=== PATIENT | female | born 1965 | race Caucasian/White ===

== ENCOUNTER 2017-10-01 15:43 | Inpatient (IN) | payer OTHER ==
--- NOTE | 2017-10-01 15:56 | PDOC ---
History of Present Illness - General Stated Complaint: DIFFICULTY BREATHING Time Seen by Provider: 10/01/17 15:54 - History of Present Illness Initial Comments: 10/01/17 15:54 52 yo F with h/o DM, Morbid Obesity, schitzophrenia, CHF, hypothyroidism, COPD , chronic resp dz. unspecified hypoxic or hypercapnic, s/p trachesotomy x 2 years BIBA from [facility] with SOB. Pt. alert and non verbal, but communicative at baseline. Is able to endorse yes/no responses. Endorses SOB and [place] beginning this morning. Non mobile, wheelchair bound. Normally 3 liter 02 baseline, with increase to 4 liters within past 12 hours. Normal home duoneb use daily and Lasix 40 mg BID. Denies N/V, F/C, CP, pleuritic chest pain , cough, palpitations, ext. swelling, lightheadedness,weakness, sensory disturbances. Recently d/c'd at [facility] following 4 day admission 2 days ago. Denies h/o IN, stents, or CABG.Denies h/o tobacco use. Past History - Past Medical History Allergies/Adverse Reactions: Allergies Allergy/AdvReac Type Severity Reaction Status Date / Time No Known Allergies Allergy Unverified 10/01/17 21:23 Home Medications: Ambulatory Orders Albuterol 0.083% Nebulizer Teresa [Ventolin 0.083% Nebulizer Soln -] 1 amp NEB Q4H PRN #0 amp 05/22/16 Acetaminophen [Tylenol .Regular Strength -] 650 mg GT Q6H PRN 10/01/17 Albuterol Sulfate Inhaler - [Ventolin Hfa Inhaler -] 2 inh PO Q6H PRN 10/01/17 Aripiprazole 5 mg GT HS 10/01/17 Aspirin 81 mg GT DAILY 10/01/17 Budesonide/Formeterol Fumarate [SYMBICORT 160/4.5mcg -] 1 puff IH BID 10/01/17 Chlorhexidine Gluconate 15 ml MM BID 10/01/17 Escitalopram Oxalate [Lexapro -] 20 mg PO DAILY 10/01/17 Furosemide 20 mg GT DAILY 10/01/17 Gabapentin Liquid [Neurontin Oral Liquid -] 600 mg PO BID 10/01/17 Hydrocortisone 2.5% Topical Cr [Anusol-Hc -] 1 applic CA BID 10/01/17 Insulin Lispro [Humalog] unit SQ TID 10/01/17 Lactobacillus Acidophilus [Bacid -] 1 each GT BID 10/01/17 Levothyroxine [Synthroid -] 25 mcg GT DAILY 10/01/17 Mirtazapine 15 mg GT HS 10/01/17 Montelukast Sodium [Singulair] 10 mg GT DAILY 10/01/17 Omeprazole 40 mg GT DAILY 10/01/17 Paroxetine HCl 10 mg GT HS 10/01/17 Trazodone HCl 50 mg GT HS 10/01/17 Cardiac Disorders: (heart failure- 2014) COPD: Yes CHF: Yes Psychiatric Problems: Yes (bipolar) Seizures: Yes Thyroid Disease: Yes - Suicide/Smoking/Psychosocial Hx Smoking Status: No Smoking History: Current every day smoker Have you smoked in the past 12 months: Yes Number of Cigarettes Smoked Daily: 5 If you are a former smoker, when did you quit?: 2013 'Breaking Loose' booklet given: 05/11/16 Hx Alcohol Use: No Drug/Substance Use Hx: Yes (MARIJUANA) Substance Use Type: Marijuana Hx Substance Use Treatment: No Review of Systems - Review of Systems Comments:: 10/01/17 15:54 GENERAL/CONSTITUTIONAL: No fever or chills. No weakness. HEAD, EYES, EARS, NOSE AND THROAT: No change in vision. No ear pain or discharge. No sore throat. CARDIOVASCULAR: + SOB. No chest pain. RESPIRATORY: No cough, wheezing, or hemoptysis. GASTROINTESTINAL: No nausea, vomiting, diarrhea or constipation. GENITOURINARY: No dysuria, frequency, or change in urination. MUSCULOSKELETAL: No joint or muscle swelling or pain. No neck or back pain. SKIN: No rash NEUROLOGIC: No headache, vertigo, loss of consciousness, or change in strength/ sensation. ENDOCRINE: No increased thirst. No abnormal weight change HEMATOLOGIC/LYMPHATIC: No anemia, easy bleeding, or history of blood clots. ALLERGIC/IMMUNOLOGIC: No hives or skin allergy. *Physical Exam - Physical Exam Comments: 10/01/17 15:55 GENERAL: Awake, alert, and fully oriented, in no acute distress HEAD: No signs of trauma, normocephalic, atraumatic EYES: PERRLA, EOMI, sclera anicteric, conjunctiva clear ENT: Auricles normal inspection, hearing grossly normal, nares patent, oropharynx clear without exudates. Moist mucosa NECK: Trach in place. Normal ROM, supple, no lymphadenopathy, JVD, or masses LUNGS: Coarse diffuse lung sounds with BL exp/insp wheezing and RLL decreased breath sounds. LLL rales. HEART: Regular rate and rhythm, normal S1 and S2, no murmurs, rubs or gallops, peripheral pulses normal and equal bilaterally. ABDOMEN: Soft, distended, nontender, normoactive bowel sounds. No guarding, no rebound. No masses EXTREMITIES : Normal inspection, Normal range of motion, no edema. No clubbing or cyanosis. NEUROLOGICAL: Cranial nerves II through XII grossly intact. Normal speech, no focal sensorimotor deficits SKIN: Warm, Dry, normal turgor, no rashes or lesions noted ED Treatment Course - LABORATORY CBC & Chemistry Diagram: 10/02/17 06:20 10/02/17 06:20 Medical Decision Making - Medical Decision Making 10/01/17 16:41 52 yo F with h/o Schizophrenia, DM, Peg Tube hypothyroidism,Morbid Obesity, Obesity Hypoventilation Syndromes CHF, COPD, chronic resp dz.unspecified hypoxic or hypercapnic, s/p trachesotomy x 1-2 years BIBA from [facility] with SOB, hypoxia RA~80 %, actively being bagged by trach, alert and non verbal, but communicative at baseline. Duonebs x 1. Now stable on BIPAP with vent settings PEEP~5, TV 450, % O2 50, R 10 and endorses yes/no responses. Endorses SOB and [place] beginning this morning. Non mobile, wheelchair bound. Normally 3 liter 02 baseline, with increase to 4 liters within past 12 hours. Normal home duoneb use daily and Lasix 40 mg BID. Denies N/V, F/C, CP, pleuritic chest pain, cough, palpitations, ext. swelling, lightheadedness, weakness, sensory disturbances. Recently d/c'd at [facility] following 4 day admission 2 days ago. Denies cardiac hx IN/CAD, h/o tobacco use. Physical exam with trach tube in place and physical exam with diminished breath sounds at RLL and diffuse coarse BS, with BL insp/exp rhonci. Differential for pt. includes COPD exaccerbation, PNA, Acute on Chronic CHF exaccerbation. Per Medicine physician at [facility]. was d/c'd on 09/26 following 4 day admission for PNA, an acute resp failure. Was given levauqin, vanc. and later switched to unasyn following sputum culture pos for Proteus Mirabilis. D/cd on Augmentin. Physician states that she typically has resp.difficulty following vent weaning/ discharge with improvement in the following days after symptom onset. Patient now stable on BiPap ED Course: CBC, CMP, Cardiac Pr, BNP, aPTT, PT/INR, Lactic Acid Blood Cx, Urine Cx, EKG, CXR 10/01/17 17:35 CBC: Unremarkable. 10/01/17 18:15 Methylpred 125 mg 10/01/17 18:21 VB.29/ 96.2/ 27.7/ 44.7 10/01/17 18:24 Trop: Neg CXR: Decreased pulm and pleural changes. Patient admitted Dr. Kendra garcia/surg inpt. for acute on chronic resp failure/ COPD exacerbation. *DC/Admit/Observation/Transfer Diagnosis at time of Disposition: COPD exacerbation - Discharge Dispostion Admit: Yes - Referrals - Patient Instructions - Post Discharge Activity
[2017-10-01 16:12] VITALS: BMI 46.8
--- NOTE | 2017-10-01 16:18 | PDOC ---
Attending Attestation - Resident Resident Name: Junior Torres - ED Attending Attestation I have performed the following: I have examined & evaluated the patient, The case was reviewed & discussed with the resident, I agree w/resident's findings & plan, Exceptions are as noted - HPI HPI: 10/01/17 16:19 52y F history of hypertension, thyroid disease, COPD status post tracheostomy secondary to respiratory failure, on chronic O2, not then dependent presents for evaluation of shortness of breath. The patient notes she was recently admitted for evaluation of a similar complaint at [facility] and was discharged 4 days ago. The patient states that she was feeling well the last several days beside mild nausea she notes that immediate prior to presentation she started feeling shortness of breath she denies any associated chest pain, abdominal pain, fevers, diaphoresis, leg swelling, hemoptysis. On arrival the patient was being bagged on the trach by EMS she was in no acute distress the patient per EMS O2 sat was ranging in the 80s to 90s. Vitals were otherwise normal per EMS The patient's exam on arrival reveal diminished breath sounds in the right lung , scattered wheezing diffusely with rhonchi. Abdomen is obese no focal tenderness No edema in the lower extremities The patient was placed on BiPAP upon arrival with good management of her symptoms Differential for the patient's symptoms includes COPD exacerbation, possible pleural effusion/infection Will obtain further information from [facility] regarding recent hospitalization Dispo pending 10/01/17 17:43 The patient is currently on the vent she is in no acute distress she is nontachypneic, appears comfortable. Her chest x-ray reveals a small effusion plus minus pneumonia versus atelectasis. No leukocytosis no clinical signs of pneumonia Dr. Torres had discussed with [facility] apparently the patient was admitted and treated for pneumonia was on Levaquin and vancomycin and then changed over to augmentin. awaiting rest of his labs but will consier obs vs admit depending on how th ept appears with pulm consult - Physicial Exam PE: 10/07/17 15:34 see above - Medical Decision Making 10/07/17 15:35 magaly santos
[2017-10-01 17:21] LABS: BASO % 0.2 % (0-2.0); EOS % 0.4 % (0-4.5); HEMATOCRIT 33.8 % (32.4-45.2); HEMOGLOBIN 11.2 GM/dL (10.7-15.3); LYMPH % 11.1 % (8-40); MCH 29.7 pg (25.7-33.7); MCHC 33.1 g/dl (32.0-36.0); MEAN CELL VOLUME 89.8 fl (80-96); MEAN PLT VOLUME 7.5 fl (7.5-11.1); MONO % 4.9 % (3.8-10.2); NEUT % 83.4 % (42.8-82.8); PLATELET COUNT 222 K/MM3 (134-434); RBC 3.76 M/mm3 (3.60-5.2); RDW 16.7 % (11.6-15.6)
[2017-10-01 17:35] LABS: INR 1.1 (0.82-1.09); PROTHROMBIN TIME (PATIENT) 12.4 SEC (9.98-11.88)
[2017-10-01 17:37] LABS: ACTIVATED PTT 28.8 SECONDS (26.9-34.4)
[2017-10-01 17:43] LABS: MAGNESIUM 1.7 mg/dL (1.8-2.4)
[2017-10-01 17:45] LABS: ALK PHOS 93 U/L (45-117)
[2017-10-01 17:46] LABS: VENOUS PH 7.29 (7.32-7.42)
[2017-10-01 17:47] LABS: VENOUS PO2 27.7 mmHg (28-48)
[2017-10-01 17:50] LABS: VENOUS PC02 96.2 mmHg (38-52)
[2017-10-01 17:52] LABS: ALBUMIN 2.8 g/dl (3.4-5.0); BILIRUBIN,TOTAL 0.3 mg/dL (0.2-1.0); BLOOD UREA NITROGEN 10 mg/dL (7-18); CALCIUM 8.5 mg/dL (8.5-10.1); CHLORIDE 94 mmol/L (98-107); CREATININE 0.3 mg/dL (0.55-1.02); GLUCOSE,RANDOM 64 mg/dL (74-106); POTASSIUM 4.8 mmol/L (3.5-5.1); SGOT/AST 14 U/L (15-37); SGPT/ALT 28 U/L (12-78); SODIUM 142 mmol/L (136-145); TOT PROT 6.5 g/dl (6.4-8.2)
[2017-10-01] MEDS ORDERED: methylPREDNISolone NA SUCC 125 MG/2 ML VIAL IVPUSH ONE (18:02)
[2017-10-01 18:20] LABS: ANION GAP 0 (8-16); CO2 48 mmol/L (21-32)
[2017-10-01] MEDS ORDERED: SODIUM CHLORIDE 500 ML IV STA (18:21)
[2017-10-01] MEDS ORDERED: methylPREDNISolone NA SUCC 125 MG/2 ML VIAL ONE (18:24)
[2017-10-01 18:50] LABS: URINE APPEARANCE CLEAR; URINE BILIRUBIN NEGATIVE (NEGATIVE); URINE BLOOD NEGATIVE (NEGATIVE); URINE COLOR YELLOW; URINE GLUCOSE (UA) NEGATIVE (NEGATIVE); URINE KETONE NEGATIVE (NEGATIVE); URINE LEUK ESTERASE TRACE (NEGATIVE); URINE NITRITE NEGATIVE (NEGATIVE); URINE PROTEIN NEGATIVE (NEGATIVE); URINE UROBILINOGEN NEGATIVE mg/dL (0.2-1.0)
[2017-10-01 19:02] LABS: EPI CELLS RARE /HPF (FEW); URINE BACTERIA RARE /hpf (NONE SEEN); URINE MUCUS MANY
--- NOTE | 2017-10-01 21:24 | HP ---
CHIEF COMPLAINT: SOB, hypoxia PCP: [facility] HISTORY OF PRESENT ILLNESS: This is a 52 year old female with a significant past medical history of chronic hypercapneic, hypoxic respiratory failure, trach dependent but not vent depentdent who presented to the ED from [facility] with SOB and ox sat of 80%. Pt reports feeling much better now on vent. Of note, pt was recently hospitalized 09/22-09/26 at [facility] for pna, sputum grew P. Mirabilis and she was on unasyn, dc home on augmentin. [facility] med list does not include augmentin although pt may have completed recommended course. Pt reports that she was dc to [facility] on trach collar only, not vent. [facility] paperwork has vent settings on it, unclear if pt was on vent at [facility]. Pt reports feeling much better on vent here. ER course was notable for: (1) pH 7.29, pCO2 96.2 on vbg (2) WBC 8.0 (3) XCR with blunting of costophrenic angles Recent Travel: pt denies PAST MEDICAL HISTORY: chronic respiratory failure, COPD, CHF, morbid obesity, DM, hypothyoid, bipolar disorder PAST SURGICAL HISTORY: PEG, trach Social History: Smoking: unk Alcohol: unk Drugs: unk Family History: unk Allergies No Known Allergies Allergy (Unverified 10/01/17 21:23) HOME MEDICATIONS: 3 Medication Instructions Recorded Albuterol 0.083% Nebulizer Teresa 1 amp NEB Q4H PRN #0 amp 05/22/16 [Ventolin 0.083% Nebulizer Soln -] Acetaminophen [Tylenol .Regular 650 mg GT Q6H PRN 10/01/17 Strength -] Albuterol Sulfate Inhaler - 2 inh PO Q6H PRN 10/01/17 [Ventolin Hfa Inhaler -] Aripiprazole 5 mg GT HS 10/01/17 Aspirin 81 mg GT DAILY 10/01/17 Budesonide/Formeterol Fumarate 1 puff IH BID 10/01/17 [SYMBICORT 160/4.5mcg -] Chlorhexidine Gluconate 15 ml MM BID 10/01/17 Escitalopram Oxalate [Lexapro -] 20 mg PO DAILY 10/01/17 Furosemide 20 mg GT DAILY 10/01/17 Gabapentin Liquid [Neurontin Oral 600 mg PO BID 10/01/17 Liquid -] Hydrocortisone 2.5% Topical Cr 1 applic OR BID 10/01/17 [Anusol-Hc -] Insulin Lispro [Humalog] unit SQ TID 10/01/17 Lactobacillus Acidophilus [Bacid -] 1 each GT BID 10/01/17 Levothyroxine [Synthroid -] 25 mcg GT DAILY 10/01/17 Mirtazapine 15 mg GT HS 10/01/17 Montelukast Sodium [Singulair] 10 mg GT DAILY 10/01/17 Omeprazole 40 mg GT DAILY 10/01/17 Paroxetine HCl 10 mg GT HS 10/01/17 Trazodone HCl 50 mg GT HS 10/01/17 REVIEW OF SYSTEMS CONSTITUTIONAL: Absent: fever, chills, diaphoresis, generalized weakness, malaise, loss of appetite, weight change HEENT: Absent: rhinorrhea, nasal congestion, throat pain, throat swelling, difficulty swallowing, mouth swelling, ear pain, eye pain, visual changes CARDIOVASCULAR: Absent: chest pain, syncope, palpitations, irregular heart rate, lightheadedness , peripheral edema RESPIRATORY: Present: shortness of breath Absent: cough, orthopnea, wheezing, stridor, hemoptysis GASTROINTESTINAL: Absent: abdominal pain, abdominal distension, nausea, vomiting, diarrhea, constipation, melena, hematochezia GENITOURINARY: Absent: dysuria, frequency, urgency, hesitancy, hematuria, flank pain, genital pain MUSCULOSKELETAL: Absent: myalgia, arthralgia, joint swelling, back pain, neck pain SKIN: Absent: rash, itching, pallor HEMATOLOGIC/IMMUNOLOGIC: Absent: easy bleeding, easy bruising, lymphadenopathy, frequent infections ENDOCRINE: Absent: unexplained weight gain, unexplained weight loss, heat intolerance, cold intolerance NEUROLOGIC: Absent: headache, focal weakness or paresthesias, dizziness, unsteady gait, seizure, mental status changes, bladder or bowel incontinence PSYCHIATRIC: Absent: anxiety, depression, suicidal or homicidal ideation, hallucinations. PHYSICAL EXAMINATION Vital Signs - 24 hr 3 10/01/17 10/01/17 16:00 16:06 Temperature 98.5 F Pulse Rate 85 Respiratory 13 20 Rate Blood Pressure 96/48 O2 Sat by Pulse 92 L Oximetry (%) GENERAL: Awake, alert, and fully oriented, in no acute distress. HEAD: Normal with no signs of trauma. EYES: Pupils equal, round and reactive to light, extraocular movements intact, sclera anicteric, conjunctiva clear. No lid lag. EARS, NOSE, THROAT: Ears normal, nares patent, oropharynx clear without exudates. Moist mucous membranes. NECK: Normal range of motion, supple without lymphadenopathy, JVD, or masses. LUNGS: Breath sounds equal, diminished bilat bases + scattered rhonchi. No wheezes, and no crackles. No accessory muscle use. HEART: Regular rate and rhythm, normal S1 and S2 without murmur, rub or gallop. ABDOMEN: Soft, nontender, not distended, normoactive bowel sounds, no guarding, no rebound, no masses. No hepatomegaly or splenomegaly. MUSCULOSKELETAL: Normal range of motion at all joints. No bony deformities or tenderness. No CVA tenderness. UPPER EXTREMITIES: 2+ pulses, warm, well-perfused. No cyanosis. No clubbing. No peripheral edema. LOWER EXTREMITIES: 2+ pulses, warm, well-perfused. No calf tenderness. No peripheral edema. NEUROLOGICAL: Cranial nerves II-XII intact. Normal speech. Normal gait. PSYCHIATRIC: Cooperative. Good eye contact. Appropriate mood and affect. SKIN: Warm, dry, normal turgor, no rashes or lesions noted, normal capillary refill. Laboratory Results - last 24 hr 3 10/01/17 10/01/17 10/01/17 16:30 16:30 16:30 WBC 8.0 D RBC 3.76 D Hgb 11.2 D Hct 33.8 D MCV 89.8 MCH 29.7 MCHC 33.1 RDW 16.7 H Plt Count 222 MPV 7.5 Neutrophils % 83.4 H D Lymphocytes % 11.1 D Monocytes % 4.9 Eosinophils % 0.4 Basophils % 0.2 PT with INR 12.40 H INR 1.10 PTT (Actin FS) 28.8 VBG pH 7.29 L POC VBG pCO2 96.2 H* POC VBG pO2 27.7 L D Mixed VBG HCO3 44.7 H* Sodium Potassium Chloride Carbon Dioxide Anion Gap BUN Creatinine Creat Clearance w eGFR Random Glucose Lactic Acid Calcium Magnesium Total Bilirubin AST ALT Alkaline Phosphatase Troponin I Total Protein Albumin Urine Color Urine Appearance Urine pH Ur Specific [place] Urine Protein Urine Glucose (UA) Urine Ketones Urine Blood Urine Nitrite Urine Bilirubin Urine Urobilinogen Ur Leukocyte Esterase Urine WBC (Auto) Urine RBC (Auto) Ur Epithelial Cells Urine Bacteria Urine Mucus 3 10/01/17 10/01/17 10/01/17 16:30 17:10 17:10 WBC RBC Hgb Hct MCV MCH MCHC RDW Plt Count MPV Neutrophils % Lymphocytes % Monocytes % Eosinophils % Basophils % PT with INR INR PTT (Actin FS) VBG pH POC VBG pCO2 POC VBG pO2 Mixed VBG HCO3 Sodium 142 Potassium 4.8 Chloride 94 L Carbon Dioxide 48 H Anion Gap 0 L BUN 10 Creatinine 0.3 L Creat Clearance w eGFR > 60 Random Glucose 64 L Lactic Acid 1.2 Calcium 8.5 Magnesium 1.7 L Total Bilirubin 0.3 D AST 14 L ALT 28 Alkaline Phosphatase 93 Troponin I < 0.02 Total Protein 6.5 Albumin 2.8 L Urine Color Urine Appearance Urine pH Ur Specific [place] Urine Protein Urine Glucose (UA) Urine Ketones Urine Blood Urine Nitrite Urine Bilirubin Urine Urobilinogen Ur Leukocyte Esterase Urine WBC (Auto) Urine RBC (Auto) Ur Epithelial Cells Urine Bacteria Urine Mucus 3 Urine Color Yellow 10/01/17 18:40 Urine Appearance Clear 10/01/17 18:40 Urine pH 5.0 (5.0-8.0) 10/01/17 18:40 Ur Specific [place] 1.019 (1.001-1.035) 10/01/17 18:40 Urine Protein Negative (NEGATIVE) 10/01/17 18:40 Urine Glucose (UA) Negative (NEGATIVE) 10/01/17 18:40 Urine Ketones Negative (NEGATIVE) 10/01/17 18:40 Urine Blood Negative (NEGATIVE) 10/01/17 18:40 Urine Nitrite Negative (NEGATIVE) 10/01/17 18:40 Urine Bilirubin Negative (NEGATIVE) 10/01/17 18:40 Ur Leukocyte Esterase Trace (NEGATIVE) 10/01/17 18:40 Urine WBC (Auto) 5 Urine RBC (Auto) 2 Ur Epithelial Cells Rare /HPF (FEW) 10/01/17 18:40 Urine Bacteria Rare /hpf (NONE SEEN) 10/01/17 18:40 Urine Mucus Many 10/01/17 18:40 Radiology REports CXR-official read pending- blunting of costophrenic angles noted by me. ASSESSMENT/PLAN: 52yF with PMH chronic respiratory failure, COPD, CHF, morbid obesity, DM, hypothyoid, bipolar disorder presented to the ED with SOB, hypoxia. Hypercapneic, hypoxic respiratory failure, recent PNA - cont vent, current settings, 450, rate 10, Peep 5 - ABG in am - will start unasyn, unclear if pt finished complete course of treatment. CHF - lasix 40mg IVP x 1 - reassess need for continued IV vs po lasix in am DM - BGM AC/HS with novolog sliding scale - pt does not appear to be on any hypoglycemics at [facility] other than humalog sliding scale - check A1C in am DVT PPX - heparin tid FEN - hold IVF for now - bmp in am - npo for now, pt reports that she takes food by mouth, in addition to GT feed, will stick with GT only for now. Dispo: pt currently requires inpatient management of her emergent condition. Visit type - Emergency Visit Emergency Visit: Yes ED Registration Date: 10/01/17 Care time: The patient presented to the Emergency Department on the above date and was hospitalized for further evaluation of their emergent condition. - New Patient This patient is new to me today: Yes Date on this admission: 10/01/17 - Critical Care Critical Care patient: No Hospitalist Screening - Colonoscopy Questionnaire Colonoscopy Questionnaire: Colonoscopy Questionnaire - Patient: 50 - 75 years old and never had a screening colonoscopy: Unknown History of colon or rectal polyps, or CA: No History of IBD, Crohn's disease or UC: No History of abdominal radiation therapy as a child: No - Relative: 1 with colon or rectal CA, or polyps at age 60 or younger: Unknown Colon or rectal CA diagnosed at age 45 or younger: Unknown Multiple relatives with colon or rectal CA: Unknown - Outcome: Screening Result: Negative Screen
[2017-10-01] MEDS: ARIPiprazole 5 MG TABLET (FP) NR SCH (23:10)
[2017-10-01] MEDS: traZODone HCL 50 MG TABLET (FP) NR SCH (23:30)
[2017-10-01] MEDS: CHLORHEXIDINE GLUCONATE 0.12% 15ML CUP MM SCH (23:30)
[2017-10-01] MEDS ORDERED: FUROSEMIDE 40 MG/4 ML INJECTABLE VIAL IVPUSH ONE (23:30)
[2017-10-01] MEDS: PARoxetine HCL 10 MG TABLET (FP) NR SCH (23:30)
[2017-10-01] MEDS: MIRTAZAPINE 15 MG TABLET (FP) GT SCH (23:30)
[2017-10-01] MEDS: GABAPENTIN 250 MG/5 ML ORAL SOLUTION, 470 ML BOTTLE GT SCH (23:30)
[2017-10-01] MEDS: LACTOBACILLUS ACIDOPHILUS 1 EACH TAB (FP) GT SCH (23:30)
[2017-10-01] MEDS: BUDESONIDE/FORMETEROL FUMARATE 160/4.5 mcg INHALER IH SCH (23:30)
[2017-10-02] MEDS: HYDROCORTISONE 2.5% TOPICAL CREAM 30 GM TUBE RC SCH ×2 (01:40→09:30)
[2017-10-02] MEDS: AMPICILLIN NA/SULBACTAM NA 3 GM in SODIUM CHLORIDE 100 ML IVPB SCH ×2 (02:18→23:39)
[2017-10-02] MEDS: INSULIN SLIDING SCALE (NOVOLOG) 1 VIAL SQ SCH ×5 (05:28→22:17)
[2017-10-02] MEDS ORDERED: HEPARIN NA (PORCINE) 5,000 UNITS/ML 1ML VIAL ONE (06:43)
[2017-10-02] MEDS: LEVOTHYROXINE NA 25 MCG TABLET (FP) GT SCH (06:59)
[2017-10-02] MEDS: HEPARIN NA (PORCINE) 5,000 UNITS/ML 1ML VIAL SQ SCH ×3 (06:59→22:06)
[2017-10-02 07:00] LABS: BASO % 0.1 % (0-2.0); HEMATOCRIT 31.2 % (32.4-45.2); HEMOGLOBIN 10.3 GM/dL (10.7-15.3); LYMPH % 11.3 % (8-40); MCH 29.5 pg (25.7-33.7); MCHC 32.9 g/dl (32.0-36.0); MEAN CELL VOLUME 89.5 fl (80-96); MEAN PLT VOLUME 7.6 fl (7.5-11.1); MONO % 1.9 % (3.8-10.2); NEUT % 86.7 % (42.8-82.8); PLATELET COUNT 213 K/MM3 (134-434); RBC 3.48 M/mm3 (3.60-5.2); RDW 16.8 % (11.6-15.6); WHITE BLOOD COUNT 9.5 K/mm3 (4.0-10.0)
[2017-10-02 07:01] LABS: ANION GAP 10 (8-16); BLOOD UREA NITROGEN 13 mg/dL (7-18); CHLORIDE 95 mmol/L (98-107); CO2 38 mmol/L (21-32); CREATININE 0.3 mg/dL (0.55-1.02); GLUCOSE,RANDOM 87 mg/dL (74-106); MAGNESIUM 1.8 mg/dL (1.8-2.4); PHOSPHOROUS 3.2 mg/dL (2.5-4.9); POTASSIUM 4.6 mmol/L (3.5-5.1); SODIUM 143 mmol/L (136-145)
[2017-10-02] MEDS ORDERED: AMPICILLIN NA/SULBACTAM NA 3 GM in SODIUM CHLORIDE 100 ML IVPB SCH (09:00)
[2017-10-02] MEDS ORDERED: MONTELUKAST NA 10 MG TABLET ONE (09:20)
[2017-10-02] MEDS: BUDESONIDE/FORMETEROL FUMARATE 160/4.5 mcg INHALER IH SCH ×2 (09:30→22:06)
[2017-10-02] MEDS: PANTOPRAZOLE SOD 40 MG SUSPENSION PACKET GT SCH (09:30)
[2017-10-02] MEDS: MONTELUKAST NA 10 MG TABLET GT SCH (09:30)
[2017-10-02] MEDS: FUROSEMIDE 20 MG TABLET (FP) GT SCH (09:30)
[2017-10-02] MEDS: ESCITALOPRAM OXALATE 20 MG TABLET (FP) GT SCH (09:30)
[2017-10-02] MEDS: LACTOBACILLUS ACIDOPHILUS 1 EACH TAB (FP) GT SCH ×2 (09:30→22:05)
[2017-10-02] MEDS: CHLORHEXIDINE GLUCONATE 0.12% 15ML CUP MM SCH ×2 (09:30→22:55)
[2017-10-02] MEDS: GABAPENTIN 250 MG/5 ML ORAL SOLUTION, 470 ML BOTTLE GT SCH ×2 (09:30→22:05)
[2017-10-02] MEDS: ASPIRIN 81 MG CHEWABLE TABLETS GT SCH (09:30)
[2017-10-02] MEDS: ALBUTEROL SO4 0.083% IH SOL 2.5 MG/3 ML VIAL.NEB. NEB PRN (10:05)
--- NOTE | 2017-10-02 10:37 | EKG ---
Test Reason : Blood Pressure : / mmHG Vent. Rate : 072 BPM Atrial Rate : 072 BPM P-R Int : 162 ms QRS Dur : 092 ms QT Int : 394 ms P-R-T Axes : 046 000 033 degrees QTc Int : 431 ms NORMAL SINUS RHYTHM INCOMPLETE RIGHT BUNDLE BRANCH BLOCK POOR R WAVE PROGRESSION Confirmed by HUONG ALEGRE MD ([id number]) on 10/02/2017 10:36:45 AM Referred By: Confirmed By:HUONG ALEGRE MD
--- NOTE | 2017-10-02 12:59 | CON.ID ---
Consult Consult Specialty:: infectious diseases Reason for Consultation:: pneumonia - History of Present Illness Chief Complaint: sob History of Present Illness: 52 year old female with a significant past medical history of chronic hypercapneic, hypoxic respiratory failure, trach dependent but not vent depentdent who presented to the ED from [facility] with SOB and ox sat of 80%. Pt reports feeling much better now on vent. Of note, pt was recently hospitalized 09/22-09/26 at [facility] for pna, sputum grew P. Mirabilis Patient was started on unasyn which was subsequently switched to augmentin on discharge patient states that she started feeling shortness of breath and now on vent she feels much better she denies any other symptoms of chest pain, abdominal pain, fevers, diaphoresis, leg swelling, hemoptysis. Patient is at [facility] and is on a trach collar. - History Source History Provided By: Patient - Past Medical History Pulmonary: Yes: COPD Gastrointestinal: Yes: Other (colon polyps) Psych: Yes: Bipolar - Alcohol/Substance Use Hx Alcohol Use: No History of Substance Use: reports: Marijuana - Smoking History Smoking history: Current every day smoker Have you smoked in the past 12 months: Yes Aproximately how many cigarettes per day: 5 If you are a former smoker, when did you quit?: 2013 Home Medications - Allergies Allergies/Adverse Reactions: Allergies Allergy/AdvReac Type Severity Reaction Status Date / Time No Known Allergies Allergy Unverified 10/01/17 21:23 - Home Medications Home Medications: Ambulatory Orders Albuterol 0.083% Nebulizer Teresa [Ventolin 0.083% Nebulizer Soln -] 1 amp NEB Q4H PRN #0 amp 05/22/16 Acetaminophen [Tylenol .Regular Strength -] 650 mg GT Q6H PRN 10/01/17 Albuterol Sulfate Inhaler - [Ventolin Hfa Inhaler -] 2 inh PO Q6H PRN 10/01/17 Aripiprazole 5 mg GT HS 10/01/17 Aspirin 81 mg GT DAILY 10/01/17 Budesonide/Formeterol Fumarate [SYMBICORT 160/4.5mcg -] 1 puff IH BID 10/01/17 Chlorhexidine Gluconate 15 ml MM BID 10/01/17 Escitalopram Oxalate [Lexapro -] 20 mg PO DAILY 10/01/17 Furosemide 20 mg GT DAILY 10/01/17 Gabapentin Liquid [Neurontin Oral Liquid -] 600 mg PO BID 10/01/17 Hydrocortisone 2.5% Topical Cr [Anusol-Hc -] 1 applic ND BID 10/01/17 Insulin Lispro [Humalog] unit SQ TID 10/01/17 Lactobacillus Acidophilus [Bacid -] 1 each GT BID 10/01/17 Levothyroxine [Synthroid -] 25 mcg GT DAILY 10/01/17 Mirtazapine 15 mg GT HS 10/01/17 Montelukast Sodium [Singulair] 10 mg GT DAILY 10/01/17 Omeprazole 40 mg GT DAILY 10/01/17 Paroxetine HCl 10 mg GT HS 10/01/17 Trazodone HCl 50 mg GT HS 10/01/17 Review of Systems - Review of Systems Constitutional: reports: No Symptoms Eyes: reports: No Symptoms HENT: reports: No Symptoms Neck: reports: No Symptoms Cardiovascular: reports: No Symptoms Respiratory: reports: SOB Gastrointestinal: reports: No Symptoms Genitourinary: reports: No Symptoms Musculoskeletal: reports: No Symptoms Integumentary: reports: No Symptoms Neurological: reports: No Symptoms Endocrine: reports: No Symptoms Hematology/Lymphatic: reports: No Symptoms Psychiatric: reports: No Symptoms Physical Exam Vital Signs: Vital Signs Temperature 99.1 F 10/02/17 09:30 Pulse Rate 56 L 10/02/17 09:35 Respiratory Rate 11 L 10/02/17 09:33 Blood Pressure 125/65 10/02/17 09:30 O2 Sat by Pulse Oximetry (%) 98 10/02/17 09:35 Constitutional: Yes: Well Nourished, No Distress, Calm, Obese Eyes: Yes: Conjunctiva Clear HENT: Yes: Atraumatic, Other (trach in place) Neck: Yes: Supple, Other (tracheostomy) Cardiovascular: Yes: Regular Rate and Rhythm Respiratory: Yes: Mechanically Ventilated, Poor Air Entry Gastrointestinal: Yes: Normal Bowel Sounds, Soft Musculoskeletal: Yes: WNL Edema: LLE: Trace, RLE: Trace Neurological: Yes: Alert, Oriented Psychiatric: Yes: Alert, Oriented Labs: CBC, BMP 10/02/17 06:20 10/02/17 06:20 Imaging - Results Chest X-ray: Report Reviewed, Image Reviewed Assessment/Plan Problem List - Problems (1) Acute respiratory failure Code(s): J96.00 - ACUTE RESPIRATORY FAILURE, UNSP W HYPOXIA OR HYPERCAPNIA (2) COPD exacerbation Code(s): J44.1 - CHRONIC OBSTRUCTIVE PULMONARY DISEASE W (ACUTE) EXACERBATION (3) DVT prophylaxis Code(s): MNA7225 - (4) Morbid obesity Code(s): E66.01 - MORBID (SEVERE) OBESITY DUE TO EXCESS CALORIES (5) Polysubstance (excluding opioids) dependence Code(s): F19.20 - OTHER PSYCHOACTIVE SUBSTANCE DEPENDENCE, UNCOMPLICATED 6) R/O pneumonia looking at the patient symptoms and imaging studies i do not see gross evidence of infection but she was very recently treated for pneumonia it is possible that the patient might not have finished the course and her recent symptoms might be due to untreated pneumonia she is on vent now requiring increased oxygen support could be very well due to infectious process plan will start her on zosyn close monitoring if lot of secretions please send sputum cx resp support await for all cx reports
[2017-10-02] MEDS ORDERED: PIPERACILLIN/TAZOB 3.375 GM 3.375 GM in DEXTROSE 5%-WATER - 50 ML IVPB SCH (14:15)
--- NOTE | 2017-10-02 15:04 | PN ---
Progress Note (short form) - Note Progress Note: Medical coverage for Dr. Josie Rojo Assessment: The patient was seen and examined at the bedside, she states she does not want to be on the vent. She also reports that she is hungry Current Medications Generic Name Dose Route Start Last Admin Trade Name Freq PRN Reason Stop Dose Admin Albuterol Sulfate 1 amp 10/01/17 21:52 10/02/17 10:05 Ventolin 0.083% Nebulizer Soln - NEB 1 amp Q4H PRN Administration SHORT OF BREATH/WHEEZING Aripiprazole 5 mg 10/01/17 22:00 10/01/17 23:10 Abilify NR 5 mg HS NOELLE Administration Aspirin 81 mg 10/02/17 10:00 10/02/17 09:30 Asa - GT 81 mg DAILY NOELLE Administration Budesonide/Formoterol Fumarate 1 puff 10/01/17 22:00 10/02/17 09:30 Symbicort 160/4.5mcg - IH 1 mcg BID NOELLE Administration Chlorhexidine Gluconate 15 ml 10/01/17 22:00 10/02/17 09:30 Peridex - MM 15 ml BID NOELLE Administration Escitalopram Oxalate 20 mg 10/02/17 10:00 10/02/17 09:30 Lexapro - GT 20 mg DAILY NOELLE Administration Furosemide 20 mg 10/02/17 10:00 10/02/17 09:30 Lasix - GT 20 mg DAILY NOELLE Administration Gabapentin 600 mg 10/01/17 22:00 10/02/17 09:30 Neurontin Oral Liquid - GT 600 mg BID NOELLE Administration Heparin Sodium (Porcine) 5,000 unit 10/02/17 06:00 10/02/17 13:53 Heparin - SQ 5,000 unit TID NOELLE Administration Hydrocortisone 1 applic 10/01/17 22:00 10/02/17 09:30 Anusol 2.5% Hc Cream - RC 1 appful BID NOELLE Administration Piperacillin Sod/Tazobactam 50 mls @ 100 mls/hr 10/02/17 18:00 Sod 3.375 gm/ Dextrose IVPB Q8H-IV NOELLE Insulin Aspart 1 vial 10/01/17 22:00 10/02/17 05:28 Novolog Vial Sliding Scale - SQ Not Given HS NOELLE Protocol Insulin Aspart 1 vial 10/02/17 07:00 10/02/17 13:52 Novolog Vial Sliding Scale - SQ Not Given TIDAC NOELLE Protocol Lactobacillus Acidophilus 1 tab 10/01/17 22:00 10/02/17 09:30 Bacid - GT 1 tab BID NOELLE Administration Levothyroxine Sodium 25 mcg 10/02/17 07:00 10/02/17 06:59 Synthroid - GT 25 mcg DAILY@0700 NOELLE Administration Mirtazapine 15 mg 10/01/17 22:00 10/01/17 23:30 Remeron - GT 15 mg HS NOELLE Administration Montelukast Sodium 10 mg 10/02/17 10:00 10/02/17 09:30 Singulair - GT 10 mg DAILY NOELLE Administration Pantoprazole Sodium 40 mg 10/02/17 10:00 10/02/17 09:30 Protonix Packets For Oral Suspension - GT 40 mg DAILY NOELLE Administration Paroxetine HCl 10 mg 10/01/17 22:00 10/01/17 23:30 Paxil - NR 10 mg HS NOELLE Administration Trazodone HCl 50 mg 10/01/17 22:00 10/01/17 23:30 Desyrel - NR 50 mg HS NOELLE Administration Objective: Vital Signs Period Temp Pulse Resp BP Sys/Petersen Pulse Ox Last 24 Hr 98.2 F-99.1 F 56-85 10-20 96-125/48-78 92-99 Physical Exam: General: NAD, mild respiratory distress Lungs: + trach, on vent. B/l rhonchi Heart: RRR, S1S2 Abd: Soft, non-tender, non-distended. Ext: B/l lower extremity edema CBCD WBC 9.5 K/mm3 (4.0-10.0) 10/02/17 06:20 RBC 3.48 M/mm3 (3.60-5.2) L 10/02/17 06:20 Hgb 10.3 GM/dL (10.7-15.3) L 10/02/17 06:20 Hct 31.2 % (32.4-45.2) L 10/02/17 06:20 MCV 89.5 fl (80-96) 10/02/17 06:20 MCHC 32.9 g/dl (32.0-36.0) 10/02/17 06:20 RDW 16.8 % (11.6-15.6) H 10/02/17 06:20 Plt Count 213 K/MM3 (134-434) 10/02/17 06:20 MPV 7.6 fl (7.5-11.1) 10/02/17 06:20 CMP Sodium 143 mmol/L (136-145) 10/02/17 06:20 Potassium 4.6 mmol/L (3.5-5.1) 10/02/17 06:20 Chloride 95 mmol/L (98-107) L 10/02/17 06:20 Carbon Dioxide 38 mmol/L (21-32) H 10/02/17 06:20 Anion Gap 10 (8-16) 10/02/17 06:20 BUN 13 mg/dL (7-18) 10/02/17 06:20 Creatinine 0.3 mg/dL (0.55-1.02) L 10/02/17 06:20 Creat Clearance w eGFR > 60 (>60) 10/01/17 16:30 Random Glucose 87 mg/dL (74-106) 10/02/17 06:20 Calcium 9.0 mg/dL (8.5-10.1) 10/02/17 06:20 Total Bilirubin 0.3 mg/dL (0.2-1.0) D 10/01/17 16:30 AST 14 U/L (15-37) L 10/01/17 16:30 ALT 28 U/L (12-78) 10/01/17 16:30 Alkaline Phosphatase 93 U/L (45-117) 10/01/17 16:30 Total Protein 6.5 g/dl (6.4-8.2) 10/01/17 16:30 Albumin 2.8 g/dl (3.4-5.0) L 10/01/17 16:30 CARDIAC ENZYMES Troponin I < 0.02 ng/ml (0.00-0.05) 10/01/17 17:10 Assessment: This is a 52 year old female with PMHx of chronic hypercapneic hypoxic respiratory failure on trach collar, CHF, morbid obesity, hypothyroidism , bipolar disorder, peg, who presented to the ED with shortness of breath and low oxygen saturation Plan 1) Acute on chronic hypercapneic hypoxic respiratory failure - Etiology workup in progress - Requiring vent assistance here, patient states she does not want vent anymore - Vent settings changed to IMV/PSV [id number] with FiO2 40%, recheck VBG in 20 min - Albuterol nebs - Continue empiric abx at this time, however chest x-ray on admission with decreased pulmonary and pleural changes - Appreciate pulmonary consult - Appreciate ID consult 2) CHF - No evidence of failure - Continue Lasix 3) DM - BGM ACHS - ISS ACHS 4) F/E/N: - Diabetic/sodium controlled diet - Monitor electrolytes 5) Prophylaxis: - Heparin 5,000u sq tid 6) Dispo: - Requires continued inpatient care CODE STATUS: FULL CODE Visit type - Emergency Visit Emergency Visit: Yes ED Registration Date: 10/01/17 Care time: The patient presented to the Emergency Department on the above date and was hospitalized for further evaluation of their emergent condition. - New Patient This patient is new to me today: Yes Date on this admission: 10/02/17 - Critical Care Critical Care patient: No
--- NOTE | 2017-10-02 15:28 | CON.PULM ---
Consult Consult Specialty:: PULMONARY Referred by:: KAR Reason for Consultation:: VENT MANAGEMENT/HYPERCAPNEIC RESP FAILURE - History of Present Illness Chief Complaint: SOB History of Present Illness: 52y F history of hypertension, thyroid disease, COPD status post tracheostomy secondary to respiratory failure. The patient notes she was recently admitted for evaluation of a similar complaint at [facility] and was discharged 4 days ago. The patient states that she was feeling well the last several days beside mild nausea she notes that immediate prior to presentation she started feeling shortness of breath she denies any associated chest pain, abdominal pain, fevers, diaphoresis, leg swelling, hemoptysis. Patient is at [facility] and is on a trach collar. On arrival to the ED the patient was being bagged via trach by EMS. 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 Cardio/Vascular: No: AFIB Pulmonary: Yes: COPD, O2 Dependent, Pneumonia, Previously Intubated, Other ( tracheostomy uses pmv) Gastrointestinal: Yes: Other (colon polyps) Hepatobiliary: No: Cirrhosis Renal/: No: Renal Failure Reproductive: Yes: Postmenopausal Heme/Onc: Yes: Anemia Infectious Disease: No: AIDS Psych: Yes: Bipolar - Alcohol/Substance Use Hx Alcohol Use: No History of Substance Use: reports: Marijuana - Smoking History Smoking history: Former smoker Have you smoked in the past 12 months: Yes Aproximately how many cigarettes per day: 5 If you are a former smoker, when did you quit?: 2013 - Social History Usual Living Arrangement: [facility] of : [facility] History of Recent Travel: No Home Medications - Allergies Allergies/Adverse Reactions: Allergies Allergy/AdvReac Type Severity Reaction Status Date / Time No Known Allergies Allergy Unverified 10/01/17 21:23 - Home Medications Home Medications: Ambulatory Orders Albuterol 0.083% Nebulizer Teresa [Ventolin 0.083% Nebulizer Soln -] 1 amp NEB Q4H PRN #0 amp 05/22/16 Acetaminophen [Tylenol .Regular Strength -] 650 mg GT Q6H PRN 10/01/17 Albuterol Sulfate Inhaler - [Ventolin Hfa Inhaler -] 2 inh PO Q6H PRN 10/01/17 Aripiprazole 5 mg GT HS 10/01/17 Aspirin 81 mg GT DAILY 10/01/17 Budesonide/Formeterol Fumarate [SYMBICORT 160/4.5mcg -] 1 puff IH BID 10/01/17 Chlorhexidine Gluconate 15 ml MM BID 10/01/17 Escitalopram Oxalate [Lexapro -] 20 mg PO DAILY 10/01/17 Furosemide 20 mg GT DAILY 10/01/17 Gabapentin Liquid [Neurontin Oral Liquid -] 600 mg PO BID 10/01/17 Hydrocortisone 2.5% Topical Cr [Anusol-Hc -] 1 applic [place] BID 10/01/17 Insulin Lispro [Humalog] unit SQ TID 10/01/17 Lactobacillus Acidophilus [Bacid -] 1 each GT BID 10/01/17 Levothyroxine [Synthroid -] 25 mcg GT DAILY 10/01/17 Mirtazapine 15 mg GT HS 10/01/17 Montelukast Sodium [Singulair] 10 mg GT DAILY 10/01/17 Omeprazole 40 mg GT DAILY 10/01/17 Paroxetine HCl 10 mg GT HS 10/01/17 Trazodone HCl 50 mg GT HS 10/01/17 Review of Systems - Review of Systems Constitutional: denies: Fever Eyes: denies: Blurred Vision HENT: denies: Difficult Swallowing Neck: denies: Decreased ROM Cardiovascular: denies: Chest Pain Respiratory: reports: SOB Gastrointestinal: denies: Abdominal Pain Genitourinary: denies: Burning Physical Exam Vital Sings: Vital Signs Temperature 98.2 F 10/02/17 13:55 Pulse Rate 58 L 10/02/17 13:55 Respiratory Rate 20 10/02/17 13:55 Blood Pressure 122/67 10/02/17 13:55 O2 Sat by Pulse Oximetry (%) 99 10/02/17 13:55 Constitutional: Yes: Anxious Eyes: Yes: EOM Intact HENT: Yes: Normocephalic Neck: Yes: Trachea Midline Cardiovascular: Yes: Regular Rate and Rhythm, S1, S2 Respiratory: Yes: Diminished (right base) Gastrointestinal: Yes: Soft, Abdomen, Obese Edema: LLE: 1+, RLE: 1+ Labs: CBC, BMP 10/02/17 06:20 10/02/17 06:20 REST REVIEWED Imaging - Results Chest X-ray: Report Reviewed, Image Reviewed Problem List - Problems (1) Acute respiratory failure Code(s): J96.00 - ACUTE RESPIRATORY FAILURE, UNSP W HYPOXIA OR HYPERCAPNIA (2) COPD exacerbation Code(s): J44.1 - CHRONIC OBSTRUCTIVE PULMONARY DISEASE W (ACUTE) EXACERBATION (3) DVT prophylaxis Code(s): EYX9455 - (4) Morbid obesity Code(s): E66.01 - MORBID (SEVERE) OBESITY DUE TO EXCESS CALORIES (5) Polysubstance (excluding opioids) dependence Code(s): F19.20 - OTHER PSYCHOACTIVE SUBSTANCE DEPENDENCE, UNCOMPLICATED Assessment/Plan SNF RESIDENT WITH TRACH DUE TO RESP FAILURE HAS BEEN ON TRACH COLLAR AT [facility]/ ALSO HAS PEG BUT TAKES FULL REGULAR DIET BY MOUTH USES PMV SPEAKING VALVE/TRANSFERRED TO ER DUE TO SOB FOUND TO HAVE HYPERCAPNEIC RESP FAILURE REQUIRING VENT ASSISTANCE ETIOLOGY OF HYPERCAPNEIC RESP FAILURE TO BE DETERMINED/DOES NOT APPEAR SEPTIC AND RADIOGRAGH DOES NOT SUPPORT VAP. VENT SETTINGS CHANGED TO IMV/PSV [id number] WITH FIO2 40% WILL CHECK VBG IN ONE HOUR/FOLLOW UP CXR/BRONCHODILATORS CHECK CULTURES PENDING/NO OBJECTION TO EMPIRIC ABS UNTIL CULTURES ARE BACK F/U CXR/DVT PROHYLAXSIS/ORDER DIET/ PMV WHEN ABLE WILL FOLLOW Marcus ALVA MD
[2017-10-02] MEDS ORDERED: PIPERACILLIN/TAZOB 3.375 GM 50 ML IVPB SCH (18:00)
[2017-10-02] MEDS ORDERED: FLU VACCINE QUAD 60 MCG/0.5 ML (MDV 17-18) IM ONE (18:30)
[2017-10-02] MEDS ORDERED: PNEUMOC 13-VAL CONJ-DIP CRM/PF 0.5 ML DISP.SYRIN IM ONE (18:30)
[2017-10-02] MEDS ORDERED: PT OWN MED DRAWER 7, Y5N ONE (18:31)
[2017-10-02] MEDS: PIPERACILLIN/TAZOB 3.375 GM 3.375 GM in DEXTROSE 5%-WATER - 50 ML IVPB SCH (20:39)
[2017-10-02] MEDS: PARoxetine HCL 10 MG TABLET (FP) NR SCH (22:05)
[2017-10-02] MEDS: ARIPiprazole 5 MG TABLET (FP) NR SCH (22:05)
[2017-10-02] MEDS: MIRTAZAPINE 15 MG TABLET (FP) GT SCH (22:05)
[2017-10-02] MEDS: traZODone HCL 50 MG TABLET (FP) NR SCH (22:05)
[2017-10-03] MEDS: HYDROCORTISONE 2.5% TOPICAL CREAM 30 GM TUBE RC SCH ×3 (01:07→21:28)
[2017-10-03] MEDS: PIPERACILLIN/TAZOB 3.375 GM 3.375 GM in DEXTROSE 5%-WATER - 50 ML IVPB SCH ×3 (03:13→17:21)
[2017-10-03] MEDS: HEPARIN NA (PORCINE) 5,000 UNITS/ML 1ML VIAL SQ SCH ×4 (06:06→21:41)
[2017-10-03] MEDS: INSULIN SLIDING SCALE (NOVOLOG) 1 VIAL SQ SCH ×4 (06:07→21:38)
[2017-10-03] MEDS: LEVOTHYROXINE NA 25 MCG TABLET (FP) GT SCH (06:22)
[2017-10-03 07:53] LABS: ALBUMIN 2.7 g/dl (3.4-5.0); ANION GAP 6 (8-16); BILIRUBIN,TOTAL 0.6 mg/dL (0.2-1.0); BLOOD UREA NITROGEN 20 mg/dL (7-18); CALCIUM 8.4 mg/dL (8.5-10.1); CHLORIDE 97 mmol/L (98-107); CO2 38 mmol/L (21-32); CREATININE 0.6 mg/dL (0.55-1.02); GLUCOSE,RANDOM 68 mg/dL (74-106); POTASSIUM 3.5 mmol/L (3.5-5.1); SGOT/AST 14 U/L (15-37); SGPT/ALT 22 U/L (12-78); SODIUM 141 mmol/L (136-145); TOT PROT 5.7 g/dl (6.4-8.2)
[2017-10-03 07:54] LABS: ALK PHOS 77 U/L (45-117)
[2017-10-03 08:10] LABS: HEMATOCRIT 31.4 % (32.4-45.2); HEMOGLOBIN 10.3 GM/dL (10.7-15.3); MCH 29.2 pg (25.7-33.7); MCHC 32.6 g/dl (32.0-36.0); MEAN CELL VOLUME 89.3 fl (80-96); MEAN PLT VOLUME 7.9 fl (7.5-11.1); PLATELET COUNT 186 K/MM3 (134-434); RBC 3.52 M/mm3 (3.60-5.2); WHITE BLOOD COUNT 6.2 K/mm3 (4.0-10.0)
[2017-10-03] MEDS: PANTOPRAZOLE SOD 40 MG SUSPENSION PACKET GT SCH (11:02)
[2017-10-03] MEDS: ASPIRIN 81 MG CHEWABLE TABLETS GT SCH (11:03)
[2017-10-03] MEDS: FUROSEMIDE 20 MG TABLET (FP) GT SCH ×2 (11:03→11:29)
[2017-10-03] MEDS: ESCITALOPRAM OXALATE 20 MG TABLET (FP) GT SCH (11:03)
[2017-10-03] MEDS: MONTELUKAST NA 10 MG TABLET GT SCH (11:03)
[2017-10-03] MEDS: LACTOBACILLUS ACIDOPHILUS 1 EACH TAB (FP) GT SCH ×2 (11:03→21:27)
[2017-10-03] MEDS: GABAPENTIN 250 MG/5 ML ORAL SOLUTION, 470 ML BOTTLE GT SCH ×2 (11:04→22:03)
[2017-10-03] MEDS: CHLORHEXIDINE GLUCONATE 0.12% 15ML CUP MM SCH ×2 (11:05→22:03)
[2017-10-03] MEDS: BUDESONIDE/FORMETEROL FUMARATE 160/4.5 mcg INHALER IH SCH ×2 (11:05→21:38)
--- NOTE | 2017-10-03 11:07 | PN ---
Progress Note (short form) - Note Progress Note: Awake and alert. Feels better./ Was vented overnight. Asking to be placed back on PMV. Intake & Output 09/30/17 10/01/17 10/02/17 10/03/17 23:59 23:59 23:59 23:59 Intake Total 150 100 Output Total 1600 1200 Balance -1450 -1100 Weight 240 lb 240 lb Last Vital Signs Temp Pulse Resp BP Pulse Ox 98.7 F 63 13 101/53 99 10/03/17 06:00 10/03/17 06:00 10/03/17 10:07 10/03/17 06:00 10/02/17 13:55 Active Medications Albuterol Sulfate (Ventolin 0.083% Nebulizer Soln -) 1 amp NEB Q4H PRN PRN Reason: SHORT OF BREATH/WHEEZING Last Admin: 10/02/17 10:05 Dose: 1 amp Aripiprazole (Abilify) 5 mg NR HS [facility] Last Admin: 10/02/17 22:05 Dose: 5 mg Aspirin (Asa -) 81 mg GT DAILY NOELLE Last Admin: 10/02/17 09:30 Dose: 81 mg Budesonide/Formoterol Fumarate (Symbicort 160/4.5mcg -) 1 puff IH BID NOELLE Last Admin: 10/02/17 22:06 Dose: 1 mcg Chlorhexidine Gluconate (Peridex -) 15 ml MM BID NOELLE Last Admin: 10/02/17 22:55 Dose: 15 ml Escitalopram Oxalate (Lexapro -) 20 mg GT DAILY NOELLE Last Admin: 10/02/17 09:30 Dose: 20 mg Furosemide (Lasix -) 20 mg GT DAILY NOELLE Last Admin: 10/02/17 09:30 Dose: 20 mg Gabapentin (Neurontin Oral Liquid -) 600 mg GT BID NOELLE Last Admin: 10/02/17 22:05 Dose: 600 mg Heparin Sodium (Porcine) (Heparin -) 5,000 unit SQ TID NOELLE Last Admin: 10/03/17 06:06 Dose: Not Given Hydrocortisone (Anusol 2.5% Hc Cream -) 1 applic RC BID NOELLE Last Admin: 10/03/17 01:07 Dose: 1 appful Piperacillin Sod/Tazobactam (Sod 3.375 gm/ Dextrose) 50 mls @ 100 mls/hr IVPB Q8H-IV NOELLE Last Admin: 10/03/17 03:13 Dose: 100 mls/hr Insulin Aspart (Novolog Vial Sliding Scale -) 1 vial SQ HS [facility] PRN Reason: Protocol Last Admin: 10/02/17 22:17 Dose: Not Given Insulin Aspart (Novolog Vial Sliding Scale -) 1 vial SQ TIDAC NOELLE PRN Reason: Protocol Last Admin: 10/03/17 06:07 Dose: Not Given Lactobacillus Acidophilus (Bacid -) 1 tab GT BID [facility] Last Admin: 10/02/17 22:05 Dose: 1 tab Levothyroxine Sodium (Synthroid -) 25 mcg GT DAILY@0700 [facility] Last Admin: 10/03/17 06:22 Dose: 25 mcg Mirtazapine (Remeron -) 15 mg GT [facility] Last Admin: 10/02/17 22:05 Dose: 15 mg Montelukast Sodium (Singulair -) 10 mg GT DAILY [facility] Last Admin: 10/02/17 09:30 Dose: 10 mg Pantoprazole Sodium (Protonix Packets For Oral Suspension -) 40 mg GT DAILY [facility] Last Admin: 10/02/17 09:30 Dose: 40 mg Paroxetine HCl (Paxil -) 10 mg NR [facility] Last Admin: 10/02/17 22:05 Dose: 10 mg Trazodone HCl (Desyrel -) 50 mg NR [facility] Last Admin: 10/02/17 22:05 Dose: 50 mg Constitutional: Yes: Awake and alert, NAD Eyes: Yes: EOM Intact HENT: Yes: Normocephalic Neck: Yes: Trachea Midline Cardiovascular: Yes: Regular Rate and Rhythm, S1, S2 Respiratory: Yes: Diminished at the bases Gastrointestinal: Yes: Soft, Abdomen, Obese Edema: LLE: 1+, RLE: 1+ Labs: Laboratory Results - last 24 hr 10/02/17 10/02/17 10/02/17 13:50 17:44 22:12 WBC RBC Hgb Hct MCV MCH MCHC RDW Plt Count MPV Sodium Potassium Chloride Carbon Dioxide Anion Gap BUN Creatinine Creat Clearance w eGFR POC Glucometer 112.12793 92 157 Random Glucose Calcium Total Bilirubin AST ALT Alkaline Phosphatase Total Protein Albumin 10/03/17 10/03/17 10/03/17 05:44 06:00 06:00 WBC 6.2 D RBC 3.52 L Hgb 10.3 L Hct 31.4 L MCV 89.3 MCH 29.2 MCHC 32.6 RDW 18.0 H Plt Count 186 MPV 7.9 Sodium 141 Potassium 3.5 Chloride 97 L Carbon Dioxide 38 H Anion Gap 6 L BUN 20 H Creatinine 0.6 Creat Clearance w eGFR > 60 POC Glucometer 94 Random Glucose 68 L Calcium 8.4 L Total Bilirubin 0.6 D AST 14 L ALT 22 Alkaline Phosphatase 77 Total Protein 5.7 L Albumin 2.7 L Problem List - Problems (1) Acute respiratory failure Code(s): J96.00 - ACUTE RESPIRATORY FAILURE, UNSP W HYPOXIA OR HYPERCAPNIA (2) COPD exacerbation Code(s): J44.1 - CHRONIC OBSTRUCTIVE PULMONARY DISEASE W (ACUTE) EXACERBATION (3) DVT prophylaxis Code(s): QAC3961 - (4) Morbid obesity Code(s): E66.01 - MORBID (SEVERE) OBESITY DUE TO EXCESS CALORIES (5) Polysubstance (excluding opioids) dependence Code(s): F19.20 - OTHER PSYCHOACTIVE SUBSTANCE DEPENDENCE, UNCOMPLICATED Assessment/Plan Trial of Trach collar VTE prophylaxis PMV as tolerated Would D/C ABX Dr Lagos
[2017-10-03] MEDS: PANTOPRAZOLE 40 MG TABLET (FP) PO SCH (11:35)
--- NOTE | 2017-10-03 12:36 | PN ---
Progress Note, Physician History of Present Illness: patient seen and examined. Chart reviewed. Comfortable. Eating lunch. Feels better - Current Medication List Current Medications: Active Medications Albuterol Sulfate (Ventolin 0.083% Nebulizer Soln -) 1 amp NEB Q4H PRN PRN Reason: SHORT OF BREATH/WHEEZING Last Admin: 10/02/17 10:05 Dose: 1 amp Aripiprazole (Abilify) 5 mg NR HS [facility] Last Admin: 10/02/17 22:05 Dose: 5 mg Aspirin (Asa -) 81 mg GT DAILY [facility] Last Admin: 10/03/17 11:03 Dose: 81 mg Budesonide/Formoterol Fumarate (Symbicort 160/4.5mcg -) 1 puff IH BID NOELLE Last Admin: 10/03/17 11:05 Dose: 1 puff Chlorhexidine Gluconate (Peridex -) 15 ml MM BID [facility] Last Admin: 10/03/17 11:05 Dose: 15 ml Escitalopram Oxalate (Lexapro -) 20 mg GT DAILY [facility] Last Admin: 10/03/17 11:03 Dose: 20 mg Furosemide (Lasix -) 20 mg GT DAILY [facility] Last Admin: 10/03/17 11:29 Dose: Not Given Gabapentin (Neurontin Oral Liquid -) 600 mg GT BID [facility] Last Admin: 10/03/17 11:04 Dose: 600 mg Heparin Sodium (Porcine) (Heparin -) 5,000 unit SQ TID [facility] Last Admin: 10/03/17 06:06 Dose: Not Given Hydrocortisone (Anusol 2.5% Hc Cream -) 1 applic RC BID [facility] Last Admin: 10/03/17 11:15 Dose: 1 appful Piperacillin Sod/Tazobactam (Sod 3.375 gm/ Dextrose) 50 mls @ 100 mls/hr IVPB Q8H-IV NOELLE Last Admin: 10/03/17 11:14 Dose: 100 mls/hr Insulin Aspart (Novolog Vial Sliding Scale -) 1 vial SQ HS NOELLE PRN Reason: Protocol Last Admin: 10/02/17 22:17 Dose: Not Given Insulin Aspart (Novolog Vial Sliding Scale -) 1 vial SQ TIDAC NOELLE PRN Reason: Protocol Last Admin: 10/03/17 11:40 Dose: Not Given Lactobacillus Acidophilus (Bacid -) 1 tab GT BID NOELLE Last Admin: 10/03/17 11:03 Dose: 1 tab Levothyroxine Sodium (Synthroid -) 25 mcg GT DAILY@0700 [facility] Last Admin: 10/03/17 06:22 Dose: 25 mcg Mirtazapine (Remeron -) 15 mg GT HS [facility] Last Admin: 10/02/17 22:05 Dose: 15 mg Montelukast Sodium (Singulair -) 10 mg GT DAILY [facility] Last Admin: 10/03/17 11:03 Dose: 10 mg Pantoprazole Sodium (Protonix -) 40 mg PO DAILY [facility] Last Admin: 10/03/17 11:35 Dose: 40 mg Paroxetine HCl (Paxil -) 10 mg NR [facility] Last Admin: 10/02/17 22:05 Dose: 10 mg Trazodone HCl (Desyrel -) 50 mg NR [facility] Last Admin: 10/02/17 22:05 Dose: 50 mg - Objective Vital Signs: Vital Signs Temperature 98.7 F 10/03/17 06:00 Pulse Rate 63 10/03/17 06:00 Respiratory Rate 13 10/03/17 10:07 Blood Pressure 101/53 10/03/17 06:00 O2 Sat by Pulse Oximetry (%) 99 10/02/17 13:55 Constitutional: Yes: No Distress, Calm Eyes: Yes: Conjunctiva Clear Neck: Yes: Supple, Other (Status post trach--- went) Respiratory: Yes: Diminished Gastrointestinal: Yes: Soft Edema: LLE: 1+, RLE: 1+ Neurological: Yes: Alert Psychiatric: Yes: Alert Labs: CBC, BMP 10/03/17 06:00 10/03/17 06:00 INR, PTT INR 1.10 (0.82-1.09) 10/01/17 16:30 Problem List - Problems (1) Acute respiratory failure Code(s): J96.00 - ACUTE RESPIRATORY FAILURE, UNSP W HYPOXIA OR HYPERCAPNIA (2) Morbid obesity Code(s): E66.01 - MORBID (SEVERE) OBESITY DUE TO EXCESS CALORIES Assessment/Plan clinically better. Meds reviewed. All consults noted and appreciated. I agree that antibody should be discontinued. Await ID input. We will follow. Discussed with nursing staff also.
--- NOTE | 2017-10-03 13:31 | PN ---
Progress Note, Physician History of Present Illness: Infectious Disease f/u: Pt seen and examined. Events noted, lab/imaging results reviewed. Temp 99.6F currently. She has been on vent support. Denies any new complaints. - Current Medication List Current Medications: Active Medications Albuterol Sulfate (Ventolin 0.083% Nebulizer Soln -) 1 amp NEB Q4H PRN PRN Reason: SHORT OF BREATH/WHEEZING Last Admin: 10/02/17 10:05 Dose: 1 amp Aripiprazole (Abilify) 5 mg NR HS [facility] Last Admin: 10/02/17 22:05 Dose: 5 mg Aspirin (Asa -) 81 mg GT DAILY [facility] Last Admin: 10/03/17 11:03 Dose: 81 mg Budesonide/Formoterol Fumarate (Symbicort 160/4.5mcg -) 1 puff IH BID [facility]EL[facility] Last Admin: 10/03/17 11:05 Dose: 1 puff Chlorhexidine Gluconate (Peridex -) 15 ml MM BID [facility] Last Admin: 10/03/17 11:05 Dose: 15 ml Escitalopram Oxalate (Lexapro -) 20 mg GT DAILY [facility] Last Admin: 10/03/17 11:03 Dose: 20 mg Furosemide (Lasix -) 20 mg GT DAILY [facility] Last Admin: 10/03/17 11:29 Dose: Not Given Gabapentin (Neurontin Oral Liquid -) 600 mg GT BID [facility] Last Admin: 10/03/17 11:04 Dose: 600 mg Heparin Sodium (Porcine) (Heparin -) 5,000 unit SQ TID [facility] Last Admin: 10/03/17 06:06 Dose: Not Given Hydrocortisone (Anusol 2.5% Hc Cream -) 1 applic RC BID [facility] Last Admin: 10/03/17 11:15 Dose: 1 appful Piperacillin Sod/Tazobactam (Sod 3.375 gm/ Dextrose) 50 mls @ 100 mls/hr IVPB Q8H-IV [facility] Last Admin: 10/03/17 11:14 Dose: 100 mls/hr Insulin Aspart (Novolog Vial Sliding Scale -) 1 vial SQ HS [facility] PRN Reason: Protocol Last Admin: 10/02/17 22:17 Dose: Not Given Insulin Aspart (Novolog Vial Sliding Scale -) 1 vial SQ TIDAC NOELLE PRN Reason: Protocol Last Admin: 03/17/18 11:40 Dose: Not Given Lactobacillus Acidophilus (Bacid -) 1 tab GT BID [facility] Last Admin: 10/03/17 11:03 Dose: 1 tab Levothyroxine Sodium (Synthroid -) 25 mcg GT DAILY@0700 [facility] Last Admin: 10/03/17 06:22 Dose: 25 mcg Mirtazapine (Remeron -) 15 mg GT [facility] Last Admin: 10/02/17 22:05 Dose: 15 mg Montelukast Sodium (Singulair -) 10 mg GT DAILY [facility] Last Admin: 10/03/17 11:03 Dose: 10 mg Pantoprazole Sodium (Protonix -) 40 mg PO DAILY [facility] Last Admin: 10/03/17 11:35 Dose: 40 mg Paroxetine HCl (Paxil -) 10 mg NR [facility] Last Admin: 10/02/17 22:05 Dose: 10 mg Trazodone HCl (Desyrel -) 50 mg NR [facility] Last Admin: 10/02/17 22:05 Dose: 50 mg - Objective Vital Signs: Vital Signs Temperature 98.2 F 10/03/17 10:00 Pulse Rate 71 10/03/17 10:00 Respiratory Rate 13 10/03/17 10:07 Blood Pressure 99/51 10/03/17 10:00 O2 Sat by Pulse Oximetry (%) 99 10/02/17 13:55 Constitutional: Yes: No Distress Cardiovascular: Yes: Regular Rate and Rhythm Respiratory: Yes: Diminished (at bases) Gastrointestinal: Yes: Normal Bowel Sounds, Soft, Abdomen, Obese Genitourinary: Yes: WNL Extremities: Yes: WNL Integumentary: Yes: WNL Neurological: Yes: Alert, Oriented Labs: CBC, BMP 10/03/17 06:00 10/03/17 06:00 INR, PTT INR 1.10 (0.82-1.09) 10/01/17 16:30 Microbiology 10/01/17 18:40 Urine - Urine - Catheterized Urine Culture - Final NO GROWTH OBTAINED 10/02/17 02:22 Blood - Peripheral Venous Blood Culture - Preliminary NO GROWTH OBTAINED AFTER 24 HOURS, INCUBATION TO CONTINUE FOR 4 DAYS. 10/02/17 02:22 Blood - Peripheral Venous Blood Culture - Preliminary NO GROWTH OBTAINED AFTER 24 HOURS, INCUBATION TO CONTINUE FOR 4 DAYS. - ....Imaging Chest X-ray: Report Reviewed, Image Reviewed Problem List - Problems (1) Acute respiratory failure Code(s): J96.00 - ACUTE RESPIRATORY FAILURE, UNSP W HYPOXIA OR HYPERCAPNIA (2) COPD exacerbation Code(s): J44.1 - CHRONIC OBSTRUCTIVE PULMONARY DISEASE W (ACUTE) EXACERBATION (3) CHF (congestive heart failure) Code(s): I50.9 - HEART FAILURE, UNSPECIFIED (4) Morbid obesity Code(s): E66.01 - MORBID (SEVERE) OBESITY DUE TO EXCESS CALORIES (5) Polysubstance (excluding opioids) dependence Code(s): F19.20 - OTHER PSYCHOACTIVE SUBSTANCE DEPENDENCE, UNCOMPLICATED Assessment/Plan 52 y.o. female with COPD, obesity, respiratory failure s/p tracheostomy recently hospitalized and diagnosed with PNA and was on antibiotics now admitted for hypoxemia and placed on vent support COPD Exacerbation Questionable PNA -- on Zosyn empirically, send sputum for culture if secretions noted -- will consider d/c antibiotics if becomes more stable -- continue monitor respiratory status -- pulmonary following
[2017-10-03] MEDS ORDERED: PT OWN MED DRAWER 7, Y5N ONE ×3 (17:12→21:31)
[2017-10-03] MEDS: traZODone HCL 50 MG TABLET (FP) NR SCH (21:27)
[2017-10-03] MEDS: MIRTAZAPINE 15 MG TABLET (FP) GT SCH (21:27)
[2017-10-03] MEDS: PARoxetine HCL 10 MG TABLET (FP) NR SCH (21:27)
[2017-10-03] MEDS: ARIPiprazole 5 MG TABLET (FP) NR SCH (22:03)
[2017-10-04] MEDS: PIPERACILLIN/TAZOB 3.375 GM 3.375 GM in DEXTROSE 5%-WATER - 50 ML IVPB SCH ×3 (01:03→17:47)
[2017-10-04] MEDS: ACETAMINOPHEN 325 MG TABLET (FP) PO PRN (01:32)
[2017-10-04] MEDS: HEPARIN NA (PORCINE) 5,000 UNITS/ML 1ML VIAL SQ SCH ×3 (05:54→21:44)
[2017-10-04] MEDS: LEVOTHYROXINE NA 25 MCG TABLET (FP) GT SCH (06:00)
[2017-10-04] MEDS: INSULIN SLIDING SCALE (NOVOLOG) 1 VIAL SQ SCH ×4 (06:01→21:44)
[2017-10-04] MEDS: ALBUTEROL SO4 0.083% IH SOL 2.5 MG/3 ML VIAL.NEB. NEB PRN (07:25)
--- NOTE | 2017-10-04 10:05 | PN ---
Progress Note, Physician History of Present Illness: patient seen and examined. Chart reviewed. Comfortable. remains vent dependent. Alert and awake. Afebrile. - Current Medication List Current Medications: Active Medications Acetaminophen (Tylenol -) 650 mg PO Q6H PRN PRN Reason: PAIN OR FEVER Last Admin: 10/04/17 01:32 Dose: 650 mg Albuterol Sulfate (Ventolin 0.083% Nebulizer Soln -) 1 amp NEB Q4H PRN PRN Reason: SHORT OF BREATH/WHEEZING Last Admin: 10/04/17 07:25 Dose: 1 amp Aripiprazole (Abilify) 5 mg NR HS [facility] [place] Last Admin: 10/03/17 22:03 Dose: 5 mg Aspirin (Asa -) 81 mg GT DAILY [facility] [place] Last Admin: 10/03/17 11:03 Dose: 81 mg Budesonide/Formoterol Fumarate (Symbicort 160/4.5mcg -) 1 puff IH BID [facility] [place] Last Admin: 10/03/17 21:38 Dose: 1 puff Chlorhexidine Gluconate (Peridex -) 15 ml MM BID [facility] Last Admin: 10/03/17 22:03 Dose: 15 ml Escitalopram Oxalate (Lexapro -) 20 mg GT DAILY [facility] Last Admin: 10/03/17 11:03 Dose: 20 mg Furosemide (Lasix -) 20 mg GT DAILY [facility] [place] Last Admin: 10/03/17 11:29 Dose: Not Given Gabapentin (Neurontin Oral Liquid -) 600 mg GT BID [facility] Last Admin: 10/03/17 22:03 Dose: 600 mg Heparin Sodium (Porcine) (Heparin -) 5,000 unit SQ TID [facility] [place] Last Admin: 10/04/17 05:54 Dose: Not Given Hydrocortisone (Anusol 2.5% Hc Cream -) 1 applic RC BID [facility] [place] Last Admin: 10/03/17 21:28 Dose: 1 appful Piperacillin Sod/Tazobactam (Sod 3.375 gm/ Dextrose) 50 mls @ 100 mls/hr IVPB Q8H-IV [facility] Last Admin: 10/04/17 01:03 Dose: 100 mls/hr Insulin Aspart (Novolog Vial Sliding Scale -) 1 vial SQ HS [facility] PRN Reason: Protocol Last Admin: 10/03/17 21:38 Dose: Not Given Insulin Aspart (Novolog Vial Sliding Scale -) 1 vial SQ TIDAC [facility] PRN Reason: Protocol Last Admin: 10/04/17 06:01 Dose: Not Given Lactobacillus Acidophilus (Bacid -) 1 tab GT BID [facility] [place] Last Admin: 10/03/17 21:27 Dose: 1 tab Levothyroxine Sodium (Synthroid -) 25 mcg GT DAILY@0700 [facility] Last Admin: 10/04/17 06:00 Dose: 25 mcg Mirtazapine (Remeron -) 15 mg GT HS [facility] Last Admin: 10/03/17 21:27 Dose: 15 mg Montelukast Sodium (Singulair -) 10 mg GT DAILY [facility] [place] Last Admin: 10/03/17 11:03 Dose: 10 mg Pantoprazole Sodium (Protonix -) 40 mg PO DAILY [facility] [place] Last Admin: 10/03/17 11:35 Dose: 40 mg Paroxetine HCl (Paxil -) 10 mg NR [facility] Last Admin: 10/03/17 21:27 Dose: 10 mg Trazodone HCl (Desyrel -) 50 mg NR [facility] Last Admin: 10/03/17 21:27 Dose: 50 mg - Objective Vital Signs: Vital Signs Temperature 98.4 F 10/04/17 06:00 Pulse Rate 56 L 10/04/17 06:00 Respiratory Rate 14 10/04/17 06:32 Blood Pressure 107/68 10/04/17 06:00 O2 Sat by Pulse Oximetry (%) 99 10/02/17 13:55 Constitutional: Yes: No Distress, Calm Eyes: Yes: Conjunctiva Clear Neck: Yes: Other (Status post trach--vent) Cardiovascular: Yes: Regular Rate and Rhythm Respiratory: Yes: Diminished Gastrointestinal: Yes: Soft Edema: No Neurological: Yes: Alert Psychiatric: Yes: Alert Labs: CBC, BMP 10/03/17 06:00 10/03/17 06:00 INR, PTT INR 1.10 (0.82-1.09) 10/01/17 16:30 Problem List - Problems (1) Acute respiratory failure Code(s): J96.00 - ACUTE RESPIRATORY FAILURE, UNSP W HYPOXIA OR HYPERCAPNIA (2) Morbid obesity Code(s): E66.01 - MORBID (SEVERE) OBESITY DUE TO EXCESS CALORIES Assessment/Plan clinically stable Meds reviewed. All consults noted and appreciated. antibiotics per ID Weaning trial Taper steroids slowly. Will follow.
[2017-10-04] MEDS ORDERED: PT OWN MED DRAWER 7, Y5N ONE ×4 (10:06→23:36)
[2017-10-04] MEDS: ASPIRIN 81 MG CHEWABLE TABLETS GT SCH (11:00)
[2017-10-04] MEDS: ESCITALOPRAM OXALATE 20 MG TABLET (FP) GT SCH (11:01)
[2017-10-04] MEDS: LACTOBACILLUS ACIDOPHILUS 1 EACH TAB (FP) GT SCH ×2 (11:01→21:43)
[2017-10-04] MEDS: MONTELUKAST NA 10 MG TABLET GT SCH (11:01)
[2017-10-04] MEDS: PANTOPRAZOLE 40 MG TABLET (FP) PO SCH (11:01)
[2017-10-04] MEDS: CHLORHEXIDINE GLUCONATE 0.12% 15ML CUP MM SCH ×2 (11:06→21:45)
[2017-10-04] MEDS: BUDESONIDE/FORMETEROL FUMARATE 160/4.5 mcg INHALER IH SCH ×2 (11:08→21:45)
[2017-10-04] MEDS: HYDROCORTISONE 2.5% TOPICAL CREAM 30 GM TUBE RC SCH ×2 (11:14→21:43)
[2017-10-04] MEDS: ALBUTEROL SO4 2.5/IPRATROPIUM 0.5 INH SOL 3 ML VIAL.NEB. NEB SCH ×3 (11:40→20:52)
--- NOTE | 2017-10-04 11:42 | PN ---
Progress Note (short form) - Note Progress Note: Awake and alert. Now on CPAP trial with PS 15 cm H2O. Low minute ventilation and feeling SOB. Reports that she heard herself wheezing overnight. Intake & Output 10/01/17 10/02/17 10/03/17 10/04/17 23:59 23:59 23:59 23:59 Intake Total 150 1600 250 Output Total 1600 1200 1300 Balance -1450 400 -1050 Weight 240 lb 240 lb 291 lb 0.8 oz Last Vital Signs Temp Pulse Resp BP Pulse Ox 98.4 F 56 L 14 107/68 99 10/04/17 06:00 10/04/17 06:00 10/04/17 06:32 10/04/17 06:00 10/02/17 13:55 Active Medications Acetaminophen (Tylenol -) 650 mg PO Q6H PRN PRN Reason: PAIN OR FEVER Last Admin: 10/04/17 01:32 Dose: 650 mg Albuterol Sulfate (Ventolin 0.083% Nebulizer Soln -) 1 amp NEB Q4H PRN PRN Reason: SHORT OF BREATH/WHEEZING Last Admin: 10/04/17 07:25 Dose: 1 amp Aripiprazole (Abilify) 5 mg NR HS [facility] Last Admin: 10/03/17 22:03 Dose: 5 mg Aspirin (Asa -) 81 mg GT DAILY [facility] Last Admin: 10/04/17 11:00 Dose: 81 mg Budesonide/Formoterol Fumarate (Symbicort 160/4.5mcg -) 1 puff IH BID [facility] Last Admin: 10/04/17 11:08 Dose: 1 puff Chlorhexidine Gluconate (Peridex -) 15 ml MM BID [facility] Last Admin: 10/04/17 11:06 Dose: 15 ml Escitalopram Oxalate (Lexapro -) 20 mg GT DAILY [facility] Last Admin: 10/04/17 11:01 Dose: 20 mg Furosemide (Lasix -) 20 mg GT DAILY [facility] Last Admin: 10/03/17 11:29 Dose: Not Given Gabapentin (Neurontin Oral Liquid -) 600 mg GT BID [facility] Last Admin: 10/03/17 22:03 Dose: 600 mg Heparin Sodium (Porcine) (Heparin -) 5,000 unit SQ TID [facility] Last Admin: 10/04/17 05:54 Dose: Not Given Hydrocortisone (Anusol 2.5% Hc Cream -) 1 applic RC BID [facility] Last Admin: 10/04/17 11:14 Dose: 1 appful Piperacillin Sod/Tazobactam (Sod 3.375 gm/ Dextrose) 50 mls @ 100 mls/hr IVPB Q8H-IV [facility] Last Admin: 10/04/17 11:00 Dose: 100 mls/hr Insulin Aspart (Novolog Vial Sliding Scale -) 1 vial SQ HS [facility] PRN Reason: Protocol Last Admin: 10/03/17 21:38 Dose: Not Given Insulin Aspart (Novolog Vial Sliding Scale -) 1 vial SQ TIDAC [facility] PRN Reason: Protocol Last Admin: 10/04/17 06:01 Dose: Not Given Lactobacillus Acidophilus (Bacid -) 1 tab GT BID [facility] Last Admin: 10/04/17 11:01 Dose: 1 tab Levothyroxine Sodium (Synthroid -) 25 mcg GT DAILY@0700 [facility] Last Admin: 10/04/17 06:00 Dose: 25 mcg Mirtazapine (Remeron -) 15 mg GT [facility] Last Admin: 10/03/17 21:27 Dose: 15 mg Montelukast Sodium (Singulair -) 10 mg GT DAILY [facility] Last Admin: 10/04/17 11:01 Dose: 10 mg Pantoprazole Sodium (Protonix -) 40 mg PO DAILY [facility] Last Admin: 10/04/17 11:01 Dose: 40 mg Paroxetine HCl (Paxil -) 10 mg NR [facility] Last Admin: 10/03/17 21:27 Dose: 10 mg Trazodone HCl (Desyrel -) 50 mg NR [facility] Last Admin: 10/03/17 21:27 Dose: 50 mg Constitutional: Yes: Awake and alert, NAD Eyes: Yes: EOM Intact HENT: Yes: Normocephalic Neck: Yes: Trachea Midline Cardiovascular: Yes: Regular Rate and Rhythm, S1, S2 Respiratory: Yes: Bilateral scattered expiratory wheezing, Diminished at the bases Gastrointestinal: Yes: Soft, Abdomen, Obese Edema: LLE: 1+, RLE: 1+ Labs: Laboratory Results - last 24 hr 10/03/17 10/03/17 10/03/17 11:39 16:32 21:37 POC Glucometer 96 111 116 10/04/17 05:49 POC Glucometer 95 Problem List - Problems (1) Acute respiratory failure Code(s): J96.00 - ACUTE RESPIRATORY FAILURE, UNSP W HYPOXIA OR HYPERCAPNIA (2) COPD exacerbation Code(s): J44.1 - CHRONIC OBSTRUCTIVE PULMONARY DISEASE W (ACUTE) EXACERBATION (3) DVT prophylaxis Code(s): NRS5781 - (4) Morbid obesity Code(s): E66.01 - MORBID (SEVERE) OBESITY DUE TO EXCESS CALORIES (5) Polysubstance (excluding opioids) dependence Code(s): F19.20 - OTHER PSYCHOACTIVE SUBSTANCE DEPENDENCE, UNCOMPLICATED Assessment/Plan Trial of Medrol VTE prophylaxis SIMV / CPAP trials as tolerated Not ready for T collar / PMV Singulair BD TX Dr [place]
[2017-10-04] MEDS: methylPREDNISolone NA SUCC 40 MG/1 ML VIAL IVPUSH SCH ×2 (13:00→17:47)
[2017-10-04] MEDS: GABAPENTIN 250 MG/5 ML ORAL SOLUTION, 470 ML BOTTLE GT SCH ×2 (13:00→21:44)
--- NOTE | 2017-10-04 14:30 | PN ---
Progress Note, Physician History of Present Illness: Pt is alert, noted to have excessive respiratory secretions via trach. On CPAP. Remains afebrile. - Current Medication List Current Medications: Active Medications Acetaminophen (Tylenol -) 650 mg PO Q6H PRN PRN Reason: PAIN OR FEVER Last Admin: 10/04/17 01:32 Dose: 650 mg Albuterol Sulfate (Ventolin 0.083% Nebulizer Soln -) 1 amp NEB Q4H PRN PRN Reason: SHORT OF BREATH/WHEEZING Last Admin: 10/04/17 07:25 Dose: 1 amp Albuterol/Ipratropium (Duoneb -) 1 amp NEB RQID [facility] Last Admin: 10/04/17 11:40 Dose: 1 amp Aripiprazole (Abilify) 5 mg NR HS [facility] Last Admin: 10/03/17 22:03 Dose: 5 mg Aspirin (Asa -) 81 mg GT DAILY [facility] Last Admin: 10/04/17 11:00 Dose: 81 mg Budesonide/Formoterol Fumarate (Symbicort 160/4.5mcg -) 1 puff IH BID [facility] Last Admin: 10/04/17 11:08 Dose: 1 puff Chlorhexidine Gluconate (Peridex -) 15 ml MM BID [facility] Last Admin: 10/04/17 11:06 Dose: 15 ml Escitalopram Oxalate (Lexapro -) 20 mg GT DAILY [facility] Last Admin: 10/04/17 11:01 Dose: 20 mg Furosemide (Lasix -) 20 mg GT DAILY [facility] Last Admin: 10/03/17 11:29 Dose: Not Given Gabapentin (Neurontin Oral Liquid -) 600 mg GT BID [facility] Last Admin: 10/03/17 22:03 Dose: 600 mg Heparin Sodium (Porcine) (Heparin -) 5,000 unit SQ TID [facility] Last Admin: 10/04/17 13:02 Dose: 5,000 unit Hydrocortisone (Anusol 2.5% Hc Cream -) 1 applic RC BID [facility] Last Admin: 10/04/17 11:14 Dose: 1 appful Piperacillin Sod/Tazobactam (Sod 3.375 gm/ Dextrose) 50 mls @ 100 mls/hr IVPB Q8H-IV [facility] Last Admin: 10/04/17 11:00 Dose: 100 mls/hr Insulin Aspart (Novolog Vial Sliding Scale -) 1 vial SQ [facility] PRN Reason: Protocol Last Admin: 10/03/17 21:38 Dose: Not Given Insulin Aspart (Novolog Vial Sliding Scale -) 1 vial SQ TIDAC [facility] PRN Reason: Protocol Last Admin: 10/04/17 11:02 Dose: Not Given Lactobacillus Acidophilus (Bacid -) 1 tab GT BID [facility] Last Admin: 10/04/17 11:01 Dose: 1 tab Levothyroxine Sodium (Synthroid -) 25 mcg GT DAILY@0700 [facility] Last Admin: 10/04/17 06:00 Dose: 25 mcg Methylprednisolone Sodium Succinate (Solu-Medrol -) 60 mg IVPUSH Q8H-IV [facility] Last Admin: 10/04/17 13:00 Dose: 60 mg Mirtazapine (Remeron -) 15 mg GT [facility] Last Admin: 10/03/17 21:27 Dose: 15 mg Montelukast Sodium (Singulair -) 10 mg GT DAILY [facility] Last Admin: 10/04/17 11:01 Dose: 10 mg Pantoprazole Sodium (Protonix -) 40 mg PO DAILY [facility] Last Admin: 10/04/17 11:01 Dose: 40 mg Paroxetine HCl (Paxil -) 10 mg NR [facility] Last Admin: 10/03/17 21:27 Dose: 10 mg Trazodone HCl (Desyrel -) 50 mg NR [facility] Last Admin: 10/03/17 21:27 Dose: 50 mg - Objective Vital Signs: Vital Signs Temperature 98.3 F 10/04/17 10:00 Pulse Rate 62 10/04/17 10:00 Respiratory Rate 22 10/04/17 11:40 Blood Pressure 99/58 10/04/17 10:00 O2 Sat by Pulse Oximetry (%) 99 10/02/17 13:55 Constitutional: Yes: No Distress Cardiovascular: Yes: Regular Rate and Rhythm Respiratory: Yes: Diminished (bases), Wheezes Gastrointestinal: Yes: Normal Bowel Sounds, Soft, Abdomen, Obese Edema: LLE: 1+, RLE: 1+ Neurological: Yes: Alert Labs: CBC, BMP 10/03/17 06:00 10/03/17 06:00 INR, PTT INR 1.10 (0.82-1.09) 10/01/17 16:30 Microbiology 10/02/17 02:22 Blood - Peripheral Venous Blood Culture - Preliminary NO GROWTH OBTAINED AFTER 48 HOURS, INCUBATION TO CONTINUE FOR 3 DAYS. 10/02/17 02:22 Blood - Peripheral Venous Blood Culture - Preliminary NO GROWTH OBTAINED AFTER 48 HOURS, INCUBATION TO CONTINUE FOR 3 DAYS. 10/01/17 18:40 Urine - Urine - Catheterized Urine Culture - Final NO GROWTH OBTAINED Problem List - Problems (1) Acute respiratory failure Code(s): J96.00 - ACUTE RESPIRATORY FAILURE, UNSP W HYPOXIA OR HYPERCAPNIA (2) COPD exacerbation Code(s): J44.1 - CHRONIC OBSTRUCTIVE PULMONARY DISEASE W (ACUTE) EXACERBATION (3) CHF (congestive heart failure) Code(s): I50.9 - HEART FAILURE, UNSPECIFIED (4) Morbid obesity Code(s): E66.01 - MORBID (SEVERE) OBESITY DUE TO EXCESS CALORIES (5) Polysubstance (excluding opioids) dependence Code(s): F19.20 - OTHER PSYCHOACTIVE SUBSTANCE DEPENDENCE, UNCOMPLICATED Assessment/Plan 52 y.o. female with COPD, obesity, respiratory failure s/p tracheostomy recently hospitalized and diagnosed with PNA and was on antibiotics now admitted for hypoxemia and placed on vent support Respiratory Failure/on CPAP COPD Exacerbation Possible PNA -- sputum being sent for culture, continue suction -- continue Zosyn for now, on solumedrol -- continue monitor respiratory status
[2017-10-04] MEDS: FUROSEMIDE 20 MG TABLET (FP) GT SCH (17:48)
[2017-10-04] MEDS: traZODone HCL 50 MG TABLET (FP) NR SCH (21:43)
[2017-10-04] MEDS: ARIPiprazole 5 MG TABLET (FP) NR SCH (21:43)
[2017-10-04] MEDS: PARoxetine HCL 10 MG TABLET (FP) NR SCH (21:45)
[2017-10-04] MEDS: MIRTAZAPINE 15 MG TABLET (FP) GT SCH (21:45)
[2017-10-05] MEDS: methylPREDNISolone NA SUCC 40 MG/1 ML VIAL IVPUSH SCH ×3 (01:47→21:44)
[2017-10-05] MEDS: PIPERACILLIN/TAZOB 3.375 GM 3.375 GM in DEXTROSE 5%-WATER - 50 ML IVPB SCH ×3 (01:48→18:09)
[2017-10-05] MEDS: INSULIN SLIDING SCALE (NOVOLOG) 1 VIAL SQ SCH ×4 (06:53→21:50)
[2017-10-05] MEDS: HEPARIN NA (PORCINE) 5,000 UNITS/ML 1ML VIAL SQ SCH ×4 (06:53→21:57)
[2017-10-05] MEDS: LEVOTHYROXINE NA 25 MCG TABLET (FP) GT SCH (06:53)
[2017-10-05] MEDS ORDERED: INSULIN (NOVOLOG) ASPART 100 UNITS/ML 10ML VIAL ONE ×2 (07:01→20:38)
[2017-10-05] MEDS: ALBUTEROL SO4 2.5/IPRATROPIUM 0.5 INH SOL 3 ML VIAL.NEB. NEB SCH ×4 (07:23→22:24)
[2017-10-05] MEDS ORDERED: PT OWN MED DRAWER 7, Y5N ONE ×7 (10:46→20:40)
[2017-10-05] MEDS: GABAPENTIN 250 MG/5 ML ORAL SOLUTION, 470 ML BOTTLE GT SCH ×2 (10:56→21:41)
[2017-10-05] MEDS: HYDROCORTISONE 2.5% TOPICAL CREAM 30 GM TUBE RC SCH ×2 (10:57→21:44)
[2017-10-05] MEDS: CHLORHEXIDINE GLUCONATE 0.12% 15ML CUP MM SCH ×2 (10:57→21:45)
[2017-10-05] MEDS: LACTOBACILLUS ACIDOPHILUS 1 EACH TAB (FP) GT SCH ×2 (10:57→21:43)
[2017-10-05] MEDS: PANTOPRAZOLE 40 MG TABLET (FP) PO SCH (10:58)
[2017-10-05] MEDS: ESCITALOPRAM OXALATE 20 MG TABLET (FP) GT SCH (10:58)
[2017-10-05] MEDS: MONTELUKAST NA 10 MG TABLET GT SCH (10:58)
[2017-10-05] MEDS: FUROSEMIDE 20 MG TABLET (FP) GT SCH (10:58)
[2017-10-05] MEDS: ASPIRIN 81 MG CHEWABLE TABLETS GT SCH (10:58)
[2017-10-05] MEDS: BUDESONIDE/FORMETEROL FUMARATE 160/4.5 mcg INHALER IH SCH ×3 (11:01→21:57)
--- NOTE | 2017-10-05 11:36 | PN ---
Progress Note (short form) - Note Progress Note: PULMONARY Vented, awake. Gets tachypneic on CPAP/PS but pt denies dyspnea. No fevers recorded. Last Vital Signs Temp Pulse Resp BP Pulse Ox 97.9 F 60 48 H 129/71 98 10/05/17 09:02 10/05/17 09:50 10/05/17 10:17 10/05/17 09:02 10/05/17 09:50 Gen: vented, awake Heart: RRR Lung: distant breath sounds Abd: soft, nontender Ext: no edema CBC, BMP 10/03/17 06:00 10/03/17 06:00 Active Medications Acetaminophen (Tylenol -) 650 mg PO Q6H PRN PRN Reason: PAIN OR FEVER Last Admin: 10/04/17 01:32 Dose: 650 mg Albuterol Sulfate (Ventolin 0.083% Nebulizer Soln -) 1 amp NEB Q4H PRN PRN Reason: SHORT OF BREATH/WHEEZING Last Admin: 10/04/17 07:25 Dose: 1 amp Albuterol/Ipratropium (Duoneb -) 1 amp NEB RQID [facility] Last Admin: 10/05/17 11:06 Dose: 1 amp Aripiprazole (Abilify) 5 mg NR HS [facility] Last Admin: 10/04/17 21:43 Dose: 5 mg Aspirin (Asa -) 81 mg GT DAILY [facility] Last Admin: 10/05/17 10:58 Dose: 81 mg Budesonide/Formoterol Fumarate (Symbicort 160/4.5mcg -) 1 puff IH BID [facility] Last Admin: 10/05/17 11:01 Dose: Not Given Chlorhexidine Gluconate (Peridex -) 15 ml MM BID [facility] Last Admin: 10/05/17 10:57 Dose: 15 ml Escitalopram Oxalate (Lexapro -) 20 mg GT DAILY [facility] Last Admin: 10/05/17 10:58 Dose: 20 mg Furosemide (Lasix -) 20 mg GT DAILY [facility] Last Admin: 10/05/17 10:58 Dose: 20 mg Gabapentin (Neurontin Oral Liquid -) 600 mg GT BID [facility] Last Admin: 10/05/17 10:56 Dose: 600 mg Heparin Sodium (Porcine) (Heparin -) 5,000 unit SQ TID [facility] Last Admin: 10/05/17 06:53 Dose: Not Given Hydrocortisone (Anusol 2.5% Hc Cream -) 1 applic RC BID [facility] Last Admin: 10/05/17 10:57 Dose: 1 applic Piperacillin Sod/Tazobactam (Sod 3.375 gm/ Dextrose) 50 mls @ 100 mls/hr IVPB Q8H-IV [facility] Last Admin: 10/05/17 10:56 Dose: 100 mls/hr Insulin Aspart (Novolog Vial Sliding Scale -) 1 vial SQ HS [facility] PRN Reason: Protocol Last Admin: 10/04/17 21:44 Dose: Not Given Insulin Aspart (Novolog Vial Sliding Scale -) 1 vial SQ TIDAC [facility] PRN Reason: Protocol Last Admin: 10/05/17 06:53 Dose: Not Given Lactobacillus Acidophilus (Bacid -) 1 tab GT BID [facility] Last Admin: 10/05/17 10:57 Dose: 1 tab Levothyroxine Sodium (Synthroid -) 25 mcg GT DAILY@0700 [facility] Last Admin: 10/05/17 06:53 Dose: 25 mcg Methylprednisolone Sodium Succinate (Solu-Medrol -) 60 mg IVPUSH Q8H-IV [facility] Last Admin: 10/05/17 10:57 Dose: 60 mg Mirtazapine (Remeron -) 15 mg GT HS [facility] Last Admin: 10/04/17 21:45 Dose: 15 mg Montelukast Sodium (Singulair -) 10 mg GT DAILY [facility] Last Admin: 10/05/17 10:58 Dose: 10 mg Pantoprazole Sodium (Protonix -) 40 mg PO DAILY [facility] Last Admin: 10/05/17 10:58 Dose: 40 mg Paroxetine HCl (Paxil -) 10 mg NR HS [facility] Last Admin: 10/04/17 21:45 Dose: 10 mg Trazodone HCl (Desyrel -) 50 mg NR HS [facility] Last Admin: 10/04/17 21:43 Dose: 50 mg A/P Acute on Chronic Hypoxic and Hypercapneic Respiratory Failure r/o Pneumonia LV Diastolic Dysfunction Morbid Obesity DM Bipolar Disorder - continue empiric antibiotics - f/u cultures - will decrease medrol to 40mg q12h - inhaled bronchodilators - PO as tolerated - spontaneous breathing trials as tolerated - DVT prophylaxis
--- NOTE | 2017-10-05 13:52 | PN ---
Progress Note, Physician History of Present Illness: patient seen and examined. Chart reviewed. Comfortable. remains vent dependent. Unable to wean off Alert and awake. Afebrile. - Current Medication List Current Medications: Active Medications Acetaminophen (Tylenol -) 650 mg PO Q6H PRN PRN Reason: PAIN OR FEVER Last Admin: 10/04/17 01:32 Dose: 650 mg Albuterol Sulfate (Ventolin 0.083% Nebulizer Soln -) 1 amp NEB Q4H PRN PRN Reason: SHORT OF BREATH/WHEEZING Last Admin: 10/04/17 07:25 Dose: 1 amp Albuterol/Ipratropium (Duoneb -) 1 amp NEB RQID [facility] Last Admin: 10/05/17 11:06 Dose: 1 amp Aripiprazole (Abilify) 5 mg NR HS [facility] Last Admin: 10/04/17 21:43 Dose: 5 mg Aspirin (Asa -) 81 mg GT DAILY [facility] Last Admin: 10/05/17 10:58 Dose: 81 mg Budesonide/Formoterol Fumarate (Symbicort 160/4.5mcg -) 1 puff IH BID [facility] Last Admin: 10/05/17 11:01 Dose: Not Given Chlorhexidine Gluconate (Peridex -) 15 ml MM BID [facility] Last Admin: 10/05/17 10:57 Dose: 15 ml Escitalopram Oxalate (Lexapro -) 20 mg GT DAILY [facility] Last Admin: 10/05/17 10:58 Dose: 20 mg Furosemide (Lasix -) 20 mg GT DAILY [facility] Last Admin: 10/05/17 10:58 Dose: 20 mg Gabapentin (Neurontin Oral Liquid -) 600 mg GT BID [facility] Last Admin: 10/05/17 10:56 Dose: 600 mg Heparin Sodium (Porcine) (Heparin -) 5,000 unit SQ TID [facility] Last Admin: 10/05/17 06:53 Dose: Not Given Hydrocortisone (Anusol 2.5% Hc Cream -) 1 applic RC BID [facility] Last Admin: 10/05/17 10:57 Dose: 1 applic Piperacillin Sod/Tazobactam (Sod 3.375 gm/ Dextrose) 50 mls @ 100 mls/hr IVPB Q8H-IV [facility] Last Admin: 10/05/17 10:56 Dose: 100 mls/hr Insulin Aspart (Novolog Vial Sliding Scale -) 1 vial SQ [facility] PRN Reason: Protocol Last Admin: 10/04/17 21:44 Dose: Not Given Insulin Aspart (Novolog Vial Sliding Scale -) 1 vial SQ TIDAC [facility] PRN Reason: Protocol Last Admin: 10/05/17 12:16 Dose: 2 unit Lactobacillus Acidophilus (Bacid -) 1 tab GT BID [facility] Last Admin: 10/05/17 10:57 Dose: 1 tab Levothyroxine Sodium (Synthroid -) 25 mcg GT DAILY@0700 [facility] Last Admin: 10/05/17 06:53 Dose: 25 mcg Methylprednisolone Sodium Succinate (Solu-Medrol -) 40 mg IVPUSH BID [facility] Mirtazapine (Remeron -) 15 mg GT HS [facility] Last Admin: 10/04/17 21:45 Dose: 15 mg Montelukast Sodium (Singulair -) 10 mg GT DAILY [facility] Last Admin: 10/05/17 10:58 Dose: 10 mg Pantoprazole Sodium (Protonix -) 40 mg PO DAILY [facility] Last Admin: 10/05/17 10:58 Dose: 40 mg Paroxetine HCl (Paxil -) 10 mg NR [facility] Last Admin: 10/04/17 21:45 Dose: 10 mg Trazodone HCl (Desyrel -) 50 mg NR [facility] Last Admin: 10/04/17 21:43 Dose: 50 mg - Objective Vital Signs: Vital Signs Temperature 97.9 F 10/05/17 09:02 Pulse Rate 60 10/05/17 09:50 Respiratory Rate 48 H 10/05/17 10:17 Blood Pressure 129/71 10/05/17 09:02 O2 Sat by Pulse Oximetry (%) 98 10/05/17 09:50 Constitutional: Yes: No Distress, Calm Eyes: Yes: Conjunctiva Clear Neck: Yes: Supple, Other (status post tracheostomy--- on vent) Respiratory: Yes: Diminished Gastrointestinal: Yes: Soft Edema: No Neurological: Yes: Alert Psychiatric: Yes: Alert Labs: CBC, BMP 10/03/17 06:00 10/03/17 06:00 INR, PTT INR 1.10 (0.82-1.09) 10/01/17 16:30 Problem List - Problems (1) Acute respiratory failure Code(s): J96.00 - ACUTE RESPIRATORY FAILURE, UNSP W HYPOXIA OR HYPERCAPNIA (2) Morbid obesity Code(s): E66.01 - MORBID (SEVERE) OBESITY DUE TO EXCESS CALORIES Assessment/Plan clinically stable Meds reviewed. All consults noted and appreciated. antibiotics per ID Weaning trial Taper steroids slowly. patient wants to eat solid food--Reports she eats solid food all the [place] in the [place] [facility]. We will change. Discussed with nursing staff Will follow.
--- NOTE | 2017-10-05 14:25 | PN ---
Progress Note, Physician History of Present Illness: patient doing much better no complaints still feels sob still on ventilator - Current Medication List Current Medications: Active Medications Acetaminophen (Tylenol -) 650 mg PO Q6H PRN PRN Reason: PAIN OR FEVER Last Admin: 10/04/17 01:32 Dose: 650 mg Albuterol Sulfate (Ventolin 0.083% Nebulizer Soln -) 1 amp NEB Q4H PRN PRN Reason: SHORT OF BREATH/WHEEZING Last Admin: 10/04/17 07:25 Dose: 1 amp Albuterol/Ipratropium (Duoneb -) 1 amp NEB RQID [facility] Last Admin: 10/05/17 11:06 Dose: 1 amp Aripiprazole (Abilify) 5 mg NR HS [facility] Last Admin: 10/04/17 21:43 Dose: 5 mg Aspirin (Asa -) 81 mg GT DAILY [facility] Last Admin: 10/05/17 10:58 Dose: 81 mg Budesonide/Formoterol Fumarate (Symbicort 160/4.5mcg -) 1 puff IH BID [facility] Last Admin: 10/05/17 11:01 Dose: Not Given Chlorhexidine Gluconate (Peridex -) 15 ml MM BID [facility] Last Admin: 10/05/17 10:57 Dose: 15 ml Escitalopram Oxalate (Lexapro -) 20 mg GT DAILY [facility] Last Admin: 10/05/17 10:58 Dose: 20 mg Furosemide (Lasix -) 20 mg GT DAILY [facility] Last Admin: 10/05/17 10:58 Dose: 20 mg Gabapentin (Neurontin Oral Liquid -) 600 mg GT BID [facility] Last Admin: 10/05/17 10:56 Dose: 600 mg Heparin Sodium (Porcine) (Heparin -) 5,000 unit SQ TID [facility] Last Admin: 10/05/17 06:53 Dose: Not Given Hydrocortisone (Anusol 2.5% Hc Cream -) 1 applic RC BID [facility] Last Admin: 10/05/17 10:57 Dose: 1 applic Piperacillin Sod/Tazobactam (Sod 3.375 gm/ Dextrose) 50 mls @ 100 mls/hr IVPB Q8H-IV [facility] Last Admin: 10/05/17 10:56 Dose: 100 mls/hr Insulin Aspart (Novolog Vial Sliding Scale -) 1 vial SQ [facility] PRN Reason: Protocol Last Admin: 10/04/17 21:44 Dose: Not Given Insulin Aspart (Novolog Vial Sliding Scale -) 1 vial SQ TIDAC [facility] PRN Reason: Protocol Last Admin: 10/05/17 12:16 Dose: 2 unit Lactobacillus Acidophilus (Bacid -) 1 tab GT BID [facility] Last Admin: 10/05/17 10:57 Dose: 1 tab Levothyroxine Sodium (Synthroid -) 25 mcg GT DAILY@0700 [facility] Last Admin: 10/05/17 06:53 Dose: 25 mcg Methylprednisolone Sodium Succinate (Solu-Medrol -) 40 mg IVPUSH BID [facility] Mirtazapine (Remeron -) 15 mg GT HS [facility] Last Admin: 10/04/17 21:45 Dose: 15 mg Montelukast Sodium (Singulair -) 10 mg GT DAILY [facility] Last Admin: 10/05/17 10:58 Dose: 10 mg Pantoprazole Sodium (Protonix -) 40 mg PO DAILY [facility] Last Admin: 10/05/17 10:58 Dose: 40 mg Paroxetine HCl (Paxil -) 10 mg NR [facility] Last Admin: 10/04/17 21:45 Dose: 10 mg Trazodone HCl (Desyrel -) 50 mg NR [facility] Last Admin: 10/04/17 21:43 Dose: 50 mg - Objective Vital Signs: Vital Signs Temperature 97.9 F 10/05/17 09:02 Pulse Rate 60 10/05/17 09:50 Respiratory Rate 30 H 10/05/17 14:00 Blood Pressure 129/71 10/05/17 09:02 O2 Sat by Pulse Oximetry (%) 98 10/05/17 09:50 Constitutional: Yes: No Distress, Calm, Obese Cardiovascular: Yes: Regular Rate and Rhythm Respiratory: Yes: Mechanically Ventilated, Other Gastrointestinal: Yes: Normal Bowel Sounds, Soft Musculoskeletal: Yes: WNL Extremities: Yes: WNL Neurological: Yes: Alert, Oriented Psychiatric: Yes: Alert, Oriented Labs: CBC, BMP 10/03/17 06:00 10/03/17 06:00 INR, PTT INR 1.10 (0.82-1.09) 10/01/17 16:30 Assessment/Plan Problem List - Problems (1) Acute respiratory failure Code(s): J96.00 - ACUTE RESPIRATORY FAILURE, UNSP W HYPOXIA OR HYPERCAPNIA (2) COPD exacerbation Code(s): J44.1 - CHRONIC OBSTRUCTIVE PULMONARY DISEASE W (ACUTE) EXACERBATION (3) DVT prophylaxis Code(s): WVB7996 - (4) Morbid obesity Code(s): E66.01 - MORBID (SEVERE) OBESITY DUE TO EXCESS CALORIES (5) Polysubstance (excluding opioids) dependence Code(s): F19.20 - OTHER PSYCHOACTIVE SUBSTANCE DEPENDENCE, UNCOMPLICATED 6) R/O pneumonia plan will stop abx resp support rest as per primary team ct current mgmt
[2017-10-05] MEDS: PARoxetine HCL 10 MG TABLET (FP) NR SCH (21:43)
[2017-10-05] MEDS: traZODone HCL 50 MG TABLET (FP) NR SCH (21:43)
[2017-10-05] MEDS: MIRTAZAPINE 15 MG TABLET (FP) GT SCH (21:43)
[2017-10-05] MEDS: ARIPiprazole 5 MG TABLET (FP) NR SCH (21:44)
[2017-10-06] MEDS: PIPERACILLIN/TAZOB 3.375 GM 3.375 GM in DEXTROSE 5%-WATER - 50 ML IVPB SCH ×2 (01:49→10:48)
[2017-10-06] MEDS: HEPARIN NA (PORCINE) 5,000 UNITS/ML 1ML VIAL SQ SCH ×4 (05:30→21:31)
[2017-10-06] MEDS: INSULIN SLIDING SCALE (NOVOLOG) 1 VIAL SQ SCH ×4 (06:07→21:44)
[2017-10-06] MEDS: LEVOTHYROXINE NA 25 MCG TABLET (FP) GT SCH (06:20)
[2017-10-06] MEDS: ALBUTEROL SO4 2.5/IPRATROPIUM 0.5 INH SOL 3 ML VIAL.NEB. NEB SCH ×4 (07:55→21:00)
[2017-10-06] MEDS ORDERED: PT OWN MED DRAWER 7, Y5N ONE ×4 (10:43→21:14)
[2017-10-06] MEDS: ASPIRIN 81 MG CHEWABLE TABLETS GT SCH (10:47)
[2017-10-06] MEDS: FUROSEMIDE 20 MG TABLET (FP) GT SCH (10:47)
[2017-10-06] MEDS: PANTOPRAZOLE 40 MG TABLET (FP) PO SCH (10:47)
[2017-10-06] MEDS: ESCITALOPRAM OXALATE 20 MG TABLET (FP) GT SCH (10:47)
[2017-10-06] MEDS: MONTELUKAST NA 10 MG TABLET GT SCH (10:47)
[2017-10-06] MEDS: methylPREDNISolone NA SUCC 40 MG/1 ML VIAL IVPUSH SCH ×2 (10:47→21:24)
[2017-10-06] MEDS: LACTOBACILLUS ACIDOPHILUS 1 EACH TAB (FP) GT SCH ×2 (10:47→21:25)
[2017-10-06] MEDS: BUDESONIDE/FORMETEROL FUMARATE 160/4.5 mcg INHALER IH SCH ×2 (10:48→21:25)
[2017-10-06] MEDS: GABAPENTIN 250 MG/5 ML ORAL SOLUTION, 470 ML BOTTLE GT SCH ×2 (10:49→21:25)
[2017-10-06] MEDS: CHLORHEXIDINE GLUCONATE 0.12% 15ML CUP MM SCH ×2 (11:02→21:23)
[2017-10-06] MEDS: HYDROCORTISONE 2.5% TOPICAL CREAM 30 GM TUBE RC SCH ×2 (11:03→21:24)
--- NOTE | 2017-10-06 12:08 | PN ---
Progress Note (short form) - Note Progress Note: PULMONARY Vented, awake. States breathing is improved. Tolerating SIMV. No fevers recorded. Last Vital Signs Temp Pulse Resp BP Pulse Ox 98.4 F 53 L 23 105/55 99 10/06/17 10:37 10/06/17 10:37 10/06/17 10:37 10/06/17 10:37 10/05/17 21:00 Gen: vented, awake Heart: RRR Lung: distant breath sounds Abd: soft, nontender Ext: no edema CBC, BMP 10/03/17 06:00 10/03/17 06:00 Active Medications Acetaminophen (Tylenol -) 650 mg PO Q6H PRN PRN Reason: PAIN OR FEVER Last Admin: 10/04/17 01:32 Dose: 650 mg Albuterol Sulfate (Ventolin 0.083% Nebulizer Soln -) 1 amp NEB Q4H PRN PRN Reason: SHORT OF BREATH/WHEEZING Last Admin: 10/04/17 07:25 Dose: 1 amp Albuterol/Ipratropium (Duoneb -) 1 amp NEB RQID [facility] Last Admin: 10/06/17 07:55 Dose: 1 amp Aripiprazole (Abilify) 5 mg NR HS [facility] Last Admin: 10/05/17 21:44 Dose: 5 mg Aspirin (Asa -) 81 mg GT DAILY [facility] Last Admin: 10/06/17 10:47 Dose: 81 mg Budesonide/Formoterol Fumarate (Symbicort 160/4.5mcg -) 1 puff IH BID [facility] Last Admin: 10/06/17 10:48 Dose: 1 puff Chlorhexidine Gluconate (Peridex -) 15 ml MM BID [facility] Last Admin: 10/06/17 11:02 Dose: 15 ml Escitalopram Oxalate (Lexapro -) 20 mg GT DAILY [facility] Last Admin: 10/06/17 10:47 Dose: 20 mg Furosemide (Lasix -) 20 mg GT DAILY [facility] Last Admin: 10/06/17 10:47 Dose: 20 mg Gabapentin (Neurontin Oral Liquid -) 600 mg GT BID [facility] Last Admin: 10/06/17 10:49 Dose: 600 mg Heparin Sodium (Porcine) (Heparin -) 5,000 unit SQ TID [facility] Last Admin: 10/06/17 05:30 Dose: Not Given Hydrocortisone (Anusol 2.5% Hc Cream -) 1 applic RC BID [facility] Last Admin: 10/06/17 11:03 Dose: 1 applic Piperacillin Sod/Tazobactam (Sod 3.375 gm/ Dextrose) 50 mls @ 100 mls/hr IVPB Q8H-IV [facility] Last Admin: 10/06/17 10:48 Dose: 100 mls/hr Insulin Aspart (Novolog Vial Sliding Scale -) 1 vial SQ [facility] PRN Reason: Protocol Last Admin: 10/05/17 21:50 Dose: Not Given Insulin Aspart (Novolog Vial Sliding Scale -) 1 vial SQ [facility]IDAC [facility] PRN Reason: Protocol Last Admin: 10/06/17 11:22 Dose: Not Given Lactobacillus Acidophilus (Bacid -) 1 tab GT BID [facility] Last Admin: 10/06/17 10:47 Dose: 1 tab Levothyroxine Sodium (Synthroid -) 25 mcg GT DAILY@0700 [facility] Last Admin: 10/06/17 06:20 Dose: 25 mcg Methylprednisolone Sodium Succinate (Solu-Medrol -) 40 mg IVPUSH BID [facility] Last Admin: 10/06/17 10:47 Dose: 40 mg Mirtazapine (Remeron -) 15 mg GT HS [facility] Last Admin: 10/05/17 21:43 Dose: 15 mg Montelukast Sodium (Singulair -) 10 mg GT DAILY [facility] Last Admin: 10/06/17 10:47 Dose: 10 mg Pantoprazole Sodium (Protonix -) 40 mg PO DAILY [facility] Last Admin: 10/06/17 10:47 Dose: 40 mg Paroxetine HCl (Paxil -) 10 mg NR HS [facility] Last Admin: 10/05/17 21:43 Dose: 10 mg Trazodone HCl (Desyrel -) 50 mg NR HS [facility] Last Admin: 10/05/17 21:43 Dose: 50 mg A/P Acute on Chronic Hypoxic and Hypercapneic Respiratory Failure r/o Pneumonia LV Diastolic Dysfunction Morbid Obesity DM Bipolar Disorder - can place pt on trach collar - continue empiric antibiotics - continue medrol 40mg q12h - inhaled bronchodilators - PO as tolerated - DVT prophylaxis
--- NOTE | 2017-10-06 13:53 | PN ---
Progress Note, Physician History of Present Illness: stable no issues says she is breathing better no complaints - Current Medication List Current Medications: Active Medications Acetaminophen (Tylenol -) 650 mg PO Q6H PRN PRN Reason: PAIN OR FEVER Last Admin: 10/04/17 01:32 Dose: 650 mg Albuterol Sulfate (Ventolin 0.083% Nebulizer Soln -) 1 amp NEB Q4H PRN PRN Reason: SHORT OF BREATH/WHEEZING Last Admin: 10/04/17 07:25 Dose: 1 amp Albuterol/Ipratropium (Duoneb -) 1 amp NEB RQID [facility] Last Admin: 10/06/17 11:45 Dose: 1 amp Aripiprazole (Abilify) 5 mg NR HS [facility] Last Admin: 10/05/17 21:44 Dose: 5 mg Aspirin (Asa -) 81 mg GT DAILY [facility] Last Admin: 10/06/17 10:47 Dose: 81 mg Budesonide/Formoterol Fumarate (Symbicort 160/4.5mcg -) 1 puff IH BID [facility] Last Admin: 10/06/17 10:48 Dose: 1 puff Chlorhexidine Gluconate (Peridex -) 15 ml MM BID [facility] Last Admin: 10/06/17 11:02 Dose: 15 ml Escitalopram Oxalate (Lexapro -) 20 mg GT DAILY [facility] Last Admin: 10/06/17 10:47 Dose: 20 mg Furosemide (Lasix -) 20 mg GT DAILY [facility] Last Admin: 10/06/17 10:47 Dose: 20 mg Gabapentin (Neurontin Oral Liquid -) 600 mg GT BID [facility] Last Admin: 10/06/17 10:49 Dose: 600 mg Heparin Sodium (Porcine) (Heparin -) 5,000 unit SQ TID [facility] Last Admin: 10/06/17 05:30 Dose: Not Given Hydrocortisone (Anusol 2.5% Hc Cream -) 1 applic RC BID [facility] Last Admin: 10/06/17 11:03 Dose: 1 applic Piperacillin Sod/Tazobactam (Sod 3.375 gm/ Dextrose) 50 mls @ 100 mls/hr IVPB Q8H-IV [facility] Last Admin: 10/06/17 10:48 Dose: 100 mls/hr Insulin Aspart (Novolog Vial Sliding Scale -) 1 vial SQ [facility] PRN Reason: Protocol Last Admin: 10/05/17 21:50 Dose: Not Given Insulin Aspart (Novolog Vial Sliding Scale -) 1 vial SQ TIDAC [facility] PRN Reason: Protocol Last Admin: 10/06/17 11:22 Dose: Not Given Lactobacillus Acidophilus (Bacid -) 1 tab GT BID [facility] Last Admin: 10/06/17 10:47 Dose: 1 tab Levothyroxine Sodium (Synthroid -) 25 mcg GT DAILY@0700 [facility] Last Admin: 10/06/17 06:20 Dose: 25 mcg Methylprednisolone Sodium Succinate (Solu-Medrol -) 40 mg IVPUSH BID [facility] Last Admin: 10/06/17 10:47 Dose: 40 mg Mirtazapine (Remeron -) 15 mg GT [facility] Last Admin: 10/05/17 21:43 Dose: 15 mg Montelukast Sodium (Singulair -) 10 mg GT DAILY [facility] Last Admin: 10/06/17 10:47 Dose: 10 mg Pantoprazole Sodium (Protonix -) 40 mg PO DAILY [facility] Last Admin: 10/06/17 10:47 Dose: 40 mg Paroxetine HCl (Paxil -) 10 mg NR [facility] Last Admin: 10/05/17 21:43 Dose: 10 mg Trazodone HCl (Desyrel -) 50 mg NR [facility] Last Admin: 10/05/17 21:43 Dose: 50 mg - Objective Vital Signs: Vital Signs Temperature 98.4 F 10/06/17 10:37 Pulse Rate 53 L 10/06/17 10:37 Respiratory Rate 20 10/06/17 12:59 Blood Pressure 105/55 10/06/17 10:37 O2 Sat by Pulse Oximetry (%) 99 10/05/17 21:00 Constitutional: Yes: No Distress, Calm, Obese Neck: Yes: Supple Cardiovascular: Yes: Regular Rate and Rhythm Respiratory: Yes: Mechanically Ventilated, Other Gastrointestinal: Yes: Normal Bowel Sounds, Soft Musculoskeletal: Yes: WNL Extremities: Yes: WNL Neurological: Yes: Alert, Oriented Psychiatric: Yes: Alert, Oriented Labs: CBC, BMP 10/03/17 06:00 10/03/17 06:00 INR, PTT INR 1.10 (0.82-1.09) 10/01/17 16:30 Assessment/Plan Problem List - Problems (1) Acute respiratory failure Code(s): J96.00 - ACUTE RESPIRATORY FAILURE, UNSP W HYPOXIA OR HYPERCAPNIA (2) COPD exacerbation Code(s): J44.1 - CHRONIC OBSTRUCTIVE PULMONARY DISEASE W (ACUTE) EXACERBATION (3) DVT prophylaxis Code(s): [id number] - (4) Morbid obesity Code(s): E66.01 - MORBID (SEVERE) OBESITY DUE TO EXCESS CALORIES (5) Polysubstance (excluding opioids) dependence Code(s): F19.20 - OTHER PSYCHOACTIVE SUBSTANCE DEPENDENCE, UNCOMPLICATED 6) R/O pneumonia plan off of abx resp support rest as per primary team ct current mgmt weaning of the vent
--- NOTE | 2017-10-06 13:56 | PN ---
Progress Note, Physician Chief Complaint: Events noted Pt wants to be off the vent she is able to tolerate PO no distress unable to wean - Current Medication List Current Medications: Active Medications Acetaminophen (Tylenol -) 650 mg PO Q6H PRN PRN Reason: PAIN OR FEVER Last Admin: 10/04/17 01:32 Dose: 650 mg Albuterol Sulfate (Ventolin 0.083% Nebulizer Soln -) 1 amp NEB Q4H PRN PRN Reason: SHORT OF BREATH/WHEEZING Last Admin: 10/04/17 07:25 Dose: 1 amp Albuterol/Ipratropium (Duoneb -) 1 amp NEB RQID [facility] Last Admin: 10/06/17 11:45 Dose: 1 amp Aripiprazole (Abilify) 5 mg NR HS [facility] Last Admin: 10/05/17 21:44 Dose: 5 mg Aspirin (Asa -) 81 mg GT DAILY [facility] Last Admin: 10/06/17 10:47 Dose: 81 mg Budesonide/Formoterol Fumarate (Symbicort 160/4.5mcg -) 1 puff IH BID [facility] Last Admin: 10/06/17 10:48 Dose: 1 puff Chlorhexidine Gluconate (Peridex -) 15 ml MM BID [facility] Last Admin: 10/06/17 11:02 Dose: 15 ml Escitalopram Oxalate (Lexapro -) 20 mg GT DAILY [facility] Last Admin: 10/06/17 10:47 Dose: 20 mg Furosemide (Lasix -) 20 mg GT DAILY [facility] Last Admin: 10/06/17 10:47 Dose: 20 mg Gabapentin (Neurontin Oral Liquid -) 600 mg GT BID [facility] Last Admin: 10/06/17 10:49 Dose: 600 mg Heparin Sodium (Porcine) (Heparin -) 5,000 unit SQ TID [facility] Last Admin: 10/06/17 05:30 Dose: Not Given Hydrocortisone (Anusol 2.5% Hc Cream -) 1 applic RC BID [facility] Last Admin: 10/06/17 11:03 Dose: 1 applic Insulin Aspart (Novolog Vial Sliding Scale -) 1 vial SQ [facility] PRN Reason: Protocol Last Admin: 10/05/17 21:50 Dose: Not Given Insulin Aspart (Novolog Vial Sliding Scale -) 1 vial SQ [facility] PRN Reason: Protocol Last Admin: 10/06/17 11:22 Dose: Not Given Lactobacillus Acidophilus (Bacid -) 1 tab GT BID [facility] Last Admin: 10/06/17 10:47 Dose: 1 tab Levothyroxine Sodium (Synthroid -) 25 mcg GT DAILY@0700 [facility] Last Admin: 10/06/17 06:20 Dose: 25 mcg Methylprednisolone Sodium Succinate (Solu-Medrol -) 40 mg IVPUSH BID [facility] Last Admin: 10/06/17 10:47 Dose: 40 mg Mirtazapine (Remeron -) 15 mg GT HS [facility] Last Admin: 10/05/17 21:43 Dose: 15 mg Montelukast Sodium (Singulair -) 10 mg GT DAILY [facility] Last Admin: 10/06/17 10:47 Dose: 10 mg Pantoprazole Sodium (Protonix -) 40 mg PO DAILY [facility] Last Admin: 10/06/17 10:47 Dose: 40 mg Paroxetine HCl (Paxil -) 10 mg NR [facility] Last Admin: 10/05/17 21:43 Dose: 10 mg Trazodone HCl (Desyrel -) 50 mg NR [facility] Last Admin: 10/05/17 21:43 Dose: 50 mg - Objective Vital Signs: Vital Signs Temperature 98.4 F 10/06/17 10:37 Pulse Rate 53 L 10/06/17 10:37 Respiratory Rate 20 10/06/17 12:59 Blood Pressure 105/55 10/06/17 10:37 O2 Sat by Pulse Oximetry (%) 99 10/05/17 21:00 Constitutional: Yes: No Distress Cardiovascular: Yes: Regular Rate and Rhythm Respiratory: Yes: Diminished, Mechanically Ventilated Gastrointestinal: Yes: Normal Bowel Sounds, Soft, Other (GT+). No: Tenderness Edema: No Labs: CBC, BMP 10/03/17 06:00 10/03/17 06:00 INR, PTT INR 1.10 (0.82-1.09) 10/01/17 16:30 Problem List - Problems (1) Acute respiratory failure Code(s): J96.00 - ACUTE RESPIRATORY FAILURE, UNSP W HYPOXIA OR HYPERCAPNIA (2) COPD exacerbation Code(s): J44.1 - CHRONIC OBSTRUCTIVE PULMONARY DISEASE W (ACUTE) EXACERBATION (3) Diabetes Code(s): E11.9 - TYPE 2 DIABETES MELLITUS WITHOUT COMPLICATIONS (4) Neuropathy Code(s): G62.9 - POLYNEUROPATHY, UNSPECIFIED (5) Depression Code(s): F32.9 - MAJOR DEPRESSIVE DISORDER, SINGLE EPISODE, UNSPECIFIED Assessment/Plan PLAN Weaning as tolerated Swallow eval Medrol dc antibiotics per ID continue with meds
--- NOTE | 2017-10-06 14:19 | CONSULT ---
Admitting History and Physical - Primary Care Physician PCP: Candice Rockwell - Admission History of Present Illness: per emr HISTORY OF PRESENT ILLNESS: This is a 52 year old female with a significant past medical history of chronic hypercapneic, hypoxic respiratory failure, trach dependent but not vent depentdent who presented to the ED from [facility] with SOB and ox sat of 80%. Pt reports feeling much better now on vent. Of note, pt was recently hospitalized 09/22-09/26 at [facility] for pna,diet, Diet: diabetc/sodium controlled - dysphagia Chopped - nectar thick liquids SNF diet: Mechanical soft, heart healthy, nectar thick liquids; pt confirmed foods was soft and thickened Today on regular diet today. She had a turkey sandwich. Pt known to me from out pt mbs 09/01/17. She was on a trach collar, without previous use of PMV. Pt had a brisk swallow, without aspiration/stasis, but with deep penetration on thick and thin liquids, likely sec to open tracheostomy. PMV was recommended as well as soft diet/single sips of thin liquid. Pt did well until hospitalization at [facility]. 09/22. MBS was repeated. Awaiting report/ results. However, pt reports liquids were downgraded to nectar thick. History Source: Patient, Medical Record Limitations to Obtaining History: No Limitations - Past Medical History RN ACLS: No: Alzheimer's Cardiovascular: No: AFIB Pulmonary: Yes: COPD Gastrointestinal: Yes: Other (colon polyps) Hepatobiliary: No: Cirrhosis Renal/: No: Renal Failure Heme/Onc: Yes: Anemia Infectious Disease: No: AIDS Psych: Yes: Bipolar - Smoking History Smoking history: Current every day smoker Have you smoked in the past 12 months: Yes Aproximately how many cigarettes per day: 5 If you are a former smoker, when did you quit?: 2013 - Alcohol/Substance Use Hx Alcohol Use: No History of Substance Use: reports: Marijuana - Social History History of Recent Travel: No History - Admission Reason For Visit: COPD/ACUTE RESP FAIL WITH HYPOXIA AND HYPERCAPNIA - Diagnostics X-ray: Report Reviewed - General Mental Status: Alert and Oriented, Awake and Alert, Able to Follow Commands Attention: Intact Ability to Follow Directions: Excellent Head/Neck Control: WFL - Hearing Hearing: Normal Hearing Aide: No Speech Evaluation - Communication Primary Language: SYRIAC Communication: Yes: Simple Responses (mouthing words/on ventilator. Audible with cuff dflated initially, while still connected to vent but aphonic off vent/ cuff deflated. Call placed to Dr. Rockwell. PMV to be deferred at this time, per Dr. Barber.) - Speech Characteristics Articulation: Yes: Precise - Swallow Evaluation/Bedside Assessment Current Nutritional Intake: Regular, Thin Liquids (?), [place] Textured Liquids ( ?) Tracheostomy Present: Yes Dentition: Yes: Missing Teeth Facial Symmetry at Rest: Symmetrical Facial Symmetry on Retraction: Symmetrical Facial Movement: Controlled Against Resistance Opening: Normal Against Resistance Closing: Normal Pucker Lips: Normal Smile: Normal Lingual Movement: Normal, Symmetric Lingual Speed of Movement: Normal Lingual Movement Strgth Against Opposition: Normal Lingual Movement Characteristics: Normal Velopharyngeal Movement: Normal Laryngeal Elevation: WFL Laryngeal Movement: Able to Palpate Labial Seal: WFL Chewing: WFL Oral Prep Time: WFL A-P Transit: WFL Pocketing: None Timing of Swallow: WFL Recommendations - Speech Evaluation, Impression/Plan Impression: r/o aspiration - Dysphagia Impressions/Plan Dysphagia Impressions: Ongoing Evaluation *Silent aspiration: cannot be R/O at bedside Recommendations: MBS w Esophagus, [place] Valve - Recommendations Diet Consistency: Regular (soft) Liquids: [place] Thick (no straws. single sips. no continuous drinking)
[2017-10-06] MEDS: ARIPiprazole 5 MG TABLET (FP) NR SCH (21:22)
[2017-10-06] MEDS: MIRTAZAPINE 15 MG TABLET (FP) GT SCH (21:22)
[2017-10-06] MEDS: PARoxetine HCL 10 MG TABLET (FP) NR SCH (21:23)
[2017-10-06] MEDS: traZODone HCL 50 MG TABLET (FP) NR SCH (21:24)
[2017-10-07] MEDS: HEPARIN NA (PORCINE) 5,000 UNITS/ML 1ML VIAL SQ SCH ×3 (05:46→22:01)
[2017-10-07] MEDS: INSULIN SLIDING SCALE (NOVOLOG) 1 VIAL SQ SCH ×4 (06:00→22:03)
[2017-10-07] MEDS: LEVOTHYROXINE NA 25 MCG TABLET (FP) GT SCH (06:40)
[2017-10-07] MEDS ORDERED: PT OWN MED DRAWER 7, Y5N ONE ×4 (07:44→17:58)
[2017-10-07] MEDS: ALBUTEROL SO4 2.5/IPRATROPIUM 0.5 INH SOL 3 ML VIAL.NEB. NEB SCH ×4 (08:24→20:22)
[2017-10-07] MEDS: PANTOPRAZOLE 40 MG TABLET (FP) PO SCH (09:55)
[2017-10-07] MEDS: FUROSEMIDE 20 MG TABLET (FP) GT SCH (09:55)
[2017-10-07] MEDS: LACTOBACILLUS ACIDOPHILUS 1 EACH TAB (FP) GT SCH ×2 (09:55→22:01)
[2017-10-07] MEDS: MONTELUKAST NA 10 MG TABLET GT SCH (09:55)
[2017-10-07] MEDS: HYDROCORTISONE 2.5% TOPICAL CREAM 30 GM TUBE RC SCH ×2 (09:55→22:00)
[2017-10-07] MEDS: methylPREDNISolone NA SUCC 40 MG/1 ML VIAL IVPUSH SCH ×2 (09:55→22:01)
[2017-10-07] MEDS: ASPIRIN 81 MG CHEWABLE TABLETS GT SCH (09:55)
[2017-10-07] MEDS: ESCITALOPRAM OXALATE 20 MG TABLET (FP) GT SCH (09:55)
[2017-10-07] MEDS: CHLORHEXIDINE GLUCONATE 0.12% 15ML CUP MM SCH ×2 (09:56→22:04)
[2017-10-07] MEDS: GABAPENTIN 250 MG/5 ML ORAL SOLUTION, 470 ML BOTTLE GT SCH ×2 (09:56→21:59)
[2017-10-07] MEDS: BUDESONIDE/FORMETEROL FUMARATE 160/4.5 mcg INHALER IH SCH ×2 (09:57→22:40)
--- NOTE | 2017-10-07 12:16 | PN ---
Progress Note (short form) - Note Progress Note: PULMONARY Tolerating trach collar but vented overnight. c/o secretions. No fevers or chills. Last Vital Signs Temp Pulse Resp BP Pulse Ox 97.5 F L 64 19 121/59 100 10/07/17 10:00 10/07/17 10:00 10/07/17 11:26 10/07/17 10:00 10/06/17 11:00 Gen: mildly tachypneic on trach collar Heart: RRR Lung: scattered rhonchi Abd: soft, nontender Ext: no edema CBC, BMP 10/03/17 06:00 10/03/17 06:00 Active Medications Acetaminophen (Tylenol -) 650 mg PO Q6H PRN PRN Reason: PAIN OR FEVER Last Admin: 10/04/17 01:32 Dose: 650 mg Albuterol Sulfate (Ventolin 0.083% Nebulizer Soln -) 1 amp NEB Q4H PRN PRN Reason: SHORT OF BREATH/WHEEZING Last Admin: 10/04/17 07:25 Dose: 1 amp Albuterol/Ipratropium (Duoneb -) 1 amp NEB RQID [facility] Last Admin: 10/07/17 11:29 Dose: 1 amp Aripiprazole (Abilify) 5 mg NR HS [facility] Last Admin: 10/06/17 21:22 Dose: 5 mg Aspirin (Asa -) 81 mg GT DAILY [facility] Last Admin: 10/07/17 09:55 Dose: 81 mg Budesonide/Formoterol Fumarate (Symbicort 160/4.5mcg -) 1 puff IH BID [facility] Last Admin: 10/07/17 09:57 Dose: Not Given Chlorhexidine Gluconate (Peridex -) 15 ml MM BID [facility] Last Admin: 10/07/17 09:56 Dose: 15 ml Escitalopram Oxalate (Lexapro -) 20 mg GT DAILY [facility] Last Admin: 10/07/17 09:55 Dose: 20 mg Furosemide (Lasix -) 20 mg GT DAILY [facility] Last Admin: 10/07/17 09:55 Dose: 20 mg Gabapentin (Neurontin Oral Liquid -) 600 mg GT BID [facility] Last Admin: 10/07/17 09:56 Dose: 600 mg Heparin Sodium (Porcine) (Heparin -) 5,000 unit SQ TID [facility] Last Admin: 03/21/18 05:46 Dose: Not Given Hydrocortisone (Anusol 2.5% Hc Cream -) 1 applic RC BID [facility] Last Admin: 10/07/17 09:55 Dose: 1 applic Insulin Aspart (Novolog Vial Sliding Scale -) 1 vial SQ HS [facility] PRN Reason: Protocol Last Admin: 10/06/17 21:44 Dose: Not Given Insulin Aspart (Novolog Vial Sliding Scale -) 1 vial SQ TIDAC [facility] PRN Reason: Protocol Last Admin: 10/07/17 11:02 Dose: Not Given Lactobacillus Acidophilus (Bacid -) 1 tab GT BID [facility] Last Admin: 10/07/17 09:55 Dose: 1 tab Levothyroxine Sodium (Synthroid -) 25 mcg GT DAILY@0700 [facility] Last Admin: 10/07/17 06:40 Dose: 25 mcg Methylprednisolone Sodium Succinate (Solu-Medrol -) 40 mg IVPUSH BID [facility] Last Admin: 10/07/17 09:55 Dose: 40 mg Mirtazapine (Remeron -) 15 mg GT [facility] Last Admin: 10/06/17 21:22 Dose: 15 mg Montelukast Sodium (Singulair -) 10 mg GT DAILY [facility] Last Admin: 10/07/17 09:55 Dose: 10 mg Pantoprazole Sodium (Protonix -) 40 mg PO DAILY [facility] Last Admin: 10/07/17 09:55 Dose: 40 mg Paroxetine HCl (Paxil -) 10 mg NR [facility] Last Admin: 10/06/17 21:23 Dose: 10 mg Trazodone HCl (Desyrel -) 50 mg NR [facility] Last Admin: 10/06/17 21:24 Dose: 50 mg A/P Acute on Chronic Hypoxic and Hypercapneic Respiratory Failure r/o Pneumonia LV Diastolic Dysfunction Morbid Obesity DM Bipolar Disorder - trach collar as tolerated - agree with monitoring off antibiotics - continue medrol 40mg q12h - inhaled bronchodilators - will add scopolamine patch - PO as tolerated - DVT prophylaxis
--- NOTE | 2017-10-07 12:24 | PN ---
Progress Note, Physician Chief Complaint: Pt wants to be off the vent she is able to tolerate PO no distress on trach collar now-- was on the vent last night - Current Medication List Current Medications: Active Medications Acetaminophen (Tylenol -) 650 mg PO Q6H PRN PRN Reason: PAIN OR FEVER Last Admin: 10/04/17 01:32 Dose: 650 mg Albuterol Sulfate (Ventolin 0.083% Nebulizer Soln -) 1 amp NEB Q4H PRN PRN Reason: SHORT OF BREATH/WHEEZING Last Admin: 10/04/17 07:25 Dose: 1 amp Albuterol/Ipratropium (Duoneb -) 1 amp NEB RQID [facility] Last Admin: 10/07/17 11:29 Dose: 1 amp Aripiprazole (Abilify) 5 mg NR HS [facility] Last Admin: 10/06/17 21:22 Dose: 5 mg Aspirin (Asa -) 81 mg GT DAILY [facility] Last Admin: 10/07/17 09:55 Dose: 81 mg Budesonide/Formoterol Fumarate (Symbicort 160/4.5mcg -) 1 puff IH BID [facility] Last Admin: 10/07/17 09:57 Dose: Not Given Chlorhexidine Gluconate (Peridex -) 15 ml MM BID [facility] Last Admin: 10/07/17 09:56 Dose: 15 ml Escitalopram Oxalate (Lexapro -) 20 mg GT DAILY [facility] Last Admin: 10/07/17 09:55 Dose: 20 mg Furosemide (Lasix -) 20 mg GT DAILY [facility] Last Admin: 10/07/17 09:55 Dose: 20 mg Gabapentin (Neurontin Oral Liquid -) 600 mg GT BID [facility] Last Admin: 10/07/17 09:56 Dose: 600 mg Heparin Sodium (Porcine) (Heparin -) 5,000 unit SQ TID [facility] Last Admin: 10/07/17 05:46 Dose: Not Given Hydrocortisone (Anusol 2.5% Hc Cream -) 1 applic RC BID [facility] Last Admin: 10/07/17 09:55 Dose: 1 applic Insulin Aspart (Novolog Vial Sliding Scale -) 1 vial SQ HS [facility] PRN Reason: Protocol Last Admin: 10/06/17 21:44 Dose: Not Given Insulin Aspart (Novolog Vial Sliding Scale -) 1 vial SQ TIDAC [facility] PRN Reason: Protocol Last Admin: 10/07/17 11:02 Dose: Not Given Lactobacillus Acidophilus (Bacid -) 1 tab GT BID [facility] Last Admin: 10/07/17 09:55 Dose: 1 tab Levothyroxine Sodium (Synthroid -) 25 mcg GT DAILY@0700 [facility] Last Admin: 10/07/17 06:40 Dose: 25 mcg Methylprednisolone Sodium Succinate (Solu-Medrol -) 40 mg IVPUSH BID [facility] Last Admin: 10/07/17 09:55 Dose: 40 mg Mirtazapine (Remeron -) 15 mg GT HS [facility] Last Admin: 10/06/17 21:22 Dose: 15 mg Montelukast Sodium (Singulair -) 10 mg GT DAILY [facility] Last Admin: 10/07/17 09:55 Dose: 10 mg Pantoprazole Sodium (Protonix -) 40 mg PO DAILY [facility] Last Admin: 10/07/17 09:55 Dose: 40 mg Paroxetine HCl (Paxil -) 10 mg NR HS [facility] Last Admin: 10/06/17 21:23 Dose: 10 mg Scopolamine HBr (Transderm-Scop -) 1 patch TD Q72H [facility] Trazodone HCl (Desyrel -) 50 mg NR [facility] Last Admin: 10/06/17 21:24 Dose: 50 mg - Objective Vital Signs: Vital Signs Temperature 97.5 F L 10/07/17 10:00 Pulse Rate 64 10/07/17 10:00 Respiratory Rate 19 10/07/17 11:26 Blood Pressure 121/59 10/07/17 10:00 O2 Sat by Pulse Oximetry (%) 100 10/06/17 11:00 Constitutional: Yes: No Distress Cardiovascular: Yes: Regular Rate and Rhythm Respiratory: Yes: Diminished, Other (secretions+) Gastrointestinal: Yes: Normal Bowel Sounds, Soft. No: Tenderness Edema: No Labs: CBC, BMP 10/03/17 06:00 10/03/17 06:00 INR, PTT INR 1.10 (0.82-1.09) 10/01/17 16:30 Problem List - Problems (1) Acute respiratory failure Code(s): J96.00 - ACUTE RESPIRATORY FAILURE, UNSP W HYPOXIA OR HYPERCAPNIA (2) COPD exacerbation Code(s): J44.1 - CHRONIC OBSTRUCTIVE PULMONARY DISEASE W (ACUTE) EXACERBATION (3) Diabetes Code(s): E11.9 - TYPE 2 DIABETES MELLITUS WITHOUT COMPLICATIONS (4) Neuropathy Code(s): G62.9 - POLYNEUROPATHY, UNSPECIFIED (5) Depression Code(s): F32.9 - MAJOR DEPRESSIVE DISORDER, SINGLE EPISODE, UNSPECIFIED Assessment/Plan PLAN Weaning as tolerated Swallow eval noted-- may use passy rolando valve today Medrol BID off antibiotics per ID continue with meds scopolamine patch for excessive secretions
--- NOTE | 2017-10-07 12:57 | PN ---
Progress Note, Physician History of Present Illness: patient stable off of ventilator patient sputum is growing bacteria - Current Medication List Current Medications: Active Medications Acetaminophen (Tylenol -) 650 mg PO Q6H PRN PRN Reason: PAIN OR FEVER Last Admin: 10/04/17 01:32 Dose: 650 mg Albuterol Sulfate (Ventolin 0.083% Nebulizer Soln -) 1 amp NEB Q4H PRN PRN Reason: SHORT OF BREATH/WHEEZING Last Admin: 10/04/17 07:25 Dose: 1 amp Albuterol/Ipratropium (Duoneb -) 1 amp NEB RQID [facility] Last Admin: 10/07/17 11:29 Dose: 1 amp Aripiprazole (Abilify) 5 mg NR HS [facility] Last Admin: 10/06/17 21:22 Dose: 5 mg Aspirin (Asa -) 81 mg GT DAILY [facility] Last Admin: 10/07/17 09:55 Dose: 81 mg Budesonide/Formoterol Fumarate (Symbicort 160/4.5mcg -) 1 puff IH BID [facility] Last Admin: 10/07/17 09:57 Dose: Not Given Chlorhexidine Gluconate (Peridex -) 15 ml MM BID [facility] Last Admin: 10/07/17 09:56 Dose: 15 ml Escitalopram Oxalate (Lexapro -) 20 mg GT DAILY [facility] Last Admin: 10/07/17 09:55 Dose: 20 mg Furosemide (Lasix -) 20 mg GT DAILY [facility] Last Admin: 10/07/17 09:55 Dose: 20 mg Gabapentin (Neurontin Oral Liquid -) 600 mg GT BID [facility] Last Admin: 10/07/17 09:56 Dose: 600 mg Heparin Sodium (Porcine) (Heparin -) 5,000 unit SQ TID [facility] Last Admin: 10/07/17 05:46 Dose: Not Given Hydrocortisone (Anusol 2.5% Hc Cream -) 1 applic RC BID [facility] Last Admin: 10/07/17 09:55 Dose: 1 applic Piperacillin/Tazobactam/Dextrose (Zosyn 3.375gm Ivpb (Premix)) 50 mls @ 100 mls /hr IVPB Q8H-IV [facility] PRN Reason: Protocol Insulin Aspart (Novolog Vial Sliding Scale -) 1 vial SQ HS [facility] PRN Reason: Protocol Last Admin: 10/06/17 21:44 Dose: Not Given Insulin Aspart (Novolog Vial Sliding Scale -) 1 vial SQ TIDAC [facility] PRN Reason: Protocol Last Admin: 10/07/17 11:02 Dose: Not Given Lactobacillus Acidophilus (Bacid -) 1 tab GT BID [facility] Last Admin: 10/07/17 09:55 Dose: 1 tab Levothyroxine Sodium (Synthroid -) 25 mcg GT DAILY@0700 [facility] Last Admin: 10/07/17 06:40 Dose: 25 mcg Methylprednisolone Sodium Succinate (Solu-Medrol -) 40 mg IVPUSH BID [facility] Last Admin: 10/07/17 09:55 Dose: 40 mg Mirtazapine (Remeron -) 15 mg GT HS [facility] Last Admin: 10/06/17 21:22 Dose: 15 mg Montelukast Sodium (Singulair -) 10 mg GT DAILY [facility] Last Admin: 10/07/17 09:55 Dose: 10 mg Pantoprazole Sodium (Protonix -) 40 mg PO DAILY [facility] Last Admin: 10/07/17 09:55 Dose: 40 mg Paroxetine HCl (Paxil -) 10 mg NR [facility] Last Admin: 10/06/17 21:23 Dose: 10 mg Scopolamine HBr (Transderm-Scop -) 1 patch TD Q72H [facility] Trazodone HCl (Desyrel -) 50 mg NR [facility] Last Admin: 10/06/17 21:24 Dose: 50 mg - Objective Vital Signs: Vital Signs Temperature 97.5 F L 10/07/17 10:00 Pulse Rate 64 10/07/17 10:00 Respiratory Rate 19 10/07/17 11:26 Blood Pressure 121/59 10/07/17 10:00 O2 Sat by Pulse Oximetry (%) 100 10/06/17 11:00 Constitutional: Yes: No Distress, Calm, Obese Neck: Yes: Other Cardiovascular: Yes: Regular Rate and Rhythm Respiratory: Yes: Regular, Poor Air Entry Gastrointestinal: Yes: Normal Bowel Sounds, Soft Musculoskeletal: Yes: WNL Extremities: Yes: WNL Neurological: Yes: Alert, Oriented Psychiatric: Yes: Alert, Oriented Labs: CBC, BMP 10/03/17 06:00 10/03/17 06:00 INR, PTT INR 1.10 (0.82-1.09) 10/01/17 16:30 Assessment/Plan Problem List - Problems (1) Acute respiratory failure Code(s): J96.00 - ACUTE RESPIRATORY FAILURE, UNSP W HYPOXIA OR HYPERCAPNIA (2) COPD exacerbation Code(s): J44.1 - CHRONIC OBSTRUCTIVE PULMONARY DISEASE W (ACUTE) EXACERBATION (3) DVT prophylaxis Code(s): [id number] - (4) Morbid obesity Code(s): E66.01 - MORBID (SEVERE) OBESITY DUE TO EXCESS CALORIES (5) Polysubstance (excluding opioids) dependence Code(s): F19.20 - OTHER PSYCHOACTIVE SUBSTANCE DEPENDENCE, UNCOMPLICATED 6) pneumonia patients sputum is positive i suspect patient probably has VAP plan will restart patient on zosyn await for identification of the bacteria; rest continue current mgmt
[2017-10-07] MEDS: PIPERACILLIN/TAZOB 3.375 GM 3.375 GM in DEXTROSE 5%-WATER - 50 ML IVPB SCH ×2 (15:15→20:00)
[2017-10-07] MEDS: SCOPOLAMINE HYDROBROMIDE 1 PATCH PATCH.TD72 TD SCH (15:15)
[2017-10-07] MEDS: PARoxetine HCL 10 MG TABLET (FP) NR SCH (22:00)
[2017-10-07] MEDS: traZODone HCL 50 MG TABLET (FP) NR SCH (22:01)
[2017-10-07] MEDS: MIRTAZAPINE 15 MG TABLET (FP) GT SCH (22:01)
[2017-10-07] MEDS: ARIPiprazole 5 MG TABLET (FP) NR SCH (22:02)
[2017-10-08] MEDS: PIPERACILLIN/TAZOB 3.375 GM 3.375 GM in DEXTROSE 5%-WATER - 50 ML IVPB SCH ×3 (02:38→18:47)
[2017-10-08] MEDS: ACETAMINOPHEN 325 MG TABLET (FP) PO PRN (03:37)
[2017-10-08] MEDS: INSULIN SLIDING SCALE (NOVOLOG) 1 VIAL SQ SCH ×4 (06:35→21:28)
[2017-10-08] MEDS: HEPARIN NA (PORCINE) 5,000 UNITS/ML 1ML VIAL SQ SCH ×3 (06:35→21:27)
[2017-10-08] MEDS: LEVOTHYROXINE NA 25 MCG TABLET (FP) GT SCH (06:35)
[2017-10-08] MEDS: ALBUTEROL SO4 2.5/IPRATROPIUM 0.5 INH SOL 3 ML VIAL.NEB. NEB SCH ×4 (08:47→20:56)
[2017-10-08] MEDS ORDERED: PT OWN MED DRAWER 7, Y5N ONE ×3 (09:33→18:31)
[2017-10-08] MEDS: ASPIRIN 81 MG CHEWABLE TABLETS GT SCH (09:44)
[2017-10-08] MEDS: LACTOBACILLUS ACIDOPHILUS 1 EACH TAB (FP) GT SCH ×2 (09:44→21:26)
[2017-10-08] MEDS: HYDROCORTISONE 2.5% TOPICAL CREAM 30 GM TUBE RC SCH ×2 (09:44→21:26)
[2017-10-08] MEDS: FUROSEMIDE 20 MG TABLET (FP) GT SCH (09:46)
[2017-10-08] MEDS: ESCITALOPRAM OXALATE 20 MG TABLET (FP) GT SCH (09:46)
[2017-10-08] MEDS: PANTOPRAZOLE 40 MG TABLET (FP) PO SCH (09:47)
[2017-10-08] MEDS: CHLORHEXIDINE GLUCONATE 0.12% 15ML CUP MM SCH ×2 (09:47→21:29)
[2017-10-08] MEDS: methylPREDNISolone NA SUCC 40 MG/1 ML VIAL IVPUSH SCH ×2 (09:48→21:29)
[2017-10-08] MEDS: MONTELUKAST NA 10 MG TABLET GT SCH (09:48)
[2017-10-08] MEDS: BUDESONIDE/FORMETEROL FUMARATE 160/4.5 mcg INHALER IH SCH ×2 (09:52→21:30)
[2017-10-08] MEDS: GABAPENTIN 250 MG/5 ML ORAL SOLUTION, 470 ML BOTTLE GT SCH ×2 (09:53→21:27)
--- NOTE | 2017-10-08 11:08 | PN ---
Progress Note (short form) - Note Progress Note: PULMONARY Tolerating trach collar all day and night. Still with increased secretions. No fevers or chills. Last Vital Signs Temp Pulse Resp BP Pulse Ox 98 F 70 20 124/81 96 10/08/17 09:27 10/08/17 09:27 10/08/17 09:27 10/08/17 09:27 10/08/17 03:05 Gen: mildly tachypneic on trach collar Heart: RRR Lung: less scattered rhonchi Abd: soft, nontender Ext: no edema CBC, BMP 10/03/17 06:00 10/03/17 06:00 Active Medications Acetaminophen (Tylenol -) 650 mg PO Q6H PRN PRN Reason: PAIN OR FEVER Last Admin: 10/08/17 03:37 Dose: 650 mg Albuterol Sulfate (Ventolin 0.083% Nebulizer Soln -) 1 amp NEB Q4H PRN PRN Reason: SHORT OF BREATH/WHEEZING Last Admin: 10/04/17 07:25 Dose: 1 amp Albuterol/Ipratropium (Duoneb -) 1 amp NEB RQID [facility] Last Admin: 10/08/17 11:06 Dose: 1 amp Aripiprazole (Abilify) 5 mg NR HS [facility] Last Admin: 10/07/17 22:02 Dose: 5 mg Aspirin (Asa -) 81 mg GT DAILY [facility] Last Admin: 10/08/17 09:44 Dose: 81 mg Budesonide/Formoterol Fumarate (Symbicort 160/4.5mcg -) 1 puff IH BID [facility] Last Admin: 10/08/17 09:52 Dose: Not Given Chlorhexidine Gluconate (Peridex -) 15 ml MM BID [facility] Last Admin: 10/08/17 09:47 Dose: 15 ml Escitalopram Oxalate (Lexapro -) 20 mg GT DAILY [facility] Last Admin: 10/08/17 09:46 Dose: 20 mg Furosemide (Lasix -) 20 mg GT DAILY [facility] Last Admin: 10/08/17 09:46 Dose: 20 mg Gabapentin (Neurontin Oral Liquid -) 600 mg GT BID [facility] Last Admin: 10/08/17 09:53 Dose: 600 mg Heparin Sodium (Porcine) (Heparin -) 5,000 unit SQ TID [facility] Last Admin: 10/08/17 06:35 Dose: 5,000 unit Hydrocortisone (Anusol 2.5% Hc Cream -) 1 applic RC BID [facility] Last Admin: 10/08/17 09:44 Dose: 1 applic Piperacillin Sod/Tazobactam (Sod 3.375 gm/ Dextrose) 50 mls @ 100 mls/hr IVPB Q8H-IV [facility] PRN Reason: Protocol Last Admin: 10/08/17 09:48 Dose: 100 mls/hr Insulin Aspart (Novolog Vial Sliding Scale -) 1 vial SQ HS [facility] PRN Reason: Protocol Last Admin: 10/07/17 22:03 Dose: Not Given Insulin Aspart (Novolog Vial Sliding Scale -) 1 vial SQ TIDAC [facility] PRN Reason: Protocol Last Admin: 10/08/17 06:35 Dose: Not Given Lactobacillus Acidophilus (Bacid -) 1 tab GT BID [facility] Last Admin: 10/08/17 09:44 Dose: 1 tab Levothyroxine Sodium (Synthroid -) 25 mcg GT DAILY@0700 [facility] Last Admin: 10/08/17 06:35 Dose: 25 mcg Methylprednisolone Sodium Succinate (Solu-Medrol -) 40 mg IVPUSH BID [facility] Last Admin: 10/08/17 09:48 Dose: 40 mg Mirtazapine (Remeron -) 15 mg GT [facility] Last Admin: 10/07/17 22:01 Dose: 15 mg Montelukast Sodium (Singulair -) 10 mg GT DAILY [facility] Last Admin: 10/08/17 09:48 Dose: 10 mg Pantoprazole Sodium (Protonix -) 40 mg PO DAILY [facility] Last Admin: 10/08/17 09:47 Dose: 40 mg Paroxetine HCl (Paxil -) 10 mg NR [facility] Last Admin: 10/07/17 22:00 Dose: 10 mg Scopolamine HBr (Transderm-Scop -) 1 patch TD Q72H [facility] Last Admin: 10/07/17 15:15 Dose: 1 patch Trazodone HCl (Desyrel -) 50 mg NR [facility] Last Admin: 10/07/17 22:01 Dose: 50 mg A/P Acute on Chronic Hypoxic and Hypercapneic Respiratory Failure r/o Pneumonia LV Diastolic Dysfunction Morbid Obesity DM Bipolar Disorder - trach collar as tolerated, vent on standby - agree with monitoring off antibiotics - continue medrol 40mg q12h, can likely change steroids to PO prednisone 40mg daily in AM if continues to improve - inhaled bronchodilators - continue scopolamine patch - PO as tolerated - DVT prophylaxis
--- NOTE | 2017-10-08 12:49 | PN ---
Progress Note, Physician Chief Complaint: pt tolerating trach collar all day yesterday spoke with Swallow therapist-- will have pt undergo MBS pt feels well she does have secretions - Current Medication List Current Medications: Active Medications Acetaminophen (Tylenol -) 650 mg PO Q6H PRN PRN Reason: PAIN OR FEVER Last Admin: 10/08/17 03:37 Dose: 650 mg Albuterol Sulfate (Ventolin 0.083% Nebulizer Soln -) 1 amp NEB Q4H PRN PRN Reason: SHORT OF BREATH/WHEEZING Last Admin: 10/04/17 07:25 Dose: 1 amp Albuterol/Ipratropium (Duoneb -) 1 amp NEB RQID [facility] Last Admin: 10/08/17 11:06 Dose: 1 amp Aripiprazole (Abilify) 5 mg NR HS [facility] Last Admin: 10/07/17 22:02 Dose: 5 mg Aspirin (Asa -) 81 mg GT DAILY [facility] Last Admin: 10/08/17 09:44 Dose: 81 mg Budesonide/Formoterol Fumarate (Symbicort 160/4.5mcg -) 1 puff IH BID [facility] Last Admin: 10/08/17 09:52 Dose: Not Given Chlorhexidine Gluconate (Peridex -) 15 ml MM BID [facility] Last Admin: 10/08/17 09:47 Dose: 15 ml Escitalopram Oxalate (Lexapro -) 20 mg GT DAILY [facility] Last Admin: 10/08/17 09:46 Dose: 20 mg Furosemide (Lasix -) 20 mg GT DAILY [facility] Last Admin: 10/08/17 09:46 Dose: 20 mg Gabapentin (Neurontin Oral Liquid -) 600 mg GT BID [facility] Last Admin: 10/08/17 09:53 Dose: 600 mg Heparin Sodium (Porcine) (Heparin -) 5,000 unit SQ TID [facility] Last Admin: 10/08/17 06:35 Dose: 5,000 unit Hydrocortisone (Anusol 2.5% Hc Cream -) 1 applic RC BID [facility] Last Admin: 10/08/17 09:44 Dose: 1 applic Piperacillin Sod/Tazobactam (Sod 3.375 gm/ Dextrose) 50 mls @ 100 mls/hr IVPB Q8H-IV [facility] PRN Reason: Protocol Last Admin: 10/08/17 09:48 Dose: 100 mls/hr Insulin Aspart (Novolog Vial Sliding Scale -) 1 vial SQ [facility] PRN Reason: Protocol Last Admin: 10/07/17 22:03 Dose: Not Given Insulin Aspart (Novolog Vial Sliding Scale -) 1 vial SQ TIDAC [facility] PRN Reason: Protocol Last Admin: 10/08/17 11:51 Dose: Not Given Lactobacillus Acidophilus (Bacid -) 1 tab GT BID [facility] Last Admin: 10/08/17 09:44 Dose: 1 tab Levothyroxine Sodium (Synthroid -) 25 mcg GT DAILY@0700 [facility] Last Admin: 10/08/17 06:35 Dose: 25 mcg Methylprednisolone Sodium Succinate (Solu-Medrol -) 40 mg IVPUSH BID [facility] Last Admin: 10/08/17 09:48 Dose: 40 mg Mirtazapine (Remeron -) 15 mg GT [facility] Last Admin: 10/07/17 22:01 Dose: 15 mg Montelukast Sodium (Singulair -) 10 mg GT DAILY [facility] Last Admin: 10/08/17 09:48 Dose: 10 mg Pantoprazole Sodium (Protonix -) 40 mg PO DAILY [facility] Last Admin: 10/08/17 09:47 Dose: 40 mg Paroxetine HCl (Paxil -) 10 mg NR [facility] Last Admin: 10/07/17 22:00 Dose: 10 mg Scopolamine HBr (Transderm-Scop -) 1 patch TD Q72H [facility] Last Admin: 10/07/17 15:15 Dose: 1 patch Trazodone HCl (Desyrel -) 50 mg NR [facility] Last Admin: 10/07/17 22:01 Dose: 50 mg - Objective Vital Signs: Vital Signs Temperature 98 F 10/08/17 09:27 Pulse Rate 70 10/08/17 09:27 Respiratory Rate 20 10/08/17 09:27 Blood Pressure 124/81 10/08/17 09:27 O2 Sat by Pulse Oximetry (%) 96 10/08/17 03:05 Constitutional: Yes: No Distress, Calm Neck: Yes: Other (trach collar) Respiratory: Yes: Diminished Gastrointestinal: Yes: Normal Bowel Sounds, Soft. No: Tenderness Edema: No Labs: CBC, BMP 10/03/17 06:00 10/03/17 06:00 INR, PTT INR 1.10 (0.82-1.09) 10/01/17 16:30 Problem List - Problems (1) Acute respiratory failure Code(s): J96.00 - ACUTE RESPIRATORY FAILURE, UNSP W HYPOXIA OR HYPERCAPNIA (2) COPD exacerbation Code(s): J44.1 - CHRONIC OBSTRUCTIVE PULMONARY DISEASE W (ACUTE) EXACERBATION (3) Diabetes Code(s): E11.9 - TYPE 2 DIABETES MELLITUS WITHOUT COMPLICATIONS (4) Neuropathy Code(s): G62.9 - POLYNEUROPATHY, UNSPECIFIED (5) Depression Code(s): F32.9 - MAJOR DEPRESSIVE DISORDER, SINGLE EPISODE, UNSPECIFIED Assessment/Plan PLAN on trach collar sputum cultures noted-- spoke with ID restarted iv antibiotics modified barium swallow-- may use passy rolando valve today Medrol BID off antibiotics per ID continue with meds scopolamine patch for excessive secretions
--- NOTE | 2017-10-08 13:55 | PN ---
Progress Note, Physician History of Present Illness: patient tolerated trach collar says though her secretion are more - Current Medication List Current Medications: Active Medications Acetaminophen (Tylenol -) 650 mg PO Q6H PRN PRN Reason: PAIN OR FEVER Last Admin: 10/08/17 03:37 Dose: 650 mg Albuterol Sulfate (Ventolin 0.083% Nebulizer Soln -) 1 amp NEB Q4H PRN PRN Reason: SHORT OF BREATH/WHEEZING Last Admin: 10/04/17 07:25 Dose: 1 amp Albuterol/Ipratropium (Duoneb -) 1 amp NEB RQID [facility] Last Admin: 10/08/17 11:06 Dose: 1 amp Aripiprazole (Abilify) 5 mg NR HS [facility] Last Admin: 10/07/17 22:02 Dose: 5 mg Aspirin (Asa -) 81 mg GT DAILY [facility] Last Admin: 10/08/17 09:44 Dose: 81 mg Budesonide/Formoterol Fumarate (Symbicort 160/4.5mcg -) 1 puff IH BID [facility] Last Admin: 10/08/17 09:52 Dose: Not Given Chlorhexidine Gluconate (Peridex -) 15 ml MM BID [facility] Last Admin: 10/08/17 09:47 Dose: 15 ml Escitalopram Oxalate (Lexapro -) 20 mg GT DAILY [facility] Last Admin: 10/08/17 09:46 Dose: 20 mg Furosemide (Lasix -) 20 mg GT DAILY [facility] Last Admin: 10/08/17 09:46 Dose: 20 mg Gabapentin (Neurontin Oral Liquid -) 600 mg GT BID [facility] Last Admin: 10/08/17 09:53 Dose: 600 mg Heparin Sodium (Porcine) (Heparin -) 5,000 unit SQ TID [facility] Last Admin: 10/08/17 06:35 Dose: 5,000 unit Hydrocortisone (Anusol 2.5% Hc Cream -) 1 applic RC BID [facility] Last Admin: 10/08/17 09:44 Dose: 1 applic Piperacillin Sod/Tazobactam (Sod 3.375 gm/ Dextrose) 50 mls @ 100 mls/hr IVPB Q8H-IV [facility] PRN Reason: Protocol Last Admin: 10/08/17 09:48 Dose: 100 mls/hr Insulin Aspart (Novolog Vial Sliding Scale -) 1 vial SQ HS [facility] PRN Reason: Protocol Last Admin: 10/07/17 22:03 Dose: Not Given Insulin Aspart (Novolog Vial Sliding Scale -) 1 vial SQ TIDAC [facility] PRN Reason: Protocol Last Admin: 10/08/17 11:51 Dose: Not Given Lactobacillus Acidophilus (Bacid -) 1 tab GT BID [facility] Last Admin: 10/08/17 09:44 Dose: 1 tab Levothyroxine Sodium (Synthroid -) 25 mcg GT DAILY@0700 [facility] Last Admin: 10/08/17 06:35 Dose: 25 mcg Methylprednisolone Sodium Succinate (Solu-Medrol -) 40 mg IVPUSH BID [facility] Last Admin: 10/08/17 09:48 Dose: 40 mg Mirtazapine (Remeron -) 15 mg GT [facility] Last Admin: 10/07/17 22:01 Dose: 15 mg Montelukast Sodium (Singulair -) 10 mg GT DAILY [facility] Last Admin: 10/08/17 09:48 Dose: 10 mg Pantoprazole Sodium (Protonix -) 40 mg PO DAILY [facility] Last Admin: 10/08/17 09:47 Dose: 40 mg Paroxetine HCl (Paxil -) 10 mg NR [facility] Last Admin: 10/07/17 22:00 Dose: 10 mg Scopolamine HBr (Transderm-Scop -) 1 patch TD Q72H [facility] Last Admin: 10/07/17 15:15 Dose: 1 patch Trazodone HCl (Desyrel -) 50 mg NR [facility] Last Admin: 10/07/17 22:01 Dose: 50 mg - Objective Vital Signs: Vital Signs Temperature 98 F 10/08/17 09:27 Pulse Rate 70 10/08/17 09:27 Respiratory Rate 20 10/08/17 09:27 Blood Pressure 124/81 10/08/17 09:27 O2 Sat by Pulse Oximetry (%) 96 10/08/17 03:05 Constitutional: Yes: No Distress, Calm, Obese Cardiovascular: Yes: S1, S2 Respiratory: Yes: Poor Air Entry, Other Gastrointestinal: Yes: Normal Bowel Sounds, Soft Musculoskeletal: Yes: WNL Extremities: Yes: WNL Neurological: Yes: Alert, Oriented Psychiatric: Yes: Alert, Oriented Labs: CBC, BMP 10/03/17 06:00 10/03/17 06:00 INR, PTT INR 1.10 (0.82-1.09) 10/01/17 16:30 Assessment/Plan Problem List - Problems (1) Acute respiratory failure Code(s): J96.00 - ACUTE RESPIRATORY FAILURE, UNSP W HYPOXIA OR HYPERCAPNIA (2) COPD exacerbation Code(s): J44.1 - CHRONIC OBSTRUCTIVE PULMONARY DISEASE W (ACUTE) EXACERBATION (3) DVT prophylaxis Code(s): [id number] - (4) Morbid obesity Code(s): E66.01 - MORBID (SEVERE) OBESITY DUE TO EXCESS CALORIES (5) Polysubstance (excluding opioids) dependence Code(s): F19.20 - OTHER PSYCHOACTIVE SUBSTANCE DEPENDENCE, UNCOMPLICATED 6) pneumonia plan continue current mgmt await for the cx once we have the organism we will decide how to proceed monitor secretions
[2017-10-08] MEDS: ARIPiprazole 5 MG TABLET (FP) NR SCH (21:26)
[2017-10-08] MEDS: traZODone HCL 50 MG TABLET (FP) NR SCH (21:27)
[2017-10-08] MEDS: PARoxetine HCL 10 MG TABLET (FP) NR SCH (21:28)
[2017-10-08] MEDS: MIRTAZAPINE 15 MG TABLET (FP) GT SCH (21:29)
[2017-10-09] MEDS: PIPERACILLIN/TAZOB 3.375 GM 3.375 GM in DEXTROSE 5%-WATER - 50 ML IVPB SCH ×2 (01:53→11:40)
[2017-10-09] MEDS: LEVOTHYROXINE NA 25 MCG TABLET (FP) GT SCH (06:33)
[2017-10-09] MEDS: INSULIN SLIDING SCALE (NOVOLOG) 1 VIAL SQ SCH ×4 (06:33→21:41)
[2017-10-09 07:39] LABS: HEMATOCRIT 35.8 % (32.4-45.2); HEMOGLOBIN 11.8 GM/dL (10.7-15.3); MCH 29.7 pg (25.7-33.7); MCHC 32.9 g/dl (32.0-36.0); MEAN CELL VOLUME 90.3 fl (80-96); MEAN PLT VOLUME 7.8 fl (7.5-11.1); PLATELET COUNT 271 K/MM3 (134-434); RBC 3.96 M/mm3 (3.60-5.2); RDW 16.6 % (11.6-15.6); WHITE BLOOD COUNT 8.3 K/mm3 (4.0-10.0)
[2017-10-09] MEDS: ALBUTEROL SO4 2.5/IPRATROPIUM 0.5 INH SOL 3 ML VIAL.NEB. NEB SCH (07:41)
[2017-10-09 08:55] LABS: CHLORIDE 98 mmol/L (98-107); POTASSIUM 5.1 mmol/L (3.5-5.1); SODIUM 142 mmol/L (136-145)
[2017-10-09 09:07] LABS: ANION GAP 11 (8-16); BLOOD UREA NITROGEN 15 mg/dL (7-18); CALCIUM 8.6 mg/dL (8.5-10.1); CO2 33 mmol/L (21-32); CREATININE 0.5 mg/dL (0.55-1.02); GLUCOSE,RANDOM 113 mg/dL (74-106)
[2017-10-09] MEDS ORDERED: PT OWN MED DRAWER 7, Y5N ONE ×2 (11:33→20:11)
[2017-10-09] MEDS: PANTOPRAZOLE 40 MG TABLET (FP) PO SCH (11:37)
[2017-10-09] MEDS: ASPIRIN 81 MG CHEWABLE TABLETS GT SCH (11:37)
[2017-10-09] MEDS: FUROSEMIDE 20 MG TABLET (FP) GT SCH (11:37)
[2017-10-09] MEDS: ESCITALOPRAM OXALATE 20 MG TABLET (FP) GT SCH (11:37)
[2017-10-09] MEDS: MONTELUKAST NA 10 MG TABLET GT SCH (11:37)
[2017-10-09] MEDS: HEPARIN NA (PORCINE) 5,000 UNITS/ML 1ML VIAL SQ SCH ×2 (11:37→21:40)
[2017-10-09] MEDS: LACTOBACILLUS ACIDOPHILUS 1 EACH TAB (FP) GT SCH ×2 (11:38→21:40)
[2017-10-09] MEDS: CHLORHEXIDINE GLUCONATE 0.12% 15ML CUP MM SCH ×2 (11:39→21:41)
[2017-10-09] MEDS: GABAPENTIN 250 MG/5 ML ORAL SOLUTION, 470 ML BOTTLE GT SCH ×2 (11:39→21:40)
[2017-10-09] MEDS: BUDESONIDE/FORMETEROL FUMARATE 160/4.5 mcg INHALER IH SCH (11:40)
[2017-10-09] MEDS: HYDROCORTISONE 2.5% TOPICAL CREAM 30 GM TUBE RC SCH ×2 (11:57→21:39)
[2017-10-09] MEDS: methylPREDNISolone NA SUCC 40 MG/1 ML VIAL IVPUSH SCH ×2 (11:58→13:38)
--- NOTE | 2017-10-09 14:20 | PN ---
Progress Note, Physician History of Present Illness: patient stable doing well still with very thick secretions - Current Medication List Current Medications: Active Medications Acetaminophen (Tylenol -) 650 mg PO Q6H PRN PRN Reason: PAIN OR FEVER Last Admin: 10/08/17 03:37 Dose: 650 mg Albuterol Sulfate (Ventolin 0.083% Nebulizer Soln -) 1 amp NEB Q4H PRN PRN Reason: SHORT OF BREATH/WHEEZING Last Admin: 10/04/17 07:25 Dose: 1 amp Aripiprazole (Abilify) 5 mg NR HS [facility] Last Admin: 10/08/17 21:26 Dose: 5 mg Aspirin (Asa -) 81 mg GT DAILY [facility] Last Admin: 10/09/17 11:37 Dose: 81 mg Budesonide/Formoterol Fumarate (Symbicort 160/4.5mcg -) 1 puff IH BID [facility] Last Admin: 10/09/17 11:40 Dose: Not Given Cephalexin HCl (Keflex -) 500 mg PO Q6HPO [facility] Chlorhexidine Gluconate (Peridex -) 15 ml MM BID [facility] Last Admin: 10/09/17 11:39 Dose: 15 ml Escitalopram Oxalate (Lexapro -) 20 mg GT DAILY [facility] Last Admin: 10/09/17 11:37 Dose: 20 mg Furosemide (Lasix -) 20 mg GT DAILY [facility] Last Admin: 10/09/17 11:37 Dose: 20 mg Gabapentin (Neurontin Oral Liquid -) 600 mg GT BID [facility] Last Admin: 10/09/17 11:39 Dose: 600 mg Heparin Sodium (Porcine) (Heparin -) 5,000 unit SQ BID [facility] Last Admin: 10/09/17 11:37 Dose: 5,000 unit Hydrocortisone (Anusol 2.5% Hc Cream -) 1 applic RC BID [facility] Last Admin: 10/09/17 11:57 Dose: 1 applic Insulin Aspart (Novolog Vial Sliding Scale -) 1 vial SQ HS [facility] PRN Reason: Protocol Last Admin: 10/08/17 21:28 Dose: Not Given Insulin Aspart (Novolog Vial Sliding Scale -) 1 vial SQ TIDAC [facility] PRN Reason: Protocol Last Admin: 10/09/17 11:57 Dose: Not Given Lactobacillus Acidophilus (Bacid -) 1 tab GT BID [facility] Last Admin: 10/09/17 11:38 Dose: 1 tab Levothyroxine Sodium (Synthroid -) 25 mcg GT DAILY@0700 [facility] Last Admin: 10/09/17 06:33 Dose: 25 mcg Methylprednisolone Sodium Succinate (Solu-Medrol -) 40 mg IVPUSH BID [facility] Last Admin: 10/09/17 13:38 Dose: 40 mg Mirtazapine (Remeron -) 15 mg GT [facility] Last Admin: 10/08/17 21:29 Dose: 15 mg Montelukast Sodium (Singulair -) 10 mg GT DAILY [facility] Last Admin: 10/09/17 11:37 Dose: 10 mg Pantoprazole Sodium (Protonix -) 40 mg PO DAILY [facility] Last Admin: 10/09/17 11:37 Dose: 40 mg Paroxetine HCl (Paxil -) 10 mg NR [facility] Last Admin: 10/08/17 21:28 Dose: 10 mg Scopolamine HBr (Transderm-Scop -) 1 patch TD Q72H [facility] Last Admin: 10/07/17 15:15 Dose: 1 patch Trazodone HCl (Desyrel -) 50 mg NR [facility] Last Admin: 10/08/17 21:27 Dose: 50 mg - Objective Vital Signs: Vital Signs Temperature 98.2 F 10/09/17 09:40 Pulse Rate 62 10/09/17 09:40 Respiratory Rate 24 10/09/17 10:30 Blood Pressure 123/67 10/09/17 09:40 O2 Sat by Pulse Oximetry (%) 95 10/09/17 07:41 Constitutional: Yes: No Distress, Calm, Obese Cardiovascular: Yes: Regular Rate and Rhythm Respiratory: Yes: Regular, Poor Air Entry, Other (thich secretions) Gastrointestinal: Yes: Normal Bowel Sounds, Soft Musculoskeletal: Yes: WNL Extremities: Yes: WNL Neurological: Yes: Alert, Oriented Psychiatric: Yes: Alert, Oriented Labs: CBC, BMP 10/09/17 07:15 10/09/17 07:15 INR, PTT INR 1.10 (0.82-1.09) 10/01/17 16:30 Assessment/Plan Problem List - Problems (1) Acute respiratory failure Code(s): J96.00 - ACUTE RESPIRATORY FAILURE, UNSP W HYPOXIA OR HYPERCAPNIA (2) COPD exacerbation Code(s): J44.1 - CHRONIC OBSTRUCTIVE PULMONARY DISEASE W (ACUTE) EXACERBATION (3) DVT prophylaxis Code(s): [id number] - (4) Morbid obesity Code(s): E66.01 - MORBID (SEVERE) OBESITY DUE TO EXCESS CALORIES (5) Polysubstance (excluding opioids) dependence Code(s): F19.20 - OTHER PSYCHOACTIVE SUBSTANCE DEPENDENCE, UNCOMPLICATED 6) pneumonia all cx report noted plan will change abx to ceftriaxone continue suctioning
[2017-10-09] MEDS: CEFTRIAXONE IN IS-OSM DEXTROSE 2 GM/50 ML BAG IVPB SCH (15:27)
--- NOTE | 2017-10-09 15:45 | PN ---
Progress Note, Physician History of Present Illness: patient seen and examined. Chart reviewed. Comfortable. on trach collar now. +ve secretions. afebrile Alert and awake. - Current Medication List Current Medications: Active Medications Acetaminophen (Tylenol -) 650 mg PO Q6H PRN PRN Reason: PAIN OR FEVER Last Admin: 10/08/17 03:37 Dose: 650 mg Albuterol Sulfate (Ventolin 0.083% Nebulizer Soln -) 1 amp NEB Q4H PRN PRN Reason: SHORT OF BREATH/WHEEZING Last Admin: 10/04/17 07:25 Dose: 1 amp Aripiprazole (Abilify) 5 mg NR HS [facility] Last Admin: 10/08/17 21:26 Dose: 5 mg Aspirin (Asa -) 81 mg GT DAILY [facility] Last Admin: 10/09/17 11:37 Dose: 81 mg Budesonide/Formoterol Fumarate (Symbicort 160/4.5mcg -) 1 puff IH BID [facility] Last Admin: 10/09/17 11:40 Dose: Not Given Chlorhexidine Gluconate (Peridex -) 15 ml MM BID [facility] Last Admin: 10/09/17 11:39 Dose: 15 ml Escitalopram Oxalate (Lexapro -) 20 mg GT DAILY [facility] Last Admin: 10/09/17 11:37 Dose: 20 mg Furosemide (Lasix -) 20 mg GT DAILY [facility] Last Admin: 10/09/17 11:37 Dose: 20 mg Gabapentin (Neurontin Oral Liquid -) 600 mg GT BID [facility] Last Admin: 10/09/17 11:39 Dose: 600 mg Heparin Sodium (Porcine) (Heparin -) 5,000 unit SQ BID [facility] Last Admin: 10/09/17 11:37 Dose: 5,000 unit Hydrocortisone (Anusol 2.5% Hc Cream -) 1 applic RC BID [facility] Last Admin: 10/09/17 11:57 Dose: 1 applic CEFTRIAXONE IN IS-OSM DEXTROSE (Ceftriaxone 2 Gm-D5w Bag) 2 gm in 50 mls @ 100 mls/hr IVPB DAILY [facility] Last Admin: 10/09/17 15:27 Dose: 100 mls/hr Insulin Aspart (Novolog Vial Sliding Scale -) 1 vial SQ HS [facility] PRN Reason: Protocol Last Admin: 10/08/17 21:28 Dose: Not Given Insulin Aspart (Novolog Vial Sliding Scale -) 1 vial SQ TIDAC [facility] PRN Reason: Protocol Last Admin: 10/09/17 11:57 Dose: Not Given Lactobacillus Acidophilus (Bacid -) 1 tab GT BID [facility] Last Admin: 10/09/17 11:38 Dose: 1 tab Levothyroxine Sodium (Synthroid -) 25 mcg GT DAILY@0700 [facility] Last Admin: 10/09/17 06:33 Dose: 25 mcg Mirtazapine (Remeron -) 15 mg GT HS [facility] Last Admin: 10/08/17 21:29 Dose: 15 mg Montelukast Sodium (Singulair -) 10 mg GT DAILY [facility] Last Admin: 10/09/17 11:37 Dose: 10 mg Pantoprazole Sodium (Protonix -) 40 mg PO DAILY [facility] Last Admin: 10/09/17 11:37 Dose: 40 mg Paroxetine HCl (Paxil -) 10 mg NR [facility] Last Admin: 10/08/17 21:28 Dose: 10 mg Prednisone (Deltasone -) 40 mg PO DAILY [facility] Scopolamine HBr (Transderm-Scop -) 1 patch TD Q72H [facility] Last Admin: 10/07/17 15:15 Dose: 1 patch Trazodone HCl (Desyrel -) 50 mg NR [facility] Last Admin: 10/08/17 21:27 Dose: 50 mg - Objective Vital Signs: Vital Signs Temperature 98.5 F 10/09/17 14:09 Pulse Rate 88 10/09/17 14:09 Respiratory Rate 22 10/09/17 14:09 Blood Pressure 119/68 10/09/17 14:09 O2 Sat by Pulse Oximetry (%) 95 10/09/17 10:35 Constitutional: Yes: No Distress, Calm Neck: Yes: Supple, Other (s/p trach) Cardiovascular: Yes: Regular Rate and Rhythm Gastrointestinal: Yes: Soft Edema: No Neurological: Yes: Alert Labs: CBC, BMP 10/09/17 07:15 10/09/17 07:15 INR, PTT INR 1.10 (0.82-1.09) 10/01/17 16:30 Problem List - Problems (1) Acute respiratory failure Code(s): J96.00 - ACUTE RESPIRATORY FAILURE, UNSP W HYPOXIA OR HYPERCAPNIA (2) Morbid obesity Code(s): E66.01 - MORBID (SEVERE) OBESITY DUE TO EXCESS CALORIES Assessment/Plan clinically stable Meds reviewed. All consults noted and appreciated. antibiotics Frequent suctioning. Taper steroids slowly. Discussed with nursing staff Will follow.
--- NOTE | 2017-10-09 15:46 | PN ---
Progress Note (short form) - Note Progress Note: PULMONARY MUCH IMPROVED VSS/USING PMV WITHOUT DIFFICULTY ORAL DIET MBS NOTED NO ASPIRATION SECRETIONS ARE THICK ANICTERIC/TRACH CLEAR ANTERIOR B/L BREATH SOUNDS S1S2 BS+ LESS EDEMA LABS/MEDS/NOTES REVIEWED Acute on Chronic Hypoxic and Hypercapneic Respiratory Failure resolved LV Diastolic Dysfunction Morbid Obesity DM Bipolar Disorder - trach collar as tolerated, pmv prn - antibiotics as per ID - medrol changed to prednisone - inhaled bronchodilators - continue scopolamine patch - PO as tolerated - DVT proph R ARTIE BARKLEY Problem List - Problems (1) Acute respiratory failure Code(s): J96.00 - ACUTE RESPIRATORY FAILURE, UNSP W HYPOXIA OR HYPERCAPNIA (2) COPD exacerbation Code(s): J44.1 - CHRONIC OBSTRUCTIVE PULMONARY DISEASE W (ACUTE) EXACERBATION (3) DVT prophylaxis Code(s): [id number] - (4) Morbid obesity Code(s): E66.01 - MORBID (SEVERE) OBESITY DUE TO EXCESS CALORIES (5) Polysubstance (excluding opioids) dependence Code(s): F19.20 - OTHER PSYCHOACTIVE SUBSTANCE DEPENDENCE, UNCOMPLICATED
[2017-10-09] MEDS: ALBUTEROL SO4 0.083% IH SOL 2.5 MG/3 ML VIAL.NEB. NEB PRN (16:49)
[2017-10-09] MEDS ORDERED: CEPHALEXIN MONOHYDRATE 500 MG CAPSULE (UD) PO SCH (18:00)
[2017-10-09] MEDS: ARIPiprazole 5 MG TABLET (FP) NR SCH (21:39)
[2017-10-09] MEDS: traZODone HCL 50 MG TABLET (FP) NR SCH (21:40)
[2017-10-09] MEDS: MIRTAZAPINE 15 MG TABLET (FP) GT SCH (21:41)
[2017-10-09] MEDS: PARoxetine HCL 10 MG TABLET (FP) NR SCH (21:41)
[2017-10-10] MEDS: BUDESONIDE/FORMETEROL FUMARATE 160/4.5 mcg INHALER IH SCH ×3 (02:43→22:01)
[2017-10-10] MEDS: INSULIN SLIDING SCALE (NOVOLOG) 1 VIAL SQ SCH ×4 (06:36→21:58)
[2017-10-10] MEDS: LEVOTHYROXINE NA 25 MCG TABLET (FP) GT SCH (06:37)
[2017-10-10] MEDS: ALBUTEROL SO4 0.083% IH SOL 2.5 MG/3 ML VIAL.NEB. NEB PRN (08:44)
[2017-10-10] MEDS ORDERED: PT OWN MED DRAWER 7, Y5N ONE (09:50)
[2017-10-10] MEDS: ASPIRIN 81 MG CHEWABLE TABLETS GT SCH (10:26)
[2017-10-10] MEDS: ESCITALOPRAM OXALATE 20 MG TABLET (FP) GT SCH (10:26)
[2017-10-10] MEDS: FUROSEMIDE 20 MG TABLET (FP) GT SCH (10:26)
[2017-10-10] MEDS: predniSONE 20 MG TABLET (UD) PO SCH (10:26)
[2017-10-10] MEDS: PANTOPRAZOLE 40 MG TABLET (FP) PO SCH (10:26)
[2017-10-10] MEDS: HEPARIN NA (PORCINE) 5,000 UNITS/ML 1ML VIAL SQ SCH (10:27)
[2017-10-10] MEDS: CEFTRIAXONE IN IS-OSM DEXTROSE 2 GM/50 ML BAG IVPB SCH (10:27)
[2017-10-10] MEDS: LACTOBACILLUS ACIDOPHILUS 1 EACH TAB (FP) GT SCH ×2 (10:27→22:00)
[2017-10-10] MEDS ORDERED: ALBUTEROL SO4 0.083% IH SOL 2.5 MG/3 ML VIAL.NEB. NEB PRN (12:25)
--- NOTE | 2017-10-10 12:26 | PN ---
Progress Note, Physician Chief Complaint: has secretions no sob tolerating trach collar - Current Medication List Current Medications: Active Medications Acetaminophen (Tylenol -) 650 mg PO Q6H PRN PRN Reason: PAIN OR FEVER Last Admin: 10/08/17 03:37 Dose: 650 mg Aripiprazole (Abilify) 5 mg NR HS [facility] Last Admin: 10/09/17 21:39 Dose: 5 mg Aspirin (Asa -) 81 mg GT DAILY [facility] Last Admin: 10/10/17 10:26 Dose: 81 mg Budesonide/Formoterol Fumarate (Symbicort 160/4.5mcg -) 1 puff IH BID [facility] Last Admin: 10/10/17 02:43 Dose: Not Given Chlorhexidine Gluconate (Peridex -) 15 ml MM BID [facility] Last Admin: 10/09/17 21:41 Dose: 15 ml Escitalopram Oxalate (Lexapro -) 20 mg GT DAILY [facility] Last Admin: 10/10/17 10:26 Dose: 20 mg Furosemide (Lasix -) 20 mg GT DAILY [facility] Last Admin: 10/10/17 10:26 Dose: 20 mg Gabapentin (Neurontin Oral Liquid -) 600 mg GT BID [facility] Last Admin: 10/09/17 21:40 Dose: 600 mg Hydrocortisone (Anusol 2.5% Hc Cream -) 1 applic RC BID [facility] Last Admin: 10/09/17 21:39 Dose: 1 applic CEFTRIAXONE IN IS-OSM DEXTROSE (Ceftriaxone 2 Gm-D5w Bag) 2 gm in 50 mls @ 100 mls/hr IVPB DAILY [facility] Last Admin: 10/10/17 10:27 Dose: 100 mls/hr Insulin Aspart (Novolog Vial Sliding Scale -) 1 vial SQ HS [facility] PRN Reason: Protocol Last Admin: 10/09/17 21:41 Dose: Not Given Insulin Aspart (Novolog Vial Sliding Scale -) 1 vial SQ TIDAC [facility] PRN Reason: Protocol Last Admin: 10/10/17 06:36 Dose: Not Given Lactobacillus Acidophilus (Bacid -) 1 tab GT BID [facility] Last Admin: 10/10/17 10:27 Dose: 1 tab Levothyroxine Sodium (Synthroid -) 25 mcg GT DAILY@0700 [facility] Last Admin: 10/10/17 06:37 Dose: 25 mcg Mirtazapine (Remeron -) 15 mg GT HS [facility] Last Admin: 10/09/17 21:41 Dose: 15 mg Montelukast Sodium (Singulair -) 10 mg GT DAILY [facility] Last Admin: 10/09/17 11:37 Dose: 10 mg Pantoprazole Sodium (Protonix -) 40 mg PO DAILY [facility] Last Admin: 10/10/17 10:26 Dose: 40 mg Paroxetine HCl (Paxil -) 10 mg NR HS [facility] Last Admin: 10/09/17 21:41 Dose: 10 mg Prednisone (Deltasone -) 40 mg PO DAILY [facility] Last Admin: 10/10/17 10:26 Dose: 40 mg Scopolamine HBr (Transderm-Scop -) 1 patch TD Q72H [facility] Last Admin: 10/07/17 15:15 Dose: 1 patch Trazodone HCl (Desyrel -) 50 mg NR [facility] Last Admin: 10/09/17 21:40 Dose: 50 mg - Objective Vital Signs: Vital Signs Temperature 98.9 F 10/10/17 07:09 Pulse Rate 62 10/10/17 07:09 Respiratory Rate 20 10/10/17 07:09 Blood Pressure 108/73 10/10/17 07:09 O2 Sat by Pulse Oximetry (%) 98 10/10/17 05:25 Constitutional: Yes: No Distress Cardiovascular: Yes: Regular Rate and Rhythm Respiratory: Yes: Diminished Gastrointestinal: Yes: Normal Bowel Sounds, Soft. No: Tenderness Edema: No Labs: CBC, BMP 10/09/17 07:15 10/09/17 07:15 INR, PTT INR 1.10 (0.82-1.09) 10/01/17 16:30 Problem List - Problems (1) Acute respiratory failure Code(s): J96.00 - ACUTE RESPIRATORY FAILURE, UNSP W HYPOXIA OR HYPERCAPNIA (2) COPD exacerbation Code(s): J44.1 - CHRONIC OBSTRUCTIVE PULMONARY DISEASE W (ACUTE) EXACERBATION (3) Diabetes Code(s): E11.9 - TYPE 2 DIABETES MELLITUS WITHOUT COMPLICATIONS (4) Neuropathy Code(s): G62.9 - POLYNEUROPATHY, UNSPECIFIED (5) Depression Code(s): F32.9 - MAJOR DEPRESSIVE DISORDER, SINGLE EPISODE, UNSPECIFIED Assessment/Plan PLAN on trach collar iv antibiotics modified barium swallow noted Medrol BID continue with meds scopolamine patch for excessive secretions
[2017-10-10] MEDS: GABAPENTIN 250 MG/5 ML ORAL SOLUTION, 470 ML BOTTLE GT SCH ×2 (12:47→22:02)
[2017-10-10] MEDS: HYDROCORTISONE 2.5% TOPICAL CREAM 30 GM TUBE RC SCH ×2 (12:48→21:59)
[2017-10-10] MEDS: CHLORHEXIDINE GLUCONATE 0.12% 15ML CUP MM SCH ×2 (12:49→22:07)
[2017-10-10] MEDS: MONTELUKAST NA 10 MG TABLET GT SCH ×2 (12:54→22:01)
[2017-10-10] MEDS: ALBUTEROL SO4 0.083% IH SOL 2.5 MG/3 ML VIAL.NEB. NEB SCH ×3 (13:04→20:58)
--- NOTE | 2017-10-10 13:31 | PN ---
Progress Note, Physician History of Present Illness: patient anxious says he is feeling well - Current Medication List Current Medications: Active Medications Acetaminophen (Tylenol -) 650 mg PO Q6H PRN PRN Reason: PAIN OR FEVER Last Admin: 10/08/17 03:37 Dose: 650 mg Albuterol Sulfate (Ventolin 0.083% Nebulizer Soln -) 1 amp NEB Q6H PRN PRN Reason: SHORT OF BREATH/WHEEZING Albuterol Sulfate (Ventolin 0.083% Nebulizer Soln -) 1 amp NEB Q4H [facility] Last Admin: 10/10/17 13:04 Dose: 1 amp Aripiprazole (Abilify) 5 mg NR HS [facility] Last Admin: 10/09/17 21:39 Dose: 5 mg Aspirin (Asa -) 81 mg GT DAILY [facility] Last Admin: 10/10/17 10:26 Dose: 81 mg Budesonide/Formoterol Fumarate (Symbicort 160/4.5mcg -) 1 puff IH BID [facility] Last Admin: 10/10/17 02:43 Dose: Not Given Chlorhexidine Gluconate (Peridex -) 15 ml MM BID [facility] Last Admin: 10/10/17 12:49 Dose: 15 ml Enoxaparin Sodium (Lovenox -) 40 mg SQ DAILY [facility] Escitalopram Oxalate (Lexapro -) 20 mg GT DAILY [facility] Last Admin: 10/10/17 10:26 Dose: 20 mg Furosemide (Lasix -) 20 mg GT DAILY [facility] Last Admin: 10/10/17 10:26 Dose: 20 mg Gabapentin (Neurontin Oral Liquid -) 600 mg GT BID [facility] Last Admin: 10/10/17 12:47 Dose: 600 mg Hydrocortisone (Anusol 2.5% Hc Cream -) 1 applic RC BID [facility] Last Admin: 10/10/17 12:48 Dose: Not Given CEFTRIAXONE IN IS-OSM DEXTROSE (Ceftriaxone 2 Gm-D5w Bag) 2 gm in 50 mls @ 100 mls/hr IVPB DAILY [facility] Last Admin: 10/10/17 10:27 Dose: 100 mls/hr Insulin Aspart (Novolog Vial Sliding Scale -) 1 vial SQ HS [facility] PRN Reason: Protocol Last Admin: 10/09/17 21:41 Dose: Not Given Insulin Aspart (Novolog Vial Sliding Scale -) 1 vial SQ TIDAC [facility] PRN Reason: Protocol Last Admin: 10/10/17 12:50 Dose: Not Given Lactobacillus Acidophilus (Bacid -) 1 tab GT BID [facility] Last Admin: 10/10/17 10:27 Dose: 1 tab Levothyroxine Sodium (Synthroid -) 25 mcg GT DAILY@0700 [facility] Last Admin: 10/10/17 06:37 Dose: 25 mcg Mirtazapine (Remeron -) 15 mg GT HS [facility] Last Admin: 10/09/17 21:41 Dose: 15 mg Montelukast Sodium (Singulair -) 10 mg GT HS [facility] Pantoprazole Sodium (Protonix -) 40 mg PO DAILY [facility] Last Admin: 10/10/17 10:26 Dose: 40 mg Paroxetine HCl (Paxil -) 10 mg NR [facility] Last Admin: 10/09/17 21:41 Dose: 10 mg Prednisone (Deltasone -) 40 mg PO DAILY [facility] Last Admin: 10/10/17 10:26 Dose: 40 mg Scopolamine HBr (Transderm-Scop -) 1 patch TD Q72H [facility] Last Admin: 10/07/17 15:15 Dose: 1 patch Trazodone HCl (Desyrel -) 50 mg NR [facility] Last Admin: 10/09/17 21:40 Dose: 50 mg - Objective Vital Signs: Vital Signs Temperature 98.9 F 10/10/17 07:09 Pulse Rate 62 10/10/17 07:09 Respiratory Rate 20 10/10/17 07:09 Blood Pressure 108/73 10/10/17 07:09 O2 Sat by Pulse Oximetry (%) 95 10/10/17 13:03 Constitutional: Yes: No Distress, Calm, Obese Cardiovascular: Yes: Regular Rate and Rhythm Respiratory: Yes: Regular, CTA Bilaterally Gastrointestinal: Yes: Normal Bowel Sounds, Soft Musculoskeletal: Yes: WNL Extremities: Yes: WNL Neurological: Yes: Alert, Oriented Psychiatric: Yes: Alert, Oriented Labs: CBC, BMP 10/09/17 07:15 10/09/17 07:15 INR, PTT INR 1.10 (0.82-1.09) 10/01/17 16:30 Assessment/Plan Problem List - Problems (1) Acute respiratory failure Code(s): J96.00 - ACUTE RESPIRATORY FAILURE, UNSP W HYPOXIA OR HYPERCAPNIA (2) COPD exacerbation Code(s): J44.1 - CHRONIC OBSTRUCTIVE PULMONARY DISEASE W (ACUTE) EXACERBATION (3) DVT prophylaxis Code(s): [id number] - (4) Morbid obesity Code(s): E66.01 - MORBID (SEVERE) OBESITY DUE TO EXCESS CALORIES (5) Polysubstance (excluding opioids) dependence Code(s): F19.20 - OTHER PSYCHOACTIVE SUBSTANCE DEPENDENCE, UNCOMPLICATED 6) pneumonia all cx report noted plan continue current abx rest as per primary
--- NOTE | 2017-10-10 13:34 | PN ---
Progress Note (short form) - Note Progress Note: PULMONARY MUCH IMPROVED VSS/USING PMV WITHOUT DIFFICULTY ORAL DIET MBS NOTED NO ASPIRATION SECRETIONS ARE THICK ANICTERIC/TRACH CLEAR ANTERIOR B/L BREATH SOUNDS S1S2 BS+ LESS EDEMA LABS/MEDS/NOTES REVIEWED Acute on Chronic Hypoxic and Hypercapneic Respiratory Failure resolved LV Diastolic Dysfunction Morbid Obesity DM Bipolar Disorder - trach collar as tolerated, pmv prn - antibiotics as per ID - medrol changed to prednisone - inhaled bronchodilators - continue scopolamine patch - PO as tolerated - DVT proph R ARTIE BARKLEY Problem List - Problems (1) Acute respiratory failure Code(s): J96.00 - ACUTE RESPIRATORY FAILURE, UNSP W HYPOXIA OR HYPERCAPNIA (2) COPD exacerbation Code(s): J44.1 - CHRONIC OBSTRUCTIVE PULMONARY DISEASE W (ACUTE) EXACERBATION (3) DVT prophylaxis Code(s): [id number] - (4) Morbid obesity Code(s): E66.01 - MORBID (SEVERE) OBESITY DUE TO EXCESS CALORIES (5) Polysubstance (excluding opioids) dependence Code(s): F19.20 - OTHER PSYCHOACTIVE SUBSTANCE DEPENDENCE, UNCOMPLICATED
[2017-10-10] MEDS: SCOPOLAMINE HYDROBROMIDE 1 PATCH PATCH.TD72 TD SCH (13:41)
[2017-10-10] MEDS: ARIPiprazole 5 MG TABLET (FP) NR SCH (21:59)
[2017-10-10] MEDS: PARoxetine HCL 10 MG TABLET (FP) NR SCH (22:00)
[2017-10-10] MEDS: MIRTAZAPINE 15 MG TABLET (FP) GT SCH (22:00)
[2017-10-10] MEDS: traZODone HCL 50 MG TABLET (FP) NR SCH (22:00)
[2017-10-11] MEDS: ALBUTEROL SO4 0.083% IH SOL 2.5 MG/3 ML VIAL.NEB. NEB SCH ×6 (01:08→20:15)
[2017-10-11] MEDS: INSULIN SLIDING SCALE (NOVOLOG) 1 VIAL SQ SCH ×4 (06:10→22:11)
[2017-10-11] MEDS: LEVOTHYROXINE NA 25 MCG TABLET (FP) GT SCH (06:11)
[2017-10-11] MEDS ORDERED: INSULIN (NOVOLOG) ASPART 100 UNITS/ML 10ML VIAL ONE ×2 (06:40→18:05)
[2017-10-11 07:28] LABS: BASO % 0.2 % (0-2.0); EOS % 0.6 % (0-4.5); HEMOGLOBIN 12.3 GM/dL (10.7-15.3); LYMPH % 24.2 % (8-40); MCH 29.6 pg (25.7-33.7); MCHC 32.3 g/dl (32.0-36.0); MEAN CELL VOLUME 91.7 fl (80-96); MEAN PLT VOLUME 7.3 fl (7.5-11.1); MONO % 5.3 % (3.8-10.2); NEUT % 69.7 % (42.8-82.8); PLATELET COUNT 302 K/MM3 (134-434); RBC 4.15 M/mm3 (3.60-5.2); RDW 17.2 % (11.6-15.6); WHITE BLOOD COUNT 9.1 K/mm3 (4.0-10.0)
[2017-10-11] MEDS ORDERED: PT OWN MED DRAWER 7, Y5N ONE ×2 (09:12→18:05)
[2017-10-11] MEDS: CEFTRIAXONE IN IS-OSM DEXTROSE 2 GM/50 ML BAG IVPB SCH (09:14)
[2017-10-11] MEDS: ENOXAPARIN NA (PORCINE) 40 MG/0.4 ML DISP.SYRIN SQ SCH (09:16)
[2017-10-11] MEDS: PANTOPRAZOLE 40 MG TABLET (FP) PO SCH (09:21)
[2017-10-11] MEDS: FUROSEMIDE 20 MG TABLET (FP) GT SCH (09:21)
[2017-10-11] MEDS: BUDESONIDE/FORMETEROL FUMARATE 160/4.5 mcg INHALER IH SCH ×2 (09:21→21:40)
[2017-10-11] MEDS: predniSONE 20 MG TABLET (UD) PO SCH (09:21)
[2017-10-11] MEDS: ESCITALOPRAM OXALATE 20 MG TABLET (FP) GT SCH (09:22)
[2017-10-11] MEDS: ASPIRIN 81 MG CHEWABLE TABLETS GT SCH (09:22)
[2017-10-11] MEDS: LACTOBACILLUS ACIDOPHILUS 1 EACH TAB (FP) GT SCH ×3 (09:24→22:15)
[2017-10-11] MEDS: CHLORHEXIDINE GLUCONATE 0.12% 15ML CUP MM SCH ×2 (09:25→21:44)
[2017-10-11] MEDS: GABAPENTIN 250 MG/5 ML ORAL SOLUTION, 470 ML BOTTLE GT SCH ×2 (09:36→22:01)
--- NOTE | 2017-10-11 10:02 | PN ---
Progress Note, Physician Chief Complaint: has increased secretions no SOB used to take Hydroxyzine for anxiety in NH - Current Medication List Current Medications: Active Medications Acetaminophen (Tylenol -) 650 mg PO Q6H PRN PRN Reason: PAIN OR FEVER Last Admin: 10/08/17 03:37 Dose: 650 mg Albuterol Sulfate (Ventolin 0.083% Nebulizer Soln -) 1 amp NEB Q6H PRN PRN Reason: SHORT OF BREATH/WHEEZING Albuterol Sulfate (Ventolin 0.083% Nebulizer Soln -) 1 amp NEB Q4H [facility] Last Admin: 10/11/17 07:25 Dose: 1 amp Aripiprazole (Abilify) 5 mg NR HS [facility] Last Admin: 10/10/17 21:59 Dose: 5 mg Aspirin (Asa -) 81 mg GT DAILY [facility] Last Admin: 10/11/17 09:22 Dose: 81 mg Budesonide/Formoterol Fumarate (Symbicort 160/4.5mcg -) 1 puff IH BID [facility] Last Admin: 10/11/17 09:21 Dose: 1 puff Chlorhexidine Gluconate (Peridex -) 15 ml MM BID [facility] Last Admin: 10/11/17 09:25 Dose: 15 ml Enoxaparin Sodium (Lovenox -) 40 mg SQ DAILY [facility] Last Admin: 10/11/17 09:16 Dose: 40 mg Escitalopram Oxalate (Lexapro -) 20 mg GT DAILY [facility] Last Admin: 10/11/17 09:22 Dose: 20 mg Furosemide (Lasix -) 20 mg GT DAILY [facility] Last Admin: 10/11/17 09:21 Dose: 20 mg Gabapentin (Neurontin Oral Liquid -) 600 mg GT BID [facility] Last Admin: 10/11/17 09:36 Dose: 600 mg Hydrocortisone (Anusol 2.5% Hc Cream -) 1 applic RC BID [facility] Last Admin: 10/10/17 21:59 Dose: 1 applic CEFTRIAXONE IN IS-OSM DEXTROSE (Ceftriaxone 2 Gm-D5w Bag) 2 gm in 50 mls @ 100 mls/hr IVPB DAILY [facility] Last Admin: 10/11/17 09:14 Dose: 100 mls/hr Insulin Aspart (Novolog Vial Sliding Scale -) 1 vial SQ HS [facility] PRN Reason: Protocol Last Admin: 10/10/17 21:58 Dose: Not Given Insulin Aspart (Novolog Vial Sliding Scale -) 1 vial SQ TIDAC [facility] PRN Reason: Protocol Last Admin: 10/11/17 06:10 Dose: Not Given Lactobacillus Acidophilus (Bacid -) 1 tab GT BID [facility] Last Admin: 10/11/17 09:24 Dose: 1 tab Levothyroxine Sodium (Synthroid -) 25 mcg GT DAILY@0700 [facility] Last Admin: 10/11/17 06:11 Dose: 25 mcg Mirtazapine (Remeron -) 15 mg GT [facility] Last Admin: 10/10/17 22:00 Dose: 15 mg Montelukast Sodium (Singulair -) 10 mg GT [facility] Last Admin: 10/10/17 22:01 Dose: 10 mg Pantoprazole Sodium (Protonix -) 40 mg PO DAILY [facility] Last Admin: 10/11/17 09:21 Dose: 40 mg Paroxetine HCl (Paxil -) 10 mg NR [facility] Last Admin: 10/10/17 22:00 Dose: 10 mg Prednisone (Deltasone -) 40 mg PO DAILY [facility] Last Admin: 10/11/17 09:21 Dose: 40 mg Scopolamine HBr (Transderm-Scop -) 1 patch TD Q72H [facility] Last Admin: 10/10/17 13:41 Dose: 1 patch Trazodone HCl (Desyrel -) 50 mg NR [facility] Last Admin: 10/10/17 22:00 Dose: 50 mg - Objective Vital Signs: Vital Signs Temperature 98.1 F 10/11/17 06:32 Pulse Rate 63 10/11/17 06:32 Respiratory Rate 19 10/11/17 06:32 Blood Pressure 117/71 10/11/17 06:32 O2 Sat by Pulse Oximetry (%) 98 10/11/17 06:10 Constitutional: Yes: No Distress Cardiovascular: Yes: Regular Rate and Rhythm Respiratory: Yes: Diminished Gastrointestinal: Yes: Normal Bowel Sounds, Soft. No: Tenderness Edema: No Labs: CBC, BMP 10/11/17 06:00 INR, PTT INR 1.10 (0.82-1.09) 10/01/17 16:30 Problem List - Problems (1) Acute respiratory failure Code(s): J96.00 - ACUTE RESPIRATORY FAILURE, UNSP W HYPOXIA OR HYPERCAPNIA (2) COPD exacerbation Code(s): J44.1 - CHRONIC OBSTRUCTIVE PULMONARY DISEASE W (ACUTE) EXACERBATION (3) Diabetes Code(s): E11.9 - TYPE 2 DIABETES MELLITUS WITHOUT COMPLICATIONS (4) Neuropathy Code(s): G62.9 - POLYNEUROPATHY, UNSPECIFIED (5) Depression Code(s): F32.9 - MAJOR DEPRESSIVE DISORDER, SINGLE EPISODE, UNSPECIFIED Assessment/Plan PLAN on trach collar iv antibiotics po prednisone continue with meds scopolamine patch for excessive secretions add Hydrozyxyzine-- may help with secretions as well
[2017-10-11 11:03] LABS: CHLORIDE 97 mmol/L (98-107); POTASSIUM 4.6 mmol/L (3.5-5.1); SODIUM 139 mmol/L (136-145)
[2017-10-11 11:17] LABS: ANION GAP 4 (8-16); BLOOD UREA NITROGEN 17 mg/dL (7-18); CO2 38 mmol/L (21-32); CREATININE 0.4 mg/dL (0.55-1.02); GLUCOSE,RANDOM 69 mg/dL (74-106)
[2017-10-11] MEDS: HYDROCORTISONE 2.5% TOPICAL CREAM 30 GM TUBE RC SCH ×2 (11:28→21:43)
[2017-10-11] MEDS ORDERED: predniSONE 20 MG TABLET (UD) PO SCH (11:35)
--- NOTE | 2017-10-11 11:36 | PN ---
Progress Note (short form) - Note Progress Note: PULMONARY MUCH IMPROVED VSS/USING PMV WITHOUT DIFFICULTY ORAL DIET MBS NOTED NO ASPIRATION SECRETIONS ARE THICK ANICTERIC/TRACH CLEAR ANTERIOR B/L BREATH SOUNDS S1S2 BS+ LESS EDEMA LABS/MEDS/NOTES REVIEWED Acute on Chronic Hypoxic and Hypercapneic Respiratory Failure resolved LV Diastolic Dysfunction Morbid Obesity DM Bipolar Disorder - trach collar as tolerated, pmv prn - antibiotics as per ID - prednisone reduced to 20 mg daily - inhaled bronchodilators - continue scopolamine patch - PO as tolerated - DVT proph - Need accurate weight recordings Marcus ALVA MD Problem List - Problems (1) Acute respiratory failure Code(s): J96.00 - ACUTE RESPIRATORY FAILURE, UNSP W HYPOXIA OR HYPERCAPNIA (2) COPD exacerbation Code(s): J44.1 - CHRONIC OBSTRUCTIVE PULMONARY DISEASE W (ACUTE) EXACERBATION (3) DVT prophylaxis Code(s): TEX9417 - (4) Morbid obesity Code(s): E66.01 - MORBID (SEVERE) OBESITY DUE TO EXCESS CALORIES (5) Polysubstance (excluding opioids) dependence Code(s): F19.20 - OTHER PSYCHOACTIVE SUBSTANCE DEPENDENCE, UNCOMPLICATED
--- NOTE | 2017-10-11 12:49 | PN ---
Progress Note, Physician History of Present Illness: stable doing well - Current Medication List Current Medications: Active Medications Acetaminophen (Tylenol -) 650 mg PO Q6H PRN PRN Reason: PAIN OR FEVER Last Admin: 10/08/17 03:37 Dose: 650 mg Albuterol Sulfate (Ventolin 0.083% Nebulizer Soln -) 1 amp NEB Q6H PRN PRN Reason: SHORT OF BREATH/WHEEZING Albuterol Sulfate (Ventolin 0.083% Nebulizer Soln -) 1 amp NEB Q4H [facility] Last Admin: 10/11/17 12:39 Dose: 1 amp Aripiprazole (Abilify) 5 mg NR HS [facility] Last Admin: 10/10/17 21:59 Dose: 5 mg Aspirin (Asa -) 81 mg GT DAILY [facility] Last Admin: 10/11/17 09:22 Dose: 81 mg Budesonide/Formoterol Fumarate (Symbicort 160/4.5mcg -) 1 puff IH BID [facility] Last Admin: 10/11/17 09:21 Dose: 1 puff Chlorhexidine Gluconate (Peridex -) 15 ml MM BID [facility] Last Admin: 10/11/17 09:25 Dose: 15 ml Enoxaparin Sodium (Lovenox -) 40 mg SQ DAILY [facility] Last Admin: 10/11/17 09:16 Dose: 40 mg Escitalopram Oxalate (Lexapro -) 20 mg GT DAILY [facility] Last Admin: 10/11/17 09:22 Dose: 20 mg Furosemide (Lasix -) 20 mg GT DAILY [facility] Last Admin: 10/11/17 09:21 Dose: 20 mg Gabapentin (Neurontin Oral Liquid -) 600 mg GT BID [facility] Last Admin: 10/11/17 09:36 Dose: 600 mg Hydrocortisone (Anusol 2.5% Hc Cream -) 1 applic RC BID [facility] Last Admin: 10/11/17 11:28 Dose: 1 applic Hydroxyzine HCl (Atarax -) 10 mg PO TID [facility] CEFTRIAXONE IN IS-OSM DEXTROSE (Ceftriaxone 2 Gm-D5w Bag) 2 gm in 50 mls @ 100 mls/hr IVPB DAILY [facility] Last Admin: 10/11/17 09:14 Dose: 100 mls/hr Insulin Aspart (Novolog Vial Sliding Scale -) 1 vial SQ HS [facility] PRN Reason: Protocol Last Admin: 10/10/17 21:58 Dose: Not Given Insulin Aspart (Novolog Vial Sliding Scale -) 1 vial SQ TIDAC [facility] PRN Reason: Protocol Last Admin: 10/11/17 11:28 Dose: Not Given Lactobacillus Acidophilus (Bacid -) 1 tab GT BID [facility] Last Admin: 10/11/17 09:24 Dose: 1 tab Levothyroxine Sodium (Synthroid -) 25 mcg GT DAILY@0700 [facility] Last Admin: 10/11/17 06:11 Dose: 25 mcg Mirtazapine (Remeron -) 15 mg GT [facility] Last Admin: 10/10/17 22:00 Dose: 15 mg Montelukast Sodium (Singulair -) 10 mg GT [facility] Last Admin: 10/10/17 22:01 Dose: 10 mg Pantoprazole Sodium (Protonix -) 40 mg PO DAILY [facility] Last Admin: 10/11/17 09:21 Dose: 40 mg Paroxetine HCl (Paxil -) 10 mg NR [facility] Last Admin: 10/10/17 22:00 Dose: 10 mg Prednisone (Deltasone -) 20 mg PO DAILY [facility] Scopolamine HBr (Transderm-Scop -) 1 patch TD Q72H [facility] Last Admin: 10/10/17 13:41 Dose: 1 patch Trazodone HCl (Desyrel -) 50 mg NR [facility] Last Admin: 10/10/17 22:00 Dose: 50 mg - Objective Vital Signs: Vital Signs Temperature 98.1 F 10/11/17 06:32 Pulse Rate 63 10/11/17 06:32 Respiratory Rate 19 10/11/17 06:32 Blood Pressure 117/71 10/11/17 06:32 O2 Sat by Pulse Oximetry (%) 98 10/11/17 06:10 Constitutional: Yes: No Distress, Calm, Obese Cardiovascular: Yes: Regular Rate and Rhythm Respiratory: Yes: Regular, CTA Bilaterally Gastrointestinal: Yes: Normal Bowel Sounds, Soft Musculoskeletal: Yes: WNL Extremities: Yes: WNL Neurological: Yes: Alert, Oriented Psychiatric: Yes: Alert, Oriented Labs: CBC, BMP 10/11/17 06:00 10/11/17 06:00 INR, PTT INR 1.10 (0.82-1.09) 10/01/17 16:30 Assessment/Plan Problem List - Problems (1) Acute respiratory failure Code(s): J96.00 - ACUTE RESPIRATORY FAILURE, UNSP W HYPOXIA OR HYPERCAPNIA (2) COPD exacerbation Code(s): J44.1 - CHRONIC OBSTRUCTIVE PULMONARY DISEASE W (ACUTE) EXACERBATION (3) DVT prophylaxis Code(s): BIG7822 - (4) Morbid obesity Code(s): E66.01 - MORBID (SEVERE) OBESITY DUE TO EXCESS CALORIES (5) Polysubstance (excluding opioids) dependence Code(s): F19.20 - OTHER PSYCHOACTIVE SUBSTANCE DEPENDENCE, UNCOMPLICATED 6) pneumonia all cx report noted plan secretions improving continue to monitor if improving might change to oral rest continue current mgmt
[2017-10-11] MEDS: hydrOXYzine HCL 10 MG TABLET PO SCH ×2 (14:46→21:42)
[2017-10-11] MEDS: MIRTAZAPINE 15 MG TABLET (FP) GT SCH (21:41)
[2017-10-11] MEDS: traZODone HCL 50 MG TABLET (FP) NR SCH (21:41)
[2017-10-11] MEDS: PARoxetine HCL 10 MG TABLET (FP) NR SCH (21:42)
[2017-10-11] MEDS: MONTELUKAST NA 10 MG TABLET GT SCH (21:42)
[2017-10-11] MEDS: ARIPiprazole 5 MG TABLET (FP) NR SCH (21:43)
[2017-10-12] MEDS: ALBUTEROL SO4 0.083% IH SOL 2.5 MG/3 ML VIAL.NEB. NEB SCH ×5 (00:32→16:31)
[2017-10-12] MEDS: INSULIN SLIDING SCALE (NOVOLOG) 1 VIAL SQ SCH ×2 (06:02→12:05)
[2017-10-12] MEDS: hydrOXYzine HCL 10 MG TABLET PO SCH ×2 (06:04→15:49)
[2017-10-12] MEDS: LEVOTHYROXINE NA 25 MCG TABLET (FP) GT SCH (06:04)
--- NOTE | 2017-10-12 09:20 | PN ---
Progress Note, Physician History of Present Illness: patient seen and examined. Chart reviewed. Comfortable. on trach collar +ve secretions.-- much better afebrile Alert and awake. - Current Medication List Current Medications: Active Medications Acetaminophen (Tylenol -) 650 mg PO Q6H PRN PRN Reason: PAIN OR FEVER Last Admin: 10/08/17 03:37 Dose: 650 mg Albuterol Sulfate (Ventolin 0.083% Nebulizer Soln -) 1 amp NEB Q6H PRN PRN Reason: SHORT OF BREATH/WHEEZING Albuterol Sulfate (Ventolin 0.083% Nebulizer Soln -) 1 amp NEB Q4H [facility] Last Admin: 10/12/17 08:19 Dose: 1 amp Aripiprazole (Abilify) 5 mg NR HS [facility] Last Admin: 10/11/17 21:43 Dose: 5 mg Aspirin (Asa -) 81 mg GT DAILY [facility] Last Admin: 10/11/17 09:22 Dose: 81 mg Budesonide/Formoterol Fumarate (Symbicort 160/4.5mcg -) 1 puff IH BID [facility] Last Admin: 10/11/17 21:40 Dose: 1 puff Chlorhexidine Gluconate (Peridex -) 15 ml MM BID [facility] Last Admin: 10/11/17 21:44 Dose: 15 ml Enoxaparin Sodium (Lovenox -) 40 mg SQ DAILY [facility] Last Admin: 10/11/17 09:16 Dose: 40 mg Escitalopram Oxalate (Lexapro -) 20 mg GT DAILY [facility] Last Admin: 10/11/17 09:22 Dose: 20 mg Furosemide (Lasix -) 20 mg GT DAILY [facility] Last Admin: 10/11/17 09:21 Dose: 20 mg Gabapentin (Neurontin Oral Liquid -) 600 mg GT BID [facility] Last Admin: 10/11/17 22:01 Dose: 600 mg Hydrocortisone (Anusol 2.5% Hc Cream -) 1 applic RC BID [facility] Last Admin: 10/11/17 21:43 Dose: 1 applic Hydroxyzine HCl (Atarax -) 10 mg PO TID [facility] Last Admin: 10/12/17 06:04 Dose: 10 mg CEFTRIAXONE IN IS-OSM DEXTROSE (Ceftriaxone 2 Gm-D5w Bag) 2 gm in 50 mls @ 100 mls/hr IVPB DAILY [facility] Last Admin: 10/11/17 09:14 Dose: 100 mls/hr Insulin Aspart (Novolog Vial Sliding Scale -) 1 vial SQ HS [facility] PRN Reason: Protocol Last Admin: 10/11/17 22:11 Dose: Not Given Insulin Aspart (Novolog Vial Sliding Scale -) 1 vial SQ TIDAC [facility] PRN Reason: Protocol Last Admin: 10/12/17 06:02 Dose: Not Given Lactobacillus Acidophilus (Bacid -) 1 tab GT BID [facility] Last Admin: 10/11/17 22:15 Dose: Not Given Levothyroxine Sodium (Synthroid -) 25 mcg GT DAILY@0700 [facility] Last Admin: 10/12/17 06:04 Dose: 25 mcg Mirtazapine (Remeron -) 15 mg GT [facility] Last Admin: 10/11/17 21:41 Dose: 15 mg Montelukast Sodium (Singulair -) 10 mg GT [facility] Last Admin: 10/11/17 21:42 Dose: 10 mg Pantoprazole Sodium (Protonix -) 40 mg PO DAILY [facility] Last Admin: 10/11/17 09:21 Dose: 40 mg Paroxetine HCl (Paxil -) 10 mg NR [facility] Last Admin: 10/11/17 21:42 Dose: 10 mg Prednisone (Deltasone -) 20 mg PO DAILY [facility] Scopolamine HBr (Transderm-Scop -) 1 patch TD Q72H [facility] Last Admin: 10/10/17 13:41 Dose: 1 patch Trazodone HCl (Desyrel -) 50 mg NR [facility] Last Admin: 10/11/17 21:41 Dose: 50 mg - Objective Vital Signs: Vital Signs Temperature 98.8 F 10/12/17 05:55 Pulse Rate 63 10/12/17 08:26 Respiratory Rate 18 10/12/17 05:55 Blood Pressure 122/60 10/12/17 05:55 O2 Sat by Pulse Oximetry (%) 98 10/12/17 08:26 Constitutional: Yes: No Distress, Calm Eyes: Yes: Conjunctiva Clear Neck: Yes: Supple, Other (s/p trach) Cardiovascular: Yes: Regular Rate and Rhythm Respiratory: Yes: Diminished Gastrointestinal: Yes: Soft Edema: No Neurological: Yes: Alert Labs: CBC, BMP 10/11/17 06:00 10/11/17 06:00 INR, PTT INR 1.10 (0.82-1.09) 10/01/17 16:30 Problem List - Problems (1) Acute respiratory failure Code(s): J96.00 - ACUTE RESPIRATORY FAILURE, UNSP W HYPOXIA OR HYPERCAPNIA (2) Morbid obesity Code(s): E66.01 - MORBID (SEVERE) OBESITY DUE TO EXCESS CALORIES Assessment/Plan clinically stable Meds reviewed. All consults noted and appreciated. Frequent suctioning. Taper steroids slowly. doing well with pmv Discussed with nursing staff change to po abx and discharge today ? will discuss with i/d Anticipate d/c later today.
[2017-10-12] MEDS ORDERED: PT OWN MED DRAWER 7, Y5N ONE (10:13)
[2017-10-12] MEDS: ASPIRIN 81 MG CHEWABLE TABLETS GT SCH (10:57)
[2017-10-12] MEDS: PANTOPRAZOLE 40 MG TABLET (FP) PO SCH (10:57)
[2017-10-12] MEDS: LACTOBACILLUS ACIDOPHILUS 1 EACH TAB (FP) GT SCH (10:57)
[2017-10-12] MEDS: FUROSEMIDE 20 MG TABLET (FP) GT SCH (10:57)
[2017-10-12] MEDS: BUDESONIDE/FORMETEROL FUMARATE 160/4.5 mcg INHALER IH SCH (10:58)
[2017-10-12] MEDS: ENOXAPARIN NA (PORCINE) 40 MG/0.4 ML DISP.SYRIN SQ SCH (10:58)
[2017-10-12] MEDS: ESCITALOPRAM OXALATE 20 MG TABLET (FP) GT SCH (10:58)
[2017-10-12] MEDS: HYDROCORTISONE 2.5% TOPICAL CREAM 30 GM TUBE RC SCH (10:58)
[2017-10-12] MEDS: CEFTRIAXONE IN IS-OSM DEXTROSE 2 GM/50 ML BAG IVPB SCH (10:58)
--- NOTE | 2017-10-12 11:18 | PN ---
Progress Note, DATA MANAGEMENT SPECIALIST - Note Progress Note: Selected Entries 10/11/17 10/11/17 10/11/17 06:32 12:28 15:07 Breakfast 100% Lunch 100% Supper Temperature 98.1 F 99.5 F 10/11/17 10/11/17 10/12/17 19:00 20:10 02:09 Breakfast Lunch Supper 100% Temperature 98.9 F 97.8 F 10/12/17 05:55 Breakfast Lunch Supper Temperature 98.8 F Laboratory Tests 10/11/17 06:00 WBC 9.1 Pt doing quite well with pmv and po diet. Pt wearing pmv for all meals, eating more slowly and carefully. Pt denies difficulty with diet. Pt does report significant secretions.Secretions are thick and she is unable to expectorate them out of her mouth. Continue diet/PMV, as tolerated.
--- NOTE | 2017-10-12 13:10 | PN ---
Progress Note, Physician History of Present Illness: doing well breathing better secretions much better today patient feels better - Current Medication List Current Medications: Active Medications Acetaminophen (Tylenol -) 650 mg PO Q6H PRN PRN Reason: PAIN OR FEVER Last Admin: 10/08/17 03:37 Dose: 650 mg Albuterol Sulfate (Ventolin 0.083% Nebulizer Soln -) 1 amp NEB Q6H PRN PRN Reason: SHORT OF BREATH/WHEEZING Albuterol Sulfate (Ventolin 0.083% Nebulizer Soln -) 1 amp NEB Q4H [facility] Last Admin: 10/12/17 11:37 Dose: 1 amp Aripiprazole (Abilify) 5 mg NR HS [facility] Last Admin: 10/11/17 21:43 Dose: 5 mg Aspirin (Asa -) 81 mg GT DAILY [facility] Last Admin: 10/12/17 10:57 Dose: 81 mg Budesonide/Formoterol Fumarate (Symbicort 160/4.5mcg -) 1 puff IH BID [facility] Last Admin: 10/12/17 10:58 Dose: 1 puff Chlorhexidine Gluconate (Peridex -) 15 ml MM BID [facility] Last Admin: 10/11/17 21:44 Dose: 15 ml Enoxaparin Sodium (Lovenox -) 40 mg SQ DAILY [facility] Last Admin: 10/12/17 10:58 Dose: 40 mg Escitalopram Oxalate (Lexapro -) 20 mg GT DAILY [facility] Last Admin: 10/12/17 10:58 Dose: 20 mg Furosemide (Lasix -) 20 mg GT DAILY [facility] Last Admin: 10/12/17 10:57 Dose: 20 mg Gabapentin (Neurontin Oral Liquid -) 600 mg GT BID [facility] Last Admin: 10/11/17 22:01 Dose: 600 mg Hydrocortisone (Anusol 2.5% Hc Cream -) 1 applic RC BID [facility] Last Admin: 10/12/17 10:58 Dose: 1 applic Hydroxyzine HCl (Atarax -) 10 mg PO TID [facility] Last Admin: 10/12/17 06:04 Dose: 10 mg CEFTRIAXONE IN IS-OSM DEXTROSE (Ceftriaxone 2 Gm-D5w Bag) 2 gm in 50 mls @ 100 mls/hr IVPB DAILY [facility] Last Admin: 10/12/17 10:58 Dose: 100 mls/hr Insulin Aspart (Novolog Vial Sliding Scale -) 1 vial SQ HS [facility] PRN Reason: Protocol Last Admin: 10/11/17 22:11 Dose: Not Given Insulin Aspart (Novolog Vial Sliding Scale -) 1 vial SQ TIDAC [facility] PRN Reason: Protocol Last Admin: 10/12/17 06:02 Dose: Not Given Lactobacillus Acidophilus (Bacid -) 1 tab GT BID [facility] Last Admin: 10/12/17 10:57 Dose: 1 tab Levothyroxine Sodium (Synthroid -) 25 mcg GT DAILY@0700 [facility] Last Admin: 10/12/17 06:04 Dose: 25 mcg Mirtazapine (Remeron -) 15 mg GT HS [facility] Last Admin: 10/11/17 21:41 Dose: 15 mg Montelukast Sodium (Singulair -) 10 mg GT [facility] Last Admin: 10/11/17 21:42 Dose: 10 mg Pantoprazole Sodium (Protonix -) 40 mg PO DAILY [facility] Last Admin: 10/12/17 10:57 Dose: 40 mg Paroxetine HCl (Paxil -) 10 mg NR [facility] Last Admin: 10/11/17 21:42 Dose: 10 mg Prednisone (Deltasone -) 20 mg PO DAILY [facility] Last Admin: 10/12/17 10:57 Dose: 20 mg Scopolamine HBr (Transderm-Scop -) 1 patch TD Q72H [facility] Last Admin: 10/10/17 13:41 Dose: 1 patch Trazodone HCl (Desyrel -) 50 mg NR [facility] Last Admin: 10/11/17 21:41 Dose: 50 mg - Objective Vital Signs: Vital Signs Temperature 98.8 F 10/12/17 05:55 Pulse Rate 63 10/12/17 08:26 Respiratory Rate 18 10/12/17 05:55 Blood Pressure 122/60 10/12/17 05:55 O2 Sat by Pulse Oximetry (%) 98 10/12/17 08:26 Constitutional: Yes: No Distress, Calm, Obese Cardiovascular: Yes: Regular Rate and Rhythm Respiratory: Yes: Regular, CTA Bilaterally Gastrointestinal: Yes: Normal Bowel Sounds, Soft Musculoskeletal: Yes: WNL Extremities: Yes: WNL Neurological: Yes: Alert, Oriented Labs: CBC, BMP 10/11/17 06:00 10/11/17 06:00 INR, PTT INR 1.10 (0.82-1.09) 10/01/17 16:30 Assessment/Plan Problem List - Problems (1) Acute respiratory failure Code(s): J96.00 - ACUTE RESPIRATORY FAILURE, UNSP W HYPOXIA OR HYPERCAPNIA (2) COPD exacerbation Code(s): J44.1 - CHRONIC OBSTRUCTIVE PULMONARY DISEASE W (ACUTE) EXACERBATION (3) DVT prophylaxis Code(s): [id number] - (4) Morbid obesity Code(s): E66.01 - MORBID (SEVERE) OBESITY DUE TO EXCESS CALORIES (5) Polysubstance (excluding opioids) dependence Code(s): F19.20 - OTHER PSYCHOACTIVE SUBSTANCE DEPENDENCE, UNCOMPLICATED 6) pneumonia all cx report noted plan will change abx to po rest continue current mgmt oral abx for another 10 days keflex
--- NOTE | 2017-10-12 13:39 | PN ---
Progress Note, Physician History of Present Illness: pulmonary alert,nad,on trach collar,speaking well with pmv - Current Medication List Current Medications: Active Medications Acetaminophen (Tylenol -) 650 mg PO Q6H PRN PRN Reason: PAIN OR FEVER Last Admin: 10/08/17 03:37 Dose: 650 mg Albuterol Sulfate (Ventolin 0.083% Nebulizer Soln -) 1 amp NEB Q6H PRN PRN Reason: SHORT OF BREATH/WHEEZING Albuterol Sulfate (Ventolin 0.083% Nebulizer Soln -) 1 amp NEB Q4H [facility] Last Admin: 10/12/17 11:37 Dose: 1 amp Aripiprazole (Abilify) 5 mg NR HS [facility] Last Admin: 10/11/17 21:43 Dose: 5 mg Aspirin (Asa -) 81 mg GT DAILY [facility] Last Admin: 10/12/17 10:57 Dose: 81 mg Budesonide/Formoterol Fumarate (Symbicort 160/4.5mcg -) 1 puff IH BID [facility] Last Admin: 10/12/17 10:58 Dose: 1 puff Cephalexin HCl (Keflex -) 500 mg PO Q6HPO [facility] Chlorhexidine Gluconate (Peridex -) 15 ml MM BID [facility] Last Admin: 10/11/17 21:44 Dose: 15 ml Enoxaparin Sodium (Lovenox -) 40 mg SQ DAILY [facility] Last Admin: 10/12/17 10:58 Dose: 40 mg Escitalopram Oxalate (Lexapro -) 20 mg GT DAILY [facility] Last Admin: 10/12/17 10:58 Dose: 20 mg Furosemide (Lasix -) 20 mg GT DAILY [facility] Last Admin: 10/12/17 10:57 Dose: 20 mg Gabapentin (Neurontin Oral Liquid -) 600 mg GT BID [facility] Last Admin: 10/11/17 22:01 Dose: 600 mg Hydrocortisone (Anusol 2.5% Hc Cream -) 1 applic RC BID [facility] Last Admin: 10/12/17 10:58 Dose: 1 applic Hydroxyzine HCl (Atarax -) 10 mg PO TID [facility] Last Admin: 10/12/17 06:04 Dose: 10 mg Insulin Aspart (Novolog Vial Sliding Scale -) 1 vial SQ HS [facility] PRN Reason: Protocol Last Admin: 10/11/17 22:11 Dose: Not Given Insulin Aspart (Novolog Vial Sliding Scale -) 1 vial SQ TIDAC [facility] PRN Reason: Protocol Last Admin: 10/12/17 06:02 Dose: Not Given Lactobacillus Acidophilus (Bacid -) 1 tab GT BID [facility] Last Admin: 10/12/17 10:57 Dose: 1 tab Levothyroxine Sodium (Synthroid -) 25 mcg GT DAILY@0700 [facility] Last Admin: 10/12/17 06:04 Dose: 25 mcg Mirtazapine (Remeron -) 15 mg GT HS [facility] Last Admin: 10/11/17 21:41 Dose: 15 mg Montelukast Sodium (Singulair -) 10 mg GT HS [facility] Last Admin: 10/11/17 21:42 Dose: 10 mg Pantoprazole Sodium (Protonix -) 40 mg PO DAILY [facility] Last Admin: 10/12/17 10:57 Dose: 40 mg Paroxetine HCl (Paxil -) 10 mg NR [facility] Last Admin: 10/11/17 21:42 Dose: 10 mg Prednisone (Deltasone -) 20 mg PO DAILY [facility] Last Admin: 10/12/17 10:57 Dose: 20 mg Scopolamine HBr (Transderm-Scop -) 1 patch TD Q72H [facility] Last Admin: 10/10/17 13:41 Dose: 1 patch Trazodone HCl (Desyrel -) 50 mg NR [facility] Last Admin: 10/11/17 21:41 Dose: 50 mg - Objective Vital Signs: Vital Signs Temperature 98.8 F 10/12/17 05:55 Pulse Rate 63 10/12/17 08:26 Respiratory Rate 18 10/12/17 05:55 Blood Pressure 122/60 10/12/17 05:55 O2 Sat by Pulse Oximetry (%) 98 10/12/17 08:26 Constitutional: Yes: Well Nourished, Calm Eyes: Yes: WNL HENT: Yes: WNL Cardiovascular: Yes: Regular Rate and Rhythm, S1, S2 Respiratory: Yes: Diminished Gastrointestinal: Yes: Normal Bowel Sounds, Soft Extremities: Yes: WNL Edema: No Labs: CBC, BMP Assessment/Plan Acute on Chronic Hypoxic and Hypercapneic Respiratory Failure resolved LV Diastolic Dysfunction Morbid Obesity DM Bipolar Disorder - trach collar as tolerated, pmv prn - antibiotics as per ID - prednisoNE 20 mg daily - inhaled bronchodilators - continue scopolamine patch - PO as tolerated - DVT proph DR STEELE Problem List - Problems (1) Acute respiratory failure Code(s): J96.00 - ACUTE RESPIRATORY FAILURE, UNSP W HYPOXIA OR HYPERCAPNIA (2) COPD exacerbation Code(s): J44.1 - CHRONIC OBSTRUCTIVE PULMONARY DISEASE W (ACUTE) EXACERBATION (3) DVT prophylaxis Code(s): [id number] - (4) Morbid obesity Code(s): E66.01 - MORBID (SEVERE) OBESITY DUE TO EXCESS CALORIES (5) Polysubstance (excluding opioids) dependence Code(s): F19.20 - OTHER PSYCHOACTIVE SUBSTANCE DEPENDENCE, UNCOMPLICATED
--- NOTE | 2017-10-12 13:39 | DS ---
Physical Examination Vital Signs: Vital Signs Temperature 98.8 F 10/12/17 05:55 Pulse Rate 63 10/12/17 08:26 Respiratory Rate 18 10/12/17 05:55 Blood Pressure 122/60 10/12/17 05:55 O2 Sat by Pulse Oximetry (%) 98 10/12/17 08:26 Findings/Remarks: see today progress note Labs: CBC, BMP 10/11/17 06:00 10/11/17 06:00 Discharge Summary Reason For Visit: COPD/ACUTE RESP FAIL WITH HYPOXIA AND HYPERCAPNIA Current Active Problems Acute respiratory failure (Acute) COPD exacerbation (Acute) Depression (Acute) Diabetes (Acute) Neuropathy (Acute) Hospital Course: This is a 52 year old female with a significant past medical history of chronic hypercapneic, hypoxic respiratory failure, trach dependent but not vent depentdent who presented to the ED from [facility] with SOB and ox sat of 80%. Pt reports feeling much better now on vent. Of note, pt was recently hospitalized 09/22-09/26 at [facility] for pna, sputum grew P. Mirabilis and she was on unasyn, dc home on augmentin pt treated with abx/ steroids Initially was vent dependent-- now on trach collar sputum grew - E. Coli treated with Abx- Rocpehin. Pulmonary/ i/d followed also did well with pmv valve tolerating diet Now stable for d/c on po abx taper steroids slowly. Meds reconcilled Discussed with Nursing staff also. Pt also in agreement. D/c time 35 min in examining/ documenting and coordating care. Condition: Improved - Instructions Referrals: ON STAFF,NOT [Primary Care Provider] - Disposition: NURSING HOME FACILITY - Home Medications Comprehensive Discharge Medication List: Ambulatory Orders Albuterol 0.083% Nebulizer Teresa [Ventolin 0.083% Nebulizer Soln -] 1 amp NEB Q4H PRN #0 amp 05/22/16 Acetaminophen [Tylenol .Regular Strength -] 650 mg GT Q6H PRN 10/01/17 Albuterol Sulfate Inhaler - [Ventolin HFA Inhaler -] 2 inh PO Q6H PRN 10/01/17 Aripiprazole 5 mg GT HS 10/01/17 Aspirin 81 mg GT DAILY 10/01/17 Budesonide/Formeterol Fumarate [SYMBICORT 160/4.5mcg -] 1 puff IH BID 10/01/17 Chlorhexidine Gluconate 15 ml MM BID 10/01/17 Escitalopram Oxalate [Lexapro -] 20 mg PO DAILY 10/01/17 Furosemide 20 mg GT DAILY 10/01/17 Gabapentin Liquid [Neurontin Oral Liquid -] 600 mg PO BID 10/01/17 Hydrocortisone 2.5% Topical Cr [Anusol-Hc -] 1 applic [place] BID 10/01/17 Insulin Lispro [Humalog] unit SQ TID 10/01/17 Lactobacillus Acidophilus [Bacid -] 1 each GT BID 10/01/17 Levothyroxine [Synthroid -] 25 mcg GT DAILY 10/01/17 Mirtazapine 15 mg GT HS 10/01/17 Montelukast Sodium [Singulair] 10 mg GT DAILY 10/01/17 Omeprazole 40 mg GT DAILY 10/01/17 Paroxetine HCl 10 mg GT HS 10/01/17 Trazodone HCl 50 mg GT HS 10/01/17 Cephalexin Monohydrate [Keflex -] 500 mg PO Q6HPO 10 Days #40 capsule 10/12/17 Enoxaparin [Lovenox -] 40 mg SQ DAILY disp.syrin 10/12/17 Pantoprazole Sodium [Protonix -] 40 mg PO DAILY tablet.ec 10/12/17 Scopolamine Hydrobromide [Transderm-Scop -] 1 patch TD Q72H patch.td72 hydrOXYzine HCL [Atarax -] 10 mg PO TID tablet 10/12/17 predniSONE [Deltasone -] 20 mg PO DAILY #30 tablet 10/12/17
[2017-10-12 15:49] VITALS: BP 100/51; PULSE 76; TEMP 98.9
[2017-10-12] MEDS: GABAPENTIN 250 MG/5 ML ORAL SOLUTION, 470 ML BOTTLE GT SCH (15:49)
[2017-10-12] MEDS: CHLORHEXIDINE GLUCONATE 0.12% 15ML CUP MM SCH (15:50)
[2017-10-12] MEDS ORDERED: CEPHALEXIN MONOHYDRATE 500 MG CAPSULE (UD) PO SCH (18:00)
== END 2017-10-12 17:10 | DRG 207 ==
LOC: JER 15:43 → JERBED 18:42 → J5S 10-02 14:26
PROVIDERS: ADMIT Internal Medicine; ATTEND Internal Medicine
PROC: 5A1955Z Respiratory Ventilation, Greater than 96 Consecutive Hours (ICD-10-PCS; principal; 2017-10-01)
PROC: 3E0G76Z Introduction of Nutritional Substance into Upper GI, Via Natural or Artificial Opening (ICD-10-PCS; 2017-10-01)
DX: J96.22 Acute and chronic respiratory failure with hypercapnia (principal); J18.9 Pneumonia, unspecified organism; E66.2 Morbid (severe) obesity with alveolar hypoventilation; J44.1 Chronic obstructive pulmonary disease with (acute) exacerbation; Z68.43 Body mass index [BMI] 50.0-59.9, adult; F19.20 Other psychoactive substance dependence, uncomplicated; J96.21 Acute and chronic respiratory failure with hypoxia; F20.9 Schizophrenia, unspecified; E03.9 Hypothyroidism, unspecified; Z93.0 Tracheostomy status; Z99.3 Dependence on wheelchair; F17.210 Nicotine dependence, cigarettes, uncomplicated; Z79.4 Long term (current) use of insulin; Z93.1 Gastrostomy status; Z99.81 Dependence on supplemental oxygen; F31.9 Bipolar disorder, unspecified; I11.0 Hypertensive heart disease with heart failure; I50.9 Heart failure, unspecified; E11.40 Type 2 diabetes mellitus with diabetic neuropathy, unspecified
CPT/HCPCS: 36415; 71045-TC-FY; 74230-TC-FY; 80048; 80053; 81003; 81015; 82803; 82962; 83605; 83735; 84100; 84484; 85025; 85027; 85610; 85730; 87040; 87070; 87086; 87186; 87205; 92611-GN; 93005; 93010; 94002; 94640; 99285-25; J1644

== ENCOUNTER 2017-10-18 07:14 | Emergency (ER) | payer OTHER ==
[2017-10-18 07:52] VITALS: TEMP 98.2; BMI 56.8
[2017-10-18] MEDS ORDERED: methylPREDNISolone NA SUCC 125 MG/2 ML VIAL IVPUSH ONE (08:01)
--- NOTE | 2017-10-18 08:06 | PDOC ---
History of Present Illness - General Chief Complaint: Asthma Stated Complaint: DIFFICULTY BREATHING Time Seen by Provider: 10/18/17 07:31 History Source: Patient, [facility] - History of Present Illness Timing/Duration: reports: this morning Past History - Past Medical History Allergies/Adverse Reactions: Allergies Allergy/AdvReac Type Severity Reaction Status Date / Time No Known Allergies Allergy Unverified 10/18/17 07:52 Home Medications: Ambulatory Orders Acetaminophen 650 mg PO DAILY 10/18/17 Albuterol 2.5/Ipratropium 0.5 [Duoneb -] 1 neb NEB Q4H 10/18/17 Albuterol Sulfate [Proair Respiclick] 90 mcg IH TID 10/18/17 Aripiprazole 5 mg PO DAILY 10/18/17 Aspirin 81 mg PO DAILY 10/18/17 Budesonide/Formeterol Fumarate [SYMBICORT 160/4.5mcg -] 1 inh PO BID 10/18/17 Cephalexin [Keflex] 500 mg PO DAILY 10/18/17 Chlorhexidine Gluconate 480 ml MM BID 10/18/17 Clotrimazole/Betamet Diprop [Lotrisone Cream (Small Tube)] 1 applic TP BID 10/18 Ergocalciferol (Vitamin D2) [Vitamin D2] 50,000 unit PO WEEKLY 10/18/17 Escitalopram Oxalate [Lexapro -] 20 mg PO DAILY 10/18/17 Escitalopram Oxalate [Lexapro -] 20 mg PO DAILY 10/18/17 Fluconazole 100 mg PO DAILY 10/18/17 Furosemide [Lasix -] 20 mg PO DAILY 10/18/17 Gabapentin 250 mg PO BID 10/18/17 Heparin Sod,Porcine/0.9 % NaCl [Heparin 5,000 Unit/1,000 ml-Ns] 5,000 unit SCJ BID 10/18/17 Hydrocortisone/Pramoxine [Hydrocort-Pramoxine 2.5%-1% cm] 4 gm TP DAILY Insulin Lispro [Humalog] 100 unit SQ ASDIR 10/18/17 Ipratropium 0.02% Nebulizer [Atrovent] 1 neb NEB QID 10/18/17 Lactobacillus Acidophilus [Acidophilus] 1 each PO BID 10/18/17 Levothyroxine [Synthroid -] 25 mcg PO DAILY 10/18/17 Loratadine 10 mg PO DAILY 10/18/17 Mirtazapine 15 mg PO DAILY 10/18/17 Montelukast Na [Singulair -] 10 mg PO HS 10/18/17 Prednisone 5 mg PO DAILY 10/18/17 Prednisone 10 mg PO DAILY 10/18/17 Ranitidine [Zantac -] 300 mg PO ONCE 10/18/17 Trazodone HCl 50 mg PO DAILY 10/18/17 hydrOXYzine HCL [Atarax -] 10 mg PO TID 10/18/17 Cardiac Disorders: (heart failure- 2013) COPD: Yes CHF: Yes Psychiatric Problems: Yes (bipolar) Seizures: Yes Thyroid Disease: Yes - Suicide/Smoking/Psychosocial Hx Smoking Status: No Smoking History: Unknown if ever smoked Have you smoked in the past 12 months: Yes Number of Cigarettes Smoked Daily: 5 If you are a former smoker, when did you quit?: 2013 Information on smoking cessation initiated: No 'Breaking Loose' booklet given: 05/11/16 Hx Alcohol Use: No Drug/Substance Use Hx: No Substance Use Type: None Hx Substance Use Treatment: No Review of Systems - Review of Systems Constitutional: No: Chills, Fever Respiratory: Yes: Shortness of Breath. No: Cough, Wheezing Cardiac (ROS): No: Chest Pain ABD/GI: No: Nausea, Vomiting *Physical Exam - Vital Signs Last Vital Signs Temp Pulse Resp BP Pulse Ox 98.2 F 80 16 103/64 100 10/18/17 07:15 10/18/17 07:15 10/18/17 07:15 10/18/17 07:15 10/18/17 07:15 - Physical Exam General Appearance: Yes: Appropriately Dressed. No: Apparent Distress Neck: positive: Supple Respiratory/Chest: positive: Wheezing (mild). negative: Respiratory Distress, Accessory Muscle Use Cardiovascular: positive: Regular Rate, S1, S2 Extremity: negative: Pedal Edema Integumentary: positive: Dry, Warm Neurologic: positive: Fully Oriented, Alert, Normal Mood/Affect ED Treatment Course - LABORATORY CBC & Chemistry Diagram: 10/18/17 08:30 10/18/17 08:30 - RADIOLOGY Radiology Studies Ordered: Category Date Time Status CHEST X-RAY PORTABLE* [RAD] Stat Radiology 10/18/17 07:54 Ordered Medical Decision Making - Medical Decision Making 10/18/17 08:02 52 yo F, morbidly obese with COPD, chronic hypercapnia, hypoxic respiratory failure, trach dependent, on lasix, sent from [facility] for hypoxia. Patient states trach was suctioned, but sats remained low, so was sent to ED. States she is feeling better since we suctioned her in ED. No chest pain, cough or fever. See exam Hypoxia Improved w/ suction in ED Trace wheeze resolved w/ duoneb on re-eval CXR read as new congestive changes, labs unremarkable including BNP in the 200s -IV Lasix given in ED as discussed w/ ED attending. -Anticipate discharge back to [place] 10/18/17 16:07 EMS at bedside to transport pt back to [place]. Pt remains stable for transport at this time *DC/Admit/Observation/Transfer Diagnosis at time of Disposition: Hypoxia - Discharge Dispostion Disposition: HOME Condition at time of disposition: Improved - Referrals - Patient Instructions Additional Instructions: Patient's hypoxia improved with suction in the ED. Had trace wheezing that resolved with duoneb. Was also given dose of solumedrol. O2 sat have remained 100% here. Chest x-ray showed possible new congestive changes and patient was given a dose of 40 mg IV Lasix in ED. No evidence of pneumonia. Labs were unremarkable including a BNP in the 200s. EKG did not show any acute changes. Have patient return for worsening of symptoms, otherwise follow-up with PMD and continue home meds - Post Discharge Activity
[2017-10-18] MEDS: ALBUTEROL SO4 2.5/IPRATROPIUM 0.5 INH SOL 3 ML VIAL.NEB. NEB SCH ×3 (08:20→09:35)
[2017-10-18] MEDS ORDERED: methylPREDNISolone NA SUCC 125 MG/2 ML VIAL ONE (08:21)
[2017-10-18] MEDS ORDERED: ALBUTEROL SO4 2.5/IPRATROPIUM 0.5 INH SOL 3 ML VIAL.NEB. NEB ONE ×2 (08:22→08:49)
[2017-10-18 08:48] LABS: BASO % 0.7 % (0-2.0); EOS % 0.6 % (0-4.5); HEMATOCRIT 37.9 % (32.4-45.2); HEMOGLOBIN 12.3 GM/dL (10.7-15.3); LYMPH % 14.9 % (8-40); MCH 30.4 pg (25.7-33.7); MCHC 32.5 g/dl (32.0-36.0); MEAN CELL VOLUME 93.6 fl (80-96); MEAN PLT VOLUME 6.9 fl (7.5-11.1); MONO % 4.7 % (3.8-10.2); NEUT % 79.1 % (42.8-82.8); PLATELET COUNT 217 K/MM3 (134-434); RBC 4.04 M/mm3 (3.60-5.2); RDW 16.1 % (11.6-15.6); WHITE BLOOD COUNT 9.9 K/mm3 (4.0-10.0)
[2017-10-18 09:10] LABS: ANION GAP 3 (8-16); BLOOD UREA NITROGEN 18 mg/dL (7-18); CALCIUM 8.8 mg/dL (8.5-10.1); CHLORIDE 98 mmol/L (98-107); CO2 40 mmol/L (21-32); CREATININE 0.4 mg/dL (0.55-1.02); GLUCOSE,RANDOM 84 mg/dL (74-106); SGPT/ALT 44 U/L (12-78); SODIUM 141 mmol/L (136-145)
[2017-10-18 09:14] LABS: ALK PHOS 71 U/L (45-117); BILIRUBIN,TOTAL 0.4 mg/dL (0.2-1.0); TOT PROT 6.4 g/dl (6.4-8.2)
[2017-10-18 09:15] LABS: POTASSIUM 5.1 mmol/L (3.5-5.1); SGOT/AST 21 U/L (15-37)
[2017-10-18] MEDS ORDERED: FUROSEMIDE 40 MG/4 ML INJECTABLE VIAL IVPUSH ONE (11:45)
[2017-10-18] MEDS ORDERED: FUROSEMIDE 40 MG/4 ML INJECTABLE VIAL ONE (13:26)
[2017-10-18 18:04] VITALS: BP 110/72; PULSE 79
--- NOTE | 2017-10-19 11:37 | EKG ---
Test Reason : Blood Pressure : / mmHG Vent. Rate : 072 BPM Atrial Rate : 072 BPM P-R Int : 152 ms QRS Dur : 110 ms QT Int : 374 ms P-R-T Axes : 047 007 040 degrees QTc Int : 409 ms NORMAL SINUS RHYTHM NORMAL ECG WHEN COMPARED WITH ECG OF 01-OCT-2017 22:58, ST ELEVATION NOW PRESENT IN ANTERIOR LEADS T WAVE AMPLITUDE HAS INCREASED IN ANTERIOR LEADS Confirmed by ELICIA BARKLEY, STEVIE ([id number]) on 10/19/2017 11:36:39 AM Referred By: Confirmed By:STEVIE RUBI MD
== END 2017-10-18 16:22 ==
LOC: JER 07:14
PROC: 3E0F7GC Introduction of Other Therapeutic Substance into Respiratory Tract, Via Natural or Artificial Opening (ICD-10-PCS; principal; 2017-10-18)
PROC: 3E0333Z Introduction of Anti-inflammatory into Peripheral Vein, Percutaneous Approach (ICD-10-PCS; 2017-10-18)
PROC: 3E033GC Introduction of Other Therapeutic Substance into Peripheral Vein, Percutaneous Approach (ICD-10-PCS; 2017-10-18)
DX: R09.02 Hypoxemia (principal); R06.89 Other abnormalities of breathing; I50.9 Heart failure, unspecified; F31.9 Bipolar disorder, unspecified; E07.9 Disorder of thyroid, unspecified; E66.09 Other obesity due to excess calories; Z68.43 Body mass index [BMI] 50.0-59.9, adult; Z93.0 Tracheostomy status; Z87.891 Personal history of nicotine dependence
CPT/HCPCS: 36415; 71045-TC-FY; 80053; 82550; 83880; 84484; 85025; 93005; 93010; 94640; 96374; 96375; 99283-25

== ENCOUNTER 2018-01-07 12:56 | Inpatient (IN) | payer OTHER ==
[2018-01-07] MEDS ORDERED: ACETYLCYSTEINE 20% 200MG/ML 30 ML VIAL *FOR ORAL / INH USE ONLY NEB ONE ×2 (13:10→14:12)
[2018-01-07] MEDS ORDERED: ALBUTEROL SO4 2.5/IPRATROPIUM 0.5 INH SOL 3 ML VIAL.NEB. NEB ONE ×2 (13:10→13:23)
--- NOTE | 2018-01-07 13:10 | PDOC ---
Attending Attestation - ED Attending Attestation I have performed the following: I have examined & evaluated the patient, The case was reviewed & discussed with the resident, I agree w/resident's findings & plan, Exceptions are as noted - HPI HPI: The patient is a 52 year old female brought in by EMS from [facility], with a significant past medical history of pneumonia, CHF, chronic hypercapnia, hypoxic respiratory failure, trach dependent, COPD, seizures, and bipolarism, who presents the emergency department for evaluation of shortness of breath. The patient reports moderate shortness of breath and production of blood tinged sputum from tracheal tube. The patient was recently diagnosed with pneumonia. Patient is hypoxic upon arrival. The patient denies chest pain, fever, chills, nausea, vomiting, and urinary/ bowel movements. Allergies: NKDA Social History: Former smoker. No reported alcohol or drug use. Surgical History: Trach PCP: Not on staff. - Physicial Exam PE: Vitals: Triage Vital signs reviewed General Appearance: no acute distress, well nourished well developed, Head: Atraumatic, normocephalic Eyes: Pupils equal reactive round, extraocular movement intact Throat: (+) Bloody sputum in trachea. Neck: Supple Chest Wall: Nontender Cardiac: Regular rate and rhythm, no murmurs, no rubs, no gallops, Lungs: (+)coarse sounds bilaterally. Abdomen: Soft, nondistended, nontender to palpation Extremities: Full range of motion to all extremities, no cyanosis, clubbing, or edema Skin: Warm and dry, no rashes or lesions, no petechiae Psych: normal mood, normal affect. <Arturo Best - Last Filed: 01/07/18 15:13> - Resident Resident Name: Ligia Garcia - ED Attending Attestation I have performed the following: I have examined & evaluated the patient, The case was reviewed & discussed with the resident, I agree w/resident's findings & plan, Exceptions are as noted - Medical Decision Making 01/07/18 17:02 The patient is a 52 year old female brought in by EMS from [facility], with a significant past medical history of pneumonia, CHF, chronic hypercapnia, hypoxic respiratory failure, trach dependent, COPD, seizures, and bipolarism, who presents the emergency department for evaluation of shortness of breath. The patient reports moderate shortness of breath and production of blood tinged sputum from tracheal tube. The patient was recently diagnosed with pneumonia. Patient is hypoxic upon arrival. That the patient suctioned upon arrival respiratory contacted placed on vent. Patient placed on SIMV. DuoNeb was ordered, NAC ordered Sepsis workup initiated Chest x-ray demonstrates congestive changes and a patchy right infiltrate with some atelectasis at the right base. We'll treat for event/hospital-acquired pneumonia with thank and Zosyn. Patient to be admitted to medicine for further management. <Miguel Patterson - Last Filed: 01/07/18 17:04> Heart Score/ECG Review - ECG Impressions Comment:: 01/07/18 17:04 EKG performed at 1323. Demonstrates sinus rhythm 95 bpm. PA interval 138, QRS 98 , QTC 427. No ST elevations or T-wave inversions. Normal axis. Interpreted by me. <Miguel Patterson - Last Filed: 01/07/18 17:04> Attestations - Attestations Documentation prepared by Arturo Best, acting as medical or surgical instrument maker for Miguel Patterson MD. <Arturo Best - Last Filed: 01/07/18 15:13>
[2018-01-07 13:16] VITALS: BMI 62.4
--- NOTE | 2018-01-07 13:57 | EKG ---
Test Reason : Blood Pressure : / mmHG Vent. Rate : 095 BPM Atrial Rate : 095 BPM P-R Int : 138 ms QRS Dur : 098 ms QT Int : 340 ms P-R-T Axes : 039 001 050 degrees QTc Int : 427 ms NORMAL SINUS RHYTHM INCOMPLETE RIGHT BUNDLE BRANCH BLOCK MINIMAL VOLTAGE CRITERIA FOR LVH, MAY BE NORMAL VARIANT BORDERLINE ECG WHEN COMPARED WITH ECG OF 18-OCT-2017 08:47, INCOMPLETE RIGHT BUNDLE BRANCH BLOCK IS NOW PRESENT Confirmed by BOBBY BARKLEY, MOE ([id number]) on 01/07/2018 1:57:23 PM Referred By: Confirmed By:MOE ROSALES MD
--- NOTE | 2018-01-07 14:01 | PDOC ---
History of Present Illness - General Chief Complaint: Shortness of Breath Stated Complaint: DIFFICULTY BREATHING Time Seen by Provider: 01/07/18 13:09 - History of Present Illness Initial Comments: 52 year old female with PMH of morbid obesity, with COPD, chronic hypercapnia , hypoxic respiratory failure, trach dependent (on vent at night and blow by during the day), and CHF presenting from [facility] for hypoxia with blood tinged sputum. [facility] but her sats remained in the low 80s. EMS was reluctant to increase her FiO2 because of the patient's wishes. On arrival we increased her FiO2 to 100% and her SATs improved dramactically. She states she has had chills, cough, and nausea lately. 01/07/18 14:03 Past History - Past Medical History Allergies/Adverse Reactions: Allergies Allergy/AdvReac Type Severity Reaction Status Date / Time No Known Allergies Allergy Unverified 01/07/18 13:16 Home Medications: Ambulatory Orders Acetaminophen 650 mg PO DAILY 10/18/17 Albuterol 2.5/Ipratropium 0.5 [Duoneb -] 1 neb NEB Q4H 10/18/17 Albuterol Sulfate [Proair Respiclick] 90 mcg IH TID 10/18/17 Aripiprazole 5 mg PO DAILY 10/18/17 Aspirin 81 mg PO DAILY 10/18/17 Budesonide/Formeterol Fumarate [SYMBICORT 160/4.5mcg -] 1 inh PO BID 10/18/17 Cephalexin [Keflex] 500 mg PO DAILY 10/18/17 Chlorhexidine Gluconate 480 ml MM BID 10/18/17 Clotrimazole/Betamet Diprop [Lotrisone Cream (Small Tube)] 1 applic TP BID 10/18 Ergocalciferol (Vitamin D2) [Vitamin D2] 50,000 unit PO WEEKLY 10/18/17 Escitalopram Oxalate [Lexapro -] 20 mg PO DAILY 10/18/17 Escitalopram Oxalate [Lexapro -] 20 mg PO DAILY 10/18/17 Fluconazole 100 mg PO DAILY 10/18/17 Furosemide [Lasix -] 20 mg PO DAILY 10/18/17 Gabapentin 250 mg PO BID 10/18/17 Heparin Sod,Porcine/0.9 % NaCl [Heparin 5,000 Unit/1,000 ml-Ns] 5,000 unit SCJ BID 10/18/17 Hydrocortisone/Pramoxine [Hydrocort-Pramoxine 2.5%-1% cm] 4 gm TP DAILY Insulin Lispro [Humalog] 100 unit SQ ASDIR 10/18/17 Ipratropium 0.02% Nebulizer [Atrovent] 1 neb NEB QID 10/18/17 Lactobacillus Acidophilus [Acidophilus] 1 each PO BID 10/18/17 Levothyroxine [Synthroid -] 25 mcg PO DAILY 10/18/17 Loratadine 10 mg PO DAILY 10/18/17 Mirtazapine 15 mg PO DAILY 10/18/17 Montelukast Na [Singulair -] 10 mg PO HS 10/18/17 Prednisone 5 mg PO DAILY 10/18/17 Prednisone 10 mg PO DAILY 10/18/17 Ranitidine [Zantac -] 300 mg PO ONCE 10/18/17 Trazodone HCl 50 mg PO DAILY 10/18/17 hydrOXYzine HCL [Atarax -] 10 mg PO TID 10/18/17 Cardiac Disorders: (heart failure- 2014) COPD: Yes CHF: Yes Psychiatric Problems: Yes (bipolar) Seizures: Yes Thyroid Disease: Yes - Suicide/Smoking/Psychosocial Hx Smoking Status: No Smoking History: Former smoker Have you smoked in the past 12 months: No Number of Cigarettes Smoked Daily: 5 If you are a former smoker, when did you quit?: 2013 Information on smoking cessation initiated: No 'Breaking Loose' booklet given: 05/11/16 Hx Alcohol Use: No Drug/Substance Use Hx: No Substance Use Type: None Hx Substance Use Treatment: No Review of Systems - Review of Systems Constitutional: Yes: Chills, Weakness. No: Diaphoresis, Fever HEENTM: No: Blurred Vision Respiratory: Yes: Cough, Shortness of Breath, SOB with Exertion, SOB at Rest, Productive cough. No: Wheezing Cardiac (ROS): No: Chest Pain, Irregular Heart Rate ABD/GI: Yes: Nausea. No: Diarrhea, Vomiting : No: Dysuria, Discharge Musculoskeletal: Yes: Muscle Weakness, Joint Stiffness Integumentary: No: Bruising, Erythema, Lesions Neurological: No: Headache, Numbness, Paresthesia *Physical Exam - Vital Signs Last Vital Signs Temp Pulse Resp BP Pulse Ox 99.6 F 91 H 22 122/99 88 L 01/07/18 13:13 01/07/18 13:13 01/07/18 13:13 01/07/18 13:13 01/07/18 13:13 - Physical Exam General Appearance: Yes: Appropriately Dressed, Apparent Distress, Moderate Distress, Obese HEENT: positive: EOMI, MANNY. negative: Normal ENT Inspection (Trached with trach in appropriate place and trach site C/D/I without sign of infection), Normal Voice (able to speak when cough deflated) Neck: positive: Trachea midline (trach site exam per above). negative: Tender Respiratory/Chest: positive: Respiratory Distress. negative: Chest Tender, Lungs Clear, Normal Breath Sounds (course breath soudns bialterally but mroeso on the right side.), Accessory Muscle Use Cardiovascular: positive: Regular Rhythm, Regular Rate Gastrointestinal/Abdominal: positive: Normal Bowel Sounds, Flat, Soft. negative : Tender Musculoskeletal: negative: Normal Inspection (generally weakened), Muscle Spasm Extremity: positive: Normal Capillary Refill, Normal Inspection, Normal Range of Motion. negative: Tender Integumentary: positive: Normal Color, Dry, Warm Neurologic: positive: Fully Oriented, Alert, Normal Mood/Affect ED Treatment Course - LABORATORY CBC & Chemistry Diagram: 01/15/18 06:30 01/15/18 06:30 - Medications Given in the ED: ED Medications Discontinued Medications Generic Name Dose Route Start Last Admin Trade Name Freq PRN Reason Stop Dose Admin Albuterol/Ipratropium 3 amp 01/07/18 13:10 01/07/18 13:26 Duoneb - NEB 01/07/18 13:11 3 amp ONCE ONE Administration Medical Decision Making - Medical Decision Making 52 year old female presenting to the ED with transient hypoxia at her [facility] facility. Vital signs have remained stable here on minimal vent settings. She was eventually observed to be stable for hours on minimal vent settings/ her NH vent settings and requested to be placed on trach collar which she tolerated well prior to being admitted to the floor. Unclear etiology for her reported desaturation at her facility but it may have been due to a mucous plug vs. developing pna. *DC/Admit/Observation/Transfer Diagnosis at time of Disposition: Acute respiratory failure Qualifiers: Respiratory failure complication: hypoxia Qualified Code(s): J96.01 - Acute respiratory failure with hypoxia - Discharge Dispostion Condition at time of disposition: Stable Decision to Admit order: Yes - Referrals - Patient Instructions - Post Discharge Activity
[2018-01-07 14:09] LABS: BASO % 0.4 % (0-2.0); EOS % 0.2 % (0-4.5); HEMATOCRIT 37.6 % (32.4-45.2); HEMOGLOBIN 11.7 GM/dL (10.7-15.3); LYMPH % 7.6 % (8-40); MCH 28.3 pg (25.7-33.7); MCHC 31.1 g/dl (32.0-36.0); MEAN PLT VOLUME 7.3 fl (7.5-11.1); MONO % 2.4 % (3.8-10.2); NEUT % 89.4 % (42.8-82.8); PLATELET COUNT 234 K/MM3 (134-434); RBC 4.13 M/mm3 (3.60-5.2); RDW 13.2 % (11.6-15.6); WHITE BLOOD COUNT 12.4 K/mm3 (4.0-10.0)
[2018-01-07] MEDS ORDERED: ONDANSETRON 4 MG/2 ML VIAL IVPUSH ONE (14:11)
[2018-01-07 14:14] LABS: VENOUS PC02 90.1 mmHg (38-52); VENOUS PH 7.32 (7.32-7.42); VENOUS PO2 37.9 mmHg (28-48)
[2018-01-07] MEDS ORDERED: ONDANSETRON 4 MG/2 ML VIAL ONE (14:14)
[2018-01-07 14:23] LABS: INR 1.1 (0.82-1.09); PROTHROMBIN TIME (PATIENT) 12.4 SEC (9.7-13.0)
[2018-01-07 14:32] LABS: ALBUMIN 3.2 g/dl (3.4-5.0); ALK PHOS 68 U/L (45-117); ANION GAP 3 (8-16); BILIRUBIN,TOTAL 0.5 mg/dL (0.2-1.0); BLOOD UREA NITROGEN 19 mg/dL (7-18); CALCIUM 8.6 mg/dL (8.5-10.1); CHLORIDE 93 mmol/L (98-107); CO2 44 mmol/L (21-32); CREATININE 0.4 mg/dL (0.55-1.02); GLUCOSE,RANDOM 76 mg/dL (74-106); POTASSIUM 4.1 mmol/L (3.5-5.1); SGOT/AST 6 U/L (15-37); SGPT/ALT 26 U/L (12-78); SODIUM 140 mmol/L (136-145); TOT PROT 6.5 g/dl (6.4-8.2)
[2018-01-07] MEDS ORDERED: VANCOMYCIN 1,500 MG in DEXTROSE 5%-WATER - 250 ML IVPB ONE (15:37)
[2018-01-07] MEDS ORDERED: PIPERACILLIN/TAZOB 4.5 GM 4.5 GM in DEXTROSE 5%-WATER 100 ML IVPB ONE (15:38)
[2018-01-07] MEDS ORDERED: methylPREDNISolone NA SUCC 125 MG/2 ML VIAL IVPB ONE (15:40)
[2018-01-07] MEDS ORDERED: VANCOMYCIN 1,500 MG in DEXTROSE 5%-WATER - 500 ML IVPB ONE (15:52)
[2018-01-07] MEDS ORDERED: PIPERACILLIN/TAZOB 4.5 GM 4.5 GM/100 ML BAG IVPB ONE (15:56)
[2018-01-07] MEDS ORDERED: methylPREDNISolone NA SUCC 125 MG/2 ML VIAL ONE (15:56)
[2018-01-07] MEDS: ALBUTEROL SO4 2.5/IPRATROPIUM 0.5 INH SOL 3 ML VIAL.NEB. NEB SCH ×3 (16:58→23:07)
[2018-01-07] MEDS: BUDESONIDE/FORMETEROL FUMARATE 160/4.5 mcg INHALER IH SCH (22:40)
[2018-01-07] MEDS: LACTOBACILLUS ACIDOPHILUS 1 TABLET PO SCH (22:41)
[2018-01-07] MEDS: hydrOXYzine HCL 10 MG TABLET PO SCH (22:41)
[2018-01-07] MEDS: MONTELUKAST NA 10 MG TABLET PO SCH (22:41)
[2018-01-07] MEDS: GABAPENTIN 250 MG/5 ML ORAL SOLUTION, 470 ML BOTTLE PO SCH (22:41)
[2018-01-07] MEDS: HEPARIN NA (PORCINE) 5,000 UNITS/ML 1ML VIAL SQ SCH (22:42)
[2018-01-07] MEDS ORDERED: traZODone HCL 50 MG TABLET (FP) PO SCH (22:53)
[2018-01-07] MEDS: traZODone HCL 50 MG TABLET (FP) PO SCH (23:00)
[2018-01-08] MEDS: hydrOXYzine HCL 10 MG TABLET PO SCH ×3 (06:06→22:22)
[2018-01-08] MEDS: LEVOTHYROXINE NA 25 MCG TABLET (FP) PO SCH (06:06)
[2018-01-08] MEDS: ALBUTEROL SO4 2.5/IPRATROPIUM 0.5 INH SOL 3 ML VIAL.NEB. NEB SCH ×5 (06:30→22:00)
--- NOTE | 2018-01-08 08:43 | PN ---
Progress Note (short form) - Note Progress Note: ID Patient describes intermittent bleeding from the trach for some time Sesophie has recently een in [facility] for 12 days released and readmitted for 4 days and got discharged 2 days ago. Now bleeding from trach secretions again Low grade temp Chest xray witah right infiltrated ? old vs new Microbiology 10/04/17 14:34 Sputum - Endotrachea Suction/Ventilator Gram Stain - Final 10/04/17 14:34 Sputum - Endotrachea Suction/Ventilator Sputum Culture - Final Escherichia Coli 10/02/17 02:22 Blood - Peripheral Venous Blood Culture - Final NO GROWTH AFTER 5 DAYS INCUBATION 10/02/17 02:22 Blood - Peripheral Venous Blood Culture - Final NO GROWTH AFTER 5 DAYS INCUBATION Plan [facility] Pulmonary consult Consider bronchosccopy Chest CT CRP ESR Vanco and Cefepime Bryan BARKLEY Problem List - Problems (1) Hemoptysis Code(s): R04.2 - HEMOPTYSIS (2) Acute respiratory failure Code(s): J96.00 - ACUTE RESPIRATORY FAILURE, UNSP W HYPOXIA OR HYPERCAPNIA (3) COPD exacerbation Code(s): J44.1 - CHRONIC OBSTRUCTIVE PULMONARY DISEASE W (ACUTE) EXACERBATION (4) Morbid obesity Code(s): E66.01 - MORBID (SEVERE) OBESITY DUE TO EXCESS CALORIES (5) Tracheostomy dependence Code(s): Z93.0 - TRACHEOSTOMY STATUS
--- NOTE | 2018-01-08 09:17 | CONS ---
DATE OF CONSULTATION: DATE OF DICTATION: 01/08/2018 This is a 52-year-old female sent from the [facility] for evaluation of severe shortness of breath and hypoxemia. Blood-tinged sputum from a tracheostomy tube was also noted. The patient is a pen[facility]iary resident, and according to her history, she has had 2 recent admissions to [facility] for treatment of respiratory failure and pneumonia. She spent 12 days in Health system, was discharged, and then spent another 4 days in the hospital, noting that she was only discharging from her second admission 2 days prior to her current admission. In the penitentiary she became short of breath and was noted to be hypoxic when she was evaluated here. She had low-grade fever but denied any chills. She notes blood-tinged sputum from her tracheostomy, noting that this has been intermittent and she does not know why this is occurring. It has been occurring on and off over several weeks. PAST MEDICAL HISTORY: Includes CHF, chronic hypercapnia, chronic ventilatory dependency with tracheostomy, severe COPD, bipolar and seizure disorder. CURRENT MEDICATIONS: Include Symbicort, gabapentin, Lexapro, Remeron, Desyrel, Bacid, Abilify, Singulair, Lasix, aspirin, Synthroid. ALLERGIES: None known. SOCIAL HISTORY: detention resident. No history of substance abuse. Former smoker. HIV status unknown. FAMILY HISTORY: Reviewed and noncontributory. REVIEW OF SYSTEMS: Respiratory: Chronic respiratory failure, vent dependent with tracheostomy. Hemoptysis as noted. Cardiac: No chest pain, palpitations, syncope, murmur. Gastrointestinal: No abdominal pain, nausea, vomiting, diarrhea. Genitourinary: No dysuria, hematuria, urinary frequency. PHYSICAL EXAMINATION: General: Physical exam revealed a pleasant but morbidly obese woman, 320 pounds. Alert and in no acute distress. Vital Signs: Temperature 98.1, pulse 88, blood pressure 133/73, respirations 20. T-max 99.8. Neck: Tracheostomy in situ. Lungs: With diminished breath sounds bilaterally, scattered rhonchi. Heart: S1, S2, distant heart sounds, no audible murmur. Abdomen: Obese, soft, nontender. Normoactive bowel sounds. No localized tenderness, guarding, rebound. Extremities: No clubbing, cyanosis, or edema. LABORATORY: The white count was 12.4, hemoglobin 11.7, platelets of 234, 90% polys, 7.6 lymphs, 2 monos. INR 1.1. BUN 19, creatinine 0.4. Liver enzymes within normal limit. Chest x-ray was reviewed and shows a cardiomegaly, unfolded aorta, tracheostomy with congestion and patchy right-sided infiltrate. ASSESSMENT: A 52-year-old female with recent history of 2 admissions to [facility] for treatment of pneumonia and ventilatory failure. Notes intermittent blood-tinged sputum from her tracheostomy which has been going on for several weeks, etiology unclear. Chest x-ray shows a persistent right-sided infiltrate, and this is unclear as to whether or not this is new or old. Would empirically treat her at this point for hospital-associated pneumonia with a combination of vancomycin and cefepime based on body weight. Obtain a CRP, ESR, pulmonary consultation, and consideration of need for bronchoscopy. SHANITA NEW M.D. [id number]
[2018-01-08] MEDS ORDERED: VANCOMYCIN 2,000 MG in DEXTROSE 5%-WATER - 500 ML IVPB SCH (09:45)
[2018-01-08] MEDS: ASPIRIN 81 MG CHEWABLE TABLETS PO SCH (10:01)
[2018-01-08] MEDS: ESCITALOPRAM OXALATE 20 MG TABLET (FP) PO SCH (10:02)
[2018-01-08] MEDS: FUROSEMIDE 20 MG TABLET (FP) PO SCH (10:02)
[2018-01-08] MEDS: ARIPiprazole 5 MG TABLET (FP) PO SCH (10:02)
[2018-01-08] MEDS: HEPARIN NA (PORCINE) 5,000 UNITS/ML 1ML VIAL SQ SCH (10:02)
[2018-01-08] MEDS: LACTOBACILLUS ACIDOPHILUS 1 TABLET PO SCH ×2 (10:02→22:22)
[2018-01-08] MEDS: BUDESONIDE/FORMETEROL FUMARATE 160/4.5 mcg INHALER IH SCH ×2 (10:03→22:22)
[2018-01-08] MEDS: GABAPENTIN 250 MG/5 ML ORAL SOLUTION, 470 ML BOTTLE PO SCH ×2 (10:04→22:22)
[2018-01-08] MEDS: ACETAMINOPHEN 325 MG TABLET (FP) PO SCH (10:06)
[2018-01-08 10:59] LABS: BASO % 0.1 % (0-2.0); EOS % 0.2 % (0-4.5); HEMATOCRIT 36.6 % (32.4-45.2); HEMOGLOBIN 11.8 GM/dL (10.7-15.3); LYMPH % 9.8 % (8-40); MCH 29.5 pg (25.7-33.7); MCHC 32.3 g/dl (32.0-36.0); MEAN CELL VOLUME 91.4 fl (80-96); MEAN PLT VOLUME 7.3 fl (7.5-11.1); MONO % 3.7 % (3.8-10.2); NEUT % 86.2 % (42.8-82.8); PLATELET COUNT 204 K/MM3 (134-434); RDW 12.8 % (11.6-15.6)
[2018-01-08] MEDS: CEFEPIME 2 GM in DEXTROSE 5%-WATER 100 ML IVPB SCH ×2 (11:18→17:27)
--- NOTE | 2018-01-08 11:42 | HP ---
Admitting History and Physical - Primary Care Physician PCP: Josie Rojo - Admission History of Present Illness: patient seen and examined on the floor emergency room records reviewed Per ER records-- 52 year old female with PMH of morbid obesity, with COPD, chronic hypercapnia, hypoxic respiratory failure, trach dependent (on vent at night and blow by during the day), and CHF presenting from [facility] for hypoxia with blood tinged sputum. Patient was suctioned at half-way but her sats remained in the low 80s. EMS was reluctant to increase her FiO2 because of the patient's wishes. On arrival we increased her FiO2 to 100% and her SATs improved dramactically patient given broad-spectrum IV antibiotics for possible pneumonia Patient seen and examined Comfortable Feels better Chart reviewed History Source: Patient, Medical Record - Past Medical History Pulmonary: Yes: COPD Gastrointestinal: Yes: Other (colon polyps) Heme/Onc: Yes: Anemia Psych: Yes: Bipolar - Smoking History Smoking history: Former smoker Have you smoked in the past 12 months: No Aproximately how many cigarettes per day: 5 If you are a former smoker, when did you quit?: 2014 - Alcohol/Substance Use Hx Alcohol Use: No History of Substance Use: reports: Marijuana - Social History History of Recent Travel: No Home Medications - Allergies Allergies/Adverse Reactions: Allergies Allergy/AdvReac Type Severity Reaction Status Date / Time No Known Allergies Allergy Unverified 01/07/18 13:16 - Home Medications Home Medications: Ambulatory Orders Acetaminophen 650 mg PO DAILY 10/18/17 Albuterol 2.5/Ipratropium 0.5 [Duoneb -] 1 neb NEB Q4H 10/18/17 Albuterol Sulfate [Proair Respiclick] 90 mcg IH TID 10/18/17 Aripiprazole 5 mg PO DAILY 10/18/17 Aspirin 81 mg PO DAILY 10/18/17 Budesonide/Formeterol Fumarate [SYMBICORT 160/4.5mcg -] 1 inh PO BID 10/18/17 Cephalexin [Keflex] 500 mg PO DAILY 10/18/17 Chlorhexidine Gluconate 480 ml MM BID 10/18/17 Clotrimazole/Betamet Diprop [Lotrisone Cream (Small Tube)] 1 applic TP BID 10/18 Ergocalciferol (Vitamin D2) [Vitamin D2] 50,000 unit PO WEEKLY 10/18/17 Escitalopram Oxalate [Lexapro -] 20 mg PO DAILY 10/18/17 Escitalopram Oxalate [Lexapro -] 20 mg PO DAILY 10/18/17 Fluconazole 100 mg PO DAILY 10/18/17 Furosemide [Lasix -] 20 mg PO DAILY 10/18/17 Gabapentin 250 mg PO BID 10/18/17 Heparin Sod,Porcine/0.9 % NaCl [Heparin 5,000 Unit/1,000 ml-Ns] 5,000 unit SCJ BID 10/18/17 Hydrocortisone/Pramoxine [Hydrocort-Pramoxine 2.5%-1% cm] 4 gm TP DAILY Insulin Lispro [Humalog] 100 unit SQ ASDIR 10/18/17 Ipratropium 0.02% Nebulizer [Atrovent] 1 neb NEB QID 10/18/17 Lactobacillus Acidophilus [Acidophilus] 1 each PO BID 10/18/17 Levothyroxine [Synthroid -] 25 mcg PO DAILY 10/18/17 Loratadine 10 mg PO DAILY 10/18/17 Mirtazapine 15 mg PO DAILY 10/18/17 Montelukast Na [Singulair -] 10 mg PO HS 10/18/17 Prednisone 5 mg PO DAILY 10/18/17 Prednisone 10 mg PO DAILY 10/18/17 Ranitidine [Zantac -] 300 mg PO ONCE 10/18/17 Trazodone HCl 50 mg PO DAILY 10/18/17 hydrOXYzine HCL [Atarax -] 10 mg PO TID 10/18/17 Review of Systems Findings/Remarks: see [facility] Physical Examination Vital Signs: Vital Signs Temperature 97.6 F 01/08/18 06:00 Pulse Rate 72 01/08/18 06:00 Respiratory Rate 20 01/08/18 06:00 Blood Pressure 138/65 01/08/18 06:00 O2 Sat by Pulse Oximetry (%) 98 01/08/18 00:26 Constitutional: Yes: No Distress, Calm Eyes: Yes: Conjunctiva Clear Neck: Yes: Supple, Other (status post tracheostomy) Cardiovascular: Yes: Regular Rate and Rhythm Respiratory: Yes: Diminished Gastrointestinal: Yes: Soft Edema: Yes Edema: LLE: 1+, RLE: 1+ Neurological: Yes: Alert Labs: CBC, BMP 01/08/18 10:25 Imaging - Results Chest X-ray: Report Reviewed EKG: Report Reviewed Problem List - Problems (1) Acute on chronic respiratory failure with hypoxia and hypercapnia Code(s): J96.21 - ACUTE AND CHRONIC RESPIRATORY FAILURE WITH HYPOXIA; J96.22 - ACUTE AND CHRONIC RESPIRATORY FAILURE WITH HYPERCAPNIA (2) Hemoptysis Code(s): R04.2 - HEMOPTYSIS (3) Pneumonia Code(s): J18.9 - PNEUMONIA, UNSPECIFIED ORGANISM (4) Tracheostomy dependence Code(s): Z93.0 - TRACHEOSTOMY STATUS (5) Morbid obesity Code(s): E66.01 - MORBID (SEVERE) OBESITY DUE TO EXCESS CALORIES Assessment/Plan continue antibiotics and continue other medications Medications reviewed Pulmonary to evaluate Discussed with Dr. Antunez Will consult ENT also Will discontinue heparin--- due to bleeding from the tracheostomy site SCD stockings for the DVT prophylaxis Discussed with nursing staff also Will follow
--- NOTE | 2018-01-08 12:04 | PN ---
Progress Note (short form) - Note Progress Note: PULMONARY CONSULTATION DICTATED 01/08/18 IMP ACUTE ON CHRONIC HYPOXEMIC/HYPERCAPNEIC RESPIRATORY FAILURE TRACH/VENT DEPENDENT ADVANCED COPD PNEUMONIA HEMOPTYSIS CHF SEIZURES BIPOLAR PLAN IV ABX PER ID INHALED BRONCHODILATORS CHEST CT ENT EVALUATION QUANTIFY HEMOPTYSIS ABG VENT SUPPORT AT NIGHT AND PRN FOR INCREASED RESPIRATORY DISTRESS CULTURES F/U CHEST X-RAYS DR STEELE Problem List - Problems (1) Acute on chronic respiratory failure with hypoxia and hypercapnia Code(s): J96.21 - ACUTE AND CHRONIC RESPIRATORY FAILURE WITH HYPOXIA; J96.22 - ACUTE AND CHRONIC RESPIRATORY FAILURE WITH HYPERCAPNIA (2) Hemoptysis Code(s): R04.2 - HEMOPTYSIS (3) Tracheostomy dependence Code(s): Z93.0 - TRACHEOSTOMY STATUS (4) CHF (congestive heart failure) Code(s): I50.9 - HEART FAILURE, UNSPECIFIED (5) Depression Code(s): F32.9 - MAJOR DEPRESSIVE DISORDER, SINGLE EPISODE, UNSPECIFIED (6) Respiratory failure Code(s): J96.90 - RESPIRATORY FAILURE, UNSP, UNSP W HYPOXIA OR HYPERCAPNIA Qualifiers: Chronicity: acute on chronic (7) Pneumonia Code(s): J18.9 - PNEUMONIA, UNSPECIFIED ORGANISM
[2018-01-08] MEDS: VANCOMYCIN 2,000 MG in DEXTROSE 5%-WATER - 500 ML IVPB SCH (12:14)
[2018-01-08 12:24] LABS: CHLORIDE 97 mmol/L (98-107); SODIUM 142 mmol/L (136-145)
[2018-01-08 12:52] LABS: ALK PHOS 66 U/L (45-117); ANION GAP 5 (8-16); BILIRUBIN,TOTAL 0.6 mg/dL (0.2-1.0); BLOOD UREA NITROGEN 16 mg/dL (7-18); CALCIUM 8.5 mg/dL (8.5-10.1); CO2 40 mmol/L (21-32); CREATININE 0.3 mg/dL (0.55-1.02); GLUCOSE,RANDOM 57 mg/dL (74-106); SGOT/AST 8 U/L (15-37); SGPT/ALT 25 U/L (12-78); TOT PROT 6.4 g/dl (6.4-8.2)
--- NOTE | 2018-01-08 13:27 | CONS ---
DATE OF CONSULTATION: 01/08/2018 REFERRING PHYSICIAN: Josie Rojo MD HISTORY OF PRESENT ILLNESS: The patient is a 52-year-old white female known to me from previous hospitalization with past medical history of chronic respiratory failure on nocturnal vent support as well as status post tracheostomy, trach collar during the day, advanced COPD, history of hypoxic respiratory failure, bipolar, seizures, pneumonia, recently hospitalized at [facility] secondary to pneumonia, who was admitted to [facility] on January 07, 2018, from [facility] secondary to increasing respiratory distress. Patient apparently at the long term was having moderate respiratory distress associated with production of blood-tinged sputum. EMS was called. The patient was brought to the emergency room. In the ER, she was noted to have quite a mid-lung field consolidation. She was admitted to the floor. She was started on broad spectrum antibiotics per Infectious Disease. The patient has history of tobacco use, quit a few years ago. There is no apparent history of occupational exposure to chemical fumes. As stated before, she is currently on nocturnal vent support as well as trach collar during the day with intermittent vent support if she develops increasing respiratory distress. Patient denied any fevers or chills. She denies any nausea, vomiting, or diaphoresis. PAST MEDICAL HISTORY: Again includes CHF, chronic hypercapnic hypoxemic respiratory failure, status post tracheostomy, COPD, seizures, bipolar disorder, and pneumonia. REVIEW OF SYSTEMS: No chest pain. No palpitations. Positive tracheal secretions. No shortness of breath. No fever. No chills. Positive for hemoptysis. No abdominal pain. CURRENT MEDICATIONS: Include Symbicort, Tylenol, cefepime, vancomycin, Neurontin, Lexapro, Remeron, Desyrel, Bacid, Abilify, Atarax, Duo-Neb, Singulair, Lasix, aspirin, Synthroid. PHYSICAL EXAMINATION: General: The patient is a well-developed, well-nourished female, awake, alert, currently in no acute distress. Vital signs: She is currently afebrile, blood pressure 138/65, respiratory rate 20, O2 saturation is 98% on trach collar, 60% FiO2. HEENT: Head is normocephalic atraumatic. Neck: Supple. Heart: Regular, S1, S2. Chest: Scattered bilateral rhonchi. Abdomen: Soft. Bowel sounds positive. Extremities: Trace bilateral lower extremity edema. LABORATORIES: WBC is 10.0, hemoglobin 11.8, hematocrit 36.6, platelet count of 204,000. INR is 1.10. Venous blood gas pH 7.32, pCO2 of 90, pO2 of 37, bicarbonate of 44. BUN 19, creatinine 0.8. BNP 161. Chest x-ray reveals might be lung field consolidation. IMPRESSION: Acute on chronic hypoxemic hypercapnic respiratory failure secondary to 1. Likely right mid-lung pneumonia 2. Advanced chronic obstructive pulmonary disease on nocturnal vent support as well as trach-dependent. 3. Bipolar. 4. Congestive heart failure. 5. Tracheal bleeding, possible secondary to pneumonia. Rule out possible local irritation secondary to suctioning. 6. Respiratory distress, 7. Seizure disorder. PLAN: Broad spectrum antibiotics per Infectious Disease, inhaled bronchodilators, O2 via trach collar as well as vent support at night as well as p.r.n., obtain cultures, ENT evaluation, CT scan of the chest, DVT prophylaxis. LORA STEELE M.D. [id number] MTDD
[2018-01-08 14:46] LABS: ARTERIAL BLD GAS O2 SATURATION 94.8 % (90-98.9); ARTERIAL BLOOD GAS PO2 79.7 mmHg (80-100)
[2018-01-08 14:52] LABS: ARTERIAL BLOOD GAS pH 7.22 (7.35-7.45)
[2018-01-08 14:53] LABS: ALLENS TEST POSITIVE
[2018-01-08] MEDS ORDERED: PT OWN MED DRAWER 7, Y5N ONE (16:22)
--- NOTE | 2018-01-08 16:40 | CON.ENT ---
Consult Consult Specialty:: ENT Referred by:: Dr Rojo Reason for Consultation:: Hemoptysis - History of Present Illness Chief Complaint: Respiratory difficulty with bloody mucus History of Present Illness: 52 yo female with Chronic lung disease, s/p tracheostomy at [facility] 5 months ago, who was admitted with increasing respiratory difficulty and blood-tinged mucus from [place]. Upon evaluation in the ER, lung infiltrates were noted and she was placed on antibiotics. Nurse notes blood tinged sputum, more so on deeper suctioning. Pt also scheduled for CT of Chest. - History Source History Provided By: Patient, Medical Record Limitations to Obtaining History: Clinical Condition - Past Medical History Pulmonary: Yes: COPD Gastrointestinal: Yes: Other (colon polyps) Psych: Yes: Bipolar - Past Surgical History Additional Surgical History: Tracheostomy - Alcohol/Substance Use Hx Alcohol Use: No History of Substance Use: reports: Marijuana - Smoking History Smoking history: Former smoker Have you smoked in the past 12 months: No Aproximately how many cigarettes per day: 5 If you are a former smoker, when did you quit?: 2013 - Social History Usual Living Arrangement: Residential History of Recent Travel: No Home Medications - Allergies Allergies/Adverse Reactions: Allergies Allergy/AdvReac Type Severity Reaction Status Date / Time No Known Allergies Allergy Unverified 01/07/18 13:16 - Home Medications Home Medications: Ambulatory Orders Acetaminophen 650 mg PO DAILY 10/18/17 Albuterol 2.5/Ipratropium 0.5 [Duoneb -] 1 neb NEB Q4H 10/18/17 Albuterol Sulfate [Proair Respiclick] 90 mcg IH TID 10/18/17 Aripiprazole 5 mg PO DAILY 10/18/17 Aspirin 81 mg PO DAILY 10/18/17 Budesonide/Formeterol Fumarate [SYMBICORT 160/4.5mcg -] 1 inh PO BID 10/18/17 Cephalexin [Keflex] 500 mg PO DAILY 10/18/17 Chlorhexidine Gluconate 480 ml MM BID 10/18/17 Clotrimazole/Betamet Diprop [Lotrisone Cream (Small Tube)] 1 applic TP BID 10/18 Ergocalciferol (Vitamin D2) [Vitamin D2] 50,000 unit PO WEEKLY 10/18/17 Escitalopram Oxalate [Lexapro -] 20 mg PO DAILY 10/18/17 Escitalopram Oxalate [Lexapro -] 20 mg PO DAILY 10/18/17 Fluconazole 100 mg PO DAILY 10/18/17 Furosemide [Lasix -] 20 mg PO DAILY 10/18/17 Gabapentin 250 mg PO BID 10/18/17 Heparin Sod,Porcine/0.9 % NaCl [Heparin 5,000 Unit/1,000 ml-Ns] 5,000 unit SCJ BID 10/18/17 Hydrocortisone/Pramoxine [Hydrocort-Pramoxine 2.5%-1% cm] 4 gm TP DAILY Insulin Lispro [Humalog] 100 unit SQ ASDIR 10/18/17 Ipratropium 0.02% Nebulizer [Atrovent] 1 neb NEB QID 10/18/17 Lactobacillus Acidophilus [Acidophilus] 1 each PO BID 10/18/17 Levothyroxine [Synthroid -] 25 mcg PO DAILY 10/18/17 Loratadine 10 mg PO DAILY 10/18/17 Mirtazapine 15 mg PO DAILY 10/18/17 Montelukast Na [Singulair -] 10 mg PO HS 10/18/17 Prednisone 5 mg PO DAILY 10/18/17 Prednisone 10 mg PO DAILY 10/18/17 Ranitidine [Zantac -] 300 mg PO ONCE 10/18/17 Trazodone HCl 50 mg PO DAILY 10/18/17 hydrOXYzine HCL [Atarax -] 10 mg PO TID 10/18/17 Review of Systems - Review of Systems HENT: reports: No Symptoms Cardiovascular: reports: No Symptoms, Shortness of Breath Respiratory: reports: Cough, Hemoptysis, SOB Physical Exam-ENT Vital Signs: Vital Signs Temperature 98.9 F 01/08/18 14:43 Pulse Rate 80 01/08/18 16:16 Respiratory Rate 15 01/08/18 16:18 Blood Pressure 107/57 01/08/18 14:43 O2 Sat by Pulse Oximetry (%) 95 01/08/18 16:16 Constitutional: Yes: Obese Face: Yes: Symmetrical Eyes: Yes: WNL Problem List - Problems (1) Acute on chronic respiratory failure with hypoxia and hypercapnia Assessment/Plan: Respiratory failure/pneumonia- tracheostomy tube patent. Continue treatment as per ID and Pulmonary Code(s): J96.21 - ACUTE AND CHRONIC RESPIRATORY FAILURE WITH HYPOXIA; J96.22 - ACUTE AND CHRONIC RESPIRATORY FAILURE WITH HYPERCAPNIA (2) Hemoptysis Assessment/Plan: Bloody sputum- no tacheal or upper mainstem bronchi pathology noted. No granulation or active bleeding identified. Awaiting CT scan of chest, consider lower bronchoscopy. Code(s): R04.2 - HEMOPTYSIS Procedure Note Procedure: TRACHEOBRONCHOSCOPY- After obtaining verbal consent from the patient, ventilator attachment removed from trach tube and flexible laryngoscope was passed via the trach tube. No granulation tissue was noted at end of tube, no active bleeding or discolored mucus seen. Trachea up to sheeba appeared normal, upper left and right main stem bronchi patent and clear. Pt tolerated procedure well. Results discussed with RN.
[2018-01-08] MEDS ORDERED: traZODone HCL 50 MG TABLET (FP) PO SCH (22:00)
[2018-01-08] MEDS: traZODone HCL 50 MG TABLET (FP) PO SCH (22:22)
[2018-01-08] MEDS: MONTELUKAST NA 10 MG TABLET PO SCH (22:22)
[2018-01-08] MEDS: MIRTAZAPINE 15 MG TABLET (FP) PO SCH (22:22)
[2018-01-09] MEDS: VANCOMYCIN 2,000 MG in DEXTROSE 5%-WATER - 500 ML IVPB SCH ×3 (00:09→23:40)
[2018-01-09] MEDS: CEFEPIME 2 GM in DEXTROSE 5%-WATER 100 ML IVPB SCH ×3 (02:29→17:09)
--- NOTE | 2018-01-09 03:57 | HOSP ---
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 Who presented to the ED from [facility] for hypoxia with blood tinged sputum. Admitted for Acute on Chronic Hypoxia with Hypercapnia, Hemoptysis. Pneumonia. P: Stat EKG Stat Troponin I Morphine Sulfate 2mg IV x1 now Addendum- attempted venipuncture x1 for Trop I, unsuccessful, after RNs tried. Will have lab draw in am Cardiovascular: Yes: Chest Pain (B/L under breast pain) Physical Examination Vital Signs: Vital Signs Temperature 99.2 F 01/08/18 22:20 Pulse Rate 70 01/09/18 03:42 Respiratory Rate 20 01/09/18 03:42 Blood Pressure 122/68 01/09/18 03:42 O2 Sat by Pulse Oximetry (%) 95 01/08/18 21:00 Constitutional: Yes: Well Nourished, No Distress, Calm, Obese Eyes: Yes: WNL, Conjunctiva Clear, EOM Intact, PERRL HENT: Yes: WNL, Atraumatic, Normocephalic Neck: Yes: Supple, Other (trach- vent) Cardiovascular: Yes: Regular Rate and Rhythm, S1, S2 Respiratory: Yes: Diminished, Other (vent with trach collar) Gastrointestinal: Yes: Normal Bowel Sounds, Soft, Abdomen, Obese Musculoskeletal: Yes: WNL Extremities: Yes: WNL, Internal Rotation Edema: LUE: 1+, RUE: 1+, LLE: 1+, RLE: 1+ Peripheral Pulses WNL: Yes Neurological: Yes: WNL, Alert, Oriented ...Motor Strength: WNL Psychiatric: Yes: WNL, Alert, Oriented Labs: CBC, BMP 01/08/18 10:25 01/08/18 10:25 Laboratory Results - last 24 hr 01/08/18 01/08/18 01/08/18 10:25 10:25 10:25 WBC 10.0 RBC 4.00 Hgb 11.8 Hct 36.6 MCV 91.4 MCH 29.5 MCHC 32.3 RDW 12.8 Plt Count 204 MPV 7.3 L Absolute Neuts (auto) 8.6 Neutrophils % 86.2 H Lymphocytes % 9.8 D Monocytes % 3.7 L Eosinophils % 0.2 Basophils % 0.1 Nucleated RBC % 0 Puncture Site ABG pH ABG pCO2 at Pt Temp ABG pO2 at Pt Temp ABG HCO3 ABG O2 Sat (Measured) ABG O2 Content ABG Base Excess Harris Test O2 Delivery Device Oxygen Flow Rate PEEP Sodium 142 Potassium 4.0 Chloride 97 L Carbon Dioxide 40 H Anion Gap 5 L BUN 16 Creatinine 0.3 L Creat Clearance w eGFR > 60 Random Glucose 57 L Calcium 8.5 Total Bilirubin 0.6 AST 8 L ALT 25 Alkaline Phosphatase 66 C-Reactive Protein 14.6 H Cancelled Total Protein 6.4 Albumin 3.0 L 01/08/18 14:40 WBC RBC Hgb Hct MCV MCH MCHC RDW Plt Count MPV Absolute Neuts (auto) Neutrophils % Lymphocytes % Monocytes % Eosinophils % Basophils % Nucleated RBC % Puncture Site Left radial ABG pH 7.22 L* D ABG pCO2 at Pt Temp 110.0 H* D ABG pO2 at Pt Temp 79.7 L ABG HCO3 43.0 H* ABG O2 Sat (Measured) 94.8 ABG O2 Content 14.1 L ABG Base Excess 12.0 H Harris Test Positive O2 Delivery Device Trach collar Oxygen Flow Rate 60% PEEP 0.0 Sodium Potassium Chloride Carbon Dioxide Anion Gap BUN Creatinine Creat Clearance w eGFR Random Glucose Calcium Total Bilirubin AST ALT Alkaline Phosphatase C-Reactive Protein Total Protein Albumin Microbiology 01/07/18 13:51 Blood Culture - Preliminary Blood - Peripheral Venous NO GROWTH OBTAINED AFTER 24 HOURS, INCUBATION TO CONTINUE FOR 4 DAYS. 01/07/18 13:51 Blood Culture - Preliminary Blood - Peripheral Venous NO GROWTH OBTAINED AFTER 24 HOURS, INCUBATION TO CONTINUE FOR 4 DAYS. Intake & Output 01/06/18 01/07/18 01/08/18 01/09/18 23:59 23:59 23:59 23:59 Intake Total 200 2170 Balance 200 2170 Weight 145.15 kg Current Medications Generic Name Dose Route Start Last Admin Trade Name Freq PRN Reason Stop Dose Admin Acetaminophen 650 mg 01/08/18 10:00 01/08/18 10:06 Tylenol - PO Not Given DAILY NOELLE Albuterol/Ipratropium 1 amp 01/07/18 16:15 01/08/18 22:00 Duoneb - NEB 1 amp Q4HWA NOELLE Administration Aripiprazole 5 mg 01/08/18 10:00 01/08/18 10:02 Abilify PO 5 mg DAILY NOELLE Administration Aspirin 81 mg 01/08/18 10:00 01/08/18 10:01 Asa - PO 81 mg DAILY NOELLE Administration Budesonide/Formoterol Fumarate 1 puff 01/07/18 22:00 01/08/18 22:22 Symbicort 160/4.5mcg - IH 1 puff BID NOELLE Administration Escitalopram Oxalate 20 mg 01/08/18 10:00 01/08/18 10:02 Lexapro - PO 20 mg DAILY NOELLE Administration Furosemide 20 mg 01/08/18 10:00 01/08/18 10:02 Lasix - PO 20 mg DAILY NOELLE Administration Gabapentin 250 mg 01/07/18 22:00 01/08/18 22:22 Neurontin Oral Liquid - PO 250 mg BID NOELLE Administration Hydroxyzine HCl 10 mg 01/07/18 22:00 01/08/18 22:22 Atarax - PO 10 mg TID NOELLE Administration Cefepime HCl 2 gm/ Dextrose 100 mls @ 200 mls/hr 01/08/18 10:00 01/09/18 02: 29 IVPB 200 mls/hr Q8H-IV NOELLE Administration Protocol Vancomycin HCl 2,000 mg/ 500 mls @ 250 mls/hr 01/08/18 12:00 01/09/18 00:09 Dextrose IVPB 250 mls/hr Q12H NOELLE Administration Protocol Lactobacillus Acidophilus 1 tab 01/07/18 22:00 01/08/18 22:22 Bacid - PO 1 tab BID NOELLE Administration Levothyroxine Sodium 25 mcg 01/08/18 07:00 01/08/18 06:06 Synthroid - PO 25 mcg DAILY@0700 NOELLE Administration Mirtazapine 15 mg 01/08/18 22:00 01/08/18 22:22 Remeron - PO 15 mg HS NOELLE Administration Montelukast Sodium 10 mg 01/07/18 22:00 01/08/18 22:22 Singulair - PO 10 mg HS NOELLE Administration Trazodone HCl 50 mg 01/07/18 23:00 01/08/18 22:22 Desyrel - PO 50 mg HS NOELLE Administration
[2018-01-09] MEDS ORDERED: MORPHINE SULFATE 2 MG/ML VIAL IVPUSH ONE (04:23)
[2018-01-09] MEDS: hydrOXYzine HCL 10 MG TABLET PO SCH ×3 (06:23→22:07)
[2018-01-09] MEDS: LEVOTHYROXINE NA 25 MCG TABLET (FP) PO SCH (06:23)
[2018-01-09] MEDS: ALBUTEROL SO4 2.5/IPRATROPIUM 0.5 INH SOL 3 ML VIAL.NEB. NEB SCH ×5 (06:40→23:50)
[2018-01-09] MEDS: BUDESONIDE/FORMETEROL FUMARATE 160/4.5 mcg INHALER IH SCH ×2 (09:22→23:39)
[2018-01-09] MEDS: ACETAMINOPHEN 325 MG TABLET (FP) PO SCH (09:23)
[2018-01-09] MEDS: ESCITALOPRAM OXALATE 20 MG TABLET (FP) PO SCH (09:25)
[2018-01-09] MEDS: ARIPiprazole 5 MG TABLET (FP) PO SCH (09:25)
[2018-01-09] MEDS: LACTOBACILLUS ACIDOPHILUS 1 TABLET PO SCH ×2 (09:25→22:08)
[2018-01-09] MEDS: FUROSEMIDE 20 MG TABLET (FP) PO SCH (09:25)
--- NOTE | 2018-01-09 09:25 | PN ---
Progress Note, Physician Chief Complaint: ID Vancomycin and Cefepime day 1 Rx Comfortable Afebrile - Current Medication List Current Medications: Active Medications Acetaminophen (Tylenol -) 650 mg PO DAILY [facility] Last Admin: 01/08/18 10:06 Dose: Not Given Albuterol/Ipratropium (Duoneb -) 1 amp NEB Q4HWA [facility] Last Admin: 01/09/18 06:40 Dose: 1 amp Aripiprazole (Abilify) 5 mg PO DAILY [facility] Last Admin: 01/08/18 10:02 Dose: 5 mg Aspirin (Asa -) 81 mg PO DAILY [facility] Last Admin: 01/08/18 10:01 Dose: 81 mg Budesonide/Formoterol Fumarate (Symbicort 160/4.5mcg -) 1 puff IH BID [facility] Last Admin: 01/08/18 22:22 Dose: 1 puff Escitalopram Oxalate (Lexapro -) 20 mg PO DAILY [facility] Last Admin: 01/08/18 10:02 Dose: 20 mg Furosemide (Lasix -) 20 mg PO DAILY [facility] Last Admin: 01/08/18 10:02 Dose: 20 mg Gabapentin (Neurontin Oral Liquid -) 250 mg PO BID [facility] Last Admin: 01/08/18 22:22 Dose: 250 mg Hydroxyzine HCl (Atarax -) 10 mg PO TID [facility] Last Admin: 01/09/18 06:23 Dose: 10 mg Cefepime HCl 2 gm/ Dextrose 100 mls @ 200 mls/hr IVPB Q8H-IV [facility]; Protocol Last Admin: 01/09/18 02:29 Dose: 200 mls/hr Vancomycin HCl 2,000 mg/ (Dextrose) 500 mls @ 250 mls/hr IVPB Q12H [facility]; Protocol Last Admin: 01/09/18 00:09 Dose: 250 mls/hr Lactobacillus Acidophilus (Bacid -) 1 tab PO BID [facility] Last Admin: 01/08/18 22:22 Dose: 1 tab Levothyroxine Sodium (Synthroid -) 25 mcg PO DAILY@0700 [facility] Last Admin: 01/09/18 06:23 Dose: 25 mcg Mirtazapine (Remeron -) 15 mg PO [facility] Last Admin: 01/08/18 22:22 Dose: 15 mg Montelukast Sodium (Singulair -) 10 mg PO [facility] Last Admin: 01/08/18 22:22 Dose: 10 mg Trazodone HCl (Desyrel -) 50 mg PO HS [facility] Last Admin: 01/08/18 22:22 Dose: 50 mg - Objective Vital Signs: Vital Signs Temperature 99.2 F 01/08/18 22:20 Pulse Rate 71 01/09/18 06:59 Respiratory Rate 20 01/09/18 03:42 Blood Pressure 122/68 01/09/18 03:42 O2 Sat by Pulse Oximetry (%) 92 L 01/09/18 06:59 Constitutional: Yes: No Distress Neck: Yes: Other (Trach) Cardiovascular: Yes: S1, S2. No: Murmur Respiratory: Yes: WNL, Regular, CTA Bilaterally Gastrointestinal: Yes: WNL, Normal Bowel Sounds, Soft. No: Tenderness, Tenderness, Epigastrium Labs: CBC, BMP 01/08/18 10:25 01/08/18 10:25 INR, PTT INR 1.10 (0.82-1.09) 01/07/18 13:49 Problem List - Problems (1) Hemoptysis Code(s): R04.2 - HEMOPTYSIS (2) Acute respiratory failure Code(s): J96.00 - ACUTE RESPIRATORY FAILURE, UNSP W HYPOXIA OR HYPERCAPNIA (3) COPD exacerbation Code(s): J44.1 - CHRONIC OBSTRUCTIVE PULMONARY DISEASE W (ACUTE) EXACERBATION (4) Morbid obesity Code(s): E66.01 - MORBID (SEVERE) OBESITY DUE TO EXCESS CALORIES (5) Tracheostomy dependence Code(s): Z93.0 - TRACHEOSTOMY STATUS Assessment/Plan Microbiology 01/07/18 13:51 Blood - Peripheral Venous Blood Culture - Preliminary NO GROWTH OBTAINED AFTER 24 HOURS, INCUBATION TO CONTINUE FOR 4 DAYS. 01/07/18 13:51 Blood - Peripheral Venous Blood Culture - Preliminary NO GROWTH OBTAINED AFTER 24 HOURS, INCUBATION TO CONTINUE FOR 4 DAYS. Laboratory Tests 01/08/18 10:25 WBC 10.0 RBC 4.00 Hct 36.6 Plt Count 204 Assessment Respiratory failure chronic Pneumonia Hemoptysis Plan Seen by ENT no pathology Await CT of the chest Evaluate need for bronch as hemoptysis has been present for some time Check Vanco troug level 3 rd dose Continue antibiotics Sputum c/s Bryan BARKLEY
[2018-01-09] MEDS: GABAPENTIN 250 MG/5 ML ORAL SOLUTION, 470 ML BOTTLE PO SCH ×2 (09:27→22:07)
--- NOTE | 2018-01-09 11:09 | PN ---
Progress Note, Physician Chief Complaint: increased secretion, obie colored sputum no SOB has pain in B/L chest underneath breasts- EKG- NSR , cardiac enzyme not elevated - Current Medication List Current Medications: Active Medications Acetaminophen (Tylenol -) 650 mg PO DAILY [facility] Last Admin: 01/09/18 09:23 Dose: 650 mg Albuterol/Ipratropium (Duoneb -) 1 amp NEB Q4HWA [facility] Last Admin: 01/09/18 06:40 Dose: 1 amp Aripiprazole (Abilify) 5 mg PO DAILY [facility] Last Admin: 01/09/18 09:25 Dose: 5 mg Aspirin (Asa -) 81 mg PO DAILY [facility] Last Admin: 01/08/18 10:01 Dose: 81 mg Budesonide/Formoterol Fumarate (Symbicort 160/4.5mcg -) 1 puff IH BID [facility] Last Admin: 01/09/18 09:22 Dose: 1 puff Escitalopram Oxalate (Lexapro -) 20 mg PO DAILY [facility] Last Admin: 01/09/18 09:25 Dose: 20 mg Furosemide (Lasix -) 20 mg PO DAILY [facility] Last Admin: 01/09/18 09:25 Dose: 20 mg Gabapentin (Neurontin Oral Liquid -) 250 mg PO BID [facility] Last Admin: 01/09/18 09:27 Dose: 250 mg Hydroxyzine HCl (Atarax -) 10 mg PO TID [facility] Last Admin: 01/09/18 06:23 Dose: 10 mg Cefepime HCl 2 gm/ Dextrose 100 mls @ 200 mls/hr IVPB Q8H-IV [facility]; Protocol Last Admin: 01/09/18 09:45 Dose: 200 mls/hr Vancomycin HCl 2,000 mg/ (Dextrose) 500 mls @ 250 mls/hr IVPB Q12H [facility]; Protocol Last Admin: 01/09/18 00:09 Dose: 250 mls/hr Lactobacillus Acidophilus (Bacid -) 1 tab PO BID [facility] Last Admin: 01/09/18 09:25 Dose: 1 tab Levothyroxine Sodium (Synthroid -) 25 mcg PO DAILY@0700 [facility] Last Admin: 01/09/18 06:23 Dose: 25 mcg Mirtazapine (Remeron -) 15 mg PO HS [facility] Last Admin: 01/08/18 22:22 Dose: 15 mg Montelukast Sodium (Singulair -) 10 mg PO [facility] Last Admin: 01/08/18 22:22 Dose: 10 mg Trazodone HCl (Desyrel -) 50 mg PO [facility] Last Admin: 01/08/18 22:22 Dose: 50 mg - Objective Vital Signs: Vital Signs Temperature 98.6 F 01/09/18 09:30 Pulse Rate 86 01/09/18 09:30 Respiratory Rate 24 01/09/18 09:30 Blood Pressure 127/60 01/09/18 09:30 O2 Sat by Pulse Oximetry (%) 92 L 01/09/18 06:59 Constitutional: Yes: No Distress, Calm Neck: Yes: Other (tracheostomy+) Cardiovascular: Yes: Regular Rate and Rhythm Respiratory: Yes: Diminished Gastrointestinal: Yes: Normal Bowel Sounds, Soft. No: Tenderness Edema: No Labs: CBC, BMP 01/08/18 10:25 01/08/18 10:25 INR, PTT INR 1.10 (0.82-1.09) 01/07/18 13:49 Problem List - Problems (1) Acute on chronic respiratory failure with hypoxia and hypercapnia Code(s): J96.21 - ACUTE AND CHRONIC RESPIRATORY FAILURE WITH HYPOXIA; J96.22 - ACUTE AND CHRONIC RESPIRATORY FAILURE WITH HYPERCAPNIA (2) Hemoptysis Code(s): R04.2 - HEMOPTYSIS (3) Pneumonia Code(s): J18.9 - PNEUMONIA, UNSPECIFIED ORGANISM (4) Tracheostomy dependence Code(s): Z93.0 - TRACHEOSTOMY STATUS (5) Atypical chest pain Code(s): R07.89 - OTHER CHEST PAIN (6) Diabetes Code(s): E11.9 - TYPE 2 DIABETES MELLITUS WITHOUT COMPLICATIONS Assessment/Plan PLAN CT chest to be done iv antibiotics chest pain can be pleuritic nebs standing and PRN spoke with Pulmonary continue with meds
[2018-01-09] MEDS: ASPIRIN 81 MG CHEWABLE TABLETS PO SCH (11:26)
[2018-01-09] MEDS ORDERED: ALBUTEROL SO4 2.5/IPRATROPIUM 0.5 INH SOL 3 ML VIAL.NEB. NEB PRN (11:27)
[2018-01-09] MEDS: ACETAMINOPHEN WITH CODEINE 300MG/30MG TABLET PO PRN ×2 (13:03→17:09)
--- NOTE | 2018-01-09 13:24 | PN ---
Progress Note (short form) - Note Progress Note: PULMONARY Breathing better. Still with significant cough with blood tinged sputum. No fevers or chills. Vented overnight. Vital Signs Period Temp Pulse Resp BP Sys/Petersen Pulse Ox Last 24 Hr 98.6 F-99.2 F 63-86 12-24 107-127/57-68 92-95 Intake & Output 01/06/18 01/07/18 01/08/18 01/09/18 23:59 23:59 23:59 23:59 Intake Total 200 2170 600 Balance 200 2170 600 Weight 145.15 kg Gen: mildly tachypneic at rest Heart: RRR Lung: decreased breath sounds at the bases Abd: soft, nontender Ext: no edema CBC, BMP 01/08/18 10:25 01/08/18 10:25 Active Medications Acetaminophen (Tylenol -) 650 mg PO DAILY [facility] Last Admin: 01/09/18 09:23 Dose: 650 mg Acetaminophen/Codeine Phosphate (Tylenol # 3 -) 1 tab PO Q4H PRN PRN Reason: PAIN LEVEL 6-10 Last Admin: 01/09/18 13:03 Dose: 1 tab Albuterol/Ipratropium (Duoneb -) 1 amp NEB Q6H PRN PRN Reason: SHORTNESS OF BREATH Albuterol/Ipratropium (Duoneb -) 1 amp NEB Q4H [facility] Aripiprazole (Abilify) 5 mg PO DAILY [facility] Last Admin: 01/09/18 09:25 Dose: 5 mg Budesonide/Formoterol Fumarate (Symbicort 160/4.5mcg -) 1 puff IH BID [facility] Last Admin: 01/09/18 09:22 Dose: 1 puff Escitalopram Oxalate (Lexapro -) 20 mg PO DAILY [facility] Last Admin: 01/09/18 09:25 Dose: 20 mg Furosemide (Lasix -) 40 mg PO DAILY [facility] Gabapentin (Neurontin Oral Liquid -) 250 mg PO BID [facility] Last Admin: 01/09/18 09:27 Dose: 250 mg Hydroxyzine HCl (Atarax -) 10 mg PO TID [facility] Last Admin: 01/09/18 13:04 Dose: 10 mg Cefepime HCl 2 gm/ Dextrose 100 mls @ 200 mls/hr IVPB Q8H-IV [facility]; Protocol Last Admin: 01/09/18 09:45 Dose: 200 mls/hr Vancomycin HCl 2,000 mg/ (Dextrose) 500 mls @ 250 mls/hr IVPB Q12H [facility]; Protocol Last Admin: 01/09/18 11:28 Dose: 250 mls/hr Lactobacillus Acidophilus (Bacid -) 1 tab PO BID [facility] Last Admin: 01/09/18 09:25 Dose: 1 tab Levothyroxine Sodium (Synthroid -) 25 mcg PO DAILY@0700 [facility] Last Admin: 01/09/18 06:23 Dose: 25 mcg Mirtazapine (Remeron -) [address] [facility] Last Admin: 01/08/18 22:22 Dose: 15 mg Montelukast Sodium (Singulair -) [address] [facility] Last Admin: 01/08/18 22:22 Dose: 10 mg Trazodone HCl (Desyrel -) [address] [facility] Last Admin: 01/08/18 22:22 Dose: 50 mg A/P Acute on Chronic Hypoxic and Hypercapneic Respiratory Failure Pneumonia Hemoptysis COPD LV Diastolic Dysfunction Seizure Disorder Bipolar Disorder - continue antibiotics - inhaled bronchodilators - O2 to keep Spo2 >90% - PMV as tolerated - mechanical ventilation overnight - DVT prophylaxis
[2018-01-09] MEDS ORDERED: PT OWN MED DRAWER 7, Y5N ONE ×4 (16:45→23:40)
[2018-01-09] MEDS: traZODone HCL 50 MG TABLET (FP) PO SCH (22:07)
[2018-01-09] MEDS: MONTELUKAST NA 10 MG TABLET PO SCH (22:08)
[2018-01-09] MEDS: MIRTAZAPINE 15 MG TABLET (FP) PO SCH (22:08)
[2018-01-10] MEDS: ACETAMINOPHEN WITH CODEINE 300MG/30MG TABLET PO PRN ×4 (01:31→22:22)
[2018-01-10] MEDS: CEFEPIME 2 GM in DEXTROSE 5%-WATER 100 ML IVPB SCH ×3 (01:32→19:01)
[2018-01-10] MEDS: ALBUTEROL SO4 2.5/IPRATROPIUM 0.5 INH SOL 3 ML VIAL.NEB. NEB SCH ×6 (05:40→23:10)
[2018-01-10] MEDS: LEVOTHYROXINE NA 25 MCG TABLET (FP) PO SCH (06:22)
[2018-01-10] MEDS: hydrOXYzine HCL 10 MG TABLET PO SCH ×3 (06:22→21:21)
[2018-01-10] MEDS: BUDESONIDE/FORMETEROL FUMARATE 160/4.5 mcg INHALER IH SCH ×2 (09:02→21:21)
[2018-01-10] MEDS: ESCITALOPRAM OXALATE 20 MG TABLET (FP) PO SCH (09:02)
[2018-01-10] MEDS: LACTOBACILLUS ACIDOPHILUS 1 TABLET PO SCH ×2 (09:02→21:21)
[2018-01-10] MEDS: FUROSEMIDE 20 MG TABLET (FP) PO SCH (09:02)
[2018-01-10] MEDS: ARIPiprazole 5 MG TABLET (FP) PO SCH (09:03)
[2018-01-10] MEDS: GABAPENTIN 250 MG/5 ML ORAL SOLUTION, 470 ML BOTTLE PO SCH ×2 (09:04→21:21)
--- NOTE | 2018-01-10 09:58 | PN ---
Progress Note, Physician Chief Complaint: decreased secretion, obie colored sputum no SOB has pain in neck - feels air is leaking in her neck from the trach - Current Medication List Current Medications: Active Medications Acetaminophen (Tylenol -) 650 mg PO DAILY [facility]EDS [facility] Last Admin: 01/09/18 09:23 Dose: 650 mg Acetaminophen/Codeine Phosphate (Tylenol # 3 -) 1 tab PO Q4H PRN PRN Reason: PAIN LEVEL 6-10 Last Admin: 01/10/18 07:04 Dose: 1 tab Albuterol/Ipratropium (Duoneb -) 1 amp NEB Q6H PRN PRN Reason: SHORTNESS OF BREATH Albuterol/Ipratropium (Duoneb -) 1 amp NEB Q4H [facility] 234 BEDS AT [facility] Last Admin: 01/10/18 05:40 Dose: 1 amp Aripiprazole (Abilify) 5 mg PO DAILY [facility] 234 [facility]S AT [facility] Last Admin: 01/10/18 09:03 Dose: 5 mg Budesonide/Formoterol Fumarate (Symbicort 160/4.5mcg -) 1 puff IH BID [facility] 234 [facility]S AT [facility] Last Admin: 01/10/18 09:02 Dose: 1 puff Escitalopram Oxalate (Lexapro -) 20 mg PO DAILY [facility] 234 [facility]S [facility] Last Admin: 01/10/18 09:02 Dose: 20 mg Furosemide (Lasix -) 40 mg PO DAILY [facility] 234 B[facility]S AT [facility] Last Admin: 01/10/18 09:02 Dose: 40 mg Gabapentin (Neurontin Oral Liquid -) 250 mg PO BID [facility] 234 [facility]S [facility] Last Admin: 01/10/18 09:04 Dose: 250 mg Hydroxyzine HCl (Atarax -) 10 mg PO TID [facility] 234 [facility]S [facility] Last Admin: 01/10/18 06:22 Dose: 10 mg Cefepime HCl 2 gm/ Dextrose 100 mls @ 200 mls/hr IVPB Q8H-IV [facility]; Protocol Last Admin: 01/10/18 09:03 Dose: 200 mls/hr Vancomycin HCl 2,000 mg/ (Dextrose) 500 mls @ 250 mls/hr IVPB Q12H [facility]; Protocol Last Admin: 01/09/18 23:40 Dose: 250 mls/hr Lactobacillus Acidophilus (Bacid -) 1 tab PO BID [facility]S [facility] Last Admin: 01/10/18 09:02 Dose: 1 tab Levothyroxine Sodium (Synthroid -) 25 mcg PO DAILY@0700 [facility] Last Admin: 01/10/18 06:22 Dose: 25 mcg Mirtazapine (Remeron -) 15 mg PO [facility] Last Admin: 01/09/18 22:08 Dose: 15 mg Montelukast Sodium (Singulair -) 10 mg PO [facility] Last Admin: 01/09/18 22:08 Dose: 10 mg Trazodone HCl (Desyrel -) 50 mg PO [facility] Last Admin: 01/09/18 22:07 Dose: 50 mg - Objective Vital Signs: Vital Signs Temperature 98.1 F 01/10/18 05:34 Pulse Rate 67 01/10/18 05:34 Respiratory Rate 20 01/10/18 05:34 Blood Pressure 133/68 01/10/18 05:34 O2 Sat by Pulse Oximetry (%) 93 L 01/09/18 19:55 Constitutional: Yes: No Distress HENT: Yes: Other (no subcutaneous emphysema) Cardiovascular: Yes: Regular Rate and Rhythm Respiratory: Yes: Diminished Gastrointestinal: Yes: Normal Bowel Sounds, Soft. No: Tenderness Edema: No Labs: CBC, BMP 01/08/18 10:25 01/08/18 10:25 INR, PTT INR 1.10 (0.82-1.09) 01/07/18 13:49 Problem List - Problems (1) Acute on chronic respiratory failure with hypoxia and hypercapnia Code(s): J96.21 - ACUTE AND CHRONIC RESPIRATORY FAILURE WITH HYPOXIA; J96.22 - ACUTE AND CHRONIC RESPIRATORY FAILURE WITH HYPERCAPNIA (2) Hemoptysis Code(s): R04.2 - HEMOPTYSIS (3) Pneumonia Code(s): J18.9 - PNEUMONIA, UNSPECIFIED ORGANISM (4) Tracheostomy dependence Code(s): Z93.0 - TRACHEOSTOMY STATUS (5) Atypical chest pain Code(s): R07.89 - OTHER CHEST PAIN (6) Diabetes Code(s): E11.9 - TYPE 2 DIABETES MELLITUS WITHOUT COMPLICATIONS Assessment/Plan PLAN CT chest noted iv antibiotics spoke with Pulmonary nebs standing and PRN continue with meds pt uses the ventilator every night
[2018-01-10] MEDS: ACETAMINOPHEN 325 MG TABLET (FP) PO SCH (11:04)
[2018-01-10] MEDS: POLYETHYLENE GLYCOL 3350 119 GM BTL PO SCH (11:37)
--- NOTE | 2018-01-10 11:58 | PN ---
Progress Note (short form) - Note Progress Note: PULMONARY c/o neck pain. Still with significant cough with blood tinged sputum. No fevers or chills. CT chest showing significant consolidations. Vital Signs Period Temp Pulse Resp BP Sys/Petersen Pulse Ox Last 24 Hr 97.9 F-98.7 F 65-88 15-22 116-133/60-77 93-95 Gen: mildly tachypneic at rest Heart: RRR Lung: decreased breath sounds at the bases Abd: soft, nontender Ext: no edema CBC, BMP 01/08/18 10:25 01/08/18 10:25 Active Medications Acetaminophen (Tylenol -) 650 mg PO DAILY [facility] Last Admin: 01/10/18 11:04 Dose: Not Given Acetaminophen/Codeine Phosphate (Tylenol # 3 -) 1 tab PO Q4H PRN PRN Reason: PAIN LEVEL 6-10 Last Admin: 01/10/18 10:59 Dose: 1 tab Albuterol/Ipratropium (Duoneb -) 1 amp NEB Q6H PRN PRN Reason: SHORTNESS OF BREATH Albuterol/Ipratropium (Duoneb -) 1 amp NEB Q4H [facility] Last Admin: 01/10/18 07:50 Dose: 1 amp Aripiprazole (Abilify) 5 mg PO DAILY [facility] Last Admin: 01/10/18 09:03 Dose: 5 mg Budesonide/Formoterol Fumarate (Symbicort 160/4.5mcg -) 1 puff IH BID [facility] Last Admin: 01/10/18 09:02 Dose: 1 puff Escitalopram Oxalate (Lexapro -) 20 mg PO DAILY [facility] Last Admin: 01/10/18 09:02 Dose: 20 mg Furosemide (Lasix -) 40 mg PO DAILY [facility] Last Admin: 01/10/18 09:02 Dose: 40 mg Gabapentin (Neurontin Oral Liquid -) 250 mg PO BID [facility] Last Admin: 01/10/18 09:04 Dose: 250 mg Hydroxyzine HCl (Atarax -) 10 mg PO TID [facility] Last Admin: 01/10/18 06:22 Dose: 10 mg Cefepime HCl 2 gm/ Dextrose 100 mls @ 200 mls/hr IVPB Q8H-IV [facility]; Protocol Last Admin: 01/10/18 09:03 Dose: 200 mls/hr Vancomycin HCl 2,000 mg/ (Dextrose) 500 mls @ 250 mls/hr IVPB Q12H [facility]; Protocol Last Admin: 01/09/18 23:40 Dose: 250 mls/hr Lactobacillus Acidophilus (Bacid -) 1 tab PO BID [facility] Last Admin: 01/10/18 09:02 Dose: 1 tab Levothyroxine Sodium (Synthroid -) 25 mcg PO DAILY@0700 [facility] Last Admin: 01/10/18 06:22 Dose: 25 mcg Mirtazapine (Remeron -) 15 mg PO [facility] Last Admin: 01/09/18 22:08 Dose: 15 mg Montelukast Sodium (Singulair -) 10 mg PO [facility] Last Admin: 01/09/18 22:08 Dose: 10 mg Polyethylene Glycol (Miralax (For Daily Use) -) 17 gm PO DAILY [facility] Last Admin: 01/10/18 11:37 Dose: 17 gm Trazodone HCl (Desyrel -) 50 mg PO [facility] Last Admin: 01/09/18 22:07 Dose: 50 mg A/P Acute on Chronic Hypoxic and Hypercapneic Respiratory Failure Pneumonia Hemoptysis COPD LV Diastolic Dysfunction Seizure Disorder Bipolar Disorder - continue antibiotics - inhaled bronchodilators - O2 to keep Spo2 >90% - PMV as tolerated - mechanical ventilation overnight - DVT prophylaxis
[2018-01-10] MEDS: VANCOMYCIN 2,000 MG in DEXTROSE 5%-WATER - 500 ML IVPB SCH (12:40)
[2018-01-10] MEDS ORDERED: PT OWN MED DRAWER 7, Y5N ONE ×2 (16:37→21:10)
[2018-01-10] MEDS: MONTELUKAST NA 10 MG TABLET PO SCH (21:21)
[2018-01-10] MEDS: MIRTAZAPINE 15 MG TABLET (FP) PO SCH (21:21)
[2018-01-10] MEDS: traZODone HCL 50 MG TABLET (FP) PO SCH (21:21)
[2018-01-11] MEDS: VANCOMYCIN 2,000 MG in DEXTROSE 5%-WATER - 500 ML IVPB SCH (00:56)
[2018-01-11] MEDS: CEFEPIME 2 GM in DEXTROSE 5%-WATER 100 ML IVPB SCH ×4 (02:54→20:00)
[2018-01-11] MEDS: ACETAMINOPHEN WITH CODEINE 300MG/30MG TABLET PO PRN ×3 (03:15→19:19)
[2018-01-11] MEDS: ALBUTEROL SO4 2.5/IPRATROPIUM 0.5 INH SOL 3 ML VIAL.NEB. NEB SCH ×5 (06:14→21:51)
[2018-01-11] MEDS: hydrOXYzine HCL 10 MG TABLET PO SCH ×3 (06:55→21:12)
[2018-01-11] MEDS: LEVOTHYROXINE NA 25 MCG TABLET (FP) PO SCH (06:55)
[2018-01-11 07:41] LABS: BASO % 0.3 % (0-2.0); EOS % 1.4 % (0-4.5); HEMATOCRIT 34.3 % (32.4-45.2); HEMOGLOBIN 11.1 GM/dL (10.7-15.3); MCH 29.6 pg (25.7-33.7); MCHC 32.3 g/dl (32.0-36.0); MEAN CELL VOLUME 91.7 fl (80-96); MEAN PLT VOLUME 7.3 fl (7.5-11.1); MONO % 5.6 % (3.8-10.2); NEUT % 71.7 % (42.8-82.8); PLATELET COUNT 243 K/MM3 (134-434); RBC 3.74 M/mm3 (3.60-5.2); RDW 12.9 % (11.6-15.6); WHITE BLOOD COUNT 6.6 K/mm3 (4.0-10.0)
[2018-01-11 08:00] LABS: BLOOD UREA NITROGEN 11 mg/dL (7-18); CALCIUM 8.9 mg/dL (8.5-10.1); CHLORIDE 96 mmol/L (98-107); CREATININE 0.3 mg/dL (0.55-1.02); GLUCOSE,RANDOM 80 mg/dL (74-106); POTASSIUM 4.5 mmol/L (3.5-5.1); SODIUM 144 mmol/L (136-145)
[2018-01-11] MEDS: LACTOBACILLUS ACIDOPHILUS 1 TABLET PO SCH ×2 (10:52→21:12)
[2018-01-11] MEDS: FUROSEMIDE 20 MG TABLET (FP) PO SCH (10:53)
[2018-01-11] MEDS: ESCITALOPRAM OXALATE 20 MG TABLET (FP) PO SCH (10:53)
[2018-01-11] MEDS: ARIPiprazole 5 MG TABLET (FP) PO SCH (10:56)
[2018-01-11] MEDS: BUDESONIDE/FORMETEROL FUMARATE 160/4.5 mcg INHALER IH SCH ×2 (10:59→21:13)
[2018-01-11] MEDS: ACETAMINOPHEN 325 MG TABLET (FP) PO SCH ×2 (11:00→11:10)
[2018-01-11] MEDS: GABAPENTIN 250 MG/5 ML ORAL SOLUTION, 470 ML BOTTLE PO SCH ×2 (11:10→21:13)
[2018-01-11] MEDS: POLYETHYLENE GLYCOL 3350 119 GM BTL PO SCH (11:10)
--- NOTE | 2018-01-11 11:49 | PN ---
Progress Note (short form) - Note Progress Note: Awake and alert on 60% Trach collar. Reports feeling better. Intake & Output 01/08/18 01/09/18 01/10/18 01/11/18 23:59 23:59 23:59 23:59 Intake Total 2170 2200 1550 1310 Balance 2170 2200 1550 1310 Weight 320 lb Last Vital Signs Temp Pulse Resp BP Pulse Ox 98 F 71 18 132/62 96 01/11/18 11:29 01/11/18 11:29 01/11/18 11:29 01/11/18 11:29 01/11/18 10:22 Active Medications Acetaminophen (Tylenol -) 650 mg PO DAILY [facility] Last Admin: 01/11/18 11:10 Dose: 650 mg Acetaminophen/Codeine Phosphate (Tylenol # 3 -) 1 tab PO Q4H PRN PRN Reason: PAIN LEVEL 6-10 Last Admin: 01/11/18 07:24 Dose: 1 tab Albuterol/Ipratropium (Duoneb -) 1 amp NEB Q6H PRN PRN Reason: SHORTNESS OF BREATH Albuterol/Ipratropium (Duoneb -) 1 amp NEB Q4HWA [facility] Last Admin: 01/11/18 10:18 Dose: 1 amp Aripiprazole (Abilify) 5 mg PO DAILY [facility] Last Admin: 01/11/18 10:56 Dose: 5 mg Budesonide/Formoterol Fumarate (Symbicort 160/4.5mcg -) 1 puff IH BID [facility] Last Admin: 01/11/18 10:59 Dose: 1 puff Escitalopram Oxalate (Lexapro -) 20 mg PO DAILY [facility] Last Admin: 01/11/18 10:53 Dose: 20 mg Furosemide (Lasix -) 40 mg PO DAILY [facility] Last Admin: 01/11/18 10:53 Dose: 40 mg Gabapentin (Neurontin Oral Liquid -) 250 mg PO BID [facility] Last Admin: 01/11/18 11:10 Dose: 250 mg Hydroxyzine HCl (Atarax -) 10 mg PO TID [facility] Last Admin: 01/11/18 06:55 Dose: 10 mg Cefepime HCl 2 gm/ Dextrose 100 mls @ 200 mls/hr IVPB Q8H-IV [facility]; Protocol Last Admin: 01/11/18 10:56 Dose: 200 mls/hr Vancomycin HCl 2,000 mg/ (Dextrose) 500 mls @ 250 mls/hr IVPB Q12H [facility]; Protocol Last Admin: 01/11/18 00:56 Dose: 250 mls/hr Lactobacillus Acidophilus (Bacid -) 1 tab PO BID [facility] Last Admin: 01/11/18 10:52 Dose: 1 tab Levothyroxine Sodium (Synthroid -) 25 mcg PO DAILY@0700 [facility] Last Admin: 01/11/18 06:55 Dose: 25 mcg Mirtazapine (Remeron -) 15 mg PO [facility] Last Admin: 01/10/18 21:21 Dose: 15 mg Montelukast Sodium (Singulair -) 10 mg PO [facility] Last Admin: 01/10/18 21:21 Dose: 10 mg Polyethylene Glycol (Miralax (For Daily Use) -) 17 gm PO DAILY [facility] Last Admin: 01/11/18 11:10 Dose: 17 gm Trazodone HCl (Desyrel -) 50 mg PO [facility] Last Admin: 01/10/18 21:21 Dose: 50 mg Gen: Awake and alert, NAD Heart: RRR Lung: decreased breath sounds at the bases Abd: soft, nontender Ext: no edema Laboratory Results - last 24 hr 01/11/18 01/11/18 06:30 06:30 WBC 6.6 RBC 3.74 Hgb 11.1 Hct 34.3 MCV 91.7 MCH 29.6 MCHC 32.3 RDW 12.9 Plt Count 243 MPV 7.3 L Absolute Neuts (auto) 4.7 Neutrophils % 71.7 Lymphocytes % 21.0 D Monocytes % 5.6 Eosinophils % 1.4 D Basophils % 0.3 Nucleated RBC % 0 Sodium 144 Potassium 4.5 Chloride 96 L BUN 11 Creatinine 0.3 L Creat Clearance w eGFR > 60 Random Glucose 80 Calcium 8.9 A/P Acute on Chronic Hypoxic and Hypercapneic Respiratory Failure Pneumonia Hemoptysis COPD LV Diastolic Dysfunction Seizure Disorder Bipolar Disorder - continue antibiotics - inhaled bronchodilators - O2 to keep Spo2 >90% - PMV as tolerated - mechanical ventilation overnight and PRN daytime - DVT prophylaxis Dr [place]os
--- NOTE | 2018-01-11 13:25 | PN ---
Progress Note (short form) - Note Progress Note: ID Vancomycin and Zosyn Selected Entries 01/11/18 01/11/18 10:22 11:29 Temperature 98 F Pulse Rate 71 O2 Sat by Pulse 96 Oximetry (%) Oxygen Flow 60 Rate Lung Rhonchi BIlateral with diminished BS Microbiology 01/09/18 09:30 Sputum - Endotrachea Suction/Ventilator Gram Stain - Final 01/09/18 09:30 Sputum - Endotrachea Suction/Ventilator Sputum Culture - Preliminary Non Lactose Fermenting Gnb 01/07/18 13:51 Blood - Peripheral Venous Blood Culture - Preliminary NO GROWTH OBTAINED AFTER 72 HOURS, INCUBATION TO CONTINUE FOR 2 DAYS. 01/07/18 13:51 Blood - Peripheral Venous Blood Culture - Preliminary NO GROWTH OBTAINED AFTER 72 HOURS, INCUBATION TO CONTINUE FOR 2 DAYS. Laboratory Tests 01/11/18 01/11/18 06:30 06:30 WBC 6.6 Plt Count 243 BUN 11 Creatinine 0.3 L Assessment Severe PNA with extensive infiltrate ? Pseudomonas Plan Stop vanco and continue Cefepime pending final cornelio Adams MD Problem List - Problems (1) Hemoptysis Code(s): R04.2 - HEMOPTYSIS (2) Acute respiratory failure Code(s): J96.00 - ACUTE RESPIRATORY FAILURE, UNSP W HYPOXIA OR HYPERCAPNIA (3) COPD exacerbation Code(s): J44.1 - CHRONIC OBSTRUCTIVE PULMONARY DISEASE W (ACUTE) EXACERBATION (4) Morbid obesity Code(s): E66.01 - MORBID (SEVERE) OBESITY DUE TO EXCESS CALORIES (5) Tracheostomy dependence Code(s): Z93.0 - TRACHEOSTOMY STATUS
[2018-01-11] MEDS ORDERED: PT OWN MED DRAWER 7, Y5N ONE (13:27)
--- NOTE | 2018-01-11 13:56 | PN ---
Progress Note, Physician Chief Complaint: decreased secretion, obie colored sputum no SOB has pain in neck - Current Medication List Current Medications: Active Medications Acetaminophen (Tylenol -) 650 mg PO DAILY [facility] Last Admin: 01/11/18 11:10 Dose: 650 mg Acetaminophen/Codeine Phosphate (Tylenol # 3 -) 1 tab PO Q4H PRN PRN Reason: PAIN LEVEL 6-10 Last Admin: 01/11/18 07:24 Dose: 1 tab Albuterol/Ipratropium (Duoneb -) 1 amp NEB Q6H PRN PRN Reason: SHORTNESS OF BREATH Albuterol/Ipratropium (Duoneb -) 1 amp NEB Q4HWA [facility] Last Admin: 01/11/18 10:18 Dose: 1 amp Aripiprazole (Abilify) 5 mg PO DAILY [facility] Last Admin: 01/11/18 10:56 Dose: 5 mg Budesonide/Formoterol Fumarate (Symbicort 160/4.5mcg -) 1 puff IH BID [facility] Last Admin: 01/11/18 10:59 Dose: 1 puff Escitalopram Oxalate (Lexapro -) 20 mg PO DAILY [facility] Last Admin: 01/11/18 10:53 Dose: 20 mg Furosemide (Lasix -) 40 mg PO DAILY [facility] Last Admin: 01/11/18 10:53 Dose: 40 mg Gabapentin (Neurontin Oral Liquid -) 250 mg PO BID [facility] Last Admin: 01/11/18 11:10 Dose: 250 mg Hydroxyzine HCl (Atarax -) 10 mg PO TID [facility] Last Admin: 01/11/18 06:55 Dose: 10 mg Cefepime HCl 2 gm/ Dextrose 100 mls @ 200 mls/hr IVPB Q8H-IV [facility]; Protocol Last Admin: 01/11/18 10:56 Dose: 200 mls/hr Lactobacillus Acidophilus (Bacid -) 1 tab PO BID [facility] Last Admin: 01/11/18 10:52 Dose: 1 tab Levothyroxine Sodium (Synthroid -) 25 mcg PO DAILY@0700 [facility] Last Admin: 01/11/18 06:55 Dose: 25 mcg Mirtazapine (Remeron -) 15 mg PO [facility] Last Admin: 01/10/18 21:21 Dose: 15 mg Montelukast Sodium (Singulair -) 10 mg PO HS [facility] Last Admin: 01/10/18 21:21 Dose: 10 mg Polyethylene Glycol (Miralax (For Daily Use) -) 17 gm PO DAILY [facility] Last Admin: 01/11/18 11:10 Dose: 17 gm Trazodone HCl (Desyrel -) 50 mg PO HS [facility] Last Admin: 01/10/18 21:21 Dose: 50 mg - Objective Vital Signs: Vital Signs Temperature 98 F 01/11/18 11:29 Pulse Rate 71 01/11/18 11:29 Respiratory Rate 18 01/11/18 11:29 Blood Pressure 132/62 01/11/18 11:29 O2 Sat by Pulse Oximetry (%) 96 01/11/18 10:22 Constitutional: Yes: No Distress Cardiovascular: Yes: Regular Rate and Rhythm Respiratory: Yes: Diminished Gastrointestinal: Yes: Normal Bowel Sounds, Soft, Abdomen, Obese. No: Tenderness Edema: No Labs: CBC, BMP 01/11/18 06:30 01/11/18 06:30 INR, PTT INR 1.10 (0.82-1.09) 01/07/18 13:49 Problem List - Problems (1) Acute on chronic respiratory failure with hypoxia and hypercapnia Code(s): J96.21 - ACUTE AND CHRONIC RESPIRATORY FAILURE WITH HYPOXIA; J96.22 - ACUTE AND CHRONIC RESPIRATORY FAILURE WITH HYPERCAPNIA (2) Hemoptysis Code(s): R04.2 - HEMOPTYSIS (3) Pneumonia Code(s): J18.9 - PNEUMONIA, UNSPECIFIED ORGANISM (4) Tracheostomy dependence Code(s): Z93.0 - TRACHEOSTOMY STATUS (5) Atypical chest pain Code(s): R07.89 - OTHER CHEST PAIN (6) Diabetes Code(s): E11.9 - TYPE 2 DIABETES MELLITUS WITHOUT COMPLICATIONS Assessment/Plan PLAN CT chest noted iv antibiotics spoke with Pulmonary ENT follow up to change trach nebs standing and PRN continue with meds pt uses the ventilator every night
[2018-01-11 13:59] LABS: ANION GAP -2 (8-16); CO2 50 mmol/L (21-32)
--- NOTE | 2018-01-11 17:47 | PN ---
Progress Note (short form) - Note Progress Note: Pt noted to have airleak when on ventilator at night. She has been stable on trach collar during the day. Called to change trach. [place] [facility] was at bedside. Accompanied by her RM and respiratory, old trach was removed without difficulty. New trach placed easily and secured, minimal peristomal bleeding was noted. Patient was placed on vent afterwards with good ventilation and O2 sat at 94%. Pt tolerated procedure well. Continue routine trach care and respiratory care as per medical team. Problem List - Problems (1) Acute on chronic respiratory failure with hypoxia and hypercapnia Assessment/Plan: New trach placed, continue routine care. Code(s): J96.21 - ACUTE AND CHRONIC RESPIRATORY FAILURE WITH HYPOXIA; J96.22 - ACUTE AND CHRONIC RESPIRATORY FAILURE WITH HYPERCAPNIA (2) Hemoptysis Code(s): R04.2 - HEMOPTYSIS
[2018-01-11] MEDS ORDERED: LORazepam 0.5 MG TABLET PO ONE (19:19)
[2018-01-11] MEDS: MONTELUKAST NA 10 MG TABLET PO SCH (21:12)
[2018-01-11] MEDS: traZODone HCL 50 MG TABLET (FP) PO SCH (21:13)
[2018-01-11] MEDS: MIRTAZAPINE 15 MG TABLET (FP) PO SCH (21:13)
[2018-01-11 21:25] LABS: ARTERIAL BLD GAS O2 SATURATION 91.9 % (90-98.9); ARTERIAL BLOOD GAS BASE EXCESS 16.7 meq/l (-2-2); ARTERIAL BLOOD GAS PO2 67.5 mmHg (80-100)
[2018-01-11 21:26] LABS: ALLENS TEST POSITIVE; ARTERIAL BLOOD GAS pH 7.33 (7.35-7.45)
[2018-01-11 21:27] LABS: ARTERIAL BLOOD GAS PCO2 90.5 mmHg (35-45)
--- NOTE | 2018-01-11 21:55 | EKG ---
Test Reason : Blood Pressure : / mmHG Vent. Rate : 066 BPM Atrial Rate : 066 BPM P-R Int : 146 ms QRS Dur : 112 ms QT Int : 380 ms P-R-T Axes : 032 -01 024 degrees QTc Int : 398 ms NORMAL SINUS RHYTHM INCOMPLETE RIGHT BUNDLE BRANCH BLOCK MINIMAL VOLTAGE CRITERIA FOR LVH, MAY BE NORMAL VARIANT BORDERLINE ECG WHEN COMPARED WITH ECG OF 07-JAN-2018 13:23, NO SIGNIFICANT CHANGE WAS FOUND Confirmed by JUSTIN BARKLEY, BUTCH ([id number]) on 01/11/2018 9:55:34 PM Referred By: Confirmed By:BUTCH ANDERSON MD
[2018-01-11] MEDS ORDERED: CEFUROXIME AXETIL 500 MG TABLET PO ONE (22:01)
--- NOTE | 2018-01-11 22:10 | HOSP ---
Physical Examination Vital Signs: Vital Signs Temperature 99.1 F 01/11/18 21:08 Pulse Rate 75 01/11/18 21:08 Respiratory Rate 22 01/11/18 19:41 Blood Pressure 133/72 01/11/18 21:08 O2 Sat by Pulse Oximetry (%) 96 01/11/18 10:22 Labs: CBC, BMP 01/11/18 06:30 01/11/18 06:30 Hospitalist Encounter Assessment: Informed by RN that patient did not receive her 6pm dose of cefepime / to unable to place peripheral line after various attempts. Micro labs noted and reviewed, ID notes reviewed Will give Ceftin 500mg PO x 1 now RN to Re-attempt at IV placement, if no successful, patient may need central line placement To be evaluated per primary team in the a.m.
[2018-01-11 23:43] LABS: ALLENS TEST POSITIVE; ARTERIAL BLD GAS O2 SATURATION 93.1 % (90-98.9); ARTERIAL BLOOD GAS BASE EXCESS 16.6 meq/l (-2-2); ARTERIAL BLOOD GAS PCO2 69.3 mmHg (35-45); ARTERIAL BLOOD GAS PO2 69.4 mmHg (80-100); ARTERIAL BLOOD GAS pH 7.42 (7.35-7.45)
[2018-01-12] MEDS: CEFEPIME 2 GM in DEXTROSE 5%-WATER 100 ML IVPB SCH ×3 (02:21→19:06)
[2018-01-12] MEDS: ACETAMINOPHEN WITH CODEINE 300MG/30MG TABLET PO PRN ×2 (02:34→07:28)
[2018-01-12] MEDS: hydrOXYzine HCL 10 MG TABLET PO SCH ×3 (06:26→21:54)
[2018-01-12] MEDS: LEVOTHYROXINE NA 25 MCG TABLET (FP) PO SCH (06:26)
[2018-01-12] MEDS: ALBUTEROL SO4 2.5/IPRATROPIUM 0.5 INH SOL 3 ML VIAL.NEB. NEB SCH ×5 (06:35→22:15)
[2018-01-12] MEDS: ACETAMINOPHEN 325 MG TABLET (FP) PO SCH (10:55)
[2018-01-12] MEDS: LACTOBACILLUS ACIDOPHILUS 1 TABLET PO SCH ×2 (10:55→21:54)
[2018-01-12] MEDS: ESCITALOPRAM OXALATE 20 MG TABLET (FP) PO SCH (10:55)
[2018-01-12] MEDS: BUDESONIDE/FORMETEROL FUMARATE 160/4.5 mcg INHALER IH SCH ×2 (10:55→21:54)
[2018-01-12] MEDS: FUROSEMIDE 20 MG TABLET (FP) PO SCH (10:55)
[2018-01-12] MEDS: ARIPiprazole 5 MG TABLET (FP) PO SCH (10:59)
[2018-01-12] MEDS ORDERED: PT OWN MED DRAWER 7, Y5N ONE (10:59)
[2018-01-12] MEDS: GABAPENTIN 250 MG/5 ML ORAL SOLUTION, 470 ML BOTTLE PO SCH ×2 (11:00→21:54)
--- NOTE | 2018-01-12 11:28 | PN ---
Progress Note (short form) - Note Progress Note: Awake and alert on 50% Trach collar. Trach changed by ENT at the bedside yesterday. Reports pain due to Trach change Intake & Output 01/09/18 01/10/18 01/11/18 01/12/18 23:59 23:59 23:59 23:59 Intake Total 2200 1550 2050 Balance 2200 1550 0 Weight 320 lb Last Vital Signs Temp Pulse Resp BP Pulse Ox 981 F H 68 16 126/68 96 01/12/18 05:30 01/12/18 05:30 01/12/18 06:10 01/12/18 05:30 01/11/18 21:00 Active Medications Acetaminophen (Tylenol -) 650 mg PO DAILY [facility] Last Admin: 01/12/18 10:55 Dose: 650 mg Acetaminophen/Codeine Phosphate (Tylenol # 3 -) 1 tab PO Q4H PRN PRN Reason: PAIN LEVEL 6-10 Last Admin: 01/12/18 07:28 Dose: 1 tab Albuterol/Ipratropium (Duoneb -) 1 amp NEB Q6H PRN PRN Reason: SHORTNESS OF BREATH Albuterol/Ipratropium (Duoneb -) 1 amp NEB Q4HWA [facility] Last Admin: 01/12/18 06:35 Dose: 1 amp Aripiprazole (Abilify) 5 mg PO DAILY [facility] Last Admin: 01/12/18 10:59 Dose: 5 mg Budesonide/Formoterol Fumarate (Symbicort 160/4.5mcg -) 1 puff IH BID [facility] Last Admin: 01/12/18 10:55 Dose: 1 puff Escitalopram Oxalate (Lexapro -) 20 mg PO DAILY [facility] Last Admin: 01/12/18 10:55 Dose: 20 mg Furosemide (Lasix -) 40 mg PO DAILY [facility] Last Admin: 01/12/18 10:55 Dose: 40 mg Gabapentin (Neurontin Oral Liquid -) 250 mg PO BID [facility] Last Admin: 01/12/18 11:00 Dose: 250 mg Hydroxyzine HCl (Atarax -) 10 mg PO TID [facility] Last Admin: 01/12/18 06:26 Dose: 10 mg Cefepime HCl 2 gm/ Dextrose 100 mls @ 200 mls/hr IVPB Q8H-IV [facility]; Protocol Last Admin: 01/12/18 02:21 Dose: Not Given Lactobacillus Acidophilus (Bacid -) 1 tab PO BID [facility] Last Admin: 01/12/18 10:55 Dose: 1 tab Levothyroxine Sodium (Synthroid -) 25 mcg PO DAILY@0700 [facility] Last Admin: 01/12/18 06:26 Dose: 25 mcg Mirtazapine (Remeron -) 15 mg PO [facility] Last Admin: 01/11/18 21:13 Dose: 15 mg Montelukast Sodium (Singulair -) 10 mg PO [facility] Last Admin: 01/11/18 21:12 Dose: 10 mg Polyethylene Glycol (Miralax (For Daily Use) -) 17 gm PO DAILY [facility] Last Admin: 01/11/18 11:10 Dose: 17 gm Trazodone HCl (Desyrel -) 50 mg PO [facility] Last Admin: 01/11/18 21:13 Dose: 50 mg Gen: Awake and alert, NAD Heart: RRR Lung: decreased breath sounds at the bases Abd: soft, nontender Ext: no edema Laboratory Results - last 24 hr 01/11/18 01/11/18 01/11/18 06:30 21:05 23:40 Puncture Site Left radial Left radial ABG pH 7.33 L 7.42 ABG pCO2 at Pt Temp 90.5 H* 69.3 H* D ABG pO2 at Pt Temp 67.5 L 69.4 L ABG HCO3 46.0 H* 43.6 H* ABG O2 Sat (Measured) 91.9 93.1 ABG O2 Content 13.7 L 12.8 L ABG Base Excess 16.7 H* 16.6 H* Harris Test Positive Positive O2 Delivery Device Mech vent Mech vent Oxygen Flow Rate 40% 50% Vent Mode A/c A/c Vent Rate 12 16 Mechanical Rate Yes Yes PEEP 5.0 5.0 Pressure Support Vent 450 450 Carbon Dioxide 50 H Anion Gap -2 L A/P Acute on Chronic Hypoxic and Hypercapneic Respiratory Failure Pneumonia Hemoptysis COPD LV Diastolic Dysfunction Seizure Disorder Bipolar Disorder - continue antibiotics per ID - inhaled bronchodilators - O2 to keep Spo2 >90% - PMV as tolerated - mechanical ventilation overnight and PRN daytime - DVT prophylaxis Dr Lagos
[2018-01-12] MEDS ORDERED: morphine CARPU-JECT 2 MG/1 ML DISP.SYRIN IVPUSH PRN ×2 (11:55→11:56)
--- NOTE | 2018-01-12 12:03 | PN ---
Progress Note (short form) - Note Progress Note: awake and alert trach changed yesterday no fevers WBC now normal Vital Signs Period Temp Pulse Resp BP Sys/Petersen Pulse Ox Last 24 Hr 98.3 F-981 F 67-91 16-22 105-150/58-88 96 cor-rrr lungs bilateral rhonchi abd soft,nt ext no edema CBC, BMP 01/11/18 06:30 01/11/18 06:30 Microbiology 01/09/18 09:30 Sputum - Endotrachea Suction/Ventilator Gram Stain - Final 01/09/18 09:30 Sputum - Endotrachea Suction/Ventilator Sputum Culture - Final Acinetobacter Baumannii/Haemol 01/07/18 13:51 Blood - Peripheral Venous Blood Culture - Preliminary NO GROWTH OBTAINED AFTER 96 HOURS, INCUBATION TO CONTINUE FOR 1 DAYS. 01/07/18 13:51 Blood - Peripheral Venous Blood Culture - Preliminary NO GROWTH OBTAINED AFTER 96 HOURS, INCUBATION TO CONTINUE FOR 1 DAYS. a/p d/w Dr Lagos clinically improving no fevers leukocytosis resolved decreased oxygen demand suspect acinetobacter represents tracheal colonization CONTACT ISOLATION continue cefepime
[2018-01-12] MEDS: POLYETHYLENE GLYCOL 3350 119 GM BTL PO SCH (12:20)
[2018-01-12] MEDS: ALPRAZolam 0.25 MG TABLET PO PRN (14:18)
--- NOTE | 2018-01-12 14:27 | PN ---
Progress Note, Physician Chief Complaint: has pain in neck- trach changed secretions less, not bloody - Current Medication List Current Medications: Active Medications Acetaminophen (Tylenol -) 650 mg PO DAILY [facility] Last Admin: 01/12/18 10:55 Dose: 650 mg Albuterol/Ipratropium (Duoneb -) 1 amp NEB Q6H PRN PRN Reason: SHORTNESS OF BREATH Albuterol/Ipratropium (Duoneb -) 1 amp NEB Q4HWA [facility] Last Admin: 01/12/18 11:00 Dose: 1 amp Alprazolam (Xanax -) 0.25 mg PO Q8H PRN PRN Reason: ANXIETY Last Admin: 01/12/18 14:18 Dose: 0.25 mg Aripiprazole (Abilify) 5 mg PO DAILY [facility] Last Admin: 01/12/18 10:59 Dose: 5 mg Budesonide/Formoterol Fumarate (Symbicort 160/4.5mcg -) 1 puff IH BID [facility] Last Admin: 01/12/18 10:55 Dose: 1 puff Escitalopram Oxalate (Lexapro -) 20 mg PO DAILY [facility] Last Admin: 01/12/18 10:55 Dose: 20 mg Furosemide (Lasix -) 40 mg PO DAILY [facility] Last Admin: 01/12/18 10:55 Dose: 40 mg Gabapentin (Neurontin Oral Liquid -) 250 mg PO BID [facility] Last Admin: 01/12/18 11:00 Dose: 250 mg Hydroxyzine HCl (Atarax -) 10 mg PO TID [facility] Last Admin: 01/12/18 14:18 Dose: 10 mg Cefepime HCl 2 gm/ Dextrose 100 mls @ 200 mls/hr IVPB Q8H-IV [facility]; Protocol Last Admin: 01/12/18 12:18 Dose: Not Given Lactobacillus Acidophilus (Bacid -) 1 tab PO BID [facility] Last Admin: 01/12/18 10:55 Dose: 1 tab Levothyroxine Sodium (Synthroid -) 25 mcg PO DAILY@0700 [facility] Last Admin: 01/12/18 06:26 Dose: 25 mcg Mirtazapine (Remeron -) 15 mg PO [facility] Last Admin: 01/11/18 21:13 Dose: 15 mg Montelukast Sodium (Singulair -) 10 mg PO [facility] Last Admin: 01/11/18 21:12 Dose: 10 mg Morphine Sulfate (Morphine Injection -) 1 mg IVPUSH Q4H PRN PRN Reason: PAIN LEVEL 1-5 Morphine Sulfate (Morphine Injection -) 2 mg IVPUSH Q4H PRN PRN Reason: PAIN LEVEL 6-10 Polyethylene Glycol (Miralax (For Daily Use) -) 17 gm PO DAILY [facility] Last Admin: 01/12/18 12:20 Dose: 17 gm Trazodone HCl (Desyrel -) 50 mg PO HS [facility] Last Admin: 01/11/18 21:13 Dose: 50 mg - Objective Vital Signs: Vital Signs Temperature 981 F H 01/12/18 05:30 Pulse Rate 80 01/12/18 12:01 Respiratory Rate 16 01/12/18 06:10 Blood Pressure 126/68 01/12/18 05:30 O2 Sat by Pulse Oximetry (%) 92 L 01/12/18 12:01 Constitutional: Yes: No Distress, Calm HENT: Yes: Other (trach+) Cardiovascular: Yes: Regular Rate and Rhythm Respiratory: Yes: Diminished Gastrointestinal: Yes: Normal Bowel Sounds, Soft, Abdomen, Obese. No: Tenderness Edema: No Labs: CBC, BMP 01/11/18 06:30 01/11/18 06:30 INR, PTT INR 1.10 (0.82-1.09) 01/07/18 13:49 Problem List - Problems (1) Acute on chronic respiratory failure with hypoxia and hypercapnia Code(s): J96.21 - ACUTE AND CHRONIC RESPIRATORY FAILURE WITH HYPOXIA; J96.22 - ACUTE AND CHRONIC RESPIRATORY FAILURE WITH HYPERCAPNIA (2) Hemoptysis Code(s): R04.2 - HEMOPTYSIS (3) Pneumonia Code(s): J18.9 - PNEUMONIA, UNSPECIFIED ORGANISM (4) Tracheostomy dependence Code(s): Z93.0 - TRACHEOSTOMY STATUS (5) Atypical chest pain Code(s): R07.89 - OTHER CHEST PAIN (6) Diabetes Code(s): E11.9 - TYPE 2 DIABETES MELLITUS WITHOUT COMPLICATIONS Assessment/Plan PLAN CT chest noted iv antibiotics nebs standing and PRN continue with meds needs line for iv antibiotics-- no iv access pt uses the ventilator every night
[2018-01-12] MEDS: oxyCODONE HCL 5 MG TABLET PO PRN (17:28)
[2018-01-12] MEDS: traZODone HCL 50 MG TABLET (FP) PO SCH (21:54)
[2018-01-12] MEDS: MONTELUKAST NA 10 MG TABLET PO SCH (21:54)
[2018-01-12] MEDS: MIRTAZAPINE 15 MG TABLET (FP) PO SCH (21:54)
[2018-01-13] MEDS: CEFEPIME 2 GM in DEXTROSE 5%-WATER 100 ML IVPB SCH ×3 (02:23→18:25)
[2018-01-13] MEDS: oxyCODONE HCL 5 MG TABLET PO PRN ×3 (02:48→21:52)
[2018-01-13] MEDS: ALBUTEROL SO4 2.5/IPRATROPIUM 0.5 INH SOL 3 ML VIAL.NEB. NEB SCH ×5 (06:32→22:00)
[2018-01-13] MEDS: hydrOXYzine HCL 10 MG TABLET PO SCH ×3 (06:54→21:54)
[2018-01-13] MEDS: LEVOTHYROXINE NA 25 MCG TABLET (FP) PO SCH (06:54)
[2018-01-13] MEDS: ALPRAZolam 0.25 MG TABLET PO PRN (06:59)
[2018-01-13] MEDS ORDERED: PT OWN MED DRAWER 7, Y5N ONE ×5 (07:10→22:42)
--- NOTE | 2018-01-13 07:52 | PROC ---
Procedure Note Procedure: Called by Dr. Jones because staff counselor unable to obtain peripheral IV access after multiple attempts. Using veinfinder, placed 22ga in lateral aspect of her left upper extremity ( bicep). Aspirates and flushes easily. Occlusive dressing applied. Ok to use. Tolerated procedure well.
[2018-01-13] MEDS: ARIPiprazole 5 MG TABLET (FP) PO SCH (11:02)
[2018-01-13] MEDS: LACTOBACILLUS ACIDOPHILUS 1 TABLET PO SCH ×2 (11:02→21:54)
[2018-01-13] MEDS: ESCITALOPRAM OXALATE 20 MG TABLET (FP) PO SCH (11:03)
[2018-01-13] MEDS: ACETAMINOPHEN 325 MG TABLET (FP) PO SCH (11:03)
[2018-01-13] MEDS: BUDESONIDE/FORMETEROL FUMARATE 160/4.5 mcg INHALER IH SCH ×2 (11:03→21:54)
[2018-01-13] MEDS: FUROSEMIDE 20 MG TABLET (FP) PO SCH (11:03)
[2018-01-13] MEDS: POLYETHYLENE GLYCOL 3350 119 GM BTL PO SCH (11:04)
[2018-01-13] MEDS: GABAPENTIN 250 MG/5 ML ORAL SOLUTION, 470 ML BOTTLE PO SCH ×2 (11:04→21:54)
[2018-01-13] MEDS ORDERED: MORPHINE SULFATE 2 MG/ML VIAL IVPUSH PRN (14:01)
--- NOTE | 2018-01-13 14:02 | PN ---
Progress Note, Physician History of Present Illness: PULMONARY ALERT,NAD ON TRACH COLLAR - Current Medication List Current Medications: Active Medications Acetaminophen (Tylenol -) 650 mg PO DAILY [facility] Last Admin: 01/13/18 11:03 Dose: 650 mg Albuterol/Ipratropium (Duoneb -) 1 amp NEB Q6H PRN PRN Reason: SHORTNESS OF BREATH Albuterol/Ipratropium (Duoneb -) 1 amp NEB Q4HWA [facility] Last Admin: 01/13/18 10:23 Dose: 1 amp Alprazolam (Xanax -) 0.25 mg PO Q8H PRN PRN Reason: ANXIETY Last Admin: 01/13/18 06:59 Dose: 0.25 mg Aripiprazole (Abilify) 5 mg PO DAILY [facility] Last Admin: 01/13/18 11:02 Dose: 5 mg Budesonide/Formoterol Fumarate (Symbicort 160/4.5mcg -) 1 puff IH BID [facility] Last Admin: 01/13/18 11:03 Dose: 1 puff Escitalopram Oxalate (Lexapro -) 20 mg PO DAILY [facility] Last Admin: 01/13/18 11:03 Dose: 20 mg Furosemide (Lasix -) 40 mg PO DAILY [facility] Last Admin: 01/13/18 11:03 Dose: 40 mg Gabapentin (Neurontin Oral Liquid -) 250 mg PO BID [facility] Last Admin: 01/13/18 11:04 Dose: 250 mg Hydroxyzine HCl (Atarax -) 10 mg PO TID [facility] Last Admin: 01/13/18 06:54 Dose: 10 mg Cefepime HCl 2 gm/ Dextrose 100 mls @ 200 mls/hr IVPB Q8H-IV [facility]; Protocol Last Admin: 01/13/18 11:04 Dose: 200 mls/hr Lactobacillus Acidophilus (Bacid -) 1 tab PO BID [facility] Last Admin: 01/13/18 11:02 Dose: 1 tab Levothyroxine Sodium (Synthroid -) 25 mcg PO DAILY@0700 [facility] Last Admin: 01/13/18 06:54 Dose: 25 mcg Mirtazapine (Remeron -) 15 mg PO [facility] Last Admin: 01/12/18 21:54 Dose: 15 mg Montelukast Sodium (Singulair -) 10 mg PO [facility] Last Admin: 01/12/18 21:54 Dose: 10 mg Morphine Sulfate (Morphine Injection -) 1 mg IVPUSH Q4H PRN PRN Reason: PAIN LEVEL 1-5 Morphine Sulfate (Morphine Injection -) 2 mg IVPUSH Q4H PRN PRN Reason: PAIN LEVEL 6-10 Oxycodone HCl (Roxicodone -) 5 mg PO Q6H PRN PRN Reason: PAIN LEVEL 6-10 Last Admin: 01/13/18 08:42 Dose: 5 mg Polyethylene Glycol (Miralax (For Daily Use) -) 17 gm PO DAILY [facility] Last Admin: 01/13/18 11:04 Dose: 17 gm Trazodone HCl (Desyrel -) 50 mg PO HS [facility] Last Admin: 01/12/18 21:54 Dose: 50 mg - Objective Vital Signs: Vital Signs Temperature 98 F 01/13/18 06:00 Pulse Rate 87 01/13/18 08:28 Respiratory Rate 18 01/13/18 06:20 Blood Pressure 115/62 01/13/18 06:00 O2 Sat by Pulse Oximetry (%) 91 L 01/13/18 08:28 Constitutional: Yes: Well Nourished, Calm Eyes: Yes: WNL HENT: Yes: WNL Neck: Yes: Supple (TRACH) Cardiovascular: Yes: Regular Rate and Rhythm, S1, S2 Respiratory: Yes: Rhonchi (FEW SCATTERED RHONCHI) Gastrointestinal: Yes: Normal Bowel Sounds, Soft Extremities: Yes: WNL Edema: No Labs: CBC, BMP Problem List - Problems (1) Acute on chronic respiratory failure with hypoxia and hypercapnia Code(s): J96.21 - ACUTE AND CHRONIC RESPIRATORY FAILURE WITH HYPOXIA; J96.22 - ACUTE AND CHRONIC RESPIRATORY FAILURE WITH HYPERCAPNIA (2) Hemoptysis Code(s): R04.2 - HEMOPTYSIS (3) Tracheostomy dependence Code(s): Z93.0 - TRACHEOSTOMY STATUS (4) CHF (congestive heart failure) Code(s): I50.9 - HEART FAILURE, UNSPECIFIED (5) Depression Code(s): F32.9 - MAJOR DEPRESSIVE DISORDER, SINGLE EPISODE, UNSPECIFIED (6) Respiratory failure Code(s): J96.90 - RESPIRATORY FAILURE, UNSP, UNSP W HYPOXIA OR HYPERCAPNIA Qualifiers: Chronicity: acute on chronic (7) Pneumonia Code(s): J18.9 - PNEUMONIA, UNSPECIFIED ORGANISM Assessment/Plan IMP ACUTE ON CHRONIC HYPOXEMIC/HYPERCAPNEIC RESPIRATORY FAILURE TRACH/VENT DEPENDENT ADVANCED COPD PNEUMONIA HEMOPTYSIS CHF SEIZURES BIPOLAR PLAN IV ABX PER ID INHALED BRONCHODILATORS VENT SUPPORT AT NIGHT AND PRN FOR INCREASED RESPIRATORY DISTRESS F/U CHEST X-RAYS DR STEELE
[2018-01-13] MEDS: MORPHINE SULFATE 2 MG/ML VIAL IVPUSH PRN (14:08)
--- NOTE | 2018-01-13 14:16 | PN ---
Progress Note, Physician Chief Complaint: has pain in neck- trach changed secretions less, not bloody - Current Medication List Current Medications: Active Medications Acetaminophen (Tylenol -) 650 mg PO DAILY [facility] Last Admin: 01/13/18 11:03 Dose: 650 mg Albuterol/Ipratropium (Duoneb -) 1 amp NEB Q6H PRN PRN Reason: SHORTNESS OF BREATH Albuterol/Ipratropium (Duoneb -) 1 amp NEB Q4HWA [facility] Last Admin: 01/13/18 10:23 Dose: 1 amp Alprazolam (Xanax -) 0.25 mg PO Q8H PRN PRN Reason: ANXIETY Last Admin: 01/13/18 06:59 Dose: 0.25 mg Aripiprazole (Abilify) 5 mg PO DAILY [facility] Last Admin: 01/13/18 11:02 Dose: 5 mg Budesonide/Formoterol Fumarate (Symbicort 160/4.5mcg -) 1 puff IH BID [facility] Last Admin: 01/13/18 11:03 Dose: 1 puff Escitalopram Oxalate (Lexapro -) 20 mg PO DAILY [facility] Last Admin: 01/13/18 11:03 Dose: 20 mg Furosemide (Lasix -) 40 mg PO DAILY [facility] Last Admin: 01/13/18 11:03 Dose: 40 mg Gabapentin (Neurontin Oral Liquid -) 250 mg PO BID [facility] Last Admin: 01/13/18 11:04 Dose: 250 mg Hydroxyzine HCl (Atarax -) 10 mg PO TID [facility] Last Admin: 01/13/18 14:08 Dose: 10 mg Cefepime HCl 2 gm/ Dextrose 100 mls @ 200 mls/hr IVPB Q8H-IV [facility]; Protocol Last Admin: 01/13/18 11:04 Dose: 200 mls/hr Lactobacillus Acidophilus (Bacid -) 1 tab PO BID [facility] Last Admin: 01/13/18 11:02 Dose: 1 tab Levothyroxine Sodium (Synthroid -) 25 mcg PO DAILY@0700 [facility] Last Admin: 01/13/18 06:54 Dose: 25 mcg Mirtazapine (Remeron -) 15 mg PO [facility] Last Admin: 01/12/18 21:54 Dose: 15 mg Montelukast Sodium (Singulair -) 10 mg PO HS [facility] Last Admin: 01/12/18 21:54 Dose: 10 mg Morphine Sulfate (Morphine Sulfate) 2 mg IVPUSH Q4H PRN PRN Reason: PAIN LEVEL 6-10 Last Admin: 01/13/18 14:08 Dose: 2 mg Morphine Sulfate (Morphine Sulfate) 1 mg IVPUSH Q4H PRN PRN Reason: PAIN LEVEL 1-5 Oxycodone HCl (Roxicodone -) 5 mg PO Q6H PRN PRN Reason: PAIN LEVEL 6-10 Last Admin: 01/13/18 08:42 Dose: 5 mg Polyethylene Glycol (Miralax (For Daily Use) -) 17 gm PO DAILY [facility] Last Admin: 01/13/18 11:04 Dose: 17 gm Trazodone HCl (Desyrel -) 50 mg PO [facility] Last Admin: 01/12/18 21:54 Dose: 50 mg - Objective Vital Signs: Vital Signs Temperature 98.1 F 01/13/18 14:08 Pulse Rate 80 01/13/18 14:08 Respiratory Rate 20 01/13/18 14:08 Blood Pressure 123/77 01/13/18 14:08 O2 Sat by Pulse Oximetry (%) 91 L 01/13/18 08:28 Constitutional: Yes: No Distress, Calm Cardiovascular: Yes: Regular Rate and Rhythm Respiratory: Yes: Diminished. No: Rales Gastrointestinal: Yes: Normal Bowel Sounds, Soft, Abdomen, Obese. No: Tenderness Edema: No Labs: CBC, BMP 01/11/18 06:30 01/11/18 06:30 INR, PTT INR 1.10 (0.82-1.09) 01/07/18 13:49 Problem List - Problems (1) Acute on chronic respiratory failure with hypoxia and hypercapnia Code(s): J96.21 - ACUTE AND CHRONIC RESPIRATORY FAILURE WITH HYPOXIA; J96.22 - ACUTE AND CHRONIC RESPIRATORY FAILURE WITH HYPERCAPNIA (2) Hemoptysis Code(s): R04.2 - HEMOPTYSIS (3) Pneumonia Code(s): J18.9 - PNEUMONIA, UNSPECIFIED ORGANISM (4) Tracheostomy dependence Code(s): Z93.0 - TRACHEOSTOMY STATUS (5) Atypical chest pain Code(s): R07.89 - OTHER CHEST PAIN (6) Diabetes Code(s): E11.9 - TYPE 2 DIABETES MELLITUS WITHOUT COMPLICATIONS Assessment/Plan PLAN CT chest noted iv antibiotics nebs standing and PRN continue with meds pain control podiatry eval for onychomycosis pt uses the ventilator every night
--- NOTE | 2018-01-13 16:05 | PN ---
Progress Note (short form) - Note Progress Note: awake and alert trach changed complaining of pain at trach site- reports breathing improved Vital Signs Period Temp Pulse Resp BP Sys/Petersen Pulse Ox Last 24 Hr 98 F-98.6 F 61-87 16-22 115-135/62-77 91-92 cor-rrr lungs decreased bs at bases abd soft,nt ext trace edema CBC, BMP 01/11/18 06:30 01/11/18 06:30 Microbiology 01/09/18 09:30 Sputum - Endotrachea Suction/Ventilator Gram Stain - Final 01/09/18 09:30 Sputum - Endotrachea Suction/Ventilator Sputum Culture - Final Acinetobacter Baumannii/Haemol 01/07/18 13:51 Blood - Peripheral Venous Blood Culture - Final NO GROWTH AFTER 5 DAYS INCUBATION 01/07/18 13:51 Blood - Peripheral Venous Blood Culture - Final NO GROWTH AFTER 5 DAYS INCUBATION a/p chronic resp failure pneumonia clinically improving continue cefepime for pneumonia 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
[2018-01-13] MEDS: MIRTAZAPINE 15 MG TABLET (FP) PO SCH (21:53)
[2018-01-13] MEDS: MONTELUKAST NA 10 MG TABLET PO SCH (21:54)
[2018-01-13] MEDS: traZODone HCL 50 MG TABLET (FP) PO SCH (21:54)
[2018-01-13] MEDS: NYSTATIN 100,000 UNIT/GM TOPICAL CREAM 15 GM TUBE TP SCH (22:39)
[2018-01-14] MEDS: CEFEPIME 2 GM in DEXTROSE 5%-WATER 100 ML IVPB SCH ×3 (02:17→17:28)
[2018-01-14] MEDS: hydrOXYzine HCL 10 MG TABLET PO SCH ×3 (05:49→21:45)
[2018-01-14] MEDS: ALPRAZolam 0.25 MG TABLET PO PRN ×2 (05:49→21:45)
[2018-01-14] MEDS: oxyCODONE HCL 5 MG TABLET PO PRN ×2 (05:50→21:00)
[2018-01-14] MEDS: LEVOTHYROXINE NA 25 MCG TABLET (FP) PO SCH (06:32)
[2018-01-14] MEDS: ALBUTEROL SO4 2.5/IPRATROPIUM 0.5 INH SOL 3 ML VIAL.NEB. NEB SCH ×5 (06:40→21:30)
[2018-01-14] MEDS ORDERED: PT OWN MED DRAWER 7, Y5N ONE ×2 (10:13→17:20)
[2018-01-14] MEDS: ESCITALOPRAM OXALATE 20 MG TABLET (FP) PO SCH (10:31)
[2018-01-14] MEDS: FUROSEMIDE 20 MG TABLET (FP) PO SCH (10:31)
[2018-01-14] MEDS: LACTOBACILLUS ACIDOPHILUS 1 TABLET PO SCH ×2 (10:31→21:45)
[2018-01-14] MEDS: ARIPiprazole 5 MG TABLET (FP) PO SCH (10:31)
[2018-01-14] MEDS: POLYETHYLENE GLYCOL 3350 119 GM BTL PO SCH (10:34)
[2018-01-14] MEDS: NYSTATIN 100,000 UNIT/GM TOPICAL CREAM 15 GM TUBE TP SCH ×2 (10:35→22:45)
[2018-01-14] MEDS: BUDESONIDE/FORMETEROL FUMARATE 160/4.5 mcg INHALER IH SCH ×2 (10:35→22:40)
[2018-01-14] MEDS: GABAPENTIN 250 MG/5 ML ORAL SOLUTION, 470 ML BOTTLE PO SCH ×2 (10:45→21:45)
[2018-01-14] MEDS: MORPHINE SULFATE 2 MG/ML VIAL IVPUSH PRN (11:51)
[2018-01-14] MEDS: ACETAMINOPHEN 325 MG TABLET (FP) PO SCH (12:47)
[2018-01-14] MEDS ORDERED: DOCUSATE SODIUM 100 MG CAPSULE (FP) PO PRN (12:52)
--- NOTE | 2018-01-14 12:52 | PN ---
Progress Note, Physician Chief Complaint: has pain in neck- trach changed secretions +, not bloody had difficulty breathing today Mucus plug+ secretions thick constipated - Current Medication List Current Medications: Active Medications Acetaminophen (Tylenol -) 650 mg PO DAILY [facility] Last Admin: 01/14/18 12:47 Dose: Not Given Albuterol/Ipratropium (Duoneb -) 1 amp NEB Q4HWA [facility] Last Admin: 01/14/18 10:40 Dose: 1 amp Alprazolam (Xanax -) 0.25 mg PO Q8H PRN PRN Reason: ANXIETY Last Admin: 01/14/18 05:49 Dose: 0.25 mg Aripiprazole (Abilify) 5 mg PO DAILY [facility] Last Admin: 01/14/18 10:31 Dose: 5 mg Budesonide/Formoterol Fumarate (Symbicort 160/4.5mcg -) 1 puff IH BID [facility] Last Admin: 01/14/18 10:35 Dose: 1 puff Escitalopram Oxalate (Lexapro -) 20 mg PO DAILY [facility] Last Admin: 01/14/18 10:31 Dose: 20 mg Furosemide (Lasix -) 40 mg PO DAILY [facility] Last Admin: 01/14/18 10:31 Dose: 40 mg Gabapentin (Neurontin Oral Liquid -) 250 mg PO BID [facility] Last Admin: 01/14/18 10:45 Dose: 250 mg Hydroxyzine HCl (Atarax -) 10 mg PO TID [facility] Last Admin: 01/14/18 05:49 Dose: 10 mg Cefepime HCl 2 gm/ Dextrose 100 mls @ 200 mls/hr IVPB Q8H-IV [facility]; Protocol Last Admin: 01/14/18 10:34 Dose: 200 mls/hr Lactobacillus Acidophilus (Bacid -) 1 tab PO BID [facility] Last Admin: 01/14/18 10:31 Dose: 1 tab Levothyroxine Sodium (Synthroid -) 25 mcg PO DAILY@0700 [facility] Last Admin: 01/14/18 06:32 Dose: 25 mcg Mirtazapine (Remeron -) 15 mg PO HS [facility] Last Admin: 01/13/18 21:53 Dose: 15 mg Montelukast Sodium (Singulair -) 10 mg PO HS [facility] Last Admin: 01/13/18 21:54 Dose: 10 mg Morphine Sulfate (Morphine Sulfate) 2 mg IVPUSH Q4H PRN PRN Reason: PAIN LEVEL 6-10 Last Admin: 01/14/18 11:51 Dose: 2 mg Morphine Sulfate (Morphine Sulfate) 1 mg IVPUSH Q4H PRN PRN Reason: PAIN LEVEL 1-5 Nystatin (Mycostatin Cream -) 1 applic TP BID [facility] Last Admin: 01/14/18 10:35 Dose: 1 applic Oxycodone HCl (Roxicodone -) 5 mg PO Q6H PRN PRN Reason: PAIN LEVEL 6-10 Last Admin: 01/14/18 05:50 Dose: 5 mg Polyethylene Glycol (Miralax (For Daily Use) -) 17 gm PO DAILY [facility] Last Admin: 01/14/18 10:34 Dose: 17 gm Trazodone HCl (Desyrel -) 50 mg PO HS [facility] Last Admin: 01/13/18 21:54 Dose: 50 mg - Objective Vital Signs: Vital Signs Temperature 98.1 F 01/14/18 10:27 Pulse Rate 77 01/14/18 10:27 Respiratory Rate 20 01/14/18 10:27 Blood Pressure 131/72 01/14/18 10:27 O2 Sat by Pulse Oximetry (%) 93 L 01/14/18 09:14 Constitutional: Yes: No Distress Cardiovascular: Yes: Regular Rate and Rhythm Respiratory: Yes: Diminished. No: Mechanically Ventilated Gastrointestinal: Yes: Normal Bowel Sounds, Soft, Abdomen, Obese. No: Tenderness Edema: No Labs: CBC, BMP 01/11/18 06:30 01/11/18 06:30 INR, PTT INR 1.10 (0.82-1.09) 01/07/18 13:49 Problem List - Problems (1) Acute on chronic respiratory failure with hypoxia and hypercapnia Code(s): J96.21 - ACUTE AND CHRONIC RESPIRATORY FAILURE WITH HYPOXIA; J96.22 - ACUTE AND CHRONIC RESPIRATORY FAILURE WITH HYPERCAPNIA (2) Hemoptysis Code(s): R04.2 - HEMOPTYSIS (3) Pneumonia Code(s): J18.9 - PNEUMONIA, UNSPECIFIED ORGANISM (4) Tracheostomy dependence Code(s): Z93.0 - TRACHEOSTOMY STATUS (5) Atypical chest pain Code(s): R07.89 - OTHER CHEST PAIN (6) Diabetes Code(s): E11.9 - TYPE 2 DIABETES MELLITUS WITHOUT COMPLICATIONS Assessment/Plan PLAN CT chest noted iv antibiotics nebs standing and PRN continue with meds may need mucomyst pain control add colace pt uses the ventilator every night
[2018-01-14 13:24] LABS: BASO % 0.3 % (0-2.0); EOS % 1.1 % (0-4.5); HEMATOCRIT 33.7 % (32.4-45.2); HEMOGLOBIN 10.5 GM/dL (10.7-15.3); MCH 28.4 pg (25.7-33.7); MCHC 31.3 g/dl (32.0-36.0); MEAN CELL VOLUME 90.8 fl (80-96); MEAN PLT VOLUME 6.8 fl (7.5-11.1); MONO % 4.5 % (3.8-10.2); NEUT % 76.1 % (42.8-82.8); PLATELET COUNT 293 K/MM3 (134-434); RBC 3.71 M/mm3 (3.60-5.2); RDW 13.3 % (11.6-15.6); WHITE BLOOD COUNT 7.1 K/mm3 (4.0-10.0)
[2018-01-14 13:29] LABS: ALBUMIN 2.7 g/dl (3.4-5.0); ANION GAP 3 (8-16); BILIRUBIN,TOTAL 0.5 mg/dL (0.2-1.0); BLOOD UREA NITROGEN 13 mg/dL (7-18); CALCIUM 8.8 mg/dL (8.5-10.1); CHLORIDE 100 mmol/L (98-107); CO2 40 mmol/L (21-32); CREATININE 0.4 mg/dL (0.55-1.02); GLUCOSE,RANDOM 127 mg/dL (74-106); POTASSIUM 4.5 mmol/L (3.5-5.1); SGOT/AST 40 U/L (15-37); SGPT/ALT 62 U/L (12-78); SODIUM 143 mmol/L (136-145); TOT PROT 6.4 g/dl (6.4-8.2)
[2018-01-14 13:30] LABS: ALK PHOS 128 U/L (45-117)
--- NOTE | 2018-01-14 14:29 | PN ---
Progress Note, Physician History of Present Illness: pulmonary awake no distress on tach collar,-resp distress - Current Medication List Current Medications: Active Medications Acetaminophen (Tylenol -) 650 mg PO DAILY [facility] Last Admin: 01/14/18 12:47 Dose: Not Given Albuterol/Ipratropium (Duoneb -) 1 amp NEB Q4HWA [facility] Last Admin: 01/14/18 10:40 Dose: 1 amp Alprazolam (Xanax -) 0.25 mg PO Q8H PRN PRN Reason: ANXIETY Last Admin: 01/14/18 05:49 Dose: 0.25 mg Aripiprazole (Abilify) 5 mg PO DAILY [facility] Last Admin: 01/14/18 10:31 Dose: 5 mg Budesonide/Formoterol Fumarate (Symbicort 160/4.5mcg -) 1 puff IH BID [facility] Last Admin: 01/14/18 10:35 Dose: 1 puff Docusate Sodium (Colace -) 100 mg PO Q8H PRN PRN Reason: CONSTIPATION Escitalopram Oxalate (Lexapro -) 20 mg PO DAILY [facility] Last Admin: 01/14/18 10:31 Dose: 20 mg Furosemide (Lasix -) 40 mg PO DAILY [facility] Last Admin: 01/14/18 10:31 Dose: 40 mg Gabapentin (Neurontin Oral Liquid -) 250 mg PO BID [facility] Last Admin: 01/14/18 10:45 Dose: 250 mg Hydroxyzine HCl (Atarax -) 10 mg PO TID [facility] Last Admin: 01/14/18 05:49 Dose: 10 mg Cefepime HCl 2 gm/ Dextrose 100 mls @ 200 mls/hr IVPB Q8H-IV [facility]; Protocol Last Admin: 01/14/18 10:34 Dose: 200 mls/hr Lactobacillus Acidophilus (Bacid -) 1 tab PO BID [facility] Last Admin: 01/14/18 10:31 Dose: 1 tab Levothyroxine Sodium (Synthroid -) 25 mcg PO DAILY@0700 [facility] Last Admin: 01/14/18 06:32 Dose: 25 mcg Mirtazapine (Remeron -) 15 mg PO [facility] Last Admin: 01/13/18 21:53 Dose: 15 mg Montelukast Sodium (Singulair -) 10 mg PO [facility] Last Admin: 01/13/18 21:54 Dose: 10 mg Morphine Sulfate (Morphine Sulfate) 2 mg IVPUSH Q4H PRN PRN Reason: PAIN LEVEL 6-10 Last Admin: 01/14/18 11:51 Dose: 2 mg Morphine Sulfate (Morphine Sulfate) 1 mg IVPUSH Q4H PRN PRN Reason: PAIN LEVEL 1-5 Nystatin (Mycostatin Cream -) 1 applic TP BID [facility] Last Admin: 01/14/18 10:35 Dose: 1 applic Oxycodone HCl (Roxicodone -) 5 mg PO Q6H PRN PRN Reason: PAIN LEVEL 6-10 Last Admin: 01/14/18 05:50 Dose: 5 mg Polyethylene Glycol (Miralax (For Daily Use) -) 17 gm PO DAILY [facility] Last Admin: 01/14/18 10:34 Dose: 17 gm Senna (Senna -) 2 tab PO HS [facility] Trazodone HCl (Desyrel -) 50 mg PO HS [facility] Last Admin: 01/13/18 21:54 Dose: 50 mg - Objective Vital Signs: Vital Signs Temperature 98.1 F 01/14/18 13:38 Pulse Rate 97 H 01/14/18 13:38 Respiratory Rate 20 01/14/18 13:38 Blood Pressure 160/76 01/14/18 13:38 O2 Sat by Pulse Oximetry (%) 93 L 01/14/18 09:14 Constitutional: Yes: Well Nourished, Calm Eyes: Yes: WNL HENT: Yes: WNL Neck: Yes: Supple (trach) Cardiovascular: Yes: Regular Rate and Rhythm, S1, S2 Respiratory: Yes: Rhonchi (few scattered rhonchi) Gastrointestinal: Yes: Normal Bowel Sounds, Soft Extremities: Yes: WNL Edema: No Labs: CBC, BMP 01/14/18 12:45 01/14/18 12:45 INR, PTT INR 1.10 (0.82-1.09) 01/07/18 13:49 Problem List - Problems (1) Acute on chronic respiratory failure with hypoxia and hypercapnia Code(s): J96.21 - ACUTE AND CHRONIC RESPIRATORY FAILURE WITH HYPOXIA; J96.22 - ACUTE AND CHRONIC RESPIRATORY FAILURE WITH HYPERCAPNIA (2) Hemoptysis Code(s): R04.2 - HEMOPTYSIS (3) Tracheostomy dependence Code(s): Z93.0 - TRACHEOSTOMY STATUS (4) CHF (congestive heart failure) Code(s): I50.9 - HEART FAILURE, UNSPECIFIED (5) Depression Code(s): F32.9 - MAJOR DEPRESSIVE DISORDER, SINGLE EPISODE, UNSPECIFIED (6) Respiratory failure Code(s): J96.90 - RESPIRATORY FAILURE, UNSP, UNSP W HYPOXIA OR HYPERCAPNIA Qualifiers: Chronicity: acute on chronic (7) Pneumonia Code(s): J18.9 - PNEUMONIA, UNSPECIFIED ORGANISM Assessment/Plan IMP ACUTE ON CHRONIC HYPOXEMIC/HYPERCAPNEIC RESPIRATORY FAILURE TRACH/VENT DEPENDENT ADVANCED COPD PNEUMONIA HEMOPTYSIS RESOLVED CHF SEIZURES BIPOLAR PLAN IV ABX PER ID INHALED BRONCHODILATORS VENT SUPPORT AT NIGHT AND PRN FOR INCREASED RESPIRATORY DISTRESS F/U CHEST X-RAYS DR STEELE
--- NOTE | 2018-01-14 21:13 | CONSULT ---
Consult - text type - Consultation Consultation Note: Patient seen in bed this afternoon. Alert and oriented. Complains of painful fungus toe nails. vss, Tmax 98.7 dp&pt 2/4 b/l, -ulceration, -drainage, -mal odor, +inflammed nail beds, +distal seperation of nail from beds, +onychomycosis x 10, -cellulitis, +hypertrophic nails, +tender, -heel wounds onychomycosis pain Nails debrided. Needs foot Care [id number]. Needs fungus toe nail tx. Patient is candidate for antifungal medication.
[2018-01-14] MEDS: MIRTAZAPINE 15 MG TABLET (FP) PO SCH (21:45)
[2018-01-14] MEDS: SENNOSIDES 8.6MG TABLET (FP) PO SCH (21:45)
[2018-01-14] MEDS: MONTELUKAST NA 10 MG TABLET PO SCH (21:45)
[2018-01-14] MEDS: traZODone HCL 50 MG TABLET (FP) PO SCH (21:45)
[2018-01-15] MEDS: CEFEPIME 2 GM in DEXTROSE 5%-WATER 100 ML IVPB SCH ×2 (01:58→17:17)
[2018-01-15] MEDS: MORPHINE SULFATE 2 MG/ML VIAL IVPUSH PRN ×2 (02:16→10:50)
[2018-01-15] MEDS: oxyCODONE HCL 5 MG TABLET PO PRN ×2 (04:01→12:20)
[2018-01-15] MEDS: hydrOXYzine HCL 10 MG TABLET PO SCH ×3 (06:15→22:40)
[2018-01-15] MEDS: LEVOTHYROXINE NA 25 MCG TABLET (FP) PO SCH (06:15)
[2018-01-15] MEDS: ALBUTEROL SO4 2.5/IPRATROPIUM 0.5 INH SOL 3 ML VIAL.NEB. NEB SCH ×6 (06:15→23:05)
[2018-01-15 07:52] LABS: BASO % 0.7 % (0-2.0); EOS % 1.1 % (0-4.5); HEMATOCRIT 31.8 % (32.4-45.2); HEMOGLOBIN 10.1 GM/dL (10.7-15.3); LYMPH % 22.9 % (8-40); MCH 28.7 pg (25.7-33.7); MCHC 31.7 g/dl (32.0-36.0); MEAN CELL VOLUME 90.6 fl (80-96); MEAN PLT VOLUME 7.3 fl (7.5-11.1); MONO % 5.2 % (3.8-10.2); NEUT % 70.1 % (42.8-82.8); PLATELET COUNT 287 K/MM3 (134-434); RBC 3.51 M/mm3 (3.60-5.2); RDW 13.3 % (11.6-15.6); WHITE BLOOD COUNT 7.1 K/mm3 (4.0-10.0)
[2018-01-15 08:18] LABS: CHLORIDE 96 mmol/L (98-107); POTASSIUM 4.6 mmol/L (3.5-5.1); SODIUM 141 mmol/L (136-145)
[2018-01-15 08:26] LABS: ALBUMIN 2.6 g/dl (3.4-5.0); ANION GAP 5 (8-16); BILIRUBIN,TOTAL 0.3 mg/dL (0.2-1.0); BLOOD UREA NITROGEN 16 mg/dL (7-18); CALCIUM 8.9 mg/dL (8.5-10.1); CO2 36 mmol/L (21-32); CREATININE 0.4 mg/dL (0.55-1.02); GLUCOSE,RANDOM 77 mg/dL (74-106); SGOT/AST 33 U/L (15-37); SGPT/ALT 59 U/L (12-78); TOT PROT 6.1 g/dl (6.4-8.2)
[2018-01-15 08:27] LABS: ALK PHOS 120 U/L (45-117)
[2018-01-15] MEDS ORDERED: PT OWN MED DRAWER 7, Y5N ONE (09:50)
[2018-01-15] MEDS: ESCITALOPRAM OXALATE 20 MG TABLET (FP) PO SCH (10:34)
[2018-01-15] MEDS: ARIPiprazole 5 MG TABLET (FP) PO SCH (10:34)
[2018-01-15] MEDS: ACETAMINOPHEN 325 MG TABLET (FP) PO SCH (10:34)
[2018-01-15] MEDS: LACTOBACILLUS ACIDOPHILUS 1 TABLET PO SCH ×2 (10:35→22:40)
[2018-01-15] MEDS: FUROSEMIDE 20 MG TABLET (FP) PO SCH (10:35)
[2018-01-15] MEDS: BUDESONIDE/FORMETEROL FUMARATE 160/4.5 mcg INHALER IH SCH ×2 (10:35→22:41)
[2018-01-15] MEDS: NYSTATIN 100,000 UNIT/GM TOPICAL CREAM 15 GM TUBE TP SCH ×2 (10:38→22:40)
[2018-01-15] MEDS: POLYETHYLENE GLYCOL 3350 119 GM BTL PO SCH (10:41)
[2018-01-15] MEDS: GABAPENTIN 250 MG/5 ML ORAL SOLUTION, 470 ML BOTTLE PO SCH ×2 (11:30→22:40)
--- NOTE | 2018-01-15 13:07 | PN ---
Progress Note (short form) - Note Progress Note: Pt seen/ examined. chart reviewed feels better today febrile Vital Signs Temp 98.3 F 01/15/18 05:30 Pulse 69 01/15/18 10:04 Resp 18 01/15/18 06:05 BP 100/66 01/15/18 05:30 Pulse Ox 94 L 01/15/18 10:04 Intake & Output 01/14/18 01/15/18 01/15/18 23:59 11:59 23:59 Intake Total 950 600 Balance 950 600 Intake: Oral 950 600 Other: Voiding Method Incontinent Incontinent # Unmeasured Voids Void 1 3 Bowel Movement No Yes: Large # Bowel Movements 1 1 Active Medications Acetaminophen (Tylenol -) 650 mg PO DAILY [facility] Last Admin: 01/15/18 10:34 Dose: 650 mg Albuterol/Ipratropium (Duoneb -) 1 amp NEB Q4HWA [facility] Last Admin: 01/15/18 10:03 Dose: 1 amp Aripiprazole (Abilify) 5 mg PO DAILY [facility] Last Admin: 01/15/18 10:34 Dose: 5 mg Budesonide/Formoterol Fumarate (Symbicort 160/4.5mcg -) 1 puff IH BID [facility] Last Admin: 01/15/18 10:35 Dose: 1 puff Docusate Sodium (Colace -) 100 mg PO Q8H PRN PRN Reason: CONSTIPATION Last Admin: 01/15/18 12:20 Dose: 100 mg Escitalopram Oxalate (Lexapro -) 20 mg PO DAILY [facility] Last Admin: 01/15/18 10:34 Dose: 20 mg Furosemide (Lasix -) 40 mg PO DAILY [facility] Last Admin: 01/15/18 10:35 Dose: 40 mg Gabapentin (Neurontin Oral Liquid -) 250 mg PO BID [facility] Last Admin: 01/15/18 11:30 Dose: 250 mg Hydroxyzine HCl (Atarax -) 10 mg PO TID [facility] Last Admin: 01/15/18 06:15 Dose: 10 mg Lactobacillus Acidophilus (Bacid -) 1 tab PO BID [facility] Last Admin: 01/15/18 10:35 Dose: 1 tab Levothyroxine Sodium (Synthroid -) 25 mcg PO DAILY@0700 [facility] Last Admin: 01/15/18 06:15 Dose: 25 mcg Mirtazapine (Remeron -) 15 mg PO [facility] Last Admin: 01/14/18 21:45 Dose: 15 mg Montelukast Sodium (Singulair -) 10 mg PO [facility] Last Admin: 01/14/18 21:45 Dose: 10 mg Morphine Sulfate (Morphine Sulfate) 2 mg IVPUSH Q4H PRN PRN Reason: PAIN LEVEL 6-10 Last Admin: 01/15/18 10:50 Dose: 2 mg Morphine Sulfate (Morphine Sulfate) 1 mg IVPUSH Q4H PRN PRN Reason: PAIN LEVEL 1-5 Nystatin (Mycostatin Cream -) 1 applic TP BID [facility] Last Admin: 01/15/18 10:38 Dose: 1 applic Oxycodone HCl (Roxicodone -) 5 mg PO Q6H PRN PRN Reason: PAIN LEVEL 6-10 Last Admin: 01/15/18 12:20 Dose: 5 mg Polyethylene Glycol (Miralax (For Daily Use) -) 17 gm PO DAILY [facility] Last Admin: 01/15/18 10:41 Dose: 17 gm Senna (Senna -) 2 tab PO [facility] Last Admin: 01/14/18 21:45 Dose: 2 tab Trazodone HCl (Desyrel -) 50 mg PO [facility] Last Admin: 01/14/18 21:45 Dose: 50 mg [facility] 01/15/18 06:30 01/15/18 06:30 Physical Exam Constitutional: Yes: No Distress. comfortable s/p trach Cardiovascular: Yes: Regular Rate and Rhythm Respiratory: Yes: Diminished. few scattered rhonchi. Gastrointestinal: Yes: Normal Bowel Sounds, Soft, Abdomen, Obese. No: Tenderness Edema: No Neuro- Alert/ awake CBC, [facility] 01/15/18 06:30 01/15/18 06:30 Problem List - Problems (1) Acute on chronic respiratory failure with hypoxia and hypercapnia Code(s): J96.21 - ACUTE AND CHRONIC RESPIRATORY FAILURE WITH HYPOXIA; J96.22 - ACUTE AND CHRONIC RESPIRATORY FAILURE WITH HYPERCAPNIA (2) Hemoptysis Code(s): R04.2 - HEMOPTYSIS (3) Pneumonia Code(s): J18.9 - PNEUMONIA, UNSPECIFIED ORGANISM (4) Tracheostomy dependence Code(s): Z93.0 - TRACHEOSTOMY STATUS (5) Atypical chest pain Code(s): R07.89 - OTHER CHEST PAIN (6) Diabetes Code(s): E11.9 - TYPE 2 DIABETES MELLITUS WITHOUT COMPLICATIONS Assessment/Plan Better iv antibiotics nebs standing and PRN continue with meds will follow Discussed with Dr. Antunez also Problem List - Problems (1) Acute on chronic respiratory failure with hypoxia and hypercapnia Code(s): J96.21 - ACUTE AND CHRONIC RESPIRATORY FAILURE WITH HYPOXIA; J96.22 - ACUTE AND CHRONIC RESPIRATORY FAILURE WITH HYPERCAPNIA (2) Hemoptysis Code(s): R04.2 - HEMOPTYSIS (3) Pneumonia Code(s): J18.9 - PNEUMONIA, UNSPECIFIED ORGANISM (4) Tracheostomy dependence Code(s): Z93.0 - TRACHEOSTOMY STATUS (5) Morbid obesity Code(s): E66.01 - MORBID (SEVERE) OBESITY DUE TO EXCESS CALORIES
--- NOTE | 2018-01-15 14:03 | PN ---
Progress Note, Physician History of Present Illness: PULMONARY ALERT,ON TRACH COLLAR,-RESP DISTRESS - Current Medication List Current Medications: Active Medications Acetaminophen (Tylenol -) 650 mg PO DAILY [facility] Last Admin: 01/15/18 10:34 Dose: 650 mg Albuterol/Ipratropium (Duoneb -) 1 amp NEB Q4HWA [facility] Last Admin: 01/15/18 10:03 Dose: 1 amp Aripiprazole (Abilify) 5 mg PO DAILY [facility] Last Admin: 01/15/18 10:34 Dose: 5 mg Budesonide/Formoterol Fumarate (Symbicort 160/4.5mcg -) 1 puff IH BID [facility] Last Admin: 01/15/18 10:35 Dose: 1 puff Docusate Sodium (Colace -) 100 mg PO Q8H PRN PRN Reason: CONSTIPATION Last Admin: 01/15/18 12:20 Dose: 100 mg Escitalopram Oxalate (Lexapro -) 20 mg PO DAILY [facility] Last Admin: 01/15/18 10:34 Dose: 20 mg Furosemide (Lasix -) 40 mg PO DAILY [facility] Last Admin: 01/15/18 10:35 Dose: 40 mg Gabapentin (Neurontin Oral Liquid -) 250 mg PO BID [facility] Last Admin: 01/15/18 11:30 Dose: 250 mg Hydroxyzine HCl (Atarax -) 10 mg PO TID [facility] Last Admin: 01/15/18 13:49 Dose: 10 mg Lactobacillus Acidophilus (Bacid -) 1 tab PO BID [facility] Last Admin: 01/15/18 10:35 Dose: 1 tab Levothyroxine Sodium (Synthroid -) 25 mcg PO DAILY@0700 [facility] Last Admin: 01/15/18 06:15 Dose: 25 mcg Mirtazapine (Remeron -) 15 mg PO [facility] Last Admin: 01/14/18 21:45 Dose: 15 mg Montelukast Sodium (Singulair -) 10 mg PO [facility] Last Admin: 01/14/18 21:45 Dose: 10 mg Morphine Sulfate (Morphine Sulfate) 2 mg IVPUSH Q4H PRN PRN Reason: PAIN LEVEL 6-10 Last Admin: 01/15/18 10:50 Dose: 2 mg Morphine Sulfate (Morphine Sulfate) 1 mg IVPUSH Q4H PRN PRN Reason: PAIN LEVEL 1-5 Nystatin (Mycostatin Cream -) 1 applic TP BID [facility] Last Admin: 01/15/18 10:38 Dose: 1 applic Oxycodone HCl (Roxicodone -) 5 mg PO Q6H PRN PRN Reason: PAIN LEVEL 6-10 Last Admin: 01/15/18 12:20 Dose: 5 mg Polyethylene Glycol (Miralax (For Daily Use) -) 17 gm PO DAILY [facility] Last Admin: 01/15/18 10:41 Dose: 17 gm Senna (Senna -) 2 tab PO HS [facility] Last Admin: 01/14/18 21:45 Dose: 2 tab Trazodone HCl (Desyrel -) 50 mg PO HS [facility] Last Admin: 01/14/18 21:45 Dose: 50 mg - Objective Vital Signs: Vital Signs Temperature 98.3 F 01/15/18 05:30 Pulse Rate 69 01/15/18 10:04 Respiratory Rate 20 01/15/18 09:00 Blood Pressure 100/66 01/15/18 05:30 O2 Sat by Pulse Oximetry (%) 94 L 01/15/18 10:04 Constitutional: Yes: Calm, Obese Eyes: Yes: WNL HENT: Yes: WNL Neck: Yes: Supple (TRACH) Cardiovascular: Yes: Regular Rate and Rhythm, S1, S2 Respiratory: Yes: Rhonchi (FEW SCATTERED ALISSA RHONCHI) Gastrointestinal: Yes: Normal Bowel Sounds, Soft Extremities: Yes: WNL Edema: No Labs: CBC, BMP 01/15/18 06:30 01/15/18 06:30 INR, PTT INR 1.10 (0.82-1.09) 01/07/18 13:49 Problem List - Problems (1) Acute on chronic respiratory failure with hypoxia and hypercapnia Code(s): J96.21 - ACUTE AND CHRONIC RESPIRATORY FAILURE WITH HYPOXIA; J96.22 - ACUTE AND CHRONIC RESPIRATORY FAILURE WITH HYPERCAPNIA (2) Hemoptysis Code(s): R04.2 - HEMOPTYSIS (3) Tracheostomy dependence Code(s): Z93.0 - TRACHEOSTOMY STATUS (4) CHF (congestive heart failure) Code(s): I50.9 - HEART FAILURE, UNSPECIFIED (5) Depression Code(s): F32.9 - MAJOR DEPRESSIVE DISORDER, SINGLE EPISODE, UNSPECIFIED (6) Respiratory failure Code(s): J96.90 - RESPIRATORY FAILURE, UNSP, UNSP W HYPOXIA OR HYPERCAPNIA Qualifiers: Chronicity: acute on chronic (7) Pneumonia Code(s): J18.9 - PNEUMONIA, UNSPECIFIED ORGANISM Assessment/Plan IMP ACUTE ON CHRONIC HYPOXEMIC/HYPERCAPNEIC RESPIRATORY FAILURE TRACH/VENT DEPENDENT ADVANCED COPD PNEUMONIA HEMOPTYSIS RESOLVED CHF SEIZURES BIPOLAR PLAN INHALED BRONCHODILATORS TRACH COLLAR,VENT SUPPORT AT NIGHT AND PRN FOR INCREASED RESPIRATORY DISTRESS F/U CHEST X-RAYS DR STEELE
--- NOTE | 2018-01-15 14:56 | PN ---
Progress Note (short form) - Note Progress Note: awake and alert trach changed complaining of pain at trach site- Vital Signs Period Temp Pulse Resp BP Sys/Petersen Pulse Ox Last 24 Hr 98.3 F-98.7 F 69-89 16-21 100-151/60-92 93-94 cor-rrr lungs decreeased bs at bases abd soft,nt ext no edema CBC, BMP 01/15/18 06:30 01/15/18 06:30 Microbiology 01/09/18 09:30 Sputum - Endotrachea Suction/Ventilator Gram Stain - Final 01/09/18 09:30 Sputum - Endotrachea Suction/Ventilator Sputum Culture - Final Acinetobacter Baumannii/Haemol 01/07/18 13:51 Blood - Peripheral Venous Blood Culture - Final NO GROWTH AFTER 5 DAYS INCUBATION 01/07/18 13:51 Blood - Peripheral Venous Blood Culture - Final NO GROWTH AFTER 5 DAYS INCUBATION cxray improved a/p chronic resp failure pneumonia clinically improving continue cefepime for pneumonia through the weekend - 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
[2018-01-15] MEDS ORDERED: CEFEPIME 2 GM in DEXTROSE 5%-WATER 100 ML IVPB SCH (15:00)
[2018-01-15] MEDS: ALPRAZolam 0.25 MG TABLET PO PRN (16:27)
[2018-01-15] MEDS: MIRTAZAPINE 15 MG TABLET (FP) PO SCH (22:40)
[2018-01-15] MEDS: traZODone HCL 50 MG TABLET (FP) PO SCH (22:40)
[2018-01-15] MEDS: MONTELUKAST NA 10 MG TABLET PO SCH (22:40)
[2018-01-15] MEDS: SENNOSIDES 8.6MG TABLET (FP) PO SCH (22:41)
[2018-01-16] MEDS: ALPRAZolam 0.25 MG TABLET PO PRN ×2 (01:13→14:52)
[2018-01-16] MEDS ORDERED: PT OWN MED DRAWER 7, Y5N ONE ×5 (01:45→21:14)
[2018-01-16] MEDS: CEFEPIME 2 GM in DEXTROSE 5%-WATER 100 ML IVPB SCH ×3 (01:59→18:33)
[2018-01-16] MEDS: LEVOTHYROXINE NA 25 MCG TABLET (FP) PO SCH (06:26)
[2018-01-16] MEDS: hydrOXYzine HCL 10 MG TABLET PO SCH ×3 (06:26→21:29)
[2018-01-16] MEDS: ALBUTEROL SO4 2.5/IPRATROPIUM 0.5 INH SOL 3 ML VIAL.NEB. NEB SCH ×5 (06:35→22:46)
[2018-01-16] MEDS ORDERED: oxyCODONE HCL 5 MG TABLET PO ONE (06:47)
--- NOTE | 2018-01-16 10:05 | PN ---
Progress Note, Physician History of Present Illness: pulmonary alert,nad,on trach collar. - Current Medication List Current Medications: Active Medications Acetaminophen (Tylenol -) 650 mg PO DAILY [facility] Last Admin: 01/15/18 10:34 Dose: 650 mg Albuterol/Ipratropium (Duoneb -) 1 amp NEB Q4HWA [facility] Last Admin: 01/16/18 06:35 Dose: 1 amp Alprazolam (Xanax -) 0.25 mg PO Q8H PRN PRN Reason: ANXIETY Last Admin: 01/16/18 01:13 Dose: 0.25 mg Aripiprazole (Abilify) 5 mg PO DAILY [facility] Last Admin: 01/15/18 10:34 Dose: 5 mg Budesonide/Formoterol Fumarate (Symbicort 160/4.5mcg -) 1 puff IH BID [facility] Last Admin: 01/15/18 22:41 Dose: Not Given Docusate Sodium (Colace -) 100 mg PO Q8H PRN PRN Reason: CONSTIPATION Last Admin: 01/15/18 12:20 Dose: 100 mg Escitalopram Oxalate (Lexapro -) 20 mg PO DAILY [facility] Last Admin: 01/15/18 10:34 Dose: 20 mg Furosemide (Lasix -) 40 mg PO DAILY [facility] Last Admin: 01/15/18 10:35 Dose: 40 mg Gabapentin (Neurontin Oral Liquid -) 250 mg PO BID [facility] Last Admin: 01/15/18 22:40 Dose: 250 mg Hydroxyzine HCl (Atarax -) 10 mg PO TID [facility] Last Admin: 01/16/18 06:26 Dose: 10 mg Cefepime HCl 2 gm/ Dextrose 100 mls @ 200 mls/hr IVPB Q8H-IV [facility]; Protocol Last Admin: 01/16/18 01:59 Dose: 200 mls/hr Lactobacillus Acidophilus (Bacid -) 1 tab PO BID [facility] Last Admin: 01/15/18 22:40 Dose: 1 tab Levothyroxine Sodium (Synthroid -) 25 mcg PO DAILY@0700 [facility] Last Admin: 01/16/18 06:26 Dose: 25 mcg Mirtazapine (Remeron -) 15 mg PO [facility] Last Admin: 01/15/18 22:40 Dose: 15 mg Montelukast Sodium (Singulair -) 10 mg PO HS [facility] Last Admin: 01/15/18 22:40 Dose: 10 mg Morphine Sulfate (Morphine Sulfate) 2 mg IVPUSH Q4H PRN PRN Reason: PAIN LEVEL 6-10 Last Admin: 01/15/18 10:50 Dose: 2 mg Morphine Sulfate (Morphine Sulfate) 1 mg IVPUSH Q4H PRN PRN Reason: PAIN LEVEL 1-5 Nystatin (Mycostatin Cream -) 1 applic TP BID [facility] Last Admin: 01/15/18 22:40 Dose: 1 applic Polyethylene Glycol (Miralax (For Daily Use) -) 17 gm PO DAILY [facility] Last Admin: 01/15/18 10:41 Dose: 17 gm Senna (Senna -) 2 tab PO [facility] Last Admin: 01/15/18 22:41 Dose: Not Given Trazodone HCl (Desyrel -) 50 mg PO [facility] Last Admin: 01/15/18 22:40 Dose: 50 mg - Objective Vital Signs: Vital Signs Temperature 98.2 F 01/16/18 06:00 Pulse Rate 74 01/16/18 06:00 Respiratory Rate 18 01/16/18 06:00 Blood Pressure 118/65 01/16/18 06:00 O2 Sat by Pulse Oximetry (%) 94 L 01/16/18 01:36 Constitutional: Yes: Well Nourished, Calm Eyes: Yes: WNL HENT: Yes: WNL Neck: Yes: Supple (trach) Cardiovascular: Yes: Regular Rate and Rhythm, S1, S2 Respiratory: Yes: Diminished Gastrointestinal: Yes: Normal Bowel Sounds, Soft Extremities: Yes: WNL Edema: No Labs: Problem List - Problems (1) Acute on chronic respiratory failure with hypoxia and hypercapnia Code(s): J96.21 - ACUTE AND CHRONIC RESPIRATORY FAILURE WITH HYPOXIA; J96.22 - ACUTE AND CHRONIC RESPIRATORY FAILURE WITH HYPERCAPNIA (2) Hemoptysis Code(s): R04.2 - HEMOPTYSIS (3) Tracheostomy dependence Code(s): Z93.0 - TRACHEOSTOMY STATUS (4) CHF (congestive heart failure) Code(s): I50.9 - HEART FAILURE, UNSPECIFIED (5) Depression Code(s): F32.9 - MAJOR DEPRESSIVE DISORDER, SINGLE EPISODE, UNSPECIFIED (6) Respiratory failure Code(s): J96.90 - RESPIRATORY FAILURE, UNSP, UNSP W HYPOXIA OR HYPERCAPNIA Qualifiers: Chronicity: acute on chronic (7) Pneumonia Code(s): J18.9 - PNEUMONIA, UNSPECIFIED ORGANISM Assessment/Plan IMP ACUTE ON CHRONIC HYPOXEMIC/HYPERCAPNEIC RESPIRATORY FAILURE TRACH/VENT DEPENDENT ADVANCED COPD PNEUMONIA HEMOPTYSIS RESOLVED CHF SEIZURES BIPOLAR PLAN INHALED BRONCHODILATORS TRACH COLLAR,VENT SUPPORT AT NIGHT AND PRN FOR INCREASED RESPIRATORY DISTRESS F/U CHEST X-RAYS DR STEELE
[2018-01-16] MEDS: ACETAMINOPHEN 325 MG TABLET (FP) PO SCH (10:16)
[2018-01-16] MEDS: ESCITALOPRAM OXALATE 20 MG TABLET (FP) PO SCH (10:17)
[2018-01-16] MEDS: FUROSEMIDE 20 MG TABLET (FP) PO SCH (10:17)
[2018-01-16] MEDS: LACTOBACILLUS ACIDOPHILUS 1 TABLET PO SCH ×2 (10:17→21:29)
[2018-01-16] MEDS: NYSTATIN 100,000 UNIT/GM TOPICAL CREAM 15 GM TUBE TP SCH ×2 (10:17→21:30)
[2018-01-16] MEDS: POLYETHYLENE GLYCOL 3350 119 GM BTL PO SCH (10:18)
[2018-01-16] MEDS: GABAPENTIN 250 MG/5 ML ORAL SOLUTION, 470 ML BOTTLE PO SCH ×2 (10:18→21:30)
[2018-01-16] MEDS: BUDESONIDE/FORMETEROL FUMARATE 160/4.5 mcg INHALER IH SCH ×2 (10:18→21:29)
[2018-01-16] MEDS: ARIPiprazole 5 MG TABLET (FP) PO SCH (10:18)
--- NOTE | 2018-01-16 12:59 | PN ---
Progress Note (short form) - Note Progress Note: Pt seen/ examined. comfortable no distress all f/u noted Vital Signs Temp 98.2 F 01/16/18 06:00 Pulse 86 01/16/18 12:17 Resp 23 01/16/18 12:15 BP 118/65 01/16/18 06:00 Pulse Ox 99 01/16/18 12:17 Intake & Output 01/15/18 01/16/18 01/16/18 23:59 11:59 23:59 Intake Total 700 440 Balance 700 440 Intake: IVPB 100 200 Oral 600 240 Other: Voiding Method Incontinent Incontinent # Unmeasured Voids Void 2 1 Bowel Movement Yes Yes: Large # Bowel Movements 1 1 Active Medications Acetaminophen (Tylenol -) 650 mg PO DAILY [facility] Last Admin: 01/15/18 10:34 Dose: 650 mg Albuterol/Ipratropium (Duoneb -) 1 amp NEB Q4HWA [facility] Last Admin: 01/15/18 10:03 Dose: 1 amp Aripiprazole (Abilify) 5 mg PO DAILY [facility] Last Admin: 01/15/18 10:34 Dose: 5 mg Budesonide/Formoterol Fumarate (Symbicort 160/4.5mcg -) 1 puff IH BID [facility] Last Admin: 01/15/18 10:35 Dose: 1 puff Docusate Sodium (Colace -) 100 mg PO Q8H PRN PRN Reason: CONSTIPATION Last Admin: 01/15/18 12:20 Dose: 100 mg Escitalopram Oxalate (Lexapro -) 20 mg PO DAILY [facility] Last Admin: 01/15/18 10:34 Dose: 20 mg Furosemide (Lasix -) 40 mg PO DAILY [facility] Last Admin: 01/15/18 10:35 Dose: 40 mg Gabapentin (Neurontin Oral Liquid -) 250 mg PO BID [facility] Last Admin: 01/15/18 11:30 Dose: 250 mg Hydroxyzine HCl (Atarax -) 10 mg PO TID [facility] Last Admin: 01/15/18 06:15 Dose: 10 mg Lactobacillus Acidophilus (Bacid -) 1 tab PO BID [facility] Last Admin: 01/15/18 10:35 Dose: 1 tab Levothyroxine Sodium (Synthroid -) 25 mcg PO DAILY@0700 [facility] Last Admin: 01/15/18 06:15 Dose: 25 mcg Mirtazapine (Remeron -) 15 mg PO [facility] Last Admin: 01/14/18 21:45 Dose: 15 mg Montelukast Sodium (Singulair -) 10 mg PO [facility] Last Admin: 01/14/18 21:45 Dose: 10 mg Morphine Sulfate (Morphine Sulfate) 2 mg IVPUSH Q4H PRN PRN Reason: PAIN LEVEL 6-10 Last Admin: 01/15/18 10:50 Dose: 2 mg Morphine Sulfate (Morphine Sulfate) 1 mg IVPUSH Q4H PRN PRN Reason: PAIN LEVEL 1-5 Nystatin (Mycostatin Cream -) 1 applic TP BID [facility] Last Admin: 01/15/18 10:38 Dose: 1 applic Oxycodone HCl (Roxicodone -) 5 mg PO Q6H PRN PRN Reason: PAIN LEVEL 6-10 Last Admin: 01/15/18 12:20 Dose: 5 mg Polyethylene Glycol (Miralax (For Daily Use) -) 17 gm PO DAILY [facility] Last Admin: 01/15/18 10:41 Dose: 17 gm Senna (Senna -) 2 tab PO [facility] Last Admin: 01/14/18 21:45 Dose: 2 tab Trazodone HCl (Desyrel -) 50 mg PO [facility] Last Admin: 01/14/18 21:45 Dose: 50 mg [facility] 01/15/18 06:30 01/15/18 06:30 Physical Exam Constitutional: Yes: No Distress. comfortable s/p trach Cardiovascular: Yes: Regular Rate and Rhythm Respiratory: Yes: Diminished. few scattered rhonchi. Gastrointestinal: Yes: Normal Bowel Sounds, Soft, Abdomen, Obese. No: Tenderness Edema: No Neuro- Alert/ awake [facility] 01/15/18 06:30 01/15/18 06:30 Problem List - Problems (1) Acute on chronic respiratory failure with hypoxia and hypercapnia Code(s): J96.21 - ACUTE AND CHRONIC RESPIRATORY FAILURE WITH HYPOXIA; J96.22 - ACUTE AND CHRONIC RESPIRATORY FAILURE WITH HYPERCAPNIA (2) Hemoptysis Code(s): R04.2 - HEMOPTYSIS (3) Pneumonia Code(s): J18.9 - PNEUMONIA, UNSPECIFIED ORGANISM (4) Tracheostomy dependence Code(s): Z93.0 - TRACHEOSTOMY STATUS (5) Atypical chest pain Code(s): R07.89 - OTHER CHEST PAIN (6) Diabetes Code(s): E11.9 - TYPE 2 DIABETES MELLITUS WITHOUT COMPLICATIONS Assessment/Plan Better/ Stable iv antibiotics -- per i/d contact isolation nebs standing and PRN continue with meds will follow Problem List - Problems (1) Acute on chronic respiratory failure with hypoxia and hypercapnia Code(s): J96.21 - ACUTE AND CHRONIC RESPIRATORY FAILURE WITH HYPOXIA; J96.22 - ACUTE AND CHRONIC RESPIRATORY FAILURE WITH HYPERCAPNIA (2) Hemoptysis Code(s): R04.2 - HEMOPTYSIS (3) Pneumonia Code(s): J18.9 - PNEUMONIA, UNSPECIFIED ORGANISM (4) Tracheostomy dependence Code(s): Z93.0 - TRACHEOSTOMY STATUS (5) Morbid obesity Code(s): E66.01 - MORBID (SEVERE) OBESITY DUE TO EXCESS CALORIES
--- NOTE | 2018-01-16 16:07 | PN ---
Progress Note, Physician History of Present Illness: Pt seen by roxanne Altamirano changed earlier this week. No resp problems. Asked to see trach. Pt c/o discomfort at trach site on faceplate. - Current Medication List Current Medications: Active Medications Acetaminophen (Tylenol -) 650 mg PO DAILY [facility] Last Admin: 01/16/18 10:16 Dose: 650 mg Albuterol/Ipratropium (Duoneb -) 1 amp NEB Q4HWA [facility] Last Admin: 01/16/18 10:55 Dose: 1 amp Alprazolam (Xanax -) 0.25 mg PO Q8H PRN PRN Reason: ANXIETY Last Admin: 01/16/18 14:52 Dose: 0.25 mg Aripiprazole (Abilify) 5 mg PO DAILY [facility] Last Admin: 01/16/18 10:18 Dose: 5 mg Budesonide/Formoterol Fumarate (Symbicort 160/4.5mcg -) 1 puff IH BID [facility] Last Admin: 01/16/18 10:18 Dose: 1 puff Docusate Sodium (Colace -) 100 mg PO Q8H PRN PRN Reason: CONSTIPATION Last Admin: 01/15/18 12:20 Dose: 100 mg Escitalopram Oxalate (Lexapro -) 20 mg PO DAILY [facility] Last Admin: 01/16/18 10:17 Dose: 20 mg Furosemide (Lasix -) 40 mg PO DAILY [facility] Last Admin: 01/16/18 10:17 Dose: 40 mg Gabapentin (Neurontin Oral Liquid -) 250 mg PO BID [facility] Last Admin: 01/16/18 10:18 Dose: 250 mg Hydroxyzine HCl (Atarax -) 10 mg PO TID [facility] Last Admin: 01/16/18 14:53 Dose: 10 mg Cefepime HCl 2 gm/ Dextrose 100 mls @ 200 mls/hr IVPB Q8H-IV NOELLE; Protocol Last Admin: 01/16/18 10:16 Dose: 200 mls/hr Lactobacillus Acidophilus (Bacid -) 1 tab PO BID [facility] Last Admin: 01/16/18 10:17 Dose: 1 tab Levothyroxine Sodium (Synthroid -) 25 mcg PO DAILY@0700 [facility] Last Admin: 01/16/18 06:26 Dose: 25 mcg Mirtazapine (Remeron -) 15 mg PO HS [facility] Last Admin: 01/15/18 22:40 Dose: 15 mg Montelukast Sodium (Singulair -) 10 mg PO HS [facility] Last Admin: 01/15/18 22:40 Dose: 10 mg Nystatin (Mycostatin Cream -) 1 applic TP BID [facility] Last Admin: 01/16/18 10:17 Dose: 1 applic Polyethylene Glycol (Miralax (For Daily Use) -) 17 gm PO DAILY [facility] Last Admin: 01/16/18 10:18 Dose: 17 gm Senna (Senna -) 2 tab PO HS [facility] Last Admin: 01/15/18 22:41 Dose: Not Given Trazodone HCl (Desyrel -) 50 mg PO HS [facility] Last Admin: 01/15/18 22:40 Dose: 50 mg - Objective Vital Signs: Vital Signs Temperature 98.2 F 01/16/18 14:42 Pulse Rate 79 01/16/18 14:42 Respiratory Rate 20 01/16/18 14:42 Blood Pressure 116/72 01/16/18 14:42 O2 Sat by Pulse Oximetry (%) 99 01/16/18 12:17 Constitutional: Yes: Well Nourished, No Distress, Other (on ventilator. conversive with weak voice.) Neck: Yes: Other (Portex in place with ties, secure. stoma & skin healthy. ID [id number]. Attached to vent.) Labs: CBC, BMP 01/15/18 06:30 01/15/18 06:30 INR, PTT INR 1.10 (0.82-1.09) 01/07/18 13:49 Problem List - Problems (1) Tracheostomy dependence Assessment/Plan: Trach site healthy Advise RN/RT to pad faceplate with different, softer dressings or gauze to minimize discomfort against skin. Continue routine trach care, care per primary team. Code(s): Z93.0 - TRACHEOSTOMY STATUS
[2018-01-16] MEDS: ACETAMINOPHEN 325 MG TABLET (FP) PO PRN (16:46)
[2018-01-16] MEDS: SENNOSIDES 8.6MG TABLET (FP) PO SCH ×2 (21:29→21:37)
[2018-01-16] MEDS: MIRTAZAPINE 15 MG TABLET (FP) PO SCH (21:29)
[2018-01-16] MEDS: MONTELUKAST NA 10 MG TABLET PO SCH (21:29)
[2018-01-16] MEDS: traZODone HCL 50 MG TABLET (FP) PO SCH (21:30)
[2018-01-17] MEDS ORDERED: PT OWN MED DRAWER 7, Y5N ONE ×3 (01:59→16:51)
[2018-01-17] MEDS: CEFEPIME 2 GM in DEXTROSE 5%-WATER 100 ML IVPB SCH ×3 (02:02→18:23)
[2018-01-17] MEDS: LEVOTHYROXINE NA 25 MCG TABLET (FP) PO SCH (06:32)
[2018-01-17] MEDS: hydrOXYzine HCL 10 MG TABLET PO SCH ×3 (06:32→21:03)
[2018-01-17] MEDS: ALBUTEROL SO4 2.5/IPRATROPIUM 0.5 INH SOL 3 ML VIAL.NEB. NEB SCH ×5 (06:50→21:13)
--- NOTE | 2018-01-17 09:32 | PN ---
Progress Note, Physician History of Present Illness: pulmonary alert,on trach collar,-resp distress - Current Medication List Current Medications: Active Medications Acetaminophen (Tylenol -) 650 mg PO Q6H PRN PRN Reason: PAIN 1-3 Last Admin: 01/16/18 16:46 Dose: 650 mg Albuterol/Ipratropium (Duoneb -) 1 amp NEB Q4HWA [facility] Last Admin: 01/17/18 06:50 Dose: 1 amp Alprazolam (Xanax -) 0.25 mg PO Q8H PRN PRN Reason: ANXIETY Last Admin: 01/16/18 14:52 Dose: 0.25 mg Aripiprazole (Abilify) 5 mg PO DAILY [facility] Last Admin: 01/16/18 10:18 Dose: 5 mg Budesonide/Formoterol Fumarate (Symbicort 160/4.5mcg -) 1 puff IH BID [facility] Last Admin: 01/16/18 21:29 Dose: 1 puff Docusate Sodium (Colace -) 100 mg PO Q8H PRN PRN Reason: CONSTIPATION Last Admin: 01/15/18 12:20 Dose: 100 mg Escitalopram Oxalate (Lexapro -) 20 mg PO DAILY [facility] Last Admin: 01/16/18 10:17 Dose: 20 mg Furosemide (Lasix -) 40 mg PO DAILY [facility] Last Admin: 01/16/18 10:17 Dose: 40 mg Gabapentin (Neurontin Oral Liquid -) 250 mg PO BID [facility] Last Admin: 01/16/18 21:30 Dose: 250 mg Hydroxyzine HCl (Atarax -) 10 mg PO TID [facility] Last Admin: 01/17/18 06:32 Dose: 10 mg Cefepime HCl 2 gm/ Dextrose 100 mls @ 200 mls/hr IVPB Q8H-IV NOELLE; Protocol Last Admin: 01/17/18 02:02 Dose: 200 mls/hr Lactobacillus Acidophilus (Bacid -) 1 tab PO BID [facility] Last Admin: 01/16/18 21:29 Dose: 1 tab Levothyroxine Sodium (Synthroid -) 25 mcg PO DAILY@0700 [facility] Last Admin: 01/17/18 06:32 Dose: 25 mcg Mirtazapine (Remeron -) 15 mg PO HS [facility] Last Admin: 01/16/18 21:29 Dose: 15 mg Montelukast Sodium (Singulair -) 10 mg PO [facility] Last Admin: 01/16/18 21:29 Dose: 10 mg Nystatin (Mycostatin Cream -) 1 applic TP BID [facility] Last Admin: 01/16/18 21:30 Dose: 1 applic Polyethylene Glycol (Miralax (For Daily Use) -) 17 gm PO DAILY [facility] Last Admin: 01/16/18 10:18 Dose: 17 gm Senna (Senna -) 2 tab PO [facility] Last Admin: 01/16/18 21:37 Dose: Not Given Trazodone HCl (Desyrel -) 50 mg PO [facility] Last Admin: 01/16/18 21:30 Dose: 50 mg - Objective Vital Signs: Vital Signs Temperature 98 F 01/17/18 09:22 Pulse Rate 65 01/17/18 09:22 Respiratory Rate 18 01/17/18 09:22 Blood Pressure 120/68 01/17/18 09:22 O2 Sat by Pulse Oximetry (%) 93 L 01/17/18 08:24 Constitutional: Yes: Well Nourished, Calm Eyes: Yes: WNL HENT: Yes: WNL Neck: Yes: Supple (trach) Cardiovascular: Yes: Regular Rate and Rhythm, S1, S2 Respiratory: Yes: Rhonchi (scattered butch rhonchi) Gastrointestinal: Yes: Normal Bowel Sounds, Soft Extremities: Yes: WNL Edema: No Labs: CBC, BMP Problem List - Problems (1) Acute on chronic respiratory failure with hypoxia and hypercapnia Code(s): J96.21 - ACUTE AND CHRONIC RESPIRATORY FAILURE WITH HYPOXIA; J96.22 - ACUTE AND CHRONIC RESPIRATORY FAILURE WITH HYPERCAPNIA (2) Hemoptysis Code(s): R04.2 - HEMOPTYSIS (3) Tracheostomy dependence Code(s): Z93.0 - TRACHEOSTOMY STATUS (4) CHF (congestive heart failure) Code(s): I50.9 - HEART FAILURE, UNSPECIFIED (5) Depression Code(s): F32.9 - MAJOR DEPRESSIVE DISORDER, SINGLE EPISODE, UNSPECIFIED (6) Respiratory failure Code(s): J96.90 - RESPIRATORY FAILURE, UNSP, UNSP W HYPOXIA OR HYPERCAPNIA Qualifiers: Chronicity: acute on chronic (7) Pneumonia Code(s): J18.9 - PNEUMONIA, UNSPECIFIED ORGANISM Assessment/Plan IMP ACUTE ON CHRONIC HYPOXEMIC/HYPERCAPNEIC RESPIRATORY FAILURE TRACH/VENT DEPENDENT ADVANCED COPD PNEUMONIA HEMOPTYSIS RESOLVED CHF SEIZURES BIPOLAR PLAN ABX as per ID INHALED BRONCHODILATORS TRACH COLLAR,VENT SUPPORT AT NIGHT AND PRN FOR INCREASED RESPIRATORY DISTRESS F/U CHEST X-RAYS DR STEELE
[2018-01-17] MEDS: ESCITALOPRAM OXALATE 20 MG TABLET (FP) PO SCH (10:07)
[2018-01-17] MEDS: FUROSEMIDE 20 MG TABLET (FP) PO SCH (10:07)
[2018-01-17] MEDS: LACTOBACILLUS ACIDOPHILUS 1 TABLET PO SCH ×2 (10:08→21:03)
[2018-01-17] MEDS: NYSTATIN 100,000 UNIT/GM TOPICAL CREAM 15 GM TUBE TP SCH ×2 (10:08→21:04)
[2018-01-17] MEDS: POLYETHYLENE GLYCOL 3350 119 GM BTL PO SCH (10:09)
[2018-01-17] MEDS: ARIPiprazole 5 MG TABLET (FP) PO SCH (10:09)
[2018-01-17] MEDS: GABAPENTIN 250 MG/5 ML ORAL SOLUTION, 470 ML BOTTLE PO SCH ×2 (10:10→21:03)
[2018-01-17] MEDS: BUDESONIDE/FORMETEROL FUMARATE 160/4.5 mcg INHALER IH SCH ×2 (10:10→21:05)
[2018-01-17] MEDS: ACETAMINOPHEN 325 MG TABLET (FP) PO PRN (11:33)
--- NOTE | 2018-01-17 14:07 | PN ---
Progress Note (short form) - Note Progress Note: Pt seen/ examined. comfortable no distress all f/u noted. afebrile ent f/u noted Vital Signs Temp 98 F 01/17/18 09:22 Pulse 65 01/17/18 09:22 Resp 18 01/17/18 09:22 BP 120/68 01/17/18 09:22 Pulse Ox 93 L 01/17/18 08:24 Intake & Output 01/16/18 01/17/18 01/17/18 23:59 11:59 23:59 Intake Total 1650 100 Balance 1650 100 Intake: IVPB 100 Oral 1650 Other: Voiding Method Incontinent Incontinent # Unmeasured Voids Void 2 1 Bowel Movement Yes Yes # Bowel Movements 1 1 Active Medications Acetaminophen (Tylenol -) 650 mg PO DAILY [facility] Last Admin: 01/15/18 10:34 Dose: 650 mg Albuterol/Ipratropium (Duoneb -) 1 amp NEB Q4HWA [facility] Last Admin: 01/15/18 10:03 Dose: 1 amp Aripiprazole (Abilify) 5 mg PO DAILY [facility] Last Admin: 01/15/18 10:34 Dose: 5 mg Budesonide/Formoterol Fumarate (Symbicort 160/4.5mcg -) 1 puff IH BID [facility] Last Admin: 01/15/18 10:35 Dose: 1 puff Docusate Sodium (Colace -) 100 mg PO Q8H PRN PRN Reason: CONSTIPATION Last Admin: 01/15/18 12:20 Dose: 100 mg Escitalopram Oxalate (Lexapro -) 20 mg PO DAILY [facility] Last Admin: 01/15/18 10:34 Dose: 20 mg Furosemide (Lasix -) 40 mg PO DAILY [facility] Last Admin: 01/15/18 10:35 Dose: 40 mg Gabapentin (Neurontin Oral Liquid -) 250 mg PO BID [facility] Last Admin: 01/15/18 11:30 Dose: 250 mg Hydroxyzine HCl (Atarax -) 10 mg PO TID [facility] Last Admin: 01/15/18 06:15 Dose: 10 mg Lactobacillus Acidophilus (Bacid -) 1 tab PO BID [facility] Last Admin: 01/15/18 10:35 Dose: 1 tab Levothyroxine Sodium (Synthroid -) 25 mcg PO DAILY@0700 [facility] Last Admin: 01/15/18 06:15 Dose: 25 mcg Mirtazapine (Remeron -) 15 mg PO [facility] Last Admin: 01/14/18 21:45 Dose: 15 mg Montelukast Sodium (Singulair -) 10 mg PO [facility] Last Admin: 01/14/18 21:45 Dose: 10 mg Morphine Sulfate (Morphine Sulfate) 2 mg IVPUSH Q4H PRN PRN Reason: PAIN LEVEL 6-10 Last Admin: 01/15/18 10:50 Dose: 2 mg Morphine Sulfate (Morphine Sulfate) 1 mg IVPUSH Q4H PRN PRN Reason: PAIN LEVEL 1-5 Nystatin (Mycostatin Cream -) 1 applic TP BID [facility] Last Admin: 01/15/18 10:38 Dose: 1 applic Oxycodone HCl (Roxicodone -) 5 mg PO Q6H PRN PRN Reason: PAIN LEVEL 6-10 Last Admin: 01/15/18 12:20 Dose: 5 mg Polyethylene Glycol (Miralax (For Daily Use) -) 17 gm PO DAILY [facility] Last Admin: 01/15/18 10:41 Dose: 17 gm Senna (Senna -) 2 tab PO [facility] Last Admin: 01/14/18 21:45 Dose: 2 tab Trazodone HCl (Desyrel -) 50 mg PO [facility] Last Admin: 01/14/18 21:45 Dose: 50 mg Physical Exam Constitutional: Yes: No Distress. comfortable s/p trach Cardiovascular: Yes: Regular Rate and Rhythm Respiratory: Yes: Diminished. few scattered rhonchi. Gastrointestinal: Yes: Normal Bowel Sounds, Soft, Abdomen, Obese. No: Tenderness Edema: No Neuro- Alert/ awake CBC, BMP 01/15/18 06:30 01/15/18 06:30 Problem List - Problems (1) Acute on chronic respiratory failure with hypoxia and hypercapnia Code(s): J96.21 - ACUTE AND CHRONIC RESPIRATORY FAILURE WITH HYPOXIA; J96.22 - ACUTE AND CHRONIC RESPIRATORY FAILURE WITH HYPERCAPNIA (2) Hemoptysis Code(s): R04.2 - HEMOPTYSIS (3) Pneumonia Code(s): J18.9 - PNEUMONIA, UNSPECIFIED ORGANISM (4) Tracheostomy dependence Code(s): Z93.0 - TRACHEOSTOMY STATUS (5) Atypical chest pain Code(s): R07.89 - OTHER CHEST PAIN (6) Diabetes Code(s): E11.9 - TYPE 2 DIABETES MELLITUS WITHOUT COMPLICATIONS Assessment/Plan Better/ Stable iv antibiotics -- per i/d contact isolation nebs standing and PRN continue with meds d/c planning Anticipate d/c tomorrow. Problem List - Problems (1) Acute on chronic respiratory failure with hypoxia and hypercapnia Code(s): J96.21 - ACUTE AND CHRONIC RESPIRATORY FAILURE WITH HYPOXIA; J96.22 - ACUTE AND CHRONIC RESPIRATORY FAILURE WITH HYPERCAPNIA (2) Hemoptysis Code(s): R04.2 - HEMOPTYSIS (3) Pneumonia Code(s): J18.9 - PNEUMONIA, UNSPECIFIED ORGANISM (4) Tracheostomy dependence Code(s): Z93.0 - TRACHEOSTOMY STATUS (5) Morbid obesity Code(s): E66.01 - MORBID (SEVERE) OBESITY DUE TO EXCESS CALORIES
[2018-01-17] MEDS: traZODone HCL 50 MG TABLET (FP) PO SCH (21:03)
[2018-01-17] MEDS: MIRTAZAPINE 15 MG TABLET (FP) PO SCH (21:03)
[2018-01-17] MEDS: MONTELUKAST NA 10 MG TABLET PO SCH (21:03)
[2018-01-17] MEDS: SENNOSIDES 8.6MG TABLET (FP) PO SCH (21:30)
[2018-01-18] MEDS ORDERED: PT OWN MED DRAWER 7, Y5N ONE ×2 (01:29→10:29)
[2018-01-18] MEDS: CEFEPIME 2 GM in DEXTROSE 5%-WATER 100 ML IVPB SCH ×2 (01:43→10:50)
[2018-01-18] MEDS: ACETAMINOPHEN 325 MG TABLET (FP) PO PRN (05:05)
[2018-01-18] MEDS: hydrOXYzine HCL 10 MG TABLET PO SCH (05:44)
[2018-01-18] MEDS: ALBUTEROL SO4 2.5/IPRATROPIUM 0.5 INH SOL 3 ML VIAL.NEB. NEB SCH ×3 (06:02→14:06)
[2018-01-18] MEDS: LEVOTHYROXINE NA 25 MCG TABLET (FP) PO SCH (06:29)
[2018-01-18] MEDS: POLYETHYLENE GLYCOL 3350 119 GM BTL PO SCH (10:50)
[2018-01-18] MEDS: NYSTATIN 100,000 UNIT/GM TOPICAL CREAM 15 GM TUBE TP SCH (10:50)
[2018-01-18] MEDS: FUROSEMIDE 20 MG TABLET (FP) PO SCH (10:50)
[2018-01-18] MEDS: ESCITALOPRAM OXALATE 20 MG TABLET (FP) PO SCH (10:50)
[2018-01-18] MEDS: LACTOBACILLUS ACIDOPHILUS 1 TABLET PO SCH (10:50)
[2018-01-18] MEDS: GABAPENTIN 250 MG/5 ML ORAL SOLUTION, 470 ML BOTTLE PO SCH (10:51)
[2018-01-18] MEDS: ARIPiprazole 5 MG TABLET (FP) PO SCH (10:51)
[2018-01-18] MEDS: BUDESONIDE/FORMETEROL FUMARATE 160/4.5 mcg INHALER IH SCH (10:52)
--- NOTE | 2018-01-18 11:28 | PN ---
Progress Note (short form) - Note Progress Note: PULMONARY States breathing better. +nonproductive cough. Vital Signs Period Temp Pulse Resp BP Sys/Petersen Pulse Ox Last 24 Hr 98.1 F-98.6 F 63-80 16-21 116-124/55-76 95 Gen: mildly tachypneic on trach collar Heart: RRR Lung: decreased breath sounds at the bases, scattered rhonchi Abd: soft, nontender Ext: no edema CBC, BMP 01/15/18 06:30 01/15/18 06:30 Active Medications Acetaminophen (Tylenol -) 650 mg PO Q6H PRN PRN Reason: PAIN 1-3 Last Admin: 01/18/18 05:05 Dose: 650 mg Albuterol/Ipratropium (Duoneb -) 1 amp NEB Q4HWA [facility] Last Admin: 01/18/18 10:10 Dose: 1 amp Alprazolam (Xanax -) 0.25 mg PO Q8H PRN PRN Reason: ANXIETY Last Admin: 01/16/18 14:52 Dose: 0.25 mg Aripiprazole (Abilify) 5 mg PO DAILY [facility] Last Admin: 01/18/18 10:51 Dose: 5 mg Budesonide/Formoterol Fumarate (Symbicort 160/4.5mcg -) 1 puff IH BID [facility] Last Admin: 01/18/18 10:52 Dose: 1 puff Docusate Sodium (Colace -) 100 mg PO Q8H PRN PRN Reason: CONSTIPATION Last Admin: 01/15/18 12:20 Dose: 100 mg Escitalopram Oxalate (Lexapro -) 20 mg PO DAILY [facility] Last Admin: 01/18/18 10:50 Dose: 20 mg Furosemide (Lasix -) 40 mg PO DAILY [facility] Last Admin: 01/18/18 10:50 Dose: 40 mg Gabapentin (Neurontin Oral Liquid -) 250 mg PO BID [facility] Last Admin: 01/18/18 10:51 Dose: 250 mg Hydroxyzine HCl (Atarax -) 10 mg PO TID [facility] Last Admin: 01/18/18 05:44 Dose: 10 mg Cefepime HCl 2 gm/ Dextrose 100 mls @ 200 mls/hr IVPB Q8H-IV [facility]EL[facility]; Protocol Last Admin: 01/18/18 10:50 Dose: 200 mls/hr Lactobacillus Acidophilus (Bacid -) 1 tab PO BID [facility] Last Admin: 01/18/18 10:50 Dose: 1 tab Levothyroxine Sodium (Synthroid -) 25 mcg PO DAILY@0700 [facility] Last Admin: 01/18/18 06:29 Dose: 25 mcg Mirtazapine (Remeron -) 15 mg PO [facility] Last Admin: 01/17/18 21:03 Dose: 15 mg Montelukast Sodium (Singulair -) 10 mg PO [facility] Last Admin: 01/17/18 21:03 Dose: 10 mg Nystatin (Mycostatin Cream -) 1 applic TP BID [facility] Last Admin: 01/18/18 10:50 Dose: 1 applic Polyethylene Glycol (Miralax (For Daily Use) -) 17 gm PO DAILY [facility] Last Admin: 01/18/18 10:50 Dose: Not Given Senna (Senna -) 2 tab PO [facility] Last Admin: 01/17/18 21:30 Dose: Not Given Trazodone HCl (Desyrel -) 50 mg PO [facility] Last Admin: 01/17/18 21:03 Dose: 50 mg A/P Acute on Chronic Hypoxic and Hypercapneic Respiratory Failure Pneumonia Hemoptysis COPD LV Diastolic Dysfunction Seizure Disorder Bipolar Disorder - continue antibiotics - inhaled bronchodilators - O2 to keep Spo2 >90% - PMV as tolerated - mechanical ventilation at night and PRN during day - DVT prophylaxis
--- NOTE | 2018-01-18 12:13 | DS ---
Physical Examination Vital Signs: Vital Signs Temperature 98.1 F 01/18/18 06:00 Pulse Rate 65 01/18/18 08:21 Respiratory Rate 16 01/18/18 06:00 Blood Pressure 124/76 01/18/18 06:00 O2 Sat by Pulse Oximetry (%) 95 01/18/18 08:21 Findings/Remarks: feels well comfortable Constitutional: Yes: No Distress, Calm Eyes: Yes: Conjunctiva Clear Neck: Yes: Other (s/p trach) Respiratory: Yes: Diminished Gastrointestinal: Yes: Soft Edema: No Neurological: Yes: Alert Psychiatric: Yes: Alert Labs: CBC, BMP 01/15/18 06:30 01/15/18 06:30 Discharge Summary Reason For Visit: RESPIRATORY FAILURE,PNEUMONIA Current Active Problems Acute on chronic respiratory failure with hypoxia and hypercapnia (Acute) Acute respiratory failure (Acute) Hemoptysis (Acute) Pneumonia (Acute) Tracheostomy dependence (Acute) Hospital Course: 52 year old female with PMH of morbid obesity, with COPD, chronic hypercapnia, hypoxic respiratory failure, trach dependent (on vent at night and blow by during the day), and CHF presenting from [facility] for hypoxia with blood tinged sputum. Patient was suctioned at assisted but her sats remained in the low 80s. Pt found to have pneumonia/ thickened secretions treated with borad spectrum abx. trach adjusted now much better sputum - grew resistant Acinobactor Now stable for discharge to assisted- off abx Need strict isolation. Discussed with Dr. Castro also today meds reconcilled Discussed with nursing staff also Discharge time 35 min in examining/ documenting and coordating care. Condition: Stable - Instructions Referrals: ON STAFF,NOT [Primary Care Provider] - Disposition: [facility] - Home Medications Comprehensive Discharge Medication List: Ambulatory Orders Acetaminophen 650 mg PO DAILY 10/18/17 Albuterol 2.5/Ipratropium 0.5 [Duoneb -] 1 neb NEB Q4H 10/18/17 Albuterol Sulfate [Proair Respiclick] 90 mcg IH TID 10/18/17 Aripiprazole 5 mg PO DAILY 10/18/17 Aspirin 81 mg PO DAILY 10/18/17 Budesonide/Formeterol Fumarate [SYMBICORT 160/4.5mcg -] 1 inh PO BID 10/18/17 Clotrimazole/Betamet Diprop [Lotrisone -] 1 applic TP BID 10/18/17 Ergocalciferol (Vitamin D2) [Vitamin D2] 50,000 unit PO WEEKLY 10/18/17 Escitalopram Oxalate [Lexapro -] 20 mg PO DAILY 10/18/17 Escitalopram Oxalate [Lexapro -] 20 mg PO DAILY 10/18/17 Furosemide [Lasix -] 20 mg PO DAILY 10/18/17 Gabapentin 250 mg PO BID 10/18/17 Heparin Sod,Porcine/0.9 % NaCl [Heparin 5,000 Unit/1,000 ml-Ns] 5,000 unit SCJ BID 10/18/17 Hydrocortisone/Pramoxine [Hydrocort-Pramoxine 2.5%-1% cm] 4 gm TP DAILY Insulin Lispro [Humalog] 100 unit SQ ASDIR 10/18/17 Ipratropium 0.02% Nebulizer [Atrovent 0.02% Nebulizer -] 1 neb NEB QID 10/18/17 Lactobacillus Acidophilus [Acidophilus] 1 each PO BID 10/18/17 Levothyroxine [Synthroid -] 25 mcg PO DAILY 10/18/17 Mirtazapine 15 mg PO DAILY 10/18/17 Montelukast Na [Singulair -] 10 mg PO HS 10/18/17 Trazodone HCl 50 mg PO DAILY 10/18/17 hydrOXYzine HCL [Atarax -] 10 mg PO TID 10/18/17 Alprazolam [Xanax] 0.25 mg PO Q8H PRN #30 tablet MDD 3 01/18/18 Loratadine 10 mg PO DAILY PRN #30 amp 01/18/18 Nystatin Cream [Mycostatin Cream -] 1 applic TP BID applic 01/18/18 Polyethylene Glycol 3350 [Miralax 119 gm Btl -] 17 gm PO DAILY bottle 01/18/18 Sennosides [Senna -] 2 tab PO HS tablet 01/18/18
[2018-01-18 15:34] VITALS: BP 121/63; PULSE 78; TEMP 98.9
== END 2018-01-18 16:56 | DRG 208 ==
LOC: JER 12:56 → JERBED 15:38 → J5S 22:03
PROVIDERS: ADMIT Internal Medicine; ATTEND Internal Medicine
PROC: 5A1945Z Respiratory Ventilation, 24-96 Consecutive Hours (ICD-10-PCS; principal; 2018-01-07)
PROC: 0BJ08ZZ Inspection of Tracheobronchial Tree, Via Natural or Artificial Opening Endoscopic (ICD-10-PCS; 2018-01-08)
PROC: 0B21XFZ Change Tracheostomy Device in Trachea, External Approach (ICD-10-PCS; 2018-01-11)
DX: J18.9 Pneumonia, unspecified organism (principal); J96.21 Acute and chronic respiratory failure with hypoxia; J96.22 Acute and chronic respiratory failure with hypercapnia; Z68.44 Body mass index [BMI] 60.0-69.9, adult; J98.11 Atelectasis; R04.2 Hemoptysis; G40.89 Other seizures; J44.1 Chronic obstructive pulmonary disease with (acute) exacerbation; T17.890A Other foreign object in other parts of respiratory tract causing asphyxiation, initial encounter; E66.01 Morbid (severe) obesity due to excess calories; Z93.0 Tracheostomy status; Z99.81 Dependence on supplemental oxygen; I50.9 Heart failure, unspecified; I45.10 Unspecified right bundle-branch block; B96.29 Other Escherichia coli [E. coli] as the cause of diseases classified elsewhere; F31.9 Bipolar disorder, unspecified; Z87.891 Personal history of nicotine dependence; B35.1 Tinea unguium
CPT/HCPCS: 36415; 36600; 71045-TC-FY; 71250-TC; 80048; 80053; 82803; 83605; 83880; 84484; 85025; 85610; 85651; 85730; 86140; 86480; 87040; 87070; 87186; 87205; 87389; 93005; 93010; 94002; 94640; 97116-GP; 97161-GP; 99283-25; J1644; J7620

== ENCOUNTER 2018-01-24 18:05 | Inpatient (IN) | payer OTHER ==
[2018-01-24] MEDS ORDERED: ALBUTEROL SO4 2.5/IPRATROPIUM 0.5 INH SOL 3 ML VIAL.NEB. NEB ONE ×4 (18:09→19:48)
--- NOTE | 2018-01-24 18:34 | PDOC ---
History of Present Illness - General Chief Complaint: Shortness of Breath Stated Complaint: BREATHING DIFFICULTY Time Seen by Provider: 01/24/18 18:09 - History of Present Illness Initial Comments: 01/24/18 18:34 Ms. Osei is a well known 52 yo female w/ pmh of CHF, chronic hypercapnia, hypoxic respiratory failure, COPD, seizure disorder, bipolar disorder, and trach dependency recently admitted 01/07-01/18 for pneumonia who presents from [facility] for evaluation of hypoxia noted at home. Upon arrival to ED tach color noted to be underinflated. Collar reinflated and patient suctioned - saturation increased to low 90's. The patient denies chest pain, shortness of breath, headache and dizziness. Denies fever, chills, nausea, vomit, diarrhea and constipation. Denies dysuria, frequency, urgency and hematuria. Allergies: NKDA Social History: Former smoker. No reported alcohol or drug use. Surgical History: Trach PCP: Not on staff. Past History - Past Medical History Allergies/Adverse Reactions: Allergies Allergy/AdvReac Type Severity Reaction Status Date / Time No Known Allergies Allergy Unverified 01/07/18 13:16 Home Medications: Ambulatory Orders Acetaminophen 650 mg PO DAILY 10/18/17 Albuterol 2.5/Ipratropium 0.5 [Duoneb -] 1 neb NEB Q4H 10/18/17 Albuterol Sulfate [Proair Respiclick] 90 mcg IH TID 10/18/17 Aripiprazole 5 mg PO DAILY 10/18/17 Aspirin 81 mg PO DAILY 10/18/17 Ergocalciferol (Vitamin D2) [Vitamin D2] 50,000 unit PO WEEKLY 10/18/17 Furosemide [Lasix -] 20 mg PO DAILY 10/18/17 Gabapentin 250 mg PO BID 10/18/17 Heparin Sod,Porcine/0.9 % NaCl [Heparin 5,000 Unit/1,000 ml-Ns] 5,000 unit SCJ BID 10/18/17 Insulin Lispro [Humalog] 0 unit SQ ASDIR 10/18/17 Lactobacillus Acidophilus [Acidophilus] 1 each PO BID 10/18/17 Levothyroxine [Synthroid -] 25 mcg PO DAILY 10/18/17 Mirtazapine 15 mg PO DAILY 10/18/17 Trazodone HCl 50 mg PO DAILY 10/18/17 Alprazolam [Xanax] 0.25 mg PO Q8H PRN #30 tablet MDD 3 01/18/18 Sennosides [Senna -] 2 tab PO HS tablet 01/18/18 Atorvastatin Ca [Lipitor] 20 mg PO HS 01/24/18 Budesonide/Formeterol Fumarate [SYMBICORT 160/4.5mcg -] 1 inh PO BID 01/24/18 Clotrimazole/Betamet Diprop [Lotrisone Cream (Small Tube)] 1 applic TP BID 01/24 Docusate Sodium [Colace] 100 mg PO DAILY 01/24/18 Escitalopram Oxalate [Lexapro -] 20 mg PO DAILY 01/24/18 Magnesium Hydroxide [Milk of Magnesia] 400 mg PO ASDIR PRN 01/24/18 Polyethylene Glycol 3350 [Gavilax] 17 gm PO DAILY 01/24/18 Vit A/Vitamin D3/E/Aloe V/Zinc [Periguard Ointment] 100 gm TP BID 01/24/18 hydrOXYzine HCL [Atarax -] 10 mg PO TID 01/24/18 Cardiac Disorders: (heart failure- 2013) COPD: Yes CHF: Yes Psychiatric Problems: Yes (bipolar) Seizures: Yes Thyroid Disease: Yes - Suicide/Smoking/Psychosocial Hx Smoking Status: No Smoking History: Former smoker Have you smoked in the past 12 months: No Number of Cigarettes Smoked Daily: 5 If you are a former smoker, when did you quit?: 2013 Information on smoking cessation initiated: No 'Breaking Loose' booklet given: 05/11/16 Hx Alcohol Use: No Drug/Substance Use Hx: No Substance Use Type: None Hx Substance Use Treatment: No Review of Systems - Review of Systems Comments:: 01/24/18 18:42 GENERAL/CONSTITUTIONAL: No fever or chills. No weakness. HEAD, EYES, EARS, NOSE AND THROAT: No change in vision. No ear pain or discharge. No sore throat. CARDIOVASCULAR: +Shortness of breath today as described RESPIRATORY: No cough, wheezing, or hemoptysis. GASTROINTESTINAL: No nausea, vomiting, diarrhea or constipation. GENITOURINARY: No dysuria, frequency, or change in urination. MUSCULOSKELETAL: No joint or muscle swelling or pain. No neck or back pain. SKIN: No rash NEUROLOGIC: No headache, vertigo, loss of consciousness, or change in strength/ sensation. ENDOCRINE: No increased thirst. No abnormal weight change HEMATOLOGIC/LYMPHATIC: No anemia, easy bleeding, or history of blood clots. ALLERGIC/IMMUNOLOGIC: No hives or skin allergy. 01/24/18 18:42 *Physical Exam - Vital Signs Last Vital Signs Temp Pulse Resp BP Pulse Ox 97.7 F 71 16 104/55 94 L 01/24/18 18:19 01/24/18 18:19 01/24/18 18:30 01/24/18 18:19 01/24/18 18:19 - Physical Exam Comments: 01/24/18 18:42 GENERAL: +Patient morbidly obese with trach collar. In distress upon arrival improved after collar inflated. Otherwise awake, alert, and fully oriented. HEAD: No signs of trauma, normocephalic, atraumatic EYES: PERRLA, EOMI, sclera anicteric, conjunctiva clear ENT: Auricles normal inspection, hearing grossly normal, nares patent, oropharynx clear without exudates. Moist mucosa NECK: Normal ROM, supple, no lymphadenopathy, JVD, or masses LUNGS: No distress, speaks full sentences, clear to auscultation bilaterally HEART: Regular rate and rhythm, normal S1 and S2, no murmurs, rubs or gallops, peripheral pulses normal and equal bilaterally. ABDOMEN: Soft, nontender, normoactive bowel sounds. No guarding, no rebound. No masses EXTREMITIES: Normal inspection, Normal range of motion, no edema. No clubbing or cyanosis. NEUROLOGICAL: Cranial nerves II through XII grossly intact. Normal speech, normal gait, no focal sensorimotor deficits SKIN: Warm, Dry, normal turgor, no rashes or lesions noted. ED Treatment Course - LABORATORY CBC & Chemistry Diagram: 01/24/18 20:20 01/24/18 20:20 - RADIOLOGY Radiology Studies Ordered: Category Date Time Status CHEST X-RAY PORTABLE* [RAD] Stat Radiology 01/24/18 18:09 Taken - Medications Given in the ED: ED Medications Discontinued Medications Generic Name Dose Route Start Last Admin Trade Name Freq PRN Reason Stop Dose Admin Albuterol/Ipratropium 1 amp 01/24/18 18:09 01/24/18 18:21 Duoneb - NEB 01/24/18 18:10 1 amp ONCE ONE Administration Medical Decision Making - Medical Decision Making 01/24/18 21:27 Ms. Osei is a 52 yo female w/ pmh as described who presents for evaluation of SOB / O2 desaturation improved with inflation of trach cuff. Patient labs grossly wnl as below. No concern for acute process at this time. Will ED obs and send home in morning as no night respiratory staff at care facility to accept patient. Laboratory Results - last 24 hr 01/24/18 01/24/18 01/24/18 19:20 20:20 20:20 WBC 6.7 RBC 3.69 Hgb 10.6 L Hct 33.3 MCV 90.2 MCH 28.6 MCHC 31.7 L RDW 13.2 Plt Count 198 D MPV 7.8 Absolute Neuts (auto) 5.4 Neutrophils % 80.3 Lymphocytes % 14.6 D Monocytes % 4.1 Eosinophils % 0.4 Basophils % 0.6 Nucleated RBC % 0 Sodium Cancelled 144 Potassium Cancelled 4.6 Chloride Cancelled 96 L Carbon Dioxide Cancelled 49 H Anion Gap Cancelled -1 L BUN Cancelled 13 Creatinine Cancelled 0.4 L Creat Clearance w eGFR Cancelled > 60 Random Glucose Cancelled 83 Calcium Cancelled 9.0 Total Bilirubin Cancelled 0.9 AST Cancelled 20 ALT Cancelled 25 Alkaline Phosphatase Cancelled 115 Total Protein Cancelled 6.7 Albumin Cancelled 3.0 L *DC/Admit/Observation/Transfer Diagnosis at time of Disposition: Respiratory disease - Discharge Dispostion Decision to Admit order: Yes - Referrals - Patient Instructions - Post Discharge Activity
[2018-01-24] MEDS ORDERED: hydrOXYzine HCL 10 MG TABLET PO ONE (19:41)
[2018-01-24] MEDS ORDERED: ALPRAZolam 0.25 MG TABLET PO ONE (19:41)
[2018-01-24] MEDS ORDERED: ALPRAZolam 0.25 MG TABLET ONE (19:47)
[2018-01-24 20:36] LABS: BASO % 0.6 % (0-2.0); EOS % 0.4 % (0-4.5); HEMATOCRIT 33.3 % (32.4-45.2); HEMOGLOBIN 10.6 GM/dL (10.7-15.3); LYMPH % 14.6 % (8-40); MCH 28.6 pg (25.7-33.7); MCHC 31.7 g/dl (32.0-36.0); MEAN CELL VOLUME 90.2 fl (80-96); MEAN PLT VOLUME 7.8 fl (7.5-11.1); MONO % 4.1 % (3.8-10.2); NEUT % 80.3 % (42.8-82.8); PLATELET COUNT 198 K/MM3 (134-434); RBC 3.69 M/mm3 (3.60-5.2); RDW 13.2 % (11.6-15.6); WHITE BLOOD COUNT 6.7 K/mm3 (4.0-10.0)
[2018-01-24 20:55] LABS: ALK PHOS 115 U/L (45-117); BILIRUBIN,TOTAL 0.9 mg/dL (0.2-1.0); BLOOD UREA NITROGEN 13 mg/dL (7-18); CHLORIDE 96 mmol/L (98-107); CREATININE 0.4 mg/dL (0.55-1.02); GLUCOSE,RANDOM 83 mg/dL (74-106); SGPT/ALT 25 U/L (12-78); SODIUM 144 mmol/L (136-145); TOT PROT 6.7 g/dl (6.4-8.2)
[2018-01-24 21:01] LABS: POTASSIUM 4.6 mmol/L (3.5-5.1)
[2018-01-24 21:02] LABS: SGOT/AST 20 U/L (15-37)
--- NOTE | 2018-01-24 21:23 | PDOC ---
Attending Attestation - HPI HPI: 01/24/18 21:42 The patient is a 52 year old female, from [facility], with a significant past medical history of morbid obesity, COPD, chronic hypercapnia, hypoxic respiratory failure, trach dependent (on vent at night and trach collar during the day), and CHF who presents to the ED with shortness of breath since earlier today. Patient comes into the ED with a low pulse ox, shortness of breath and the balloon on her vent deflated. Patient was seen in the ED and admitted to the hospital on 01/07/18. Denies any other symptoms. Documentation prepared by Lisa Lara, acting as medical education coordinator for Mary Hallman MD <Lisa Lara - Last Filed: 01/24/18 21:42> - Resident Resident Name: Leonardo Griffith - ED Attending Attestation I have performed the following: I have examined & evaluated the patient, The case was reviewed & discussed with the resident, I agree w/resident's findings & plan, Exceptions are as noted - HPI HPI: 01/24/18 21:21 52 yo female BIBA from the intermediate for low pulse ox, it was 72% with a good waveform -it was noted that the balloon on her trach collar was deflated -once the ballooon was inflated her pulse ox came up to mid 90's - Physicial Exam PE: 01/24/18 21:23 Morbidly obese 52 yo female w trach collar who is very anxious,she became anxious when the balloon on her trach collar was inflated 01/24/18 21:47 head ncat neck trach collar intact, balloon inflated now lungs no wheezing,no crackles,some scattered rhonchi cvs [id number] abd protuberant,nontender ext no erythema,no pitting edema neuro alert ,was speaking before trach balloon inflated psych anxious - Medical Decision Making 01/24/18 21:51 ekg inc RBBB ,NSR @ 69 bpm -no significant changes when compared to ekg from 01/09/18 01/24/18 23:50 labs reviewed ,cbc wnl chemistries reviewed 01/24/18 23:51 -there are no resp tech at the intermediate tonight and so pt will be monitored in ER and discharged in am <Mary Hallman - Last Filed: 01/24/18 23:51>
[2018-01-24 21:29] LABS: ANION GAP -1 (8-16); CO2 49 mmol/L (21-32)
[2018-01-24 22:52] LABS: ARTERIAL BLOOD GAS pH 7.46 (7.35-7.45)
[2018-01-24 22:54] LABS: ARTERIAL BLD GAS O2 SATURATION 92.7 % (90-98.9); ARTERIAL BLOOD GAS PO2 65.5 mmHg (80-100)
[2018-01-24 22:55] LABS: ALLENS TEST POSITIVE
[2018-01-24 22:57] LABS: ARTERIAL BLOOD GAS BASE EXCESS 20.2 meq/l (-2-2); ARTERIAL BLOOD GAS PCO2 66.5 mmHg (35-45)
--- NOTE | 2018-01-25 04:40 | PN ---
Teaching Attending Note Name of Resident: Сергей Del Angel ATTENDING PHYSICIAN STATEMENT I saw and evaluated the patient. I reviewed the resident's note and discussed the case with the resident. I agree with the resident's findings and plan as documented. 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 Patient comes into the ED with a low pulse oximetry, shortness of breath and the balloon on her tracheostomy was noted to be deflated. The baloon was reinflated and patient suctioned and her O2 saturation improved to 92%. OBJECTIVE: Obese, in no acute distress Vital Signs Period Temp Pulse Resp BP Sys/Petersen Pulse Ox Last 24 Hr 97.7 F 64-73 13-20 104/55 94-100 HEENT: Tracheostomy in place. Alopecia. Non verbal. No Jaundice, eye redness or discharge, PERRLA. Normocephalic, atraumatic. External ears are normal. No nasal discharge. Neck: Supple, nontender. No palpable adenopathy or thyromegaly. No JVD Chest: Good effort. Clear to auscultation and percussion. Heart: Regular. No S3, rub or murmur Abdomen: Not distended, soft, nontender and no HSM. No rebound or guarding. Normoactive bowel sounds. Ext: Peripheral pulses intact. No leg edema. Skin: Warm and dry. No petechiae, rash or ecchymosis. Neuro: Alert. Nonverbal. Moves all limbs. Home Medications Medication Instructions Recorded Acetaminophen 650 mg PO DAILY 10/18/17 Albuterol 2.5/Ipratropium 0.5 1 neb NEB Q4H 10/18/17 [Duoneb -] Albuterol Sulfate [Proair 90 mcg IH TID 10/18/17 Respiclick] Aripiprazole 5 mg PO DAILY 10/18/17 Aspirin 81 mg PO DAILY 10/18/17 Ergocalciferol (Vitamin D2) 50,000 unit PO WEEKLY 10/18/17 [Vitamin D2] Furosemide [Lasix -] 20 mg PO DAILY 10/18/17 Gabapentin 250 mg PO BID 10/18/17 Heparin Sod,Porcine/0.9 % NaCl 5,000 unit SCJ BID 10/18/17 [Heparin 5,000 Unit/1,000 ml-Ns] Insulin Lispro [Humalog] 0 unit SQ ASDIR 10/18/17 Lactobacillus Acidophilus 1 each PO BID 10/18/17 [Acidophilus] Levothyroxine [Synthroid -] 25 mcg PO DAILY 10/18/17 Mirtazapine 15 mg PO DAILY 10/18/17 Trazodone HCl 50 mg PO DAILY 10/18/17 Alprazolam [Xanax] 0.25 mg PO Q8H PRN #30 tablet MDD 3 01/18/18 Sennosides [Senna -] 2 tab PO HS tablet 01/18/18 Atorvastatin Ca [Lipitor] 20 mg PO HS 01/24/18 Budesonide/Formeterol Fumarate 1 inh PO BID 01/24/18 [SYMBICORT 160/4.5mcg -] Clotrimazole/Betamet Diprop 1 applic TP BID 01/24/18 [Lotrisone Cream (Small Tube)] Docusate Sodium [Colace] 100 mg PO DAILY 01/24/18 Escitalopram Oxalate [Lexapro -] 20 mg PO DAILY 01/24/18 Magnesium Hydroxide [Milk of 400 mg PO ASDIR PRN 01/24/18 Magnesia] Polyethylene Glycol 3350 [Gavilax] 17 gm PO DAILY 01/24/18 Vit A/Vitamin D3/E/Aloe V/Zinc 100 gm TP BID 01/24/18 [Periguard Ointment] hydrOXYzine HCL [Atarax -] 10 mg PO TID 01/24/18 Abnormal Lab Results 01/24/18 01/24/18 01/24/18 20:20 20:20 22:40 Hgb 10.6 L MCHC 31.7 L ABG pH 7.46 H ABG pCO2 at Pt Temp 66.5 H* ABG pO2 at Pt Temp 65.5 L ABG HCO3 47.2 H* ABG Base Excess 20.2 H* Chloride 96 L Carbon Dioxide 49 H Anion Gap -1 L Creatinine 0.4 L Albumin 3.0 L ASSESSMENT AND PLAN: 1. Acute hypoxia - CXR dose not show any significant new abnormality. Patient clearly ad acute hypoxia due to deflation (accidental) of the balloon of the tracheostomy. Now comfortable and not distressed and oxygenating well. Continue adequate tracheostomy care. Being discharged to the NH. 2. Polypharmacy - Will discuss with the NH and her PCP about reviewing her drug list to limit her to what is absolutely essential. 3. Hypoalbuminemia - Possibly due to combined effects of malnutrition and inflammation associated with comorbid chronic conditions. Will ensure adequate dietary protein intake and also consult edge worker. 4. Anemia - Do basic anemia work up including serial stool guaiacs, reticulocyte count and iron studies. Would benefit from Procrit therapy once iron replete. 5. Obesity - Will provide him all the necessary assistance, counseling and positive reinforcement to facilitate weight loss. Consult edge worker. 6. DVT prophylaxis - Heparin 5000u sq tid. 7. Advance directives - Full code
--- NOTE | 2018-01-25 04:59 | HP ---
CHIEF COMPLAINT: hypoxia PCP: HISTORY OF PRESENT ILLNESS: unable to obtain hx from patient, pt is trached. hx obtained from EMR chart review Per Dr. Griffith 01/24/18 18:34 Ms. Osei is a well known 52 yo female w/ pmh of CHF, chronic hypercapnia, hypoxic respiratory failure, COPD, seizure disorder, bipolar disorder, and trach dependency recently admitted 01/07-01/18 for pneumonia who presents from [facility] for evaluation of hypoxia noted at home. Upon arrival to ED tach color noted to be underinflated. Collar reinflated and patient suctioned - saturation increased to low 90's. The patient denies chest pain, headache and dizziness. Denies fever, chills, nausea, vomit, diarrhea and constipation. Denies dysuria, frequency, urgency and hematuria. Allergies: NKDA Social History: Former smoker. No reported alcohol or drug use. Surgical History: Trach PCP: Not on staff. Suicide/Smoking/Psychosocial Hx Smoking Status: No Smoking History: Former smoker Have you smoked in the past 12 months: No Number of Cigarettes Smoked Daily: 5 If you are a former smoker, when did you quit?: 2013 Information on smoking cessation initiated: No 'Breaking Loose' booklet given: 05/11/16 Hx Alcohol Use: No Drug/Substance Use Hx: No Substance Use Type: None Hx Substance Use Treatment: No ER course was notable for: (1) (2) (3) Recent Travel: PAST MEDICAL HISTORY: PAST SURGICAL HISTORY: Social History: Smoking: Alcohol: Drugs: Family History: Allergies No Known Allergies Allergy (Unverified 01/07/18 13:16) HOME MEDICATIONS: Home Medications Medication Instructions Recorded Acetaminophen 650 mg PO DAILY 10/18/17 Albuterol 2.5/Ipratropium 0.5 1 neb NEB Q4H 10/18/17 [Duoneb -] Albuterol Sulfate [Proair 90 mcg IH TID 10/18/17 Respiclick] Aripiprazole 5 mg PO DAILY 10/18/17 Aspirin 81 mg PO DAILY 10/18/17 Ergocalciferol (Vitamin D2) 50,000 unit PO WEEKLY 10/18/17 [Vitamin D2] Furosemide [Lasix -] 20 mg PO DAILY 10/18/17 Gabapentin 250 mg PO BID 10/18/17 Heparin Sod,Porcine/0.9 % NaCl 5,000 unit SCJ BID 10/18/17 [Heparin 5,000 Unit/1,000 ml-Ns] Insulin Lispro [Humalog] 0 unit SQ ASDIR 10/18/17 Lactobacillus Acidophilus 1 each PO BID 10/18/17 [Acidophilus] Levothyroxine [Synthroid -] 25 mcg PO DAILY 10/18/17 Mirtazapine 15 mg PO DAILY 10/18/17 Trazodone HCl 50 mg PO DAILY 10/18/17 Alprazolam [Xanax] 0.25 mg PO Q8H PRN #30 tablet MDD 3 01/18/18 Sennosides [Senna -] 2 tab PO HS tablet 01/18/18 Atorvastatin Ca [Lipitor] 20 mg PO HS 01/24/18 Budesonide/Formeterol Fumarate 1 inh PO BID 01/24/18 [SYMBICORT 160/4.5mcg -] Clotrimazole/Betamet Diprop 1 applic TP BID 01/24/18 [Lotrisone Cream (Small Tube)] Docusate Sodium [Colace] 100 mg PO DAILY 01/24/18 Escitalopram Oxalate [Lexapro -] 20 mg PO DAILY 01/24/18 Magnesium Hydroxide [Milk of 400 mg PO ASDIR PRN 01/24/18 Magnesia] Polyethylene Glycol 3350 [Gavilax] 17 gm PO DAILY 01/24/18 Vit A/Vitamin D3/E/Aloe V/Zinc 100 gm TP BID 01/24/18 [Periguard Ointment] hydrOXYzine HCL [Atarax -] 10 mg PO TID 01/24/18 REVIEW OF SYSTEMS unable to obtain PHYSICAL EXAMINATION Vital Signs - 24 hr 01/24/18 01/24/18 01/24/18 18:19 18:30 20:39 Temperature 97.7 F Pulse Rate 71 Pulse Rate [ 73 Apical] Respiratory 20 16 20 Rate Blood Pressure 104/55 O2 Sat by Pulse 94 L 100 Oximetry (%) 01/24/18 01/25/18 01/25/18 22:47 01:47 01:48 Temperature Pulse Rate 64 Pulse Rate [ 64 Apical] Respiratory 20 13 Rate Blood Pressure O2 Sat by Pulse 100 100 Oximetry (%) GENERAL: +Patient morbidly obese with trach collar. In distress upon arrival improved after collar inflated. Otherwise awake, alert, and fully oriented. HEAD: No signs of trauma, NCAT EYES: PERRLA, EOMI, sclera anicteric, conjunctiva clear ENT: hearing grossly normal, nares patent, oropharynx clear without exudates. MMM NECK: Normal ROM, supple, no lymphadenopathy, JVD, or masses LUNGS: CTAB HEART: RRR, normal S1 and S2, no murmurs, rubs or gallops, peripheral pulses normal and equal bilaterally. ABDOMEN: Soft, NTND, normoactive bowel sounds. No guarding, no rebound. No masses EXTREMITIES: Normal inspection, Normal range of motion, no edema. No clubbing or cyanosis. NEUROLOGICAL: Cranial nerves II through XII grossly intact. no focal sensorimotor deficits SKIN: Warm, Dry, normal turgor, no rashes or lesions noted. Laboratory Results - last 24 hr 01/24/18 01/24/18 01/24/18 19:20 20:20 20:20 WBC 6.7 RBC 3.69 Hgb 10.6 L Hct 33.3 MCV 90.2 MCH 28.6 MCHC 31.7 L RDW 13.2 Plt Count 198 D MPV 7.8 Absolute Neuts (auto) 5.4 Neutrophils % 80.3 Lymphocytes % 14.6 D Monocytes % 4.1 Eosinophils % 0.4 Basophils % 0.6 Nucleated RBC % 0 Anticoagulation Therapy Puncture Site ABG pH ABG pCO2 at Pt Temp ABG pO2 at Pt Temp ABG HCO3 ABG O2 Sat (Measured) ABG O2 Content ABG Base Excess Harris Test Methemoglobin O2 Delivery Device Oxygen Flow Rate Vent Mode Vent Rate Mechanical Rate Pressure Support Vent Sodium Cancelled 144 Potassium Cancelled 4.6 Chloride Cancelled 96 L Carbon Dioxide Cancelled 49 H Anion Gap Cancelled -1 L BUN Cancelled 13 Creatinine Cancelled 0.4 L Creat Clearance w eGFR Cancelled > 60 Random Glucose Cancelled 83 Calcium Cancelled 9.0 Total Bilirubin Cancelled 0.9 AST Cancelled 20 ALT Cancelled 25 Alkaline Phosphatase Cancelled 115 Total Protein Cancelled 6.7 Albumin Cancelled 3.0 L 01/24/18 22:40 WBC RBC Hgb Hct MCV MCH MCHC RDW Plt Count MPV Absolute Neuts (auto) Neutrophils % Lymphocytes % Monocytes % Eosinophils % Basophils % Nucleated RBC % Anticoagulation Therapy No Result Required. Puncture Site Left radial ABG pH 7.46 H ABG pCO2 at Pt Temp 66.5 H* ABG pO2 at Pt Temp 65.5 L ABG HCO3 47.2 H* ABG O2 Sat (Measured) 92.7 ABG O2 Content No Result Required. ABG Base Excess 20.2 H* Harris Test Positive Methemoglobin No Result Required. O2 Delivery Device No Result Required. Oxygen Flow Rate Vent Vent Mode No Result Required. Vent Rate No Result Required. Mechanical Rate No Result Required. Pressure Support Vent No Result Required. Sodium Potassium Chloride Carbon Dioxide Anion Gap BUN Creatinine Creat Clearance w eGFR Random Glucose Calcium Total Bilirubin AST ALT Alkaline Phosphatase Total Protein Albumin ASSESSMENT/PLAN: 52 yo female w/ pmh of CHF, chronic hypercapnia, hypoxic respiratory failure, COPD, seizure disorder, bipolar disorder, and trach dependency recently admitted 01/07-01/18 for pneumonia who presents from [facility] for evaluation of hypoxia SOB / O2 desaturation 2/2 deinflated trache cuff with subsequent improvement following reinflation of trach cuff. Patient labs grossly wnl as below. No concern for acute process at this time. #Acute hypoxia - CXR dose not show any significant new abnormality. Patient labs grossly wnl. Patient clearly had acute hypoxia due to deflation (accidental ) of the balloon of the tracheostomy. Now comfortable and not distressed and oxygenating well. Continue adequate tracheostomy care. Being discharged to the [facility]. #Polypharmacy -discuss with the [facility] and her PCP about reviewing her drug list to limit her to what is absolutely essential. -for now c/w home meds #Anemia - anemia work up including serial stool guaiacs, reticulocyte count and iron studies. #Obesity - Will provide him all the necessary assistance, counseling and positive reinforcement to facilitate weight loss. -Consult representative government relations. #DVT prophylaxis - SQH 5000u sq tid. #Will admit for obs and send home in morning as no night respiratory staff at care facility to accept patient. #Advance directives - Full code Visit type - Emergency Visit Emergency Visit: Yes ED Registration Date: 01/24/18 Care time: The patient presented to the Emergency Department on the above date and was hospitalized for further evaluation of their emergent condition. - New Patient This patient is new to me today: Yes Date on this admission: 01/25/18 - Critical Care Critical Care patient: No Hospitalist Screening - Colonoscopy Questionnaire Colonoscopy Questionnaire: Colonoscopy Questionnaire - Patient: 50 - 75 years old and never had a screening colonoscopy: Unknown History of colon or rectal polyps, or CA: Unknown History of IBD, Crohn's disease or UC: Unknown History of abdominal radiation therapy as a child: Unknown - Relative: 1 with colon or rectal CA, or polyps at age 60 or younger: Unknown Colon or rectal CA diagnosed at age 45 or younger: Unknown Multiple relatives with colon or rectal CA: Unknown - Outcome: Screening Result: Negative Screen
[2018-01-25] MEDS ORDERED: ACETAMINOPHEN 325 MG TABLET (FP) PO PRN (05:15)
[2018-01-25] MEDS: ALBUTEROL SO4 2.5/IPRATROPIUM 0.5 INH SOL 3 ML VIAL.NEB. NEB SCH ×5 (06:01→22:25)
[2018-01-25] MEDS ORDERED: ALBUTEROL SO4 2.5/IPRATROPIUM 0.5 INH SOL 3 ML VIAL.NEB. NEB ONE ×4 (06:02→18:02)
[2018-01-25] MEDS: hydrOXYzine HCL 10 MG TABLET PO SCH ×3 (06:28→22:26)
[2018-01-25] MEDS: HEPARIN NA (PORCINE) 5,000 UNITS/ML 1ML VIAL SQ SCH ×3 (06:56→22:24)
[2018-01-25] MEDS: ALBUTEROL SO4 8 GM HFA INHALER IH SCH ×3 (07:17→22:50)
[2018-01-25] MEDS ORDERED: LEVOTHYROXINE NA 25 MCG TABLET (FP) ONE (07:33)
[2018-01-25] MEDS: LEVOTHYROXINE NA 25 MCG TABLET (FP) PO SCH (07:37)
--- NOTE | 2018-01-25 08:59 | EKG ---
Test Reason : Blood Pressure : / mmHG Vent. Rate : 069 BPM Atrial Rate : 069 BPM P-R Int : 168 ms QRS Dur : 098 ms QT Int : 376 ms P-R-T Axes : 045 -11 036 degrees QTc Int : 402 ms POSSIBLE ATRIAL FLUTTER RHYTHM, THOUGH CANNOT EXCLUDE SINUS RHYTHM WITH TREMOR ARTIFACT. RECOMMEND REPEAT ECG WITH RHYTHM STRIP INCOMPLETE RIGHT BUNDLE BRANCH BLOCK BORDERLINE ECG Confirmed by ARYA DOMINGUEZ MD ([id number]) on 01/25/2018 8:58:55 AM Referred By: Confirmed By:ARYA DOMINGUEZ MD
[2018-01-25] MEDS ORDERED: ALPRAZolam 0.25 MG TABLET ONE (09:53)
[2018-01-25] MEDS: ALPRAZolam 0.25 MG TABLET PO PRN (09:56)
[2018-01-25] MEDS ORDERED: FUROSEMIDE 20 MG TABLET (FP) PO SCH (10:00)
[2018-01-25] MEDS: ARIPiprazole 5 MG TABLET (FP) PO SCH (10:02)
[2018-01-25] MEDS: ASPIRIN 81 MG CHEWABLE TABLETS PO SCH (10:02)
[2018-01-25] MEDS: DOCUSATE SODIUM 100 MG CAPSULE (FP) PO SCH ×2 (10:02→10:10)
[2018-01-25] MEDS: GABAPENTIN 250 MG/5 ML ORAL SOLUTION, 470 ML BOTTLE PO SCH ×2 (10:03→22:23)
[2018-01-25] MEDS: ESCITALOPRAM OXALATE 20 MG TABLET (FP) PO SCH (10:03)
[2018-01-25] MEDS: POLYETHYLENE GLYCOL 3350 119 GM BTL PO SCH (10:10)
[2018-01-25] MEDS: CLOTRIMAZOLE/BETAMET DIPROP 15 GM TUBE TP SCH ×2 (11:02→22:24)
[2018-01-25] MEDS: BUDESONIDE/FORMETEROL FUMARATE 160/4.5 mcg INHALER IH SCH ×2 (11:02→22:23)
--- NOTE | 2018-01-25 13:44 | PN ---
Progress Note (short form) - Note Progress Note: Vital Signs Temp 97.7 F 01/24/18 18:19 Pulse 64 01/25/18 11:40 Resp 20 01/25/18 11:40 BP 146/86 01/25/18 11:40 Pulse Ox 96 01/25/18 11:40 Intake & Output 01/24/18 01/25/18 01/25/18 23:59 11:59 23:59 Weight 300 lb Other: Height 5 ft Body Mass Index (BMI) 58.6 Weight Measurement Method Est/Stated by Patient Active Medications Acetaminophen (Tylenol -) 650 mg PO Q6H PRN PRN Reason: PAIN LEVEL 1-5 Albuterol Sulfate (Ventolin Hfa Inhaler -) 2 puff IH TID [facility] Last Admin: 01/25/18 07:17 Dose: Not Given Albuterol/Ipratropium (Duoneb -) 1 amp NEB Q4HPO [facility] Last Admin: 01/25/18 09:50 Dose: 1 amp Alprazolam (Xanax -) 0.25 mg PO Q8H PRN PRN Reason: ANXIETY Last Admin: 01/25/18 09:56 Dose: 0.25 mg Aripiprazole (Abilify) 5 mg PO DAILY [facility] Last Admin: 01/25/18 10:02 Dose: 5 mg Aspirin (Asa -) 81 mg PO DAILY [facility] Last Admin: 01/25/18 10:02 Dose: 81 mg Atorvastatin Calcium (Lipitor -) 20 mg PO HS [facility] Budesonide/Formoterol Fumarate (Symbicort 160/4.5mcg -) 1 puff IH BID [facility] Last Admin: 01/25/18 11:02 Dose: 1 puff Clotrimazole (Lotrisone Cream (Small Tube)) 1 applic TP BID [facility] Last Admin: 01/25/18 11:02 Dose: 1 applic Docusate Sodium (Colace -) 100 mg PO DAILY [facility] Last Admin: 01/25/18 10:10 Dose: Not Given Escitalopram Oxalate (Lexapro -) 20 mg PO DAILY [facility] Last Admin: 01/25/18 10:03 Dose: 20 mg Furosemide (Lasix Injection -) 40 mg IVPUSH DAILY [facility] Gabapentin (Neurontin Oral Liquid -) 250 mg PO BID [facility] Last Admin: 01/25/18 10:03 Dose: 250 mg Heparin Sodium (Porcine) (Heparin -) 5,000 unit SQ TID [facility] Last Admin: 01/25/18 06:56 Dose: 5,000 unit Hydroxyzine HCl (Atarax -) 10 mg PO TID [facility] Last Admin: 01/25/18 06:28 Dose: 10 mg Levothyroxine Sodium (Synthroid -) 25 mcg PO DAILY@0700 [facility] Last Admin: 01/25/18 07:37 Dose: 25 mcg Mirtazapine (Remeron -) 15 mg PO [facility] Polyethylene Glycol (Miralax (For Daily Use) -) 17 gm PO DAILY [facility] Last Admin: 01/25/18 10:10 Dose: Not Given Senna (Senna -) 2 tab PO [facility] Trazodone HCl (Desyrel -) 50 mg PO [facility] CBC, BMP 01/24/18 20:20 01/24/18 20:20 cxr-- worse-- congestive/infiltrative changes
--- NOTE | 2018-01-25 13:46 | PN ---
Progress Note (short form) - Note Progress Note: Pt well known to me from recent admissions brought again for sob. events noted now on 70 % oxygen-- trach collar no distress sat aroubnd 90 percent cxr- worsening congestive changes afebrile Vital Signs Temp 97.7 F 01/24/18 18:19 Pulse 64 01/25/18 11:40 Resp 20 01/25/18 11:40 BP 146/86 01/25/18 11:40 Pulse Ox 96 01/25/18 11:40 Intake & Output 01/24/18 01/25/18 01/25/18 23:59 11:59 23:59 Weight 300 lb Other: Height 5 ft Body Mass Index (BMI) 58.6 Weight Measurement Method Est/Stated by Patient Active Medications Acetaminophen (Tylenol -) 650 mg PO Q6H PRN PRN Reason: PAIN LEVEL 1-5 Albuterol Sulfate (Ventolin Hfa Inhaler -) 2 puff IH TID [facility] Last Admin: 01/25/18 07:17 Dose: Not Given Albuterol/Ipratropium (Duoneb -) 1 amp NEB Q4HPO [facility] Last Admin: 01/25/18 09:50 Dose: 1 amp Alprazolam (Xanax -) 0.25 mg PO Q8H PRN PRN Reason: ANXIETY Last Admin: 01/25/18 09:56 Dose: 0.25 mg Aripiprazole (Abilify) 5 mg PO DAILY [facility] Last Admin: 01/25/18 10:02 Dose: 5 mg Aspirin (Asa -) 81 mg PO DAILY [facility] Last Admin: 01/25/18 10:02 Dose: 81 mg Atorvastatin Calcium (Lipitor -) 20 mg PO [facility] Budesonide/Formoterol Fumarate (Symbicort 160/4.5mcg -) 1 puff IH BID [facility] Last Admin: 01/25/18 11:02 Dose: 1 puff Clotrimazole (Lotrisone Cream (Small Tube)) 1 applic TP BID [facility] Last Admin: 01/25/18 11:02 Dose: 1 applic Docusate Sodium (Colace -) 100 mg PO DAILY [facility] Last Admin: 01/25/18 10:10 Dose: Not Given Escitalopram Oxalate (Lexapro -) 20 mg PO DAILY [facility] Last Admin: 01/25/18 10:03 Dose: 20 mg Furosemide (Lasix Injection -) 40 mg IVPUSH DAILY [facility] Gabapentin (Neurontin Oral Liquid -) 250 mg PO BID [facility] Last Admin: 01/25/18 10:03 Dose: 250 mg Heparin Sodium (Porcine) (Heparin -) 5,000 unit SQ TID [facility] Last Admin: 01/25/18 06:56 Dose: 5,000 unit Hydroxyzine HCl (Atarax -) 10 mg PO TID [facility] Last Admin: 01/25/18 06:28 Dose: 10 mg Levothyroxine Sodium (Synthroid -) 25 mcg PO DAILY@0700 [facility] Last Admin: 01/25/18 07:37 Dose: 25 mcg Mirtazapine (Remeron -) 15 mg PO HS [facility] Polyethylene Glycol (Miralax (For Daily Use) -) 17 gm PO DAILY [facility] Last Admin: 01/25/18 10:10 Dose: Not Given Senna (Senna -) 2 tab PO HS [facility] Trazodone HCl (Desyrel -) 50 mg PO HS [facility] CBC, BMP 01/24/18 20:20 01/24/18 20:20 cxr -- worse Physical Awake. no distress neck- trach collar cvs- s1, s2 rrr abd =-soft ext - no edema lungs-crackles at bases a/p sob recent treatment with abx pulmonary / i/d consults discussed with Dr. Antunez Will give i/v lasix nebulizer vent at night time meds reviewed will follow Problem List - Problems (1) Respiratory disease Code(s): J98.9 - RESPIRATORY DISORDER, UNSPECIFIED (2) Acute on chronic respiratory failure with hypoxia and hypercapnia Code(s): J96.21 - ACUTE AND CHRONIC RESPIRATORY FAILURE WITH HYPOXIA; J96.22 - ACUTE AND CHRONIC RESPIRATORY FAILURE WITH HYPERCAPNIA (3) Morbid obesity Code(s): E66.01 - MORBID (SEVERE) OBESITY DUE TO EXCESS CALORIES (4) Tracheostomy dependence Code(s): Z93.0 - TRACHEOSTOMY STATUS
[2018-01-25] MEDS ORDERED: FUROSEMIDE 40 MG/4 ML INJECTABLE VIAL ONE (14:01)
--- NOTE | 2018-01-25 14:25 | PN ---
Progress Note (short form) - Note Progress Note: PULMONARY CONSULTATION DICTATED 01/25/18 IMP ACUTE ON CHRONIC HYPERCAPNEIC/HYPOXEMIC RESPIRATORY FAILURE CHF RECENT PNEUMONIA BILATERAL PLEURAL EFFUSIONS END STAGE COPD SEIZURES DEPRESSION MORBID OBESITY PLAN VENT SUPPORT AT NIGHT AND PRN,TRACH COLLAR DURING THE DAY TOLERATED LASIX ABX CULTURES TRACHEAL SUCTIONING DVT PROPHYLAXIS F/U CHEST X-RAYS DR STEELE Problem List - Problems (1) Acute on chronic respiratory failure with hypoxia and hypercapnia Code(s): J96.21 - ACUTE AND CHRONIC RESPIRATORY FAILURE WITH HYPOXIA; J96.22 - ACUTE AND CHRONIC RESPIRATORY FAILURE WITH HYPERCAPNIA (2) CHF (congestive heart failure) Code(s): I50.9 - HEART FAILURE, UNSPECIFIED (3) COPD exacerbation Code(s): J44.1 - CHRONIC OBSTRUCTIVE PULMONARY DISEASE W (ACUTE) EXACERBATION (4) Depression Code(s): F32.9 - MAJOR DEPRESSIVE DISORDER, SINGLE EPISODE, UNSPECIFIED (5) Diabetes Code(s): E11.9 - TYPE 2 DIABETES MELLITUS WITHOUT COMPLICATIONS (6) Pneumonia Code(s): J18.9 - PNEUMONIA, UNSPECIFIED ORGANISM (7) Tracheostomy dependence Code(s): Z93.0 - TRACHEOSTOMY STATUS (8) Morbid (severe) obesity due to excess calories Code(s): E66.01 - MORBID (SEVERE) OBESITY DUE TO EXCESS CALORIES
[2018-01-25] MEDS: FUROSEMIDE 40 MG/4 ML INJECTABLE VIAL IVPUSH SCH (14:45)
--- NOTE | 2018-01-25 16:37 | CONS ---
DATE OF CONSULTATION: 01/25/2018 PULMONARY CONSULTATION REFERRING PHYSICIAN: Josie Rojo MD HISTORY OF PRESENT ILLNESS: Patient is a 52-year-old white female known to me from previous hospitalization and past medical history of chronic hypercapnic hypoxemic respiratory failure currently maintained on tracheostomy collar during the day and vent support at night, seizure disorder, bipolar disorder, congestive heart failure, recently hospitalized at [facility] secondary to bilateral pneumonia, who was transferred back to [facility] who was doing well until earlier yesterday when she noticed increasing shortness of breath and hypoxemia. Patient apparently at the [facility] felt the above symptoms, and she was transferred to [facility] ER. In the emergency room, the patient was noted that the tracheostomy collar was underinflated. It was reinflated, and patient's was suctioned with improvement of O2 saturations in the low 90s. She underwent a chest x-ray which revealed increasing pulmonary vascular congestion. At the current time, she denies any chest pain. She does have increasing cough and chest congestion. She has a history of smoking, quit a few years ago. There is no history of occupational exposure to chemical fumes. PAST MEDICAL HISTORY: Again includes chronic hypercapnic hypoxemic respiratory failure on vent support at night and tracheostomy collar during the day, seizure disorder, congestive heart failure, bipolar, as well as recent bilateral pneumonia. SOCIAL HISTORY: Smoking, quit a few years ago. No occupational exposures. CURRENT MEDICATIONS: Include Symbicort 160/4.5, Tylenol, heparin, Neurontin, Lexapro, Remeron, Desyrel, Lotrisone, Abilify, Atarax, Xanax, albuterol HFA, DuoNeb, Colace, MiraLAX, Senna, Lipitor, Lasix, aspirin, and Synthroid. REVIEW OF SYSTEMS: Positive for shortness of breath. Positive for chest congestion. No chest pain. No palpitation. No fever. No chills. No hemoptysis. No abdominal pain. Has lower extremity edema. PHYSICAL EXAMINATION: General: Patient is an obese female, wide awake, alert, on tracheostomy collar, mildly dyspneic, but no acute distress. Vital Signs: She is currently afebrile, blood pressure is 146/86, respiratory rate is 20, and O2 saturation is 96% on 70% tracheostomy collar. HEENT: Exam is normocephalic, atraumatic. Neck: Supple. Heart: Regular, S1, S2. Chest: Bilateral rhonchi throughout. Abdomen: Soft. Bowel sounds positive. Extremities: No cyanosis. Edema. LABORATORIES: WBC is 6.7, hemoglobin 10.6, hematocrit 33.3, platelet count 198,000. Blood gas with pH 7.46, PCO2 is 66, PO2 of 65, bicarbonate is 47, saturation of 92.7. Chest x-ray reveals increasing pulmonary vascular congestion bilaterally. IMPRESSION: Acute on chronic hypoxemic hypercapnic respiratory failure secondary to: 1. Mild congestive heart failure. 2. Recent pneumonia. 3. Obesity. 4. Advanced chronic obstructive pulmonary disease. 5. Bipolar. 6. Sleep disorder. PLAN: Continue tracheostomy collar as well as vent support at night. Lasix. Supplemental O2. Monitor blood gas. Followup chest x-ray. Antibiotics as per Infectious Disease. Sputum for C and S. Pulmonary toilet. Frequent tracheal suctioning. Inhaled bronchodilators. LORA STEELE M.D. PRABHA/[id number]
[2018-01-25] MEDS: SENNOSIDES 8.6MG TABLET (FP) PO SCH (22:24)
[2018-01-25] MEDS: MIRTAZAPINE 15 MG TABLET (FP) PO SCH (22:25)
[2018-01-25] MEDS: traZODone HCL 50 MG TABLET (FP) PO SCH (22:25)
[2018-01-25] MEDS: ATORVASTATIN CA 20 MG TABLET (FP) PO SCH (22:25)
[2018-01-26] MEDS: ALBUTEROL SO4 2.5/IPRATROPIUM 0.5 INH SOL 3 ML VIAL.NEB. NEB SCH ×6 (02:01→22:03)
[2018-01-26] MEDS: ALPRAZolam 0.25 MG TABLET PO PRN ×2 (05:45→21:07)
[2018-01-26] MEDS: hydrOXYzine HCL 10 MG TABLET PO SCH ×3 (05:45→21:07)
[2018-01-26] MEDS: HEPARIN NA (PORCINE) 5,000 UNITS/ML 1ML VIAL SQ SCH ×4 (05:46→22:53)
[2018-01-26] MEDS: LEVOTHYROXINE NA 25 MCG TABLET (FP) PO SCH (06:09)
[2018-01-26] MEDS: ALBUTEROL SO4 8 GM HFA INHALER IH SCH ×4 (06:38→15:18)
[2018-01-26] MEDS ORDERED: PT OWN MED DRAWER 7, Y5N ONE (09:45)
[2018-01-26] MEDS: ESCITALOPRAM OXALATE 20 MG TABLET (FP) PO SCH (09:50)
[2018-01-26] MEDS: FUROSEMIDE 40 MG/4 ML INJECTABLE VIAL IVPUSH SCH (09:50)
[2018-01-26] MEDS: ARIPiprazole 5 MG TABLET (FP) PO SCH (09:51)
[2018-01-26] MEDS: BUDESONIDE/FORMETEROL FUMARATE 160/4.5 mcg INHALER IH SCH ×2 (09:51→21:09)
[2018-01-26] MEDS: ASPIRIN 81 MG CHEWABLE TABLETS PO SCH (09:53)
[2018-01-26] MEDS: GABAPENTIN 250 MG/5 ML ORAL SOLUTION, 470 ML BOTTLE PO SCH ×2 (09:53→22:54)
[2018-01-26] MEDS: DOCUSATE SODIUM 100 MG CAPSULE (FP) PO SCH (10:14)
[2018-01-26] MEDS: POLYETHYLENE GLYCOL 3350 119 GM BTL PO SCH (10:14)
[2018-01-26] MEDS ORDERED: ACETAMINOPHEN 325 MG TABLET (FP) PO ONE (10:45)
[2018-01-26] MEDS: CLOTRIMAZOLE/BETAMET DIPROP 15 GM TUBE TP SCH ×2 (10:45→23:50)
--- NOTE | 2018-01-26 12:27 | PN ---
Progress Note, Physician Chief Complaint: SOB secretions+ - Current Medication List Current Medications: Active Medications Acetaminophen (Tylenol -) 650 mg PO Q4H PRN PRN Reason: PAIN LEVEL 1-5 Albuterol Sulfate (Ventolin Hfa Inhaler -) 2 puff IH TID [facility] Last Admin: 01/26/18 06:46 Dose: 2 puff Albuterol/Ipratropium (Duoneb -) 1 amp NEB Q4HPO [facility] Last Admin: 01/26/18 10:00 Dose: 1 amp Alprazolam (Xanax -) 0.25 mg PO Q8H PRN PRN Reason: ANXIETY Last Admin: 01/26/18 05:45 Dose: 0.25 mg Aripiprazole (Abilify) 5 mg PO DAILY [facility] Last Admin: 01/26/18 09:51 Dose: 5 mg Aspirin (Asa -) 81 mg PO DAILY [facility] Last Admin: 01/26/18 09:53 Dose: 81 mg Atorvastatin Calcium (Lipitor -) 20 mg PO HS [facility] Last Admin: 01/25/18 22:25 Dose: 20 mg Budesonide/Formoterol Fumarate (Symbicort 160/4.5mcg -) 1 puff IH BID [facility] Last Admin: 01/26/18 09:51 Dose: 1 puff Clotrimazole (Lotrisone Cream (Small Tube)) 1 applic TP BID [facility] Last Admin: 01/26/18 10:45 Dose: 1 applic Docusate Sodium (Colace -) 100 mg PO DAILY [facility] Last Admin: 01/26/18 10:14 Dose: Not Given Escitalopram Oxalate (Lexapro -) 20 mg PO DAILY [facility] Last Admin: 01/26/18 09:50 Dose: 20 mg Furosemide (Lasix Injection -) 40 mg IVPUSH DAILY [facility] Last Admin: 01/26/18 09:50 Dose: 40 mg Gabapentin (Neurontin Oral Liquid -) 250 mg PO BID [facility] Last Admin: 01/26/18 09:53 Dose: 250 mg Heparin Sodium (Porcine) (Heparin -) 5,000 unit SQ TID [facility] Last Admin: 01/26/18 05:46 Dose: 5,000 unit Hydroxyzine HCl (Atarax -) 10 mg PO TID [facility] Last Admin: 01/26/18 05:45 Dose: 10 mg Levothyroxine Sodium (Synthroid -) 25 mcg PO DAILY@0700 [facility] Last Admin: 01/26/18 06:09 Dose: 25 mcg Mirtazapine (Remeron -) 15 mg PO [facility] Last Admin: 01/25/18 22:25 Dose: 15 mg Polyethylene Glycol (Miralax (For Daily Use) -) 17 gm PO DAILY [facility] Last Admin: 01/26/18 10:14 Dose: Not Given Senna (Senna -) 2 tab PO [facility] Last Admin: 01/25/18 22:24 Dose: 2 tab Trazodone HCl (Desyrel -) 50 mg PO [facility] Last Admin: 01/25/18 22:25 Dose: 50 mg - Objective Vital Signs: Vital Signs Temperature 98.4 F 01/26/18 05:00 Pulse Rate 78 01/26/18 05:00 Respiratory Rate 21 01/26/18 05:25 Blood Pressure 104/49 01/26/18 05:00 O2 Sat by Pulse Oximetry (%) 97 01/25/18 22:00 Constitutional: Yes: No Distress Cardiovascular: Yes: Regular Rate and Rhythm Respiratory: Yes: Diminished, Mechanically Ventilated Gastrointestinal: Yes: Normal Bowel Sounds, Soft, Abdomen, Obese. No: Tenderness Edema: No Labs: CBC, BMP 01/24/18 20:20 01/24/18 20:20 Problem List - Problems (1) Morbid (severe) obesity due to excess calories Code(s): E66.01 - MORBID (SEVERE) OBESITY DUE TO EXCESS CALORIES (2) Respiratory disease Code(s): J98.9 - RESPIRATORY DISORDER, UNSPECIFIED (3) Acute on chronic respiratory failure with hypoxia and hypercapnia Code(s): J96.21 - ACUTE AND CHRONIC RESPIRATORY FAILURE WITH HYPOXIA; J96.22 - ACUTE AND CHRONIC RESPIRATORY FAILURE WITH HYPERCAPNIA (4) Acute respiratory failure Code(s): J96.00 - ACUTE RESPIRATORY FAILURE, UNSP W HYPOXIA OR HYPERCAPNIA Qualifiers: Respiratory failure complication: hypoxia Qualified Code(s): J96.01 - Acute respiratory failure with hypoxia (5) CHF (congestive heart failure) Code(s): I50.9 - HEART FAILURE, UNSPECIFIED Assessment/Plan PLAN ID eval for antibiotics if needed frequent suctioning iv Lasix Vent management Pulmonary follow u Heparin sc for DVT prophylaxis
--- NOTE | 2018-01-26 12:52 | PN ---
Progress Note (short form) - Note Progress Note: Awake and alert on AC Mode of vent. Noted periods of desaturation requiring increased FiO2. Currently vented on 60% FiO2. Intake & Output 01/23/18 01/24/18 01/25/18 01/26/18 23:59 23:59 23:59 23:59 Intake Total 315 Balance 315 Weight 300 lb 300 lb Last Vital Signs Temp Pulse Resp BP Pulse Ox 98.4 F 78 16 104/49 97 01/26/18 05:00 01/26/18 05:00 01/26/18 12:38 01/26/18 05:00 01/25/18 22:00 Active Medications Acetaminophen (Tylenol -) 650 mg PO Q4H PRN PRN Reason: PAIN LEVEL 1-5 Albuterol Sulfate (Ventolin Hfa Inhaler -) 2 puff IH TID [facility] Last Admin: 01/26/18 06:46 Dose: 2 puff Albuterol/Ipratropium (Duoneb -) 1 amp NEB Q4HPO [facility] Last Admin: 01/26/18 10:00 Dose: 1 amp Alprazolam (Xanax -) 0.25 mg PO Q8H PRN PRN Reason: ANXIETY Last Admin: 01/26/18 05:45 Dose: 0.25 mg Aripiprazole (Abilify) 5 mg PO DAILY [facility] Last Admin: 01/26/18 09:51 Dose: 5 mg Aspirin (Asa -) 81 mg PO DAILY [facility] Last Admin: 01/26/18 09:53 Dose: 81 mg Atorvastatin Calcium (Lipitor -) 20 mg PO HS [facility] Last Admin: 01/25/18 22:25 Dose: 20 mg Budesonide/Formoterol Fumarate (Symbicort 160/4.5mcg -) 1 puff IH BID [facility] Last Admin: 01/26/18 09:51 Dose: 1 puff Clotrimazole (Lotrisone Cream (Small Tube)) 1 applic TP BID [facility] Last Admin: 01/26/18 10:45 Dose: 1 applic Docusate Sodium (Colace -) 100 mg PO DAILY [facility] Last Admin: 01/26/18 10:14 Dose: Not Given Escitalopram Oxalate (Lexapro -) 20 mg PO DAILY [facility] Last Admin: 01/26/18 09:50 Dose: 20 mg Furosemide (Lasix Injection -) 40 mg IVPUSH DAILY [facility] Last Admin: 01/26/18 09:50 Dose: 40 mg Gabapentin (Neurontin Oral Liquid -) 250 mg PO BID [facility] Last Admin: 01/26/18 09:53 Dose: 250 mg Heparin Sodium (Porcine) (Heparin -) 5,000 unit SQ TID [facility] Last Admin: 01/26/18 05:46 Dose: 5,000 unit Hydroxyzine HCl (Atarax -) 10 mg PO TID [facility] Last Admin: 01/26/18 05:45 Dose: 10 mg Piperacillin Sod/Tazobactam (Sod 4.5 gm/ Dextrose) 100 mls @ 200 mls/hr IVPB ONCE ONE; Protocol Stop: 01/26/18 12:57 Levothyroxine Sodium (Synthroid -) 25 mcg PO DAILY@0700 [facility] Last Admin: 01/26/18 06:09 Dose: 25 mcg Mirtazapine (Remeron -) 15 mg PO HS [facility] Last Admin: 01/25/18 22:25 Dose: 15 mg Polyethylene Glycol (Miralax (For Daily Use) -) 17 gm PO DAILY [facility] Last Admin: 01/26/18 10:14 Dose: Not Given Senna (Senna -) 2 tab PO HS [facility] Last Admin: 01/25/18 22:24 Dose: 2 tab Trazodone HCl (Desyrel -) 50 mg PO HS [facility] Last Admin: 01/25/18 22:25 Dose: 50 mg HEENT: Tracheostomy in place. Alopecia. No Jaundice. Neck: Trach intact. No JVD Chest: Vented. Diminished at the bases. Scattered rhonchi. Heart: Regular. No S3, rub or murmur Abdomen: Not distended, soft, nontender and no HSM. No rebound or guarding. Normoactive bowel sounds. Ext: Peripheral pulses intact. No leg edema. Skin: Warm and dry. No petechiae, rash or ecchymosis. Neuro: Non-focal Laboratory Results - last 24 hr 01/25/18 01/26/18 20:30 06:15 Ferritin 106.2 B-Natriuretic Peptide 79.12 Problem List - Problems (1) Acute on chronic respiratory failure with hypoxia and hypercapnia Code(s): J96.21 - ACUTE AND CHRONIC RESPIRATORY FAILURE WITH HYPOXIA; J96.22 - ACUTE AND CHRONIC RESPIRATORY FAILURE WITH HYPERCAPNIA (2) CHF (congestive heart failure) Code(s): I50.9 - HEART FAILURE, UNSPECIFIED (3) COPD exacerbation Code(s): J44.1 - CHRONIC OBSTRUCTIVE PULMONARY DISEASE W (ACUTE) EXACERBATION (4) Depression Code(s): F32.9 - MAJOR DEPRESSIVE DISORDER, SINGLE EPISODE, UNSPECIFIED (5) Diabetes Code(s): E11.9 - TYPE 2 DIABETES MELLITUS WITHOUT COMPLICATIONS (6) Pneumonia Code(s): J18.9 - PNEUMONIA, UNSPECIFIED ORGANISM (7) Tracheostomy dependence Code(s): Z93.0 - TRACHEOSTOMY STATUS (8) Morbid (severe) obesity due to excess calories Code(s): E66.01 - MORBID (SEVERE) OBESITY DUE TO EXCESS CALORIES IMP ACUTE ON CHRONIC HYPERCAPNEIC/HYPOXEMIC RESPIRATORY FAILURE CHF RECENT PNEUMONIA BILATERAL PLEURAL EFFUSIONS END STAGE COPD SEIZURES DEPRESSION MORBID OBESITY PLAN VENT SUPPORT: TRACH COLLAR ONLY WHEN FIOS2 REQUIREMENTS ARE 60% AND BELOW LASIX ABX FOLLOW CULTURES TRACHEAL SUCTIONING DVT PROPHYLAXIS DR GERMAIN
--- NOTE | 2018-01-26 13:44 | PN ---
Progress Note (short form) - Note Progress Note: ID Full note dictated Known from recent admission for PNA Rx with Cefepime Arboleda resistant Acintobacter cultured from trach We did not treat this and assume its colonization. Selected Entries 01/26/18 05:00 Temperature 98.4 F Pulse Rate 78 Respiratory 22 Rate Blood Pressure 104/49 Laboratory Tests 01/24/18 01/24/18 01/24/18 20:20 20:20 22:40 WBC 6.7 RBC 3.69 Plt Count 198 D ABG pCO2 at Pt Temp 66.5 H* ABG HCO3 47.2 H* Total Bilirubin 0.9 Alkaline Phosphatase 115 Assessment Acute and chronic respiratory failure with trach Doubt pneumonia clinically MDRO Acintobacter colonization very resistant Plan Maintain contact isolation and reculture trach Bryan BARKLEY Problem List - Problems (1) Morbid (severe) obesity due to excess calories Code(s): E66.01 - MORBID (SEVERE) OBESITY DUE TO EXCESS CALORIES (2) Acute on chronic respiratory failure with hypoxia and hypercapnia Code(s): J96.21 - ACUTE AND CHRONIC RESPIRATORY FAILURE WITH HYPOXIA; J96.22 - ACUTE AND CHRONIC RESPIRATORY FAILURE WITH HYPERCAPNIA (3) Pneumonia Code(s): J18.9 - PNEUMONIA, UNSPECIFIED ORGANISM
[2018-01-26] MEDS: ACETAMINOPHEN 325 MG TABLET (FP) PO PRN ×2 (14:43→21:07)
--- NOTE | 2018-01-26 14:54 | CONS ---
INFECTIOUS DISEASE CONSULTATION DATE OF CONSULTATION: DATE OF DICTATION: 01/26/2018 HISTORY OF PRESENT ILLNESS: This is a 52-year-old female with many admissions for chronic hypercapnic, hypoxemic respiratory failure. She has a tracheostomy in place for some time and had been recently discharged from the hospital; at which time, I had seen for her treatment of pneumonia. She was empirically treated with cefepime at that time for approximately 1 week and subsequently grew a multidrug-resistant acinetobacter from a respiratory culture. Because of her marked clinical improvement, we assumed this may have represented colonization of the tracheostomy and did not attempt to provide antibiotic treatment. She went home, doing well, and returns now from [facility] where she was noted once again to be short of breath and hypoxemic. She had no fever here, and a normal white count, and I am asked to see her regarding the need for antibiotic management. She does not have any cough, congestion, fever, chills or other systemic complaints. PAST MEDICAL HISTORY: As noted above. MEDICATIONS: Symbicort, Neurontin, Lexapro, Remeron, Desyrel, Abilify, Atarax, albuterol, DuoNeb, Lipitor, aspirin, Synthroid, Lasix. ALLERGIES: None known. SOCIAL HISTORY: A former smoker. No history of substance abuse. FAMILY HISTORY: Reviewed and noncontributory. REVIEW OF SYSTEMS: Respiratory: Chronic respiratory failure with a tracheostomy. Cardiac: No history of chest pain, palpitations. Gastrointestinal: No abdominal pain, nausea, vomiting, diarrhea. Genitourinary: No dysuria or hematuria. PHYSICAL EXAMINATION: General: On physical exam, she was a heavy-set woman, weighing 300 pounds. She appeared in no acute distress. Vital signs: Temperature 98.4, pulse 78, blood pressure 104/49, respirations 22. Neck: Supple with a tracheostomy. Lungs: Bilateral rhonchi. Heart: S1, S2. Regular rhythm without murmur. Abdomen: Not distended. Soft. Nontender. No hepatosplenomegaly, guarding, rebound. Extremities: No clubbing, cyanosis or edema. LABORATORY DATA: The BUN was 13, creatinine 0.4. Liver enzymes within normal limits. White count 6.7, hemoglobin 10.6, platelets are 198. AB.46/66/65. IMAGING: Chest x-ray was reviewed, shows some pulmonary vascular congestion with a large heart and a tracheostomy tube. ASSESSMENT: 1. Acute on chronic respiratory failure with exacerbation. 2. Recent pneumonia treated with a week of cefepime. 3. Tracheal colonization of acinetobacter, panresistant. PLAN: At this time, I would not give any antibiotics. I would obtain a sputum culture for interest to see if her tracheostomy might still be colonized with acinetobacter; probably it is. Lastly, would discontinue current Zosyn order and maintain strict isolation for a multidrug-resistant organism. SHANITA NEW M.D. ANJALI/[id number]
[2018-01-26] MEDS ORDERED: PIPERACILLIN/TAZOB 4.5 GM 4.5 GM in DEXTROSE 5%-WATER 100 ML IVPB ONE (15:30)
[2018-01-26] MEDS: SENNOSIDES 8.6MG TABLET (FP) PO SCH (21:07)
[2018-01-26] MEDS: MIRTAZAPINE 15 MG TABLET (FP) PO SCH (21:07)
[2018-01-26] MEDS: traZODone HCL 50 MG TABLET (FP) PO SCH (21:07)
[2018-01-26] MEDS: ATORVASTATIN CA 20 MG TABLET (FP) PO SCH (21:07)
[2018-01-27] MEDS: ALBUTEROL SO4 2.5/IPRATROPIUM 0.5 INH SOL 3 ML VIAL.NEB. NEB SCH ×6 (01:37→21:04)
[2018-01-27] MEDS: HEPARIN NA (PORCINE) 5,000 UNITS/ML 1ML VIAL SQ SCH ×3 (05:18→22:19)
[2018-01-27] MEDS: ALBUTEROL SO4 8 GM HFA INHALER IH SCH ×2 (05:54→17:19)
[2018-01-27] MEDS: hydrOXYzine HCL 10 MG TABLET PO SCH ×3 (05:55→22:20)
[2018-01-27] MEDS: LEVOTHYROXINE NA 25 MCG TABLET (FP) PO SCH (06:20)
[2018-01-27 08:26] LABS: SERUM IRON SATURATION 16 % (15-55); TOTAL IRON BINDING CAPACITY 312 ug/dL (250-450); UIBC 262 ug/dL (131-425)
[2018-01-27] MEDS: ARIPiprazole 5 MG TABLET (FP) PO SCH (11:00)
[2018-01-27] MEDS ORDERED: PT OWN MED DRAWER 7, Y5N ONE ×2 (11:21→22:17)
[2018-01-27] MEDS: BUDESONIDE/FORMETEROL FUMARATE 160/4.5 mcg INHALER IH SCH ×2 (11:34→22:21)
[2018-01-27] MEDS: ACETAMINOPHEN 325 MG TABLET (FP) PO PRN ×2 (11:34→22:19)
[2018-01-27] MEDS: FUROSEMIDE 40 MG/4 ML INJECTABLE VIAL IVPUSH SCH (11:39)
[2018-01-27] MEDS: ASPIRIN 81 MG CHEWABLE TABLETS PO SCH (11:40)
[2018-01-27] MEDS: ESCITALOPRAM OXALATE 20 MG TABLET (FP) PO SCH (11:40)
[2018-01-27] MEDS: DOCUSATE SODIUM 100 MG CAPSULE (FP) PO SCH (11:40)
[2018-01-27] MEDS: GABAPENTIN 250 MG/5 ML ORAL SOLUTION, 470 ML BOTTLE PO SCH ×2 (11:43→22:20)
[2018-01-27] MEDS: CLOTRIMAZOLE/BETAMET DIPROP 15 GM TUBE TP SCH ×2 (11:43→22:00)
[2018-01-27] MEDS: POLYETHYLENE GLYCOL 3350 119 GM BTL PO SCH (11:43)
--- NOTE | 2018-01-27 12:11 | PN ---
Progress Note, Physician Chief Complaint: SOB secretions+ has to be placed on vent for longer periods of time Can not tolerate trach collar - Current Medication List Current Medications: Active Medications Acetaminophen (Tylenol -) 650 mg PO Q4H PRN PRN Reason: PAIN LEVEL 1-5 Last Admin: 01/27/18 11:34 Dose: 650 mg Albuterol Sulfate (Ventolin Hfa Inhaler -) 2 puff IH TID [facility] Last Admin: 01/27/18 05:54 Dose: Not Given Albuterol/Ipratropium (Duoneb -) 1 amp NEB Q4HPO [facility] Last Admin: 01/27/18 09:30 Dose: 1 amp Alprazolam (Xanax -) 0.25 mg PO Q8H PRN PRN Reason: ANXIETY Last Admin: 01/26/18 21:07 Dose: 0.25 mg Aripiprazole (Abilify) 5 mg PO DAILY [facility] Last Admin: 01/27/18 11:00 Dose: 5 mg Aspirin (Asa -) 81 mg PO DAILY [facility] Last Admin: 01/27/18 11:40 Dose: 81 mg Atorvastatin Calcium (Lipitor -) 20 mg PO HS [facility] Last Admin: 01/26/18 21:07 Dose: 20 mg Budesonide/Formoterol Fumarate (Symbicort 160/4.5mcg -) 1 puff IH BID [facility] Last Admin: 01/27/18 11:34 Dose: 1 puff Clotrimazole (Lotrisone Cream (Small Tube)) 1 applic TP BID [facility] Last Admin: 01/27/18 11:43 Dose: 1 applic Docusate Sodium (Colace -) 100 mg PO DAILY [facility] Last Admin: 01/27/18 11:40 Dose: 100 mg Escitalopram Oxalate (Lexapro -) 20 mg PO DAILY [facility] Last Admin: 01/27/18 11:40 Dose: 20 mg Furosemide (Lasix Injection -) 40 mg IVPUSH DAILY [facility] Last Admin: 01/27/18 11:39 Dose: 40 mg Gabapentin (Neurontin Oral Liquid -) 250 mg PO BID [facility] Last Admin: 01/27/18 11:43 Dose: 250 mg Heparin Sodium (Porcine) (Heparin -) 5,000 unit SQ TID [facility] Last Admin: 01/27/18 05:18 Dose: Not Given Hydroxyzine HCl (Atarax -) 10 mg PO TID [facility] Last Admin: 01/27/18 05:55 Dose: 10 mg Levothyroxine Sodium (Synthroid -) 25 mcg PO DAILY@0700 [facility] Last Admin: 01/27/18 06:20 Dose: 25 mcg Mirtazapine (Remeron -) 15 mg PO [facility] Last Admin: 01/26/18 21:07 Dose: 15 mg Polyethylene Glycol (Miralax (For Daily Use) -) 17 gm PO DAILY [facility] Last Admin: 01/27/18 11:43 Dose: Not Given Senna (Senna -) 2 tab PO [facility] Last Admin: 01/26/18 21:07 Dose: 2 tab Trazodone HCl (Desyrel -) 50 mg PO [facility] Last Admin: 01/26/18 21:07 Dose: 50 mg - Objective Vital Signs: Vital Signs Temperature 98.6 F 01/27/18 06:00 Pulse Rate 65 01/27/18 09:03 Respiratory Rate 23 01/27/18 12:08 Blood Pressure 117/72 01/27/18 06:00 O2 Sat by Pulse Oximetry (%) 93 L 01/27/18 09:03 Constitutional: Yes: No Distress Cardiovascular: Yes: Regular Rate and Rhythm Respiratory: Yes: Diminished, Mechanically Ventilated Gastrointestinal: Yes: Normal Bowel Sounds, Soft, Abdomen, Obese. No: Tenderness Edema: No Labs: CBC, BMP 01/24/18 20:20 01/24/18 20:20 Problem List - Problems (1) Morbid (severe) obesity due to excess calories Code(s): E66.01 - MORBID (SEVERE) OBESITY DUE TO EXCESS CALORIES (2) Respiratory disease Code(s): J98.9 - RESPIRATORY DISORDER, UNSPECIFIED (3) Acute on chronic respiratory failure with hypoxia and hypercapnia Code(s): J96.21 - ACUTE AND CHRONIC RESPIRATORY FAILURE WITH HYPOXIA; J96.22 - ACUTE AND CHRONIC RESPIRATORY FAILURE WITH HYPERCAPNIA (4) Acute respiratory failure Code(s): J96.00 - ACUTE RESPIRATORY FAILURE, UNSP W HYPOXIA OR HYPERCAPNIA Qualifiers: Respiratory failure complication: hypoxia Qualified Code(s): J96.01 - Acute respiratory failure with hypoxia (5) CHF (congestive heart failure) Code(s): I50.9 - HEART FAILURE, UNSPECIFIED (6) Diabetes Code(s): E11.9 - TYPE 2 DIABETES MELLITUS WITHOUT COMPLICATIONS Assessment/Plan PLAN ID jeanette noted-- no antibiotics for now frequent suctioning iv Lasix Vent management She will need more hours of vent support Heparin sc for DVT prophylaxis
--- NOTE | 2018-01-27 13:30 | PN ---
Progress Note, Physician History of Present Illness: pulmonary alert,on vent support,ac mode ,-resp distress,+ c/o chest tightness - Current Medication List Current Medications: Active Medications Acetaminophen (Tylenol -) 650 mg PO Q4H PRN PRN Reason: PAIN LEVEL 1-5 Last Admin: 01/27/18 11:34 Dose: 650 mg Albuterol Sulfate (Ventolin Hfa Inhaler -) 2 puff IH TID [facility] Last Admin: 01/27/18 05:54 Dose: Not Given Albuterol/Ipratropium (Duoneb -) 1 amp NEB Q4HPO [facility] Last Admin: 01/27/18 09:30 Dose: 1 amp Alprazolam (Xanax -) 0.25 mg PO Q8H PRN PRN Reason: ANXIETY Last Admin: 01/26/18 21:07 Dose: 0.25 mg Aripiprazole (Abilify) 5 mg PO DAILY [facility] Last Admin: 01/27/18 11:00 Dose: 5 mg Aspirin (Asa -) 81 mg PO DAILY [facility] Last Admin: 01/27/18 11:40 Dose: 81 mg Atorvastatin Calcium (Lipitor -) 20 mg PO HS [facility] Last Admin: 01/26/18 21:07 Dose: 20 mg Budesonide/Formoterol Fumarate (Symbicort 160/4.5mcg -) 1 puff IH BID [facility] Last Admin: 01/27/18 11:34 Dose: 1 puff Clotrimazole (Lotrisone Cream (Small Tube)) 1 applic TP BID [facility] Last Admin: 01/27/18 11:43 Dose: 1 applic Docusate Sodium (Colace -) 100 mg PO DAILY [facility] Last Admin: 01/27/18 11:40 Dose: 100 mg Escitalopram Oxalate (Lexapro -) 20 mg PO DAILY [facility] Last Admin: 01/27/18 11:40 Dose: 20 mg Furosemide (Lasix Injection -) 40 mg IVPUSH DAILY [facility] Last Admin: 01/27/18 11:39 Dose: 40 mg Gabapentin (Neurontin Oral Liquid -) 250 mg PO BID [facility] Last Admin: 01/27/18 11:43 Dose: 250 mg Heparin Sodium (Porcine) (Heparin -) 5,000 unit SQ TID [facility] Last Admin: 01/27/18 05:18 Dose: Not Given Hydroxyzine HCl (Atarax -) 10 mg PO TID [facility] Last Admin: 01/27/18 05:55 Dose: 10 mg Levothyroxine Sodium (Synthroid -) 25 mcg PO DAILY@0700 [facility] Last Admin: 01/27/18 06:20 Dose: 25 mcg Mirtazapine (Remeron -) 15 mg PO [facility] Last Admin: 01/26/18 21:07 Dose: 15 mg Polyethylene Glycol (Miralax (For Daily Use) -) 17 gm PO DAILY [facility] Last Admin: 01/27/18 11:43 Dose: Not Given Senna (Senna -) 2 tab PO [facility] Last Admin: 01/26/18 21:07 Dose: 2 tab Trazodone HCl (Desyrel -) 50 mg PO [facility] Last Admin: 01/26/18 21:07 Dose: 50 mg - Objective Vital Signs: Vital Signs Temperature 98.6 F 01/27/18 06:00 Pulse Rate 65 01/27/18 09:03 Respiratory Rate 23 01/27/18 12:08 Blood Pressure 117/72 01/27/18 06:00 O2 Sat by Pulse Oximetry (%) 93 L 01/27/18 09:03 Constitutional: Yes: Calm, Obese Eyes: Yes: WNL HENT: Yes: WNL Neck: Yes: Supple (trach) Cardiovascular: Yes: Regular Rate and Rhythm, S1, S2 Respiratory: Yes: Rhonchi (scattered butch rhonchi) Gastrointestinal: Yes: Normal Bowel Sounds, Soft Extremities: Yes: WNL Edema: No Labs: CBC, BMP Problem List - Problems (1) Acute on chronic respiratory failure with hypoxia and hypercapnia Code(s): J96.21 - ACUTE AND CHRONIC RESPIRATORY FAILURE WITH HYPOXIA; J96.22 - ACUTE AND CHRONIC RESPIRATORY FAILURE WITH HYPERCAPNIA (2) CHF (congestive heart failure) Code(s): I50.9 - HEART FAILURE, UNSPECIFIED (3) COPD exacerbation Code(s): J44.1 - CHRONIC OBSTRUCTIVE PULMONARY DISEASE W (ACUTE) EXACERBATION (4) Depression Code(s): F32.9 - MAJOR DEPRESSIVE DISORDER, SINGLE EPISODE, UNSPECIFIED (5) Diabetes Code(s): E11.9 - TYPE 2 DIABETES MELLITUS WITHOUT COMPLICATIONS (6) Pneumonia Code(s): J18.9 - PNEUMONIA, UNSPECIFIED ORGANISM (7) Tracheostomy dependence Code(s): Z93.0 - TRACHEOSTOMY STATUS (8) Morbid (severe) obesity due to excess calories Code(s): E66.01 - MORBID (SEVERE) OBESITY DUE TO EXCESS CALORIES Assessment/Plan IMP ACUTE ON CHRONIC HYPERCAPNEIC/HYPOXEMIC RESPIRATORY FAILURE CHF RECENT PNEUMONIA BILATERAL PLEURAL EFFUSIONS END STAGE COPD SEIZURES DEPRESSION MORBID OBESITY PLAN VENT SUPPORT LASIX TRACHEAL SUCTIONING DVT PROPHYLAXIS F/U CHEST X-RAYS DR STEELE Problem List - Problems (1) Acute on chronic respiratory failure with hypoxia and hypercapnia Code(s): J96.21 - ACUTE AND CHRONIC RESPIRATORY FAILURE WITH HYPOXIA; J96.22 - ACUTE AND CHRONIC RESPIRATORY FAILURE WITH HYPERCAPNIA (2) CHF (congestive heart failure) Code(s): I50.9 - HEART FAILURE, UNSPECIFIED (3) COPD exacerbation Code(s): J44.1 - CHRONIC OBSTRUCTIVE PULMONARY DISEASE W (ACUTE) EXACERBATION (4) Depression Code(s): F32.9 - MAJOR DEPRESSIVE DISORDER, SINGLE EPISODE, UNSPECIFIED (5) Diabetes Code(s): E11.9 - TYPE 2 DIABETES MELLITUS WITHOUT COMPLICATIONS (6) Pneumonia Code(s): J18.9 - PNEUMONIA, UNSPECIFIED ORGANISM (7) Tracheostomy dependence Code(s): Z93.0 - TRACHEOSTOMY STATUS (8) Morbid (severe) obesity due to excess calories Code(s): E66.01 - MORBID (SEVERE) OBESITY DUE TO EXCESS CALORIES
--- NOTE | 2018-01-27 14:19 | EKG ---
Test Reason : Blood Pressure : / mmHG Vent. Rate : 066 BPM Atrial Rate : 066 BPM P-R Int : 164 ms QRS Dur : 116 ms QT Int : 418 ms P-R-T Axes : 046 -07 018 degrees QTc Int : 438 ms NORMAL SINUS RHYTHM LEFT VENTRICULAR HYPERTROPHY WITH QRS WIDENING ABNORMAL ECG WHEN COMPARED WITH ECG OF 24-JAN-2018 21:35, NO SIGNIFICANT CHANGE WAS FOUND Confirmed by ABHISHEK SINGH MD ([id number]) on 01/27/2018 2:19:16 PM Referred By: LESLEY FIELDS DR Confirmed By:ABHISHEK SINGH MD
[2018-01-27] MEDS ORDERED: ALBUTEROL SO4 8 GM HFA INHALER IH PRN (22:00)
[2018-01-27] MEDS: ATORVASTATIN CA 20 MG TABLET (FP) PO SCH (22:20)
[2018-01-27] MEDS: SENNOSIDES 8.6MG TABLET (FP) PO SCH (22:20)
[2018-01-27] MEDS: MIRTAZAPINE 15 MG TABLET (FP) PO SCH (22:20)
[2018-01-27] MEDS: traZODone HCL 50 MG TABLET (FP) PO SCH (22:21)
[2018-01-28] MEDS: ALBUTEROL SO4 2.5/IPRATROPIUM 0.5 INH SOL 3 ML VIAL.NEB. NEB SCH ×6 (02:12→21:07)
[2018-01-28] MEDS: ALPRAZolam 0.25 MG TABLET PO PRN ×2 (03:55→14:47)
[2018-01-28] MEDS: LEVOTHYROXINE NA 25 MCG TABLET (FP) PO SCH (06:14)
[2018-01-28] MEDS: hydrOXYzine HCL 10 MG TABLET PO SCH ×3 (06:14→22:35)
[2018-01-28] MEDS: HEPARIN NA (PORCINE) 5,000 UNITS/ML 1ML VIAL SQ SCH ×3 (06:14→22:35)
[2018-01-28 07:56] LABS: BASO % 0.6 % (0-2.0); EOS % 1.3 % (0-4.5); HEMATOCRIT 32.8 % (32.4-45.2); HEMOGLOBIN 10.5 GM/dL (10.7-15.3); LYMPH % 32.8 % (8-40); MCH 28.2 pg (25.7-33.7); MCHC 31.9 g/dl (32.0-36.0); MEAN CELL VOLUME 88.4 fl (80-96); MEAN PLT VOLUME 7.9 fl (7.5-11.1); MONO % 5.7 % (3.8-10.2); NEUT % 59.6 % (42.8-82.8); PLATELET COUNT 239 K/MM3 (134-434); RBC 3.71 M/mm3 (3.60-5.2); RDW 13.7 % (11.6-15.6); WHITE BLOOD COUNT 5.1 K/mm3 (4.0-10.0)
[2018-01-28 08:34] LABS: INR 1.07 (0.82-1.09); PROTHROMBIN TIME (PATIENT) 12.1 SEC (9.7-13.0)
[2018-01-28 08:37] LABS: ACTIVATED PTT 32.3 SECONDS (25.2-36.5)
[2018-01-28] MEDS ORDERED: PT OWN MED DRAWER 7, Y5N ONE (09:50)
[2018-01-28] MEDS: BUDESONIDE/FORMETEROL FUMARATE 160/4.5 mcg INHALER IH SCH ×2 (09:55→22:34)
[2018-01-28] MEDS: GABAPENTIN 250 MG/5 ML ORAL SOLUTION, 470 ML BOTTLE PO SCH ×2 (09:55→22:35)
[2018-01-28] MEDS: FUROSEMIDE 40 MG/4 ML INJECTABLE VIAL IVPUSH SCH (09:55)
[2018-01-28 09:56] LABS: ALBUMIN 3.2 g/dl (3.4-5.0); ANION GAP 6 (8-16); BLOOD UREA NITROGEN 15 mg/dL (7-18); CALCIUM 9.1 mg/dL (8.5-10.1); CHLORIDE 99 mmol/L (98-107); CO2 37 mmol/L (21-32); GLUCOSE,RANDOM 111 mg/dL (74-106); SODIUM 142 mmol/L (136-145)
[2018-01-28] MEDS: ARIPiprazole 5 MG TABLET (FP) PO SCH (09:56)
[2018-01-28] MEDS: ASPIRIN 81 MG CHEWABLE TABLETS PO SCH (09:56)
[2018-01-28] MEDS: ESCITALOPRAM OXALATE 20 MG TABLET (FP) PO SCH (09:56)
[2018-01-28] MEDS: DOCUSATE SODIUM 100 MG CAPSULE (FP) PO SCH (09:56)
[2018-01-28] MEDS: CLOTRIMAZOLE/BETAMET DIPROP 15 GM TUBE TP SCH ×2 (09:57→22:36)
[2018-01-28] MEDS: POLYETHYLENE GLYCOL 3350 119 GM BTL PO SCH (09:57)
[2018-01-28 09:59] LABS: ALK PHOS 89 U/L (45-117); BILIRUBIN,TOTAL 0.7 mg/dL (0.2-1.0); CREATININE 0.5 mg/dL (0.55-1.02); SGOT/AST 11 U/L (15-37); SGPT/ALT 23 U/L (12-78); TOT PROT 6.8 g/dl (6.4-8.2)
[2018-01-28] MEDS: ACETAMINOPHEN 325 MG TABLET (FP) PO PRN ×2 (10:02→22:40)
--- NOTE | 2018-01-28 11:50 | PN ---
Progress Note, Physician Chief Complaint: SOB secretions+ has to be placed on vent for longer periods of time Can not tolerate trach collar c/o pain in neck - Current Medication List Current Medications: Active Medications Acetaminophen (Tylenol -) 650 mg PO Q4H PRN PRN Reason: PAIN LEVEL 1-5 Last Admin: 01/28/18 10:02 Dose: 650 mg Albuterol Sulfate (Ventolin Hfa Inhaler -) 2 puff IH Q6H PRN PRN Reason: SHORTNESS OF BREATH Albuterol/Ipratropium (Duoneb -) 1 amp NEB Q4HPO [facility] Last Admin: 01/28/18 10:00 Dose: 1 amp Alprazolam (Xanax -) 0.25 mg PO Q8H PRN PRN Reason: ANXIETY Last Admin: 01/28/18 03:55 Dose: 0.25 mg Aripiprazole (Abilify) 5 mg PO DAILY [facility] Last Admin: 01/28/18 09:56 Dose: 5 mg Aspirin (Asa -) 81 mg PO DAILY [facility] Last Admin: 01/28/18 09:56 Dose: 81 mg Atorvastatin Calcium (Lipitor -) 20 mg PO HS [facility] Last Admin: 01/27/18 22:20 Dose: 20 mg Budesonide/Formoterol Fumarate (Symbicort 160/4.5mcg -) 1 puff IH BID [facility] Last Admin: 01/28/18 09:55 Dose: 1 puff Clotrimazole (Lotrisone Cream (Small Tube)) 1 applic TP BID [facility] Last Admin: 01/28/18 09:57 Dose: 1 applic Docusate Sodium (Colace -) 100 mg PO DAILY [facility] Last Admin: 01/28/18 09:56 Dose: 100 mg Escitalopram Oxalate (Lexapro -) 20 mg PO DAILY [facility] Last Admin: 01/28/18 09:56 Dose: 20 mg Furosemide (Lasix Injection -) 40 mg IVPUSH DAILY [facility] Last Admin: 01/28/18 09:55 Dose: 40 mg Gabapentin (Neurontin Oral Liquid -) 250 mg PO BID [facility] Last Admin: 01/28/18 09:55 Dose: 250 mg Heparin Sodium (Porcine) (Heparin -) 5,000 unit SQ TID [facility] Last Admin: 01/28/18 06:14 Dose: 5,000 unit Hydroxyzine HCl (Atarax -) 10 mg PO TID [facility] Last Admin: 01/28/18 06:14 Dose: 10 mg Levothyroxine Sodium (Synthroid -) 25 mcg PO DAILY@0700 [facility] Last Admin: 01/28/18 06:14 Dose: 25 mcg Mirtazapine (Remeron -) 15 mg PO [facility] Last Admin: 01/27/18 22:20 Dose: 15 mg Polyethylene Glycol (Miralax (For Daily Use) -) 17 gm PO DAILY [facility] Last Admin: 01/28/18 09:57 Dose: 17 grams Senna (Senna -) 2 tab PO [facility] Last Admin: 01/27/18 22:20 Dose: 2 tab Trazodone HCl (Desyrel -) 50 mg PO [facility] Last Admin: 01/27/18 22:21 Dose: 50 mg - Objective Vital Signs: Vital Signs Temperature 98.1 F 01/28/18 06:00 Pulse Rate 48 L 01/28/18 06:00 Respiratory Rate 21 01/28/18 08:33 Blood Pressure 112/67 01/28/18 06:00 O2 Sat by Pulse Oximetry (%) 96 01/28/18 02:00 Constitutional: Yes: Anxious Cardiovascular: Yes: Regular Rate and Rhythm Respiratory: Yes: Diminished, Mechanically Ventilated Gastrointestinal: Yes: Normal Bowel Sounds, Soft, Abdomen, Obese. No: Tenderness Edema: No Labs: CBC, BMP 01/28/18 06:40 01/28/18 09:00 INR, PTT INR 1.07 (0.82-1.09) 01/28/18 06:40 Problem List - Problems (1) Morbid (severe) obesity due to excess calories Code(s): E66.01 - MORBID (SEVERE) OBESITY DUE TO EXCESS CALORIES (2) Respiratory disease Code(s): J98.9 - RESPIRATORY DISORDER, UNSPECIFIED (3) Acute on chronic respiratory failure with hypoxia and hypercapnia Code(s): J96.21 - ACUTE AND CHRONIC RESPIRATORY FAILURE WITH HYPOXIA; J96.22 - ACUTE AND CHRONIC RESPIRATORY FAILURE WITH HYPERCAPNIA (4) Acute respiratory failure Code(s): J96.00 - ACUTE RESPIRATORY FAILURE, UNSP W HYPOXIA OR HYPERCAPNIA Qualifiers: Respiratory failure complication: hypoxia Qualified Code(s): J96.01 - Acute respiratory failure with hypoxia (5) CHF (congestive heart failure) Code(s): I50.9 - HEART FAILURE, UNSPECIFIED (6) Diabetes Code(s): E11.9 - TYPE 2 DIABETES MELLITUS WITHOUT COMPLICATIONS Assessment/Plan PLAN spoke with Pulmonary-- pt will need to be on the vent for longer periods now- she is deconditioned frequent suctioning Possible tracheitis as a cause for pain - ? start steroids- she was on it last admission iv Lasix Vent management She will need more hours of vent support Heparin sc for DVT prophylaxis
--- NOTE | 2018-01-28 11:57 | PN ---
Progress Note (short form) - Note Progress Note: Awake and alert on AC Mode of vent. Currently vented on 60% FiO2. Still complains of thracheal pain and secretions. Intake & Output 01/25/18 01/26/18 01/27/18 01/28/18 23:59 23:59 23:59 23:59 Intake Total 865 790 185 Balance 865 790 185 Weight 300 lb Last Vital Signs Temp Pulse Resp BP Pulse Ox 98.1 F 48 L 21 112/67 96 01/28/18 06:00 01/28/18 06:00 01/28/18 08:33 01/28/18 06:00 01/28/18 02:00 Active Medications Acetaminophen (Tylenol -) 650 mg PO Q4H PRN PRN Reason: PAIN LEVEL 1-5 Last Admin: 01/28/18 10:02 Dose: 650 mg Albuterol Sulfate (Ventolin Hfa Inhaler -) 2 puff IH Q6H PRN PRN Reason: SHORTNESS OF BREATH Albuterol/Ipratropium (Duoneb -) 1 amp NEB Q4HPO [facility] Last Admin: 01/28/18 10:00 Dose: 1 amp Alprazolam (Xanax -) 0.25 mg PO Q8H PRN PRN Reason: ANXIETY Last Admin: 01/28/18 03:55 Dose: 0.25 mg Aripiprazole (Abilify) 5 mg PO DAILY [facility] Last Admin: 01/28/18 09:56 Dose: 5 mg Aspirin (Asa -) 81 mg PO DAILY [facility] Last Admin: 01/28/18 09:56 Dose: 81 mg Atorvastatin Calcium (Lipitor -) 20 mg PO HS [facility] Last Admin: 01/27/18 22:20 Dose: 20 mg Budesonide/Formoterol Fumarate (Symbicort 160/4.5mcg -) 1 puff IH BID [facility] Last Admin: 01/28/18 09:55 Dose: 1 puff Clotrimazole (Lotrisone Cream (Small Tube)) 1 applic TP BID [facility] Last Admin: 01/28/18 09:57 Dose: 1 applic Docusate Sodium (Colace -) 100 mg PO DAILY [facility] Last Admin: 01/28/18 09:56 Dose: 100 mg Escitalopram Oxalate (Lexapro -) 20 mg PO DAILY [facility] Last Admin: 01/28/18 09:56 Dose: 20 mg Furosemide (Lasix Injection -) 40 mg IVPUSH DAILY [facility] Last Admin: 01/28/18 09:55 Dose: 40 mg Gabapentin (Neurontin Oral Liquid -) 250 mg PO BID [facility] Last Admin: 01/28/18 09:55 Dose: 250 mg Heparin Sodium (Porcine) (Heparin -) 5,000 unit SQ TID [facility] Last Admin: 01/28/18 06:14 Dose: 5,000 unit Hydroxyzine HCl (Atarax -) 10 mg PO TID [facility] Last Admin: 01/28/18 06:14 Dose: 10 mg Levothyroxine Sodium (Synthroid -) 25 mcg PO DAILY@0700 [facility] Last Admin: 01/28/18 06:14 Dose: 25 mcg Mirtazapine (Remeron -) 15 mg PO HS [facility] Last Admin: 01/27/18 22:20 Dose: 15 mg Polyethylene Glycol (Miralax (For Daily Use) -) 17 gm PO DAILY [facility] Last Admin: 01/28/18 09:57 Dose: 17 grams Senna (Senna -) 2 tab PO HS [facility] Last Admin: 01/27/18 22:20 Dose: 2 tab Trazodone HCl (Desyrel -) 50 mg PO HS [facility] Last Admin: 01/27/18 22:21 Dose: 50 mg HEENT: Tracheostomy in place. Alopecia. No Jaundice. Neck: Trach intact. No JVD Chest: Vented. Diminished at the bases. Scattered rhonchi. Heart: Regular. No S3, rub or murmur Abdomen: Not distended, soft, nontender and no HSM. No rebound or guarding. Normoactive bowel sounds. Ext: Peripheral pulses intact. No leg edema. Skin: Warm and dry. No petechiae, rash or ecchymosis. Neuro: Non-focal Laboratory Results - last 24 hr 01/28/18 01/28/18 01/28/18 06:40 06:40 09:00 WBC 5.1 RBC 3.71 Hgb 10.5 L Hct 32.8 MCV 88.4 MCH 28.2 MCHC 31.9 L RDW 13.7 Plt Count 239 D MPV 7.9 Absolute Neuts (auto) 3.1 Neutrophils % 59.6 D Lymphocytes % 32.8 D Monocytes % 5.7 Eosinophils % 1.3 D Basophils % 0.6 Nucleated RBC % 0 PT with INR 12.10 INR 1.07 PTT (Actin FS) 32.3 D Sodium 142 Potassium 4.0 Chloride 99 Carbon Dioxide 37 H Anion Gap 6 L BUN 15 Creatinine 0.5 L Creat Clearance w eGFR > 60 Random Glucose 111 H Calcium 9.1 Total Bilirubin 0.7 AST 11 L ALT 23 Alkaline Phosphatase 89 D Total Protein 6.8 Albumin 3.2 L Problem List - Problems (1) Acute on chronic respiratory failure with hypoxia and hypercapnia Code(s): J96.21 - ACUTE AND CHRONIC RESPIRATORY FAILURE WITH HYPOXIA; J96.22 - ACUTE AND CHRONIC RESPIRATORY FAILURE WITH HYPERCAPNIA (2) CHF (congestive heart failure) Code(s): I50.9 - HEART FAILURE, UNSPECIFIED (3) COPD exacerbation Code(s): J44.1 - CHRONIC OBSTRUCTIVE PULMONARY DISEASE W (ACUTE) EXACERBATION (4) Depression Code(s): F32.9 - MAJOR DEPRESSIVE DISORDER, SINGLE EPISODE, UNSPECIFIED (5) Diabetes Code(s): E11.9 - TYPE 2 DIABETES MELLITUS WITHOUT COMPLICATIONS (6) Pneumonia Code(s): J18.9 - PNEUMONIA, UNSPECIFIED ORGANISM (7) Tracheostomy dependence Code(s): Z93.0 - TRACHEOSTOMY STATUS (8) Morbid (severe) obesity due to excess calories Code(s): E66.01 - MORBID (SEVERE) OBESITY DUE TO EXCESS CALORIES IMP ACUTE ON CHRONIC HYPERCAPNEIC/HYPOXEMIC RESPIRATORY FAILURE CHF RECENT PNEUMONIA BILATERAL PLEURAL EFFUSIONS END STAGE COPD SEIZURES DEPRESSION MORBID OBESITY (?) TRACHEITIS PLAN VENT SUPPORT: TRACH COLLAR ONLY WHEN FIOS2 REQUIREMENTS ARE 60% AND BELOW LASIX ABX FOLLOW CULTURES TRACHEAL SUCTIONING DVT PROPHYLAXIS TRIAL OF DECADRON FOR ANTI-INFLAMMATORY EFFECT DR GERMAIN
[2018-01-28] MEDS: DEXAMETHASONE SOD PHOSPHATE 4 MG/1 ML VIAL IVPUSH SCH ×2 (14:42→17:52)
[2018-01-28] MEDS: traZODone HCL 50 MG TABLET (FP) PO SCH (22:34)
[2018-01-28] MEDS: MIRTAZAPINE 15 MG TABLET (FP) PO SCH (22:34)
[2018-01-28] MEDS: SENNOSIDES 8.6MG TABLET (FP) PO SCH ×2 (22:34→22:46)
[2018-01-28] MEDS: ATORVASTATIN CA 20 MG TABLET (FP) PO SCH (22:34)
[2018-01-29] MEDS: DEXAMETHASONE SOD PHOSPHATE 4 MG/1 ML VIAL IVPUSH SCH ×3 (01:19→18:44)
[2018-01-29] MEDS: ALPRAZolam 0.25 MG TABLET PO PRN ×3 (01:28→22:42)
[2018-01-29] MEDS: ALBUTEROL SO4 2.5/IPRATROPIUM 0.5 INH SOL 3 ML VIAL.NEB. NEB SCH ×6 (02:16→21:40)
[2018-01-29] MEDS: HEPARIN NA (PORCINE) 5,000 UNITS/ML 1ML VIAL SQ SCH ×3 (05:18→22:42)
[2018-01-29] MEDS: hydrOXYzine HCL 10 MG TABLET PO SCH ×3 (05:18→22:42)
[2018-01-29] MEDS: LEVOTHYROXINE NA 25 MCG TABLET (FP) PO SCH (06:42)
[2018-01-29] MEDS: FUROSEMIDE 40 MG/4 ML INJECTABLE VIAL IVPUSH SCH (10:47)
[2018-01-29] MEDS: ACETAMINOPHEN 325 MG TABLET (FP) PO PRN (10:48)
[2018-01-29] MEDS: ASPIRIN 81 MG CHEWABLE TABLETS PO SCH (10:48)
[2018-01-29] MEDS: DOCUSATE SODIUM 100 MG CAPSULE (FP) PO SCH (10:49)
[2018-01-29] MEDS: GABAPENTIN 250 MG/5 ML ORAL SOLUTION, 470 ML BOTTLE PO SCH ×2 (10:49→22:41)
[2018-01-29] MEDS: ESCITALOPRAM OXALATE 20 MG TABLET (FP) PO SCH (10:49)
[2018-01-29] MEDS: POLYETHYLENE GLYCOL 3350 119 GM BTL PO SCH (10:50)
[2018-01-29] MEDS: ARIPiprazole 5 MG TABLET (FP) PO SCH (10:50)
[2018-01-29] MEDS: CLOTRIMAZOLE/BETAMET DIPROP 15 GM TUBE TP SCH ×2 (10:50→22:34)
[2018-01-29] MEDS: BUDESONIDE/FORMETEROL FUMARATE 160/4.5 mcg INHALER IH SCH ×2 (10:50→22:40)
--- NOTE | 2018-01-29 11:25 | PN ---
Progress Note (short form) - Note Progress Note: patient seen and examined. Chart reviewed. Awake and comfortable. Anxiety present. Still complains of discomfort in throat--started on steroids yesterday Vital Signs Temp 97.5 F L 01/29/18 06:00 Pulse 69 01/29/18 08:06 Resp 20 01/29/18 06:00 BP 115/68 01/29/18 06:00 Pulse Ox 96 01/29/18 08:06 Intake & Output 01/28/18 01/28/18 01/29/18 11:59 23:59 11:59 Intake Total 185 540 360 Balance 185 540 360 Weight 315 lb 0.2 oz Intake: Oral 185 540 360 Other: Voiding Method Diaper Incontinent Incontinent # Unmeasured Voids Void 1 2 2 Bowel Movement No Yes No # Bowel Movements 1 Weight Measurement Method Patient Lift Scale Active Medications Acetaminophen (Tylenol -) 650 mg PO Q4H PRN PRN Reason: PAIN LEVEL 1-5 Last Admin: 01/29/18 10:48 Dose: 650 mg Albuterol Sulfate (Ventolin Hfa Inhaler -) 2 puff IH Q6H PRN PRN Reason: SHORTNESS OF BREATH Albuterol/Ipratropium (Duoneb -) 1 amp NEB Q4HPO [facility] Last Admin: 01/29/18 09:45 Dose: 1 amp Alprazolam (Xanax -) 0.25 mg PO Q8H PRN PRN Reason: ANXIETY Last Admin: 01/29/18 10:49 Dose: 0.25 mg Aripiprazole (Abilify) 5 mg PO DAILY [facility] Last Admin: 01/29/18 10:50 Dose: 5 mg Aspirin (Asa -) 81 mg PO DAILY [facility] Last Admin: 01/29/18 10:48 Dose: 81 mg Atorvastatin Calcium (Lipitor -) 20 mg PO HS [facility] Last Admin: 01/28/18 22:34 Dose: 20 mg Budesonide/Formoterol Fumarate (Symbicort 160/4.5mcg -) 1 puff IH BID [facility] Last Admin: 01/29/18 10:50 Dose: 1 puff Clotrimazole (Lotrisone Cream (Small Tube)) 1 applic TP BID [facility] Last Admin: 01/29/18 10:50 Dose: 1 applic Dexamethasone Sodium Phosphate (Decadron Injection -) 8 mg IVPUSH Q8H-IV [facility] Stop: 01/30/18 02:01 Last Admin: 01/29/18 10:47 Dose: 8 mg Docusate Sodium (Colace -) 100 mg PO DAILY [facility] Last Admin: 01/29/18 10:49 Dose: 100 mg Escitalopram Oxalate (Lexapro -) 20 mg PO DAILY [facility] Last Admin: 01/29/18 10:49 Dose: 20 mg Furosemide (Lasix Injection -) 40 mg IVPUSH DAILY [facility] Last Admin: 01/29/18 10:47 Dose: 40 mg Gabapentin (Neurontin Oral Liquid -) 250 mg PO BID [facility] Last Admin: 01/29/18 10:49 Dose: 250 mg Heparin Sodium (Porcine) (Heparin -) 5,000 unit SQ TID [facility] Last Admin: 01/29/18 05:18 Dose: 5,000 unit Hydroxyzine HCl (Atarax -) 10 mg PO TID [facility] Last Admin: 01/29/18 05:18 Dose: 10 mg Levothyroxine Sodium (Synthroid -) 25 mcg PO DAILY@0700 [facility] Last Admin: 01/29/18 06:42 Dose: 25 mcg Mirtazapine (Remeron -) 15 mg PO [facility] Last Admin: 01/28/18 22:34 Dose: 15 mg Polyethylene Glycol (Miralax (For Daily Use) -) 17 gm PO DAILY [facility] Last Admin: 01/29/18 10:50 Dose: Not Given Senna (Senna -) 2 tab PO [facility] Last Admin: 01/28/18 22:46 Dose: Not Given Trazodone HCl (Desyrel -) 50 mg PO [facility] Last Admin: 01/28/18 22:34 Dose: 50 mg CBC, BMP 01/28/18 06:40 01/28/18 09:00 Microbiology 01/26/18 08:30 Gram Stain - Final Sputum - Endotrachea Suction/Ventilator Sputum Culture - Preliminary Non Lactose Fermenting Gnb Physical Constitutional: Yes: Anxious/ awake Cardiovascular: Yes: Regular Rate and Rhythm Respiratory: Yes: Diminished, Mechanically Ventilated Gastrointestinal: Yes: Normal Bowel Sounds, Soft, Abdomen, Obese. No: Tenderness Edema: No Problem List - Problems (1) Morbid (severe) obesity due to excess calories Code(s): E66.01 - MORBID (SEVERE) OBESITY DUE TO EXCESS CALORIES (2) Respiratory disease Code(s): J98.9 - RESPIRATORY DISORDER, UNSPECIFIED (3) Acute on chronic respiratory failure with hypoxia and hypercapnia Code(s): J96.21 - ACUTE AND CHRONIC RESPIRATORY FAILURE WITH HYPOXIA; J96.22 - ACUTE AND CHRONIC RESPIRATORY FAILURE WITH HYPERCAPNIA (4) Acute respiratory failure Code(s): J96.00 - ACUTE RESPIRATORY FAILURE, UNSP W HYPOXIA OR HYPERCAPNIA Qualifiers: Respiratory failure complication: hypoxia Qualified Code(s): J96.01 - Acute respiratory failure with hypoxia (5) CHF (congestive heart failure) Code(s): I50.9 - HEART FAILURE, UNSPECIFIED (6) Diabetes Code(s): E11.9 - TYPE 2 DIABETES MELLITUS WITHOUT COMPLICATIONS Assessment/Plan clinically stable Continue present care Vent support steroids Pulmonary on case Will follow Problem List - Problems (1) Respiratory disease Code(s): J98.9 - RESPIRATORY DISORDER, UNSPECIFIED (2) Acute on chronic respiratory failure with hypoxia and hypercapnia Code(s): J96.21 - ACUTE AND CHRONIC RESPIRATORY FAILURE WITH HYPOXIA; J96.22 - ACUTE AND CHRONIC RESPIRATORY FAILURE WITH HYPERCAPNIA (3) Morbid obesity Code(s): E66.01 - MORBID (SEVERE) OBESITY DUE TO EXCESS CALORIES (4) Tracheostomy dependence Code(s): Z93.0 - TRACHEOSTOMY STATUS
--- NOTE | 2018-01-29 14:29 | PN ---
Progress Note (short form) - Note Progress Note: PULMONARY Requesting to be placed back on vent sounds congested VSS HEENT: Tracheostomy in place. Alopecia. No Jaundice. Neck: Trach intact. No JVD Chest: Vented. Diminished at the bases. Scattered rhonchi. Heart: Regular. No S3, rub or murmur Abdomen: Not distended, soft, nontender and no HSM. No rebound or guarding. Normoactive bowel sounds. Ext: Peripheral pulses intact. No leg edema. Skin: Warm and dry. No petechiae, rash or ecchymosis. Neuro: Non-focal labs/meds/images noted (1) Acute on chronic respiratory failure with hypoxia and hypercapnia Code(s): J96.21 - ACUTE AND CHRONIC RESPIRATORY FAILURE WITH HYPOXIA; J96.22 - ACUTE AND CHRONIC RESPIRATORY FAILURE WITH HYPERCAPNIA (2) CHF (congestive heart failure) Code(s): I50.9 - HEART FAILURE, UNSPECIFIED (3) COPD exacerbation Code(s): J44.1 - CHRONIC OBSTRUCTIVE PULMONARY DISEASE W (ACUTE) EXACERBATION (4) Depression Code(s): F32.9 - MAJOR DEPRESSIVE DISORDER, SINGLE EPISODE, UNSPECIFIED (5) Diabetes Code(s): E11.9 - TYPE 2 DIABETES MELLITUS WITHOUT COMPLICATIONS (6) Pneumonia Code(s): J18.9 - PNEUMONIA, UNSPECIFIED ORGANISM (7) Tracheostomy dependence Code(s): Z93.0 - TRACHEOSTOMY STATUS (8) Morbid (severe) obesity due to excess calories Code(s): E66.01 - MORBID (SEVERE) OBESITY DUE TO EXCESS CALORIES IMP ACUTE ON CHRONIC HYPERCAPNEIC/HYPOXEMIC RESPIRATORY FAILURE CHF RECENT PNEUMONIA BILATERAL PLEURAL EFFUSIONS END STAGE COPD SEIZURES DEPRESSION MORBID OBESITY (?) TRACHEITIS PLAN VENT SUPPORT HS/PRN LASIX ABX FOLLOW CULTURES TRACHEAL SUCTIONING DVT PROPHYLAXIS TRIAL OF DECADRON FOR ANTI-INFLAMMATORY EFFECT Marcus ALVA MD
[2018-01-29] MEDS: SENNOSIDES 8.6MG TABLET (FP) PO SCH (22:41)
[2018-01-29] MEDS: ATORVASTATIN CA 20 MG TABLET (FP) PO SCH (22:42)
[2018-01-29] MEDS: MIRTAZAPINE 15 MG TABLET (FP) PO SCH (22:42)
[2018-01-29] MEDS: traZODone HCL 50 MG TABLET (FP) PO SCH (22:42)
[2018-01-30] MEDS: DEXAMETHASONE SOD PHOSPHATE 4 MG/1 ML VIAL IVPUSH SCH (02:04)
[2018-01-30] MEDS: ALBUTEROL SO4 2.5/IPRATROPIUM 0.5 INH SOL 3 ML VIAL.NEB. NEB SCH ×4 (02:15→21:00)
[2018-01-30] MEDS: hydrOXYzine HCL 10 MG TABLET PO SCH ×3 (06:22→21:49)
[2018-01-30] MEDS: LEVOTHYROXINE NA 25 MCG TABLET (FP) PO SCH (06:22)
[2018-01-30] MEDS: HEPARIN NA (PORCINE) 5,000 UNITS/ML 1ML VIAL SQ SCH ×3 (06:22→21:50)
[2018-01-30] MEDS: ACETAMINOPHEN 325 MG TABLET (FP) PO PRN ×2 (06:28→12:08)
[2018-01-30] MEDS ORDERED: PT OWN MED DRAWER 7, Y5N ONE (11:16)
[2018-01-30] MEDS: BUDESONIDE/FORMETEROL FUMARATE 160/4.5 mcg INHALER IH SCH ×2 (11:44→21:49)
[2018-01-30] MEDS: DOCUSATE SODIUM 100 MG CAPSULE (FP) PO SCH (11:45)
[2018-01-30] MEDS: ESCITALOPRAM OXALATE 20 MG TABLET (FP) PO SCH (11:46)
[2018-01-30] MEDS: ASPIRIN 81 MG CHEWABLE TABLETS PO SCH (11:50)
[2018-01-30] MEDS: CLOTRIMAZOLE/BETAMET DIPROP 15 GM TUBE TP SCH ×2 (11:50→21:50)
[2018-01-30] MEDS: ARIPiprazole 5 MG TABLET (FP) PO SCH (11:50)
[2018-01-30] MEDS: FUROSEMIDE 40 MG/4 ML INJECTABLE VIAL IVPUSH SCH (11:50)
[2018-01-30] MEDS: POLYETHYLENE GLYCOL 3350 119 GM BTL PO SCH (11:52)
--- NOTE | 2018-01-30 11:56 | PN ---
Progress Note (short form) - Note Progress Note: PULMONARY Sounds less congested Comfortable on vent VSS HEENT: Tracheostomy in place. Alopecia. No Jaundice. Neck: Trach intact. No JVD Chest: Vented. Diminished at the bases. Scattered rhonchi. Heart: Regular. No S3, rub or murmur Abdomen: Not distended, soft, nontender and no HSM. No rebound or guarding. Normoactive bowel sounds. Ext: Peripheral pulses intact. No leg edema. Skin: Warm and dry. No petechiae, rash or ecchymosis. Neuro: Non-focal labs/meds/images noted (1) Acute on chronic respiratory failure with hypoxia and hypercapnia Code(s): J96.21 - ACUTE AND CHRONIC RESPIRATORY FAILURE WITH HYPOXIA; J96.22 - ACUTE AND CHRONIC RESPIRATORY FAILURE WITH HYPERCAPNIA (2) CHF (congestive heart failure) Code(s): I50.9 - HEART FAILURE, UNSPECIFIED (3) COPD exacerbation Code(s): J44.1 - CHRONIC OBSTRUCTIVE PULMONARY DISEASE W (ACUTE) EXACERBATION (4) Depression Code(s): F32.9 - MAJOR DEPRESSIVE DISORDER, SINGLE EPISODE, UNSPECIFIED (5) Diabetes Code(s): E11.9 - TYPE 2 DIABETES MELLITUS WITHOUT COMPLICATIONS (6) Pneumonia Code(s): J18.9 - PNEUMONIA, UNSPECIFIED ORGANISM (7) Tracheostomy dependence Code(s): Z93.0 - TRACHEOSTOMY STATUS (8) Morbid (severe) obesity due to excess calories Code(s): E66.01 - MORBID (SEVERE) OBESITY DUE TO EXCESS CALORIES IMP ACUTE ON CHRONIC HYPERCAPNEIC/HYPOXEMIC RESPIRATORY FAILURE CHF RECENT PNEUMONIA BILATERAL PLEURAL EFFUSIONS END STAGE COPD SEIZURES DEPRESSION MORBID OBESITY (?) TRACHEITIS PLAN VENT SUPPORT HS/PRN LASIX ABX FOLLOW CULTURES TRACHEAL SUCTIONING DVT PROPHYLAXIS TRIAL OF DECADRON FOR ANTI-INFLAMMATORY EFFECT COMPLETED Marcus ALVA MD
[2018-01-30] MEDS ORDERED: DEXAMETHASONE SOD PHOSPHATE 4 MG/1 ML VIAL IVPUSH SCH (12:00)
[2018-01-30] MEDS: ALPRAZolam 0.25 MG TABLET PO PRN ×2 (12:07→21:49)
--- NOTE | 2018-01-30 12:10 | PN ---
Progress Note (short form) - Note Progress Note: patient seen and examined. Chart reviewed. Awake and comfortable. feels better than yesterday afebrile Vital Signs Temp 98 F 01/30/18 06:00 Pulse 52 L 01/30/18 07:58 Resp 30 H 01/30/18 11:16 BP 115/53 01/30/18 06:00 Pulse Ox 97 01/30/18 07:58 Intake & Output 01/29/18 01/30/18 01/30/18 23:59 11:59 23:59 Intake Total 1155 300 Balance 1155 300 Intake: Oral 1155 300 Other: Voiding Method Incontinent Incontinent # Unmeasured Voids Void 1 1 Bowel Movement No No Active Medications Acetaminophen (Tylenol -) 650 mg PO Q4H PRN PRN Reason: PAIN LEVEL 1-5 Last Admin: 01/30/18 06:28 Dose: 650 mg Albuterol Sulfate (Ventolin Hfa Inhaler -) 2 puff IH Q6H PRN PRN Reason: SHORTNESS OF BREATH Albuterol/Ipratropium (Duoneb -) 1 amp NEB RQID [facility] Alprazolam (Xanax -) 0.25 mg PO Q8H PRN PRN Reason: ANXIETY Last Admin: 01/29/18 22:42 Dose: 0.25 mg Aripiprazole (Abilify) 5 mg PO DAILY [facility] Last Admin: 01/30/18 11:50 Dose: 5 mg Aspirin (Asa -) 81 mg PO DAILY [facility] Last Admin: 01/30/18 11:50 Dose: 81 mg Atorvastatin Calcium (Lipitor -) 20 mg PO HS [facility] Last Admin: 01/29/18 22:42 Dose: 20 mg Budesonide/Formoterol Fumarate (Symbicort 160/4.5mcg -) 1 puff IH BID [facility] Last Admin: 01/30/18 11:44 Dose: 1 puff Clotrimazole (Lotrisone Cream (Small Tube)) 1 applic TP BID [facility] Last Admin: 01/30/18 11:50 Dose: 1 applic Docusate Sodium (Colace -) 100 mg PO DAILY [facility] Last Admin: 01/30/18 11:45 Dose: Not Given Escitalopram Oxalate (Lexapro -) 20 mg PO DAILY [facility] Last Admin: 01/30/18 11:46 Dose: 20 mg Furosemide (Lasix Injection -) 40 mg IVPUSH DAILY [facility] Last Admin: 01/30/18 11:50 Dose: 40 mg Gabapentin (Neurontin Oral Liquid -) 250 mg PO BID [facility] Last Admin: 01/29/18 22:41 Dose: 250 mg Heparin Sodium (Porcine) (Heparin -) 5,000 unit SQ TID [facility] Last Admin: 01/30/18 06:22 Dose: Not Given Hydroxyzine HCl (Atarax -) 10 mg PO TID [facility] Last Admin: 01/30/18 06:22 Dose: 10 mg Levothyroxine Sodium (Synthroid -) 25 mcg PO DAILY@0700 [facility] Last Admin: 01/30/18 06:22 Dose: 25 mcg Mirtazapine (Remeron -) 15 mg PO [facility] Last Admin: 01/29/18 22:42 Dose: 15 mg Polyethylene Glycol (Miralax (For Daily Use) -) 17 gm PO DAILY [facility] Last Admin: 01/30/18 11:52 Dose: Not Given Senna (Senna -) 2 tab PO [facility] Last Admin: 01/29/18 22:41 Dose: 2 tab Trazodone HCl (Desyrel -) 50 mg PO [facility] Last Admin: 01/29/18 22:42 Dose: 50 mg CBC, BMP 01/28/18 06:40 01/28/18 09:00 Microbiology 01/26/18 08:30 Gram Stain - Final Sputum - Endotrachea Suction/Ventilator Sputum Culture - Preliminary Acinetobacter Baumannii/Haemol Physical Constitutional: Yes: awake--- comfortable Cardiovascular: Yes: Regular Rate and Rhythm Respiratory: Yes: Diminished, Mechanically Ventilated Gastrointestinal: Yes: Normal Bowel Sounds, Soft, Abdomen, Obese. No: Tenderness Edema: No Problem List - Problems (1) Morbid (severe) obesity due to excess calories Code(s): E66.01 - MORBID (SEVERE) OBESITY DUE TO EXCESS CALORIES (2) Respiratory disease Code(s): J98.9 - RESPIRATORY DISORDER, UNSPECIFIED (3) Acute on chronic respiratory failure with hypoxia and hypercapnia Code(s): J96.21 - ACUTE AND CHRONIC RESPIRATORY FAILURE WITH HYPOXIA; J96.22 - ACUTE AND CHRONIC RESPIRATORY FAILURE WITH HYPERCAPNIA (4) Acute respiratory failure Code(s): J96.00 - ACUTE RESPIRATORY FAILURE, UNSP W HYPOXIA OR HYPERCAPNIA Qualifiers: Respiratory failure complication: hypoxia Qualified Code(s): J96.01 - Acute respiratory failure with hypoxia (5) CHF (congestive heart failure) Code(s): I50.9 - HEART FAILURE, UNSPECIFIED (6) Diabetes Code(s): E11.9 - TYPE 2 DIABETES MELLITUS WITHOUT COMPLICATIONS Assessment/Plan clinically stable Continue present care Vent support steroids Pulmonary on case follow-up chest x-ray Contact precautions Chronic Acinetobacter--- likely colonization Will follow Problem List - Problems (1) Respiratory disease Code(s): J98.9 - RESPIRATORY DISORDER, UNSPECIFIED (2) Acute on chronic respiratory failure with hypoxia and hypercapnia Code(s): J96.21 - ACUTE AND CHRONIC RESPIRATORY FAILURE WITH HYPOXIA; J96.22 - ACUTE AND CHRONIC RESPIRATORY FAILURE WITH HYPERCAPNIA (3) Morbid obesity Code(s): E66.01 - MORBID (SEVERE) OBESITY DUE TO EXCESS CALORIES (4) Tracheostomy dependence Code(s): Z93.0 - TRACHEOSTOMY STATUS
[2018-01-30] MEDS: GABAPENTIN 250 MG/5 ML ORAL SOLUTION, 470 ML BOTTLE PO SCH ×2 (12:24→21:49)
[2018-01-30] MEDS: traZODone HCL 50 MG TABLET (FP) PO SCH (21:49)
[2018-01-30] MEDS: ATORVASTATIN CA 20 MG TABLET (FP) PO SCH (21:49)
[2018-01-30] MEDS: SENNOSIDES 8.6MG TABLET (FP) PO SCH (21:49)
[2018-01-30] MEDS: MIRTAZAPINE 15 MG TABLET (FP) PO SCH (21:49)
[2018-01-31] MEDS: LEVOTHYROXINE NA 25 MCG TABLET (FP) PO SCH (06:10)
[2018-01-31] MEDS: HEPARIN NA (PORCINE) 5,000 UNITS/ML 1ML VIAL SQ SCH ×3 (06:10→21:32)
[2018-01-31] MEDS: hydrOXYzine HCL 10 MG TABLET PO SCH ×3 (06:10→21:32)
[2018-01-31] MEDS: ALBUTEROL SO4 2.5/IPRATROPIUM 0.5 INH SOL 3 ML VIAL.NEB. NEB SCH ×4 (07:30→20:50)
--- NOTE | 2018-01-31 10:36 | PN ---
Progress Note (short form) - Note Progress Note: Pt seen/ examined today all f/u noted feels better vent dependent - on 50 percent Vital Signs Temp 97.6 F 01/31/18 05:31 Pulse 60 01/31/18 08:05 Resp 18 01/31/18 08:05 BP 111/57 01/31/18 05:31 Pulse Ox 100 01/31/18 08:05 Intake & Output 01/30/18 01/30/18 01/31/18 11:59 23:59 11:59 Intake Total 300 800 150 Balance 300 800 150 Intake: Oral 300 800 150 Other: Voiding Method Incontinent Incontinent Incontinent # Unmeasured Voids Void 1 2 1 Bowel Movement No No No Active Medications Acetaminophen (Tylenol -) 650 mg PO Q4H PRN PRN Reason: PAIN LEVEL 1-5 Last Admin: 01/30/18 12:08 Dose: 650 mg Albuterol Sulfate (Ventolin Hfa Inhaler -) 2 puff IH Q6H PRN PRN Reason: SHORTNESS OF BREATH Albuterol/Ipratropium (Duoneb -) 1 amp NEB RQID [facility] Last Admin: 01/31/18 07:30 Dose: 1 amp Aripiprazole (Abilify) 5 mg PO DAILY [facility] Last Admin: 01/30/18 11:50 Dose: 5 mg Aspirin (Asa -) 81 mg PO DAILY [facility] Last Admin: 01/30/18 11:50 Dose: 81 mg Atorvastatin Calcium (Lipitor -) 20 mg PO HS [facility] Last Admin: 01/30/18 21:49 Dose: 20 mg Budesonide/Formoterol Fumarate (Symbicort 160/4.5mcg -) 1 puff IH BID [facility] Last Admin: 01/30/18 21:49 Dose: 1 puff Clotrimazole (Lotrisone Cream (Small Tube)) 1 applic TP BID [facility] Last Admin: 01/30/18 21:50 Dose: 1 applic Docusate Sodium (Colace -) 100 mg PO DAILY [facility] Last Admin: 01/30/18 11:45 Dose: Not Given Escitalopram Oxalate (Lexapro -) 20 mg PO DAILY [facility] Last Admin: 01/30/18 11:46 Dose: 20 mg Furosemide (Lasix Injection -) 40 mg IVPUSH DAILY [facility] Last Admin: 01/30/18 11:50 Dose: 40 mg Gabapentin (Neurontin Oral Liquid -) 250 mg PO BID [facility] Last Admin: 01/30/18 21:49 Dose: 250 5ml Heparin Sodium (Porcine) (Heparin -) 5,000 unit SQ TID [facility] Last Admin: 01/31/18 06:10 Dose: 5,000 unit Hydroxyzine HCl (Atarax -) 10 mg PO TID [facility] Last Admin: 01/31/18 06:10 Dose: 10 mg Levothyroxine Sodium (Synthroid -) 25 mcg PO DAILY@0700 [facility] Last Admin: 01/31/18 06:10 Dose: 25 mcg Mirtazapine (Remeron -) 15 mg PO [facility] Last Admin: 01/30/18 21:49 Dose: 15 mg Polyethylene Glycol (Miralax (For Daily Use) -) 17 gm PO DAILY [facility] Last Admin: 01/30/18 11:52 Dose: Not Given Senna (Senna -) 2 tab PO [facility] Last Admin: 01/30/18 21:49 Dose: 2 tab Trazodone HCl (Desyrel -) 50 mg PO [facility] Last Admin: 01/30/18 21:49 Dose: 50 mg CBC, BMP 01/28/18 06:40 01/28/18 09:00 Microbiology 01/26/18 08:30 Gram Stain - Final Sputum - Endotrachea Suction/Ventilator Sputum Culture - Final Acinetobacter Baumannii/Haemol Physical Constitutional: Yes: awake--- comfortable Cardiovascular: Yes: Regular Rate and Rhythm Respiratory: Yes: Diminished, Mechanically Ventilated Gastrointestinal: Yes: Normal Bowel Sounds, Soft, Abdomen, Obese. No: Tenderness Edema: No Problem List - Problems (1) Morbid (severe) obesity due to excess calories Code(s): E66.01 - MORBID (SEVERE) OBESITY DUE TO EXCESS CALORIES (2) Respiratory disease Code(s): J98.9 - RESPIRATORY DISORDER, UNSPECIFIED (3) Acute on chronic respiratory failure with hypoxia and hypercapnia Code(s): J96.21 - ACUTE AND CHRONIC RESPIRATORY FAILURE WITH HYPOXIA; J96.22 - ACUTE AND CHRONIC RESPIRATORY FAILURE WITH HYPERCAPNIA (4) Acute respiratory failure Code(s): J96.00 - ACUTE RESPIRATORY FAILURE, UNSP W HYPOXIA OR HYPERCAPNIA Qualifiers: Respiratory failure complication: hypoxia Qualified Code(s): J96.01 - Acute respiratory failure with hypoxia (5) CHF (congestive heart failure) Code(s): I50.9 - HEART FAILURE, UNSPECIFIED (6) Diabetes Code(s): E11.9 - TYPE 2 DIABETES MELLITUS WITHOUT COMPLICATIONS Assessment/Plan clinically stable Continue present care Vent support Pulmonary on case Contact precautions Chronic Acinetobacter--- likely colonization-- afebrile Will follow Problem List - Problems (1) Respiratory disease Code(s): J98.9 - RESPIRATORY DISORDER, UNSPECIFIED (2) Acute on chronic respiratory failure with hypoxia and hypercapnia Code(s): J96.21 - ACUTE AND CHRONIC RESPIRATORY FAILURE WITH HYPOXIA; J96.22 - ACUTE AND CHRONIC RESPIRATORY FAILURE WITH HYPERCAPNIA (3) Morbid obesity Code(s): E66.01 - MORBID (SEVERE) OBESITY DUE TO EXCESS CALORIES (4) Tracheostomy dependence Code(s): Z93.0 - TRACHEOSTOMY STATUS
[2018-01-31] MEDS ORDERED: ALPRAZolam 0.25 MG TABLET PO PRN (10:43)
[2018-01-31] MEDS ORDERED: PT OWN MED DRAWER 7, Y5N ONE (12:03)
[2018-01-31] MEDS: DOCUSATE SODIUM 100 MG CAPSULE (FP) PO SCH (12:04)
[2018-01-31] MEDS: ESCITALOPRAM OXALATE 20 MG TABLET (FP) PO SCH (12:04)
[2018-01-31] MEDS: ASPIRIN 81 MG CHEWABLE TABLETS PO SCH (12:04)
[2018-01-31] MEDS: ALPRAZolam 0.25 MG TABLET PO PRN ×2 (12:05→21:31)
[2018-01-31] MEDS: ARIPiprazole 5 MG TABLET (FP) PO SCH (12:06)
[2018-01-31] MEDS: FUROSEMIDE 40 MG/4 ML INJECTABLE VIAL IVPUSH SCH (12:07)
[2018-01-31] MEDS: POLYETHYLENE GLYCOL 3350 119 GM BTL PO SCH (12:07)
[2018-01-31] MEDS: BUDESONIDE/FORMETEROL FUMARATE 160/4.5 mcg INHALER IH SCH ×2 (12:08→21:31)
[2018-01-31] MEDS: GABAPENTIN 250 MG/5 ML ORAL SOLUTION, 470 ML BOTTLE PO SCH ×2 (12:14→21:32)
[2018-01-31] MEDS: CLOTRIMAZOLE/BETAMET DIPROP 15 GM TUBE TP SCH ×2 (15:34→21:31)
[2018-01-31] MEDS: SENNOSIDES 8.6MG TABLET (FP) PO SCH (21:31)
[2018-01-31] MEDS: ATORVASTATIN CA 20 MG TABLET (FP) PO SCH (21:32)
[2018-01-31] MEDS: ACETAMINOPHEN 325 MG TABLET (FP) PO PRN (21:32)
[2018-01-31] MEDS: traZODone HCL 50 MG TABLET (FP) PO SCH (21:32)
[2018-01-31] MEDS: MIRTAZAPINE 15 MG TABLET (FP) PO SCH (21:35)
[2018-02-01] MEDS: HEPARIN NA (PORCINE) 5,000 UNITS/ML 1ML VIAL SQ SCH ×3 (06:26→22:08)
[2018-02-01] MEDS: hydrOXYzine HCL 10 MG TABLET PO SCH ×3 (06:26→22:08)
[2018-02-01] MEDS: LEVOTHYROXINE NA 25 MCG TABLET (FP) PO SCH (06:26)
[2018-02-01 07:19] LABS: BASO % 0.2 % (0-2.0); EOS % 0.6 % (0-4.5); HEMATOCRIT 34.8 % (32.4-45.2); HEMOGLOBIN 10.9 GM/dL (10.7-15.3); LYMPH % 31.9 % (8-40); MCH 28.2 pg (25.7-33.7); MCHC 31.3 g/dl (32.0-36.0); MEAN CELL VOLUME 90.2 fl (80-96); MEAN PLT VOLUME 8.2 fl (7.5-11.1); MONO % 7.4 % (3.8-10.2); NEUT % 59.9 % (42.8-82.8); PLATELET COUNT 242 K/MM3 (134-434); RBC 3.86 M/mm3 (3.60-5.2); RDW 13.6 % (11.6-15.6); WHITE BLOOD COUNT 6.3 K/mm3 (4.0-10.0)
[2018-02-01] MEDS: ALBUTEROL SO4 2.5/IPRATROPIUM 0.5 INH SOL 3 ML VIAL.NEB. NEB SCH ×4 (07:30→21:10)
[2018-02-01 07:37] LABS: ALBUMIN 3.3 g/dl (3.4-5.0); ALK PHOS 72 U/L (45-117); ANION GAP 6 (8-16); BILIRUBIN,TOTAL 0.3 mg/dL (0.2-1.0); BLOOD UREA NITROGEN 24 mg/dL (7-18); CALCIUM 8.8 mg/dL (8.5-10.1); CHLORIDE 98 mmol/L (98-107); CO2 37 mmol/L (21-32); CREATININE 0.5 mg/dL (0.55-1.02); GLUCOSE,RANDOM 66 mg/dL (74-106); POTASSIUM 4.4 mmol/L (3.5-5.1); SGOT/AST 15 U/L (15-37); SGPT/ALT 36 U/L (12-78); SODIUM 141 mmol/L (136-145); TOT PROT 6.7 g/dl (6.4-8.2)
[2018-02-01] MEDS ORDERED: PT OWN MED DRAWER 7, Y5N ONE (09:49)
[2018-02-01] MEDS: ALPRAZolam 0.25 MG TABLET PO PRN (09:58)
[2018-02-01] MEDS: FUROSEMIDE 40 MG/4 ML INJECTABLE VIAL IVPUSH SCH (09:58)
[2018-02-01] MEDS: ASPIRIN 81 MG CHEWABLE TABLETS PO SCH (09:58)
[2018-02-01] MEDS: BUDESONIDE/FORMETEROL FUMARATE 160/4.5 mcg INHALER IH SCH ×2 (09:58→22:09)
[2018-02-01] MEDS: ESCITALOPRAM OXALATE 20 MG TABLET (FP) PO SCH (09:58)
[2018-02-01] MEDS: DOCUSATE SODIUM 100 MG CAPSULE (FP) PO SCH (09:58)
[2018-02-01] MEDS: CLOTRIMAZOLE/BETAMET DIPROP 15 GM TUBE TP SCH ×2 (09:59→22:07)
[2018-02-01] MEDS: POLYETHYLENE GLYCOL 3350 119 GM BTL PO SCH (09:59)
[2018-02-01] MEDS: ARIPiprazole 5 MG TABLET (FP) PO SCH (09:59)
[2018-02-01] MEDS: GABAPENTIN 250 MG/5 ML ORAL SOLUTION, 470 ML BOTTLE PO SCH ×2 (12:00→22:31)
--- NOTE | 2018-02-01 12:17 | PN ---
Progress Note (short form) - Note Progress Note: PULMONARY Vented on volume assist control with 50% FiO2. No fevers recorded. Vital Signs Period Temp Pulse Resp BP Sys/Petersen Pulse Ox Last 24 Hr 97.6 F-98.4 F 50-62 17-26 107-116/54-66 97-99 Gen: vented, mildly tachypneic Heart: RRR Lung: distant breath sounds Abd: soft, nontender Ext: no edema CBC, BMP 02/01/18 05:55 02/01/18 05:55 Active Medications Acetaminophen (Tylenol -) 650 mg PO Q4H PRN PRN Reason: PAIN LEVEL 1-5 Last Admin: 01/31/18 21:32 Dose: 650 mg Albuterol Sulfate (Ventolin Hfa Inhaler -) 2 puff IH Q6H PRN PRN Reason: SHORTNESS OF BREATH Albuterol/Ipratropium (Duoneb -) 1 amp NEB RQID [facility] Last Admin: 02/01/18 11:12 Dose: 1 amp Alprazolam (Xanax -) 0.25 mg PO Q8H PRN PRN Reason: ANXIETY Last Admin: 02/01/18 09:58 Dose: 0.25 mg Aripiprazole (Abilify) 5 mg PO DAILY [facility] Last Admin: 02/01/18 09:59 Dose: 5 mg Aspirin (Asa -) 81 mg PO DAILY [facility] Last Admin: 02/01/18 09:58 Dose: 81 mg Atorvastatin Calcium (Lipitor -) 20 mg PO HS [facility] Last Admin: 01/31/18 21:32 Dose: 20 mg Budesonide/Formoterol Fumarate (Symbicort 160/4.5mcg -) 1 puff IH BID [facility] Last Admin: 02/01/18 09:58 Dose: 1 puff Clotrimazole (Lotrisone Cream (Small Tube)) 1 applic TP BID [facility] Last Admin: 02/01/18 09:59 Dose: 1 applic Docusate Sodium (Colace -) 100 mg PO DAILY [facility] Last Admin: 02/01/18 09:58 Dose: 100 mg Escitalopram Oxalate (Lexapro -) 20 mg PO DAILY [facility] Last Admin: 02/01/18 09:58 Dose: 20 mg Furosemide (Lasix Injection -) 40 mg IVPUSH DAILY [facility] Last Admin: 02/01/18 09:58 Dose: 40 mg Gabapentin (Neurontin Oral Liquid -) 250 mg PO BID [facility] Last Admin: 01/31/18 21:32 Dose: 250 mg Heparin Sodium (Porcine) (Heparin -) 5,000 unit SQ TID [facility] Last Admin: 02/01/18 06:26 Dose: 5,000 unit Hydroxyzine HCl (Atarax -) 10 mg PO TID [facility] Last Admin: 02/01/18 06:26 Dose: 10 mg Levothyroxine Sodium (Synthroid -) 25 mcg PO DAILY@0700 [facility] Last Admin: 02/01/18 06:26 Dose: 25 mcg Mirtazapine (Remeron -) 15 mg PO [facility] Last Admin: 01/31/18 21:35 Dose: 15 mg Polyethylene Glycol (Miralax (For Daily Use) -) 17 gm PO DAILY [facility] Last Admin: 02/01/18 09:59 Dose: Not Given Senna (Senna -) 2 tab PO [facility] Last Admin: 01/31/18 21:31 Dose: 2 tab Trazodone HCl (Desyrel -) 50 mg PO [facility] Last Admin: 01/31/18 21:32 Dose: 50 mg A/P Acute on Chronic Hypoxic and Hypercapneic Respiratory Failure LV Diastolic Dysfunction Pleural Effusions Recent Pneumonia Morbid Obesity NOY/OHS COPD Seizure Disorder - continue lasix - monitor urine output, creatinine - placed on CPAP/PS - if can tolerate, can attempt trach collar 50% FiO2 - PO as tolerated - DVT prophylaxis
--- NOTE | 2018-02-01 13:33 | PN ---
Progress Note (short form) - Note Progress Note: patient seen/and examined Comfortable On CPAP--50%--tolerating Vital Signs Temp 98 F 02/01/18 06:00 Pulse 51 L 02/01/18 08:01 Resp 26 H 02/01/18 11:10 BP 107/59 02/01/18 06:00 Pulse Ox 99 02/01/18 11:11 Intake & Output 01/31/18 02/01/18 02/01/18 23:59 11:59 23:59 Intake Total 1000 400 Balance 1000 400 Weight 319 lb 12.8 oz Intake: Oral 1000 400 Other: Voiding Method Incontinent Incontinent # Unmeasured Voids Void 2 3 Bowel Movement Yes: big No # Bowel Movements 1 Weight Measurement Method Patient Lift Scale Active Medications Acetaminophen (Tylenol -) 650 mg PO Q4H PRN PRN Reason: PAIN LEVEL 1-5 Last Admin: 01/31/18 21:32 Dose: 650 mg Albuterol Sulfate (Ventolin Hfa Inhaler -) 2 puff IH Q6H PRN PRN Reason: SHORTNESS OF BREATH Albuterol/Ipratropium (Duoneb -) 1 amp NEB RQID [facility] Last Admin: 02/01/18 11:12 Dose: 1 amp Alprazolam (Xanax -) 0.25 mg PO Q8H PRN PRN Reason: ANXIETY Last Admin: 02/01/18 09:58 Dose: 0.25 mg Aripiprazole (Abilify) 5 mg PO DAILY [facility] Last Admin: 02/01/18 09:59 Dose: 5 mg Aspirin (Asa -) 81 mg PO DAILY [facility] Last Admin: 02/01/18 09:58 Dose: 81 mg Atorvastatin Calcium (Lipitor -) 20 mg PO HS [facility] Last Admin: 01/31/18 21:32 Dose: 20 mg Budesonide/Formoterol Fumarate (Symbicort 160/4.5mcg -) 1 puff IH BID [facility] Last Admin: 02/01/18 09:58 Dose: 1 puff Clotrimazole (Lotrisone Cream (Small Tube)) 1 applic TP BID [facility] Last Admin: 02/01/18 09:59 Dose: 1 applic Docusate Sodium (Colace -) 100 mg PO DAILY [facility] Last Admin: 02/01/18 09:58 Dose: 100 mg Escitalopram Oxalate (Lexapro -) 20 mg PO DAILY [facility] Last Admin: 02/01/18 09:58 Dose: 20 mg Furosemide (Lasix Injection -) 40 mg IVPUSH DAILY [facility] Last Admin: 02/01/18 09:58 Dose: 40 mg Gabapentin (Neurontin Oral Liquid -) 250 mg PO BID [facility] Last Admin: 01/31/18 21:32 Dose: 250 mg Heparin Sodium (Porcine) (Heparin -) 5,000 unit SQ TID [facility] Last Admin: 02/01/18 06:26 Dose: 5,000 unit Hydroxyzine HCl (Atarax -) 10 mg PO TID [facility] Last Admin: 02/01/18 06:26 Dose: 10 mg Levothyroxine Sodium (Synthroid -) 25 mcg PO DAILY@0700 [facility] Last Admin: 02/01/18 06:26 Dose: 25 mcg Mirtazapine (Remeron -) 15 mg PO [facility] Last Admin: 01/31/18 21:35 Dose: 15 mg Polyethylene Glycol (Miralax (For Daily Use) -) 17 gm PO DAILY [facility] Last Admin: 02/01/18 09:59 Dose: Not Given Senna (Senna -) 2 tab PO [facility] Last Admin: 01/31/18 21:31 Dose: 2 tab Trazodone HCl (Desyrel -) 50 mg PO [facility] Last Admin: 01/31/18 21:32 Dose: 50 mg CBC, BMP 02/01/18 05:55 02/01/18 05:55 Physical Exam Constitutional: Yes: awake--- comfortable Cardiovascular: Yes: Regular Rate and Rhythm Respiratory: Yes: Diminished, Mechanically Ventilated Gastrointestinal: Yes: Normal Bowel Sounds, Soft, Abdomen, Obese. No: Tenderness Edema: No Assessment/Plan clinically stable--better Continue present care Vent support---trach collar if continued to have decreased need of oxygen Pulmonary on case Contact precautions Chronic Acinetobacter--- likely colonization-- afebrile Will follow. Problem List - Problems (1) Respiratory disease Code(s): J98.9 - RESPIRATORY DISORDER, UNSPECIFIED (2) Acute on chronic respiratory failure with hypoxia and hypercapnia Code(s): J96.21 - ACUTE AND CHRONIC RESPIRATORY FAILURE WITH HYPOXIA; J96.22 - ACUTE AND CHRONIC RESPIRATORY FAILURE WITH HYPERCAPNIA (3) Morbid obesity Code(s): E66.01 - MORBID (SEVERE) OBESITY DUE TO EXCESS CALORIES (4) Tracheostomy dependence Code(s): Z93.0 - TRACHEOSTOMY STATUS
[2018-02-01] MEDS: ATORVASTATIN CA 20 MG TABLET (FP) PO SCH (22:08)
[2018-02-01] MEDS: traZODone HCL 50 MG TABLET (FP) PO SCH (22:08)
[2018-02-01] MEDS: MIRTAZAPINE 15 MG TABLET (FP) PO SCH (22:08)
[2018-02-01] MEDS: SENNOSIDES 8.6MG TABLET (FP) PO SCH (22:09)
[2018-02-02] MEDS ORDERED: PT OWN MED DRAWER 7, Y5N ONE ×3 (01:43→21:45)
[2018-02-02] MEDS: LEVOTHYROXINE NA 25 MCG TABLET (FP) PO SCH (06:28)
[2018-02-02] MEDS: hydrOXYzine HCL 10 MG TABLET PO SCH ×3 (06:28→22:16)
[2018-02-02] MEDS: HEPARIN NA (PORCINE) 5,000 UNITS/ML 1ML VIAL SQ SCH ×4 (06:28→22:16)
[2018-02-02] MEDS: ALBUTEROL SO4 2.5/IPRATROPIUM 0.5 INH SOL 3 ML VIAL.NEB. NEB SCH ×4 (08:36→21:15)
[2018-02-02] MEDS: FUROSEMIDE 40 MG/4 ML INJECTABLE VIAL IVPUSH SCH (10:04)
[2018-02-02] MEDS: ESCITALOPRAM OXALATE 20 MG TABLET (FP) PO SCH (10:04)
[2018-02-02] MEDS: DOCUSATE SODIUM 100 MG CAPSULE (FP) PO SCH (10:04)
[2018-02-02] MEDS: ASPIRIN 81 MG CHEWABLE TABLETS PO SCH (10:04)
[2018-02-02] MEDS: BUDESONIDE/FORMETEROL FUMARATE 160/4.5 mcg INHALER IH SCH ×2 (10:04→22:18)
[2018-02-02] MEDS: ARIPiprazole 5 MG TABLET (FP) PO SCH (10:05)
[2018-02-02] MEDS: CLOTRIMAZOLE/BETAMET DIPROP 15 GM TUBE TP SCH (10:05)
[2018-02-02] MEDS: GABAPENTIN 250 MG/5 ML ORAL SOLUTION, 470 ML BOTTLE PO SCH ×2 (10:06→22:17)
[2018-02-02] MEDS: POLYETHYLENE GLYCOL 3350 119 GM BTL PO SCH (10:06)
[2018-02-02] MEDS: ALPRAZolam 0.25 MG TABLET PO PRN (10:50)
[2018-02-02 11:13] VITALS: BMI 62.3
--- NOTE | 2018-02-02 11:53 | PN ---
Progress Note (short form) - Note Progress Note: PULMONARY Tolerating CPAP/PS with good tidal volumes. No fevers recorded. Vital Signs Period Temp Pulse Resp BP Sys/Petersen Pulse Ox Last 24 Hr 97.9 F-98.4 F 55-71 16-32 108-134/56-68 98 Gen: vented, mildly tachypneic Heart: RRR Lung: distant breath sounds Abd: soft, nontender Ext: no edema CBC, BMP 02/01/18 05:55 02/01/18 05:55 Active Medications Acetaminophen (Tylenol -) 650 mg PO Q4H PRN PRN Reason: PAIN LEVEL 1-5 Last Admin: 01/31/18 21:32 Dose: 650 mg Albuterol Sulfate (Ventolin Hfa Inhaler -) 2 puff IH Q6H PRN PRN Reason: SHORTNESS OF BREATH Albuterol/Ipratropium (Duoneb -) 1 amp NEB RQID [facility] Last Admin: 02/02/18 08:36 Dose: 1 amp Alprazolam (Xanax -) 0.25 mg PO Q8H PRN PRN Reason: ANXIETY Last Admin: 02/02/18 10:50 Dose: 0.25 mg Aripiprazole (Abilify) 5 mg PO DAILY [facility] Last Admin: 02/02/18 10:05 Dose: 5 mg Aspirin (Asa -) 81 mg PO DAILY [facility] Last Admin: 02/02/18 10:04 Dose: 81 mg Atorvastatin Calcium (Lipitor -) 20 mg PO HS [facility] Last Admin: 02/01/18 22:08 Dose: 20 mg Budesonide/Formoterol Fumarate (Symbicort 160/4.5mcg -) 1 puff IH BID [facility] Last Admin: 02/02/18 10:04 Dose: 1 puff Docusate Sodium (Colace -) 100 mg PO DAILY [facility] Last Admin: 02/02/18 10:04 Dose: 100 mg Escitalopram Oxalate (Lexapro -) 20 mg PO DAILY [facility] Last Admin: 02/02/18 10:04 Dose: 20 mg Furosemide (Lasix Injection -) 40 mg IVPUSH DAILY [facility] Last Admin: 02/02/18 10:04 Dose: 40 mg Gabapentin (Neurontin Oral Liquid -) 250 mg PO BID [facility] Last Admin: 02/02/18 10:06 Dose: 250 mg Heparin Sodium (Porcine) (Heparin -) 5,000 unit SQ TID [facility] Last Admin: 02/02/18 06:28 Dose: 5,000 unit Hydroxyzine HCl (Atarax -) 10 mg PO TID [facility] Last Admin: 02/02/18 06:28 Dose: 10 mg Levothyroxine Sodium (Synthroid -) 25 mcg PO DAILY@0700 [facility] Last Admin: 02/02/18 06:28 Dose: 25 mcg Mirtazapine (Remeron -) 15 mg PO [facility] Last Admin: 02/01/18 22:08 Dose: 15 mg Nystatin/Triamcinolone Acetonide (Mycolog Ii Ointment -) 1 applic TP BID [facility] Polyethylene Glycol (Miralax (For Daily Use) -) 17 gm PO DAILY [facility] Last Admin: 02/02/18 10:06 Dose: Not Given Senna (Senna -) 2 tab PO [facility] Last Admin: 02/01/18 22:09 Dose: 2 tab Trazodone HCl (Desyrel -) 50 mg PO [facility] Last Admin: 02/01/18 22:08 Dose: 50 mg A/P Acute on Chronic Hypoxic and Hypercapneic Respiratory Failure LV Diastolic Dysfunction Pleural Effusions Recent Pneumonia Morbid Obesity NOY/OHS COPD Seizure Disorder - continue lasix - monitor urine output, creatinine - can attempt trach collar 50% FiO2 - PO as tolerated - DVT prophylaxis
--- NOTE | 2018-02-02 12:45 | PN ---
Progress Note, Physician Chief Complaint: SOB decreased secretions+ less tolerating CPAP - Current Medication List Current Medications: Active Medications Acetaminophen (Tylenol -) 650 mg PO Q4H PRN PRN Reason: PAIN LEVEL 1-5 Last Admin: 01/31/18 21:32 Dose: 650 mg Albuterol Sulfate (Ventolin Hfa Inhaler -) 2 puff IH Q6H PRN PRN Reason: SHORTNESS OF BREATH Albuterol/Ipratropium (Duoneb -) 1 amp NEB RQID [facility] Last Admin: 02/02/18 12:25 Dose: 1 amp Alprazolam (Xanax -) 0.25 mg PO Q8H PRN PRN Reason: ANXIETY Last Admin: 02/02/18 10:50 Dose: 0.25 mg Aripiprazole (Abilify) 5 mg PO DAILY [facility] Last Admin: 02/02/18 10:05 Dose: 5 mg Aspirin (Asa -) 81 mg PO DAILY [facility] Last Admin: 02/02/18 10:04 Dose: 81 mg Atorvastatin Calcium (Lipitor -) 20 mg PO HS [facility] Last Admin: 02/01/18 22:08 Dose: 20 mg Budesonide/Formoterol Fumarate (Symbicort 160/4.5mcg -) 1 puff IH BID [facility] Last Admin: 02/02/18 10:04 Dose: 1 puff Docusate Sodium (Colace -) 100 mg PO DAILY [facility] Last Admin: 02/02/18 10:04 Dose: 100 mg Escitalopram Oxalate (Lexapro -) 20 mg PO DAILY [facility] Last Admin: 02/02/18 10:04 Dose: 20 mg Furosemide (Lasix Injection -) 40 mg IVPUSH DAILY [facility] Last Admin: 02/02/18 10:04 Dose: 40 mg Gabapentin (Neurontin Oral Liquid -) 250 mg PO BID [facility] Last Admin: 02/02/18 10:06 Dose: 250 mg Heparin Sodium (Porcine) (Heparin -) 5,000 unit SQ TID [facility] Last Admin: 02/02/18 06:28 Dose: 5,000 unit Hydroxyzine HCl (Atarax -) 10 mg PO TID [facility] Last Admin: 02/02/18 06:28 Dose: 10 mg Levothyroxine Sodium (Synthroid -) 25 mcg PO DAILY@0700 [facility] Last Admin: 02/02/18 06:28 Dose: 25 mcg Mirtazapine (Remeron -) 15 mg PO [facility] Last Admin: 02/01/18 22:08 Dose: 15 mg Nystatin/Triamcinolone Acetonide (Mycolog Ii Ointment -) 1 applic TP BID [facility] Polyethylene Glycol (Miralax (For Daily Use) -) 17 gm PO DAILY [facility] Last Admin: 02/02/18 10:06 Dose: Not Given Senna (Senna -) 2 tab PO [facility] Last Admin: 02/01/18 22:09 Dose: 2 tab Trazodone HCl (Desyrel -) 50 mg PO [facility] Last Admin: 02/01/18 22:08 Dose: 50 mg - Objective Vital Signs: Vital Signs Temperature 97.9 F 02/02/18 06:00 Pulse Rate 55 L 02/02/18 06:00 Respiratory Rate 26 H 02/02/18 12:26 Blood Pressure 134/68 02/02/18 06:00 O2 Sat by Pulse Oximetry (%) 98 02/02/18 09:00 Constitutional: Yes: No Distress, Calm Cardiovascular: Yes: Regular Rate and Rhythm Respiratory: Yes: Diminished Gastrointestinal: Yes: Normal Bowel Sounds, Soft, Abdomen, Obese. No: Tenderness Edema: No Labs: CBC, BMP 02/01/18 05:55 02/01/18 05:55 INR, PTT INR 1.07 (0.82-1.09) 01/28/18 06:40 Problem List - Problems (1) Morbid (severe) obesity due to excess calories Code(s): E66.01 - MORBID (SEVERE) OBESITY DUE TO EXCESS CALORIES (2) Respiratory disease Code(s): J98.9 - RESPIRATORY DISORDER, UNSPECIFIED (3) Acute on chronic respiratory failure with hypoxia and hypercapnia Code(s): J96.21 - ACUTE AND CHRONIC RESPIRATORY FAILURE WITH HYPOXIA; J96.22 - ACUTE AND CHRONIC RESPIRATORY FAILURE WITH HYPERCAPNIA (4) Acute respiratory failure Code(s): J96.00 - ACUTE RESPIRATORY FAILURE, UNSP W HYPOXIA OR HYPERCAPNIA Qualifiers: Respiratory failure complication: hypoxia Qualified Code(s): J96.01 - Acute respiratory failure with hypoxia (5) CHF (congestive heart failure) Code(s): I50.9 - HEART FAILURE, UNSPECIFIED (6) Diabetes Code(s): E11.9 - TYPE 2 DIABETES MELLITUS WITHOUT COMPLICATIONS Assessment/Plan PLAN spoke with Pulmonary-- pt will need to be on the vent for longer periods now- she is deconditioned frequent suctioning iv Lasix- change to PO Vent management Heparin sc for DVT prophylaxis
[2018-02-02] MEDS: NYSTATIN/TRIAMCINOLONE TOPICAL OINTMENT 15 GM TUBE TP SCH ×2 (13:55→22:17)
[2018-02-02] MEDS: ATORVASTATIN CA 20 MG TABLET (FP) PO SCH (22:16)
[2018-02-02] MEDS: traZODone HCL 50 MG TABLET (FP) PO SCH (22:16)
[2018-02-02] MEDS: MIRTAZAPINE 15 MG TABLET (FP) PO SCH (22:18)
[2018-02-02] MEDS: SENNOSIDES 8.6MG TABLET (FP) PO SCH (22:19)
[2018-02-03] MEDS: LEVOTHYROXINE NA 25 MCG TABLET (FP) PO SCH (06:51)
[2018-02-03] MEDS: hydrOXYzine HCL 10 MG TABLET PO SCH ×2 (06:51→14:06)
[2018-02-03] MEDS: HEPARIN NA (PORCINE) 5,000 UNITS/ML 1ML VIAL SQ SCH ×2 (06:52→14:07)
[2018-02-03] MEDS: ALBUTEROL SO4 2.5/IPRATROPIUM 0.5 INH SOL 3 ML VIAL.NEB. NEB SCH ×3 (08:30→16:50)
[2018-02-03] MEDS: DOCUSATE SODIUM 100 MG CAPSULE (FP) PO SCH (09:24)
[2018-02-03] MEDS: ASPIRIN 81 MG CHEWABLE TABLETS PO SCH (09:25)
[2018-02-03] MEDS: ESCITALOPRAM OXALATE 20 MG TABLET (FP) PO SCH (09:25)
[2018-02-03] MEDS: FUROSEMIDE 40 MG/4 ML INJECTABLE VIAL IVPUSH SCH (09:26)
[2018-02-03] MEDS: ARIPiprazole 5 MG TABLET (FP) PO SCH (09:26)
[2018-02-03] MEDS: GABAPENTIN 250 MG/5 ML ORAL SOLUTION, 470 ML BOTTLE PO SCH (09:28)
[2018-02-03] MEDS: BUDESONIDE/FORMETEROL FUMARATE 160/4.5 mcg INHALER IH SCH (09:32)
[2018-02-03] MEDS: POLYETHYLENE GLYCOL 3350 119 GM BTL PO SCH (09:33)
--- NOTE | 2018-02-03 12:12 | PN ---
Progress Note, Physician History of Present Illness: pulmonary alert,on trach collar comfortable,-resp distress - Current Medication List Current Medications: Active Medications Acetaminophen (Tylenol -) 650 mg PO Q4H PRN PRN Reason: PAIN LEVEL 1-5 Last Admin: 01/31/18 21:32 Dose: 650 mg Albuterol Sulfate (Ventolin Hfa Inhaler -) 2 puff IH Q6H PRN PRN Reason: SHORTNESS OF BREATH Albuterol/Ipratropium (Duoneb -) 1 amp NEB RQID [facility] Last Admin: 02/03/18 08:30 Dose: 1 amp Alprazolam (Xanax -) 0.25 mg PO Q8H PRN PRN Reason: ANXIETY Last Admin: 02/02/18 10:50 Dose: 0.25 mg Aripiprazole (Abilify) 5 mg PO DAILY [facility] Last Admin: 02/03/18 09:26 Dose: 5 mg Aspirin (Asa -) 81 mg PO DAILY [facility] Last Admin: 02/03/18 09:25 Dose: 81 mg Atorvastatin Calcium (Lipitor -) 20 mg PO HS [facility] Last Admin: 02/02/18 22:16 Dose: 20 mg Budesonide/Formoterol Fumarate (Symbicort 160/4.5mcg -) 1 puff IH BID [facility] Last Admin: 02/03/18 09:32 Dose: 1 puff Docusate Sodium (Colace -) 100 mg PO DAILY [facility] Last Admin: 02/03/18 09:24 Dose: 100 mg Escitalopram Oxalate (Lexapro -) 20 mg PO DAILY [facility] Last Admin: 02/03/18 09:25 Dose: 20 mg Furosemide (Lasix Injection -) 40 mg IVPUSH DAILY [facility] Last Admin: 02/03/18 09:26 Dose: 40 mg Gabapentin (Neurontin Oral Liquid -) 250 mg PO BID [facility] Last Admin: 02/03/18 09:28 Dose: 250 mg Heparin Sodium (Porcine) (Heparin -) 5,000 unit SQ TID [facility] Last Admin: 02/03/18 06:52 Dose: Not Given Hydroxyzine HCl (Atarax -) 10 mg PO TID [facility] Last Admin: 02/03/18 06:51 Dose: 10 mg Levothyroxine Sodium (Synthroid -) 25 mcg PO DAILY@0700 [facility] Last Admin: 02/03/18 06:51 Dose: 25 mcg Mirtazapine (Remeron -) 15 mg PO [facility] Last Admin: 02/02/18 22:18 Dose: 15 mg Nystatin/Triamcinolone Acetonide (Mycolog Ii Ointment -) 1 applic TP BID [facility] Last Admin: 02/02/18 22:17 Dose: 1 applic Polyethylene Glycol (Miralax (For Daily Use) -) 17 gm PO DAILY [facility] Last Admin: 02/03/18 09:33 Dose: Not Given Senna (Senna -) 2 tab PO [facility] Last Admin: 02/02/18 22:19 Dose: Not Given Trazodone HCl (Desyrel -) 50 mg PO [facility] Last Admin: 02/02/18 22:16 Dose: 50 mg - Objective Vital Signs: Vital Signs Temperature 98 F 02/03/18 09:00 Pulse Rate 68 02/03/18 09:00 Respiratory Rate 22 02/03/18 09:00 Blood Pressure 117/65 02/03/18 09:00 O2 Sat by Pulse Oximetry (%) 97 02/03/18 09:00 Constitutional: Yes: Calm, Obese Eyes: Yes: WNL HENT: Yes: WNL Neck: Yes: Supple (trach) Cardiovascular: Yes: Regular Rate and Rhythm, S1, S2 Respiratory: Yes: Rhonchi (few rhonchi) Gastrointestinal: Yes: Normal Bowel Sounds, Soft Extremities: Yes: WNL Edema: No Labs: Problem List - Problems (1) Acute on chronic respiratory failure with hypoxia and hypercapnia Code(s): J96.21 - ACUTE AND CHRONIC RESPIRATORY FAILURE WITH HYPOXIA; J96.22 - ACUTE AND CHRONIC RESPIRATORY FAILURE WITH HYPERCAPNIA (2) CHF (congestive heart failure) Code(s): I50.9 - HEART FAILURE, UNSPECIFIED (3) COPD exacerbation Code(s): J44.1 - CHRONIC OBSTRUCTIVE PULMONARY DISEASE W (ACUTE) EXACERBATION (4) Depression Code(s): F32.9 - MAJOR DEPRESSIVE DISORDER, SINGLE EPISODE, UNSPECIFIED (5) Diabetes Code(s): E11.9 - TYPE 2 DIABETES MELLITUS WITHOUT COMPLICATIONS (6) Pneumonia Code(s): J18.9 - PNEUMONIA, UNSPECIFIED ORGANISM (7) Tracheostomy dependence Code(s): Z93.0 - TRACHEOSTOMY STATUS (8) Morbid (severe) obesity due to excess calories Code(s): E66.01 - MORBID (SEVERE) OBESITY DUE TO EXCESS CALORIES Assessment/Plan IMP ACUTE ON CHRONIC HYPERCAPNEIC/HYPOXEMIC RESPIRATORY FAILURE IMPROVED CHF RECENT PNEUMONIA BILATERAL PLEURAL EFFUSIONS END STAGE COPD SEIZURES DEPRESSION MORBID OBESITY PLAN VENT SUPPORT AT NIGHT ,TRACH COLLAR DURING DAYTIME TOLERATED LASIX PO TRACHEAL SUCTIONING DVT PROPHYLAXIS DR STEELE Problem List - Problems (1) Acute on chronic respiratory failure with hypoxia and hypercapnia Code(s): J96.21 - ACUTE AND CHRONIC RESPIRATORY FAILURE WITH HYPOXIA; J96.22 - ACUTE AND CHRONIC RESPIRATORY FAILURE WITH HYPERCAPNIA (2) CHF (congestive heart failure) Code(s): I50.9 - HEART FAILURE, UNSPECIFIED (3) COPD exacerbation Code(s): J44.1 - CHRONIC OBSTRUCTIVE PULMONARY DISEASE W (ACUTE) EXACERBATION (4) Depression Code(s): F32.9 - MAJOR DEPRESSIVE DISORDER, SINGLE EPISODE, UNSPECIFIED (5) Diabetes Code(s): E11.9 - TYPE 2 DIABETES MELLITUS WITHOUT COMPLICATIONS (6) Pneumonia Code(s): J18.9 - PNEUMONIA, UNSPECIFIED ORGANISM (7) Tracheostomy dependence Code(s): Z93.0 - TRACHEOSTOMY STATUS (8) Morbid (severe) obesity due to excess calories Code(s): E66.01 - MORBID (SEVERE) OBESITY DUE TO EXCESS CALORIES
[2018-02-03] MEDS: ACETAMINOPHEN 325 MG TABLET (FP) PO PRN (12:16)
[2018-02-03] MEDS: NYSTATIN/TRIAMCINOLONE TOPICAL OINTMENT 15 GM TUBE TP SCH (12:18)
--- NOTE | 2018-02-03 12:28 | DS ---
Physical Examination Vital Signs: Vital Signs Temperature 98 F 02/03/18 09:00 Pulse Rate 68 02/03/18 09:00 Respiratory Rate 22 02/03/18 09:00 Blood Pressure 117/65 02/03/18 09:00 O2 Sat by Pulse Oximetry (%) 97 02/03/18 09:00 Constitutional: Yes: No Distress, Calm Cardiovascular: Yes: Regular Rate and Rhythm Respiratory: Yes: Diminished Gastrointestinal: Yes: Normal Bowel Sounds, Soft, Abdomen, Obese. No: Tenderness Edema: No Labs: CBC, BMP 02/01/18 05:55 02/01/18 05:55 Discharge Summary Reason For Visit: RESPIRATORY DISTRESS Current Active Problems Morbid (severe) obesity due to excess calories (Acute) Respiratory disease (Acute) Hospital Course: Pt admitted for respiratory distress No need for antibiotics Seen by ID and Pulmonary She was placed on ventilator here for longer periods of time initially and was on iv Lasix She diuresed well Started CPAP trials Tolerating now 50% trach collar spoke with sister Pt will need vent for the night and as needed for the daytime - she can be on the trach collar in the day Condition: Improved - Instructions Diet, Activity, Other Instructions: Pt will need mechanical ventilator for the night and as needed for the daytime - she can be on the trach collar in the day Disposition: CUSTODIAL FACILITY - Home Medications Comprehensive Discharge Medication List: Ambulatory Orders Acetaminophen 650 mg PO DAILY 10/18/17 Albuterol 2.5/Ipratropium 0.5 [Duoneb -] 1 neb NEB Q4H 10/18/17 Albuterol Sulfate [Proair Respiclick] 90 mcg IH TID 10/18/17 Aripiprazole 5 mg PO DAILY 10/18/17 Aspirin 81 mg PO DAILY 10/18/17 Ergocalciferol (Vitamin D2) [Vitamin D2] 50,000 unit PO WEEKLY 10/18/17 Furosemide [Lasix -] 20 mg PO DAILY 10/18/17 Gabapentin 250 mg PO BID 10/18/17 Heparin Sod,Porcine/0.9 % NaCl [Heparin 5,000 Unit/1,000 ml-Ns] 5,000 unit SCJ BID 10/18/17 Insulin Lispro [Humalog] 0 unit SQ ASDIR 10/18/17 Lactobacillus Acidophilus [Acidophilus] 1 each PO BID 10/18/17 Levothyroxine [Synthroid -] 25 mcg PO DAILY 10/18/17 Mirtazapine 15 mg PO DAILY 10/18/17 Trazodone HCl 50 mg PO DAILY 10/18/17 Alprazolam [Xanax] 0.25 mg PO Q8H PRN #30 tablet MDD 3 01/18/18 Sennosides [Senna -] 2 tab PO HS tablet 01/18/18 Atorvastatin Ca [Lipitor] 20 mg PO HS 01/24/18 Budesonide/Formeterol Fumarate [SYMBICORT 160/4.5mcg -] 1 inh PO BID 01/24/18 Clotrimazole/Betamet Diprop [Lotrisone Cream (Small Tube)] 1 applic TP BID 01/24 Docusate Sodium [Colace] 100 mg PO DAILY 01/24/18 Escitalopram Oxalate [Lexapro -] 20 mg PO DAILY 01/24/18 Magnesium Hydroxide [Milk of Magnesia] 400 mg PO ASDIR PRN 01/24/18 Polyethylene Glycol 3350 [Gavilax] 17 gm PO DAILY 01/24/18 Vit A/Vitamin D3/E/Aloe V/Zinc [Periguard Ointment] 100 gm TP BID 01/24/18 hydrOXYzine HCL [Atarax -] 10 mg PO TID 01/24/18
[2018-02-03 14:01] VITALS: BP 119/64; PULSE 73; TEMP 98.8
== END 2018-02-03 17:25 | DRG 207 ==
LOC: JER 18:05 → JERBED 21:30 → J5S 01-25 21:36 → OBSVTOIN 01-31 11:30
PROVIDERS: ADMIT Internal Medicine; ATTEND Internal Medicine
PROC: 5A1955Z Respiratory Ventilation, Greater than 96 Consecutive Hours (ICD-10-PCS; principal; 2018-01-26)
DX: J96.21 Acute and chronic respiratory failure with hypoxia (principal); Z68.44 Body mass index [BMI] 60.0-69.9, adult; J90 Pleural effusion, not elsewhere classified; J44.1 Chronic obstructive pulmonary disease with (acute) exacerbation; J44.9 Chronic obstructive pulmonary disease, unspecified; J96.22 Acute and chronic respiratory failure with hypercapnia; G40.909 Epilepsy, unspecified, not intractable, without status epilepticus; F31.9 Bipolar disorder, unspecified; D64.9 Anemia, unspecified; E66.01 Morbid (severe) obesity due to excess calories; F32.9 Major depressive disorder, single episode, unspecified; E11.9 Type 2 diabetes mellitus without complications; G47.33 Obstructive sleep apnea (adult) (pediatric); J04.10 Acute tracheitis without obstruction; I50.9 Heart failure, unspecified; Z87.891 Personal history of nicotine dependence; Z93.0 Tracheostomy status
CPT/HCPCS: 36415; 36600; 71045-TC-FY; 80053; 82375; 82728; 82803; 83050; 83540; 83550; 83880; 85025; 85610; 85730; 87070; 87186; 87205; 93005; 93010; 94002; 94640; 99285-25; G0378; J1644; J7620

== ENCOUNTER 2018-03-02 10:29 | Inpatient (IN) | payer OTHER ==
--- NOTE | 2018-03-02 12:12 | PDOC ---
History of Present Illness - General Chief Complaint: Trach Tube Replacement Stated Complaint: CHANGE TRACH Time Seen by Provider: 03/02/18 10:46 History Source: Patient Exam Limitations: No Limitations - History of Present Illness Initial Comments: 52 y/o female presenting to [facility] ER from [facility] complaining of shortness of breath with normal oxygen saturations. Pt has been trached since Jun 2017 for hypoxic respiratory failure and chronic hypercarbia. Patient presents complaining of two days of shortness of breath with new onset red/brown tinged secretions from deep tracheal suctioning. Also endorsing rhinorrhea, chills, diaphoresis sore throat, headache, decrease appetite, and increased urinary frequency without dysuria or fever. Patient was admitted to the hospital in December 2017 for pneumonia; sputum cultures grew Acinetobacter Bamannii/ Haemol; earlier cultures grew e.Coli and Diphtheroid/Corynebacterium. Trach: 7.0 Cuffed. Placed Jun 2017 at [facility]. Last changed 3 months ago. Past History - Past Medical History Allergies/Adverse Reactions: Allergies Allergy/AdvReac Type Severity Reaction Status Date / Time No Known Allergies Allergy Unverified 01/07/18 13:16 Home Medications: Ambulatory Orders Acetaminophen 650 mg PO DAILY 10/18/17 Albuterol 2.5/Ipratropium 0.5 [Duoneb -] 1 neb NEB Q4H 10/18/17 Albuterol Sulfate [Proair Respiclick] 90 mcg IH TID 10/18/17 Aripiprazole 5 mg PO DAILY 10/18/17 Aspirin 81 mg PO DAILY 10/18/17 Ergocalciferol (Vitamin D2) [Vitamin D2] 50,000 unit PO WEEKLY 10/18/17 Furosemide [Lasix -] 20 mg PO DAILY 10/18/17 Heparin Sod,Porcine/0.9 % NaCl [Heparin 5,000 Unit/1,000 ml-Ns] 5,000 unit SCJ BID 10/18/17 Insulin Lispro [Humalog] 0 unit SQ ASDIR 10/18/17 Lactobacillus Acidophilus [Acidophilus] 1 each PO BID 10/18/17 Levothyroxine [Synthroid -] 25 mcg PO DAILY 10/18/17 Mirtazapine 15 mg PO DAILY 10/18/17 traZODone HCL [Trazodone HCl] 50 mg PO DAILY 10/18/17 Alprazolam [Xanax] 0.25 mg PO Q8H PRN #30 tablet MDD 3 01/18/18 Sennosides [Senna -] 2 tab PO HS tablet 01/18/18 Atorvastatin Ca [Lipitor] 20 mg PO HS 01/24/18 Budesonide/Formeterol Fumarate [SYMBICORT 160/4.5mcg -] 1 inh PO BID 01/24/18 Clotrimazole/Betamet Diprop [Lotrisone -] 1 applic TP BID 01/24/18 Docusate Sodium [Colace] 100 mg PO DAILY 01/24/18 Escitalopram Oxalate [Lexapro -] 20 mg PO DAILY 01/24/18 Magnesium Hydroxide [Milk of Magnesia] 400 mg PO ASDIR PRN 01/24/18 Polyethylene Glycol 3350 [Gavilax] 17 gm PO DAILY 01/24/18 Vit A/Vitamin D3/E/Aloe V/Zinc [Periguard Ointment] 100 gm TP BID 01/24/18 hydrOXYzine HCL [Atarax -] 10 mg PO TID 01/24/18 Alprazolam [Xanax] 0.25 mg PO Q8H PRN #30 tablet MDD 3 02/03/18 Furosemide [Lasix] 40 mg PO DAILY #20 tablet 02/03/18 Cardiac Disorders: (heart failure- 2013) COPD: Yes CHF: Yes Psychiatric Problems: Yes (bipolar) Seizures: Yes Thyroid Disease: Yes - Immunization History Immunization Up to Date: Yes - Suicide/Smoking/Psychosocial Hx Smoking Status: No Smoking History: Never smoked Have you smoked in the past 12 months: No Number of Cigarettes Smoked Daily: 5 If you are a former smoker, when did you quit?: 2013 Information on smoking cessation initiated: No 'Breaking Loose' booklet given: 05/11/16 Hx Alcohol Use: No Drug/Substance Use Hx: No Substance Use Type: None Hx Substance Use Treatment: No Review of Systems - Review of Systems Able to Perform ROS?: Yes Is the patient limited Vincentian proficient: No Constitutional: Yes: Chills, Diaphoresis, Loss of Appetite, Malaise. No: Fever , Night Sweats, Unintentional Wgt. Loss HEENTM: Yes: Throat Pain. No: Recent change in vision, Difficulty Swallowing Respiratory: Yes: Cough, Shortness of Breath, Wheezing, Productive cough. No: Hemoptysis Cardiac (ROS): No: Chest Pain, Palpitations, Syncope ABD/GI: Yes: Poor Appetite. No: Constipated, Diarrhea, Nausea, Vomiting, Abdominal cramping : Yes: Frequency. No: Burning, Dysuria, Hematuria Musculoskeletal: No: Muscle Pain Integumentary: No: Rash Neurological: Yes: Headache Endocrine: Yes: Increased Urine. No: Increased Thirst Hematologic/Lymphatic: No: Easy Bleeding, Easy Bruising *Physical Exam - Vital Signs Last Vital Signs Temp Pulse Resp BP Pulse Ox 98.7 F 85 20 119/62 96 03/02/18 10:39 03/02/18 10:39 03/02/18 10:39 03/02/18 10:39 03/02/18 10:54 - Physical Exam Comments: Constitutional: Well-developed, obese female in no acute distress. Found trached and connected to ventilator, sitting semi-fowlers in hospital bed. Alert and oriented x4. Answered all questions appropriately and completely. Spoke in short phrases. HEENT: Normocephalic. No obvious external signs of trauma. Hearing grossly normal. No nasal discharge. Neck is supple, trachea is midline. No JVD. Trach and collar in place; site well appearing with clean dressings. Cardiovascular: Regular rate and regular rhythm. No murmur, rubs, clicks, or gallops. Respiratory: On ventilator attached to trach. Shallow respirations with equal chest rise and fall. Mild expiratory wheeze diffuse. Lung sounds decreased in right lower posterior but exam technically difficult secondary to obese body habitus. No stridor and rhonchi. Gastrointestinal: abdomen is soft, non-tender, non-distended. No overlying skin lesions or obvious signs of trauma. Neuro: Alert and oriented. Moving all four extremities spontaneously. ED Treatment Course - LABORATORY CBC & Chemistry Diagram: 03/02/18 11:30 03/02/18 11:30 - RADIOLOGY Radiology Studies Ordered: Category Date Time Status CHEST X-RAY PORTABLE* [RAD] Stat Radiology 03/02/18 11:28 Ordered Medical Decision Making - Medical Decision Making *Reviewed nursing notes and prior visit documentation. 52 y/o trached female presenting for shortness of breath without hypoxia for the past two days. Dark sputum color change, sore throat, and chills. Afebrile. Vitals unremarkable for tachycardia or hypotension. Physical exam revealed decreased breath sounds in decreased in right lower posterior field; mild expiratory wheezing throughout. Concern for bacterial pneumonia in setting of nightly ventilator use and recent hospitalization for similar. Concern for UTI with reported urinary frequency. Low suspicion for sepsis and/or bacteremia as pt is afebrile with unremarkable vitals. Will obtain CBC, CMP, CXR, UA, urine culture, sputum culture, and blood culture. CXR technically poor secondary to obese body habitus. Will treat for healthcare acquired pneumonia given HPI and left-shift noted on CBC. 13:03 Pt coughing over ventilator. Deep suction x2 did not provide relief. Will trial albuterol given cough and slight wheeze. Awaiting CMP to dose antibiotics. Ordered broad spectrum abx Vanc (2g given GFR >50 and obese body habitus) and Zosyn. Paged attending director of laboratory operations for Dr. Josie Rojo for admission for clinical pneumonia. Dr. Rockwell, oncall attending for Dr. Rojo, agrees to admit pt for pneumonia. Requested inpatient med/surg with telemetry bed. Verbally discussed imaging and laboratory results with pt. She expressed verbal understanding and agreement with plan to admit. *DC/Admit/Observation/Transfer Diagnosis at time of Disposition: Pneumonia Qualifiers: Pneumonia type: due to unspecified organism Laterality: unspecified laterality Lung location: unspecified part of lung Qualified Code(s): J18.9 - Pneumonia, unspecified organism - Discharge Dispostion Condition at time of disposition: Stable Decision to Admit order: Yes - Referrals - Patient Instructions - Post Discharge Activity
[2018-03-02 12:14] LABS: BASO % 0.1 % (0-2.0); HEMATOCRIT 34.5 % (32.4-45.2); HEMOGLOBIN 10.8 GM/dL (10.7-15.3); LYMPH % 6.7 % (8-40); MCH 27.7 pg (25.7-33.7); MCHC 31.2 g/dl (32.0-36.0); MEAN CELL VOLUME 88.8 fl (80-96); MEAN PLT VOLUME 7.8 fl (7.5-11.1); MONO % 1.3 % (3.8-10.2); NEUT % 91.9 % (42.8-82.8); PLATELET COUNT 228 K/MM3 (134-434); RBC 3.89 M/mm3 (3.60-5.2); RDW 13.4 % (11.6-15.6); WHITE BLOOD COUNT 8.9 K/mm3 (4.0-10.0)
[2018-03-02 12:19] LABS: URINE APPEARANCE CLEAR; URINE BILIRUBIN NEGATIVE (<2.0 mg/dL); URINE COLOR LTYELLOW; URINE GLUCOSE (UA) NEGATIVE (NEGATIVE); URINE KETONE NEGATIVE (NEGATIVE); URINE LEUK ESTERASE NEGATIVE (NEGATIVE); URINE NITRITE NEGATIVE (NEGATIVE); URINE PROTEIN NEGATIVE (NEGATIVE); URINE UROBILINOGEN NEGATIVE mg/dL (0.2-1.0)
[2018-03-02] MEDS ORDERED: ALBUTEROL SO4 2.5/IPRATROPIUM 0.5 INH SOL 3 ML VIAL.NEB. NEB ONE ×3 (12:40→21:00)
[2018-03-02 12:47] LABS: ALBUMIN 3.3 g/dl (3.4-5.0); ALK PHOS 110 U/L (45-117); ANION GAP 0 (8-16); BILIRUBIN,TOTAL 0.3 mg/dL (0.2-1.0); BLOOD UREA NITROGEN 15 mg/dL (7-18); CALCIUM 9.2 mg/dL (8.5-10.1); CHLORIDE 102 mmol/L (98-107); CO2 41 mmol/L (21-32); CREATININE 0.4 mg/dL (0.55-1.02); GLUCOSE,RANDOM 107 mg/dL (74-106); POTASSIUM 5.3 mmol/L (3.5-5.1); SGOT/AST 22 U/L (15-37); SGPT/ALT 38 U/L (12-78); SODIUM 143 mmol/L (136-145); TOT PROT 6.9 g/dl (6.4-8.2)
[2018-03-02] MEDS ORDERED: VANCOMYCIN 2,000 MG in DEXTROSE 5%-WATER - 250 ML IVPB ONE (13:43)
[2018-03-02] MEDS ORDERED: PIPERACILLIN/TAZOB 4.5 GM 4.5 GM in DEXTROSE 5%-WATER 100 ML IVPB ONE (13:44)
[2018-03-02] MEDS ORDERED: PIPERACILLIN/TAZOB 4.5 GM 4.5 GM/100 ML BAG IVPB ONE (14:01)
[2018-03-02] MEDS ORDERED: VANCOMYCIN 2,000 MG in DEXTROSE 5%-WATER - 500 ML IVPB ONE (14:02)
[2018-03-02 14:28] LABS: ACANTHOCYTES 0; ANISOCYTOSIS 0; HELMET CELLS 0; HOWELL-JOLLY BODIES 0; MACROCYTOSIS 0; OVALOCYTE 0; PLATELET ESTIMATE NORMAL; ROULEAU 0; SICKELED CELLS 0; TARGET CELLS 0; TEAR DROP CELLS 0; TOXIC GRANULATION 0
--- NOTE | 2018-03-02 15:55 | PDOC ---
Attending Attestation - Resident Resident Name: Ashok Cason - ED Attending Attestation I have performed the following: I have examined & evaluated the patient, The case was reviewed & discussed with the resident, I agree w/resident's findings & plan, Exceptions are as noted - HPI HPI: 03/02/18 16:32 agree with residents HPI - Physicial Exam PE: 03/02/18 16:32 Agree with residents PE - Medical Decision Making 03/02/18 16:41 yo female w/ pmh of CHF, chronic hypercapnia, hypoxic respiratory failure, COPD , seizure disorder, bipolar disorder, and trach dependency recently admitted -01/18 for pneumonia who presents from [facility] for evaluation of subjective fever chills difficulty breathing shortness of breath and increased colored secretions. Chest x-ray demonstrates findings at the right base, laboratory analysis demonstrates neutrophilic predominance on differential History examination consistent with clinical pneumonia Given the patient is vented we'll cover with Zosyn and vancomycin and admitted to medicine for further management.
[2018-03-02] MEDS: INSULIN SLIDING SCALE (NOVOLOG) 1 VIAL SQ SCH (16:39)
[2018-03-02] MEDS: ALBUTEROL SO4 2.5/IPRATROPIUM 0.5 INH SOL 3 ML VIAL.NEB. NEB SCH (20:30)
[2018-03-02] MEDS ORDERED: ATORVASTATIN CA 10 MG TABLET (FP) ONE (21:54)
[2018-03-02] MEDS ORDERED: MIRTAZAPINE 15 MG TABLET (FP) ONE (21:54)
[2018-03-02] MEDS ORDERED: [UNRECOGNIZED DRUG - OTHER] SCJ SCH (22:00)
[2018-03-02] MEDS ORDERED: NACL SCJ SCH (22:00)
[2018-03-02] MEDS ORDERED: HEPARIN SOD PORCINE SCJ SCH (22:00)
[2018-03-02] MEDS: hydrOXYzine HCL 10 MG TABLET PO SCH (22:05)
[2018-03-02] MEDS: SENNOSIDES 8.6MG TABLET (FP) PO SCH (22:05)
[2018-03-02] MEDS: ATORVASTATIN CA 20 MG TABLET (FP) PO SCH (22:05)
[2018-03-02] MEDS: MIRTAZAPINE 15 MG TABLET (FP) PO SCH (22:05)
[2018-03-02] MEDS: BUDESONIDE/FORMETEROL FUMARATE 160/4.5 mcg INHALER IH SCH (22:15)
[2018-03-03] MEDS: ALBUTEROL SO4 2.5/IPRATROPIUM 0.5 INH SOL 3 ML VIAL.NEB. NEB SCH ×6 (00:05→20:35)
[2018-03-03 01:36] VITALS: BMI 72.1
[2018-03-03] MEDS: LEVOTHYROXINE NA 25 MCG TABLET (FP) PO SCH (06:42)
[2018-03-03] MEDS: hydrOXYzine HCL 10 MG TABLET PO SCH ×3 (06:42→21:07)
[2018-03-03] MEDS: INSULIN SLIDING SCALE (NOVOLOG) 1 VIAL SQ SCH ×3 (06:42→17:31)
[2018-03-03] MEDS ORDERED: INSULIN (NOVOLOG) ASPART 100 UNITS/ML 10ML VIAL ONE (07:52)
[2018-03-03] MEDS ORDERED: INSULIN (LEVEMIR) 100 UNITS/ML UNITS SQ ONE (07:52)
[2018-03-03 08:47] LABS: BASO % 0.4 % (0-2.0); EOS % 0.7 % (0-4.5); HEMATOCRIT 31.1 % (32.4-45.2); MCH 28.2 pg (25.7-33.7); MCHC 32.2 g/dl (32.0-36.0); MEAN CELL VOLUME 87.5 fl (80-96); MEAN PLT VOLUME 7.7 fl (7.5-11.1); MONO % 4.2 % (3.8-10.2); NEUT % 69.7 % (42.8-82.8); PLATELET COUNT 231 K/MM3 (134-434); RBC 3.55 M/mm3 (3.60-5.2); RDW 13.6 % (11.6-15.6); WHITE BLOOD COUNT 6.1 K/mm3 (4.0-10.0)
[2018-03-03 09:00] LABS: ALBUMIN 3.2 g/dl (3.4-5.0); ANION GAP 5 (8-16); BLOOD UREA NITROGEN 21 mg/dL (7-18); CALCIUM 9.1 mg/dL (8.5-10.1); CHLORIDE 100 mmol/L (98-107); CO2 39 mmol/L (21-32); GLUCOSE,RANDOM 137 mg/dL (74-106); POTASSIUM 3.7 mmol/L (3.5-5.1); SODIUM 144 mmol/L (136-145)
[2018-03-03 09:03] LABS: ALK PHOS 102 U/L (45-117); BILIRUBIN,TOTAL 0.5 mg/dL (0.2-1.0); CREATININE 0.5 mg/dL (0.55-1.02); SGOT/AST 19 U/L (15-37); SGPT/ALT 40 U/L (12-78); TOT PROT 6.5 g/dl (6.4-8.2)
[2018-03-03] MEDS ORDERED: PT OWN MED DRAWER 7, Y5N ONE ×4 (10:20→21:14)
[2018-03-03] MEDS ORDERED: ESCITALOPRAM OXALATE 10 MG TABLET (FP) ONE (10:20)
--- NOTE | 2018-03-03 10:22 | HP ---
Admitting History and Physical - Primary Care Physician PCP: Josie Rojo - Admission Chief Complaint: sob History of Present Illness: pt seen/ examined chart reviewed. well known to me In Summary-- Er notes Reviewed 52 y/o female presenting to [facility] ER from [facility] complaining of shortness of breath with normal oxygen saturations. Pt has been trached since Jun 2017 for hypoxic respiratory failure and chronic hypercarbia. Patient presents complaining of two days of shortness of breath with new onset red/brown tinged secretions from deep tracheal suctioning. Also endorsing rhinorrhea, chills, diaphoresis sore throat, headache, decrease appetite, and increased urinary frequency without dysuria or fever. Patient was admitted to the hospital in December 2017 for pneumonia; sputum cultures grew Acinetobacter Bamannii/ Haemol; earlier cultures grew e.Coli and Diphtheroid/Corynebacterium. Trach: 7.0 Cuffed. Placed Jun 2017 at [facility]. Last changed 3 months ago. Pt started on broad spectrum abx for Pneumonia - New right lower lobe Infiltrate Pt seen/ examined on floor Awake/ comfortable cough + History Source: Medical Record - Past Medical History Pulmonary: Yes: COPD Gastrointestinal: Yes: Other (colon polyps) Heme/Onc: Yes: Anemia Psych: Yes: Bipolar - Smoking History Smoking history: Former smoker Have you smoked in the past 12 months: No Aproximately how many cigarettes per day: 5 If you are a former smoker, when did you quit?: 2013 - Alcohol/Substance Use Hx Alcohol Use: No History of Substance Use: reports: Marijuana - Social History History of Recent Travel: No Home Medications - Allergies Allergies/Adverse Reactions: Allergies Allergy/AdvReac Type Severity Reaction Status Date / Time No Known Allergies Allergy Unverified 01/07/18 13:16 - Home Medications Home Medications: Ambulatory Orders Acetaminophen 650 mg PO DAILY 10/18/17 Albuterol 2.5/Ipratropium 0.5 [Duoneb -] 1 neb NEB Q4H 10/18/17 Albuterol Sulfate [Proair Respiclick] 90 mcg IH TID 10/18/17 Aripiprazole 5 mg PO DAILY 10/18/17 Aspirin 81 mg PO DAILY 10/18/17 Ergocalciferol (Vitamin D2) [Vitamin D2] 50,000 unit PO WEEKLY 10/18/17 Furosemide [Lasix -] 20 mg PO DAILY 10/18/17 Heparin Sod,Porcine/0.9 % NaCl [Heparin 5,000 Unit/1,000 ml-Ns] 5,000 unit SCJ BID 10/18/17 Insulin Lispro [Humalog] 0 unit SQ ASDIR 10/18/17 Lactobacillus Acidophilus [Acidophilus] 1 each PO BID 10/18/17 Levothyroxine [Synthroid -] 25 mcg PO DAILY 10/18/17 Mirtazapine 15 mg PO DAILY 10/18/17 traZODone HCL [Trazodone HCl] 50 mg PO DAILY 10/18/17 Alprazolam [Xanax] 0.25 mg PO Q8H PRN #30 tablet MDD 3 01/18/18 Sennosides [Senna -] 2 tab PO HS tablet 01/18/18 Atorvastatin Ca [Lipitor] 20 mg PO HS 01/24/18 Budesonide/Formeterol Fumarate [SYMBICORT 160/4.5mcg -] 1 inh PO BID 01/24/18 Clotrimazole/Betamet Diprop [Lotrisone -] 1 applic TP BID 01/24/18 Docusate Sodium [Colace] 100 mg PO DAILY 01/24/18 Escitalopram Oxalate [Lexapro -] 20 mg PO DAILY 01/24/18 Magnesium Hydroxide [Milk of Magnesia] 400 mg PO ASDIR PRN 01/24/18 Polyethylene Glycol 3350 [Gavilax] 17 gm PO DAILY 01/24/18 Vit A/Vitamin D3/E/Aloe V/Zinc [Periguard Ointment] 100 gm TP BID 01/24/18 hydrOXYzine HCL [Atarax -] 10 mg PO TID 01/24/18 Alprazolam [Xanax] 0.25 mg PO Q8H PRN #30 tablet MDD 3 02/03/18 Furosemide [Lasix] 40 mg PO DAILY #20 tablet 02/03/18 Review of Systems Findings/Remarks: see [facility] Physical Examination Vital Signs: Vital Signs Temperature 98.4 F 03/03/18 06:00 Pulse Rate 63 03/03/18 06:00 Respiratory Rate 15 03/03/18 06:30 Blood Pressure 131/63 03/03/18 06:00 O2 Sat by Pulse Oximetry (%) 98 03/03/18 04:55 Constitutional: Yes: No Distress, Anxious, Obese Eyes: Yes: Conjunctiva Clear Neck: Yes: Supple, Other (s/p trach) Respiratory: Yes: Diminished Gastrointestinal: Yes: Soft, Abdomen, Obese Edema: No Neurological: Yes: Alert Psychiatric: Yes: Alert Labs: CBC, BMP 03/03/18 08:20 03/03/18 08:20 Imaging - Results Chest X-ray: Report Reviewed Problem List - Problems (1) Bipolar 1 disorder Code(s): F31.9 - BIPOLAR DISORDER, UNSPECIFIED (2) Pneumonia Code(s): J18.9 - PNEUMONIA, UNSPECIFIED ORGANISM Qualifiers: Pneumonia type: due to unspecified organism Laterality: unspecified laterality Lung location: unspecified part of lung Qualified Code(s): J18.9 - Pneumonia, unspecified organism (3) Acute on chronic respiratory failure with hypoxia and hypercapnia Code(s): J96.21 - ACUTE AND CHRONIC RESPIRATORY FAILURE WITH HYPOXIA; J96.22 - ACUTE AND CHRONIC RESPIRATORY FAILURE WITH HYPERCAPNIA (4) DVT prophylaxis Code(s): [id number] - (5) Diabetes Code(s): E11.9 - TYPE 2 DIABETES MELLITUS WITHOUT COMPLICATIONS (6) Morbid (severe) obesity due to excess calories Code(s): E66.01 - MORBID (SEVERE) OBESITY DUE TO EXCESS CALORIES (7) Tracheostomy dependence Code(s): Z93.0 - TRACHEOSTOMY STATUS Assessment/Plan Vent support. abx nebulizer treatment dvt prophylaxis pulmonary/ i/d consults to follow discussed with nursing staff will follow
[2018-03-03] MEDS: FUROSEMIDE 40 MG TABLET (FP) PO SCH (10:28)
[2018-03-03] MEDS: traZODone HCL 50 MG TABLET (FP) PO SCH (10:28)
[2018-03-03] MEDS: ASPIRIN 81 MG CHEWABLE TABLETS PO SCH (10:28)
[2018-03-03] MEDS: DOCUSATE SODIUM 100 MG CAPSULE (FP) PO SCH (10:28)
[2018-03-03] MEDS: ESCITALOPRAM OXALATE 20 MG TABLET (FP) PO SCH (10:29)
[2018-03-03] MEDS: BUDESONIDE/FORMETEROL FUMARATE 160/4.5 mcg INHALER IH SCH ×2 (11:57→21:09)
[2018-03-03] MEDS: ARIPiprazole 5 MG TABLET (FP) PO SCH (11:57)
[2018-03-03] MEDS: ENOXAPARIN NA (PORCINE) 40 MG/0.4 ML DISP.SYRIN SQ SCH (12:01)
--- NOTE | 2018-03-03 12:56 | PN ---
Progress Note (short form) - Note Progress Note: PULMONARY CONSULTATION DICTATED 03/03/18 IMP ACUTE ON CHRONIC HYPOXEMIC/HYPERCAPNEIC RESPIRATORY FAILURE PNEUMONIA END STAGE COPD CHF BIPOLAR MORBID OBESITY SEIZURES DM PLAN IV ABX INHALED BRONCHODILATORS VENT SUPPORT AC MODE,WEAN TOLERATED CULTURES F/U CHEST X-RAYS DVT PROPHYLAXIS DR STEELE Problem List - Problems (1) Bipolar 1 disorder Code(s): F31.9 - BIPOLAR DISORDER, UNSPECIFIED (2) Pneumonia Code(s): J18.9 - PNEUMONIA, UNSPECIFIED ORGANISM Qualifiers: Pneumonia type: due to unspecified organism Laterality: unspecified laterality Lung location: unspecified part of lung Qualified Code(s): J18.9 - Pneumonia, unspecified organism (3) Acute on chronic respiratory failure with hypoxia and hypercapnia Code(s): J96.21 - ACUTE AND CHRONIC RESPIRATORY FAILURE WITH HYPOXIA; J96.22 - ACUTE AND CHRONIC RESPIRATORY FAILURE WITH HYPERCAPNIA (4) COPD exacerbation Code(s): J44.1 - CHRONIC OBSTRUCTIVE PULMONARY DISEASE W (ACUTE) EXACERBATION (5) DVT prophylaxis Code(s): [id number] - (6) Diabetes Code(s): E11.9 - TYPE 2 DIABETES MELLITUS WITHOUT COMPLICATIONS (7) Morbid (severe) obesity due to excess calories Code(s): E66.01 - MORBID (SEVERE) OBESITY DUE TO EXCESS CALORIES (8) Tracheostomy dependence Code(s): Z93.0 - TRACHEOSTOMY STATUS
--- NOTE | 2018-03-03 14:08 | CONS ---
DATE OF CONSULTATION: 03/03/2018 PULMONARY CONSULTATION REFERRING PHYSICIAN: Josie Rojo M.D. HISTORY OF PRESENT ILLNESS: The patient is a 52-year-old white female known to me from previous hospitalization, with past medical history of chronic hypoxemic hypercapnic respiratory failure, maintained on ventilatory support at night, as well as trach collar during the day; seizure disorder; bipolar disorder; congestive heart failure; recently hospitalized at [facility] secondary to pneumonia; a resident of [facility]. She was transferred to [facility] on March 02 with complaint of a 3 to 4 day history of increasing shortness of breath and chest congestion. The patient states that on the Thursday prior to this admission, she started developing increasing chest congestion and shortness of breath. At the time she was placed back on ventilatory support. She was also noted at that time to have a fever of 101, according to the patient. Over the next couple of days, the patient had persistent shortness of breath, congestion and cough productive of [id number]-[id number] tinged secretions. She was continued on ventilatory support and not placed on a trach collar during the days. Her symptoms worsened, at which time she presented to the emergency room yesterday. She also complained of chills and sore throat. The patient was admitted. She was felt to have possible pneumonia. She was placed on broad-spectrum antibiotics. PAST MEDICAL HISTORY: Includes chronic hypoxemic hypercapnic respiratory failure, congestive heart failure, history of pneumonia, bipolar disorder, diabetes, morbid obesity. CURRENT MEDICATIONS: Include Tylenol, Symbicort, Lovenox, Lexapro, Remeron, Desyrel, Abilify, Atarax, Xanax, DuoNeb, Colace, Senna, Lipitor, NovoLog, Lasix, aspirin and Synthroid. SOCIAL HISTORY: History of tobacco use, quit a few years. No occupational exposures. She currently resides at [facility]. REVIEW OF SYSTEMS: Positive shortness of breath, positive chest congestion, positive fever, positive chills, positive sore throat. No abdominal, no chest pain, no palpitations. PHYSICAL EXAMINATION: General: The patient is an obese female, well-developed, awake, alert, in no acute distress, on ventilatory support, AC mode Vital Signs: She is afebrile. Heart rate is 66, blood pressure 126/60, respiratory rate 20. HEENT: Normocephalic, atraumatic. Neck: Supple. Heart: Regular S1, S2. Chest: Bilateral rhonchi. Abdomen: Soft. Bowel sounds are positive. Extremities: No cyanosis or edema. LABORATORY DATA: WBC 6.1, hemoglobin 10.0, hematocrit 31.1; platelet count 231,000. INR 1.01. Blood gas not performed. BUN 21, creatinine 0.5. RADIOLOGY: Chest x-ray revealed a possible infiltrate at the right side. IMPRESSION: 1. Iqnzm-eb-waxxgoa hypoxemic hypercapnic respiratory failure secondary to chronic obstructive pulmonary disease. 2. Possible right lower lobe pneumonia. 3. Bipolar. 4. Seizures. 5. Depression. 6. Morbid obesity. PLAN: Continue ventilatory support; we will start weaning as tolerated. Antibiotic therapy. Continue Lasix. Obtain cultures. Tracheal suctioning. DVT prophylaxis. Obtain followup chest x-rays. Inhaled bronchodilators. Cinthia [id number]
--- NOTE | 2018-03-03 18:26 | PN ---
Progress Note (short form) - Note Progress Note: ID consult dictated sent from [place] with 2 days of cough no fevers normal WBC she is alert note that trach site is painful cxray?atelectasis RLL received vanco/zosyn in ed doubt clinical pneumonia-?viral syndrome chronic resp failure colonization with MDRO-contact isolation morbid obesity d/w Dr Antunez would observe off antiibotics please call back if needed Problem List - Problems (1) Pneumonia Code(s): J18.9 - PNEUMONIA, UNSPECIFIED ORGANISM Qualifiers: Pneumonia type: due to unspecified organism Laterality: unspecified laterality Lung location: unspecified part of lung Qualified Code(s): J18.9 - Pneumonia, unspecified organism (2) Respiratory failure Code(s): J96.90 - RESPIRATORY FAILURE, UNSP, UNSP W HYPOXIA OR HYPERCAPNIA Qualifiers: Chronicity: acute on chronic (3) Morbid obesity Code(s): E66.01 - MORBID (SEVERE) OBESITY DUE TO EXCESS CALORIES (4) MDRO (multiple drug resistant organisms) resistance Code(s): Z16.35 - RESISTANCE TO MULTIPLE ANTIMICROBIAL DRUGS
--- NOTE | 2018-03-03 19:44 | CONS ---
DATE OF CONSULTATION: DATE OF DICTATION: 03/03/2018 INFECTIOUS DISEASE CONSULTATION REQUESTING PHYSICIAN: Dr. Rojo HISTORY OF PRESENT ILLNESS: This is a 52-year-old female with a past medical history of chronic respiratory failure secondary to chronic hypercapnia and morbid obesity. She has a history of COPD, anemia, bipolar disorder. She was sent to the emergency room with the 2-day history of cough. She has no fevers or chills. No nausea or vomiting. She otherwise feels well. She was seen in the ER. She had a chest x-ray done. She is again quite a large person, and there is a question of whether she had a right lower lobe infiltrate versus atelectasis, so she was given vancomycin and Zosyn and admitted for further evaluation. She denies increase in her sputum production. She denies hemoptysis. She notes her trach site, which is chronically uncomfortable. PAST MEDICAL HISTORY: Notable for chronic hypercapnic, hypoxemic respiratory failure with vent support at night, tracheostomy, seizure disorder, congestive heart failure, bipolar disorder, history of pneumonia in the past. She has as well a history of morbid obesity. SOCIAL HISTORY: She stopped smoking a few years ago, no occupational exposures. MEDICATION: [facility] include trazodone, Atarax, senna, polyethylene glycol, mirtazapine, levothyroxine, insulin, furosemide, Symbicort, aspirin, , alprazolam, albuterol, nebulizers DuoNeb, and Symbicort. SOCIAL HISTORY: [facility] resides at the [facility]. REVIEW OF SYSTEMS: She denies chest pain or abdominal pain. She notes chronic trach discomfort. PHYSICAL EXAMINATION: VITAL SIGNS: Temperature 98.1. She has had no fever. Pulse is 63. Blood pressure 116/70, respiratory rate 20. She weighs also 156 kg. HEENT: Normocephalic. Eyes are anicteric. NECK: She has a trach in place. LUNGS: Diminished breath sounds at the bases. HEART: Regular rate and rhythm. ABDOMEN: Soft, nontender. EXTREMITIES: Without edema. LABORATORY: White count is 6.1, on admission it was 8.9, hemoglobin is 10, platelets are 231. BUN and creatinine are 21 and 0.5. Urinalysis is negative. Blood cultures are pending. Sputum culture is growing multiple organisms. Chest x-ray reveals a weak inspiration with congestive changes, cannot rule out a rare case of infiltrate versus atelectasis. IMPRESSION: In summary, this is a morbidly obese 52-year-old woman with chronic hypercapnic, hypoxemic respiratory failure, tracheostomy, [facility] with 2 days of cough, no fevers, normal white count. She is alert. She denies any excess sputum production. Chest x-ray without a clear pneumonia. She has cardiomegaly and it is a very difficult film given her size. I do not clinically suspect she has pneumonia . Her cough is more consistent with a viral syndrome. She received vancomycin and Zosyn in the ER which I would not continue at this time. She has a history of chronic respiratory failure as well as colonization of multidrug resistant organisms. Would maintain contact isolation at this time . Case is discussed with the rotating equipment engineer. Would observe off antibiotics . Please call back if needed. CRISTOPHER GIMENEZ M.D. [id number]
[2018-03-03] MEDS: ATORVASTATIN CA 20 MG TABLET (FP) PO SCH (21:07)
[2018-03-03] MEDS: SENNOSIDES 8.6MG TABLET (FP) PO SCH (21:07)
[2018-03-03] MEDS: ACETAMINOPHEN 325 MG TABLET (FP) PO PRN (21:07)
[2018-03-03] MEDS: ALPRAZolam 0.25 MG TABLET PO PRN (21:08)
[2018-03-03] MEDS: guaiFENesin/D-M SUGAR-FREE/ACLHOL-FREE 118 ML BOTTLE PO PRN (21:15)
[2018-03-03] MEDS: MIRTAZAPINE 15 MG TABLET (FP) PO SCH (21:51)
[2018-03-04] MEDS: ALBUTEROL SO4 2.5/IPRATROPIUM 0.5 INH SOL 3 ML VIAL.NEB. NEB SCH ×6 (00:45→20:25)
[2018-03-04] MEDS: hydrOXYzine HCL 10 MG TABLET PO SCH ×3 (06:09→21:10)
[2018-03-04] MEDS: LEVOTHYROXINE NA 25 MCG TABLET (FP) PO SCH (06:09)
[2018-03-04] MEDS: ALPRAZolam 0.25 MG TABLET PO PRN ×2 (06:09→21:10)
[2018-03-04] MEDS: ACETAMINOPHEN 325 MG TABLET (FP) PO PRN ×2 (06:09→21:10)
[2018-03-04] MEDS: guaiFENesin/D-M SUGAR-FREE/ACLHOL-FREE 118 ML BOTTLE PO PRN ×3 (06:10→21:09)
[2018-03-04] MEDS: INSULIN SLIDING SCALE (NOVOLOG) 1 VIAL SQ SCH ×3 (06:26→16:44)
[2018-03-04] MEDS ORDERED: PT OWN MED DRAWER 7, Y5N ONE ×2 (09:36→20:56)
[2018-03-04] MEDS: ASPIRIN 81 MG CHEWABLE TABLETS PO SCH (09:37)
[2018-03-04] MEDS: FUROSEMIDE 40 MG TABLET (FP) PO SCH (09:37)
[2018-03-04] MEDS: ENOXAPARIN NA (PORCINE) 40 MG/0.4 ML DISP.SYRIN SQ SCH (09:38)
[2018-03-04] MEDS: ESCITALOPRAM OXALATE 20 MG TABLET (FP) PO SCH (09:38)
[2018-03-04] MEDS: traZODone HCL 50 MG TABLET (FP) PO SCH (09:38)
[2018-03-04] MEDS: DOCUSATE SODIUM 100 MG CAPSULE (FP) PO SCH (09:38)
[2018-03-04] MEDS: BUDESONIDE/FORMETEROL FUMARATE 160/4.5 mcg INHALER IH SCH ×2 (09:39→21:11)
[2018-03-04] MEDS: ARIPiprazole 5 MG TABLET (FP) PO SCH (09:39)
--- NOTE | 2018-03-04 10:53 | PN ---
Progress Note (short form) - Note Progress Note: Pt seen/ examined. Awake. On vent all f/u noted/ appreciated off abx afebrile c/c-- trach site hurts a lot Vital Signs Temp 97.5 F L 03/04/18 06:00 Pulse 55 L 03/04/18 08:27 Resp 22 03/04/18 08:27 BP 125/73 03/04/18 06:00 Pulse Ox 96 03/04/18 08:27 Intake & Output 03/03/18 03/03/18 03/04/18 11:59 23:59 11:59 Intake Total 315 730 500 Balance 315 730 500 Weight 345 lb Intake: Oral 315 730 500 Other: Voiding Method Diaper Incontinent # Unmeasured Voids Void 3 2 Bowel Movement Yes # Bowel Movements 2 Height 4 ft 10 in Body Mass Index (BMI) 72.1 Weight Measurement Method Patient Lift Scale Active Medications Acetaminophen (Tylenol -) 650 mg PO Q8H PRN PRN Reason: FEVER Last Admin: 03/04/18 06:09 Dose: 650 mg Albuterol/Ipratropium (Duoneb -) 1 amp NEB Q4H [facility] Last Admin: 03/04/18 07:30 Dose: 1 amp Alprazolam (Xanax -) 0.25 mg PO Q8H PRN PRN Reason: ANXIETY Last Admin: 03/04/18 06:09 Dose: 0.25 mg Aripiprazole (Abilify) 5 mg PO DAILY [facility] Last Admin: 03/04/18 09:39 Dose: 5 mg Aspirin (Asa -) 81 mg PO DAILY [facility] Last Admin: 03/04/18 09:37 Dose: 81 mg Atorvastatin Calcium (Lipitor -) 20 mg PO HS [facility] Last Admin: 03/03/18 21:07 Dose: 20 mg Budesonide/Formoterol Fumarate (Symbicort 160/4.5mcg -) 1 puff IH BID [facility] Last Admin: 03/04/18 09:39 Dose: 1 puff Docusate Sodium (Colace -) 100 mg PO DAILY [facility] Last Admin: 03/04/18 09:38 Dose: 100 mg Enoxaparin Sodium (Lovenox -) 40 mg SQ DAILY [facility] Last Admin: 03/04/18 09:38 Dose: 40 mg Escitalopram Oxalate (Lexapro -) 20 mg PO DAILY [facility] Last Admin: 03/04/18 09:38 Dose: 20 mg Furosemide (Lasix -) 40 mg PO DAILY [facility] Last Admin: 03/04/18 09:37 Dose: 40 mg Guaifenesin (Diabetic Tussin Dm -) 10 ml PO Q4H PRN PRN Reason: COUGH Last Admin: 03/04/18 06:10 Dose: 10 ml Hydroxyzine HCl (Atarax -) 10 mg PO TID [facility] Last Admin: 03/04/18 06:09 Dose: 10 mg Insulin Aspart (Novolog Vial Sliding Scale -) 1 vial SQ TIDAC [facility]; Protocol Last Admin: 03/04/18 06:26 Dose: Not Given Levothyroxine Sodium (Synthroid -) 25 mcg PO 0700 [facility] Last Admin: 03/04/18 06:09 Dose: 25 mcg Mirtazapine (Remeron -) 15 mg PO HS [facility] Last Admin: 03/03/18 21:51 Dose: 15 mg Senna (Senna -) 2 tab PO [facility] Last Admin: 03/03/18 21:07 Dose: Not Given Trazodone HCl (Desyrel -) 50 mg PO DAILY [facility] Last Admin: 03/04/18 09:38 Dose: 50 mg CBC, BMP 03/03/18 08:20 03/03/18 08:20 Microbiology 03/02/18 12:34 Gram Stain - Final Sputum - Endotrachea Suction/Ventilator Sputum Culture - Preliminary Non Lactose Fermenting Gnb Non Lactose Fermenting Gnb#2 Staphylococcus Species 03/02/18 11:30 Blood Culture - Preliminary Blood - Peripheral Venous NO GROWTH OBTAINED AFTER 24 HOURS, INCUBATION TO CONTINUE FOR 4 DAYS. 03/02/18 11:30 Blood Culture - Preliminary Blood - Peripheral Venous NO GROWTH OBTAINED AFTER 24 HOURS, INCUBATION TO CONTINUE FOR 4 DAYS. 03/02/18 11:21 Urine Culture - Final Urine - Urine - Catheterized Physical Examination Constitutional: Yes: No Distress, Awake Eyes: Yes: Conjunctiva Clear Neck: Yes: Supple, Other (s/p trach) Respiratory: Yes: Diminished Gastrointestinal: Yes: Soft, Abdomen, Obese Edema: No Neurological: Yes: Alert Psychiatric: Yes: Alert Imaging - Results Chest X-ray: Report Reviewed Assessment/Plan Vent support. Weaning as tolerated off abx nebulizer treatment dvt prophylaxis continue other meds will consult ent to check on trach will follow Problem List - Problems (1) Bipolar 1 disorder Code(s): F31.9 - BIPOLAR DISORDER, UNSPECIFIED (2) Pneumonia Code(s): J18.9 - PNEUMONIA, UNSPECIFIED ORGANISM Qualifiers: Pneumonia type: due to unspecified organism Laterality: unspecified laterality Lung location: unspecified part of lung Qualified Code(s): J18.9 - Pneumonia, unspecified organism (3) Acute on chronic respiratory failure with hypoxia and hypercapnia Code(s): J96.21 - ACUTE AND CHRONIC RESPIRATORY FAILURE WITH HYPOXIA; J96.22 - ACUTE AND CHRONIC RESPIRATORY FAILURE WITH HYPERCAPNIA (4) DVT prophylaxis Code(s): [id number] - (5) Diabetes Code(s): E11.9 - TYPE 2 DIABETES MELLITUS WITHOUT COMPLICATIONS (6) Morbid (severe) obesity due to excess calories Code(s): E66.01 - MORBID (SEVERE) OBESITY DUE TO EXCESS CALORIES (7) Tracheostomy dependence Code(s): Z93.0 - TRACHEOSTOMY STATUS
--- NOTE | 2018-03-04 12:12 | PN ---
Progress Note (short form) - Note Progress Note: PULMONARY Vented, awake. Wants to try trach collar. c/o pain at trach site. Vital Signs Period Temp Pulse Resp BP Sys/Petersen Pulse Ox Last 24 Hr 97.5 F-99.3 F 55-72 20-27 110-125/47-73 96 Gen: vented, awake Heart: RRR Lung: scattered rhonchi Abd: soft, nontender Ext: no edema CBC, BMP 03/03/18 08:20 03/03/18 08:20 Active Medications Acetaminophen (Tylenol -) 650 mg PO Q8H PRN PRN Reason: FEVER Last Admin: 03/04/18 06:09 Dose: 650 mg Albuterol/Ipratropium (Duoneb -) 1 amp NEB Q4H [facility] Last Admin: 03/04/18 11:42 Dose: 1 amp Alprazolam (Xanax -) 0.25 mg PO Q8H PRN PRN Reason: ANXIETY Last Admin: 03/04/18 06:09 Dose: 0.25 mg Aripiprazole (Abilify) 5 mg PO DAILY [facility] Last Admin: 03/04/18 09:39 Dose: 5 mg Aspirin (Asa -) 81 mg PO DAILY [facility] Last Admin: 03/04/18 09:37 Dose: 81 mg Atorvastatin Calcium (Lipitor -) 20 mg PO HS [facility] Last Admin: 03/03/18 21:07 Dose: 20 mg Budesonide/Formoterol Fumarate (Symbicort 160/4.5mcg -) 1 puff IH BID [facility] Last Admin: 03/04/18 09:39 Dose: 1 puff Docusate Sodium (Colace -) 100 mg PO DAILY [facility] Last Admin: 03/04/18 09:38 Dose: 100 mg Enoxaparin Sodium (Lovenox -) 40 mg SQ DAILY [facility] Last Admin: 03/04/18 09:38 Dose: 40 mg Escitalopram Oxalate (Lexapro -) 20 mg PO DAILY [facility] Last Admin: 03/04/18 09:38 Dose: 20 mg Furosemide (Lasix -) 40 mg PO DAILY [facility] Last Admin: 03/04/18 09:37 Dose: 40 mg Guaifenesin (Diabetic Tussin Dm -) 10 ml PO Q4H PRN PRN Reason: COUGH Last Admin: 03/04/18 11:09 Dose: 10 ml Hydroxyzine HCl (Atarax -) 10 mg PO TID [facility] Last Admin: 03/04/18 06:09 Dose: 10 mg Insulin Aspart (Novolog Vial Sliding Scale -) 1 vial SQ TIDAC [facility]; Protocol Last Admin: 03/04/18 11:14 Dose: Not Given Levothyroxine Sodium (Synthroid -) 25 mcg PO 0700 [facility] Last Admin: 03/04/18 06:09 Dose: 25 mcg Mirtazapine (Remeron -) 15 mg PO HS [facility] Last Admin: 03/03/18 21:51 Dose: 15 mg Senna (Senna -) 2 tab PO [facility] Last Admin: 03/03/18 21:07 Dose: Not Given Trazodone HCl (Desyrel -) 50 mg PO DAILY [facility] Last Admin: 03/04/18 09:38 Dose: 50 mg A/P Acute on Chronic Hypoxic and Hypercapneic Respiratory Failure COPD LV Diastolic Dysfunction Morbid Obesity DM - monitoring off antibiotics per ID - placed on CPAP/PS 02/21, if can tolerate then can attempt trach collar - ENT eval - PO as tolerated - DVT prophylaxis
[2018-03-04] MEDS: MIRTAZAPINE 15 MG TABLET (FP) PO SCH (21:10)
[2018-03-04] MEDS: ATORVASTATIN CA 20 MG TABLET (FP) PO SCH (21:10)
[2018-03-04] MEDS: SENNOSIDES 8.6MG TABLET (FP) PO SCH (21:11)
[2018-03-05] MEDS: ALBUTEROL SO4 2.5/IPRATROPIUM 0.5 INH SOL 3 ML VIAL.NEB. NEB SCH ×5 (00:13→16:20)
[2018-03-05] MEDS: guaiFENesin/D-M SUGAR-FREE/ACLHOL-FREE 118 ML BOTTLE PO PRN (06:34)
[2018-03-05] MEDS: hydrOXYzine HCL 10 MG TABLET PO SCH ×2 (06:34→14:53)
[2018-03-05] MEDS: ALPRAZolam 0.25 MG TABLET PO PRN ×2 (06:34→14:53)
[2018-03-05] MEDS: ACETAMINOPHEN 325 MG TABLET (FP) PO PRN (06:35)
[2018-03-05] MEDS: INSULIN SLIDING SCALE (NOVOLOG) 1 VIAL SQ SCH ×3 (07:20→17:38)
[2018-03-05] MEDS: LEVOTHYROXINE NA 25 MCG TABLET (FP) PO SCH (07:20)
--- NOTE | 2018-03-05 08:08 | CON.ENT ---
Consult Consult Specialty:: ENT Referred by:: Dr. Rojo Reason for Consultation:: trach pain - History of Present Illness Chief Complaint: trach pain History of Present Illness: 52 uyo F s/p tracheotomy at [facility]?June 2017, multiple admissions on ventilator, sometimes trach collar complains of pain of tracheotomy site for approximately 2 weeks, usually with neck flexion or extension does have a neutral neck position where there is no trach pain uses [employer] Speaking valve successfully also complains of recent cold and note left ear blockage, no pain, but stuffy and harder to hear. able to pop her ear if supine, but then clogs up again. denies prior ear problems discharge from [facility] and transfer back to [facility] expected today chart review indicates similar complaint December 2017, evaluated by DR. Prabhakar. CT scan of chest at that time indicated trach tube in satisfactory position - History Source History Provided By: Patient, Medical Record Limitations to Obtaining History: No Limitations - Past Medical History Pulmonary: Yes: COPD Gastrointestinal: Yes: Other (colon polyps) Psych: Yes: Bipolar - Alcohol/Substance Use Hx Alcohol Use: No History of Substance Use: reports: Marijuana - Smoking History Smoking history: Former smoker Have you smoked in the past 12 months: No Aproximately how many cigarettes per day: 5 If you are a former smoker, when did you quit?: 2013 - Social History Usual Living Arrangement: [facility] History of Recent Travel: No Home Medications - Allergies Allergies/Adverse Reactions: Allergies Allergy/AdvReac Type Severity Reaction Status Date / Time No Known Allergies Allergy Unverified 01/07/18 13:16 - Home Medications Home Medications: Ambulatory Orders Acetaminophen 650 mg PO DAILY 10/18/17 Albuterol 2.5/Ipratropium 0.5 [Duoneb -] 1 neb NEB Q4H 10/18/17 Albuterol Sulfate [Proair Respiclick] 90 mcg IH TID 10/18/17 Aripiprazole 5 mg PO DAILY 10/18/17 Aspirin 81 mg PO DAILY 10/18/17 Ergocalciferol (Vitamin D2) [Vitamin D2] 50,000 unit PO WEEKLY 10/18/17 Furosemide [Lasix -] 20 mg PO DAILY 10/18/17 Heparin Sod,Porcine/0.9 % NaCl [Heparin 5,000 Unit/1,000 ml-Ns] 5,000 unit SCJ BID 10/18/17 Insulin Lispro [Humalog] 0 unit SQ ASDIR 10/18/17 Lactobacillus Acidophilus [Acidophilus] 1 each PO BID 10/18/17 Levothyroxine [Synthroid -] 25 mcg PO DAILY 10/18/17 Mirtazapine 15 mg PO DAILY 10/18/17 traZODone HCL [Trazodone HCl] 50 mg PO DAILY 10/18/17 Alprazolam [Xanax] 0.25 mg PO Q8H PRN #30 tablet MDD 3 01/18/18 Sennosides [Senna -] 2 tab PO HS tablet 01/18/18 Atorvastatin Ca [Lipitor] 20 mg PO HS 01/24/18 Budesonide/Formeterol Fumarate [SYMBICORT 160/4.5mcg -] 1 inh PO BID 01/24/18 Clotrimazole/Betamet Diprop [Lotrisone -] 1 applic TP BID 01/24/18 Docusate Sodium [Colace] 100 mg PO DAILY 01/24/18 Escitalopram Oxalate [Lexapro -] 20 mg PO DAILY 01/24/18 Magnesium Hydroxide [Milk of Magnesia] 400 mg PO ASDIR PRN 01/24/18 Polyethylene Glycol 3350 [Gavilax] 17 gm PO DAILY 01/24/18 Vit A/Vitamin D3/E/Aloe V/Zinc [Periguard Ointment] 100 gm TP BID 01/24/18 hydrOXYzine HCL [Atarax -] 10 mg PO TID 01/24/18 Alprazolam [Xanax] 0.25 mg PO Q8H PRN #30 tablet MDD 3 02/03/18 Furosemide [Lasix] 40 mg PO DAILY #20 tablet 02/03/18 Physical Exam-ENT Vital Signs: Vital Signs Temperature 98.0 F 03/05/18 06:00 Pulse Rate 67 03/05/18 07:38 Respiratory Rate 24 03/05/18 07:00 Blood Pressure 111/71 03/05/18 06:00 O2 Sat by Pulse Oximetry (%) 97 03/05/18 07:38 Constitutional: Yes: No Distress, Calm Head: Yes: WNL Face: Yes: WNL Eyes: Yes: WNL Nose: Yes: WNL Nasal Passage: Yes: WNL Oral/Pharynx: Yes: WNL, Other (missing teeth, no lesions, oropharyngeal airway WNL) Outer Ear: Yes: WNL Ear Canal: Yes: WNL Tympanic Membrane: Yes: WNL, Other (no erythema or visible fluid) Neck: Yes: Other (#7 Portex tracheotomy tube in place, secure, functioning well , peristomal skin intact, no erosions or breakdown. Tracheobronchoscopy performed via tracheotomy tube: tube patent, no obstruction, trachea with mild mucosal erythema, no exudate, blood or lesion. sheeba sharp, proximal right and left mainstem bronchi WNL. no obstructions) Imaging - Results Chest X-ray: Report Reviewed Cat Scan: Report Reviewed Problem List - Problems (1) Hearing difficulty of left ear Assessment/Plan: left ear congestion and hearing loss reported today no prior problems has a URI exam shows no wax or TM abnormality suspect Eustachian tube dysfunction related to her current URI Recommend: obtain audiogram upon return to patient's [facility] facility Code(s): H91.92 - UNSPECIFIED HEARING LOSS, LEFT EAR (2) Tracheostomy dependence Assessment/Plan: pt has tracheotomy by report placed ~June 2017 at [facility] in place and functioning well recent report of pain with neck flexion or extension pt does have a comfortable neutral neck position no skin problems identified around stoma tracheobronchoscopy performed and is WNL for trachea distal to tube, sheeba, and proximal mainstem bronchi Recommend: continue tracheotomy care advised pt to not extend or flex neck to uncomfortable position Thank you for consultation, Azam Noe MD FACS Code(s): Z93.0 - TRACHEOSTOMY STATUS
--- NOTE | 2018-03-05 10:40 | PN ---
Progress Note (short form) - Note Progress Note: PULMONARY WELL KNOWN BY OUR SERVICE VSS/AFEBRILE COUGH WITH CLEAR SPUTUM TRACH WITH O2 COLLAR/HUMIDIFIED WANTS TO GO HOME ANICTERIC SCATTERED MINIMAL B/L RONCHI S1S2 BS+ OBESE MINIMAL EDEMA LABS/MEDS/IMAGES/NOTES REVIEWED IMP ACUTE ON CHRONIC HYPOXEMIC/HYPERCAPNEIC RESPIRATORY FAILURE PNEUMONIA END STAGE COPD CHF BIPOLAR MORBID OBESITY SEIZURES DM PLAN INHALED BRONCHODILATORS VENT SUPPORT AC MODE,WEAN TOLERATED CULTURES F/U CHEST X-RAYS DVT PROPHYLAXIS ?DISCHARGE PLANNING Marcus ALVA MD
[2018-03-05] MEDS ORDERED: PT OWN MED DRAWER 7, Y5N ONE ×3 (11:16→13:46)
[2018-03-05] MEDS: ASPIRIN 81 MG CHEWABLE TABLETS PO SCH (11:50)
[2018-03-05] MEDS: FUROSEMIDE 40 MG TABLET (FP) PO SCH (11:50)
[2018-03-05] MEDS: ENOXAPARIN NA (PORCINE) 40 MG/0.4 ML DISP.SYRIN SQ SCH (11:50)
[2018-03-05] MEDS: DOCUSATE SODIUM 100 MG CAPSULE (FP) PO SCH (11:50)
[2018-03-05] MEDS: traZODone HCL 50 MG TABLET (FP) PO SCH (11:50)
[2018-03-05] MEDS: ESCITALOPRAM OXALATE 20 MG TABLET (FP) PO SCH (11:52)
[2018-03-05] MEDS: BUDESONIDE/FORMETEROL FUMARATE 160/4.5 mcg INHALER IH SCH (11:52)
--- NOTE | 2018-03-05 11:52 | DS ---
Physical Examination Vital Signs: Vital Signs Temperature 98.0 F 03/05/18 06:00 Pulse Rate 68 03/05/18 08:11 Respiratory Rate 24 03/05/18 07:00 Blood Pressure 111/71 03/05/18 06:00 O2 Sat by Pulse Oximetry (%) 96 03/05/18 08:11 Findings/Remarks: feels well afebrile ent consult - noted / appreciated on trach collar afebrile off abx cxr- reviewed- Atelactasis Constitutional: Yes: No Distress, Calm Eyes: Yes: Conjunctiva Clear Neck: Yes: Supple, Other (s/p trach) Respiratory: Yes: CTA Bilaterally Gastrointestinal: Yes: Soft Edema: No Neurological: Yes: Alert Labs: CBC, BMP 03/03/18 08:20 03/03/18 08:20 Discharge Summary Reason For Visit: PNEUMONIA Current Active Problems Bipolar 1 disorder (Acute) Hearing difficulty of left ear (Acute) MDRO (multiple drug resistant organisms) resistance (Acute) Pneumonia (Acute) Hospital Course: stable d/c back to detention Pt in agreement meds reconcilled discussed with nursing staff pt trach collar at day time and vent at night pulmonary to follow at detention Condition: Stable - Instructions Disposition: INTERMEDIATE FACILITY - Home Medications Comprehensive Discharge Medication List: Ambulatory Orders Acetaminophen 650 mg PO DAILY 10/18/17 Albuterol Sulfate [Proair Respiclick] 90 mcg IH TID 10/18/17 Aripiprazole 5 mg PO DAILY 10/18/17 Aspirin 81 mg PO DAILY 10/18/17 Ergocalciferol (Vitamin D2) [Vitamin D2] 50,000 unit PO WEEKLY 10/18/17 Furosemide [Lasix -] 20 mg PO DAILY 10/18/17 Heparin Sod,Porcine/0.9 % NaCl [Heparin 5,000 Unit/1,000 ml-Ns] 5,000 unit SCJ BID 10/18/17 Insulin Lispro [Humalog] 0 unit SQ ASDIR 10/18/17 Lactobacillus Acidophilus [Acidophilus] 1 each PO BID 10/18/17 Levothyroxine [Synthroid -] 25 mcg PO DAILY 10/18/17 Mirtazapine 15 mg PO DAILY 10/18/17 traZODone HCL [Trazodone HCl] 50 mg PO DAILY 10/18/17 Sennosides [Senna -] 2 tab PO HS tablet 01/18/18 Atorvastatin Ca [Lipitor] 20 mg PO HS 01/24/18 Budesonide/Formeterol Fumarate [SYMBICORT 160/4.5mcg -] 1 inh PO BID 01/24/18 Clotrimazole/Betamet Diprop [Lotrisone -] 1 applic TP BID 01/24/18 Docusate Sodium [Colace] 100 mg PO DAILY 01/24/18 Escitalopram Oxalate [Lexapro -] 20 mg PO DAILY 01/24/18 Magnesium Hydroxide [Milk of Magnesia] 400 mg PO ASDIR PRN 01/24/18 Polyethylene Glycol 3350 [Gavilax] 17 gm PO DAILY 01/24/18 Vit A/Vitamin D3/E/Aloe V/Zinc [Periguard Ointment] 100 gm TP BID 01/24/18 hydrOXYzine HCL [Atarax -] 10 mg PO TID 01/24/18 Alprazolam [Xanax] 0.25 mg PO Q8H PRN #30 tablet MDD 3 02/03/18 Guaifenesin/D-Methorphan Hb [Diabetic Tussin Dm -] 10 ml PO Q4H PRN ml
[2018-03-05] MEDS: ARIPiprazole 5 MG TABLET (FP) PO SCH (11:53)
[2018-03-05 14:45] VITALS: BP 126/67; TEMP 98.1
[2018-03-05 18:33] VITALS: PULSE 71
== END 2018-03-05 19:16 | DRG 208 ==
LOC: JER 10:29 → JERBED 15:24 → J5S 03-03 00:41
PROVIDERS: ADMIT Internal Medicine; ATTEND Internal Medicine
PROC: 5A1945Z Respiratory Ventilation, 24-96 Consecutive Hours (ICD-10-PCS; principal; 2018-03-02)
DX: J96.21 Acute and chronic respiratory failure with hypoxia (principal); J18.9 Pneumonia, unspecified organism; J44.1 Chronic obstructive pulmonary disease with (acute) exacerbation; Z99.11 Dependence on respirator [ventilator] status; Z68.45 Body mass index [BMI] 70 or greater, adult; G40.89 Other seizures; J98.11 Atelectasis; J96.22 Acute and chronic respiratory failure with hypercapnia; E66.01 Morbid (severe) obesity due to excess calories; E11.9 Type 2 diabetes mellitus without complications; Z79.4 Long term (current) use of insulin; I50.9 Heart failure, unspecified; F31.9 Bipolar disorder, unspecified; Z87.891 Personal history of nicotine dependence; Z93.0 Tracheostomy status; D64.9 Anemia, unspecified; Z16.35 Resistance to multiple antimicrobial drugs; H91.8X2 Other specified hearing loss, left ear; F12.10 Cannabis abuse, uncomplicated
CPT/HCPCS: 36415; 71045-TC-FY; 80053; 81003; 82962; 85025; 87040; 87070; 87077; 87086; 87186; 87205; 94002; 94640; 99284-25; J7620

== ENCOUNTER 2018-03-11 05:59 | Inpatient (IN) | payer OTHER ==
[2018-03-11] MEDS ORDERED: EPINEPHrine/PF 1 MG/1 ML (1:1,000) AMPULE ONE (06:11)
[2018-03-11] MEDS ORDERED: DEXAMETHASONE SOD PHOSPHATE 10 MG/1 ML VIAL ONE (06:11)
[2018-03-11 06:24] LABS: BASO % 0.6 % (0-2.0); EOS % 0.5 % (0-4.5); HEMATOCRIT 36.2 % (32.4-45.2); HEMOGLOBIN 10.9 GM/dL (10.7-15.3); LYMPH % 22.2 % (8-40); MCH 27.5 pg (25.7-33.7); MCHC 30.1 g/dl (32.0-36.0); MEAN CELL VOLUME 91.4 fl (80-96); MEAN PLT VOLUME 8.5 fl (7.5-11.1); MONO % 3.9 % (3.8-10.2); NEUT % 72.8 % (42.8-82.8); RBC 3.95 M/mm3 (3.60-5.2); RDW 13.9 % (11.6-15.6)
--- NOTE | 2018-03-11 06:27 | PDOC ---
History of Present Illness - General Stated Complaint: RESPITORY PROBLEM Time Seen by Provider: 03/11/18 06:16 History Source: EMS, [facility] Records Exam Limitations: Clinical Condition - History of Present Illness Initial Comments: 03/11/18 06:30 Patient is a 53F from [facility] with history of CHF, chronic hypercapnia, hypoxic respiratory failure, COPD, seizure disorder, bipolar disorder, and trach dependency here today in respiratory failure. EMS reports that she was having difficulty breathing at [facility] and was suctioned there. She was breathing through her trach during transport, but became non-responsive and apneic at end of ride. Patient was started on CPAP, trach was inflated upon arrival. Past History - Past Medical History Allergies/Adverse Reactions: Allergies Allergy/AdvReac Type Severity Reaction Status Date / Time No Known Allergies Allergy Unverified 03/11/18 06:28 Home Medications: Ambulatory Orders Acetaminophen 650 mg PO DAILY 10/18/17 Albuterol Sulfate [Proair Respiclick] 90 mcg IH TID 10/18/17 Aripiprazole 5 mg PO DAILY 10/18/17 Aspirin 81 mg PO DAILY 10/18/17 Ergocalciferol (Vitamin D2) [Vitamin D2] 50,000 unit PO WEEKLY 10/18/17 Furosemide [Lasix -] 20 mg PO DAILY 10/18/17 Heparin Sod,Porcine/0.9 % NaCl [Heparin 5,000 Unit/1,000 ml-Ns] 5,000 unit SCJ BID 10/18/17 Insulin Lispro [Humalog] 0 unit SQ ASDIR 10/18/17 Lactobacillus Acidophilus [Acidophilus] 1 each PO BID 10/18/17 Levothyroxine [Synthroid -] 25 mcg PO DAILY 10/18/17 Mirtazapine 15 mg PO DAILY 10/18/17 traZODone HCL [Trazodone HCl] 50 mg PO DAILY 10/18/17 Sennosides [Senna -] 2 tab PO HS tablet 01/18/18 Atorvastatin Ca [Lipitor] 20 mg PO HS 01/24/18 Budesonide/Formeterol Fumarate [SYMBICORT 160/4.5mcg -] 1 inh PO BID 01/24/18 Clotrimazole/Betamet Diprop [Lotrisone -] 1 applic TP BID 01/24/18 Docusate Sodium [Colace] 100 mg PO DAILY 01/24/18 Escitalopram Oxalate [Lexapro -] 20 mg PO DAILY 01/24/18 Magnesium Hydroxide [Milk of Magnesia] 400 mg PO ASDIR PRN 01/24/18 Polyethylene Glycol 3350 [Gavilax] 17 gm PO DAILY 01/24/18 Vit A/Vitamin D3/E/Aloe V/Zinc [Periguard Ointment] 100 gm TP BID 01/24/18 hydrOXYzine HCL [Atarax -] 10 mg PO TID 01/24/18 Alprazolam [Xanax] 0.25 mg PO Q8H PRN #30 tablet MDD 3 02/03/18 Guaifenesin/D-Methorphan Hb [Diabetic Tussin Dm -] 10 ml PO Q4H PRN ml Cardiac Disorders: (heart failure- 2013) COPD: Yes CHF: Yes Psychiatric Problems: Yes (bipolar) Seizures: Yes Thyroid Disease: Yes - Immunization History Immunization Up to Date: Yes - Suicide/Smoking/Psychosocial Hx Smoking Status: No Smoking History: Former smoker Have you smoked in the past 12 months: No Number of Cigarettes Smoked Daily: 5 If you are a former smoker, when did you quit?: 2013 'Breaking Loose' booklet given: 05/11/16 Hx Alcohol Use: No Drug/Substance Use Hx: No Substance Use Type: None Hx Substance Use Treatment: No Review of Systems - Review of Systems Able to Perform ROS?: No (2/2 clinical condition) *Physical Exam - Physical Exam Comments: 03/11/18 06:33 GENERAL: Obtunded, cyanotic, obese HEAD: No signs of trauma, normocephalic, atraumatic EYES: PERRLA, EOMI, sclera anicteric, conjunctiva clear NECK: Normal ROM, supple, no lymphadenopathy, JVD, or masses LUNGS: Apneic, no spontaneous respirations HEART: Regular rate and rhythm, normal S1 and S2, no murmurs, rubs or gallops, peripheral pulses normal and equal bilaterally. ABDOMEN: Soft, nontender, normoactive bowel sounds. No guarding, no rebound. No masses EXTREMITIES: Normal inspection, Normal range of motion, no edema. No clubbing or cyanosis. NEUROLOGICAL: Cranial nerves II through XII grossly intact. No focal sensorimotor deficits SKIN: Warm, Dry, normal turgor, no rashes or lesions noted. Procedures - Intubation Time of Intubation: 06:10 Blade used: Placed blindly through trach stoma Tube Size (Fr): 6.0 Tube position confirmed by: CO2 detector, Chest x-ray, Breath sounds Breath Sounds after Intubation: equal Intubation Complications: oral-unsuccessful attempt, O2 saturation decreased Post Intubation Xray: Yes (pending) ED Treatment Course - LABORATORY CBC & Chemistry Diagram: 03/11/18 06:19 03/11/18 06:19 Medical Decision Making - Medical Decision Making 03/11/18 06:34 Patient is a 53F from [facility] with history of CHF, chronic hypercapnia, hypoxic respiratory failure, COPD, seizure disorder, bipolar disorder, and trach dependency here today in respiratory failure. A: Trach not functioning, removed. ET attempted, unable to pass tube from oropharynx. 6.0 tube placed through stoma. Equal breath sounds. ETCO2 initially 100, dropped. SPO2 steadily santos until 90s B: Equal breath sounds bilaterally C: Pulse felt, BPs stable after airway managed. 3 IVs placed. Difficult stick. D: Sedated, moving all extremities E: No wounds noted Patient status greatly improved with intubation. Believe patient most likely had mucous plug. Stabilized, pending workup for respiratory failure. 03/11/18 06:49 Patient now alert and communicating. Nelson, appears well. Complains of pain to her throat. *DC/Admit/Observation/Transfer Diagnosis at time of Disposition: Respiratory failure - Discharge Dispostion Condition at time of disposition: Stable - Referrals - Patient Instructions - Post Discharge Activity
[2018-03-11 06:35] LABS: ARTERIAL BLD GAS O2 SATURATION 98.3 % (90-98.9); CARBOXYHEMOGLOBIN 1.6 gm% (0.5-2.0)
--- NOTE | 2018-03-11 06:36 | PDOC ---
Attending Attestation - HPI HPI: 03/11/18 06:52 The patient is a 53 year old female, with a significant PMH of COPD, asthma, CHF, obesity, seizure disorder, bipolar disorder and hypercapnia who presents to the emergency department via EMS with respiratory distress from [facility]. The patient appear to be tachypnea and suddenly developed agonal breathing. The patient became cyanotic and required intubation through the stoma. Allergies: NKDA Past surgical history: None reported Social history: None reported PCP: None reported Documentation prepared by Arcelia Zamora, acting as medical researcher for Osmel Velasquez MD. - Physicial Exam PE: 03/11/18 06:52 GENERAL: +Morbid obesity, cyanotic HEENT: Normocephalic, atraumatic. Pupil pinpoint bilaterally. No conjunctival pallor. Sclera are non-icteric. Moist mucous membranes. Oropharynx is clear. NECK: Supple. Full ROM. No JVD. Carotid pulses 2+ and symmetric, without bruits. No thyromegaly. No lymphadenopathy. CARDIOVASCULAR: Regular rate and rhythm. No murmurs, rubs, or gallops. Distal pulses are 2+ and symmetric. PULMONARY: +Respiratory distress, trach in place require suctioning copious amount of mucus. ABDOMINAL: +Morbid obesity. Soft. Non-tender. Non-distended. No rebound or guarding. No organomegaly. Normoactive bowel sounds. MUSCULOSKELETAL No bony deformities or tenderness. No CVA tenderness. EXTREMITIES: No cyanosis. No clubbing. No edema. No calf tenderness. SKIN: Warm and dry. Normal capillary refill. No rashes. No jaundice. NEUROLOGICAL: No neuro focal deficit <Arcelia Zamora - Last Filed: 03/11/18 06:55> - Resident Resident Name: Lexx Baires - ED Attending Attestation I have performed the following: I have examined & evaluated the patient, The case was reviewed & discussed with the resident, I agree w/resident's findings & plan, Exceptions are as noted - Medical Decision Making 03/15/18 19:22 Pt was treated and released <Osmel Velasquez - Last Filed: 03/15/18 19:23>
[2018-03-11 06:38] LABS: ALLENS TEST POSITIVE
[2018-03-11] MEDS ORDERED: VANCOMYCIN 1,000 MG in DEXTROSE 5%-WATER - 250 ML IVPB ONE (06:42)
[2018-03-11] MEDS ORDERED: PIPERACILLIN/TAZOB 3.375 GM 3.375 GM in DEXTROSE 5%-WATER - 50 ML IVPB ONE (06:42)
[2018-03-11 06:43] LABS: ALBUMIN 3.2 g/dl (3.4-5.0); ANION GAP 7 MMOL/L (8-16); BILIRUBIN,TOTAL 0.3 mg/dL (0.2-1.0); BLOOD UREA NITROGEN 14 mg/dL (7-18); CALCIUM 8.1 mg/dL (8.5-10.1); CHLORIDE 98 mmol/L (98-107); CO2 36 mmol/L (21-32); CREATININE 0.7 mg/dL (0.55-1.02); GLUCOSE,RANDOM 257 mg/dL (74-106); SGPT/ALT 86 U/L (12-78); SODIUM 141 mmol/L (136-145); TOT PROT 6.9 g/dl (6.4-8.2)
[2018-03-11 06:44] LABS: ALK PHOS 106 U/L (45-117)
[2018-03-11 06:45] LABS: ARTERIAL BLOOD GAS pH 7.19 (7.35-7.45)
[2018-03-11 06:46] LABS: ARTERIAL BLOOD GAS PCO2 93.5 mmHg (35-45)
[2018-03-11 06:47] LABS: POTASSIUM 5.4 mmol/L (3.5-5.1); SGOT/AST 74 U/L (15-37)
[2018-03-11 06:48] LABS: INR 1.04 (0.83-1.09); PROTHROMBIN TIME (PATIENT) 11.8 SEC (9.7-13.0)
[2018-03-11] MEDS: PROPOFOL 1,000,000 MCG/100 ML VIAL IVPB SCH ×3 (07:00→14:37)
[2018-03-11] MEDS ORDERED: PIPERACILLIN/TAZOB 3.375 GM 3.375 GM/50 ML BAG IVPB ONE (07:02)
[2018-03-11 07:07] LABS: WHITE BLOOD COUNT 19.1 K/mm3 (4.0-10.0)
--- NOTE | 2018-03-11 07:24 | PDOC ---
*Physical Exam - Vital Signs Last Vital Signs Temp Pulse Resp BP Pulse Ox 98.6 F 116 H 20 125/58 100 03/11/18 06:00 03/11/18 06:21 03/11/18 06:21 03/11/18 06:00 03/11/18 06:21 ED Treatment Course - LABORATORY CBC & Chemistry Diagram: 03/11/18 06:19 03/11/18 06:19 - ADDITIONAL ORDERS Additional order review: Laboratory Results 03/11/18 03/11/18 03/11/18 06:23 06:20 06:19 PT with INR 11.80 INR 1.04 Anticoagulation Therapy No Result Required. Puncture Site Right radial ABG pH 7.19 L* D ABG pCO2 at Pt Temp 93.5 H* D ABG pO2 at Pt Temp 122.0 H D ABG HCO3 34.4 H ABG O2 Sat (Measured) 98.3 ABG O2 Content 15.1 ABG Base Excess 4.0 H Harris Test Positive Carboxyhemoglobin 1.6 Methemoglobin 2.0 H O2 Delivery Device Ventilator setting Oxygen Flow Rate 100% Vent Mode A/c Vent Rate No Result Required. Mechanical Rate No Result Required. PEEP 5.0 Pressure Support Vent No Result Required. Sodium 141 Potassium 5.4 H Chloride 98 Carbon Dioxide 36 H Anion Gap 7 L BUN 14 Creatinine 0.7 Creat Clearance w eGFR > 60 Random Glucose 257 H Calcium 8.1 L Total Bilirubin 0.3 AST 74 H ALT 86 H Alkaline Phosphatase 106 Total Protein 6.9 Albumin 3.2 L 03/11/18 06:19 RBC 3.95 MCV 91.4 MCHC 30.1 L RDW 13.9 MPV 8.5 D Neutrophils % 72.8 Lymphocytes % 22.2 Monocytes % 3.9 Eosinophils % 0.5 Basophils % 0.6 - Medications Given in the ED: ED Medications Discontinued Medications Generic Name Dose Route Start Last Admin Trade Name Freq PRN Reason Stop Dose Admin Piperacillin Sod/Tazobactam 50 mls @ 100 mls/hr 03/11/18 06:42 03/11/18 07:14 Sod 3.375 gm/ Dextrose IVPB 03/11/18 07:11 100 mls/hr ONCE ONE Administration Protocol Medical Decision Making - Medical Decision Making 53 year old female well known to the hospital, presenting with respiratory failure and trach malfunction. Per sign out from Dr. Baires and Dr. Velasquez, they believed the trach was not functioning appropriately so they placed a 6.0 ETT through the trach and the patient improved. Blood gasses on sign out and repeat blood were concerning for hypercarbic acidosis. ETT was withdrawn 2 cm ( 11 cm at the neck), patient was suctioned, and vent settings were optimized. Tidal volumes remained consistent and appropriate without alarming after these changes. I suspect her respiratory status is improving and should be corroborated by a third blood gas. Signed out to Medicine team and ICU team. 03/11/18 09:11 *DC/Admit/Observation/Transfer Diagnosis at time of Disposition: Respiratory failure - Discharge Dispostion Condition at time of disposition: Stable - Referrals - Patient Instructions - Post Discharge Activity
[2018-03-11 07:39] LABS: URINE APPEARANCE CLOUDY; URINE BILIRUBIN NEGATIVE (<2.0 mg/dL); URINE COLOR DKYELLOW; URINE GLUCOSE (UA) 1+ (NEGATIVE); URINE KETONE NEGATIVE (NEGATIVE); URINE LEUK ESTERASE NEGATIVE (NEGATIVE); URINE NITRITE NEGATIVE (NEGATIVE); URINE UROBILINOGEN NEGATIVE mg/dL (0.2-1.0)
[2018-03-11 07:44] LABS: URINE PROTEIN 3+ (NEGATIVE)
[2018-03-11 07:48] LABS: GRANULAR CASTS 16 /lpf; URINE BACTERIA MODERATE /hpf (NONE SEEN); URINE HYALINE CAST 8 /lpf; URINE MUCUS FEW
[2018-03-11] MEDS ORDERED: VANCOMYCIN 1 GRAM (PRE-DOCKED) 1,000 MG/250 ML BAG IVPB ONE (08:30)
[2018-03-11] MEDS ORDERED: LORazepam 2 MG/ML SDV VIAL ONE (08:36)
[2018-03-11 08:44] LABS: ARTERIAL BLD GAS O2 SATURATION 97.7 % (90-98.9); ARTERIAL BLOOD GAS BASE EXCESS 6.6 meq/l (-2-2)
[2018-03-11 08:52] LABS: ALLENS TEST POSITIVE
[2018-03-11 08:54] LABS: CARBOXYHEMOGLOBIN 0.7 gm% (0.5-2.0)
[2018-03-11 09:23] LABS: ANISOCYTOSIS 3+; MACROCYTOSIS 0; PLATELET ESTIMATE NORMAL; TEAR DROP CELLS 0
[2018-03-11 10:58] LABS: PLATELET COUNT 153 K/MM3 (134-434)
[2018-03-11] MEDS ORDERED: SODIUM POLYSTYRENE SULFONATE 15 GM/60 ML BOTTLE PO ONE (11:15)
--- NOTE | 2018-03-11 11:33 | PN ---
Teaching Attending Note Name of Resident: Jennifer Pack ATTENDING PHYSICIAN STATEMENT I saw and evaluated the patient. I reviewed the resident's note and discussed the case with the resident. I agree with the resident's findings and plan as documented. SUBJECTIVE: Pt seen and examined in the ICU. Briefly, 53yo female with h/o chronic hypoxic and hypercapneic respiratory failure s/p tracheostomy, COPD, LV diastolic dysfunction, seizure disorder, bipolar disorder who was admitted with respiratory distress. Trach not functioning in the ER, removed and 6.0 ETT placed into stoma after failed orotracheal intubation due to possible obstruction. Currently awake, alert on volume assist control. Reports a cough and chest congestion. No fevers or chills. OBJECTIVE: Vital Signs Period Temp Pulse Resp BP Sys/Petersen Pulse Ox Last 24 Hr 98.6 F-100.3 F 62-116 8-25 125-162/58-80 78-100 Intake & Output 03/08/18 03/09/18 03/10/18 03/11/18 23:59 23:59 23:59 23:59 Weight 131.287 kg Gen: vented, awake Heart: RRR Lung: bilateral rhonchi, wheezes Abd: soft, nontender Ext: trace distal edema CBC, BMP 03/11/18 06:19 03/11/18 06:19 Active Medications Albuterol/Ipratropium (Duoneb -) 1 amp NEB RQID NOELLE Propofol (Diprivan -) 1,000,000 mcg in 100 mls @ 9.525 mls/hr IVPB TITR NOELLE; Protocol Last Admin: 03/11/18 07:00 Dose: Not Given Methylprednisolone Sodium Succinate (Solu-Medrol -) 60 mg IVPUSH Q4H-IV NOELLE ASSESSMENT AND PLAN: Acute on Chronic Hypoxic and Hypercapneic Respiratory Failure Acute COPD Exacerbation r/o Pneumonia LV Diastolic Dysfunction Seizure Disorder Bipolar Disorder - ENT eval for trach replacement - start IV medrol - inhaled bronchodilators standing and PRN - adjusted vent settings as peak pressures in 50s - empiric antibiotics - send cultures including sputum - continue on volume assist control until stable airway established - PO as tolerated - DVT prophylaxis - continue ICU monitoring critical care time spent in reviewing chart, evaluating patient and formulating plan 35 min
--- NOTE | 2018-03-11 11:42 | CONSULT ---
Consultation: REQUESTING PROVIDER: CONSULT REQUEST: We have been asked to medically evaluate this patient for ICU monitoring. HISTORY OF PRESENT ILLNESS: 53 y/o female with PMH of CHF, chronic hypercapnic, hypoxic respiratory failure s/p trach, COPD, bipolar disorder, presented to the ED from [facility] with respiratory distress. Patient had been having trouble breathing at home, was en route to [facility] and had questionable apneic episode? Patient found to have trach malfunction and ET tube was placed through the stoma in the ER. Notable labs in the ED: WBC 19.1 K 5.4 and notable vital signs patient was tachycardic to 116. Patient started on vanc and zosyn. ABG showed PH 7.19 PCO2 93.5 PO2 122. Chest Xray shows congestive and infiltrative changes. Blood, urine and sputum cultures sent. REVIEW OF SYSTEMS: patient complains of chest pain,. congestion and difficulty breathing. PHYSICAL EXAMINATION Vital Signs - 24 hr 03/11/18 03/11/18 03/11/18 06:00 06:10 06:21 Temperature 98.6 F Pulse Rate 116 H 116 H Pulse Rate [ Apical] Respiratory 8 L 20 20 Rate Blood Pressure 125/58 Blood Pressure [Right Thigh] O2 Sat by Pulse 78 L 100 Oximetry (%) 03/11/18 03/11/18 03/11/18 08:00 08:36 08:53 Temperature 98.7 F Pulse Rate Pulse Rate [ 92 H 97 H Apical] Respiratory 21 25 H 22 Rate Blood Pressure Blood Pressure 162/80 155/76 [Right Thigh] O2 Sat by Pulse 100 100 Oximetry (%) 03/11/18 03/11/18 03/11/18 10:00 10:25 10:39 Temperature 100.3 F H Pulse Rate 62 74 Pulse Rate [ Apical] Respiratory 16 16 16 Rate Blood Pressure 137/66 Blood Pressure [Right Thigh] O2 Sat by Pulse 97 Oximetry (%) 03/11/18 03/11/18 11:02 11:30 Temperature 99.4 F Pulse Rate 80 Pulse Rate [ Apical] Respiratory 16 16 Rate Blood Pressure 135/67 Blood Pressure [Right Thigh] O2 Sat by Pulse 97 Oximetry (%) GENERAL: Awake, alert, in slight acute distress, trach . LUNGS:B/L wheezes and rhonchi auscultated . HEART: tachycardic, normal S1 and S2 without murmur, rub or gallop. ABDOMEN: Soft,obese, nontender, not distended, normoactive bowel sounds, no guarding, no rebound, no masses. No hepatomegaly or splenomegaly. MUSCULOSKELETAL: Normal range of motion at all joints. No bony deformities or tenderness. No CVA tenderness. EXTREMITIES: warm, well-perfused, no clubbing/cyanosis; trace LE edema NEUROLOGICAL: awake,alert,oriented. SKIN: Warm, dry, normal turgor, no rashes or lesions noted. Laboratory Results - last 24 hr 03/11/18 03/11/18 03/11/18 06:05 06:19 06:19 WBC 19.1 H RBC 3.95 Hgb 10.9 Hct 36.2 D MCV 91.4 MCH 27.5 MCHC 30.1 L RDW 13.9 Plt Count 153 D MPV 8.5 D Absolute Neuts (auto) 12.8 H Neutrophils % 72.8 Neutrophils % (Manual) 62.3 D Band Neutrophils % 2.0 Lymphocytes % 22.2 Lymphocytes % (Manual) 27.6 D Monocytes % 3.9 Monocytes % (Manual) 4 D Eosinophils % 0.5 Eosinophils % (Manual) 1.0 D Basophils % 0.6 Basophils % (Manual) 0.0 Myelocytes % (Man) 0 Promyelocytes % (Man) 0 Blast Cells % (Manual) 0 Nucleated RBC % 0 Metamyelocytes 1 D Hypochromia 0 Platelet Estimate Normal Polychromasia 0 Poikilocytosis 0 Basophilic Stippling 0 Anisocytosis 3+ Microcytosis 2+ Macrocytosis 0 Tear Drop Cells 0 Stomatocytes 0 PT with INR INR Anticoagulation Therapy Puncture Site ABG pH ABG pCO2 at Pt Temp ABG pO2 at Pt Temp ABG HCO3 ABG O2 Sat (Measured) ABG O2 Content ABG Base Excess Harris Test Carboxyhemoglobin Methemoglobin O2 Delivery Device Oxygen Flow Rate Vent Mode Vent Rate Mechanical Rate PEEP Pressure Support Vent Sodium 141 Potassium 5.4 H Chloride 98 Carbon Dioxide 36 H Anion Gap 7 L BUN 14 Creatinine 0.7 Creat Clearance w eGFR > 60 POC Glucometer 271.02710 Random Glucose 257 H Calcium 8.1 L Total Bilirubin 0.3 AST 74 H ALT 86 H Alkaline Phosphatase 106 Total Protein 6.9 Albumin 3.2 L Urine Color Urine Appearance Urine pH Ur Specific Hammond Urine Protein Urine Glucose (UA) Urine Ketones Urine Blood Urine Nitrite Urine Bilirubin Urine Urobilinogen Ur Leukocyte Esterase Urine WBC (Auto) Urine RBC (Auto) Urine Bacteria Hyaline Casts Granular Casts Urine Mucus 03/11/18 03/11/18 03/11/18 06:20 06:23 07:20 WBC RBC Hgb Hct MCV MCH MCHC RDW Plt Count MPV Absolute Neuts (auto) Neutrophils % Neutrophils % (Manual) Band Neutrophils % Lymphocytes % Lymphocytes % (Manual) Monocytes % Monocytes % (Manual) Eosinophils % Eosinophils % (Manual) Basophils % Basophils % (Manual) Myelocytes % (Man) Promyelocytes % (Man) Blast Cells % (Manual) Nucleated RBC % Metamyelocytes Hypochromia Platelet Estimate Polychromasia Poikilocytosis Basophilic Stippling Anisocytosis Microcytosis Macrocytosis Tear Drop Cells Stomatocytes PT with INR 11.80 INR 1.04 Anticoagulation Therapy No Result Required. Puncture Site Right radial ABG pH 7.19 L* D ABG pCO2 at Pt Temp 93.5 H* D ABG pO2 at Pt Temp 122.0 H D ABG HCO3 34.4 H ABG O2 Sat (Measured) 98.3 ABG O2 Content 15.1 ABG Base Excess 4.0 H Hraris Test Positive Carboxyhemoglobin 1.6 Methemoglobin 2.0 H O2 Delivery Device Ventilator setting Oxygen Flow Rate 100% Vent Mode A/c Vent Rate No Result Required. Mechanical Rate No Result Required. PEEP 5.0 Pressure Support Vent No Result Required. Sodium Potassium Chloride Carbon Dioxide Anion Gap BUN Creatinine Creat Clearance w eGFR POC Glucometer Random Glucose Calcium Total Bilirubin AST ALT Alkaline Phosphatase Total Protein Albumin Urine Color Dkyellow Urine Appearance Cloudy Urine pH 5.0 Ur Specific Hammond 1.018 Urine Protein 3+ H Urine Glucose (UA) 1+ H Urine Ketones Negative Urine Blood Negative Urine Nitrite Negative Urine Bilirubin Negative Urine Urobilinogen Negative Ur Leukocyte Esterase Negative Urine WBC (Auto) 108 Urine RBC (Auto) 5 Urine Bacteria Moderate Hyaline Casts 8 Granular Casts 16 Urine Mucus Few 03/11/18 03/11/18 08:31 08:31 WBC RBC Hgb Hct MCV MCH MCHC RDW Plt Count MPV Absolute Neuts (auto) Neutrophils % Neutrophils % (Manual) Band Neutrophils % Lymphocytes % Lymphocytes % (Manual) Monocytes % Monocytes % (Manual) Eosinophils % Eosinophils % (Manual) Basophils % Basophils % (Manual) Myelocytes % (Man) Promyelocytes % (Man) Blast Cells % (Manual) Nucleated RBC % Metamyelocytes Hypochromia Platelet Estimate Polychromasia Poikilocytosis Basophilic Stippling Anisocytosis Microcytosis Macrocytosis Tear Drop Cells Stomatocytes PT with INR INR Anticoagulation Therapy Puncture Site Left radial ABG pH 7.20 L* ABG pCO2 at Pt Temp 108.0 H* ABG pO2 at Pt Temp 230.0 H* ABG HCO3 38.5 H ABG O2 Sat (Measured) 97.7 ABG O2 Content 16.6 ABG Base Excess 6.6 H Harris Test Positive Carboxyhemoglobin 0.7 Methemoglobin 1.5 O2 Delivery Device 100 Oxygen Flow Rate Yes Vent Mode A/c Vent Rate Mechanical Rate PEEP 5.0 Pressure Support Vent 450 Sodium Potassium Chloride Carbon Dioxide Anion Gap BUN Creatinine Creat Clearance w eGFR POC Glucometer Random Glucose Calcium Total Bilirubin AST ALT Alkaline Phosphatase Total Protein Albumin Urine Color Urine Appearance Urine pH Ur Specific Hammond Urine Protein Urine Glucose (UA) Urine Ketones Urine Blood Urine Nitrite Urine Bilirubin Urine Urobilinogen Ur Leukocyte Esterase Urine WBC (Auto) Urine RBC (Auto) Urine Bacteria Hyaline Casts Granular Casts Urine Mucus Active Medications Generic Name Dose Route Start Last Admin Trade Name Freq PRN Reason Stop Dose Admin Albuterol/Ipratropium 1 amp 03/11/18 12:00 Duoneb - NEB RQID [facility] Propofol 1,000,000 mcg in 100 mls @ 9.525 mls/hr 03/11/18 06:30 03/11/18 07: 00 Diprivan - IVPB Not Given TITR [facility] Protocol 10 MCG/KG/MIN Methylprednisolone Sodium Succinate 60 mg 03/11/18 11:45 Solu-Medrol - IVPUSH Q6H-IV [facility] ASSESSMENT/PLAN: 53 y/o female with PMH of CHF, chronic hypercapnia/hypoxic respiratory failure trach dependent, COPD, bipolar disorder, presented from [facility] with respiratory distress, found to have trach malfunction which required et tube placement through stoma. Patient also found to have congestive and infiltrative changes on CXR. Acute Hypoxic-Hypercapnic Respiratory Failure vent settings: TV 350 Rate 16 FIO2 50% PEEP 5 -ENT consutled for trach change -f/u repeat ABG this afternoon -IV medrol 60 q6 -duonebs standing -repeat CXR in am -monitor o2 saturations -c/w abx ID: -ID consulted -empiric abx -f/u blood,urine,sputum cx -monitor hemodynamics/vital signs DVT prophylaxis: heparin sq F/E/N: not on standing fluids replete electrolytes as needed PO as tolerated dispo: continue ICU monitoring Dispo: We will continue to follow the patient. Thank you for this consultative opportunity. Problem List - Problems (1) Acute on chronic respiratory failure with hypoxia and hypercapnia Code(s): J96.21 - ACUTE AND CHRONIC RESPIRATORY FAILURE WITH HYPOXIA; J96.22 - ACUTE AND CHRONIC RESPIRATORY FAILURE WITH HYPERCAPNIA (2) Atypical chest pain Code(s): R07.89 - OTHER CHEST PAIN (3) Bipolar 1 disorder Code(s): F31.9 - BIPOLAR DISORDER, UNSPECIFIED (4) CHF (congestive heart failure) Code(s): I50.9 - HEART FAILURE, UNSPECIFIED (5) COPD exacerbation Code(s): J44.1 - CHRONIC OBSTRUCTIVE PULMONARY DISEASE W (ACUTE) EXACERBATION Visit type - Emergency Visit Emergency Visit: Yes ED Registration Date: 03/11/18 Care time: The patient presented to the Emergency Department on the above date and was hospitalized for further evaluation of their emergent condition. - New Patient This patient is new to me today: Yes Date on this admission: 03/11/18 - Critical Care Critical Care patient: Yes Total Critical Care Time (in minutes): 35 Critical Care Statement: The care of this patient involved high complexity decision making to prevent further life threatening deterioration of the patient 's condition and/or to evaluate & treat vital organ system(s) failure or risk of failure.
[2018-03-11] MEDS ORDERED: SODIUM POLYSTYRENE SULFONATE 15 GM/60 ML BOTTLE ONE (12:10)
[2018-03-11] MEDS: methylPREDNISolone NA SUCC 40 MG/1 ML VIAL IVPUSH SCH ×3 (12:11→20:39)
[2018-03-11] MEDS: ALBUTEROL SO4 2.5/IPRATROPIUM 0.5 INH SOL 3 ML VIAL.NEB. NEB SCH ×3 (12:30→20:23)
[2018-03-11] MEDS ORDERED: PROPOFOL 200 MG/20 ML VIAL IVPUSH ONE (12:50)
[2018-03-11 12:51] LABS: ARTERIAL BLD GAS O2 SATURATION 93.9 % (90-98.9); ARTERIAL BLOOD GAS BASE EXCESS 10.6 meq/l (-2-2); ARTERIAL BLOOD GAS PO2 79.5 mmHg (80-100); ARTERIAL BLOOD GAS pH 7.26 (7.35-7.45)
[2018-03-11 12:55] LABS: ALLENS TEST POSITIVE
[2018-03-11 13:08] LABS: ARTERIAL BLOOD GAS PCO2 91.9 mmHg (35-45)
--- NOTE | 2018-03-11 13:10 | PN ---
Progress Note (short form) - Note Progress Note: ID consult dictated imp/reccd 53 year old morbidly obese female admitted from the [facility] with respilratory distress due to nonfunction trach trach replaced with et tube for now to be seen by ENT noted to have elevated wbc and increased right lung changes on CXRAY history of resistant acinetobacter colonization in the past recent sputum culture with zosyn sensitive GNR no fevers r/o Right lung Pneumonia morbid obesity chronic respiratory failure sensitivities of cultures from 03/02 reviewed- will treat with rocephin 2 g daily ent to see d/w ICU MD Problem List - Problems (1) Pneumonia Code(s): J18.9 - PNEUMONIA, UNSPECIFIED ORGANISM Qualifiers: Pneumonia type: due to unspecified organism Laterality: unspecified laterality Lung location: unspecified part of lung Qualified Code(s): J18.9 - Pneumonia, unspecified organism (2) Respiratory failure Code(s): J96.90 - RESPIRATORY FAILURE, UNSP, UNSP W HYPOXIA OR HYPERCAPNIA (3) Tracheostomy dependence Code(s): Z93.0 - TRACHEOSTOMY STATUS (4) Morbid obesity Code(s): E66.01 - MORBID (SEVERE) OBESITY DUE TO EXCESS CALORIES
[2018-03-11] MEDS ORDERED: CEFTRIAXONE 2 GM-D5W BAG 2 GM/50 ML BAG IVPB SCH (13:30)
[2018-03-11] MEDS: HEPARIN NA (PORCINE) 5,000 UNITS/ML 1ML VIAL SQ SCH ×2 (13:46→21:30)
[2018-03-11] MEDS ORDERED: methylPREDNISolone NA SUCC 40 MG/1 ML VIAL IVPUSH SCH (14:00)
[2018-03-11] MEDS ORDERED: ACETAMINOPHEN 1000 MG/100 ML VIAL (NON FORMULARY) IVPB ONE (14:35)
--- NOTE | 2018-03-11 15:25 | EKG ---
Test Reason : Blood Pressure : / mmHG Vent. Rate : 108 BPM Atrial Rate : 108 BPM P-R Int : 154 ms QRS Dur : 112 ms QT Int : 334 ms P-R-T Axes : 051 028 058 degrees QTc Int : 447 ms POOR DATA QUALITY, INTERPRETATION MAY BE ADVERSELY AFFECTED SINUS TACHYCARDIA INCOMPLETE RIGHT BUNDLE BRANCH BLOCK BORDERLINE ECG WHEN COMPARED WITH ECG OF 27-JAN-2018 13:48, VENT. RATE HAS INCREASED BY 42 BPM NONSPECIFIC T WAVE ABNORMALITY NO LONGER EVIDENT IN INFERIOR LEADS Confirmed by Faye Warren ([id number]) on 03/11/2018 3:24:43 PM Referred By: Confirmed By:Faye Warren
[2018-03-11] MEDS: CEFTRIAXONE 2 GM in DEXTROSE 5%-WATER 100 ML IVPB SCH (16:57)
--- NOTE | 2018-03-11 18:05 | CONS ---
DATE OF CONSULTATION: DATE OF DICTATION: 03/11/2018 INFECTIOUS DISEASE CONSULTATION REQUESTING PHYSICIAN: Hospitalist Service CONSULTING PHYSICIAN: Cristopher Gimenez M.D. HISTORY OF PRESENT ILLNESS: This is a 53-year-old woman with a past medical history of hypercapnic, hypoxemic respiratory failure. She is morbidly obese. She has a trach and is maintained on a trach collar during the day and ventilator at night at the intermediate, who comes to the emergency room from the intermediate with respiratory distress. She was noted to have a trach malfunction. They were unable to replace the trach and stoma and an ET tube was placed in that place. She was noted to have a white count of 19,000 although she had no fever. She was also not on steroids. She was started on vancomycin and Zosyn for a questionable right sided infiltrate. I am asked to see her for further recommendations. PAST MEDICAL HISTORY: Notable for a history of morbid obesity. She has a history of CHF, hypercapnic, hypoxemic respiratory failure, tracheostomy, COPD, seizure disorder, bipolar disorder, as well as she has a history of pneumonia in the past. SURGICAL HISTORY: Notable for tracheostomy. SOCIAL HISTORY: She stopped smoking a few years ago. There is no occupational exposure. MEDICATION: Her medications at the intermediate were reviewed. She was not on any steroids at the time of transfer. She resides at the intermediate. REVIEW OF SYSTEMS: She is awake and alert. She denies chest pain or abdominal pain. She appears comfortable. PHYSICAL EXAMINATION: GENERAL: She is on FiO2 of 50%, she is on the vent via the ET tube. VITAL SIGNS: She is afebrile. Temperature of 99.4, T-max was 100.3, blood pressure is 150/66, pulse is 64, respiratory rate 16. She is morbidly obese, she weighs over 131 kg. HEENT: Normocephalic. Eyes are anicteric. LUNGS: Diminished breath sounds at the bases. HEART: Distant heart sounds. ABDOMEN: Soft, not able to appreciate any organomegaly. EXTREMITIES: Trace edema. LABORATORY: Notable for white count of 19,000, hemoglobin of 10.9, platelets of 153. Her BUN and creatinine are normal. AST is 74, ALT is 86. Urinalysis is notable for 108 white cells. Chest x-ray reveals increasing infiltrate on the right lung, and she has cardiomegaly, it is a poorly penetrated film. She received vancomycin and Zosyn in the emergency room. Of note, she has had in the past a history of highly resistant Acinetobacter in her sputum, most recently on March 02 when she was hospitalized less than 10 days ago. Sputum cultures were notable for proteus and serratia. They are both sensitive to ceftriaxone, so would suggest at this time that we treat her with ceftriaxone, would repeat blood cultures and sputum cultures, continue ventilatory support. She is to be seen by ENT for placement of new trach as well. Lastly, morbid obesity, hypercapnic, hypoxemic respiratory failure chronic. CRISTOPHER GIMENEZ M.D. [id number]
[2018-03-12] MEDS: methylPREDNISolone NA SUCC 40 MG/1 ML VIAL IVPUSH SCH ×4 (02:09→21:15)
[2018-03-12 06:08] LABS: HEMOGLOBIN 9.7 GM/dL (10.7-15.3); MCH 27.4 pg (25.7-33.7); MCHC 31.4 g/dl (32.0-36.0); MEAN CELL VOLUME 87.4 fl (80-96); PLATELET COUNT 184 K/MM3 (134-434); RBC 3.54 M/mm3 (3.60-5.2); RDW 13.7 % (11.6-15.6); WHITE BLOOD COUNT 5.9 K/mm3 (4.0-10.0)
[2018-03-12 06:41] LABS: CHLORIDE 99 mmol/L (98-107); POTASSIUM 3.9 mmol/L (3.5-5.1); SODIUM 143 mmol/L (136-145)
[2018-03-12] MEDS: HEPARIN NA (PORCINE) 5,000 UNITS/ML 1ML VIAL SQ SCH ×3 (06:54→21:15)
[2018-03-12 06:55] LABS: ALBUMIN 3.1 g/dl (3.4-5.0); ALK PHOS 97 U/L (45-117); ANION GAP 7 MMOL/L (8-16); BILIRUBIN,TOTAL 0.5 mg/dL (0.2-1.0); BLOOD UREA NITROGEN 17 mg/dL (7-18); CALCIUM 8.8 mg/dL (8.5-10.1); CO2 37 mmol/L (21-32); CREATININE 0.4 mg/dL (0.55-1.02); GLUCOSE,RANDOM 122 mg/dL (74-106); MAGNESIUM 1.7 mg/dL (1.8-2.4); PHOSPHOROUS 3.5 mg/dL (2.5-4.9); SGOT/AST 30 U/L (15-37); SGPT/ALT 67 U/L (12-78); TOT PROT 6.5 g/dl (6.4-8.2)
[2018-03-12] MEDS: ALBUTEROL SO4 2.5/IPRATROPIUM 0.5 INH SOL 3 ML VIAL.NEB. NEB SCH ×4 (07:40→21:50)
[2018-03-12] MEDS ORDERED: DEXTROSE 5%-WATER 100 ML IVPB ONE (08:00)
[2018-03-12] MEDS ORDERED: MAGNESIUM SULF 50% (8.12 MEQ/2 ML-1 GM VIAL) IVPB ONE (08:57)
--- NOTE | 2018-03-12 09:23 | HP ---
Admitting History and Physical - Primary Care Physician PCP: Josie Rojo - Admission History of Present Illness: Pt seen/ examined chart reviewed Pt well known to me In summary-- 53yo female with h/o chronic hypoxic and hypercapneic respiratory failure s/p tracheostomy, COPD,Morbid obesity, , seizure disorder, bipolar disorder who was admitted with respiratory distress. Trach not functioning in the ER, removed and 6.0 ETT placed into stoma after failed orotracheal intubation due to possible obstruction. Pt currently awake comfortable History Source: Patient, Medical Record Limitations to Obtaining History: Clinical Condition - Past Medical History Pulmonary: Yes: COPD Gastrointestinal: Yes: Other (colon polyps) Heme/Onc: Yes: Anemia Psych: Yes: Bipolar - Smoking History Smoking history: Former smoker Have you smoked in the past 12 months: No Aproximately how many cigarettes per day: 5 If you are a former smoker, when did you quit?: 2013 - Alcohol/Substance Use Hx Alcohol Use: No History of Substance Use: reports: Marijuana - Social History History of Recent Travel: No Home Medications - Allergies Allergies/Adverse Reactions: Allergies Allergy/AdvReac Type Severity Reaction Status Date / Time No Known Allergies Allergy Unverified 03/11/18 06:28 - Home Medications Home Medications: Ambulatory Orders Acetaminophen 650 mg PO DAILY 10/18/17 Albuterol Sulfate [Proair Respiclick] 90 mcg IH TID 10/18/17 Aripiprazole 5 mg PO DAILY 10/18/17 Aspirin 81 mg PO DAILY 10/18/17 Ergocalciferol (Vitamin D2) [Vitamin D2] 50,000 unit PO WEEKLY 10/18/17 Furosemide [Lasix -] 20 mg PO DAILY 10/18/17 Heparin Sod,Porcine/0.9 % NaCl [Heparin 5,000 Unit/1,000 ml-Ns] 5,000 unit SCJ BID 10/18/17 Insulin Lispro [Humalog] 0 unit SQ ASDIR 10/18/17 Lactobacillus Acidophilus [Acidophilus] 1 each PO BID 10/18/17 Levothyroxine [Synthroid -] 25 mcg PO DAILY 10/18/17 Mirtazapine 15 mg PO DAILY 10/18/17 traZODone HCL [Trazodone HCl] 50 mg PO DAILY 10/18/17 Sennosides [Senna -] 2 tab PO HS tablet 01/18/18 Atorvastatin Ca [Lipitor] 20 mg PO HS 01/24/18 Budesonide/Formeterol Fumarate [SYMBICORT 160/4.5mcg -] 1 inh PO BID 01/24/18 Clotrimazole/Betamet Diprop [Lotrisone -] 1 applic TP BID 01/24/18 Docusate Sodium [Colace] 100 mg PO DAILY 01/24/18 Escitalopram Oxalate [Lexapro -] 20 mg PO DAILY 01/24/18 Magnesium Hydroxide [Milk of Magnesia] 400 mg PO ASDIR PRN 01/24/18 Polyethylene Glycol 3350 [Gavilax] 17 gm PO DAILY 01/24/18 Vit A/Vitamin D3/E/Aloe V/Zinc [Periguard Ointment] 100 gm TP BID 01/24/18 hydrOXYzine HCL [Atarax -] 10 mg PO TID 01/24/18 Alprazolam [Xanax] 0.25 mg PO Q8H PRN #30 tablet MDD 3 02/03/18 Guaifenesin/D-Methorphan Hb [Diabetic Tussin Dm -] 10 ml PO Q4H PRN ml Review of Systems Unable to obtain ROS, reason: see [place] Physical Examination Vital Signs: Vital Signs Temperature 99.0 F 03/12/18 06:00 Pulse Rate 56 L 03/12/18 08:00 Respiratory Rate 16 03/12/18 08:00 Blood Pressure 120/73 03/12/18 08:00 O2 Sat by Pulse Oximetry (%) 95 03/11/18 21:00 Constitutional: Yes: No Distress, Obese Eyes: Yes: Conjunctiva Clear Neck: Yes: Supple (s/p trach-- vent), Other Cardiovascular: Yes: Regular Rate and Rhythm Respiratory: Yes: Diminished Gastrointestinal: Yes: Soft, Abdomen, Obese Edema: No Neurological: Yes: Alert Psychiatric: Yes: Alert Labs: CBC, BMP 03/12/18 05:30 03/12/18 05:30 Imaging - Results Chest X-ray: Report Reviewed Problem List - Problems (1) Respiratory failure Code(s): J96.90 - RESPIRATORY FAILURE, UNSP, UNSP W HYPOXIA OR HYPERCAPNIA (2) Acute on chronic respiratory failure with hypoxia and hypercapnia Code(s): J96.21 - ACUTE AND CHRONIC RESPIRATORY FAILURE WITH HYPOXIA; J96.22 - ACUTE AND CHRONIC RESPIRATORY FAILURE WITH HYPERCAPNIA (3) Bipolar 1 disorder Code(s): F31.9 - BIPOLAR DISORDER, UNSPECIFIED (4) Hypoxia Code(s): R09.02 - HYPOXEMIA Assessment/Plan Abx Vent management Monitor in icu discussed with icu team meds reviewed continue other meds will follow cc time 30 min
--- NOTE | 2018-03-12 09:29 | PN ---
Progress Note (short form) - Note Progress Note: alert c/o RUQ pain Vital Signs Period Temp Pulse Resp BP Sys/Petersen Pulse Ox Last 24 Hr 98.1 F-99.4 F 47-68 16-23 113-159/61-81 95-98 cor-rrr lungs decreased bs at bases abd soft,nt ext +edema CBC, BMP 03/12/18 05:30 03/12/18 05:30 Microbiology 03/11/18 15:00 Sputum - Endotrachea Suction/Ventilator Gram Stain - Final 03/11/18 07:20 Urine - Urine - Catheterized Urine Culture - Final NO GROWTH OBTAINED 03/11/18 06:45 Blood - Peripheral Venous Blood Culture - Preliminary NO GROWTH OBTAINED AFTER 24 HOURS, INCUBATION TO CONTINUE FOR 4 DAYS. 03/11/18 06:24 Blood - Peripheral Venous Blood Culture - Preliminary NO GROWTH OBTAINED AFTER 24 HOURS, INCUBATION TO CONTINUE FOR 4 DAYS. cxray some improvement a/p r/o Right lung Pneumonia morbid obesity chronic respiratory failure ent to see ?RUQ versus rib pain- for sonogram continue ceftriaxone, wbc normal today, no fevers Problem List - Problems (1) Pneumonia Code(s): J18.9 - PNEUMONIA, UNSPECIFIED ORGANISM Qualifiers: Pneumonia type: due to unspecified organism Laterality: unspecified laterality Lung location: unspecified part of lung Qualified Code(s): J18.9 - Pneumonia, unspecified organism (2) Respiratory failure Code(s): J96.90 - RESPIRATORY FAILURE, UNSP, UNSP W HYPOXIA OR HYPERCAPNIA (3) Tracheostomy dependence Code(s): Z93.0 - TRACHEOSTOMY STATUS (4) Morbid obesity Code(s): E66.01 - MORBID (SEVERE) OBESITY DUE TO EXCESS CALORIES
--- NOTE | 2018-03-12 09:41 | CON.ENT ---
Consult Consult Specialty:: ENT Reason for Consultation:: Trach tube was removed - History of Present Illness Chief Complaint: Respiratory difficulty History of Present Illness: Pt brought in with respiratory blockage, trach tube removed, possibly a mucus plug, had 7 portex changed to 6 ET tube - History Source History Provided By: Medical Record Limitations to Obtaining History: No Limitations - Past Medical History Pulmonary: Yes: COPD Gastrointestinal: Yes: Other (colon polyps) Psych: Yes: Bipolar - Alcohol/Substance Use Hx Alcohol Use: No History of Substance Use: reports: Marijuana - Smoking History Smoking history: Former smoker Have you smoked in the past 12 months: No Aproximately how many cigarettes per day: 5 If you are a former smoker, when did you quit?: 2013 - Social History Usual Living Arrangement: Intermediate History of Recent Travel: No Home Medications - Allergies Allergies/Adverse Reactions: Allergies Allergy/AdvReac Type Severity Reaction Status Date / Time No Known Allergies Allergy Unverified 03/11/18 06:28 - Home Medications Home Medications: Ambulatory Orders Acetaminophen 650 mg PO DAILY 10/18/17 Albuterol Sulfate [Proair Respiclick] 90 mcg IH TID 10/18/17 Aripiprazole 5 mg PO DAILY 10/18/17 Aspirin 81 mg PO DAILY 10/18/17 Ergocalciferol (Vitamin D2) [Vitamin D2] 50,000 unit PO WEEKLY 10/18/17 Furosemide [Lasix -] 20 mg PO DAILY 10/18/17 Heparin Sod,Porcine/0.9 % NaCl [Heparin 5,000 Unit/1,000 ml-Ns] 5,000 unit SCJ BID 10/18/17 Insulin Lispro [Humalog] 0 unit SQ ASDIR 10/18/17 Lactobacillus Acidophilus [Acidophilus] 1 each PO BID 10/18/17 Levothyroxine [Synthroid -] 25 mcg PO DAILY 10/18/17 Mirtazapine 15 mg PO DAILY 10/18/17 traZODone HCL [Trazodone HCl] 50 mg PO DAILY 10/18/17 Sennosides [Senna -] 2 tab PO HS tablet 01/18/18 Atorvastatin Ca [Lipitor] 20 mg PO HS 01/24/18 Budesonide/Formeterol Fumarate [SYMBICORT 160/4.5mcg -] 1 inh PO BID 01/24/18 Clotrimazole/Betamet Diprop [Lotrisone -] 1 applic TP BID 01/24/18 Docusate Sodium [Colace] 100 mg PO DAILY 01/24/18 Escitalopram Oxalate [Lexapro -] 20 mg PO DAILY 01/24/18 Magnesium Hydroxide [Milk of Magnesia] 400 mg PO ASDIR PRN 01/24/18 Polyethylene Glycol 3350 [Gavilax] 17 gm PO DAILY 01/24/18 Vit A/Vitamin D3/E/Aloe V/Zinc [Periguard Ointment] 100 gm TP BID 01/24/18 hydrOXYzine HCL [Atarax -] 10 mg PO TID 01/24/18 Alprazolam [Xanax] 0.25 mg PO Q8H PRN #30 tablet MDD 3 02/03/18 Guaifenesin/D-Methorphan Hb [Diabetic Tussin Dm -] 10 ml PO Q4H PRN ml Physical Exam-ENT Vital Signs: Vital Signs Temperature 99.0 F 03/12/18 06:00 Pulse Rate 56 L 03/12/18 08:00 Respiratory Rate 16 03/12/18 08:00 Blood Pressure 120/73 03/12/18 08:00 O2 Sat by Pulse Oximetry (%) 95 03/11/18 21:00 Constitutional: Yes: Other (Obese) Head: Yes: WNL Face: Yes: Symmetrical Nose: Yes: WNL Outer Ear: Yes: WNL Neck: Yes: Other (obese, ET tube in stoma, no stomal infection) Problem List - Problems (1) Respiratory failure Assessment/Plan: Tube changed and trachea examined. Stoma clear Code(s): J96.90 - RESPIRATORY FAILURE, UNSP, UNSP W HYPOXIA OR HYPERCAPNIA Procedure - Procedure and Findings -: Trach tube #& cuffed portex placed and ET tube removed. Tracheobronchoscopy performed after tube change reveals normal trachea, clear to mainstem, no plugs , infection or bleeding of trachea and bilateral mainstem. Tube tip in trachea
[2018-03-12] MEDS: MUPIROCIN 2% TOPICAL OINTMENT FOR DECOLONIZATION NS SCH ×2 (10:00→21:16)
[2018-03-12] MEDS: CEFTRIAXONE 2 GM in DEXTROSE 5%-WATER 100 ML IVPB SCH (10:13)
--- NOTE | 2018-03-12 12:53 | PN ---
Teaching Attending Note Name of Resident: Jennifer Pack ATTENDING PHYSICIAN STATEMENT I saw and evaluated the patient. I reviewed the resident's note and discussed the case with the resident. I agree with the resident's findings and plan as documented. SUBJECTIVE: Patient seen and examined in the ICU. Awake and alert on AC Mode of vent. Reports RUQ pain that started this AM. Breathing feels a little better. ENT changed ETT to Trach this AM. CXR: some mild improvement in right infiltrate/congestion OBJECTIVE: Intake & Output 03/09/18 03/10/18 03/11/18 03/12/18 23:59 23:59 23:59 23:59 Intake Total 364 44.1 Output Total 1150 350 Balance -786 -305.9 Weight 289 lb 7 oz Last Vital Signs Temp Pulse Resp BP Pulse Ox 98.1 F 56 L 16 135/77 98 03/12/18 10:00 03/12/18 12:00 03/12/18 12:00 03/12/18 12:00 03/12/18 10:00 Active Medications Albuterol/Ipratropium (Duoneb -) 1 amp NEB RQID NOELLE Last Admin: 03/12/18 11:48 Dose: 1 amp Chlorhexidine Gluconate (Hibiclens For Decolonization -) 1 applic TP HS NOELLE Heparin Sodium (Porcine) (Heparin -) 5,000 unit SQ TID NOELLE Last Admin: 03/12/18 06:54 Dose: 5,000 unit Ceftriaxone Sodium 2 gm/ (Dextrose) 100 mls @ 200 mls/hr IVPB DAILY NOELLE; Protocol Last Admin: 03/12/18 10:13 Dose: 200 mls/hr Propofol (Diprivan -) 1,000,000 mcg in 100 mls @ 4.763 mls/hr IVPB TITR NOELLE; Protocol Last Admin: 03/11/18 14:37 Dose: 5 mcg/kg/min, 4.763 mls/hr Methylprednisolone Sodium Succinate (Solu-Medrol -) 60 mg IVPUSH Q6H-IV NOELLE Last Admin: 03/12/18 08:57 Dose: 60 mg Mupirocin (Bactroban Ointment (For Decolonization) -) 1 applic NS BID NOELLE Stop: 03/17/18 09:59 Last Admin: 03/12/18 10:00 Dose: 1 applic Gen: vented, awake Heart: RRR Lung: bilateral rhonchi, wheezes Abd: soft, obese, RUQ pain to palpation Ext: trace distal edema Laboratory Results - last 24 hr 03/11/18 03/12/18 03/12/18 12:42 05:30 05:30 WBC 5.9 RBC 3.54 L Hgb 9.7 L Hct 31.0 L MCV 87.4 MCH 27.4 MCHC 31.4 L RDW 13.7 Plt Count 184 D MPV 8.0 Anticoagulation Therapy No Result Required. Puncture Site Right radial ABG pH 7.26 L ABG pCO2 at Pt Temp 91.9 H* ABG pO2 at Pt Temp 79.5 L D ABG HCO3 40.2 H* ABG O2 Sat (Measured) 93.9 ABG O2 Content 14.0 L ABG Base Excess 10.6 H Harris Test Positive O2 Delivery Device No Result Required. Oxygen Flow Rate Yes Vent Mode 350 Vent Rate No Result Required. Mechanical Rate No Result Required. PEEP Pressure Support Vent No Result Required. Sodium 143 Potassium 3.9 Chloride 99 Carbon Dioxide 37 H Anion Gap 7 L BUN 17 Creatinine 0.4 L Creat Clearance w eGFR > 60 Random Glucose 122 H Calcium 8.8 Phosphorus 3.5 Magnesium 1.7 L Total Bilirubin 0.5 AST 30 ALT 67 Alkaline Phosphatase 97 Total Protein 6.5 Albumin 3.1 L ASSESSMENT AND PLAN: Acute on Chronic Hypoxic and Hypercapneic Respiratory Failure Acute COPD Exacerbation r/o Pneumonia LV Diastolic Dysfunction Seizure Disorder Bipolar Disorder - IV medrol - Inhaled bronchodilators standing and PRN - Need to increase minute ventilation due to hypercapnia - Empiric antibiotics: low threshold to D/C if cultures are negative - PO as tolerated - DVT prophylaxis - US of RUQ - Continue ICU monitoring Dr Lagos Critical care time spent in reviewing chart, evaluating patient and formulating plan 35 min
--- NOTE | 2018-03-12 14:10 | PN ---
Physical Exam: SUBJECTIVE: Patient seen and examined at bedside. no acute events overnight. patients HR went a little bradycardic in the low 50's and patient is complaining of RUQ pain since yesterday. OBJECTIVE: Vital Signs Period Temp Pulse Resp BP Sys/Petersen Pulse Ox Last 24 Hr 98.1 F-100.5 F 47-68 16-22 112-159/62-81 95-98 GENERAL: The patient is awake, not fully alert on propofol . LUNGS: B/L wheezing and rhonchi auscultated HEART: Regular rate and rhythm, S1, S2 without murmur, rub or gallop. ABDOMEN: Soft,RUQ tenderness to palpation +monreal's sign . EXTREMITIES: 2+ pulses, warm, well-perfused, trace edema. NEUROLOGICAL: Cranial nerves II through XII grossly intact. Normal speech, gait not observed. PSYCH: Normal mood, normal affect. SKIN: Warm, dry, normal turgor, no rashes or lesions noted Laboratory Results - last 24 hr 03/12/18 03/12/18 05:30 05:30 WBC 5.9 RBC 3.54 L Hgb 9.7 L Hct 31.0 L MCV 87.4 MCH 27.4 MCHC 31.4 L RDW 13.7 Plt Count 184 D MPV 8.0 Sodium 143 Potassium 3.9 Chloride 99 Carbon Dioxide 37 H Anion Gap 7 L BUN 17 Creatinine 0.4 L Creat Clearance w eGFR > 60 Random Glucose 122 H Calcium 8.8 Phosphorus 3.5 Magnesium 1.7 L Total Bilirubin 0.5 AST 30 ALT 67 Alkaline Phosphatase 97 Total Protein 6.5 Albumin 3.1 L Active Medications Generic Name Dose Route Start Last Admin Trade Name Malia PRN Reason Stop Dose Admin Albuterol/Ipratropium 1 amp 03/11/18 12:00 03/12/18 11:48 Duoneb - NEB 1 amp RQID NOELLE Administration Chlorhexidine Gluconate 1 applic 03/12/18 22:00 Hibiclens For Decolonization - TP HS NOELLE Fentanyl 100 mcg 03/12/18 13:49 Sublimaze Injection - IVPUSH 03/12/18 13:50 ONCE ONE Heparin Sodium (Porcine) 5,000 unit 03/11/18 14:00 03/12/18 06:54 Heparin - SQ 5,000 unit TID NOELLE Administration Ceftriaxone Sodium 2 gm/ 100 mls @ 200 mls/hr 03/11/18 13:45 03/12/18 10:13 Dextrose IVPB 200 mls/hr DAILY NOELLE Administration Protocol Propofol 1,000,000 mcg in 100 mls @ 4.763 mls/hr 03/11/18 14:10 03/11/18 14: 37 Diprivan - IVPB 5 mcg/kg/min TITR NOELLE 4.763 mls/hr Administration Protocol 5 MCG/KG/MIN Methylprednisolone Sodium Succinate 60 mg 03/11/18 11:45 03/12/18 08:57 Solu-Medrol - IVPUSH 60 mg Q6H-IV NOELLE Administration Mupirocin 1 applic 03/12/18 10:00 03/12/18 10:00 Bactroban Ointment (For Decolonization) - NS 03/17/18 09:59 1 applic BID NOELLE Administration ASSESSMENT/PLAN: 53 y/o female with PMH of CHF, chronic hypercapnia/hypoxic respiratory failure trach dependent, COPD, bipolar disorder, presented from retirement with respiratory distress, found to have trach malfunction which required et tube placement through stoma. Patient also found to have congestive and infiltrative changes on CXR. Patients trach was changed this morning. Acute hypoxic hypercapnic respiratory failure: -patients trach was changed this morning by ENT -patient states her breathing is better -repeat CXR shows improved RLL infiltrate -duonebs -IV solumedrol 60 q6H GI: patient having increased RUQ pain and +murphys sign -gallbladder U/S pending -fentanyl PRN for pain ID: -c/w ceftriaxone 2g daily -f/u cultures F/E/N: not on standing fluids replete electrolytes when necessary PO as tolerated dispo: continue ICU monitoring Problem List - Problems (1) Acute on chronic respiratory failure with hypoxia and hypercapnia Code(s): J96.21 - ACUTE AND CHRONIC RESPIRATORY FAILURE WITH HYPOXIA; J96.22 - ACUTE AND CHRONIC RESPIRATORY FAILURE WITH HYPERCAPNIA (2) Atypical chest pain Code(s): R07.89 - OTHER CHEST PAIN (3) Bipolar 1 disorder Code(s): F31.9 - BIPOLAR DISORDER, UNSPECIFIED (4) CHF (congestive heart failure) Code(s): I50.9 - HEART FAILURE, UNSPECIFIED (5) COPD exacerbation Code(s): J44.1 - CHRONIC OBSTRUCTIVE PULMONARY DISEASE W (ACUTE) EXACERBATION Visit type - Emergency Visit Emergency Visit: Yes ED Registration Date: 03/11/18 Care time: The patient presented to the Emergency Department on the above date and was hospitalized for further evaluation of their emergent condition. - New Patient This patient is new to me today: No - Critical Care Critical Care patient: Yes Total Critical Care Time (in minutes): 35 Critical Care Statement: The care of this patient involved high complexity decision making to prevent further life threatening deterioration of the patient 's condition and/or to evaluate & treat vital organ system(s) failure or risk of failure.
[2018-03-12] MEDS: PROPOFOL 1,000,000 MCG/100 ML VIAL IVPB SCH (14:13)
[2018-03-12] MEDS: ALPRAZolam 0.25 MG TABLET PO PRN ×2 (16:34→21:15)
--- NOTE | 2018-03-12 18:24 | CON.GI ---
Consult Consult Specialty:: GI: Dr. Interiano covering for Dr. Royal who resumes coverage 03/15 Referred by:: Hospitalist Service Reason for Consultation:: RUQ pain - History of Present Illness Chief Complaint: RUQ pain History of Present Illness: 53F admitted from [place] for evaluation of respiratory distress. Found to have plugged trach and it was replaced. Asked to evaluate RUQ pain. Patient states that the pain started today. She denies similar episodes in the past. She denies change in bowel habits and no diarrhea was reported. On admission she was noted to have a leukocytosis with WBC of 19k. She was started on ceftriaxone yesterday and flagyl was added today. Previous CT scan of the chest 01/04 revealed significant RLL consolidation, elevated right hemidiaphraghm , partially distended GB with suggestion of tiny stones at the neck. - Past Medical History Pulmonary: Yes: COPD Gastrointestinal: Yes: Other (colon polyps) Psych: Yes: Bipolar Endocrine: Yes: Diabetes Mellitus - Past Surgical History Additional Surgical History: Trach - Alcohol/Substance Use Hx Alcohol Use: No History of Substance Use: reports: Cocaine (former crack cocaine abise), Marijuana - Smoking History Smoking history: Former smoker Have you smoked in the past 12 months: No Aproximately how many cigarettes per day: 5 If you are a former smoker, when did you quit?: 2013 - Social History Usual Living Arrangement: Halfway ADL: Support Services Occupation: disabled Place of : [facility] History of Recent Travel: No Home Medications - Allergies Allergies/Adverse Reactions: Allergies Allergy/AdvReac Type Severity Reaction Status Date / Time No Known Allergies Allergy Unverified 03/11/18 06:28 - Home Medications Home Medications: Ambulatory Orders Acetaminophen 650 mg PO DAILY 10/18/17 Albuterol Sulfate [Proair Respiclick] 90 mcg IH TID 10/18/17 Aripiprazole 5 mg PO DAILY 10/18/17 Aspirin 81 mg PO DAILY 10/18/17 Ergocalciferol (Vitamin D2) [Vitamin D2] 50,000 unit PO WEEKLY 10/18/17 Furosemide [Lasix -] 20 mg PO DAILY 10/18/17 Heparin Sod,Porcine/0.9 % NaCl [Heparin 5,000 Unit/1,000 ml-Ns] 5,000 unit SCJ BID 10/18/17 Insulin Lispro [Humalog] 0 unit SQ ASDIR 10/18/17 Lactobacillus Acidophilus [Acidophilus] 1 each PO BID 10/18/17 Levothyroxine [Synthroid -] 25 mcg PO DAILY 10/18/17 Mirtazapine 15 mg PO DAILY 10/18/17 traZODone HCL [Trazodone HCl] 50 mg PO DAILY 10/18/17 Sennosides [Senna -] 2 tab PO HS tablet 01/18/18 Atorvastatin Ca [Lipitor] 20 mg PO HS 01/24/18 Budesonide/Formeterol Fumarate [SYMBICORT 160/4.5mcg -] 1 inh PO BID 01/24/18 Clotrimazole/Betamet Diprop [Lotrisone -] 1 applic TP BID 01/24/18 Docusate Sodium [Colace] 100 mg PO DAILY 01/24/18 Escitalopram Oxalate [Lexapro -] 20 mg PO DAILY 01/24/18 Magnesium Hydroxide [Milk of Magnesia] 400 mg PO ASDIR PRN 01/24/18 Polyethylene Glycol 3350 [Gavilax] 17 gm PO DAILY 01/24/18 Vit A/Vitamin D3/E/Aloe V/Zinc [Periguard Ointment] 100 gm TP BID 01/24/18 hydrOXYzine HCL [Atarax -] 10 mg PO TID 01/24/18 Alprazolam [Xanax] 0.25 mg PO Q8H PRN #30 tablet MDD 3 02/03/18 Guaifenesin/D-Methorphan Hb [Diabetic Tussin Dm -] 10 ml PO Q4H PRN ml Family Disease History - Family Disease History Family Disease History: Other: Father (: PNA), Mother (: COPD ) Other Family History: No family history of colorectal cancer or other GI malignancy Review of Systems - Review of Systems Constitutional: denies: Chills Cardiovascular: denies: Chest Pain Respiratory: reports: SOB (improved after trach replaced) Gastrointestinal: reports: Abdominal Pain. denies: Diarrhea, Melena, Nausea, Rectal Bleeding, Vomiting Physical Exam-GI Vital Signs: Vital Signs Temperature 99.1 F 03/12/18 14:00 Pulse Rate 51 L 03/12/18 16:00 Respiratory Rate 21 03/12/18 16:19 Blood Pressure 133/61 03/12/18 16:00 O2 Sat by Pulse Oximetry (%) 98 03/12/18 10:00 Constitutional: Yes: Calm Eyes: No: Sclera Icterus Cardiovascular: Yes: Bradycardia (Bradycardic rate, reg rhythm) Respiratory: Yes: Diminished (diminished at bases bilaterally), Other (large pannus) Gastrointestinal Inspection: Yes: Ascites. No: Distention, Scars ...Auscultate: Yes: Normoactive Bowel Sounds ...Palpate: Yes: Soft, Tenderness (Marked TTP in the RUQ with guarding, + monreal 's sign) ...Percussion: No: Tympanitic Edema: Yes Edema: LLE: 2+, RLE: 2+ Neurological: Yes: Alert Labs: CBC, BMP 03/12/18 05:30 03/12/18 05:30 INR, PTT INR 1.04 (0.83-1.09) 03/11/18 06:23 Imaging - Results Ultrasound: Report Reviewed (Fatty liver, thickened GB wall, trace pericholecystic fluid, CBD 8mm) Problem List - Problems (1) Right upper quadrant pain Assessment/Plan: Given US findings, marked leukocytosis on admission and RUQ TTP, biliary pathology such as acalculous cholecystitis (however small stones seen on prior CT scan) would need to be considered. Persistent RLL lung pathology could be contributing as well. The CBD is dilated however LFT's are not suggestive of CBD obstruction. Advise: NPO IV Abx (ID following) Surgical consult CT scan of the chest to reevaluate the prior RLL consolidation as well as Abd/ Pelvis to further assess gallbladder. If RUQ persists and CT scan findings support possible acute cholecystitis, may need cholecystostomy if patient deemed a non-surgical candidate, through which cholangiogram could be performed to further assess CBD. Code(s): R10.11 - RIGHT UPPER QUADRANT PAIN
[2018-03-12] MEDS: CHLORHEXIDINE GLUCONATE 4% CLEANSER FOR DECOLONIZATION TP SCH (23:30)
[2018-03-13] MEDS: traZODone HCL 50 MG TABLET (FP) PO SCH ×2 (01:19→21:22)
[2018-03-13] MEDS: BACITRACIN 15 GM TUBE TOPICAL OINTMENT TP SCH ×2 (01:22→09:29)
[2018-03-13] MEDS: methylPREDNISolone NA SUCC 40 MG/1 ML VIAL IVPUSH SCH ×4 (02:05→21:15)
[2018-03-13] MEDS: HEPARIN NA (PORCINE) 5,000 UNITS/ML 1ML VIAL SQ SCH ×3 (06:25→21:15)
[2018-03-13 06:41] LABS: BASO % 0.1 % (0-2.0); HEMATOCRIT 31.4 % (32.4-45.2); LYMPH % 14.9 % (8-40); MCH 27.2 pg (25.7-33.7); MCHC 31.8 g/dl (32.0-36.0); MEAN CELL VOLUME 85.7 fl (80-96); MEAN PLT VOLUME 8.3 fl (7.5-11.1); MONO % 2.3 % (3.8-10.2); NEUT % 82.7 % (42.8-82.8); PLATELET COUNT 187 K/MM3 (134-434); RBC 3.67 M/mm3 (3.60-5.2); RDW 13.8 % (11.6-15.6); WHITE BLOOD COUNT 4.1 K/mm3 (4.0-10.0)
[2018-03-13 06:54] LABS: ALBUMIN 3.2 g/dl (3.4-5.0); ANION GAP 8 MMOL/L (8-16); BLOOD UREA NITROGEN 21 mg/dL (7-18); CHLORIDE 99 mmol/L (98-107); CO2 36 mmol/L (21-32); GLUCOSE,RANDOM 122 mg/dL (74-106); MAGNESIUM 2.2 mg/dL (1.8-2.4); POTASSIUM 3.8 mmol/L (3.5-5.1); SODIUM 143 mmol/L (136-145)
[2018-03-13 06:58] LABS: ALK PHOS 88 U/L (45-117); BILIRUBIN,TOTAL 0.5 mg/dL (0.2-1.0); CREATININE 0.5 mg/dL (0.55-1.02); PHOSPHOROUS 4.6 mg/dL (2.5-4.9); SGOT/AST 13 U/L (15-37); SGPT/ALT 49 U/L (12-78); TOT PROT 6.5 g/dl (6.4-8.2)
--- NOTE | 2018-03-13 08:15 | PN ---
Progress Note (short form) - Note Progress Note: PULM/CCM Patient seen and examined in the ICU. Doing well w/ new trach. Awake and alert on AC Mode of vent. Requesting Breakfast. Active Medications Albuterol/Ipratropium (Duoneb -) 1 amp NEB RQID NOELLE Last Admin: 03/13/18 08:30 Dose: 1 amp Alprazolam (Xanax -) 0.25 mg PO Q6H PRN PRN Reason: ANXIETY Last Admin: 03/13/18 09:29 Dose: 0.25 mg Bacitracin (Bacitracin -) 1 applic TP DAILY NOELLE Last Admin: 03/13/18 09:29 Dose: 1 applic Chlorhexidine Gluconate (Hibiclens For Decolonization -) 1 applic TP HS NOELLE Last Admin: 03/12/18 23:30 Dose: 1 applic Heparin Sodium (Porcine) (Heparin -) 5,000 unit SQ TID NOELLE Last Admin: 03/13/18 06:25 Dose: 5,000 unit Ceftriaxone Sodium 2 gm/ (Dextrose) 100 mls @ 200 mls/hr IVPB DAILY NOELLE; Protocol Last Admin: 03/13/18 09:25 Dose: 200 mls/hr Metronidazole (Flagyl 500mg Premixed Ivpb -) 500 mg in 100 mls @ 100 mls/hr IVPB Q8H-IV NOELLE Last Admin: 03/13/18 09:25 Dose: 100 mls/hr Methylprednisolone Sodium Succinate (Solu-Medrol -) 60 mg IVPUSH Q6H-IV NOELLE Last Admin: 03/13/18 09:22 Dose: 60 mg Mupirocin (Bactroban Ointment (For Decolonization) -) 1 applic NS BID NOELLE Stop: 03/17/18 09:59 Last Admin: 03/13/18 09:28 Dose: 1 applic Trazodone HCl (Desyrel -) 50 mg PO HS NOELLE Last Admin: 03/13/18 01:19 Dose: 50 mg Vital Signs Period Temp Pulse Resp BP Sys/Petersen Pulse Ox Last 24 Hr 98.4 F-99.1 F 42-58 16-23 97-160/55-90 98-100 Intake & Output 03/10/18 03/11/18 03/12/18 03/13/18 23:59 23:59 23:59 23:59 Intake Total 364 64.1 120 Output Total 1150 1100 550 Balance -786 -1035.9 -430 Weight 131.287 kg GEN: MO middle aged woman in bed, trached, on the vent, CA+OX3 PULM: Diminished @ the bases CV: cor-rr ABD: Obese, +BS, S/S N/T X4Q, no c/o RU Q discomfort EXT: + Pulses, WWPX4, trace edema CBC, BMP 03/13/18 05:30 03/13/18 05:30 Microbiology 03/11/18 06:45 Blood - Peripheral Venous Blood Culture - Preliminary Staphylococcus Species 03/11/18 06:24 Blood - Peripheral Venous Blood Culture - Preliminary NO GROWTH OBTAINED AFTER 48 HOURS, INCUBATION TO CONTINUE FOR 3 DAYS. 03/11/18 15:00 Sputum - Endotrachea Suction/Ventilator Gram Stain - Final 03/11/18 07:20 Urine - Urine - Catheterized Urine Culture - Final NO GROWTH OBTAINED RECENT STUDIES TO NOTE: CHEST CT 03/12: Soft tissue detail is somewhat limited due to artifact associated with body habitus. No evidence of pneumoperitoneum, or bowel obstruction. There is no definite gallbladder overdistention. Mild diffuse wall thickening identified on sonography is difficult to appreciate on this CT study. On CT there is equivocal visualization of a punctate gallbladder calculus. Mild dilatation of common bile duct described on sonography is also difficult to appreciate on this CT exam possibly due to previously described diminished soft tissue detail. There is no definite intrahepatic biliary tract dilatation. Mild hepatomegaly is noted. No obvious mass lesion is identified. The spleen is mildly enlarged measuring 15 cm in length. The spleen previously measured 13 cm in length on a CT study of 11/24/2012. No gross lymphadenopathy is identified. The pancreas, adrenal glands and left kidney demonstrate no obvious noncontrast pathology. A 1.1 cm exophytic focus is seen along the medial cortex of the right kidney possibly representing a cyst allowing for diminished soft tissue detail. Interval enlargement of a large uterine leiomyoma is seen currently measuring 14.4 cm in maximum diameter, previously 10.7 cm. There is resultant partial effacement of the urinary bladder. A Carroll catheter is noted in place. Interval development of a small amount of nonspecific free fluid is seen within the ventrolateral aspect of the right pelvis. Interval development of an umbilical hernia is seen with the subcutaneous hernia sac demonstrating an 8 cm maximum diameter. A very small amount of free fluid is noted within the hernia sac. No obvious CT evidence of acute appendicitis, diverticulitis or colitis. There is no gross small bowel pathology. No aortic aneurysm is seen CTAP 03/12: Evaluation is somewhat limited due to artifact associated with body habitus. Mild diffuse gallbladder wall thickening identified on sonography performed earlier the same date is difficult to appreciate on this CT exam. There is no definite gallbladder overdistention. A possible punctate gallbladder calculus is noted. If there is clinical concern for possible acute cholecystitis additional evaluation utilizing a radionuclide HIDA scan may be considered. Mild common bile duct dilatation described on sonography is also difficult to appreciate on the current exam. Mild splenomegaly is noted which appears mildly increased in comparison to a CT study of 12/04/2012. Mild hepatomegaly is seen without interval change. Interval development of an umbilical hernia is seen containing fat and a small amount of free fluid. No associated bowel herniation is visualized. Interval enlargement of a large uterine leiomyoma is noted currently measuring 14.4 cm, previously 10.7 cm. ABD US 03/12: Limited examination due to the patient's body habitus. Fatty liver versus hepatocellular disease. Please correlate with liver enzymes. Thickened gallbladder wall with a trace of pericholecystic free fluid and without gross evidence of gallstones. Rule out acalculous cholecystitis. Dilated common bile duct measuring 8 mm for which further evaluation is needed. ASSESSMENT AND PLAN: Acute on Chronic Hypoxic and Hypercapneic Respiratory Failure Acute COPD Exacerbation r/o Pneumonia LV Diastolic Dysfunction Seizure Disorder Bipolar Disorder - Inhaled bronchodilators standing and PRN - IV medrol - TC by day Vent by night - D/c Abx - PO as tolerated - DVT prophylaxis - UTO ERCP/MRCP 2/ Vent - D/c --> Floor for continued management DGL, ACNP-BC [facility] ICU PULM/CCM 0207 Critical Care Total Critical Care Time (in minutes): 38 Critical Care Statement: The care of this patient involved high complexity decision making to prevent further life threatening deterioration of the patient 's condition and/or to evaluate & treat vital organ system(s) failure or risk of failure.
[2018-03-13] MEDS: ALBUTEROL SO4 2.5/IPRATROPIUM 0.5 INH SOL 3 ML VIAL.NEB. NEB SCH ×4 (08:30→20:30)
--- NOTE | 2018-03-13 09:05 | PN ---
Progress Note (short form) - Note Progress Note: alert c/o RUQ pain somewhat improved no nausea, eating Vital Signs Period Temp Pulse Resp BP Sys/Petersen Pulse Ox Last 24 Hr 98.1 F-99.1 F 42-68 16-23 97-160/55-90 97-100 cor-rrr lungs decreased bs at bases abd soft,less ruq discomfort ext trace edema CBC, BMP 03/13/18 05:30 03/13/18 05:30 Microbiology 03/11/18 06:24 Blood - Peripheral Venous Blood Culture - Preliminary NO GROWTH OBTAINED AFTER 48 HOURS, INCUBATION TO CONTINUE FOR 3 DAYS. 03/11/18 06:45 Blood - Peripheral Venous Blood Culture - Preliminary Pending Organism 03/11/18 15:00 Sputum - Endotrachea Suction/Ventilator Gram Stain - Final 03/11/18 07:20 Urine - Urine - Catheterized Urine Culture - Final NO GROWTH OBTAINED ct scans noted- lung finding improved, especially right lung compared to prior scan a/p ruq pain ?biliary now on rocephin/flagyl to continue chronic resp failure- ct scan not convincing for acute pneumonia +blood culture- 07/23 bottles- she is afebrile, will f/u ?contaminant afeb with normal wbc, late positive 48 hours out morbid obesity Problem List - Problems (1) Pneumonia Code(s): J18.9 - PNEUMONIA, UNSPECIFIED ORGANISM Qualifiers: Pneumonia type: due to unspecified organism Laterality: unspecified laterality Lung location: unspecified part of lung Qualified Code(s): J18.9 - Pneumonia, unspecified organism (2) Respiratory failure Code(s): J96.90 - RESPIRATORY FAILURE, UNSP, UNSP W HYPOXIA OR HYPERCAPNIA (3) Tracheostomy dependence Code(s): Z93.0 - TRACHEOSTOMY STATUS (4) Morbid obesity Code(s): E66.01 - MORBID (SEVERE) OBESITY DUE TO EXCESS CALORIES
[2018-03-13] MEDS ORDERED: DEXTROSE 5%-WATER 100 ML IVPB ONE (09:15)
[2018-03-13] MEDS: CEFTRIAXONE 2 GM in DEXTROSE 5%-WATER 100 ML IVPB SCH (09:25)
[2018-03-13] MEDS: MUPIROCIN 2% TOPICAL OINTMENT FOR DECOLONIZATION NS SCH ×2 (09:28→21:15)
[2018-03-13] MEDS: ALPRAZolam 0.25 MG TABLET PO PRN ×2 (09:29→18:53)
[2018-03-13] MEDS ORDERED: LORazepam 2 MG/ML SDV VIAL ONE (11:38)
[2018-03-13 11:39] VITALS: BMI 52.8
--- NOTE | 2018-03-13 12:39 | PN ---
Progress Note (short form) - Note Progress Note: Pt seen/ examined in icu all f/u noted/ appreciated on abx eating ok afebrile c/c- mild abdominal pain- no n/v afebrile Vital Signs Temp 98.4 F 03/13/18 06:00 Pulse 64 03/13/18 11:40 Resp 16 03/13/18 10:00 BP 140/62 03/13/18 10:00 Pulse Ox 96 03/13/18 11:40 Intake & Output 03/12/18 03/13/18 03/13/18 23:59 11:59 23:59 Intake Total 20 120 Output Total 750 550 Balance -730 -430 Weight 289 lb Intake: IVPB 20 120 Output: Urine 750 550 Carroll 750 550 Other: Voiding Method Indwelling Catheter Bowel Movement No Yes: exlarge Height 5 ft 2 in Body Mass Index (BMI) 52.8 Active Medications Albuterol/Ipratropium (Duoneb -) 1 amp NEB RQID NOELLE Last Admin: 03/13/18 11:41 Dose: 1 amp Alprazolam (Xanax -) 0.25 mg PO Q6H PRN PRN Reason: ANXIETY Last Admin: 03/13/18 09:29 Dose: 0.25 mg Bacitracin (Bacitracin -) 1 applic TP DAILY NOELLE Last Admin: 03/13/18 09:29 Dose: 1 applic Chlorhexidine Gluconate (Hibiclens For Decolonization -) 1 applic TP HS NOELEL Last Admin: 03/12/18 23:30 Dose: 1 applic Heparin Sodium (Porcine) (Heparin -) 5,000 unit SQ TID NOELLE Last Admin: 03/13/18 06:25 Dose: 5,000 unit Ceftriaxone Sodium 2 gm/ (Dextrose) 100 mls @ 200 mls/hr IVPB DAILY NOELLE; Protocol Last Admin: 03/13/18 09:25 Dose: 200 mls/hr Metronidazole (Flagyl 500mg Premixed Ivpb -) 500 mg in 100 mls @ 100 mls/hr IVPB Q8H-IV NOELLE Last Admin: 03/13/18 09:25 Dose: 100 mls/hr Methylprednisolone Sodium Succinate (Solu-Medrol -) 60 mg IVPUSH Q6H-IV NOELLE Last Admin: 03/13/18 09:22 Dose: 60 mg Mupirocin (Bactroban Ointment (For Decolonization) -) 1 applic NS BID NOELLE Stop: 03/17/18 09:59 Last Admin: 03/13/18 09:28 Dose: 1 applic Trazodone HCl (Desyrel -) 50 mg PO HS NOELLE Last Admin: 03/13/18 01:19 Dose: 50 mg CBC,CMP WBC 4.1 K/mm3 (4.0-10.0) 03/13/18 05:30 RBC 3.67 M/mm3 (3.60-5.2) 03/13/18 05:30 Hgb 10.0 GM/dL (10.7-15.3) L 03/13/18 05:30 Hct 31.4 % (32.4-45.2) L 03/13/18 05:30 MCV 85.7 fl (80-96) 03/13/18 05:30 MCH 27.2 pg (25.7-33.7) 03/13/18 05:30 MCHC 31.8 g/dl (32.0-36.0) L 03/13/18 05:30 RDW 13.8 % (11.6-15.6) 03/13/18 05:30 Plt Count 187 K/MM3 (134-434) 03/13/18 05:30 MPV 8.3 fl (7.5-11.1) 03/13/18 05:30 Absolute Neuts (auto) 3.4 K/mm3 (1.5-8.0) 03/13/18 05:30 Neutrophils % 82.7 % (42.8-82.8) 03/13/18 05:30 Neutrophils % (Manual) 62.3 % (42.8-82.8) D 03/11/18 06:19 Band Neutrophils % 2.0 % 03/11/18 06:19 Lymphocytes % 14.9 % (8-40) D 03/13/18 05:30 Lymphocytes % (Manual) 27.6 % (8-40) D 03/11/18 06:19 Monocytes % 2.3 % (3.8-10.2) L 03/13/18 05:30 Monocytes % (Manual) 4 % (3.8-10.2) D 03/11/18 06:19 Eosinophils % 0.0 % (0-4.5) D 03/13/18 05:30 Eosinophils % (Manual) 1.0 % (0-4.5) D 03/11/18 06:19 Basophils % 0.1 % (0-2.0) 03/13/18 05:30 Basophils % (Manual) 0.0 % (0-2.0) 03/11/18 06:19 Myelocytes % (Man) 0 % (0-2) 03/11/18 06:19 Promyelocytes % (Man) 0 % (0-2) 03/11/18 06:19 Blast Cells % (Manual) 0 % (0-0) 03/11/18 06:19 Nucleated RBC % 0 % (0-0) 03/13/18 05:30 Metamyelocytes 1 % (0-2) D 03/11/18 06:19 Hypochromia 0 03/11/18 06:19 Platelet Estimate Normal 03/11/18 06:19 Polychromasia 0 03/11/18 06:19 Poikilocytosis 0 03/11/18 06:19 Basophilic Stippling 0 03/11/18 06:19 Anisocytosis 3+ 03/11/18 06:19 Microcytosis 2+ 03/11/18 06:19 Macrocytosis 0 03/11/18 06:19 Tear Drop Cells 0 03/11/18 06:19 Stomatocytes 0 03/11/18 06:19 Sodium 143 mmol/L (136-145) 03/13/18 05:30 Potassium 3.8 mmol/L (3.5-5.1) 03/13/18 05:30 Chloride 99 mmol/L (98-107) 03/13/18 05:30 Carbon Dioxide 36 mmol/L (21-32) H 03/13/18 05:30 Anion Gap 8 MMOL/L (8-16) 03/13/18 05:30 BUN 21 mg/dL (7-18) H 03/13/18 05:30 Creatinine 0.5 mg/dL (0.55-1.02) L 03/13/18 05:30 Creat Clearance w eGFR > 60 (>60) 03/13/18 05:30 POC Glucometer [phone] UNITS (80-120) 03/11/18 06:05 Random Glucose 122 mg/dL (74-106) H 03/13/18 05:30 Calcium 9.0 mg/dL (8.5-10.1) 03/13/18 05:30 Phosphorus 4.6 mg/dL (2.5-4.9) 03/13/18 05:30 Magnesium 2.2 mg/dL (1.8-2.4) 03/13/18 05:30 Total Bilirubin 0.5 mg/dL (0.2-1.0) 03/13/18 05:30 AST 13 U/L (15-37) L 03/13/18 05:30 ALT 49 U/L (12-78) 03/13/18 05:30 Alkaline Phosphatase 88 U/L (45-117) 03/13/18 05:30 Total Protein 6.5 g/dl (6.4-8.2) 03/13/18 05:30 Albumin 3.2 g/dl (3.4-5.0) L 03/13/18 05:30 Microbiology 03/11/18 06:45 Blood Culture - Preliminary Blood - Peripheral Venous Staphylococcus Species 03/11/18 06:24 Blood Culture - Preliminary Blood - Peripheral Venous NO GROWTH OBTAINED AFTER 48 HOURS, INCUBATION TO CONTINUE FOR 3 DAYS. 03/11/18 15:00 Gram Stain - Final Sputum - Endotrachea Suction/Ventilator 03/11/18 07:20 Urine Culture - Final Urine - Urine - Catheterized NO GROWTH OBTAINED ct chest/ abd - noted Physical Examination Constitutional: Yes: No Distress, Obese. on trach collar Eyes: Yes: Conjunctiva Clear Neck: Yes: Supple (s/p trach-- vent), Other Cardiovascular: Yes: Regular Rate and Rhythm Respiratory: Yes: Diminished Gastrointestinal: Yes: Soft, Abdomen, Obese-- mild ruq tenderness . bs + Edema: No Neurological: Yes: Alert Psychiatric: Yes: Alert Assessment/Plan Abx MRCP ordered meds reviewed continue other meds discussed with icu team/ nursing staff will follow cc time 20 min Problem List - Problems (1) Respiratory failure Code(s): J96.90 - RESPIRATORY FAILURE, UNSP, UNSP W HYPOXIA OR HYPERCAPNIA (2) Acute on chronic respiratory failure with hypoxia and hypercapnia Code(s): J96.21 - ACUTE AND CHRONIC RESPIRATORY FAILURE WITH HYPOXIA; J96.22 - ACUTE AND CHRONIC RESPIRATORY FAILURE WITH HYPERCAPNIA (3) Bipolar 1 disorder Code(s): F31.9 - BIPOLAR DISORDER, UNSPECIFIED (4) Hypoxia Code(s): R09.02 - HYPOXEMIA
--- NOTE | 2018-03-13 17:34 | PN ---
GI Progress Note Subjective: Covering for Dr. Royal who resumes care 03/15 No acute events Given diet this monring TTP RUQ, worse with coughing - Objective Vital Signs: Vital Signs Temperature 98.4 F 03/13/18 06:00 Pulse Rate 70 03/13/18 12:00 Respiratory Rate 30 H 03/13/18 12:00 Blood Pressure 151/64 03/13/18 12:00 O2 Sat by Pulse Oximetry (%) 96 03/13/18 11:40 Constitutional: Calm Eyes: No: Sclera Icterus Cardiovascular: Yes: Regular Rate and Rhythm Respiratory: Yes: Diminished (at bases b/l) Gastrointestinal Inspection: No: Distention ...Auscultate: Yes: Normoactive Bowel Sounds ...Palpate: Yes: Tenderness (TTP RUQ. I palpated the lateral right lower ribs as well...did not elicit tenderness, mild tenderness along the anterior aspect of the lower right ribs. majority of pain in the RUQ itself.). No: Hepatomegaly ...Percussion: No: Tympanitic Edema: Yes (B/L LE edema) Labs: CBC, BMP 03/13/18 05:30 03/13/18 05:30 INR, PTT INR 1.04 (0.83-1.09) 03/11/18 06:23 Hepatic Panel Total Bilirubin 0.5 mg/dL (0.2-1.0) 03/13/18 05:30 AST 13 U/L (15-37) L 03/13/18 05:30 ALT 49 U/L (12-78) 03/13/18 05:30 Alkaline Phosphatase 88 U/L (45-117) 03/13/18 05:30 Albumin 3.2 g/dl (3.4-5.0) L 03/13/18 05:30 - ....Imaging Cat Scan: Report Reviewed (Equivocal punctatae gallstone, mild dilatation of CBD not appreciated on CT, Mild hepatomegaly, Mild diffuse GB wall thickening on previous RUQ US not appreciated and no definite overdistention of the gallbladder noted, + Umbilical hernia, enlargement of fibroid uterus, splenomegaly), Image Reviewed Problem List - Problems (1) Right upper quadrant pain Assessment/Plan: Persistent RUQ pain: Per nurse surgery wanted MRCP performed: doubt patient will be able to 1. Lay flat in the machine 2. Fit in the machine 3. Tolerate laying flat without being on vent for that period of time Agree with HIDA Clear liquids until further evaluation Code(s): R10.11 - RIGHT UPPER QUADRANT PAIN
[2018-03-13] MEDS ORDERED: PT OWN MED DRAWER 7, Y5N ONE (20:56)
[2018-03-13] MEDS: CHLORHEXIDINE GLUCONATE 4% CLEANSER FOR DECOLONIZATION TP SCH (21:16)
[2018-03-14] MEDS: methylPREDNISolone NA SUCC 40 MG/1 ML VIAL IVPUSH SCH ×2 (02:27→08:11)
[2018-03-14] MEDS: HEPARIN NA (PORCINE) 5,000 UNITS/ML 1ML VIAL SQ SCH ×4 (05:24→21:02)
--- NOTE | 2018-03-14 07:31 | PN ---
Progress Note (short form) - Note Progress Note: alert c/o RUQ pain hungry Vital Signs Period Temp Pulse Resp BP Sys/Petersen Pulse Ox Last 24 Hr 98 F-98.2 F 43-84 16-33 123-155/61-89 93-100 cor-rrr lungs decreased bs at bases abd soft, ruq pain to palpation ext no edema CBC, BMP 03/13/18 05:30 03/13/18 05:30 Microbiology 03/11/18 06:24 Blood - Peripheral Venous Blood Culture - Preliminary NO GROWTH OBTAINED AFTER 72 HOURS, INCUBATION TO CONTINUE FOR 2 DAYS. 03/11/18 15:00 Sputum - Endotrachea Suction/Ventilator Gram Stain - Final 03/11/18 15:00 Sputum - Endotrachea Suction/Ventilator Sputum Culture - Preliminary NORMAL RESPIRATORY MICHAEL 03/11/18 06:45 Blood - Peripheral Venous Blood Culture - Preliminary Staphylococcus Species 03/11/18 07:20 Urine - Urine - Catheterized Urine Culture - Final NO GROWTH OBTAINED ct scans noted- lung finding improved, especially right lung compared to prior scan, enlarged leiomyoma a/p ruq pain ?biliary now on rocephin/flagyl to continue chronic resp failure- ct scan not convincing for acute pneumonia +blood culture- 07/23 bottles- staph spp- suspect contaminant enlarged leiomyoma- consider gyne evaluation morbid obesity Problem List - Problems (1) Pneumonia Code(s): J18.9 - PNEUMONIA, UNSPECIFIED ORGANISM Qualifiers: Pneumonia type: due to unspecified organism Laterality: unspecified laterality Lung location: unspecified part of lung Qualified Code(s): J18.9 - Pneumonia, unspecified organism (2) Respiratory failure Code(s): J96.90 - RESPIRATORY FAILURE, UNSP, UNSP W HYPOXIA OR HYPERCAPNIA (3) Tracheostomy dependence Code(s): Z93.0 - TRACHEOSTOMY STATUS (4) Morbid obesity Code(s): E66.01 - MORBID (SEVERE) OBESITY DUE TO EXCESS CALORIES
--- NOTE | 2018-03-14 07:40 | PN ---
Progress Note (short form) - Note Progress Note: PULM/CCM Patient seen and examined in the ICU. Doing well w/ new trach. Awake and alert , TC all the day long, Vnet by night. Active Medications Albuterol/Ipratropium (Duoneb -) 1 amp NEB RQID NOELLE Last Admin: 03/14/18 11:45 Dose: 1 amp Alprazolam (Xanax -) 0.25 mg PO Q6H PRN PRN Reason: ANXIETY Last Admin: 03/14/18 11:06 Dose: 0.25 mg Bacitracin (Bacitracin -) 1 applic TP DAILY NOELLE Last Admin: 03/14/18 09:27 Dose: 1 applic Chlorhexidine Gluconate (Hibiclens For Decolonization -) 1 applic TP HS NOELLE Last Admin: 03/13/18 21:16 Dose: 1 applic Heparin Sodium (Porcine) (Heparin -) 5,000 unit SQ TID NOELLE Last Admin: 03/14/18 07:10 Dose: Not Given Ceftriaxone Sodium 2 gm/ (Dextrose) 100 mls @ 200 mls/hr IVPB DAILY NOELLE; Protocol Last Admin: 03/14/18 09:26 Dose: 200 mls/hr Metronidazole (Flagyl 500mg Premixed Ivpb -) 500 mg in 100 mls @ 100 mls/hr IVPB Q8H-IV NOELLE Last Admin: 03/14/18 09:26 Dose: 100 mls/hr Methylprednisolone Sodium Succinate (Solu-Medrol -) 60 mg IVPUSH Q6H-IV NOELLE Last Admin: 03/14/18 08:11 Dose: 60 mg Mupirocin (Bactroban Ointment (For Decolonization) -) 1 applic NS BID NOELLE Stop: 03/17/18 09:59 Last Admin: 03/14/18 09:27 Dose: 1 applic Trazodone HCl (Desyrel -) 50 mg PO HS NOELLE Last Admin: 03/13/18 21:22 Dose: 50 mg CBC, BMP 03/13/18 05:30 03/13/18 05:30 Intake & Output 03/11/18 03/12/18 03/13/18 03/14/18 23:59 23:59 23:59 23:59 Intake Total 364 64.1 1150 300 Output Total 1150 1100 2250 300 Balance -786 -1035.9 -1100 0 Weight 131.287 kg 131.088 kg GEN: MO middle aged woman in bed, trached, on the vent, CA+OX3 PULM: Diminished @ the bases CV: cor-rr ABD: Obese, +BS, S/S N/T X4Q, no c/o RU Q discomfort EXT: + Pulses, WWPX4, trace edema CBC, BMP 03/13/18 05:30 03/13/18 05:30 Microbiology 03/11/18 06:24 Blood - Peripheral Venous Blood Culture - Preliminary NO GROWTH OBTAINED AFTER 72 HOURS, INCUBATION TO CONTINUE FOR 2 DAYS. 03/11/18 15:00 Sputum - Endotrachea Suction/Ventilator Gram Stain - Final 03/11/18 15:00 Sputum - Endotrachea Suction/Ventilator Sputum Culture - Preliminary NORMAL RESPIRATORY MICHAEL 03/11/18 06:45 Blood - Peripheral Venous Blood Culture - Preliminary Staphylococcus Species 03/11/18 07:20 Urine - Urine - Catheterized Urine Culture - Final NO GROWTH OBTAINED RECENT STUDIES TO NOTE: CHEST CT 03/12: Soft tissue detail is somewhat limited due to artifact associated with body habitus. No evidence of pneumoperitoneum, or bowel obstruction. There is no definite gallbladder overdistention. Mild diffuse wall thickening identified on sonography is difficult to appreciate on this CT study. On CT there is equivocal visualization of a punctate gallbladder calculus. Mild dilatation of common bile duct described on sonography is also difficult to appreciate on this CT exam possibly due to previously described diminished soft tissue detail. There is no definite intrahepatic biliary tract dilatation. Mild hepatomegaly is noted. No obvious mass lesion is identified. The spleen is mildly enlarged measuring 15 cm in length. The spleen previously measured 13 cm in length on a CT study of 11/24/2012. No gross lymphadenopathy is identified. The pancreas, adrenal glands and left kidney demonstrate no obvious noncontrast pathology. A 1.1 cm exophytic focus is seen along the medial cortex of the right kidney possibly representing a cyst allowing for diminished soft tissue detail. Interval enlargement of a large uterine leiomyoma is seen currently measuring 14.4 cm in maximum diameter, previously 10.7 cm. There is resultant partial effacement of the urinary bladder. A Carroll catheter is noted in place. Interval development of a small amount of nonspecific free fluid is seen within the ventrolateral aspect of the right pelvis. Interval development of an umbilical hernia is seen with the subcutaneous hernia sac demonstrating an 8 cm maximum diameter. A very small amount of free fluid is noted within the hernia sac. No obvious CT evidence of acute appendicitis, diverticulitis or colitis. There is no gross small bowel pathology. No aortic aneurysm is seen CTAP 03/12: Evaluation is somewhat limited due to artifact associated with body habitus. Mild diffuse gallbladder wall thickening identified on sonography performed earlier the same date is difficult to appreciate on this CT exam. There is no definite gallbladder overdistention. A possible punctate gallbladder calculus is noted. If there is clinical concern for possible acute cholecystitis additional evaluation utilizing a radionuclide HIDA scan may be considered. Mild common bile duct dilatation described on sonography is also difficult to appreciate on the current exam. Mild splenomegaly is noted which appears mildly increased in comparison to a CT study of 12/04/2012. Mild hepatomegaly is seen without interval change. Interval development of an umbilical hernia is seen containing fat and a small amount of free fluid. No associated bowel herniation is visualized. Interval enlargement of a large uterine leiomyoma is noted currently measuring 14.4 cm, previously 10.7 cm. ABD US 03/12: Limited examination due to the patient's body habitus. Fatty liver versus hepatocellular disease. Please correlate with liver enzymes. Thickened gallbladder wall with a trace of pericholecystic free fluid and without gross evidence of gallstones. Rule out acalculous cholecystitis. Dilated common bile duct measuring 8 mm for which further evaluation is needed. ASSESSMENT AND PLAN: Acute on Chronic Hypoxic and Hypercapneic Respiratory Failure Acute COPD Exacerbation r/o Pneumonia LV Diastolic Dysfunction Seizure Disorder Bipolar Disorder - Inhaled bronchodilators standing and PRN - IV medrol - TC by day - Vent by night - D/c Abx - PO as tolerated - DVT prophylaxis - UTO ERCP/MRCP 2/ Vent - D/c --> Floor for continued management DGL, ACNP-BC [facility] ICU PULM/CCM 4447 Critical Care Total Critical Care Time (in minutes): 38 Critical Care Statement: The care of this patient involved high complexity decision making to prevent further life threatening deterioration of the patient 's condition and/or to evaluate & treat vital organ system(s) failure or risk of failure.
[2018-03-14] MEDS ORDERED: DEXTROSE 5%-WATER 100 ML IVPB ONE (08:05)
[2018-03-14] MEDS: ALBUTEROL SO4 2.5/IPRATROPIUM 0.5 INH SOL 3 ML VIAL.NEB. NEB SCH ×4 (08:24→20:34)
--- NOTE | 2018-03-14 09:15 | PN ---
GI Progress Note Subjective: For Dr. Royal, who resumes care 03/15 No acute events RUQ pain waxes and wanes - Objective Vital Signs: Vital Signs Temperature 98.1 F 03/14/18 06:00 Pulse Rate 40 L 03/14/18 08:22 Respiratory Rate 23 03/14/18 08:22 Blood Pressure 154/89 03/14/18 06:00 O2 Sat by Pulse Oximetry (%) 100 03/14/18 08:22 Constitutional: Calm Eyes: No: Sclera Icterus Cardiovascular: Yes: Regular Rate and Rhythm Respiratory: Yes: Diminished (at bases b/l) Gastrointestinal Inspection: No: Distention ...Auscultate: Yes: Normoactive Bowel Sounds ...Palpate: Yes: Tenderness (TTP RUQ). No: Guarding, Tenderness, Rebound ...Percussion: No: Tympanitic Edema: No Edema: LLE: 2+, RLE: 2+ Neurological: Yes: Alert Labs: CBC, BMP 03/13/18 05:30 03/13/18 05:30 INR, PTT INR 1.04 (0.83-1.09) 03/11/18 06:23 Hepatic Panel Total Bilirubin 0.5 mg/dL (0.2-1.0) 03/13/18 05:30 AST 13 U/L (15-37) L 03/13/18 05:30 ALT 49 U/L (12-78) 03/13/18 05:30 Alkaline Phosphatase 88 U/L (45-117) 03/13/18 05:30 Albumin 3.2 g/dl (3.4-5.0) L 03/13/18 05:30 Problem List - Problems (1) Right upper quadrant pain Assessment/Plan: ? rib pain ? GB pathology On clears For HIDA tomorrow IV Abx Code(s): R10.11 - RIGHT UPPER QUADRANT PAIN
[2018-03-14] MEDS: CEFTRIAXONE 2 GM in DEXTROSE 5%-WATER 100 ML IVPB SCH (09:26)
[2018-03-14] MEDS: BACITRACIN 15 GM TUBE TOPICAL OINTMENT TP SCH (09:27)
[2018-03-14] MEDS: MUPIROCIN 2% TOPICAL OINTMENT FOR DECOLONIZATION NS SCH ×2 (09:27→21:02)
[2018-03-14] MEDS ORDERED: ACETAMINOPHEN 500 MG TABLET (FP) PO ONE (09:45)
[2018-03-14] MEDS: ALPRAZolam 0.25 MG TABLET PO PRN (11:06)
--- NOTE | 2018-03-14 13:04 | PN ---
Progress Note (short form) - Note Progress Note: pt seen/ examined all f/u noted Comfortable tolerating liquid diet says sometimes ruq pain comes back denies n/v looks comfortable afebrile Vital Signs Temp 98.2 F 03/14/18 10:00 Pulse 45 L 03/14/18 12:00 Resp 22 03/14/18 12:00 BP 147/81 03/14/18 12:00 Pulse Ox 100 03/14/18 09:00 Intake & Output 03/13/18 03/14/18 03/14/18 23:59 11:59 23:59 Intake Total 540 300 Output Total 1700 300 Balance -1160 0 Intake: IVPB 100 100 Oral 440 200 Output: Urine 1700 300 Carroll 1700 300 Other: Voiding Method Indwelling Catheter Indwelling Catheter Bowel Movement Yes: large No # Bowel Movements 1 Active Medications Albuterol/Ipratropium (Duoneb -) 1 amp NEB RQID [facility] Last Admin: 03/14/18 11:45 Dose: 1 amp Alprazolam (Xanax -) 0.25 mg PO Q6H PRN PRN Reason: ANXIETY Last Admin: 03/14/18 11:06 Dose: 0.25 mg Bacitracin (Bacitracin -) 1 applic TP DAILY NOELLE Last Admin: 03/14/18 09:27 Dose: 1 applic Chlorhexidine Gluconate (Hibiclens For Decolonization -) 1 applic TP HS NOELLE Last Admin: 03/13/18 21:16 Dose: 1 applic Heparin Sodium (Porcine) (Heparin -) 5,000 unit SQ TID [facility] Last Admin: 03/14/18 07:10 Dose: Not Given Ceftriaxone Sodium 2 gm/ (Dextrose) 100 mls @ 200 mls/hr IVPB DAILY [facility]; Protocol Last Admin: 03/14/18 09:26 Dose: 200 mls/hr Metronidazole (Flagyl 500mg Premixed Ivpb -) 500 mg in 100 mls @ 100 mls/hr IVPB Q8H-IV NOELLE Last Admin: 03/14/18 09:26 Dose: 100 mls/hr Methylprednisolone Sodium Succinate (Solu-Medrol -) 60 mg IVPUSH BID NOELLE Mupirocin (Bactroban Ointment (For Decolonization) -) 1 applic NS BID [facility] Stop: 03/17/18 09:59 Last Admin: 03/14/18 09:27 Dose: 1 applic Trazodone HCl (Desyrel -) 50 mg PO HS NOELLE Last Admin: 03/13/18 21:22 Dose: 50 mg CBC, BMP 03/13/18 05:30 03/13/18 05:30 Hepatic Panel Total Bilirubin 0.5 mg/dL (0.2-1.0) 03/13/18 05:30 AST 13 U/L (15-37) L 03/13/18 05:30 ALT 49 U/L (12-78) 03/13/18 05:30 Alkaline Phosphatase 88 U/L (45-117) 03/13/18 05:30 Albumin 3.2 g/dl (3.4-5.0) L 03/13/18 05:30 Microbiology 03/11/18 06:24 Blood Culture - Preliminary Blood - Peripheral Venous NO GROWTH OBTAINED AFTER 72 HOURS, INCUBATION TO CONTINUE FOR 2 DAYS. 03/11/18 15:00 Gram Stain - Final Sputum - Endotrachea Suction/Ventilator Sputum Culture - Preliminary NORMAL RESPIRATORY MICHAEL 03/11/18 06:45 Blood Culture - Preliminary Blood - Peripheral Venous Staphylococcus Species Physical Examination Constitutional: Yes: No Distress, Obese. on trach collar . awake Eyes: Yes: Conjunctiva Clear Neck: Yes: Supple (s/p trach-- vent), Other Cardiovascular: Yes: Regular Rate and Rhythm Respiratory: Yes: Diminished Gastrointestinal: Yes: Soft, Abdomen, Obese-- non tender. . bs + Edema: No Neurological: Yes: Alert Psychiatric: Yes: Alert Assessment/Plan Abx clinically stable HIDA scan meds reviewed continue meds discussed with icu team/ nursing staff will follow cc time 20 min. Problem List - Problems (1) Respiratory failure Code(s): J96.90 - RESPIRATORY FAILURE, UNSP, UNSP W HYPOXIA OR HYPERCAPNIA (2) Acute on chronic respiratory failure with hypoxia and hypercapnia Code(s): J96.21 - ACUTE AND CHRONIC RESPIRATORY FAILURE WITH HYPOXIA; J96.22 - ACUTE AND CHRONIC RESPIRATORY FAILURE WITH HYPERCAPNIA (3) Bipolar 1 disorder Code(s): F31.9 - BIPOLAR DISORDER, UNSPECIFIED (4) Hypoxia Code(s): R09.02 - HYPOXEMIA (5) Right upper quadrant pain Code(s): R10.11 - RIGHT UPPER QUADRANT PAIN
--- NOTE | 2018-03-14 14:24 | CONSULT ---
Consult Consult Specialty:: General Surgery Reason for Consultation:: RUQ pain - History of Present Illness Chief Complaint: RUQ pain History of Present Illness: 53 yo female PMH COPD, asthma, CHF, obesity, seizure disorder, bipolar disorder and hypercapnia who presents to the emergency department via EMS with respiratory distress from [facility]. The patient appear to be tachypnea and suddenly developed agonal breathing. The patient became cyanotic and required intubation through the stoma. She also was noted to have RUQ discomfort and tenderness on exam. RUQ ultrasound showed changes consistent with acute cholecystitis. - History Source History Provided By: Patient, Medical Record Limitations to Obtaining History: No Limitations - Past Medical History Pulmonary: Yes: COPD Gastrointestinal: Yes: Other (colon polyps) Psych: Yes: Bipolar Endocrine: Yes: Diabetes Mellitus - Past Surgical History Additional Surgical History: Trach - Alcohol/Substance Use Hx Alcohol Use: No History of Substance Use: reports: Marijuana - Smoking History Smoking history: Former smoker Have you smoked in the past 12 months: No Aproximately how many cigarettes per day: 5 If you are a former smoker, when did you quit?: 2013 - Social History Usual Living Arrangement: Snf ADL: Support Services Occupation: disabled Place of : [facility] History of Recent Travel: No Home Medications - Allergies Allergies/Adverse Reactions: Allergies Allergy/AdvReac Type Severity Reaction Status Date / Time No Known Allergies Allergy Unverified 03/11/18 06:28 - Home Medications Home Medications: Ambulatory Orders Acetaminophen 650 mg PO DAILY 10/18/17 Albuterol Sulfate [Proair Respiclick] 90 mcg IH TID 10/18/17 Aripiprazole 5 mg PO DAILY 10/18/17 Aspirin 81 mg PO DAILY 10/18/17 Ergocalciferol (Vitamin D2) [Vitamin D2] 50,000 unit PO WEEKLY 10/18/17 Furosemide [Lasix -] 20 mg PO DAILY 10/18/17 Heparin Sod,Porcine/0.9 % NaCl [Heparin 5,000 Unit/1,000 ml-Ns] 5,000 unit SCJ BID 10/18/17 Insulin Lispro [Humalog] 0 unit SQ ASDIR 10/18/17 Lactobacillus Acidophilus [Acidophilus] 1 each PO BID 10/18/17 Levothyroxine [Synthroid -] 25 mcg PO DAILY 10/18/17 Mirtazapine 15 mg PO DAILY 10/18/17 traZODone HCL [Trazodone HCl] 50 mg PO DAILY 10/18/17 Sennosides [Senna -] 2 tab PO HS tablet 01/18/18 Atorvastatin Ca [Lipitor] 20 mg PO HS 01/24/18 Budesonide/Formeterol Fumarate [SYMBICORT 160/4.5mcg -] 1 inh PO BID 01/24/18 Clotrimazole/Betamet Diprop [Lotrisone -] 1 applic TP BID 01/24/18 Docusate Sodium [Colace] 100 mg PO DAILY 01/24/18 Escitalopram Oxalate [Lexapro -] 20 mg PO DAILY 01/24/18 Magnesium Hydroxide [Milk of Magnesia] 400 mg PO ASDIR PRN 01/24/18 Polyethylene Glycol 3350 [Gavilax] 17 gm PO DAILY 01/24/18 Vit A/Vitamin D3/E/Aloe V/Zinc [Periguard Ointment] 100 gm TP BID 01/24/18 hydrOXYzine HCL [Atarax -] 10 mg PO TID 01/24/18 Alprazolam [Xanax] 0.25 mg PO Q8H PRN #30 tablet MDD 3 02/03/18 Guaifenesin/D-Methorphan Hb [Diabetic Tussin Dm -] 10 ml PO Q4H PRN ml Family Disease History - Family Disease History Family Disease History: Other: Father (: PNA), Mother (: COPD ) Other Family History: No family history of colorectal cancer or other GI malignancy Review of Systems - Review of Systems Constitutional: denies: Chills, Fever Eyes: denies: Blurred Vision, Recent Change in Vision HENT: denies: Difficult Swallowing, Throat Pain Neck: reports: Other (tracheostomy). denies: Lumps, Tenderness Cardiovascular: denies: Chest Pain, Palpitations Respiratory: reports: SOB. denies: Cough Gastrointestinal: denies: Abdominal Pain, Dysphagia, Nausea Genitourinary: denies: Burning, Discharge Breasts: reports: No Symptoms Reported. denies: Pain Musculoskeletal: denies: Back Pain, Muscle Pain Integumentary: denies: Incision, Lesions Neurological: denies: Seizure, Syncope Endocrine: denies: Unexplained Weight Gain, Unexplained Weight Loss Hematology/Lymphatic: denies: Easily Bruised, Excessive Bleeding Psychiatric: denies: Anxiety, Depression Physical Exam Vital Signs: Vital Signs Temperature 98.2 F 03/14/18 14:00 Pulse Rate 46 L 03/14/18 14:00 Respiratory Rate 26 H 03/14/18 14:00 Blood Pressure 136/74 03/14/18 14:00 O2 Sat by Pulse Oximetry (%) 100 03/14/18 09:00 Vital Signs Period Temp Pulse Resp BP Sys/Petersen Pulse Ox Last 24 Hr 98.2 F-98.6 F 40-59 18-28 128-158/74-94 97-100 Constitutional: Yes: Well Nourished, No Distress, Obese. No: Calm Eyes: Yes: Conjunctiva Clear, EOM Intact HENT: Yes: Atraumatic, Other (alopecia). No: Normocephalic Neck: Yes: Supple, Trachea Midline, Other (tracheostomy) Cardiovascular: Yes: Regular Rate and Rhythm, S1, S2 Respiratory: Yes: Regular, CTA Bilaterally Gastrointestinal: Yes: Normal Bowel Sounds, Soft, Abdomen, Obese, Tenderness, Tenderness, Epigastrium (RUQ, - monreal's). No: Tenderness, Rebound ...Rectal Exam: Yes: Deferred Renal/: No: Anuria, CVA Tenderness - Left Extremities: No: Cool, Cyanosis Edema: Yes Edema: LLE: 1+, RLE: 1+ Peripheral Pulses WNL: Yes Integumentary: No: Incision, Jaundice, Rash Neurological: Yes: Alert, Oriented Psychiatric: Yes: Alert, Oriented Labs: CBC, BMP 03/13/18 05:30 03/13/18 05:30 Imaging - Results Cat Scan: Report Reviewed, Image Reviewed (inflamsed GB) Ultrasound: Report Reviewed, Image Reviewed Problem List - Problems (1) Acalculous cholecystitis Assessment/Plan: 53yo female MMP incluiding obesity and polycythemia vera present with complaints of RUQ pain and conistent changes on ultrasound. CBD 0.7 enlarged. Not and ideal operative candidate given comorbities NPO and IVF hydration IV antibiotics HIDA versus MRCP thursday 03/15 trend labs will follow This patient is critically ill. Time spent reviewing chart, examining patient, talking with providers and/or family and documentation is 35 minutes. Thank you for the opportunity to participate in the care of this patient. Code(s): K81.9 - CHOLECYSTITIS, UNSPECIFIED (2) Right upper quadrant pain Code(s): R10.11 - RIGHT UPPER QUADRANT PAIN (3) Acute on chronic respiratory failure with hypoxia and hypercapnia Code(s): J96.21 - ACUTE AND CHRONIC RESPIRATORY FAILURE WITH HYPOXIA; J96.22 - ACUTE AND CHRONIC RESPIRATORY FAILURE WITH HYPERCAPNIA (4) CHF (congestive heart failure) Code(s): I50.9 - HEART FAILURE, UNSPECIFIED (5) COPD exacerbation Code(s): J44.1 - CHRONIC OBSTRUCTIVE PULMONARY DISEASE W (ACUTE) EXACERBATION (6) Morbid obesity Code(s): E66.01 - MORBID (SEVERE) OBESITY DUE TO EXCESS CALORIES (7) Polycythemia Code(s): D75.1 - SECONDARY POLYCYTHEMIA (8) Tracheostomy dependence Code(s): Z93.0 - TRACHEOSTOMY STATUS
[2018-03-14] MEDS ORDERED: PT OWN MED DRAWER 7, Y5N ONE (20:55)
[2018-03-14] MEDS: ACETAMINOPHEN 1000 MG/100 ML VIAL (NON FORMULARY) IVPB PRN (21:01)
[2018-03-14] MEDS: methylPREDNISolone NA SUCC 125 MG/2 ML VIAL IVPUSH SCH (21:03)
[2018-03-14] MEDS: CHLORHEXIDINE GLUCONATE 4% CLEANSER FOR DECOLONIZATION TP SCH (22:00)
[2018-03-14] MEDS: traZODone HCL 50 MG TABLET (FP) PO SCH (22:10)
[2018-03-15 06:06] LABS: HEMATOCRIT 31.7 % (32.4-45.2); HEMOGLOBIN 10.2 GM/dL (10.7-15.3); MCH 27.9 pg (25.7-33.7); MCHC 32.1 g/dl (32.0-36.0); MEAN CELL VOLUME 86.9 fl (80-96); MEAN PLT VOLUME 8.6 fl (7.5-11.1); PLATELET COUNT 204 K/MM3 (134-434); RBC 3.64 M/mm3 (3.60-5.2); WHITE BLOOD COUNT 4.8 K/mm3 (4.0-10.0)
[2018-03-15] MEDS: HEPARIN NA (PORCINE) 5,000 UNITS/ML 1ML VIAL SQ SCH ×3 (06:22→22:28)
[2018-03-15 06:30] LABS: ALBUMIN 3.2 g/dl (3.4-5.0); ANION GAP 7 MMOL/L (8-16); BLOOD UREA NITROGEN 16 mg/dL (7-18); CALCIUM 8.5 mg/dL (8.5-10.1); CHLORIDE 100 mmol/L (98-107); CO2 35 mmol/L (21-32); CREATININE 0.4 mg/dL (0.55-1.02); GLUCOSE,RANDOM 93 mg/dL (74-106); MAGNESIUM 2.2 mg/dL (1.8-2.4); POTASSIUM 4.4 mmol/L (3.5-5.1); SGOT/AST 9 U/L (15-37); SGPT/ALT 39 U/L (12-78); SODIUM 142 mmol/L (136-145)
[2018-03-15 06:32] LABS: ALK PHOS 73 U/L (45-117); BILIRUBIN,TOTAL 0.4 mg/dL (0.2-1.0); TOT PROT 6.5 g/dl (6.4-8.2)
[2018-03-15] MEDS ORDERED: DEXTROSE 5%-WATER 100 ML IVPB ONE (07:27)
[2018-03-15] MEDS: ACETAMINOPHEN 1000 MG/100 ML VIAL (NON FORMULARY) IVPB PRN ×2 (07:29→22:28)
[2018-03-15] MEDS: ALBUTEROL SO4 2.5/IPRATROPIUM 0.5 INH SOL 3 ML VIAL.NEB. NEB SCH ×4 (07:30→20:39)
[2018-03-15] MEDS: ALPRAZolam 0.25 MG TABLET PO PRN ×2 (07:30→13:54)
[2018-03-15] MEDS: CEFTRIAXONE 2 GM in DEXTROSE 5%-WATER 100 ML IVPB SCH (09:11)
[2018-03-15] MEDS: methylPREDNISolone NA SUCC 125 MG/2 ML VIAL IVPUSH SCH (09:59)
--- NOTE | 2018-03-15 10:17 | PN ---
Progress Note (short form) - Note Progress Note: alert c/o RUQ pain hungry on trach collar Vital Signs Period Temp Pulse Resp BP Sys/Petersen Pulse Ox Last 24 Hr 98.2 F-98.6 F 40-59 18-28 128-158/74-94 97-100 cor-rrr lungs clear abd soft,RUQ discomfort to palpation ext no edema CBC, BMP 03/15/18 05:30 03/15/18 05:30 Microbiology 03/11/18 06:24 Blood - Peripheral Venous Blood Culture - Preliminary NO GROWTH OBTAINED AFTER 96 HOURS, INCUBATION TO CONTINUE FOR 1 DAYS. 03/11/18 15:00 Sputum - Endotrachea Suction/Ventilator Gram Stain - Final 03/11/18 15:00 Sputum - Endotrachea Suction/Ventilator Sputum Culture - Preliminary NORMAL RESPIRATORY MICHAEL 03/11/18 06:45 Blood - Peripheral Venous Blood Culture - Preliminary Staphylococcus Species 03/11/18 07:20 Urine - Urine - Catheterized Urine Culture - Final NO GROWTH OBTAINED ct scans noted- lung finding improved, especially right lung compared to prior scan, enlarged leiomyoma a/p ruq pain ?biliary continue rocephin/flagyl for imaging today chronic resp failure- ct scan not convincing for acute pneumonia +blood culture- 07/23 bottles- staph spp- suspect contaminant enlarged leiomyoma- consider gyne evaluation morbid obesity Problem List - Problems (1) Pneumonia Code(s): J18.9 - PNEUMONIA, UNSPECIFIED ORGANISM Qualifiers: Pneumonia type: due to unspecified organism Laterality: unspecified laterality Lung location: unspecified part of lung Qualified Code(s): J18.9 - Pneumonia, unspecified organism (2) Respiratory failure Code(s): J96.90 - RESPIRATORY FAILURE, UNSP, UNSP W HYPOXIA OR HYPERCAPNIA (3) Tracheostomy dependence Code(s): Z93.0 - TRACHEOSTOMY STATUS (4) Morbid obesity Code(s): E66.01 - MORBID (SEVERE) OBESITY DUE TO EXCESS CALORIES
--- NOTE | 2018-03-15 10:19 | PN ---
Progress Note, Physician Chief Complaint: RUQ abdominal pain History of Present Illness: 53 yo female PMH COPD, asthma, CHF, obesity, seizure disorder, bipolar disorder and hypercapnia who presents to the emergency department via EMS with respiratory distress from [facility]. stable overnight, reports persistent RUQ abdominal pain - Current Medication List Current Medications: Active Medications Acetaminophen (Ofirmev Injection -) 1,000 mg IVPB Q6H PRN PRN Reason: PAIN Last Admin: 03/15/18 07:29 Dose: 1,000 mg Albuterol/Ipratropium (Duoneb -) 1 amp NEB RQID NOELLE Last Admin: 03/15/18 07:30 Dose: 1 amp Alprazolam (Xanax -) 0.25 mg PO Q6H PRN PRN Reason: ANXIETY Last Admin: 03/15/18 07:30 Dose: 0.25 mg Bacitracin (Bacitracin -) 1 applic TP DAILY NOELLE Last Admin: 03/14/18 09:27 Dose: 1 applic Chlorhexidine Gluconate (Hibiclens For Decolonization -) 1 applic TP HS NOELLE Last Admin: 03/14/18 22:00 Dose: 1 applic Heparin Sodium (Porcine) (Heparin -) 5,000 unit SQ TID NOELLE Last Admin: 03/15/18 06:22 Dose: 5,000 unit Ceftriaxone Sodium 2 gm/ (Dextrose) 100 mls @ 200 mls/hr IVPB DAILY [facility]; Protocol Last Admin: 03/15/18 09:11 Dose: 200 mls/hr Metronidazole (Flagyl 500mg Premixed Ivpb -) 500 mg in 100 mls @ 100 mls/hr IVPB Q8H-IV NOELLE Last Admin: 03/15/18 09:59 Dose: 100 mls/hr Methylprednisolone Sodium Succinate (Solu-Medrol -) 60 mg IVPUSH BID NOELLE Last Admin: 03/15/18 09:59 Dose: 60 mg Mupirocin (Bactroban Ointment (For Decolonization) -) 1 applic NS BID NOELLE Stop: 03/17/18 09:59 Last Admin: 03/14/18 21:02 Dose: 1 applic Trazodone HCl (Desyrel -) 50 mg PO HS NOELLE Last Admin: 03/14/18 22:10 Dose: Not Given - Objective Vital Signs: Vital Signs Temperature 98.6 F 03/15/18 06:00 Pulse Rate 59 L 03/15/18 08:46 Respiratory Rate 19 03/15/18 08:38 Blood Pressure 158/94 03/15/18 08:00 O2 Sat by Pulse Oximetry (%) 97 03/15/18 08:46 Vital Signs Period Temp Pulse Resp BP Sys/Petersen Pulse Ox Last 24 Hr 98.2 F-98.6 F 40-59 18-28 128-158/74-94 97-100 Intake & Output 03/14/18 03/15/18 03/15/18 23:59 07:59 15:59 Intake Total 420 Output Total 1600 400 Balance -1180 -400 Intake: IVPB 100 Oral 320 Output: Urine 1600 400 Carroll 1600 400 Other: Voiding Method Indwelling Catheter Indwelling Catheter Bowel Movement No Labs: CBC, BMP 03/15/18 05:30 03/15/18 05:30 INR, PTT INR 1.04 (0.83-1.09) 03/11/18 06:23 Problem List - Problems (1) Acalculous cholecystitis Assessment/Plan: 53yo female MMP incluiding obesity and polycythemia vera present with complaints of RUQ pain and conistent changes on ultrasound. CBD 0.7 enlarged. Not and ideal operative candidate given comorbities. HIDA could not be done because the patient was not able to lay flat for an enxtended period. This was discussed with Dr. Field. Will continue to monitor clinically for worsening. If worsening consider cholecystostyomy placement. NPO and IVF hydration IV antibiotics trend labs will follow This patient is critically ill. Time spent reviewing chart, examining patient, talking with providers and/or family and documentation is 35 minutes. Thank you for the opportunity to participate in the care of this patient. Code(s): K81.9 - CHOLECYSTITIS, UNSPECIFIED (2) Right upper quadrant pain Code(s): R10.11 - RIGHT UPPER QUADRANT PAIN (3) Acute on chronic respiratory failure with hypoxia and hypercapnia Code(s): J96.21 - ACUTE AND CHRONIC RESPIRATORY FAILURE WITH HYPOXIA; J96.22 - ACUTE AND CHRONIC RESPIRATORY FAILURE WITH HYPERCAPNIA (4) CHF (congestive heart failure) Code(s): I50.9 - HEART FAILURE, UNSPECIFIED (5) COPD exacerbation Code(s): J44.1 - CHRONIC OBSTRUCTIVE PULMONARY DISEASE W (ACUTE) EXACERBATION (6) Morbid obesity Code(s): E66.01 - MORBID (SEVERE) OBESITY DUE TO EXCESS CALORIES (7) Polycythemia Code(s): D75.1 - SECONDARY POLYCYTHEMIA (8) Tracheostomy dependence Code(s): Z93.0 - TRACHEOSTOMY STATUS
--- NOTE | 2018-03-15 11:25 | PN ---
Progress Note (short form) - Note Progress Note: Pt seen/ examined in icu pt comfortable alert/ awake all f/u noted for hida today complains of pain today-- ruq afebrile Vital Signs Temp 98.6 F 03/15/18 06:00 Pulse 50 L 03/15/18 10:00 Resp 28 H 03/15/18 11:17 BP 136/74 03/15/18 10:00 Pulse Ox 95 03/15/18 11:16 Intake & Output 03/14/18 03/14/18 03/15/18 11:59 23:59 11:59 Intake Total 300 620 Output Total 300 3400 400 Balance 0 -2780 -400 Intake: IVPB 100 300 Oral 200 320 Output: Urine 300 3400 400 Carroll 300 3400 400 Other: Voiding Method Indwelling Catheter Indwelling Catheter Indwelling Catheter Bowel Movement No No Active Medications Acetaminophen (Ofirmev Injection -) 1,000 mg IVPB Q6H PRN PRN Reason: PAIN Last Admin: 03/15/18 07:29 Dose: 1,000 mg Albuterol/Ipratropium (Duoneb -) 1 amp NEB RQID NOELLE Last Admin: 03/15/18 11:19 Dose: 1 amp Alprazolam (Xanax -) 0.25 mg PO Q6H PRN PRN Reason: ANXIETY Last Admin: 03/15/18 07:30 Dose: 0.25 mg Bacitracin (Bacitracin -) 1 applic TP DAILY NOELLE Last Admin: 03/14/18 09:27 Dose: 1 applic Chlorhexidine Gluconate (Hibiclens For Decolonization -) 1 applic TP HS NOELLE Last Admin: 03/14/18 22:00 Dose: 1 applic Heparin Sodium (Porcine) (Heparin -) 5,000 unit SQ TID NOELLE Last Admin: 03/15/18 06:22 Dose: 5,000 unit Ceftriaxone Sodium 2 gm/ (Dextrose) 100 mls @ 200 mls/hr IVPB DAILY NOELLE; Protocol Last Admin: 03/15/18 09:11 Dose: 200 mls/hr Metronidazole (Flagyl 500mg Premixed Ivpb -) 500 mg in 100 mls @ 100 mls/hr IVPB Q8H-IV NOELLE Last Admin: 03/15/18 09:59 Dose: 100 mls/hr Methylprednisolone Sodium Succinate (Solu-Medrol -) 60 mg IVPUSH BID NOELLE Last Admin: 03/15/18 09:59 Dose: 60 mg Mupirocin (Bactroban Ointment (For Decolonization) -) 1 applic NS BID NOELLE Stop: 03/17/18 09:59 Last Admin: 03/14/18 21:02 Dose: 1 applic Trazodone HCl (Desyrel -) 50 mg PO HS NOELLE Last Admin: 03/14/18 22:10 Dose: Not Given CBC,CMP WBC 4.8 K/mm3 (4.0-10.0) 03/15/18 05:30 RBC 3.64 M/mm3 (3.60-5.2) 03/15/18 05:30 Hgb 10.2 GM/dL (10.7-15.3) L 03/15/18 05:30 Hct 31.7 % (32.4-45.2) L 03/15/18 05:30 MCV 86.9 fl (80-96) 03/15/18 05:30 MCH 27.9 pg (25.7-33.7) 03/15/18 05:30 MCHC 32.1 g/dl (32.0-36.0) 03/15/18 05:30 RDW 14.0 % (11.6-15.6) 03/15/18 05:30 Plt Count 204 K/MM3 (134-434) 03/15/18 05:30 MPV 8.6 fl (7.5-11.1) 03/15/18 05:30 Absolute Neuts (auto) 3.4 K/mm3 (1.5-8.0) 03/13/18 05:30 Neutrophils % 82.7 % (42.8-82.8) 03/13/18 05:30 Neutrophils % (Manual) 62.3 % (42.8-82.8) D 03/11/18 06:19 Band Neutrophils % 2.0 % 03/11/18 06:19 Lymphocytes % 14.9 % (8-40) D 03/13/18 05:30 Lymphocytes % (Manual) 27.6 % (8-40) D 03/11/18 06:19 Monocytes % 2.3 % (3.8-10.2) L 03/13/18 05:30 Monocytes % (Manual) 4 % (3.8-10.2) D 03/11/18 06:19 Eosinophils % 0.0 % (0-4.5) D 03/13/18 05:30 Eosinophils % (Manual) 1.0 % (0-4.5) D 03/11/18 06:19 Basophils % 0.1 % (0-2.0) 03/13/18 05:30 Basophils % (Manual) 0.0 % (0-2.0) 03/11/18 06:19 Myelocytes % (Man) 0 % (0-2) 03/11/18 06:19 Promyelocytes % (Man) 0 % (0-2) 03/11/18 06:19 Blast Cells % (Manual) 0 % (0-0) 03/11/18 06:19 Nucleated RBC % 0 % (0-0) 03/13/18 05:30 Metamyelocytes 1 % (0-2) D 03/11/18 06:19 Hypochromia 0 03/11/18 06:19 Platelet Estimate Normal 03/11/18 06:19 Polychromasia 0 03/11/18 06:19 Poikilocytosis 0 03/11/18 06:19 Basophilic Stippling 0 03/11/18 06:19 Anisocytosis 3+ 03/11/18 06:19 Microcytosis 2+ 03/11/18 06:19 Macrocytosis 0 03/11/18 06:19 Tear Drop Cells 0 03/11/18 06:19 Stomatocytes 0 03/11/18 06:19 Sodium 142 mmol/L (136-145) 03/15/18 05:30 Potassium 4.4 mmol/L (3.5-5.1) 03/15/18 05:30 Chloride 100 mmol/L (98-107) 03/15/18 05:30 Carbon Dioxide 35 mmol/L (21-32) H 03/15/18 05:30 Anion Gap 7 MMOL/L (8-16) L 03/15/18 05:30 BUN 16 mg/dL (7-18) 03/15/18 05:30 Creatinine 0.4 mg/dL (0.55-1.02) L 03/15/18 05:30 Creat Clearance w eGFR > 60 (>60) 03/15/18 05:30 POC Glucometer 271.29163 UNITS (80-120) 03/11/18 06:05 Random Glucose 93 mg/dL (74-106) 03/15/18 05:30 Calcium 8.5 mg/dL (8.5-10.1) 03/15/18 05:30 Phosphorus 4.0 mg/dL (2.5-4.9) 03/15/18 05:30 Magnesium 2.2 mg/dL (1.8-2.4) 03/15/18 05:30 Total Bilirubin 0.4 mg/dL (0.2-1.0) 03/15/18 05:30 AST 9 U/L (15-37) L 03/15/18 05:30 ALT 39 U/L (12-78) 03/15/18 05:30 Alkaline Phosphatase 73 U/L (45-117) D 03/15/18 05:30 Total Protein 6.5 g/dl (6.4-8.2) 03/15/18 05:30 Albumin 3.2 g/dl (3.4-5.0) L 03/15/18 05:30 Microbiology 03/11/18 06:45 Blood Culture - Preliminary Blood - Peripheral Venous Staphylococcus Species 03/11/18 06:24 Blood Culture - Preliminary Blood - Peripheral Venous NO GROWTH OBTAINED AFTER 96 HOURS, INCUBATION TO CONTINUE FOR 1 DAYS. Physical Examination Constitutional: Yes: No Distress, Obese. on trach collar . awake. Comfortable. Eyes: Yes: Conjunctiva Clear Neck: Yes: Supple (s/p trach-- vent), Other Cardiovascular: Yes: Regular Rate and Rhythm Respiratory: Yes: Diminished at bases Gastrointestinal: Yes: Soft, Abdomen, Obese--tenderness + ruq. Edema: No Neurological: Yes: Alert Psychiatric: Yes: Alert Assessment/Plan Abx HIDA scan meds reviewed continue meds continue present care discussed with nursing staff will follow Problem List - Problems (1) Respiratory failure Code(s): J96.90 - RESPIRATORY FAILURE, UNSP, UNSP W HYPOXIA OR HYPERCAPNIA (2) Acute on chronic respiratory failure with hypoxia and hypercapnia Code(s): J96.21 - ACUTE AND CHRONIC RESPIRATORY FAILURE WITH HYPOXIA; J96.22 - ACUTE AND CHRONIC RESPIRATORY FAILURE WITH HYPERCAPNIA (3) Bipolar 1 disorder Code(s): F31.9 - BIPOLAR DISORDER, UNSPECIFIED (4) Hypoxia Code(s): R09.02 - HYPOXEMIA (5) Right upper quadrant pain Code(s): R10.11 - RIGHT UPPER QUADRANT PAIN
[2018-03-15] MEDS: BACITRACIN 15 GM TUBE TOPICAL OINTMENT TP SCH (11:56)
[2018-03-15] MEDS: MUPIROCIN 2% TOPICAL OINTMENT FOR DECOLONIZATION NS SCH ×2 (11:56→22:33)
[2018-03-15] MEDS ORDERED: methylPREDNISolone NA SUCC 40 MG/1 ML VIAL IVPUSH SCH (12:00)
--- NOTE | 2018-03-15 13:14 | PN ---
Teaching Attending Note Name of Resident: Vani Freed ATTENDING PHYSICIAN STATEMENT I saw and evaluated the patient. I reviewed the resident's note and discussed the case with the resident. I agree with the resident's findings and plan as documented. SUBJECTIVE: Pt seen and examined in the ICU. Still with RUQ pain. No fevers or chills. Reports more short of breath today, requesting to be placed back on vent. OBJECTIVE: Vital Signs Period Temp Pulse Resp BP Sys/Petersen Pulse Ox Last 24 Hr 98.2 F-98.6 F 40-59 18-28 128-158/74-94 95-100 Intake & Output 03/12/18 03/13/18 03/14/18 03/15/18 23:59 23:59 23:59 23:59 Intake Total 64.1 1150 920 Output Total 1100 2250 3700 400 Balance -1035.9 -1100 -2780 -400 Weight 131.088 kg Gen: tachypneic with speaking Heart: RRR Lung: bilateral rhonchi Abd: soft, nontender Ext: no edema CBC, BMP 03/15/18 05:30 03/15/18 05:30 Active Medications Acetaminophen (Ofirmev Injection -) 1,000 mg IVPB Q6H PRN PRN Reason: PAIN Last Admin: 03/15/18 07:29 Dose: 1,000 mg Albuterol/Ipratropium (Duoneb -) 1 amp NEB RQID NOELLE Last Admin: 03/15/18 11:19 Dose: 1 amp Alprazolam (Xanax -) 0.25 mg PO Q6H PRN PRN Reason: ANXIETY Last Admin: 03/15/18 07:30 Dose: 0.25 mg Bacitracin (Bacitracin -) 1 applic TP DAILY NOELLE Last Admin: 03/15/18 11:56 Dose: 1 applic Chlorhexidine Gluconate (Hibiclens For Decolonization -) 1 applic TP HS NOELLE Last Admin: 03/14/18 22:00 Dose: 1 applic Heparin Sodium (Porcine) (Heparin -) 5,000 unit SQ TID NOELLE Last Admin: 03/15/18 06:22 Dose: 5,000 unit Ceftriaxone Sodium 2 gm/ (Dextrose) 100 mls @ 200 mls/hr IVPB DAILY NOELLE; Protocol Last Admin: 08/27/18 09:11 Dose: 200 mls/hr Metronidazole (Flagyl 500mg Premixed Ivpb -) 500 mg in 100 mls @ 100 mls/hr IVPB Q8H-IV NOELLE Last Admin: 03/15/18 09:59 Dose: 100 mls/hr Methylprednisolone Sodium Succinate (Solu-Medrol -) 40 mg IVPUSH DAILY NOELLE Mupirocin (Bactroban Ointment (For Decolonization) -) 1 applic NS BID NOELLE Stop: 03/17/18 09:59 Last Admin: 03/15/18 11:56 Dose: 1 applic Trazodone HCl (Desyrel -) 50 mg PO HS NOELLE Last Admin: 03/14/18 22:10 Dose: Not Given ASSESSMENT AND PLAN: Acute on Chronic Hypoxic and Hypercapneic Respiratory Failure Acute COPD Exacerbation r/o Pneumonia r/o Cholecystitis LV Diastolic Dysfunction Seizure Disorder Bipolar Disorder - continue empiric antibiotics - for HIDA scan - taper medrol - inhaled bronchodilators standing and PRN - place back on mechanical ventilation - DVT prophylaxis - can monitor on vent floor
--- NOTE | 2018-03-15 14:25 | PN ---
Physical Exam: SUBJECTIVE: Patient seen and examined this AM. Pt has "on and off" fevers and chills, continued SOB, and cough with productive clear sputum, although her SOB and cough have improved since arrival. Pt has been afebrile, with no acute events and vitals have been stable. Pt has been stable on ventilator overnight, using the tracheal cuff during the day. She is draining yellow urine via Pete catheter, and had a normal BM yesterday. Pt denies nausea/vomiting, chest pain, abdominal pain, burning near pete site, joint pain, or leg swelling. OBJECTIVE: Vital Signs Period Temp Pulse Resp BP Sys/Petersen Pulse Ox Last 24 Hr 98.4 F-98.6 F 40-59 18-28 128-158/74-94 95-100 GENERAL: The patient is awake, alert, and fully oriented, in no acute distress. Saturation 96% during exam, vitals stable. HEAD: Normal with no signs of trauma. EYES: PERRL, extraocular movements intact, sclera anicteric, conjunctiva clear. No ptosis. ENT: Nares patent, oropharynx clear without exudates, moist mucous membranes. Trach tube in place, with clear sputum production after coughing. Pt has been suctioned appropriately. NECK: Trachea midline, full range of motion, supple. LUNGS: Breath sounds equal, diminished to auscultation bilaterally (difficult to appreciate given pt body habitus), no wheezes, no crackles. Can take full breaths without accessory muscle use. HEART: Regular rate (HR 60 on exam) and rhythm, S1, S2 without murmur, rub or gallop. ABDOMEN: Tender to palpation over RUQ. Soft, protuberant abdomen, with normoactive bowel sounds, no guarding, no rebound, no hepatosplenomegaly, no masses. EXTREMITIES: 2+ pulses, warm, well-perfused, no edema. NEUROLOGICAL: Cranial nerves II through XII grossly intact. Normal speech, gait not observed. PSYCH: Normal mood, normal affect. SKIN: Warm, dry, normal turgor/no skin tenting, no rashes or lesions noted. I/O: 920/400 via pete cath -- yellow urine, no hematuria appreciated. Vent settings: AC, TV 350, RR 16, FiO2 50%, PEEP 5 Laboratory Results - last 24 hr 03/15/18 03/15/18 05:30 05:30 WBC 4.8 RBC 3.64 Hgb 10.2 L Hct 31.7 L MCV 86.9 MCH 27.9 MCHC 32.1 RDW 14.0 Plt Count 204 MPV 8.6 Sodium 142 Potassium 4.4 Chloride 100 Carbon Dioxide 35 H Anion Gap 7 L BUN 16 Creatinine 0.4 L Creat Clearance w eGFR > 60 Random Glucose 93 Calcium 8.5 Phosphorus 4.0 Magnesium 2.2 Total Bilirubin 0.4 AST 9 L ALT 39 Alkaline Phosphatase 73 D Total Protein 6.5 Albumin 3.2 L Active Medications Generic Name Dose Route Start Last Admin Trade Name Freq PRN Reason Stop Dose Admin Acetaminophen 1,000 mg 03/14/18 20:39 03/15/18 07:29 Ofirmev Injection - IVPB 1,000 mg Q6H PRN Administration PAIN Albuterol/Ipratropium 1 amp 03/11/18 12:00 03/15/18 11:19 Duoneb - NEB 1 amp RQID NOELLE Administration Alprazolam 0.25 mg 03/12/18 15:47 03/15/18 13:54 Xanax - PO 0.25 mg Q6H PRN Administration ANXIETY Bacitracin 1 applic 03/12/18 23:30 03/15/18 11:56 Bacitracin - TP 1 applic DAILY NOELLE Administration Chlorhexidine Gluconate 1 applic 03/12/18 22:00 03/14/18 22:00 Hibiclens For Decolonization - TP 1 applic HS NOELLE Administration Heparin Sodium (Porcine) 5,000 unit 03/11/18 14:00 03/15/18 13:53 Heparin - SQ 5,000 unit TID NOELLE Administration Ceftriaxone Sodium 2 gm/ 100 mls @ 200 mls/hr 03/11/18 13:45 03/15/18 09:11 Dextrose IVPB 200 mls/hr DAILY NOELLE Administration Protocol Metronidazole 500 mg in 100 mls @ 100 mls/hr 03/12/18 18:00 03/15/18 09:59 Flagyl 500mg Premixed Ivpb - IVPB 100 mls/hr Q8H-IV [facility] Administration Methylprednisolone Sodium Succinate 40 mg 03/15/18 12:00 03/15/18 13:40 Solu-Medrol - IVPUSH Not Given DAILY [facility] Mupirocin 1 applic 03/12/18 10:00 03/15/18 11:56 Bactroban Ointment (For Decolonization) - NS 03/17/18 09:59 1 applic BID NOELLE Administration Trazodone HCl 50 mg 03/12/18 23:30 03/14/18 22:10 Desyrel - PO Not Given HS [facility] ASSESSMENT/PLAN: 53 yo F, with PMH of diastolic CHF, chronic hypercapnia, hypoxic resp failure, COPD, sz, bipolar disorder, and trach tube, presents with acute on chronic hypoxic and hypercapnic RF 2/2 to pneumonia. She also has RUQ abdominal pain possibly 2/2 to acute acalculous cholecystitis. 1. Neuro Bipolar and sz disorders - pt continuing home meds of xanax and trazodone. 2. Cardio LV diastolic dysfunction - no acute issues or pitting edema 3. Respiratory COPD and acute on chronic resp failure - continue Duonebs, pt has improved since ENT replaced trach tube Reduce Solumedrol from 60 mg BID to 40 mg QDay Sputum cultures grew Strep Group G - being treated with 2 g Rocephin Qday (Day 5 ) and 500 mg Flagyl (Day 4) 4. GI RUQ pain - CT showed no cholelithiasis, possibly acalculous. Attempted HIDA scan today, but pt cannot lie flat for exam. MRCP another option as suggested by Dr. Schwab (pt not ideal candidate for surgery comorbidities) 5. PUBLIC HEALTH ADVISOR/ Leiomyoma - f/u outpatient with PUBLIC HEALTH ADVISOR 6. Prophylaxis Heparin 5000 u SQ TID. DISPO: Pt transferred to med/surg unit today. Problem List - Problems (1) Acalculous cholecystitis Code(s): K81.9 - CHOLECYSTITIS, UNSPECIFIED (2) Respiratory failure Code(s): J96.90 - RESPIRATORY FAILURE, UNSP, UNSP W HYPOXIA OR HYPERCAPNIA (3) Right upper quadrant pain Code(s): R10.11 - RIGHT UPPER QUADRANT PAIN (4) Acute on chronic respiratory failure with hypoxia and hypercapnia Code(s): J96.21 - ACUTE AND CHRONIC RESPIRATORY FAILURE WITH HYPOXIA; J96.22 - ACUTE AND CHRONIC RESPIRATORY FAILURE WITH HYPERCAPNIA (5) Acute respiratory failure Code(s): J96.00 - ACUTE RESPIRATORY FAILURE, UNSP W HYPOXIA OR HYPERCAPNIA Qualifiers: Respiratory failure complication: hypoxia Qualified Code(s): J96.01 - Acute respiratory failure with hypoxia (6) Bipolar 1 disorder Code(s): F31.9 - BIPOLAR DISORDER, UNSPECIFIED (7) CHF (congestive heart failure) Code(s): I50.9 - HEART FAILURE, UNSPECIFIED Visit type - Emergency Visit Emergency Visit: Yes ED Registration Date: 03/11/18 Care time: The patient presented to the Emergency Department on the above date and was hospitalized for further evaluation of their emergent condition. - New Patient This patient is new to me today: Yes Date on this admission: 03/15/18 - Critical Care Critical Care patient: Yes Total Critical Care Time (in minutes): 30 Critical Care Statement: The care of this patient involved high complexity decision making to prevent further life threatening deterioration of the patient 's condition and/or to evaluate & treat vital organ system(s) failure or risk of failure. - Discharge Referral Referred to [facility] Yes
[2018-03-15] MEDS: ESCITALOPRAM OXALATE 20 MG TABLET (FP) PO SCH (22:17)
[2018-03-15] MEDS: ATORVASTATIN CA 20 MG TABLET (FP) PO SCH (22:18)
[2018-03-15] MEDS: hydrOXYzine HCL 10 MG TABLET PO SCH (22:24)
[2018-03-15] MEDS: ARIPiprazole 5 MG TABLET (FP) PO SCH (22:24)
[2018-03-15] MEDS: CHLORHEXIDINE GLUCONATE 4% CLEANSER FOR DECOLONIZATION TP SCH (22:33)
[2018-03-15] MEDS: traZODone HCL 50 MG TABLET (FP) PO SCH (22:48)
[2018-03-15] MEDS ORDERED: ACETAMINOPHEN 1000 MG/100 ML VIAL (NON FORMULARY) IVPB PRN (23:35)
--- NOTE | 2018-03-16 00:48 | PN ---
Progress Note, Physician Chief Complaint: RUQ abdominal pain History of Present Illness: 53 yo female PMH COPD, asthma, CHF, obesity, seizure disorder, bipolar disorder and hypercapnia who presents to the emergency department via EMS with respiratory distress from [facility]. stable overnight, reports some improvement of pain. - Current Medication List Current Medications: Active Medications Acetaminophen (Ofirmev Injection -) 1,000 mg IVPB Q6H PRN PRN Reason: PAIN Albuterol/Ipratropium (Duoneb -) 1 amp NEB RQID [facility] Aripiprazole (Abilify) 5 mg PO DAILY [facility] Last Admin: 03/15/18 22:24 Dose: 5 mg Atorvastatin Calcium (Lipitor -) 20 mg PO HS [facility] Last Admin: 03/15/18 22:18 Dose: 20 mg Bacitracin (Bacitracin -) 1 applic TP DAILY [facility] Escitalopram Oxalate (Lexapro -) 20 mg PO DAILY [facility] Last Admin: 03/15/18 22:17 Dose: 20 mg Furosemide (Lasix -) 20 mg PO DAILY [facility] Heparin Sodium (Porcine) (Heparin -) 5,000 unit SQ TID [facility] Hydroxyzine HCl (Atarax -) 10 mg PO TID [facility] Last Admin: 03/15/18 22:24 Dose: 10 mg Ceftriaxone Sodium 2 gm/ (Dextrose) 100 mls @ 200 mls/hr IVPB DAILY [facility]; Protocol Metronidazole (Flagyl 500mg Premixed Ivpb -) 500 mg in 100 mls @ 100 mls/hr IVPB Q8H-IV [facility] Methylprednisolone Sodium Succinate (Solu-Medrol -) 40 mg IVPUSH DAILY [facility] Trazodone HCl (Desyrel -) 50 mg PO HS [facility] - Objective Vital Signs: Vital Signs Temperature 98.1 F 03/15/18 23:49 Pulse Rate 51 L 03/15/18 23:49 Respiratory Rate 23 03/15/18 23:49 Blood Pressure 148/85 03/15/18 23:49 O2 Sat by Pulse Oximetry (%) 100 03/15/18 21:00 Vital Signs Period Temp Pulse Resp BP Sys/Petersen Pulse Ox Last 24 Hr 98.0 F-98.6 F 40-59 16-29 130-158/74-94 95-100 Constitutional: Yes: Well Nourished, No Distress, Calm, Obese Eyes: Yes: Conjunctiva Clear, EOM Intact HENT: Yes: Atraumatic, Normocephalic, Other (alopecia) Neck: Yes: Supple, Trachea Midline Cardiovascular: Yes: Regular Rate and Rhythm, S1, S2 Respiratory: Yes: Regular, CTA Bilaterally Gastrointestinal: Yes: Normal Bowel Sounds, Soft, Abdomen, Obese. No: Tenderness, Tenderness, Epigastrium, Tenderness, Rebound ...Rectal Exam: No: Deferred Genitourinary: No: CVA Tenderness - Left, CVA Tenderness - Right Musculoskeletal: No: Muscle Pain, Muscle Weakness Extremities: Yes: Cool, Cyanosis Edema: No Peripheral Pulses WNL: Yes Peripheral Pulses: Left Radial: 2+, Right Radial: 2+, Left Doralis Pedis: 2+, Right Dorsalis Pedis: 2+ Neurological: Yes: Alert, Oriented Psychiatric: Yes: Alert, Oriented Labs: CBC, BMP 03/15/18 05:30 03/15/18 05:30 INR, PTT INR 1.04 (0.83-1.09) 03/11/18 06:23 Problem List - Problems (1) Acalculous cholecystitis Assessment/Plan: 53yo female MMP incluiding obesity and polycythemia vera present with complaints of RUQ pain and conistent changes on ultrasound. CBD 0.7 enlarged. Not and ideal operative candidate given comorbities. HIDA could not be done because the patient was not able to lay flat for an enxtended period. This was discussed with Dr. Field. Will continue to monitor clinically for worsening. If worsening consider cholecystostyomy placement. Resume and advance diet as tolerated IVF hydration IV antibiotics trend labs Recall surgery as needed Code(s): K81.9 - CHOLECYSTITIS, UNSPECIFIED (2) Right upper quadrant pain Code(s): R10.11 - RIGHT UPPER QUADRANT PAIN (3) Acute on chronic respiratory failure with hypoxia and hypercapnia Code(s): J96.21 - ACUTE AND CHRONIC RESPIRATORY FAILURE WITH HYPOXIA; J96.22 - ACUTE AND CHRONIC RESPIRATORY FAILURE WITH HYPERCAPNIA (4) CHF (congestive heart failure) Code(s): I50.9 - HEART FAILURE, UNSPECIFIED (5) COPD exacerbation Code(s): J44.1 - CHRONIC OBSTRUCTIVE PULMONARY DISEASE W (ACUTE) EXACERBATION (6) Morbid obesity Code(s): E66.01 - MORBID (SEVERE) OBESITY DUE TO EXCESS CALORIES (7) Polycythemia Code(s): D75.1 - SECONDARY POLYCYTHEMIA (8) Tracheostomy dependence Code(s): Z93.0 - TRACHEOSTOMY STATUS
[2018-03-16] MEDS: hydrOXYzine HCL 10 MG TABLET PO SCH ×3 (06:08→21:30)
[2018-03-16] MEDS: HEPARIN NA (PORCINE) 5,000 UNITS/ML 1ML VIAL SQ SCH ×3 (06:08→21:29)
[2018-03-16] MEDS ORDERED: PT OWN MED DRAWER 7, Y5N ONE ×4 (06:32→20:45)
[2018-03-16] MEDS: ALBUTEROL SO4 2.5/IPRATROPIUM 0.5 INH SOL 3 ML VIAL.NEB. NEB SCH ×4 (07:35→20:50)
[2018-03-16 08:28] LABS: BASO % 0.1 % (0-2.0); EOS % 0.2 % (0-4.5); HEMATOCRIT 32.2 % (32.4-45.2); HEMOGLOBIN 10.3 GM/dL (10.7-15.3); LYMPH % 27.5 % (8-40); MCH 27.6 pg (25.7-33.7); MEAN CELL VOLUME 86.2 fl (80-96); MEAN PLT VOLUME 8.1 fl (7.5-11.1); MONO % 5.6 % (3.8-10.2); NEUT % 66.6 % (42.8-82.8); PLATELET COUNT 189 K/MM3 (134-434); RBC 3.74 M/mm3 (3.60-5.2); RDW 13.7 % (11.6-15.6); WHITE BLOOD COUNT 5.6 K/mm3 (4.0-10.0)
[2018-03-16 09:27] LABS: CHLORIDE 102 mmol/L (98-107); POTASSIUM 3.8 mmol/L (3.5-5.1); SODIUM 144 mmol/L (136-145)
[2018-03-16 09:36] LABS: ALBUMIN 3.1 g/dl (3.4-5.0); ALK PHOS 66 U/L (45-117); ANION GAP 9 MMOL/L (8-16); BILIRUBIN,TOTAL 0.5 mg/dL (0.2-1.0); BLOOD UREA NITROGEN 14 mg/dL (7-18); CALCIUM 8.5 mg/dL (8.5-10.1); CO2 33 mmol/L (21-32); CREATININE 0.4 mg/dL (0.55-1.02); GLUCOSE,RANDOM 70 mg/dL (74-106); SGOT/AST 8 U/L (15-37); SGPT/ALT 34 U/L (12-78); TOT PROT 5.9 g/dl (6.4-8.2)
[2018-03-16] MEDS ORDERED: MUPIROCIN 2% TOPICAL OINTMENT FOR DECOLONIZATION NS SCH (10:00)
[2018-03-16] MEDS ORDERED: DEXTROSE 5%-WATER 100 ML IVPB ONE (10:28)
[2018-03-16] MEDS: ESCITALOPRAM OXALATE 20 MG TABLET (FP) PO SCH (10:37)
[2018-03-16] MEDS: FUROSEMIDE 20 MG TABLET (FP) PO SCH (10:37)
[2018-03-16] MEDS: ARIPiprazole 5 MG TABLET (FP) PO SCH (10:37)
[2018-03-16] MEDS: methylPREDNISolone NA SUCC 40 MG/1 ML VIAL IVPUSH SCH (10:38)
[2018-03-16] MEDS: BACITRACIN 15 GM TUBE TOPICAL OINTMENT TP SCH (10:38)
[2018-03-16] MEDS: CEFTRIAXONE 2 GM in DEXTROSE 5%-WATER 100 ML IVPB SCH (10:38)
--- NOTE | 2018-03-16 11:02 | PN ---
Progress Note (short form) - Note Progress Note: pt seen/ examined comfortable could not do HIDA scan Says pain better wants to eat surgical f/u noted afebrile wants ear drops for wax Vital Signs Temp 97.7 F 03/16/18 10:00 Pulse 58 L 03/16/18 10:00 Resp 22 03/16/18 10:00 BP 150/74 03/16/18 10:00 Pulse Ox 96 03/16/18 09:30 Intake & Output 03/15/18 03/15/18 03/16/18 11:59 23:59 11:59 Intake Total 350 0 Output Total 400 2400 350 Balance -400 -2050 -350 Intake: IVPB 350 0 Output: Urine 400 2400 350 Carroll 400 2400 350 Other: Voiding Method Indwelling Catheter Indwelling Catheter Diaper Bowel Movement No Yes Active Medications Acetaminophen (Ofirmev Injection -) 1,000 mg IVPB Q6H PRN PRN Reason: PAIN Albuterol/Ipratropium (Duoneb -) 1 amp NEB RQID [facility] Last Admin: 03/16/18 07:35 Dose: 1 amp Aripiprazole (Abilify) 5 mg PO DAILY [facility] Last Admin: 03/16/18 10:37 Dose: 5 mg Atorvastatin Calcium (Lipitor -) 20 mg PO HS [facility] Last Admin: 03/15/18 22:18 Dose: 20 mg Bacitracin (Bacitracin -) 1 applic TP DAILY [facility] Last Admin: 03/16/18 10:38 Dose: 1 applic Carbamide Perox/Anhydrous Glycerin (Debrox -) 5 drop AD BID [facility] Escitalopram Oxalate (Lexapro -) 20 mg PO DAILY [facility] Last Admin: 03/16/18 10:37 Dose: 20 mg Furosemide (Lasix -) 20 mg PO DAILY [facility] Last Admin: 03/16/18 10:37 Dose: 20 mg Heparin Sodium (Porcine) (Heparin -) 5,000 unit SQ TID [facility] Last Admin: 03/16/18 06:08 Dose: 5,000 unit Hydroxyzine HCl (Atarax -) 10 mg PO TID [facility] Last Admin: 03/16/18 06:08 Dose: 10 mg Ceftriaxone Sodium 2 gm/ (Dextrose) 100 mls @ 200 mls/hr IVPB DAILY [facility]; Protocol Last Admin: 03/16/18 10:38 Dose: 200 mls/hr Metronidazole (Flagyl 500mg Premixed Ivpb -) 500 mg in 100 mls @ 100 mls/hr IVPB Q8H-IV [facility] Last Admin: 03/16/18 01:57 Dose: 100 mls/hr Methylprednisolone Sodium Succinate (Solu-Medrol -) 40 mg IVPUSH DAILY [facility] Last Admin: 03/16/18 10:38 Dose: 40 mg Trazodone HCl (Desyrel -) 50 mg PO HS [facility] CBC, BMP 03/16/18 06:20 03/16/18 06:20 Microbiology 03/11/18 06:24 Blood Culture - Final Blood - Peripheral Venous NO GROWTH AFTER 5 DAYS INCUBATION 03/11/18 15:00 Gram Stain - Final Sputum - Endotrachea Suction/Ventilator Sputum Culture - Final Beta Hem Streptococcus Group G 03/11/18 06:45 Blood Culture - Preliminary Blood - Peripheral Venous Staphylococcus Species Hepatic Panel Total Bilirubin 0.5 mg/dL (0.2-1.0) 03/16/18 06:20 AST 8 U/L (15-37) L 03/16/18 06:20 ALT 34 U/L (12-78) 03/16/18 06:20 Alkaline Phosphatase 66 U/L (45-117) 03/16/18 06:20 Albumin 3.1 g/dl (3.4-5.0) L 03/16/18 06:20 Physical Examination Constitutional: Yes: No Distress, Obese. on trach collar . awake. Comfortable. Eyes: Yes: Conjunctiva Clear Neck: Yes: Supple (s/p trach-- vent), Other Cardiovascular: Yes: Regular Rate and Rhythm Respiratory: Yes: Diminished at bases Gastrointestinal: Yes: Soft, Abdomen, Obese--non tender Edema: No Neurological: Yes: Alert Psychiatric: Yes: Alert Assessment/Plan Abx advance diet to full liquid meds reviewed continue meds continue present care discussed with nursing staff will follow Problem List - Problems (1) Respiratory failure Code(s): J96.90 - RESPIRATORY FAILURE, UNSP, UNSP W HYPOXIA OR HYPERCAPNIA (2) Acute on chronic respiratory failure with hypoxia and hypercapnia Code(s): J96.21 - ACUTE AND CHRONIC RESPIRATORY FAILURE WITH HYPOXIA; J96.22 - ACUTE AND CHRONIC RESPIRATORY FAILURE WITH HYPERCAPNIA (3) Bipolar 1 disorder Code(s): F31.9 - BIPOLAR DISORDER, UNSPECIFIED (4) Hypoxia Code(s): R09.02 - HYPOXEMIA (5) Right upper quadrant pain Code(s): R10.11 - RIGHT UPPER QUADRANT PAIN
--- NOTE | 2018-03-16 12:55 | PN ---
Progress Note, Physician History of Present Illness: pulmonary alert,on vent support nad,eating. - Current Medication List Current Medications: Active Medications Acetaminophen (Ofirmev Injection -) 1,000 mg IVPB Q6H PRN PRN Reason: PAIN Albuterol/Ipratropium (Duoneb -) 1 amp NEB RQID [facility] Last Admin: 03/16/18 07:35 Dose: 1 amp Aripiprazole (Abilify) 5 mg PO DAILY [facility] Last Admin: 03/16/18 10:37 Dose: 5 mg Atorvastatin Calcium (Lipitor -) 20 mg PO HS [facility] Last Admin: 03/15/18 22:18 Dose: 20 mg Bacitracin (Bacitracin -) 1 applic TP DAILY [facility] Last Admin: 03/16/18 10:38 Dose: 1 applic Carbamide Perox/Anhydrous Glycerin (Debrox -) 5 drop AD BID [facility] Escitalopram Oxalate (Lexapro -) 20 mg PO DAILY [facility] Last Admin: 03/16/18 10:37 Dose: 20 mg Furosemide (Lasix -) 20 mg PO DAILY [facility] Last Admin: 03/16/18 10:37 Dose: 20 mg Heparin Sodium (Porcine) (Heparin -) 5,000 unit SQ TID [facility] Last Admin: 03/16/18 06:08 Dose: 5,000 unit Hydroxyzine HCl (Atarax -) 10 mg PO TID [facility] Last Admin: 03/16/18 06:08 Dose: 10 mg Ceftriaxone Sodium 2 gm/ (Dextrose) 100 mls @ 200 mls/hr IVPB DAILY [facility]; Protocol Last Admin: 03/16/18 10:38 Dose: 200 mls/hr Metronidazole (Flagyl 500mg Premixed Ivpb -) 500 mg in 100 mls @ 100 mls/hr IVPB Q8H-IV [facility] Last Admin: 03/16/18 11:09 Dose: 100 mls/hr Methylprednisolone Sodium Succinate (Solu-Medrol -) 40 mg IVPUSH DAILY [facility] Last Admin: 03/16/18 10:38 Dose: 40 mg Trazodone HCl (Desyrel -) 50 mg PO HS [facility] - Objective Vital Signs: Vital Signs Temperature 97.7 F 03/16/18 10:00 Pulse Rate 58 L 03/16/18 10:00 Respiratory Rate 22 03/16/18 10:00 Blood Pressure 150/74 03/16/18 10:00 O2 Sat by Pulse Oximetry (%) 96 03/16/18 09:30 Constitutional: Yes: Well Nourished, Calm, Obese Eyes: Yes: WNL HENT: Yes: WNL Neck: Yes: Supple (trach) Cardiovascular: Yes: Regular Rate and Rhythm, S1, S2 Respiratory: Yes: Rhonchi (few rhonchi) Gastrointestinal: Yes: Normal Bowel Sounds, Soft Extremities: Yes: WNL Edema: No Labs: CBC, BMP 03/16/18 06:20 03/16/18 06:20 INR, PTT INR 1.04 (0.83-1.09) 03/11/18 06:23 Problem List - Problems (1) Respiratory failure Code(s): J96.90 - RESPIRATORY FAILURE, UNSP, UNSP W HYPOXIA OR HYPERCAPNIA (2) Acute on chronic respiratory failure with hypoxia and hypercapnia Code(s): J96.21 - ACUTE AND CHRONIC RESPIRATORY FAILURE WITH HYPOXIA; J96.22 - ACUTE AND CHRONIC RESPIRATORY FAILURE WITH HYPERCAPNIA (3) Bipolar 1 disorder Code(s): F31.9 - BIPOLAR DISORDER, UNSPECIFIED (4) COPD exacerbation Code(s): J44.1 - CHRONIC OBSTRUCTIVE PULMONARY DISEASE W (ACUTE) EXACERBATION (5) Diabetes Code(s): E11.9 - TYPE 2 DIABETES MELLITUS WITHOUT COMPLICATIONS (6) Morbid (severe) obesity due to excess calories Code(s): E66.01 - MORBID (SEVERE) OBESITY DUE TO EXCESS CALORIES (7) Right upper quadrant pain Code(s): R10.11 - RIGHT UPPER QUADRANT PAIN Assessment/Plan ASSESSMENT AND PLAN: Acute on Chronic Hypoxic and Hypercapneic Respiratory Failure Acute COPD Exacerbation r/o Pneumonia r/o Cholecystitis LV Diastolic Dysfunction Seizure Disorder Bipolar Disorder - continue empiric antibiotics - for HIDA scan - taper medrol - inhaled bronchodilators standing and PRN - place back on mechanical ventilation - DVT prophylaxis DR STEELE
[2018-03-16] MEDS: ALPRAZolam 0.25 MG TABLET PO PRN (13:16)
[2018-03-16] MEDS: CARBAMIDE PEROXIDE 6.5% OTIC 15 ML BOTTLE AD SCH ×2 (14:37→21:31)
--- NOTE | 2018-03-16 15:52 | CON.OBG ---
Consult Consult Specialty:: VACUUM CLOSING MACHINE OPERATOR Reason for Consultation:: Leiomyoma of the uterus - History of Present Illness History of Present Illness: 53yo female with h/o chronic hypoxic and hypercapneic respiratory failure s/p tracheostomy, COPD,Morbid obesity, , seizure disorder, bipolar disorder who was admitted with respiratory distress. Trach not functioning in the ER, removed and 6.0 ETT placed into stoma after failed orotracheal intubation due to possible obstruction. VACUUM CLOSING MACHINE OPERATOR consulted due to evidence of an enlarged myomatous uterus consistent with 14cm. Patient denies any vaginal bleeding nor pelvic pain. Her last menstrual period was at 40 years old. - History Source History Provided By: Patient Limitations to Obtaining History: Other (Morbid obesity) - Past Medical History Pulmonary: Yes: COPD Gastrointestinal: Yes: Other (colon polyps) ...: 0 ...Para: 0 Psych: Yes: Bipolar Endocrine: Yes: Diabetes Mellitus - Past Surgical History Additional Surgical History: Trach - Alcohol/Substance Use Hx Alcohol Use: No History of Substance Use: reports: Marijuana - Smoking History Smoking history: Former smoker Have you smoked in the past 12 months: No Aproximately how many cigarettes per day: 5 If you are a former smoker, when did you quit?: 2013 - Social History Usual Living Arrangement: Halfway ADL: Support Services Occupation: disabled History of Recent Travel: No Home Medications - Allergies Allergies/Adverse Reactions: Allergies Allergy/AdvReac Type Severity Reaction Status Date / Time No Known Allergies Allergy Unverified 03/11/18 06:28 - Home Medications Home Medications: Ambulatory Orders Acetaminophen 650 mg PO DAILY 10/18/17 Albuterol Sulfate [Proair Respiclick] 90 mcg IH TID 10/18/17 Aripiprazole 5 mg PO DAILY 10/18/17 Aspirin 81 mg PO DAILY 10/18/17 Ergocalciferol (Vitamin D2) [Vitamin D2] 50,000 unit PO WEEKLY 10/18/17 Furosemide [Lasix -] 20 mg PO DAILY 10/18/17 Heparin Sod,Porcine/0.9 % NaCl [Heparin 5,000 Unit/1,000 ml-Ns] 5,000 unit SCJ BID 10/18/17 Insulin Lispro [Humalog] 0 unit SQ ASDIR 10/18/17 Lactobacillus Acidophilus [Acidophilus] 1 each PO BID 10/18/17 Levothyroxine [Synthroid -] 25 mcg PO DAILY 10/18/17 Mirtazapine 15 mg PO DAILY 10/18/17 traZODone HCL [Trazodone HCl] 50 mg PO DAILY 10/18/17 Sennosides [Senna -] 2 tab PO HS tablet 01/18/18 Atorvastatin Ca [Lipitor] 20 mg PO HS 01/24/18 Budesonide/Formeterol Fumarate [SYMBICORT 160/4.5mcg -] 1 inh PO BID 01/24/18 Clotrimazole/Betamet Diprop [Lotrisone -] 1 applic TP BID 01/24/18 Docusate Sodium [Colace] 100 mg PO DAILY 01/24/18 Escitalopram Oxalate [Lexapro -] 20 mg PO DAILY 01/24/18 Magnesium Hydroxide [Milk of Magnesia] 400 mg PO ASDIR PRN 01/24/18 Polyethylene Glycol 3350 [Gavilax] 17 gm PO DAILY 01/24/18 Vit A/Vitamin D3/E/Aloe V/Zinc [Periguard Ointment] 100 gm TP BID 01/24/18 hydrOXYzine HCL [Atarax -] 10 mg PO TID 01/24/18 Alprazolam [Xanax] 0.25 mg PO Q8H PRN #30 tablet MDD 3 02/03/18 Guaifenesin/D-Methorphan Hb [Diabetic Tussin Dm -] 10 ml PO Q4H PRN ml Family Disease History - Family Disease History Family History: Unremarkable Family Disease History: Other: Father (: PNA), Mother (: COPD ) Other Family History: No family history of colorectal cancer or other GI malignancy Review of Systems - Review of Systems Constitutional: reports: Other (Obesity) Eyes: reports: No Symptoms HENT: reports: No Symptoms Neck: reports: No Symptoms Cardiovascular: reports: No Symptoms Respiratory: reports: SOB on Exertion Gastrointestinal: reports: Other (Right upper quadrant pain) Genitourinary: reports: No Symptoms Breasts: reports: No Symptoms Reported Musculoskeletal: reports: No Symptoms Neurological: reports: No Symptoms Psychiatric: reports: No Symptoms Pain Intensity: 5 Physical Exam-VACUUM CLOSING MACHINE OPERATOR Vital Signs: Vital Signs Temperature 98.3 F 03/16/18 14:38 Pulse Rate 48 L 03/16/18 14:38 Respiratory Rate 24 08/28/18 14:38 Blood Pressure 135/75 08/28/18 14:38 O2 Sat by Pulse Oximetry (%) 96 03/16/18 09:30 Constitutional: Yes: Poor Hygeine Eyes: Yes: WNL HENT: Yes: Atraumatic Neck: Yes: Other (Tracheotomy tube in place) Cardiovascular: Yes: Regular Rate and Rhythm Gastrointestinal: Yes: Normal Bowel Sounds Pelvis: Yes: Other (Patient refuses examination) Breast(s): Yes: WNL Neurological: Yes: Alert, Oriented ...Motor Strength: WNL Psychiatric: Yes: Alert, Oriented Labs: CBC, BMP 03/16/18 06:20 03/16/18 06:20 Problem List - Problems (1) Leiomyoma of body of uterus Code(s): D25.9 - LEIOMYOMA OF UTERUS, UNSPECIFIED (2) Obesity (BMI 30-39.9) Code(s): E66.9 - OBESITY, UNSPECIFIED Assessment/Plan Morbid obesity Respiratory symptoms Leiomyoma of the uterus Consider transvaginal sonogram Patient is asymptomatic, no intervention is required at this time. Patient advised to see VACUUM CLOSING MACHINE OPERATOR as outpatient.
[2018-03-16] MEDS: ATORVASTATIN CA 20 MG TABLET (FP) PO SCH (21:30)
[2018-03-16] MEDS: traZODone HCL 50 MG TABLET (FP) PO SCH (21:30)
[2018-03-16] MEDS ORDERED: CHLORHEXIDINE GLUCONATE 4% CLEANSER FOR DECOLONIZATION TP SCH (22:00)
[2018-03-17] MEDS ORDERED: ACETAMINOPHEN 325 MG TABLET (FP) PO ONE (03:05)
[2018-03-17] MEDS: hydrOXYzine HCL 10 MG TABLET PO SCH ×3 (05:50→22:11)
[2018-03-17] MEDS: HEPARIN NA (PORCINE) 5,000 UNITS/ML 1ML VIAL SQ SCH ×3 (05:50→22:11)
[2018-03-17] MEDS: ALBUTEROL SO4 2.5/IPRATROPIUM 0.5 INH SOL 3 ML VIAL.NEB. NEB SCH ×4 (08:00→20:39)
--- NOTE | 2018-03-17 10:14 | PN ---
Progress Note (short form) - Note Progress Note: alert c/o RUQ pain-persistent Vital Signs Period Temp Pulse Resp BP Sys/Petersen Pulse Ox Last 24 Hr 98.2 F-99.8 F 45-55 18-24 117-140/63-89 100-100 cor-rrr lungs clear abd soft, still reports ruq to palpation ext no edema trach to vent CBC, BMP 03/16/18 06:20 03/16/18 06:20 ct scans noted- lung finding improved, especially right lung compared to prior scan, enlarged leiomyoma a/p ruq pain ?biliary continue rocephin/flagyl day #7 GI and surgery f/u chronic resp failure- ct scan not convincing for acute pneumonia +blood culture- 07/23 bottles- staph spp- suspect contaminant enlarged leiomyoma- consider gyne evaluation morbid obesity Problem List - Problems (1) Pneumonia Code(s): J18.9 - PNEUMONIA, UNSPECIFIED ORGANISM Qualifiers: Pneumonia type: due to unspecified organism Laterality: unspecified laterality Lung location: unspecified part of lung Qualified Code(s): J18.9 - Pneumonia, unspecified organism (2) Respiratory failure Code(s): J96.90 - RESPIRATORY FAILURE, UNSP, UNSP W HYPOXIA OR HYPERCAPNIA (3) Tracheostomy dependence Code(s): Z93.0 - TRACHEOSTOMY STATUS (4) Morbid obesity Code(s): E66.01 - MORBID (SEVERE) OBESITY DUE TO EXCESS CALORIES
--- NOTE | 2018-03-17 10:44 | PN ---
Progress Note (short form) - Note Progress Note: Alert and awake. complains of right upper quadrant pain--- worse with movement and no fever or chills Tolerating a liquid diet LFTs normal. nontoxic appearance Vital Signs Temp 98.2 F 03/17/18 05:50 Pulse 47 L 03/17/18 05:50 Resp 19 03/17/18 05:50 BP 133/72 03/17/18 05:50 Pulse Ox 100 03/16/18 21:25 Intake & Output 03/16/18 03/16/18 03/17/18 11:59 23:59 11:59 Intake Total 450 785 100 Output Total 350 Balance 100 785 100 Intake: IVPB 150 100 100 Oral 300 685 Output: Urine 350 Carroll 350 Other: Voiding Method Diaper Incontinent Incontinent # Unmeasured Voids Void 4 2 Bowel Movement Yes Yes # Bowel Movements 1 Active Medications Albuterol/Ipratropium (Duoneb -) 1 amp NEB RQID [facility] Last Admin: 03/17/18 08:00 Dose: 1 amp Alprazolam (Xanax -) 0.25 mg PO Q6H PRN PRN Reason: ANXIETY Last Admin: 03/16/18 13:16 Dose: 0.25 mg Aripiprazole (Abilify) 5 mg PO DAILY [facility] Last Admin: 03/16/18 10:37 Dose: 5 mg Atorvastatin Calcium (Lipitor -) 20 mg PO HS [facility] Last Admin: 03/16/18 21:30 Dose: 20 mg Bacitracin (Bacitracin -) 1 applic TP DAILY [facility] Last Admin: 03/16/18 10:38 Dose: 1 applic Carbamide Perox/Anhydrous Glycerin (Debrox -) 5 drop AD BID [facility] Last Admin: 03/16/18 21:31 Dose: 5 drop Escitalopram Oxalate (Lexapro -) 20 mg PO DAILY [facility] Last Admin: 03/16/18 10:37 Dose: 20 mg Furosemide (Lasix -) 20 mg PO DAILY [facility] Last Admin: 03/16/18 10:37 Dose: 20 mg Heparin Sodium (Porcine) (Heparin -) 5,000 unit SQ TID [facility] Last Admin: 03/17/18 05:50 Dose: 5,000 unit Hydroxyzine HCl (Atarax -) 10 mg PO TID [facility] Last Admin: 03/17/18 05:50 Dose: 10 mg Ceftriaxone Sodium 2 gm/ (Dextrose) 100 mls @ 200 mls/hr IVPB DAILY [facility]; Protocol Last Admin: 03/16/18 10:38 Dose: 200 mls/hr Metronidazole (Flagyl 500mg Premixed Ivpb -) 500 mg in 100 mls @ 100 mls/hr IVPB Q8H-IV [facility] Last Admin: 03/17/18 02:53 Dose: 100 mls/hr Methylprednisolone Sodium Succinate (Solu-Medrol -) 40 mg IVPUSH DAILY [facility] Last Admin: 03/16/18 10:38 Dose: 40 mg Trazodone HCl (Desyrel -) 50 mg PO HS [facility] Last Admin: 03/16/18 21:30 Dose: 50 mg CBC, BMP 03/16/18 06:20 03/16/18 06:20 Hepatic Panel Total Bilirubin 0.5 mg/dL (0.2-1.0) 03/16/18 06:20 AST 8 U/L (15-37) L 03/16/18 06:20 ALT 34 U/L (12-78) 03/16/18 06:20 Alkaline Phosphatase 66 U/L (45-117) 03/16/18 06:20 Albumin 3.1 g/dl (3.4-5.0) L 03/16/18 06:20 Physical Examination Constitutional: Yes: No Distress, Obese. on trach collar . awake. Comfortable. Eyes: Yes: Conjunctiva Clear Neck: Yes: Supple (s/p trach-- vent), Other Cardiovascular: Yes: Regular Rate and Rhythm Respiratory: Yes: Diminished at bases Gastrointestinal: Yes: Soft, Abdomen, Obese--tender to palpation--- especially in the right lower rib cage Edema: No Neurological: Yes: Alert Psychiatric: Yes: Alert Assessment/Plan Abx right upper quadrant pain GI source? Patient tolerating diet also abnormal liver function tests Maybe muscular--will order x-ray of the rib series I also discussed with surgeon as well as ID today Will follow continue meds continue present care discussed with nursing staff will follow Problem List - Problems (1) Respiratory failure Code(s): J96.90 - RESPIRATORY FAILURE, UNSP, UNSP W HYPOXIA OR HYPERCAPNIA (2) Acute on chronic respiratory failure with hypoxia and hypercapnia Code(s): J96.21 - ACUTE AND CHRONIC RESPIRATORY FAILURE WITH HYPOXIA; J96.22 - ACUTE AND CHRONIC RESPIRATORY FAILURE WITH HYPERCAPNIA (3) Bipolar 1 disorder Code(s): F31.9 - BIPOLAR DISORDER, UNSPECIFIED (4) Hypoxia Code(s): R09.02 - HYPOXEMIA (5) Right upper quadrant pain Code(s): R10.11 - RIGHT UPPER QUADRANT PAIN
[2018-03-17] MEDS ORDERED: DEXTROSE 5%-WATER 100 ML IVPB ONE (11:21)
[2018-03-17] MEDS ORDERED: PT OWN MED DRAWER 7, Y5N ONE ×2 (11:21→22:36)
[2018-03-17] MEDS: CEFTRIAXONE 2 GM in DEXTROSE 5%-WATER 100 ML IVPB SCH (11:30)
[2018-03-17] MEDS: ALPRAZolam 0.25 MG TABLET PO PRN (11:31)
[2018-03-17] MEDS: methylPREDNISolone NA SUCC 40 MG/1 ML VIAL IVPUSH SCH (11:31)
[2018-03-17] MEDS: FUROSEMIDE 20 MG TABLET (FP) PO SCH (11:31)
[2018-03-17] MEDS: ESCITALOPRAM OXALATE 20 MG TABLET (FP) PO SCH (11:31)
[2018-03-17] MEDS: ARIPiprazole 5 MG TABLET (FP) PO SCH (11:32)
[2018-03-17] MEDS: CARBAMIDE PEROXIDE 6.5% OTIC 15 ML BOTTLE AD SCH ×2 (11:33→22:14)
[2018-03-17] MEDS: BACITRACIN 15 GM TUBE TOPICAL OINTMENT TP SCH (11:33)
--- NOTE | 2018-03-17 14:22 | PN ---
Progress Note, Physician History of Present Illness: pulmonary alert,on trach collar,tolerating well. pt c/o ruq discomfort - Current Medication List Current Medications: Active Medications Albuterol/Ipratropium (Duoneb -) 1 amp NEB RQID [facility] Last Admin: 03/17/18 08:00 Dose: 1 amp Alprazolam (Xanax -) 0.25 mg PO Q6H PRN PRN Reason: ANXIETY Last Admin: 03/17/18 11:31 Dose: 0.25 mg Aripiprazole (Abilify) 5 mg PO DAILY [facility] Last Admin: 03/17/18 11:32 Dose: 5 mg Atorvastatin Calcium (Lipitor -) 20 mg PO HS [facility] Last Admin: 03/16/18 21:30 Dose: 20 mg Bacitracin (Bacitracin -) 1 applic TP DAILY [facility] Last Admin: 03/17/18 11:33 Dose: 1 applic Carbamide Perox/Anhydrous Glycerin (Debrox -) 5 drop AD BID [facility] Last Admin: 03/17/18 11:33 Dose: 5 drop Escitalopram Oxalate (Lexapro -) 20 mg PO DAILY [facility] Last Admin: 03/17/18 11:31 Dose: 20 mg Furosemide (Lasix -) 20 mg PO DAILY [facility] Last Admin: 03/17/18 11:31 Dose: 20 mg Heparin Sodium (Porcine) (Heparin -) 5,000 unit SQ TID [facility] Last Admin: 03/17/18 05:50 Dose: 5,000 unit Hydroxyzine HCl (Atarax -) 10 mg PO TID [facility] Last Admin: 03/17/18 05:50 Dose: 10 mg Ceftriaxone Sodium 2 gm/ (Dextrose) 100 mls @ 200 mls/hr IVPB DAILY [facility]; Protocol Last Admin: 03/17/18 11:30 Dose: 200 mls/hr Metronidazole (Flagyl 500mg Premixed Ivpb -) 500 mg in 100 mls @ 100 mls/hr IVPB Q8H-IV [facility] Last Admin: 03/17/18 11:30 Dose: 100 mls/hr Methylprednisolone Sodium Succinate (Solu-Medrol -) 40 mg IVPUSH DAILY [facility] Last Admin: 03/17/18 11:31 Dose: 40 mg Trazodone HCl (Desyrel -) 50 mg PO HS [facility] Last Admin: 03/16/18 21:30 Dose: 50 mg - Objective Vital Signs: Vital Signs Temperature 98.6 F 03/17/18 11:50 Pulse Rate 54 L 03/17/18 11:50 Respiratory Rate 22 03/17/18 11:50 Blood Pressure 118/66 03/17/18 11:50 O2 Sat by Pulse Oximetry (%) 100 03/17/18 09:00 Constitutional: Yes: Well Nourished, Calm Eyes: Yes: WNL HENT: Yes: WNL Neck: Yes: WNL Cardiovascular: Yes: Regular Rate and Rhythm, S1, S2 Respiratory: Yes: Diminished Gastrointestinal: Yes: Soft, Abdomen, Obese, Tenderness (min tender ruq) Extremities: Yes: WNL Edema: No Labs: CBC, BMP Problem List - Problems (1) Respiratory failure Code(s): J96.90 - RESPIRATORY FAILURE, UNSP, UNSP W HYPOXIA OR HYPERCAPNIA (2) Acute on chronic respiratory failure with hypoxia and hypercapnia Code(s): J96.21 - ACUTE AND CHRONIC RESPIRATORY FAILURE WITH HYPOXIA; J96.22 - ACUTE AND CHRONIC RESPIRATORY FAILURE WITH HYPERCAPNIA (3) Bipolar 1 disorder Code(s): F31.9 - BIPOLAR DISORDER, UNSPECIFIED (4) COPD exacerbation Code(s): J44.1 - CHRONIC OBSTRUCTIVE PULMONARY DISEASE W (ACUTE) EXACERBATION (5) Diabetes Code(s): E11.9 - TYPE 2 DIABETES MELLITUS WITHOUT COMPLICATIONS (6) Morbid (severe) obesity due to excess calories Code(s): E66.01 - MORBID (SEVERE) OBESITY DUE TO EXCESS CALORIES (7) Right upper quadrant pain Code(s): R10.11 - RIGHT UPPER QUADRANT PAIN Assessment/Plan ASSESSMENT AND PLAN: Acute on Chronic Hypoxic and Hypercapneic Respiratory Failure Acute COPD Exacerbation improving r/o Pneumonia r/o Cholecystitis LV Diastolic Dysfunction Seizure Disorder Bipolar Disorder - continue empiric antibiotics - ? HIDA scan - taper medrol - inhaled bronchodilators standing and PRN - trach collar as tolerated - DVT prophylaxis DR STEELE
[2018-03-17] MEDS: NYSTATIN POWDER 100,000 UNITS/GM - 15 GM TOPICAL POWDER TP SCH (22:11)
[2018-03-17] MEDS: ATORVASTATIN CA 20 MG TABLET (FP) PO SCH (22:12)
[2018-03-17] MEDS: traZODone HCL 50 MG TABLET (FP) PO SCH (22:12)
[2018-03-18] MEDS: HEPARIN NA (PORCINE) 5,000 UNITS/ML 1ML VIAL SQ SCH ×3 (06:40→22:19)
[2018-03-18] MEDS: hydrOXYzine HCL 10 MG TABLET PO SCH ×3 (06:40→22:18)
[2018-03-18] MEDS: ALBUTEROL SO4 2.5/IPRATROPIUM 0.5 INH SOL 3 ML VIAL.NEB. NEB SCH ×4 (08:00→20:30)
[2018-03-18] MEDS ORDERED: PT OWN MED DRAWER 7, Y5N ONE ×2 (10:11→22:23)
[2018-03-18] MEDS ORDERED: DEXTROSE 5%-WATER 100 ML IVPB ONE (10:11)
[2018-03-18] MEDS: BACITRACIN 15 GM TUBE TOPICAL OINTMENT TP SCH (10:17)
[2018-03-18] MEDS: ARIPiprazole 5 MG TABLET (FP) PO SCH (10:17)
[2018-03-18] MEDS: CARBAMIDE PEROXIDE 6.5% OTIC 15 ML BOTTLE AD SCH ×2 (10:18→22:33)
[2018-03-18] MEDS: FUROSEMIDE 20 MG TABLET (FP) PO SCH (10:22)
[2018-03-18] MEDS: CEFTRIAXONE 2 GM in DEXTROSE 5%-WATER 100 ML IVPB SCH (10:23)
[2018-03-18] MEDS: NYSTATIN POWDER 100,000 UNITS/GM - 15 GM TOPICAL POWDER TP SCH ×2 (10:23→22:19)
[2018-03-18] MEDS: ESCITALOPRAM OXALATE 20 MG TABLET (FP) PO SCH (10:23)
[2018-03-18] MEDS: methylPREDNISolone NA SUCC 40 MG/1 ML VIAL IVPUSH SCH (10:24)
--- NOTE | 2018-03-18 12:05 | PN ---
Progress Note (short form) - Note Progress Note: awake and comfortable patient reports Pain in right upper quadrant better--had pain last night Denies now tolerating diet Remains afebrile Nontoxic appearance alert and awake Vital Signs Temp 98.6 F 03/18/18 10:13 Pulse 59 L 03/18/18 10:13 Resp 18 03/18/18 10:13 BP 129/80 03/18/18 10:13 Pulse Ox 100 03/17/18 21:00 Intake & Output 03/17/18 03/18/18 03/18/18 23:59 11:59 23:59 Intake Total 1700 100 Balance 1700 100 Intake: IVPB 300 100 Oral 1400 Other: Voiding Method Incontinent # Unmeasured Voids Void 1 3 Bowel Movement Yes: large one No # Bowel Movements 1 Body Mass Index (BMI) 52.8 Active Medications Albuterol/Ipratropium (Duoneb -) 1 amp NEB RQID [facility] Last Admin: 03/17/18 20:39 Dose: 1 amp Alprazolam (Xanax -) 0.25 mg PO Q6H PRN PRN Reason: ANXIETY Last Admin: 03/17/18 11:31 Dose: 0.25 mg Aripiprazole (Abilify) 5 mg PO DAILY [facility] Last Admin: 03/18/18 10:17 Dose: 5 mg Atorvastatin Calcium (Lipitor -) 20 mg PO HS [facility] Last Admin: 03/17/18 22:12 Dose: 20 mg Bacitracin (Bacitracin -) 1 applic TP DAILY [facility] Last Admin: 03/18/18 10:17 Dose: 1 applic Carbamide Perox/Anhydrous Glycerin (Debrox -) 5 drop AD BID [facility] Last Admin: 03/18/18 10:18 Dose: 5 drop Escitalopram Oxalate (Lexapro -) 20 mg PO DAILY [facility] Last Admin: 03/18/18 10:23 Dose: 20 mg Furosemide (Lasix -) 20 mg PO DAILY [facility] Last Admin: 03/18/18 10:22 Dose: 20 mg Heparin Sodium (Porcine) (Heparin -) 5,000 unit SQ TID [facility] Last Admin: 03/18/18 06:40 Dose: 5,000 unit Hydroxyzine HCl (Atarax -) 10 mg PO TID [facility] Last Admin: 03/18/18 06:40 Dose: 10 mg Ceftriaxone Sodium 2 gm/ (Dextrose) 100 mls @ 200 mls/hr IVPB DAILY [facility]; Protocol Last Admin: 03/18/18 10:23 Dose: 200 mls/hr Metronidazole (Flagyl 500mg Premixed Ivpb -) 500 mg in 100 mls @ 100 mls/hr IVPB Q8H-IV [facility] Last Admin: 03/18/18 10:22 Dose: 100 mls/hr Methylprednisolone Sodium Succinate (Solu-Medrol -) 40 mg IVPUSH DAILY [facility] Last Admin: 03/18/18 10:24 Dose: 40 mg Nystatin (Nystop Powder -) 1 applic TP BID [facility] Last Admin: 03/18/18 10:23 Dose: 1 applic Trazodone HCl (Desyrel -) 50 mg PO HS [facility] Last Admin: 03/17/18 22:12 Dose: 50 mg CBC,CMP WBC 5.6 K/mm3 (4.0-10.0) 03/16/18 06:20 RBC 3.74 M/mm3 (3.60-5.2) 03/16/18 06:20 Hgb 10.3 GM/dL (10.7-15.3) L 03/16/18 06:20 Hct 32.2 % (32.4-45.2) L 03/16/18 06:20 MCV 86.2 fl (80-96) 03/16/18 06:20 MCH 27.6 pg (25.7-33.7) 03/16/18 06:20 MCHC 32.0 g/dl (32.0-36.0) 03/16/18 06:20 RDW 13.7 % (11.6-15.6) 03/16/18 06:20 Plt Count 189 K/MM3 (134-434) 03/16/18 06:20 MPV 8.1 fl (7.5-11.1) 03/16/18 06:20 Absolute Neuts (auto) 3.7 K/mm3 (1.5-8.0) 03/16/18 06:20 Neutrophils % 66.6 % (42.8-82.8) 03/16/18 06:20 Neutrophils % (Manual) 62.3 % (42.8-82.8) D 03/11/18 06:19 Band Neutrophils % 2.0 % 03/11/18 06:19 Lymphocytes % 27.5 % (8-40) D 03/16/18 06:20 Lymphocytes % (Manual) 27.6 % (8-40) D 03/11/18 06:19 Monocytes % 5.6 % (3.8-10.2) D 03/16/18 06:20 Monocytes % (Manual) 4 % (3.8-10.2) D 03/11/18 06:19 Eosinophils % 0.2 % (0-4.5) D 03/16/18 06:20 Eosinophils % (Manual) 1.0 % (0-4.5) D 03/11/18 06:19 Basophils % 0.1 % (0-2.0) 03/16/18 06:20 Basophils % (Manual) 0.0 % (0-2.0) 03/11/18 06:19 Myelocytes % (Man) 0 % (0-2) 03/11/18 06:19 Promyelocytes % (Man) 0 % (0-2) 03/11/18 06:19 Blast Cells % (Manual) 0 % (0-0) 03/11/18 06:19 Nucleated RBC % 0 % (0-0) 03/16/18 06:20 Metamyelocytes 1 % (0-2) D 03/11/18 06:19 Hypochromia 0 03/11/18 06:19 Platelet Estimate Normal 03/11/18 06:19 Polychromasia 0 03/11/18 06:19 Poikilocytosis 0 03/11/18 06:19 Basophilic Stippling 0 03/11/18 06:19 Anisocytosis 3+ 03/11/18 06:19 Microcytosis 2+ 03/11/18 06:19 Macrocytosis 0 03/11/18 06:19 Tear Drop Cells 0 03/11/18 06:19 Stomatocytes 0 03/11/18 06:19 Sodium 144 mmol/L (136-145) 03/16/18 06:20 Potassium 3.8 mmol/L (3.5-5.1) 03/16/18 06:20 Chloride 102 mmol/L (98-107) 03/16/18 06:20 Carbon Dioxide 33 mmol/L (21-32) H 03/16/18 06:20 Anion Gap 9 MMOL/L (8-16) 03/16/18 06:20 BUN 14 mg/dL (7-18) 03/16/18 06:20 Creatinine 0.4 mg/dL (0.55-1.02) L 03/16/18 06:20 Creat Clearance w eGFR > 60 (>60) 03/16/18 06:20 POC Glucometer 107 UNITS (80-120) 03/15/18 23:28 Random Glucose 70 mg/dL (74-106) L 03/16/18 06:20 Calcium 8.5 mg/dL (8.5-10.1) 03/16/18 06:20 Phosphorus 4.0 mg/dL (2.5-4.9) 03/15/18 05:30 Magnesium 2.2 mg/dL (1.8-2.4) 03/15/18 05:30 Total Bilirubin 0.5 mg/dL (0.2-1.0) 03/16/18 06:20 AST 8 U/L (15-37) L 03/16/18 06:20 ALT 34 U/L (12-78) 03/16/18 06:20 Alkaline Phosphatase 66 U/L (45-117) 03/16/18 06:20 Total Protein 5.9 g/dl (6.4-8.2) L 03/16/18 06:20 Albumin 3.1 g/dl (3.4-5.0) L 03/16/18 06:20 Physical Examination Constitutional: Yes: No Distress, Obese. on trach collar . awake. Comfortable. Eyes: Yes: Conjunctiva Clear Neck: Yes: Supple (s/p trach-- vent), Other Cardiovascular: Yes: Regular Rate and Rhythm Respiratory: Yes: Diminished at bases Gastrointestinal: Yes: Soft, Abdomen, Obese--Non tender. Bowel sounds present Edema: No Neurological: Yes: Alert Psychiatric: Yes: Alert Assessment/Plan Abx right upper quadrant pain overall better continue present care Ribs--negative for fracture Transvaginal ultrasound--- noted Follow-up with [employer] [employer] outpatient Tylenol when necessary continue empiric antibiotics for now Follow-up labs Will follow Problem List - Problems (1) Respiratory failure Code(s): J96.90 - RESPIRATORY FAILURE, UNSP, UNSP W HYPOXIA OR HYPERCAPNIA (2) Acute on chronic respiratory failure with hypoxia and hypercapnia Code(s): J96.21 - ACUTE AND CHRONIC RESPIRATORY FAILURE WITH HYPOXIA; J96.22 - ACUTE AND CHRONIC RESPIRATORY FAILURE WITH HYPERCAPNIA (3) Bipolar 1 disorder Code(s): F31.9 - BIPOLAR DISORDER, UNSPECIFIED (4) Hypoxia Code(s): R09.02 - HYPOXEMIA (5) Right upper quadrant pain Code(s): R10.11 - RIGHT UPPER QUADRANT PAIN
--- NOTE | 2018-03-18 14:00 | PN ---
Progress Note (short form) - Note Progress Note: PULMONARY Still with RUQ pain. No nausea or vomiting. Tolerating PO. Vital Signs Period Temp Pulse Resp BP Sys/Petersen Pulse Ox Last 24 Hr 98.2 F-99.2 F 48-76 18-30 127-142/68-80 100 Gen: vented, awake Heart: RRR Lung: scattered rhonchi, wheezes Abd: soft, nontender Ext: no edema CBC, BMP 03/16/18 06:20 03/16/18 06:20 Active Medications Acetaminophen (Tylenol -) 500 mg PO Q6H PRN PRN Reason: PAIN LEVEL 4 - 6 Albuterol/Ipratropium (Duoneb -) 1 amp NEB RQID [facility] Last Admin: 03/18/18 11:30 Dose: 1 amp Alprazolam (Xanax -) 0.25 mg PO Q6H PRN PRN Reason: ANXIETY Last Admin: 03/17/18 11:31 Dose: 0.25 mg Aripiprazole (Abilify) 5 mg PO DAILY [facility] Last Admin: 03/18/18 10:17 Dose: 5 mg Atorvastatin Calcium (Lipitor -) 20 mg PO HS [facility] Last Admin: 03/17/18 22:12 Dose: 20 mg Bacitracin (Bacitracin -) 1 applic TP DAILY [facility] Last Admin: 03/18/18 10:17 Dose: 1 applic Carbamide Perox/Anhydrous Glycerin (Debrox -) 5 drop AD BID [facility] Last Admin: 03/18/18 10:18 Dose: 5 drop Escitalopram Oxalate (Lexapro -) 20 mg PO DAILY [facility] Last Admin: 03/18/18 10:23 Dose: 20 mg Furosemide (Lasix -) 20 mg PO DAILY [facility] Last Admin: 03/18/18 10:22 Dose: 20 mg Heparin Sodium (Porcine) (Heparin -) 5,000 unit SQ TID [facility] Last Admin: 03/18/18 06:40 Dose: 5,000 unit Hydroxyzine HCl (Atarax -) 10 mg PO TID [facility] Last Admin: 03/18/18 06:40 Dose: 10 mg Ceftriaxone Sodium 2 gm/ (Dextrose) 100 mls @ 200 mls/hr IVPB DAILY [facility]; Protocol Last Admin: 03/18/18 10:23 Dose: 200 mls/hr Metronidazole (Flagyl 500mg Premixed Ivpb -) 500 mg in 100 mls @ 100 mls/hr IVPB Q8H-IV [facility] Last Admin: 03/18/18 10:22 Dose: 100 mls/hr Methylprednisolone Sodium Succinate (Solu-Medrol -) 40 mg IVPUSH DAILY [facility] Last Admin: 03/18/18 10:24 Dose: 40 mg Nystatin (Nystop Powder -) 1 applic TP BID [facility] Last Admin: 03/18/18 10:23 Dose: 1 applic Trazodone HCl (Desyrel -) 50 mg PO HS [facility] Last Admin: 03/17/18 22:12 Dose: 50 mg A/P Acute on Chronic Hypoxic and Hypercapneic Respiratory Failure Acute COPD Exacerbation improving r/o Pneumonia r/o Cholecystitis LV Diastolic Dysfunction Seizure Disorder Bipolar Disorder - continue empiric antibiotics - GI work up in progress - taper medrol - inhaled bronchodilators standing and PRN - trach collar as tolerated - DVT prophylaxis
--- NOTE | 2018-03-18 14:16 | EKG ---
Test Reason : Blood Pressure : / mmHG Vent. Rate : 049 BPM Atrial Rate : 049 BPM P-R Int : 182 ms QRS Dur : 114 ms QT Int : 434 ms P-R-T Axes : 048 -05 006 degrees QTc Int : 392 ms SINUS BRADYCARDIA INCOMPLETE RIGHT BUNDLE BRANCH BLOCK MINIMAL VOLTAGE CRITERIA FOR LVH, MAY BE NORMAL VARIANT BORDERLINE ECG WHEN COMPARED WITH ECG OF 11-MAR-2018 07:19, VENT. RATE HAS DECREASED BY 59 BPM T WAVE INVERSION NOW EVIDENT IN INFERIOR LEADS QT HAS SHORTENED Confirmed by MOE ROSALES MD ([id number]) on 03/18/2018 2:16:30 PM Referred By: ZO Ga DR Confirmed By:MOE ROSALES MD
[2018-03-18] MEDS: ACETAMINOPHEN 500 MG TABLET (FP) PO PRN ×2 (14:56→22:33)
[2018-03-18] MEDS: ALPRAZolam 0.25 MG TABLET PO PRN (18:24)
[2018-03-18] MEDS: traZODone HCL 50 MG TABLET (FP) PO SCH (22:18)
[2018-03-18] MEDS: ATORVASTATIN CA 20 MG TABLET (FP) PO SCH (22:18)
[2018-03-19] MEDS: ALPRAZolam 0.25 MG TABLET PO PRN (02:11)
[2018-03-19] MEDS: HEPARIN NA (PORCINE) 5,000 UNITS/ML 1ML VIAL SQ SCH ×3 (05:19→22:55)
[2018-03-19] MEDS: ACETAMINOPHEN 500 MG TABLET (FP) PO PRN ×3 (05:19→22:54)
[2018-03-19] MEDS: hydrOXYzine HCL 10 MG TABLET PO SCH ×3 (05:20→22:54)
[2018-03-19 07:10] LABS: BASO % 0.2 % (0-2.0); EOS % 1.2 % (0-4.5); HEMATOCRIT 33.9 % (32.4-45.2); HEMOGLOBIN 10.7 GM/dL (10.7-15.3); LYMPH % 27.3 % (8-40); MCH 27.5 pg (25.7-33.7); MCHC 31.4 g/dl (32.0-36.0); MEAN CELL VOLUME 87.5 fl (80-96); MEAN PLT VOLUME 7.9 fl (7.5-11.1); MONO % 4.9 % (3.8-10.2); NEUT % 66.4 % (42.8-82.8); PLATELET COUNT 209 K/MM3 (134-434); RBC 3.88 M/mm3 (3.60-5.2); RDW 14.1 % (11.6-15.6); WHITE BLOOD COUNT 7.6 K/mm3 (4.0-10.0)
[2018-03-19] MEDS: ALBUTEROL SO4 2.5/IPRATROPIUM 0.5 INH SOL 3 ML VIAL.NEB. NEB SCH ×4 (07:35→20:50)
[2018-03-19 07:41] LABS: CHLORIDE 103 mmol/L (98-107); POTASSIUM 4.9 mmol/L (3.5-5.1); SODIUM 141 mmol/L (136-145)
[2018-03-19 07:51] LABS: ALK PHOS 62 U/L (45-117); ANION GAP 6 MMOL/L (8-16); BILIRUBIN,TOTAL 0.3 mg/dL (0.2-1.0); BLOOD UREA NITROGEN 14 mg/dL (7-18); CALCIUM 8.4 mg/dL (8.5-10.1); CO2 32 mmol/L (21-32); CREATININE 0.4 mg/dL (0.55-1.02); GLUCOSE,RANDOM 76 mg/dL (74-106); SGOT/AST 9 U/L (15-37); SGPT/ALT 26 U/L (12-78)
[2018-03-19] MEDS ORDERED: DEXTROSE 5%-WATER 100 ML IVPB ONE (09:09)
[2018-03-19] MEDS ORDERED: PT OWN MED DRAWER 7, Y5N ONE ×2 (09:09→22:52)
[2018-03-19] MEDS: methylPREDNISolone NA SUCC 40 MG/1 ML VIAL IVPUSH SCH (09:13)
[2018-03-19] MEDS: FUROSEMIDE 20 MG TABLET (FP) PO SCH (09:14)
[2018-03-19] MEDS: ESCITALOPRAM OXALATE 20 MG TABLET (FP) PO SCH (09:14)
[2018-03-19] MEDS: ARIPiprazole 5 MG TABLET (FP) PO SCH (09:19)
[2018-03-19] MEDS: CARBAMIDE PEROXIDE 6.5% OTIC 15 ML BOTTLE AD SCH ×2 (09:20→22:55)
[2018-03-19] MEDS: CEFTRIAXONE 2 GM in DEXTROSE 5%-WATER 100 ML IVPB SCH (11:00)
--- NOTE | 2018-03-19 12:43 | PN ---
Progress Note (short form) - Note Progress Note: PULMONARY AWAKE/ALERT NOT USING PMV FOR TECHNICAL REASONS EXPECTORATING SPUTUM/NO BLOOD ANICTERIC/TRACH WITH O2 COLLAR SCATTERED MINIMAL RHONCHI S1S2 BS+ OBESE NO EDEMA LABS/MEDS/NOTES/IMAGING REVIEWED Acute on Chronic Hypoxic and Hypercapneic Respiratory Failure Pneumonia Acute COPD Exacerbation improving LV Diastolic Dysfunction Seizure Disorder Bipolar Disorder - continue empiric antibiotics - taper medrol - inhaled bronchodilators standing and PRN - trach collar as tolerated - DVT prophylaxis Marcus ALVA MD
[2018-03-19] MEDS: NYSTATIN POWDER 100,000 UNITS/GM - 15 GM TOPICAL POWDER TP SCH ×2 (14:23→22:58)
--- NOTE | 2018-03-19 14:43 | PN ---
Progress Note (short form) - Note Progress Note: patient seen and examined Comfortable Remains afebrile Still stays--has discomfort/pain in right upper quadrant No distress overall better Normal white count Normal LFTs Tolerating diet Vital Signs Temp 98.6 F 03/19/18 09:05 Pulse 55 L 03/19/18 11:46 Resp 19 03/19/18 09:05 BP 112/56 03/19/18 09:05 Pulse Ox 95 03/19/18 11:46 Intake & Output 03/18/18 03/19/18 03/19/18 23:59 11:59 23:59 Intake Total 700 730 Balance 700 730 Intake: IVPB 100 300 Oral 600 430 Other: Voiding Method Incontinent Incontinent # Unmeasured Voids Void 2 2 Bowel Movement No Active Medications Acetaminophen (Tylenol -) 500 mg PO Q6H PRN PRN Reason: PAIN LEVEL 4 - 6 Last Admin: 03/19/18 14:20 Dose: 500 mg Albuterol/Ipratropium (Duoneb -) 1 amp NEB RQID [facility] Last Admin: 03/19/18 11:28 Dose: 1 amp Aripiprazole (Abilify) 5 mg PO DAILY [facility] Last Admin: 03/19/18 09:19 Dose: 5 mg Atorvastatin Calcium (Lipitor -) 20 mg PO HS [facility] Last Admin: 03/18/18 22:18 Dose: 20 mg Bacitracin (Bacitracin -) 1 applic TP DAILY [facility] Last Admin: 03/18/18 10:17 Dose: 1 applic Carbamide Perox/Anhydrous Glycerin (Debrox -) 5 drop AD BID [facility] Last Admin: 03/19/18 09:20 Dose: 5 drop Escitalopram Oxalate (Lexapro -) 20 mg PO DAILY [facility] Last Admin: 03/19/18 09:14 Dose: 20 mg Furosemide (Lasix -) 20 mg PO DAILY [facility] Last Admin: 03/19/18 09:14 Dose: 20 mg Heparin Sodium (Porcine) (Heparin -) 5,000 unit SQ TID [facility] Last Admin: 03/19/18 14:19 Dose: 5,000 unit Hydroxyzine HCl (Atarax -) 10 mg PO TID [facility] Last Admin: 03/19/18 14:19 Dose: 10 mg Ceftriaxone Sodium 2 gm/ (Dextrose) 100 mls @ 200 mls/hr IVPB DAILY [facility]; Protocol Last Admin: 03/19/18 11:00 Dose: 200 mls/hr Metronidazole (Flagyl 500mg Premixed Ivpb -) 500 mg in 100 mls @ 100 mls/hr IVPB Q8H-IV [facility] Last Admin: 03/19/18 09:14 Dose: 100 mls/hr Methylprednisolone Sodium Succinate (Solu-Medrol -) 40 mg IVPUSH DAILY [facility] Last Admin: 03/19/18 09:13 Dose: 40 mg Nystatin (Nystop Powder -) 1 applic TP BID [facility] Last Admin: 03/19/18 14:23 Dose: 1 applic Trazodone HCl (Desyrel -) 50 mg PO HS [facility] Last Admin: 03/18/18 22:18 Dose: 50 mg CBC,CMP WBC 7.6 K/mm3 (4.0-10.0) 03/19/18 06:00 RBC 3.88 M/mm3 (3.60-5.2) 03/19/18 06:00 Hgb 10.7 GM/dL (10.7-15.3) 03/19/18 06:00 Hct 33.9 % (32.4-45.2) 03/19/18 06:00 MCV 87.5 fl (80-96) 03/19/18 06:00 MCH 27.5 pg (25.7-33.7) 03/19/18 06:00 MCHC 31.4 g/dl (32.0-36.0) L 03/19/18 06:00 RDW 14.1 % (11.6-15.6) 03/19/18 06:00 Plt Count 209 K/MM3 (134-434) 03/19/18 06:00 MPV 7.9 fl (7.5-11.1) 03/19/18 06:00 Absolute Neuts (auto) 5.1 K/mm3 (1.5-8.0) 03/19/18 06:00 Neutrophils % 66.4 % (42.8-82.8) 03/19/18 06:00 Neutrophils % (Manual) 62.3 % (42.8-82.8) D 03/11/18 06:19 Band Neutrophils % 2.0 % 03/11/18 06:19 Lymphocytes % 27.3 % (8-40) 03/19/18 06:00 Lymphocytes % (Manual) 27.6 % (8-40) D 03/11/18 06:19 Monocytes % 4.9 % (3.8-10.2) 03/19/18 06:00 Monocytes % (Manual) 4 % (3.8-10.2) D 03/11/18 06:19 Eosinophils % 1.2 % (0-4.5) D 03/19/18 06:00 Eosinophils % (Manual) 1.0 % (0-4.5) D 03/11/18 06:19 Basophils % 0.2 % (0-2.0) 03/19/18 06:00 Basophils % (Manual) 0.0 % (0-2.0) 03/11/18 06:19 Myelocytes % (Man) 0 % (0-2) 03/11/18 06:19 Promyelocytes % (Man) 0 % (0-2) 03/11/18 06:19 Blast Cells % (Manual) 0 % (0-0) 03/11/18 06:19 Nucleated RBC % 0 % (0-0) 03/19/18 06:00 Metamyelocytes 1 % (0-2) D 03/11/18 06:19 Hypochromia 0 03/11/18 06:19 Platelet Estimate Normal 03/11/18 06:19 Polychromasia 0 03/11/18 06:19 Poikilocytosis 0 03/11/18 06:19 Basophilic Stippling 0 03/11/18 06:19 Anisocytosis 3+ 03/11/18 06:19 Microcytosis 2+ 03/11/18 06:19 Macrocytosis 0 03/11/18 06:19 Tear Drop Cells 0 03/11/18 06:19 Stomatocytes 0 03/11/18 06:19 Sodium 141 mmol/L (136-145) 03/19/18 06:00 Potassium 4.9 mmol/L (3.5-5.1) 03/19/18 06:00 Chloride 103 mmol/L (98-107) 03/19/18 06:00 Carbon Dioxide 32 mmol/L (21-32) 03/19/18 06:00 Anion Gap 6 MMOL/L (8-16) L 03/19/18 06:00 BUN 14 mg/dL (7-18) 03/19/18 06:00 Creatinine 0.4 mg/dL (0.55-1.02) L 03/19/18 06:00 Creat Clearance w eGFR > 60 (>60) 03/19/18 06:00 POC Glucometer 107 UNITS (80-120) 03/15/18 23:28 Random Glucose 76 mg/dL (74-106) 03/19/18 06:00 Calcium 8.4 mg/dL (8.5-10.1) L 03/19/18 06:00 Phosphorus 4.0 mg/dL (2.5-4.9) 03/15/18 05:30 Magnesium 2.2 mg/dL (1.8-2.4) 03/15/18 05:30 Total Bilirubin 0.3 mg/dL (0.2-1.0) 03/19/18 06:00 AST 9 U/L (15-37) L 03/19/18 06:00 ALT 26 U/L (12-78) 03/19/18 06:00 Alkaline Phosphatase 62 U/L (45-117) 03/19/18 06:00 Total Protein 6.0 g/dl (6.4-8.2) L 03/19/18 06:00 Albumin 3.0 g/dl (3.4-5.0) L 03/19/18 06:00 Microbiology 03/11/18 06:45 Blood Culture - Final Blood - Peripheral Venous Staph Hominis Sub Sp Hominis Physical Examination Constitutional: Yes: No Distress, Obese. on trach collar . awake. Comfortable. Eyes: Yes: Conjunctiva Clear Neck: Yes: Supple (s/p trach-- vent), Other Cardiovascular: Yes: Regular Rate and Rhythm Respiratory: Yes: Diminished at bases Gastrointestinal: Yes: Soft, Abdomen, Obese--Non tender. Bowel sounds present Edema: No Neurological: Yes: Alert Psychiatric: Yes: Alert Assessment/Plan Abx right upper quadrant pain overall better continue present care continue antibiotics--- consider discontinuing a.m. Will discuss with ID and surgery Doubt anything with gallbladder If cleared by ID and surgery--- consider discharge tomorrow Will monitor blood tests in longterm Discussed with patient patient also in agreement with the plan Will follow Problem List - Problems (1) Respiratory failure Code(s): J96.90 - RESPIRATORY FAILURE, UNSP, UNSP W HYPOXIA OR HYPERCAPNIA (2) Acute on chronic respiratory failure with hypoxia and hypercapnia Code(s): J96.21 - ACUTE AND CHRONIC RESPIRATORY FAILURE WITH HYPOXIA; J96.22 - ACUTE AND CHRONIC RESPIRATORY FAILURE WITH HYPERCAPNIA (3) Bipolar 1 disorder Code(s): F31.9 - BIPOLAR DISORDER, UNSPECIFIED (4) Hypoxia Code(s): R09.02 - HYPOXEMIA (5) Right upper quadrant pain Code(s): R10.11 - RIGHT UPPER QUADRANT PAIN
[2018-03-19] MEDS ORDERED: ALPRAZolam 0.25 MG TABLET PO ONE ×2 (22:03→23:00)
[2018-03-19] MEDS: traZODone HCL 50 MG TABLET (FP) PO SCH (22:54)
[2018-03-19] MEDS: ATORVASTATIN CA 20 MG TABLET (FP) PO SCH (22:54)
[2018-03-20] MEDS: HEPARIN NA (PORCINE) 5,000 UNITS/ML 1ML VIAL SQ SCH ×2 (05:36→13:58)
[2018-03-20] MEDS: hydrOXYzine HCL 10 MG TABLET PO SCH ×2 (05:37→13:58)
[2018-03-20] MEDS: BACITRACIN 15 GM TUBE TOPICAL OINTMENT TP SCH ×2 (07:08→11:07)
[2018-03-20] MEDS: ACETAMINOPHEN 500 MG TABLET (FP) PO PRN (07:19)
[2018-03-20] MEDS: ALBUTEROL SO4 2.5/IPRATROPIUM 0.5 INH SOL 3 ML VIAL.NEB. NEB SCH ×4 (08:40→20:31)
[2018-03-20] MEDS: methylPREDNISolone NA SUCC 40 MG/1 ML VIAL IVPUSH SCH (10:37)
[2018-03-20] MEDS ORDERED: PT OWN MED DRAWER 7, Y5N ONE (10:57)
[2018-03-20] MEDS ORDERED: DEXTROSE 5%-WATER 100 ML IVPB ONE (10:58)
[2018-03-20] MEDS: ESCITALOPRAM OXALATE 20 MG TABLET (FP) PO SCH (11:00)
[2018-03-20] MEDS: ARIPiprazole 5 MG TABLET (FP) PO SCH (11:01)
[2018-03-20] MEDS: FUROSEMIDE 20 MG TABLET (FP) PO SCH (11:01)
[2018-03-20] MEDS: NYSTATIN POWDER 100,000 UNITS/GM - 15 GM TOPICAL POWDER TP SCH (11:02)
[2018-03-20] MEDS: CARBAMIDE PEROXIDE 6.5% OTIC 15 ML BOTTLE AD SCH (11:03)
[2018-03-20] MEDS: CEFTRIAXONE 2 GM in DEXTROSE 5%-WATER 100 ML IVPB SCH (11:22)
--- NOTE | 2018-03-20 12:35 | PN ---
Progress Note (short form) - Note Progress Note: PULMONARY Vented on volume assist control. Still with RUQ pain. No nausea or vomiting. Tolerating PO. Vital Signs Period Temp Pulse Resp BP Sys/Petersen Pulse Ox Last 24 Hr 98.0 F-99.2 F 48-69 18-28 102-131/52-68 99 Intake & Output 03/17/18 03/18/18 03/19/18 03/20/18 23:59 23:59 23:59 23:59 Intake Total 1572 158 6686 530 Balance 8344 242 4593 530 Gen: vented, awake Heart: RRR Lung: scattered rhonchi, wheezes Abd: soft, nontender Ext: no edema CBC, BMP 03/19/18 06:00 03/19/18 06:00 Active Medications Acetaminophen (Tylenol -) 500 mg PO Q6H PRN PRN Reason: PAIN LEVEL 4 - 6 Last Admin: 03/20/18 07:19 Dose: 500 mg Albuterol/Ipratropium (Duoneb -) 1 amp NEB RQID [facility] Last Admin: 03/20/18 11:35 Dose: 1 amp Aripiprazole (Abilify) 5 mg PO DAILY [facility] Last Admin: 03/20/18 11:01 Dose: 5 mg Atorvastatin Calcium (Lipitor -) 20 mg PO HS [facility] Last Admin: 03/19/18 22:54 Dose: 20 mg Bacitracin (Bacitracin -) 1 applic TP DAILY [facility] Last Admin: 03/20/18 11:07 Dose: 1 applic Carbamide Perox/Anhydrous Glycerin (Debrox -) 5 drop AD BID [facility] Last Admin: 03/20/18 11:03 Dose: 5 drop Escitalopram Oxalate (Lexapro -) 20 mg PO DAILY [facility] Last Admin: 03/20/18 11:00 Dose: 20 mg Furosemide (Lasix -) 20 mg PO DAILY [facility] Last Admin: 03/20/18 11:01 Dose: 20 mg Heparin Sodium (Porcine) (Heparin -) 5,000 unit SQ TID [facility] Last Admin: 03/20/18 05:36 Dose: 5,000 unit Hydroxyzine HCl (Atarax -) 10 mg PO TID [facility] Last Admin: 03/20/18 05:37 Dose: 10 mg Ceftriaxone Sodium 2 gm/ (Dextrose) 100 mls @ 200 mls/hr IVPB DAILY [facility]; Protocol Last Admin: 03/20/18 11:22 Dose: 200 mls/hr Metronidazole (Flagyl 500mg Premixed Ivpb -) 500 mg in 100 mls @ 100 mls/hr IVPB Q8H-IV [facility] Last Admin: 03/20/18 10:36 Dose: 100 mls/hr Methylprednisolone Sodium Succinate (Solu-Medrol -) 40 mg IVPUSH DAILY [facility] Last Admin: 03/20/18 10:37 Dose: 40 mg Nystatin (Nystop Powder -) 1 applic TP BID [facility] Last Admin: 03/20/18 11:02 Dose: 1 applic Trazodone HCl (Desyrel -) 50 mg PO HS [facility] Last Admin: 03/19/18 22:54 Dose: 50 mg A/P Acute on Chronic Hypoxic and Hypercapneic Respiratory Failure Acute COPD Exacerbation improving r/o Pneumonia r/o Cholecystitis LV Diastolic Dysfunction Seizure Disorder Bipolar Disorder - complete empiric antibiotics - can change medrol to prednisone - inhaled bronchodilators standing and PRN - trach collar as tolerated - DVT prophylaxis
--- NOTE | 2018-03-20 14:35 | DS ---
Physical Examination Vital Signs: Vital Signs Temperature 98.1 F 03/20/18 09:00 Pulse Rate 57 L 03/20/18 09:00 Respiratory Rate 24 03/20/18 11:43 Blood Pressure 102/52 03/20/18 09:00 O2 Sat by Pulse Oximetry (%) 99 03/19/18 21:30 Findings/Remarks: comfortable says left ruq pain much better no distress afebrile eating ok Constitutional: Yes: No Distress, Calm Eyes: Yes: Conjunctiva Clear Neck: Yes: Supple, Other (s/p trach- collar -- vent at night) Gastrointestinal: Yes: Soft Edema: No Neurological: Yes: Alert Labs: CBC, BMP 03/19/18 06:00 03/19/18 06:00 Discharge Summary Reason For Visit: RESPIRATORY FAILURE Current Active Problems Acalculous cholecystitis (Acute) Leiomyoma of body of uterus (Acute) Obesity (BMI 30-39.9) (Acute) Respiratory failure (Acute) Right upper quadrant pain (Acute) Hospital Course: Admitted due respiratory distress suspected pneumonia treated with abx Stay complicated with ruq pain -- concern for cholecystitis-- but i doubted unable to do hida scan pts lfts ok tolerating diet- no issues stable for d/c off abx meds reconcilled Discussed with nursing staff also pt also in agreement . Condition: Stable - Instructions Disposition: SNF FACILITY - Home Medications Comprehensive Discharge Medication List: Ambulatory Orders Acetaminophen 650 mg PO DAILY 10/18/17 Albuterol Sulfate [Proair Respiclick] 90 mcg IH TID 10/18/17 Aripiprazole 5 mg PO DAILY 10/18/17 Aspirin 81 mg PO DAILY 10/18/17 Ergocalciferol (Vitamin D2) [Vitamin D2] 50,000 unit PO WEEKLY 10/18/17 Furosemide [Lasix -] 20 mg PO DAILY 10/18/17 Heparin Sod,Porcine/0.9 % NaCl [Heparin 5,000 Unit/1,000 ml-Ns] 5,000 unit SCJ BID 10/18/17 Insulin Lispro [Humalog] 0 unit SQ ASDIR 10/18/17 Lactobacillus Acidophilus [Acidophilus] 1 each PO BID 10/18/17 Levothyroxine [Synthroid -] 25 mcg PO DAILY 10/18/17 Mirtazapine 15 mg PO DAILY 10/18/17 traZODone HCL [Trazodone HCl] 50 mg PO DAILY 10/18/17 Sennosides [Senna -] 2 tab PO HS tablet 01/18/18 Atorvastatin Ca [Lipitor] 20 mg PO HS 01/24/18 Budesonide/Formeterol Fumarate [SYMBICORT 160/4.5mcg -] 1 inh PO BID 01/24/18 Clotrimazole/Betamet Diprop [Lotrisone -] 1 applic TP BID 01/24/18 Docusate Sodium [Colace] 100 mg PO DAILY 01/24/18 Escitalopram Oxalate [Lexapro -] 20 mg PO DAILY 01/24/18 Magnesium Hydroxide [Milk of Magnesia] 400 mg PO ASDIR PRN 01/24/18 Polyethylene Glycol 3350 [Gavilax] 17 gm PO DAILY 01/24/18 Vit A/Vitamin D3/E/Aloe V/Zinc [Periguard Ointment] 100 gm TP BID 01/24/18 Alprazolam [Xanax] 0.25 mg PO Q8H PRN #30 tablet MDD 3 02/03/18 Guaifenesin/D-Methorphan Hb [Diabetic Tussin Dm -] 10 ml PO Q4H PRN ml Albuterol 2.5/Ipratropium 0.5 [Duoneb -] 1 amp NEB RQID amp 03/20/18 Bacitracin - [Bacitracin Topical Ointment -] 1 applic TP DAILY tube 03/20/18 Nystatin Powder [Nystop Powder -] 1 applic TP BID applic 03/20/18 Prednisone 40 mg PO DAILY #30 tablet 03/20/18 traZODone HCL [Desyrel -] 50 mg PO HS tablet 03/20/18
[2018-03-21] MEDS ORDERED: PT OWN MED DRAWER 7, Y5N ONE ×2 (00:28→09:24)
[2018-03-21] MEDS: hydrOXYzine HCL 10 MG TABLET PO SCH ×4 (00:32→23:16)
[2018-03-21] MEDS: HEPARIN NA (PORCINE) 5,000 UNITS/ML 1ML VIAL SQ SCH ×4 (00:32→21:17)
[2018-03-21] MEDS: ACETAMINOPHEN 500 MG TABLET (FP) PO PRN ×4 (00:32→21:17)
[2018-03-21] MEDS: ATORVASTATIN CA 20 MG TABLET (FP) PO SCH ×2 (00:32→21:17)
[2018-03-21] MEDS: traZODone HCL 50 MG TABLET (FP) PO SCH ×2 (00:33→21:17)
[2018-03-21] MEDS: CARBAMIDE PEROXIDE 6.5% OTIC 15 ML BOTTLE AD SCH ×3 (00:33→23:16)
[2018-03-21] MEDS: NYSTATIN POWDER 100,000 UNITS/GM - 15 GM TOPICAL POWDER TP SCH ×3 (00:33→23:16)
[2018-03-21] MEDS: FUROSEMIDE 20 MG TABLET (FP) PO SCH (09:40)
[2018-03-21] MEDS: ESCITALOPRAM OXALATE 20 MG TABLET (FP) PO SCH (09:40)
[2018-03-21] MEDS: ARIPiprazole 5 MG TABLET (FP) PO SCH (09:42)
[2018-03-21] MEDS: BACITRACIN 15 GM TUBE TOPICAL OINTMENT TP SCH (09:42)
[2018-03-21] MEDS: CEFTRIAXONE 2 GM in DEXTROSE 5%-WATER 100 ML IVPB SCH (10:21)
[2018-03-21] MEDS: methylPREDNISolone NA SUCC 40 MG/1 ML VIAL IVPUSH SCH (10:22)
--- NOTE | 2018-03-21 14:27 | PN ---
Progress Note (short form) - Note Progress Note: PULMONARY Breathing about the same. Vented on volume assist control. Still with RUQ pain. No nausea or vomiting. Tolerating PO. Vital Signs Period Temp Pulse Resp BP Sys/Petersen Pulse Ox Last 24 Hr 97.7 F-98.8 F 55-75 18-37 117-136/54-83 99 Gen: vented, awake Heart: RRR Lung: scattered rhonchi, wheezes Abd: soft, nontender Ext: no edema CBC, BMP 03/19/18 06:00 03/19/18 06:00 Active Medications Acetaminophen (Tylenol -) 500 mg PO Q6H PRN PRN Reason: PAIN LEVEL 4 - 6 Last Admin: 03/21/18 14:26 Dose: 500 mg Aripiprazole (Abilify) 5 mg PO DAILY [facility] Last Admin: 03/21/18 09:42 Dose: 5 mg Atorvastatin Calcium (Lipitor -) 20 mg PO HS [facility] Last Admin: 03/21/18 00:32 Dose: 20 mg Bacitracin (Bacitracin -) 1 applic TP DAILY [facility] Last Admin: 03/21/18 09:42 Dose: 1 applic Carbamide Perox/Anhydrous Glycerin (Debrox -) 5 drop AD BID [facility] Last Admin: 03/21/18 09:43 Dose: 5 drop Escitalopram Oxalate (Lexapro -) 20 mg PO DAILY [facility] Last Admin: 03/21/18 09:40 Dose: 20 mg Furosemide (Lasix -) 20 mg PO DAILY [facility] Last Admin: 03/21/18 09:40 Dose: 20 mg Heparin Sodium (Porcine) (Heparin -) 5,000 unit SQ TID [facility] Last Admin: 03/21/18 14:27 Dose: 5,000 unit Hydroxyzine HCl (Atarax -) 10 mg PO TID [facility] Last Admin: 03/21/18 14:27 Dose: 10 mg Ceftriaxone Sodium 2 gm/ (Dextrose) 100 mls @ 200 mls/hr IVPB DAILY [facility]; Protocol Last Admin: 03/21/18 10:21 Dose: Not Given Metronidazole (Flagyl 500mg Premixed Ivpb -) 500 mg in 100 mls @ 100 mls/hr IVPB Q8H-IV [facility] Last Admin: 03/21/18 11:43 Dose: Not Given Methylprednisolone Sodium Succinate (Solu-Medrol -) 40 mg IVPUSH DAILY [facility] Last Admin: 03/21/18 10:22 Dose: Not Given Nystatin (Nystop Powder -) 1 applic TP BID [facility] Last Admin: 03/21/18 12:14 Dose: 1 applic Trazodone HCl (Desyrel -) 50 mg PO HS [facility] Last Admin: 03/21/18 00:33 Dose: 50 mg A/P Acute on Chronic Hypoxic and Hypercapneic Respiratory Failure Acute COPD Exacerbation improving r/o Pneumonia r/o Cholecystitis LV Diastolic Dysfunction Seizure Disorder Bipolar Disorder - complete empiric antibiotics - can change medrol to prednisone - inhaled bronchodilators standing and PRN - trach collar as tolerated - DVT prophylaxis
--- NOTE | 2018-03-21 14:32 | PN ---
Progress Note (short form) - Note Progress Note: Comfortable no new issues denies pain Afebrile Unable to go to retirement yesterday--- due to some social/retirement issues Vital Signs Temp 98.1 F 03/21/18 09:00 Pulse 61 03/21/18 09:00 Resp 26 H 03/21/18 11:06 BP 117/54 03/21/18 09:00 Pulse Ox 99 03/20/18 21:00 Intake & Output 03/20/18 03/21/18 03/21/18 23:59 11:59 23:59 Intake Total 1280 200 Balance 1280 200 Intake: IVPB 300 Oral 980 200 Other: Voiding Method Incontinent Incontinent # Unmeasured Voids Void 4 1 Bowel Movement No Yes Active Medications Acetaminophen (Tylenol -) 500 mg PO Q6H PRN PRN Reason: PAIN LEVEL 4 - 6 Last Admin: 03/21/18 14:26 Dose: 500 mg Aripiprazole (Abilify) 5 mg PO DAILY [facility] Last Admin: 03/21/18 09:42 Dose: 5 mg Atorvastatin Calcium (Lipitor -) 20 mg PO HS [facility] Last Admin: 03/21/18 00:32 Dose: 20 mg Bacitracin (Bacitracin -) 1 applic TP DAILY [facility] Last Admin: 03/21/18 09:42 Dose: 1 applic Carbamide Perox/Anhydrous Glycerin (Debrox -) 5 drop AD BID [facility] Last Admin: 03/21/18 09:43 Dose: 5 drop Escitalopram Oxalate (Lexapro -) 20 mg PO DAILY [facility] Last Admin: 03/21/18 09:40 Dose: 20 mg Furosemide (Lasix -) 20 mg PO DAILY [facility] Last Admin: 03/21/18 09:40 Dose: 20 mg Heparin Sodium (Porcine) (Heparin -) 5,000 unit SQ TID [facility] Last Admin: 03/21/18 14:27 Dose: 5,000 unit Hydroxyzine HCl (Atarax -) 10 mg PO TID [facility] Last Admin: 03/21/18 14:27 Dose: 10 mg Methylprednisolone Sodium Succinate (Solu-Medrol -) 40 mg IVPUSH DAILY [facility] Last Admin: 03/21/18 10:22 Dose: Not Given Nystatin (Nystop Powder -) 1 applic TP BID [facility] Last Admin: 03/21/18 12:14 Dose: 1 applic Prednisone (Deltasone -) 40 mg PO DAILY [facility] Trazodone HCl (Desyrel -) 50 mg PO HS [facility] Last Admin: 03/21/18 00:33 Dose: 50 mg CBC, BMP 03/19/18 06:00 03/19/18 06:00 Physical Examination Constitutional: Yes: No Distress, Obese. on trach collar . awake. Comfortable. Eyes: Yes: Conjunctiva Clear Neck: Yes: Supple (s/p trach-- vent), Other Cardiovascular: Yes: Regular Rate and Rhythm Respiratory: Yes: Diminished at bases Gastrointestinal: Yes: Soft, Abdomen, Obese--Non tender. Bowel sounds present Edema: No Neurological: Yes: Alert Psychiatric: Yes: Alert Assessment/Plan stable Off antibiotics Anticipate transfer to retirement tomorrow Not today--as per window caser--social/retirement issues Problem List - Problems (1) Respiratory failure Code(s): J96.90 - RESPIRATORY FAILURE, UNSP, UNSP W HYPOXIA OR HYPERCAPNIA (2) Acute on chronic respiratory failure with hypoxia and hypercapnia Code(s): J96.21 - ACUTE AND CHRONIC RESPIRATORY FAILURE WITH HYPOXIA; J96.22 - ACUTE AND CHRONIC RESPIRATORY FAILURE WITH HYPERCAPNIA (3) Bipolar 1 disorder Code(s): F31.9 - BIPOLAR DISORDER, UNSPECIFIED (4) Hypoxia Code(s): R09.02 - HYPOXEMIA (5) Right upper quadrant pain Code(s): R10.11 - RIGHT UPPER QUADRANT PAIN
[2018-03-21] MEDS: ALBUTEROL SO4 2.5/IPRATROPIUM 0.5 INH SOL 3 ML VIAL.NEB. NEB SCH ×2 (15:28→20:21)
[2018-03-21] MEDS: predniSONE 20 MG TABLET (UD) PO SCH (15:59)
[2018-03-22] MEDS: hydrOXYzine HCL 10 MG TABLET PO SCH (05:35)
[2018-03-22] MEDS: ACETAMINOPHEN 500 MG TABLET (FP) PO PRN (05:35)
[2018-03-22] MEDS: HEPARIN NA (PORCINE) 5,000 UNITS/ML 1ML VIAL SQ SCH (05:35)
[2018-03-22 07:26] LABS: BASO % 0.2 % (0-2.0); EOS % 0.2 % (0-4.5); HEMATOCRIT 35.1 % (32.4-45.2); LYMPH % 21.8 % (8-40); MCH 27.4 pg (25.7-33.7); MCHC 31.4 g/dl (32.0-36.0); MEAN CELL VOLUME 87.2 fl (80-96); MEAN PLT VOLUME 7.6 fl (7.5-11.1); MONO % 4.4 % (3.8-10.2); NEUT % 73.4 % (42.8-82.8); PLATELET COUNT 246 K/MM3 (134-434); RBC 4.02 M/mm3 (3.60-5.2); RDW 14.5 % (11.6-15.6); WHITE BLOOD COUNT 7.4 K/mm3 (4.0-10.0)
[2018-03-22] MEDS: ALBUTEROL SO4 2.5/IPRATROPIUM 0.5 INH SOL 3 ML VIAL.NEB. NEB SCH ×2 (07:35→11:10)
[2018-03-22 07:58] LABS: CALCIUM 8.9 mg/dL (8.5-10.1); CHLORIDE 102 mmol/L (98-107); POTASSIUM 4.6 mmol/L (3.5-5.1); SODIUM 142 mmol/L (136-145)
[2018-03-22 08:04] LABS: ALBUMIN 3.2 g/dl (3.4-5.0); ALK PHOS 65 U/L (45-117); ANION GAP 8 MMOL/L (8-16); BILIRUBIN,TOTAL 0.5 mg/dL (0.2-1.0); BLOOD UREA NITROGEN 17 mg/dL (7-18); CO2 32 mmol/L (21-32); CREATININE 0.4 mg/dL (0.55-1.02); GLUCOSE,RANDOM 83 mg/dL (74-106); SGOT/AST 6 U/L (15-37); SGPT/ALT 25 U/L (12-78); TOT PROT 6.2 g/dl (6.4-8.2)
[2018-03-22] MEDS ORDERED: PT OWN MED DRAWER 7, Y5N ONE (08:50)
[2018-03-22] MEDS: ESCITALOPRAM OXALATE 20 MG TABLET (FP) PO SCH (08:59)
[2018-03-22] MEDS: FUROSEMIDE 20 MG TABLET (FP) PO SCH (08:59)
[2018-03-22] MEDS: ARIPiprazole 5 MG TABLET (FP) PO SCH (08:59)
[2018-03-22] MEDS: predniSONE 20 MG TABLET (UD) PO SCH (08:59)
[2018-03-22] MEDS: NYSTATIN POWDER 100,000 UNITS/GM - 15 GM TOPICAL POWDER TP SCH (09:00)
[2018-03-22] MEDS: CARBAMIDE PEROXIDE 6.5% OTIC 15 ML BOTTLE AD SCH (09:00)
[2018-03-22] MEDS: BACITRACIN 15 GM TUBE TOPICAL OINTMENT TP SCH (09:00)
[2018-03-22] MEDS: methylPREDNISolone NA SUCC 40 MG/1 ML VIAL IVPUSH SCH (09:01)
[2018-03-22 09:04] VITALS: BP 140/70; TEMP 97.8
[2018-03-22 10:07] VITALS: PULSE 52
--- NOTE | 2018-03-22 10:13 | PN ---
Progress Note (short form) - Note Progress Note: PULMONARY RESTING COMFORTABLY EXPECTORATING SPUTUM/NO BLOOD ANICTERIC/TRACH WITH O2 COLLAR SCATTERED MINIMAL RHONCHI S1S2 BS+ OBESE NO EDEMA LABS/MEDS/NOTES/IMAGING REVIEWED Acute on Chronic Hypoxic and Hypercapneic Respiratory Failure Pneumonia Acute COPD Exacerbation improving LV Diastolic Dysfunction Seizure Disorder Bipolar Disorder - continue empiric antibiotics - discontinue medrol - inhaled bronchodilators standing and PRN - trach collar as tolerated - DVT prophylaxis - Taper prednisone as outpatient Marcus ALVA MD
--- NOTE | 2018-03-22 11:47 | PN ---
Progress Note (short form) - Note Progress Note: Comfortable no new issues Afebrile Blood work--- normalize LFTs Vital Signs Temp 97.8 F 03/22/18 09:03 Pulse 52 L 03/22/18 10:06 Resp 26 H 03/22/18 10:06 BP 140/70 03/22/18 09:03 Pulse Ox 97 03/22/18 10:08 Intake & Output 03/21/18 03/21/18 03/22/18 11:59 23:59 11:59 Intake Total 200 400 400 Balance 200 400 400 Intake: IVPB 0 Oral 200 400 400 Other: Voiding Method Incontinent Incontinent Incontinent # Unmeasured Voids Void 1 4 4 Bowel Movement Yes Yes Yes Active Medications Acetaminophen (Tylenol -) 500 mg PO Q6H PRN PRN Reason: PAIN LEVEL 4 - 6 Last Admin: 03/22/18 05:35 Dose: 500 mg Albuterol/Ipratropium (Duoneb -) 1 amp NEB RQID [facility] Last Admin: 03/22/18 11:10 Dose: 1 amp Aripiprazole (Abilify) 5 mg PO DAILY [facility] Last Admin: 03/22/18 08:59 Dose: 5 mg Atorvastatin Calcium (Lipitor -) 20 mg PO HS [facility] Last Admin: 03/21/18 21:17 Dose: 20 mg Bacitracin (Bacitracin -) 1 applic TP DAILY [facility] Last Admin: 03/22/18 09:00 Dose: 1 applic Carbamide Perox/Anhydrous Glycerin (Debrox -) 5 drop AD BID [facility] Last Admin: 03/22/18 09:00 Dose: 5 drop Escitalopram Oxalate (Lexapro -) 20 mg PO DAILY [facility] Last Admin: 03/22/18 08:59 Dose: 20 mg Furosemide (Lasix -) 20 mg PO DAILY [facility] Last Admin: 03/22/18 08:59 Dose: 20 mg Heparin Sodium (Porcine) (Heparin -) 5,000 unit SQ TID [facility] Last Admin: 03/22/18 05:35 Dose: 5,000 unit Hydroxyzine HCl (Atarax -) 10 mg PO TID [facility] Last Admin: 03/22/18 05:35 Dose: 10 mg Nystatin (Nystop Powder -) 1 applic TP BID [facility] Last Admin: 03/22/18 09:00 Dose: 1 applic Prednisone (Deltasone -) 40 mg PO DAILY [facility] Last Admin: 03/22/18 08:59 Dose: 40 mg Trazodone HCl (Desyrel -) 50 mg PO HS [facility] Last Admin: 03/21/18 21:17 Dose: 50 mg CBC, BMP 03/22/18 06:30 03/22/18 06:30 Physical Examination Constitutional: Yes: No Distress, Obese. on trach collar . awake. Comfortable. Eyes: Yes: Conjunctiva Clear Neck: Yes: Supple (s/p trach-- vent), Other Cardiovascular: Yes: Regular Rate and Rhythm Respiratory: Yes: Diminished at bases Gastrointestinal: Yes: Soft, Abdomen, Obese--Non tender. Bowel sounds present Edema: No Neurological: Yes: Alert Psychiatric: Yes: Alert Assessment/Plan stable anticipate discharge to [facility] today Discussed with nursing staff Problem List - Problems (1) Respiratory failure Code(s): J96.90 - RESPIRATORY FAILURE, UNSP, UNSP W HYPOXIA OR HYPERCAPNIA (2) Acute on chronic respiratory failure with hypoxia and hypercapnia Code(s): J96.21 - ACUTE AND CHRONIC RESPIRATORY FAILURE WITH HYPOXIA; J96.22 - ACUTE AND CHRONIC RESPIRATORY FAILURE WITH HYPERCAPNIA (3) Bipolar 1 disorder Code(s): F31.9 - BIPOLAR DISORDER, UNSPECIFIED (4) Hypoxia Code(s): R09.02 - HYPOXEMIA (5) Right upper quadrant pain Code(s): R10.11 - RIGHT UPPER QUADRANT PAIN
== END 2018-03-22 12:33 | DRG 207 ==
LOC: JER 05:59 → JERBED 07:44 → JICU 09:38 → J5S 03-15 23:20
PROVIDERS: ADMIT Internal Medicine; ATTEND Internal Medicine
PROC: 5A1955Z Respiratory Ventilation, Greater than 96 Consecutive Hours (ICD-10-PCS; principal; 2018-03-11)
PROC: 0BH17YZ Insertion of Other Device into Trachea, Via Natural or Artificial Opening (ICD-10-PCS; 2018-03-12)
PROC: 0BJ08ZZ Inspection of Tracheobronchial Tree, Via Natural or Artificial Opening Endoscopic (ICD-10-PCS; 2018-03-12)
DX: J95.03 Malfunction of tracheostomy stoma (principal); J96.21 Acute and chronic respiratory failure with hypoxia; J18.9 Pneumonia, unspecified organism; J96.22 Acute and chronic respiratory failure with hypercapnia; Z68.43 Body mass index [BMI] 50.0-59.9, adult; J44.1 Chronic obstructive pulmonary disease with (acute) exacerbation; I50.30 Unspecified diastolic (congestive) heart failure; F31.9 Bipolar disorder, unspecified; E66.01 Morbid (severe) obesity due to excess calories; Z93.0 Tracheostomy status; G40.909 Epilepsy, unspecified, not intractable, without status epilepticus; R10.11 Right upper quadrant pain; D25.9 Leiomyoma of uterus, unspecified; K81.9 Cholecystitis, unspecified
CPT/HCPCS: 36415; 36600; 71045-TC-FY; 71101-TC-RT-FY; 71250-TC; 74176-TC; 76705-TC; 76830-TC; 80053; 81003; 81015; 82375; 82803; 82962; 83050; 83735; 84100; 85025; 85027; 85610; 87040; 87070; 87077; 87086; 87186; 87205; 93005; 93010; 94002; 94640; 99285-25; J0131; J1644; J7620

== ENCOUNTER 2018-05-10 07:25 | Inpatient (IN) | payer OTHER ==
--- NOTE | 2018-05-10 07:29 | PDOC ---
History of Present Illness - General Stated Complaint: DIFFICULTY BREATHING Time Seen by Provider: 05/10/18 07:28 - History of Present Illness Initial Comments: 05/10/18 07:28 Ms. Osei is a 53 yo female w/ pmh of CHF, chronic hypercapnia, COPD, seizure disorder, bipolar disorder, hypoxic respiratory failure and trach dependency who presents for evaluation of worsening respiratory status. Patient reports she is typically ventilated while she sleeps however has needed increasing ventilatory support during the day over the past 72 hours and has had associated cough productive of greenish-yellow material. The patient denies chest pain, headache and dizziness. Denies fever, chills, nausea, vomit, diarrhea and constipation. Denies dysuria, frequency, urgency and hematuria. Past History - Past Medical History Allergies/Adverse Reactions: Allergies Allergy/AdvReac Type Severity Reaction Status Date / Time No Known Allergies Allergy Unverified 03/11/18 06:28 Home Medications: Ambulatory Orders Acetaminophen 650 mg PO DAILY 10/18/17 Aripiprazole 5 mg PO DAILY 10/18/17 Aspirin 81 mg PO DAILY 10/18/17 Ergocalciferol (Vitamin D2) [Vitamin D2] 50,000 unit PO WEEKLY 10/18/17 Furosemide [Lasix -] 20 mg PO DAILY 10/18/17 Heparin Sod,Porcine/0.9 % NaCl [Heparin 5,000 Unit/1,000 ml-Ns] 5,000 unit SCJ BID 10/18/17 Insulin Lispro [Humalog] 0 unit SQ ASDIR 10/18/17 Lactobacillus Acidophilus [Acidophilus] 1 each PO BID 10/18/17 Levothyroxine [Synthroid -] 25 mcg PO DAILY 10/18/17 Mirtazapine 15 mg PO HS 10/18/17 Sennosides [Senna -] 2 tab PO HS tablet 01/18/18 Atorvastatin Ca [Lipitor] 20 mg PO HS 01/24/18 Budesonide/Formeterol Fumarate [SYMBICORT 160/4.5mcg -] 2 inh PO BID 01/24/18 Docusate Sodium [Colace] 100 mg PO HS 01/24/18 Escitalopram Oxalate [Lexapro -] 20 mg PO DAILY 01/24/18 Magnesium Hydroxide [Milk of Magnesia] 30 mg PO ASDIR PRN 01/24/18 Polyethylene Glycol 3350 [Gavilax] 17 gm PO DAILY 01/24/18 Vit A/Vitamin D3/E/Aloe V/Zinc [Periguard Ointment] 1 applic TP BID 01/24/18 Guaifenesin/D-Methorphan Hb [Diabetic Tussin Dm -] 10 ml PO Q4H PRN ml Albuterol 2.5/Ipratropium 0.5 [Duoneb -] 1 amp NEB RQID amp 03/20/18 Nystatin Powder [Nystop Powder -] 1 applic TP BID applic 03/20/18 traZODone HCL [Desyrel -] 50 mg PO HS tablet 03/20/18 hydrOXYzine HCL [Atarax -] 25 mg PO TID 05/10/18 Cardiac Disorders: (heart failure- 2013) COPD: Yes CHF: Yes Psychiatric Problems: Yes (bipolar) Seizures: Yes Thyroid Disease: Yes - Immunization History Immunization Up to Date: Yes - Suicide/Smoking/Psychosocial Hx Smoking Status: No Smoking History: Former smoker Have you smoked in the past 12 months: No Number of Cigarettes Smoked Daily: 5 If you are a former smoker, when did you quit?: 2013 'Breaking Loose' booklet given: 05/11/16 Hx Alcohol Use: No Drug/Substance Use Hx: No Substance Use Type: None Hx Substance Use Treatment: No Review of Systems - Review of Systems Comments:: 05/10/18 07:56 GENERAL/CONSTITUTIONAL: No fever or chills. No weakness. HEAD, EYES, EARS, NOSE AND THROAT: No change in vision. No ear pain or discharge. No sore throat. CARDIOVASCULAR: No chest pain or shortness of breath RESPIRATORY: +Cough w/ SOB as described. GASTROINTESTINAL: No nausea, vomiting, diarrhea or constipation. GENITOURINARY: No dysuria, frequency, or change in urination. MUSCULOSKELETAL: No joint or muscle swelling or pain. No neck or back pain. SKIN: No rash NEUROLOGIC: No headache, vertigo, loss of consciousness, or change in strength/ sensation. ENDOCRINE: No increased thirst. No abnormal weight change HEMATOLOGIC/LYMPHATIC: No anemia, easy bleeding, or history of blood clots. ALLERGIC/IMMUNOLOGIC: No hives or skin allergy. *Physical Exam - Physical Exam Comments: 05/10/18 07:56 GENERAL: +Patient morbidly obese, Awake, alert, and fully oriented, in no acute distress HEAD: No signs of trauma, normocephalic, atraumatic EYES: PERRLA, EOMI, sclera anicteric, conjunctiva clear ENT: Auricles normal inspection, hearing grossly normal, nares patent, oropharynx clear without exudates. Moist mucosa NECK: Normal ROM, supple, no lymphadenopathy, JVD, or masses LUNGS: +Exam limited by body habitus however course lung sounds appreciated throughout lung morris. Speaks short full sentence HEART: Regular rate and rhythm, normal S1 and S2, no murmurs, rubs or gallops, peripheral pulses normal and equal bilaterally. ABDOMEN: Soft, nontender, normoactive bowel sounds. No guarding, no rebound. No masses EXTREMITIES: Normal inspection, Normal range of motion, no edema. No clubbing or cyanosis. NEUROLOGICAL: Cranial nerves II through XII grossly intact. Normal speech, normal gait, no focal sensorimotor deficits SKIN: Warm, Dry, normal turgor, no rashes or lesions noted. ED Treatment Course - LABORATORY CBC & Chemistry Diagram: 05/10/18 08:35 05/10/18 11:14 Medical Decision Making - Medical Decision Making 05/10/18 07:58 Ms. Osei is a 53 yo female w/ pmh as described who presents for evaluation of worsening SOB w/ coinciding appreciable lung congestion symptoms. Infection workup started w/ EKG / CXR / labs. Will give symptomatic relief with duonebs and re-evaluate for further care needs. 05/10/18 12:20 Patient noted to be severely hypercapnic on initial labs. Repeat following duonebs improved as below. Patient given solumedrol and azithromycin prophylactiaclly as well. CXR limited by body habitus however no acute findings noted. EKG negative for acute findings. Discussed patient with Dr. Galindo who will admit for further evaluation. *DC/Admit/Observation/Transfer Diagnosis at time of Disposition: Respiratory distress, COPD exacerbation - Discharge Dispostion Decision to Admit order: Yes - Referrals - Patient Instructions - Post Discharge Activity
[2018-05-10] MEDS ORDERED: SODIUM CHLORIDE 500 ML IV STA (07:48)
[2018-05-10] MEDS ORDERED: methylPREDNISolone NA SUCC 125 MG/2 ML VIAL IVPB ONE (08:00)
[2018-05-10] MEDS: ALBUTEROL SO4 2.5/IPRATROPIUM 0.5 INH SOL 3 ML VIAL.NEB. NEB SCH ×6 (08:00→21:10)
[2018-05-10] MEDS ORDERED: ALBUTEROL SO4 2.5/IPRATROPIUM 0.5 INH SOL 3 ML VIAL.NEB. NEB ONE ×2 (08:00→21:14)
--- NOTE | 2018-05-10 08:00 | PDOC ---
Attending Attestation - Resident Resident Name: Leonardo Griffith - ED Attending Attestation I have performed the following: I have examined & evaluated the patient, The case was reviewed & discussed with the resident, I agree w/resident's findings & plan, Exceptions are as noted - HPI HPI: 05/10/18 07:57 53 F with h/o CHF, chronic hypercapnia, COPD, seizure disorder, bipolar disorder , hypoxic respiratory failure and trach dependency, presenting to ED with SOB and cough. Pt reports that for the past 3 days her symptoms have been worsening. She notes that she typically uses vent only at night but has been having increasing usage during the daytime. Denies F/C. Denies CP. Denies any significant increase in leg swelling. - Physicial Exam PE: 05/10/18 07:58 GENERAL: Awake, alert, and fully oriented, in no acute distress. HEAD: No signs of trauma EYES: PERRLA, EOMI, sclera anicteric, conjunctiva clear ENT: Auricles normal inspection, hearing grossly normal, nares patent, oropharynx clear without exudates. Moist mucosa NECK: Nontender, no stepoffs, Normal ROM, supple, no lymphadenopathy, JVD, or masses LUNGS: Diffuse coarse breath sounds, + rhonchi, + wheezing HEART: Regular rate and rhythm, normal S1 and S2, no murmurs, rubs or gallops ABDOMEN: Soft, nontender, normoactive bowel sounds. No guarding, no rebound. No masses EXTREMITIES: Normal range of motion, no edema. No clubbing or cyanosis. No cords, erythema, or tenderness NEUROLOGICAL: Cranial nerves II through XII intact. 5/5 strength and sensation in all extremities, Normal speech, normal gait, normal cerebellar function SKIN: Warm, Dry, normal turgor, no rashes or lesions noted. - Critical Care Time Total Critical Care Time: 45 Critical Care Statement: The care of this patient involved high complexity decision making to prevent further life threatening deterioration of the patient 's condition and/or to evaluate & treat vital organ system(s) failure or risk of failure. - Medical Decision Making 05/10/18 07:59 53 F with SOB, hypoxic in ED. Wheezing and rhonchi on lung exam. Likely COPD vs CHF exacerbation. Also consider infectious process as pt hypotensive upon arrival. - Labs, cultures - BNP - VBG - CXR - Nebs, steroids
[2018-05-10 08:22] LABS: ARTERIAL BLOOD GAS BASE EXCESS 16.8 meq/l (-2-2); ARTERIAL BLOOD GAS PO2 71.8 mmHg (80-100); ARTERIAL BLOOD GAS pH 7.27 (7.35-7.45); CARBOXYHEMOGLOBIN 1.3 gm% (0.5-2.0)
[2018-05-10 08:31] LABS: ALLENS TEST POSITIVE
[2018-05-10 08:43] LABS: BASO % 0.7 % (0-2.0); EOS % 0.7 % (0-4.5); HEMATOCRIT 33.2 % (32.4-45.2); HEMOGLOBIN 10.5 GM/dL (10.7-15.3); LYMPH % 11.5 % (8-40); MCH 28.1 pg (25.7-33.7); MCHC 31.7 g/dl (32.0-36.0); MEAN CELL VOLUME 88.6 fl (80-96); MEAN PLT VOLUME 7.9 fl (7.5-11.1); MONO % 4.4 % (3.8-10.2); NEUT % 82.7 % (42.8-82.8); PLATELET COUNT 206 K/MM3 (134-434); RBC 3.75 M/mm3 (3.60-5.2); RDW 14.2 % (11.6-15.6); WHITE BLOOD COUNT 5.8 K/mm3 (4.0-10.0)
[2018-05-10] MEDS ORDERED: AZITHROMYCIN IVPB 500 MG in DEXTROSE 5%-WATER - 250 ML IVPB ONE (09:19)
[2018-05-10] MEDS ORDERED: methylPREDNISolone NA SUCC 125 MG/2 ML VIAL ONE (09:48)
[2018-05-10] MEDS ORDERED: AZITHROMYCIN IVPB 500 MG/250 ML BAG IVPB ONE (09:48)
[2018-05-10 11:30] LABS: ARTERIAL BLOOD GAS BASE EXCESS 15.5 meq/l (-2-2); ARTERIAL BLOOD GAS PO2 71.4 mmHg (80-100); ARTERIAL BLOOD GAS pH 7.42 (7.35-7.45)
[2018-05-10 11:33] LABS: ALLENS TEST POSITIVE
[2018-05-10 11:35] LABS: ARTERIAL BLOOD GAS PCO2 67.3 mmHg (35-45); INR 1.05 (0.83-1.09); PROTHROMBIN TIME (PATIENT) 12.4 SEC (9.7-13.0)
[2018-05-10 12:15] LABS: ALK PHOS 88 U/L (45-117); ANION GAP 5 MMOL/L (8-16); BILIRUBIN,TOTAL 0.6 mg/dL (0.2-1); BLOOD UREA NITROGEN 11 mg/dL (7-18); CALCIUM 8.4 mg/dL (8.5-10.1); CHLORIDE 95 mmol/L (98-107); CO2 41 mmol/L (21-32); CREATININE 0.3 mg/dL (0.55-1.3); GLUCOSE,RANDOM 99 mg/dL (74-106); N-TERMINAL BNP 104.8 pg/ml (5-125); POTASSIUM 4.3 mmol/L (3.5-5.1); SGOT/AST 9 U/L (15-37); SGPT/ALT 26 U/L (13-61); SODIUM 140 mmol/L (136-145)
[2018-05-10] MEDS ORDERED: MAGNESIUM HYDROX 2400MG/30ML ORAL SUSPENSION 30 ML CUP PO PRN (13:07)
--- NOTE | 2018-05-10 13:16 | HP ---
Admitting History and Physical - Primary Care Physician PCP: Josie Rojo - Admission History of Present Illness: 53 F with h/o CHF, chronic hypercapnia, COPD, seizure disorder, bipolar disorder , hypoxic respiratory failure and trach dependency, presenting to ED with SOB and cough. Pt reports that for the past 3 days her symptoms have been worsening. She notes that she typically uses vent only at night but has been having increasing usage during the daytime pt given steroids in er. pt seen / examined in er Discussed with er resident On vent awake feels better denies cp/abd pain/headache/ dizziness pt known to me from previous admissions History Source: Patient, Medical Record Limitations to Obtaining History: Clinical Condition - Past Medical History Pulmonary: Yes: COPD Gastrointestinal: Yes: Other (colon polyps) Heme/Onc: Yes: Anemia Psych: Yes: Bipolar Endocrine: Yes: Diabetes Mellitus - Smoking History Smoking history: Former smoker Have you smoked in the past 12 months: No Aproximately how many cigarettes per day: 5 If you are a former smoker, when did you quit?: 2013 - Alcohol/Substance Use Hx Alcohol Use: No History of Substance Use: reports: Marijuana - Social History ADL: Support Services Occupation: disabled History of Recent Travel: No Home Medications - Allergies Allergies/Adverse Reactions: Allergies Allergy/AdvReac Type Severity Reaction Status Date / Time No Known Allergies Allergy Unverified 03/11/18 06:28 - Home Medications Home Medications: Ambulatory Orders Acetaminophen 650 mg PO DAILY 10/18/17 Aripiprazole 5 mg PO DAILY 10/18/17 Aspirin 81 mg PO DAILY 10/18/17 Ergocalciferol (Vitamin D2) [Vitamin D2] 50,000 unit PO SA 10/18/17 Furosemide [Lasix -] 20 mg PO DAILY 10/18/17 Heparin Sod,Porcine/0.9 % NaCl [Heparin 5,000 Unit/1,000 ml-Ns] 5,000 unit SCJ BID 10/18/17 Insulin Lispro [Humalog] 0 unit SQ ASDIR 10/18/17 Lactobacillus Acidophilus [Acidophilus] 1 each PO BID 10/18/17 Levothyroxine [Synthroid -] 25 mcg PO DAILY 10/18/17 Mirtazapine 15 mg PO HS 10/18/17 Sennosides [Senna -] 2 tab PO HS tablet 01/18/18 Atorvastatin Ca [Lipitor] 20 mg PO HS 01/24/18 Budesonide/Formeterol Fumarate [SYMBICORT 160/4.5mcg -] 2 inh PO BID 01/24/18 Docusate Sodium [Colace] 100 mg PO HS 01/24/18 Escitalopram Oxalate [Lexapro -] 20 mg PO DAILY 01/24/18 Magnesium Hydroxide [Milk of Magnesia] 30 mg PO ASDIR PRN 01/24/18 Polyethylene Glycol 3350 [Gavilax] 17 gm PO DAILY 01/24/18 Vit A/Vitamin D3/E/Aloe V/Zinc [Periguard Ointment] 1 applic TP BID 01/24/18 Guaifenesin/D-Methorphan Hb [Diabetic Tussin Dm -] 10 ml PO Q4H PRN ml Albuterol 2.5/Ipratropium 0.5 [Duoneb -] 1 amp NEB RQID amp 03/20/18 Nystatin Powder [Nystop Powder -] 1 applic TP BID applic 03/20/18 traZODone HCL [Desyrel -] 50 mg PO HS tablet 03/20/18 hydrOXYzine HCL [Atarax -] 25 mg PO TID 05/10/18 Family Disease History - Family Disease History Family Disease History: Other: Father (: PNA), Mother (: COPD ) Review of Systems Findings/Remarks: see [place] Physical Examination Vital Signs: Vital Signs Temperature 98.0 F 05/10/18 07:30 Pulse Rate 74 05/10/18 11:39 Respiratory Rate 20 05/10/18 11:39 Blood Pressure 115/66 05/10/18 11:39 O2 Sat by Pulse Oximetry (%) 99 05/10/18 11:39 Constitutional: Yes: No Distress, Anxious Eyes: Yes: Conjunctiva Clear Neck: Yes: Other (s/p trach- vent) Cardiovascular: Yes: Regular Rate and Rhythm Respiratory: Yes: Diminished, Rhonchi Gastrointestinal: Yes: Soft Edema: No Neurological: Yes: Alert Psychiatric: Yes: Alert Labs: CBC, BMP 05/10/18 08:35 05/10/18 11:14 Imaging - Results Chest X-ray: Report Reviewed Problem List - Problems (1) COPD exacerbation Code(s): J44.1 - CHRONIC OBSTRUCTIVE PULMONARY DISEASE W (ACUTE) EXACERBATION (2) Respiratory distress Code(s): R06.03 - ACUTE RESPIRATORY DISTRESS (3) Acute on chronic respiratory failure with hypoxia and hypercapnia Code(s): J96.21 - ACUTE AND CHRONIC RESPIRATORY FAILURE WITH HYPOXIA; J96.22 - ACUTE AND CHRONIC RESPIRATORY FAILURE WITH HYPERCAPNIA (4) Bipolar 1 disorder Code(s): F31.9 - BIPOLAR DISORDER, UNSPECIFIED (5) Diabetes Code(s): E11.9 - TYPE 2 DIABETES MELLITUS WITHOUT COMPLICATIONS (6) Morbid obesity Code(s): E66.01 - MORBID (SEVERE) OBESITY DUE TO EXCESS CALORIES (7) Tracheostomy dependence Code(s): Z93.0 - TRACHEOSTOMY STATUS Assessment/Plan Vent support Steroids Meds reviewed orders written gi and dvt prophylaxis will follow
[2018-05-10] MEDS ORDERED: ENOXAPARIN NA (PORCINE) 40 MG/0.4 ML DISP.SYRIN SQ ONE (13:24)
[2018-05-10] MEDS: ENOXAPARIN NA (PORCINE) 40 MG/0.4 ML DISP.SYRIN SQ SCH (13:29)
[2018-05-10] MEDS: ERGOCALCIFEROL (VITAMIN D2) 50,000 UNIT CAPSULE (FP) PO SCH (13:59)
[2018-05-10] MEDS ORDERED: PANTOPRAZOLE 40 MG TABLET (FP) ONE (14:03)
[2018-05-10] MEDS: PANTOPRAZOLE 40 MG TABLET (FP) PO SCH (14:06)
[2018-05-10] MEDS ORDERED: HEMOQUE TEST 1 EACH EACH ONE (16:09)
[2018-05-10] MEDS: INSULIN SLIDING SCALE (NOVOLOG) 1 VIAL SQ SCH (16:46)
[2018-05-10] MEDS ORDERED: ERGOCALCIFEROL (VITAMIN D2) 50,000 UNIT CAPSULE (FP) PO ONE (18:13)
[2018-05-10] MEDS ORDERED: methylPREDNISolone NA SUCC 40 MG/1 ML VIAL ONE (18:18)
[2018-05-10] MEDS: methylPREDNISolone NA SUCC 40 MG/1 ML VIAL IVPUSH SCH (18:29)
--- NOTE | 2018-05-10 21:25 | EKG ---
Test Reason : Blood Pressure : / mmHG Vent. Rate : 066 BPM Atrial Rate : 066 BPM P-R Int : 150 ms QRS Dur : 114 ms QT Int : 386 ms P-R-T Axes : 036 008 036 degrees QTc Int : 404 ms NORMAL SINUS RHYTHM INCOMPLETE RIGHT BUNDLE BRANCH BLOCK BORDERLINE ECG WHEN COMPARED WITH ECG OF 18-MAR-2018 12:01, T WAVE VARIATION Confirmed by BUTCH ANDERSON MD ([id number]) on 05/10/2018 9:25:03 PM Referred By: Confirmed By:BUTCH ANDERSON MD
[2018-05-10] MEDS ORDERED: [UNRECOGNIZED DRUG - OTHER] SCJ SCH (22:00)
[2018-05-10] MEDS ORDERED: HEPARIN SOD PORCINE SCJ SCH (22:00)
[2018-05-10] MEDS ORDERED: NACL SCJ SCH (22:00)
[2018-05-10] MEDS: NYSTATIN POWDER 100,000 UNITS/GM - 15 GM TOPICAL POWDER TP SCH (23:58)
[2018-05-10] MEDS: MIRTAZAPINE 15 MG TABLET (FP) PO SCH (23:58)
[2018-05-10] MEDS: traZODone HCL 50 MG TABLET (FP) PO SCH (23:58)
[2018-05-10] MEDS: DOCUSATE SODIUM 100 MG CAPSULE (FP) PO SCH (23:58)
[2018-05-10] MEDS: LACTOBACILLUS ACIDOPHILUS 1 TABLET PO SCH (23:59)
[2018-05-10] MEDS: SENNOSIDES 8.6MG TABLET (FP) PO SCH (23:59)
[2018-05-10] MEDS: BUDESONIDE/FORMETEROL FUMARATE 160/4.5 mcg INHALER IH SCH (23:59)
[2018-05-10] MEDS: ATORVASTATIN CA 20 MG TABLET (FP) PO SCH (23:59)
[2018-05-11] MEDS: methylPREDNISolone NA SUCC 40 MG/1 ML VIAL IVPUSH SCH ×3 (02:50→17:05)
[2018-05-11] MEDS: hydrOXYzine HCL 25 MG TABLET (FP) PO SCH ×3 (06:05→21:23)
[2018-05-11] MEDS: LEVOTHYROXINE NA 25 MCG TABLET (FP) PO SCH (06:05)
[2018-05-11] MEDS: INSULIN SLIDING SCALE (NOVOLOG) 1 VIAL SQ SCH ×3 (06:05→17:05)
[2018-05-11 07:16] LABS: BASO % 0.1 % (0-2.0); HEMATOCRIT 33.5 % (32.4-45.2); HEMOGLOBIN 10.3 GM/dL (10.7-15.3); LYMPH % 15.6 % (8-40); MCH 26.6 pg (25.7-33.7); MCHC 30.6 g/dl (32.0-36.0); MEAN CELL VOLUME 86.9 fl (80-96); MEAN PLT VOLUME 7.9 fl (7.5-11.1); MONO % 1.5 % (3.8-10.2); NEUT % 82.8 % (42.8-82.8); PLATELET COUNT 177 K/MM3 (134-434); RBC 3.86 M/mm3 (3.60-5.2); RDW 13.9 % (11.6-15.6); WHITE BLOOD COUNT 4.5 K/mm3 (4.0-10.0)
[2018-05-11 07:22] LABS: ALBUMIN 3.2 g/dl (3.4-5.0); ALK PHOS 88 U/L (45-117); ANION GAP 7 MMOL/L (8-16); BILIRUBIN,TOTAL 0.9 mg/dL (0.2-1); BLOOD UREA NITROGEN 16 mg/dL (7-18); CALCIUM 9.4 mg/dL (8.5-10.1); CHLORIDE 96 mmol/L (98-107); CO2 37 mmol/L (21-32); CREATININE 0.5 mg/dL (0.55-1.3); GLUCOSE,RANDOM 136 mg/dL (74-106); SGOT/AST 14 U/L (15-37); SGPT/ALT 27 U/L (13-61); SODIUM 141 mmol/L (136-145); TOT PROT 6.5 g/dl (6.4-8.2)
[2018-05-11] MEDS: ALBUTEROL SO4 2.5/IPRATROPIUM 0.5 INH SOL 3 ML VIAL.NEB. NEB SCH ×4 (08:40→20:39)
[2018-05-11] MEDS ORDERED: PT OWN MED DRAWER 7, Y5N ONE ×4 (10:40→22:36)
[2018-05-11] MEDS: ASPIRIN 81 MG CHEWABLE TABLETS PO SCH (10:45)
[2018-05-11] MEDS: FUROSEMIDE 20 MG TABLET (FP) PO SCH (10:45)
[2018-05-11] MEDS: ACETAMINOPHEN 325 MG TABLET (FP) PO SCH (10:46)
[2018-05-11] MEDS: ENOXAPARIN NA (PORCINE) 40 MG/0.4 ML DISP.SYRIN SQ SCH (10:46)
[2018-05-11] MEDS: LACTOBACILLUS ACIDOPHILUS 1 TABLET PO SCH ×2 (10:46→21:19)
[2018-05-11] MEDS: ESCITALOPRAM OXALATE 20 MG TABLET (FP) PO SCH (10:46)
[2018-05-11] MEDS: PANTOPRAZOLE 40 MG TABLET (FP) PO SCH (10:46)
[2018-05-11] MEDS: NYSTATIN POWDER 100,000 UNITS/GM - 15 GM TOPICAL POWDER TP SCH ×2 (10:47→21:20)
[2018-05-11] MEDS: BUDESONIDE/FORMETEROL FUMARATE 160/4.5 mcg INHALER IH SCH ×2 (10:47→21:23)
[2018-05-11] MEDS: POLYETHYLENE GLYCOL 3350 119 GM BTL PO SCH (10:48)
[2018-05-11] MEDS: ARIPiprazole 5 MG TABLET (FP) PO SCH (10:48)
[2018-05-11] MEDS ORDERED: INSULIN (NOVOLOG) ASPART 100 UNITS/ML 10ML VIAL ONE (11:27)
--- NOTE | 2018-05-11 12:19 | PN ---
Progress Note (short form) - Note Progress Note: PULMONARY CONSULTATION DICTATED 05/11/18 IMP ACUTE ON CHRONIC HYPOXEMIC/HYPERCAPNEIC RESPIRATORY FAILURE LIKELY URI COPD H/O CHF BIPOLAR H/O PNEUMONIA MORBID OBESITY DM PLAN VENT SUPPORT ON AC MODE TRACH COLLAR TOLERATED ABX INHALED BRONCHODILATORS F/U CHEST X-RAYS SPUTUM C+S F/U ABGS DVT PROPHYLAXIS DR STEELE Problem List - Problems (1) COPD exacerbation Code(s): J44.1 - CHRONIC OBSTRUCTIVE PULMONARY DISEASE W (ACUTE) EXACERBATION (2) Respiratory distress Code(s): R06.03 - ACUTE RESPIRATORY DISTRESS (3) Acute on chronic respiratory failure with hypoxia and hypercapnia Code(s): J96.21 - ACUTE AND CHRONIC RESPIRATORY FAILURE WITH HYPOXIA; J96.22 - ACUTE AND CHRONIC RESPIRATORY FAILURE WITH HYPERCAPNIA (4) Bipolar 1 disorder Code(s): F31.9 - BIPOLAR DISORDER, UNSPECIFIED (5) Depression Code(s): F32.9 - MAJOR DEPRESSIVE DISORDER, SINGLE EPISODE, UNSPECIFIED (6) Diabetes Code(s): E11.9 - TYPE 2 DIABETES MELLITUS WITHOUT COMPLICATIONS (7) Morbid obesity Code(s): E66.01 - MORBID (SEVERE) OBESITY DUE TO EXCESS CALORIES (8) Tracheostomy dependence Code(s): Z93.0 - TRACHEOSTOMY STATUS
--- NOTE | 2018-05-11 12:41 | PN ---
Progress Note (short form) - Note Progress Note: feels comfortable SOB on vent Vital Signs - 24 hr 05/10/18 05/10/18 05/10/18 13:47 14:08 16:35 Temperature Pulse Rate Pulse Rate [ 74 Apical] Respiratory 20 20 16 Rate Blood Pressure Blood Pressure 105/43 L [Left Arm] O2 Sat by Pulse 95 Oximetry (%) 05/10/18 05/10/18 05/10/18 19:50 21:11 21:24 Temperature 98.6 F Pulse Rate Pulse Rate [ 60 Apical] Respiratory 16 16 16 Rate Blood Pressure Blood Pressure 96/45 L [Left Arm] O2 Sat by Pulse 98 Oximetry (%) 05/10/18 05/11/18 05/11/18 23:12 01:00 01:25 Temperature 98.4 F Pulse Rate 53 L Pulse Rate [ Apical] Respiratory 20 17 Rate Blood Pressure 125/71 Blood Pressure [Left Arm] O2 Sat by Pulse 95 Oximetry (%) 05/11/18 05/11/18 05/11/18 01:26 04:15 05:44 Temperature Pulse Rate 81 Pulse Rate [ Apical] Respiratory 17 22 H Rate Blood Pressure Blood Pressure [Left Arm] O2 Sat by Pulse 97 95 Oximetry (%) 05/11/18 05/11/18 05/11/18 06:00 09:40 09:41 Temperature 98.1 F Pulse Rate 55 L 69 Pulse Rate [ Apical] Respiratory 22 H 27 H Rate Blood Pressure 142/79 Blood Pressure [Left Arm] O2 Sat by Pulse 93 L Oximetry (%) 05/11/18 10:00 Temperature 98.2 F Pulse Rate 62 Pulse Rate [ Apical] Respiratory 20 Rate Blood Pressure 109/60 Blood Pressure [Left Arm] O2 Sat by Pulse Oximetry (%) Current Medications Generic Name Dose Route Start Last Admin Trade Name Freq PRN Reason Stop Dose Admin Acetaminophen 650 mg 05/11/18 10:00 05/11/18 10:46 Tylenol - PO 650 mg DAILY NOELLE Administration Albuterol/Ipratropium 1 amp 05/10/18 16:00 05/11/18 12:37 Duoneb - NEB 1 amp RQID NOELLE Administration Aripiprazole 5 mg 05/11/18 10:00 05/11/18 10:48 Abilify PO 5 mg DAILY NOELLE Administration Aspirin 81 mg 05/11/18 10:00 05/11/18 10:45 Asa - PO 81 mg DAILY [facility] Administration Atorvastatin Calcium 20 mg 05/10/18 22:00 05/10/18 23:59 Lipitor - PO 20 mg HS NOELLE Administration Budesonide/Formoterol Fumarate 2 puff 05/10/18 22:00 05/11/18 10:47 Symbicort 160/4.5mcg - IH 2 units BID NOELLE Administration Docusate Sodium 100 mg 05/10/18 22:00 05/10/18 23:58 Colace - PO 100 mg HS NOELLE Administration Enoxaparin Sodium 40 mg 05/10/18 13:15 05/11/18 10:46 Lovenox - SQ 40 mg DAILY [facility] Administration Ergocalciferol 50,000 unit 05/10/18 13:15 Drisdol - PO Q7D@1000 [facility] Escitalopram Oxalate 20 mg 05/11/18 10:00 05/11/18 10:46 Lexapro - PO 20 mg DAILY NOELLE Administration Furosemide 20 mg 05/11/18 10:00 05/11/18 10:45 Lasix - PO 20 mg DAILY [facility] Administration Hydroxyzine HCl 25 mg 05/11/18 06:00 05/11/18 06:05 Atarax - PO 25 mg TID [facility] Administration Insulin Aspart 1 vial 05/10/18 16:30 05/11/18 11:29 Novolog Vial Sliding Scale - SQ 3 units TIDAC [facility] Administration Protocol Lactobacillus Acidophilus 1 tab 05/10/18 22:00 05/11/18 10:46 Bacid - PO 1 tab BID [facility] Administration Levothyroxine Sodium 25 mcg 05/11/18 07:00 05/11/18 06:05 Synthroid - PO 25 mcg DAILY@0700 [facility] Administration Magnesium Hydroxide 30 ml 05/10/18 13:07 Milk Of Magnesia - PO ASDIR PRN CONSTIPATION Methylprednisolone Sodium Succinate 40 mg 05/10/18 18:00 05/11/18 10:46 Solu-Medrol - IVPUSH 40 mg Q8H-IV [facility] Administration Mirtazapine 15 mg 05/10/18 22:00 05/10/18 23:58 Remeron - PO 15 mg HS [facility] Administration Non-Formulary Medication 1 applic 05/10/18 22:00 Vit A/Vitamin D3/E/Aloe V/Zinc [Periguard Ointment] TP BID [facility] Nystatin 1 applic 05/10/18 22:00 05/11/18 10:47 Nystop Powder - TP 1 applic BID NOELLE Administration Pantoprazole Sodium 40 mg 05/10/18 13:30 05/11/18 10:46 Protonix - PO 40 mg DAILY [facility] Administration Polyethylene Glycol 17 gm 05/11/18 10:00 05/11/18 10:48 Miralax (For Daily Use) - PO 17 gm DAILY [facility] Administration Senna 2 tab 05/10/18 22:00 05/10/18 23:59 Senna - PO 2 tab HS NOELLE Administration Trazodone HCl 50 mg 05/10/18 22:00 05/10/18 23:58 Desyrel - PO 50 mg HS [facility] Administration Laboratory Results - last 24 hr 05/10/18 05/11/18 05/11/18 16:12 06:04 06:20 WBC 4.5 RBC 3.86 Hgb 10.3 L Hct 33.5 MCV 86.9 MCH 26.6 MCHC 30.6 L RDW 13.9 Plt Count 177 MPV 7.9 Absolute Neuts (auto) 3.7 Neutrophils % 82.8 Lymphocytes % 15.6 D Monocytes % 1.5 L Eosinophils % 0.0 D Basophils % 0.1 Nucleated RBC % 0 Sodium Potassium Chloride Carbon Dioxide Anion Gap BUN Creatinine Creat Clearance w eGFR POC Glucometer [phone] Random Glucose Calcium Total Bilirubin AST ALT Alkaline Phosphatase Total Protein Albumin 05/11/18 05/11/18 06:20 11:25 WBC RBC Hgb Hct MCV MCH MCHC RDW Plt Count MPV Absolute Neuts (auto) Neutrophils % Lymphocytes % Monocytes % Eosinophils % Basophils % Nucleated RBC % Sodium 141 Potassium 4.0 Chloride 96 L Carbon Dioxide 37 H Anion Gap 7 L BUN 16 Creatinine 0.5 L Creat Clearance w eGFR > 60 POC Glucometer 171 Random Glucose 136 H Calcium 9.4 Total Bilirubin 0.9 AST 14 L ALT 27 Alkaline Phosphatase 88 Total Protein 6.5 Albumin 3.2 L S1 S2 RRR Lungs decreased ronchi B/L Edema+ abd- soft, obese, NT A/P on vent continue with meds Pulmonary follow up on Solumedrol Protonix Problem List - Problems (1) COPD exacerbation Code(s): J44.1 - CHRONIC OBSTRUCTIVE PULMONARY DISEASE W (ACUTE) EXACERBATION (2) Respiratory distress Code(s): R06.03 - ACUTE RESPIRATORY DISTRESS (3) Acute respiratory failure Code(s): J96.00 - ACUTE RESPIRATORY FAILURE, UNSP W HYPOXIA OR HYPERCAPNIA Qualifiers: Respiratory failure complication: hypoxia Qualified Code(s): J96.01 - Acute respiratory failure with hypoxia (4) Bipolar 1 disorder Code(s): F31.9 - BIPOLAR DISORDER, UNSPECIFIED
--- NOTE | 2018-05-11 12:58 | CONS ---
DATE OF CONSULTATION: 05/11/2018 REFERRING PHYSICIAN: Josie Rojo MD The patient is a 53-year-old white female, known to me from previous hospitalization, with past medical history of chronic respiratory failure, on ventilatory support, occasional trach collar, chronic hypercapnia, COPD, seizure disorder, bipolar. The patient is a care home resident, transferred to [facility] secondary to increasing shortness of breath, cough productive of yellow sputum. Patient apparently, for the past 3 days, has progressively worsening symptoms. As noted, she uses her vent at night, on trach collar during the day. At the care home, she is requiring increasing frequency of ventilatory support, at which time she presented to the emergency room. In the ER, she was started on antibiotic therapy. She was also started on IV steroids and bronchodilators, with some clinical improvement, transferred to medical floor for further management. Chest x-ray on admission did not reveal any evidence of acute pneumonia. Past medical history, again, includes chronic respiratory failure, on ventilatory support, COPD, chronic hypercapnia, seizure disorder, bipolar, CHF, pneumonia, anemia, diabetes. Current medications include Symbicort, Solu-Medrol, Tylenol, Lovenox, Lexapro, Remeron, Desyrel, Bacid, Abilify, Atarax, DuoNeb, Colace, milk of magnesia, senna, Lipitor, NovoLog, Lasix, aspirin, pantoprazole, Synthroid, and Drisdol. REVIEW OF SYSTEMS: Positive shortness of breath, positive sputum, positive chest tightness. No fever, no chills, no hemoptysis, no abdominal pain. PHYSICAL EXAMINATION: General: The patient is an obese female, well developed, awake, alert, on ventilatory support, appears comfortable, in no acute respiratory distress. Vital Signs: She is currently afebrile. Blood pressure is 109/60. Respiratory rate 20. O2 saturation is 93% on vent support. HEENT: Normocephalic, atraumatic. Neck: Supple. Heart: Regular, S1, S2. Chest: Scattered bilateral rhonchi. Abdomen: Soft. Bowel sounds are positive. Extremities: No cyanosis, edema. LABORATORY DATA: Blood gas: pH initially 7.27, pCO2 of 103, a pO2 of 71, bicarbonate 46, saturation 94, that was on assist-control mode, 40% oxygen, tidal volume of 350, and a PEEP of 5, unknown rate. Followup in the afternoon, pH 7.42, pCO2 of 67, pO2 of 71, bicarbonate 42, saturation of 93, again on unknown quantity of oxygen. Chest x-ray: No acute infiltrates or effusions. INR is 1.05, WBC is 4.5, hemoglobin 10.3, hematocrit 33.5, BUN 16, creatinine 0.5. IMPRESSION: Acute on chronic hypoxemic hypercapnic respiratory failure secondary to likely: 1. Chronic obstructive pulmonary disease exacerbation. 2. Likely upper respiratory infection. 3. Congestive heart failure. 4. Diabetes. 5. Hypertension. 6. Bipolar. PLAN: IV steroids, inhaled bronchodilators, antibiotics, vent support on assist-control mode, attempt to alternate with trach collar as tolerated, obtain sputum for C&S, pulmonary toilet, frequent suctioning. LORA STEELE M.D. [id number]
[2018-05-11 15:45] VITALS: BMI 60.4
[2018-05-11] MEDS: traZODone HCL 50 MG TABLET (FP) PO SCH (21:20)
[2018-05-11] MEDS: SENNOSIDES 8.6MG TABLET (FP) PO SCH (21:20)
[2018-05-11] MEDS: MIRTAZAPINE 15 MG TABLET (FP) PO SCH (21:20)
[2018-05-11] MEDS: DOCUSATE SODIUM 100 MG CAPSULE (FP) PO SCH (21:20)
[2018-05-11] MEDS: ATORVASTATIN CA 20 MG TABLET (FP) PO SCH (21:20)
[2018-05-12] MEDS: methylPREDNISolone NA SUCC 40 MG/1 ML VIAL IVPUSH SCH ×3 (02:11→17:19)
[2018-05-12] MEDS ORDERED: PT OWN MED DRAWER 7, Y5N ONE ×2 (05:28→10:41)
[2018-05-12] MEDS: hydrOXYzine HCL 25 MG TABLET (FP) PO SCH ×3 (06:09→21:04)
[2018-05-12] MEDS: INSULIN SLIDING SCALE (NOVOLOG) 1 VIAL SQ SCH ×3 (06:10→17:19)
[2018-05-12] MEDS: LEVOTHYROXINE NA 25 MCG TABLET (FP) PO SCH (06:13)
[2018-05-12] MEDS ORDERED: VANCOMYCIN 1,500 MG in DEXTROSE 5%-WATER - 500 ML IVPB ONE (07:15)
[2018-05-12] MEDS: ALBUTEROL SO4 2.5/IPRATROPIUM 0.5 INH SOL 3 ML VIAL.NEB. NEB SCH ×4 (08:00→16:15)
[2018-05-12] MEDS: PANTOPRAZOLE 40 MG TABLET (FP) PO SCH (10:58)
[2018-05-12] MEDS: FUROSEMIDE 20 MG TABLET (FP) PO SCH (10:58)
[2018-05-12] MEDS: LACTOBACILLUS ACIDOPHILUS 1 TABLET PO SCH ×2 (10:58→21:04)
[2018-05-12] MEDS: ESCITALOPRAM OXALATE 20 MG TABLET (FP) PO SCH (10:58)
[2018-05-12] MEDS: ARIPiprazole 5 MG TABLET (FP) PO SCH (10:58)
[2018-05-12] MEDS: ENOXAPARIN NA (PORCINE) 40 MG/0.4 ML DISP.SYRIN SQ SCH (10:58)
[2018-05-12] MEDS: ASPIRIN 81 MG CHEWABLE TABLETS PO SCH (10:58)
[2018-05-12] MEDS: ACETAMINOPHEN 325 MG TABLET (FP) PO SCH (10:59)
[2018-05-12] MEDS: BUDESONIDE/FORMETEROL FUMARATE 160/4.5 mcg INHALER IH SCH ×2 (10:59→21:05)
[2018-05-12] MEDS: POLYETHYLENE GLYCOL 3350 119 GM BTL PO SCH (11:00)
[2018-05-12] MEDS: NYSTATIN POWDER 100,000 UNITS/GM - 15 GM TOPICAL POWDER TP SCH ×2 (11:02→21:04)
--- NOTE | 2018-05-12 11:34 | PN ---
Progress Note (short form) - Note Progress Note: feels uncomfortable SOB on vent vitals noted S1 S2 RRR Lungs decreased ronchi B/L Edema+ abd- soft, obese, NT A/P on vent continue with meds on Solumedrol Protonix Problem List - Problems (1) COPD exacerbation Code(s): J44.1 - CHRONIC OBSTRUCTIVE PULMONARY DISEASE W (ACUTE) EXACERBATION (2) Respiratory distress Code(s): R06.03 - ACUTE RESPIRATORY DISTRESS (3) Acute respiratory failure Code(s): J96.00 - ACUTE RESPIRATORY FAILURE, UNSP W HYPOXIA OR HYPERCAPNIA Qualifiers: Respiratory failure complication: hypoxia Qualified Code(s): J96.01 - Acute respiratory failure with hypoxia (4) Bipolar 1 disorder Code(s): F31.9 - BIPOLAR DISORDER, UNSPECIFIED
--- NOTE | 2018-05-12 13:02 | PN ---
Progress Note, Physician History of Present Illness: pulmonary alert on trach collar,-resp distress,+ congestion - Current Medication List Current Medications: Active Medications Acetaminophen (Tylenol -) 650 mg PO DAILY [facility] Last Admin: 05/12/18 10:59 Dose: 650 mg Albuterol/Ipratropium (Duoneb -) 1 amp NEB RQID [facility] Last Admin: 05/12/18 12:30 Dose: 1 amp Aripiprazole (Abilify) 5 mg PO DAILY [facility] Last Admin: 05/12/18 10:58 Dose: 5 mg Aspirin (Asa -) 81 mg PO DAILY [facility] Last Admin: 05/12/18 10:58 Dose: 81 mg Atorvastatin Calcium (Lipitor -) 20 mg PO HS [facility] Last Admin: 05/11/18 21:20 Dose: 20 mg Budesonide/Formoterol Fumarate (Symbicort 160/4.5mcg -) 2 puff IH BID [facility] Last Admin: 05/12/18 10:59 Dose: 2 puff Docusate Sodium (Colace -) 100 mg PO [facility] Last Admin: 05/11/18 21:20 Dose: 100 mg Enoxaparin Sodium (Lovenox -) 40 mg SQ DAILY [facility] Last Admin: 05/12/18 10:58 Dose: 40 mg Ergocalciferol (Drisdol -) 50,000 unit PO Q7D@1000 [facility] Escitalopram Oxalate (Lexapro -) 20 mg PO DAILY [facility] Last Admin: 05/12/18 10:58 Dose: 20 mg Furosemide (Lasix -) 20 mg PO DAILY [facility] Last Admin: 05/12/18 10:58 Dose: 20 mg Hydroxyzine HCl (Atarax -) 25 mg PO TID [facility] Last Admin: 05/12/18 06:09 Dose: 25 mg Insulin Aspart (Novolog Vial Sliding Scale -) 1 vial SQ TIDAC [facility]; Protocol Last Admin: 05/12/18 06:10 Dose: Not Given Lactobacillus Acidophilus (Bacid -) 1 tab PO BID [facility] Last Admin: 05/12/18 10:58 Dose: 1 tab Levothyroxine Sodium (Synthroid -) 25 mcg PO DAILY@0700 [facility] Last Admin: 05/12/18 06:13 Dose: 25 mcg Magnesium Hydroxide (Milk Of Magnesia -) 30 ml PO ASDIR PRN PRN Reason: CONSTIPATION Methylprednisolone Sodium Succinate (Solu-Medrol -) 40 mg IVPUSH Q8H-IV [facility] Last Admin: 05/12/18 10:58 Dose: 40 mg Mirtazapine (Remeron -) 15 mg PO HS [facility] Last Admin: 05/11/18 21:20 Dose: 15 mg Nystatin (Nystop Powder -) 1 applic TP BID [facility] Last Admin: 05/12/18 11:02 Dose: 1 applic Pantoprazole Sodium (Protonix -) 40 mg PO DAILY [facility] Last Admin: 05/12/18 10:58 Dose: 40 mg Polyethylene Glycol (Miralax (For Daily Use) -) 17 gm PO DAILY [facility] Last Admin: 05/12/18 11:00 Dose: 17 gm Senna (Senna -) 2 tab PO HS [facility] Last Admin: 05/11/18 21:20 Dose: 2 tab Trazodone HCl (Desyrel -) 50 mg PO [facility] Last Admin: 05/11/18 21:20 Dose: 50 mg - Objective Vital Signs: Vital Signs Temperature 98.1 F 05/12/18 10:00 Pulse Rate 59 L 05/12/18 10:00 Respiratory Rate 22 H 05/12/18 10:00 Blood Pressure 134/75 05/12/18 10:00 O2 Sat by Pulse Oximetry (%) 98 05/12/18 09:20 Constitutional: Yes: Well Nourished, Calm, Obese Eyes: Yes: WNL HENT: Yes: WNL Neck: Yes: Supple (trach) Cardiovascular: Yes: Regular Rate and Rhythm, S1, S2 Respiratory: Yes: Rhonchi (scattered butch rhonchi) Gastrointestinal: Yes: Normal Bowel Sounds, Soft Extremities: Yes: WNL Edema: Yes Labs: CBC, BMP Problem List - Problems (1) COPD exacerbation Code(s): J44.1 - CHRONIC OBSTRUCTIVE PULMONARY DISEASE W (ACUTE) EXACERBATION (2) Respiratory distress Code(s): R06.03 - ACUTE RESPIRATORY DISTRESS (3) Acute on chronic respiratory failure with hypoxia and hypercapnia Code(s): J96.21 - ACUTE AND CHRONIC RESPIRATORY FAILURE WITH HYPOXIA; J96.22 - ACUTE AND CHRONIC RESPIRATORY FAILURE WITH HYPERCAPNIA (4) Bipolar 1 disorder Code(s): F31.9 - BIPOLAR DISORDER, UNSPECIFIED (5) Depression Code(s): F32.9 - MAJOR DEPRESSIVE DISORDER, SINGLE EPISODE, UNSPECIFIED (6) Diabetes Code(s): E11.9 - TYPE 2 DIABETES MELLITUS WITHOUT COMPLICATIONS (7) Morbid obesity Code(s): E66.01 - MORBID (SEVERE) OBESITY DUE TO EXCESS CALORIES (8) Tracheostomy dependence Code(s): Z93.0 - TRACHEOSTOMY STATUS Assessment/Plan IMP ACUTE ON CHRONIC HYPOXEMIC/HYPERCAPNEIC RESPIRATORY FAILURE LIKELY URI COPD H/O CHF BIPOLAR H/O PNEUMONIA MORBID OBESITY DM PLAN VENT SUPPORT ON AC MODE TRACH COLLAR TOLERATED ABX INHALED BRONCHODILATORS F/U CHEST X-RAYS F/U ABGS DVT PROPHYLAXIS DR STEELE Problem List - Problems (1) COPD exacerbation Code(s): J44.1 - CHRONIC OBSTRUCTIVE PULMONARY DISEASE W (ACUTE) EXACERBATION (2) Respiratory distress Code(s): R06.03 - ACUTE RESPIRATORY DISTRESS (3) Acute on chronic respiratory failure with hypoxia and hypercapnia Code(s): J96.21 - ACUTE AND CHRONIC RESPIRATORY FAILURE WITH HYPOXIA; J96.22 - ACUTE AND CHRONIC RESPIRATORY FAILURE WITH HYPERCAPNIA (4) Bipolar 1 disorder Code(s): F31.9 - BIPOLAR DISORDER, UNSPECIFIED (5) Depression Code(s): F32.9 - MAJOR DEPRESSIVE DISORDER, SINGLE EPISODE, UNSPECIFIED (6) Diabetes Code(s): E11.9 - TYPE 2 DIABETES MELLITUS WITHOUT COMPLICATIONS (7) Morbid obesity Code(s): E66.01 - MORBID (SEVERE) OBESITY DUE TO EXCESS CALORIES (8) Tracheostomy dependence Code(s): Z93.0 - TRACHEOSTOMY STATUS
--- NOTE | 2018-05-12 17:04 | CON.ID ---
Consult Consult Specialty:: infectious disease Referred by:: dr gama Reason for Consultation:: positive blood culture - History of Present Illness Chief Complaint: wheezing History of Present Illness: 53 [place], obesity, trach- admitted with wheezing from [place] on 05/10 she usually uses the ventilator at night only but was now back on vent 24 hours a day due to wheezing no fevers +uri symptoms she was seen by pulmonary after admission and strated on iv steroids and nebs for copd exacerbation cxray no acute infiltrate this am noted to hve 1 of 4 blood cultures with gpc clusters- she was given a one time dose of vancomycin currently feels well, off the vent on trach collar wheezing has diminished - History Source History Provided By: Patient, Medical Record Limitations to Obtaining History: No Limitations - Past Medical History Pulmonary: Yes: COPD, O2 Dependent, Pneumonia Gastrointestinal: Yes: Other (colon polyps) Psych: Yes: Bipolar Endocrine: Yes: Diabetes Mellitus - Past Surgical History Additional Surgical History: tracheostomy - Alcohol/Substance Use Hx Alcohol Use: No History of Substance Use: reports: Marijuana - Smoking History Smoking history: Former smoker Have you smoked in the past 12 months: No Aproximately how many cigarettes per day: 5 If you are a former smoker, when did you quit?: 2013 - Social History Usual Living Arrangement: Alf ADL: Support Services Occupation: disabled History of Recent Travel: No Home Medications - Allergies Allergies/Adverse Reactions: Allergies Allergy/AdvReac Type Severity Reaction Status Date / Time No Known Allergies Allergy Unverified 03/11/18 06:28 - Home Medications Home Medications: Ambulatory Orders Acetaminophen 650 mg PO DAILY 10/18/17 Aripiprazole 5 mg PO DAILY 10/18/17 Aspirin 81 mg PO DAILY 10/18/17 Ergocalciferol (Vitamin D2) [Vitamin D2] 50,000 unit PO SA 10/18/17 Furosemide [Lasix -] 20 mg PO DAILY 10/18/17 Heparin Sod,Porcine/0.9 % NaCl [Heparin 5,000 Unit/1,000 ml-Ns] 5,000 unit SCJ BID 10/18/17 Insulin Lispro [Humalog] 0 unit SQ ASDIR 10/18/17 Lactobacillus Acidophilus [Acidophilus] 1 each PO BID 10/18/17 Levothyroxine [Synthroid -] 25 mcg PO DAILY 10/18/17 Mirtazapine 15 mg PO HS 10/18/17 Sennosides [Senna -] 2 tab PO HS tablet 01/18/18 Atorvastatin Ca [Lipitor] 20 mg PO HS 01/24/18 Budesonide/Formeterol Fumarate [SYMBICORT 160/4.5mcg -] 2 inh PO BID 01/24/18 Docusate Sodium [Colace] 100 mg PO HS 01/24/18 Escitalopram Oxalate [Lexapro -] 20 mg PO DAILY 01/24/18 Magnesium Hydroxide [Milk of Magnesia] 30 mg PO ASDIR PRN 01/24/18 Polyethylene Glycol 3350 [Gavilax] 17 gm PO DAILY 01/24/18 Vit A/Vitamin D3/E/Aloe V/Zinc [Periguard Ointment] 1 applic TP BID 01/24/18 Guaifenesin/D-Methorphan Hb [Diabetic Tussin Dm -] 10 ml PO Q4H PRN ml Albuterol 2.5/Ipratropium 0.5 [Duoneb -] 1 amp NEB RQID amp 03/20/18 Nystatin Powder [Nystop Powder -] 1 applic TP BID applic 03/20/18 traZODone HCL [Desyrel -] 50 mg PO HS tablet 03/20/18 hydrOXYzine HCL [Atarax -] 25 mg PO TID 05/10/18 Family Disease History - Family Disease History Family Disease History: Other: Father (: PNA), Mother (: COPD ) Review of Systems - Review of Systems Constitutional: reports: No Symptoms. denies: Chills, Diaphoresis, Fever Eyes: reports: No Symptoms HENT: reports: No Symptoms Neck: reports: Other (pain at trach site). denies: Tenderness Respiratory: reports: Wheezing Gastrointestinal: reports: No Symptoms Genitourinary: reports: No Symptoms Physical Exam Vital Signs: Vital Signs Temperature 98.1 F 05/12/18 10:00 Pulse Rate 59 L 05/12/18 10:00 Respiratory Rate 22 H 05/12/18 10:00 Blood Pressure 134/75 05/12/18 10:00 O2 Sat by Pulse Oximetry (%) 98 05/12/18 09:20 Constitutional: Yes: No Distress, Calm Eyes: Yes: Conjunctiva Clear HENT: Yes: Atraumatic Neck: Yes: Supple, Other (trach) Cardiovascular: Yes: Regular Rate and Rhythm Respiratory: Yes: CTA Bilaterally, Diminished. No: Wheezes Gastrointestinal: Yes: Normal Bowel Sounds, Soft Edema: No Labs: CBC, BMP 05/11/18 06:20 05/11/18 06:20 Microbiology 05/10/18 08:35 Blood - Peripheral Venous Blood Culture - Preliminary NO GROWTH OBTAINED AFTER 48 HOURS, INCUBATION TO CONTINUE FOR 3 DAYS. 05/10/18 08:40 Blood - Peripheral Venous Blood Culture - Preliminary Pending Organism Imaging - Results Chest X-ray: Report Reviewed, Image Reviewed Problem List - Problems (1) Positive blood culture Code(s): R78.81 - BACTEREMIA (2) COPD exacerbation Code(s): J44.1 - CHRONIC OBSTRUCTIVE PULMONARY DISEASE W (ACUTE) EXACERBATION (3) Morbid obesity Code(s): E66.01 - MORBID (SEVERE) OBESITY DUE TO EXCESS CALORIES (4) MDRO (multiple drug resistant organisms) resistance Code(s): Z16.35 - RESISTANCE TO MULTIPLE ANTIMICROBIAL DRUGS Assessment/Plan suspect blood culture is a contaminant one bottle, 48 ours later she got vancomycin this am,will hold on further antiibotics f/u culture in am copd exacerbation appears to be improving chronic resp failure continue contact isolation for MDRO
[2018-05-12] MEDS ORDERED: INSULIN (NOVOLOG) ASPART 100 UNITS/ML 10ML VIAL ONE (17:18)
[2018-05-12] MEDS: PATIENT'S OWN MEDICATION (NON-FORMULARY) (Vit A/Vitamin D3/E/Aloe V/Zinc [Periguard Ointme TP SCH ×4 (19:08→22:26)
[2018-05-12] MEDS: MIRTAZAPINE 15 MG TABLET (FP) PO SCH (21:04)
[2018-05-12] MEDS: ATORVASTATIN CA 20 MG TABLET (FP) PO SCH (21:04)
[2018-05-12] MEDS: traZODone HCL 50 MG TABLET (FP) PO SCH (21:04)
[2018-05-12] MEDS: SENNOSIDES 8.6MG TABLET (FP) PO SCH (21:04)
[2018-05-12] MEDS: DOCUSATE SODIUM 100 MG CAPSULE (FP) PO SCH (21:04)
[2018-05-13] MEDS: methylPREDNISolone NA SUCC 40 MG/1 ML VIAL IVPUSH SCH ×3 (01:32→17:06)
[2018-05-13] MEDS ORDERED: INSULIN (NOVOLOG) ASPART 100 UNITS/ML 10ML VIAL ONE ×3 (05:34→06:53)
[2018-05-13] MEDS: LEVOTHYROXINE NA 25 MCG TABLET (FP) PO SCH (06:02)
[2018-05-13] MEDS: hydrOXYzine HCL 25 MG TABLET (FP) PO SCH ×3 (06:02→21:06)
[2018-05-13] MEDS: INSULIN SLIDING SCALE (NOVOLOG) 1 VIAL SQ SCH ×3 (06:02→16:28)
[2018-05-13] MEDS ORDERED: PT OWN MED DRAWER 7, Y5N ONE ×4 (06:52→20:54)
[2018-05-13] MEDS ORDERED: INSULIN (LEVEMIR) 100 UNITS/ML UNITS SQ ONE (06:53)
[2018-05-13] MEDS: ALBUTEROL SO4 2.5/IPRATROPIUM 0.5 INH SOL 3 ML VIAL.NEB. NEB SCH ×4 (08:32→21:35)
[2018-05-13] MEDS: FUROSEMIDE 20 MG TABLET (FP) PO SCH (09:30)
[2018-05-13] MEDS: ASPIRIN 81 MG CHEWABLE TABLETS PO SCH (09:30)
[2018-05-13] MEDS: PANTOPRAZOLE 40 MG TABLET (FP) PO SCH (09:30)
[2018-05-13] MEDS: ESCITALOPRAM OXALATE 20 MG TABLET (FP) PO SCH (09:30)
[2018-05-13] MEDS: ACETAMINOPHEN 325 MG TABLET (FP) PO SCH (09:30)
[2018-05-13] MEDS: ARIPiprazole 5 MG TABLET (FP) PO SCH (09:31)
[2018-05-13] MEDS: BUDESONIDE/FORMETEROL FUMARATE 160/4.5 mcg INHALER IH SCH ×2 (09:31→21:07)
[2018-05-13] MEDS: POLYETHYLENE GLYCOL 3350 119 GM BTL PO SCH (09:32)
[2018-05-13] MEDS: ENOXAPARIN NA (PORCINE) 40 MG/0.4 ML DISP.SYRIN SQ SCH (09:32)
[2018-05-13] MEDS: LACTOBACILLUS ACIDOPHILUS 1 TABLET PO SCH ×2 (09:34→21:06)
[2018-05-13] MEDS ORDERED: ALBUTEROL SO4 0.083% IH SOL 2.5 MG/3 ML VIAL.NEB. NEB PRN (11:32)
--- NOTE | 2018-05-13 11:32 | PN ---
Progress Note (short form) - Note Progress Note: PULMONARY Feels "miserable today." +cough and wheezing. Vented on volume assist control. Vital Signs Period Temp Pulse Resp BP Sys/Petersen Pulse Ox Last 24 Hr 97.9 F-98.3 F 59-68 17-28 114-148/64-78 97 Gen: vented, tachypneic Heart: RRR Lung: bilateral rhonchi, wheezes Abd: soft, nontender Ext: no edema CBC, BMP 05/11/18 06:20 05/11/18 06:20 Active Medications Acetaminophen (Tylenol -) 650 mg PO DAILY [facility] Last Admin: 05/13/18 09:30 Dose: 650 mg Albuterol/Ipratropium (Duoneb -) 1 amp NEB RQID [facility] Last Admin: 05/13/18 11:29 Dose: 1 amp Aripiprazole (Abilify) 5 mg PO DAILY [facility] Last Admin: 05/13/18 09:31 Dose: 5 mg Aspirin (Asa -) 81 mg PO DAILY [facility] Last Admin: 05/13/18 09:30 Dose: 81 mg Atorvastatin Calcium (Lipitor -) 20 mg PO HS [facility] Last Admin: 05/12/18 21:04 Dose: 20 mg Budesonide/Formoterol Fumarate (Symbicort 160/4.5mcg -) 2 puff IH BID [facility] Last Admin: 05/13/18 09:31 Dose: 2 puff Docusate Sodium (Colace -) 100 mg PO HS [facility] Last Admin: 05/12/18 21:04 Dose: 100 mg Enoxaparin Sodium (Lovenox -) 40 mg SQ DAILY [facility] Last Admin: 05/13/18 09:32 Dose: 40 mg Ergocalciferol (Drisdol -) 50,000 unit PO Q7D@1000 [facility] Escitalopram Oxalate (Lexapro -) 20 mg PO DAILY [facility] Last Admin: 05/13/18 09:30 Dose: 20 mg Furosemide (Lasix -) 20 mg PO DAILY [facility] Last Admin: 05/13/18 09:30 Dose: 20 mg Hydroxyzine HCl (Atarax -) 25 mg PO TID [facility] Last Admin: 05/13/18 06:02 Dose: 25 mg Insulin Aspart (Novolog Vial Sliding Scale -) 1 vial SQ TIDAC [facility]; Protocol Last Admin: 05/13/18 06:02 Dose: 3 units Lactobacillus Acidophilus (Bacid -) 1 tab PO BID [facility] Last Admin: 05/13/18 09:34 Dose: 1 tab Levothyroxine Sodium (Synthroid -) 25 mcg PO DAILY@0700 [facility] Last Admin: 05/13/18 06:02 Dose: 25 mcg Magnesium Hydroxide (Milk Of Magnesia -) 30 ml PO ASDIR PRN PRN Reason: CONSTIPATION Methylprednisolone Sodium Succinate (Solu-Medrol -) 40 mg IVPUSH Q8H-IV [facility] Last Admin: 05/13/18 09:55 Dose: 40 mg Mirtazapine (Remeron -) 15 mg PO HS [facility] Last Admin: 05/12/18 21:04 Dose: 15 mg Nystatin (Nystop Powder -) 1 applic TP BID [facility] Last Admin: 05/12/18 21:04 Dose: 1 applic Pantoprazole Sodium (Protonix -) 40 mg PO DAILY [facility] Last Admin: 05/13/18 09:30 Dose: 40 mg Polyethylene Glycol (Miralax (For Daily Use) -) 17 gm PO DAILY [facility] Last Admin: 05/13/18 09:32 Dose: 17 gm Senna (Senna -) 2 tab PO HS [facility] Last Admin: 05/12/18 21:04 Dose: 2 tab Trazodone HCl (Desyrel -) 50 mg PO HS [facility] Last Admin: 05/12/18 21:04 Dose: 50 mg A/P Acute on Chronic and Hypercapneic Respiratory Failure Acute COPD Exacerbation Morbid Obesity Bipolar Disorder DM - continue medrol at current dose - inhaled bronchodilators standing and PRN - continue volume assist control for now - spontaneous breathing trials as tolerated - PO as tolerated - DVT/GI prophylaxis
--- NOTE | 2018-05-13 11:35 | PN ---
Progress Note (short form) - Note Progress Note: feels better on trach collar off vent vitals noted S1 S2 RRR Lungs decreased ronchi B/L Edema+ abd- soft, obese, NT A/P on trach collar positive blood culture is a contaminant per ID continue with meds on Solumedrol Protonix Problem List - Problems (1) COPD exacerbation Code(s): J44.1 - CHRONIC OBSTRUCTIVE PULMONARY DISEASE W (ACUTE) EXACERBATION (2) Respiratory distress Code(s): R06.03 - ACUTE RESPIRATORY DISTRESS (3) Acute respiratory failure Code(s): J96.00 - ACUTE RESPIRATORY FAILURE, UNSP W HYPOXIA OR HYPERCAPNIA Qualifiers: Respiratory failure complication: hypoxia Qualified Code(s): J96.01 - Acute respiratory failure with hypoxia (4) Bipolar 1 disorder Code(s): F31.9 - BIPOLAR DISORDER, UNSPECIFIED
[2018-05-13] MEDS: NYSTATIN POWDER 100,000 UNITS/GM - 15 GM TOPICAL POWDER TP SCH ×2 (12:34→21:06)
[2018-05-13] MEDS: traZODone HCL 50 MG TABLET (FP) PO SCH (21:06)
[2018-05-13] MEDS: ATORVASTATIN CA 20 MG TABLET (FP) PO SCH (21:06)
[2018-05-13] MEDS: MIRTAZAPINE 15 MG TABLET (FP) PO SCH (21:06)
[2018-05-13] MEDS: DOCUSATE SODIUM 100 MG CAPSULE (FP) PO SCH (21:06)
[2018-05-13] MEDS: SENNOSIDES 8.6MG TABLET (FP) PO SCH (21:06)
[2018-05-14] MEDS: methylPREDNISolone NA SUCC 40 MG/1 ML VIAL IVPUSH SCH ×3 (02:24→17:38)
[2018-05-14] MEDS ORDERED: INSULIN (NOVOLOG) ASPART 100 UNITS/ML 10ML VIAL ONE ×2 (05:58→07:02)
[2018-05-14] MEDS: INSULIN SLIDING SCALE (NOVOLOG) 1 VIAL SQ SCH ×3 (06:20→16:29)
[2018-05-14] MEDS: LEVOTHYROXINE NA 25 MCG TABLET (FP) PO SCH (06:21)
[2018-05-14] MEDS: hydrOXYzine HCL 25 MG TABLET (FP) PO SCH ×3 (06:21→21:38)
[2018-05-14] MEDS ORDERED: INSULIN (LEVEMIR) 100 UNITS/ML UNITS SQ ONE (07:01)
[2018-05-14] MEDS ORDERED: PT OWN MED DRAWER 7, Y5N ONE ×3 (07:02→21:09)
[2018-05-14] MEDS: ALBUTEROL SO4 2.5/IPRATROPIUM 0.5 INH SOL 3 ML VIAL.NEB. NEB SCH ×4 (08:09→20:00)
[2018-05-14] MEDS: ACETAMINOPHEN 325 MG TABLET (FP) PO SCH (09:40)
[2018-05-14] MEDS: ESCITALOPRAM OXALATE 20 MG TABLET (FP) PO SCH (09:41)
[2018-05-14] MEDS: ASPIRIN 81 MG CHEWABLE TABLETS PO SCH (09:41)
[2018-05-14] MEDS: FUROSEMIDE 20 MG TABLET (FP) PO SCH (09:41)
[2018-05-14] MEDS: BUDESONIDE/FORMETEROL FUMARATE 160/4.5 mcg INHALER IH SCH ×2 (09:41→21:38)
[2018-05-14] MEDS: PANTOPRAZOLE 40 MG TABLET (FP) PO SCH (09:41)
[2018-05-14] MEDS: LACTOBACILLUS ACIDOPHILUS 1 TABLET PO SCH ×2 (09:41→21:37)
[2018-05-14] MEDS: ARIPiprazole 5 MG TABLET (FP) PO SCH (09:42)
[2018-05-14] MEDS: POLYETHYLENE GLYCOL 3350 119 GM BTL PO SCH (09:44)
[2018-05-14] MEDS: ENOXAPARIN NA (PORCINE) 40 MG/0.4 ML DISP.SYRIN SQ SCH (09:48)
--- NOTE | 2018-05-14 11:14 | PN ---
Progress Note (short form) - Note Progress Note: pt seen/ examined. chart reviewed feels better. remains vent dependent Vital Signs Temp 98.2 F 05/14/18 09:45 Pulse 50 L 05/14/18 09:45 Resp 22 H 05/14/18 09:45 BP 149/93 05/14/18 09:45 Pulse Ox 97 05/14/18 07:00 Intake & Output 05/13/18 05/13/18 05/14/18 11:59 23:59 11:59 Intake Total 765 765 Balance 765 765 Intake: Oral 765 765 Other: Voiding Method Diaper Diaper # Unmeasured Voids Void 1 1 1 Bowel Movement No Active Medications Acetaminophen (Tylenol -) 650 mg PO DAILY [facility] Last Admin: 05/14/18 09:40 Dose: 650 mg Albuterol Sulfate (Ventolin 0.083% Nebulizer Soln -) 1 amp NEB Q4H PRN PRN Reason: SHORT OF BREATH/WHEEZING Albuterol/Ipratropium (Duoneb -) 1 amp NEB RQID [facility] Last Admin: 05/14/18 08:09 Dose: 1 amp Aripiprazole (Abilify) 5 mg PO DAILY [facility] Last Admin: 05/14/18 09:42 Dose: 5 mg Aspirin (Asa -) 81 mg PO DAILY [facility] Last Admin: 05/14/18 09:41 Dose: 81 mg Atorvastatin Calcium (Lipitor -) 20 mg PO [facility] Last Admin: 05/13/18 21:06 Dose: 20 mg Budesonide/Formoterol Fumarate (Symbicort 160/4.5mcg -) 2 puff IH BID [facility] Last Admin: 05/14/18 09:41 Dose: 2 puff Docusate Sodium (Colace -) 100 mg PO HS [facility] Last Admin: 05/13/18 21:06 Dose: 100 mg Enoxaparin Sodium (Lovenox -) 40 mg SQ DAILY [facility] Last Admin: 05/14/18 09:48 Dose: 40 mg Ergocalciferol (Drisdol -) 50,000 unit PO Q7D@1000 [facility] Escitalopram Oxalate (Lexapro -) 20 mg PO DAILY [facility] Last Admin: 05/14/18 09:41 Dose: 20 mg Furosemide (Lasix -) 20 mg PO DAILY [facility] Last Admin: 05/14/18 09:41 Dose: 20 mg Hydroxyzine HCl (Atarax -) 25 mg PO TID [facility] Last Admin: 05/14/18 06:21 Dose: 25 mg Insulin Aspart (Novolog Vial Sliding Scale -) 1 vial SQ TIDAC [facility]; Protocol Last Admin: 05/14/18 06:20 Dose: Not Given Lactobacillus Acidophilus (Bacid -) 1 tab PO BID [facility] Last Admin: 05/14/18 09:41 Dose: 1 tab Levothyroxine Sodium (Synthroid -) 25 mcg PO DAILY@0700 [facility] Last Admin: 05/14/18 06:21 Dose: 25 mcg Magnesium Hydroxide (Milk Of Magnesia -) 30 ml PO ASDIR PRN PRN Reason: CONSTIPATION Methylprednisolone Sodium Succinate (Solu-Medrol -) 40 mg IVPUSH Q8H-IV [facility] Last Admin: 05/14/18 09:41 Dose: 40 mg Mirtazapine (Remeron -) 15 mg PO [facility] Last Admin: 05/13/18 21:06 Dose: 15 mg Nystatin (Nystop Powder -) 1 applic TP BID [facility] Last Admin: 05/13/18 21:06 Dose: 1 applic Pantoprazole Sodium (Protonix -) 40 mg PO DAILY [facility] Last Admin: 05/14/18 09:41 Dose: 40 mg Polyethylene Glycol (Miralax (For Daily Use) -) 17 gm PO DAILY [facility] Last Admin: 05/14/18 09:44 Dose: Not Given Senna (Senna -) 2 tab PO [facility] Last Admin: 05/13/18 21:06 Dose: Not Given Trazodone HCl (Desyrel -) 50 mg PO [facility] Last Admin: 05/13/18 21:06 Dose: 50 mg CBC, BMP 05/11/18 06:20 05/11/18 06:20 Microbiology 05/10/18 08:35 Blood Culture - Preliminary Blood - Peripheral Venous NO GROWTH OBTAINED AFTER 96 HOURS, INCUBATION TO CONTINUE FOR 1 DAYS. 05/10/18 08:40 Blood Culture - Preliminary Blood - Peripheral Venous Gram Positive Cocci Physical Examination Constitutional: Yes: No Distress, looks better. Eyes: Yes: Conjunctiva Clear Neck: Yes: Other (s/p trach- vent) Cardiovascular: Yes: Regular Rate and Rhythm Respiratory: Yes: Diminished Gastrointestinal: Yes: Soft/ non- tender Edema: No Neurological: Yes: Alert Psychiatric: Yes: Alert Assessment/Plan clinically better Vent support--weaning as tolerated Steroids Meds reviewed continue present care We will follow Will discuss with pulmonary also Problem List - Problems (1) COPD exacerbation Code(s): J44.1 - CHRONIC OBSTRUCTIVE PULMONARY DISEASE W (ACUTE) EXACERBATION (2) Respiratory distress Code(s): R06.03 - ACUTE RESPIRATORY DISTRESS (3) Acute on chronic respiratory failure with hypoxia and hypercapnia Code(s): J96.21 - ACUTE AND CHRONIC RESPIRATORY FAILURE WITH HYPOXIA; J96.22 - ACUTE AND CHRONIC RESPIRATORY FAILURE WITH HYPERCAPNIA (4) Bipolar 1 disorder Code(s): F31.9 - BIPOLAR DISORDER, UNSPECIFIED (5) Diabetes Code(s): E11.9 - TYPE 2 DIABETES MELLITUS WITHOUT COMPLICATIONS (6) Morbid obesity Code(s): E66.01 - MORBID (SEVERE) OBESITY DUE TO EXCESS CALORIES (7) Tracheostomy dependence Code(s): Z93.0 - TRACHEOSTOMY STATUS
--- NOTE | 2018-05-14 13:17 | PN ---
Progress Note (short form) - Note Progress Note: PULMONARY WELL KNOWN BY OUR SERVICE AWAKE/ALERT APPEARS CALM ON VENT A/C MODE VSS ANICTERIC/PALE TRACH IN PLACE DIMINISHED B/L BREATH SOUNDS S1S2 BS+ OBESE LOWER EXT 1+ EDEMA LABS/MEDS/IMAGES/NOTES REVIEWED Acute on Chronic and Hypercapneic Respiratory Failure Acute COPD Exacerbation Morbid Obesity Bipolar Disorder DM - continue medrol at current dose - inhaled bronchodilators standing and PRN - continue volume assist control for now - spontaneous breathing trials as tolerated - PO as tolerated - DVT/GI prophylaxis - will obtain cxr/vbg Marcus ALVA MD
[2018-05-14] MEDS: NYSTATIN POWDER 100,000 UNITS/GM - 15 GM TOPICAL POWDER TP SCH ×2 (13:26→21:38)
--- NOTE | 2018-05-14 14:50 | PN ---
Progress Note (short form) - Note Progress Note: back on the vent alert Vital Signs Period Temp Pulse Resp BP Sys/Petersen Pulse Ox Last 24 Hr 98.0 F-98.3 F 49-55 17-27 119-154/61-93 97-97 cor-rrr lungs scattered wheeze abd soft,nt ext +edema CBC, BMP 05/11/18 06:20 05/11/18 06:20 Microbiology 05/10/18 08:35 Blood - Peripheral Venous Blood Culture - Preliminary NO GROWTH OBTAINED AFTER 96 HOURS, INCUBATION TO CONTINUE FOR 1 DAYS. 05/10/18 08:40 Blood - Peripheral Venous Blood Culture - Preliminary Gram Positive Cocci a/p positive blood culture- spoke with micro- most likely micrococus most likely contaminant- no need to treat wheezing chronic resp failure morbid obesity per pulmonary please call back if needed Problem List - Problems (1) Positive blood culture Code(s): R78.81 - BACTEREMIA (2) COPD exacerbation Code(s): J44.1 - CHRONIC OBSTRUCTIVE PULMONARY DISEASE W (ACUTE) EXACERBATION (3) Morbid obesity Code(s): E66.01 - MORBID (SEVERE) OBESITY DUE TO EXCESS CALORIES (4) MDRO (multiple drug resistant organisms) resistance Code(s): Z16.35 - RESISTANCE TO MULTIPLE ANTIMICROBIAL DRUGS
[2018-05-14 17:01] LABS: VENOUS PC02 50.6 mmHg (38-52); VENOUS PH 7.41 (7.32-7.42)
[2018-05-14] MEDS: ATORVASTATIN CA 20 MG TABLET (FP) PO SCH (21:37)
[2018-05-14] MEDS: DOCUSATE SODIUM 100 MG CAPSULE (FP) PO SCH (21:37)
[2018-05-14] MEDS: traZODone HCL 50 MG TABLET (FP) PO SCH (21:38)
[2018-05-14] MEDS: MIRTAZAPINE 15 MG TABLET (FP) PO SCH (21:38)
[2018-05-14] MEDS: SENNOSIDES 8.6MG TABLET (FP) PO SCH (21:38)
[2018-05-15] MEDS: methylPREDNISolone NA SUCC 40 MG/1 ML VIAL IVPUSH SCH ×3 (01:15→17:27)
[2018-05-15] MEDS: LEVOTHYROXINE NA 25 MCG TABLET (FP) PO SCH (06:06)
[2018-05-15] MEDS: hydrOXYzine HCL 25 MG TABLET (FP) PO SCH ×3 (06:06→21:11)
[2018-05-15] MEDS: INSULIN SLIDING SCALE (NOVOLOG) 1 VIAL SQ SCH ×3 (06:07→17:14)
[2018-05-15] MEDS ORDERED: PT OWN MED DRAWER 7, Y5N ONE ×5 (06:45→20:34)
[2018-05-15] MEDS ORDERED: INSULIN (NOVOLOG) ASPART 100 UNITS/ML 10ML VIAL ONE (06:45)
[2018-05-15] MEDS ORDERED: INSULIN (LEVEMIR) 100 UNITS/ML UNITS SQ ONE (06:45)
[2018-05-15] MEDS: ALBUTEROL SO4 2.5/IPRATROPIUM 0.5 INH SOL 3 ML VIAL.NEB. NEB SCH ×2 (07:50→11:50)
[2018-05-15] MEDS: BUDESONIDE/FORMETEROL FUMARATE 160/4.5 mcg INHALER IH SCH ×2 (10:08→21:14)
[2018-05-15] MEDS: ACETAMINOPHEN 325 MG TABLET (FP) PO SCH (10:09)
[2018-05-15] MEDS: PANTOPRAZOLE 40 MG TABLET (FP) PO SCH (10:09)
[2018-05-15] MEDS: ASPIRIN 81 MG CHEWABLE TABLETS PO SCH (10:10)
[2018-05-15] MEDS: FUROSEMIDE 20 MG TABLET (FP) PO SCH (10:10)
[2018-05-15] MEDS: LACTOBACILLUS ACIDOPHILUS 1 TABLET PO SCH ×2 (10:10→21:11)
[2018-05-15] MEDS: ESCITALOPRAM OXALATE 20 MG TABLET (FP) PO SCH (10:10)
[2018-05-15] MEDS: NYSTATIN POWDER 100,000 UNITS/GM - 15 GM TOPICAL POWDER TP SCH ×2 (10:11→21:15)
[2018-05-15] MEDS: POLYETHYLENE GLYCOL 3350 119 GM BTL PO SCH (10:11)
[2018-05-15] MEDS: ARIPiprazole 5 MG TABLET (FP) PO SCH (10:11)
[2018-05-15] MEDS: ENOXAPARIN NA (PORCINE) 40 MG/0.4 ML DISP.SYRIN SQ SCH (10:11)
--- NOTE | 2018-05-15 12:21 | PN ---
Progress Note (short form) - Note Progress Note: pt seen/ examined chart reviewed comfortable remains vent dependent Pt signed DNR last night Vital Signs Temp 97.4 F L 05/15/18 10:22 Pulse 58 L 05/15/18 10:22 Resp 24 H 05/15/18 10:22 BP 138/74 05/15/18 10:22 Pulse Ox 97 05/15/18 09:00 Intake & Output 05/14/18 05/15/18 05/15/18 23:59 11:59 23:59 Intake Total 1070 465 Balance 1070 465 Intake: Oral 1070 465 Other: Voiding Method Incontinent Incontinent # Unmeasured Voids Void 1 2 Bowel Movement No Active Medications Acetaminophen (Tylenol -) 650 mg PO DAILY [facility] Last Admin: 05/15/18 10:09 Dose: 650 mg Albuterol Sulfate (Ventolin 0.083% Nebulizer Soln -) 1 amp NEB Q4H PRN PRN Reason: SHORT OF BREATH/WHEEZING Albuterol/Ipratropium (Duoneb -) 1 amp NEB RQID [facility] Last Admin: 05/15/18 07:50 Dose: 1 amp Aripiprazole (Abilify) 5 mg PO DAILY [facility] Last Admin: 05/15/18 10:11 Dose: 5 mg Aspirin (Asa -) 81 mg PO DAILY [facility] Last Admin: 05/15/18 10:10 Dose: 81 mg Atorvastatin Calcium (Lipitor -) 20 mg PO [facility] Last Admin: 05/14/18 21:37 Dose: 20 mg Budesonide/Formoterol Fumarate (Symbicort 160/4.5mcg -) 2 puff IH BID [facility] Last Admin: 05/15/18 10:08 Dose: 2 puff Docusate Sodium (Colace -) 100 mg PO HS [facility] Last Admin: 05/14/18 21:37 Dose: 100 mg Enoxaparin Sodium (Lovenox -) 40 mg SQ DAILY [facility] Last Admin: 05/15/18 10:11 Dose: 40 mg Ergocalciferol (Drisdol -) 50,000 unit PO Q7D@1000 [facility] Escitalopram Oxalate (Lexapro -) 20 mg PO DAILY [facility] Last Admin: 05/15/18 10:10 Dose: 20 mg Furosemide (Lasix -) 20 mg PO DAILY [facility] Last Admin: 05/15/18 10:10 Dose: 20 mg Hydroxyzine HCl (Atarax -) 25 mg PO TID [facility] Last Admin: 05/15/18 06:06 Dose: 25 mg Insulin Aspart (Novolog Vial Sliding Scale -) 1 vial SQ TIDAC [facility]; Protocol Last Admin: 05/15/18 11:43 Dose: Not Given Lactobacillus Acidophilus (Bacid -) 1 tab PO BID [facility] Last Admin: 05/15/18 10:10 Dose: 1 tab Levothyroxine Sodium (Synthroid -) 25 mcg PO DAILY@0700 [facility] Last Admin: 05/15/18 06:06 Dose: 25 mcg Magnesium Hydroxide (Milk Of Magnesia -) 30 ml PO [facility] PRN PRN Reason: CONSTIPATION Methylprednisolone Sodium Succinate (Solu-Medrol -) 40 mg IVPUSH Q8H-IV [facility] Last Admin: 05/15/18 10:08 Dose: 40 mg Mirtazapine (Remeron -) 15 mg PO [facility] Last Admin: 05/14/18 21:38 Dose: 15 mg Nystatin (Nystop Powder -) 1 applic TP BID [facility] Last Admin: 05/15/18 10:11 Dose: 1 applic Pantoprazole Sodium (Protonix -) 40 mg PO DAILY [facility] Last Admin: 05/15/18 10:09 Dose: 40 mg Polyethylene Glycol (Miralax (For Daily Use) -) 17 gm PO DAILY [facility] Last Admin: 05/15/18 10:11 Dose: Not Given Senna (Senna -) 2 tab PO [facility] Last Admin: 05/14/18 21:38 Dose: Not Given Trazodone HCl (Desyrel -) 50 mg PO [facility] Last Admin: 05/14/18 21:38 Dose: 50 mg CBC, BMP 05/11/18 06:20 05/11/18 06:20 Physical Examination Constitutional: Yes: No Distress, comfortable Eyes: Yes: Conjunctiva Clear Neck: Yes: Other (s/p trach- vent) Cardiovascular: Yes: Regular Rate and Rhythm Respiratory: Yes: Diminished Gastrointestinal: Yes: Soft/ non- tender Edema: No Neurological: Yes: Alert Psychiatric: Yes: Alert Assessment/Plan clinically stable Vent support--weaning as tolerated Steroids Meds reviewed continue present care We will follow Problem List - Problems (1) COPD exacerbation Code(s): J44.1 - CHRONIC OBSTRUCTIVE PULMONARY DISEASE W (ACUTE) EXACERBATION (2) Respiratory distress Code(s): R06.03 - ACUTE RESPIRATORY DISTRESS (3) Acute on chronic respiratory failure with hypoxia and hypercapnia Code(s): J96.21 - ACUTE AND CHRONIC RESPIRATORY FAILURE WITH HYPOXIA; J96.22 - ACUTE AND CHRONIC RESPIRATORY FAILURE WITH HYPERCAPNIA (4) Bipolar 1 disorder Code(s): F31.9 - BIPOLAR DISORDER, UNSPECIFIED (5) Diabetes Code(s): E11.9 - TYPE 2 DIABETES MELLITUS WITHOUT COMPLICATIONS (6) Morbid obesity Code(s): E66.01 - MORBID (SEVERE) OBESITY DUE TO EXCESS CALORIES (7) Tracheostomy dependence Code(s): Z93.0 - TRACHEOSTOMY STATUS
--- NOTE | 2018-05-15 13:26 | PN ---
Progress Note (short form) - Note Progress Note: PULMONARY Breathing better today. Still with cough and wheezing. Vented on volume assist control but would like to try trach collar. Vital Signs Period Temp Pulse Resp BP Sys/Petersen Pulse Ox Last 24 Hr 97.2 F-98.4 F 46-58 18-26 130-162/73-85 96-97 Gen: vented, less tachypneic Heart: RRR Lung: bilateral rhonchi, wheezes Abd: soft, nontender Ext: no edema CBC, BMP 05/11/18 06:20 05/11/18 06:20 Active Medications Acetaminophen (Tylenol -) 650 mg PO DAILY [facility] Last Admin: 05/15/18 10:09 Dose: 650 mg Albuterol Sulfate (Ventolin 0.083% Nebulizer Soln -) 1 amp NEB Q4H PRN PRN Reason: SHORT OF BREATH/WHEEZING Albuterol/Ipratropium (Duoneb -) 1 amp NEB RQID [facility] Last Admin: 05/15/18 07:50 Dose: 1 amp Aripiprazole (Abilify) 5 mg PO DAILY [facility] Last Admin: 05/15/18 10:11 Dose: 5 mg Aspirin (Asa -) 81 mg PO DAILY [facility] Last Admin: 05/15/18 10:10 Dose: 81 mg Atorvastatin Calcium (Lipitor -) 20 mg PO HS [facility] Last Admin: 05/14/18 21:37 Dose: 20 mg Budesonide/Formoterol Fumarate (Symbicort 160/4.5mcg -) 2 puff IH BID [facility] Last Admin: 05/15/18 10:08 Dose: 2 puff Docusate Sodium (Colace -) 100 mg PO HS [facility] Last Admin: 05/14/18 21:37 Dose: 100 mg Enoxaparin Sodium (Lovenox -) 40 mg SQ DAILY [facility] Last Admin: 05/15/18 10:11 Dose: 40 mg Ergocalciferol (Drisdol -) 50,000 unit PO Q7D@1000 [facility] Escitalopram Oxalate (Lexapro -) 20 mg PO DAILY [facility] Last Admin: 05/15/18 10:10 Dose: 20 mg Furosemide (Lasix -) 20 mg PO DAILY [facility] Last Admin: 05/15/18 10:10 Dose: 20 mg Hydroxyzine HCl (Atarax -) 25 mg PO TID [facility] Last Admin: 10/27/18 06:06 Dose: 25 mg Insulin Aspart (Novolog Vial Sliding Scale -) 1 vial SQ TIDAC [facility]; Protocol Last Admin: 05/15/18 11:43 Dose: Not Given Lactobacillus Acidophilus (Bacid -) 1 tab PO BID [facility] Last Admin: 05/15/18 10:10 Dose: 1 tab Levothyroxine Sodium (Synthroid -) 25 mcg PO DAILY@0700 [facility] Last Admin: 05/15/18 06:06 Dose: 25 mcg Magnesium Hydroxide (Milk Of Magnesia -) 30 ml PO [facility] PRN PRN Reason: CONSTIPATION Methylprednisolone Sodium Succinate (Solu-Medrol -) 40 mg IVPUSH Q8H-IV [facility] Last Admin: 05/15/18 10:08 Dose: 40 mg Mirtazapine (Remeron -) 15 mg PO [facility] Last Admin: 05/14/18 21:38 Dose: 15 mg Nystatin (Nystop Powder -) 1 applic TP BID [facility] Last Admin: 05/15/18 10:11 Dose: 1 applic Pantoprazole Sodium (Protonix -) 40 mg PO DAILY [facility] Last Admin: 05/15/18 10:09 Dose: 40 mg Polyethylene Glycol (Miralax (For Daily Use) -) 17 gm PO DAILY [facility] Last Admin: 05/15/18 10:11 Dose: Not Given Senna (Senna -) 2 tab PO [facility] Last Admin: 05/14/18 21:38 Dose: Not Given Trazodone HCl (Desyrel -) 50 mg PO [facility] Last Admin: 05/14/18 21:38 Dose: 50 mg A/P Acute on Chronic and Hypercapneic Respiratory Failure Acute COPD Exacerbation Morbid Obesity Bipolar Disorder DM - continue medrol at current dose - inhaled bronchodilators standing and PRN - spontaneous breathing trials as tolerated - can try trach collar - PO as tolerated - DVT/GI prophylaxis
[2018-05-15] MEDS: SENNOSIDES 8.6MG TABLET (FP) PO SCH (21:12)
[2018-05-15] MEDS: MIRTAZAPINE 15 MG TABLET (FP) PO SCH (21:12)
[2018-05-15] MEDS: DOCUSATE SODIUM 100 MG CAPSULE (FP) PO SCH (21:12)
[2018-05-15] MEDS: ATORVASTATIN CA 20 MG TABLET (FP) PO SCH (21:12)
[2018-05-15] MEDS: traZODone HCL 50 MG TABLET (FP) PO SCH (21:12)
[2018-05-16] MEDS: methylPREDNISolone NA SUCC 40 MG/1 ML VIAL IVPUSH SCH ×3 (02:04→17:32)
[2018-05-16] MEDS: LEVOTHYROXINE NA 25 MCG TABLET (FP) PO SCH (07:08)
[2018-05-16] MEDS: INSULIN SLIDING SCALE (NOVOLOG) 1 VIAL SQ SCH ×3 (07:08→16:56)
[2018-05-16] MEDS: hydrOXYzine HCL 25 MG TABLET (FP) PO SCH ×3 (07:08→21:36)
[2018-05-16] MEDS ORDERED: PT OWN MED DRAWER 7, Y5N ONE ×4 (09:51→20:51)
[2018-05-16] MEDS: ESCITALOPRAM OXALATE 20 MG TABLET (FP) PO SCH (10:11)
[2018-05-16] MEDS: FUROSEMIDE 20 MG TABLET (FP) PO SCH (10:11)
[2018-05-16] MEDS: LACTOBACILLUS ACIDOPHILUS 1 TABLET PO SCH ×2 (10:12→21:35)
[2018-05-16] MEDS: ASPIRIN 81 MG CHEWABLE TABLETS PO SCH (10:12)
[2018-05-16] MEDS: ACETAMINOPHEN 325 MG TABLET (FP) PO SCH (10:12)
[2018-05-16] MEDS: POLYETHYLENE GLYCOL 3350 119 GM BTL PO SCH (10:13)
[2018-05-16] MEDS: ENOXAPARIN NA (PORCINE) 40 MG/0.4 ML DISP.SYRIN SQ SCH (10:13)
[2018-05-16] MEDS: BUDESONIDE/FORMETEROL FUMARATE 160/4.5 mcg INHALER IH SCH ×2 (10:13→21:39)
[2018-05-16] MEDS: ARIPiprazole 5 MG TABLET (FP) PO SCH (10:14)
[2018-05-16] MEDS: PANTOPRAZOLE 40 MG TABLET (FP) PO SCH (10:15)
[2018-05-16] MEDS: NYSTATIN POWDER 100,000 UNITS/GM - 15 GM TOPICAL POWDER TP SCH ×2 (10:15→21:40)
--- NOTE | 2018-05-16 11:05 | PN ---
Progress Note (short form) - Note Progress Note: pt seen/ examined feels better cough + tolerated trach collar for few hrs yesterday Vital Signs Temp 98.2 F 05/15/18 21:01 Pulse 65 05/15/18 22:58 Resp 20 05/16/18 10:02 BP 133/70 05/15/18 21:01 Pulse Ox 95 05/15/18 22:58 Intake & Output 05/15/18 05/15/18 05/16/18 11:59 23:59 11:59 Intake Total 465 440 200 Balance 465 440 200 Intake: Oral 465 440 200 Other: Voiding Method Incontinent Incontinent # Unmeasured Voids Void 2 2 Bowel Movement No No Active Medications Acetaminophen (Tylenol -) 650 mg PO DAILY [facility] Last Admin: 05/16/18 10:12 Dose: 650 mg Albuterol Sulfate (Ventolin 0.083% Nebulizer Soln -) 1 amp NEB Q4H PRN PRN Reason: SHORT OF BREATH/WHEEZING Aripiprazole (Abilify) 5 mg PO DAILY [facility] Last Admin: 05/16/18 10:14 Dose: 5 mg Aspirin (Asa -) 81 mg PO DAILY [facility] Last Admin: 05/16/18 10:12 Dose: 81 mg Atorvastatin Calcium (Lipitor -) 20 mg PO HS [facility] Last Admin: 05/15/18 21:12 Dose: 20 mg Budesonide/Formoterol Fumarate (Symbicort 160/4.5mcg -) 2 puff IH BID [facility] Last Admin: 05/16/18 10:13 Dose: 2 puff Docusate Sodium (Colace -) 100 mg PO HS [facility] Last Admin: 05/15/18 21:12 Dose: 100 mg Enoxaparin Sodium (Lovenox -) 40 mg SQ DAILY [facility] Last Admin: 05/16/18 10:13 Dose: 40 mg Ergocalciferol (Drisdol -) 50,000 unit PO Q7D@1000 [facility] Escitalopram Oxalate (Lexapro -) 20 mg PO DAILY [facility] Last Admin: 05/16/18 10:11 Dose: 20 mg Furosemide (Lasix -) 20 mg PO DAILY [facility] Last Admin: 05/16/18 10:11 Dose: 20 mg Hydroxyzine HCl (Atarax -) 25 mg PO TID [facility] Last Admin: 05/16/18 07:08 Dose: 25 mg Insulin Aspart (Novolog Vial Sliding Scale -) 1 vial SQ TIDAC [facility]; Protocol Last Admin: 05/16/18 07:08 Dose: Not Given Lactobacillus Acidophilus (Bacid -) 1 tab PO BID [facility] Last Admin: 05/16/18 10:12 Dose: 1 tab Levothyroxine Sodium (Synthroid -) 25 mcg PO DAILY@0700 [facility] Last Admin: 05/16/18 07:08 Dose: 25 mcg Magnesium Hydroxide (Milk Of Magnesia -) 30 ml PO ASDIR PRN PRN Reason: CONSTIPATION Methylprednisolone Sodium Succinate (Solu-Medrol -) 40 mg IVPUSH Q8H-IV [facility] Last Admin: 05/16/18 10:11 Dose: 40 mg Mirtazapine (Remeron -) 15 mg PO [facility] Last Admin: 05/15/18 21:12 Dose: 15 mg Nystatin (Nystop Powder -) 1 applic TP BID [facility] Last Admin: 05/16/18 10:15 Dose: 1 applic Pantoprazole Sodium (Protonix -) 40 mg PO DAILY [facility] Last Admin: 05/16/18 10:15 Dose: 40 mg Polyethylene Glycol (Miralax (For Daily Use) -) 17 gm PO DAILY [facility] Last Admin: 05/16/18 10:13 Dose: 17 gm Senna (Senna -) 2 tab PO [facility] Last Admin: 05/15/18 21:12 Dose: 2 tab Trazodone HCl (Desyrel -) 50 mg PO [facility] Last Admin: 05/15/18 21:12 Dose: 50 mg CBC, BMP 05/11/18 06:20 05/11/18 06:20 Microbiology 05/10/18 08:40 Blood Culture - Final Blood - Peripheral Venous Micrococcus & Related Species 05/10/18 08:35 Blood Culture - Final Blood - Peripheral Venous NO GROWTH AFTER 5 DAYS INCUBATION Physical Examination Constitutional: Yes: No Distress, comfortable Eyes: Yes: Conjunctiva Clear Neck: Yes: Other (s/p trach- vent) Cardiovascular: Yes: Regular Rate and Rhythm Respiratory: Yes: Diminished Gastrointestinal: Yes: Soft/ non- tender Edema: No Neurological: Yes: Alert Psychiatric: Yes: Alert Assessment/Plan clinically stable Vent support--weaning as tolerated Steroids-- continue same for now. Meds reviewed continue present care We will follow discussed with nursing staff Problem List - Problems (1) COPD exacerbation Code(s): J44.1 - CHRONIC OBSTRUCTIVE PULMONARY DISEASE W (ACUTE) EXACERBATION (2) Respiratory distress Code(s): R06.03 - ACUTE RESPIRATORY DISTRESS (3) Acute on chronic respiratory failure with hypoxia and hypercapnia Code(s): J96.21 - ACUTE AND CHRONIC RESPIRATORY FAILURE WITH HYPOXIA; J96.22 - ACUTE AND CHRONIC RESPIRATORY FAILURE WITH HYPERCAPNIA (4) Bipolar 1 disorder Code(s): F31.9 - BIPOLAR DISORDER, UNSPECIFIED (5) Diabetes Code(s): E11.9 - TYPE 2 DIABETES MELLITUS WITHOUT COMPLICATIONS (6) Morbid obesity Code(s): E66.01 - MORBID (SEVERE) OBESITY DUE TO EXCESS CALORIES (7) Tracheostomy dependence Code(s): Z93.0 - TRACHEOSTOMY STATUS
--- NOTE | 2018-05-16 12:24 | PN ---
Progress Note (short form) - Note Progress Note: PULMONARY Tolerated few hours of trach collar yesterday. Still with cough and wheezing. Vital Signs Period Temp Pulse Resp BP Sys/Petersen Pulse Ox Last 24 Hr 98.1 F-98.2 F 53-86 18-27 126-134/66-80 95-95 Gen: vented, less tachypneic Heart: RRR Lung: bilateral rhonchi, wheezes but less Abd: soft, nontender Ext: no edema CBC, BMP 05/11/18 06:20 05/11/18 06:20 Active Medications Acetaminophen (Tylenol -) 650 mg PO DAILY [facility] Last Admin: 05/16/18 10:12 Dose: 650 mg Albuterol Sulfate (Ventolin 0.083% Nebulizer Soln -) 1 amp NEB Q4H PRN PRN Reason: SHORT OF BREATH/WHEEZING Aripiprazole (Abilify) 5 mg PO DAILY [facility] Last Admin: 05/16/18 10:14 Dose: 5 mg Aspirin (Asa -) 81 mg PO DAILY [facility] Last Admin: 05/16/18 10:12 Dose: 81 mg Atorvastatin Calcium (Lipitor -) 20 mg PO HS [facility] Last Admin: 05/15/18 21:12 Dose: 20 mg Budesonide/Formoterol Fumarate (Symbicort 160/4.5mcg -) 2 puff IH BID [facility] Last Admin: 05/16/18 10:13 Dose: 2 puff Docusate Sodium (Colace -) 100 mg PO HS [facility] Last Admin: 05/15/18 21:12 Dose: 100 mg Enoxaparin Sodium (Lovenox -) 40 mg SQ DAILY [facility] Last Admin: 05/16/18 10:13 Dose: 40 mg Ergocalciferol (Drisdol -) 50,000 unit PO Q7D@1000 [facility] Escitalopram Oxalate (Lexapro -) 20 mg PO DAILY [facility] Last Admin: 05/16/18 10:11 Dose: 20 mg Furosemide (Lasix -) 20 mg PO DAILY [facility] Last Admin: 05/16/18 10:11 Dose: 20 mg Hydroxyzine HCl (Atarax -) 25 mg PO TID [facility] Last Admin: 05/16/18 07:08 Dose: 25 mg Insulin Aspart (Novolog Vial Sliding Scale -) 1 vial SQ TIDAC [facility]; Protocol Last Admin: 05/16/18 12:10 Dose: Not Given Lactobacillus Acidophilus (Bacid -) 1 tab PO BID [facility] Last Admin: 05/16/18 10:12 Dose: 1 tab Levothyroxine Sodium (Synthroid -) 25 mcg PO DAILY@0700 [facility] Last Admin: 05/16/18 07:08 Dose: 25 mcg Magnesium Hydroxide (Milk Of Magnesia -) 30 ml PO [facility] PRN PRN Reason: CONSTIPATION Methylprednisolone Sodium Succinate (Solu-Medrol -) 40 mg IVPUSH Q8H-IV [facility] Last Admin: 05/16/18 10:11 Dose: 40 mg Mirtazapine (Remeron -) 15 mg PO HS [facility] Last Admin: 05/15/18 21:12 Dose: 15 mg Nystatin (Nystop Powder -) 1 applic TP BID [facility] Last Admin: 05/16/18 10:15 Dose: 1 applic Pantoprazole Sodium (Protonix -) 40 mg PO DAILY [facility] Last Admin: 05/16/18 10:15 Dose: 40 mg Polyethylene Glycol (Miralax (For Daily Use) -) 17 gm PO DAILY [facility] Last Admin: 05/16/18 10:13 Dose: 17 gm Senna (Senna -) 2 tab PO HS [facility] Last Admin: 05/15/18 21:12 Dose: 2 tab Trazodone HCl (Desyrel -) 50 mg PO HS [facility] Last Admin: 05/15/18 21:12 Dose: 50 mg A/P Acute on Chronic and Hypercapneic Respiratory Failure Acute COPD Exacerbation Morbid Obesity Bipolar Disorder DM - continue medrol at current dose - inhaled bronchodilators standing and PRN - trach collar as tolerated - PO as tolerated - DVT/GI prophylaxis
[2018-05-16] MEDS: ATORVASTATIN CA 20 MG TABLET (FP) PO SCH (21:35)
[2018-05-16] MEDS: MIRTAZAPINE 15 MG TABLET (FP) PO SCH (21:35)
[2018-05-16] MEDS: DOCUSATE SODIUM 100 MG CAPSULE (FP) PO SCH (21:36)
[2018-05-16] MEDS: traZODone HCL 50 MG TABLET (FP) PO SCH (21:36)
[2018-05-16] MEDS: SENNOSIDES 8.6MG TABLET (FP) PO SCH (21:38)
[2018-05-17] MEDS: methylPREDNISolone NA SUCC 40 MG/1 ML VIAL IVPUSH SCH ×3 (02:37→21:17)
[2018-05-17] MEDS: LEVOTHYROXINE NA 25 MCG TABLET (FP) PO SCH (06:02)
[2018-05-17] MEDS: hydrOXYzine HCL 25 MG TABLET (FP) PO SCH ×3 (06:02→21:17)
[2018-05-17] MEDS: INSULIN SLIDING SCALE (NOVOLOG) 1 VIAL SQ SCH ×3 (06:04→17:35)
[2018-05-17 06:15] LABS: BASO % 0.1 % (0-2.0); EOS % 0.1 % (0-4.5); HEMATOCRIT 36.7 % (32.4-45.2); HEMOGLOBIN 11.7 GM/dL (10.7-15.3); LYMPH % 13.6 % (8-40); MCH 27.2 pg (25.7-33.7); MCHC 31.7 g/dl (32.0-36.0); MEAN CELL VOLUME 85.8 fl (80-96); MEAN PLT VOLUME 7.7 fl (7.5-11.1); MONO % 2.3 % (3.8-10.2); NEUT % 83.9 % (42.8-82.8); PLATELET COUNT 270 K/MM3 (134-434); RBC 4.28 M/mm3 (3.60-5.2); WHITE BLOOD COUNT 8.2 K/mm3 (4.0-10.0)
[2018-05-17] MEDS ORDERED: INSULIN (NOVOLOG) ASPART 100 UNITS/ML 10ML VIAL ONE (06:46)
[2018-05-17 06:50] LABS: ALBUMIN 3.5 g/dl (3.4-5.0); ALK PHOS 74 U/L (45-117); ANION GAP 9 MMOL/L (8-16); BILIRUBIN,TOTAL 0.5 mg/dL (0.2-1); BLOOD UREA NITROGEN 25 mg/dL (7-18); CALCIUM 8.7 mg/dL (8.5-10.1); CHLORIDE 100 mmol/L (98-107); CO2 31 mmol/L (21-32); CREATININE 0.5 mg/dL (0.55-1.3); GLUCOSE,RANDOM 85 mg/dL (74-106); POTASSIUM 5.2 mmol/L (3.5-5.1); SGOT/AST 7 U/L (15-37); SGPT/ALT 33 U/L (13-61); SODIUM 140 mmol/L (136-145); TOT PROT 6.8 g/dl (6.4-8.2)
[2018-05-17] MEDS ORDERED: PT OWN MED DRAWER 7, Y5N ONE ×3 (10:13→21:06)
[2018-05-17] MEDS: LACTOBACILLUS ACIDOPHILUS 1 TABLET PO SCH ×2 (10:29→21:17)
[2018-05-17] MEDS: ASPIRIN 81 MG CHEWABLE TABLETS PO SCH (10:29)
[2018-05-17] MEDS: ESCITALOPRAM OXALATE 20 MG TABLET (FP) PO SCH (10:29)
[2018-05-17] MEDS: ACETAMINOPHEN 325 MG TABLET (FP) PO SCH (10:30)
[2018-05-17] MEDS: BUDESONIDE/FORMETEROL FUMARATE 160/4.5 mcg INHALER IH SCH ×2 (10:30→21:18)
[2018-05-17] MEDS: PANTOPRAZOLE 40 MG TABLET (FP) PO SCH (10:31)
[2018-05-17] MEDS: FUROSEMIDE 20 MG TABLET (FP) PO SCH (10:31)
[2018-05-17] MEDS: ERGOCALCIFEROL (VITAMIN D2) 50,000 UNIT CAPSULE (FP) PO SCH (10:31)
[2018-05-17] MEDS: ARIPiprazole 5 MG TABLET (FP) PO SCH (10:32)
[2018-05-17] MEDS: POLYETHYLENE GLYCOL 3350 119 GM BTL PO SCH (10:33)
[2018-05-17] MEDS: ENOXAPARIN NA (PORCINE) 40 MG/0.4 ML DISP.SYRIN SQ SCH (10:34)
[2018-05-17] MEDS: NYSTATIN POWDER 100,000 UNITS/GM - 15 GM TOPICAL POWDER TP SCH ×2 (10:34→21:18)
--- NOTE | 2018-05-17 14:51 | PN ---
Progress Note (short form) - Note Progress Note: pt seen/ examined. tolerating trach collar comfortable Vital Signs Temp 97.5 F L 05/17/18 05:00 Pulse 76 05/17/18 11:00 Resp 20 05/17/18 10:30 BP 125/70 05/17/18 05:00 Pulse Ox 96 05/17/18 11:00 Intake & Output 05/16/18 05/17/18 05/17/18 23:59 11:59 23:59 Intake Total 280 720 Balance 280 720 Intake: Oral 280 720 Other: Voiding Method Incontinent Incontinent # Unmeasured Voids Void 1 2 Bowel Movement Yes No # Bowel Movements 2 Body Mass Index (BMI) 60.4 Active Medications Acetaminophen (Tylenol -) 650 mg PO DAILY [facility] Last Admin: 05/17/18 10:30 Dose: 650 mg Albuterol Sulfate (Ventolin 0.083% Nebulizer Soln -) 1 amp NEB Q4H PRN PRN Reason: SHORT OF BREATH/WHEEZING Last Admin: 05/16/18 11:45 Dose: 1 amp Aripiprazole (Abilify) 5 mg PO DAILY [facility] Last Admin: 05/17/18 10:32 Dose: 5 mg Aspirin (Asa -) 81 mg PO DAILY [facility] Last Admin: 05/17/18 10:29 Dose: 81 mg Atorvastatin Calcium (Lipitor -) 20 mg PO HS [facility] Last Admin: 05/16/18 21:35 Dose: 20 mg Budesonide/Formoterol Fumarate (Symbicort 160/4.5mcg -) 2 puff IH BID [facility] Last Admin: 05/17/18 10:30 Dose: 2 puff Diphenhydramine HCl (Benadryl -) 25 mg PO HS PRN PRN Reason: INSOMNIA Docusate Sodium (Colace -) 100 mg PO HS [facility] Last Admin: 05/16/18 21:36 Dose: 100 mg Enoxaparin Sodium (Lovenox -) 40 mg SQ DAILY [facility] Last Admin: 05/17/18 10:34 Dose: 40 mg Ergocalciferol (Drisdol -) 50,000 unit PO Q7D@1000 [facility] Last Admin: 05/17/18 10:31 Dose: 50,000 unit Escitalopram Oxalate (Lexapro -) 20 mg PO DAILY [facility] Last Admin: 05/17/18 10:29 Dose: 20 mg Furosemide (Lasix -) 20 mg PO DAILY [facility] Last Admin: 05/17/18 10:31 Dose: 20 mg Hydroxyzine HCl (Atarax -) 25 mg PO TID [facility] Last Admin: 05/17/18 14:50 Dose: 25 mg Insulin Aspart (Novolog Vial Sliding Scale -) 1 vial SQ TIDAC [facility]; Protocol Last Admin: 05/17/18 11:12 Dose: Not Given Lactobacillus Acidophilus (Bacid -) 1 tab PO BID [facility] Last Admin: 05/17/18 10:29 Dose: 1 tab Levothyroxine Sodium (Synthroid -) 25 mcg PO DAILY@0700 [facility] Last Admin: 05/17/18 06:02 Dose: 25 mcg Magnesium Hydroxide (Milk Of Magnesia -) 30 ml PO [facility] PRN PRN Reason: CONSTIPATION Methylprednisolone Sodium Succinate (Solu-Medrol -) 40 mg IVPUSH Q8H-IV [facility] Last Admin: 05/17/18 10:30 Dose: 40 mg Mirtazapine (Remeron -) 15 mg PO [facility] Last Admin: 05/16/18 21:35 Dose: 15 mg Nystatin (Nystop Powder -) 1 applic TP BID [facility] Last Admin: 05/17/18 10:34 Dose: 1 applic Pantoprazole Sodium (Protonix -) 40 mg PO DAILY [facility] Last Admin: 05/17/18 10:31 Dose: 40 mg Polyethylene Glycol (Miralax (For Daily Use) -) 17 gm PO DAILY [facility] Last Admin: 05/17/18 10:33 Dose: Not Given Senna (Senna -) 2 tab PO [facility] Last Admin: 05/16/18 21:38 Dose: 2 tab Trazodone HCl (Desyrel -) 50 mg PO [facility] Last Admin: 05/16/18 21:36 Dose: 50 mg CBC, BMP 05/17/18 05:50 05/17/18 05:50 Physical Examination Constitutional: Yes: No Distress, comfortable Eyes: Yes: Conjunctiva Clear Neck: Yes: Other (s/p trach- vent)-- now on trach collar Cardiovascular: Yes: Regular Rate and Rhythm Respiratory: Yes: Diminished Gastrointestinal: Yes: Soft/ non- tender Edema: No Neurological: Yes: Alert Psychiatric: Yes: Alert Assessment/Plan clinically stable Vent support--weaning as tolerated Steroids-- taper Meds reviewed continue present care We will follow discussed with nursing staff Problem List - Problems (1) COPD exacerbation Code(s): J44.1 - CHRONIC OBSTRUCTIVE PULMONARY DISEASE W (ACUTE) EXACERBATION (2) Respiratory distress Code(s): R06.03 - ACUTE RESPIRATORY DISTRESS (3) Acute on chronic respiratory failure with hypoxia and hypercapnia Code(s): J96.21 - ACUTE AND CHRONIC RESPIRATORY FAILURE WITH HYPOXIA; J96.22 - ACUTE AND CHRONIC RESPIRATORY FAILURE WITH HYPERCAPNIA (4) Bipolar 1 disorder Code(s): F31.9 - BIPOLAR DISORDER, UNSPECIFIED (5) Diabetes Code(s): E11.9 - TYPE 2 DIABETES MELLITUS WITHOUT COMPLICATIONS (6) Morbid obesity Code(s): E66.01 - MORBID (SEVERE) OBESITY DUE TO EXCESS CALORIES (7) Tracheostomy dependence Code(s): Z93.0 - TRACHEOSTOMY STATUS
--- NOTE | 2018-05-17 14:57 | PN ---
Progress Note (short form) - Note Progress Note: Feels overall better. On Trach collar. Less cough and wheeze. Intake & Output 05/14/18 05/15/18 05/16/18 05/17/18 23:59 23:59 23:59 23:59 Intake Total 1500 905 710 720 Balance 1500 905 710 720 Last Vital Signs Temp Pulse Resp BP Pulse Ox 97.5 F L 76 20 125/70 96 05/17/18 05:00 05/17/18 11:00 05/17/18 10:30 05/17/18 05:00 05/17/18 11:00 Active Medications Acetaminophen (Tylenol -) 650 mg PO DAILY [facility] Last Admin: 05/17/18 10:30 Dose: 650 mg Albuterol Sulfate (Ventolin 0.083% Nebulizer Soln -) 1 amp NEB Q4H PRN PRN Reason: SHORT OF BREATH/WHEEZING Last Admin: 05/16/18 11:45 Dose: 1 amp Aripiprazole (Abilify) 5 mg PO DAILY [facility] Last Admin: 05/17/18 10:32 Dose: 5 mg Aspirin (Asa -) 81 mg PO DAILY [facility] Last Admin: 05/17/18 10:29 Dose: 81 mg Atorvastatin Calcium (Lipitor -) 20 mg PO HS [facility] Last Admin: 05/16/18 21:35 Dose: 20 mg Budesonide/Formoterol Fumarate (Symbicort 160/4.5mcg -) 2 puff IH BID [facility] Last Admin: 05/17/18 10:30 Dose: 2 puff Diphenhydramine HCl (Benadryl -) 25 mg PO HS PRN PRN Reason: INSOMNIA Docusate Sodium (Colace -) 100 mg PO HS [facility] Last Admin: 05/16/18 21:36 Dose: 100 mg Enoxaparin Sodium (Lovenox -) 40 mg SQ DAILY [facility] Last Admin: 05/17/18 10:34 Dose: 40 mg Ergocalciferol (Drisdol -) 50,000 unit PO Q7D@1000 [facility] Last Admin: 05/17/18 10:31 Dose: 50,000 unit Escitalopram Oxalate (Lexapro -) 20 mg PO DAILY [facility] Last Admin: 05/17/18 10:29 Dose: 20 mg Furosemide (Lasix -) 20 mg PO DAILY [facility] Last Admin: 05/17/18 10:31 Dose: 20 mg Hydroxyzine HCl (Atarax -) 25 mg PO TID [facility] Last Admin: 05/17/18 14:50 Dose: 25 mg Insulin Aspart (Novolog Vial Sliding Scale -) 1 vial SQ TIDAC [facility]; Protocol Last Admin: 05/17/18 11:12 Dose: Not Given Lactobacillus Acidophilus (Bacid -) 1 tab PO BID [facility] Last Admin: 05/17/18 10:29 Dose: 1 tab Levothyroxine Sodium (Synthroid -) 25 mcg PO DAILY@0700 [facility] Last Admin: 05/17/18 06:02 Dose: 25 mcg Magnesium Hydroxide (Milk Of Magnesia -) 30 ml PO [facility] PRN PRN Reason: CONSTIPATION Methylprednisolone Sodium Succinate (Solu-Medrol -) 40 mg IVPUSH Q8H-IV [facility] Last Admin: 05/17/18 10:30 Dose: 40 mg Mirtazapine (Remeron -) 15 mg PO [facility] Last Admin: 05/16/18 21:35 Dose: 15 mg Nystatin (Nystop Powder -) 1 applic TP BID [facility] Last Admin: 05/17/18 10:34 Dose: 1 applic Pantoprazole Sodium (Protonix -) 40 mg PO DAILY [facility] Last Admin: 05/17/18 10:31 Dose: 40 mg Polyethylene Glycol (Miralax (For Daily Use) -) 17 gm PO DAILY [facility] Last Admin: 05/17/18 10:33 Dose: Not Given Senna (Senna -) 2 tab PO [facility] Last Admin: 05/16/18 21:38 Dose: 2 tab Trazodone HCl (Desyrel -) 50 mg PO [facility] Last Admin: 05/16/18 21:36 Dose: 50 mg Gen: Comfortable on Trach collar Heart: RRR Lung: bilateral rhonchi, no wheezes appreciated Abd: soft, nontender Ext: no edema Laboratory Results - last 24 hr 05/16/18 05/17/18 05/17/18 16:54 05:50 05:50 WBC 8.2 RBC 4.28 Hgb 11.7 Hct 36.7 MCV 85.8 MCH 27.2 MCHC 31.7 L RDW 14.0 Plt Count 270 D MPV 7.7 Absolute Neuts (auto) 6.9 Neutrophils % 83.9 H Lymphocytes % 13.6 Monocytes % 2.3 L Eosinophils % 0.1 D Basophils % 0.1 Nucleated RBC % 0 Sodium 140 Potassium 5.2 H Chloride 100 Carbon Dioxide 31 Anion Gap 9 BUN 25 H Creatinine 0.5 L Creat Clearance w eGFR > 60 POC Glucometer 89 Random Glucose 85 Calcium 8.7 Total Bilirubin 0.5 AST 7 L ALT 33 Alkaline Phosphatase 74 Total Protein 6.8 Albumin 3.5 05/17/18 05/17/18 06:04 11:02 WBC RBC Hgb Hct MCV MCH MCHC RDW Plt Count MPV Absolute Neuts (auto) Neutrophils % Lymphocytes % Monocytes % Eosinophils % Basophils % Nucleated RBC % Sodium Potassium Chloride Carbon Dioxide Anion Gap BUN Creatinine Creat Clearance w eGFR POC Glucometer 96 89 Random Glucose Calcium Total Bilirubin AST ALT Alkaline Phosphatase Total Protein Albumin A/P Acute on Chronic and Hypercapneic Respiratory Failure Acute COPD Exacerbation Morbid Obesity Bipolar Disorder DM - Medrol taper - inhaled bronchodilators standing and PRN - trach collar as tolerated - PO as tolerated - DVT/GI prophylaxis Dr [place]
[2018-05-17] MEDS: DOCUSATE SODIUM 100 MG CAPSULE (FP) PO SCH (21:17)
[2018-05-17] MEDS: MIRTAZAPINE 15 MG TABLET (FP) PO SCH (21:17)
[2018-05-17] MEDS: traZODone HCL 50 MG TABLET (FP) PO SCH (21:17)
[2018-05-17] MEDS: ATORVASTATIN CA 20 MG TABLET (FP) PO SCH (21:17)
[2018-05-17] MEDS: SENNOSIDES 8.6MG TABLET (FP) PO SCH (21:18)
[2018-05-18] MEDS: diphenhydrAMINE HCL 25 MG CAPSULE (FP) PO PRN (02:31)
[2018-05-18] MEDS: LEVOTHYROXINE NA 25 MCG TABLET (FP) PO SCH (06:04)
[2018-05-18] MEDS: hydrOXYzine HCL 25 MG TABLET (FP) PO SCH ×3 (06:04→21:08)
[2018-05-18] MEDS: INSULIN SLIDING SCALE (NOVOLOG) 1 VIAL SQ SCH ×3 (06:08→17:39)
[2018-05-18] MEDS ORDERED: PT OWN MED DRAWER 7, Y5N ONE ×3 (10:46→20:25)
[2018-05-18] MEDS: ACETAMINOPHEN 325 MG TABLET (FP) PO SCH (10:51)
[2018-05-18] MEDS: LACTOBACILLUS ACIDOPHILUS 1 TABLET PO SCH ×2 (10:51→21:05)
[2018-05-18] MEDS: ENOXAPARIN NA (PORCINE) 40 MG/0.4 ML DISP.SYRIN SQ SCH (10:51)
[2018-05-18] MEDS: ESCITALOPRAM OXALATE 20 MG TABLET (FP) PO SCH (10:51)
[2018-05-18] MEDS: methylPREDNISolone NA SUCC 40 MG/1 ML VIAL IVPUSH SCH ×2 (10:51→21:05)
[2018-05-18] MEDS: PANTOPRAZOLE 40 MG TABLET (FP) PO SCH (10:51)
[2018-05-18] MEDS: FUROSEMIDE 20 MG TABLET (FP) PO SCH (10:51)
[2018-05-18] MEDS: ASPIRIN 81 MG CHEWABLE TABLETS PO SCH (10:51)
[2018-05-18] MEDS: POLYETHYLENE GLYCOL 3350 119 GM BTL PO SCH (10:52)
[2018-05-18] MEDS: ARIPiprazole 5 MG TABLET (FP) PO SCH (11:48)
[2018-05-18] MEDS: BUDESONIDE/FORMETEROL FUMARATE 160/4.5 mcg INHALER IH SCH ×2 (11:48→21:06)
[2018-05-18] MEDS: NYSTATIN POWDER 100,000 UNITS/GM - 15 GM TOPICAL POWDER TP SCH ×2 (11:48→21:07)
--- NOTE | 2018-05-18 12:30 | PN ---
Progress Note (short form) - Note Progress Note: Back on vent awake/ comfortable cough + afebrile - distress Vital Signs Temp 97.8 F 05/18/18 06:00 Pulse 82 05/18/18 09:04 Resp 23 H 05/18/18 06:25 BP 134/73 05/18/18 06:00 Pulse Ox 96 05/18/18 09:04 Intake & Output 05/17/18 05/18/18 05/18/18 23:59 11:59 23:59 Intake Total 500 Balance 500 Intake: Oral 500 Other: Voiding Method Incontinent Incontinent # Unmeasured Voids Void 1 2 Bowel Movement Yes No # Bowel Movements 1 Body Mass Index (BMI) 60.4 Active Medications Acetaminophen (Tylenol -) 650 mg PO DAILY [facility] Last Admin: 05/18/18 10:51 Dose: 650 mg Aripiprazole (Abilify) 5 mg PO DAILY [facility] Last Admin: 05/18/18 11:48 Dose: 5 mg Aspirin (Asa -) 81 mg PO DAILY [facility] Last Admin: 05/18/18 10:51 Dose: 81 mg Atorvastatin Calcium (Lipitor -) 20 mg PO HS [facility] Last Admin: 05/17/18 21:17 Dose: 20 mg Budesonide/Formoterol Fumarate (Symbicort 160/4.5mcg -) 2 puff IH BID [facility] Last Admin: 05/18/18 11:48 Dose: 2 puff Diphenhydramine HCl (Benadryl -) 25 mg PO HS PRN PRN Reason: INSOMNIA Last Admin: 05/18/18 02:31 Dose: 25 mg Docusate Sodium (Colace -) 100 mg PO HS [facility] Last Admin: 05/17/18 21:17 Dose: 100 mg Enoxaparin Sodium (Lovenox -) 40 mg SQ DAILY [facility] Last Admin: 05/18/18 10:51 Dose: 40 mg Ergocalciferol (Drisdol -) 50,000 unit PO Q7D@1000 [facility] Last Admin: 05/17/18 10:31 Dose: 50,000 unit Escitalopram Oxalate (Lexapro -) 20 mg PO DAILY [facility] Last Admin: 05/18/18 10:51 Dose: 20 mg Furosemide (Lasix -) 20 mg PO DAILY [facility] Last Admin: 05/18/18 10:51 Dose: 20 mg Hydroxyzine HCl (Atarax -) 25 mg PO TID [facility] Last Admin: 05/18/18 06:04 Dose: 25 mg Insulin Aspart (Novolog Vial Sliding Scale -) 1 vial SQ TIDAC [facility]; Protocol Last Admin: 05/18/18 06:08 Dose: Not Given Lactobacillus Acidophilus (Bacid -) 1 tab PO BID [facility] Last Admin: 05/18/18 10:51 Dose: 1 tab Levothyroxine Sodium (Synthroid -) 25 mcg PO DAILY@0700 [facility] Last Admin: 05/18/18 06:04 Dose: 25 mcg Magnesium Hydroxide (Milk Of Magnesia -) 30 ml PO [facility] PRN PRN Reason: CONSTIPATION Methylprednisolone Sodium Succinate (Solu-Medrol -) 30 mg IVPUSH BID [facility] Last Admin: 05/18/18 10:51 Dose: 30 mg Mirtazapine (Remeron -) 15 mg PO [facility] Last Admin: 05/17/18 21:17 Dose: 15 mg Nystatin (Nystop Powder -) 1 applic TP BID [facility] Last Admin: 05/18/18 11:48 Dose: 1 applic Pantoprazole Sodium (Protonix -) 40 mg PO DAILY [facility] Last Admin: 05/18/18 10:51 Dose: 40 mg Polyethylene Glycol (Miralax (For Daily Use) -) 17 gm PO DAILY [facility] Last Admin: 05/18/18 10:52 Dose: Not Given Senna (Senna -) 2 tab PO [facility] Last Admin: 05/17/18 21:18 Dose: Not Given Trazodone HCl (Desyrel -) 50 mg PO [facility] Last Admin: 05/17/18 21:17 Dose: 50 mg CBC, BMP 05/17/18 05:50 05/17/18 05:50 Physical Examination Constitutional: Yes: No Distress, comfortable Eyes: Yes: Conjunctiva Clear Neck: Yes: Other (s/p trach- vent)-- Cardiovascular: Yes: Regular Rate and Rhythm Respiratory: Yes: Diminished/ scattered rhonchi Gastrointestinal: Yes: Soft/ non- tender Edema: No Neurological: Yes: Alert Psychiatric: Yes: Alert Assessment/Plan clinically stable Vent support--weaning as tolerated Steroids-- Meds reviewed continue present care We will follow discussed with nursing staff. Problem List - Problems (1) COPD exacerbation Code(s): J44.1 - CHRONIC OBSTRUCTIVE PULMONARY DISEASE W (ACUTE) EXACERBATION (2) Respiratory distress Code(s): R06.03 - ACUTE RESPIRATORY DISTRESS (3) Acute on chronic respiratory failure with hypoxia and hypercapnia Code(s): J96.21 - ACUTE AND CHRONIC RESPIRATORY FAILURE WITH HYPOXIA; J96.22 - ACUTE AND CHRONIC RESPIRATORY FAILURE WITH HYPERCAPNIA (4) Bipolar 1 disorder Code(s): F31.9 - BIPOLAR DISORDER, UNSPECIFIED (5) Diabetes Code(s): E11.9 - TYPE 2 DIABETES MELLITUS WITHOUT COMPLICATIONS (6) Morbid obesity Code(s): E66.01 - MORBID (SEVERE) OBESITY DUE TO EXCESS CALORIES (7) Tracheostomy dependence Code(s): Z93.0 - TRACHEOSTOMY STATUS
--- NOTE | 2018-05-18 13:53 | PN ---
Progress Note, Physician History of Present Illness: pulmonary alert,no distress on vent support alt with trach collar - Current Medication List Current Medications: Active Medications Acetaminophen (Tylenol -) 650 mg PO DAILY [facility] Last Admin: 05/18/18 10:51 Dose: 650 mg Aripiprazole (Abilify) 5 mg PO DAILY [facility] Last Admin: 05/18/18 11:48 Dose: 5 mg Aspirin (Asa -) 81 mg PO DAILY [facility] Last Admin: 05/18/18 10:51 Dose: 81 mg Atorvastatin Calcium (Lipitor -) 20 mg PO HS [facility] Last Admin: 05/17/18 21:17 Dose: 20 mg Budesonide/Formoterol Fumarate (Symbicort 160/4.5mcg -) 2 puff IH BID [facility] Last Admin: 05/18/18 11:48 Dose: 2 puff Diphenhydramine HCl (Benadryl -) 25 mg PO HS PRN PRN Reason: INSOMNIA Last Admin: 05/18/18 02:31 Dose: 25 mg Docusate Sodium (Colace -) 100 mg PO HS [facility] Last Admin: 05/17/18 21:17 Dose: 100 mg Enoxaparin Sodium (Lovenox -) 40 mg SQ DAILY [facility] Last Admin: 05/18/18 10:51 Dose: 40 mg Ergocalciferol (Drisdol -) 50,000 unit PO Q7D@1000 [facility] Last Admin: 05/17/18 10:31 Dose: 50,000 unit Escitalopram Oxalate (Lexapro -) 20 mg PO DAILY [facility] Last Admin: 05/18/18 10:51 Dose: 20 mg Furosemide (Lasix -) 20 mg PO DAILY [facility] Last Admin: 05/18/18 10:51 Dose: 20 mg Hydroxyzine HCl (Atarax -) 25 mg PO TID [facility] Last Admin: 05/18/18 13:30 Dose: 25 mg Insulin Aspart (Novolog Vial Sliding Scale -) 1 vial SQ TIDAC [facility]; Protocol Last Admin: 05/18/18 12:52 Dose: Not Given Lactobacillus Acidophilus (Bacid -) 1 tab PO BID [facility] Last Admin: 05/18/18 10:51 Dose: 1 tab Levothyroxine Sodium (Synthroid -) 25 mcg PO DAILY@0700 [facility] Last Admin: 05/18/18 06:04 Dose: 25 mcg Magnesium Hydroxide (Milk Of Magnesia -) 30 ml PO ASDIR PRN PRN Reason: CONSTIPATION Methylprednisolone Sodium Succinate (Solu-Medrol -) 30 mg IVPUSH BID [facility] Last Admin: 05/18/18 10:51 Dose: 30 mg Mirtazapine (Remeron -) 15 mg PO [facility] Last Admin: 05/17/18 21:17 Dose: 15 mg Nystatin (Nystop Powder -) 1 applic TP BID [facility] Last Admin: 05/18/18 11:48 Dose: 1 applic Pantoprazole Sodium (Protonix -) 40 mg PO DAILY [facility] Last Admin: 05/18/18 10:51 Dose: 40 mg Polyethylene Glycol (Miralax (For Daily Use) -) 17 gm PO DAILY [facility] Last Admin: 05/18/18 10:52 Dose: Not Given Senna (Senna -) 2 tab PO [facility] Last Admin: 05/17/18 21:18 Dose: Not Given Trazodone HCl (Desyrel -) 50 mg PO [facility] Last Admin: 05/17/18 21:17 Dose: 50 mg - Objective Vital Signs: Vital Signs Temperature 97.8 F 05/18/18 06:00 Pulse Rate 82 05/18/18 09:04 Respiratory Rate 23 H 05/18/18 06:25 Blood Pressure 134/73 05/18/18 06:00 O2 Sat by Pulse Oximetry (%) 96 05/18/18 09:04 Constitutional: Yes: Calm, Obese Eyes: Yes: WNL HENT: Yes: WNL Neck: Yes: Supple (trach) Cardiovascular: Yes: Regular Rate and Rhythm, S1, S2 Respiratory: Yes: Rhonchi (scattered wheezes and rhonchi), Wheezes Gastrointestinal: Yes: Normal Bowel Sounds, Soft Extremities: Yes: WNL Edema: No Labs: CBC, BMP Problem List - Problems (1) COPD exacerbation Code(s): J44.1 - CHRONIC OBSTRUCTIVE PULMONARY DISEASE W (ACUTE) EXACERBATION (2) Respiratory distress Code(s): R06.03 - ACUTE RESPIRATORY DISTRESS (3) Acute on chronic respiratory failure with hypoxia and hypercapnia Code(s): J96.21 - ACUTE AND CHRONIC RESPIRATORY FAILURE WITH HYPOXIA; J96.22 - ACUTE AND CHRONIC RESPIRATORY FAILURE WITH HYPERCAPNIA (4) Bipolar 1 disorder Code(s): F31.9 - BIPOLAR DISORDER, UNSPECIFIED (5) Depression Code(s): F32.9 - MAJOR DEPRESSIVE DISORDER, SINGLE EPISODE, UNSPECIFIED (6) Diabetes Code(s): E11.9 - TYPE 2 DIABETES MELLITUS WITHOUT COMPLICATIONS (7) Morbid obesity Code(s): E66.01 - MORBID (SEVERE) OBESITY DUE TO EXCESS CALORIES (8) Tracheostomy dependence Code(s): Z93.0 - TRACHEOSTOMY STATUS Assessment/Plan IMP ACUTE ON CHRONIC HYPOXEMIC/HYPERCAPNEIC RESPIRATORY FAILURE LIKELY URI COPD H/O CHF BIPOLAR H/O PNEUMONIA MORBID OBESITY DM PLAN VENT SUPPORT ON AC MODE TRACH COLLAR TOLERATED ABX INHALED BRONCHODILATORS DVT PROPHYLAXIS DR STEELE Problem List - Problems (1) COPD exacerbation Code(s): J44.1 - CHRONIC OBSTRUCTIVE PULMONARY DISEASE W (ACUTE) EXACERBATION (2) Respiratory distress Code(s): R06.03 - ACUTE RESPIRATORY DISTRESS (3) Acute on chronic respiratory failure with hypoxia and hypercapnia Code(s): J96.21 - ACUTE AND CHRONIC RESPIRATORY FAILURE WITH HYPOXIA; J96.22 - ACUTE AND CHRONIC RESPIRATORY FAILURE WITH HYPERCAPNIA (4) Bipolar 1 disorder Code(s): F31.9 - BIPOLAR DISORDER, UNSPECIFIED (5) Depression Code(s): F32.9 - MAJOR DEPRESSIVE DISORDER, SINGLE EPISODE, UNSPECIFIED (6) Diabetes Code(s): E11.9 - TYPE 2 DIABETES MELLITUS WITHOUT COMPLICATIONS (7) Morbid obesity Code(s): E66.01 - MORBID (SEVERE) OBESITY DUE TO EXCESS CALORIES (8) Tracheostomy dependence Code(s): Z93.0 - TRACHEOSTOMY STATUS
[2018-05-18] MEDS: ATORVASTATIN CA 20 MG TABLET (FP) PO SCH (21:05)
[2018-05-18] MEDS: DOCUSATE SODIUM 100 MG CAPSULE (FP) PO SCH (21:05)
[2018-05-18] MEDS: MIRTAZAPINE 15 MG TABLET (FP) PO SCH (21:05)
[2018-05-18] MEDS: traZODone HCL 50 MG TABLET (FP) PO SCH (21:05)
[2018-05-18] MEDS: SENNOSIDES 8.6MG TABLET (FP) PO SCH (21:06)
[2018-05-19] MEDS: INSULIN SLIDING SCALE (NOVOLOG) 1 VIAL SQ SCH ×3 (06:07→17:13)
[2018-05-19] MEDS: hydrOXYzine HCL 25 MG TABLET (FP) PO SCH ×3 (06:21→22:15)
[2018-05-19] MEDS: LEVOTHYROXINE NA 25 MCG TABLET (FP) PO SCH (06:21)
[2018-05-19] MEDS: ARIPiprazole 5 MG TABLET (FP) PO SCH (11:01)
[2018-05-19] MEDS: LACTOBACILLUS ACIDOPHILUS 1 TABLET PO SCH ×2 (11:01→22:16)
[2018-05-19] MEDS: ASPIRIN 81 MG CHEWABLE TABLETS PO SCH (11:01)
[2018-05-19] MEDS: FUROSEMIDE 20 MG TABLET (FP) PO SCH (11:02)
[2018-05-19] MEDS: ESCITALOPRAM OXALATE 20 MG TABLET (FP) PO SCH (11:02)
[2018-05-19] MEDS: ENOXAPARIN NA (PORCINE) 40 MG/0.4 ML DISP.SYRIN SQ SCH (11:02)
[2018-05-19] MEDS: NYSTATIN POWDER 100,000 UNITS/GM - 15 GM TOPICAL POWDER TP SCH ×2 (11:03→22:15)
[2018-05-19] MEDS: PANTOPRAZOLE 40 MG TABLET (FP) PO SCH (11:03)
[2018-05-19] MEDS: POLYETHYLENE GLYCOL 3350 119 GM BTL PO SCH (11:03)
[2018-05-19] MEDS: ACETAMINOPHEN 325 MG TABLET (FP) PO SCH (11:04)
[2018-05-19] MEDS: methylPREDNISolone NA SUCC 40 MG/1 ML VIAL IVPUSH SCH ×2 (11:04→22:16)
[2018-05-19] MEDS: BUDESONIDE/FORMETEROL FUMARATE 160/4.5 mcg INHALER IH SCH ×2 (11:04→22:17)
[2018-05-19] MEDS ORDERED: INSULIN (NOVOLOG) ASPART 100 UNITS/ML 10ML VIAL ONE (11:16)
--- NOTE | 2018-05-19 11:47 | PN ---
Progress Note (short form) - Note Progress Note: feels better on trach collar off vent vitals noted Vital Signs - 24 hr 05/18/18 05/18/18 05/18/18 14:41 15:15 15:22 Temperature 98.5 F Pulse Rate 60 Respiratory 15 31 H Rate Blood Pressure 114/69 O2 Sat by Pulse Oximetry (%) 05/18/18 05/18/18 05/18/18 18:49 19:17 21:00 Temperature 97.8 F Pulse Rate 55 L Respiratory 16 28 H 25 H Rate Blood Pressure 124/55 L O2 Sat by Pulse Oximetry (%) 05/18/18 05/19/18 05/19/18 22:30 02:10 06:00 Temperature 98.2 F Pulse Rate 51 L Respiratory 24 H 25 H 20 Rate Blood Pressure 140/73 O2 Sat by Pulse Oximetry (%) 05/19/18 05/19/18 10:20 11:31 Temperature Pulse Rate 67 Respiratory 15 Rate Blood Pressure O2 Sat by Pulse 98 Oximetry (%) Current Medications Generic Name Dose Route Start Last Admin Trade Name Freq PRN Reason Stop Dose Admin Acetaminophen 650 mg 05/11/18 10:00 05/19/18 11:04 Tylenol - PO 650 mg DAILY NOELLE Administration Aripiprazole 5 mg 05/11/18 10:00 05/19/18 11:01 Abilify PO 5 mg DAILY NOELLE Administration Aspirin 81 mg 05/11/18 10:00 05/19/18 11:01 Asa - PO 81 mg DAILY NOELLE Administration Atorvastatin Calcium 20 mg 05/10/18 22:00 05/18/18 21:05 Lipitor - PO 20 mg HS NOELLE Administration Budesonide/Formoterol Fumarate 2 puff 05/10/18 22:00 05/19/18 11:04 Symbicort 160/4.5mcg - IH 2 puff BID NOELLE Administration Diphenhydramine HCl 25 mg 05/16/18 15:18 05/18/18 02:31 Benadryl - PO 25 mg HS PRN Administration INSOMNIA Docusate Sodium 100 mg 05/10/18 22:00 05/18/18 21:05 Colace - PO 100 mg HS NOELLE Administration Enoxaparin Sodium 40 mg 05/10/18 13:15 05/19/18 11:02 Lovenox - SQ 40 mg DAILY NO[facility]LE Administration Ergocalciferol 50,000 unit 05/10/18 13:15 05/17/18 10:31 Drisdol - PO 50,000 unit Q7D@1000 NOELLE Administration Escitalopram Oxalate 20 mg 05/11/18 10:00 05/19/18 11:02 Lexapro - PO 20 mg DAILY [facility]LE Administration Furosemide 20 mg 05/11/18 10:00 05/19/18 11:02 Lasix - PO 20 mg DAILY [facility] Administration Hydroxyzine HCl 25 mg 05/11/18 06:00 05/19/18 06:21 Atarax - PO 25 mg TID NOELLE Administration Insulin Aspart 1 vial 05/10/18 16:30 05/19/18 11:27 Novolog Vial Sliding Scale - SQ Not Given TIDAC [facility] Protocol Lactobacillus Acidophilus 1 tab 05/10/18 22:00 05/19/18 11:01 Bacid - PO 1 tab BID NO[facility]LE Administration Levothyroxine Sodium 25 mcg 05/11/18 07:00 05/19/18 06:21 Synthroid - PO 25 mcg DAILY@0700 NO[facility]LE Administration Magnesium Hydroxide 30 ml 05/10/18 13:07 Milk Of Magnesia - PO ASDIR PRN CONSTIPATION Methylprednisolone Sodium Succinate 30 mg 05/17/18 22:00 05/19/18 11:04 Solu-Medrol - IVPUSH 30 mg BID [facility] Administration Mirtazapine 15 mg 05/10/18 22:00 05/18/18 21:05 Remeron - PO 15 mg HS NOELLE Administration Nystatin 1 applic 05/10/18 22:00 05/19/18 11:03 Nystop Powder - TP 1 applic BID NO[facility]LE Administration Pantoprazole Sodium 40 mg 05/10/18 13:30 05/19/18 11:03 Protonix - PO 40 mg DAILY [facility] Administration Polyethylene Glycol 17 gm 05/11/18 10:00 05/19/18 11:03 Miralax (For Daily Use) - PO Not Given DAILY NOELLE Senna 2 tab 05/10/18 22:00 05/18/18 21:06 Senna - PO Not Given HS NOELLE Trazodone HCl 50 mg 05/10/18 22:00 05/18/18 21:05 Desyrel - PO 50 mg HS NO[facility]LE Administration Laboratory Results - last 24 hr 10/30/18 10/31/18 10/31/18 17:33 05:57 11:23 POC Glucometer 134 101 66 S1 S2 RRR Lungs decreased ronchi B/L Edema+ abd- soft, obese, NT A/P on trach collar clinically better continue with meds on Solumedrol q12h Vent at night Protonix Problem List - Problems (1) COPD exacerbation Code(s): J44.1 - CHRONIC OBSTRUCTIVE PULMONARY DISEASE W (ACUTE) EXACERBATION (2) Respiratory distress Code(s): R06.03 - ACUTE RESPIRATORY DISTRESS (3) Acute respiratory failure Code(s): J96.00 - ACUTE RESPIRATORY FAILURE, UNSP W HYPOXIA OR HYPERCAPNIA Qualifiers: Respiratory failure complication: hypoxia Qualified Code(s): J96.01 - Acute respiratory failure with hypoxia (4) Bipolar 1 disorder Code(s): F31.9 - BIPOLAR DISORDER, UNSPECIFIED
--- NOTE | 2018-05-19 12:20 | PN ---
Progress Note, Physician History of Present Illness: pulmonary alert,no distress on trach collar - Current Medication List Current Medications: Active Medications Acetaminophen (Tylenol -) 650 mg PO DAILY [facility] Last Admin: 05/19/18 11:04 Dose: 650 mg Aripiprazole (Abilify) 5 mg PO DAILY [facility] Last Admin: 05/19/18 11:01 Dose: 5 mg Aspirin (Asa -) 81 mg PO DAILY [facility] Last Admin: 05/19/18 11:01 Dose: 81 mg Atorvastatin Calcium (Lipitor -) 20 mg PO HS [facility] Last Admin: 05/18/18 21:05 Dose: 20 mg Budesonide/Formoterol Fumarate (Symbicort 160/4.5mcg -) 2 puff IH BID [facility] Last Admin: 05/19/18 11:04 Dose: 2 puff Diphenhydramine HCl (Benadryl -) 25 mg PO HS PRN PRN Reason: INSOMNIA Last Admin: 05/18/18 02:31 Dose: 25 mg Docusate Sodium (Colace -) 100 mg PO HS [facility] Last Admin: 05/18/18 21:05 Dose: 100 mg Enoxaparin Sodium (Lovenox -) 40 mg SQ DAILY [facility] Last Admin: 05/19/18 11:02 Dose: 40 mg Ergocalciferol (Drisdol -) 50,000 unit PO Q7D@1000 [facility] Last Admin: 05/17/18 10:31 Dose: 50,000 unit Escitalopram Oxalate (Lexapro -) 20 mg PO DAILY [facility] Last Admin: 05/19/18 11:02 Dose: 20 mg Furosemide (Lasix -) 20 mg PO DAILY [facility] Last Admin: 05/19/18 11:02 Dose: 20 mg Hydroxyzine HCl (Atarax -) 25 mg PO TID [facility] Last Admin: 05/19/18 06:21 Dose: 25 mg Insulin Aspart (Novolog Vial Sliding Scale -) 1 vial SQ TIDAC [facility]; Protocol Last Admin: 05/19/18 11:27 Dose: Not Given Lactobacillus Acidophilus (Bacid -) 1 tab PO BID [facility] Last Admin: 05/19/18 11:01 Dose: 1 tab Levothyroxine Sodium (Synthroid -) 25 mcg PO DAILY@0700 [facility] Last Admin: 05/19/18 06:21 Dose: 25 mcg Magnesium Hydroxide (Milk Of Magnesia -) 30 ml PO ASDIR PRN PRN Reason: CONSTIPATION Methylprednisolone Sodium Succinate (Solu-Medrol -) 30 mg IVPUSH BID [facility] Last Admin: 05/19/18 11:04 Dose: 30 mg Mirtazapine (Remeron -) 15 mg PO [facility] Last Admin: 05/18/18 21:05 Dose: 15 mg Nystatin (Nystop Powder -) 1 applic TP BID [facility] Last Admin: 05/19/18 11:03 Dose: 1 applic Pantoprazole Sodium (Protonix -) 40 mg PO DAILY [facility] Last Admin: 05/19/18 11:03 Dose: 40 mg Polyethylene Glycol (Miralax (For Daily Use) -) 17 gm PO DAILY [facility] Last Admin: 05/19/18 11:03 Dose: Not Given Senna (Senna -) 2 tab PO [facility] Last Admin: 05/18/18 21:06 Dose: Not Given Trazodone HCl (Desyrel -) 50 mg PO [facility] Last Admin: 05/18/18 21:05 Dose: 50 mg - Objective Vital Signs: Vital Signs Temperature 98.2 F 05/19/18 06:00 Pulse Rate 67 05/19/18 11:31 Respiratory Rate 15 05/19/18 10:20 Blood Pressure 140/73 05/19/18 06:00 O2 Sat by Pulse Oximetry (%) 98 05/19/18 11:31 Constitutional: Yes: Well Nourished, Calm Eyes: Yes: WNL HENT: Yes: WNL Neck: Yes: WNL Cardiovascular: Yes: Regular Rate and Rhythm, S1, S2 Respiratory: Yes: Rhonchi (scattered butch rhonchi) Gastrointestinal: Yes: Normal Bowel Sounds, Soft Extremities: Yes: WNL Edema: No Labs: CBC, BMP Problem List - Problems (1) COPD exacerbation Code(s): J44.1 - CHRONIC OBSTRUCTIVE PULMONARY DISEASE W (ACUTE) EXACERBATION (2) Respiratory distress Code(s): R06.03 - ACUTE RESPIRATORY DISTRESS (3) Acute on chronic respiratory failure with hypoxia and hypercapnia Code(s): J96.21 - ACUTE AND CHRONIC RESPIRATORY FAILURE WITH HYPOXIA; J96.22 - ACUTE AND CHRONIC RESPIRATORY FAILURE WITH HYPERCAPNIA (4) Bipolar 1 disorder Code(s): F31.9 - BIPOLAR DISORDER, UNSPECIFIED (5) Depression Code(s): F32.9 - MAJOR DEPRESSIVE DISORDER, SINGLE EPISODE, UNSPECIFIED (6) Diabetes Code(s): E11.9 - TYPE 2 DIABETES MELLITUS WITHOUT COMPLICATIONS (7) Morbid obesity Code(s): E66.01 - MORBID (SEVERE) OBESITY DUE TO EXCESS CALORIES (8) Tracheostomy dependence Code(s): Z93.0 - TRACHEOSTOMY STATUS Assessment/Plan IMP ACUTE ON CHRONIC HYPOXEMIC/HYPERCAPNEIC RESPIRATORY FAILURE LIKELY URI COPD H/O CHF BIPOLAR H/O PNEUMONIA MORBID OBESITY DM PLAN VENT SUPPORT ON AC MODE TRACH COLLAR TOLERATED ABX INHALED BRONCHODILATORS DVT PROPHYLAXIS tracheal suctioning DR STEELE Problem List - Problems (1) COPD exacerbation Code(s): J44.1 - CHRONIC OBSTRUCTIVE PULMONARY DISEASE W (ACUTE) EXACERBATION (2) Respiratory distress Code(s): R06.03 - ACUTE RESPIRATORY DISTRESS (3) Acute on chronic respiratory failure with hypoxia and hypercapnia Code(s): J96.21 - ACUTE AND CHRONIC RESPIRATORY FAILURE WITH HYPOXIA; J96.22 - ACUTE AND CHRONIC RESPIRATORY FAILURE WITH HYPERCAPNIA (4) Bipolar 1 disorder Code(s): F31.9 - BIPOLAR DISORDER, UNSPECIFIED (5) Depression Code(s): F32.9 - MAJOR DEPRESSIVE DISORDER, SINGLE EPISODE, UNSPECIFIED (6) Diabetes Code(s): E11.9 - TYPE 2 DIABETES MELLITUS WITHOUT COMPLICATIONS (7) Morbid obesity Code(s): E66.01 - MORBID (SEVERE) OBESITY DUE TO EXCESS CALORIES (8) Tracheostomy dependence Code(s): Z93.0 - TRACHEOSTOMY STATUS
[2018-05-19] MEDS: ALBUTEROL SO4 0.083% IH SOL 2.5 MG/3 ML VIAL.NEB. NEB SCH ×3 (12:59→20:10)
[2018-05-19] MEDS ORDERED: PT OWN MED DRAWER 7, Y5N ONE ×2 (19:48→20:49)
[2018-05-19] MEDS: ATORVASTATIN CA 20 MG TABLET (FP) PO SCH (22:15)
[2018-05-19] MEDS: DOCUSATE SODIUM 100 MG CAPSULE (FP) PO SCH (22:15)
[2018-05-19] MEDS: SENNOSIDES 8.6MG TABLET (FP) PO SCH (22:16)
[2018-05-19] MEDS: traZODone HCL 50 MG TABLET (FP) PO SCH (22:16)
[2018-05-19] MEDS: MIRTAZAPINE 15 MG TABLET (FP) PO SCH (22:16)
[2018-05-19] MEDS: diphenhydrAMINE HCL 25 MG CAPSULE (FP) PO PRN (23:33)
[2018-05-20] MEDS ORDERED: INSULIN (NOVOLOG) ASPART 100 UNITS/ML 10ML VIAL ONE (05:59)
[2018-05-20] MEDS: LEVOTHYROXINE NA 25 MCG TABLET (FP) PO SCH (06:11)
[2018-05-20] MEDS: hydrOXYzine HCL 25 MG TABLET (FP) PO SCH ×2 (06:11→14:00)
[2018-05-20] MEDS: INSULIN SLIDING SCALE (NOVOLOG) 1 VIAL SQ SCH ×2 (06:13→11:56)
[2018-05-20] MEDS ORDERED: PT OWN MED DRAWER 7, Y5N ONE (06:27)
[2018-05-20 06:43] LABS: HEMATOCRIT 39.1 % (32.4-45.2); HEMOGLOBIN 11.9 GM/dL (10.7-15.3); MCH 26.4 pg (25.7-33.7); MCHC 30.4 g/dl (32.0-36.0); MEAN PLT VOLUME 7.3 fl (7.5-11.1); PLATELET COUNT 335 K/MM3 (134-434); WHITE BLOOD COUNT 9.1 K/mm3 (4.0-10.0)
[2018-05-20 07:23] LABS: BLOOD UREA NITROGEN 22 mg/dL (7-18); CREATININE 0.5 mg/dL (0.55-1.3); GLUCOSE,RANDOM 93 mg/dL (74-106)
[2018-05-20 07:24] LABS: ALBUMIN 3.4 g/dl (3.4-5.0); ALK PHOS 65 U/L (45-117); ANION GAP 7 MMOL/L (8-16); BILIRUBIN,TOTAL 0.3 mg/dL (0.2-1); CALCIUM 9.2 mg/dL (8.5-10.1); CHLORIDE 99 mmol/L (98-107); CO2 33 mmol/L (21-32); POTASSIUM 4.9 mmol/L (3.5-5.1); SGOT/AST 6 U/L (15-37); SGPT/ALT 26 U/L (13-61); SODIUM 139 mmol/L (136-145); TOT PROT 6.5 g/dl (6.4-8.2)
[2018-05-20] MEDS: ALBUTEROL SO4 0.083% IH SOL 2.5 MG/3 ML VIAL.NEB. NEB SCH ×2 (09:48→13:05)
[2018-05-20] MEDS: ARIPiprazole 5 MG TABLET (FP) PO SCH (10:11)
[2018-05-20] MEDS: LACTOBACILLUS ACIDOPHILUS 1 TABLET PO SCH (10:12)
[2018-05-20] MEDS: ASPIRIN 81 MG CHEWABLE TABLETS PO SCH (10:12)
[2018-05-20] MEDS: PANTOPRAZOLE 40 MG TABLET (FP) PO SCH (10:13)
[2018-05-20] MEDS: POLYETHYLENE GLYCOL 3350 119 GM BTL PO SCH (10:13)
[2018-05-20] MEDS: NYSTATIN POWDER 100,000 UNITS/GM - 15 GM TOPICAL POWDER TP SCH (10:13)
[2018-05-20] MEDS: methylPREDNISolone NA SUCC 40 MG/1 ML VIAL IVPUSH SCH (10:14)
[2018-05-20] MEDS: BUDESONIDE/FORMETEROL FUMARATE 160/4.5 mcg INHALER IH SCH (10:17)
[2018-05-20] MEDS: ACETAMINOPHEN 325 MG TABLET (FP) PO SCH (10:17)
[2018-05-20] MEDS: ESCITALOPRAM OXALATE 20 MG TABLET (FP) PO SCH (10:18)
[2018-05-20] MEDS: ENOXAPARIN NA (PORCINE) 40 MG/0.4 ML DISP.SYRIN SQ SCH (10:18)
[2018-05-20] MEDS: FUROSEMIDE 20 MG TABLET (FP) PO SCH (10:19)
--- NOTE | 2018-05-20 11:33 | PN ---
Progress Note (short form) - Note Progress Note: Feels overall better. On Trach collar. Less cough and wheeze. Intake & Output 05/17/18 05/18/18 05/19/18 05/20/18 23:59 23:59 23:59 23:59 Intake Total 1220 800 830 700 Balance 1220 800 830 700 Last Vital Signs Temp Pulse Resp BP Pulse Ox 97.8 F 56 L 12 143/77 94 L 05/20/18 06:00 05/20/18 06:00 05/20/18 09:00 05/20/18 06:00 05/19/18 15:56 Active Medications Acetaminophen (Tylenol -) 650 mg PO DAILY [facility] Last Admin: 05/20/18 10:17 Dose: 650 mg Albuterol Sulfate (Ventolin 0.083% Nebulizer Soln -) 1 amp NEB RQID [facility] Last Admin: 05/20/18 09:48 Dose: 1 amp Aripiprazole (Abilify) 5 mg PO DAILY [facility] Last Admin: 05/20/18 10:11 Dose: 5 mg Aspirin (Asa -) 81 mg PO DAILY [facility] Last Admin: 05/20/18 10:12 Dose: 81 mg Atorvastatin Calcium (Lipitor -) 20 mg PO HS [facility] Last Admin: 05/19/18 22:15 Dose: 20 mg Budesonide/Formoterol Fumarate (Symbicort 160/4.5mcg -) 2 puff IH BID [facility] Last Admin: 05/20/18 10:17 Dose: 2 puff Diphenhydramine HCl (Benadryl -) 25 mg PO HS PRN PRN Reason: INSOMNIA Last Admin: 05/19/18 23:33 Dose: 25 mg Docusate Sodium (Colace -) 100 mg PO HS [facility] Last Admin: 05/19/18 22:15 Dose: 100 mg Enoxaparin Sodium (Lovenox -) 40 mg SQ DAILY [facility] Last Admin: 05/20/18 10:18 Dose: 40 mg Ergocalciferol (Drisdol -) 50,000 unit PO Q7D@1000 [facility] Last Admin: 05/17/18 10:31 Dose: 50,000 unit Escitalopram Oxalate (Lexapro -) 20 mg PO DAILY [facility] Last Admin: 05/20/18 10:18 Dose: 20 mg Furosemide (Lasix -) 20 mg PO DAILY [facility] Last Admin: 05/20/18 10:19 Dose: 20 mg Hydroxyzine HCl (Atarax -) 25 mg PO TID [facility] Last Admin: 05/20/18 06:11 Dose: 25 mg Insulin Aspart (Novolog Vial Sliding Scale -) 1 vial SQ TIDAC [facility]; Protocol Last Admin: 05/20/18 06:13 Dose: Not Given Lactobacillus Acidophilus (Bacid -) 1 tab PO BID [facility] Last Admin: 05/20/18 10:12 Dose: 1 tab Levothyroxine Sodium (Synthroid -) 25 mcg PO DAILY@0700 [facility] Last Admin: 05/20/18 06:11 Dose: 25 mcg Magnesium Hydroxide (Milk Of Magnesia -) 30 ml PO [facility]IR PRN PRN Reason: CONSTIPATION Last Admin: 05/20/18 06:10 Dose: 30 ml Methylprednisolone Sodium Succinate (Solu-Medrol -) 30 mg IVPUSH BID [facility] Last Admin: 05/20/18 10:14 Dose: 30 mg Mirtazapine (Remeron -) 15 mg PO [facility] Last Admin: 05/19/18 22:16 Dose: 15 mg Nystatin (Nystop Powder -) 1 applic TP BID [facility] Last Admin: 05/20/18 10:13 Dose: 1 applic Pantoprazole Sodium (Protonix -) 40 mg PO DAILY [facility] Last Admin: 05/20/18 10:13 Dose: 40 mg Polyethylene Glycol (Miralax (For Daily Use) -) 17 gm PO DAILY [facility] Last Admin: 05/20/18 10:13 Dose: Not Given Senna (Senna -) 2 tab PO [facility] Last Admin: 05/19/18 22:16 Dose: 2 tab Trazodone HCl (Desyrel -) 50 mg PO HS [facility] Last Admin: 05/19/18 22:16 Dose: 50 mg Gen: Comfortable on Trach collar Heart: RRR Lung: bilateral rhonchi, no wheezes appreciated Abd: soft, nontender Ext: no edema Laboratory Results - last 24 hr 05/19/18 05/19/18 05/20/18 11:23 17:11 05:55 WBC 9.1 RBC 4.50 Hgb 11.9 Hct 39.1 MCV 87.0 MCH 26.4 MCHC 30.4 L RDW 14.0 Plt Count 335 D MPV 7.3 L Sodium Potassium Chloride Carbon Dioxide Anion Gap BUN Creatinine Creat Clearance w eGFR POC Glucometer 66 113 Random Glucose Calcium Total Bilirubin AST ALT Alkaline Phosphatase Total Protein Albumin 05/20/18 05/20/18 05:55 06:12 WBC RBC Hgb Hct MCV MCH MCHC RDW Plt Count MPV Sodium 139 Potassium 4.9 Chloride 99 Carbon Dioxide 33 H Anion Gap 7 L BUN 22 H Creatinine 0.5 L Creat Clearance w eGFR > 60 POC Glucometer 102 Random Glucose 93 Calcium 9.2 Total Bilirubin 0.3 AST 6 L ALT 26 Alkaline Phosphatase 65 Total Protein 6.5 Albumin 3.4 A/P Acute on Chronic and Hypercapneic Respiratory Failure Acute COPD Exacerbation Morbid Obesity Bipolar Disorder DM - Can change to Prednisone in AM and D/C to SNF - inhaled bronchodilators standing and PRN - trach collar as tolerated - PO as tolerated - DVT/GI prophylaxis Dr Lagos
[2018-05-20 12:23] VITALS: BP 116/49; TEMP 98
--- NOTE | 2018-05-20 12:27 | DS ---
Physical Examination Vital Signs: Vital Signs Temperature 98 F 05/20/18 10:00 Pulse Rate 83 05/20/18 10:00 Respiratory Rate 18 05/20/18 10:00 Blood Pressure 116/49 L 05/20/18 10:00 O2 Sat by Pulse Oximetry (%) 94 L 05/19/18 15:56 Constitutional: Yes: No Distress, Calm Cardiovascular: Yes: Regular Rate and Rhythm Respiratory: Yes: Diminished Gastrointestinal: Yes: Normal Bowel Sounds, Soft, Abdomen, Obese. No: Tenderness Edema: No Labs: CBC, BMP 05/20/18 05:55 05/20/18 05:55 Discharge Summary Reason For Visit: RESPIRATORY DISTRESS, ACUTE EXACERBATION OF Current Active Problems COPD exacerbation (Acute) Positive blood culture (Acute) Respiratory distress (Acute) Hospital Course: Admitted for acute on chronic respiratory failure Seen by ID and Pulmonary Was not on antibiotics Pt was on Solumedrol and nebs Clinically better stable for dc to NH on PO prednisone A/P Acute on Chronic and Hypercapneic Respiratory Failure Acute COPD Exacerbation Morbid Obesity Bipolar Disorder DM Condition: Improved - Instructions Referrals: Didier Marshall MD [Primary Care Provider] - Disposition: [facility] - Home Medications Comprehensive Discharge Medication List: Ambulatory Orders Acetaminophen 650 mg PO DAILY 10/18/17 Aripiprazole 5 mg PO DAILY 10/18/17 Aspirin 81 mg PO DAILY 10/18/17 Ergocalciferol (Vitamin D2) [Vitamin D2] 50,000 unit PO SA 10/18/17 Furosemide [Lasix -] 20 mg PO DAILY 10/18/17 Heparin Sod,Porcine/0.9 % NaCl [Heparin 5,000 Unit/1,000 ml-Ns] 5,000 unit SCJ BID 10/18/17 Insulin Lispro [Humalog] 0 unit SQ ASDIR 10/18/17 Lactobacillus Acidophilus [Acidophilus] 1 each PO BID 10/18/17 Levothyroxine [Synthroid -] 25 mcg PO DAILY 10/18/17 Mirtazapine 15 mg PO HS 10/18/17 Sennosides [Senna -] 2 tab PO HS tablet 01/18/18 Atorvastatin Ca [Lipitor] 20 mg PO HS 01/24/18 Budesonide/Formeterol Fumarate [SYMBICORT 160/4.5mcg -] 2 inh PO BID 01/24/18 Docusate Sodium [Colace] 100 mg PO HS 01/24/18 Escitalopram Oxalate [Lexapro -] 20 mg PO DAILY 01/24/18 Magnesium Hydroxide [Milk of Magnesia] 30 mg PO ASDIR PRN 01/24/18 Polyethylene Glycol 3350 [Gavilax] 17 gm PO DAILY 01/24/18 Vit A/Vitamin D3/E/Aloe V/Zinc [Periguard Ointment] 1 applic TP BID 01/24/18 Guaifenesin/D-Methorphan Hb [Diabetic Tussin Dm -] 10 ml PO Q4H PRN ml Albuterol 2.5/Ipratropium 0.5 [Duoneb -] 1 amp NEB RQID amp 03/20/18 Nystatin Powder [Nystop Powder -] 1 applic TP BID applic 03/20/18 traZODone HCL [Desyrel -] 50 mg PO HS tablet 03/20/18 hydrOXYzine HCL [Atarax -] 25 mg PO TID 05/10/18
[2018-05-20 13:13] VITALS: PULSE 71
== END 2018-05-20 14:26 | DRG 208 ==
LOC: JER 07:25 → JERBED 12:23 → J5S 21:44
PROVIDERS: ADMIT Internal Medicine; ATTEND Internal Medicine
PROC: 5A1945Z Respiratory Ventilation, 24-96 Consecutive Hours (ICD-10-PCS; principal; 2018-05-10)
PROC: 3E0F7GC Introduction of Other Therapeutic Substance into Respiratory Tract, Via Natural or Artificial Opening (ICD-10-PCS; 2018-05-10)
DX: J44.1 Chronic obstructive pulmonary disease with (acute) exacerbation (principal); J96.21 Acute and chronic respiratory failure with hypoxia; J96.22 Acute and chronic respiratory failure with hypercapnia; Z68.44 Body mass index [BMI] 60.0-69.9, adult; Z99.11 Dependence on respirator [ventilator] status; I50.9 Heart failure, unspecified; G40.909 Epilepsy, unspecified, not intractable, without status epilepticus; F31.9 Bipolar disorder, unspecified; E66.01 Morbid (severe) obesity due to excess calories; Z93.0 Tracheostomy status; E11.9 Type 2 diabetes mellitus without complications; Z79.4 Long term (current) use of insulin; E07.9 Disorder of thyroid, unspecified; Z87.891 Personal history of nicotine dependence; Z66 Do not resuscitate
CPT/HCPCS: 36415; 36600; 71045-TC-FY; 80053; 82375; 82550; 82803; 82962; 83050; 83605; 83880; 84484; 85025; 85027; 85610; 85730; 87040; 93005; 93010; 94002; 94640; 97161-GP; 99284-25; J7030

== ENCOUNTER 2018-06-02 13:37 | Inpatient (IN) | payer OTHER ==
--- NOTE | 2018-06-02 14:33 | PDOC ---
History of Present Illness <Sanna Deluna - Last Filed: 06/02/18 16:48> - General History Source: Patient, EMS, [facility] Records Exam Limitations: No Limitations - History of Present Illness Initial Comments: 06/02/18 14:27 The patient is a 53F with a PMH of CHF, chronic hypercapnia, hypoxic respiratory failure, COPD, seizure disorder, bipolar disorder, and trach dependency who presents to the ER with complaints of shortness of breath. The patient states that she became short of breath this morning. Per [place] RT, they removed her inner cannula and tried to suction her x 2 with a suction catheter without success. EMS was called for transport. She has no acute complaints. She denies any CP, fever, chills, cough, dysuria. <Jacob Cardoso - Last Filed: 06/02/18 18:14> - General Chief Complaint: Shortness of Breath Stated Complaint: Respiratory Distress Time Seen by Provider: 06/02/18 13:54 Past History <Sanna Deluna - Last Filed: 06/02/18 16:48> - Past Medical History Cardiac Disorders: (heart failure- 2013) COPD: Yes CHF: Yes Psychiatric Problems: Yes (bipolar) Seizures: Yes Thyroid Disease: Yes - Surgical History Appendectomy: No Gastric Stapling: No - Immunization History Immunization Up to Date: Yes - Suicide/Smoking/Psychosocial Hx Smoking Status: No Smoking History: Former smoker Have you smoked in the past 12 months: No Number of Cigarettes Smoked Daily: 5 If you are a former smoker, when did you quit?: 2013 Information on smoking cessation initiated: No 'Breaking Loose' booklet given: 05/11/18 Hx Alcohol Use: No Drug/Substance Use Hx: No Substance Use Type: None Hx Substance Use Treatment: No <Jacob Cardoso - Last Filed: 06/02/18 18:14> - Past Medical History Allergies/Adverse Reactions: Allergies Allergy/AdvReac Type Severity Reaction Status Date / Time No Known Allergies Allergy Unverified 03/11/18 06:28 Home Medications: Ambulatory Orders Acetaminophen 650 mg PO DAILY 10/18/17 Aripiprazole 5 mg PO DAILY 10/18/17 Aspirin 81 mg PO DAILY 10/18/17 Ergocalciferol (Vitamin D2) [Vitamin D2] 50,000 unit PO SA 10/18/17 Furosemide [Lasix -] 20 mg PO DAILY 10/18/17 Heparin Sod,Porcine/0.9 % NaCl [Heparin 5,000 Unit/1,000 ml-Ns] 5,000 unit SCJ BID 10/18/17 Insulin Lispro [Humalog] 0 unit SQ ASDIR 10/18/17 Lactobacillus Acidophilus [Acidophilus] 1 each PO BID 10/18/17 Levothyroxine [Synthroid -] 25 mcg PO DAILY 10/18/17 Mirtazapine 15 mg PO HS 10/18/17 Sennosides [Senna -] 2 tab PO HS tablet 01/18/18 Atorvastatin Ca [Lipitor] 20 mg PO HS 01/24/18 Budesonide/Formeterol Fumarate [SYMBICORT 160/4.5mcg -] 2 inh PO BID 01/24/18 Docusate Sodium [Colace] 100 mg PO HS 01/24/18 Escitalopram Oxalate [Lexapro -] 20 mg PO DAILY 01/24/18 Magnesium Hydroxide [Milk of Magnesia] 30 mg PO ASDIR PRN 01/24/18 Polyethylene Glycol 3350 [Gavilax] 17 gm PO DAILY 01/24/18 Vit A/Vitamin D3/E/Aloe V/Zinc [Periguard Ointment] 1 applic TP BID 01/24/18 Guaifenesin/D-Methorphan Hb [Diabetic Tussin Dm -] 10 ml PO Q4H PRN ml Albuterol 2.5/Ipratropium 0.5 [Duoneb -] 1 amp NEB RQID amp 03/20/18 Nystatin Powder [Nystop Powder -] 1 applic TP BID applic 03/20/18 traZODone HCL [Desyrel -] 50 mg PO HS tablet 03/20/18 hydrOXYzine HCL [Atarax -] 25 mg PO TID 05/10/18 Pantoprazole Sodium [Protonix -] 40 mg PO DAILY #60 tablet.ec 05/20/18 Prednisone See Taper PO DAILY #30 tab.ds.pk 05/20/18 Review of Systems - Review of Systems Able to Perform ROS?: Yes Comments:: 06/02/18 14:33 GENERAL/CONSTITUTIONAL: No fever or chills. No weakness. HEAD, EYES, EARS, NOSE AND THROAT: No change in vision. No ear pain or discharge. No sore throat. CARDIOVASCULAR: No chest pain, palpitations, or lightheadedness. RESPIRATORY: Positive for resolved SOB. No cough, wheezing, or hemoptysis. GASTROINTESTINAL: No nausea, vomiting, diarrhea, constipation, or abdominal pain. GENITOURINARY: No dysuria, frequency, hematuria, or change in urination. MUSCULOSKELETAL: No joint or muscle swelling or pain. No neck or back pain. SKIN: No rash or lesions. NEUROLOGIC: No headache, numbness, tingling, focal weakness, loss of consciousness, or change in strength/sensation. Is the patient limited Kazakh proficient: No <Jacob Cardoso - Last Filed: 06/02/18 18:14> *Physical Exam - Vital Signs Last Vital Signs Temp Pulse Resp BP Pulse Ox 97.9 F 70 16 94/51 L 96 06/02/18 16:24 06/02/18 16:24 06/02/18 16:24 06/02/18 16:24 06/02/18 16:24 <Sanna Deluna - Last Filed: 06/02/18 16:48> - Vital Signs Last Vital Signs Temp Pulse Resp BP Pulse Ox 84 98 06/02/18 14:08 06/02/18 14:08 - Physical Exam Comments: 06/02/18 14:42 GENERAL: Well developed, well nourished. Awake and alert. No acute distress. HEENT: Normocephalic, atraumatic. Hearing grossly normal. Moist mucous membranes. PERRLA, EOMI. No conjunctival pallor. Sclera are non-icteric. NECK: Supple. Full ROM. Trach present and patent. CARDIOVASCULAR: Regular rate and rhythm. No murmurs, rubs, or gallops. PULMONARY: No evidence of respiratory distress. Coarse breath sounds on L side. ABDOMINAL: Soft. Non-tender. Non-distended. No rebound or guarding. GENITOURINARY: No CVA tenderness bilaterally. MUSCULOSKELETAL: Normal range of motion at all joints. No bony deformities or tenderness. EXTREMITIES: No cyanosis. No clubbing. No edema. No calf tenderness or swelling. SKIN: Warm and dry. Normal capillary refill. No rashes. No jaundice. NEUROLOGICAL: Alert, awake, appropriate. Cranial nerves 2-12 grossly intact. Normal speech. PSYCHIATRIC: Cooperative. Good eye contact. Appropriate mood and affect. <Jacob Cardoso - Last Filed: 06/02/18 18:14> ED Treatment Course - LABORATORY CBC & Chemistry Diagram: 06/02/18 14:30 06/02/18 14:30 - ADDITIONAL ORDERS Additional order review: Laboratory Results 06/02/18 06/02/18 06/02/18 14:33 14:30 14:30 PT with INR INR PTT (Actin FS) VBG pH POC VBG pCO2 POC VBG pO2 Mixed VBG HCO3 Sodium 141 Potassium 4.2 Chloride 96 L Carbon Dioxide 45 H Anion Gap 1 L BUN 17 Creatinine 0.4 L Creat Clearance w eGFR > 60 Random Glucose 93 Lactic Acid 0.8 Calcium 8.4 L Total Bilirubin 0.5 AST 31 ALT 54 Alkaline Phosphatase 93 Troponin I < 0.02 Total Protein 6.2 L Albumin 3.0 L 06/02/18 06/02/18 14:30 14:30 PT with INR 12.30 INR 1.04 PTT (Actin FS) 27.4 VBG pH 7.30 L POC VBG pCO2 61.8 H* D POC VBG pO2 58.7 H D Mixed VBG HCO3 29.2 H Sodium Potassium Chloride Carbon Dioxide Anion Gap BUN Creatinine Creat Clearance w eGFR Random Glucose Lactic Acid Calcium Total Bilirubin AST ALT Alkaline Phosphatase Troponin I Total Protein Albumin 06/02/18 14:30 RBC 3.82 MCV 89.1 MCHC 31.9 L RDW 14.1 MPV 7.6 Neutrophils % 84.6 H Lymphocytes % 10.4 D Monocytes % 3.8 Eosinophils % 0.9 D Basophils % 0.3 - Consult/PCP Time Called: 16:40 (Called service, awaiting call back) Case discussed with personal care physician: Josie Rojo <Sanna Deluna - Last Filed: 06/02/18 16:48> - LABORATORY CBC & Chemistry Diagram: 06/02/18 14:30 06/02/18 14:30 - RADIOLOGY Radiology Studies Ordered: Category Date Time Status CHEST X-RAY PORTABLE* [RAD] Stat Radiology 06/02/18 14:06 Ordered <Jacob Cardoso - Last Filed: 06/02/18 18:14> Medical Decision Making - Medical Decision Making 06/02/18 14:43 The patient is a 53F with multiple medical problems who presents to the ER with complaints of shortness of breath. RT at bedside who suctioned her and removed a mucus plug. However, pt has coarse breath sounds in L side. Will order CXR. During stay, pt became hypotensive with good MAP. Will establish IV access, give fluid bolus, and send labwork. Pending labs and imaging. I d/w RT at [facility] who state that the patient is on 40% O2 normally with sats between 92-94. He is nocturnally vented. This morning, she had difficulty breathing. Her inner cannulla was taken out, and a suction catheter was passed x 2 without success and EMS was called. 06/02/18 16:43 CBC, CMP WNL. Pt is slightly acidotic 7.3 but is compensated. Pt is now back to normal O2 requirement but is tachypneic. CXR preliminary read unremarkable but poor film. Dr. Rojo called for obs. 06/02/18 18:14 I have endorse the patient to [facility] for obs. <Jacob Cardoso - Last Filed: 06/02/18 18:14> *DC/Admit/Observation/Transfer <Sanna Deluna - Last Filed: 06/02/18 16:48> - Discharge Dispostion Decision to Admit order: Yes <Jacob Cardoso - Last Filed: 06/02/18 18:14> Diagnosis at time of Disposition: Acute on chronic respiratory failure with hypoxia and hypercapnia - Discharge Dispostion Condition at time of disposition: Guarded - Referrals Referrals: Didier Marshall MD [Primary Care Provider] - - Patient Instructions - Post Discharge Activity
--- NOTE | 2018-06-02 15:04 | PDOC ---
Attending Attestation - Resident Resident Name: Jacob Cardoso - ED Attending Attestation I have performed the following: I have examined & evaluated the patient, The case was reviewed & discussed with the resident, I agree w/resident's findings & plan, Exceptions are as noted - HPI HPI: 06/02/18 14:55 53 F with h/o CHF, chronic hypercapnia, hypoxic respiratory failure, COPD, seizure disorder, bipolar disorder, and trach dependency, presenting with SOB and hypoxia. Per NH staff, pt was found to be desatting to 80s. They suctioned her, believing she had a mucus plug. However, they were unable to clear the trach. EMS reports that en route, pt required constant bagging to maintain O2 sat >90. In ED, pt was suctioned with removal of large mucus plug. Pt reports significant improvement in her breathing subsequently. - Physicial Exam PE: 06/02/18 15:04 GENERAL: Awake, alert, and fully oriented, in no acute distress. HEAD: No signs of trauma EYES: PERRLA, EOMI, sclera anicteric, conjunctiva clear ENT: Auricles normal inspection, hearing grossly normal, nares patent, oropharynx clear without exudates. Moist mucosa NECK: + Trach, Nontender, no stepoffs, Normal ROM, supple, no lymphadenopathy, JVD, or masses LUNGS: + diffuse rhonchi, no wheezes HEART: Regular rate and rhythm, normal S1 and S2, no murmurs, rubs or gallops ABDOMEN: Soft, nontender, normoactive bowel sounds. No guarding, no rebound. No masses EXTREMITIES: Normal range of motion, no edema. No clubbing or cyanosis. No cords, erythema, or tenderness NEUROLOGICAL: Cranial nerves II through XII intact. 5/5 strength and sensation in all extremities, Normal speech, normal gait, normal cerebellar function SKIN: Warm, Dry, normal turgor, no rashes or lesions noted. - Critical Care Time Total Critical Care Time: 60 Critical Care Statement: The care of this patient involved high complexity decision making to prevent further life threatening deterioration of the patient 's condition and/or to evaluate & treat vital organ system(s) failure or risk of failure. - Medical Decision Making 06/02/18 15:05 53 F with hypoxia and SOB. Symptoms improved after suction of mucus plug. However, pt persistently hypoxic, requiring more O2 than normal to maintain sats. Pt also with low BP. Will evaluate for sepsis. - Labs, cultures - CXR - IVF
[2018-06-02 15:06] VITALS: BMI 62.3
[2018-06-02 15:38] LABS: BASO % 0.3 % (0-2.0); EOS % 0.9 % (0-4.5); HEMATOCRIT 34.1 % (32.4-45.2); HEMOGLOBIN 10.9 GM/dL (10.7-15.3); LYMPH % 10.4 % (8-40); MCH 28.5 pg (25.7-33.7); MCHC 31.9 g/dl (32.0-36.0); MEAN CELL VOLUME 89.1 fl (80-96); MEAN PLT VOLUME 7.6 fl (7.5-11.1); MONO % 3.8 % (3.8-10.2); NEUT % 84.6 % (42.8-82.8); PLATELET COUNT 138 K/MM3 (134-434); RBC 3.82 M/mm3 (3.60-5.2); RDW 14.1 % (11.6-15.6); WHITE BLOOD COUNT 6.3 K/mm3 (4.0-10.0)
[2018-06-02 15:40] LABS: VENOUS PC02 61.8 mmHg (38-52); VENOUS PH 7.3 (7.32-7.42); VENOUS PO2 58.7 mmHg (28-48)
[2018-06-02 15:56] LABS: INR 1.04 (0.83-1.09); PROTHROMBIN TIME (PATIENT) 12.3 SEC (9.7-13.0)
[2018-06-02 15:58] LABS: ACTIVATED PTT 27.4 SECONDS (25.2-36.5)
[2018-06-02 16:30] LABS: ALK PHOS 93 U/L (45-117); ANION GAP 1 MMOL/L (8-16); BILIRUBIN,TOTAL 0.5 mg/dL (0.2-1); BLOOD UREA NITROGEN 17 mg/dL (7-18); CALCIUM 8.4 mg/dL (8.5-10.1); CHLORIDE 96 mmol/L (98-107); CO2 45 mmol/L (21-32); CREATININE 0.4 mg/dL (0.55-1.3); GLUCOSE,RANDOM 93 mg/dL (74-106); POTASSIUM 4.2 mmol/L (3.5-5.1); SGOT/AST 31 U/L (15-37); SGPT/ALT 54 U/L (13-61); SODIUM 141 mmol/L (136-145); TOT PROT 6.2 g/dl (6.4-8.2)
[2018-06-02 16:45] LABS: URINE APPEARANCE CLEAR; URINE BILIRUBIN NEGATIVE (<2.0 mg/dL); URINE COLOR LTYELLOW; URINE GLUCOSE (UA) NEGATIVE (NEGATIVE); URINE KETONE NEGATIVE (NEGATIVE); URINE LEUK ESTERASE NEGATIVE (NEGATIVE); URINE NITRITE NEGATIVE (NEGATIVE); URINE PROTEIN NEGATIVE (NEGATIVE); URINE UROBILINOGEN NEGATIVE mg/dL (0.2-1.0)
[2018-06-02] MEDS ORDERED: SODIUM CHLORIDE 0.9% 1000 ML INFUS.BAG IV ONE (17:34)
--- NOTE | 2018-06-02 19:35 | HP ---
CHIEF COMPLAINT: Respiratory distress, hypoxia PCP: Dr. Josie Rojo HISTORY OF PRESENT ILLNESS: 53 year old female with a PMH significant for CHF, chronic hypercapnia, hypoxic respiratory failure, COPD, DM, HLD, hypothyroidism, bipolar disorder, morbid obesity and trach dependency BIB[facility] to the ED with respiratory distress. [facility] staff reports that patient was found this AM with difficulty breathing, desaturating into the 80s. (Patient is on 40% O2 with a baseline O2 sat range from 92-94%). Her tracheostomy cannula was removed, and a suction catheter was passed, but unable to clear her airway. She denies any CP, fever, chills, cough, dysuria. Upon admission to the ED patient was afebrile, but hyptoensive (89/50) with tachypnia (R22) and O2 sat of 88. Labs notable WNL, ABG slightly acidotic at 7.30, Trop neg, Lactic acid WNL. CXR showed congestive changes since prior study one month ago. Respiratory therapy was able to suction a large mucus plug , and breathing improved though still hypoxic. She was given additional 50% O2 and sats santos back to low 90s. She was given 1 L NS and BP improved to 106/58. Patient reports feeling and breathing much better since arriving at the ED. Recent Travel: No PAST MEDICAL HISTORY: COPD chronic hypercapnia hypoxic respiratory failure (+ trach) CHF DM Seizure disorder Bipolar disorder hypothyroidisim PAST SURGICAL HISTORY: Tracheotomy Social History: Smoking: Former, quit 4 years ago, used to smoke 5 cigarettes/day Alcohol: None Drugs: Former marijuana Family History: Father: , pneumonia Mother: , COPD Allergies No Known Allergies Allergy (Unverified 03/11/18 06:28) HOME MEDICATIONS: Home Medications Medication Instructions Recorded Acetaminophen 1,000 mg PO Q6H PRN 10/18/17 Aripiprazole 5 mg PO DAILY 10/18/17 Aspirin 81 mg PO DAILY 10/18/17 Ergocalciferol (Vitamin D2) 50,000 unit PO SA 10/18/17 [Vitamin D2] Furosemide [Lasix -] 20 mg PO DAILY 10/18/17 Heparin Sod,Porcine/0.9 % NaCl 5,000 unit SCJ BID 10/18/17 [Heparin 5,000 Unit/1,000 ml-Ns] Insulin Lispro [Humalog] 0 unit SQ ASDIR 10/18/17 Lactobacillus Acidophilus 1 each PO BID 10/18/17 [Acidophilus] Levothyroxine [Synthroid -] 25 mcg PO DAILY 10/18/17 Mirtazapine 15 mg PO HS 10/18/17 Sennosides [Senna -] 2 tab PO HS tablet 01/18/18 Atorvastatin Ca [Lipitor] 20 mg PO HS 01/24/18 Budesonide/Formeterol Fumarate 2 inh PO BID 01/24/18 [SYMBICORT 160/4.5mcg -] Docusate Sodium [Colace] 100 mg PO HS 01/24/18 Escitalopram Oxalate [Lexapro -] 20 mg PO DAILY 01/24/18 Magnesium Hydroxide [Milk of 30 mg PO ASDIR PRN 01/24/18 Magnesia] Polyethylene Glycol 3350 [Gavilax] 17 gm PO DAILY 01/24/18 Vit A/Vitamin D3/E/Aloe V/Zinc 1 applic TP BID 01/24/18 [Periguard Ointment] Guaifenesin/D-Methorphan Hb 10 ml PO Q4H PRN ml 03/05/18 [Diabetic Tussin Dm -] Albuterol 2.5/Ipratropium 0.5 1 amp NEB RQID amp 03/20/18 [Duoneb -] traZODone HCL [Desyrel -] 50 mg PO HS tablet 03/20/18 hydrOXYzine HCL [Atarax -] 25 mg PO TID 05/10/18 Pantoprazole Sodium [Protonix -] 40 mg PO DAILY #60 tablet.ec 05/20/18 Prednisone See Taper PO DAILY #30 tab.ds.pk 05/20/18 Clotrimazole/Betamet Diprop 1 applic TP BID 06/02/18 [Lotrisone Cream (Small Tube)] REVIEW OF SYSTEMS CONSTITUTIONAL: Absent: fever, chills, diaphoresis, generalized weakness, malaise, loss of appetite, weight change HEENT: Absent: rhinorrhea, nasal congestion, throat pain, throat swelling, difficulty swallowing, mouth swelling, ear pain, eye pain, visual changes CARDIOVASCULAR: (+) Palpitations intermittently Absent: chest pain, syncope, irregular heart rate, lightheadedness, peripheral edema RESPIRATORY: (+) cough, shortness of breath, wheezing Absent: dyspnea with exertion, orthopnea, stridor, hemoptysis GASTROINTESTINAL: Absent: abdominal pain, abdominal distension, nausea, vomiting, diarrhea, constipation, melena, hematochezia GENITOURINARY: Absent: dysuria, frequency, urgency, hesitancy, hematuria, flank pain, genital pain MUSCULOSKELETAL: (+) myalgia, arthralgia, Absent: joint swelling, back pain, neck pain SKIN: (+) Rash buttocks Absent: itching, pallor HEMATOLOGIC/IMMUNOLOGIC: Absent: easy bleeding, easy bruising, lymphadenopathy, frequent infections ENDOCRINE: Absent: unexplained weight gain, unexplained weight loss, heat intolerance, cold intolerance NEUROLOGIC: (+) Headaches Absent: focal weakness or paresthesias, dizziness, unsteady gait, seizure, mental status changes, bladder or bowel incontinence PSYCHIATRIC: (+) anxiety, depression Absent: suicidal or homicidal ideation, hallucinations. PHYSICAL EXAMINATION Vital Signs - 24 hr 06/02/18 06/02/18 06/02/18 13:58 14:08 14:45 Temperature 98.6 F Pulse Rate 80 84 75 Pulse Rate [ Left Apical] Respiratory 22 H Rate Blood Pressure 89/50 L Blood Pressure [Left Arm] O2 Sat by Pulse 96 98 88 L Oximetry (%) 06/02/18 06/02/18 06/02/18 15:00 16:20 16:24 Temperature 97.9 F Pulse Rate 76 Pulse Rate [ 77 70 Left Apical] Respiratory 16 16 Rate Blood Pressure Blood Pressure 106/58 L 94/51 L [Left Arm] O2 Sat by Pulse 99 92 L 96 Oximetry (%) 06/02/18 06/02/18 17:50 18:38 Temperature 97.8 F Pulse Rate Pulse Rate [ 78 71 Left Apical] Respiratory 16 16 Rate Blood Pressure Blood Pressure 103/54 L 101/54 L [Left Arm] O2 Sat by Pulse 95 94 L Oximetry (%) GENERAL: Obese, awake, alert, and fully oriented, in no acute distress. HEAD: Hair thinning to upper scalp, no signs of trauma. EYES: Pupils equal, round and reactive to light, extraocular movements intact, sclera anicteric, conjunctiva clear. No lid lag. EARS, NOSE, THROAT: Ears normal, nares patent, oropharynx clear without exudates. Moist mucous membranes. NECK: Normal range of motion, supple without lymphadenopathy, JVD, or masses. LUNGS: +Trach, hoarse voice ronchorous breath sounds HEART: Regular rate and rhythm, normal S1 and S2 without murmur, rub or gallop. ABDOMEN: Obese, soft, nontender, not distended, normoactive bowel sounds, no guarding, no rebound, no masses. MUSCULOSKELETAL: No bony deformities or tenderness. UPPER EXTREMITIES: 2+ pulses, warm, well-perfused. No cyanosis. No clubbing. No peripheral edema. LOWER EXTREMITIES: 2+ pulses, warm, well-perfused. No calf tenderness. No peripheral edema. NEUROLOGICAL: No facial droop PSYCHIATRIC: Cooperative. Good eye contact. Appropriate mood and affect. SKIN: Diffuse erythema to inguinal folds b/l Laboratory Results - last 24 hr 06/02/18 06/02/18 06/02/18 14:30 14:30 14:30 WBC 6.3 RBC 3.82 Hgb 10.9 Hct 34.1 MCV 89.1 MCH 28.5 MCHC 31.9 L RDW 14.1 Plt Count 138 D MPV 7.6 Absolute Neuts (auto) 5.3 Neutrophils % 84.6 H Lymphocytes % 10.4 D Monocytes % 3.8 Eosinophils % 0.9 D Basophils % 0.3 Nucleated RBC % 0 PT with INR 12.30 INR 1.04 PTT (Actin FS) 27.4 VBG pH 7.30 L POC VBG pCO2 61.8 H* D POC VBG pO2 58.7 H D Mixed VBG HCO3 29.2 H Sodium Potassium Chloride Carbon Dioxide Anion Gap BUN Creatinine Creat Clearance w eGFR Random Glucose Lactic Acid Calcium Total Bilirubin AST ALT Alkaline Phosphatase Troponin I Total Protein Albumin Urine Color Urine Appearance Urine pH Ur Specific [place] Urine Protein Urine Glucose (UA) Urine Ketones Urine Blood Urine Nitrite Urine Bilirubin Urine Urobilinogen Ur Leukocyte Esterase 06/02/18 06/02/18 06/02/18 14:30 14:30 14:33 WBC RBC Hgb Hct MCV MCH MCHC RDW Plt Count MPV Absolute Neuts (auto) Neutrophils % Lymphocytes % Monocytes % Eosinophils % Basophils % Nucleated RBC % PT with INR INR PTT (Actin FS) VBG pH POC VBG pCO2 POC VBG pO2 Mixed VBG HCO3 Sodium 141 Potassium 4.2 Chloride 96 L Carbon Dioxide 45 H Anion Gap 1 L BUN 17 Creatinine 0.4 L Creat Clearance w eGFR > 60 Random Glucose 93 Lactic Acid 0.8 Calcium 8.4 L Total Bilirubin 0.5 AST 31 ALT 54 Alkaline Phosphatase 93 Troponin I < 0.02 Total Protein 6.2 L Albumin 3.0 L Urine Color Urine Appearance Urine pH Ur Specific [place] Urine Protein Urine Glucose (UA) Urine Ketones Urine Blood Urine Nitrite Urine Bilirubin Urine Urobilinogen Ur Leukocyte Esterase 06/02/18 16:00 WBC RBC Hgb Hct MCV MCH MCHC RDW Plt Count MPV Absolute Neuts (auto) Neutrophils % Lymphocytes % Monocytes % Eosinophils % Basophils % Nucleated RBC % PT with INR INR PTT (Actin FS) VBG pH POC VBG pCO2 POC VBG pO2 Mixed VBG HCO3 Sodium Potassium Chloride Carbon Dioxide Anion Gap BUN Creatinine Creat Clearance w eGFR Random Glucose Lactic Acid Calcium Total Bilirubin AST ALT Alkaline Phosphatase Troponin I Total Protein Albumin Urine Color Ltyellow Urine Appearance Clear Urine pH 5.0 Ur Specific [place] 1.013 Urine Protein Negative Urine Glucose (UA) Negative Urine Ketones Negative Urine Blood Negative Urine Nitrite Negative Urine Bilirubin Negative Urine Urobilinogen Negative Ur Leukocyte Esterase Negative CXR Progressive congestive changes with pleural fluid and infiltrates since 05/14 study. ASSESSMENT/PLAN: 53 year old female with a PMH significant for CHF, chronic hypercapnia, hypoxic respiratory failure, COPD, DM, HLD, hypothyroidism, bipolar disorder, morbid obesity and trach dependency presented to the ED today with SOB and hypoxia even after trach suctioning. She was suctioned in the ED and a mucus plug was removed. She became hypotensive, but BP normalized after fluid bolus. Patient placed on observation for respiratory and blood pressure monitoring. SOB/Hypoxia - Chronic hypercapnia (+ trach) - ABG with slight respiratory acidosis - CXR with congestive changes but patient is afebrile with no leukocytosis, will hold off on antibiotic treatment for now. - Duonebs QID - Trach suctioning qshift. - Trach collar 50% - Maintain O2 sat >92% - Repeat ABG ordered - Blood culture pending Hypotension - Improved, now 103/54 - Monitor BP COPD - Symbicort BID - Prednisone 5 mg PO qday CHF - Lasix 20 mg PO qday DM - Monitor glucose - SS with Novolog HLD - Atorvastatin 20 mg PO qhs Bipolar disorder - Ability 5 mg PO qday - Lexapro 20 mg PO qday - Atarax 25 mg PO TID - Remeron 15 mg PO QHS - Trazodone 50 mg PO QHS Hypothyroidisim - Synthroid 25 mcg qday Constipation - Colace 100 mg QHS - Senna 2 tabs PO QHS - MOM, Miralax PRN Fungal rash - Barrier cream to perineal area - Nystatin powder and Lotrisone cream to inguinal folds BID Supplement - Bacid 1 tab PO BID Morbid Obesity - Dietary counselling FEN - PO intake adequate - Electrolytes replete as indicated - Diabetic diet Prophylaxis - DVT: Heparin 5000 U SQ BID - GI: Protonix 40 mg PO qday Dispo: pt currently requires further inpatient observation, if stable, acceptable to d/c to SNF tomorrow. FULL CODE Visit type - Emergency Visit Emergency Visit: Yes ED Registration Date: 06/02/18 Care time: The patient presented to the Emergency Department on the above date and was hospitalized for further evaluation of their emergent condition. - New Patient This patient is new to me today: Yes Date on this admission: 06/02/18 - Critical Care Critical Care patient: No
[2018-06-02] MEDS ORDERED: ACETAMINOPHEN 500 MG TABLET (FP) PO PRN (19:55)
[2018-06-02] MEDS ORDERED: guaiFENesin/D-M SUGAR-FREE/ACLHOL-FREE 118 ML BOTTLE PO PRN (19:55)
[2018-06-02] MEDS ORDERED: MAGNESIUM HYDROX 2400MG/30ML ORAL SUSPENSION 30 ML CUP PO PRN (19:55)
[2018-06-02] MEDS ORDERED: ALBUTEROL SO4 2.5/IPRATROPIUM 0.5 INH SOL 3 ML VIAL.NEB. NEB ONE (20:11)
[2018-06-02] MEDS: ALBUTEROL SO4 2.5/IPRATROPIUM 0.5 INH SOL 3 ML VIAL.NEB. NEB SCH (20:19)
[2018-06-02] MEDS ORDERED: DOCUSATE SODIUM 100 MG CAPSULE (FP) PO ONE (21:40)
[2018-06-02] MEDS ORDERED: ATORVASTATIN CA 10 MG TABLET (FP) ONE (21:40)
[2018-06-02] MEDS ORDERED: HEPARIN NA (PORCINE) 5,000 UNITS/ML 1ML VIAL ONE (21:41)
[2018-06-02] MEDS ORDERED: MIRTAZAPINE 15 MG TABLET (FP) ONE (21:41)
[2018-06-02] MEDS ORDERED: traZODone HCL 50 MG TABLET (FP) PO SCH (22:00)
[2018-06-02] MEDS ORDERED: DOCUSATE SODIUM 100 MG CAPSULE (FP) PO SCH (22:00)
[2018-06-02] MEDS ORDERED: ATORVASTATIN CA 20 MG TABLET (FP) PO SCH (22:00)
[2018-06-02] MEDS ORDERED: MIRTAZAPINE 15 MG TABLET (FP) PO SCH (22:00)
[2018-06-02] MEDS ORDERED: SENNOSIDES 8.6MG TABLET (FP) PO SCH (22:00)
[2018-06-02] MEDS: HEPARIN NA (PORCINE) 5,000 UNITS/ML 1ML VIAL SQ SCH (22:35)
[2018-06-02] MEDS: BUDESONIDE/FORMETEROL FUMARATE 160/4.5 mcg INHALER IH SCH (22:35)
[2018-06-02] MEDS: hydrOXYzine HCL 25 MG TABLET (FP) PO SCH (22:36)
[2018-06-02] MEDS: LACTOBACILLUS ACIDOPHILUS 1 TABLET PO SCH (22:36)
[2018-06-02] MEDS: NYSTATIN POWDER 100,000 UNITS/GM - 15 GM TOPICAL POWDER TP SCH (22:44)
[2018-06-02] MEDS: CLOTRIMAZOLE/BETAMET DIPROP 15 GM TUBE TP SCH (22:44)
[2018-06-02] MEDS: MINERAL OIL/PETROLAT/WATER TOPICAL CREAM 113 GM JAR TP SCH (22:44)
[2018-06-03] MEDS ORDERED: HEMOQUE CONTROL SOLUTION ONE (01:01)
[2018-06-03 06:24] LABS: HEMATOCRIT 33.9 % (32.4-45.2); HEMOGLOBIN 10.5 GM/dL (10.7-15.3); MCH 27.4 pg (25.7-33.7); MCHC 30.9 g/dl (32.0-36.0); MEAN CELL VOLUME 88.5 fl (80-96); MEAN PLT VOLUME 7.3 fl (7.5-11.1); PLATELET COUNT 128 K/MM3 (134-434); RBC 3.83 M/mm3 (3.60-5.2); RDW 13.7 % (11.6-15.6); WHITE BLOOD COUNT 5.4 K/mm3 (4.0-10.0)
[2018-06-03] MEDS: hydrOXYzine HCL 25 MG TABLET (FP) PO SCH ×3 (06:34→14:52)
[2018-06-03] MEDS ORDERED: INSULIN (NOVOLOG) ASPART 100 UNITS/ML 10ML VIAL ONE (06:36)
[2018-06-03 06:47] LABS: ANION GAP 1 MMOL/L (8-16); BLOOD UREA NITROGEN 19 mg/dL (7-18); CALCIUM 8.6 mg/dL (8.5-10.1); CHLORIDE 99 mmol/L (98-107); CO2 43 mmol/L (21-32); CREATININE 0.4 mg/dL (0.55-1.3); GLUCOSE,RANDOM 90 mg/dL (74-106); POTASSIUM 4.2 mmol/L (3.5-5.1); SODIUM 144 mmol/L (136-145)
[2018-06-03] MEDS: INSULIN SLIDING SCALE (NOVOLOG) 1 VIAL SQ SCH ×3 (06:48→16:54)
[2018-06-03] MEDS ORDERED: LEVOTHYROXINE NA 25 MCG TABLET (FP) PO SCH (07:00)
[2018-06-03] MEDS ORDERED: ALBUTEROL SO4 2.5/IPRATROPIUM 0.5 INH SOL 3 ML VIAL.NEB. NEB ONE ×2 (09:53→16:11)
[2018-06-03] MEDS: ALBUTEROL SO4 2.5/IPRATROPIUM 0.5 INH SOL 3 ML VIAL.NEB. NEB SCH ×3 (09:53→16:12)
[2018-06-03] MEDS ORDERED: ESCITALOPRAM OXALATE 20 MG TABLET (FP) PO SCH (10:00)
[2018-06-03] MEDS ORDERED: FUROSEMIDE 20 MG TABLET (FP) PO SCH (10:00)
[2018-06-03] MEDS ORDERED: ARIPiprazole 5 MG TABLET (FP) PO SCH (10:00)
[2018-06-03] MEDS ORDERED: ASPIRIN 81 MG CHEWABLE TABLETS PO SCH (10:00)
[2018-06-03] MEDS ORDERED: PANTOPRAZOLE 40 MG TABLET (FP) PO SCH (10:00)
[2018-06-03] MEDS ORDERED: POLYETHYLENE GLYCOL 3350 119 GM BTL PO SCH (10:00)
[2018-06-03] MEDS ORDERED: predniSONE 5 MG TABLET (UD) PO SCH (10:00)
--- NOTE | 2018-06-03 10:16 | PN ---
Progress Note (short form) - Note Progress Note: Vital Signs - 24 hr 06/02/18 06/02/18 06/02/18 13:58 14:08 14:45 Temperature 98.6 F Pulse Rate 80 84 75 Pulse Rate [ Left Apical] Respiratory 22 H Rate Blood Pressure 89/50 L Blood Pressure [Left Arm] O2 Sat by Pulse 96 98 88 L Oximetry (%) 06/02/18 06/02/18 06/02/18 15:00 16:20 16:24 Temperature 97.9 F Pulse Rate 76 Pulse Rate [ 77 70 Left Apical] Respiratory 16 16 Rate Blood Pressure Blood Pressure 106/58 L 94/51 L [Left Arm] O2 Sat by Pulse 99 92 L 96 Oximetry (%) 06/02/18 06/02/18 06/02/18 17:50 18:38 20:19 Temperature 97.8 F 98.1 F Pulse Rate Pulse Rate [ 78 71 68 Left Apical] Respiratory 16 16 18 Rate Blood Pressure Blood Pressure 103/54 L 101/54 L 98/51 L [Left Arm] O2 Sat by Pulse 95 94 L 94 L Oximetry (%) 06/02/18 06/02/18 06/03/18 21:31 23:55 02:11 Temperature Pulse Rate Pulse Rate [ 66 Left Apical] Respiratory 18 20 21 H Rate Blood Pressure Blood Pressure 100/55 L [Left Arm] O2 Sat by Pulse 95 Oximetry (%) 06/03/18 06/03/18 06/03/18 05:53 06:30 07:05 Temperature 99.4 F Pulse Rate Pulse Rate [ 70 Left Apical] Respiratory 22 H 24 H 33 H Rate Blood Pressure Blood Pressure 101/56 L [Left Arm] O2 Sat by Pulse 95 Oximetry (%) Current Medications Generic Name Dose Route Start Last Admin Trade Name Freq PRN Reason Stop Dose Admin Acetaminophen 1,000 mg 06/02/18 19:55 Tylenol - PO Q6H PRN PAIN LEVEL 1-5 Albuterol/Ipratropium 1 amp 06/02/18 20:00 06/03/18 09:53 Duoneb - NEB 1 amp RQID NOELLE Administration Aripiprazole 5 mg 06/03/18 10:00 Abilify PO DAILY NOELLE Aspirin 81 mg 06/03/18 10:00 Asa - PO DAILY NOELLE Atorvastatin Calcium 20 mg 06/02/18 22:00 06/02/18 22:34 Lipitor - PO 20 mg HS NOELLE Administration Budesonide/Formoterol Fumarate 2 puff 06/02/18 22:00 06/02/18 22:35 Symbicort 160/4.5mcg - IH 2 puff BID NOELLE Administration Clotrimazole 1 applic 06/02/18 22:00 06/02/18 22:44 Lotrisone Cream (Small Tube) TP Not Given BID [facility] Docusate Sodium 100 mg 06/02/18 22:00 06/02/18 22:34 Colace - PO 100 mg HS NOELLE Administration Escitalopram Oxalate 20 mg 06/03/18 10:00 Lexapro - PO DAILY NOELLE Furosemide 20 mg 06/03/18 10:00 Lasix - PO DAILY NOELLE Guaifenesin 10 ml 06/02/18 19:55 Diabetic Tussin Dm - PO Q4H PRN COUGH Heparin Sodium (Porcine) 5,000 unit 06/02/18 22:00 06/02/18 22:35 Heparin - SQ 5,000 unit BID NOELLE Administration Hydroxyzine HCl 25 mg 06/02/18 22:00 06/03/18 06:34 Atarax - PO 25 mg TID NOELLE Administration Insulin Aspart 1 vial 06/03/18 07:00 06/03/18 06:48 Novolog Vial Sliding Scale - SQ Not Given TIDAC [facility] Protocol Lactobacillus Acidophilus 1 tab 06/02/18 22:00 06/02/18 22:36 Bacid - PO 1 tab BID NOELLE Administration Levothyroxine Sodium 25 mcg 06/03/18 07:00 06/03/18 06:35 Synthroid - PO 25 mcg DAILY@0700 NOELLE Administration Magnesium Hydroxide 30 ml 06/02/18 19:55 Milk Of Magnesia - PO DAILY PRN CONSTIPATION Mirtazapine 15 mg 06/02/18 22:00 06/02/18 22:35 Remeron - PO 15 mg HS NOELLE Administration Multi-Ingredient Lotion 1 applic 06/02/18 22:00 06/02/18 22:44 Eucerin (Small Jar) - TP Not Given BID NOELLE Nystatin 1 applic 06/02/18 22:00 06/02/18 22:44 Nystop Powder - TP Not Given BID [facility] Pantoprazole Sodium 40 mg 06/03/18 10:00 Protonix - PO DAILY [facility] Polyethylene Glycol 17 gm 06/03/18 10:00 Miralax (For Daily Use) - PO DAILY NOELLE Prednisone 5 mg 06/03/18 10:00 Deltasone - PO DAILY NOELLE Senna 2 tab 06/02/18 22:00 06/02/18 22:45 Senna - PO Not Given HS NOELLE Trazodone HCl 50 mg 06/02/18 22:00 06/02/18 22:36 Desyrel - PO 50 mg HS NOELLE Administration Laboratory Results - last 24 hr 06/02/18 06/02/18 06/02/18 14:30 14:30 14:30 WBC 6.3 RBC 3.82 Hgb 10.9 Hct 34.1 MCV 89.1 MCH 28.5 MCHC 31.9 L RDW 14.1 Plt Count 138 D MPV 7.6 Absolute Neuts (auto) 5.3 Neutrophils % 84.6 H Lymphocytes % 10.4 D Monocytes % 3.8 Eosinophils % 0.9 D Basophils % 0.3 Nucleated RBC % 0 PT with INR 12.30 INR 1.04 PTT (Actin FS) 27.4 VBG pH 7.30 L POC VBG pCO2 61.8 H* D POC VBG pO2 58.7 H D Mixed VBG HCO3 29.2 H Sodium Potassium Chloride Carbon Dioxide Anion Gap BUN Creatinine Creat Clearance w eGFR POC Glucometer Random Glucose Lactic Acid Calcium Total Bilirubin AST ALT Alkaline Phosphatase Troponin I Total Protein Albumin Urine Color Urine Appearance Urine pH Ur Specific [place] Urine Protein Urine Glucose (UA) Urine Ketones Urine Blood Urine Nitrite Urine Bilirubin Urine Urobilinogen Ur Leukocyte Esterase 06/02/18 06/02/18 06/02/18 14:30 14:30 14:33 WBC RBC Hgb Hct MCV MCH MCHC RDW Plt Count MPV Absolute Neuts (auto) Neutrophils % Lymphocytes % Monocytes % Eosinophils % Basophils % Nucleated RBC % PT with INR INR PTT (Actin FS) VBG pH POC VBG pCO2 POC VBG pO2 Mixed VBG HCO3 Sodium 141 Potassium 4.2 Chloride 96 L Carbon Dioxide 45 H Anion Gap 1 L BUN 17 Creatinine 0.4 L Creat Clearance w eGFR > 60 POC Glucometer Random Glucose 93 Lactic Acid 0.8 Calcium 8.4 L Total Bilirubin 0.5 AST 31 ALT 54 Alkaline Phosphatase 93 Troponin I < 0.02 Total Protein 6.2 L Albumin 3.0 L Urine Color Urine Appearance Urine pH Ur Specific [place] Urine Protein Urine Glucose (UA) Urine Ketones Urine Blood Urine Nitrite Urine Bilirubin Urine Urobilinogen Ur Leukocyte Esterase 06/02/18 06/02/18 06/03/18 16:00 21:10 01:11 WBC RBC Hgb Hct MCV MCH MCHC RDW Plt Count MPV Absolute Neuts (auto) Neutrophils % Lymphocytes % Monocytes % Eosinophils % Basophils % Nucleated RBC % PT with INR INR PTT (Actin FS) VBG pH POC VBG pCO2 POC VBG pO2 Mixed VBG HCO3 Sodium Potassium Chloride Carbon Dioxide Anion Gap BUN Creatinine Creat Clearance w eGFR POC Glucometer 127.22009 Random Glucose Lactic Acid 0.6 Calcium Total Bilirubin AST ALT Alkaline Phosphatase Troponin I Total Protein Albumin Urine Color Ltyellow Urine Appearance Clear Urine pH 5.0 Ur Specific [place] 1.013 Urine Protein Negative Urine Glucose (UA) Negative Urine Ketones Negative Urine Blood Negative Urine Nitrite Negative Urine Bilirubin Negative Urine Urobilinogen Negative Ur Leukocyte Esterase Negative 06/03/18 06/03/18 06:00 06:00 WBC 5.4 RBC 3.83 Hgb 10.5 L Hct 33.9 MCV 88.5 MCH 27.4 MCHC 30.9 L RDW 13.7 Plt Count 128 L MPV 7.3 L Absolute Neuts (auto) Neutrophils % Lymphocytes % Monocytes % Eosinophils % Basophils % Nucleated RBC % PT with INR INR PTT (Actin FS) VBG pH POC VBG pCO2 POC VBG pO2 Mixed VBG HCO3 Sodium 144 Potassium 4.2 Chloride 99 Carbon Dioxide 43 H Anion Gap 1 L BUN 19 H Creatinine 0.4 L Creat Clearance w eGFR > 60 POC Glucometer Random Glucose 90 Lactic Acid Calcium 8.6 Total Bilirubin AST ALT Alkaline Phosphatase Troponin I Total Protein Albumin Urine Color Urine Appearance Urine pH Ur Specific [place] Urine Protein Urine Glucose (UA) Urine Ketones Urine Blood Urine Nitrite Urine Bilirubin Urine Urobilinogen Ur Leukocyte Esterase
[2018-06-03] MEDS: LACTOBACILLUS ACIDOPHILUS 1 TABLET PO SCH (10:18)
[2018-06-03] MEDS: CLOTRIMAZOLE/BETAMET DIPROP 15 GM TUBE TP SCH (10:19)
[2018-06-03] MEDS: NYSTATIN POWDER 100,000 UNITS/GM - 15 GM TOPICAL POWDER TP SCH (10:19)
[2018-06-03] MEDS: HEPARIN NA (PORCINE) 5,000 UNITS/ML 1ML VIAL SQ SCH (10:19)
[2018-06-03] MEDS: MINERAL OIL/PETROLAT/WATER TOPICAL CREAM 113 GM JAR TP SCH (10:19)
[2018-06-03] MEDS: BUDESONIDE/FORMETEROL FUMARATE 160/4.5 mcg INHALER IH SCH (10:19)
--- NOTE | 2018-06-03 11:50 | EKG ---
Test Reason : Blood Pressure : / mmHG Vent. Rate : 073 BPM Atrial Rate : 073 BPM P-R Int : 158 ms QRS Dur : 110 ms QT Int : 368 ms P-R-T Axes : 027 -05 030 degrees QTc Int : 405 ms NORMAL SINUS RHYTHM INCOMPLETE RIGHT BUNDLE BRANCH BLOCK MODERATE VOLTAGE CRITERIA FOR LVH, MAY BE NORMAL VARIANT BORDERLINE ECG WHEN COMPARED WITH ECG OF 10-MAY-2018 08:01, NO SIGNIFICANT CHANGE WAS FOUND Confirmed by BOBBY BARKLEY, MOE ([id number]) on 06/03/2018 11:50:06 AM Referred By: Confirmed By:MOE ROSALES MD
--- NOTE | 2018-06-03 16:40 | DS ---
Physical Examination Vital Signs: Vital Signs Temperature 99.4 F 06/03/18 05:53 Pulse Rate 80 06/03/18 12:06 Respiratory Rate 18 06/03/18 12:06 Blood Pressure 114/99 06/03/18 12:06 O2 Sat by Pulse Oximetry (%) 90 L 06/03/18 12:06 Constitutional: Yes: No Distress, Calm Cardiovascular: Yes: Regular Rate and Rhythm Respiratory: Yes: Diminished, Other (trach collar). No: Rhonchi Gastrointestinal: Yes: Normal Bowel Sounds, Soft, Abdomen, Obese. No: Tenderness Edema: No Labs: CBC, BMP 06/03/18 06:00 06/03/18 06:00 Discharge Summary Reason For Visit: ACUTE RESPIRATORY FAIURE W HYPOXI/HY Current Active Problems Acute on chronic respiratory failure with hypoxia and hypercapnia (Acute) Hospital Course: pt sent from [facility] for acute respiratory distress. She had mucus plug which was removed in ER- now saturation better Advised to use humidified O2 Pt stable for dc to NH on trach collar in daytime and vent at night Condition: Improved - Instructions Diet, Activity, Other Instructions: use humidified O2 tp avoid mucuc plug. Also may use mucomyst Referrals: Didier Marshall MD [Primary Care Provider] - - Home Medications Comprehensive Discharge Medication List: Ambulatory Orders Acetaminophen 1,000 mg PO Q6H PRN 10/18/17 Aripiprazole 5 mg PO DAILY 10/18/17 Aspirin 81 mg PO DAILY 10/18/17 Ergocalciferol (Vitamin D2) [Vitamin D2] 50,000 unit PO SA 10/18/17 Furosemide [Lasix -] 20 mg PO DAILY 10/18/17 Heparin Sod,Porcine/0.9 % NaCl [Heparin 5,000 Unit/1,000 ml-Ns] 5,000 unit SCJ BID 10/18/17 Insulin Lispro [Humalog] 0 unit SQ ASDIR 10/18/17 Lactobacillus Acidophilus [Acidophilus] 1 each PO BID 10/18/17 Levothyroxine [Synthroid -] 25 mcg PO DAILY 10/18/17 Mirtazapine 15 mg PO HS 10/18/17 Sennosides [Senna -] 2 tab PO HS tablet 01/18/18 Atorvastatin Ca [Lipitor] 20 mg PO HS 01/24/18 Budesonide/Formeterol Fumarate [SYMBICORT 160/4.5mcg -] 2 inh PO BID 01/24/18 Docusate Sodium [Colace] 100 mg PO HS 01/24/18 Escitalopram Oxalate [Lexapro -] 20 mg PO DAILY 01/24/18 Magnesium Hydroxide [Milk of Magnesia] 30 mg PO ASDIR PRN 01/24/18 Polyethylene Glycol 3350 [Gavilax] 17 gm PO DAILY 01/24/18 Vit A/Vitamin D3/E/Aloe V/Zinc [Periguard Ointment] 1 applic TP BID 01/24/18 Guaifenesin/D-Methorphan Hb [Diabetic Tussin Dm -] 10 ml PO Q4H PRN ml Albuterol 2.5/Ipratropium 0.5 [Duoneb -] 1 amp NEB RQID amp 03/20/18 traZODone HCL [Desyrel -] 50 mg PO HS tablet 03/20/18 hydrOXYzine HCL [Atarax -] 25 mg PO TID 05/10/18 Pantoprazole Sodium [Protonix -] 40 mg PO DAILY #60 tablet.ec 05/20/18 Prednisone See Taper PO DAILY #30 tab.ds.pk 05/20/18 Clotrimazole/Betamet Diprop [Lotrisone -] 1 applic TP BID 06/02/18
[2018-06-03 18:40] VITALS: BP 135/78; PULSE 87; TEMP 98
== END 2018-06-04 | DRG 189 ==
LOC: JER 13:37 → JERBED 21:49
PROVIDERS: ADMIT Internal Medicine; ATTEND Internal Medicine
PROC: 3E0F7GC Introduction of Other Therapeutic Substance into Respiratory Tract, Via Natural or Artificial Opening (ICD-10-PCS; principal; 2018-06-02)
DX: J96.22 Acute and chronic respiratory failure with hypercapnia (principal); Z68.44 Body mass index [BMI] 60.0-69.9, adult; T17.490A Other foreign object in trachea causing asphyxiation, initial encounter; E87.2 Acidosis; N18.4 Chronic kidney disease, stage 4 (severe); J96.21 Acute and chronic respiratory failure with hypoxia; Z93.0 Tracheostomy status; J44.9 Chronic obstructive pulmonary disease, unspecified; E11.22 Type 2 diabetes mellitus with diabetic chronic kidney disease; F31.9 Bipolar disorder, unspecified; R56.9 Unspecified convulsions; Z87.891 Personal history of nicotine dependence; I50.9 Heart failure, unspecified; Z79.4 Long term (current) use of insulin; E03.9 Hypothyroidism, unspecified; E66.01 Morbid (severe) obesity due to excess calories; I95.9 Hypotension, unspecified; K59.00 Constipation, unspecified; B36.9 Superficial mycosis, unspecified
CPT/HCPCS: 36415; 71045-TC-FY; 80048; 80053; 81003; 82803; 82962; 83605; 84484; 85025; 85027; 85610; 85730; 87040; 87086; 93005; 93010; 94002; 99285-25; J1644; J7030

== ENCOUNTER 2018-08-25 11:47 | Inpatient (IN) | payer OTHER ==
[2018-08-25] MEDS ORDERED: ALBUTEROL SO4 2.5/IPRATROPIUM 0.5 INH SOL 3 ML VIAL.NEB. NEB ONE ×3 (13:06→19:44)
--- NOTE | 2018-08-25 13:33 | PDOC ---
History of Present Illness - General Chief Complaint: Shortness of Breath Stated Complaint: DIFFICULTY BREATHING Time Seen by Provider: 08/25/18 13:14 History Source: Patient Exam Limitations: No Limitations - History of Present Illness Initial Comments: 08/25/18 13:26 53 YOF with h/o tracheostomy x1 year, long prior h/o smoking, CHF (on 40 mg Lasix bid and she did get her dose this morning), chronic hypercapnia, hypoxic respiratory failure, COPD, prior PNA, venous thromboembolism (on Eliquis), HLD, morbid obesity, and hypothyroidism, and extensive psychiatric history, who was BIBEMS for worsening SOB, non-productive cough, ST, mild chest pressure, and diffuse body swelling for the past week. She had two DuoNeb treatments on arrival to the ED and states did not help. Vitals noted on SNF paperwork prior to xfer show BP 99/62. SNF paperwork note she is DNR, but not DNI, but she does not have actual MOLST form copy with her. Past History - Past Medical History Allergies/Adverse Reactions: Allergies Allergy/AdvReac Type Severity Reaction Status Date / Time No Known Allergies Allergy Verified 08/25/18 12:20 Home Medications: Ambulatory Orders Acetaminophen 1,000 mg PO Q6H PRN 10/18/17 Aripiprazole 10 mg PO DAILY 10/18/17 Aspirin 81 mg PO DAILY 10/18/17 Furosemide [Lasix -] 40 mg PO BID 10/18/17 Lactobacillus Acidophilus [Acidophilus] 1 each PO BID 10/18/17 Levothyroxine [Synthroid -] 25 mcg PO DAILY 10/18/17 Mirtazapine 15 mg PO HS 10/18/17 Sennosides [Senna -] 2 tab PO HS tablet 01/18/18 Atorvastatin Ca [Lipitor] 20 mg PO HS 01/24/18 Budesonide/Formeterol Fumarate [SYMBICORT 160/4.5mcg -] 2 inh PO BID 01/24/18 Docusate Sodium [Colace] 100 mg PO HS 01/24/18 Escitalopram Oxalate [Lexapro -] 20 mg PO DAILY 01/24/18 Magnesium Hydroxide [Milk of Magnesia] 30 mg PO ASDIR PRN 01/24/18 Polyethylene Glycol 3350 [Gavilax] 17 gm PO DAILY 01/24/18 Vit A/Vitamin D3/E/Aloe V/Zinc [Periguard Ointment] 1 applic TP BID 01/24/18 Guaifenesin/D-Methorphan Hb [Diabetic Tussin Dm -] 10 ml PO Q4H PRN ml Albuterol 2.5/Ipratropium 0.5 [Duoneb -] 1 amp NEB RQID amp 03/20/18 Pantoprazole Sodium [Protonix -] 40 mg PO DAILY #60 tablet.ec 05/20/18 Clotrimazole/Betamet Diprop [Lotrisone -] 1 applic TP BID 06/02/18 Apixaban [Eliquis -] 2.5 mg PO BID 08/25/18 Budesonide/Formeterol Fumarate [SYMBICORT 160/4.5mcg -] 2 inh PO BID 08/25/18 Gabapentin [Neurontin -] 400 mg PO Q8H 08/25/18 Hydroxyzine Pamoate 25 mg PO BID 08/25/18 Montelukast Na [Singulair -] 10 mg PO HS 08/25/18 Sacubitril/Valsartan [Entresto 24 mg-26 mg Tablet] 1 each PO BID 08/25/18 traZODone HCL [Desyrel -] 100 mg PO HS 08/25/18 Cardiac Disorders: (heart failure- 2013) COPD: Yes CHF: Yes Psychiatric Problems: Yes (bipolar) Seizures: Yes Thyroid Disease: Yes - Surgical History Appendectomy: No Gastric Stapling: No - Immunization History Immunization Up to Date: Yes - Suicide/Smoking/Psychosocial Hx Smoking Status: No Smoking History: Unknown if ever smoked Have you smoked in the past 12 months: No Number of Cigarettes Smoked Daily: 5 If you are a former smoker, when did you quit?: 2013 Information on smoking cessation initiated: No 'Breaking Loose' booklet given: 05/11/18 Hx Alcohol Use: No Drug/Substance Use Hx: No Substance Use Type: None Hx Substance Use Treatment: No Review of Systems - Review of Systems Able to Perform ROS?: Yes Comments:: 08/25/18 13:57 GEN: chills, malaise, generalized weakness, no fever HEENT: sore throat, no ear pain, vision change, or eye pain CV: chest pain, edema, no palpitations, lightheadedness, or syncope RESP: cough, wheezing, SOB GI: abdominal pain (only with cough), no nausea, vomiting, diarrhea, constipation, or white/black/bloody stool : no dysuria, hematuria, incontinence, retention, bleeding, or discharge MSK: diffuse swelling, no neck/back pain, muscle weakness/pain, or joint swelling/pain NEURO: no headache, seizure, vertigo, numbness, tingling, or focal weakness PSYCH: no substance use, no behavior change SKIN: no jaundice, no rash ROS otherwise negative except as noted in HPI *Physical Exam - Vital Signs Last Vital Signs Temp Pulse Resp BP Pulse Ox 98.7 F 63 18 80/50 L 100 08/25/18 12:11 08/25/18 12:11 08/25/18 12:11 08/25/18 12:11 08/25/18 12:11 - Physical Exam Comments: 08/25/18 13:59 GENERAL: supramorbidly obese, chronically ill-appearing, A/Ox4, mild distress, answers questions appropriately HEENT: PERRLA, EOMI, moist mucous membranes NECK/BACK: no midline ttp, no spinal stepoff or deformity, no hematoma, full ROM , neck supple CARDIOVASCULAR: regular rate/rhythm, normal S1S2, no MGR, unable to palpate radial pulses, capillary refill <2 seconds, extremities wwp, diffuse 3+ anasarca LUNGS/RESPIRATORY: trach in place without leak, mild to moderate respiratory distress, b/lo expiratory wheezes and rhonchi, bilateral coarse breath sounds, no cough heard GI/ABDOMEN: symmetric [id number], normoactive BS, soft, no ttp, no midline pulsatile masses : no CVA tenderness EXTREMITIES: no muscle atrophy, no acute deformity, no edema SKIN: warm and dry, no pallor, no jaundice, no rash, no bruising, no skin breakdown, no cuts, no lesions NEUROLOGICAL: GCS 15, CN II-XII grossly intact, 5/5 strength proximally and distally, no facial droop Moderate Sedation - Procedure Monitoring Vital Signs: Procedure Monitoring Vital Signs Temperature 98.7 F 08/25/18 12:11 Pulse Rate 63 08/25/18 12:11 Respiratory Rate 18 08/25/18 12:11 Blood Pressure 80/50 L 08/25/18 12:11 O2 Sat by Pulse Oximetry (%) 100 08/25/18 12:11 Heart Score/ECG Review - History History: Slightly suspicious - Risk Factors Risk Factors Heart Score: Yes Hx Hypercholesterolemia, Yes Hx Hypertension, Yes Hx Diabetes, Yes Smoking History, Yes Hx Obesity Based on the list above the patient has:: >/=3 risk factors or Hx atherosclerotic disease #1 Sinus bradycardia, rate 57, normal axis, normal QTc, RBBB, no ischemic ST-T changes ED Treatment Course - LABORATORY CBC & Chemistry Diagram: 08/25/18 13:00 08/25/18 13:00 - RADIOLOGY Radiology Studies Ordered: Category Date Time Status CHEST X-RAY PORTABLE* [RAD] Stat Radiology 08/25/18 13:22 Ordered Medical Decision Making - Medical Decision Making 08/25/18 14:02 Pt with h/o CHF who p/w SOB, cough, orthopnea same as their prior CHF. Initial Vital Signs Temp Pulse Resp BP Pulse Ox 98.7 F 63 18 80/50 L 100 08/25/18 12:11 08/25/18 12:11 08/25/18 12:11 08/25/18 12:11 08/25/18 12:11 Patient's BP was measured at 66/30 RUE at the time of my first evaluation. I immediately repeat the BP to be 72/32 on the LUE. Exam: As noted in Physical Exam section. DDX IBNLT: CHF, pulmonary edema, COPD, asthma, PE, noncardiogenic pulmonary edema (e.g. adult respiratory distress syndrome), pericardial tamponade or constriction, other lung disease, anemia, ACS, AD, PTX, allergic reaction, malignancy (e.g. causing pericardial effusion or vascular shunt), other infection, pulmonary HTN, etc. W/U ordered: Labs as noted below, EKG CXR TX ordered: DuoNebs, patient on PPV, Pt positioned with head of bed up Important to check Phos as severe hypophos can cause decr contractility and ventilation and rhabdo. EKG: Reviewed; results as noted in ECG Review section. CXR: No focal consolidation but b/l diffuse patchy infiltrates. Vital Signs Temperature 98.7 F 08/25/18 12:11 Pulse Rate 63 08/25/18 15:11 Respiratory Rate 21 H 08/25/18 15:11 Blood Pressure 82/00 L 08/25/18 15:11 O2 Sat by Pulse Oximetry (%) 97 08/25/18 15:11 08/25/18 15:26 Repeat BP is 94 systolic at this time. Patient appears much more comfortable. 08/25/18 15:59 The Pt is unsafe for discharge at this time given soft pressures in setting of possible infection versus CHF exacerbation with probable COPD component. They require further hospital observation, workup, and treatment. Spoke with admitting team policy services representative, in agreement Pt to be admitted. Call placed to Drs. Rojo/Robert for admission. Blank Decision to Admit order is placed per ED protocol. 08/25/18 16:[address] Rockwell, in agreement with plan for IP Tele. Decision to Admit order corrected. Patient continues to feel much improved. *DC/Admit/Observation/Transfer Diagnosis at time of Disposition: COPD exacerbation, Rash Hypotension Qualifiers: Hypotension type: unspecified hypotension type Qualified Code(s): I95.9 - Hypotension, unspecified Pneumonia Qualifiers: Pneumonia type: due to unspecified organism Laterality: unspecified laterality Lung location: unspecified part of lung Qualified Code(s): J18.9 - Pneumonia, unspecified organism - Discharge Dispostion Condition at time of disposition: Guarded Decision to Admit order: Yes - Referrals - Patient Instructions - Post Discharge Activity
[2018-08-25 13:41] LABS: VENOUS PC02 63.9 mmHg (38-52); VENOUS PH 7.43 (7.32-7.42)
[2018-08-25 13:46] LABS: BASO % 0.6 % (0-2.0); EOS % 1.4 % (0-4.5); HEMATOCRIT 27.7 % (32.4-45.2); HEMOGLOBIN 9.1 GM/dL (10.7-15.3); LYMPH % 23.7 % (8-40); MCH 27.6 pg (25.7-33.7); MCHC 32.7 g/dl (32.0-36.0); MEAN CELL VOLUME 84.4 fl (80-96); MEAN PLT VOLUME 7.7 fl (7.5-11.1); MONO % 5.1 % (3.8-10.2); NEUT % 69.2 % (42.8-82.8); PLATELET COUNT 193 K/MM3 (134-434); RBC 3.29 M/mm3 (3.60-5.2); RDW 14.6 % (11.6-15.6)
--- NOTE | 2018-08-25 13:46 | EKG ---
Test Reason : Blood Pressure : / mmHG Vent. Rate : 057 BPM Atrial Rate : 057 BPM P-R Int : 178 ms QRS Dur : 116 ms QT Int : 444 ms P-R-T Axes : 047 007 019 degrees QTc Int : 432 ms SINUS BRADYCARDIA OTHERWISE NORMAL ECG WHEN COMPARED WITH ECG OF 02-JUN-2018 15:10, NO SIGNIFICANT CHANGE WAS FOUND Confirmed by ABHISHEK SINGH MD ([id number]) on 08/25/2018 1:46:17 PM Referred By: Confirmed By:ABHISHEK SINGH MD
[2018-08-25 14:02] LABS: INR 1.23 (0.83-1.09); PROTHROMBIN TIME (PATIENT) 14.6 SEC (9.7-13.0)
[2018-08-25 14:05] LABS: ACTIVATED PTT 32.4 SECONDS (25.2-36.5)
[2018-08-25 14:09] LABS: ALBUMIN 2.8 g/dl (3.4-5.0); ALK PHOS 78 U/L (45-117); ANION GAP 3 MMOL/L (8-16); BILIRUBIN,TOTAL 0.6 mg/dL (0.2-1); BLOOD UREA NITROGEN 13 mg/dL (7-18); CALCIUM 8.7 mg/dL (8.5-10.1); CHLORIDE 95 mmol/L (98-107); CO2 43 mmol/L (21-32); CREATININE 0.5 mg/dL (0.55-1.3); GLUCOSE,RANDOM 87 mg/dL (74-106); POTASSIUM 3.6 mmol/L (3.5-5.1); SGOT/AST 10 U/L (15-37); SGPT/ALT 25 U/L (13-61); SODIUM 141 mmol/L (136-145); TOT PROT 5.9 g/dl (6.4-8.2)
--- NOTE | 2018-08-25 14:10 | PDOC ---
Attending Attestation - HPI HPI: 08/25/18 14:17 The patient is a 53 year old female with history of tracheostomy x1 year, long prior h/o smoking, CHF (on 40 mg Lasix bid and she did get her dose this morning ), prior PNA, COPD, HTN, HLD, venous thromboembolism (on Eliquis), morbid obesity, and hypothyroidism, and extensive psychiatric history, who was BIBEMS for increasing dyspnea, non-productive cough, mild chest pressure, and diffuse body swelling for the past week which has increased moreso over the past few days. <Jessica Arnett - Last Filed: 08/25/18 14:17> - Resident Resident Name: Smiley Post - ED Attending Attestation I have performed the following: I have examined & evaluated the patient, The case was reviewed & discussed with the resident, I agree w/resident's findings & plan, Exceptions are as noted - Physicial Exam PE: 08/25/18 15:14 Patient is awake and alert, morbidly obese, trachea in place, ventilated Normocephalic and atraumatic PERRLA, EOMI, conjunctiva pink Breath sounds are distant bilaterally due to body habitus RRR + Diffuse anasarca + 3 pitting edema of lower extremities - Medical Decision Making 08/25/18 15:15 53-year-old female with multiple comorbidities, trached and vented presents with hypotension and diffuse anasarca. Differential diagnoses includes sepsis versus cardiogenic shock versus distributive shock. We'll obtain CBC/CMP/ cardiac profile/blood cultures. EKG reveals no evidence of acute ischemia. Chest x-ray reveals cardiomegaly, and patchy bilateral infiltrates suggestive pulmonary edema. CBC reveals no evidence of leukocytosis. We will consider low- dose dopamine followed by diuresis. Will admit to the ICU. We'll clinical applications specialist broad- spectrum antibiotics. Patient is DNR. <Enzo Ely - Last Filed: 08/25/18 15:16> Attestations - Attestations 08/25/18 14:17 Documentation prepared by Jessica Arnett, acting as medical lab technologist for Enzo Ely MD <Jessica Arnett - Last Filed: 08/25/18 14:17>
[2018-08-25] MEDS ORDERED: PIPERACILLIN/TAZOB 4.5 GM 4.5 GM in DEXTROSE 5%-WATER 100 ML IVPB ONE (14:24)
[2018-08-25] MEDS ORDERED: VANCOMYCIN HCL 2,000 MG in DEXTROSE 5%-WATER - 500 ML IVPB ONE (14:25)
[2018-08-25] MEDS ORDERED: DOPAMINE HCL 400,000 MCG in SODIUM CHLORIDE 240 ML IVPB SCH (15:00)
[2018-08-25] MEDS ORDERED: PIPERACILLIN/TAZOB 4.5 GM 4.5 GM/100 ML BAG IVPB ONE (15:14)
[2018-08-25 16:05] LABS: URINE APPEARANCE CLEAR; URINE BILIRUBIN NEGATIVE (<2.0 mg/dL); URINE COLOR LTYELLOW; URINE GLUCOSE (UA) NEGATIVE (NEGATIVE); URINE KETONE NEGATIVE (NEGATIVE); URINE LEUK ESTERASE NEGATIVE (NEGATIVE); URINE NITRITE NEGATIVE (NEGATIVE); URINE PROTEIN NEGATIVE (NEGATIVE); URINE UROBILINOGEN NEGATIVE mg/dL (0.2-1.0)
[2018-08-25] MEDS ORDERED: GABAPENTIN 400 MG CAPSULE (FP) PO SCH (19:00)
[2018-08-25] MEDS ORDERED: GABAPENTIN 100 MG CAPSULE (FP) ONE (19:09)
[2018-08-25 19:44] LABS: N-TERMINAL BNP 58.92 pg/ml (5-125)
[2018-08-25] MEDS: ALBUTEROL SO4 2.5/IPRATROPIUM 0.5 INH SOL 3 ML VIAL.NEB. NEB PRN (19:45)
[2018-08-25] MEDS ORDERED: ACETAMINOPHEN 325 MG TABLET (FP) ONE (19:52)
[2018-08-25] MEDS: ACETAMINOPHEN 500 MG TABLET (FP) PO PRN (19:55)
[2018-08-25] MEDS ORDERED: PATIENT'S OWN MEDICATION (NON-FORMULARY) (Lactobacillus Acidophilus [Acidophilus] 1 EACH) PO SCH (22:00)
[2018-08-25] MEDS ORDERED: traZODone HCL 50 MG TABLET (FP) PO SCH (22:00)
[2018-08-26] MEDS: MONTELUKAST NA 10 MG TABLET PO SCH ×2 (00:10→22:12)
[2018-08-26] MEDS: SACUBITRIL/VALSARTAN 24 MG-26 MG TABLET PO SCH ×3 (00:10→22:17)
[2018-08-26] MEDS: APIXABAN 2.5 MG TABLET PO SCH ×3 (00:10→22:12)
[2018-08-26] MEDS: SENNOSIDES 8.6MG TABLET (FP) PO SCH ×2 (00:10→22:12)
[2018-08-26] MEDS: LACTOBACILLUS ACIDOPHILUS 1 TABLET PO SCH ×3 (00:10→22:12)
[2018-08-26] MEDS: ATORVASTATIN CA 20 MG TABLET (FP) PO SCH ×2 (00:10→22:12)
[2018-08-26] MEDS: BUDESONIDE/FORMETEROL FUMARATE 160/4.5 mcg INHALER IH SCH ×3 (00:10→22:19)
[2018-08-26] MEDS: GABAPENTIN 400 MG CAPSULE (FP) PO SCH ×4 (00:10→22:13)
[2018-08-26] MEDS: DOCUSATE SODIUM 100 MG CAPSULE (FP) PO SCH ×2 (00:10→22:12)
[2018-08-26] MEDS: MIRTAZAPINE 15 MG TABLET (FP) PO SCH ×2 (00:10→22:12)
[2018-08-26] MEDS ORDERED: PIPERACILLIN/TAZOB 2.25 GM 2.25 GM in DEXTROSE 5%-WATER - 50 ML IVPB SCH ×2 (02:00→18:00)
[2018-08-26] MEDS ORDERED: PIPERACILLIN/TAZOB 2.25 GM 2.25 GM/50 ML BAG IVPB ONE (02:22)
[2018-08-26] MEDS: CLOTRIMAZOLE/BETAMET DIPROP 15 GM TUBE TP SCH ×3 (03:51→22:18)
[2018-08-26] MEDS: PIPERACILLIN/TAZOB 2.25 GM 2.25 GM in DEXTROSE 5%-WATER - 50 ML IVPB SCH ×2 (04:22→09:32)
[2018-08-26] MEDS ORDERED: FUROSEMIDE 40 MG/4 ML INJECTABLE VIAL IVPUSH ONE ×2 (04:25→14:00)
--- NOTE | 2018-08-26 04:25 | CONSULT ---
Consult Consult Specialty:: ICU Reason for Consultation:: Anasarca - History of Present Illness Chief Complaint: SOB and anasarca History of Present Illness: 53 yr old woman with COPD s/p trach on vent chronically, diet controlled DM, chronic hypercapnia, hx of hypoxic respiratory failure, HLD, hypothyroidism, bipolar disorder, morbid obesity, hx of VTE on AC presents with progressively worsening shortness of breath of the last week a/w productive cough and PND, worsening anasarca for last 1 month associated with malaise and intermittent headaches. Also c/o left sided sharp chest pain lasting 2mins at a time that worsens after coughing radiating to the right side. 1 episode of nonbloody/nonbilious emesis consistent with food 3 days ago, has been eating and drinking per usual since then without nausea or repeat emesis. recalls receiving an enema 2 days ago, but denies constipation, melena, hematochezia. unsure if she has abdominal pain. denies fevers, changes in diet or medications, rhinorrhea, sick contacts, dysuria, difficulty swallowing, syncope, lightheadedness. - History Source History Provided By: Patient, Medical Record - Past Medical History Pulmonary: Yes: COPD, O2 Dependent, Pneumonia Gastrointestinal: Yes: Other (colon polyps) Psych: Yes: Bipolar Endocrine: Yes: Diabetes Mellitus - Alcohol/Substance Use Hx Alcohol Use: No History of Substance Use: reports: Marijuana - Smoking History Smoking history: Former smoker Have you smoked in the past 12 months: No Aproximately how many cigarettes per day: 5 If you are a former smoker, when did you quit?: 2017 - Social History Usual Living Arrangement: Custodial ADL: Support Services Occupation: disabled History of Recent Travel: No Home Medications - Allergies Allergies/Adverse Reactions: Allergies Allergy/AdvReac Type Severity Reaction Status Date / Time No Known Allergies Allergy Verified 08/25/18 12:20 - Home Medications Home Medications: Ambulatory Orders Acetaminophen 1,000 mg PO Q6H PRN 10/18/17 Aripiprazole 10 mg PO DAILY 10/18/17 Aspirin 81 mg PO DAILY 10/18/17 Furosemide [Lasix -] 40 mg PO BID 10/18/17 Lactobacillus Acidophilus [Acidophilus] 1 each PO BID 10/18/17 Levothyroxine [Synthroid -] 25 mcg PO DAILY 10/18/17 Mirtazapine 15 mg PO HS 10/18/17 Sennosides [Senna -] 2 tab PO HS tablet 01/18/18 Atorvastatin Ca [Lipitor] 20 mg PO HS 01/24/18 Budesonide/Formeterol Fumarate [SYMBICORT 160/4.5mcg -] 2 inh PO BID 01/24/18 Docusate Sodium [Colace] 100 mg PO HS 01/24/18 Escitalopram Oxalate [Lexapro -] 20 mg PO DAILY 01/24/18 Magnesium Hydroxide [Milk of Magnesia] 30 mg PO ASDIR PRN 01/24/18 Polyethylene Glycol 3350 [Gavilax] 17 gm PO DAILY 01/24/18 Vit A/Vitamin D3/E/Aloe V/Zinc [Periguard Ointment] 1 applic TP BID 01/24/18 Guaifenesin/D-Methorphan Hb [Diabetic Tussin Dm -] 10 ml PO Q4H PRN ml Albuterol 2.5/Ipratropium 0.5 [Duoneb -] 1 amp NEB RQID amp 03/20/18 Pantoprazole Sodium [Protonix -] 40 mg PO DAILY #60 tablet.ec 05/20/18 Clotrimazole/Betamet Diprop [Lotrisone -] 1 applic TP BID 06/02/18 Apixaban [Eliquis -] 2.5 mg PO BID 08/25/18 Budesonide/Formeterol Fumarate [SYMBICORT 160/4.5mcg -] 2 inh PO BID 08/25/18 Gabapentin [Neurontin -] 400 mg PO Q8H 08/25/18 Hydroxyzine Pamoate 25 mg PO BID 08/25/18 Montelukast Na [Singulair -] 10 mg PO HS 08/25/18 Sacubitril/Valsartan [Entresto 24 mg-26 mg Tablet] 1 each PO BID 08/25/18 traZODone HCL [Desyrel -] 100 mg PO HS 08/25/18 Family Disease History - Family Disease History Family Disease History: Other: Father (: PNA), Mother (: COPD ) Review of Systems - Review of Systems Constitutional: reports: Malaise. denies: Night Sweats, Unintentional Wgt. Loss , Weakness Eyes: reports: No Symptoms HENT: denies: Difficult Swallowing Neck: reports: No Symptoms Cardiovascular: reports: Chest Pain, Edema. denies: Palpitations Respiratory: reports: Cough, SOB Gastrointestinal: reports: Vomiting. denies: Diarrhea, Indigestion, Melena, Nausea Genitourinary: denies: Burning, Dysuria, Flank Pain Musculoskeletal: reports: No Symptoms Integumentary: reports: Rash (groin/decub) Neurological: reports: Headache. denies: Change in Speech, Confusion, Dizziness , Parasthesia, Syncope, Tremors Endocrine: denies: Excessive Sweating, Flushing, Increased Thirst, Intolerance to Cold Hematology/Lymphatic: reports: No Symptoms Physical Exam Vital Signs: Vital Signs Temperature 97.8 F 08/26/18 04:11 Pulse Rate 50 L 08/26/18 04:11 Respiratory Rate 17 08/26/18 04:11 Blood Pressure 109/55 L 08/26/18 04:11 O2 Sat by Pulse Oximetry (%) 0 L 08/25/18 18:45 Constitutional: Yes: Calm Eyes: Yes: Conjunctiva Clear, EOM Intact, PERRL HENT: Yes: Atraumatic, Normocephalic. No: Pharyngeal Erythema, Rhinnorhea, Thrush Neck: Yes: Supple, Other (thick neck, trach collar in place, no discharge/ erythema at trach site) Cardiovascular: Yes: Bradycardia (rate of 48-54), S1, S2. 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 was started on zosyn for possible infectious source of SOB, ID evaluation pending CV - last echo 2015 with normal LV and RV function, pt has a history of being fluid overloaded and appears overloaded will diuresis with IV lasix 40mg IVpush daily weights continue entresto I&O - pete placed with 850cc on insertion, pt denied a hx of urinary retention , unclear why she was retaining at this time, will need to monitor when pete is removed 1st trop neg with normal sinus haim EKG in ED, c/o chest pain in ICU, repeat trop Pulm - vent dependent on trach, continue home settings, saturating well duonebs q6hr, symbicort, singular Endo - hypothyroidism and diet dependent DM synthroid 25mcg diabetic diet Psych - depression remeron 15mg po desryl Heme - normocytic anemia, chronic prophylaxis - GI protonix - VTE - eliquis
[2018-08-26] MEDS: ALBUTEROL SO4 2.5/IPRATROPIUM 0.5 INH SOL 3 ML VIAL.NEB. NEB PRN (05:00)
[2018-08-26] MEDS: LEVOTHYROXINE NA 25 MCG TABLET (FP) PO SCH (06:54)
--- NOTE | 2018-08-26 08:45 | CON.CARD ---
Cardiology Consult (text) - Consultation Consultation Note: IMP: Morbid obesity Prior VTE on AC Worsened Dyspnea: CHF vs PNA Anasarca REC: Vent support Cultures/Abx/ supplimental O2 as per ICU Echo Diurese as BP allows. Cont AC Will follow Thank you
--- NOTE | 2018-08-26 09:23 | CONS ---
CARDIOLOGY CONSULTATION DATE OF CONSULTATION: 08/26/2018 REFERRING PHYSICIAN: Candice Rockwell MD REASON FOR CONSULTATION: Congestive heart failure. The patient is a 53-year-old female, [facility] resident, who has a history of COPD status post tracheostomy on chronic ventilator therapy, diet-controlled diabetes, chronic hypercapnia, history of hypoxic respiratory failure, hyperlipidemia, hypothyroidism, bipolar, morbid obesity, and chronic congestive heart failure, who presents to the ER with progressively worsening shortness of breath over the last week, productive cough, and PND, as well as worsening anasarca for the last month, associated with malaise and intermittent headaches. She also described an episode of sharp chest discomfort lasting 1-2 minutes with cough. The patient was admitted to the ICU for further therapy due to hypercapnia and chest x-ray showing bilateral pneumonia versus CHF. She was seen and examined in the ICU today in no acute distress. She feels short of breath and has been coughing, but denies fevers or chills. She has no anginal-type symptoms, but is diffusely edematous in her arms, hands, and feet as well as her abdomen. PAST MEDICAL HISTORY: As above. ALLERGIES: She has no known drug allergies. CURRENT MEDICATIONS: Include Tylenol q.6 hours p.r.n., DuoNeb q.6 hours, Eliquis 2.5 mg b.i.d. for her history of venous thromboembolism, Abilify 10 mg p.o. daily, aspirin 81 mg p.o. daily, atorvastatin 20 mg nightly, budesonide 2 puffs b.i.d., Colace 100 mg p.o. nightly, Lexapro 20 mg p.o. daily, Neurontin 400 b.i.d., Synthroid 25 mcg p.o. daily, Remeron 15 mg p.o. daily, Singulair 10 nightly, Protonix 40 daily, Zosyn, vancomycin, Entresto 1 tablet b.i.d. She has also been given 1 dose of IV Lasix 40 mg IV once at 5 a.m. FAMILY HISTORY: Noncontributory. SOCIAL HISTORY: [facility] in a [facility]. PHYSICAL EXAMINATION: Vital Signs: Afebrile, temperature 97.8; pulse 50; blood pressure 109/55; mechanically ventilated, 98% on 50% FiO2. Heart: S1, S2. Regular. Chest: Scattered rhonchi bilaterally. Expiratory wheezing. Abdomen: Obese, soft, nontender. Extremities: She has 2+ edema to the mid-calf bilaterally, and both her hands are extremely swollen. Her chest x-ray: Poor inspiration, increased vascular congestion versus bilateral infiltrates. White count 5, hematocrit 27, platelets 193. INR 1.23. VBG 7.43/64/48. Sodium 141, potassium 3.6, creatinine 0.5. LFTs are normal. CK/troponin negative. BNP is only 58. Influenza is negative. Echo is pending. ECG shows sinus bradycardia at 57 beats per minute with no acute ST changes. IMPRESSION: 1. Morbid obesity. 2. Prior venous thromboembolism on anticoagulation. 3. Chronic respiratory failure with worsened dyspnea: Congestive heart failure versus pneumonia. 4. Anasarca. RECOMMENDATIONS: 1. Vent support. 2. Culture/antibiotics/supplemental O2 as per ICU team. 3. Echocardiogram for EF assessment. 4. Diuresis as blood pressure allows. 5. Continue anticoagulation. Will follow. HUONG ALEGRE M.D. [id number]
[2018-08-26] MEDS ORDERED: PT OWN MED DRAWER 7, Y5N ONE ×5 (09:29→22:20)
[2018-08-26] MEDS ORDERED: PIPERACILLIN/TAZOBACTAM 2.25 GM VIAL IVPB ONE (09:29)
[2018-08-26] MEDS ORDERED: DEXTROSE 5%-WATER - 50 ML IVPB ONE (09:30)
[2018-08-26] MEDS: ASPIRIN 81 MG CHEWABLE TABLETS PO SCH (09:31)
[2018-08-26] MEDS: ESCITALOPRAM OXALATE 20 MG TABLET (FP) PO SCH (09:31)
[2018-08-26] MEDS: PANTOPRAZOLE 40 MG TABLET (FP) PO SCH (09:31)
[2018-08-26 09:57] LABS: BASO % 0.6 % (0-2.0); EOS % 1.6 % (0-4.5); HEMATOCRIT 28.8 % (32.4-45.2); HEMOGLOBIN 9.5 GM/dL (10.7-15.3); LYMPH % 25.9 % (8-40); MCH 27.8 pg (25.7-33.7); MCHC 32.9 g/dl (32.0-36.0); MEAN CELL VOLUME 84.5 fl (80-96); NEUT % 67.9 % (42.8-82.8); PLATELET COUNT 169 K/MM3 (134-434); RBC 3.41 M/mm3 (3.60-5.2); RDW 14.6 % (11.6-15.6); WHITE BLOOD COUNT 3.9 K/mm3 (4.0-10.0)
[2018-08-26] MEDS ORDERED: PATIENT'S OWN MEDICATION (NON-FORMULARY) (Polyethylene Glycol 3350 [Gavilax] 17 GM) PO SCH (10:00)
--- NOTE | 2018-08-26 10:02 | HP ---
Admitting History and Physical - Primary Care Physician PCP: Josie Rojo - Admission Chief Complaint: sob, chestpain History of Present Illness: ER NOTES 08/25/18 13:26 53 YOF with h/o tracheostomy x1 year, long prior h/o smoking, CHF (on 40 mg Lasix bid and she did get her dose this morning), chronic hypercapnia, hypoxic respiratory failure, COPD, prior PNA, venous thromboembolism (on Eliquis), HLD, morbid obesity, and hypothyroidism, and extensive psychiatric history, who was BIBEMS for worsening SOB, non-productive cough, ST, mild chest pressure, and diffuse body swelling for the past week. She had two DuoNeb treatments on arrival to the ED and states did not help. Vitals noted on SNF paperwork prior to xfer show BP 99/62. SNF paperwork note she is DNR, but not DNI, but she does not have actual MOLST form copy with her. Pt examined by me in ICU-- pt transferred to ICU for monitoring of O2 sats She is awake and alert- says she feels out of breath Was on Vent at night in [place] and trach collar in daytime but for the last one week -- she has been getting progressively SOB and chest pain especially when she takes a deep breath No fever or chills History Source: Patient, Medical Record, Transfer Record Limitations to Obtaining History: No Limitations - Past Medical History Pulmonary: Yes: COPD, O2 Dependent, Pneumonia Gastrointestinal: Yes: Other (colon polyps) Heme/Onc: Yes: Anemia, Other (h/o DVT) Psych: Yes: Bipolar Endocrine: Yes: Diabetes Mellitus - Smoking History Smoking history: Former smoker Have you smoked in the past 12 months: No Aproximately how many cigarettes per day: 5 If you are a former smoker, when did you quit?: 2017 - Alcohol/Substance Use Hx Alcohol Use: No History of Substance Use: reports: Marijuana - Social History ADL: Support Services Occupation: disabled History of Recent Travel: No Home Medications - Allergies Allergies/Adverse Reactions: Allergies Allergy/AdvReac Type Severity Reaction Status Date / Time No Known Allergies Allergy Verified 08/25/18 12:20 - Home Medications Home Medications: Ambulatory Orders Acetaminophen 1,000 mg PO Q6H PRN 10/18/17 Aripiprazole 10 mg PO DAILY 10/18/17 Aspirin 81 mg PO DAILY 10/18/17 Furosemide [Lasix -] 40 mg PO BID 10/18/17 Lactobacillus Acidophilus [Acidophilus] 1 each PO BID 10/18/17 Levothyroxine [Synthroid -] 25 mcg PO DAILY 10/18/17 Mirtazapine 15 mg PO HS 10/18/17 Sennosides [Senna -] 2 tab PO HS tablet 01/18/18 Atorvastatin Ca [Lipitor] 20 mg PO HS 01/24/18 Budesonide/Formeterol Fumarate [SYMBICORT 160/4.5mcg -] 2 inh PO BID 01/24/18 Docusate Sodium [Colace] 100 mg PO HS 01/24/18 Escitalopram Oxalate [Lexapro -] 20 mg PO DAILY 01/24/18 Magnesium Hydroxide [Milk of Magnesia] 30 mg PO ASDIR PRN 01/24/18 Polyethylene Glycol 3350 [Gavilax] 17 gm PO DAILY 01/24/18 Vit A/Vitamin D3/E/Aloe V/Zinc [Periguard Ointment] 1 applic TP BID 01/24/18 Guaifenesin/D-Methorphan Hb [Diabetic Tussin Dm -] 10 ml PO Q4H PRN ml Albuterol 2.5/Ipratropium 0.5 [Duoneb -] 1 amp NEB RQID amp 03/20/18 Pantoprazole Sodium [Protonix -] 40 mg PO DAILY #60 tablet.ec 05/20/18 Clotrimazole/Betamet Diprop [Lotrisone -] 1 applic TP BID 06/02/18 Apixaban [Eliquis -] 2.5 mg PO BID 08/25/18 Budesonide/Formeterol Fumarate [SYMBICORT 160/4.5mcg -] 2 inh PO BID 08/25/18 Gabapentin [Neurontin -] 400 mg PO Q8H 08/25/18 Hydroxyzine Pamoate 25 mg PO BID 08/25/18 Montelukast Na [Singulair -] 10 mg PO HS 08/25/18 Sacubitril/Valsartan [Entresto 24 mg-26 mg Tablet] 1 each PO BID 08/25/18 traZODone HCL [Desyrel -] 100 mg PO HS 08/25/18 Family Disease History - Family Disease History Family Disease History: Other: Father (: PNA), Mother (: COPD ) Review of Systems - Review of Systems Constitutional: denies: Chills, Fever Cardiovascular: reports: Chest Pain Respiratory: reports: Cough, SOB Physical Examination Vital Signs: Vital Signs Temperature 97.8 F 08/26/18 04:11 Pulse Rate 61 08/26/18 08:25 Respiratory Rate 19 08/26/18 09:14 Blood Pressure 100/53 L 08/26/18 08:25 O2 Sat by Pulse Oximetry (%) 100 08/26/18 09:14 Constitutional: Yes: No Distress, Calm Cardiovascular: Yes: Regular Rate and Rhythm Respiratory: Yes: Diminished, Mechanically Ventilated Gastrointestinal: Yes: Normal Bowel Sounds, Soft, Abdomen, Obese. No: Tenderness Edema: Yes Psychiatric: Yes: Alert, Oriented Labs: CBC, BMP 08/25/18 13:00 Imaging - Results Chest X-ray: Image Reviewed EKG: Image Reviewed (sinus bradycardia) Problem List - Problems (1) Acute on chronic respiratory failure with hypoxia and hypercapnia Code(s): J96.21 - ACUTE AND CHRONIC RESPIRATORY FAILURE WITH HYPOXIA; J96.22 - ACUTE AND CHRONIC RESPIRATORY FAILURE WITH HYPERCAPNIA (2) CHF (congestive heart failure) Code(s): I50.9 - HEART FAILURE, UNSPECIFIED (3) Diabetes Code(s): E11.9 - TYPE 2 DIABETES MELLITUS WITHOUT COMPLICATIONS (4) Morbid obesity Code(s): E66.01 - MORBID (SEVERE) OBESITY DUE TO EXCESS CALORIES Assessment/Plan PLAN Check Echo Cardiology eval noted spoke with ICU resident , attending continue with Lasix BID , BP permitting continue with Eliquis monitor urine output
[2018-08-26] MEDS: POLYETHYLENE GLYCOL 3350 119 GM BTL PO SCH (10:36)
--- NOTE | 2018-08-26 10:47 | PN ---
Teaching Attending Note Name of Resident: Tracy Rojo ATTENDING PHYSICIAN STATEMENT I saw and evaluated the patient. I reviewed the resident's note and discussed the case with the resident. I agree with the resident's findings and plan as documented. SUBJECTIVE: Pt seen and examined in the ICU. Vented on volume assist control, awake and alert. Still some dyspnea with minimal exertion. No fevers or chills. + nonproductive cough. OBJECTIVE: Vital Signs Period Temp Pulse Resp BP Sys/Petersen Pulse Ox Last 24 Hr 97.8 F-98.7 F 50-63 17-27 78-109/00-74 0-100 Intake & Output 08/23/18 08/24/18 08/25/18 08/26/18 23:59 23:59 23:59 23:59 Intake Total 50 Output Total 1999 Balance -1950 Weight 159.211 kg 180.167 kg Gen: vented, awake Heart: RRR Lung: decreased breath sounds at the bases Abd: soft, nontender Ext: + edema CBC, BMP 08/26/18 09:15 08/25/18 13:00 Active Medications Acetaminophen (Tylenol -) 1,000 mg PO Q6H PRN PRN Reason: PAIN Last Admin: 08/25/18 19:55 Dose: 1,000 mg Albuterol/Ipratropium (Duoneb -) 1 amp NEB Q6H PRN PRN Reason: SHORTNESS OF BREATH Last Admin: 08/26/18 05:00 Dose: 1 amp Apixaban (Eliquis -) 2.5 mg PO BID [facility] Last Admin: 08/26/18 09:31 Dose: 2.5 mg Aripiprazole (Abilify) 10 mg PO DAILY [facility] Aspirin (Asa -) 81 mg PO DAILY [facility] Last Admin: 08/26/18 09:31 Dose: 81 mg Atorvastatin Calcium (Lipitor -) 20 mg PO HS [facility] Last Admin: 08/26/18 00:10 Dose: 20 mg Budesonide/Formoterol Fumarate (Symbicort 160/4.5mcg -) 2 puff IH BID [facility] Last Admin: 08/26/18 10:23 Dose: 2 puff Clotrimazole (Lotrisone Cream (Small Tube)) 1 applic TP BID [facility] Last Admin: 08/26/18 03:51 Dose: Not Given Docusate Sodium (Colace -) 100 mg PO [facility] Last Admin: 08/26/18 00:10 Dose: 100 mg Escitalopram Oxalate (Lexapro -) 20 mg PO DAILY [facility] Last Admin: 08/26/18 09:31 Dose: 20 mg Furosemide (Lasix Injection -) 40 mg IVPUSH ONCE ONE Stop: 08/26/18 14:01 Furosemide (Lasix Injection -) 40 mg IVPUSH BID@0600,1400 [facility] Gabapentin (Neurontin -) 400 mg PO TID [facility] Last Admin: 08/26/18 06:54 Dose: 400 mg Lactobacillus Acidophilus (Bacid -) 1 tab PO BID [facility] Last Admin: 08/26/18 09:31 Dose: 1 tab Levothyroxine Sodium (Synthroid -) 25 mcg PO DAILY@0700 [facility] Last Admin: 08/26/18 06:54 Dose: 25 mcg Mirtazapine (Remeron -) 15 mg PO [facility] Last Admin: 08/26/18 00:10 Dose: 15 mg Montelukast Sodium (Singulair -) 10 mg PO [facility] Last Admin: 08/26/18 00:10 Dose: 10 mg Pantoprazole Sodium (Protonix -) 40 mg PO DAILY [facility] Last Admin: 08/26/18 09:31 Dose: 40 mg Polyethylene Glycol (Miralax (For Daily Use) -) 17 gm PO DAILY [facility] Sacubitril/Valsartan (Entresto 24 Mg-26 Mg Tablet) 1 tab PO BID [facility] Last Admin: 08/26/18 00:10 Dose: 1 tab Senna (Senna -) 2 tab PO [facility] Last Admin: 08/26/18 00:10 Dose: 2 tab Trazodone HCl (Desyrel -) 100 mg PO [facility] ASSESSMENT AND PLAN: Chronic Respiratory Failure s/p Tracheostomy Volume Overload/Anasarca COPD Hypothyroidism h/o VTE Bipolar Disorder Depression - continue lasix - monitor urine output, creatinine - daily weights - weight in Apr 2018 was 145kg - echocardiogram - continue anticoagulation - inhaled bronchodilators - O2 to keep SpO2 >90% - spontaneous breathing trials as tolerated with goal of trach collar during day, vented at night - PO as tolerated - DVT/GI prophylaxis - can monitor on vent floor
--- NOTE | 2018-08-26 11:31 | PN ---
Physical Exam: SUBJECTIVE: Patient seen and examined this AM in ICU. Mentions she was gasping for air on the trachcollar, switched to Vent but did not improve and was brought to [facility]. Breathing and chest pain have improved since arrival. Denies any recent travel, Medication changes or sick contacts. Endorses 1 episode of NBNV Vomiting and nonproductive cough. Denies any recent fevers, chills, diarrhea, constipation. OBJECTIVE: Vital Signs Period Temp Pulse Resp BP Sys/Petersen Pulse Ox Last 24 Hr 97.8 F-98.7 F 50-74 15-27 78-109/00-74 0-100 GENERAL: A&Ox3, NAD HEAD: NCAT EYES: PERRL, EOMI ENT: Moist mucous membranes. NECK: Supple LUNGS: Vented, Diminished breath sounds at the bases, Congested throughout HEART: Regular rate and rhythm, S1, S2 without murmur ABDOMEN: Obese, Soft, Tender to palpation in the lower quadrants, nondistended, + bowel sounds, no guarding EXTREMITIES: 1+ edema NEUROLOGICAL: Cranial nerves II through XII grossly intact. Normal speech SKIN: Warm, dry Laboratory Results - last 24 hr 08/25/18 08/25/18 08/25/18 13:00 13:00 13:22 WBC 5.0 RBC 3.29 L Hgb 9.1 L Hct 27.7 L D MCV 84.4 MCH 27.6 MCHC 32.7 RDW 14.6 Plt Count 193 D MPV 7.7 Absolute Neuts (auto) 3.5 Neutrophils % 69.2 Lymphocytes % 23.7 D Monocytes % 5.1 Eosinophils % 1.4 Basophils % 0.6 Nucleated RBC % 0 PT with INR INR PTT (Actin FS) VBG pH 7.43 H POC VBG pCO2 63.9 H* POC VBG pO2 48.0 Mixed VBG HCO3 41.7 H* Sodium 141 Potassium 3.6 Chloride 95 L Carbon Dioxide 43 H Anion Gap 3 L BUN 13 Creatinine 0.5 L Creat Clearance w eGFR > 60 Random Glucose 87 Calcium 8.7 Total Bilirubin 0.6 AST 10 L ALT 25 Alkaline Phosphatase 78 Creatine Kinase 20 L CK-MB (CK-2) < 1.0 Troponin I < 0.02 B-Natriuretic Peptide 58.92 Total Protein 5.9 L Albumin 2.8 L TSH 3.29 Urine Color Urine Appearance Urine pH Ur Specific [place] Urine Protein Urine Glucose (UA) Urine Ketones Urine Blood Urine Nitrite Urine Bilirubin Urine Urobilinogen Ur Leukocyte Esterase Influenza A (Rapid) Influenza B (Rapid) 08/25/18 08/25/18 08/25/18 13:30 15:18 16:42 WBC RBC Hgb Hct MCV MCH MCHC RDW Plt Count MPV Absolute Neuts (auto) Neutrophils % Lymphocytes % Monocytes % Eosinophils % Basophils % Nucleated RBC % PT with INR 14.60 H INR 1.23 H PTT (Actin FS) 32.4 VBG pH POC VBG pCO2 POC VBG pO2 Mixed VBG HCO3 Sodium Potassium Chloride Carbon Dioxide Anion Gap BUN Creatinine Creat Clearance w eGFR Random Glucose Calcium Total Bilirubin AST ALT Alkaline Phosphatase Creatine Kinase CK-MB (CK-2) Troponin I B-Natriuretic Peptide Total Protein Albumin TSH Urine Color Ltyellow Urine Appearance Clear Urine pH 6.0 Ur Specific [place] 1.010 Urine Protein Negative Urine Glucose (UA) Negative Urine Ketones Negative Urine Blood Negative Urine Nitrite Negative Urine Bilirubin Negative Urine Urobilinogen Negative Ur Leukocyte Esterase Negative Influenza A (Rapid) Negative Influenza B (Rapid) Negative 08/26/18 09:15 WBC 3.9 L RBC 3.41 L Hgb 9.5 L Hct 28.8 L MCV 84.5 MCH 27.8 MCHC 32.9 RDW 14.6 Plt Count 169 MPV 8.0 Absolute Neuts (auto) 2.6 Neutrophils % 67.9 Lymphocytes % 25.9 Monocytes % 4.0 Eosinophils % 1.6 Basophils % 0.6 Nucleated RBC % 0 PT with INR INR PTT (Actin FS) VBG pH POC VBG pCO2 POC VBG pO2 Mixed VBG HCO3 Sodium Potassium Chloride Carbon Dioxide Anion Gap BUN Creatinine Creat Clearance w eGFR Random Glucose Calcium Total Bilirubin AST ALT Alkaline Phosphatase Creatine Kinase CK-MB (CK-2) Troponin I B-Natriuretic Peptide Total Protein Albumin TSH Urine Color Urine Appearance Urine pH Ur Specific [place] Urine Protein Urine Glucose (UA) Urine Ketones Urine Blood Urine Nitrite Urine Bilirubin Urine Urobilinogen Ur Leukocyte Esterase Influenza A (Rapid) Influenza B (Rapid) Active Medications Acetaminophen (Tylenol -) 1,000 mg PO Q6H PRN PRN Reason: PAIN Last Admin: 08/25/18 19:55 Dose: 1,000 mg Albuterol/Ipratropium (Duoneb -) 1 amp NEB Q6H PRN PRN Reason: SHORTNESS OF BREATH Last Admin: 08/26/18 05:00 Dose: 1 amp Apixaban (Eliquis -) 2.5 mg PO BID [facility] Last Admin: 08/26/18 09:31 Dose: 2.5 mg Aripiprazole (Abilify) 10 mg PO DAILY [facility] Aspirin (Asa -) 81 mg PO DAILY [facility] Last Admin: 08/26/18 09:31 Dose: 81 mg Atorvastatin Calcium (Lipitor -) 20 mg PO HS [facility] Last Admin: 08/26/18 00:10 Dose: 20 mg Budesonide/Formoterol Fumarate (Symbicort 160/4.5mcg -) 2 puff IH BID [facility] Last Admin: 08/26/18 10:23 Dose: 2 puff Clotrimazole (Lotrisone Cream (Small Tube)) 1 applic TP BID [facility] Last Admin: 08/26/18 03:51 Dose: Not Given Docusate Sodium (Colace -) 100 mg PO [facility] Last Admin: 08/26/18 00:10 Dose: 100 mg Escitalopram Oxalate (Lexapro -) 20 mg PO DAILY [facility] Last Admin: 08/26/18 09:31 Dose: 20 mg Furosemide (Lasix Injection -) 40 mg IVPUSH ONCE ONE Stop: 08/26/18 14:01 Furosemide (Lasix Injection -) 40 mg IVPUSH BID@0600,1400 [facility] Gabapentin (Neurontin -) 400 mg PO TID [facility] Last Admin: 08/26/18 06:54 Dose: 400 mg Lactobacillus Acidophilus (Bacid -) 1 tab PO BID [facility] Last Admin: 08/26/18 09:31 Dose: 1 tab Levothyroxine Sodium (Synthroid -) 25 mcg PO DAILY@0700 [facility] Last Admin: 08/26/18 06:54 Dose: 25 mcg Mirtazapine (Remeron -) 15 mg PO [facility] Last Admin: 08/26/18 00:10 Dose: 15 mg Montelukast Sodium (Singulair -) 10 mg PO HS [facility] Last Admin: 08/26/18 00:10 Dose: 10 mg Pantoprazole Sodium (Protonix -) 40 mg PO DAILY [facility] Last Admin: 08/26/18 09:31 Dose: 40 mg Polyethylene Glycol (Miralax (For Daily Use) -) 17 gm PO DAILY [facility] Sacubitril/Valsartan (Entresto 24 Mg-26 Mg Tablet) 1 tab PO BID [facility] Last Admin: 08/26/18 00:10 Dose: 1 tab Senna (Senna -) 2 tab PO HS [facility] Last Admin: 08/26/18 00:10 Dose: 2 tab Trazodone HCl (Desyrel -) 100 mg PO [facility] ASSESSMENT/PLAN: 53 y/o F with PMHx of COPD (Now [facility]'ed x 1 year), Diastolic CHF, Chronic Hypoxic Hypercapnic Respiratory Failure, VTE (On Elliquis), Hypothyroidism, DM who was recently discharged from [facility] in 06/06 was BIBEMS from SNF for Worsening SOB, Nonproductive cough, Chest Pressure and Body swelling x 1 week. #Neuro Hx of Depression -A&Ox3, NAD -No active issues, Continue to monitor -Continue home dose Trazodone, Mirtazapine, Gabapentin, Escitalopram, Aripiprazole #Cardio Hypotensive on admission, Improving Chest Pressure, Improving Volume Overloaded Hx of Diastolic CHF, VTE (On Elliquis) -Trop < 0.02 -BNP 58.92 -EKG: SINUS BRADYCARDIA, VR 57, QTc 432 -Echo pending -Dr. Browning consulted -Increase Furosemide to BID -Continue home dose Sacubitril/Valsartan, Atorvastatin, ASA, Apixaban -Monitor urine output, Daily weights, Creatinine #Pulmonary Worsening SOB, Nonproductive cough Hx of COPD (Now [facility]'ed x 1 year), Chronic Hypoxic Hypercapnic Respiratory Failure -Likely due to Fluid Overload -CXR: A single AP view the chest reveals little change since 06/02/2018. The soft tissues are excessive. There is a weak inspiration, apical lordotic projection, tracheostomy tube and prominent mediastinum with congestive and infiltrative findings. -Vent Settings 500/14/50%/+5 -Continue home dose Budesonide/Formoterol, Montelukast, Albuterol/Ipratropium -Supplemental O2 to maintain Sats 88-95% #GI -Bowel Regimen via Senna, Miralax, Colace -Continue home dose Pantoprazole -PO as tolerated #Renal -No active issues, continue to monitor #Heme Normocytic, Normochromic anemia -Likely dilutional from fluid overload; No signs of Active bleeding -Continue to monitor #Endo Hx of Hypothyroidism, DM -TSH 3.29 -ISS BGMs ACHS -Continue home dose Levothyroxine #ID -Afebrile, Without elevated WBC Count -UA, Influenza Negative -Blood and Urine Cx pending -Given 1 dose Vanco, Zosyn in ED -No indication for ABx at this time; Monitor off for now #FEN -PO Fluids -Replete Lytes PRN -Sodium controlled diet #PPx -DVT: Home dose Elliquis -GI: Pantoprazole Dispo: Transfer to [facility]-Surg Visit type - Emergency Visit Emergency Visit: Yes ED Registration Date: 08/25/18 Care time: The patient presented to the Emergency Department on the above date and was hospitalized for further evaluation of their emergent condition. - New Patient This patient is new to me today: Yes Date on this admission: 08/26/18 - Critical Care Critical Care patient: Yes Total Critical Care Time (in minutes): 40 Critical Care Statement: The care of this patient involved high complexity decision making to prevent further life threatening deterioration of the patient 's condition and/or to evaluate & treat vital organ system(s) failure or risk of failure.
[2018-08-26] MEDS: ARIPiprazole 5 MG TABLET (FP) PO SCH (11:38)
[2018-08-26 12:05] LABS: ALBUMIN 2.8 g/dl (3.4-5.0); ALK PHOS 76 U/L (45-117); ANION GAP 3 MMOL/L (8-16); BILIRUBIN,TOTAL 0.6 mg/dL (0.2-1); BLOOD UREA NITROGEN 13 mg/dL (7-18); CALCIUM 8.7 mg/dL (8.5-10.1); CHLORIDE 96 mmol/L (98-107); CO2 42 mmol/L (21-32); CREATININE 0.5 mg/dL (0.55-1.3); GLUCOSE,RANDOM 89 mg/dL (74-106); MAGNESIUM 1.9 mg/dL (1.8-2.4); PHOSPHOROUS 5.1 mg/dL (2.5-4.9); POTASSIUM 3.7 mmol/L (3.5-5.1); SGOT/AST 12 U/L (15-37); SGPT/ALT 23 U/L (13-61); SODIUM 141 mmol/L (136-145); TOT PROT 5.9 g/dl (6.4-8.2)
--- NOTE | 2018-08-26 13:41 | PN ---
Progress Note (short form) - Note Progress Note: ID CONSULT DICTATED HYPERCAPNEIC RESP FAILURE ? HCAP COPD EXACERBATION LEUKOPENIA ? VIRAL ILLNESS ? SEPSIS PENDING C/S EMPIRIC CEFTRIAXONE
[2018-08-26] MEDS ORDERED: DEXTROSE 5%-WATER 100 ML IVPB ONE (13:49)
[2018-08-26] MEDS: CEFTRIAXONE 2 GM in DEXTROSE 5%-WATER 100 ML IVPB SCH (13:55)
[2018-08-26] MEDS: ACETAMINOPHEN 500 MG TABLET (FP) PO PRN (13:56)
--- NOTE | 2018-08-26 15:12 | CONS ---
DATE OF CONSULTATION: DATE OF DICTATION: 08/26/2018 HISTORY OF PRESENT ILLNESS: The patient is a 53-year-old female with a history of chronic respiratory failure status post tracheostomy, evaluated for possible pneumonia. [facility]. She has a history of respiratory failure and tracheostomy. She is on the ventilator in the events and on tracheostomy collar during the day. At the [facility] she was noted to be increasingly short of breath with cough productive of thick yellowish sputum. Also anasarca. She presented to the emergency room where she was treated with bronchodilators. A chest x-ray shows poor inspiratory effort with increased markings bilaterally. Cannot rule out infiltrate. She was empirically treated with vancomycin and Zosyn. The patient is presently awake and alert. She reports thick tracheal secretions. She was unaware of the color of the secretions. She denies any fever or chills. No complaints of chest pain. No complaints of dyspnea at the present time. She has had multiple hospital admissions both here and other institutions for acute exacerbation of COPD and hypercapnic respiratory failure. In the past she has had mixed organisms from the tracheostomy site including multidrug-resistant organisms. PAST MEDICAL HISTORY: Positive for chronic respiratory failure status post tracheostomy, congestive heart failure, COPD, morbid obesity, hypothyroidism, psychiatric disorder. ALLERGIES: No known allergies. MEDICATIONS: Include Symbicort, Entresto, Eliquis, Neurontin, Lexapro, Remeron, trazodone, Abilify, DuoNeb, Lipitor, Singulair, Lasix, aspirin, Protonix, Synthroid. SOCIAL HISTORY: Resides in a prison facility. Former smoker. No active tobacco or alcohol use. REVIEW OF SYSTEMS: Neurologic: No loss of consciousness, seizure activity, focal weakness. Cardiac: Negative chest pain or palpitations. Respiratory: As per HPI. Gastrointestinal: Negative vomiting or diarrhea. Genitourinary: Negative for urinary tract infection. LABORATORY DATA: White count 3.9, 67 neutrophils, 25 lymphocytes, 4 monocytes, hematocrit 28.8, platelet count 169, creatinine 0.5. Urinalysis negative. Influenza swab negative. Liver enzymes normal. Chest x-ray: Poor inspiratory effort, congestive changes bilaterally. PHYSICAL EXAMINATION: General: She is awake and alert. She is morbidly obese. Supine in bed she is in no acute respiratory distress. Breathing is nonlabored on the ventilator. Vital Signs: Temperature 98.2, blood pressure 103/58, pulse 72, regular. Respirations 18 per minute. HEENT: Sclerae are anicteric. Cardiovascular: Heart sounds S1, S2. Lungs: Poor inspiratory effort. Decreased breath sounds bilaterally. Abdomen: Obese, soft, nontender. Extremities: Positive for anasarca, edema of the upper and lower extremities bilaterally. IMPRESSION: 1. Hypercapnic respiratory failure. 2. Possible healthcare-acquired pneumonia. 3. Chronic obstructive pulmonary disease exacerbation. 4. Leukopenia possibly secondary to viral illness versus sepsis. 5. Anasarca. Await cultures. Obtain sputum culture, urine Legionella and pneumococcal antigens. Empiric antibiotic coverage lung pathogens with ceftriaxone 2 g IV piggyback every 24 hours. Continue ventilatory support. Intensive care unit monitoring. Thank you for the kind referral. HUONG RUHS M.D. [id number]
--- NOTE | 2018-08-26 16:30 | ECHO ---
Name: SEKOU EVANS Exam:Adult Echocardiogram Study Date: 08/26/2018 03:28 PM Age: 53 yrs Reason For Study: LV Function Height: 61 in Weight: 351 lb BSA: 2.4 m2 MMode/2D Measurements & Calculations IVSd: 1.0 cm Ao root diam: 2.5 cm LVIDd: 6.0 cm LA dimension: 5.1 cm LVIDs: 3.7 cm LVPWd: 1.3 cm LVPWs: 2.0 cm EDV(Teich): 178.5 ml ESV(Teich): 56.7 ml LVOT diam: 2.0 cm RV S Ferny: 13.8 cm/sec Doppler Measurements & Calculations MV E max ferny: 107.0 cm/sec Ao V2 max: 167.2 cm/sec MV A max ferny: 43.7 cm/sec Ao max P.2 mmHg MV E/A: 2.5 MV dec time: 0.23 sec ULYSSES(V,D): 1.8 cm2 LV V1 max P.7 mmHg PA V2 max: 138.5 cm/sec LV V1 max: 95.6 cm/sec PA max P.7 mmHg Med Peak E' Ferny: 7.7 cm/sec Med E/e': 13.9 Lat Peak E' Ferny: 8.6 cm/sec Lat E/e': 12.5 Procedure A complete two-dimensional transthoracic echocardiogram was performed (2D, M-mode, Doppler and color flow Doppler). The study was technically limited with all images being suboptimal in quality. Left Ventricle The left ventricular size, thickness and function are normal. The left ventricular ejection fraction is normal. Ejection Fraction = 55-60%. Regional wall motion abnormalities cannot be excluded due to limi carmen visualization. Right Ventricle The right ventricle is not well visualized. Atria The left atrium is not well visualized. Right atrium not well visualized. Mitral Valve There is no mitral regurgitation noted. Tricuspid Valve There is trace tricuspid regurgitation. There was insufficient TR detected to calculate RV systolic p ressure. Aortic Valve No hemodynamically significant valvular aortic stenosis. No aortic regurgitation is present. Pulmonic Valve There is no pulmonic valvular regurgitation. Great Vessels The aortic root is normal size. Pericardium/Pleura There is no pericardial effusion. Interpretation Summary The study was technically limited with all images being suboptimal in quality. The left ventricular size, thickness and function are normal The right ventricle is not well visualized. There is trace tricuspid regurgitation. MD Miguel Martin 08/26/2018 04:30 PM
[2018-08-26] MEDS: traZODone HCL 100 MG TABLET (FP) PO SCH (22:16)
[2018-08-27] MEDS: FUROSEMIDE 40 MG/4 ML INJECTABLE VIAL IVPUSH SCH ×2 (02:35→05:33)
[2018-08-27] MEDS: GABAPENTIN 400 MG CAPSULE (FP) PO SCH ×3 (05:33→21:46)
[2018-08-27] MEDS: LEVOTHYROXINE NA 25 MCG TABLET (FP) PO SCH (06:03)
[2018-08-27 06:16] LABS: BASO % 0.4 % (0-2.0); EOS % 1.7 % (0-4.5); HEMATOCRIT 27.8 % (32.4-45.2); LYMPH % 23.9 % (8-40); MCH 27.1 pg (25.7-33.7); MCHC 32.3 g/dl (32.0-36.0); MEAN CELL VOLUME 83.7 fl (80-96); MEAN PLT VOLUME 8.1 fl (7.5-11.1); MONO % 5.5 % (3.8-10.2); NEUT % 68.5 % (42.8-82.8); PLATELET COUNT 190 K/MM3 (134-434); RBC 3.32 M/mm3 (3.60-5.2); RDW 14.3 % (11.6-15.6); WHITE BLOOD COUNT 5.2 K/mm3 (4.0-10.0)
[2018-08-27 06:59] LABS: ALK PHOS 81 U/L (45-117); ANION GAP 4 MMOL/L (8-16); BILIRUBIN,TOTAL 0.4 mg/dL (0.2-1); BLOOD UREA NITROGEN 17 mg/dL (7-18); CALCIUM 9.1 mg/dL (8.5-10.1); CHLORIDE 96 mmol/L (98-107); CO2 39 mmol/L (21-32); CREATININE 0.6 mg/dL (0.55-1.3); GLUCOSE,RANDOM 95 mg/dL (74-106); MAGNESIUM 1.7 mg/dL (1.8-2.4); PHOSPHOROUS 5.2 mg/dL (2.5-4.9); POTASSIUM 3.9 mmol/L (3.5-5.1); SGOT/AST 11 U/L (15-37); SGPT/ALT 23 U/L (13-61); SODIUM 140 mmol/L (136-145); TOT PROT 6.2 g/dl (6.4-8.2)
[2018-08-27] MEDS ORDERED: PT OWN MED DRAWER 7, Y5N ONE (08:08)
[2018-08-27] MEDS ORDERED: DEXTROSE 5%-WATER 100 ML IVPB ONE (08:10)
--- NOTE | 2018-08-27 09:33 | PN ---
Progress Note, Physician Chief Complaint: sig diuresis by Is/Os Weights do not appear reliable TELE: NSR - Current Medication List Current Medications: Active Medications Acetaminophen (Tylenol -) 1,000 mg PO Q6H PRN PRN Reason: PAIN Last Admin: 08/26/18 13:56 Dose: 1,000 mg Albuterol/Ipratropium (Duoneb -) 1 amp NEB Q6H PRN PRN Reason: SHORTNESS OF BREATH Last Admin: 08/26/18 05:00 Dose: 1 amp Apixaban (Eliquis -) 2.5 mg PO BID [facility] Last Admin: 08/26/18 22:12 Dose: 2.5 mg Aripiprazole (Abilify) 10 mg PO DAILY [facility] Last Admin: 08/26/18 11:38 Dose: 10 mg Aspirin (Asa -) 81 mg PO DAILY [facility] Last Admin: 08/26/18 09:31 Dose: 81 mg Atorvastatin Calcium (Lipitor -) 20 mg PO HS [facility] Last Admin: 08/26/18 22:12 Dose: 20 mg Budesonide/Formoterol Fumarate (Symbicort 160/4.5mcg -) 2 puff IH BID [facility] Last Admin: 08/26/18 22:19 Dose: 2 puff Clotrimazole (Lotrisone Cream (Small Tube)) 1 applic TP BID [facility] Last Admin: 08/26/18 22:18 Dose: 1 applic Docusate Sodium (Colace -) 100 mg PO HS [facility] Last Admin: 08/26/18 22:12 Dose: 100 mg Escitalopram Oxalate (Lexapro -) 20 mg PO DAILY [facility] Last Admin: 08/26/18 09:31 Dose: 20 mg Furosemide (Lasix Injection -) 40 mg IVPUSH BID@0600,1400 [facility] Last Admin: 08/27/18 05:33 Dose: 40 mg Gabapentin (Neurontin -) 400 mg PO TID [facility] Last Admin: 08/27/18 05:33 Dose: 400 mg Ceftriaxone Sodium 2 gm/ (Dextrose) 100 mls @ 200 mls/hr IVPB DAILY [facility]; Protocol Last Admin: 08/26/18 13:55 Dose: 200 mls/hr Lactobacillus Acidophilus (Bacid -) 1 tab PO BID [facility] Last Admin: 08/26/18 22:12 Dose: 1 tab Levothyroxine Sodium (Synthroid -) 25 mcg PO DAILY@0700 [facility] Last Admin: 08/27/18 06:03 Dose: 25 mcg Mirtazapine (Remeron -) 15 mg PO [facility] Last Admin: 08/26/18 22:12 Dose: 15 mg Montelukast Sodium (Singulair -) 10 mg PO [facility] Last Admin: 08/26/18 22:12 Dose: 10 mg Pantoprazole Sodium (Protonix -) 40 mg PO DAILY [facility] Last Admin: 08/26/18 09:31 Dose: 40 mg Polyethylene Glycol (Miralax (For Daily Use) -) 17 gm PO DAILY [facility] Last Admin: 08/26/18 10:36 Dose: 17 grams Sacubitril/Valsartan (Entresto 24 Mg-26 Mg Tablet) 1 tab PO BID [facility] Last Admin: 08/26/18 22:17 Dose: 1 tab Senna (Senna -) 2 tab PO [facility] Last Admin: 08/26/18 22:12 Dose: 2 tab Trazodone HCl (Desyrel -) 100 mg PO [facility] Last Admin: 08/26/18 22:16 Dose: 100 mg - Objective Vital Signs: Vital Signs Temperature 98.9 F 08/27/18 02:00 Pulse Rate 63 08/27/18 08:20 Respiratory Rate 22 H 08/27/18 08:20 Blood Pressure 104/56 L 08/27/18 06:00 O2 Sat by Pulse Oximetry (%) 100 08/27/18 08:20 Constitutional: Yes: No Distress, Calm Cardiovascular: Yes: Regular Rate and Rhythm Respiratory: Yes: Other (rales at bases) Gastrointestinal: Yes: Soft, Abdomen, Obese Edema: Yes Edema: LLE: 2+, RLE: 2+ Peripheral Pulses WNL: Yes Neurological: Yes: Alert, Oriented Labs: CBC, BMP 08/27/18 05:40 08/27/18 05:40 INR, PTT INR 1.23 (0.83-1.09) H 08/25/18 13:30 - ....Imaging EKG: Image Reviewed Assessment/Plan IMP: Morbid obesity Prior VTE on AC Worsened Dyspnea: CHF vs PNA (decompensated diastolic) Anasarca REC: Vent support Cultures/Abx/ supplimental O2 as per ICU Echo TDS, report reviewed; grossly normal LV fx Diurese as BP allows. Cont AC
--- NOTE | 2018-08-27 09:52 | PN ---
Progress Note (short form) - Note Progress Note: pt seen/ examined in icu chart reviewed discussed with nursing staff awake/ comfortable mood stable Vital Signs Temp 98.9 F 08/27/18 02:00 Pulse 63 08/27/18 08:20 Resp 22 H 08/27/18 08:20 BP 104/56 L 08/27/18 06:00 Pulse Ox 100 08/27/18 08:20 Intake & Output 08/26/18 08/26/18 08/27/18 11:59 23:59 11:59 Intake Total 50 940 100 Output Total 1999 1000 1000 Balance -1950 -60 -900 Weight 397 lb 3.2 oz 397 lb 3.2 oz Intake: IVPB 50 150 Oral 790 100 Output: Urine 1999 1000 1000 Carroll 1999 1000 1000 Other: Voiding Method Indwelling Catheter Indwelling Catheter Bowel Movement No No Height 5 ft 1 in Body Mass Index (BMI) 74.9 Weight Measurement Method Built in Bedscale Built in Bedscale Active Medications Acetaminophen (Tylenol -) 1,000 mg PO Q6H PRN PRN Reason: PAIN Last Admin: 08/26/18 13:56 Dose: 1,000 mg Albuterol/Ipratropium (Duoneb -) 1 amp NEB Q6H PRN PRN Reason: SHORTNESS OF BREATH Last Admin: 08/26/18 05:00 Dose: 1 amp Apixaban (Eliquis -) 2.5 mg PO BID [facility] Last Admin: 08/26/18 22:12 Dose: 2.5 mg Aripiprazole (Abilify) 10 mg PO DAILY [facility] Last Admin: 08/26/18 11:38 Dose: 10 mg Aspirin (Asa -) 81 mg PO DAILY [facility] Last Admin: 08/26/18 09:31 Dose: 81 mg Atorvastatin Calcium (Lipitor -) 20 mg PO [facility] Last Admin: 08/26/18 22:12 Dose: 20 mg Budesonide/Formoterol Fumarate (Symbicort 160/4.5mcg -) 2 puff IH BID [facility] Last Admin: 08/26/18 22:19 Dose: 2 puff Clotrimazole (Lotrisone Cream (Small Tube)) 1 applic TP BID [facility] Last Admin: 08/26/18 22:18 Dose: 1 applic Docusate Sodium (Colace -) 100 mg PO [facility] Last Admin: 08/26/18 22:12 Dose: 100 mg Escitalopram Oxalate (Lexapro -) 20 mg PO DAILY [facility] Last Admin: 08/26/18 09:31 Dose: 20 mg Furosemide (Lasix Injection -) 40 mg IVPUSH BID@0600,1400 [facility] Last Admin: 08/27/18 05:33 Dose: 40 mg Gabapentin (Neurontin -) 400 mg PO TID [facility] Last Admin: 08/27/18 05:33 Dose: 400 mg Ceftriaxone Sodium 2 gm/ (Dextrose) 100 mls @ 200 mls/hr IVPB DAILY [facility]; Protocol Last Admin: 08/26/18 13:55 Dose: 200 mls/hr Lactobacillus Acidophilus (Bacid -) 1 tab PO BID [facility] Last Admin: 08/26/18 22:12 Dose: 1 tab Levothyroxine Sodium (Synthroid -) 25 mcg PO DAILY@0700 [facility] Last Admin: 08/27/18 06:03 Dose: 25 mcg Mirtazapine (Remeron -) 15 mg PO [facility] Last Admin: 08/26/18 22:12 Dose: 15 mg Montelukast Sodium (Singulair -) 10 mg PO [facility] Last Admin: 08/26/18 22:12 Dose: 10 mg Pantoprazole Sodium (Protonix -) 40 mg PO DAILY [facility] Last Admin: 08/26/18 09:31 Dose: 40 mg Polyethylene Glycol (Miralax (For Daily Use) -) 17 gm PO DAILY [facility] Last Admin: 08/26/18 10:36 Dose: 17 grams Sacubitril/Valsartan (Entresto 24 Mg-26 Mg Tablet) 1 tab PO BID [facility] Last Admin: 08/26/18 22:17 Dose: 1 tab Senna (Senna -) 2 tab PO [facility] Last Admin: 08/26/18 22:12 Dose: 2 tab Trazodone HCl (Desyrel -) 100 mg PO [facility] Last Admin: 08/26/18 22:16 Dose: 100 mg CBC, BMP 08/27/18 05:40 08/27/18 05:40 Microbiology 08/25/18 15:18 Urine Culture - Final Urine - Urine - Catheterized NO GROWTH OBTAINED 08/25/18 15:18 Blood Culture - Preliminary Blood - Peripheral Venous NO GROWTH OBTAINED AFTER 24 HOURS, INCUBATION TO CONTINUE FOR 4 DAYS. 08/25/18 13:00 Blood Culture - Preliminary Blood - Peripheral Venous NO GROWTH OBTAINED AFTER 24 HOURS, INCUBATION TO CONTINUE FOR 4 DAYS. Abnormal Lab Results 08/26/18 08/26/18 08/27/18 09:15 11:04 05:40 WBC 3.9 L RBC 3.41 L 3.32 L Hgb 9.5 L 9.0 L Hct 28.8 L 27.8 L Chloride 96 L Carbon Dioxide 42 H Anion Gap 3 L Creatinine 0.5 L Phosphorus 5.1 H Magnesium AST 12 L Total Protein 5.9 L Albumin 2.8 L 08/27/18 05:40 WBC RBC Hgb Hct Chloride 96 L Carbon Dioxide 39 H Anion Gap 4 L Creatinine Phosphorus 5.2 H Magnesium 1.7 L AST 11 L Total Protein 6.2 L Albumin 3.0 L Physical Examination Constitutional: Yes: No Distress, awake. Obese Cardiovascular: Yes: Regular Rate and Rhythm Respiratory: Yes: Diminished, Mechanically Ventilated Gastrointestinal: Yes: Normal Bowel Sounds, Soft, Abdomen, Obese. No: Tenderness Edema: Yes Psychiatric: Yes: Alert, Oriented Imaging - Results Chest X-ray: Image Reviewed EKG: Image Reviewed (sinus bradycardia) Problem List - Problems (1) Acute on chronic respiratory failure with hypoxia and hypercapnia Code(s): J96.21 - ACUTE AND CHRONIC RESPIRATORY FAILURE WITH HYPOXIA; J96.22 - ACUTE AND CHRONIC RESPIRATORY FAILURE WITH HYPERCAPNIA (2) CHF (congestive heart failure) Code(s): I50.9 - HEART FAILURE, UNSPECIFIED (3) Diabetes Code(s): E11.9 - TYPE 2 DIABETES MELLITUS WITHOUT COMPLICATIONS (4) Morbid obesity Code(s): E66.01 - MORBID (SEVERE) OBESITY DUE TO EXCESS CALORIES Assessment/Plan stable meds reviewed continue with Lasix BID , continue with Eliquis monitor urine output physical therapy abx may transfer to floor care will follow discussed with icu team cc time 25 min
[2018-08-27] MEDS: LACTOBACILLUS ACIDOPHILUS 1 TABLET PO SCH ×2 (10:32→21:46)
[2018-08-27] MEDS: ASPIRIN 81 MG CHEWABLE TABLETS PO SCH (10:33)
[2018-08-27] MEDS: PANTOPRAZOLE 40 MG TABLET (FP) PO SCH (10:33)
[2018-08-27] MEDS: ESCITALOPRAM OXALATE 20 MG TABLET (FP) PO SCH (10:33)
[2018-08-27] MEDS: ACETAMINOPHEN 500 MG TABLET (FP) PO PRN (10:33)
[2018-08-27] MEDS: APIXABAN 2.5 MG TABLET PO SCH ×2 (10:33→21:52)
[2018-08-27] MEDS: SACUBITRIL/VALSARTAN 24 MG-26 MG TABLET PO SCH ×2 (10:34→21:47)
[2018-08-27] MEDS: CEFTRIAXONE 2 GM in DEXTROSE 5%-WATER 100 ML IVPB SCH (10:34)
[2018-08-27] MEDS: ARIPiprazole 5 MG TABLET (FP) PO SCH (10:35)
[2018-08-27] MEDS: CLOTRIMAZOLE/BETAMET DIPROP 15 GM TUBE TP SCH ×2 (10:38→21:50)
[2018-08-27] MEDS: POLYETHYLENE GLYCOL 3350 119 GM BTL PO SCH (10:39)
[2018-08-27] MEDS: BUDESONIDE/FORMETEROL FUMARATE 160/4.5 mcg INHALER IH SCH ×2 (10:40→21:51)
--- NOTE | 2018-08-27 11:03 | PN ---
Progress Note, Physician History of Present Illness: AWAKE, ALERT ON VENTILATOR OCCASIONAL COUGH NO C/O CHEST PAIN AFEBRILE WBC WNL C/S PENDING - Current Medication List Current Medications: Active Medications Acetaminophen (Tylenol -) 1,000 mg PO Q6H PRN PRN Reason: PAIN Last Admin: 08/27/18 10:33 Dose: 1,000 mg Albuterol/Ipratropium (Duoneb -) 1 amp NEB Q6H PRN PRN Reason: SHORTNESS OF BREATH Last Admin: 08/26/18 05:00 Dose: 1 amp Apixaban (Eliquis -) 2.5 mg PO BID [facility] Last Admin: 08/27/18 10:33 Dose: 2.5 mg Aripiprazole (Abilify) 10 mg PO DAILY [facility] Last Admin: 08/27/18 10:35 Dose: 10 mg Aspirin (Asa -) 81 mg PO DAILY [facility] Last Admin: 08/27/18 10:33 Dose: 81 mg Atorvastatin Calcium (Lipitor -) 20 mg PO HS [facility] Last Admin: 08/26/18 22:12 Dose: 20 mg Budesonide/Formoterol Fumarate (Symbicort 160/4.5mcg -) 2 puff IH BID [facility] Last Admin: 08/27/18 10:40 Dose: 2 puff Clotrimazole (Lotrisone Cream (Small Tube)) 1 applic TP BID [facility] Last Admin: 08/27/18 10:38 Dose: 1 applic Docusate Sodium (Colace -) 100 mg PO HS [facility] Last Admin: 08/26/18 22:12 Dose: 100 mg Escitalopram Oxalate (Lexapro -) 20 mg PO DAILY [facility] Last Admin: 08/27/18 10:33 Dose: 20 mg Furosemide (Lasix Injection -) 40 mg IVPUSH BID@0600,1400 [facility] Last Admin: 08/27/18 05:33 Dose: 40 mg Gabapentin (Neurontin -) 400 mg PO TID [facility] Last Admin: 08/27/18 05:33 Dose: 400 mg Ceftriaxone Sodium 2 gm/ (Dextrose) 100 mls @ 200 mls/hr IVPB DAILY [facility]; Protocol Last Admin: 08/27/18 10:34 Dose: 200 mls/hr Lactobacillus Acidophilus (Bacid -) 1 tab PO BID [facility] Last Admin: 08/27/18 10:32 Dose: 1 tab Levothyroxine Sodium (Synthroid -) 25 mcg PO DAILY@0700 [facility] Last Admin: 08/27/18 06:03 Dose: 25 mcg Mirtazapine (Remeron -) 15 mg PO [facility] Last Admin: 08/26/18 22:12 Dose: 15 mg Montelukast Sodium (Singulair -) 10 mg PO [facility] Last Admin: 08/26/18 22:12 Dose: 10 mg Pantoprazole Sodium (Protonix -) 40 mg PO DAILY [facility] Last Admin: 08/27/18 10:33 Dose: 40 mg Polyethylene Glycol (Miralax (For Daily Use) -) 17 gm PO DAILY [facility] Last Admin: 08/27/18 10:39 Dose: 17 grams Sacubitril/Valsartan (Entresto 24 Mg-26 Mg Tablet) 1 tab PO BID [facility] Last Admin: 08/27/18 10:34 Dose: 1 tab Senna (Senna -) 2 tab PO [facility] Last Admin: 08/26/18 22:12 Dose: 2 tab Trazodone HCl (Desyrel -) 100 mg PO [facility] Last Admin: 08/26/18 22:16 Dose: 100 mg - Objective Vital Signs: Vital Signs Temperature 98.9 F 08/27/18 02:00 Pulse Rate 63 08/27/18 08:20 Respiratory Rate 21 H 08/27/18 10:58 Blood Pressure 104/56 L 08/27/18 06:00 O2 Sat by Pulse Oximetry (%) 100 08/27/18 08:20 Constitutional: Yes: No Distress, Obese Eyes: Yes: Conjunctiva Clear Cardiovascular: Yes: Regular Rate and Rhythm, S1, S2 Respiratory: Yes: Rhonchi Gastrointestinal: Yes: Normal Bowel Sounds, Soft, Abdomen, Obese. No: Tenderness Edema: Yes Edema: LUE: 2+, RUE: 2+, LLE: 2+, RLE: 2+ Labs: CBC, BMP 08/27/18 05:40 08/27/18 05:40 INR, PTT INR 1.23 (0.83-1.09) H 08/25/18 13:30 Assessment/Plan HYPERCAPNEIC RESP FAILURE COPD EXACERBATION ? HCAP ANASARCA AWAIT C/S CONTINUE CEFTRIAXONE
--- NOTE | 2018-08-27 12:20 | PN ---
Teaching Attending Note Name of Resident: Tracy Rojo ATTENDING PHYSICIAN STATEMENT I saw and evaluated the patient. I reviewed the resident's note and discussed the case with the resident. I agree with the resident's findings and plan as documented. SUBJECTIVE: Patient seen and examined in the ICU. Vented on volume assist control. Awake and alert and reports feeling better. Still some dyspnea with minimal exertion. No fevers or chills. Nonproductive cough. OBJECTIVE: Intake & Output 08/24/18 08/25/18 08/26/18 08/27/18 23:59 23:59 23:59 23:59 Intake Total 990 100 Output Total 3000 1000 Balance -2009 - Weight 351 lb 397 lb 3.2 oz 397 lb 3.2 oz Last Vital Signs Temp Pulse Resp BP Pulse Ox 98.2 F 71 22 H 112/55 L 100 08/27/18 10:00 08/27/18 10:00 08/27/18 11:47 08/27/18 10:00 08/27/18 08:20 Active Medications Acetaminophen (Tylenol -) 1,000 mg PO Q6H PRN PRN Reason: PAIN Last Admin: 08/27/18 10:33 Dose: 1,000 mg Albuterol/Ipratropium (Duoneb -) 1 amp NEB Q6H PRN PRN Reason: SHORTNESS OF BREATH Last Admin: 08/26/18 05:00 Dose: 1 amp Apixaban (Eliquis -) 2.5 mg PO BID [facility] Last Admin: 08/27/18 10:33 Dose: 2.5 mg Aripiprazole (Abilify) 10 mg PO DAILY [facility] Last Admin: 08/27/18 10:35 Dose: 10 mg Aspirin (Asa -) 81 mg PO DAILY [facility] Last Admin: 08/27/18 10:33 Dose: 81 mg Atorvastatin Calcium (Lipitor -) 20 mg PO HS [facility] Last Admin: 08/26/18 22:12 Dose: 20 mg Budesonide/Formoterol Fumarate (Symbicort 160/4.5mcg -) 2 puff IH BID [facility] Last Admin: 08/27/18 10:40 Dose: 2 puff Clotrimazole (Lotrisone Cream (Small Tube)) 1 applic TP BID [facility] Last Admin: 08/27/18 10:38 Dose: 1 applic Docusate Sodium (Colace -) 100 mg PO [facility] Last Admin: 08/26/18 22:12 Dose: 100 mg Escitalopram Oxalate (Lexapro -) 20 mg PO DAILY [facility] Last Admin: 08/27/18 10:33 Dose: 20 mg Furosemide (Lasix Injection -) 40 mg IVPUSH BID@0600,1400 [facility] Last Admin: 08/27/18 05:33 Dose: 40 mg Gabapentin (Neurontin -) 400 mg PO TID [facility] Last Admin: 08/27/18 05:33 Dose: 400 mg Ceftriaxone Sodium 2 gm/ (Dextrose) 100 mls @ 200 mls/hr IVPB DAILY [facility]; Protocol Last Admin: 08/27/18 10:34 Dose: 200 mls/hr Lactobacillus Acidophilus (Bacid -) 1 tab PO BID [facility] Last Admin: 08/27/18 10:32 Dose: 1 tab Levothyroxine Sodium (Synthroid -) 25 mcg PO DAILY@0700 [facility] Last Admin: 08/27/18 06:03 Dose: 25 mcg Mirtazapine (Remeron -) 15 mg PO [facility] Last Admin: 08/26/18 22:12 Dose: 15 mg Montelukast Sodium (Singulair -) 10 mg PO [facility] Last Admin: 08/26/18 22:12 Dose: 10 mg Pantoprazole Sodium (Protonix -) 40 mg PO DAILY [facility] Last Admin: 08/27/18 10:33 Dose: 40 mg Polyethylene Glycol (Miralax (For Daily Use) -) 17 gm PO DAILY [facility] Last Admin: 08/27/18 10:39 Dose: 17 grams Sacubitril/Valsartan (Entresto 24 Mg-26 Mg Tablet) 1 tab PO BID [facility] Last Admin: 08/27/18 10:34 Dose: 1 tab Senna (Senna -) 2 tab PO [facility] Last Admin: 08/26/18 22:12 Dose: 2 tab Trazodone HCl (Desyrel -) 100 mg PO [facility] Last Admin: 08/26/18 22:16 Dose: 100 mg Gen: vented, awake Heart: RRR Lung: decreased breath sounds at the bases Abd: soft, nontender Ext: + edema Laboratory Results - last 24 hr 08/26/18 08/26/18 08/27/18 12:51 16:35 05:40 WBC 5.2 RBC 3.32 L Hgb 9.0 L Hct 27.8 L MCV 83.7 MCH 27.1 MCHC 32.3 RDW 14.3 Plt Count 190 MPV 8.1 Absolute Neuts (auto) 3.5 Neutrophils % 68.5 Lymphocytes % 23.9 Monocytes % 5.5 Eosinophils % 1.7 Basophils % 0.4 Nucleated RBC % 0 Sodium Potassium Chloride Carbon Dioxide Anion Gap BUN Creatinine Creat Clearance w eGFR POC Glucometer 104 Random Glucose Calcium Phosphorus Magnesium Total Bilirubin AST ALT Alkaline Phosphatase Total Protein Albumin Blood Type O POSITIVE 08/27/18 08/27/18 05:40 12:03 WBC RBC Hgb Hct MCV MCH MCHC RDW Plt Count MPV Absolute Neuts (auto) Neutrophils % Lymphocytes % Monocytes % Eosinophils % Basophils % Nucleated RBC % Sodium 140 Potassium 3.9 Chloride 96 L Carbon Dioxide 39 H Anion Gap 4 L BUN 17 Creatinine 0.6 Creat Clearance w eGFR > 60 POC Glucometer 164 Random Glucose 95 Calcium 9.1 Phosphorus 5.2 H Magnesium 1.7 L Total Bilirubin 0.4 AST 11 L ALT 23 Alkaline Phosphatase 81 Total Protein 6.2 L Albumin 3.0 L Blood Type ASSESSMENT AND PLAN: Chronic Respiratory Failure s/p Tracheostomy Volume Overload/Anasarca COPD Hypothyroidism h/o VTE Bipolar Disorder Depression - Lasix - monitor urine output, creatinine - daily weights - echocardiogram - continue anticoagulation - inhaled bronchodilators - O2 to keep SpO2 >90% - spontaneous breathing trials as tolerated with goal of trach collar during day, vented at night: Would be conservative given considerable volume overload - PO as tolerated - DVT/GI prophylaxis - can monitor on vent floor Dr [place]
--- NOTE | 2018-08-27 15:50 | PN ---
Physical Exam: SUBJECTIVE: Patient seen and examined this AM in ICU. Feels breathing has improved and decreased SOB. Continues to have nonproductive cough. Edema improving. Denies fevers, chills, chest pain, SOB, nausea, vomiting, diarrhea, constipation. OBJECTIVE: Vital Signs Period Temp Pulse Resp BP Sys/Petersen Pulse Ox Last 24 Hr 98.2 F-98.9 F 52-71 14-30 97-112/45-65 97-100 GENERAL: A&Ox3, NAD HEAD: NCAT EYES: PERRL, EOMI ENT: Moist mucous membranes NECK: Supple LUNGS: Vented, Diminished breath sounds at the bases HEART: Regular rate and rhythm, S1, S2 without murmur ABDOMEN: Obese, Soft, Tender to palpation in the lower quadrants, nondistended, + bowel sounds, no guarding EXTREMITIES: 1+ edema NEUROLOGICAL: Cranial nerves II through XII grossly intact. Normal speech SKIN: Warm, dry Laboratory Results - last 24 hr 08/26/18 08/27/18 08/27/18 16:35 05:40 05:40 WBC 5.2 RBC 3.32 L Hgb 9.0 L Hct 27.8 L MCV 83.7 MCH 27.1 MCHC 32.3 RDW 14.3 Plt Count 190 MPV 8.1 Absolute Neuts (auto) 3.5 Neutrophils % 68.5 Lymphocytes % 23.9 Monocytes % 5.5 Eosinophils % 1.7 Basophils % 0.4 Nucleated RBC % 0 Sodium 140 Potassium 3.9 Chloride 96 L Carbon Dioxide 39 H Anion Gap 4 L BUN 17 Creatinine 0.6 Creat Clearance w eGFR > 60 POC Glucometer 104 Random Glucose 95 Calcium 9.1 Phosphorus 5.2 H Magnesium 1.7 L Total Bilirubin 0.4 AST 11 L ALT 23 Alkaline Phosphatase 81 Total Protein 6.2 L Albumin 3.0 L 08/27/18 12:03 WBC RBC Hgb Hct MCV MCH MCHC RDW Plt Count MPV Absolute Neuts (auto) Neutrophils % Lymphocytes % Monocytes % Eosinophils % Basophils % Nucleated RBC % Sodium Potassium Chloride Carbon Dioxide Anion Gap BUN Creatinine Creat Clearance w eGFR POC Glucometer 164 Random Glucose Calcium Phosphorus Magnesium Total Bilirubin AST ALT Alkaline Phosphatase Total Protein Albumin Microbiology 08/25/18 15:18 Blood - Peripheral Venous Blood Culture - Preliminary NO GROWTH OBTAINED AFTER 48 HOURS, INCUBATION TO CONTINUE FOR 3 DAYS. 08/26/18 14:00 Sputum - Endotrachea Suction/Ventilator Gram Stain - Final 08/25/18 13:00 Blood - Peripheral Venous Blood Culture - Preliminary NO GROWTH OBTAINED AFTER 48 HOURS, INCUBATION TO CONTINUE FOR 3 DAYS. 08/26/18 14:00 Urine For Antigen Detection Legionella Antigen - Final 08/26/18 14:00 Urine For Antigen Detection Streptococcus pneumoniae Antigen (M - Final 08/25/18 15:18 Urine - Urine - Catheterized Urine Culture - Final NO GROWTH OBTAINED Active Medications Acetaminophen (Tylenol -) 1,000 mg PO Q6H PRN PRN Reason: PAIN Last Admin: 08/27/18 10:33 Dose: 1,000 mg Albuterol/Ipratropium (Duoneb -) 1 amp NEB Q6H PRN PRN Reason: SHORTNESS OF BREATH Last Admin: 08/26/18 05:00 Dose: 1 amp Apixaban (Eliquis -) 2.5 mg PO BID [facility] Last Admin: 08/27/18 10:33 Dose: 2.5 mg Aripiprazole (Abilify) 10 mg PO DAILY [facility] Last Admin: 08/27/18 10:35 Dose: 10 mg Aspirin (Asa -) 81 mg PO DAILY [facility] Last Admin: 08/27/18 10:33 Dose: 81 mg Atorvastatin Calcium (Lipitor -) 20 mg PO HS [facility] Last Admin: 08/26/18 22:12 Dose: 20 mg Budesonide/Formoterol Fumarate (Symbicort 160/4.5mcg -) 2 puff IH BID [facility] Last Admin: 08/27/18 10:40 Dose: 2 puff Clotrimazole (Lotrisone Cream (Small Tube)) 1 applic TP BID [facility] Last Admin: 08/27/18 10:38 Dose: 1 applic Docusate Sodium (Colace -) 100 mg PO HS [facility] Last Admin: 08/26/18 22:12 Dose: 100 mg Escitalopram Oxalate (Lexapro -) 20 mg PO DAILY [facility] Last Admin: 08/27/18 10:33 Dose: 20 mg Furosemide (Lasix Injection -) 40 mg IVPUSH BID@0600,1400 [facility] Last Admin: 08/27/18 05:33 Dose: 40 mg Gabapentin (Neurontin -) 400 mg PO TID [facility] Last Admin: 08/27/18 14:35 Dose: 400 mg Ceftriaxone Sodium 2 gm/ (Dextrose) 100 mls @ 200 mls/hr IVPB DAILY [facility]; Protocol Last Admin: 08/27/18 10:34 Dose: 200 mls/hr Lactobacillus Acidophilus (Bacid -) 1 tab PO BID [facility] Last Admin: 08/27/18 10:32 Dose: 1 tab Levothyroxine Sodium (Synthroid -) 25 mcg PO DAILY@0700 [facility] Last Admin: 08/27/18 06:03 Dose: 25 mcg Mirtazapine (Remeron -) 15 mg PO [facility] Last Admin: 08/26/18 22:12 Dose: 15 mg Montelukast Sodium (Singulair -) 10 mg PO [facility] Last Admin: 08/26/18 22:12 Dose: 10 mg Pantoprazole Sodium (Protonix -) 40 mg PO DAILY [facility] Last Admin: 08/27/18 10:33 Dose: 40 mg Polyethylene Glycol (Miralax (For Daily Use) -) 17 gm PO DAILY [facility] Last Admin: 08/27/18 10:39 Dose: 17 grams Sacubitril/Valsartan (Entresto 24 Mg-26 Mg Tablet) 1 tab PO BID [facility] Last Admin: 08/27/18 10:34 Dose: 1 tab Senna (Senna -) 2 tab PO [facility] Last Admin: 08/26/18 22:12 Dose: 2 tab Trazodone HCl (Desyrel -) 100 mg PO [facility] Last Admin: 08/26/18 22:16 Dose: 100 mg ASSESSMENT/PLAN: 53 y/o F with PMHx of COPD (Now Trach'ed x 1 year), Diastolic CHF, Chronic Hypoxic Hypercapnic Respiratory Failure, VTE (On Elliquis), Hypothyroidism, DM who was recently discharged from [facility] in 06/06 was BIBEMS from SN[facility] for Worsening SOB, Nonproductive cough, Chest Pressure and Body swelling x 1 week. #Neuro Hx of Depression -A&Ox3, NAD -No active issues, Continue to monitor -Continue home dose Trazodone, Mirtazapine, Gabapentin, Escitalopram, Aripiprazole #Cardio Hypotensive on admission, Improving Chest Pressure, Improving Volume Overloaded Hx of Diastolic CHF, VTE (On Elliquis) -Trop < 0.02 -BNP 58.92 -EKG: SINUS BRADYCARDIA, VR 57, QTc 432 -Echo: Technically limitied, LV Function is normal -Dr. Browning consulted -Continue Furosemide BID -Continue home dose Sacubitril/Valsartan, Atorvastatin, ASA, Apixaban, Atorvastatin -Monitor urine output, Daily weights, Creatinine #Pulmonary Worsening SOB, Nonproductive cough Hx of COPD (Now Trach'ed x 1 year), Chronic Hypoxic Hypercapnic Respiratory Failure -Likely due to Fluid Overload -CXR: A single AP view the chest reveals little change since 06/02/2018. The soft tissues are excessive. There is a weak inspiration, apical lordotic projection, tracheostomy tube and prominent mediastinum with congestive and infiltrative findings. -Vent Settings 500/14/50%/+5 -Continue home dose Budesonide/Formoterol, Montelukast, Albuterol/Ipratropium -Supplemental O2 to maintain Sats 88-95% #GI -Bowel Regimen via Senna, Miralax, Colace -Continue home dose Pantoprazole -PO as tolerated #Renal -No active issues, continue to monitor #Heme Normocytic, Normochromic anemia -Likely dilutional from fluid overload; No signs of Active bleeding -Continue to monitor #Endo Hx of Hypothyroidism, DM -TSH 3.29 -ISS BGMs ACHS -Continue home dose Levothyroxine #ID -Afebrile, Without elevated WBC Count -UA, Influenza Negative -Blood and Urine Cx pending -Given 1 dose VancLaura packsyn in ED -Ceftriaxone Sodium 2 gm/ (Dextrose) 100 mls @ 200 mls/hr IVPB DAILY #FEN -PO Fluids -Replete Lytes PRN -Sodium controlled diet #PPx -DVT: Home dose Elliquis -GI: Pantoprazole Dispo: Transfer to Med-Surg Visit type - Emergency Visit Emergency Visit: Yes ED Registration Date: 08/25/18 Care time: The patient presented to the Emergency Department on the above date and was hospitalized for further evaluation of their emergent condition. - New Patient This patient is new to me today: Yes Date on this admission: 08/27/18 - Critical Care Critical Care patient: Yes Total Critical Care Time (in minutes): 36 Critical Care Statement: The care of this patient involved high complexity decision making to prevent further life threatening deterioration of the patient 's condition and/or to evaluate & treat vital organ system(s) failure or risk of failure.
[2018-08-27] MEDS: DOCUSATE SODIUM 100 MG CAPSULE (FP) PO SCH (21:46)
[2018-08-27] MEDS: MONTELUKAST NA 10 MG TABLET PO SCH (21:46)
[2018-08-27] MEDS: MIRTAZAPINE 15 MG TABLET (FP) PO SCH (21:46)
[2018-08-27] MEDS: traZODone HCL 100 MG TABLET (FP) PO SCH (21:46)
[2018-08-27] MEDS: ATORVASTATIN CA 20 MG TABLET (FP) PO SCH (21:46)
[2018-08-27] MEDS: SENNOSIDES 8.6MG TABLET (FP) PO SCH (21:47)
[2018-08-27] MEDS: ALBUTEROL SO4 2.5/IPRATROPIUM 0.5 INH SOL 3 ML VIAL.NEB. NEB PRN (22:15)
[2018-08-28] MEDS: GABAPENTIN 400 MG CAPSULE (FP) PO SCH ×3 (06:08→22:38)
[2018-08-28] MEDS: LEVOTHYROXINE NA 25 MCG TABLET (FP) PO SCH (06:08)
[2018-08-28] MEDS: FUROSEMIDE 40 MG/4 ML INJECTABLE VIAL IVPUSH SCH ×2 (06:08→13:21)
[2018-08-28] MEDS ORDERED: PT OWN MED DRAWER 7, Y5N ONE ×2 (06:21→08:58)
[2018-08-28 06:57] LABS: BASO % 0.5 % (0-2.0); EOS % 2.2 % (0-4.5); HEMOGLOBIN 8.8 GM/dL (10.7-15.3); LYMPH % 23.9 % (8-40); MCH 27.6 pg (25.7-33.7); MCHC 32.7 g/dl (32.0-36.0); MEAN CELL VOLUME 84.2 fl (80-96); MEAN PLT VOLUME 8.2 fl (7.5-11.1); MONO % 5.6 % (3.8-10.2); NEUT % 67.8 % (42.8-82.8); PLATELET COUNT 184 K/MM3 (134-434); RDW 14.5 % (11.6-15.6); WHITE BLOOD COUNT 5.9 K/mm3 (4.0-10.0)
[2018-08-28 07:35] LABS: ALK PHOS 84 U/L (45-117); ANION GAP 6 MMOL/L (8-16); BILIRUBIN,TOTAL 0.5 mg/dL (0.2-1); BLOOD UREA NITROGEN 15 mg/dL (7-18); CALCIUM 8.9 mg/dL (8.5-10.1); CHLORIDE 98 mmol/L (98-107); CO2 37 mmol/L (21-32); CREATININE 0.5 mg/dL (0.55-1.3); GLUCOSE,RANDOM 96 mg/dL (74-106); MAGNESIUM 1.9 mg/dL (1.8-2.4); PHOSPHOROUS 5.2 mg/dL (2.5-4.9); SGOT/AST 10 U/L (15-37); SGPT/ALT 19 U/L (13-61); SODIUM 140 mmol/L (136-145); TOT PROT 6.1 g/dl (6.4-8.2)
--- NOTE | 2018-08-28 08:12 | PN ---
Progress Note (short form) - Note Progress Note: PULM/CCM Pt Seen & Examined in the ICU. Vent by night / TC by Day, working well w/ [place] valve, eating, ready for D/c. Active Medications Acetaminophen (Tylenol -) 1,000 mg PO Q6H PRN PRN Reason: PAIN Albuterol/Ipratropium (Duoneb -) 1 amp NEB Q6H PRN PRN Reason: SHORTNESS OF BREATH Apixaban (Eliquis -) 2.5 mg PO BID [facility] Aripiprazole (Abilify) 10 mg PO DAILY [facility] Last Admin: 08/28/18 09:02 Dose: 10 mg Aspirin (Asa -) 81 mg PO DAILY [facility] Atorvastatin Calcium (Lipitor -) 20 mg PO HS [facility] Budesonide/Formoterol Fumarate (Symbicort 160/4.5mcg -) 2 puff IH BID [facility] Clotrimazole (Lotrisone Cream (Small Tube)) 1 applic TP BID [facility] Docusate Sodium (Colace -) 100 mg PO HS [facility] Escitalopram Oxalate (Lexapro -) 20 mg PO DAILY [facility] Furosemide (Lasix Injection -) 40 mg IVPUSH BID@0600,1400 [facility] Gabapentin (Neurontin -) 400 mg PO TID [facility] Ceftriaxone Sodium 2 gm/ (Dextrose) 100 mls @ 200 mls/hr IVPB DAILY [facility]; Protocol Last Admin: 08/28/18 09:02 Dose: 200 mls/hr Lactobacillus Acidophilus (Bacid -) 1 tab PO BID [facility] Levothyroxine Sodium (Synthroid -) 25 mcg PO DAILY@0700 [facility] Mirtazapine (Remeron -) 15 mg PO HS [facility] Montelukast Sodium (Singulair -) 10 mg PO HS [facility] Pantoprazole Sodium (Protonix -) 40 mg PO DAILY [facility] Polyethylene Glycol (Miralax (For Daily Use) -) 17 gm PO DAILY [facility] Sacubitril/Valsartan (Entresto 24 Mg-26 Mg Tablet) 1 tab PO BID [facility] Senna (Senna -) 2 tab PO HS [facility] Trazodone HCl (Desyrel -) 100 mg PO HS [facility] V/S Period Temp Pulse Resp BP Sys/Petersen Pulse Ox Last 24 Hr 98.2 F-99 F 52-70 14-28 94-120/49-99 95-100 Intake & Output 02/06/19 02/07/19 02/08/19 02/09/19 23:59 23:59 23:59 23:59 Intake Total 990 770 500 Output Total 3000 4000 3700 Balance -[id number] -3200 Weight 159.211 kg 180.167 kg 180.076 kg 181.891 kg GEN: Obese middle aged woman, trached, VDRF, Unwell HEENT: PERRL, an-icteric, MMM, Trach PULM: B/L ronchi, diminished in the bases CV: nml S1 S2, RR, unable to appreciate G/M/R ABD: + BS, Obese, S/S, N/D, N/T X4Q EXT: + Edema CBC, BMP 08/28/18 05:30 08/28/18 05:30 Microbiology 08/25/18 15:18 Blood - Peripheral Venous Blood Culture - Preliminary NO GROWTH OBTAINED AFTER 72 HOURS, INCUBATION TO CONTINUE FOR 2 DAYS. 08/25/18 13:00 Blood - Peripheral Venous Blood Culture - Preliminary NO GROWTH OBTAINED AFTER 72 HOURS, INCUBATION TO CONTINUE FOR 2 DAYS. 08/26/18 14:00 Sputum - Endotrachea Suction/Ventilator Gram Stain - Final 08/26/18 14:00 Sputum - Endotrachea Suction/Ventilator Sputum Culture - Preliminary Non Lactose Fermenting Gnb 08/26/18 14:00 Urine For Antigen Detection Legionella Antigen - Final 08/26/18 14:00 Urine For Antigen Detection Streptococcus pneumoniae Antigen (M - Final 08/25/18 15:18 Urine - Urine - Catheterized Urine Culture - Final NO GROWTH OBTAINED CXR 08/25: A single AP view the chest reveals little change since 06/02/2018. The soft tissues are excessive. There is a weak inspiration, apical lordotic projection, tracheostomy tube and prominent mediastinum with congestive and infiltrative findings. Correlation recommended. ASSESSMENT AND PLAN: Chronic Respiratory Failure s/p Tracheostomy Volume Overload/Anasarca COPD Hypothyroidism h/o VTE Bipolar Disorder Depression - inhaled bronchodilators - O2 to keep SpO2 >90% - Nocturnal Vent - TC by Day - [place] as tolerated - Lasix - monitor urine output, creatinine - daily weights - F/u echocardiogram - continue anticoagulation - PO as tolerated - DVT/GI prophylaxis - can monitor on vent floor DGL, [facility]NP[facility] ICU PULM/CCM 4436 Critical Care Total Critical Care Time (in minutes): 38 Critical Care Statement: The care of this patient involved high complexity decision making to prevent further life threatening deterioration of the patient 's condition and/or to evaluate & treat vital organ system(s) failure or risk of failure.
[2018-08-28] MEDS ORDERED: DEXTROSE 5%-WATER 100 ML IVPB ONE (08:58)
[2018-08-28] MEDS: CEFTRIAXONE 2 GM in DEXTROSE 5%-WATER 100 ML IVPB SCH (09:02)
[2018-08-28] MEDS: ASPIRIN 81 MG CHEWABLE TABLETS PO SCH (09:02)
[2018-08-28] MEDS: ARIPiprazole 10 MG TABLET PO SCH (09:02)
[2018-08-28] MEDS: PANTOPRAZOLE 40 MG TABLET (FP) PO SCH (09:02)
[2018-08-28] MEDS: APIXABAN 2.5 MG TABLET PO SCH ×2 (09:02→22:38)
[2018-08-28] MEDS: ESCITALOPRAM OXALATE 20 MG TABLET (FP) PO SCH (09:03)
[2018-08-28] MEDS: LACTOBACILLUS ACIDOPHILUS 1 TABLET PO SCH ×2 (09:03→22:37)
[2018-08-28] MEDS: SACUBITRIL/VALSARTAN 24 MG-26 MG TABLET PO SCH ×2 (09:04→22:39)
[2018-08-28] MEDS: BUDESONIDE/FORMETEROL FUMARATE 160/4.5 mcg INHALER IH SCH ×2 (09:05→22:39)
[2018-08-28] MEDS: CLOTRIMAZOLE/BETAMET DIPROP 15 GM TUBE TP SCH ×2 (09:05→22:40)
[2018-08-28] MEDS: POLYETHYLENE GLYCOL 3350 119 GM BTL PO SCH (09:05)
[2018-08-28] MEDS: ACETAMINOPHEN 500 MG TABLET (FP) PO PRN (09:06)
--- NOTE | 2018-08-28 10:21 | PN ---
Progress Note, Physician - Current Medication List Current Medications: Active Medications Acetaminophen (Tylenol -) 1,000 mg PO Q6H PRN PRN Reason: PAIN Last Admin: 08/28/18 09:06 Dose: 1,000 mg Albuterol/Ipratropium (Duoneb -) 1 amp NEB Q6H PRN PRN Reason: SHORTNESS OF BREATH Last Admin: 08/27/18 22:15 Dose: 1 amp Apixaban (Eliquis -) 2.5 mg PO BID [facility] Last Admin: 08/28/18 09:02 Dose: 2.5 mg Aripiprazole (Abilify) 10 mg PO DAILY [facility] Last Admin: 08/28/18 09:02 Dose: 10 mg Aspirin (Asa -) 81 mg PO DAILY [facility] Last Admin: 08/28/18 09:02 Dose: 81 mg Atorvastatin Calcium (Lipitor -) 20 mg PO HS [facility] Last Admin: 08/27/18 21:46 Dose: 20 mg Budesonide/Formoterol Fumarate (Symbicort 160/4.5mcg -) 2 puff IH BID [facility] Last Admin: 08/28/18 09:05 Dose: 2 puff Clotrimazole (Lotrisone Cream (Small Tube)) 1 applic TP BID [facility] Last Admin: 08/28/18 09:05 Dose: Not Given Docusate Sodium (Colace -) 100 mg PO HS [facility] Last Admin: 08/27/18 21:46 Dose: 100 mg Escitalopram Oxalate (Lexapro -) 20 mg PO DAILY [facility] Last Admin: 08/28/18 09:03 Dose: 20 mg Furosemide (Lasix Injection -) 40 mg IVPUSH BID@0600,1400 [facility] Last Admin: 08/28/18 06:08 Dose: 40 mg Gabapentin (Neurontin -) 400 mg PO TID [facility] Last Admin: 08/28/18 06:08 Dose: 400 mg Ceftriaxone Sodium 2 gm/ (Dextrose) 100 mls @ 200 mls/hr IVPB DAILY [facility]; Protocol Last Admin: 08/28/18 09:02 Dose: 200 mls/hr Lactobacillus Acidophilus (Bacid -) 1 tab PO BID [facility] Last Admin: 08/28/18 09:03 Dose: 1 tab Levothyroxine Sodium (Synthroid -) 25 mcg PO DAILY@0700 [facility] Last Admin: 08/28/18 06:08 Dose: 25 mcg Mirtazapine (Remeron -) 15 mg PO [facility] Last Admin: 08/27/18 21:46 Dose: 15 mg Montelukast Sodium (Singulair -) 10 mg PO [facility] Last Admin: 08/27/18 21:46 Dose: 10 mg Pantoprazole Sodium (Protonix -) 40 mg PO DAILY [facility] Last Admin: 08/28/18 09:02 Dose: 40 mg Polyethylene Glycol (Miralax (For Daily Use) -) 17 gm PO DAILY [facility] Last Admin: 08/28/18 09:05 Dose: Not Given Sacubitril/Valsartan (Entresto 24 Mg-26 Mg Tablet) 1 tab PO BID [facility] Last Admin: 08/28/18 09:04 Dose: 1 tab Senna (Senna -) 2 tab PO [facility] Last Admin: 08/27/18 21:47 Dose: 2 tab Trazodone HCl (Desyrel -) 100 mg PO [facility] Last Admin: 08/27/18 21:46 Dose: 100 mg - Objective Vital Signs: Vital Signs Temperature 98.3 F 08/28/18 05:48 Pulse Rate 52 L 08/28/18 08:33 Respiratory Rate 23 H 08/28/18 08:33 Blood Pressure 107/59 L 08/28/18 07:00 O2 Sat by Pulse Oximetry (%) 100 08/28/18 08:33 Eyes: Yes: WNL, Conjunctiva Clear, EOM Intact HENT: Yes: WNL, Atraumatic, Normocephalic Neck: Yes: WNL, Supple, Trachea Midline Cardiovascular: Yes: WNL, Regular Rate and Rhythm Respiratory: Yes: Diminished, Intubated, Mechanically Ventilated Gastrointestinal: Yes: WNL, Normal Bowel Sounds Genitourinary: Yes: WNL Musculoskeletal: Yes: WNL Extremities: Yes: WNL Edema: Yes Integumentary: Yes: WNL Neurological: Yes: WNL, Alert, Oriented ...Motor Strength: WNL Psychiatric: Yes: WNL Labs: CBC, BMP 08/28/18 05:30 08/28/18 05:30 INR, PTT INR 1.23 (0.83-1.09) H 08/25/18 13:30 Assessment/Plan sessment/Plan IMP: Morbid obesity Prior VTE on AC Worsened Dyspnea: CHF vs PNA (decompensated diastolic) Anasarca REC: Vent support Cultures/Abx/ supplimental O2 as per ICU Echo TDS, report reviewed; grossly normal LV fx Diurese as BP allows. Cont AC Coverage for dr. Browning cc time 36 min
--- NOTE | 2018-08-28 10:33 | PN ---
Progress Note (short form) - Note Progress Note: feeling better will be trying trach collar today Tolerating vent she ate today Vital Signs - 24 hr 08/27/18 08/27/18 08/27/18 10:58 11:47 12:00 Temperature Pulse Rate 56 L Respiratory 21 H 22 H 18 Rate Blood Pressure 110/65 O2 Sat by Pulse Oximetry (%) 08/27/18 08/27/18 08/27/18 14:00 14:13 15:39 Temperature 98.6 F Pulse Rate 68 Respiratory 16 23 H 19 Rate Blood Pressure 105/52 L O2 Sat by Pulse Oximetry (%) 08/27/18 08/27/18 08/27/18 16:00 18:00 18:05 Temperature 99 F Pulse Rate 55 L 58 L Respiratory 17 18 Rate Blood Pressure 109/66 O2 Sat by Pulse Oximetry (%) 08/27/18 08/27/18 08/27/18 20:00 20:13 20:14 Temperature Pulse Rate 59 L Respiratory 15 18 18 Rate Blood Pressure 118/50 L O2 Sat by Pulse 99 99 Oximetry (%) 08/27/18 08/27/18 08/28/18 21:00 22:00 00:00 Temperature Pulse Rate 60 58 L Respiratory 20 14 22 H Rate Blood Pressure 105/59 L O2 Sat by Pulse 99 Oximetry (%) 08/28/18 08/28/18 08/28/18 02:00 02:55 05:30 Temperature Pulse Rate 58 L Respiratory 24 H 26 H 25 H Rate Blood Pressure 119/99 O2 Sat by Pulse Oximetry (%) 08/28/18 08/28/18 08/28/18 05:48 07:00 07:01 Temperature 98.3 F Pulse Rate 56 L 55 L Respiratory 15 14 26 H Rate Blood Pressure 109/68 107/59 L O2 Sat by Pulse 99 Oximetry (%) 08/28/18 08:33 Temperature Pulse Rate 52 L Respiratory 23 H Rate Blood Pressure O2 Sat by Pulse 100 Oximetry (%) Current Medications Generic Name Dose Route Start Last Admin Trade Name Freq PRN Reason Stop Dose Admin Acetaminophen 1,000 mg 08/25/18 18:55 08/28/18 09:06 Tylenol - PO 1,000 mg Q6H PRN Administration PAIN Albuterol/Ipratropium 1 amp 08/25/18 18:54 08/27/18 22:15 Duoneb - NEB 1 amp Q6H PRN Administration SHORTNESS OF BREATH Apixaban 2.5 mg 08/25/18 22:00 08/28/18 09:02 Eliquis - PO 2.5 mg BID NOELLE Administration Aripiprazole 10 mg 08/28/18 10:00 08/28/18 09:02 Abilify PO 10 mg DAILY NOELLE Administration Aspirin 81 mg 08/26/18 10:00 08/28/18 09:02 Asa - PO 81 mg DAILY NOELLE Administration Atorvastatin Calcium 20 mg 08/25/18 22:00 08/27/18 21:46 Lipitor - PO 20 mg HS NOELLE Administration Budesonide/Formoterol Fumarate 2 puff 08/25/18 22:00 08/28/18 09:05 Symbicort 160/4.5mcg - IH 2 puff BID NOELLE Administration Clotrimazole 1 applic 08/25/18 22:00 08/28/18 09:05 Lotrisone Cream (Small Tube) TP Not Given BID NOELLE Docusate Sodium 100 mg 08/25/18 22:00 08/27/18 21:46 Colace - PO 100 mg HS NOELLE Administration Escitalopram Oxalate 20 mg 08/26/18 10:00 08/28/18 09:03 Lexapro - PO 20 mg DAILY NOELLE Administration Furosemide 40 mg 08/27/18 06:00 08/28/18 06:08 Lasix Injection - IVPUSH 40 mg BID@0600,1400 NOELLE Administration Gabapentin 400 mg 08/25/18 19:58 08/28/18 06:08 Neurontin - PO 400 mg TID NOELLE Administration Ceftriaxone Sodium 2 gm/ 100 mls @ 200 mls/hr 08/26/18 13:55 08/28/18 09:02 Dextrose IVPB 200 mls/hr DAILY NOELLE Administration Protocol Lactobacillus Acidophilus 1 tab 08/25/18 22:00 08/28/18 09:03 Bacid - PO 1 tab BID NOELLE Administration Levothyroxine Sodium 25 mcg 08/26/18 07:00 08/28/18 06:08 Synthroid - PO 25 mcg DAILY@0700 NOELEL Administration Mirtazapine 15 mg 08/25/18 22:00 08/27/18 21:46 Remeron - PO 15 mg HS NOELLE Administration Montelukast Sodium 10 mg 08/25/18 22:00 02/08/19 21:46 Singulair - PO 10 mg HS NOELLE Administration Pantoprazole Sodium 40 mg 08/26/18 10:00 08/28/18 09:02 Protonix - PO 40 mg DAILY NOELLE Administration Polyethylene Glycol 17 gm 08/26/18 10:00 08/28/18 09:05 Miralax (For Daily Use) - PO Not Given DAILY NOELLE Sacubitril/Valsartan 1 tab 08/25/18 22:00 08/28/18 09:04 Entresto 24 Mg-26 Mg Tablet PO 1 tab BID NOELLE Administration Senna 2 tab 08/25/18 22:00 08/27/18 21:47 Senna - PO 2 tab HS NOELLE Administration Trazodone HCl 100 mg 08/26/18 22:00 08/27/18 21:46 Desyrel - PO 100 mg HS NOELLE Administration Laboratory Results - last 24 hr 08/27/18 08/27/18 08/28/18 12:03 15:41 05:30 WBC 5.9 RBC 3.20 L Hgb 8.8 L Hct 27.0 L MCV 84.2 MCH 27.6 MCHC 32.7 RDW 14.5 Plt Count 184 MPV 8.2 Absolute Neuts (auto) 4.0 Neutrophils % 67.8 Lymphocytes % 23.9 Monocytes % 5.6 Eosinophils % 2.2 Basophils % 0.5 Nucleated RBC % 0 Sodium Potassium Chloride Carbon Dioxide Anion Gap BUN Creatinine Creat Clearance w eGFR POC Glucometer 164 101 Random Glucose Calcium Phosphorus Magnesium Total Bilirubin AST ALT Alkaline Phosphatase Total Protein Albumin 08/28/18 05:30 WBC RBC Hgb Hct MCV MCH MCHC RDW Plt Count MPV Absolute Neuts (auto) Neutrophils % Lymphocytes % Monocytes % Eosinophils % Basophils % Nucleated RBC % Sodium 140 Potassium 4.0 Chloride 98 Carbon Dioxide 37 H Anion Gap 6 L BUN 15 Creatinine 0.5 L Creat Clearance w eGFR > 60 POC Glucometer Random Glucose 96 Calcium 8.9 Phosphorus 5.2 H Magnesium 1.9 Total Bilirubin 0.5 AST 10 L ALT 19 Alkaline Phosphatase 84 Total Protein 6.1 L Albumin 3.0 L trach- vent S1 S2 RRR Obese anasarca lungs ronchi+ abd- soft, obese, NT edema+ PLAN Diurese as BP permits on iv ceftriaxone blood/urine cultures negative sputum culture pending legionella negative trach collar as tolerated Problem List - Problems (1) Acute on chronic respiratory failure with hypoxia and hypercapnia Code(s): J96.21 - ACUTE AND CHRONIC RESPIRATORY FAILURE WITH HYPOXIA; J96.22 - ACUTE AND CHRONIC RESPIRATORY FAILURE WITH HYPERCAPNIA (2) CHF (congestive heart failure) Code(s): I50.9 - HEART FAILURE, UNSPECIFIED (3) Diabetes Code(s): E11.9 - TYPE 2 DIABETES MELLITUS WITHOUT COMPLICATIONS (4) Morbid obesity Code(s): E66.01 - MORBID (SEVERE) OBESITY DUE TO EXCESS CALORIES
--- NOTE | 2018-08-28 10:43 | PN ---
Progress Note, Physician History of Present Illness: AWAKE, ALERT ON VENTILATOR OCCASIONAL COUGH STILL WITH TRACHEAL SECRETIONS NO C/O CHEST PAIN AFEBRILE WBC WNL C/S PENDING LEGIONELLA/ PNEUMONCOCCAL AG (-) - Current Medication List Current Medications: Active Medications Acetaminophen (Tylenol -) 1,000 mg PO Q6H PRN PRN Reason: PAIN Last Admin: 08/28/18 09:06 Dose: 1,000 mg Albuterol/Ipratropium (Duoneb -) 1 amp NEB Q6H PRN PRN Reason: SHORTNESS OF BREATH Last Admin: 08/27/18 22:15 Dose: 1 amp Apixaban (Eliquis -) 2.5 mg PO BID [facility] Last Admin: 08/28/18 09:02 Dose: 2.5 mg Aripiprazole (Abilify) 10 mg PO DAILY [facility] Last Admin: 08/28/18 09:02 Dose: 10 mg Aspirin (Asa -) 81 mg PO DAILY [facility] Last Admin: 08/28/18 09:02 Dose: 81 mg Atorvastatin Calcium (Lipitor -) 20 mg PO HS [facility] Last Admin: 08/27/18 21:46 Dose: 20 mg Budesonide/Formoterol Fumarate (Symbicort 160/4.5mcg -) 2 puff IH BID [facility] Last Admin: 08/28/18 09:05 Dose: 2 puff Clotrimazole (Lotrisone Cream (Small Tube)) 1 applic TP BID [facility] Last Admin: 08/28/18 09:05 Dose: Not Given Docusate Sodium (Colace -) 100 mg PO HS [facility] Last Admin: 08/27/18 21:46 Dose: 100 mg Escitalopram Oxalate (Lexapro -) 20 mg PO DAILY [facility] Last Admin: 08/28/18 09:03 Dose: 20 mg Furosemide (Lasix Injection -) 40 mg IVPUSH BID@0600,1400 [facility] Last Admin: 08/28/18 06:08 Dose: 40 mg Gabapentin (Neurontin -) 400 mg PO TID [facility] Last Admin: 08/28/18 06:08 Dose: 400 mg Ceftriaxone Sodium 2 gm/ (Dextrose) 100 mls @ 200 mls/hr IVPB DAILY [facility]; Protocol Last Admin: 08/28/18 09:02 Dose: 200 mls/hr Lactobacillus Acidophilus (Bacid -) 1 tab PO BID [facility] Last Admin: 02/09/19 09:03 Dose: 1 tab Levothyroxine Sodium (Synthroid -) 25 mcg PO DAILY@0700 [facility] Last Admin: 08/28/18 06:08 Dose: 25 mcg Mirtazapine (Remeron -) 15 mg PO [facility] Last Admin: 08/27/18 21:46 Dose: 15 mg Montelukast Sodium (Singulair -) 10 mg PO [facility] Last Admin: 08/27/18 21:46 Dose: 10 mg Pantoprazole Sodium (Protonix -) 40 mg PO DAILY [facility] Last Admin: 08/28/18 09:02 Dose: 40 mg Polyethylene Glycol (Miralax (For Daily Use) -) 17 gm PO DAILY [facility] Last Admin: 08/28/18 09:05 Dose: Not Given Sacubitril/Valsartan (Entresto 24 Mg-26 Mg Tablet) 1 tab PO BID [facility] Last Admin: 08/28/18 09:04 Dose: 1 tab Senna (Senna -) 2 tab PO [facility] Last Admin: 08/27/18 21:47 Dose: 2 tab Trazodone HCl (Desyrel -) 100 mg PO [facility] Last Admin: 08/27/18 21:46 Dose: 100 mg - Objective Vital Signs: Vital Signs Temperature 98.3 F 08/28/18 05:48 Pulse Rate 52 L 08/28/18 08:33 Respiratory Rate 23 H 08/28/18 08:33 Blood Pressure 107/59 L 08/28/18 07:00 O2 Sat by Pulse Oximetry (%) 100 08/28/18 08:33 Constitutional: Yes: No Distress, Obese Eyes: Yes: Conjunctiva Clear Cardiovascular: Yes: Regular Rate and Rhythm, S1, S2 Respiratory: Yes: Diminished Gastrointestinal: Yes: Normal Bowel Sounds, Soft, Abdomen, Obese Edema: Yes Edema: LUE: 3+, RUE: 3+, LLE: 3+, RLE: 3+ Labs: CBC, BMP 08/28/18 05:30 08/28/18 05:30 INR, PTT INR 1.23 (0.83-1.09) H 08/25/18 13:30 Assessment/Plan HYPERCAPNEIC RESP FAILURE COPD EXACERBATION ? HCAP ANASARCA AWAIT SPUTUM C/S CONTINUE CEFTRIAXONE
[2018-08-28] MEDS ORDERED: ACETAMINOPHEN 500 MG TABLET (FP) PO PRN (16:04)
[2018-08-28] MEDS ORDERED: ALBUTEROL SO4 2.5/IPRATROPIUM 0.5 INH SOL 3 ML VIAL.NEB. NEB PRN (16:04)
[2018-08-28] MEDS ORDERED: traZODone HCL 50 MG TABLET (FP) ONE (22:21)
[2018-08-28] MEDS: DOCUSATE SODIUM 100 MG CAPSULE (FP) PO SCH (22:37)
[2018-08-28] MEDS: SENNOSIDES 8.6MG TABLET (FP) PO SCH (22:38)
[2018-08-28] MEDS: ATORVASTATIN CA 20 MG TABLET (FP) PO SCH (22:38)
[2018-08-28] MEDS: MIRTAZAPINE 15 MG TABLET (FP) PO SCH (22:38)
[2018-08-28] MEDS: traZODone HCL 100 MG TABLET (FP) PO SCH (22:40)
[2018-08-28] MEDS: MONTELUKAST NA 10 MG TABLET PO SCH (22:41)
[2018-08-29] MEDS: FUROSEMIDE 40 MG/4 ML INJECTABLE VIAL IVPUSH SCH ×2 (06:07→14:39)
[2018-08-29] MEDS: GABAPENTIN 400 MG CAPSULE (FP) PO SCH ×3 (06:08→22:26)
[2018-08-29] MEDS: LEVOTHYROXINE NA 25 MCG TABLET (FP) PO SCH (06:08)
--- NOTE | 2018-08-29 09:52 | PN ---
Progress Note, Physician - Current Medication List Current Medications: Active Medications Acetaminophen (Tylenol -) 1,000 mg PO Q6H PRN PRN Reason: PAIN Albuterol/Ipratropium (Duoneb -) 1 amp NEB Q6H PRN PRN Reason: SHORTNESS OF BREATH Last Admin: 08/28/18 20:12 Dose: 1 amp Apixaban (Eliquis -) 2.5 mg PO BID [facility] Last Admin: 08/28/18 22:38 Dose: 2.5 mg Aripiprazole (Abilify) 10 mg PO DAILY [facility] Last Admin: 08/28/18 09:02 Dose: 10 mg Aspirin (Asa -) 81 mg PO DAILY [facility] Atorvastatin Calcium (Lipitor -) 20 mg PO [facility] Last Admin: 08/28/18 22:38 Dose: 20 mg Budesonide/Formoterol Fumarate (Symbicort 160/4.5mcg -) 2 puff IH BID [facility] Last Admin: 08/28/18 22:39 Dose: 2 inhaler Clotrimazole (Lotrisone Cream (Small Tube)) 1 applic TP BID [facility] Last Admin: 08/28/18 22:40 Dose: 1 applic Docusate Sodium (Colace -) 100 mg PO [facility] Last Admin: 08/28/18 22:37 Dose: 100 mg Escitalopram Oxalate (Lexapro -) 20 mg PO DAILY [facility] Furosemide (Lasix Injection -) 40 mg IVPUSH BID@0600,1400 [facility] Last Admin: 08/29/18 06:07 Dose: 40 mg Gabapentin (Neurontin -) 400 mg PO TID [facility] Last Admin: 08/29/18 06:08 Dose: 400 mg Ceftriaxone Sodium 2 gm/ (Dextrose) 100 mls @ 200 mls/hr IVPB DAILY [facility]; Protocol Last Admin: 08/28/18 09:02 Dose: 200 mls/hr Lactobacillus Acidophilus (Bacid -) 1 tab PO BID [facility] Last Admin: 08/28/18 22:37 Dose: 1 tab Levothyroxine Sodium (Synthroid -) 25 mcg PO DAILY@0700 [facility] Last Admin: 08/29/18 06:08 Dose: 25 mcg Mirtazapine (Remeron -) 15 mg PO [facility] Last Admin: 08/28/18 22:38 Dose: 15 mg Montelukast Sodium (Singulair -) 10 mg PO [facility] Last Admin: 08/28/18 22:41 Dose: 10 mg Pantoprazole Sodium (Protonix -) 40 mg PO DAILY [facility] Polyethylene Glycol (Miralax (For Daily Use) -) 17 gm PO DAILY [facility] Sacubitril/Valsartan (Entresto 24 Mg-26 Mg Tablet) 1 tab PO BID [facility] Last Admin: 08/28/18 22:39 Dose: 1 tab Senna (Senna -) 2 tab PO [facility] Last Admin: 08/28/18 22:38 Dose: 2 tab Trazodone HCl (Desyrel -) 100 mg PO [facility] Last Admin: 08/28/18 22:40 Dose: 100 mg - Objective Vital Signs: Vital Signs Temperature 98.3 F 08/29/18 06:00 Pulse Rate 66 08/29/18 07:53 Respiratory Rate 18 08/29/18 06:00 Blood Pressure 106/60 08/29/18 06:00 O2 Sat by Pulse Oximetry (%) 93 L 08/29/18 07:54 Eyes: Yes: WNL, Conjunctiva Clear, EOM Intact HENT: Yes: WNL, Atraumatic, Normocephalic Neck: Yes: WNL, Supple, Trachea Midline Cardiovascular: Yes: WNL, Regular Rate and Rhythm Respiratory: Yes: Poor Air Entry, Other (tracheostomy) Gastrointestinal: Yes: WNL, Normal Bowel Sounds Genitourinary: Yes: WNL Musculoskeletal: Yes: WNL Extremities: Yes: WNL Edema: Yes Integumentary: Yes: WNL Neurological: Yes: WNL, Alert, Oriented ...Motor Strength: WNL Psychiatric: Yes: WNL Labs: CBC, BMP 08/28/18 05:30 08/28/18 05:30 INR, PTT INR 1.23 (0.83-1.09) H 08/25/18 13:30 Assessment/Plan sessment/Plan IMP: Morbid obesity Prior VTE on AC Worsened Dyspnea: CHF vs PNA (decompensated diastolic) Anasarca REC: Vent support Cultures/Abx/ supplimental O2 as per ICU Echo TDS, report reviewed; grossly normal LV fx Diurese as BP allows. Cont AC Coverage for dr. Browning
--- NOTE | 2018-08-29 10:09 | PN ---
Progress Note (short form) - Note Progress Note: c/o left knee pain and swelling Vital Signs - 24 hr 08/28/18 08/28/18 08/28/18 17:09 18:13 18:40 Temperature 98.4 F Pulse Rate 68 65 64 Respiratory 24 H 18 Rate Blood Pressure 117/68 O2 Sat by Pulse 95 96 Oximetry (%) 08/28/18 08/28/18 08/29/18 21:00 22:00 01:40 Temperature Pulse Rate 51 L Respiratory 22 H 18 Rate Blood Pressure 106/71 O2 Sat by Pulse 97 Oximetry (%) 08/29/18 08/29/18 08/29/18 01:44 06:00 07:53 Temperature 98.3 F Pulse Rate 54 L 66 Respiratory 18 18 Rate Blood Pressure 106/60 O2 Sat by Pulse 93 L Oximetry (%) 08/29/18 08/29/18 08/29/18 07:54 09:00 11:31 Temperature Pulse Rate 63 Respiratory Rate Blood Pressure O2 Sat by Pulse 93 L 94 L 94 L Oximetry (%) 08/29/18 14:41 Temperature 98.1 F Pulse Rate 74 Respiratory 18 Rate Blood Pressure 133/71 O2 Sat by Pulse Oximetry (%) Current Medications Generic Name Dose Route Start Last Admin Trade Name Freq PRN Reason Stop Dose Admin Acetaminophen 1,000 mg 08/28/18 16:04 Tylenol - PO Q6H PRN PAIN Albuterol/Ipratropium 1 amp 08/28/18 16:04 08/28/18 20:12 Duoneb - NEB 1 amp Q6H PRN Administration SHORTNESS OF BREATH Apixaban 2.5 mg 08/28/18 22:00 08/29/18 10:49 Eliquis - PO 2.5 mg BID NOELLE Administration Aripiprazole 10 mg 08/28/18 10:00 08/29/18 10:50 Abilify PO 10 mg DAILY NOELLE Administration Aspirin 81 mg 08/29/18 10:00 08/29/18 10:49 Asa - PO 81 mg DAILY NOELLE Administration Atorvastatin Calcium 20 mg 08/28/18 22:00 08/28/18 22:38 Lipitor - PO 20 mg HS NOELLE Administration Budesonide/Formoterol Fumarate 2 puff 08/28/18 22:00 08/29/18 10:57 Symbicort 160/4.5mcg - IH 2 inhaler BID NOELLE Administration Clotrimazole 1 applic 08/28/18 22:00 08/29/18 10:51 Lotrisone Cream (Small Tube) TP 1 applic BID NOELLE Administration Docusate Sodium 100 mg 08/28/18 22:00 08/28/18 22:37 Colace - PO 100 mg HS NOELLE Administration Escitalopram Oxalate 20 mg 08/29/18 10:00 08/29/18 10:49 Lexapro - PO 20 mg DAILY NOELLE Administration Furosemide 40 mg 08/29/18 06:00 08/29/18 14:39 Lasix Injection - IVPUSH 40 mg BID@0600,1400 NOELLE Administration Gabapentin 400 mg 08/28/18 22:00 08/29/18 14:30 Neurontin - PO 400 mg TID NOELLE Administration Ceftriaxone Sodium 2 gm/ 100 mls @ 200 mls/hr 08/26/18 13:55 08/29/18 10:49 Dextrose IVPB 200 mls/hr DAILY NOELLE Administration Protocol Lactobacillus Acidophilus 1 tab 08/28/18 22:00 08/29/18 10:49 Bacid - PO 1 tab BID NOELLE Administration Levothyroxine Sodium 25 mcg 08/29/18 07:00 08/29/18 06:08 Synthroid - PO 25 mcg DAILY@0700 NOELLE Administration Mirtazapine 15 mg 08/28/18 22:00 08/28/18 22:38 Remeron - PO 15 mg HS NOELLE Administration Montelukast Sodium 10 mg 08/28/18 22:00 08/28/18 22:41 Singulair - PO 10 mg HS NOELLE Administration Pantoprazole Sodium 40 mg 08/29/18 10:00 08/29/18 10:49 Protonix - PO 40 mg DAILY NOELLE Administration Polyethylene Glycol 17 gm 08/29/18 10:00 08/29/18 10:51 Miralax (For Daily Use) - PO Not Given DAILY NOELLE Sacubitril/Valsartan 1 tab 08/28/18 22:00 08/29/18 10:50 Entresto 24 Mg-26 Mg Tablet PO 1 tab BID NOELLE Administration Senna 2 tab 08/28/18 22:00 08/28/18 22:38 Senna - PO 2 tab HS NOELLE Administration Trazodone HCl 100 mg 08/28/18 22:00 08/28/18 22:40 Desyrel - PO 100 mg HS NOELLE Administration Laboratory Results - last 24 hr 08/28/18 08/29/18 05:30 13:00 ESR 74 H Sodium 140 Potassium 4.0 Chloride 98 Carbon Dioxide 37 H Anion Gap 6 L BUN 15 Creatinine 0.5 L Creat Clearance w eGFR > 60 Random Glucose 96 Calcium 8.9 Phosphorus 5.2 H Magnesium 1.9 Total Bilirubin 0.5 AST 10 L ALT 19 Alkaline Phosphatase 84 Total Protein 6.1 L Albumin 3.0 L trach-trach collar S1 S2 RRR Obese anasarca lungs ronchi+ abd- soft, obese, NT edema+ elft knee tender and warm PLAN check uric acid, esr- r/o gout sono legs to r/o DVT Diurese as BP permits, renal function good so far on iv ceftriaxone blood/urine cultures negative legionella negative trach collar as tolerated Problem List - Problems (1) Acute on chronic respiratory failure with hypoxia and hypercapnia Code(s): J96.21 - ACUTE AND CHRONIC RESPIRATORY FAILURE WITH HYPOXIA; J96.22 - ACUTE AND CHRONIC RESPIRATORY FAILURE WITH HYPERCAPNIA (2) CHF (congestive heart failure) Code(s): I50.9 - HEART FAILURE, UNSPECIFIED (3) Diabetes Code(s): E11.9 - TYPE 2 DIABETES MELLITUS WITHOUT COMPLICATIONS (4) Morbid obesity Code(s): E66.01 - MORBID (SEVERE) OBESITY DUE TO EXCESS CALORIES
[2018-08-29] MEDS ORDERED: PT OWN MED DRAWER 7, Y5N ONE (10:45)
[2018-08-29] MEDS ORDERED: DEXTROSE 5%-WATER 100 ML IVPB ONE (10:46)
[2018-08-29] MEDS: ESCITALOPRAM OXALATE 20 MG TABLET (FP) PO SCH (10:49)
[2018-08-29] MEDS: ASPIRIN 81 MG CHEWABLE TABLETS PO SCH (10:49)
[2018-08-29] MEDS: PANTOPRAZOLE 40 MG TABLET (FP) PO SCH (10:49)
[2018-08-29] MEDS: LACTOBACILLUS ACIDOPHILUS 1 TABLET PO SCH ×2 (10:49→22:25)
[2018-08-29] MEDS: APIXABAN 2.5 MG TABLET PO SCH ×2 (10:49→22:27)
[2018-08-29] MEDS: CEFTRIAXONE 2 GM in DEXTROSE 5%-WATER 100 ML IVPB SCH (10:49)
[2018-08-29] MEDS: ARIPiprazole 10 MG TABLET PO SCH (10:50)
[2018-08-29] MEDS: SACUBITRIL/VALSARTAN 24 MG-26 MG TABLET PO SCH ×2 (10:50→22:27)
[2018-08-29] MEDS: CLOTRIMAZOLE/BETAMET DIPROP 15 GM TUBE TP SCH ×2 (10:51→22:27)
[2018-08-29] MEDS: POLYETHYLENE GLYCOL 3350 119 GM BTL PO SCH (10:51)
[2018-08-29] MEDS: BUDESONIDE/FORMETEROL FUMARATE 160/4.5 mcg INHALER IH SCH ×2 (10:57→22:28)
--- NOTE | 2018-08-29 13:42 | PN ---
Progress Note, Physician History of Present Illness: PULMONARY ALERT,COMFORTABLE,-RESP DISTRESS ON TRACH COLLAR. PT C/O RLE DISCOMFORT - Current Medication List Current Medications: Active Medications Acetaminophen (Tylenol -) 1,000 mg PO Q6H PRN PRN Reason: PAIN Albuterol/Ipratropium (Duoneb -) 1 amp NEB Q6H PRN PRN Reason: SHORTNESS OF BREATH Last Admin: 08/28/18 20:12 Dose: 1 amp Apixaban (Eliquis -) 2.5 mg PO BID [facility] Last Admin: 08/29/18 10:49 Dose: 2.5 mg Aripiprazole (Abilify) 10 mg PO DAILY [facility] Last Admin: 08/29/18 10:50 Dose: 10 mg Aspirin (Asa -) 81 mg PO DAILY [facility] Last Admin: 08/29/18 10:49 Dose: 81 mg Atorvastatin Calcium (Lipitor -) 20 mg PO HS [facility] Last Admin: 08/28/18 22:38 Dose: 20 mg Budesonide/Formoterol Fumarate (Symbicort 160/4.5mcg -) 2 puff IH BID [facility] Last Admin: 08/29/18 10:57 Dose: 2 inhaler Clotrimazole (Lotrisone Cream (Small Tube)) 1 applic TP BID [facility] Last Admin: 08/29/18 10:51 Dose: 1 applic Docusate Sodium (Colace -) 100 mg PO HS [facility] Last Admin: 08/28/18 22:37 Dose: 100 mg Escitalopram Oxalate (Lexapro -) 20 mg PO DAILY [facility] Last Admin: 08/29/18 10:49 Dose: 20 mg Furosemide (Lasix Injection -) 40 mg IVPUSH BID@0600,1400 [facility] Last Admin: 08/29/18 06:07 Dose: 40 mg Gabapentin (Neurontin -) 400 mg PO TID [facility] Last Admin: 08/29/18 06:08 Dose: 400 mg Ceftriaxone Sodium 2 gm/ (Dextrose) 100 mls @ 200 mls/hr IVPB DAILY [facility]; Protocol Last Admin: 08/29/18 10:49 Dose: 200 mls/hr Lactobacillus Acidophilus (Bacid -) 1 tab PO BID [facility] Last Admin: 08/29/18 10:49 Dose: 1 tab Levothyroxine Sodium (Synthroid -) 25 mcg PO DAILY@0700 [facility] Last Admin: 08/29/18 06:08 Dose: 25 mcg Mirtazapine (Remeron -) 15 mg PO [facility] Last Admin: 08/28/18 22:38 Dose: 15 mg Montelukast Sodium (Singulair -) 10 mg PO [facility] Last Admin: 08/28/18 22:41 Dose: 10 mg Pantoprazole Sodium (Protonix -) 40 mg PO DAILY [facility] Last Admin: 08/29/18 10:49 Dose: 40 mg Polyethylene Glycol (Miralax (For Daily Use) -) 17 gm PO DAILY [facility] Last Admin: 08/29/18 10:51 Dose: Not Given Sacubitril/Valsartan (Entresto 24 Mg-26 Mg Tablet) 1 tab PO BID [facility] Last Admin: 08/29/18 10:50 Dose: 1 tab Senna (Senna -) 2 tab PO [facility] Last Admin: 08/28/18 22:38 Dose: 2 tab Trazodone HCl (Desyrel -) 100 mg PO [facility] Last Admin: 08/28/18 22:40 Dose: 100 mg - Objective Vital Signs: Vital Signs Temperature 98.3 F 08/29/18 06:00 Pulse Rate 63 08/29/18 11:31 Respiratory Rate 18 08/29/18 06:00 Blood Pressure 106/60 08/29/18 06:00 O2 Sat by Pulse Oximetry (%) 94 L 08/29/18 11:31 Constitutional: Yes: Well Nourished, Calm, Obese Eyes: Yes: WNL HENT: Yes: WNL Neck: Yes: Supple (TRACH) Cardiovascular: Yes: Regular Rate and Rhythm, S1, S2 Respiratory: Yes: Diminished Gastrointestinal: Yes: Normal Bowel Sounds, Soft Extremities: Yes: WNL, Other (SWELLING RLE) Edema: Yes (SIGNIFICANT RLE EDEMA) Labs: CBC, BMP Problem List - Problems (1) COPD exacerbation Code(s): J44.1 - CHRONIC OBSTRUCTIVE PULMONARY DISEASE W (ACUTE) EXACERBATION (2) Acute on chronic respiratory failure with hypoxia and hypercapnia Code(s): J96.21 - ACUTE AND CHRONIC RESPIRATORY FAILURE WITH HYPOXIA; J96.22 - ACUTE AND CHRONIC RESPIRATORY FAILURE WITH HYPERCAPNIA (3) Bipolar 1 disorder Code(s): F31.9 - BIPOLAR DISORDER, UNSPECIFIED (4) CHF (congestive heart failure) Code(s): I50.9 - HEART FAILURE, UNSPECIFIED (5) Depression Code(s): F32.9 - MAJOR DEPRESSIVE DISORDER, SINGLE EPISODE, UNSPECIFIED (6) Diabetes Code(s): E11.9 - TYPE 2 DIABETES MELLITUS WITHOUT COMPLICATIONS (7) Morbid (severe) obesity due to excess calories Code(s): E66.01 - MORBID (SEVERE) OBESITY DUE TO EXCESS CALORIES (8) Tracheostomy dependence Code(s): Z93.0 - TRACHEOSTOMY STATUS Assessment/Plan ASSESSMENT AND PLAN: Chronic Respiratory Failure s/p Tracheostomy Volume Overload/Anasarca COPD Hypothyroidism h/o VTE Bipolar Disorder Depression - lasix - monitor urine output, creatinine - daily weights - continue anticoagulation - inhaled bronchodilators - O2 to keep SpO2 >90% - trach collar during day, vented at night - PO as tolerated - DVT/GI prophylaxis - duplex lower ext DR STEELE
[2018-08-29] MEDS ORDERED: traZODone HCL 50 MG TABLET (FP) ONE (21:59)
[2018-08-29] MEDS: traZODone HCL 100 MG TABLET (FP) PO SCH (22:25)
[2018-08-29] MEDS: DOCUSATE SODIUM 100 MG CAPSULE (FP) PO SCH (22:25)
[2018-08-29] MEDS: SENNOSIDES 8.6MG TABLET (FP) PO SCH (22:26)
[2018-08-29] MEDS: MIRTAZAPINE 15 MG TABLET (FP) PO SCH (22:26)
[2018-08-29] MEDS: MONTELUKAST NA 10 MG TABLET PO SCH (22:26)
[2018-08-29] MEDS: ATORVASTATIN CA 20 MG TABLET (FP) PO SCH (22:26)
[2018-08-30 01:44] LABS: URIC ACID 6.8 mg/dL (2.6-7.2)
[2018-08-30] MEDS: LEVOTHYROXINE NA 25 MCG TABLET (FP) PO SCH (06:13)
[2018-08-30] MEDS: FUROSEMIDE 40 MG/4 ML INJECTABLE VIAL IVPUSH SCH ×2 (06:13→15:21)
[2018-08-30] MEDS: GABAPENTIN 400 MG CAPSULE (FP) PO SCH ×3 (06:13→21:23)
[2018-08-30 10:26] LABS: HEMATOCRIT 29.5 % (32.4-45.2); HEMOGLOBIN 9.5 GM/dL (10.7-15.3); MCH 27.3 pg (25.7-33.7); MCHC 32.4 g/dl (32.0-36.0); MEAN CELL VOLUME 84.2 fl (80-96); MEAN PLT VOLUME 8.3 fl (7.5-11.1); PLATELET COUNT 208 K/MM3 (134-434); WHITE BLOOD COUNT 5.2 K/mm3 (4.0-10.0)
[2018-08-30 10:52] LABS: ALBUMIN 3.3 g/dl (3.4-5.0); ALK PHOS 89 U/L (45-117); ANION GAP 5 MMOL/L (8-16); BILIRUBIN,TOTAL 0.4 mg/dL (0.2-1); BLOOD UREA NITROGEN 19 mg/dL (7-18); CALCIUM 9.2 mg/dL (8.5-10.1); CHLORIDE 98 mmol/L (98-107); CO2 37 mmol/L (21-32); CREATININE 0.6 mg/dL (0.55-1.3); GLUCOSE,RANDOM 149 mg/dL (74-106); POTASSIUM 3.6 mmol/L (3.5-5.1); SGOT/AST 10 U/L (15-37); SGPT/ALT 22 U/L (13-61); SODIUM 140 mmol/L (136-145); TOT PROT 6.8 g/dl (6.4-8.2)
--- NOTE | 2018-08-30 11:18 | PN ---
Progress Note (short form) - Note Progress Note: pt seen/ examined chart reviewed awake/ comfortable no distress afebrile sputum culture + Acinobactor -- Likely colonization Vital Signs Temp 98.4 F 08/30/18 06:48 Pulse 63 08/30/18 08:10 Resp 18 08/30/18 06:48 BP 100/56 L 08/30/18 06:48 Pulse Ox 96 08/30/18 08:10 Intake & Output 08/29/18 08/29/18 08/30/18 11:59 23:59 11:59 Intake Total 450 875 400 Output Total 3600 2300 Balance 351 -3975 -3248 Intake: IVPB 50 Oral 400 875 400 Output: Urine 3600 2300 [place] 3600 2300 Other: Voiding Method Indwelling Catheter Indwelling Catheter Bowel Movement No No # Bowel Movements 1 Physical Exam Awake/ comfortable No distress trach-trach collar S1 S2 RRR anasarca lungs -- few scattered ronchi+ abd- soft, obese, NT ext- + edema- Mild - dependent PLAN stable sono legs to r/o DVT -- -ve blood/urine cultures negative legionella negative trach collar as tolerated stable for d/c on po angmentin discussed with Dr. Kitchen -- Agree with same will d/c to [facility].
--- NOTE | 2018-08-30 11:26 | DS ---
Physical Examination Vital Signs: Vital Signs Temperature 98.4 F 08/30/18 06:48 Pulse Rate 63 08/30/18 08:10 Respiratory Rate 18 08/30/18 06:48 Blood Pressure 100/56 L 08/30/18 06:48 O2 Sat by Pulse Oximetry (%) 96 08/30/18 08:10 Findings/Remarks: See today Progress note Labs: CBC, BMP 08/30/18 09:46 08/30/18 09:46 Discharge Summary Reason For Visit: CONGESTIVE HEART FAILURE/RASH/HYPOTENSION Current Active Problems COPD exacerbation (Acute) Hypotension (Acute) Pneumonia (Acute) Rash (Acute) Condition: Guarded - Instructions - Home Medications Comprehensive Discharge Medication List: Ambulatory Orders Acetaminophen 1,000 mg PO Q6H PRN 10/18/17 Aripiprazole 10 mg PO DAILY 10/18/17 Aspirin 81 mg PO DAILY 10/18/17 Furosemide [Lasix -] 40 mg PO BID 10/18/17 Lactobacillus Acidophilus [Acidophilus] 1 each PO BID 10/18/17 Levothyroxine [Synthroid -] 25 mcg PO DAILY 10/18/17 Mirtazapine 15 mg PO HS 10/18/17 Sennosides [Senna -] 2 tab PO HS tablet 01/18/18 Atorvastatin Ca [Lipitor] 20 mg PO HS 01/24/18 Docusate Sodium [Colace] 100 mg PO HS 01/24/18 Escitalopram Oxalate [Lexapro -] 20 mg PO DAILY 01/24/18 Magnesium Hydroxide [Milk of Magnesia] 30 mg PO ASDIR PRN 01/24/18 Polyethylene Glycol 3350 [Gavilax] 17 gm PO DAILY 01/24/18 Vit A/Vitamin D3/E/Aloe V/Zinc [Periguard Ointment] 1 applic TP BID 01/24/18 Guaifenesin/D-Methorphan Hb [Diabetic Tussin Dm -] 10 ml PO Q4H PRN ml Albuterol 2.5/Ipratropium 0.5 [Duoneb -] 1 amp NEB RQID amp 03/20/18 Pantoprazole Sodium [Protonix -] 40 mg PO DAILY #60 tablet.ec 05/20/18 Clotrimazole/Betamet Diprop [Lotrisone -] 1 applic TP BID 06/02/18 Apixaban [Eliquis -] 2.5 mg PO BID 08/25/18 Budesonide/Formeterol Fumarate [SYMBICORT 160/4.5mcg -] 2 inh PO BID 08/25/18 Gabapentin [Neurontin -] 400 mg PO Q8H 08/25/18 Hydroxyzine Pamoate 25 mg PO BID 08/25/18 Montelukast Na [Singulair -] 10 mg PO HS 08/25/18 Sacubitril/Valsartan [Entresto 24 mg-26 mg Tablet] 1 each PO BID 08/25/18 traZODone HCL [Desyrel -] 100 mg PO HS 08/25/18 Albuterol 2.5/Ipratropium 0.5 [Duoneb -] 1 amp NEB Q6H PRN amp 08/30/18
--- NOTE | 2018-08-30 11:27 | DS ---
Physical Examination Vital Signs: Vital Signs Temperature 98.4 F 08/30/18 06:48 Pulse Rate 63 08/30/18 08:10 Respiratory Rate 18 08/30/18 06:48 Blood Pressure 100/56 L 08/30/18 06:48 O2 Sat by Pulse Oximetry (%) 96 08/30/18 08:10 Findings/Remarks: comfortable No new issues feels okay Constitutional: Yes: No Distress, Calm Eyes: Yes: Conjunctiva Clear Neck: Yes: Supple Cardiovascular: Yes: Regular Rate and Rhythm, Other (on trach collar) Respiratory: Yes: Diminished Gastrointestinal: Yes: Abdomen, Obese Edema: LLE: 1+, RLE: 1+ Neurological: Yes: Alert Psychiatric: Yes: Alert Labs: CBC, BMP 08/30/18 09:46 08/30/18 09:46 Discharge Summary Reason For Visit: CONGESTIVE HEART FAILURE/RASH/HYPOTENSION Current Active Problems COPD exacerbation (Acute) Hypotension (Acute) Pneumonia (Acute) Rash (Acute) Hospital Course: admitted from [facility]--due to shortness of breath/cough Initially admitted to ICU--- due to hypoxia Treated with antibiotics/Vent support Got better Positive tracheal secretions Culture positive for Acinobactor ID followed now stable for discharge to [facility] discussed with Dr. Kitchen today----okay to discharge on by mouth antibiotics-- Augmentin Medications reconciled Discussed with nursing staff/case worker also Condition: Improved - Instructions Disposition: [facility] F[facility] - Home Medications Comprehensive Discharge Medication List: Ambulatory Orders Acetaminophen 1,000 mg PO Q6H PRN 10/18/17 Aripiprazole 10 mg PO DAILY 10/18/17 Aspirin 81 mg PO DAILY 10/18/17 Furosemide [Lasix -] 40 mg PO BID 10/18/17 Lactobacillus Acidophilus [Acidophilus] 1 each PO BID 10/18/17 Levothyroxine [Synthroid -] 25 mcg PO DAILY 10/18/17 Mirtazapine 15 mg PO HS 10/18/17 Sennosides [Senna -] 2 tab PO HS tablet 01/18/18 Atorvastatin Ca [Lipitor] 20 mg PO HS 01/24/18 Docusate Sodium [Colace] 100 mg PO HS 01/24/18 Escitalopram Oxalate [Lexapro -] 20 mg PO DAILY 01/24/18 Magnesium Hydroxide [Milk of Magnesia] 30 mg PO ASDIR PRN 01/24/18 Polyethylene Glycol 3350 [Gavilax] 17 gm PO DAILY 01/24/18 Vit A/Vitamin D3/E/Aloe V/Zinc [Periguard Ointment] 1 applic TP BID 01/24/18 Guaifenesin/D-Methorphan Hb [Diabetic Tussin Dm -] 10 ml PO Q4H PRN ml Albuterol 2.5/Ipratropium 0.5 [Duoneb -] 1 amp NEB RQID amp 03/20/18 Pantoprazole Sodium [Protonix -] 40 mg PO DAILY #60 tablet.ec 05/20/18 Clotrimazole/Betamet Diprop [Lotrisone -] 1 applic TP BID 06/02/18 Apixaban [Eliquis -] 2.5 mg PO BID 08/25/18 Budesonide/Formeterol Fumarate [SYMBICORT 160/4.5mcg -] 2 inh PO BID 08/25/18 Gabapentin [Neurontin -] 400 mg PO Q8H 08/25/18 Hydroxyzine Pamoate 25 mg PO BID 08/25/18 Montelukast Na [Singulair -] 10 mg PO HS 08/25/18 Sacubitril/Valsartan [Entresto 24 mg-26 mg Tablet] 1 each PO BID 08/25/18 traZODone HCL [Desyrel -] 100 mg PO HS 08/25/18 Albuterol 2.5/Ipratropium 0.5 [Duoneb -] 1 amp NEB Q6H PRN amp 08/30/18 Amoxicillin/Potassium Clav [Augmentin 875-125 Tablet] 1 each PO BID 5 Days #10 tablet 08/30/18
[2018-08-30] MEDS ORDERED: PT OWN MED DRAWER 7, Y5N ONE ×2 (11:42→21:12)
[2018-08-30] MEDS ORDERED: DEXTROSE 5%-WATER 100 ML IVPB ONE (11:43)
[2018-08-30] MEDS: CEFTRIAXONE 2 GM in DEXTROSE 5%-WATER 100 ML IVPB SCH (11:47)
[2018-08-30] MEDS: LACTOBACILLUS ACIDOPHILUS 1 TABLET PO SCH ×2 (11:47→21:23)
[2018-08-30] MEDS: PANTOPRAZOLE 40 MG TABLET (FP) PO SCH (11:47)
[2018-08-30] MEDS: APIXABAN 2.5 MG TABLET PO SCH ×2 (11:47→21:23)
[2018-08-30] MEDS: ASPIRIN 81 MG CHEWABLE TABLETS PO SCH (11:47)
[2018-08-30] MEDS: ARIPiprazole 10 MG TABLET PO SCH (11:48)
[2018-08-30] MEDS: SACUBITRIL/VALSARTAN 24 MG-26 MG TABLET PO SCH ×2 (11:48→21:25)
[2018-08-30] MEDS: ESCITALOPRAM OXALATE 20 MG TABLET (FP) PO SCH (11:48)
[2018-08-30] MEDS: CLOTRIMAZOLE/BETAMET DIPROP 15 GM TUBE TP SCH ×2 (11:49→21:25)
[2018-08-30] MEDS: POLYETHYLENE GLYCOL 3350 119 GM BTL PO SCH (11:49)
[2018-08-30] MEDS: BUDESONIDE/FORMETEROL FUMARATE 160/4.5 mcg INHALER IH SCH ×2 (11:53→21:26)
--- NOTE | 2018-08-30 12:29 | PN ---
Progress Note, Physician History of Present Illness: pulmonary alert,no distress,comfortable on trach collar - Current Medication List Current Medications: Active Medications Acetaminophen (Tylenol -) 1,000 mg PO Q6H PRN PRN Reason: PAIN Last Admin: 08/30/18 12:01 Dose: 1,000 mg Albuterol/Ipratropium (Duoneb -) 1 amp NEB Q6H PRN PRN Reason: SHORTNESS OF BREATH Last Admin: 08/28/18 20:12 Dose: 1 amp Apixaban (Eliquis -) 2.5 mg PO BID [facility] Last Admin: 08/30/18 11:47 Dose: 2.5 mg Aripiprazole (Abilify) 10 mg PO DAILY [facility] Last Admin: 08/30/18 11:48 Dose: 10 mg Aspirin (Asa -) 81 mg PO DAILY [facility] Last Admin: 08/30/18 11:47 Dose: 81 mg Atorvastatin Calcium (Lipitor -) 20 mg PO HS [facility] Last Admin: 08/29/18 22:26 Dose: 20 mg Budesonide/Formoterol Fumarate (Symbicort 160/4.5mcg -) 2 puff IH BID [facility] Last Admin: 08/30/18 11:53 Dose: 2 inhaler Clotrimazole (Lotrisone Cream (Small Tube)) 1 applic TP BID [facility] Last Admin: 08/30/18 11:49 Dose: 1 applic Docusate Sodium (Colace -) 100 mg PO HS [facility] Last Admin: 08/29/18 22:25 Dose: 100 mg Escitalopram Oxalate (Lexapro -) 20 mg PO DAILY [facility] Last Admin: 08/30/18 11:48 Dose: 20 mg Furosemide (Lasix Injection -) 40 mg IVPUSH BID@0600,1400 [facility] Last Admin: 08/30/18 06:13 Dose: 40 mg Gabapentin (Neurontin -) 400 mg PO TID [facility] Last Admin: 08/30/18 06:13 Dose: 400 mg Ceftriaxone Sodium 2 gm/ (Dextrose) 100 mls @ 200 mls/hr IVPB DAILY [facility]; Protocol Last Admin: 08/30/18 11:47 Dose: 200 mls/hr Lactobacillus Acidophilus (Bacid -) 1 tab PO BID [facility] Last Admin: 08/30/18 11:47 Dose: 1 tab Levothyroxine Sodium (Synthroid -) 25 mcg PO DAILY@0700 [facility] Last Admin: 08/30/18 06:13 Dose: 25 mcg Mirtazapine (Remeron -) 15 mg PO [facility] Last Admin: 08/29/18 22:26 Dose: 15 mg Montelukast Sodium (Singulair -) 10 mg PO [facility] Last Admin: 08/29/18 22:26 Dose: 10 mg Pantoprazole Sodium (Protonix -) 40 mg PO DAILY [facility] Last Admin: 08/30/18 11:47 Dose: 40 mg Polyethylene Glycol (Miralax (For Daily Use) -) 17 gm PO DAILY [facility] Last Admin: 08/30/18 11:49 Dose: Not Given Sacubitril/Valsartan (Entresto 24 Mg-26 Mg Tablet) 1 tab PO BID [facility] Last Admin: 08/30/18 11:48 Dose: 1 tab Senna (Senna -) 2 tab PO [facility] Last Admin: 08/29/18 22:26 Dose: 2 tab Trazodone HCl (Desyrel -) 100 mg PO [facility] Last Admin: 08/29/18 22:25 Dose: 100 mg - Objective Vital Signs: Vital Signs Temperature 98.4 F 08/30/18 06:48 Pulse Rate 63 08/30/18 08:10 Respiratory Rate 18 08/30/18 06:48 Blood Pressure 100/56 L 08/30/18 06:48 O2 Sat by Pulse Oximetry (%) 96 08/30/18 08:10 Constitutional: Yes: No Distress, Obese Eyes: Yes: WNL HENT: Yes: WNL Neck: Yes: Supple (trach) Cardiovascular: Yes: Regular Rate and Rhythm, S1, S2 Respiratory: Yes: Rhonchi (few rhonchi) Gastrointestinal: Yes: Normal Bowel Sounds, Soft Extremities: Yes: WNL Edema: Yes Labs: CBC, BMP 08/30/18 09:46 08/30/18 09:46 Problem List - Problems (1) COPD exacerbation Code(s): J44.1 - CHRONIC OBSTRUCTIVE PULMONARY DISEASE W (ACUTE) EXACERBATION (2) Acute on chronic respiratory failure with hypoxia and hypercapnia Code(s): J96.21 - ACUTE AND CHRONIC RESPIRATORY FAILURE WITH HYPOXIA; J96.22 - ACUTE AND CHRONIC RESPIRATORY FAILURE WITH HYPERCAPNIA (3) Bipolar 1 disorder Code(s): F31.9 - BIPOLAR DISORDER, UNSPECIFIED (4) CHF (congestive heart failure) Code(s): I50.9 - HEART FAILURE, UNSPECIFIED (5) Depression Code(s): F32.9 - MAJOR DEPRESSIVE DISORDER, SINGLE EPISODE, UNSPECIFIED (6) Diabetes Code(s): E11.9 - TYPE 2 DIABETES MELLITUS WITHOUT COMPLICATIONS (7) Morbid (severe) obesity due to excess calories Code(s): E66.01 - MORBID (SEVERE) OBESITY DUE TO EXCESS CALORIES (8) Tracheostomy dependence Code(s): Z93.0 - TRACHEOSTOMY STATUS Assessment/Plan ASSESSMENT AND PLAN: Chronic Respiratory Failure s/p Tracheostomy Volume Overload/Anasarca COPD Hypothyroidism h/o VTE Bipolar Disorder Depression - lasix - monitor urine output, creatinine - daily weights - continue anticoagulation - inhaled bronchodilators - O2 to keep SpO2 >90% - trach collar during day, vented at night - PO as tolerated - DVT/GI prophylaxis DR STEELE
--- NOTE | 2018-08-30 15:17 | PN ---
Progress Note, Physician History of Present Illness: AWAKE, ALERT ON TRACH COLLAR OCCASIONAL COUGH STILL WITH TRACHEAL SECRETIONS NO C/O CHEST PAIN AFEBRILE WBC WNL C/S ACINETOBACTER LEGIONELLA/ PNEUMONCOCCAL AG (-) - Current Medication List Current Medications: Active Medications Acetaminophen (Tylenol -) 1,000 mg PO Q6H PRN PRN Reason: PAIN Last Admin: 08/30/18 12:01 Dose: 1,000 mg Albuterol/Ipratropium (Duoneb -) 1 amp NEB Q6H PRN PRN Reason: SHORTNESS OF BREATH Last Admin: 08/28/18 20:12 Dose: 1 amp Apixaban (Eliquis -) 2.5 mg PO BID [facility] Last Admin: 08/30/18 11:47 Dose: 2.5 mg Aripiprazole (Abilify) 10 mg PO DAILY [facility] Last Admin: 08/30/18 11:48 Dose: 10 mg Aspirin (Asa -) 81 mg PO DAILY [facility] Last Admin: 08/30/18 11:47 Dose: 81 mg Atorvastatin Calcium (Lipitor -) 20 mg PO HS [facility] Last Admin: 08/29/18 22:26 Dose: 20 mg Budesonide/Formoterol Fumarate (Symbicort 160/4.5mcg -) 2 puff IH BID [facility] Last Admin: 08/30/18 11:53 Dose: 2 inhaler Clotrimazole (Lotrisone Cream (Small Tube)) 1 applic TP BID [facility] Last Admin: 08/30/18 11:49 Dose: 1 applic Docusate Sodium (Colace -) 100 mg PO HS [facility] Last Admin: 08/29/18 22:25 Dose: 100 mg Escitalopram Oxalate (Lexapro -) 20 mg PO DAILY [facility] Last Admin: 08/30/18 11:48 Dose: 20 mg Furosemide (Lasix Injection -) 40 mg IVPUSH BID@0600,1400 [facility] Last Admin: 08/30/18 06:13 Dose: 40 mg Gabapentin (Neurontin -) 400 mg PO TID [facility] Last Admin: 08/30/18 06:13 Dose: 400 mg Lactobacillus Acidophilus (Bacid -) 1 tab PO BID [facility] Last Admin: 08/30/18 11:47 Dose: 1 tab Levothyroxine Sodium (Synthroid -) 25 mcg PO DAILY@0700 [facility] Last Admin: 08/30/18 06:13 Dose: 25 mcg Mirtazapine (Remeron -) 15 mg PO [facility] Last Admin: 08/29/18 22:26 Dose: 15 mg Montelukast Sodium (Singulair -) 10 mg PO [facility] Last Admin: 08/29/18 22:26 Dose: 10 mg Pantoprazole Sodium (Protonix -) 40 mg PO DAILY [facility] Last Admin: 08/30/18 11:47 Dose: 40 mg Polyethylene Glycol (Miralax (For Daily Use) -) 17 gm PO DAILY [facility] Last Admin: 08/30/18 11:49 Dose: Not Given Sacubitril/Valsartan (Entresto 24 Mg-26 Mg Tablet) 1 tab PO BID [facility] Last Admin: 08/30/18 11:48 Dose: 1 tab Senna (Senna -) 2 tab PO [facility] Last Admin: 08/29/18 22:26 Dose: 2 tab Trazodone HCl (Desyrel -) 100 mg PO [facility] Last Admin: 08/29/18 22:25 Dose: 100 mg - Objective Vital Signs: Vital Signs Temperature 98.0 F 08/30/18 14:02 Pulse Rate 65 08/30/18 14:02 Respiratory Rate 22 H 08/30/18 14:02 Blood Pressure 106/61 08/30/18 14:02 O2 Sat by Pulse Oximetry (%) 96 08/30/18 08:10 Constitutional: Yes: Obese Eyes: Yes: Conjunctiva Clear Cardiovascular: Yes: Regular Rate and Rhythm, S1, S2 Respiratory: Yes: Rhonchi Gastrointestinal: Yes: Normal Bowel Sounds, Soft, Abdomen, Obese. No: Tenderness Edema: Yes Labs: CBC, BMP 08/30/18 09:46 08/30/18 09:46 INR, PTT INR 1.23 (0.83-1.09) H 08/25/18 13:30 Assessment/Plan HYPERCAPNEIC RESP FAILURE COPD EXACERBATION ? [facility] AUG[facility]IN 875MG PO BID 7D
[2018-08-30] MEDS: AMOX TR/POT CLAV 875MG/125MG TABLETS (FP) PO SCH (19:02)
[2018-08-30] MEDS ORDERED: traZODone HCL 50 MG TABLET (FP) ONE (21:11)
[2018-08-30] MEDS: ATORVASTATIN CA 20 MG TABLET (FP) PO SCH (21:23)
[2018-08-30] MEDS: MONTELUKAST NA 10 MG TABLET PO SCH (21:24)
[2018-08-30] MEDS: traZODone HCL 100 MG TABLET (FP) PO SCH (21:24)
[2018-08-30] MEDS: MIRTAZAPINE 15 MG TABLET (FP) PO SCH (21:24)
[2018-08-30] MEDS: SENNOSIDES 8.6MG TABLET (FP) PO SCH (21:25)
[2018-08-30] MEDS: DOCUSATE SODIUM 100 MG CAPSULE (FP) PO SCH (21:25)
[2018-08-31] MEDS: FUROSEMIDE 40 MG/4 ML INJECTABLE VIAL IVPUSH SCH ×3 (06:39→16:08)
[2018-08-31] MEDS: LEVOTHYROXINE NA 25 MCG TABLET (FP) PO SCH (06:39)
[2018-08-31] MEDS: GABAPENTIN 400 MG CAPSULE (FP) PO SCH ×3 (06:39→21:49)
[2018-08-31] MEDS: AMOX TR/POT CLAV 875MG/125MG TABLETS (FP) PO SCH ×2 (08:48→18:08)
--- NOTE | 2018-08-31 10:00 | PN ---
Progress Note, Physician Chief Complaint: seen and examined. Appears improved. - Current Medication List Current Medications: Active Medications Acetaminophen (Tylenol -) 1,000 mg PO Q6H PRN PRN Reason: PAIN Last Admin: 08/30/18 12:01 Dose: 1,000 mg Albuterol/Ipratropium (Duoneb -) 1 amp NEB Q6H PRN PRN Reason: SHORTNESS OF BREATH Last Admin: 08/28/18 20:12 Dose: 1 amp Amoxicillin/Clavulanate Potassium (Augmentin - 875mg Tablet) 1 tab PO BID@0800, 1730 [facility] Last Admin: 08/31/18 08:48 Dose: 1 tab Apixaban (Eliquis -) 2.5 mg PO BID [facility] Last Admin: 08/30/18 21:23 Dose: 2.5 mg Aripiprazole (Abilify) 10 mg PO DAILY [facility] Last Admin: 08/30/18 11:48 Dose: 10 mg Aspirin (Asa -) 81 mg PO DAILY [facility] Last Admin: 08/30/18 11:47 Dose: 81 mg Atorvastatin Calcium (Lipitor -) 20 mg PO HS [facility] Last Admin: 08/30/18 21:23 Dose: 20 mg Budesonide/Formoterol Fumarate (Symbicort 160/4.5mcg -) 2 puff IH BID [facility] Last Admin: 08/30/18 21:26 Dose: 2 inhaler Clotrimazole (Lotrisone Cream (Small Tube)) 1 applic TP BID [facility] Last Admin: 08/30/18 21:25 Dose: 1 applic Docusate Sodium (Colace -) 100 mg PO HS [facility] Last Admin: 08/30/18 21:25 Dose: Not Given Escitalopram Oxalate (Lexapro -) 20 mg PO DAILY [facility] Last Admin: 08/30/18 11:48 Dose: 20 mg Furosemide (Lasix Injection -) 40 mg IVPUSH BID@0600,1400 [facility] Last Admin: 08/31/18 06:39 Dose: 40 mg Gabapentin (Neurontin -) 400 mg PO TID [facility] Last Admin: 08/31/18 06:39 Dose: 400 mg Lactobacillus Acidophilus (Bacid -) 1 tab PO BID [facility] Last Admin: 08/30/18 21:23 Dose: 1 tab Levothyroxine Sodium (Synthroid -) 25 mcg PO DAILY@0700 [facility] Last Admin: 08/31/18 06:39 Dose: 25 mcg Mirtazapine (Remeron -) 15 mg PO [facility] Last Admin: 08/30/18 21:24 Dose: 15 mg Montelukast Sodium (Singulair -) 10 mg PO [facility] Last Admin: 08/30/18 21:24 Dose: 10 mg Pantoprazole Sodium (Protonix -) 40 mg PO DAILY [facility] Last Admin: 08/30/18 11:47 Dose: 40 mg Polyethylene Glycol (Miralax (For Daily Use) -) 17 gm PO DAILY [facility] Last Admin: 08/30/18 11:49 Dose: Not Given Sacubitril/Valsartan (Entresto 24 Mg-26 Mg Tablet) 1 tab PO BID [facility] Last Admin: 08/30/18 21:25 Dose: 1 tab Senna (Senna -) 2 tab PO [facility] Last Admin: 08/30/18 21:25 Dose: Not Given Trazodone HCl (Desyrel -) 100 mg PO [facility] Last Admin: 08/30/18 21:24 Dose: 100 mg - Objective Vital Signs: Vital Signs Temperature 98.3 F 08/31/18 06:00 Pulse Rate 59 L 08/31/18 07:49 Respiratory Rate 18 08/31/18 06:15 Blood Pressure 104/58 L 08/31/18 06:00 O2 Sat by Pulse Oximetry (%) 93 L 08/31/18 07:49 Constitutional: Yes: No Distress Cardiovascular: Yes: Regular Rate and Rhythm Respiratory: Yes: Rhonchi Gastrointestinal: Yes: Soft, Abdomen, Obese Edema: Yes Edema: LLE: 2+, RLE: 2+ Neurological: Yes: Alert, Oriented Labs: CBC, BMP 08/30/18 09:46 08/30/18 09:46 INR, PTT INR 1.23 (0.83-1.09) H 08/25/18 13:30 Laboratory Tests 08/25/18 08/25/18 08/26/18 13:00 16:42 11:04 WBC Hgb Plt Count Sodium Potassium BUN Creatinine Calcium Total Bilirubin AST ALT Alkaline Phosphatase Troponin I < 0.02 < 0.02 Influenza A (Rapid) Negative Influenza B (Rapid) Negative 08/27/18 08/27/18 08/30/18 05:40 05:40 09:46 WBC 5.2 5.2 Hgb 9.0 L 9.5 L Plt Count 190 208 Sodium 140 Potassium 3.9 BUN 17 Creatinine 0.6 Calcium Total Bilirubin AST ALT Alkaline Phosphatase Troponin I Influenza A (Rapid) Influenza B (Rapid) 08/30/18 09:46 WBC Hgb Plt Count Sodium 140 Potassium 3.6 BUN 19 H Creatinine 0.6 Calcium 9.2 Total Bilirubin 0.4 AST 10 L ALT 22 Alkaline Phosphatase 89 Troponin I Influenza A (Rapid) Influenza B (Rapid) Assessment/Plan IMP: Morbid obesity Prior VTE on AC Worsened Dyspnea: CHF vs PNA (decompensated diastolic) Anasarca Chronic respiratory failure REC: 1. Cont AC 2. Would continue IV Lasix for another day 3. ?long-term benefit of Entresto- LV function is normal. Would switch to OMAYRA or ARB with 48 hour wash out. Can be done as outpatient.
[2018-08-31] MEDS ORDERED: PT OWN MED DRAWER 7, Y5N ONE ×3 (11:20→20:58)
[2018-08-31] MEDS: APIXABAN 2.5 MG TABLET PO SCH ×2 (11:21→21:49)
[2018-08-31] MEDS: LACTOBACILLUS ACIDOPHILUS 1 TABLET PO SCH ×2 (11:21→21:48)
[2018-08-31] MEDS: ESCITALOPRAM OXALATE 20 MG TABLET (FP) PO SCH (11:22)
[2018-08-31] MEDS: ASPIRIN 81 MG CHEWABLE TABLETS PO SCH (11:22)
[2018-08-31] MEDS: PANTOPRAZOLE 40 MG TABLET (FP) PO SCH (11:23)
[2018-08-31] MEDS: SACUBITRIL/VALSARTAN 24 MG-26 MG TABLET PO SCH ×2 (11:24→21:50)
[2018-08-31] MEDS: POLYETHYLENE GLYCOL 3350 119 GM BTL PO SCH (11:24)
[2018-08-31] MEDS: ARIPiprazole 10 MG TABLET PO SCH (11:24)
[2018-08-31] MEDS: BUDESONIDE/FORMETEROL FUMARATE 160/4.5 mcg INHALER IH SCH ×2 (11:27→21:51)
[2018-08-31 11:29] VITALS: BMI 75.7
--- NOTE | 2018-08-31 12:23 | PN ---
Progress Note (short form) - Note Progress Note: PULMONARY Breathing continues to improve. +cough with white sputum. No fevers. Currently tolerating trach collar. Vital Signs Period Temp Pulse Resp BP Sys/Petersen Pulse Ox Last 24 Hr 98.0 F-98.3 F 50-90 14-22 104-113/51-61 93 Intake & Output 08/28/18 08/29/18 08/30/18 08/31/18 23:59 23:59 23:59 23:59 Intake Total 800 1325 1580 Output Total 3700 3600 4800 2300 Balance -2900 -2275 -3220 -2300 Weight 181.891 kg Gen: less tachypneic Heart: RRR Lung: scattered rhonchi Abd: soft, nontender Ext: + edema CBC, BMP 08/30/18 09:46 08/30/18 09:46 Active Medications Acetaminophen (Tylenol -) 1,000 mg PO Q6H PRN PRN Reason: PAIN Last Admin: 08/30/18 12:01 Dose: 1,000 mg Albuterol/Ipratropium (Duoneb -) 1 amp NEB Q6H PRN PRN Reason: SHORTNESS OF BREATH Last Admin: 08/28/18 20:12 Dose: 1 amp Amoxicillin/Clavulanate Potassium (Augmentin - 875mg Tablet) 1 tab PO BID@0800, 1730 [facility] Last Admin: 08/31/18 08:48 Dose: 1 tab Apixaban (Eliquis -) 2.5 mg PO BID [facility] Last Admin: 08/31/18 11:21 Dose: 2.5 mg Aripiprazole (Abilify) 10 mg PO DAILY [facility] Last Admin: 08/31/18 11:24 Dose: 10 mg Aspirin (Asa -) 81 mg PO DAILY [facility] Last Admin: 08/31/18 11:22 Dose: 81 mg Atorvastatin Calcium (Lipitor -) 20 mg PO HS [facility] Last Admin: 08/30/18 21:23 Dose: 20 mg Budesonide/Formoterol Fumarate (Symbicort 160/4.5mcg -) 2 puff IH BID [facility] Last Admin: 08/31/18 11:27 Dose: 2 inhaler Clotrimazole (Lotrisone Cream (Small Tube)) 1 applic TP BID [facility] Last Admin: 08/30/18 21:25 Dose: 1 applic Docusate Sodium (Colace -) 100 mg PO [facility] Last Admin: 08/30/18 21:25 Dose: Not Given Escitalopram Oxalate (Lexapro -) 20 mg PO DAILY [facility] Last Admin: 08/31/18 11:22 Dose: 20 mg Furosemide (Lasix Injection -) 40 mg IVPUSH BID@0600,1400 [facility] Last Admin: 08/31/18 06:39 Dose: 40 mg Gabapentin (Neurontin -) 400 mg PO TID [facility] Last Admin: 08/31/18 06:39 Dose: 400 mg Lactobacillus Acidophilus (Bacid -) 1 tab PO BID [facility] Last Admin: 08/31/18 11:21 Dose: 1 tab Levothyroxine Sodium (Synthroid -) 25 mcg PO DAILY@0700 [facility] Last Admin: 08/31/18 06:39 Dose: 25 mcg Mirtazapine (Remeron -) 15 mg PO [facility] Last Admin: 08/30/18 21:24 Dose: 15 mg Montelukast Sodium (Singulair -) 10 mg PO [facility] Last Admin: 08/30/18 21:24 Dose: 10 mg Pantoprazole Sodium (Protonix -) 40 mg PO DAILY [facility] Last Admin: 08/31/18 11:23 Dose: 40 mg Polyethylene Glycol (Miralax (For Daily Use) -) 17 gm PO DAILY [facility] Last Admin: 08/31/18 11:24 Dose: Not Given Sacubitril/Valsartan (Entresto 24 Mg-26 Mg Tablet) 1 tab PO BID [facility] Last Admin: 08/31/18 11:24 Dose: 1 tab Senna (Senna -) 2 tab PO [facility] Last Admin: 08/30/18 21:25 Dose: Not Given Trazodone HCl (Desyrel -) 100 mg PO [facility] Last Admin: 08/30/18 21:24 Dose: 100 mg A/P Chronic Respiratory Failure s/p Tracheostomy Volume Overload/Anasarca COPD Hypothyroidism h/o VTE Bipolar Disorder Depression - continue lasix - monitor urine output, creatinine - daily weights - continue anticoagulation - inhaled bronchodilators - O2 to keep SpO2 >90% - trach collar during day, vented at night - PO as tolerated - DVT/GI prophylaxis
--- NOTE | 2018-08-31 12:56 | PN ---
Progress Note (short form) - Note Progress Note: feels better tolerating trach collar Vital Signs - 24 hr 08/30/18 08/30/18 08/30/18 14:02 18:00 19:20 Temperature 98.0 F 98.0 F Pulse Rate 65 61 Respiratory 22 H 18 20 Rate Blood Pressure 106/61 113/56 L O2 Sat by Pulse Oximetry (%) 08/30/18 08/30/18 08/30/18 21:00 22:00 22:38 Temperature 98.0 F Pulse Rate 50 L Respiratory 14 18 14 Rate Blood Pressure 104/51 L O2 Sat by Pulse Oximetry (%) 08/31/18 08/31/18 08/31/18 02:30 06:00 06:15 Temperature 98.3 F Pulse Rate 90 Respiratory 14 18 18 Rate Blood Pressure 104/58 L O2 Sat by Pulse Oximetry (%) 08/31/18 08/31/18 07:49 11:18 Temperature 98.2 F Pulse Rate 59 L 57 L Respiratory 20 Rate Blood Pressure 112/57 L O2 Sat by Pulse 93 L Oximetry (%) Current Medications Generic Name Dose Route Start Last Admin Trade Name Freq PRN Reason Stop Dose Admin Acetaminophen 1,000 mg 08/28/18 16:04 08/30/18 12:01 Tylenol - PO 1,000 mg Q6H PRN Administration PAIN Albuterol/Ipratropium 1 amp 08/28/18 16:04 08/28/18 20:12 Duoneb - NEB 1 amp Q6H PRN Administration SHORTNESS OF BREATH Amoxicillin/Clavulanate Potassium 1 tab 08/30/18 17:30 08/31/18 08:48 Augmentin - 875mg Tablet PO 1 tab BID@0800,1730 NOELLE Administration Apixaban 2.5 mg 08/28/18 22:00 08/31/18 11:21 Eliquis - PO 2.5 mg BID NOELLE Administration Aripiprazole 10 mg 08/28/18 10:00 08/31/18 11:24 Abilify PO 10 mg DAILY NOELLE Administration Aspirin 81 mg 08/29/18 10:00 08/31/18 11:22 Asa - PO 81 mg DAILY NOELLE Administration Atorvastatin Calcium 20 mg 08/28/18 22:00 08/30/18 21:23 Lipitor - PO 20 mg HS NOELLE Administration Budesonide/Formoterol Fumarate 2 puff 08/28/18 22:00 08/31/18 11:27 Symbicort 160/4.5mcg - IH 2 inhaler BID NOELLE Administration Clotrimazole 1 applic 08/28/18 22:00 08/30/18 21:25 Lotrisone Cream (Small Tube) TP 1 applic BID NOELLE Administration Docusate Sodium 100 mg 08/28/18 22:00 08/30/18 21:25 Colace - PO Not Given HS NOELLE Escitalopram Oxalate 20 mg 08/29/18 10:00 08/31/18 11:22 Lexapro - PO 20 mg DAILY NOELLE Administration Furosemide 40 mg 08/29/18 06:00 08/31/18 06:39 Lasix Injection - IVPUSH 40 mg BID@0600,1400 NOELLE Administration Gabapentin 400 mg 08/28/18 22:00 08/31/18 06:39 Neurontin - PO 400 mg TID NOELLE Administration Lactobacillus Acidophilus 1 tab 08/28/18 22:00 08/31/18 11:21 Bacid - PO 1 tab BID NOELLE Administration Levothyroxine Sodium 25 mcg 08/29/18 07:00 08/31/18 06:39 Synthroid - PO 25 mcg DAILY@0700 NOELLE Administration Mirtazapine 15 mg 08/28/18 22:00 08/30/18 21:24 Remeron - PO 15 mg HS NOELLE Administration Montelukast Sodium 10 mg 08/28/18 22:00 08/30/18 21:24 Singulair - PO 10 mg HS NOELLE Administration Pantoprazole Sodium 40 mg 08/29/18 10:00 08/31/18 11:23 Protonix - PO 40 mg DAILY NOELLE Administration Polyethylene Glycol 17 gm 08/29/18 10:00 08/31/18 11:24 Miralax (For Daily Use) - PO Not Given DAILY NOELLE Sacubitril/Valsartan 1 tab 08/28/18 22:00 08/31/18 11:24 Entresto 24 Mg-26 Mg Tablet PO 1 tab BID NOELLE Administration Senna 2 tab 08/28/18 22:00 08/30/18 21:25 Senna - PO Not Given HS NOELLE Trazodone HCl 100 mg 08/28/18 22:00 08/30/18 21:24 Desyrel - PO 100 mg HS NOELLE Administration trach-trach collar S1 S2 RRR Obese anasarca lungs ronchi+ abd- soft, obese, NT edema+ PLAN one more day iv lasix on po Augmentin dc planning tomorrow blood/urine cultures negative dc pete legionella negative trach collar as tolerated Problem List - Problems (1) Acute on chronic respiratory failure with hypoxia and hypercapnia Code(s): J96.21 - ACUTE AND CHRONIC RESPIRATORY FAILURE WITH HYPOXIA; J96.22 - ACUTE AND CHRONIC RESPIRATORY FAILURE WITH HYPERCAPNIA (2) CHF (congestive heart failure) Code(s): I50.9 - HEART FAILURE, UNSPECIFIED (3) Diabetes Code(s): E11.9 - TYPE 2 DIABETES MELLITUS WITHOUT COMPLICATIONS (4) Morbid obesity Code(s): E66.01 - MORBID (SEVERE) OBESITY DUE TO EXCESS CALORIES
[2018-08-31] MEDS: CLOTRIMAZOLE/BETAMET DIPROP 15 GM TUBE TP SCH ×2 (15:05→21:50)
[2018-08-31] MEDS ORDERED: methylPREDNISolone NA SUCC 40 MG/1 ML VIAL IVPUSH ONE (19:05)
--- NOTE | 2018-08-31 19:14 | HOSP ---
Physical Examination Vital Signs: Vital Signs Temperature 98.1 F 08/31/18 15:01 Pulse Rate 64 08/31/18 19:02 Respiratory Rate 24 H 08/31/18 19:02 Blood Pressure 97/53 L 08/31/18 19:02 O2 Sat by Pulse Oximetry (%) 97 08/31/18 19:00 Labs: CBC, BMP 08/30/18 09:46 08/30/18 09:46 Hospitalist Encounter Assessment: I was called by nurse for worsening shortness of breath. Patient is a morbidly obese woman with chronic resp failure, CHF, vent- dependent. Patient is tachypneic. Lung exam + for b/l wheezing and coarse breath sounds. Ordered methylprednisone IV, duonebs standing, VBG, CXR. Patient is on ventilator. Will reevaluate.
[2018-08-31] MEDS ORDERED: traZODone HCL 50 MG TABLET (FP) ONE (20:56)
[2018-08-31] MEDS: ALBUTEROL SO4 2.5/IPRATROPIUM 0.5 INH SOL 3 ML VIAL.NEB. NEB SCH (21:05)
[2018-08-31] MEDS: traZODone HCL 100 MG TABLET (FP) PO SCH (21:48)
[2018-08-31] MEDS: MIRTAZAPINE 15 MG TABLET (FP) PO SCH (21:49)
[2018-08-31] MEDS: ATORVASTATIN CA 20 MG TABLET (FP) PO SCH (21:49)
[2018-08-31] MEDS: MONTELUKAST NA 10 MG TABLET PO SCH (21:49)
[2018-08-31] MEDS: SENNOSIDES 8.6MG TABLET (FP) PO SCH (21:50)
[2018-08-31] MEDS: DOCUSATE SODIUM 100 MG CAPSULE (FP) PO SCH (21:51)
[2018-09-01] MEDS: ALBUTEROL SO4 2.5/IPRATROPIUM 0.5 INH SOL 3 ML VIAL.NEB. NEB SCH ×3 (00:24→12:18)
[2018-09-01] MEDS: LEVOTHYROXINE NA 25 MCG TABLET (FP) PO SCH (06:12)
[2018-09-01] MEDS: GABAPENTIN 400 MG CAPSULE (FP) PO SCH ×2 (06:12→14:51)
[2018-09-01] MEDS: FUROSEMIDE 40 MG/4 ML INJECTABLE VIAL IVPUSH SCH (06:12)
--- NOTE | 2018-09-01 08:41 | PN ---
Progress Note, Physician Chief Complaint: no SOB Denies CP - Current Medication List Current Medications: Active Medications Acetaminophen (Tylenol -) 1,000 mg PO Q6H PRN PRN Reason: PAIN Last Admin: 08/30/18 12:01 Dose: 1,000 mg Albuterol/Ipratropium (Duoneb -) 1 amp NEB Q6H [facility] Last Admin: 09/01/18 00:24 Dose: Not Given Amoxicillin/Clavulanate Potassium (Augmentin - 875mg Tablet) 1 tab PO BID@0800, 1730 [facility] Last Admin: 08/31/18 18:08 Dose: 1 tab Apixaban (Eliquis -) 2.5 mg PO BID [facility] Last Admin: 08/31/18 21:49 Dose: 2.5 mg Aripiprazole (Abilify) 10 mg PO DAILY [facility] Last Admin: 08/31/18 11:24 Dose: 10 mg Aspirin (Asa -) 81 mg PO DAILY [facility] Last Admin: 08/31/18 11:22 Dose: 81 mg Atorvastatin Calcium (Lipitor -) 20 mg PO HS [facility] Last Admin: 08/31/18 21:49 Dose: 20 mg Budesonide/Formoterol Fumarate (Symbicort 160/4.5mcg -) 2 puff IH BID [facility] Last Admin: 08/31/18 21:51 Dose: Not Given Clotrimazole (Lotrisone Cream (Small Tube)) 1 applic TP BID [facility] Last Admin: 08/31/18 21:50 Dose: 1 applic Docusate Sodium (Colace -) 100 mg PO HS [facility] Last Admin: 08/31/18 21:51 Dose: Not Given Escitalopram Oxalate (Lexapro -) 20 mg PO DAILY [facility] Last Admin: 08/31/18 11:22 Dose: 20 mg Furosemide (Lasix Injection -) 40 mg IVPUSH BID@0600,1400 [facility] Last Admin: 09/01/18 06:12 Dose: 40 mg Gabapentin (Neurontin -) 400 mg PO TID [facility] Last Admin: 09/01/18 06:12 Dose: 400 mg Lactobacillus Acidophilus (Bacid -) 1 tab PO BID [facility] Last Admin: 08/31/18 21:48 Dose: 1 tab Levothyroxine Sodium (Synthroid -) 25 mcg PO DAILY@0700 [facility] Last Admin: 09/01/18 06:12 Dose: 25 mcg Mirtazapine (Remeron -) 15 mg [address] [facility] Last Admin: 08/31/18 21:49 Dose: 15 mg Montelukast Sodium (Singulair -) 10 mg PO [facility] Last Admin: 08/31/18 21:49 Dose: 10 mg Pantoprazole Sodium (Protonix -) 40 mg PO DAILY [facility] Last Admin: 08/31/18 11:23 Dose: 40 mg Polyethylene Glycol (Miralax (For Daily Use) -) 17 gm PO DAILY [facility] Last Admin: 08/31/18 11:24 Dose: Not Given Sacubitril/Valsartan (Entresto 24 Mg-26 Mg Tablet) 1 tab PO BID [facility] Last Admin: 08/31/18 21:50 Dose: 1 tab Senna (Senna -) 2 tab PO [facility] Last Admin: 08/31/18 21:50 Dose: Not Given Trazodone HCl (Desyrel -) 100 mg PO [facility] Last Admin: 08/31/18 21:48 Dose: 100 mg - Objective Vital Signs: Vital Signs Temperature 97.9 F 09/01/18 06:00 Pulse Rate 54 L 09/01/18 06:50 Respiratory Rate 22 H 09/01/18 06:15 Blood Pressure 120/62 09/01/18 06:00 O2 Sat by Pulse Oximetry (%) 97 09/01/18 06:50 Constitutional: Yes: No Distress Neck: Yes: Other (Trach) Respiratory: Yes: Rhonchi Gastrointestinal: Yes: Soft, Abdomen, Obese Edema: Yes Edema: LLE: 1+, RLE: 1+ Neurological: Yes: Alert, Oriented Labs: CBC, BMP 08/30/18 09:46 08/30/18 09:46 INR, PTT INR 1.23 (0.83-1.09) H 08/25/18 13:30 Laboratory Tests 08/30/18 08/30/18 09:46 09:46 WBC 5.2 Hgb 9.5 L Plt Count 208 Sodium 140 Potassium 3.6 BUN 19 H Creatinine 0.6 Assessment/Plan IMP: Morbid obesity Prior VTE on AC Worsened Dyspnea: CHF vs PNA (decompensated diastolic) Anasarca Chronic respiratory failure REC: 1. Cont AC 2. Change to Lasix 60mg PO BID 3. 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 Would switch to OMAYRA or ARB with 48 hour wash out. Can be done as outpatient. Outpatient stress test also suggested.
[2018-09-01] MEDS: AMOX TR/POT CLAV 875MG/125MG TABLETS (FP) PO SCH (08:52)
[2018-09-01] MEDS ORDERED: PT OWN MED DRAWER 7, Y5N ONE (10:15)
[2018-09-01] MEDS: ESCITALOPRAM OXALATE 20 MG TABLET (FP) PO SCH (10:23)
[2018-09-01] MEDS: APIXABAN 2.5 MG TABLET PO SCH (10:23)
[2018-09-01] MEDS: LACTOBACILLUS ACIDOPHILUS 1 TABLET PO SCH (10:23)
[2018-09-01] MEDS: ASPIRIN 81 MG CHEWABLE TABLETS PO SCH (10:23)
[2018-09-01] MEDS: ARIPiprazole 10 MG TABLET PO SCH (10:23)
[2018-09-01] MEDS: PANTOPRAZOLE 40 MG TABLET (FP) PO SCH (10:23)
[2018-09-01] MEDS: SACUBITRIL/VALSARTAN 24 MG-26 MG TABLET PO SCH (10:24)
[2018-09-01] MEDS: CLOTRIMAZOLE/BETAMET DIPROP 15 GM TUBE TP SCH (10:24)
[2018-09-01] MEDS: POLYETHYLENE GLYCOL 3350 119 GM BTL PO SCH (10:25)
[2018-09-01] MEDS: BUDESONIDE/FORMETEROL FUMARATE 160/4.5 mcg INHALER IH SCH (10:25)
--- NOTE | 2018-09-01 13:07 | CONSULT ---
Admitting History and Physical - Primary Care Physician PCP: Candice Rockwell - Admission History of Present Illness: Known to me from out pt MBS 08/2017, at which time pt did not have a PMV, and there was deep penetration on thin liquids and difficulty with respiratory support for speech. PMV and repeat mbs recommended. PMV obtained and pt seen 2017 with excellent improvement in swallowing and speech. Pt has used PMV successfully. She uses it throughot the day, and is on ventilator at night. She reports it popping off and making a squeaking sound at times. She cleans it daily at [facility]. This PMV has not been replaced since 09/2017. History Source: Patient Limitations to Obtaining History: No Limitations - Past Medical History Pulmonary: Yes: COPD, O2 Dependent, Pneumonia Gastrointestinal: Yes: Other (colon polyps) Heme/Onc: Yes: Anemia, Other (h/o DVT) Psych: Yes: Bipolar Endocrine: Yes: Diabetes Mellitus - Smoking History Smoking history: Former smoker Have you smoked in the past 12 months: No Aproximately how many cigarettes per day: 5 If you are a former smoker, when did you quit?: 2017 - Alcohol/Substance Use Hx Alcohol Use: No History of Substance Use: reports: Marijuana - Social History ADL: Support Services Occupation: disabled History of Recent Travel: No History - Admission Reason For Visit: CONGESTIVE HEART FAILURE/RASH/HYPOTENSION - Diagnostics X-ray: Report Reviewed CT Scan: Report Reviewed - General Mental Status: Alert and Oriented, Awake and Alert, Able to Follow Commands Attention: Intact Ability to Follow Directions: Excellent Head/Neck Control: WFL - Hearing Hearing: Normal Speech Evaluation - Communication Primary Language: MONTSERRAT[place] Communication: Yes: Within Normal Limits Oral Expression Ability: Yes: No Impairment - Speech Production Able to Make Needs Known: Yes: WNL Intelligibility: Yes: WNL - Speech Characteristics Voice Loudness: Normal Voice Pitch: Yes: Normal Voice Phonatory-based Quality: Yes: Normal Speech Pattern: Normal Speech Clarity: < 100% Nasal Resonance: Normal Articulation: Yes: Precise - Language/Auditory Comprehension Follows: Yes: 1 Stage Simple Commands - Language/Verbal Expression Able to Respond to Simple Queries: Yes: WNL Able to Communicate Wants and Needs: Yes: WNL Functional Communication Status: Yes: WNL - Swallow Evaluation/Bedside Assessment Current Nutritional Intake: Regular, Thin Liquids Oral Secretions: Yes: WFL Facial Symmetry at Rest: Symmetrical Facial Symmetry on Retraction: Symmetrical Sensation: Normal Against Resistance Opening: Normal Against Resistance Closing: Normal Pucker Lips: Normal Smile: Normal Lingual Movement: Normal, Symmetric Lingual Speed of Movement: Normal Lingual Movement Strgth Against Opposition: Normal Lingual Movement Characteristics: Normal Velopharyngeal Movement: Normal Laryngeal Elevation: WFL Laryngeal Movement: Able to Palpate Rate of Intake: WFL Bolus Size: WFL Labial Seal: WFL Chewing: WFL Oral Prep Time: WFL A-P Transit: WFL Pocketing: None Timing of Swallow: WFL Coughing/Throat Clear: No Change in Voice: No Recommendations - Speech Evaluation, Impression/Plan Impression: Tolerating diet and pmv. However, PMV reportedly not changed since last september, although cleaned daily. Now with intermittent dysfunction. Recommended Therapies: Other (Order new PMV valve at [facility] and replace every 2 months, per PMV protocol on their webside.) - Dysphagia Impressions/Plan Swallowing Skills: WFL Dysphagia Impressions: No Impairment *Silent aspiration: cannot be R/O at bedside
[2018-09-01] MEDS ORDERED: FUROSEMIDE 40 MG TABLET (FP) PO SCH (14:00)
[2018-09-01 15:26] VITALS: BP 133/55; PULSE 59; TEMP 98
--- NOTE | 2018-09-01 16:45 | PN ---
Progress Note (short form) - Note Progress Note: feels better no complaints except she wishes to have pete placed back in as she has rash in sacrum and perineal area. Vital Signs - 24 hr 08/31/18 08/31/18 08/31/18 19:00 19:02 19:55 Temperature Pulse Rate 64 Respiratory 24 H 24 H 25 H Rate Blood Pressure 97/53 L O2 Sat by Pulse 97 Oximetry (%) 08/31/18 08/31/18 08/31/18 22:30 22:31 23:00 Temperature 97.9 F Pulse Rate 56 L 57 L Respiratory 14 22 H Rate Blood Pressure 120/65 O2 Sat by Pulse 98 Oximetry (%) 09/01/18 09/01/18 09/01/18 00:24 04:01 06:00 Temperature 97.9 F Pulse Rate 49 L Respiratory 24 H 20 20 Rate Blood Pressure 120/62 O2 Sat by Pulse Oximetry (%) 09/01/18 09/01/18 09/01/18 06:15 06:50 09:00 Temperature Pulse Rate 54 L 76 Respiratory 22 H Rate Blood Pressure O2 Sat by Pulse 97 95 Oximetry (%) 09/01/18 09/01/18 09/01/18 11:03 11:25 14:24 Temperature 97.7 F 98.0 F Pulse Rate 65 59 L Respiratory 26 H 20 Rate Blood Pressure 123/69 133/55 L O2 Sat by Pulse 96 Oximetry (%) Current Medications Generic Name Dose Route Start Last Admin Trade Name Freq PRN Reason Stop Dose Admin Acetaminophen 1,000 mg 08/28/18 16:04 08/30/18 12:01 Tylenol - PO 1,000 mg Q6H PRN Administration PAIN Albuterol/Ipratropium 1 amp 08/31/18 19:15 09/01/18 12:18 Duoneb - NEB 1 amp Q6H NOELLE Administration Amoxicillin/Clavulanate Potassium 1 tab 08/30/18 17:30 09/01/18 08:52 Augmentin - 875mg Tablet PO 1 tab BID@0800,1730 NOELLE Administration Apixaban 2.5 mg 08/28/18 22:00 09/01/18 10:23 Eliquis - PO 2.5 mg BID NOELLE Administration Aripiprazole 10 mg 08/28/18 10:00 09/01/18 10:23 Abilify PO 10 mg DAILY NOELLE Administration Aspirin 81 mg 08/29/18 10:00 09/01/18 10:23 Asa - PO 81 mg DAILY NOELLE Administration Atorvastatin Calcium 20 mg 08/28/18 22:00 08/31/18 21:49 Lipitor - PO 20 mg HS NOELLE Administration Budesonide/Formoterol Fumarate 2 puff 08/28/18 22:00 09/01/18 10:25 Symbicort 160/4.5mcg - IH 2 inhaler BID NOELLE Administration Clotrimazole 1 applic 08/28/18 22:00 09/01/18 10:24 Lotrisone Cream (Small Tube) TP 1 applic BID NOELLE Administration Docusate Sodium 100 mg 08/28/18 22:00 08/31/18 21:51 Colace - PO Not Given HS NOELLE Escitalopram Oxalate 20 mg 08/29/18 10:00 09/01/18 10:23 Lexapro - PO 20 mg DAILY NOELLE Administration Furosemide 60 mg 09/01/18 14:00 09/01/18 14:51 Lasix - PO 60 mg BID@0600,1400 NOELLE Administration Gabapentin 400 mg 08/28/18 22:00 09/01/18 14:51 Neurontin - PO 400 mg TID NOELLE Administration Lactobacillus Acidophilus 1 tab 08/28/18 22:00 09/01/18 10:23 Bacid - PO 1 tab BID NOELLE Administration Levothyroxine Sodium 25 mcg 08/29/18 07:00 09/01/18 06:12 Synthroid - PO 25 mcg DAILY@0700 NOELLE Administration Mirtazapine 15 mg 08/28/18 22:00 08/31/18 21:49 Remeron - PO 15 mg HS NOELLE Administration Montelukast Sodium 10 mg 08/28/18 22:00 08/31/18 21:49 Singulair - PO 10 mg HS NOELLE Administration Pantoprazole Sodium 40 mg 08/29/18 10:00 09/01/18 10:23 Protonix - PO 40 mg DAILY NOELLE Administration Polyethylene Glycol 17 gm 08/29/18 10:00 09/01/18 10:25 Miralax (For Daily Use) - PO Not Given DAILY NOELLE Sacubitril/Valsartan 1 tab 08/28/18 22:00 09/01/18 10:24 Entresto 24 Mg-26 Mg Tablet PO 1 tab BID NOELLE Administration Senna 2 tab 08/28/18 22:00 08/31/18 21:50 Senna - PO Not Given HS NOELLE Trazodone HCl 100 mg 08/28/18 22:00 08/31/18 21:48 Desyrel - PO 100 mg HS NOELLE Administration trach-trach collar S1 S2 RRR Obese anasarca lungs ronchi+ abd- soft, obese, NT edema+ fungal rash in perineum,, sacrum lateral hip edema +B/L PLAN change to PO Lasix BID- increased dose on po Augmentin dc planning replace pete blood/urine cultures negative legionella negative trach collar as tolerated stable for dc may look into discharge summary as well Problem List - Problems (1) Acute on chronic respiratory failure with hypoxia and hypercapnia Code(s): J96.21 - ACUTE AND CHRONIC RESPIRATORY FAILURE WITH HYPOXIA; J96.22 - ACUTE AND CHRONIC RESPIRATORY FAILURE WITH HYPERCAPNIA (2) CHF (congestive heart failure) Code(s): I50.9 - HEART FAILURE, UNSPECIFIED (3) Diabetes Code(s): E11.9 - TYPE 2 DIABETES MELLITUS WITHOUT COMPLICATIONS (4) Morbid obesity Code(s): E66.01 - MORBID (SEVERE) OBESITY DUE TO EXCESS CALORIES
== END 2018-09-01 17:05 | DRG 208 ==
LOC: JER 11:47 → JERBED 16:05 → JICU 08-26 04:00 → J5S 08-28 16:44
PROVIDERS: ADMIT Internal Medicine; ATTEND Internal Medicine
PROC: 5A1945Z Respiratory Ventilation, 24-96 Consecutive Hours (ICD-10-PCS; principal; 2018-08-25)
DX: J18.9 Pneumonia, unspecified organism (principal); J96.21 Acute and chronic respiratory failure with hypoxia; J96.22 Acute and chronic respiratory failure with hypercapnia; I50.33 Acute on chronic diastolic (congestive) heart failure; J44.1 Chronic obstructive pulmonary disease with (acute) exacerbation; Z68.45 Body mass index [BMI] 70 or greater, adult; Z99.11 Dependence on respirator [ventilator] status; I95.9 Hypotension, unspecified; E66.01 Morbid (severe) obesity due to excess calories; I11.0 Hypertensive heart disease with heart failure; E78.5 Hyperlipidemia, unspecified; Z87.891 Personal history of nicotine dependence; E03.9 Hypothyroidism, unspecified; J44.9 Chronic obstructive pulmonary disease, unspecified; F31.9 Bipolar disorder, unspecified; R56.9 Unspecified convulsions; Z79.01 Long term (current) use of anticoagulants; Z93.0 Tracheostomy status; F12.10 Cannabis abuse, uncomplicated; Z66 Do not resuscitate
CPT/HCPCS: 36415; 71045-TC-FY; 80053; 81003; 82550; 82553; 82803; 82962; 83735; 83880; 84100; 84443; 84484; 84550; 85025; 85027; 85610; 85651; 85730; 86850; 86900; 86901; 87040; 87070; 87086; 87186; 87205; 87804; 87899; 93005; 93010; 93306-TC; 93970-TC; 94002; 94640; 99284-25

== ENCOUNTER 2018-11-07 19:47 | Inpatient (IN) | payer OTHER ==
--- NOTE | 2018-11-07 20:08 | PDOC ---
History of Present Illness - General Stated Complaint: CHEST PAIN Time Seen by Provider: 11/07/18 20:04 - History of Present Illness Initial Comments: 53 yo F with h/o tracheostomy x1 year, long prior h/o smoking, CHF (120 mg Lasix ), chronic hypercapnia, hypoxic respiratory failure, COPD, prior PNA, venous thromboembolism (on Eliquis), HLD, morbid obesity, and hypothyroidism, and extensive psychiatric history, coming from [facility] who was BIBEMS for chest pain, SOB, non-productive cough x 2 days and diffuse body swelling x 3 weeks. When asked if this feels like a CHF or COPD exacerbation, she says "yes, but with more." The chest pain is rated 6/10 after patient received nitroglycerin around 7pm. It is non-radiating. The pain is associated with breathing and she does not note anything that makes it better. Patient reports that she is usually only on the vent at night, but has been on it during the day recently because her saturations have gone as low as 82%. Patient has had a cough which is productive of phlegm into her vent. She is bedridden. No personal or family history of DC. No hemoptysis, no recent surgical history, no hormone use. Reports hematuria, but no dysuria. No fevers or abdominal pain. Past History - Past Medical History Allergies/Adverse Reactions: Allergies Allergy/AdvReac Type Severity Reaction Status Date / Time No Known Allergies Allergy Verified 11/07/18 20:14 Home Medications: Ambulatory Orders Acetaminophen 1,000 mg PO Q6H PRN 10/18/17 Aripiprazole 10 mg PO DAILY 10/18/17 Aspirin 81 mg PO DAILY 10/18/17 Furosemide [Lasix -] 40 mg PO BID 10/18/17 Lactobacillus Acidophilus [Acidophilus] 1 each PO BID 10/18/17 Levothyroxine [Synthroid -] 25 mcg PO DAILY 10/18/17 Mirtazapine 15 mg PO HS 10/18/17 Sennosides [Senna -] 2 tab PO HS tablet 01/18/18 Docusate Sodium [Colace] 100 mg PO HS 01/24/18 Escitalopram Oxalate [Lexapro -] 20 mg PO DAILY 01/24/18 Polyethylene Glycol 3350 [Gavilax] 17 gm PO DAILY 01/24/18 Vit A/Vitamin D3/E/Aloe V/Zinc [Periguard Ointment] 1 applic TP BID 01/24/18 Pantoprazole Sodium [Protonix -] 40 mg PO DAILY #60 tablet.ec 05/20/18 Clotrimazole/Betamet Diprop [Lotrisone -] 1 applic TP BID 06/02/18 Apixaban [Eliquis -] 2.5 mg PO BID 08/25/18 Budesonide/Formeterol Fumarate [SYMBICORT 160/4.5mcg -] 2 inh PO BID 08/25/18 Gabapentin [Neurontin -] 400 mg PO Q8H 08/25/18 Montelukast Na [Singulair -] 10 mg PO HS 08/25/18 Sacubitril/Valsartan [Entresto 24 mg-26 mg Tablet] 1 each PO BID 08/25/18 traZODone HCL [Desyrel -] 100 mg PO HS 08/25/18 Albuterol 2.5/Ipratropium 0.5 [Duoneb -] 1 amp NEB Q6H PRN amp 08/30/18 Multivitamin [One-Daily Multi-Vitamin] 1 each PO DAILY #30 tablet 09/01/18 Nystatin/Triamcinolone Top Oin [Mycolog II -] 1 applic TP BID #30 applic Furosemide [Lasix -] 40 mg PO BID@0600,1400 11/07/18 Cardiac Disorders: (heart failure- 2013) COPD: Yes CHF: Yes Diabetes: Yes HTN: Yes Hypercholesterolemia: Yes Psychiatric Problems: Yes (bipolar) Seizures: Yes Thyroid Disease: Yes - Surgical History Appendectomy: No Gastric Stapling: No - Immunization History Immunization Up to Date: Yes - Suicide/Smoking/Psychosocial Hx Smoking Status: No Smoking History: Former smoker Have you smoked in the past 12 months: No Number of Cigarettes Smoked Daily: 5 If you are a former smoker, when did you quit?: 2017 'Breaking Loose' booklet given: 05/11/18 Hx Alcohol Use: No Drug/Substance Use Hx: No Substance Use Type: None Hx Substance Use Treatment: No Review of Systems - Review of Systems Comments:: Constitutional: no fever, "feeling warm" HEENT: no throat pain, no dysphagia Cardiovascular: +chest pain, no palpitations Respiratory: +cough, +shortness of breath Gastrointestinal: no abdominal pain, no vomiting Genitourinary: no dysuria, +hematuria Musculoskeletal: no myalgia, no arthralgia Skin: no rash, +edema Neurologic: no headache, no weakness *Physical Exam - Physical Exam Comments: General: Awake, alert, and fully oriented, in no acute distress, morbidly obese Head: No signs of trauma Eyes: EOMI, sclera anicteric ENT: Moist mucus membranes Neck: Normal ROM, supple Lungs: Diffuse wheezes present, Tracheostomy in place Cardio: Regular rhythm, S1 and S2 present Abdomen: Soft, nontender. No guarding, no rebound, no masses Extremities: Normal range of motion, Distal pulses present, all four limbs are edematous SKIN: Warm, Dry, normal turgor Neurologic: Cranial nerves II through XII grossly intact. Normal speech ED Treatment Course - LABORATORY CBC & Chemistry Diagram: 11/07/18 21:20 11/07/18 20:38 Medical Decision Making - Medical Decision Making 53 yo F with h/o tracheostomy x1 year, long prior h/o smoking, CHF (120 mg Lasix ), chronic hypercapnia, hypoxic respiratory failure, COPD, prior PNA, venous thromboembolism (on Eliquis), HLD, morbid obesity, and hypothyroidism, and extensive psychiatric history, coming from [facility] who was BIBEMS for chest pain, SOB, non-productive cough x 2 days and diffuse body swelling x 3 weeks. DDX including but not limited to ACS, CHF exacerbation, COPD exacerbation, PNA, MSK 3 duonebs 11/07/18 20:44 CXR looks unchanged from previous, however limited study due to body habitus and positioning, my impression EKG: rate 64, QTc 414, NSR, incomplete RBBB Patient still with shortness of breath complaints. Another 3 duonebs ordered. 11/07/18 22:03 CBC WBC 6.3 K/mm3 (4.0-10.0) 11/07/18 21:20 RBC 3.39 M/mm3 (3.60-5.2) L 11/07/18 21:20 Hgb 8.9 GM/dL (10.7-15.3) L 11/07/18 21:20 Hct 28.0 % (32.4-45.2) L 11/07/18 21:20 MCV 82.6 fl (80-96) 11/07/18 21:20 MCH 26.2 pg (25.7-33.7) 11/07/18 21:20 MCHC 31.7 g/dl (32.0-36.0) L 11/07/18 21:20 RDW 15.4 % (11.6-15.6) 11/07/18 21:20 Plt Count 257 K/MM3 (134-434) D 11/07/18 21:20 MPV 7.4 fl (7.5-11.1) L D 11/07/18 21:20 Absolute Neuts (auto) 4.3 K/mm3 (1.5-8.0) 11/07/18 21:20 Neutrophils % 68.7 % (42.8-82.8) 11/07/18 21:20 Lymphocytes % 24.3 % (8-40) 11/07/18 21:20 Monocytes % 4.1 % (3.8-10.2) 11/07/18 21:20 Eosinophils % 2.5 % (0-4.5) 11/07/18 21:20 Basophils % 0.4 % (0-2.0) 11/07/18 21:20 Nucleated RBC % 0 % (0-0) 11/07/18 21:20 No leukocytosis Hgb at patient's baseline CMP Sodium 140 mmol/L (136-145) 11/07/18 20:38 Potassium 4.2 mmol/L (3.5-5.1) 11/07/18 20:38 Chloride 96 mmol/L (98-107) L 11/07/18 20:38 Carbon Dioxide 42 mmol/L (21-32) H 11/07/18 20:38 Anion Gap 2 MMOL/L (8-16) L 11/07/18 20:38 BUN 26 mg/dL (7-18) H 11/07/18 20:38 Creatinine 0.7 mg/dL (0.55-1.3) 11/07/18 20:38 Creat Clearance w eGFR 87.53 (>60) 11/07/18 20:38 Random Glucose 108 mg/dL (74-106) H 11/07/18 20:38 Calcium 8.8 mg/dL (8.5-10.1) 11/07/18 20:38 Total Bilirubin 0.3 mg/dL (0.2-1) 11/07/18 20:38 AST 20 U/L (15-37) 11/07/18 20:38 ALT 34 U/L (13-61) 11/07/18 20:38 Alkaline Phosphatase 95 U/L (45-117) 11/07/18 20:38 Creatine Kinase 119 U/L (26-192) 11/07/18 20:38 Troponin I < 0.02 ng/ml (0.00-0.05) 11/07/18 20:38 B-Natriuretic Peptide 57.2 pg/ml (5-125) 11/07/18 20:38 Total Protein 6.4 g/dl (6.4-8.2) 11/07/18 20:38 Albumin 2.9 g/dl (3.4-5.0) L 11/07/18 20:38 Electrolytes unremarkable Tpn undetectable BNP within normal limits UA with 3+ LE, 1896 bacteria and 12 WBC No previous positive urine cultures Rocephin ordered 11/07/18 22:15 Patient is coming from [facility] Hospitalist paged for admission 11/07/18 22:[address] Henderson who accepted patient for telemetry observation 125 methylprednisolone for COPD exacerbation, 40mg lasix ordered for fluid overload 11/07/18 23:23 11/07/18 23:28 *DC/Admit/Observation/Transfer Diagnosis at time of Disposition: COPD exacerbation, Atypical chest pain UTI (urinary tract infection) Qualifiers: Urinary tract infection type: catheter-associated UTI Indwelling urinary catheter type: indwelling urethral catheter Encounter type: initial encounter Qualified Code(s): T83.511A - Infection and inflammatory reaction due to indwelling urethral catheter, initial encounter - Discharge Dispostion Condition at time of disposition: Guarded Decision to Admit order: Yes - Referrals - Patient Instructions - Post Discharge Activity
[2018-11-07] MEDS ORDERED: ALBUTEROL SO4 2.5/IPRATROPIUM 0.5 INH SOL 3 ML VIAL.NEB. NEB ONE ×2 (20:39→22:04)
[2018-11-07 21:36] LABS: BASO % 0.4 % (0-2.0); EOS % 2.5 % (0-4.5); HEMOGLOBIN 8.9 GM/dL (10.7-15.3); LYMPH % 24.3 % (8-40); MCH 26.2 pg (25.7-33.7); MCHC 31.7 g/dl (32.0-36.0); MEAN CELL VOLUME 82.6 fl (80-96); MEAN PLT VOLUME 7.4 fl (7.5-11.1); MONO % 4.1 % (3.8-10.2); NEUT % 68.7 % (42.8-82.8); PLATELET COUNT 257 K/MM3 (134-434); RBC 3.39 M/mm3 (3.60-5.2); RDW 15.4 % (11.6-15.6); WHITE BLOOD COUNT 6.3 K/mm3 (4.0-10.0)
[2018-11-07 21:38] LABS: EPI CELLS 18.6 /HPF (0-5/HPF); PH,URINE >= 9.0 (5.0-8.0); URINE APPEARANCE TURBID; URINE BACTERIA 1896.7 /hpf (NEGATIVE); URINE BILIRUBIN NEGATIVE (NEGATIVE); URINE CASTS 20 /lpf (0-8); URINE COLOR YELLOW; URINE GLUCOSE (UA) NEGATIVE (NEGATIVE); URINE KETONE NEGATIVE (NEGATIVE); URINE LEUK ESTERASE 3+ (NEGATIVE); URINE NITRITE NEGATIVE (NEGATIVE); URINE PROTEIN 2+ (NEGATIVE); URINE RBC 26 /hpf (0-4); URINE UROBILINOGEN 0.2 mg/dL (0.2-1.0); URINE WBC 12 /hpf (0-5)
[2018-11-07 22:10] LABS: INR 1.09 (0.83-1.09); PROTHROMBIN TIME (PATIENT) 12.9 SEC (9.7-13.0)
[2018-11-07 22:11] LABS: ALBUMIN 2.9 g/dl (3.4-5.0); ALK PHOS 95 U/L (45-117); ANION GAP 2 MMOL/L (8-16); BILIRUBIN,TOTAL 0.3 mg/dL (0.2-1); BLOOD UREA NITROGEN 26 mg/dL (7-18); CALCIUM 8.8 mg/dL (8.5-10.1); CHLORIDE 96 mmol/L (98-107); CO2 42 mmol/L (21-32); CREATININE 0.7 mg/dL (0.55-1.3); GLUCOSE,RANDOM 108 mg/dL (74-106); N-TERMINAL BNP 57.2 pg/ml (5-125); POTASSIUM 4.2 mmol/L (3.5-5.1); SGOT/AST 20 U/L (15-37); SGPT/ALT 34 U/L (13-61); SODIUM 140 mmol/L (136-145); TOT PROT 6.4 g/dl (6.4-8.2)
[2018-11-07 22:12] LABS: ACTIVATED PTT 32.6 SECONDS (25.2-36.5)
[2018-11-07] MEDS ORDERED: CEFTRIAXONE 1,000 MG in DEXTROSE 5%-WATER - 50 ML IVPB ONE (22:15)
[2018-11-07] MEDS ORDERED: CEFTRIAXONE 1 GM/50 ML BAG ONE ×2 (22:26→22:28)
[2018-11-07 22:45] LABS: ARTERIAL BLOOD GAS BASE EXCESS 12.3 meq/l (-2-2); ARTERIAL BLOOD GAS PCO2 68.4 mmHg (35-45); ARTERIAL BLOOD GAS PO2 107 mmHg (80-105); ARTERIAL BLOOD GAS pH 7.38 (7.35-7.45)
[2018-11-07 22:47] LABS: ALLENS TEST POSITIVE; CARBOXYHEMOGLOBIN 0 % (0-2)
[2018-11-07] MEDS ORDERED: methylPREDNISolone NA SUCC 125 MG/2 ML VIAL IVPB ONE (23:24)
[2018-11-07] MEDS ORDERED: FUROSEMIDE 40 MG/4 ML INJECTABLE VIAL IVPUSH ONE (23:24)
[2018-11-07] MEDS ORDERED: methylPREDNISolone NA SUCC 125 MG/2 ML VIAL ONE (23:38)
[2018-11-07] MEDS ORDERED: FUROSEMIDE 40 MG/4 ML INJECTABLE VIAL ONE (23:38)
--- NOTE | 2018-11-08 00:01 | HP ---
CHIEF COMPLAINT: chest pain PCP: Candice Rockwell HISTORY OF PRESENT ILLNESS: 53 yo morbidly obese woman, bedbound, with chronic resp failure-vent dependent brought in from [facility] for chest pain and and SOB x2 days and generalized edema. Chest pain is intermittent and sharp, occurs at rest. Patient denied any subjective fevers. She reports that she is on trach collar usually and on vent intermittently - at night. ER course was notable for: (1) bronchodilators (2) methylprednisone (3) Recent Travel: no PAST MEDICAL HISTORY: long prior h/o smoking, CHF (120 mg Lasix), chronic hypercapnia, hypoxic respiratory failure, COPD, prior PNA, venous thromboembolism (on Eliquis), HLD, morbid obesity, and hypothyroidism, and extensive psychiatric history, PAST SURGICAL HISTORY: tracheostomy x1 year Social History: Smoking: prior long history of smoking Alcohol: no Drugs: marijuana Family History: Father (: PNA), Mother (: COPD ) Allergies No Known Allergies Allergy (Verified 11/07/18 20:14) HOME MEDICATIONS: Home Medications Medication Instructions Recorded Acetaminophen 1,000 mg PO Q6H PRN 10/18/17 Aripiprazole 10 mg PO DAILY 10/18/17 Aspirin 81 mg PO DAILY 10/18/17 Furosemide [Lasix -] 40 mg PO BID 10/18/17 Lactobacillus Acidophilus 1 each PO BID 10/18/17 [Acidophilus] Levothyroxine [Synthroid -] 25 mcg PO DAILY 10/18/17 Mirtazapine 15 mg PO HS 10/18/17 Sennosides [Senna -] 2 tab PO HS tablet 01/18/18 Docusate Sodium [Colace] 100 mg PO HS 01/24/18 Escitalopram Oxalate [Lexapro -] 20 mg PO DAILY 01/24/18 Polyethylene Glycol 3350 [Gavilax] 17 gm PO DAILY 01/24/18 Vit A/Vitamin D3/E/Aloe V/Zinc 1 applic TP BID 01/24/18 [Periguard Ointment] Pantoprazole Sodium [Protonix -] 40 mg PO DAILY #60 tablet.ec 05/20/18 Clotrimazole/Betamet Diprop 1 applic TP BID 06/02/18 [Lotrisone -] Apixaban [Eliquis -] 2.5 mg PO BID 08/25/18 Budesonide/Formeterol Fumarate 2 inh PO BID 08/25/18 [SYMBICORT 160/4.5mcg -] Gabapentin [Neurontin -] 400 mg PO Q8H 08/25/18 Montelukast Na [Singulair -] 10 mg PO HS 08/25/18 Sacubitril/Valsartan [Entresto 24 1 each PO BID 08/25/18 mg-26 mg Tablet] traZODone HCL [Desyrel -] 100 mg PO HS 08/25/18 Albuterol 2.5/Ipratropium 0.5 1 amp NEB Q6H PRN amp 08/30/18 [Duoneb -] Multivitamin [One-Daily 1 each PO DAILY #30 tablet 09/01/18 Multi-Vitamin] Nystatin/Triamcinolone Top Oin 1 applic TP BID #30 applic 09/01/18 [Mycolog II -] Furosemide [Lasix -] 40 mg PO BID@0600,1400 11/07/18 REVIEW OF SYSTEMS CONSTITUTIONAL: Absent: fever, chills, diaphoresis, malaise, loss of appetite, weight change present- generalized weakness, HEENT: Absent: rhinorrhea, nasal congestion, throat pain, throat swelling, difficulty swallowing, mouth swelling, ear pain, eye pain, visual changes CARDIOVASCULAR: Absent: syncope, palpitations, irregular heart rate, lightheadedness, peripheral edema Present- chest pain, RESPIRATORY: Absent: cough, dyspnea with exertion, orthopnea, wheezing, stridor, hemoptysis present- shortness of breath, GASTROINTESTINAL: Absent: abdominal pain, abdominal distension, nausea, vomiting, diarrhea, constipation, melena, hematochezia GENITOURINARY: Absent: dysuria, frequency, urgency, hesitancy, hematuria, flank pain, genital pain MUSCULOSKELETAL: Absent: myalgia, arthralgia, joint swelling, back pain, neck pain SKIN: Absent: rash, itching, pallor HEMATOLOGIC/IMMUNOLOGIC: Absent: easy bleeding, easy bruising, lymphadenopathy, frequent infections ENDOCRINE: Absent: unexplained weight gain, unexplained weight loss, heat intolerance, cold intolerance NEUROLOGIC: Absent: headache, focal weakness or paresthesias, dizziness, unsteady gait, seizure, mental status changes, bladder or bowel incontinence PSYCHIATRIC: Absent: anxiety, depression, suicidal or homicidal ideation, hallucinations. PHYSICAL EXAMINATION Vital Signs - 24 hr 11/07/18 11/07/18 20:00 20:25 Temperature 98.3 F Pulse Rate 67 Respiratory 20 18 Rate Blood Pressure 115/58 L O2 Sat by Pulse 100 Oximetry (%) GENERAL: Awake, alert, and fully oriented, in no acute distress- on mechanical ventilation through trach collar HEAD: Normal with no signs of trauma. EYES: Pupils equal, round and reactive to light, extraocular movements intact, sclera anicteric, conjunctiva clear. No lid lag. EARS, NOSE, THROAT: Ears normal, nares patent, oropharynx clear without exudates. Moist mucous membranes. NECK: + tracheostomy LUNGS: Breath sounds equal, clear to auscultation bilaterally. No wheezes HEART: Regular rate and rhythm, normal S1 and S2 without murmur, rub or gallop. ABDOMEN: Soft, nontender, not distended, normoactive bowel sounds, no guarding, no rebound, no masses. No hepatomegaly or splenomegaly. MUSCULOSKELETAL: Normal range of motion at all joints. No bony deformities or tenderness. No CVA tenderness. UPPER EXTREMITIES: 2+ pulses, warm, well-perfused. No cyanosis. No clubbing. No peripheral edema. LOWER EXTREMITIES: 2+ pulses, warm, well-perfused. No calf tenderness. No peripheral edema. NEUROLOGICAL: Cranial nerves II-XII intact. Normal speech. Normal gait. PSYCHIATRIC: Cooperative. Good eye contact. Appropriate mood and affect. SKIN: Warm, dry, normal turgor, no rashes or lesions noted, normal capillary refill. Laboratory Results - last 24 hr 11/07/18 11/07/18 11/07/18 20:38 21:20 21:20 WBC 6.3 RBC 3.39 L Hgb 8.9 L Hct 28.0 L MCV 82.6 MCH 26.2 MCHC 31.7 L RDW 15.4 Plt Count 257 D MPV 7.4 L D Absolute Neuts (auto) 4.3 Neutrophils % 68.7 Lymphocytes % 24.3 Monocytes % 4.1 Eosinophils % 2.5 Basophils % 0.4 Nucleated RBC % 0 PT with INR 12.90 INR 1.09 PTT (Actin FS) 32.6 Puncture Site ABG pH ABG pCO2 at Pt Temp ABG pO2 at Pt Temp ABG HCO3 ABG O2 Sat (Measured) ABG O2 Content ABG Base Excess Harris Test Carboxyhemoglobin Methemoglobin Oxygen Flow Rate Pressure Support Vent Sodium 140 Potassium 4.2 Chloride 96 L Carbon Dioxide 42 H Anion Gap 2 L BUN 26 H Creatinine 0.7 Creat Clearance w eGFR 87.53 Random Glucose 108 H Calcium 8.8 Total Bilirubin 0.3 AST 20 ALT 34 Alkaline Phosphatase 95 Creatine Kinase 119 Troponin I < 0.02 B-Natriuretic Peptide 57.2 Total Protein 6.4 Albumin 2.9 L Urine Color Urine Appearance Urine pH Ur Specific [place] Urine Protein Urine Glucose (UA) Urine Ketones Urine Blood Urine Nitrite Urine Bilirubin Urine Urobilinogen Ur Leukocyte Esterase Urine WBC (Auto) Urine RBC (Auto) Urine Casts (Auto) U Epithel Cells (Auto) U Sm Round Cell (Auto) Urine Crystals (Auto) Urine Bacteria (Auto) 11/07/18 11/07/18 21:20 22:32 WBC RBC Hgb Hct MCV MCH MCHC RDW Plt Count MPV Absolute Neuts (auto) Neutrophils % Lymphocytes % Monocytes % Eosinophils % Basophils % Nucleated RBC % PT with INR INR PTT (Actin FS) Puncture Site Left radial ABG pH 7.38 ABG pCO2 at Pt Temp 68.4 H ABG pO2 at Pt Temp 107 H ABG HCO3 39.2 H ABG O2 Sat (Measured) 96.0 ABG O2 Content 13.0 L ABG Base Excess 12.3 H Harris Test Positive Carboxyhemoglobin 0 Methemoglobin 0.0 Oxygen Flow Rate 50 Pressure Support Vent 12/300 Sodium Potassium Chloride Carbon Dioxide Anion Gap BUN Creatinine Creat Clearance w eGFR Random Glucose Calcium Total Bilirubin AST ALT Alkaline Phosphatase Creatine Kinase Troponin I B-Natriuretic Peptide Total Protein Albumin Urine Color Yellow Urine Appearance Turbid Urine pH >= 9.0 H D Ur Specific [place] 1.016 Urine Protein 2+ H Urine Glucose (UA) Negative Urine Ketones Negative Urine Blood 2+ H Urine Nitrite Negative Urine Bilirubin Negative Urine Urobilinogen 0.2 Ur Leukocyte Esterase 3+ H Urine WBC (Auto) 12 Urine RBC (Auto) 26 Urine Casts (Auto) 20 U Epithel Cells (Auto) 18.6 U Sm Round Cell (Auto) None Urine Crystals (Auto) Urine Bacteria (Auto) 1896.7 Imaging studies reviewed ekg- sinus rhythm, RBBB ASSESSMENT/PLAN: #Atypical chest pain in morbidly obese, bedbound woman- EKG did not suggest ischemic changes and troponin wa negative x1. Probably CHF exacerbation as well as patient has anasarca, appears to have pulm vascular congestion. -monitor on telemetry -trend troponin -NGL SL prn -echo -cardiology evaluation -i/o -daily weights -ASA -statin -lasix IV 40mg -bblocker -ACEi #Chronic respiratory failure/ COPD exacerbation -patient is on mechanical ventilation- 50% fio2 at the moment, saturating in high 90s -duonebs q6hrs standing for now -prednisone 40mg po daily -azithromycin 500mg IV daily -pulmonary consult -ABG -adjust ventilator setting as per abg #Normocytic anemia #Hypothryoidism -c/w levoythyroxine home dose -tsh #Psych d/o -will c/w home regimen #Hx of DVT -c/w home dose apixaban Visit type - Emergency Visit Emergency Visit: Yes ED Registration Date: 11/08/18 Care time: The patient presented to the Emergency Department on the above date and was hospitalized for further evaluation of their emergent condition. - New Patient This patient is new to me today: Yes Date on this admission: 11/08/18 - Critical Care Critical Care patient: No
--- NOTE | 2018-11-08 01:57 | PDOC ---
Documentation entered by Petra Watson SCRIBE, acting as scribe for Mary Hallman MD. Mary Hallman MD: This documentation has been prepared by the Shirley yee Nirvannie, SCRIBE, under my direction and personally reviewed by me in its entirety. I confirm that the documentation accurately reflects all work, treatment, procedures, and medical decision making performed by me. Attending Attestation - Resident Resident Name: Elizabeth Cerna - ED Attending Attestation I have performed the following: I have examined & evaluated the patient, The case was reviewed & discussed with the resident, I agree w/resident's findings & plan - HPI HPI: 11/07/18 21:04 Morbidly obese 53-year-old female brought in by ambulance from [facility] for increasing shortness of breath. She is vent dependent patient and has an intact trach. She is alert and conversant. - Physicial Exam PE: 11/07/18 22:37 morbidly obese 53 yo female who is chronically vent depant with trach intact had chest pain at senior care today head ncat neck trach site ,no drainage,no erythema lung scant exp wheezing cvs [id number] abd protuberant w pannus ext edematous LE, no erythema skin warm and dry neuro alert,conversant psych sl anxious - Medical Decision Making 11/07/18 23:23 ADMISSION chest pain , r/o [place], UTI, chronic copd w exacerbation -pt received levaquin, bronchodilators hospitalist accepted
[2018-11-08] MEDS ORDERED: NITROGLYCERIN SUBLINGUAL 1/150 0.4 MG TAB SL PRN (02:28)
[2018-11-08] MEDS ORDERED: AZITHROMYCIN IVPB 500 MG/250 ML BAG IVPB ONE (03:58)
[2018-11-08] MEDS ORDERED: FUROSEMIDE 40 MG/4 ML INJECTABLE VIAL ONE (03:59)
[2018-11-08] MEDS ORDERED: AZITHROMYCIN IVPB 500 MG in DEXTROSE 5%-WATER - 250 ML IVPB SCH (04:00)
[2018-11-08] MEDS: FUROSEMIDE 40 MG/4 ML INJECTABLE VIAL IVPUSH SCH ×2 (06:04→14:38)
[2018-11-08] MEDS ORDERED: GABAPENTIN 100 MG CAPSULE (FP) ONE (06:07)
[2018-11-08] MEDS: GABAPENTIN 400 MG CAPSULE (FP) PO SCH ×3 (06:11→23:12)
[2018-11-08] MEDS ORDERED: LEVOTHYROXINE NA 25 MCG TABLET (FP) ONE (06:33)
[2018-11-08] MEDS: LEVOTHYROXINE NA 25 MCG TABLET (FP) PO SCH (06:36)
[2018-11-08 08:38] LABS: BASO % 0.2 % (0-2.0); EOS % 0.1 % (0-4.5); HEMATOCRIT 30.3 % (32.4-45.2); HEMOGLOBIN 9.6 GM/dL (10.7-15.3); LYMPH % 14.9 % (8-40); MCHC 31.8 g/dl (32.0-36.0); MEAN CELL VOLUME 81.7 fl (80-96); MEAN PLT VOLUME 7.6 fl (7.5-11.1); MONO % 0.5 % (3.8-10.2); NEUT % 84.3 % (42.8-82.8); PLATELET COUNT 280 K/MM3 (134-434); RDW 15.3 % (11.6-15.6); WHITE BLOOD COUNT 6.3 K/mm3 (4.0-10.0)
[2018-11-08 08:49] LABS: ALBUMIN 3.1 g/dl (3.4-5.0); ALK PHOS 105 U/L (45-117); ANION GAP 7 MMOL/L (8-16); BILIRUBIN,TOTAL 0.3 mg/dL (0.2-1); BLOOD UREA NITROGEN 24 mg/dL (7-18); CALCIUM 9.1 mg/dL (8.5-10.1); CHLORIDE 96 mmol/L (98-107); CO2 36 mmol/L (21-32); CREATININE 0.7 mg/dL (0.55-1.3); GLUCOSE,RANDOM 152 mg/dL (74-106); POTASSIUM 4.3 mmol/L (3.5-5.1); SGOT/AST 16 U/L (15-37); SGPT/ALT 33 U/L (13-61); SODIUM 138 mmol/L (136-145)
[2018-11-08] MEDS: ALBUTEROL SO4 2.5/IPRATROPIUM 0.5 INH SOL 3 ML VIAL.NEB. NEB SCH ×3 (09:45→21:30)
[2018-11-08] MEDS ORDERED: ALBUTEROL SO4 2.5/IPRATROPIUM 0.5 INH SOL 3 ML VIAL.NEB. NEB ONE ×2 (09:46→14:09)
--- NOTE | 2018-11-08 09:53 | EKG ---
Test Reason : Blood Pressure : / mmHG Vent. Rate : 064 BPM Atrial Rate : 064 BPM P-R Int : 164 ms QRS Dur : 114 ms QT Int : 402 ms P-R-T Axes : 032 002 033 degrees QTc Int : 414 ms NORMAL SINUS RHYTHM INCOMPLETE RIGHT BUNDLE BRANCH BLOCK BORDERLINE ECG WHEN COMPARED WITH ECG OF 25-AUG-2018 12:21, NO SIGNIFICANT CHANGE WAS FOUND Confirmed by STEVIE RUBI MD ([id number]) on 11/08/2018 9:53:01 AM Referred By: Confirmed By:STEVIE RUBI MD
[2018-11-08] MEDS ORDERED: HEPARIN NA (PORCINE) 5,000 UNITS/ML 1ML VIAL SQ SCH (10:00)
[2018-11-08] MEDS ORDERED: FUROSEMIDE 40 MG/4 ML INJECTABLE VIAL IVPUSH SCH (10:00)
[2018-11-08] MEDS ORDERED: predniSONE 20 MG TABLET (UD) PO SCH (10:00)
[2018-11-08] MEDS: APIXABAN 2.5 MG TABLET PO SCH ×2 (10:19→23:12)
[2018-11-08] MEDS: ARIPiprazole 10 MG TABLET PO SCH (10:19)
[2018-11-08] MEDS: ASPIRIN 81 MG CHEWABLE TABLETS PO SCH (10:19)
[2018-11-08] MEDS: LISINOPRIL 10 MG TABLET (FP) PO SCH (10:20)
[2018-11-08] MEDS: METOPROLOL TARTRATE 25 MG TABLET (FP) PO SCH ×2 (10:20→23:12)
[2018-11-08] MEDS: PANTOPRAZOLE 40 MG TABLET (FP) PO SCH (10:20)
[2018-11-08] MEDS: ESCITALOPRAM OXALATE 20 MG TABLET (FP) PO SCH (10:20)
[2018-11-08] MEDS: MULTIVITAMINS (DAILY MVI) TABLET (FP) PO SCH (10:20)
--- NOTE | 2018-11-08 12:13 | ECHO ---
Name: SEKOU EVANS Exam:Adult Echocardiogram Study Date: 11/08/2018 09:04 AM Age: 53 yrs Reason For Study: FLUID OVERLOAD EVALUATE FOR CHF Height: 61 in Weight: 400 lb BSA: 2.5 m2 MMode/2D Measurements & Calculations IVSd: 1.1 cm Ao root diam: 2.3 cm LVIDd: 5.7 cm LA dimension: 3.9 cm LVIDs: 3.7 cm LVPWd: 1.0 cm EDV(Teich): 160.4 ml LVOT diam: 2.2 cm ESV(Teich): 58.6 ml Doppler Measurements & Calculations MV E max naya: 91.6 cm/sec Ao V2 max: 154.6 cm/sec MV A max naya: 40.6 cm/sec Ao max P.6 mmHg MV E/A: 2.3 ULYSSES(V,D): 3.0 cm2 LV V1 max P.4 mmHg SV(LVOT): 88.4 ml LV V1 mean P.5 mmHg LV V1 max: 126.5 cm/sec LV V1 mean: 100.4 cm/sec LV V1 VTI: 24.0 cm TR max naya: 189.9 cm/sec PI end-d naya: 109.7 cm/sec TR max P.4 mmHg Procedure The study was technically limited with all images being suboptimal in quality. Left Ventricle The left ventricle is mildly dilated. Left ventricular systolic function is low normal. Ejection Frac tion = 55-60%. Regional wall motion abnormalities cannot be excluded due to limited visualization. Right Ventricle The right ventricle is not well visualized. Atria The left atrium is borderline dilated. Right atrium not well visualized. Mitral Valve The mitral valve is not well visualized. There is no mitral regurgitation noted. Tricuspid Valve The tricuspid valve is not well visualized. There is trace tricuspid regurgitation. There was insuffi cient TR detected to calculate RV systolic pressure. Aortic Valve The aortic valve is not well visualized. The aortic valve opens well. No hemodynamically significant valvular aortic stenosis. No aortic regurgitation is present. Pulmonic Valve The pulmonic valve is not well visualized. There is no pulmonic valvular regurgitation. Great Vessels The aortic root is normal size. Pericardium/Pleura There is no pericardial effusion. Interpretation Summary Compared to the prior echo report on 08/26/2018, there is no significant change. The left atrium is b orderline dilated. The left ventricle is mildly dilated. Left ventricular systolic function is low normal. Ejection Fraction = 55-60%. There is trace tricuspid regurgitation. Jacob Negron MD 11/08/2018 12:13 PM
--- NOTE | 2018-11-08 12:17 | CON.PULM ---
Consult Consult Specialty:: PULMONARY Referred by:: Dr Rockwell Reason for Consultation:: shortness of breath - History of Present Illness Chief Complaint: shortness of breath History of Present Illness: 53yo female with h/o COPD, chronic hypoxic and hypercapneic respiratory failure s/p tracheostomy, morbid obesity, LV diastolic dysfunction, h/o DVT, hyperlipidemia, hypothyroidism, bipolar disorder, depression who was transferred from the longterm for worsening shortness of breath. She states she has been experiencing more dyspnea for the past week along with chest pain. Also reports increased swelling for the past week. Normally on trach collar during the day and vented at night but has been requiring more vent support recently. No subjective fevers but with chills. Also with increased nonproductive cough and wheezing. - History Source History Provided By: Patient, Medical Record Limitations to Obtaining History: Clinical Condition - Past Medical History Pulmonary: Yes: COPD, O2 Dependent, Pneumonia Gastrointestinal: Yes: Other (colon polyps) Psych: Yes: Bipolar Endocrine: Yes: Diabetes Mellitus - Alcohol/Substance Use Hx Alcohol Use: No History of Substance Use: reports: Marijuana - Smoking History Smoking history: Former smoker Have you smoked in the past 12 months: No Aproximately how many cigarettes per day: 5 If you are a former smoker, when did you quit?: 2017 - Social History Usual Living Arrangement: [facility] ADL: Support Services Occupation: disabled History of Recent Travel: No Home Medications - Allergies Allergies/Adverse Reactions: Allergies Allergy/AdvReac Type Severity Reaction Status Date / Time No Known Allergies Allergy Verified 11/07/18 20:14 - Home Medications Home Medications: Ambulatory Orders Acetaminophen 1,000 mg PO Q6H PRN 10/18/17 Aripiprazole 10 mg PO DAILY 10/18/17 Aspirin 81 mg PO DAILY 10/18/17 Furosemide [Lasix -] 40 mg PO BID 10/18/17 Lactobacillus Acidophilus [Acidophilus] 1 each PO BID 10/18/17 Levothyroxine [Synthroid -] 25 mcg PO DAILY 10/18/17 Mirtazapine 15 mg PO HS 10/18/17 Sennosides [Senna -] 2 tab PO HS tablet 01/18/18 Docusate Sodium [Colace] 100 mg PO HS 01/24/18 Escitalopram Oxalate [Lexapro -] 20 mg PO DAILY 01/24/18 Polyethylene Glycol 3350 [Gavilax] 17 gm PO DAILY 01/24/18 Vit A/Vitamin D3/E/Aloe V/Zinc [Periguard Ointment] 1 applic TP BID 01/24/18 Pantoprazole Sodium [Protonix -] 40 mg PO DAILY #60 tablet.ec 05/20/18 Clotrimazole/Betamet Diprop [Lotrisone -] 1 applic TP BID 06/02/18 Apixaban [Eliquis -] 2.5 mg PO BID 08/25/18 Budesonide/Formeterol Fumarate [SYMBICORT 160/4.5mcg -] 2 inh PO BID 08/25/18 Gabapentin [Neurontin -] 400 mg PO Q8H 08/25/18 Montelukast Na [Singulair -] 10 mg PO HS 08/25/18 Sacubitril/Valsartan [Entresto 24 mg-26 mg Tablet] 1 each PO BID 08/25/18 traZODone HCL [Desyrel -] 100 mg PO HS 08/25/18 Albuterol 2.5/Ipratropium 0.5 [Duoneb -] 1 amp NEB Q6H PRN amp 08/30/18 Multivitamin [One-Daily Multi-Vitamin] 1 each PO DAILY #30 tablet 09/01/18 Nystatin/Triamcinolone Top Oin [Mycolog II -] 1 applic TP BID #30 applic Furosemide [Lasix -] 40 mg PO BID@0600,1400 11/07/18 Family Disease History - Family Disease History Family Disease History: Other: Father (: PNA), Mother (: COPD ) Review of Systems - Review of Systems Constitutional: reports: Chills, Malaise, Weakness. denies: Fever Eyes: denies: Recent Change in Vision HENT: denies: Nasal Congestion, Throat Pain Neck: denies: Tenderness Cardiovascular: reports: Chest Pain, Edema, Shortness of Breath Respiratory: reports: Cough, SOB, Wheezing. denies: Hemoptysis Gastrointestinal: denies: Abdominal Pain, Nausea, Vomiting Genitourinary: denies: Dysuria, Hematuria Neurological: denies: Dizziness, Headache Endocrine: denies: Unexplained Weight Loss Physical Exam Vital Sings: Vital Signs Temperature 98.0 F 11/08/18 06:50 Pulse Rate 55 L 11/08/18 10:22 Respiratory Rate 18 11/08/18 11:25 Blood Pressure 118/64 11/08/18 10:22 O2 Sat by Pulse Oximetry (%) 96 11/08/18 10:22 Constitutional: Yes: Anxious Eyes: Yes: Conjunctiva Clear, EOM Intact HENT: Yes: Atraumatic, Normocephalic Neck: Yes: Supple, Trachea Midline Cardiovascular: Yes: Regular Rate and Rhythm Respiratory: Yes: Rhonchi, Wheezes ...Clubbing: No Gastrointestinal: Yes: Normal Bowel Sounds, Soft, Abdomen, Obese. No: Tenderness Edema: Yes Neurological: Yes: Alert, Oriented Labs: CBC, BMP 11/08/18 07:42 11/08/18 07:42 ABG Results ABG pH 7.38 (7.35-7.45) 11/07/18 22:32 ABG pCO2 at Pt Temp 68.4 mmHg (35-45) H 11/07/18 22:32 ABG pO2 at Pt Temp 107 mmHg (80-105) H 11/07/18 22:32 ABG HCO3 39.2 mmol/L (22-27) H 11/07/18 22:32 ABG O2 Sat (Measured) 96.0 % (95-98) 11/07/18 22:32 ABG O2 Content 13.0 % vol (15-22) L 11/07/18 22:32 ABG Base Excess 12.3 meq/l (-2-2) H 11/07/18 22:32 Imaging - Results Chest X-ray: Report Reviewed, Image Reviewed (pulmonary vascular congestion, bilateral effusions) Problem List - Problems (1) Acute on chronic respiratory failure with hypoxia and hypercapnia Code(s): J96.21 - ACUTE AND CHRONIC RESPIRATORY FAILURE WITH HYPOXIA; J96.22 - ACUTE AND CHRONIC RESPIRATORY FAILURE WITH HYPERCAPNIA (2) Acute on chronic diastolic (congestive) heart failure Code(s): I50.33 - ACUTE ON CHRONIC DIASTOLIC (CONGESTIVE) HEART FAILURE (3) Volume overload Code(s): E87.70 - FLUID OVERLOAD, UNSPECIFIED Assessment/Plan Acute on Chronic Diastolic Heart Failure Volume Overload Acute on Chronic Hypoxic and Hypercapneic Respiratory Failure COPD Morbid Obesity h/o DVT Hypothyroidism Bipolar Disorder Depression - IV lasix - monitor urine output, creatinine - daily weights - O2 to keep Spo2 >90% - inhaled bronchodilators - can defer systemic steroids at this time - continue volume assist control - spontaneous breathing trials as tolerated when more euvolemic - continue anticoagulation - PO as tolerated Thank you for this consult Robert Barber MD
--- NOTE | 2018-11-08 12:19 | PN ---
Progress Note (short form) - Note Progress Note: pt seen/ examined in er chart reviewed awake anxious denies cp. Vital Signs Temp 98.0 F 11/08/18 06:50 Pulse 55 L 11/08/18 10:22 Resp 18 11/08/18 11:25 BP 118/64 11/08/18 10:22 Pulse Ox 96 11/08/18 10:22 Intake & Output 11/07/18 11/08/18 11/08/18 23:59 11:59 23:59 Weight 400 lb Other: Voiding Method Indwelling Catheter Height 5 ft 1 in Body Mass Index (BMI) 75.5 Weight Measurement Method Estimated by Staff Active Medications Albuterol/Ipratropium (Duoneb -) 1 amp NEB RQID [facility] Last Admin: 11/08/18 09:45 Dose: 1 amp Apixaban (Eliquis -) 2.5 mg PO BID [facility] Last Admin: 11/08/18 10:19 Dose: 2.5 mg Aripiprazole (Abilify) 10 mg PO DAILY [facility] Last Admin: 11/08/18 10:19 Dose: 10 mg Aspirin (Asa -) 81 mg PO DAILY [facility] Last Admin: 11/08/18 10:19 Dose: 81 mg Atorvastatin Calcium (Lipitor -) 20 mg PO HS [facility]EL[facility] Docusate Sodium (Colace -) 100 mg PO HS [facility] Escitalopram Oxalate (Lexapro -) 20 mg PO DAILY [facility] Last Admin: 11/08/18 10:20 Dose: 20 mg Furosemide (Lasix Injection -) 40 mg IVPUSH BID@0600,1400 [facility] Last Admin: 11/08/18 06:04 Dose: 40 mg Gabapentin (Neurontin -) 400 mg PO TID [facility] Last Admin: 11/08/18 06:11 Dose: 400 mg Azithromycin (Zithromax 500mg Ivpb (Pre-Docked)) 500 mg in 250 mls @ 250 mls/ hr IVPB DAILY [facility] Levothyroxine Sodium (Synthroid -) 25 mcg PO DAILY@0700 [facility] Last Admin: 11/08/18 06:36 Dose: 25 mcg Lisinopril (Prinivil) 10 mg PO DAILY [facility] Last Admin: 11/08/18 10:20 Dose: 10 mg Metoprolol Tartrate (Lopressor -) 25 mg PO BID [facility] Last Admin: 11/08/18 10:20 Dose: 25 mg Mirtazapine (Remeron -) 15 mg PO HS [facility] Montelukast Sodium (Singulair -) 10 mg PO HS [facility] Multivitamins/Minerals/Vitamin C (Tab-A-Vit -) 1 tab PO DAILY [facility] Last Admin: 11/08/18 10:20 Dose: 1 tab Nitroglycerin (Nitrostat -) 0.4 mg SL Q5M PRN PRN Reason: FOR CHEST PAIN Pantoprazole Sodium (Protonix -) 40 mg PO DAILY [facility] Last Admin: 11/08/18 10:20 Dose: 40 mg Prednisone (Deltasone -) 40 mg PO DAILY [facility] Last Admin: 11/08/18 10:19 Dose: 40 mg Tramadol HCl (Ultram -) 50 mg PO Q8H PRN PRN Reason: PAIN LEVEL 6-10 Trazodone HCl (Desyrel -) 100 mg PO HS [facility] CBC, BMP 11/08/18 07:42 11/08/18 07:42 Laboratory Results - last 24 hr 11/07/18 11/07/18 11/07/18 20:38 21:20 21:20 WBC 6.3 RBC 3.39 L Hgb 8.9 L Hct 28.0 L MCV 82.6 MCH 26.2 MCHC 31.7 L RDW 15.4 Plt Count 257 D MPV 7.4 L D Absolute Neuts (auto) 4.3 Neutrophils % 68.7 Lymphocytes % 24.3 Monocytes % 4.1 Eosinophils % 2.5 Basophils % 0.4 Nucleated RBC % 0 PT with INR 12.90 INR 1.09 PTT (Actin FS) 32.6 Puncture Site ABG pH ABG pCO2 at Pt Temp ABG pO2 at Pt Temp ABG HCO3 ABG O2 Sat (Measured) ABG O2 Content ABG Base Excess Harris Test Carboxyhemoglobin Methemoglobin Oxygen Flow Rate Pressure Support Vent Sodium 140 Potassium 4.2 Chloride 96 L Carbon Dioxide 42 H Anion Gap 2 L BUN 26 H Creatinine 0.7 Creat Clearance w eGFR 87.53 Random Glucose 108 H Calcium 8.8 Total Bilirubin 0.3 AST 20 ALT 34 Alkaline Phosphatase 95 Creatine Kinase 119 Troponin I < 0.02 B-Natriuretic Peptide 57.2 Total Protein 6.4 Albumin 2.9 L TSH Urine Color Urine Appearance Urine pH Ur Specific [place] Urine Protein Urine Glucose (UA) Urine Ketones Urine Blood Urine Nitrite Urine Bilirubin Urine Urobilinogen Ur Leukocyte Esterase Urine WBC (Auto) Urine RBC (Auto) Urine Casts (Auto) U Epithel Cells (Auto) U Sm Round Cell (Auto) Urine Crystals (Auto) Urine Bacteria (Auto) 11/07/18 11/07/18 11/08/18 21:20 22:32 07:42 WBC 6.3 RBC 3.70 Hgb 9.6 L Hct 30.3 L MCV 81.7 MCH 26.0 MCHC 31.8 L RDW 15.3 Plt Count 280 MPV 7.6 Absolute Neuts (auto) 5.3 Neutrophils % 84.3 H D Lymphocytes % 14.9 D Monocytes % 0.5 L D Eosinophils % 0.1 D Basophils % 0.2 Nucleated RBC % 0 PT with INR INR PTT (Actin FS) Puncture Site Left radial ABG pH 7.38 ABG pCO2 at Pt Temp 68.4 H ABG pO2 at Pt Temp 107 H ABG HCO3 39.2 H ABG O2 Sat (Measured) 96.0 ABG O2 Content 13.0 L ABG Base Excess 12.3 H Harris Test Positive Carboxyhemoglobin 0 Methemoglobin 0.0 Oxygen Flow Rate 50 Pressure Support Vent 12/300 Sodium Potassium Chloride Carbon Dioxide Anion Gap BUN Creatinine Creat Clearance w eGFR Random Glucose Calcium Total Bilirubin AST ALT Alkaline Phosphatase Creatine Kinase Troponin I B-Natriuretic Peptide Total Protein Albumin TSH Urine Color Yellow Urine Appearance Turbid Urine pH >= 9.0 H D Ur Specific [place] 1.016 Urine Protein 2+ H Urine Glucose (UA) Negative Urine Ketones Negative Urine Blood 2+ H Urine Nitrite Negative Urine Bilirubin Negative Urine Urobilinogen 0.2 Ur Leukocyte Esterase 3+ H Urine WBC (Auto) 12 Urine RBC (Auto) 26 Urine Casts (Auto) 20 U Epithel Cells (Auto) 18.6 U Sm Round Cell (Auto) None Urine Crystals (Auto) Urine Bacteria (Auto) 1896.7 11/08/18 07:42 WBC RBC Hgb Hct MCV MCH MCHC RDW Plt Count MPV Absolute Neuts (auto) Neutrophils % Lymphocytes % Monocytes % Eosinophils % Basophils % Nucleated RBC % PT with INR INR PTT (Actin FS) Puncture Site ABG pH ABG pCO2 at Pt Temp ABG pO2 at Pt Temp ABG HCO3 ABG O2 Sat (Measured) ABG O2 Content ABG Base Excess Harris Test Carboxyhemoglobin Methemoglobin Oxygen Flow Rate Pressure Support Vent Sodium 138 Potassium 4.3 Chloride 96 L Carbon Dioxide 36 H Anion Gap 7 L BUN 24 H Creatinine 0.7 Creat Clearance w eGFR 87.53 Random Glucose 152 H Calcium 9.1 Total Bilirubin 0.3 AST 16 ALT 33 Alkaline Phosphatase 105 Creatine Kinase Troponin I < 0.02 B-Natriuretic Peptide Total Protein 7.0 Albumin 3.1 L TSH 1.34 Urine Color Urine Appearance Urine pH Ur Specific [place] Urine Protein Urine Glucose (UA) Urine Ketones Urine Blood Urine Nitrite Urine Bilirubin Urine Urobilinogen Ur Leukocyte Esterase Urine WBC (Auto) Urine RBC (Auto) Urine Casts (Auto) U Epithel Cells (Auto) U Sm Round Cell (Auto) Urine Crystals (Auto) Urine Bacteria (Auto) cxr-congested echo - noted physical exam awake/ morbidly obese s/p trach S1 S2 RRR Lungs ---clear-- no wheezing-- Abd- soft, non tender +++ edema neuro--- awake a/p i/v lasix d/c prednisone continue other meds cardiology/ pulmonary to follow vent support will follow Problem List - Problems (1) Acute on chronic diastolic (congestive) heart failure Code(s): I50.33 - ACUTE ON CHRONIC DIASTOLIC (CONGESTIVE) HEART FAILURE (2) Atypical chest pain Code(s): R07.89 - OTHER CHEST PAIN (3) Volume overload Code(s): E87.70 - FLUID OVERLOAD, UNSPECIFIED (4) Bipolar 1 disorder Code(s): F31.9 - BIPOLAR DISORDER, UNSPECIFIED (5) Diabetes Code(s): E11.9 - TYPE 2 DIABETES MELLITUS WITHOUT COMPLICATIONS
--- NOTE | 2018-11-08 16:43 | CON.CARD ---
Consult Consult Specialty:: Cardiology Reason for Consultation:: Fluid overloaded. Chest pain - History of Present Illness Chief Complaint: Chest pain. Fluid overaloaded History of Present Illness: This is a 53 year old female with a PMH of a long prior history of smoking, tracheostomy about a year ago, dCHF, chronic hypercapnia, hypoxic respiratory failure, COPD, prior PNA, venous thromboembolism (on Eliquis), HLD, morbid obesity, and hypothyroidism, and extensive psychiatric history, coming from [facility] who was BIBEMS for chest pain, SOB, non-productive cough x 2 days and diffuse body swelling x 3 weeks. The chest pain was non radiating and associated with her breathing. Troponin is negative x2 [facility] 11/08/18 TDS study EF 55-60% Positive UTI She appears massively fluid overloaded with anasarca. - Past Medical History Pulmonary: Yes: COPD, O2 Dependent, Pneumonia Gastrointestinal: Yes: Other (colon polyps) Psych: Yes: Bipolar Endocrine: Yes: Diabetes Mellitus - Alcohol/Substance Use Hx Alcohol Use: No History of Substance Use: reports: Marijuana - Smoking History Smoking history: Former smoker Have you smoked in the past 12 months: No Aproximately how many cigarettes per day: 5 If you are a former smoker, when did you quit?: 2017 - Social History Usual Living Arrangement: [facility] ADL: Support Services Occupation: disabled History of Recent Travel: No Home Medications - Allergies Allergies/Adverse Reactions: Allergies Allergy/AdvReac Type Severity Reaction Status Date / Time No Known Allergies Allergy Verified 11/07/18 20:14 - Home Medications Home Medications: Ambulatory Orders Acetaminophen 1,000 mg PO Q6H PRN 10/18/17 Aripiprazole 10 mg PO DAILY 10/18/17 Aspirin 81 mg PO DAILY 10/18/17 Furosemide [Lasix -] 40 mg PO BID 10/18/17 Lactobacillus Acidophilus [Acidophilus] 1 each PO BID 10/18/17 Levothyroxine [Synthroid -] 25 mcg PO DAILY 10/18/17 Mirtazapine 15 mg PO HS 10/18/17 Sennosides [Senna -] 2 tab PO HS tablet 01/18/18 Docusate Sodium [Colace] 100 mg PO HS 01/24/18 Escitalopram Oxalate [Lexapro -] 20 mg PO DAILY 01/24/18 Polyethylene Glycol 3350 [Gavilax] 17 gm PO DAILY 01/24/18 Vit A/Vitamin D3/E/Aloe V/Zinc [Periguard Ointment] 1 applic TP BID 01/24/18 Pantoprazole Sodium [Protonix -] 40 mg PO DAILY #60 tablet.ec 05/20/18 Clotrimazole/Betamet Diprop [Lotrisone -] 1 applic TP BID 06/02/18 Apixaban [Eliquis -] 2.5 mg PO BID 08/25/18 Budesonide/Formeterol Fumarate [SYMBICORT 160/4.5mcg -] 2 inh PO BID 08/25/18 Gabapentin [Neurontin -] 400 mg PO Q8H 08/25/18 Montelukast Na [Singulair -] 10 mg PO HS 08/25/18 Sacubitril/Valsartan [Entresto 24 mg-26 mg Tablet] 1 each PO BID 08/25/18 traZODone HCL [Desyrel -] 100 mg PO HS 08/25/18 Albuterol 2.5/Ipratropium 0.5 [Duoneb -] 1 amp NEB Q6H PRN amp 08/30/18 Multivitamin [One-Daily Multi-Vitamin] 1 each PO DAILY #30 tablet 09/01/18 Nystatin/Triamcinolone Top Oin [Mycolog II -] 1 applic TP BID #30 applic Furosemide [Lasix -] 40 mg PO BID@0600,1400 11/07/18 Family Disease History - Family Disease History Family Disease History: Other: Father (: PNA), Mother (: COPD ) Vital Signs: Vital Signs Temperature 98.6 F 11/08/18 14:38 Pulse Rate 52 L 11/08/18 15:00 Respiratory Rate 15 11/08/18 15:00 Blood Pressure 117/60 11/08/18 15:00 O2 Sat by Pulse Oximetry (%) 96 11/08/18 14:38 Constitutional: Yes: No Distress (Anasarca) HENT: Yes: WNL Neck: Yes: WNL Respiratory: Yes: CTA Bilaterally Gastrointestinal: Yes: Soft Cardiovascular: Yes: Regular Rate and Rhythm Heart Sounds: Yes: S1, S2 (No MRHG) Edema: LUE: 3+, RUE: 3+, LLE: 3+, RLE: 3+ Neurological: Yes: Alert, Oriented - Other Data Labs, Other Data: CBC, BMP 11/08/18 07:42 11/08/18 07:42 INR, PTT INR 1.09 (0.83-1.09) 11/07/18 21:20 Troponin, BNP 11/07/18 11/08/18 20:38 07:42 Troponin I < 0.02 < 0.02 B-Natriuretic Peptide 57.2 Troponin, BNP 11/07/18 11/08/18 20:38 07:42 Troponin I < 0.02 < 0.02 B-Natriuretic Peptide 57.2 Assessment/Plan This is a 53 year old female with a PMH of a long prior history of smoking, tracheostomy about a year ago, dCHF, chronic hypercapnia, hypoxic respiratory failure, COPD, prior PNA, venous thromboembolism (on Eliquis), HLD, morbid obesity, and hypothyroidism, and extensive psychiatric history, coming from [facility] who was BIBEMS for chest pain, SOB, non-productive cough x 2 days and diffuse body swelling x 3 weeks. The chest pain was non radiating and associated with her breathing. Troponin is negative x2 [facility] 11/08/18 TDS study EF 55-60% Positive UTI She appears massively fluid overloaded with anasarca. Chest pain Most Likely non cardiac Finish troponin set Anasarca Agree with Lasix IV although may need to increase the dose. She was taking Lasix PO 120 mg at home. Here she is getting Lasix 40 mg IVSS BID. Also, would favor Torsemide PO 100 mg as an outpatient instead of PO Lasix because Torsemide has superior absorption as compared to Lasix. Daily I's/O's/Wt's/Lytes
--- NOTE | 2018-11-08 19:52 | PDOC ---
*Physical Exam - Vital Signs Last Vital Signs Temp Pulse Resp BP Pulse Ox 98.6 F 52 L 25 H 117/60 96 11/08/18 14:38 11/08/18 15:00 11/08/18 18:52 11/08/18 15:00 11/08/18 14:38 ED Treatment Course - LABORATORY CBC & Chemistry Diagram: 11/08/18 07:42 11/08/18 07:42 - ADDITIONAL ORDERS Additional order review: 11/07/18 21:20 RBC 3.39 L MCV 82.6 MCHC 31.7 L RDW 15.4 MPV 7.4 L D Neutrophils % 68.7 Lymphocytes % 24.3 Monocytes % 4.1 Eosinophils % 2.5 Basophils % 0.4 - Medications Given in the ED: ED Medications Discontinued Medications Generic Name Dose Route Start Last Admin Trade Name Freq PRN Reason Stop Dose Admin Albuterol/Ipratropium 3 amp 11/07/18 20:39 11/07/18 22:03 Duoneb - NEB 11/07/18 20:40 3 amp ONCE ONE Administration Albuterol/Ipratropium 3 amp 11/07/18 22:04 11/07/18 22:41 Duoneb - NEB 11/07/18 22:05 3 amp ONCE ONE Administration Furosemide 40 mg 11/07/18 23:24 11/07/18 23:45 Lasix Injection - IVPUSH 11/07/18 23:25 40 mg ONCE ONE Administration Ceftriaxone Sodium 1,000 mg/ 50 mls @ 100 mls/hr 11/07/18 22:15 11/07/18 22: 41 Dextrose IVPB 11/07/18 22:44 100 mls/hr ONCE ONE Administration Azithromycin 500 mg/ Dextrose 250 mls @ 250 mls/hr 11/08/18 04:00 11/08/18 04 :05 IVPB 250 mls/hr DAILY NOELLE Administration Methylprednisolone Sodium Succinate 125 mg 11/07/18 23:24 11/07/18 23:48 Solu-Medrol - IVPB 11/07/18 23:25 125 mg ONCE ONE Administration Prednisone 40 mg 11/08/18 10:00 11/08/18 10:19 Deltasone - PO 40 mg DAILY NOELLE Administration *DC/Admit/Observation/Transfer Diagnosis at time of Disposition: COPD exacerbation, Atypical chest pain UTI (urinary tract infection) Qualifiers: Urinary tract infection type: catheter-associated UTI Indwelling urinary catheter type: indwelling urethral catheter Encounter type: initial encounter Qualified Code(s): T83.511A - Infection and inflammatory reaction due to indwelling urethral catheter, initial encounter - Discharge Dispostion Condition at time of disposition: Good Decision to Admit order: Yes - Referrals - Patient Instructions - Post Discharge Activity
[2018-11-08] MEDS ORDERED: traMADol HCL 50 MG TABLET ONE (20:56)
[2018-11-08] MEDS: traMADol HCL 50 MG TABLET PO PRN (20:59)
[2018-11-08] MEDS ORDERED: traZODone HCL 50 MG TABLET (FP) ONE (22:51)
[2018-11-08] MEDS: MONTELUKAST NA 10 MG TABLET PO SCH (23:12)
[2018-11-08] MEDS: MIRTAZAPINE 15 MG TABLET (FP) PO SCH (23:12)
[2018-11-08] MEDS: ATORVASTATIN CA 20 MG TABLET (FP) PO SCH (23:12)
[2018-11-08] MEDS: DOCUSATE SODIUM 100 MG CAPSULE (FP) PO SCH (23:13)
[2018-11-08] MEDS: traZODone HCL 100 MG TABLET (FP) PO SCH (23:13)
[2018-11-09] MEDS: FUROSEMIDE 40 MG/4 ML INJECTABLE VIAL IVPUSH SCH ×2 (06:32→14:04)
[2018-11-09] MEDS: GABAPENTIN 400 MG CAPSULE (FP) PO SCH ×3 (06:33→23:14)
[2018-11-09] MEDS: LEVOTHYROXINE NA 25 MCG TABLET (FP) PO SCH (06:33)
[2018-11-09 07:40] LABS: BASO % 0.4 % (0-2.0); EOS % 0.4 % (0-4.5); HEMOGLOBIN 8.6 GM/dL (10.7-15.3); LYMPH % 21.6 % (8-40); MCH 26.2 pg (25.7-33.7); MEAN PLT VOLUME 7.8 fl (7.5-11.1); MONO % 5.4 % (3.8-10.2); NEUT % 72.2 % (42.8-82.8); PLATELET COUNT 248 K/MM3 (134-434); RBC 3.29 M/mm3 (3.60-5.2); RDW 15.6 % (11.6-15.6); WHITE BLOOD COUNT 6.7 K/mm3 (4.0-10.0)
[2018-11-09 08:02] LABS: ALBUMIN 3.2 g/dl (3.4-5.0); ALK PHOS 97 U/L (45-117); ANION GAP 5 MMOL/L (8-16); BILIRUBIN,TOTAL 0.4 mg/dL (0.2-1); BLOOD UREA NITROGEN 28 mg/dL (7-18); CALCIUM 9.3 mg/dL (8.5-10.1); CHLORIDE 95 mmol/L (98-107); CO2 38 mmol/L (21-32); CREATININE 0.6 mg/dL (0.55-1.3); GLUCOSE,RANDOM 92 mg/dL (74-106); POTASSIUM 3.6 mmol/L (3.5-5.1); SGOT/AST 19 U/L (15-37); SGPT/ALT 42 U/L (13-61); SODIUM 138 mmol/L (136-145); TOT PROT 6.8 g/dl (6.4-8.2)
[2018-11-09] MEDS: ALBUTEROL SO4 2.5/IPRATROPIUM 0.5 INH SOL 3 ML VIAL.NEB. NEB SCH ×4 (08:45→21:59)
[2018-11-09] MEDS: traMADol HCL 50 MG TABLET PO PRN ×2 (08:50→16:52)
[2018-11-09] MEDS: ESCITALOPRAM OXALATE 20 MG TABLET (FP) PO SCH (08:59)
[2018-11-09] MEDS: PANTOPRAZOLE 40 MG TABLET (FP) PO SCH (08:59)
[2018-11-09] MEDS: ASPIRIN 81 MG CHEWABLE TABLETS PO SCH (08:59)
[2018-11-09] MEDS: MULTIVITAMINS (DAILY MVI) TABLET (FP) PO SCH (08:59)
[2018-11-09] MEDS: APIXABAN 2.5 MG TABLET PO SCH ×2 (08:59→23:14)
[2018-11-09] MEDS: AZITHROMYCIN IVPB 500 MG/250 ML BAG IVPB SCH (09:58)
[2018-11-09] MEDS: METOPROLOL TARTRATE 25 MG TABLET (FP) PO SCH ×2 (09:58→23:13)
[2018-11-09] MEDS: LISINOPRIL 10 MG TABLET (FP) PO SCH (09:59)
[2018-11-09] MEDS ORDERED: PT OWN MED DRAWER 7, Y5N ONE (10:06)
[2018-11-09] MEDS: ARIPiprazole 10 MG TABLET PO SCH (10:12)
--- NOTE | 2018-11-09 10:46 | PN ---
Progress Note (short form) - Note Progress Note: PULMONARY Still with shortness of breath, cough, generalized swelling. Vital Signs Period Temp Pulse Resp BP Sys/Petersen Pulse Ox Last 24 Hr 97.7 F-98.6 F 45-58 15-26 104-117/54-63 96-99 Intake & Output 11/06/18 11/07/18 11/08/18 11/09/18 23:59 23:59 23:59 23:59 Output Total 975 750 Balance -975 -750 Weight 181.437 kg Gen: vented, awake Heart: RRR Lung: distant breath sounds Abd: soft, nontender Ext: + edema CBC, BMP 11/09/18 07:00 11/09/18 07:00 Active Medications Albuterol/Ipratropium (Duoneb -) 1 amp NEB RQID [facility] Last Admin: 11/09/18 08:45 Dose: 1 amp Apixaban (Eliquis -) 2.5 mg PO BID [facility] Last Admin: 11/09/18 08:59 Dose: 2.5 mg Aripiprazole (Abilify) 10 mg PO DAILY [facility] Last Admin: 11/09/18 10:12 Dose: 10 mg Aspirin (Asa -) 81 mg PO DAILY [facility] Last Admin: 11/09/18 08:59 Dose: 81 mg Atorvastatin Calcium (Lipitor -) 20 mg PO HS [facility] Last Admin: 11/08/18 23:12 Dose: 20 mg Docusate Sodium (Colace -) 100 mg PO HS [facility] Last Admin: 11/08/18 23:13 Dose: 100 mg Escitalopram Oxalate (Lexapro -) 20 mg PO DAILY [facility] Last Admin: 11/09/18 08:59 Dose: 20 mg Furosemide (Lasix Injection -) 40 mg IVPUSH BID@0600,1400 [facility] Last Admin: 11/09/18 06:32 Dose: 40 mg Gabapentin (Neurontin -) 400 mg PO TID [facility] Last Admin: 11/09/18 06:33 Dose: 400 mg Azithromycin (Zithromax 500mg Ivpb (Pre-Docked)) 500 mg in 250 mls @ 250 mls/ hr IVPB DAILY [facility] Last Admin: 11/09/18 09:58 Dose: 250 mls/hr Levothyroxine Sodium (Synthroid -) 25 mcg PO DAILY@0700 [facility] Last Admin: 11/09/18 06:33 Dose: 25 mcg Lisinopril (Prinivil) 10 mg PO DAILY [facility] Last Admin: 11/09/18 09:59 Dose: 10 mg Metoprolol Tartrate (Lopressor -) 25 mg PO BID [facility] Last Admin: 11/09/18 09:58 Dose: Not Given Mirtazapine (Remeron -) 15 mg PO [facility] Last Admin: 11/08/18 23:12 Dose: 15 mg Montelukast Sodium (Singulair -) 10 mg PO [facility] Last Admin: 11/08/18 23:12 Dose: 10 mg Multivitamins/Minerals/Vitamin C (Tab-A-Vit -) 1 tab PO DAILY [facility] Last Admin: 11/09/18 08:59 Dose: 1 tab Nitroglycerin (Nitrostat -) 0.4 mg SL Q5M PRN PRN Reason: FOR CHEST PAIN Pantoprazole Sodium (Protonix -) 40 mg PO DAILY [facility] Last Admin: 11/09/18 08:59 Dose: 40 mg Tramadol HCl (Ultram -) 50 mg PO Q8H PRN PRN Reason: PAIN LEVEL 6-10 Last Admin: 11/09/18 08:50 Dose: 50 mg Trazodone HCl (Desyrel -) 100 mg PO [facility] Last Admin: 11/08/18 23:13 Dose: 100 mg A/P Acute on Chronic Diastolic Heart Failure Volume Overload Acute on Chronic Hypoxic and Hypercapneic Respiratory Failure COPD UTI Morbid Obesity h/o DVT Hypothyroidism Bipolar Disorder Depression - continue lasix - monitor urine output, creatinine - daily weights - O2 to keep Spo2 >90% - would get ID eval for multiple organisms in urine culture - f/u cultures - inhaled bronchodilators - can defer systemic steroids at this time - continue volume assist control - spontaneous breathing trials as tolerated when more euvolemic - ENT eval as pt c/o trach site pain when cuff inflated - continue anticoagulation - PO as tolerated - will resume ativan as pt on medication in the [facility] Problem List - Problems (1) Acute on chronic respiratory failure with hypoxia and hypercapnia Code(s): J96.21 - ACUTE AND CHRONIC RESPIRATORY FAILURE WITH HYPOXIA; J96.22 - ACUTE AND CHRONIC RESPIRATORY FAILURE WITH HYPERCAPNIA (2) Acute on chronic diastolic (congestive) heart failure Code(s): I50.33 - ACUTE ON CHRONIC DIASTOLIC (CONGESTIVE) HEART FAILURE (3) Volume overload Code(s): E87.70 - FLUID OVERLOAD, UNSPECIFIED
--- NOTE | 2018-11-09 11:09 | PN ---
Progress Note, Physician History of Present Illness: noted to have low normal BP this am and HR 40s - Current Medication List Current Medications: Active Medications Albuterol/Ipratropium (Duoneb -) 1 amp NEB RQID [facility] Last Admin: 11/09/18 08:45 Dose: 1 amp Apixaban (Eliquis -) 2.5 mg PO BID [facility] Last Admin: 11/09/18 08:59 Dose: 2.5 mg Aripiprazole (Abilify) 10 mg PO DAILY [facility] Last Admin: 11/09/18 10:12 Dose: 10 mg Aspirin (Asa -) 81 mg PO DAILY [facility] Last Admin: 11/09/18 08:59 Dose: 81 mg Atorvastatin Calcium (Lipitor -) 20 mg PO HS [facility] Last Admin: 11/08/18 23:12 Dose: 20 mg Docusate Sodium (Colace -) 100 mg PO HS [facility] Last Admin: 11/08/18 23:13 Dose: 100 mg Escitalopram Oxalate (Lexapro -) 20 mg PO DAILY [facility] Last Admin: 11/09/18 08:59 Dose: 20 mg Furosemide (Lasix Injection -) 40 mg IVPUSH BID@0600,1400 [facility] Last Admin: 11/09/18 06:32 Dose: 40 mg Gabapentin (Neurontin -) 400 mg PO TID [facility] Last Admin: 11/09/18 06:33 Dose: 400 mg Azithromycin (Zithromax 500mg Ivpb (Pre-Docked)) 500 mg in 250 mls @ 250 mls/ hr IVPB DAILY [facility] Last Admin: 11/09/18 09:58 Dose: 250 mls/hr Levothyroxine Sodium (Synthroid -) 25 mcg PO DAILY@0700 [facility] Last Admin: 11/09/18 06:33 Dose: 25 mcg Lisinopril (Prinivil) 10 mg PO DAILY [facility] Last Admin: 11/09/18 09:59 Dose: 10 mg Lorazepam (Ativan -) 0.5 mg PO BID PRN PRN Reason: ANXIETY Metoprolol Tartrate (Lopressor -) 25 mg PO BID [facility] Last Admin: 11/09/18 09:58 Dose: Not Given Mirtazapine (Remeron -) 15 mg PO [facility] Last Admin: 11/08/18 23:12 Dose: 15 mg Montelukast Sodium (Singulair -) 10 mg PO [facility] Last Admin: 11/08/18 23:12 Dose: 10 mg Multivitamins/Minerals/Vitamin C (Tab-A-Vit -) 1 tab PO DAILY [facility] Last Admin: 11/09/18 08:59 Dose: 1 tab Nitroglycerin (Nitrostat -) 0.4 mg SL Q5M PRN PRN Reason: FOR CHEST PAIN Pantoprazole Sodium (Protonix -) 40 mg PO DAILY [facility] Last Admin: 11/09/18 08:59 Dose: 40 mg Tramadol HCl (Ultram -) 50 mg PO Q8H PRN PRN Reason: PAIN LEVEL 6-10 Last Admin: 11/09/18 08:50 Dose: 50 mg Trazodone HCl (Desyrel -) 100 mg PO [facility] Last Admin: 11/08/18 23:13 Dose: 100 mg - Objective Vital Signs: Vital Signs Temperature 97.7 F 11/09/18 06:00 Pulse Rate 45 L 11/09/18 06:00 Respiratory Rate 21 H 11/09/18 08:46 Blood Pressure 110/55 L 11/09/18 06:00 O2 Sat by Pulse Oximetry (%) 99 11/09/18 06:16 Constitutional: Yes: No Distress, Calm Eyes: Yes: Conjunctiva Clear, EOM Intact Cardiovascular: Yes: Bradycardia, S1, S2. No: Tachycardia, Pulse Irregular, Bruit, JVD, Gallop, Murmur, Rub, S3, S4 Respiratory: Yes: Regular, Diminished. No: Rales, Rhonchi, Wheezes Gastrointestinal: Yes: Normal Bowel Sounds Edema: Yes Edema: LLE: 2+, RLE: 2+ Neurological: Yes: Alert Psychiatric: Yes: Alert Labs: CBC, BMP 11/09/18 07:00 11/09/18 07:00 INR, PTT INR 1.09 (0.83-1.09) 11/07/18 21:20 - ....Imaging Chest X-ray: Report Reviewed, Image Reviewed EKG: Report Reviewed, Image Reviewed Other: Report Reviewed, Image Reviewed Assessment/Plan This is a 53 year old female with a PMH of a long prior history of smoking, tracheostomy about a year ago, dCHF, chronic hypercapnia, hypoxic respiratory failure, COPD, prior PNA, venous thromboembolism (on Eliquis), HLD, morbid obesity, and hypothyroidism, and extensive psychiatric history, coming from [facility] who was BIBEMS for chest pain, SOB, non-productive cough x 2 days and diffuse body swelling x 3 weeks. The chest pain was non radiating and associated with her breathing. Chest pain Most Likely non cardiac No evidence of ischemia Troponin wnl x2, 3rd set not done Echocardiogarm 11/08/18 TDS study EF 55-60% Anasarca -Receiving Lasix 40mg IV BID -She was taking Lasix PO 120 mg at home. -may need to increase dose if insufficient urine output -monitor strict I/os and daily weights, Keep O >I -monitor bun/creat, electrolytes and replete as needed -consider change to Torsemide PO 100 mg as an outpatient instead of PO Lasix because Torsemide has superior absorption as compared to Lasix. -review of [place] meds she was on Entresto and spironolactone (unknown indication given Normal LVEF) -currently on Lisinopril and metoprolol -Ly metoprolol as below, ok to cont Lisinopril for now as long as BP tolerates Bradycardia-sinus -Hold metoprolol, (review of [place] meds she is not on metoprolol)
--- NOTE | 2018-11-09 12:26 | PN ---
Progress Note (short form) - Note Progress Note: uncomfortable has pain in trach site and legs anasarca++ Vital Signs - 24 hr 11/08/18 11/08/18 11/08/18 14:00 14:38 15:00 Temperature 98.6 F Pulse Rate 52 L Pulse Rate [ 58 L Left Radial] Respiratory 20 20 15 Rate Blood Pressure 117/60 Blood Pressure 113/63 [Right Arm] O2 Sat by Pulse 96 Oximetry (%) 11/08/18 11/08/18 11/08/18 16:54 18:52 19:58 Temperature Pulse Rate Pulse Rate [ Left Radial] Respiratory 18 25 H 25 H Rate Blood Pressure Blood Pressure [Right Arm] O2 Sat by Pulse 96 Oximetry (%) 11/08/18 11/08/18 11/08/18 21:00 22:45 23:00 Temperature 97.9 F Pulse Rate 56 L Pulse Rate [ Left Radial] Respiratory 24 H 15 Rate Blood Pressure 111/57 L Blood Pressure [Right Arm] O2 Sat by Pulse 98 99 Oximetry (%) 11/08/18 11/09/18 11/09/18 23:13 02:00 02:26 Temperature 97.9 F 97.9 F Pulse Rate 56 L 49 L Pulse Rate [ Left Radial] Respiratory 15 26 H Rate Blood Pressure 111/57 L 104/54 L Blood Pressure [Right Arm] O2 Sat by Pulse Oximetry (%) 11/09/18 11/09/18 11/09/18 06:00 06:16 06:26 Temperature 97.7 F Pulse Rate 45 L Pulse Rate [ Left Radial] Respiratory 15 15 20 Rate Blood Pressure 110/55 L Blood Pressure [Right Arm] O2 Sat by Pulse 99 Oximetry (%) 11/09/18 08:46 Temperature Pulse Rate Pulse Rate [ Left Radial] Respiratory 21 H Rate Blood Pressure Blood Pressure [Right Arm] O2 Sat by Pulse Oximetry (%) Current Medications Generic Name Dose Route Start Last Admin Trade Name Freq PRN Reason Stop Dose Admin Albuterol/Ipratropium 1 amp 11/08/18 08:00 11/09/18 12:23 Duoneb - NEB 1 amp RQID NOELLE Administration Apixaban 2.5 mg 11/08/18 10:00 11/09/18 08:59 Eliquis - PO 2.5 mg BID NOELLE Administration Aripiprazole 10 mg 11/08/18 10:00 11/09/18 10:12 Abilify PO 10 mg DAILY NOELLE Administration Aspirin 81 mg 11/08/18 10:00 11/09/18 08:59 Asa - PO 81 mg DAILY NOELLE Administration Atorvastatin Calcium 20 mg 11/08/18 22:00 11/08/18 23:12 Lipitor - PO 20 mg HS NOELLE Administration Docusate Sodium 100 mg 11/08/18 22:00 11/08/18 23:13 Colace - PO 100 mg HS NOELLE Administration Escitalopram Oxalate 20 mg 11/08/18 10:00 11/09/18 08:59 Lexapro - PO 20 mg DAILY NOELLE Administration Furosemide 40 mg 11/08/18 06:00 11/09/18 06:32 Lasix Injection - IVPUSH 40 mg BID@0600,1400 NOELLE Administration Gabapentin 400 mg 11/08/18 06:00 11/09/18 06:33 Neurontin - PO 400 mg TID NOELLE Administration Azithromycin 500 mg in 250 mls @ 250 mls/hr 11/09/18 10:00 11/09/18 09:58 Zithromax 500mg Ivpb (Pre-Docked) IVPB 250 mls/hr DAILY [facility] Administration Levothyroxine Sodium 25 mcg 11/08/18 07:00 11/09/18 06:33 Synthroid - PO 25 mcg DAILY@0700 NOELLE Administration Lisinopril 10 mg 11/08/18 10:00 11/09/18 09:59 Prinivil PO 10 mg DAILY NO[facility]LE Administration Lorazepam 0.5 mg 11/09/18 10:48 Ativan - PO BID PRN ANXIETY Metoprolol Tartrate 25 mg 11/08/18 10:00 11/09/18 09:58 Lopressor - PO Not Given BID NOELLE Mirtazapine 15 mg 11/08/18 22:00 11/08/18 23:12 Remeron - PO 15 mg HS NOELLE Administration Montelukast Sodium 10 mg 11/08/18 22:00 11/08/18 23:12 Singulair - PO 10 mg HS NOELLE Administration Multivitamins/Minerals/Vitamin C 1 tab 11/08/18 10:00 11/09/18 08:59 Tab-A-Vit - PO 1 tab DAILY [facility] Administration Nitroglycerin 0.4 mg 11/08/18 02:28 Nitrostat - SL Q5M PRN FOR CHEST PAIN Pantoprazole Sodium 40 mg 11/08/18 10:00 11/09/18 08:59 Protonix - PO 40 mg DAILY [facility] Administration Tramadol HCl 50 mg 11/08/18 10:03 11/09/18 08:50 Ultram - PO 50 mg Q8H PRN Administration PAIN LEVEL 6-10 Trazodone HCl 100 mg 11/08/18 22:00 11/08/18 23:13 Desyrel - PO 100 mg HS NOELLE Administration Laboratory Results - last 24 hr 11/09/18 11/09/18 07:00 07:00 WBC 6.7 RBC 3.29 L Hgb 8.6 L Hct 27.0 L MCV 82.0 MCH 26.2 MCHC 32.0 RDW 15.6 Plt Count 248 MPV 7.8 Absolute Neuts (auto) 4.9 Neutrophils % 72.2 Lymphocytes % 21.6 D Monocytes % 5.4 D Eosinophils % 0.4 D Basophils % 0.4 Nucleated RBC % 0 Sodium 138 Potassium 3.6 Chloride 95 L Carbon Dioxide 38 H Anion Gap 5 L BUN 28 H Creatinine 0.6 Creat Clearance w eGFR 104.57 Random Glucose 92 Calcium 9.3 Total Bilirubin 0.4 AST 19 ALT 42 Alkaline Phosphatase 97 Total Protein 6.8 Albumin 3.2 L cxr-congested echo - noted physical exam awake/ morbidly obese s/p trach S1 S2 RRR Lungs ---clear-- no wheezing Abd- soft, non tender +++ edema neuro--- awake a/p CHF decompensation-- i/v lasix ?lopressor-- she was not on the medication in [place] -- was started here on admission check I and O may need bariatric bed with bed scale to accurately check weights UTI --was on chronic pete in [place] too for the last 2 months per pt due to sacral ulcer-- was changed 3 weeks ago-- urine culture- multiple organisms-- ID consulted vent support ENT eval -- c/o trach pain Problem List - Problems (1) Acute on chronic diastolic (congestive) heart failure Code(s): I50.33 - ACUTE ON CHRONIC DIASTOLIC (CONGESTIVE) HEART FAILURE (2) Atypical chest pain Code(s): R07.89 - OTHER CHEST PAIN (3) UTI (urinary tract infection) Code(s): N39.0 - URINARY TRACT INFECTION, SITE NOT SPECIFIED Qualifiers: Urinary tract infection type: catheter-associated UTI Indwelling urinary catheter type: indwelling urethral catheter Encounter type: initial encounter Qualified Code(s): T83.511A - Infection and inflammatory reaction due to indwelling urethral catheter, initial encounter; N39.0 - Urinary tract infection , site not specified (4) Volume overload Code(s): E87.70 - FLUID OVERLOAD, UNSPECIFIED
[2018-11-09] MEDS: LORazepam 0.5 MG TABLET PO PRN ×2 (14:04→23:14)
[2018-11-09] MEDS ORDERED: MAG HYDROX/AL HYDROX/SIMETH 30 ML UNIT-DOSE CUP PO ONE (17:45)
--- NOTE | 2018-11-09 17:55 | PN ---
Progress Note (short form) - Note Progress Note: ID consult dictated imp/reccd asked to evaluate for UTI 53 yo female morbidly obese, chronic resp failure trach via vent history of tracheal colonization with highly resistant acinetobacter admitted with anasarca and chest pain she has [place] the [place] for the last[place] months per patient the pete was not changed in the ER- the bag was! no fevers no leukocytosis suspect this is volume overload-agree with diuresis she has no signs or symptoms of UTI pete is chronic and will always grow bacteria (was not changed in ED per patient who is awke and alert) needs strict contact isolation for resistant acienetobacter thanks please call back if needed Problem List - Problems (1) Asymptomatic bacteriuria Code(s): R82.71 - BACTERIURIA (2) Volume overload Code(s): E87.70 - FLUID OVERLOAD, UNSPECIFIED (3) Acute on chronic respiratory failure with hypoxia and hypercapnia Code(s): J96.21 - ACUTE AND CHRONIC RESPIRATORY FAILURE WITH HYPOXIA; J96.22 - ACUTE AND CHRONIC RESPIRATORY FAILURE WITH HYPERCAPNIA (4) 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
--- NOTE | 2018-11-09 22:45 | CONS ---
DATE OF CONSULTATION: DATE OF DICTATION: 11/09/2018 REQUESTED BY: Candice Rockwell MD This is a 53-year-old woman with a history of morbid obesity. She has history of chronic respiratory failure and is on a ventilator. She resides at the group home. She was admitted on the for chest pain and shortness of breath. She reports she has had increasing swelling of her body over the last 3 weeks. There was no fevers or chills. Normally, she uses the ventilator only at night, but lately, because she has been more short of breath, she has been using the ventilator more often. She has recently had a Carroll in the group home due to a sacral ulcer that is healed and, when she was admitted, she was admitted with a Carroll catheter. Per the patient, the Carroll catheter was not changed. The bag was changed and a UA and urine culture were sent. The urine culture is now growing 2 organisms and I am asked to see her for possible UTI. She has no abdominal pain and her chest pain is resolved. She is awake and alert. PAST MEDICAL HISTORY: Notable for CHF; hypercapnic, hypoxemic respiratory failure; COPD; prior history of pneumonia; DVT; hyperlipidemia; morbid obesity; hypothyroidism. She has an extensive psychiatric history. She has a history of bipolar disorder, diabetes, and depression. SURGICAL HISTORY: Notable for tracheostomy. She is a former smoker. She has no known drug allergies. She resides at the group home. She reports that she has a Carroll there because it is difficult for her on Lasix to make it to be changed frequently. MEDICATIONS: Aripiprazole, aspirin, furosemide, lactobacillus, levothyroxine, mirtazepine, Colace, Lexapro, polyethylene glycol, apixaban, Symbicort, Neurontin, Singulair, Entresto, trazodone, DuoNeb. FAMILY HISTORY: Notable for father from pneumonia. Mother of COPD. REVIEW OF SYSTEMS: Notable for the increased swelling. She has no chills or fever. PHYSICAL EXAMINATION: General: She is on the ventilator, but she is awake and alert and talking. Vital Signs: Temperature is 98.1, pulse is 55, blood pressure 95/45, respiratory rate 16. She weighs 181 kg. HEENT: She is normocephalic. Her eyes are anicteric. Neck: Supple. Lungs: Diminished breath sounds at the bases. Heart: Regular rate and rhythm. Abdomen: Soft. Extremities: Notable for peripheral edema. White count is 6.7, hemoglobin 8.6, platelets are 248. INR is 1. BUN is 28, creatinine is 0.6. Urinalysis with 3+ leukocytes and 12 white cells. Urine culture is growing a gram-negative as well as a group B strep. Chest x-ray shows pulmonary congestion. SUMMARY: This is a 53-year-old woman who is admitted with volume overload. I would agree with the diuresis. She has no signs or symptoms of a UTI. The Carroll is chronic and will always grow bacteria; it also was not changed in the ER. She needs strict contact isolation for prior culture with resistant acinetobacter, which was discussed with the nursing staff. She has no fever or leukocytosis at this time. Please call back if needed. CRISTOPHER GIMENEZ M.D. [id number]
[2018-11-09] MEDS ORDERED: traZODone HCL 50 MG TABLET (FP) ONE (23:05)
[2018-11-09] MEDS: MONTELUKAST NA 10 MG TABLET PO SCH (23:14)
[2018-11-09] MEDS: DOCUSATE SODIUM 100 MG CAPSULE (FP) PO SCH ×2 (23:14→23:26)
[2018-11-09] MEDS: MIRTAZAPINE 15 MG TABLET (FP) PO SCH (23:14)
[2018-11-09] MEDS: traZODone HCL 100 MG TABLET (FP) PO SCH (23:15)
[2018-11-09] MEDS: ATORVASTATIN CA 20 MG TABLET (FP) PO SCH (23:15)
[2018-11-10] MEDS: LEVOTHYROXINE NA 25 MCG TABLET (FP) PO SCH (06:06)
[2018-11-10] MEDS: GABAPENTIN 400 MG CAPSULE (FP) PO SCH ×3 (06:06→22:18)
[2018-11-10] MEDS: FUROSEMIDE 40 MG/4 ML INJECTABLE VIAL IVPUSH SCH ×2 (06:06→14:55)
[2018-11-10] MEDS: traMADol HCL 50 MG TABLET PO PRN ×3 (06:10→22:23)
[2018-11-10 07:59] LABS: ALBUMIN 3.2 g/dl (3.4-5.0); ALK PHOS 86 U/L (45-117); ANION GAP 6 MMOL/L (8-16); BILIRUBIN,TOTAL 0.3 mg/dL (0.2-1); BLOOD UREA NITROGEN 28 mg/dL (7-18); CALCIUM 9.2 mg/dL (8.5-10.1); CHLORIDE 96 mmol/L (98-107); CO2 37 mmol/L (21-32); CREATININE 0.6 mg/dL (0.55-1.3); GLUCOSE,RANDOM 82 mg/dL (74-106); POTASSIUM 3.8 mmol/L (3.5-5.1); SGOT/AST 13 U/L (15-37); SGPT/ALT 36 U/L (13-61); SODIUM 139 mmol/L (136-145); TOT PROT 6.5 g/dl (6.4-8.2)
[2018-11-10 08:02] LABS: BASO % 0.7 % (0-2.0); EOS % 1.2 % (0-4.5); HEMATOCRIT 27.1 % (32.4-45.2); HEMOGLOBIN 8.6 GM/dL (10.7-15.3); LYMPH % 31.5 % (8-40); MCH 26.1 pg (25.7-33.7); MCHC 31.8 g/dl (32.0-36.0); MEAN CELL VOLUME 82.1 fl (80-96); MEAN PLT VOLUME 7.7 fl (7.5-11.1); MONO % 4.8 % (3.8-10.2); NEUT % 61.8 % (42.8-82.8); PLATELET COUNT 238 K/MM3 (134-434); WHITE BLOOD COUNT 5.7 K/mm3 (4.0-10.0)
[2018-11-10] MEDS: ALBUTEROL SO4 2.5/IPRATROPIUM 0.5 INH SOL 3 ML VIAL.NEB. NEB SCH ×4 (09:19→20:33)
--- NOTE | 2018-11-10 10:30 | CON.ENT ---
Consult Consult Specialty:: ENT Referred by:: Dr. Barber Reason for Consultation:: tracheotomy patient, c/o discomfort when cuff inflated - History of Present Illness History of Present Illness: pt has had tracheotomy for 1.[address] [facility], patient does not know her surgeon's name. states has been on ventilator usually on ventilator at night, but at baseline states she is on a trach collar during the day. 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 is able to talk and vocalize while on vent with cuff down adequate oxygenation SaO2 94%, HR 58 by pulse oximeter pt states that when cuff is inflated she has discomfort and states trouble breathing - History Source History Provided By: Patient, Medical Record Limitations to Obtaining History: No Limitations - Past Medical History Pulmonary: Yes: COPD, O2 Dependent, Pneumonia Gastrointestinal: Yes: Other (colon polyps) Psych: Yes: Bipolar Endocrine: Yes: Diabetes Mellitus - Alcohol/Substance Use Hx Alcohol Use: No History of Substance Use: reports: Marijuana - Smoking History Smoking history: Former smoker Have you smoked in the past 12 months: No Aproximately how many cigarettes per day: 5 If you are a former smoker, when did you quit?: 2017 - Social History Usual Living Arrangement: Residential ADL: Support Services Occupation: disabled History of Recent Travel: No Home Medications - Allergies Allergies/Adverse Reactions: Allergies Allergy/AdvReac Type Severity Reaction Status Date / Time No Known Allergies Allergy Verified 11/07/18 20:14 - Home Medications Home Medications: Ambulatory Orders Acetaminophen 1,000 mg PO Q6H PRN 10/18/17 Aripiprazole 10 mg PO DAILY 10/18/17 Aspirin 81 mg PO DAILY 10/18/17 Furosemide [Lasix -] 40 mg PO BID 10/18/17 Lactobacillus Acidophilus [Acidophilus] 1 each PO BID 10/18/17 Levothyroxine [Synthroid -] 25 mcg PO DAILY 10/18/17 Mirtazapine 15 mg PO HS 10/18/17 Sennosides [Senna -] 2 tab PO HS tablet 01/18/18 Docusate Sodium [Colace] 100 mg PO HS 01/24/18 Escitalopram Oxalate [Lexapro -] 20 mg PO DAILY 01/24/18 Polyethylene Glycol 3350 [Gavilax] 17 gm PO DAILY 01/24/18 Vit A/Vitamin D3/E/Aloe V/Zinc [Periguard Ointment] 1 applic TP BID 01/24/18 Pantoprazole Sodium [Protonix -] 40 mg PO DAILY #60 tablet.ec 05/20/18 Clotrimazole/Betamet Diprop [Lotrisone -] 1 applic TP BID 06/02/18 Apixaban [Eliquis -] 2.5 mg PO BID 08/25/18 Budesonide/Formeterol Fumarate [SYMBICORT 160/4.5mcg -] 2 inh PO BID 08/25/18 Gabapentin [Neurontin -] 400 mg PO Q8H 08/25/18 Montelukast Na [Singulair -] 10 mg PO HS 08/25/18 Sacubitril/Valsartan [Entresto 24 mg-26 mg Tablet] 1 each PO BID 08/25/18 traZODone HCL [Desyrel -] 100 mg PO HS 08/25/18 Albuterol 2.5/Ipratropium 0.5 [Duoneb -] 1 amp NEB Q6H PRN amp 08/30/18 Multivitamin [One-Daily Multi-Vitamin] 1 each PO DAILY #30 tablet 09/01/18 Nystatin/Triamcinolone Top Oin [Mycolog II -] 1 applic TP BID #30 applic Furosemide [Lasix -] 40 mg PO BID@0600,1400 11/07/18 Family Disease History - Family Disease History Family Disease History: Other: Father (: PNA), Mother (: COPD ) Physical Exam-ENT Vital Signs: Vital Signs Temperature 97.3 F L 11/10/18 06:00 Pulse Rate 49 L 11/10/18 06:00 Respiratory Rate 22 H 11/10/18 08:44 Blood Pressure 131/61 11/10/18 06:00 O2 Sat by Pulse Oximetry (%) 97 11/09/18 22:05 Head: Yes: WNL Face: Yes: WNL Eyes: Yes: WNL Neck: Yes: Other (#7 Portex tracheotomy tube in place, secure, functioning well , cuff deflated, pt vocalizing while on ventilator, no distress) Respiratory: Yes: Mechanically Ventilated Neurological: Yes: Alert, Oriented Imaging - Results Chest X-ray: Report Reviewed, Image Reviewed Problem List - Problems (1) Respiratory failure Assessment/Plan: on ventilator, requires consulting services associate for now because of cardiovascular status continue ventilator as indicated and directed by pulmonary Code(s): J96.90 - RESPIRATORY FAILURE, UNSP, UNSP W HYPOXIA OR HYPERCAPNIA Qualifiers: Chronicity: acute on chronic (2) Tracheostomy dependence Assessment/Plan: pt has chronic trachotomy, x 1.5 years functioning well, pt states trouble when cuff is inflated ventilating adequately with cuff down for now, can phonate Recommend will perform endoscopic evaluation of trach tube and trachea at bedside by 4-26 further recommendations pending that evaluation Thank you for consultation, Azam Neo MD FACS Code(s): Z93.0 - TRACHEOSTOMY STATUS
[2018-11-10] MEDS ORDERED: PT OWN MED DRAWER 7, Y5N ONE (10:56)
[2018-11-10] MEDS: AZITHROMYCIN IVPB 500 MG/250 ML BAG IVPB SCH (10:58)
[2018-11-10] MEDS: ESCITALOPRAM OXALATE 20 MG TABLET (FP) PO SCH (10:59)
[2018-11-10] MEDS: METOPROLOL TARTRATE 25 MG TABLET (FP) PO SCH ×2 (10:59→22:19)
[2018-11-10] MEDS: MULTIVITAMINS (DAILY MVI) TABLET (FP) PO SCH (10:59)
[2018-11-10] MEDS: APIXABAN 2.5 MG TABLET PO SCH (10:59)
[2018-11-10] MEDS: PANTOPRAZOLE 40 MG TABLET (FP) PO SCH (10:59)
[2018-11-10] MEDS: ASPIRIN 81 MG CHEWABLE TABLETS PO SCH (10:59)
[2018-11-10] MEDS: LISINOPRIL 10 MG TABLET (FP) PO SCH (10:59)
[2018-11-10] MEDS: ARIPiprazole 10 MG TABLET PO SCH (11:00)
--- NOTE | 2018-11-10 11:38 | PN ---
Progress Note (short form) - Note Progress Note: uncomfortable has pain in trach site and legs anasarca++ no sob on vent Vital Signs - 24 hr 11/09/18 11/09/18 11/09/18 12:24 15:02 16:42 Temperature 98.2 F Pulse Rate 52 L Respiratory 27 H 16 31 H Rate Blood Pressure 112/57 L O2 Sat by Pulse Oximetry (%) 11/09/18 11/09/18 11/09/18 18:36 18:55 21:00 Temperature 98.1 F Pulse Rate 55 L Respiratory 16 25 H Rate Blood Pressure 95/45 L O2 Sat by Pulse 97 Oximetry (%) 11/09/18 11/09/18 11/09/18 22:03 22:05 23:20 Temperature 97.6 F Pulse Rate 54 L 53 L Respiratory 26 H 16 Rate Blood Pressure 97/42 L O2 Sat by Pulse 97 Oximetry (%) 11/10/18 11/10/18 11/10/18 02:00 06:00 06:30 Temperature 98.4 F 97.3 F L Pulse Rate 49 L 49 L Respiratory 21 H 18 23 H Rate Blood Pressure 94/46 L 131/61 O2 Sat by Pulse Oximetry (%) 11/10/18 08:44 Temperature Pulse Rate Respiratory 22 H Rate Blood Pressure O2 Sat by Pulse Oximetry (%) Current Medications Generic Name Dose Route Start Last Admin Trade Name Freq PRN Reason Stop Dose Admin Albuterol/Ipratropium 1 amp 11/08/18 08:00 11/10/18 09:19 Duoneb - NEB 1 amp RQID NOELLE Administration Apixaban 2.5 mg 11/08/18 10:00 11/10/18 10:59 Eliquis - PO 2.5 mg BID NOELLE Administration Aripiprazole 10 mg 11/08/18 10:00 11/10/18 11:00 Abilify PO 10 mg DAILY NOELLE Administration Aspirin 81 mg 11/08/18 10:00 11/10/18 10:59 Asa - PO 81 mg DAILY NOELLE Administration Atorvastatin Calcium 20 mg 11/08/18 22:00 11/09/18 23:15 Lipitor - PO 20 mg HS NOELLE Administration Docusate Sodium 100 mg 11/08/18 22:00 11/09/18 23:26 Colace - PO Not Given HS NOELLE Escitalopram Oxalate 20 mg 11/08/18 10:00 11/10/18 10:59 Lexapro - PO 20 mg DAILY NOELLE Administration Furosemide 40 mg 11/08/18 06:00 11/10/18 06:06 Lasix Injection - IVPUSH 40 mg BID@0600,1400 NOELLE Administration Gabapentin 400 mg 11/08/18 06:00 11/10/18 06:06 Neurontin - PO 400 mg TID NOELLE Administration Levothyroxine Sodium 25 mcg 11/08/18 07:00 11/10/18 06:06 Synthroid - PO 25 mcg DAILY@0700 NOELLE Administration Lisinopril 10 mg 11/08/18 10:00 11/10/18 10:59 Prinivil PO 10 mg DAILY NOELLE Administration Lorazepam 0.5 mg 11/09/18 10:48 11/09/18 23:14 Ativan - PO 0.5 mg BID PRN Administration ANXIETY Metoprolol Tartrate 25 mg 11/08/18 10:00 11/10/18 10:59 Lopressor - PO 25 mg BID NOELLE Administration Mirtazapine 15 mg 11/08/18 22:00 11/09/18 23:14 Remeron - PO 15 mg HS NOELLE Administration Montelukast Sodium 10 mg 11/08/18 22:00 11/09/18 23:14 Singulair - PO 10 mg HS [facility] Administration Multivitamins/Minerals/Vitamin C 1 tab 11/08/18 10:00 11/10/18 10:59 Tab-A-Vit - PO 1 tab DAILY NOELLE Administration Nitroglycerin 0.4 mg 11/08/18 02:28 Nitrostat - SL Q5M PRN FOR CHEST PAIN Pantoprazole Sodium 40 mg 11/08/18 10:00 11/10/18 10:59 Protonix - PO 40 mg DAILY NOELLE Administration Tramadol HCl 50 mg 11/08/18 10:03 11/10/18 06:10 Ultram - PO 50 mg Q8H PRN Administration PAIN LEVEL 6-10 Trazodone HCl 100 mg 11/08/18 22:00 11/09/18 23:15 Desyrel - PO 100 mg HS NOELLE Administration Laboratory Results - last 24 hr 11/10/18 11/10/18 06:30 06:30 WBC 5.7 RBC 3.30 L Hgb 8.6 L Hct 27.1 L MCV 82.1 MCH 26.1 MCHC 31.8 L RDW 16.0 H Plt Count 238 MPV 7.7 Absolute Neuts (auto) 3.5 Neutrophils % 61.8 Lymphocytes % 31.5 D Monocytes % 4.8 Eosinophils % 1.2 D Basophils % 0.7 Nucleated RBC % 0 Sodium 139 Potassium 3.8 Chloride 96 L Carbon Dioxide 37 H Anion Gap 6 L BUN 28 H Creatinine 0.6 Creat Clearance w eGFR 104.57 Random Glucose 82 Calcium 9.2 Total Bilirubin 0.3 AST 13 L ALT 36 Alkaline Phosphatase 86 Total Protein 6.5 Albumin 3.2 L weight 438lbs cxr-congested echo - noted physical exam awake/ morbidly obese s/p trach S1 S2 RRR Lungs ---clear-- no wheezing Abd- soft, non tender +++ edema neuro--- awake a/p CHF decompensation-- i/v lasix ?lopressor-- she was not on the medication in [place] -- decrease dose check I and O weight pt daily dc iv azithromycin UTI --was [place] chronic pet[place] too for the last 2 months per pt due to sacral ulcer-- was changed 3 weeks ago-- urine culture- multiple organisms-- ID consulted ID eval appreciated -- no antibiotocs strict isolation vent support ENT eval -- c/o trach pain -- appreciated-- for endoscopy this Thursday Problem List - Problems (1) Acute on chronic diastolic (congestive) heart failure Code(s): I50.33 - ACUTE ON CHRONIC DIASTOLIC (CONGESTIVE) HEART FAILURE (2) Atypical chest pain Code(s): R07.89 - OTHER CHEST PAIN (3) UTI (urinary tract infection) Code(s): N39.0 - URINARY TRACT INFECTION, SITE NOT SPECIFIED Qualifiers: Urinary tract infection type: catheter-associated UTI Indwelling urinary catheter type: indwelling urethral catheter Encounter type: initial encounter Qualified Code(s): T83.511A - Infection and inflammatory reaction due to indwelling urethral catheter, initial encounter; N39.0 - Urinary tract infection , site not specified (4) Volume overload Code(s): E87.70 - FLUID OVERLOAD, UNSPECIFIED
--- NOTE | 2018-11-10 13:12 | PN ---
Progress Note, Physician History of Present Illness: pulmonary alert on vent support ac mode, comfortable - Current Medication List Current Medications: Active Medications Albuterol/Ipratropium (Duoneb -) 1 amp NEB RQID [facility] Last Admin: 11/10/18 12:03 Dose: 1 amp Apixaban (Eliquis -) 5 mg PO BID [facility] Aripiprazole (Abilify) 10 mg PO DAILY [facility] Last Admin: 11/10/18 11:00 Dose: 10 mg Aspirin (Asa -) 81 mg PO DAILY [facility] Last Admin: 11/10/18 10:59 Dose: 81 mg Atorvastatin Calcium (Lipitor -) 20 mg PO HS [facility] Last Admin: 11/09/18 23:15 Dose: 20 mg Docusate Sodium (Colace -) 100 mg PO HS [facility] Last Admin: 11/09/18 23:26 Dose: Not Given Escitalopram Oxalate (Lexapro -) 20 mg PO DAILY [facility] Last Admin: 11/10/18 10:59 Dose: 20 mg Furosemide (Lasix Injection -) 40 mg IVPUSH BID@0600,1400 [facility] Last Admin: 11/10/18 06:06 Dose: 40 mg Gabapentin (Neurontin -) 400 mg PO TID [facility] Last Admin: 11/10/18 06:06 Dose: 400 mg Levothyroxine Sodium (Synthroid -) 25 mcg PO DAILY@0700 [facility] Last Admin: 11/10/18 06:06 Dose: 25 mcg Lisinopril (Prinivil) 10 mg PO DAILY [facility] Last Admin: 11/10/18 10:59 Dose: 10 mg Lorazepam (Ativan -) 0.5 mg PO BID PRN PRN Reason: ANXIETY Last Admin: 11/09/18 23:14 Dose: 0.5 mg Metoprolol Tartrate (Lopressor -) 12.5 mg PO BID [facility] Mirtazapine (Remeron -) 15 mg PO HS [facility] Last Admin: 11/09/18 23:14 Dose: 15 mg Montelukast Sodium (Singulair -) 10 mg PO HS [facility] Last Admin: 11/09/18 23:14 Dose: 10 mg Multivitamins/Minerals/Vitamin C (Tab-A-Vit -) 1 tab PO DAILY [facility] Last Admin: 11/10/18 10:59 Dose: 1 tab Nitroglycerin (Nitrostat -) 0.4 mg SL Q5M PRN PRN Reason: FOR CHEST PAIN Pantoprazole Sodium (Protonix -) 40 mg PO DAILY [facility] Last Admin: 11/10/18 10:59 Dose: 40 mg Tramadol HCl (Ultram -) 50 mg PO Q6H PRN PRN Reason: PAIN LEVEL 6-10 Trazodone HCl (Desyrel -) 100 mg PO HS [facility] Last Admin: 11/09/18 23:15 Dose: 100 mg - Objective Vital Signs: Vital Signs Temperature 97.3 F L 11/10/18 06:00 Pulse Rate 49 L 11/10/18 06:00 Respiratory Rate 25 H 11/10/18 12:09 Blood Pressure 131/61 11/10/18 06:00 O2 Sat by Pulse Oximetry (%) 97 11/09/18 22:05 Constitutional: Yes: Calm, Obese Eyes: Yes: WNL HENT: Yes: WNL Neck: Yes: Supple (trach) Cardiovascular: Yes: Regular Rate and Rhythm, S1, S2 Respiratory: Yes: Rhonchi (scattered rhonchi) Gastrointestinal: Yes: Normal Bowel Sounds, Soft Extremities: Yes: WNL Edema: Yes Labs: CBC, BMP 11/10/18 06:30 11/10/18 06:30 INR, PTT INR 1.09 (0.83-1.09) 11/07/18 21:20 Assessment/Plan A/P Acute on Chronic Diastolic Heart Failure Volume Overload Acute on Chronic Hypoxic and Hypercapneic Respiratory Failure COPD UTI Morbid Obesity h/o DVT Hypothyroidism Bipolar Disorder Depression - lasix - monitor urine output, creatinine - daily weights - O2 to keep Spo2 >90% - inhaled bronchodilators - continue volume assist control - spontaneous breathing trials as tolerated when more euvolemic - ENT eval as pt c/o trach site pain when cuff inflated - anticoagulation - PO as tolerated - will resume ativan as pt on medication in the [facility] Problem List - Problems (1) Acute on chronic respiratory failure with hypoxia and hypercapnia Code(s): J96.21 - ACUTE AND CHRONIC RESPIRATORY FAILURE WITH HYPOXIA; J96.22 - ACUTE AND CHRONIC RESPIRATORY FAILURE WITH HYPERCAPNIA (2) Acute on chronic diastolic (congestive) heart failure Code(s): I50.33 - ACUTE ON CHRONIC DIASTOLIC (CONGESTIVE) HEART FAILURE (3) Volume overload Code(s): E87.70 - FLUID OVERLOAD, UNSPECIFIED
--- NOTE | 2018-11-10 15:22 | PN ---
Progress Note, Physician Chief Complaint: Presently comfortable History of Present Illness: This is a 53 year old female with a PMH of a long prior history of smoking, tracheostomy about a year ago, dCHF, chronic hypercapnia, hypoxic respiratory failure, COPD, prior PNA, venous thromboembolism (on Eliquis), HLD, morbid obesity, and hypothyroidism, and extensive psychiatric history, coming from [facility] who was BIBEMS for chest pain, SOB, non-productive cough x 2 days and diffuse body swelling x 3 weeks. The chest pain was non radiating and associated with her breathing. Troponin is negative x2 Echocardi[facility]arm 11/08/18 TDS study EF 55-60% Positive UTI 11/10/18 She is less massively fluid overloaded with anasarca c/w yesterday. - Current Medication List Current Medications: Active Medications Albuterol/Ipratropium (Duoneb -) 1 amp NEB RQID [facility] Last Admin: 11/10/18 12:03 Dose: 1 amp Apixaban (Eliquis -) 5 mg PO BID [facility] Aripiprazole (Abilify) 10 mg PO DAILY [facility] Last Admin: 11/10/18 11:00 Dose: 10 mg Aspirin (Asa -) 81 mg PO DAILY [facility] Last Admin: 11/10/18 10:59 Dose: 81 mg Atorvastatin Calcium (Lipitor -) 20 mg PO HS [facility] Last Admin: 11/09/18 23:15 Dose: 20 mg Docusate Sodium (Colace -) 100 mg PO HS [facility] Last Admin: 11/09/18 23:26 Dose: Not Given Escitalopram Oxalate (Lexapro -) 20 mg PO DAILY [facility] Last Admin: 11/10/18 10:59 Dose: 20 mg Furosemide (Lasix Injection -) 40 mg IVPUSH BID@0600,1400 [facility] Last Admin: 11/10/18 14:55 Dose: 40 mg Gabapentin (Neurontin -) 400 mg PO TID [facility] Last Admin: 11/10/18 14:30 Dose: 400 mg Levothyroxine Sodium (Synthroid -) 25 mcg PO DAILY@0700 [facility] Last Admin: 11/10/18 06:06 Dose: 25 mcg Lisinopril (Prinivil) 10 mg PO DAILY [facility] Last Admin: 11/10/18 10:59 Dose: 10 mg Lorazepam (Ativan -) 0.5 mg PO BID PRN PRN Reason: ANXIETY Last Admin: 11/09/18 23:14 Dose: 0.5 mg Metoprolol Tartrate (Lopressor -) 12.5 mg PO BID [facility] Mirtazapine (Remeron -) 15 mg PO [facility] Last Admin: 11/09/18 23:14 Dose: 15 mg Montelukast Sodium (Singulair -) 10 mg PO [facility] Last Admin: 11/09/18 23:14 Dose: 10 mg Multivitamins/Minerals/Vitamin C (Tab-A-Vit -) 1 tab PO DAILY [facility] Last Admin: 11/10/18 10:59 Dose: 1 tab Nitroglycerin (Nitrostat -) 0.4 mg SL Q5M PRN PRN Reason: FOR CHEST PAIN Pantoprazole Sodium (Protonix -) 40 mg PO DAILY [facility] Last Admin: 11/10/18 10:59 Dose: 40 mg Tramadol HCl (Ultram -) 50 mg PO Q6H PRN PRN Reason: PAIN LEVEL 6-10 Last Admin: 11/10/18 13:11 Dose: 50 mg Trazodone HCl (Desyrel -) 100 mg PO [facility] Last Admin: 11/09/18 23:15 Dose: 100 mg - Objective Vital Signs: Vital Signs Temperature 98.5 F 11/10/18 13:26 Pulse Rate 52 L 11/10/18 13:26 Respiratory Rate 20 11/10/18 13:26 Blood Pressure 110/49 L 11/10/18 13:26 O2 Sat by Pulse Oximetry (%) 97 11/09/18 22:05 Constitutional: Yes: No Distress, Obese HENT: Yes: WNL Neck: Yes: WNL Cardiovascular: Yes: Regular Rate and Rhythm, S1, S2 (No MRHG) Respiratory: Yes: CTA Bilaterally (Distant air sounds) Gastrointestinal: Yes: Soft Edema: Yes Edema: LUE: 1+, RUE: 1+, LLE: 1+, RLE: 1+ Neurological: Yes: Alert, Oriented Labs: CBC, BMP 11/10/18 06:30 11/10/18 06:30 INR, PTT INR 1.09 (0.83-1.09) 11/07/18 21:20 Assessment/Plan This is a 53 year old female with a PMH of a long prior history of smoking, tracheostomy about a year ago, dCHF, chronic hypercapnia, hypoxic respiratory failure, COPD, prior PNA, venous thromboembolism (on Eliquis), HLD, morbid obesity, and hypothyroidism, and extensive psychiatric history, coming from [facility] who was BIBEMS for chest pain, SOB, non-productive cough x 2 days and diffuse body swelling x 3 weeks. The chest pain was non radiating and associated with her breathing. Troponin is negative x2 Echocardiogarm 11/08/18 TDS study EF 55-60% Positive UTI She appears less fluid overloaded with anasarca c/w yesterday Chest pain Most Likely non cardiac Troponin negative Anasarca -Receiving Lasix 40mg IV BID -She was taking Lasix PO 120 mg at home. -may need to increase dose if insufficient urine output -monitor strict I/os and daily weights, Keep O >I -monitor bun/creat, electrolytes and replete as needed -consider change to Torsemide PO 100 mg as an outpatient instead of PO Lasix because Torsemide has superior absorption as compared to Lasix. -review of [place] meds she was on Entresto and spironolactone (unknown indication given Normal LVEF) -currently on Lisinopril and metoprolol -Ly metoprolol as below, ok to cont Lisinopril for now as long as BP tolerates Bradycardia-sinus -Hold metoprolol, (review of [place] meds she is not on metoprolol)
[2018-11-10] MEDS: LOPERAMIDE HCL 2 MG CAPSULE PO PRN (17:28)
[2018-11-10] MEDS ORDERED: traZODone HCL 50 MG TABLET (FP) ONE (20:26)
[2018-11-10] MEDS: APIXABAN 5 MG TABLET PO SCH (22:18)
[2018-11-10] MEDS: DOCUSATE SODIUM 100 MG CAPSULE (FP) PO SCH (22:18)
[2018-11-10] MEDS: MIRTAZAPINE 15 MG TABLET (FP) PO SCH (22:18)
[2018-11-10] MEDS: MONTELUKAST NA 10 MG TABLET PO SCH (22:18)
[2018-11-10] MEDS: ATORVASTATIN CA 20 MG TABLET (FP) PO SCH (22:18)
[2018-11-10] MEDS: traZODone HCL 100 MG TABLET (FP) PO SCH (22:19)
[2018-11-11] MEDS: traMADol HCL 50 MG TABLET PO PRN ×3 (04:43→18:43)
[2018-11-11] MEDS: GABAPENTIN 400 MG CAPSULE (FP) PO SCH ×3 (05:28→23:44)
[2018-11-11] MEDS: FUROSEMIDE 40 MG/4 ML INJECTABLE VIAL IVPUSH SCH ×2 (05:28→13:16)
[2018-11-11] MEDS: LEVOTHYROXINE NA 25 MCG TABLET (FP) PO SCH (06:01)
[2018-11-11 07:17] LABS: ALBUMIN 3.4 g/dl (3.4-5.0); ALK PHOS 87 U/L (45-117); ANION GAP 6 MMOL/L (8-16); BILIRUBIN,TOTAL 0.4 mg/dL (0.2-1); BLOOD UREA NITROGEN 23 mg/dL (7-18); CALCIUM 9.2 mg/dL (8.5-10.1); CHLORIDE 97 mmol/L (98-107); CO2 35 mmol/L (21-32); CREATININE 0.6 mg/dL (0.55-1.3); GLUCOSE,RANDOM 84 mg/dL (74-106); POTASSIUM 4.1 mmol/L (3.5-5.1); SGOT/AST 16 U/L (15-37); SGPT/ALT 34 U/L (13-61); SODIUM 138 mmol/L (136-145)
[2018-11-11] MEDS: ALBUTEROL SO4 2.5/IPRATROPIUM 0.5 INH SOL 3 ML VIAL.NEB. NEB SCH ×4 (07:30→19:56)
--- NOTE | 2018-11-11 10:01 | PN ---
Progress Note (short form) - Note Progress Note: PULMONARY Still with shortness of breath, cough, generalized swelling. No fevers or chills. Vital Signs Period Temp Pulse Resp BP Sys/Petersen Pulse Ox Last 24 Hr 98.1 F-98.5 F 51-58 16-28 95-115/44-54 96-97 Intake & Output 11/08/18 11/09/18 11/10/18 11/11/18 23:59 23:59 23:59 23:59 Intake Total 1480 950 400 Output Total 975 2400 3900 1200 Balance -975 -920 -2950 -800 Weight 198.673 kg Gen: vented, awake Heart: RRR Lung: distant breath sounds Abd: soft, nontender Ext: + edema CBC, BMP 11/10/18 06:30 11/11/18 06:00 Active Medications Albuterol/Ipratropium (Duoneb -) 1 amp NEB RQID [facility] Last Admin: 11/11/18 07:30 Dose: 1 amp Apixaban (Eliquis -) 5 mg PO BID [facility] Last Admin: 11/10/18 22:18 Dose: 5 mg Aripiprazole (Abilify) 10 mg PO DAILY [facility] Last Admin: 11/10/18 11:00 Dose: 10 mg Aspirin (Asa -) 81 mg PO DAILY [facility] Last Admin: 11/10/18 10:59 Dose: 81 mg Atorvastatin Calcium (Lipitor -) 20 mg PO HS [facility] Last Admin: 11/10/18 22:18 Dose: 20 mg Docusate Sodium (Colace -) 100 mg PO HS [facility] Last Admin: 11/10/18 22:18 Dose: 100 mg Escitalopram Oxalate (Lexapro -) 20 mg PO DAILY [facility] Last Admin: 11/10/18 10:59 Dose: 20 mg Furosemide (Lasix Injection -) 40 mg IVPUSH BID@0600,1400 [facility] Last Admin: 11/11/18 05:28 Dose: 40 mg Gabapentin (Neurontin -) 400 mg PO TID [facility] Last Admin: 11/11/18 05:28 Dose: 400 mg Levothyroxine Sodium (Synthroid -) 25 mcg PO DAILY@0700 [facility] Last Admin: 11/11/18 06:01 Dose: 25 mcg Lisinopril (Prinivil) 10 mg PO DAILY [facility] Last Admin: 11/10/18 10:59 Dose: 10 mg Loperamide HCl (Imodium -) 2 mg PO Q8H PRN PRN Reason: DIARRHEA Last Admin: 11/10/18 17:28 Dose: 2 mg Lorazepam (Ativan -) 0.5 mg PO BID PRN PRN Reason: ANXIETY Last Admin: 11/09/18 23:14 Dose: 0.5 mg Metoprolol Tartrate (Lopressor -) 12.5 mg PO BID [facility] Last Admin: 11/10/18 22:19 Dose: 12.5 mg Mirtazapine (Remeron -) 15 mg PO HS [facility] Last Admin: 11/10/18 22:18 Dose: 15 mg Montelukast Sodium (Singulair -) 10 mg PO [facility] Last Admin: 11/10/18 22:18 Dose: 10 mg Multivitamins/Minerals/Vitamin C (Tab-A-Vit -) 1 tab PO DAILY [facility] Last Admin: 11/10/18 10:59 Dose: 1 tab Nitroglycerin (Nitrostat -) 0.4 mg SL Q5M PRN PRN Reason: FOR CHEST PAIN Pantoprazole Sodium (Protonix -) 40 mg PO DAILY [facility] Last Admin: 11/10/18 10:59 Dose: 40 mg Tramadol HCl (Ultram -) 50 mg PO Q6H PRN PRN Reason: PAIN LEVEL 6-10 Last Admin: 11/11/18 04:43 Dose: 50 mg Trazodone HCl (Desyrel -) 100 mg PO [facility] Last Admin: 11/10/18 22:19 Dose: 100 mg A/P Acute on Chronic Diastolic Heart Failure Volume Overload Acute on Chronic Hypoxic and Hypercapneic Respiratory Failure COPD Morbid Obesity h/o DVT Hypothyroidism Bipolar Disorder Depression - continue lasix - monitor urine output, creatinine - daily weights - O2 to keep Spo2 >90% - inhaled bronchodilators - can defer systemic steroids at this time - continue volume assist control - spontaneous breathing trials as tolerated when more euvolemic - continue anticoagulation - PO as tolerated Problem List - Problems (1) Acute on chronic respiratory failure with hypoxia and hypercapnia Code(s): J96.21 - ACUTE AND CHRONIC RESPIRATORY FAILURE WITH HYPOXIA; J96.22 - ACUTE AND CHRONIC RESPIRATORY FAILURE WITH HYPERCAPNIA (2) Acute on chronic diastolic (congestive) heart failure Code(s): I50.33 - ACUTE ON CHRONIC DIASTOLIC (CONGESTIVE) HEART FAILURE (3) Volume overload Code(s): E87.70 - FLUID OVERLOAD, UNSPECIFIED
[2018-11-11] MEDS ORDERED: PT OWN MED DRAWER 7, Y5N ONE (10:21)
[2018-11-11] MEDS: LISINOPRIL 10 MG TABLET (FP) PO SCH (10:23)
[2018-11-11] MEDS: MULTIVITAMINS (DAILY MVI) TABLET (FP) PO SCH (10:23)
[2018-11-11] MEDS: ESCITALOPRAM OXALATE 20 MG TABLET (FP) PO SCH (10:23)
[2018-11-11] MEDS: ASPIRIN 81 MG CHEWABLE TABLETS PO SCH (10:23)
[2018-11-11] MEDS: APIXABAN 5 MG TABLET PO SCH ×2 (10:23→23:43)
[2018-11-11] MEDS: PANTOPRAZOLE 40 MG TABLET (FP) PO SCH (10:23)
[2018-11-11] MEDS: ARIPiprazole 10 MG TABLET PO SCH (10:24)
[2018-11-11] MEDS: LORazepam 0.5 MG TABLET PO PRN ×2 (11:57→23:43)
--- NOTE | 2018-11-11 12:08 | PN ---
Progress Note (short form) - Note Progress Note: uncomfortable has pain in trach site and legs still edema anasarca++ no sob on vent Vital Signs - 24 hr 11/10/18 11/10/18 11/10/18 12:09 13:26 16:04 Temperature 98.5 F Pulse Rate 52 L Respiratory 25 H 20 26 H Rate Blood Pressure 110/49 L O2 Sat by Pulse Oximetry (%) 11/10/18 11/10/18 11/10/18 18:47 21:00 22:10 Temperature Pulse Rate 56 L Respiratory 28 H 16 Rate Blood Pressure 110/54 L O2 Sat by Pulse 96 Oximetry (%) 11/10/18 11/11/18 11/11/18 23:13 02:00 02:04 Temperature 98.1 F Pulse Rate 54 L 51 L Respiratory 25 H 20 23 H Rate Blood Pressure 95/45 L O2 Sat by Pulse 96 Oximetry (%) 11/11/18 11/11/18 11/11/18 05:26 06:00 06:06 Temperature 98.2 F Pulse Rate 51 L Respiratory 16 20 20 Rate Blood Pressure 115/44 L O2 Sat by Pulse Oximetry (%) 11/11/18 11/11/18 11/11/18 08:00 08:21 09:00 Temperature Pulse Rate 58 L Respiratory 25 H Rate Blood Pressure O2 Sat by Pulse 98 97 98 Oximetry (%) 11/11/18 11:25 Temperature Pulse Rate Respiratory 19 Rate Blood Pressure O2 Sat by Pulse Oximetry (%) Current Medications Generic Name Dose Route Start Last Admin Trade Name Freq PRN Reason Stop Dose Admin Albuterol/Ipratropium 1 amp 11/08/18 08:00 11/11/18 11:30 Duoneb - NEB 1 amp RQID [facility] Administration Apixaban 5 mg 11/10/18 11:39 11/11/18 10:23 Eliquis - PO 5 mg BID [facility] Administration Aripiprazole 10 mg 11/08/18 10:00 11/11/18 10:24 Abilify PO 10 mg DAILY [facility] Administration Aspirin 81 mg 11/08/18 10:00 11/11/18 10:23 Asa - PO 81 mg DAILY [facility] Administration Atorvastatin Calcium 20 mg 11/08/18 22:00 11/10/18 22:18 Lipitor - PO 20 mg HS [facility] Administration Docusate Sodium 100 mg 11/08/18 22:00 11/10/18 22:18 Colace - PO 100 mg HS [facility] Administration Escitalopram Oxalate 20 mg 11/08/18 10:00 11/11/18 10:23 Lexapro - PO 20 mg DAILY [facility] Administration Furosemide 40 mg 11/08/18 06:00 11/11/18 05:28 Lasix Injection - IVPUSH 40 mg BID@0600,1400 [facility] Administration Gabapentin 400 mg 11/08/18 06:00 11/11/18 05:28 Neurontin - PO 400 mg TID [facility] Administration Levothyroxine Sodium 25 mcg 11/08/18 07:00 11/11/18 06:01 Synthroid - PO 25 mcg DAILY@0700 [facility] Administration Lisinopril 10 mg 11/08/18 10:00 11/11/18 10:23 Prinivil PO 10 mg DAILY [facility] Administration Loperamide HCl 2 mg 11/10/18 17:13 11/10/18 17:28 Imodium - PO 2 mg Q8H PRN Administration DIARRHEA Lorazepam 0.5 mg 11/09/18 10:48 11/11/18 11:57 Ativan - PO 0.5 mg BID PRN Administration ANXIETY Metoprolol Tartrate 12.5 mg 11/10/18 11:39 11/10/18 22:19 Lopressor - PO 12.5 mg BID [facility] Administration Mirtazapine 15 mg 11/08/18 22:00 11/10/18 22:18 Remeron - PO 15 mg HS [facility] Administration Montelukast Sodium 10 mg 11/08/18 22:00 11/10/18 22:18 Singulair - PO 10 mg HS [facility] Administration Multivitamins/Minerals/Vitamin C 1 tab 11/08/18 10:00 11/11/18 10:23 Tab-A-Vit - PO 1 tab DAILY [facility] Administration Nitroglycerin 0.4 mg 11/08/18 02:28 Nitrostat - SL Q5M PRN FOR CHEST PAIN Pantoprazole Sodium 40 mg 11/08/18 10:00 11/11/18 10:23 Protonix - PO 40 mg DAILY [facility] Administration Tramadol HCl 50 mg 11/10/18 11:39 11/11/18 04:43 Ultram - PO 50 mg Q6H PRN Administration PAIN LEVEL 6-10 Trazodone HCl 100 mg 11/08/18 22:00 11/10/18 22:19 Desyrel - PO 100 mg HS [facility] Administration Laboratory Results - last 24 hr 11/11/18 06:00 Sodium 138 Potassium 4.1 Chloride 97 L Carbon Dioxide 35 H Anion Gap 6 L BUN 23 H Creatinine 0.6 Creat Clearance w eGFR 104.57 Random Glucose 84 Calcium 9.2 Total Bilirubin 0.4 AST 16 ALT 34 Alkaline Phosphatase 87 Total Protein 7.0 Albumin 3.4 weight 424lbs cxr-congested echo - noted physical exam awake/ morbidly obese s/p trach S1 S2 RRR Lungs ---wheezing+ Abd- soft, non tender +++ edema neuro--- awake a/p CHF decompensation-- i/v lasix-- increase ?lopressor-- she was not on the medication in [place] -- dc meds check i and o weight pt daily dc iv azithromycin no iv antibiotics for urine cultures-- chronic pete UTI --was on chronic pete in [place] too for the last 2 months per pt due to sacral ulcer-- was changed 3 weeks ago-- urine culture- multiple organisms-- ID consulted ID eval appreciated -- no antibiotocs strict isolation vent support ENT eval -- c/o trach pain -- appreciated-- for endoscopy this Thursday Problem List - Problems (1) Acute on chronic diastolic (congestive) heart failure Code(s): I50.33 - ACUTE ON CHRONIC DIASTOLIC (CONGESTIVE) HEART FAILURE (2) Atypical chest pain Code(s): R07.89 - OTHER CHEST PAIN (3) UTI (urinary tract infection) Code(s): N39.0 - URINARY TRACT INFECTION, SITE NOT SPECIFIED Qualifiers: Urinary tract infection type: catheter-associated UTI Indwelling urinary catheter type: indwelling urethral catheter Encounter type: initial encounter Qualified Code(s): T83.511A - Infection and inflammatory reaction due to indwelling urethral catheter, initial encounter; N39.0 - Urinary tract infection , site not specified (4) Volume overload Code(s): E87.70 - FLUID OVERLOAD, UNSPECIFIED
[2018-11-11] MEDS: METOPROLOL TARTRATE 25 MG TABLET (FP) PO SCH (12:17)
[2018-11-11] MEDS: LOPERAMIDE HCL 2 MG CAPSULE PO PRN (12:43)
--- NOTE | 2018-11-11 17:07 | PN ---
Progress Note (short form) - Note Progress Note: ENT pt remains stable on vent minimal dyspnea trach secure, functioning tracheobronchoscopy performed with flexible laryngoscope via trach tube trach tube patent, no obstruction, tube is non-fenestrated distal tube patent, trachea has no granulation or obstruction mild diffuse erythema of tracheal mucosa scattered small specks of dry blood left [id number] wall also some seen at sheeba no luminal mucus or blood mainstem bronchi patent without stenosis, lesion, mucus or blood in lumen scope was withdrawn reconfirming the above findings pt tolerated the procedure well, ventilator reattached and pt breathing comfortable with ventilator Impression acute on chronic respiratory failure exacerbated by congestive heart failure, positive fluid balance pt has trach pain, no pathology visualized to explain remains with stable ventilation and good trach function in present state Recommend continue present management with medical treatment of active problems continue trach tube and care continue ventilator as indicated may consider trach tube change next week or so as pts respiratory status improves explained that a change would give her discomfort related to the tube change, may not resolve her underlying discomfort. Azam Noe MD FACS Problem List - Problems (1) Respiratory failure Code(s): J96.90 - RESPIRATORY FAILURE, UNSP, UNSP W HYPOXIA OR HYPERCAPNIA Qualifiers: Chronicity: acute on chronic (2) Tracheostomy dependence Code(s): Z93.0 - TRACHEOSTOMY STATUS
[2018-11-11] MEDS ORDERED: traZODone HCL 50 MG TABLET (FP) ONE (23:35)
[2018-11-11] MEDS: MONTELUKAST NA 10 MG TABLET PO SCH (23:43)
[2018-11-11] MEDS: MIRTAZAPINE 15 MG TABLET (FP) PO SCH (23:43)
[2018-11-11] MEDS: ATORVASTATIN CA 20 MG TABLET (FP) PO SCH (23:43)
[2018-11-11] MEDS: traZODone HCL 100 MG TABLET (FP) PO SCH (23:44)
[2018-11-11] MEDS: DOCUSATE SODIUM 100 MG CAPSULE (FP) PO SCH (23:44)
[2018-11-12] MEDS: traMADol HCL 50 MG TABLET PO PRN ×2 (02:51→10:29)
[2018-11-12] MEDS: GABAPENTIN 400 MG CAPSULE (FP) PO SCH ×3 (06:47→22:39)
[2018-11-12] MEDS: LEVOTHYROXINE NA 25 MCG TABLET (FP) PO SCH (06:48)
[2018-11-12] MEDS: FUROSEMIDE 40 MG/4 ML INJECTABLE VIAL IVPUSH SCH ×2 (07:02→13:40)
[2018-11-12] MEDS: ALBUTEROL SO4 2.5/IPRATROPIUM 0.5 INH SOL 3 ML VIAL.NEB. NEB SCH ×4 (08:12→20:17)
[2018-11-12 08:43] LABS: ANION GAP 4 MMOL/L (8-16); BLOOD UREA NITROGEN 19 mg/dL (7-18); CALCIUM 9.8 mg/dL (8.5-10.1); CHLORIDE 95 mmol/L (98-107); CO2 37 mmol/L (21-32); CREATININE 0.6 mg/dL (0.55-1.3); GLUCOSE,RANDOM 97 mg/dL (74-106); POTASSIUM 4.2 mmol/L (3.5-5.1); SODIUM 137 mmol/L (136-145)
[2018-11-12] MEDS ORDERED: PT OWN MED DRAWER 7, Y5N ONE (10:26)
[2018-11-12] MEDS: ESCITALOPRAM OXALATE 20 MG TABLET (FP) PO SCH (10:35)
[2018-11-12] MEDS: PANTOPRAZOLE 40 MG TABLET (FP) PO SCH (10:35)
[2018-11-12] MEDS: ASPIRIN 81 MG CHEWABLE TABLETS PO SCH (10:35)
[2018-11-12] MEDS: APIXABAN 5 MG TABLET PO SCH ×2 (10:35→22:40)
[2018-11-12] MEDS: LISINOPRIL 10 MG TABLET (FP) PO SCH (10:35)
[2018-11-12] MEDS: MULTIVITAMINS (DAILY MVI) TABLET (FP) PO SCH (10:35)
--- NOTE | 2018-11-12 10:41 | PN ---
Progress Note (short form) - Note Progress Note: pt seen/ examined chart reviewed. awake/ comfortable no distress Vital Signs Temp 98.2 F 11/12/18 06:00 Pulse 58 L 11/12/18 06:00 Resp 24 H 11/12/18 06:40 BP 125/65 11/12/18 06:00 Pulse Ox 98 11/12/18 08:00 Intake & Output 11/11/18 11/11/18 11/12/18 11:59 23:59 11:59 Intake Total 400 800 Output Total 3000 3100 1100 Balance -2600 -2300 -1100 Weight 424 lb 12.8 oz 424 lb 424 lb Intake: Oral 400 800 Output: Urine 3000 3100 1100 Carroll 3000 3100 1100 Other: Voiding Method Incontinent Incontinent Incontinent Bowel Movement No Height 5 ft 1 in Body Mass Index (BMI) 80.1 Weight Measurement Method Built in Bedscale Built in Bedscale Active Medications Albuterol/Ipratropium (Duoneb -) 1 amp NEB RQID [facility] Last Admin: 11/12/18 08:12 Dose: 1 amp Apixaban (Eliquis -) 5 mg PO BID [facility] Last Admin: 11/11/18 23:43 Dose: 5 mg Aripiprazole (Abilify) 10 mg PO DAILY [facility] Last Admin: 11/11/18 10:24 Dose: 10 mg Aspirin (Asa -) 81 mg PO DAILY [facility] Last Admin: 11/11/18 10:23 Dose: 81 mg Atorvastatin Calcium (Lipitor -) [address] [facility] Last Admin: 11/11/18 23:43 Dose: 20 mg Docusate Sodium (Colace -) [address] [facility] Last Admin: 11/11/18 23:44 Dose: Not Given Escitalopram Oxalate (Lexapro -) 20 mg PO DAILY [facility] Last Admin: 11/11/18 10:23 Dose: 20 mg Furosemide (Lasix Injection -) 60 mg IVPUSH BID@0600,1400 [facility] Last Admin: 11/12/18 07:02 Dose: 60 mg Gabapentin (Neurontin -) 400 mg PO TID [facility] Last Admin: 11/12/18 06:47 Dose: 400 mg Levothyroxine Sodium (Synthroid -) 25 mcg PO DAILY@0700 [facility] Last Admin: 11/12/18 06:48 Dose: 25 mcg Lisinopril (Prinivil) 10 mg PO DAILY [facility] Last Admin: 11/11/18 10:23 Dose: 10 mg Loperamide HCl (Imodium -) 2 mg PO Q8H PRN PRN Reason: DIARRHEA Last Admin: 11/11/18 12:43 Dose: 2 mg Lorazepam (Ativan -) 0.5 mg PO BID PRN PRN Reason: ANXIETY Last Admin: 11/11/18 23:43 Dose: 0.5 mg Mirtazapine (Remeron -) [address] [facility] Last Admin: 11/11/18 23:43 Dose: 15 mg Montelukast Sodium (Singulair -) [address] [facility] Last Admin: 11/11/18 23:43 Dose: 10 mg Multivitamins/Minerals/Vitamin C (Tab-A-Vit -) 1 tab PO DAILY [facility] Last Admin: 11/11/18 10:23 Dose: 1 tab Nitroglycerin (Nitrostat -) 0.4 mg SL Q5M PRN PRN Reason: FOR CHEST PAIN Pantoprazole Sodium (Protonix -) 40 mg PO DAILY [facility] Last Admin: 11/11/18 10:23 Dose: 40 mg Tramadol HCl (Ultram -) 50 mg PO Q6H PRN PRN Reason: PAIN LEVEL 6-10 Last Admin: 11/12/18 02:51 Dose: 50 mg Trazodone HCl (Desyrel -) [address] [facility] Last Admin: 11/11/18 23:44 Dose: 100 mg CBC, BMP 11/10/18 06:30 11/12/18 07:30 Microbiology 11/07/18 21:20 Urine Culture - Final Urine - Urine - Catheterized Providencia Stuartii Enterococcus Faecalis Physical exam awake/ morbidly obese s/p trach S1 S2 RRR Lungs ---wheezing+-- SCATTERED Abd- soft, non tender +++ edema neuro--- awake a/p CHF decompensation-- i/v lasix-- Off abx monitor lytes will follow Problem List - Problems (1) Acute on chronic diastolic (congestive) heart failure Code(s): I50.33 - ACUTE ON CHRONIC DIASTOLIC (CONGESTIVE) HEART FAILURE (2) Atypical chest pain Code(s): R07.89 - OTHER CHEST PAIN (3) Volume overload Code(s): E87.70 - FLUID OVERLOAD, UNSPECIFIED (4) Bipolar 1 disorder Code(s): F31.9 - BIPOLAR DISORDER, UNSPECIFIED (5) Diabetes Code(s): E11.9 - TYPE 2 DIABETES MELLITUS WITHOUT COMPLICATIONS
[2018-11-12] MEDS: ARIPiprazole 10 MG TABLET PO SCH (10:43)
[2018-11-12] MEDS: LORazepam 0.5 MG TABLET PO PRN ×2 (11:30→22:39)
--- NOTE | 2018-11-12 16:35 | PN ---
Progress Note (short form) - Note Progress Note: PULMONARY Resting comfortably on vent Gen: vented, awake Heart: RRR Lung: distant breath sounds Abd: soft, nontender Ext: + edema labs/meds/notes/iages reviewed A/P Acute on Chronic Diastolic Heart Failure Volume Overload Acute on Chronic Hypoxic and Hypercapneic Respiratory Failure COPD Morbid Obesity h/o DVT Hypothyroidism Bipolar Disorder Depression - continue lasix - monitor urine output, creatinine - daily weights - O2 to keep Spo2 >90% - inhaled bronchodilators - can defer systemic steroids at this time - continue volume assist control - spontaneous breathing trials as tolerated when more euvolemic - continue anticoagulation - PO as tolerated Marcus ALVA MD
[2018-11-12] MEDS ORDERED: traZODone HCL 50 MG TABLET (FP) ONE (22:23)
[2018-11-12] MEDS: ATORVASTATIN CA 20 MG TABLET (FP) PO SCH (22:39)
[2018-11-12] MEDS: MIRTAZAPINE 15 MG TABLET (FP) PO SCH (22:40)
[2018-11-12] MEDS: DOCUSATE SODIUM 100 MG CAPSULE (FP) PO SCH (22:40)
[2018-11-12] MEDS: traZODone HCL 100 MG TABLET (FP) PO SCH (22:40)
[2018-11-12] MEDS: MONTELUKAST NA 10 MG TABLET PO SCH (22:41)
[2018-11-13] MEDS: FUROSEMIDE 40 MG/4 ML INJECTABLE VIAL IVPUSH SCH ×2 (05:53→15:10)
[2018-11-13] MEDS: GABAPENTIN 400 MG CAPSULE (FP) PO SCH ×3 (05:53→22:08)
[2018-11-13] MEDS: traMADol HCL 50 MG TABLET PO PRN ×3 (06:13→20:27)
[2018-11-13] MEDS: LEVOTHYROXINE NA 25 MCG TABLET (FP) PO SCH (06:22)
[2018-11-13 07:50] LABS: ALBUMIN 3.3 g/dl (3.4-5.0); ALK PHOS 91 U/L (45-117); ANION GAP 6 MMOL/L (8-16); BILIRUBIN,TOTAL 0.6 mg/dL (0.2-1); BLOOD UREA NITROGEN 16 mg/dL (7-18); CALCIUM 9.2 mg/dL (8.5-10.1); CHLORIDE 95 mmol/L (98-107); CO2 34 mmol/L (21-32); CREATININE 0.6 mg/dL (0.55-1.3); GLUCOSE,RANDOM 93 mg/dL (74-106); POTASSIUM 3.9 mmol/L (3.5-5.1); SGOT/AST 13 U/L (15-37); SGPT/ALT 29 U/L (13-61); SODIUM 135 mmol/L (136-145)
[2018-11-13 07:56] LABS: BASO % 0.5 % (0-2.0); HEMATOCRIT 29.2 % (32.4-45.2); HEMOGLOBIN 9.5 GM/dL (10.7-15.3); LYMPH % 23.4 % (8-40); MCH 26.7 pg (25.7-33.7); MCHC 32.6 g/dl (32.0-36.0); MEAN CELL VOLUME 82.1 fl (80-96); MEAN PLT VOLUME 8.1 fl (7.5-11.1); MONO % 4.2 % (3.8-10.2); NEUT % 69.9 % (42.8-82.8); PLATELET COUNT 253 K/MM3 (134-434); RBC 3.55 M/mm3 (3.60-5.2); RDW 15.7 % (11.6-15.6); WHITE BLOOD COUNT 8.2 K/mm3 (4.0-10.0)
[2018-11-13] MEDS: ALBUTEROL SO4 2.5/IPRATROPIUM 0.5 INH SOL 3 ML VIAL.NEB. NEB SCH ×4 (08:10→20:00)
[2018-11-13] MEDS: ESCITALOPRAM OXALATE 20 MG TABLET (FP) PO SCH (12:32)
[2018-11-13] MEDS: LISINOPRIL 10 MG TABLET (FP) PO SCH (12:33)
[2018-11-13] MEDS: ASPIRIN 81 MG CHEWABLE TABLETS PO SCH (12:33)
[2018-11-13] MEDS: PANTOPRAZOLE 40 MG TABLET (FP) PO SCH (12:33)
[2018-11-13] MEDS: APIXABAN 5 MG TABLET PO SCH ×2 (12:33→22:08)
[2018-11-13] MEDS: MULTIVITAMINS (DAILY MVI) TABLET (FP) PO SCH (12:34)
[2018-11-13] MEDS: ARIPiprazole 10 MG TABLET PO SCH (12:35)
--- NOTE | 2018-11-13 12:44 | PN ---
Progress Note (short form) - Note Progress Note: no distress has pain in trach site and legs still edema anasarca++ no sob on vent Vital Signs - 24 hr 11/12/18 11/12/18 11/12/18 14:20 18:27 19:13 Temperature 98.0 F Pulse Rate 62 Respiratory 25 H 18 26 H Rate Blood Pressure 137/68 O2 Sat by Pulse Oximetry (%) 11/12/18 11/12/18 11/12/18 21:00 22:18 22:31 Temperature 98.5 F Pulse Rate 66 Respiratory 25 H 18 Rate Blood Pressure 106/46 L O2 Sat by Pulse 98 Oximetry (%) 11/13/18 11/13/18 11/13/18 02:07 05:54 06:31 Temperature 98.8 F Pulse Rate 85 Respiratory 24 H 17 20 Rate Blood Pressure 140/73 O2 Sat by Pulse Oximetry (%) 11/13/18 10:12 Temperature Pulse Rate Respiratory 23 H Rate Blood Pressure O2 Sat by Pulse Oximetry (%) Current Medications Generic Name Dose Route Start Last Admin Trade Name Freq PRN Reason Stop Dose Admin Albuterol/Ipratropium 1 amp 11/08/18 08:00 11/13/18 12:24 Duoneb - NEB 1 amp RQID NOELLE Administration Apixaban 5 mg 11/10/18 11:39 11/13/18 12:33 Eliquis - PO 5 mg BID NOELLE Administration Aripiprazole 10 mg 11/08/18 10:00 11/13/18 12:35 Abilify PO 10 mg DAILY NOELLE Administration Aspirin 81 mg 11/08/18 10:00 11/13/18 12:33 Asa - PO 81 mg DAILY NOELLE Administration Atorvastatin Calcium 20 mg 11/08/18 22:00 11/12/18 22:39 Lipitor - PO 20 mg HS NOELLE Administration Docusate Sodium 100 mg 11/08/18 22:00 11/12/18 22:40 Colace - PO Not Given HS NOELLE Escitalopram Oxalate 20 mg 11/08/18 10:00 11/13/18 12:32 Lexapro - PO 20 mg DAILY NOELLE Administration Furosemide 60 mg 11/11/18 12:09 11/13/18 05:53 Lasix Injection - IVPUSH 60 mg BID@0600,1400 NOELLE Administration Gabapentin 400 mg 11/08/18 06:00 11/13/18 05:53 Neurontin - PO 400 mg TID NOELLE Administration Levothyroxine Sodium 25 mcg 11/08/18 07:00 11/13/18 06:22 Synthroid - PO 25 mcg DAILY@0700 NOELLE Administration Lisinopril 10 mg 11/08/18 10:00 11/13/18 12:33 Prinivil PO 10 mg DAILY NOELLE Administration Loperamide HCl 2 mg 11/10/18 17:13 11/11/18 12:43 Imodium - PO 2 mg Q8H PRN Administration DIARRHEA Lorazepam 0.5 mg 11/09/18 10:48 11/12/18 22:39 Ativan - PO 0.5 mg BID PRN Administration ANXIETY Mirtazapine 15 mg 11/08/18 22:00 11/12/18 22:40 Remeron - PO 15 mg HS NOELLE Administration Montelukast Sodium 10 mg 11/08/18 22:00 11/12/18 22:41 Singulair - PO 10 mg HS NOELLE Administration Multivitamins/Minerals/Vitamin C 1 tab 11/08/18 10:00 11/13/18 12:34 Tab-A-Vit - PO 1 tab DAILY NOELLE Administration Nitroglycerin 0.4 mg 11/08/18 02:28 Nitrostat - SL Q5M PRN FOR CHEST PAIN Pantoprazole Sodium 40 mg 11/08/18 10:00 11/13/18 12:33 Protonix - PO 40 mg DAILY NOELLE Administration Tramadol HCl 50 mg 11/10/18 11:39 11/13/18 12:33 Ultram - PO 50 mg Q6H PRN Administration PAIN LEVEL 6-10 Trazodone HCl 100 mg 11/08/18 22:00 11/12/18 22:40 Desyrel - PO 100 mg HS NOELLE Administration Laboratory Results - last 24 hr 11/13/18 11/13/18 06:35 06:35 WBC 8.2 RBC 3.55 L Hgb 9.5 L Hct 29.2 L MCV 82.1 MCH 26.7 MCHC 32.6 RDW 15.7 H Plt Count 253 MPV 8.1 Absolute Neuts (auto) 5.7 Neutrophils % 69.9 Lymphocytes % 23.4 D Monocytes % 4.2 Eosinophils % 2.0 Basophils % 0.5 Nucleated RBC % 0 Sodium 135 L Potassium 3.9 Chloride 95 L Carbon Dioxide 34 H Anion Gap 6 L BUN 16 Creatinine 0.6 Creat Clearance w eGFR 104.57 Random Glucose 93 Calcium 9.2 Total Bilirubin 0.6 AST 13 L ALT 29 Alkaline Phosphatase 91 Total Protein 7.0 Albumin 3.3 L weight 421lbs physical exam awake/ morbidly obese s/p trach S1 S2 RRR Lungs ---decreased wheezing+ Abd- soft, non tender +++ edema-- better neuro--- awake a/p CHF decompensation-- continue with IV Lasix check i and o weight pt daily UTI --was on chronic pete in [place] too for the last 2 months per pt due to sacral ulcer-- was changed 3 weeks ago-- urine culture- multiple organisms-- ID consulted ID eval appreciated -- no antibiotics strict isolation vent support ENT eval -- c/o trach pain --s/p endoscopy --tube change next week Problem List - Problems (1) Acute on chronic diastolic (congestive) heart failure Code(s): I50.33 - ACUTE ON CHRONIC DIASTOLIC (CONGESTIVE) HEART FAILURE (2) Atypical chest pain Code(s): R07.89 - OTHER CHEST PAIN (3) UTI (urinary tract infection) Code(s): N39.0 - URINARY TRACT INFECTION, SITE NOT SPECIFIED Qualifiers: Urinary tract infection type: catheter-associated UTI Indwelling urinary catheter type: indwelling urethral catheter Encounter type: initial encounter Qualified Code(s): T83.511A - Infection and inflammatory reaction due to indwelling urethral catheter, initial encounter; N39.0 - Urinary tract infection , site not specified (4) Volume overload Code(s): E87.70 - FLUID OVERLOAD, UNSPECIFIED
--- NOTE | 2018-11-13 13:24 | PN ---
Progress Note (short form) - Note Progress Note: Awake and alert on AC Mode of vent. Appears grossly volume overloaded. Intake & Output 11/10/18 11/11/18 11/12/18 11/13/18 23:59 23:59 23:59 23:59 Intake Total 950 1200 1250 Output Total 3900 6100 5600 1600 Balance -2950 -4900 -4350 -1600 Weight 438 lb 424 lb 424 lb 421 lb 12.8 oz Last Vital Signs Temp Pulse Resp BP Pulse Ox 98.3 F 67 23 H 117/58 L 98 11/13/18 09:00 11/13/18 09:00 11/13/18 10:12 11/13/18 09:00 11/12/18 21:00 Active Medications Albuterol/Ipratropium (Duoneb -) 1 amp NEB RQID [facility] Last Admin: 11/13/18 12:24 Dose: 1 amp Apixaban (Eliquis -) 5 mg PO BID [facility] Last Admin: 11/13/18 12:33 Dose: 5 mg Aripiprazole (Abilify) 10 mg PO DAILY [facility] Last Admin: 11/13/18 12:35 Dose: 10 mg Aspirin (Asa -) 81 mg PO DAILY [facility] Last Admin: 11/13/18 12:33 Dose: 81 mg Atorvastatin Calcium (Lipitor -) 20 mg PO HS [facility] Last Admin: 11/12/18 22:39 Dose: 20 mg Docusate Sodium (Colace -) 100 mg PO HS [facility] Last Admin: 11/12/18 22:40 Dose: Not Given Escitalopram Oxalate (Lexapro -) 20 mg PO DAILY [facility] Last Admin: 11/13/18 12:32 Dose: 20 mg Furosemide (Lasix Injection -) 60 mg IVPUSH BID@0600,1400 [facility] Last Admin: 11/13/18 05:53 Dose: 60 mg Gabapentin (Neurontin -) 400 mg PO TID [facility] Last Admin: 11/13/18 05:53 Dose: 400 mg Levothyroxine Sodium (Synthroid -) 25 mcg PO DAILY@0700 [facility] Last Admin: 11/13/18 06:22 Dose: 25 mcg Lisinopril (Prinivil) 10 mg PO DAILY [facility] Last Admin: 11/13/18 12:33 Dose: 10 mg Loperamide HCl (Imodium -) 2 mg PO Q8H PRN PRN Reason: DIARRHEA Last Admin: 11/11/18 12:43 Dose: 2 mg Lorazepam (Ativan -) 0.5 mg PO BID PRN PRN Reason: ANXIETY Last Admin: 11/12/18 22:39 Dose: 0.5 mg Mirtazapine (Remeron -) 15 mg PO HS [facility] Last Admin: 11/12/18 22:40 Dose: 15 mg Montelukast Sodium (Singulair -) 10 mg PO [facility] Last Admin: 11/12/18 22:41 Dose: 10 mg Multivitamins/Minerals/Vitamin C (Tab-A-Vit -) 1 tab PO DAILY [facility] Last Admin: 11/13/18 12:34 Dose: 1 tab Nitroglycerin (Nitrostat -) 0.4 mg SL Q5M PRN PRN Reason: FOR CHEST PAIN Pantoprazole Sodium (Protonix -) 40 mg PO DAILY [facility] Last Admin: 11/13/18 12:33 Dose: 40 mg Tramadol HCl (Ultram -) 50 mg PO Q6H PRN PRN Reason: PAIN LEVEL 6-10 Last Admin: 11/13/18 12:33 Dose: 50 mg Trazodone HCl (Desyrel -) 100 mg PO [facility] Last Admin: 11/12/18 22:40 Dose: 100 mg Gen: vented, awake Heart: RRR Lung: distant breath sounds Abd: soft, nontender Ext: + edema Laboratory Results - last 24 hr 11/13/18 11/13/18 06:35 06:35 WBC 8.2 RBC 3.55 L Hgb 9.5 L Hct 29.2 L MCV 82.1 MCH 26.7 MCHC 32.6 RDW 15.7 H Plt Count 253 MPV 8.1 Absolute Neuts (auto) 5.7 Neutrophils % 69.9 Lymphocytes % 23.4 D Monocytes % 4.2 Eosinophils % 2.0 Basophils % 0.5 Nucleated RBC % 0 Sodium 135 L Potassium 3.9 Chloride 95 L Carbon Dioxide 34 H Anion Gap 6 L BUN 16 Creatinine 0.6 Creat Clearance w eGFR 104.57 Random Glucose 93 Calcium 9.2 Total Bilirubin 0.6 AST 13 L ALT 29 Alkaline Phosphatase 91 Total Protein 7.0 Albumin 3.3 L A/P Acute on Chronic Diastolic Heart Failure Volume Overload Acute on Chronic Hypoxic and Hypercapneic Respiratory Failure COPD Morbid Obesity h/o DVT Hypothyroidism Bipolar Disorder Depression - Lasix - monitor urine output, creatinine - daily weights - O2 to keep Spo2 >90% - inhaled bronchodilators - Can defer systemic steroids - continue volume assist control for now - Hold on spontaneous breathing trials when more euvolemic - continue anticoagulation - PO as tolerated Dr Lagos
[2018-11-13] MEDS: traZODone HCL 100 MG TABLET (FP) PO SCH (22:08)
[2018-11-13] MEDS: DOCUSATE SODIUM 100 MG CAPSULE (FP) PO SCH (22:08)
[2018-11-13] MEDS: MONTELUKAST NA 10 MG TABLET PO SCH (22:08)
[2018-11-13] MEDS: MIRTAZAPINE 15 MG TABLET (FP) PO SCH (22:08)
[2018-11-13] MEDS: ATORVASTATIN CA 20 MG TABLET (FP) PO SCH (22:11)
[2018-11-14] MEDS: FUROSEMIDE 40 MG/4 ML INJECTABLE VIAL IVPUSH SCH ×2 (05:28→15:06)
[2018-11-14] MEDS: GABAPENTIN 400 MG CAPSULE (FP) PO SCH ×3 (05:28→22:05)
[2018-11-14] MEDS: LEVOTHYROXINE NA 25 MCG TABLET (FP) PO SCH (06:06)
[2018-11-14] MEDS: ALBUTEROL SO4 2.5/IPRATROPIUM 0.5 INH SOL 3 ML VIAL.NEB. NEB SCH ×4 (08:32→21:30)
[2018-11-14 09:12] LABS: HEMATOCRIT 29.5 % (32.4-45.2); HEMOGLOBIN 9.5 GM/dL (10.7-15.3); MCH 26.4 pg (25.7-33.7); MCHC 32.2 g/dl (32.0-36.0); MEAN CELL VOLUME 82.2 fl (80-96); MEAN PLT VOLUME 7.8 fl (7.5-11.1); PLATELET COUNT 237 K/MM3 (134-434); RBC 3.59 M/mm3 (3.60-5.2); RDW 15.7 % (11.6-15.6); WHITE BLOOD COUNT 7.2 K/mm3 (4.0-10.0)
[2018-11-14 09:40] LABS: ANION GAP 6 MMOL/L (8-16); BLOOD UREA NITROGEN 19 mg/dL (7-18); CALCIUM 9.5 mg/dL (8.5-10.1); CHLORIDE 95 mmol/L (98-107); CO2 34 mmol/L (21-32); CREATININE 0.7 mg/dL (0.55-1.3); GLUCOSE,RANDOM 126 mg/dL (74-106); SODIUM 135 mmol/L (136-145)
--- NOTE | 2018-11-14 10:40 | PN ---
Progress Note (short form) - Note Progress Note: no distress has pain in trach site and legs still edema-- decreasing anasarca++ no sob on vent Vital Signs - 24 hr 11/13/18 11/13/18 11/13/18 18:43 21:00 22:35 Temperature Pulse Rate Respiratory 15 20 Rate Blood Pressure O2 Sat by Pulse 98 Oximetry (%) 11/14/18 11/14/18 11/14/18 02:10 05:22 06:40 Temperature 98.2 F Pulse Rate 61 Respiratory 17 18 22 H Rate Blood Pressure 109/58 L O2 Sat by Pulse Oximetry (%) 11/14/18 11/14/18 11/14/18 10:19 10:44 14:28 Temperature 98.3 F Pulse Rate 74 Respiratory 25 H 20 26 H Rate Blood Pressure 121/61 O2 Sat by Pulse Oximetry (%) 11/14/18 11/14/18 15:05 18:02 Temperature 98.4 F Pulse Rate 68 65 Respiratory 25 H 22 H Rate Blood Pressure 117/60 122/79 O2 Sat by Pulse Oximetry (%) Current Medications Generic Name Dose Route Start Last Admin Trade Name Freq PRN Reason Stop Dose Admin Albuterol/Ipratropium 1 amp 11/08/18 08:00 11/14/18 16:47 Duoneb - NEB 1 amp RQID NOELLE Administration Apixaban 5 mg 11/10/18 11:39 11/14/18 11:01 Eliquis - PO 5 mg BID NOELLE Administration Aripiprazole 10 mg 11/08/18 10:00 11/14/18 11:06 Abilify PO 10 mg DAILY NOELLE Administration Aspirin 81 mg 11/08/18 10:00 11/14/18 11:02 Asa - PO 81 mg DAILY NOELLE Administration Atorvastatin Calcium 20 mg 11/08/18 22:00 11/13/18 22:11 Lipitor - PO 20 mg HS NOELLE Administration Docusate Sodium 100 mg 11/08/18 22:00 11/13/18 22:08 Colace - PO 100 mg HS NOELLE Administration Escitalopram Oxalate 20 mg 11/08/18 10:00 11/14/18 11:01 Lexapro - PO 20 mg DAILY NOELLE Administration Furosemide 60 mg 11/11/18 12:09 11/14/18 15:06 Lasix Injection - IVPUSH 60 mg BID@0600,1400 NOELLE Administration Gabapentin 400 mg 11/08/18 06:00 11/14/18 14:26 Neurontin - PO 400 mg TID NOELLE Administration Levothyroxine Sodium 25 mcg 11/08/18 07:00 11/14/18 06:06 Synthroid - PO 25 mcg DAILY@0700 NOELLE Administration Lisinopril 10 mg 11/08/18 10:00 11/14/18 11:01 Prinivil PO 10 mg DAILY NOELLE Administration Loperamide HCl 2 mg 11/10/18 17:13 11/11/18 12:43 Imodium - PO 2 mg Q8H PRN Administration DIARRHEA Mirtazapine 15 mg 11/08/18 22:00 11/13/18 22:08 Remeron - PO 15 mg HS NOELLE Administration Montelukast Sodium 10 mg 11/08/18 22:00 11/13/18 22:08 Singulair - PO 10 mg HS NOELLE Administration Multivitamins/Minerals/Vitamin C 1 tab 11/08/18 10:00 11/14/18 11:01 Tab-A-Vit - PO 1 tab DAILY NOELLE Administration Nitroglycerin 0.4 mg 11/08/18 02:28 Nitrostat - SL Q5M PRN FOR CHEST PAIN Pantoprazole Sodium 40 mg 11/08/18 10:00 11/14/18 11:02 Protonix - PO 40 mg DAILY NOELLE Administration Tramadol HCl 100 mg 11/14/18 10:48 11/14/18 11:02 Ultram - PO 100 mg Q6H PRN Administration PAIN LEVEL 6-10 Trazodone HCl 100 mg 11/08/18 22:00 11/13/18 22:08 Desyrel - PO 100 mg HS NOELLE Administration Laboratory Results - last 24 hr 11/14/18 11/14/18 08:50 08:50 WBC 7.2 RBC 3.59 L Hgb 9.5 L Hct 29.5 L MCV 82.2 MCH 26.4 MCHC 32.2 RDW 15.7 H Plt Count 237 MPV 7.8 Sodium 135 L Potassium 4.0 Chloride 95 L Carbon Dioxide 34 H Anion Gap 6 L BUN 19 H Creatinine 0.7 Creat Clearance w eGFR 87.53 Random Glucose 126 H Calcium 9.5 weight 420 lbs physical exam awake/ morbidly obese s/p trach S1 S2 RRR Lungs ---decreased wheezing+ Abd- soft, non tender +++ edema-- better neuro--- awake a/p CHF decompensation-- continue with IV Lasix check i and o weigh pt daily renal function stable UTI --was on chronic pete in [place] too for the last 2 months per pt due to sacral ulcer-- was changed 3 weeks ago-- urine culture- multiple organisms-- ID consulted ID eval appreciated -- no antibiotics strict isolation vent support ENT eval -- c/o trach pain --s/p endoscopy --tube change next week Pain -- increase tramadol - 2 tabs Problem List - Problems (1) Acute on chronic diastolic (congestive) heart failure Code(s): I50.33 - ACUTE ON CHRONIC DIASTOLIC (CONGESTIVE) HEART FAILURE (2) Atypical chest pain Code(s): R07.89 - OTHER CHEST PAIN (3) UTI (urinary tract infection) Code(s): N39.0 - URINARY TRACT INFECTION, SITE NOT SPECIFIED Qualifiers: Urinary tract infection type: catheter-associated UTI Indwelling urinary catheter type: indwelling urethral catheter Encounter type: initial encounter Qualified Code(s): T83.511A - Infection and inflammatory reaction due to indwelling urethral catheter, initial encounter; N39.0 - Urinary tract infection , site not specified (4) Volume overload Code(s): E87.70 - FLUID OVERLOAD, UNSPECIFIED
[2018-11-14] MEDS: APIXABAN 5 MG TABLET PO SCH ×2 (11:01→22:05)
[2018-11-14] MEDS: LISINOPRIL 10 MG TABLET (FP) PO SCH (11:01)
[2018-11-14] MEDS: ESCITALOPRAM OXALATE 20 MG TABLET (FP) PO SCH (11:01)
[2018-11-14] MEDS: MULTIVITAMINS (DAILY MVI) TABLET (FP) PO SCH (11:01)
[2018-11-14] MEDS: PANTOPRAZOLE 40 MG TABLET (FP) PO SCH (11:02)
[2018-11-14] MEDS: traMADol HCL 50 MG TABLET PO PRN ×2 (11:02→22:06)
[2018-11-14] MEDS: ASPIRIN 81 MG CHEWABLE TABLETS PO SCH (11:02)
[2018-11-14] MEDS ORDERED: PT OWN MED DRAWER 7, Y5N ONE (11:04)
[2018-11-14] MEDS: ARIPiprazole 10 MG TABLET PO SCH (11:06)
--- NOTE | 2018-11-14 12:59 | PN ---
Progress Note (short form) - Note Progress Note: Awake and alert on AC Mode of vent. There was a concern that there may have been food particles suctioned from the Trach this AM. The patient has never had this previously. She feels that this may have been dried secretions. Intake & Output 11/11/18 11/12/18 11/13/18 11/14/18 23:59 23:59 23:59 23:59 Intake Total 1200 1250 Output Total 6100 5600 6200 1100 Balance -4900 -4350 -6200 -1100 Weight 424 lb 424 lb 421 lb 12.8 oz 420 lb 3.2 oz Last Vital Signs Temp Pulse Resp BP Pulse Ox 98.3 F 74 20 121/61 98 11/14/18 10:44 11/14/18 10:44 11/14/18 10:44 11/14/18 10:44 11/13/18 21:00 Active Medications Albuterol/Ipratropium (Duoneb -) 1 amp NEB RQID [facility] Last Admin: 11/14/18 12:15 Dose: Not Given Apixaban (Eliquis -) 5 mg PO BID [facility] Last Admin: 11/14/18 11:01 Dose: 5 mg Aripiprazole (Abilify) 10 mg PO DAILY [facility] Last Admin: 11/14/18 11:06 Dose: 10 mg Aspirin (Asa -) 81 mg PO DAILY [facility] Last Admin: 11/14/18 11:02 Dose: 81 mg Atorvastatin Calcium (Lipitor -) 20 mg PO HS [facility] Last Admin: 11/13/18 22:11 Dose: 20 mg Docusate Sodium (Colace -) 100 mg PO HS [facility] Last Admin: 11/13/18 22:08 Dose: 100 mg Escitalopram Oxalate (Lexapro -) 20 mg PO DAILY [facility] Last Admin: 11/14/18 11:01 Dose: 20 mg Furosemide (Lasix Injection -) 60 mg IVPUSH BID@0600,1400 [facility] Last Admin: 11/14/18 05:28 Dose: 60 mg Gabapentin (Neurontin -) 400 mg PO TID [facility] Last Admin: 11/14/18 05:28 Dose: 400 mg Levothyroxine Sodium (Synthroid -) 25 mcg PO DAILY@0700 [facility] Last Admin: 11/14/18 06:06 Dose: 25 mcg Lisinopril (Prinivil) 10 mg PO DAILY [facility] Last Admin: 11/14/18 11:01 Dose: 10 mg Loperamide HCl (Imodium -) 2 mg PO Q8H PRN PRN Reason: DIARRHEA Last Admin: 11/11/18 12:43 Dose: 2 mg Mirtazapine (Remeron -) 15 mg PO [facility] Last Admin: 11/13/18 22:08 Dose: 15 mg Montelukast Sodium (Singulair -) 10 mg PO [facility] Last Admin: 11/13/18 22:08 Dose: 10 mg Multivitamins/Minerals/Vitamin C (Tab-A-Vit -) 1 tab PO DAILY [facility] Last Admin: 11/14/18 11:01 Dose: 1 tab Nitroglycerin (Nitrostat -) 0.4 mg SL Q5M PRN PRN Reason: FOR CHEST PAIN Pantoprazole Sodium (Protonix -) 40 mg PO DAILY [facility] Last Admin: 11/14/18 11:02 Dose: 40 mg Tramadol HCl (Ultram -) 100 mg PO Q6H PRN PRN Reason: PAIN LEVEL 6-10 Last Admin: 11/14/18 11:02 Dose: 100 mg Trazodone HCl (Desyrel -) 100 mg PO [facility] Last Admin: 11/13/18 22:08 Dose: 100 mg Gen: vented, awake Heart: RRR Lung: distant breath sounds Abd: soft, nontender Ext: + edema Laboratory Results - last 24 hr 11/14/18 11/14/18 08:50 08:50 WBC 7.2 RBC 3.59 L Hgb 9.5 L Hct 29.5 L MCV 82.2 MCH 26.4 MCHC 32.2 RDW 15.7 H Plt Count 237 MPV 7.8 Sodium 135 L Potassium 4.0 Chloride 95 L Carbon Dioxide 34 H Anion Gap 6 L BUN 19 H Creatinine 0.7 Creat Clearance w eGFR 87.53 Random Glucose 126 H Calcium 9.5 A/P Acute on Chronic Diastolic Heart Failure Volume Overload Acute on Chronic Hypoxic and Hypercapneic Respiratory Failure COPD Morbid Obesity h/o DVT Hypothyroidism Bipolar Disorder Depression - Would allow the patient to continue to eat with close observation - Lasix - monitor urine output, creatinine - daily weights - O2 to keep Spo2 >90% - inhaled bronchodilators - Can defer systemic steroids - continue volume assist control for now - Hold on spontaneous breathing trials until more euvolemic - continue anticoagulation - PO as tolerated Dr Lagos
[2018-11-14] MEDS ORDERED: traZODone HCL 50 MG TABLET (FP) ONE (22:02)
[2018-11-14] MEDS: MIRTAZAPINE 15 MG TABLET (FP) PO SCH (22:05)
[2018-11-14] MEDS: MONTELUKAST NA 10 MG TABLET PO SCH (22:05)
[2018-11-14] MEDS: traZODone HCL 100 MG TABLET (FP) PO SCH (22:05)
[2018-11-14] MEDS: DOCUSATE SODIUM 100 MG CAPSULE (FP) PO SCH (22:05)
[2018-11-14] MEDS: ATORVASTATIN CA 20 MG TABLET (FP) PO SCH (22:05)
[2018-11-15] MEDS: GABAPENTIN 400 MG CAPSULE (FP) PO SCH ×3 (05:12→21:41)
[2018-11-15] MEDS: FUROSEMIDE 40 MG/4 ML INJECTABLE VIAL IVPUSH SCH ×2 (05:12→14:36)
[2018-11-15] MEDS: traMADol HCL 50 MG TABLET PO PRN ×3 (05:57→18:21)
[2018-11-15] MEDS: LEVOTHYROXINE NA 25 MCG TABLET (FP) PO SCH (06:16)
[2018-11-15 07:43] LABS: ANION GAP 5 MMOL/L (8-16); BLOOD UREA NITROGEN 22 mg/dL (7-18); CALCIUM 9.4 mg/dL (8.5-10.1); CHLORIDE 95 mmol/L (98-107); CO2 35 mmol/L (21-32); CREATININE 0.7 mg/dL (0.55-1.3); GLUCOSE,RANDOM 98 mg/dL (74-106); POTASSIUM 4.1 mmol/L (3.5-5.1); SODIUM 136 mmol/L (136-145)
[2018-11-15] MEDS: ALBUTEROL SO4 2.5/IPRATROPIUM 0.5 INH SOL 3 ML VIAL.NEB. NEB SCH (08:17)
[2018-11-15] MEDS: ASPIRIN 81 MG CHEWABLE TABLETS PO SCH (10:51)
[2018-11-15] MEDS: MULTIVITAMINS (DAILY MVI) TABLET (FP) PO SCH (10:51)
[2018-11-15] MEDS: APIXABAN 5 MG TABLET PO SCH ×2 (10:51→21:41)
[2018-11-15] MEDS: LORazepam 0.5 MG TABLET PO PRN ×2 (10:51→21:41)
[2018-11-15] MEDS: LISINOPRIL 10 MG TABLET (FP) PO SCH (10:51)
[2018-11-15] MEDS: PANTOPRAZOLE 40 MG TABLET (FP) PO SCH (10:51)
[2018-11-15] MEDS: ESCITALOPRAM OXALATE 20 MG TABLET (FP) PO SCH (10:51)
[2018-11-15] MEDS: ARIPiprazole 10 MG TABLET PO SCH (10:52)
--- NOTE | 2018-11-15 11:07 | PN ---
Progress Note (short form) - Note Progress Note: pt seen/ examined chart reviewed awake/ comfrtable on vent anxious all f/u noted Vital Signs Temp 98.2 F 11/15/18 05:11 Pulse 63 11/15/18 05:11 Resp 20 11/15/18 10:32 BP 140/57 L 11/15/18 05:11 Pulse Ox 96 11/14/18 21:00 Intake & Output 11/14/18 11/14/18 11/15/18 11:59 23:59 11:59 Intake Total 800 Output Total 1100 1600 1700 Balance -1100 -800 -1700 Weight 420 lb 3.2 oz 417 lb 6 oz Intake: Oral 800 Output: Urine 1100 1600 1700 [place] 1100 1600 1700 Other: Voiding Method Indwelling Catheter Indwelling Catheter Bowel Movement No No No # Bowel Movements 1 Weight Measurement Method Built in Bedscale Built in Bedscale Active Medications Albuterol/Ipratropium (Duoneb -) 1 amp NEB RQID [facility] Last Admin: 11/15/18 08:17 Dose: 1 amp Apixaban (Eliquis -) 5 mg PO BID [facility] Last Admin: 11/15/18 10:51 Dose: 5 mg Aripiprazole (Abilify) 10 mg PO DAILY [facility] Last Admin: 11/15/18 10:52 Dose: 10 mg Aspirin (Asa -) 81 mg PO DAILY [facility] Last Admin: 11/15/18 10:51 Dose: 81 mg Atorvastatin Calcium (Lipitor -) 20 mg PO HS [facility] Last Admin: 11/14/18 22:05 Dose: 20 mg Docusate Sodium (Colace -) 100 mg PO HS [facility] Last Admin: 11/14/18 22:05 Dose: 100 mg Escitalopram Oxalate (Lexapro -) 20 mg PO DAILY [facility] Last Admin: 11/15/18 10:51 Dose: 20 mg Furosemide (Lasix Injection -) 60 mg IVPUSH BID@0600,1400 [facility] Last Admin: 11/15/18 05:12 Dose: 60 mg Gabapentin (Neurontin -) 400 mg PO TID [facility] Last Admin: 11/15/18 05:12 Dose: 400 mg Levothyroxine Sodium (Synthroid -) 25 mcg PO DAILY@0700 [facility] Last Admin: 11/15/18 06:16 Dose: 25 mcg Lisinopril (Prinivil) 10 mg PO DAILY [facility] Last Admin: 11/15/18 10:51 Dose: 10 mg Loperamide HCl (Imodium -) 2 mg PO Q8H PRN PRN Reason: DIARRHEA Last Admin: 11/11/18 12:43 Dose: 2 mg Lorazepam (Ativan -) 0.5 mg PO BID PRN PRN Reason: ANXIETY Last Admin: 11/15/18 10:51 Dose: 0.5 mg Mirtazapine (Remeron -) 15 mg PO [facility] Last Admin: 11/14/18 22:05 Dose: 15 mg Montelukast Sodium (Singulair -) 10 mg PO [facility] Last Admin: 11/14/18 22:05 Dose: 10 mg Multivitamins/Minerals/Vitamin C (Tab-A-Vit -) 1 tab PO DAILY [facility] Last Admin: 11/15/18 10:51 Dose: 1 tab Nitroglycerin (Nitrostat -) 0.4 mg SL Q5M PRN PRN Reason: FOR CHEST PAIN Pantoprazole Sodium (Protonix -) 40 mg PO DAILY [facility] Last Admin: 11/15/18 10:51 Dose: 40 mg Tramadol HCl (Ultram -) 100 mg PO Q6H PRN PRN Reason: PAIN LEVEL 6-10 Last Admin: 11/15/18 05:57 Dose: 100 mg Trazodone HCl (Desyrel -) 100 mg PO [facility] Last Admin: 11/14/18 22:05 Dose: 100 mg CBC, BMP 11/14/18 08:50 11/15/18 06:30 Physical exam awake/ morbidly obese. s/p trach-- Vent S1 S2 RRR Lungs --Bilateral Breath sounds Abd- soft, non tender. bs + Obese +++ edema-- neuro--- awake a/p CHF decompensation-- Chronic respiratory failure Morbid obesity Anemia Meds reviewed continue with IV Lasix check i and o weigh pt daily renal function stable Renewed ativan for anxiety will follow Problem List - Problems (1) Acute on chronic diastolic (congestive) heart failure Code(s): I50.33 - ACUTE ON CHRONIC DIASTOLIC (CONGESTIVE) HEART FAILURE (2) Atypical chest pain Code(s): R07.89 - OTHER CHEST PAIN (3) Volume overload Code(s): E87.70 - FLUID OVERLOAD, UNSPECIFIED (4) Bipolar 1 disorder Code(s): F31.9 - BIPOLAR DISORDER, UNSPECIFIED (5) Diabetes Code(s): E11.9 - TYPE 2 DIABETES MELLITUS WITHOUT COMPLICATIONS
--- NOTE | 2018-11-15 11:55 | PN ---
Progress Note, Physician History of Present Illness: PULMONARY ALERT,C/O SOB,+ THICK TRACHEAL SECRETIONS - Current Medication List Current Medications: Active Medications Albuterol/Ipratropium (Duoneb -) 1 amp NEB RQID [facility] Last Admin: 11/15/18 08:17 Dose: 1 amp Apixaban (Eliquis -) 5 mg PO BID [facility] Last Admin: 11/15/18 10:51 Dose: 5 mg Aripiprazole (Abilify) 10 mg PO DAILY [facility] Last Admin: 11/15/18 10:52 Dose: 10 mg Aspirin (Asa -) 81 mg PO DAILY [facility] Last Admin: 11/15/18 10:51 Dose: 81 mg Atorvastatin Calcium (Lipitor -) 20 mg PO [facility] Last Admin: 11/14/18 22:05 Dose: 20 mg Docusate Sodium (Colace -) 100 mg PO [facility] Last Admin: 11/14/18 22:05 Dose: 100 mg Escitalopram Oxalate (Lexapro -) 20 mg PO DAILY [facility] Last Admin: 11/15/18 10:51 Dose: 20 mg Furosemide (Lasix Injection -) 60 mg IVPUSH BID@0600,1400 [facility] Last Admin: 11/15/18 05:12 Dose: 60 mg Gabapentin (Neurontin -) 400 mg PO TID [facility] Last Admin: 11/15/18 05:12 Dose: 400 mg Levothyroxine Sodium (Synthroid -) 25 mcg PO DAILY@0700 [facility] Last Admin: 11/15/18 06:16 Dose: 25 mcg Lisinopril (Prinivil) 10 mg PO DAILY [facility] Last Admin: 11/15/18 10:51 Dose: 10 mg Loperamide HCl (Imodium -) 2 mg PO Q8H PRN PRN Reason: DIARRHEA Last Admin: 11/11/18 12:43 Dose: 2 mg Lorazepam (Ativan -) 0.5 mg PO BID PRN PRN Reason: ANXIETY Last Admin: 11/15/18 10:51 Dose: 0.5 mg Mirtazapine (Remeron -) 15 mg PO [facility] Last Admin: 11/14/18 22:05 Dose: 15 mg Montelukast Sodium (Singulair -) 10 mg PO [facility] Last Admin: 11/14/18 22:05 Dose: 10 mg Multivitamins/Minerals/Vitamin C (Tab-A-Vit -) 1 tab PO DAILY [facility] Last Admin: 11/15/18 10:51 Dose: 1 tab Nitroglycerin (Nitrostat -) 0.4 mg SL Q5M PRN PRN Reason: FOR CHEST PAIN Pantoprazole Sodium (Protonix -) 40 mg PO DAILY [facility] Last Admin: 11/15/18 10:51 Dose: 40 mg Tramadol HCl (Ultram -) 100 mg PO Q6H PRN PRN Reason: PAIN LEVEL 6-10 Last Admin: 11/15/18 05:57 Dose: 100 mg Trazodone HCl (Desyrel -) 100 mg PO HS [facility] Last Admin: 11/14/18 22:05 Dose: 100 mg - Objective Vital Signs: Vital Signs Temperature 98.2 F 11/15/18 05:11 Pulse Rate 72 11/15/18 10:00 Respiratory Rate 20 11/15/18 10:32 Blood Pressure 116/66 11/15/18 10:00 O2 Sat by Pulse Oximetry (%) 96 11/15/18 10:00 Constitutional: Yes: Calm, Obese Eyes: Yes: WNL HENT: Yes: WNL Neck: Yes: Supple (TRACH) Cardiovascular: Yes: Regular Rate and Rhythm, S1, S2 Respiratory: Yes: Rhonchi (SCATTEREED RHONCHI) Gastrointestinal: Yes: Normal Bowel Sounds, Soft Extremities: Yes: WNL Edema: No Labs: CBC, BMP 11/15/18 06:30 INR, PTT INR 1.09 (0.83-1.09) 11/07/18 21:20 Assessment/Plan A/P Acute on Chronic Diastolic Heart Failure Volume Overload Acute on Chronic Hypoxic and Hypercapneic Respiratory Failure COPD UTI Morbid Obesity h/o DVT Hypothyroidism Bipolar Disorder Depression - lasix - monitor urine output, creatinine - daily weights - O2 to keep Spo2 >90% - inhaled bronchodilators - continue volume assist control - spontaneous breathing trials as tolerated when more euvolemic - ENT eval as pt c/o trach site pain when cuff inflated - anticoagulation - PO as tolerated - ativan as pt on medication in the skilled nursing Problem List - Problems (1) Acute on chronic respiratory failure with hypoxia and hypercapnia Code(s): J96.21 - ACUTE AND CHRONIC RESPIRATORY FAILURE WITH HYPOXIA; J96.22 - ACUTE AND CHRONIC RESPIRATORY FAILURE WITH HYPERCAPNIA (2) Acute on chronic diastolic (congestive) heart failure Code(s): I50.33 - ACUTE ON CHRONIC DIASTOLIC (CONGESTIVE) HEART FAILURE (3) Volume overload Code(s): E87.70 - FLUID OVERLOAD, UNSPECIFIED
[2018-11-15] MEDS: ACETYLCYSTEINE 20% 200MG/ML 4 ML VIAL *FOR ORAL / INH USE ONLY NEB SCH ×3 (12:41→20:50)
[2018-11-15] MEDS: ALBUTEROL SO4 0.083% IH SOL 2.5 MG/3 ML VIAL.NEB. NEB SCH ×3 (12:41→20:50)
[2018-11-15] MEDS ORDERED: CYCLOBENZAPRINE HCL 5 MG TABLET PO PRN (15:55)
[2018-11-15] MEDS: ATORVASTATIN CA 20 MG TABLET (FP) PO SCH (21:41)
[2018-11-15] MEDS: traZODone HCL 100 MG TABLET (FP) PO SCH (21:41)
[2018-11-15] MEDS: MONTELUKAST NA 10 MG TABLET PO SCH (21:41)
[2018-11-15] MEDS: MIRTAZAPINE 15 MG TABLET (FP) PO SCH (21:41)
[2018-11-15] MEDS: DOCUSATE SODIUM 100 MG CAPSULE (FP) PO SCH (21:41)
[2018-11-16] MEDS: traMADol HCL 50 MG TABLET PO PRN ×3 (02:58→16:41)
[2018-11-16] MEDS: LEVOTHYROXINE NA 25 MCG TABLET (FP) PO SCH (06:13)
[2018-11-16] MEDS: FUROSEMIDE 40 MG/4 ML INJECTABLE VIAL IVPUSH SCH ×2 (06:13→14:57)
[2018-11-16] MEDS: GABAPENTIN 400 MG CAPSULE (FP) PO SCH ×3 (06:13→21:42)
[2018-11-16] MEDS: ALBUTEROL SO4 0.083% IH SOL 2.5 MG/3 ML VIAL.NEB. NEB SCH ×4 (08:45→20:20)
[2018-11-16] MEDS: ACETYLCYSTEINE 20% 200MG/ML 4 ML VIAL *FOR ORAL / INH USE ONLY NEB SCH ×4 (08:45→20:20)
[2018-11-16] MEDS ORDERED: PT OWN MED DRAWER 7, Y5N ONE ×2 (10:10→19:51)
[2018-11-16] MEDS: ARIPiprazole 10 MG TABLET PO SCH (10:21)
[2018-11-16] MEDS: PANTOPRAZOLE 40 MG TABLET (FP) PO SCH (10:21)
[2018-11-16] MEDS: MULTIVITAMINS (DAILY MVI) TABLET (FP) PO SCH (10:22)
[2018-11-16] MEDS: ESCITALOPRAM OXALATE 20 MG TABLET (FP) PO SCH (10:22)
[2018-11-16] MEDS: LISINOPRIL 10 MG TABLET (FP) PO SCH (10:22)
[2018-11-16] MEDS: APIXABAN 5 MG TABLET PO SCH ×2 (10:23→21:42)
[2018-11-16] MEDS: ASPIRIN 81 MG CHEWABLE TABLETS PO SCH (10:23)
--- NOTE | 2018-11-16 13:45 | PN ---
Progress Note, Physician History of Present Illness: pulmonary alert on vent support ac mode c/o trach discomfort - Current Medication List Current Medications: Active Medications Acetylcysteine (Mucomyst 20 Oral / Inh Use Only*) 200 mg NEB RQID [facility] Last Admin: 11/16/18 12:11 Dose: 200 mg Albuterol Sulfate (Ventolin 0.083% Nebulizer Soln -) 1 amp NEB RQID [facility] Last Admin: 11/16/18 12:11 Dose: 1 amp Apixaban (Eliquis -) 5 mg PO BID [facility] Last Admin: 11/16/18 10:23 Dose: 5 mg Aripiprazole (Abilify) 10 mg PO DAILY [facility] Last Admin: 11/16/18 10:21 Dose: 10 mg Aspirin (Asa -) 81 mg PO DAILY [facility] Last Admin: 11/16/18 10:23 Dose: 81 mg Atorvastatin Calcium (Lipitor -) 20 mg PO HS [facility] Last Admin: 11/15/18 21:41 Dose: 20 mg Cyclobenzaprine HCl (Cyclobenzaprine Hcl) 10 mg PO Q12H PRN PRN Reason: PAIN LEVEL 4 - 6 Docusate Sodium (Colace -) 100 mg PO HS [facility] Last Admin: 11/15/18 21:41 Dose: 100 mg Escitalopram Oxalate (Lexapro -) 20 mg PO DAILY [facility] Last Admin: 11/16/18 10:22 Dose: 20 mg Furosemide (Lasix Injection -) 60 mg IVPUSH BID@0600,1400 [facility] Last Admin: 11/16/18 06:13 Dose: 60 mg Gabapentin (Neurontin -) 400 mg PO TID [facility] Last Admin: 11/16/18 06:13 Dose: 400 mg Levothyroxine Sodium (Synthroid -) 25 mcg PO DAILY@0700 [facility] Last Admin: 11/16/18 06:13 Dose: 25 mcg Lisinopril (Prinivil) 10 mg PO DAILY [facility] Last Admin: 11/16/18 10:22 Dose: 10 mg Loperamide HCl (Imodium -) 2 mg PO Q8H PRN PRN Reason: DIARRHEA Last Admin: 11/11/18 12:43 Dose: 2 mg Lorazepam (Ativan -) 0.5 mg PO BID PRN PRN Reason: ANXIETY Last Admin: 11/15/18 21:41 Dose: 0.5 mg Mirtazapine (Remeron -) 15 mg PO [facility] Last Admin: 11/15/18 21:41 Dose: 15 mg Montelukast Sodium (Singulair -) 10 mg PO [facility] Last Admin: 11/15/18 21:41 Dose: 10 mg Multivitamins/Minerals/Vitamin C (Tab-A-Vit -) 1 tab PO DAILY [facility] Last Admin: 11/16/18 10:22 Dose: 1 tab Nitroglycerin (Nitrostat -) 0.4 mg SL Q5M PRN PRN Reason: FOR CHEST PAIN Pantoprazole Sodium (Protonix -) 40 mg PO DAILY [facility] Last Admin: 11/16/18 10:21 Dose: 40 mg Tramadol HCl (Ultram -) 100 mg PO Q6H PRN PRN Reason: PAIN LEVEL 6-10 Last Admin: 11/16/18 10:19 Dose: 100 mg Trazodone HCl (Desyrel -) 100 mg PO [facility] Last Admin: 11/15/18 21:41 Dose: 100 mg - Objective Vital Signs: Vital Signs Temperature 98.2 F 11/16/18 09:00 Pulse Rate 66 11/16/18 09:36 Respiratory Rate 20 11/16/18 10:00 Blood Pressure 112/60 11/16/18 09:00 O2 Sat by Pulse Oximetry (%) 98 11/16/18 10:00 Constitutional: Yes: Well Nourished, Calm, Obese Eyes: Yes: WNL HENT: Yes: WNL Neck: Yes: Supple (trach) Cardiovascular: Yes: Regular Rate and Rhythm, S1, S2 Respiratory: Yes: Diminished Gastrointestinal: Yes: Normal Bowel Sounds, Soft Extremities: Yes: WNL Edema: Yes Labs: CBC, BMP 11/14/18 08:50 Assessment/Plan A/P Acute on Chronic Diastolic Heart Failure Volume Overload Acute on Chronic Hypoxic and Hypercapneic Respiratory Failure COPD UTI Morbid Obesity h/o DVT Hypothyroidism Bipolar Disorder Depression - lasix - monitor urine output, creatinine - daily weights - O2 to keep Spo2 >90% - inhaled bronchodilators - continue volume assist control - spontaneous breathing trials as tolerated when more euvolemic - ENT eval as pt c/o trach site pain when cuff inflated - anticoagulation - PO as tolerated - ativan as pt on medication in the [facility] - ent evaluation Problem List - Problems (1) Acute on chronic respiratory failure with hypoxia and hypercapnia Code(s): J96.21 - ACUTE AND CHRONIC RESPIRATORY FAILURE WITH HYPOXIA; J96.22 - ACUTE AND CHRONIC RESPIRATORY FAILURE WITH HYPERCAPNIA (2) Acute on chronic diastolic (congestive) heart failure Code(s): I50.33 - ACUTE ON CHRONIC DIASTOLIC (CONGESTIVE) HEART FAILURE (3) Volume overload Code(s): E87.70 - FLUID OVERLOAD, UNSPECIFIED
--- NOTE | 2018-11-16 13:57 | PN ---
Progress Note (short form) - Note Progress Note: no distress has pain in trach site and legs still edema-- decreasing anasarca++ no sob Vital Signs - 24 hr 11/15/18 11/15/18 11/15/18 18:35 18:59 21:00 Temperature 98.5 F Pulse Rate 67 Respiratory 23 H 18 15 Rate Blood Pressure 99/46 L O2 Sat by Pulse 94 L Oximetry (%) 11/15/18 11/15/18 11/16/18 22:00 22:35 01:40 Temperature Pulse Rate 66 Respiratory 15 30 H Rate Blood Pressure O2 Sat by Pulse 94 L Oximetry (%) 11/16/18 11/16/18 11/16/18 06:00 09:00 09:35 Temperature 98.1 F 98.2 F Pulse Rate 64 69 Respiratory 20 20 25 H Rate Blood Pressure 103/56 L 112/60 O2 Sat by Pulse Oximetry (%) 11/16/18 11/16/18 11/16/18 09:36 10:00 14:03 Temperature 98.2 F Pulse Rate 66 75 Respiratory 20 12 Rate Blood Pressure 152/47 L O2 Sat by Pulse 97 98 Oximetry (%) Current Medications Generic Name Dose Route Start Last Admin Trade Name Freq PRN Reason Stop Dose Admin Acetylcysteine 200 mg 11/15/18 12:00 11/16/18 12:11 Mucomyst 20 Oral / Inh Use Only* NEB 200 mg RQID [facility] Administration Albuterol Sulfate 1 amp 11/15/18 12:15 11/16/18 12:11 Ventolin 0.083% Nebulizer Soln - NEB 1 amp RQID [facility] Administration Apixaban 5 mg 11/10/18 11:39 11/16/18 10:23 Eliquis - PO 5 mg BID [facility] Administration Aripiprazole 10 mg 11/08/18 10:00 11/16/18 10:21 Abilify PO 10 mg DAILY [facility] Administration Aspirin 81 mg 11/08/18 10:00 11/16/18 10:23 Asa - PO 81 mg DAILY [facility] Administration Atorvastatin Calcium 20 mg 11/08/18 22:00 11/15/18 21:41 Lipitor - PO 20 mg HS [facility] Administration Cyclobenzaprine HCl 10 mg 11/16/18 22:00 Cyclobenzaprine Hcl PO TID [facility] Docusate Sodium 100 mg 11/08/18 22:00 11/15/18 21:41 Colace - PO 100 mg HS [facility] Administration Escitalopram Oxalate 20 mg 11/08/18 10:00 11/16/18 10:22 Lexapro - PO 20 mg DAILY [facility] Administration Furosemide 60 mg 11/11/18 12:09 11/16/18 14:57 Lasix Injection - IVPUSH 60 mg BID@0600,1400 [facility] Administration Gabapentin 400 mg 11/08/18 06:00 11/16/18 14:58 Neurontin - PO 400 mg TID [facility] Administration Levothyroxine Sodium 25 mcg 11/08/18 07:00 11/16/18 06:13 Synthroid - PO 25 mcg DAILY@0700 [facility] Administration Lisinopril 10 mg 11/08/18 10:00 11/16/18 10:22 Prinivil PO 10 mg DAILY [facility] Administration Loperamide HCl 2 mg 11/10/18 17:13 11/11/18 12:43 Imodium - PO 2 mg Q8H PRN Administration DIARRHEA Lorazepam 0.5 mg 11/15/18 10:28 11/15/18 21:41 Ativan - PO 0.5 mg BID PRN Administration ANXIETY Mirtazapine 15 mg 11/08/18 22:00 11/15/18 21:41 Remeron - PO 15 mg HS [facility] Administration Montelukast Sodium 10 mg 11/08/18 22:00 11/15/18 21:41 Singulair - PO 10 mg HS [facility] Administration Multivitamins/Minerals/Vitamin C 1 tab 11/08/18 10:00 11/16/18 10:22 Tab-A-Vit - PO 1 tab DAILY [facility] Administration Nitroglycerin 0.4 mg 11/08/18 02:28 Nitrostat - SL Q5M PRN FOR CHEST PAIN Pantoprazole Sodium 40 mg 11/08/18 10:00 11/16/18 10:21 Protonix - PO 40 mg DAILY [facility] Administration Tramadol HCl 100 mg 11/14/18 10:48 11/16/18 10:19 Ultram - PO 100 mg Q6H PRN Administration PAIN LEVEL 6-10 Trazodone HCl 100 mg 11/08/18 22:00 11/15/18 21:41 Desyrel - PO 100 mg HS [facility] Administration weight 420 lbs physical exam awake/ morbidly obese s/p trach S1 S2 RRR Lungs ---decreased wheezing+ Abd- soft, non tender +++ edema-- better neuro--- awake a/p CHF decompensation-- continue with IV Lasix check i and o weigh pt daily renal function stable UTI --was on chronic pete in [place] too for the last 2 months per pt due to sacral ulcer-- was changed 3 weeks ago-- urine culture- multiple organisms-- ID consulted ID eval appreciated -- no antibiotics strict isolation vent support ENT eval -- c/o trach pain --s/p endoscopy --tube change next week Pain -- increase tramadol - 2 tabs Problem List - Problems (1) Acute on chronic diastolic (congestive) heart failure Code(s): I50.33 - ACUTE ON CHRONIC DIASTOLIC (CONGESTIVE) HEART FAILURE (2) Atypical chest pain Code(s): R07.89 - OTHER CHEST PAIN (3) UTI (urinary tract infection) Code(s): N39.0 - URINARY TRACT INFECTION, SITE NOT SPECIFIED Qualifiers: Urinary tract infection type: catheter-associated UTI Indwelling urinary catheter type: indwelling urethral catheter Encounter type: initial encounter Qualified Code(s): T83.511A - Infection and inflammatory reaction due to indwelling urethral catheter, initial encounter; N39.0 - Urinary tract infection , site not specified (4) Volume overload Code(s): E87.70 - FLUID OVERLOAD, UNSPECIFIED
[2018-11-16] MEDS: MONTELUKAST NA 10 MG TABLET PO SCH (21:42)
[2018-11-16] MEDS: ATORVASTATIN CA 20 MG TABLET (FP) PO SCH (21:42)
[2018-11-16] MEDS: LORazepam 0.5 MG TABLET PO PRN (21:42)
[2018-11-16] MEDS: MIRTAZAPINE 15 MG TABLET (FP) PO SCH (21:42)
[2018-11-16] MEDS: traZODone HCL 100 MG TABLET (FP) PO SCH (21:43)
[2018-11-16] MEDS: DOCUSATE SODIUM 100 MG CAPSULE (FP) PO SCH (21:43)
[2018-11-16] MEDS: CYCLOBENZAPRINE HCL 5 MG TABLET PO SCH (23:51)
[2018-11-17] MEDS: GABAPENTIN 400 MG CAPSULE (FP) PO SCH ×3 (06:42→21:50)
[2018-11-17] MEDS: FUROSEMIDE 40 MG/4 ML INJECTABLE VIAL IVPUSH SCH ×2 (06:43→15:00)
[2018-11-17] MEDS: LEVOTHYROXINE NA 25 MCG TABLET (FP) PO SCH (06:43)
[2018-11-17] MEDS: CYCLOBENZAPRINE HCL 5 MG TABLET PO SCH (06:44)
[2018-11-17] MEDS: traMADol HCL 50 MG TABLET PO PRN (07:04)
[2018-11-17] MEDS: CYCLOBENZAPRINE HCL 10 MG TABLET (FP) PO SCH ×3 (07:05→21:50)
[2018-11-17 07:24] LABS: ANION GAP 5 MMOL/L (8-16); BLOOD UREA NITROGEN 25 mg/dL (7-18); CALCIUM 8.9 mg/dL (8.5-10.1); CHLORIDE 96 mmol/L (98-107); CO2 34 mmol/L (21-32); CREATININE 0.9 mg/dL (0.55-1.3); GLUCOSE,RANDOM 99 mg/dL (74-106); POTASSIUM 4.5 mmol/L (3.5-5.1); SODIUM 135 mmol/L (136-145)
[2018-11-17] MEDS: ACETYLCYSTEINE 20% 200MG/ML 4 ML VIAL *FOR ORAL / INH USE ONLY NEB SCH ×4 (08:15→22:09)
[2018-11-17] MEDS: ALBUTEROL SO4 0.083% IH SOL 2.5 MG/3 ML VIAL.NEB. NEB SCH ×4 (08:15→22:09)
[2018-11-17] MEDS: MULTIVITAMINS (DAILY MVI) TABLET (FP) PO SCH (10:45)
[2018-11-17] MEDS: ESCITALOPRAM OXALATE 20 MG TABLET (FP) PO SCH (10:45)
[2018-11-17] MEDS: ASPIRIN 81 MG CHEWABLE TABLETS PO SCH (10:45)
[2018-11-17] MEDS: ARIPiprazole 10 MG TABLET PO SCH (10:45)
[2018-11-17] MEDS: LISINOPRIL 10 MG TABLET (FP) PO SCH (10:45)
[2018-11-17] MEDS: APIXABAN 5 MG TABLET PO SCH ×2 (10:46→21:50)
[2018-11-17] MEDS: PANTOPRAZOLE 40 MG TABLET (FP) PO SCH (10:46)
[2018-11-17] MEDS: LORazepam 0.5 MG TABLET PO PRN (10:50)
--- NOTE | 2018-11-17 11:21 | PN ---
Progress Note, Physician History of Present Illness: pulmonary awake on vent support ac mode,-resp distress - Current Medication List Current Medications: Active Medications Acetylcysteine (Mucomyst 20 Oral / Inh Use Only*) 200 mg NEB RQID [facility] Last Admin: 11/17/18 08:15 Dose: 200 mg Albuterol Sulfate (Ventolin 0.083% Nebulizer Soln -) 1 amp NEB RQID [facility] Last Admin: 11/17/18 08:15 Dose: 1 amp Apixaban (Eliquis -) 5 mg PO BID [facility] Last Admin: 11/17/18 10:46 Dose: 5 mg Aripiprazole (Abilify) 10 mg PO DAILY [facility] Last Admin: 11/17/18 10:45 Dose: 10 mg Aspirin (Asa -) 81 mg PO DAILY [facility] Last Admin: 11/17/18 10:45 Dose: 81 mg Atorvastatin Calcium (Lipitor -) 20 mg PO HS [facility] Last Admin: 11/16/18 21:42 Dose: 20 mg Cyclobenzaprine HCl (Flexeril -) 10 mg PO TID [facility] Last Admin: 11/17/18 07:05 Dose: 10 mg Docusate Sodium (Colace -) 100 mg PO HS [facility] Last Admin: 11/16/18 21:43 Dose: 100 mg Escitalopram Oxalate (Lexapro -) 20 mg PO DAILY [facility] Last Admin: 11/17/18 10:45 Dose: 20 mg Furosemide (Lasix Injection -) 60 mg IVPUSH BID@0600,1400 [facility] Last Admin: 11/17/18 06:43 Dose: 60 mg Gabapentin (Neurontin -) 400 mg PO TID [facility] Last Admin: 11/17/18 06:42 Dose: 400 mg Levothyroxine Sodium (Synthroid -) 25 mcg PO DAILY@0700 [facility] Last Admin: 11/17/18 06:43 Dose: 25 mcg Lisinopril (Prinivil) 10 mg PO DAILY [facility] Last Admin: 11/17/18 10:45 Dose: 10 mg Loperamide HCl (Imodium -) 2 mg PO Q8H PRN PRN Reason: DIARRHEA Last Admin: 11/11/18 12:43 Dose: 2 mg Lorazepam (Ativan -) 0.5 mg PO BID PRN PRN Reason: ANXIETY Last Admin: 11/17/18 10:50 Dose: 0.5 mg Mirtazapine (Remeron -) 15 mg PO [facility] Last Admin: 11/16/18 21:42 Dose: 15 mg Montelukast Sodium (Singulair -) 10 mg PO [facility] Last Admin: 11/16/18 21:42 Dose: 10 mg Multivitamins/Minerals/Vitamin C (Tab-A-Vit -) 1 tab PO DAILY [facility] Last Admin: 11/17/18 10:45 Dose: 1 tab Nitroglycerin (Nitrostat -) 0.4 mg SL Q5M PRN PRN Reason: FOR CHEST PAIN Pantoprazole Sodium (Protonix -) 40 mg PO DAILY [facility] Last Admin: 11/17/18 10:46 Dose: 40 mg Tramadol HCl (Ultram -) 100 mg PO Q6H PRN PRN Reason: PAIN LEVEL 6-10 Last Admin: 11/17/18 07:04 Dose: 100 mg Trazodone HCl (Desyrel -) 100 mg PO [facility] Last Admin: 11/16/18 21:43 Dose: 100 mg - Objective Vital Signs: Vital Signs Temperature 98.0 F 11/17/18 06:41 Pulse Rate 79 11/17/18 08:15 Respiratory Rate 18 11/17/18 08:15 Blood Pressure 105/46 L 11/17/18 06:41 O2 Sat by Pulse Oximetry (%) 98 11/17/18 08:15 Constitutional: Yes: Well Nourished, Calm, Obese Eyes: Yes: WNL HENT: Yes: WNL Neck: Yes: Supple (trach) Cardiovascular: Yes: Regular Rate and Rhythm, S1, S2 Respiratory: Yes: Rales (butch rhonchi) Gastrointestinal: Yes: Normal Bowel Sounds, Soft Extremities: Yes: WNL Edema: Yes Labs: CBC, BMP 11/17/18 06:00 INR, PTT INR 1.09 (0.83-1.09) 11/07/18 21:20 Assessment/Plan A/P Acute on Chronic Diastolic Heart Failure Volume Overload Acute on Chronic Hypoxic and Hypercapneic Respiratory Failure COPD UTI Morbid Obesity h/o DVT Hypothyroidism Bipolar Disorder Depression - lasix - monitor urine output, creatinine - daily weights - O2 to keep Spo2 >90% - inhaled bronchodilators - continue volume assist control - spontaneous breathing trials as tolerated when more euvolemic - anticoagulation - PO as tolerated - ativan as pt on medication in the [facility] Problem List - Problems (1) Acute on chronic respiratory failure with hypoxia and hypercapnia Code(s): J96.21 - ACUTE AND CHRONIC RESPIRATORY FAILURE WITH HYPOXIA; J96.22 - ACUTE AND CHRONIC RESPIRATORY FAILURE WITH HYPERCAPNIA (2) Acute on chronic diastolic (congestive) heart failure Code(s): I50.33 - ACUTE ON CHRONIC DIASTOLIC (CONGESTIVE) HEART FAILURE (3) Volume overload Code(s): E87.70 - FLUID OVERLOAD, UNSPECIFIED
--- NOTE | 2018-11-17 12:52 | PN ---
Progress Note (short form) - Note Progress Note: no distress has pain in trach site and legs still edema-- decreasing anasarca++ hard for her to breathe on vent ate fried chicken yesterday per RN Vital Signs - 24 hr 11/16/18 11/16/18 11/16/18 14:03 17:29 18:00 Temperature 98.2 F 98.3 F Pulse Rate 75 71 Respiratory 12 25 H 12 Rate Blood Pressure 152/47 L 112/52 L O2 Sat by Pulse Oximetry (%) 11/16/18 11/16/18 11/16/18 18:30 21:00 21:21 Temperature Pulse Rate 66 64 Respiratory 22 H Rate Blood Pressure O2 Sat by Pulse 98 98 98 Oximetry (%) 11/16/18 11/17/18 11/17/18 21:45 00:50 02:44 Temperature 98.2 F Pulse Rate 69 Respiratory 15 26 H 24 H Rate Blood Pressure 112/45 L O2 Sat by Pulse Oximetry (%) 11/17/18 11/17/18 11/17/18 06:00 06:22 06:41 Temperature 98.2 F 98.0 F Pulse Rate 62 65 64 Respiratory 15 20 Rate Blood Pressure 102/42 L 105/46 L O2 Sat by Pulse 97 Oximetry (%) 11/17/18 11/17/18 08:15 12:37 Temperature Pulse Rate 79 Respiratory 18 16 Rate Blood Pressure O2 Sat by Pulse 98 Oximetry (%) Current Medications Generic Name Dose Route Start Last Admin Trade Name Freq PRN Reason Stop Dose Admin Acetylcysteine 200 mg 11/15/18 12:00 11/17/18 12:38 Mucomyst 20 Oral / Inh Use Only* NEB 200 mg RQID [facility] Administration Albuterol Sulfate 1 amp 11/15/18 12:15 11/17/18 12:38 Ventolin 0.083% Nebulizer Soln - NEB 1 amp RQID [facility] Administration Apixaban 5 mg 11/10/18 11:39 11/17/18 10:46 Eliquis - PO 5 mg BID [facility] Administration Aripiprazole 10 mg 11/08/18 10:00 11/17/18 10:45 Abilify PO 10 mg DAILY [facility] Administration Aspirin 81 mg 11/08/18 10:00 11/17/18 10:45 Asa - PO 81 mg DAILY [facility] Administration Atorvastatin Calcium 20 mg 11/08/18 22:00 11/16/18 21:42 Lipitor - PO 20 mg HS [facility] Administration Cyclobenzaprine HCl 10 mg 11/17/18 07:00 11/17/18 07:05 Flexeril - PO 10 mg TID [facility] Administration Docusate Sodium 100 mg 11/08/18 22:00 11/16/18 21:43 Colace - PO 100 mg HS [facility] Administration Escitalopram Oxalate 20 mg 11/08/18 10:00 11/17/18 10:45 Lexapro - PO 20 mg DAILY [facility] Administration Furosemide 80 mg 11/17/18 13:16 Lasix Injection - IVPUSH BID@0600,1400 [facility] Gabapentin 400 mg 11/08/18 06:00 11/17/18 06:42 Neurontin - PO 400 mg TID [facility] Administration Levothyroxine Sodium 25 mcg 11/08/18 07:00 11/17/18 06:43 Synthroid - PO 25 mcg DAILY@0700 [facility] Administration Lisinopril 10 mg 11/08/18 10:00 11/17/18 10:45 Prinivil PO 10 mg DAILY [facility] Administration Loperamide HCl 2 mg 11/10/18 17:13 11/11/18 12:43 Imodium - PO 2 mg Q8H PRN Administration DIARRHEA Lorazepam 0.5 mg 11/15/18 10:28 11/17/18 10:50 Ativan - PO 0.5 mg BID PRN Administration ANXIETY Mirtazapine 15 mg 11/08/18 22:00 11/16/18 21:42 Remeron - PO 15 mg HS [facility] Administration Montelukast Sodium 10 mg 11/08/18 22:00 11/16/18 21:42 Singulair - PO 10 mg HS [facility] Administration Multivitamins/Minerals/Vitamin C 1 tab 11/08/18 10:00 11/17/18 10:45 Tab-A-Vit - PO 1 tab DAILY [facility] Administration Nitroglycerin 0.4 mg 11/08/18 02:28 Nitrostat - SL Q5M PRN FOR CHEST PAIN Pantoprazole Sodium 40 mg 11/08/18 10:00 11/17/18 10:46 Protonix - PO 40 mg DAILY [facility] Administration Tramadol HCl 100 mg 11/14/18 10:48 11/17/18 07:04 Ultram - PO 100 mg Q6H PRN Administration PAIN LEVEL 6-10 Trazodone HCl 100 mg 11/08/18 22:00 11/16/18 21:43 Desyrel - PO 100 mg HS [facility] Administration Laboratory Results - last 24 hr 11/17/18 06:00 Sodium 135 L Potassium 4.5 Chloride 96 L Carbon Dioxide 34 H Anion Gap 5 L BUN 25 H Creatinine 0.9 Creat Clearance w eGFR 65.50 Random Glucose 99 Calcium 8.9 weight 424 lbs physical exam awake/ morbidly obese s/p trach S1 S2 RRR Lungs ---decreased wheezing+ Abd- soft, non tender +++ edema-- better neuro--- awake a/p CHF decompensation-- continue with IV Lasix-- increase Cardiology follow up check i and o weigh pt daily -- gaining weight echo-- EF 55-60% renal function stable UTI- chronic --was on chronic pete in [place] too for the last 2 months per pt due to sacral ulcer-- was changed 3 weeks ago-- urine culture- multiple organisms-- ID consulted ID eval appreciated -- no antibiotics strict isolation vent support ENT eval -- c/o trach pain --s/p endoscopy --tube change today Pain -- increase tramadol - 2 tabs Problem List - Problems (1) Acute on chronic diastolic (congestive) heart failure Code(s): I50.33 - ACUTE ON CHRONIC DIASTOLIC (CONGESTIVE) HEART FAILURE (2) Atypical chest pain Code(s): R07.89 - OTHER CHEST PAIN (3) UTI (urinary tract infection) Code(s): N39.0 - URINARY TRACT INFECTION, SITE NOT SPECIFIED Qualifiers: Urinary tract infection type: catheter-associated UTI Indwelling urinary catheter type: indwelling urethral catheter Encounter type: initial encounter Qualified Code(s): T83.511A - Infection and inflammatory reaction due to indwelling urethral catheter, initial encounter; N39.0 - Urinary tract infection , site not specified (4) Volume overload Code(s): E87.70 - FLUID OVERLOAD, UNSPECIFIED
--- NOTE | 2018-11-17 13:55 | PN ---
Progress Note (short form) - Note Progress Note: ENT pt states feeling a little better, able to rotate neck with less discomfort at trach site tolerating mild cuff inflation advised pt that the trach tube change would have some pain with procedure, and may not reduce or eliminate the pain around trach that she is complaining of. pt states she has not had the trach changed in 8-9 months. has been at [facility] and it has not been canged there. had it changed once during a previous visit to [facility] PE: NAD trach changed old tube removed, trach site patent, sl red tract, trachea visualized, no bleeding or obvious cellulitis new #7 Portex trach tube (cuffed, non-fenestrated), inserted easily with lubrication (cuff was pre-tested and functioning) secured with velcro tracheotomy tube ho suctioned of mild to moderate thick discolored tracheal secretions Post procedure: pt had initial pain, improved, O2 sat 97% states feeling better after the change Recommend: continue routine tracheotomy tube care continue ventilation and respiratory therapy as per Pulmonary and Medical team Azam Noe MD FACS Problem List - Problems (1) Respiratory failure Code(s): J96.90 - RESPIRATORY FAILURE, UNSP, UNSP W HYPOXIA OR HYPERCAPNIA Qualifiers: Chronicity: acute on chronic (2) Tracheostomy dependence Code(s): Z93.0 - TRACHEOSTOMY STATUS
[2018-11-17] MEDS ORDERED: CYCLOBENZAPRINE HCL 10 MG TABLET (FP) PO SCH (14:00)
[2018-11-17] MEDS: MIRTAZAPINE 15 MG TABLET (FP) PO SCH (21:50)
[2018-11-17] MEDS: ATORVASTATIN CA 20 MG TABLET (FP) PO SCH (21:50)
[2018-11-17] MEDS: traZODone HCL 100 MG TABLET (FP) PO SCH (21:50)
[2018-11-17] MEDS: MONTELUKAST NA 10 MG TABLET PO SCH (21:50)
[2018-11-17] MEDS: DOCUSATE SODIUM 100 MG CAPSULE (FP) PO SCH (21:51)
[2018-11-18] MEDS: traMADol HCL 50 MG TABLET PO PRN ×3 (01:10→12:49)
[2018-11-18] MEDS: LORazepam 0.5 MG TABLET PO PRN ×3 (01:13→21:22)
[2018-11-18] MEDS ORDERED: ACETAMINOPHEN 325 MG TABLET (FP) PO ONE (05:47)
[2018-11-18] MEDS: GABAPENTIN 400 MG CAPSULE (FP) PO SCH ×3 (06:50→21:21)
[2018-11-18] MEDS: LEVOTHYROXINE NA 25 MCG TABLET (FP) PO SCH (06:50)
[2018-11-18] MEDS: CYCLOBENZAPRINE HCL 10 MG TABLET (FP) PO SCH ×3 (06:50→21:22)
[2018-11-18] MEDS: FUROSEMIDE 40 MG/4 ML INJECTABLE VIAL IVPUSH SCH ×2 (06:51→14:10)
[2018-11-18 08:14] LABS: ANION GAP 6 MMOL/L (8-16); BLOOD UREA NITROGEN 24 mg/dL (7-18); CALCIUM 9.3 mg/dL (8.5-10.1); CHLORIDE 98 mmol/L (98-107); CO2 32 mmol/L (21-32); CREATININE 0.7 mg/dL (0.55-1.3); GLUCOSE,RANDOM 97 mg/dL (74-106); POTASSIUM 4.5 mmol/L (3.5-5.1); SODIUM 136 mmol/L (136-145)
[2018-11-18] MEDS: ALBUTEROL SO4 0.083% IH SOL 2.5 MG/3 ML VIAL.NEB. NEB SCH ×4 (08:34→20:28)
[2018-11-18] MEDS: ACETYLCYSTEINE 20% 200MG/ML 4 ML VIAL *FOR ORAL / INH USE ONLY NEB SCH ×4 (08:34→20:27)
[2018-11-18] MEDS: ARIPiprazole 10 MG TABLET PO SCH (09:47)
[2018-11-18] MEDS: ASPIRIN 81 MG CHEWABLE TABLETS PO SCH (09:47)
[2018-11-18] MEDS: ESCITALOPRAM OXALATE 20 MG TABLET (FP) PO SCH (09:47)
[2018-11-18] MEDS: MULTIVITAMINS (DAILY MVI) TABLET (FP) PO SCH (09:47)
[2018-11-18] MEDS: LISINOPRIL 10 MG TABLET (FP) PO SCH (09:47)
[2018-11-18] MEDS: PANTOPRAZOLE 40 MG TABLET (FP) PO SCH (09:47)
[2018-11-18] MEDS: APIXABAN 5 MG TABLET PO SCH ×2 (09:47→21:22)
[2018-11-18 11:44] VITALS: BMI 80.4
--- NOTE | 2018-11-18 13:04 | PN ---
Progress Note (short form) - Note Progress Note: no distress ate fried chicken yesterday again ! still edema anasarca++ hard for her to breathe on vent Vital Signs - 24 hr 11/17/18 11/17/18 11/17/18 14:56 16:31 18:00 Temperature 98.9 F 98.8 F Pulse Rate 83 75 Respiratory 12 20 12 Rate Blood Pressure 102/58 L 110/60 O2 Sat by Pulse Oximetry (%) 11/17/18 11/17/18 11/17/18 21:00 21:08 22:00 Temperature 98.4 F Pulse Rate 87 Respiratory 22 H 18 Rate Blood Pressure 136/71 O2 Sat by Pulse 98 Oximetry (%) 11/18/18 11/18/18 11/18/18 00:30 04:00 06:00 Temperature 98.3 F Pulse Rate 70 Respiratory 27 H 18 18 Rate Blood Pressure 101/46 L O2 Sat by Pulse Oximetry (%) 11/18/18 11/18/18 11/18/18 06:46 08:33 12:19 Temperature Pulse Rate 67 Respiratory 20 20 18 Rate Blood Pressure O2 Sat by Pulse 97 Oximetry (%) Current Medications Generic Name Dose Route Start Last Admin Trade Name Freq PRN Reason Stop Dose Admin Acetylcysteine 200 mg 11/15/18 12:00 11/18/18 12:20 Mucomyst 20 Oral / Inh Use Only* NEB 200 mg RQID NOELLE Administration Albuterol Sulfate 1 amp 11/15/18 12:15 11/18/18 12:20 Ventolin 0.083% Nebulizer Soln - NEB 1 amp RQID NOELLE Administration Apixaban 5 mg 11/10/18 11:39 11/18/18 09:47 Eliquis - PO 5 mg BID NOELLE Administration Aripiprazole 10 mg 11/08/18 10:00 11/18/18 09:47 Abilify PO 10 mg DAILY NOELLE Administration Aspirin 81 mg 11/08/18 10:00 11/18/18 09:47 Asa - PO 81 mg DAILY NOELLE Administration Atorvastatin Calcium 20 mg 11/08/18 22:00 11/17/18 21:50 Lipitor - PO 20 mg HS NOELLE Administration Cyclobenzaprine HCl 10 mg 11/17/18 07:00 11/18/18 06:50 Flexeril - PO 10 mg TID NOELLE Administration Docusate Sodium 100 mg 11/08/18 22:00 11/17/18 21:51 Colace - PO Not Given HS NOELLE Escitalopram Oxalate 20 mg 11/08/18 10:00 11/18/18 09:47 Lexapro - PO 20 mg DAILY NOELLE Administration Furosemide 80 mg 11/17/18 13:16 11/18/18 06:51 Lasix Injection - IVPUSH 80 mg BID@0600,1400 NOELLE Administration Gabapentin 400 mg 11/08/18 06:00 11/18/18 06:50 Neurontin - PO 400 mg TID NOELLE Administration Levothyroxine Sodium 25 mcg 11/08/18 07:00 11/18/18 06:50 Synthroid - PO 25 mcg DAILY@0700 NOELLE Administration Lisinopril 10 mg 11/08/18 10:00 11/18/18 09:47 Prinivil PO 10 mg DAILY NOELLE Administration Loperamide HCl 2 mg 11/10/18 17:13 11/11/18 12:43 Imodium - PO 2 mg Q8H PRN Administration DIARRHEA Lorazepam 0.5 mg 11/15/18 10:28 11/18/18 01:13 Ativan - PO 0.5 mg BID PRN Administration ANXIETY Mirtazapine 15 mg 11/08/18 22:00 11/17/18 21:50 Remeron - PO 15 mg HS [facility] Administration Montelukast Sodium 10 mg 11/08/18 22:00 11/17/18 21:50 Singulair - PO 10 mg HS NOELLE Administration Multivitamins/Minerals/Vitamin C 1 tab 11/08/18 10:00 11/18/18 09:47 Tab-A-Vit - PO 1 tab DAILY NOELLE Administration Nitroglycerin 0.4 mg 11/08/18 02:28 Nitrostat - SL Q5M PRN FOR CHEST PAIN Pantoprazole Sodium 40 mg 11/08/18 10:00 11/18/18 09:47 Protonix - PO 40 mg DAILY NOELLE Administration Tramadol HCl 100 mg 11/14/18 10:48 11/18/18 12:49 Ultram - PO 100 mg Q6H PRN Administration PAIN LEVEL 6-10 Trazodone HCl 100 mg 11/08/18 22:00 11/17/18 21:50 Desyrel - PO 100 mg HS NOELLE Administration Laboratory Results - last 24 hr 11/18/18 07:00 Sodium 136 Potassium 4.5 Chloride 98 Carbon Dioxide 32 Anion Gap 6 L BUN 24 H Creatinine 0.7 Creat Clearance w eGFR 87.53 Random Glucose 97 Calcium 9.3 weight 424 lbs-->426 lbs physical exam awake/ morbidly obese s/p trach S1 S2 RRR Lungs ---decreased wheezing+ Abd- soft, non tender +++ edema-- better neuro--- awake a/p CHF decompensation-- continue with IV Lasix-- increase add Aldactone Cardiology follow up check i and o weigh pt daily -- gaining weight no fried foods, restrict salt and fluid-- pt councelled echo-- EF 55-60% renal function stable UTI- chronic --was on chronic pete in [place] too for the last 2 months per pt due to sacral ulcer-- was changed 3 weeks ago-- urine culture- multiple organisms-- ID consulted ID eval appreciated -- no antibiotics strict isolation vent support ENT eval -- c/o trach pain --s/p endoscopy --tube changed-- pt feels better Pain -- increase tramadol - 2 tabs Problem List - Problems (1) Acute on chronic diastolic (congestive) heart failure Code(s): I50.33 - ACUTE ON CHRONIC DIASTOLIC (CONGESTIVE) HEART FAILURE (2) Atypical chest pain Code(s): R07.89 - OTHER CHEST PAIN (3) UTI (urinary tract infection) Code(s): N39.0 - URINARY TRACT INFECTION, SITE NOT SPECIFIED Qualifiers: Urinary tract infection type: catheter-associated UTI Indwelling urinary catheter type: indwelling urethral catheter Encounter type: initial encounter Qualified Code(s): T83.511A - Infection and inflammatory reaction due to indwelling urethral catheter, initial encounter; N39.0 - Urinary tract infection , site not specified (4) Volume overload Code(s): E87.70 - FLUID OVERLOAD, UNSPECIFIED
--- NOTE | 2018-11-18 13:34 | PN ---
Progress Note, Physician History of Present Illness: PULMONARY ALERT ON VENT SUPPORT AC MODE,C/O CHEST TIGHTNESS. PT S/P TRACH CHANGE BY ENT YESTERDAY TOLERATED WELL. +WT GAIN - Current Medication List Current Medications: Active Medications Acetylcysteine (Mucomyst 20 Oral / Inh Use Only*) 200 mg NEB RQID [facility] Last Admin: 11/18/18 12:20 Dose: 200 mg Albuterol Sulfate (Ventolin 0.083% Nebulizer Soln -) 1 amp NEB RQID [facility] Last Admin: 11/18/18 12:20 Dose: 1 amp Apixaban (Eliquis -) 5 mg PO BID [facility] Last Admin: 11/18/18 09:47 Dose: 5 mg Aripiprazole (Abilify) 10 mg PO DAILY [facility] Last Admin: 11/18/18 09:47 Dose: 10 mg Aspirin (Asa -) 81 mg PO DAILY [facility] Last Admin: 11/18/18 09:47 Dose: 81 mg Atorvastatin Calcium (Lipitor -) 20 mg PO [facility] Last Admin: 11/17/18 21:50 Dose: 20 mg Cyclobenzaprine HCl (Flexeril -) 10 mg PO TID [facility] Last Admin: 11/18/18 06:50 Dose: 10 mg Docusate Sodium (Colace -) 100 mg PO [facility] Last Admin: 11/17/18 21:51 Dose: Not Given Escitalopram Oxalate (Lexapro -) 20 mg PO DAILY [facility] Last Admin: 11/18/18 09:47 Dose: 20 mg Furosemide (Lasix Injection -) 80 mg IVPUSH BID@0600,1400 [facility] Last Admin: 11/18/18 06:51 Dose: 80 mg Gabapentin (Neurontin -) 400 mg PO TID [facility] Last Admin: 11/18/18 06:50 Dose: 400 mg Levothyroxine Sodium (Synthroid -) 25 mcg PO DAILY@0700 [facility] Last Admin: 11/18/18 06:50 Dose: 25 mcg Lisinopril (Prinivil) 10 mg PO DAILY [facility] Last Admin: 11/18/18 09:47 Dose: 10 mg Loperamide HCl (Imodium -) 2 mg PO Q8H PRN PRN Reason: DIARRHEA Last Admin: 11/11/18 12:43 Dose: 2 mg Lorazepam (Ativan -) 0.5 mg PO BID PRN PRN Reason: ANXIETY Last Admin: 11/18/18 01:13 Dose: 0.5 mg Mirtazapine (Remeron -) 15 mg PO [facility] Last Admin: 11/17/18 21:50 Dose: 15 mg Montelukast Sodium (Singulair -) 10 mg PO [facility] Last Admin: 11/17/18 21:50 Dose: 10 mg Multivitamins/Minerals/Vitamin C (Tab-A-Vit -) 1 tab PO DAILY [facility] Last Admin: 11/18/18 09:47 Dose: 1 tab Nitroglycerin (Nitrostat -) 0.4 mg SL Q5M PRN PRN Reason: FOR CHEST PAIN Pantoprazole Sodium (Protonix -) 40 mg PO DAILY [facility] Last Admin: 11/18/18 09:47 Dose: 40 mg Tramadol HCl (Ultram -) 100 mg PO Q6H PRN PRN Reason: PAIN LEVEL 6-10 Last Admin: 11/18/18 12:49 Dose: 100 mg Trazodone HCl (Desyrel -) 100 mg PO [facility] Last Admin: 11/17/18 21:50 Dose: 100 mg - Objective Vital Signs: Vital Signs Temperature 98.3 F 11/18/18 06:00 Pulse Rate 67 11/18/18 08:33 Respiratory Rate 18 11/18/18 12:19 Blood Pressure 101/46 L 11/18/18 06:00 O2 Sat by Pulse Oximetry (%) 97 11/18/18 08:33 Constitutional: Yes: Calm, Obese Eyes: Yes: WNL HENT: Yes: WNL Neck: Yes: Supple (TRACH) Cardiovascular: Yes: Regular Rate and Rhythm, S1, S2 Respiratory: Yes: Rhonchi (SCATTERED RHONCHI) Gastrointestinal: Yes: Normal Bowel Sounds, Soft Extremities: Yes: WNL Edema: Yes Labs: CBC, BMP 11/18/18 07:00 INR, PTT INR 1.09 (0.83-1.09) 11/07/18 21:20 Assessment/Plan A/P Acute on Chronic Diastolic Heart Failure Volume Overload Acute on Chronic Hypoxic and Hypercapneic Respiratory Failure COPD UTI Morbid Obesity h/o DVT Hypothyroidism Bipolar Disorder Depression - lasix - monitor urine output, creatinine - daily weights - O2 to keep Spo2 >90% - inhaled bronchodilators - continue volume assist control - spontaneous breathing trials as tolerated when more euvolemic - anticoagulation - PO as tolerated - ativan as pt on medication in the shelter - considred aldactone or zaroxolyn in addition to lasix Problem List - Problems (1) Acute on chronic respiratory failure with hypoxia and hypercapnia Code(s): J96.21 - ACUTE AND CHRONIC RESPIRATORY FAILURE WITH HYPOXIA; J96.22 - ACUTE AND CHRONIC RESPIRATORY FAILURE WITH HYPERCAPNIA (2) Acute on chronic diastolic (congestive) heart failure Code(s): I50.33 - ACUTE ON CHRONIC DIASTOLIC (CONGESTIVE) HEART FAILURE (3) Volume overload Code(s): E87.70 - FLUID OVERLOAD, UNSPECIFIED
[2018-11-18] MEDS: ATORVASTATIN CA 20 MG TABLET (FP) PO SCH (21:21)
[2018-11-18] MEDS: MONTELUKAST NA 10 MG TABLET PO SCH (21:22)
[2018-11-18] MEDS: traZODone HCL 100 MG TABLET (FP) PO SCH (21:23)
[2018-11-18] MEDS: MIRTAZAPINE 15 MG TABLET (FP) PO SCH (21:27)
[2018-11-18] MEDS: DOCUSATE SODIUM 100 MG CAPSULE (FP) PO SCH (21:38)
[2018-11-19] MEDS: METOLAZONE 5 MG TABLET PO SCH (05:41)
[2018-11-19] MEDS: GABAPENTIN 400 MG CAPSULE (FP) PO SCH ×3 (06:24→21:57)
[2018-11-19] MEDS: CYCLOBENZAPRINE HCL 10 MG TABLET (FP) PO SCH ×3 (06:24→21:57)
[2018-11-19] MEDS: LEVOTHYROXINE NA 25 MCG TABLET (FP) PO SCH (06:24)
[2018-11-19] MEDS: FUROSEMIDE 40 MG/4 ML INJECTABLE VIAL IVPUSH SCH ×2 (06:25→14:38)
[2018-11-19] MEDS: LORazepam 0.5 MG TABLET PO PRN ×2 (06:27→15:22)
[2018-11-19] MEDS: traMADol HCL 50 MG TABLET PO PRN ×2 (06:27→15:22)
[2018-11-19] MEDS: ALBUTEROL SO4 0.083% IH SOL 2.5 MG/3 ML VIAL.NEB. NEB SCH ×4 (07:20→21:50)
[2018-11-19 07:24] LABS: ANION GAP 7 MMOL/L (8-16); BLOOD UREA NITROGEN 19 mg/dL (7-18); CALCIUM 9.1 mg/dL (8.5-10.1); CHLORIDE 97 mmol/L (98-107); CO2 34 mmol/L (21-32); CREATININE 0.7 mg/dL (0.55-1.3); GLUCOSE,RANDOM 105 mg/dL (74-106); POTASSIUM 4.1 mmol/L (3.5-5.1); SODIUM 138 mmol/L (136-145)
[2018-11-19] MEDS: ACETYLCYSTEINE 20% 200MG/ML 4 ML VIAL *FOR ORAL / INH USE ONLY NEB SCH ×4 (07:25→21:50)
[2018-11-19] MEDS ORDERED: PT OWN MED DRAWER 7, Y5N ONE (10:57)
[2018-11-19] MEDS: ARIPiprazole 10 MG TABLET PO SCH (11:00)
[2018-11-19] MEDS: APIXABAN 5 MG TABLET PO SCH ×2 (11:00→21:57)
[2018-11-19] MEDS: ESCITALOPRAM OXALATE 20 MG TABLET (FP) PO SCH (11:00)
[2018-11-19] MEDS: PANTOPRAZOLE 40 MG TABLET (FP) PO SCH (11:00)
[2018-11-19] MEDS: LISINOPRIL 10 MG TABLET (FP) PO SCH (11:00)
[2018-11-19] MEDS: ASPIRIN 81 MG CHEWABLE TABLETS PO SCH (11:00)
[2018-11-19] MEDS: MULTIVITAMINS (DAILY MVI) TABLET (FP) PO SCH (11:00)
--- NOTE | 2018-11-19 11:19 | PN ---
Progress Note (short form) - Note Progress Note: pt seen/ examined chart reviewed. comfortable Vital Signs Temp 98.1 F 11/19/18 09:35 Pulse 71 11/19/18 09:35 Resp 20 11/19/18 09:35 BP 107/56 L 11/19/18 09:35 Pulse Ox 98 11/18/18 21:00 Intake & Output 11/18/18 11/18/18 11/19/18 11:59 23:59 11:59 Intake Total 0 900 650 Output Total 900 4100 1000 Balance -900 -3200 -350 Weight 426 lb 9.6 oz 424 lb 14.4 oz Intake: IV 0 0 0 SL 0 0 0 IVPB 0 0 Oral 900 650 Output: Urine 900 4100 1000 Carroll 900 4100 1000 Other: Voiding Method Indwelling Catheter Indwelling Catheter Toilet Bowel Movement Yes No Body Mass Index (BMI) 80.4 Weight Measurement Method Built in [facility] Active Medications Acetylcysteine (Mucomyst 20 Oral / Inh Use Only*) 200 mg NEB RQID [facility] Last Admin: 11/19/18 07:25 Dose: 200 mg Albuterol Sulfate (Ventolin 0.083% Nebulizer Soln -) 1 amp NEB RQID [facility] Last Admin: 11/19/18 07:20 Dose: 1 amp Apixaban (Eliquis -) 5 mg PO BID [facility] Last Admin: 11/19/18 11:00 Dose: 5 mg Aripiprazole (Abilify) 10 mg PO DAILY [facility] Last Admin: 11/19/18 11:00 Dose: 10 mg Aspirin (Asa -) 81 mg PO DAILY [facility] Last Admin: 11/19/18 11:00 Dose: 81 mg Atorvastatin Calcium (Lipitor -) 20 mg PO [facility] Last Admin: 11/18/18 21:21 Dose: 20 mg Cyclobenzaprine HCl (Flexeril -) 10 mg PO TID [facility] Last Admin: 11/19/18 06:24 Dose: 10 mg Docusate Sodium (Colace -) 100 mg PO [facility] Last Admin: 11/18/18 21:38 Dose: Not Given Escitalopram Oxalate (Lexapro -) 20 mg PO DAILY [facility] Last Admin: 11/19/18 11:00 Dose: 20 mg Furosemide (Lasix Injection -) 80 mg IVPUSH BID@0600,1400 [facility] Last Admin: 11/19/18 06:25 Dose: 80 mg Gabapentin (Neurontin -) 400 mg PO TID [facility] Last Admin: 11/19/18 06:24 Dose: 400 mg Levothyroxine Sodium (Synthroid -) 25 mcg PO DAILY@0700 [facility] Last Admin: 11/19/18 06:24 Dose: 25 mcg Lisinopril (Prinivil) 10 mg PO DAILY [facility] Last Admin: 11/19/18 11:00 Dose: 10 mg Loperamide HCl (Imodium -) 2 mg PO Q8H PRN PRN Reason: DIARRHEA Last Admin: 11/11/18 12:43 Dose: 2 mg Lorazepam (Ativan -) 0.5 mg PO BID PRN PRN Reason: ANXIETY Last Admin: 11/19/18 06:27 Dose: 0.5 mg Metolazone (Zaroxolyn -) 5 mg PO DAILY@0530 [facility] Last Admin: 11/19/18 05:41 Dose: 5 mg Mirtazapine (Remeron -) 15 mg PO [facility] Last Admin: 11/18/18 21:27 Dose: 15 mg Montelukast Sodium (Singulair -) 10 mg PO [facility] Last Admin: 11/18/18 21:22 Dose: 10 mg Multivitamins/Minerals/Vitamin C (Tab-A-Vit -) 1 tab PO DAILY [facility] Last Admin: 11/19/18 11:00 Dose: 1 tab Nitroglycerin (Nitrostat -) 0.4 mg SL Q5M PRN PRN Reason: FOR CHEST PAIN Pantoprazole Sodium (Protonix -) 40 mg PO DAILY [facility] Last Admin: 11/19/18 11:00 Dose: 40 mg Tramadol HCl (Ultram -) 100 mg PO Q6H PRN PRN Reason: PAIN LEVEL 6-10 Last Admin: 11/19/18 06:27 Dose: 100 mg Trazodone HCl (Desyrel -) 100 mg PO [facility] Last Admin: 11/18/18 21:23 Dose: 100 mg CBC, BMP 11/14/18 08:50 11/19/18 06:00 physical exam awake/ morbidly obese s/p trach S1 S2 RRR Lungs ---decreased wheezing+ Abd- soft, non tender +++ edema-- better neuro--- awake a/p CHF decompensation-- continue with IV Lasix-- meds reviewed Cardiology follow up check i and o weigh pt daily -- no fried foods, restrict salt and fluid-- pt councelled echo-- EF 55-60% renal function stable will follow Problem List - Problems (1) Acute on chronic diastolic (congestive) heart failure Code(s): I50.33 - ACUTE ON CHRONIC DIASTOLIC (CONGESTIVE) HEART FAILURE (2) Atypical chest pain Code(s): R07.89 - OTHER CHEST PAIN (3) Volume overload Code(s): E87.70 - FLUID OVERLOAD, UNSPECIFIED (4) Bipolar 1 disorder Code(s): F31.9 - BIPOLAR DISORDER, UNSPECIFIED (5) Diabetes Code(s): E11.9 - TYPE 2 DIABETES MELLITUS WITHOUT COMPLICATIONS
--- NOTE | 2018-11-19 12:58 | PN ---
Progress Note, Physician History of Present Illness: pulmonary alert,no distress on vent support - Current Medication List Current Medications: Active Medications Acetylcysteine (Mucomyst 20 Oral / Inh Use Only*) 200 mg NEB RQID [facility] Last Admin: 11/19/18 11:15 Dose: 200 mg Albuterol Sulfate (Ventolin 0.083% Nebulizer Soln -) 1 amp NEB RQID [facility] Last Admin: 11/19/18 11:15 Dose: 1 amp Apixaban (Eliquis -) 5 mg PO BID [facility] Last Admin: 11/19/18 11:00 Dose: 5 mg Aripiprazole (Abilify) 10 mg PO DAILY [facility] Last Admin: 11/19/18 11:00 Dose: 10 mg Aspirin (Asa -) 81 mg PO DAILY [facility] Last Admin: 11/19/18 11:00 Dose: 81 mg Atorvastatin Calcium (Lipitor -) 20 mg PO [facility] Last Admin: 11/18/18 21:21 Dose: 20 mg Cyclobenzaprine HCl (Flexeril -) 10 mg PO TID [facility] Last Admin: 11/19/18 06:24 Dose: 10 mg Docusate Sodium (Colace -) 100 mg PO [facility] Last Admin: 11/18/18 21:38 Dose: Not Given Escitalopram Oxalate (Lexapro -) 20 mg PO DAILY [facility] Last Admin: 11/19/18 11:00 Dose: 20 mg Furosemide (Lasix Injection -) 80 mg IVPUSH BID@0600,1400 [facility] Last Admin: 11/19/18 06:25 Dose: 80 mg Gabapentin (Neurontin -) 400 mg PO TID [facility] Last Admin: 11/19/18 06:24 Dose: 400 mg Levothyroxine Sodium (Synthroid -) 25 mcg PO DAILY@0700 [facility] Last Admin: 11/19/18 06:24 Dose: 25 mcg Lisinopril (Prinivil) 10 mg PO DAILY [facility] Last Admin: 11/19/18 11:00 Dose: 10 mg Loperamide HCl (Imodium -) 2 mg PO Q8H PRN PRN Reason: DIARRHEA Last Admin: 11/11/18 12:43 Dose: 2 mg Lorazepam (Ativan -) 0.5 mg PO BID PRN PRN Reason: ANXIETY Last Admin: 11/19/18 06:27 Dose: 0.5 mg Metolazone (Zaroxolyn -) 5 mg PO DAILY@0530 [facility] Last Admin: 11/19/18 05:41 Dose: 5 mg Mirtazapine (Remeron -) 15 mg PO [facility] Last Admin: 11/18/18 21:27 Dose: 15 mg Montelukast Sodium (Singulair -) 10 mg PO [facility] Last Admin: 11/18/18 21:22 Dose: 10 mg Multivitamins/Minerals/Vitamin C (Tab-A-Vit -) 1 tab PO DAILY [facility] Last Admin: 11/19/18 11:00 Dose: 1 tab Nitroglycerin (Nitrostat -) 0.4 mg SL Q5M PRN PRN Reason: FOR CHEST PAIN Pantoprazole Sodium (Protonix -) 40 mg PO DAILY [facility] Last Admin: 11/19/18 11:00 Dose: 40 mg Tramadol HCl (Ultram -) 100 mg PO Q6H PRN PRN Reason: PAIN LEVEL 6-10 Last Admin: 11/19/18 06:27 Dose: 100 mg Trazodone HCl (Desyrel -) 100 mg PO [facility] Last Admin: 11/18/18 21:23 Dose: 100 mg - Objective Vital Signs: Vital Signs Temperature 98.2 F 11/19/18 11:05 Pulse Rate 65 11/19/18 11:05 Respiratory Rate 19 11/19/18 12:27 Blood Pressure 110/58 L 11/19/18 11:05 O2 Sat by Pulse Oximetry (%) 98 11/18/18 21:00 Constitutional: Yes: Well Nourished, Calm, Obese Eyes: Yes: WNL HENT: Yes: WNL Neck: Yes: Supple (trach) Cardiovascular: Yes: Regular Rate and Rhythm, S1, S2 Respiratory: Yes: Rhonchi (scattered rhonchi) Gastrointestinal: Yes: Normal Bowel Sounds, Soft Extremities: Yes: WNL Edema: Yes Labs: CBC, BMP 11/14/18 08:50 11/19/18 06:00 INR, PTT INR 1.09 (0.83-1.09) 11/07/18 21:20 Assessment/Plan A/P Acute on Chronic Diastolic Heart Failure Volume Overload Acute on Chronic Hypoxic and Hypercapneic Respiratory Failure COPD UTI Morbid Obesity h/o DVT Hypothyroidism Bipolar Disorder Depression - lasix - monitor urine output, creatinine - daily weights - O2 to keep Spo2 >90% - inhaled bronchodilators - continue volume assist control - spontaneous breathing trials as tolerated when more euvolemic - anticoagulation - PO as tolerated - zaroxolyn Problem List - Problems (1) Acute on chronic respiratory failure with hypoxia and hypercapnia Code(s): J96.21 - ACUTE AND CHRONIC RESPIRATORY FAILURE WITH HYPOXIA; J96.22 - ACUTE AND CHRONIC RESPIRATORY FAILURE WITH HYPERCAPNIA (2) Acute on chronic diastolic (congestive) heart failure Code(s): I50.33 - ACUTE ON CHRONIC DIASTOLIC (CONGESTIVE) HEART FAILURE (3) Volume overload Code(s): E87.70 - FLUID OVERLOAD, UNSPECIFIED
[2018-11-19] MEDS: MONTELUKAST NA 10 MG TABLET PO SCH (21:57)
[2018-11-19] MEDS: DOCUSATE SODIUM 100 MG CAPSULE (FP) PO SCH (21:57)
[2018-11-19] MEDS: ATORVASTATIN CA 20 MG TABLET (FP) PO SCH (21:57)
[2018-11-19] MEDS: traZODone HCL 100 MG TABLET (FP) PO SCH (21:57)
[2018-11-19] MEDS: MIRTAZAPINE 15 MG TABLET (FP) PO SCH (21:57)
[2018-11-20] MEDS: METOLAZONE 5 MG TABLET PO SCH (06:11)
[2018-11-20] MEDS: GABAPENTIN 400 MG CAPSULE (FP) PO SCH ×3 (06:11→21:59)
[2018-11-20] MEDS: CYCLOBENZAPRINE HCL 10 MG TABLET (FP) PO SCH ×3 (06:11→21:59)
[2018-11-20] MEDS: FUROSEMIDE 40 MG/4 ML INJECTABLE VIAL IVPUSH SCH ×3 (06:39→20:22)
[2018-11-20] MEDS: LEVOTHYROXINE NA 25 MCG TABLET (FP) PO SCH (07:26)
[2018-11-20] MEDS: ALBUTEROL SO4 0.083% IH SOL 2.5 MG/3 ML VIAL.NEB. NEB SCH ×3 (08:00→20:30)
[2018-11-20] MEDS: ACETYLCYSTEINE 20% 200MG/ML 4 ML VIAL *FOR ORAL / INH USE ONLY NEB SCH ×4 (08:00→20:30)
--- NOTE | 2018-11-20 08:58 | PN ---
Progress Note (short form) - Note Progress Note: Pt seen/ examined feels better decreased edema comfortable Vital Signs Temp 98.5 F 11/20/18 06:00 Pulse 66 11/20/18 06:00 Resp 18 11/20/18 06:00 BP 107/63 11/20/18 06:00 Pulse Ox 98 11/20/18 06:00 Intake & Output 11/19/18 11/19/18 11/20/18 11:59 23:59 11:59 Intake Total 650 935 Output Total 1000 6500 1600 Balance -350 -5565 -1600 Weight 424 lb 14.4 oz 418 lb 6.4 oz Intake: IV 0 SL 0 Oral 650 935 Output: Urine 1000 6500 1600 Carroll 1000 6500 1600 Other: Voiding Method Toilet Indwelling Catheter Indwelling Catheter Bowel Movement No No # Bowel Movements 1 Weight Measurement Method Built in [facility] Active Medications Acetylcysteine (Mucomyst 20 Oral / Inh Use Only*) 200 mg NEB RQID [facility] Last Admin: 11/19/18 21:50 Dose: 200 mg Albuterol Sulfate (Ventolin 0.083% Nebulizer Soln -) 1 amp NEB RQID [facility] Last Admin: 11/19/18 21:50 Dose: 1 amp Apixaban (Eliquis -) 5 mg PO BID [facility] Last Admin: 11/19/18 21:57 Dose: 5 mg Aripiprazole (Abilify) 10 mg PO DAILY [facility] Last Admin: 11/19/18 11:00 Dose: 10 mg Aspirin (Asa -) 81 mg PO DAILY [facility] Last Admin: 11/19/18 11:00 Dose: 81 mg Atorvastatin Calcium (Lipitor -) 20 mg PO [facility] Last Admin: 11/19/18 21:57 Dose: 20 mg Cyclobenzaprine HCl (Flexeril -) 10 mg PO TID [facility] Last Admin: 11/20/18 06:11 Dose: 10 mg Docusate Sodium (Colace -) 100 mg PO [facility] Last Admin: 11/19/18 21:57 Dose: Not Given Escitalopram Oxalate (Lexapro -) 20 mg PO DAILY [facility] Last Admin: 11/19/18 11:00 Dose: 20 mg Furosemide (Lasix Injection -) 80 mg IVPUSH BID@0600,1400 [facility] Last Admin: 11/20/18 06:39 Dose: 80 mg Gabapentin (Neurontin -) 400 mg PO TID [facility] Last Admin: 11/20/18 06:11 Dose: 400 mg Levothyroxine Sodium (Synthroid -) 25 mcg PO DAILY@0700 [facility] Last Admin: 11/20/18 07:26 Dose: 25 mcg Lisinopril (Prinivil) 10 mg PO DAILY [facility] Last Admin: 11/19/18 11:00 Dose: 10 mg Loperamide HCl (Imodium -) 2 mg PO Q8H PRN PRN Reason: DIARRHEA Last Admin: 11/11/18 12:43 Dose: 2 mg Lorazepam (Ativan -) 0.5 mg PO BID PRN PRN Reason: ANXIETY Last Admin: 11/19/18 15:22 Dose: 0.5 mg Metolazone (Zaroxolyn -) 5 mg PO DAILY@0530 [facility] Last Admin: 11/20/18 06:11 Dose: 5 mg Mirtazapine (Remeron -) 15 mg PO [facility] Last Admin: 11/19/18 21:57 Dose: 15 mg Montelukast Sodium (Singulair -) 10 mg PO [facility] Last Admin: 11/19/18 21:57 Dose: 10 mg Multivitamins/Minerals/Vitamin C (Tab-A-Vit -) 1 tab PO DAILY [facility] Last Admin: 11/19/18 11:00 Dose: 1 tab Nitroglycerin (Nitrostat -) 0.4 mg SL Q5M PRN PRN Reason: FOR CHEST PAIN Pantoprazole Sodium (Protonix -) 40 mg PO DAILY [facility] Last Admin: 11/19/18 11:00 Dose: 40 mg Tramadol HCl (Ultram -) 100 mg PO Q6H PRN PRN Reason: PAIN LEVEL 6-10 Last Admin: 11/19/18 15:22 Dose: 100 mg Trazodone HCl (Desyrel -) 100 mg PO [facility] Last Admin: 11/19/18 21:57 Dose: 100 mg CBC, BMP 11/14/18 08:50 11/19/18 06:00 Physical exam awake/ morbidly obese s/p trach S1 S2 RRR Lungs ---decreased wheezing+ Abd- soft, non tender +++ edema-- better neuro--- awake a/p CHF decompensation-- continue with IV Lasix-- meds reviewed continue present care will follow Problem List - Problems (1) Acute on chronic diastolic (congestive) heart failure Code(s): I50.33 - ACUTE ON CHRONIC DIASTOLIC (CONGESTIVE) HEART FAILURE (2) Atypical chest pain Code(s): R07.89 - OTHER CHEST PAIN (3) Volume overload Code(s): E87.70 - FLUID OVERLOAD, UNSPECIFIED (4) Bipolar 1 disorder Code(s): F31.9 - BIPOLAR DISORDER, UNSPECIFIED (5) Diabetes Code(s): E11.9 - TYPE 2 DIABETES MELLITUS WITHOUT COMPLICATIONS
[2018-11-20] MEDS: PANTOPRAZOLE 40 MG TABLET (FP) PO SCH (10:23)
[2018-11-20] MEDS: ESCITALOPRAM OXALATE 20 MG TABLET (FP) PO SCH (10:23)
[2018-11-20] MEDS: LISINOPRIL 10 MG TABLET (FP) PO SCH (10:23)
[2018-11-20] MEDS: ARIPiprazole 10 MG TABLET PO SCH (10:23)
[2018-11-20] MEDS: MULTIVITAMINS (DAILY MVI) TABLET (FP) PO SCH (10:23)
[2018-11-20] MEDS: APIXABAN 5 MG TABLET PO SCH ×2 (10:23→21:59)
[2018-11-20] MEDS: ASPIRIN 81 MG CHEWABLE TABLETS PO SCH (10:24)
[2018-11-20] MEDS: traMADol HCL 50 MG TABLET PO PRN ×2 (10:24→21:59)
[2018-11-20] MEDS: LORazepam 0.5 MG TABLET PO PRN ×2 (10:24→22:02)
--- NOTE | 2018-11-20 12:12 | PN ---
Progress Note, Physician History of Present Illness: pulmonary alert,on vent support,ac mode,-resp distress. wt 418 - Current Medication List Current Medications: Active Medications Acetylcysteine (Mucomyst 20 Oral / Inh Use Only*) 200 mg NEB RQID [facility] Last Admin: 11/20/18 11:56 Dose: 200 mg Albuterol Sulfate (Ventolin 0.083% Nebulizer Soln -) 1 amp NEB RQID [facility] Last Admin: 11/20/18 11:57 Dose: 1 amp Apixaban (Eliquis -) 5 mg PO BID [facility] Last Admin: 11/20/18 10:23 Dose: 5 mg Aripiprazole (Abilify) 10 mg PO DAILY [facility] Last Admin: 11/20/18 10:23 Dose: 10 mg Aspirin (Asa -) 81 mg PO DAILY [facility] Last Admin: 11/20/18 10:24 Dose: 81 mg Atorvastatin Calcium (Lipitor -) 20 mg PO HS [facility] Last Admin: 11/19/18 21:57 Dose: 20 mg Cyclobenzaprine HCl (Flexeril -) 10 mg PO TID [facility] Last Admin: 11/20/18 06:11 Dose: 10 mg Docusate Sodium (Colace -) 100 mg PO [facility] Last Admin: 11/19/18 21:57 Dose: Not Given Escitalopram Oxalate (Lexapro -) 20 mg PO DAILY [facility] Last Admin: 11/20/18 10:23 Dose: 20 mg Furosemide (Lasix Injection -) 80 mg IVPUSH BID@0600,1400 [facility] Last Admin: 11/20/18 06:39 Dose: 80 mg Gabapentin (Neurontin -) 400 mg PO TID [facility] Last Admin: 11/20/18 06:11 Dose: 400 mg Levothyroxine Sodium (Synthroid -) 25 mcg PO DAILY@0700 [facility] Last Admin: 11/20/18 07:26 Dose: 25 mcg Lisinopril (Prinivil) 10 mg PO DAILY [facility] Last Admin: 11/20/18 10:23 Dose: 10 mg Loperamide HCl (Imodium -) 2 mg PO Q8H PRN PRN Reason: DIARRHEA Last Admin: 11/11/18 12:43 Dose: 2 mg Lorazepam (Ativan -) 0.5 mg PO BID PRN PRN Reason: ANXIETY Last Admin: 11/20/18 10:24 Dose: 0.5 mg Metolazone (Zaroxolyn -) 5 mg PO DAILY@0530 [facility] Last Admin: 11/20/18 06:11 Dose: 5 mg Mirtazapine (Remeron -) 15 mg PO [facility] Last Admin: 11/19/18 21:57 Dose: 15 mg Montelukast Sodium (Singulair -) 10 mg PO [facility] Last Admin: 11/19/18 21:57 Dose: 10 mg Multivitamins/Minerals/Vitamin C (Tab-A-Vit -) 1 tab PO DAILY [facility] Last Admin: 11/20/18 10:23 Dose: 1 tab Nitroglycerin (Nitrostat -) 0.4 mg SL Q5M PRN PRN Reason: FOR CHEST PAIN Pantoprazole Sodium (Protonix -) 40 mg PO DAILY [facility] Last Admin: 11/20/18 10:23 Dose: 40 mg Tramadol HCl (Ultram -) 100 mg PO Q6H PRN PRN Reason: PAIN LEVEL 6-10 Last Admin: 11/20/18 10:24 Dose: 100 mg Trazodone HCl (Desyrel -) 100 mg PO [facility] Last Admin: 11/19/18 21:57 Dose: 100 mg - Objective Vital Signs: Vital Signs Temperature 98.8 F 11/20/18 10:31 Pulse Rate 72 11/20/18 10:31 Respiratory Rate 16 11/20/18 11:55 Blood Pressure 118/56 L 11/20/18 10:31 O2 Sat by Pulse Oximetry (%) 98 11/20/18 09:00 Constitutional: Yes: Calm, Obese Eyes: Yes: WNL HENT: Yes: WNL Neck: Yes: WNL Cardiovascular: Yes: Regular Rate and Rhythm, S1, S2 Respiratory: Yes: Wheezes (scattered butch wheezes) Gastrointestinal: Yes: Normal Bowel Sounds, Soft, Abdomen, Obese Extremities: Yes: WNL Edema: Yes Labs: Assessment/Plan A/P Acute on Chronic Diastolic Heart Failure Volume Overload Acute on Chronic Hypoxic and Hypercapneic Respiratory Failure COPD UTI Morbid Obesity h/o DVT Hypothyroidism Bipolar Disorder Depression - lasix - monitor urine output, creatinine - daily weights - O2 to keep Spo2 >90% - inhaled bronchodilators - continue volume assist control - spontaneous breathing trials as tolerated when more euvolemic - anticoagulation - PO as tolerated - zaroxolyn Problem List - Problems (1) Acute on chronic respiratory failure with hypoxia and hypercapnia Code(s): J96.21 - ACUTE AND CHRONIC RESPIRATORY FAILURE WITH HYPOXIA; J96.22 - ACUTE AND CHRONIC RESPIRATORY FAILURE WITH HYPERCAPNIA (2) Acute on chronic diastolic (congestive) heart failure Code(s): I50.33 - ACUTE ON CHRONIC DIASTOLIC (CONGESTIVE) HEART FAILURE (3) Volume overload Code(s): E87.70 - FLUID OVERLOAD, UNSPECIFIED
[2018-11-20] MEDS: LOPERAMIDE HCL 2 MG CAPSULE PO PRN (14:50)
[2018-11-20] MEDS: traZODone HCL 100 MG TABLET (FP) PO SCH (21:59)
[2018-11-20] MEDS: MONTELUKAST NA 10 MG TABLET PO SCH (21:59)
[2018-11-20] MEDS: MIRTAZAPINE 15 MG TABLET (FP) PO SCH (22:01)
[2018-11-20] MEDS: ATORVASTATIN CA 20 MG TABLET (FP) PO SCH (22:01)
[2018-11-20] MEDS: DOCUSATE SODIUM 100 MG CAPSULE (FP) PO SCH (22:15)
[2018-11-21] MEDS: METOLAZONE 5 MG TABLET PO SCH (05:25)
[2018-11-21] MEDS: FUROSEMIDE 40 MG/4 ML INJECTABLE VIAL IVPUSH SCH ×2 (05:25→14:39)
[2018-11-21] MEDS: GABAPENTIN 400 MG CAPSULE (FP) PO SCH ×3 (05:27→21:47)
[2018-11-21] MEDS: traMADol HCL 50 MG TABLET PO PRN ×3 (05:27→21:48)
[2018-11-21] MEDS: CYCLOBENZAPRINE HCL 10 MG TABLET (FP) PO SCH ×3 (05:28→21:48)
[2018-11-21] MEDS: LEVOTHYROXINE NA 25 MCG TABLET (FP) PO SCH (06:10)
[2018-11-21] MEDS: ACETYLCYSTEINE 20% 200MG/ML 4 ML VIAL *FOR ORAL / INH USE ONLY NEB SCH ×4 (07:35→20:30)
[2018-11-21] MEDS: ALBUTEROL SO4 0.083% IH SOL 2.5 MG/3 ML VIAL.NEB. NEB SCH ×4 (07:35→20:30)
[2018-11-21] MEDS: ASPIRIN 81 MG CHEWABLE TABLETS PO SCH (10:35)
[2018-11-21] MEDS: ARIPiprazole 10 MG TABLET PO SCH (10:35)
[2018-11-21] MEDS: ESCITALOPRAM OXALATE 20 MG TABLET (FP) PO SCH (10:35)
[2018-11-21] MEDS: APIXABAN 5 MG TABLET PO SCH ×2 (10:35→21:48)
[2018-11-21] MEDS: LISINOPRIL 10 MG TABLET (FP) PO SCH (10:36)
[2018-11-21] MEDS: PANTOPRAZOLE 40 MG TABLET (FP) PO SCH (10:36)
[2018-11-21] MEDS: MULTIVITAMINS (DAILY MVI) TABLET (FP) PO SCH (10:36)
--- NOTE | 2018-11-21 11:50 | PN ---
Progress Note (short form) - Note Progress Note: Pt seen/ examined feels same lasix dose was held due to low Bp-- Discussed with RN Vital Signs Temp 97.8 F 11/21/18 06:00 Pulse 67 11/21/18 06:00 Resp 20 11/21/18 09:55 BP 85/44 L 11/21/18 06:00 Pulse Ox 96 11/20/18 21:00 Intake & Output 11/20/18 11/20/18 11/21/18 11:59 23:59 11:59 Intake Total 2250 1000 Output Total 1600 5900 400 Balance -1600 -3650 600 Weight 418 lb 6.4 oz 418 lb 8 oz Intake: IV 0 SL 0 IVPB 0 Oral 2250 1000 Output: Urine 1600 5900 400 Carroll 1600 5900 400 Other: Voiding Method Indwelling Catheter Indwelling Catheter Indwelling Catheter Bowel Movement No No Yes # Bowel Movements 1 2 Weight Measurement Method Built in Bedscale Built in Bedscale Active Medications Acetylcysteine (Mucomyst 20 Oral / Inh Use Only*) 200 mg NEB RQID [facility] Last Admin: 11/19/18 21:50 Dose: 200 mg Albuterol Sulfate (Ventolin 0.083% Nebulizer Soln -) 1 amp NEB RQID [facility] Last Admin: 11/19/18 21:50 Dose: 1 amp Apixaban (Eliquis -) 5 mg PO BID [facility] Last Admin: 11/19/18 21:57 Dose: 5 mg Aripiprazole (Abilify) 10 mg PO DAILY [facility] Last Admin: 11/19/18 11:00 Dose: 10 mg Aspirin (Asa -) 81 mg PO DAILY [facility] Last Admin: 11/19/18 11:00 Dose: 81 mg Atorvastatin Calcium (Lipitor -) 20 mg PO [facility] Last Admin: 11/19/18 21:57 Dose: 20 mg Cyclobenzaprine HCl (Flexeril -) 10 mg PO TID [facility] Last Admin: 11/20/18 06:11 Dose: 10 mg Docusate Sodium (Colace -) 100 mg PO [facility] Last Admin: 11/19/18 21:57 Dose: Not Given Escitalopram Oxalate (Lexapro -) 20 mg PO DAILY [facility] Last Admin: 11/19/18 11:00 Dose: 20 mg Furosemide (Lasix Injection -) 80 mg IVPUSH BID@0600,1400 [facility] Last Admin: 11/20/18 06:39 Dose: 80 mg Gabapentin (Neurontin -) 400 mg PO TID [facility] Last Admin: 11/20/18 06:11 Dose: 400 mg Levothyroxine Sodium (Synthroid -) 25 mcg PO DAILY@0700 [facility] Last Admin: 11/20/18 07:26 Dose: 25 mcg Lisinopril (Prinivil) 10 mg PO DAILY [facility] Last Admin: 11/19/18 11:00 Dose: 10 mg Loperamide HCl (Imodium -) 2 mg PO Q8H PRN PRN Reason: DIARRHEA Last Admin: 11/11/18 12:43 Dose: 2 mg Lorazepam (Ativan -) 0.5 mg PO BID PRN PRN Reason: ANXIETY Last Admin: 11/19/18 15:22 Dose: 0.5 mg Metolazone (Zaroxolyn -) 5 mg PO DAILY@0530 [facility] Last Admin: 11/20/18 06:11 Dose: 5 mg Mirtazapine (Remeron -) 15 mg PO [facility] Last Admin: 11/19/18 21:57 Dose: 15 mg Montelukast Sodium (Singulair -) 10 mg PO [facility] Last Admin: 11/19/18 21:57 Dose: 10 mg Multivitamins/Minerals/Vitamin C (Tab-A-Vit -) 1 tab PO DAILY [facility] Last Admin: 11/19/18 11:00 Dose: 1 tab Nitroglycerin (Nitrostat -) 0.4 mg SL Q5M PRN PRN Reason: FOR CHEST PAIN Pantoprazole Sodium (Protonix -) 40 mg PO DAILY [facility] Last Admin: 11/19/18 11:00 Dose: 40 mg Tramadol HCl (Ultram -) 100 mg PO Q6H PRN PRN Reason: PAIN LEVEL 6-10 Last Admin: 11/19/18 15:22 Dose: 100 mg Trazodone HCl (Desyrel -) 100 mg PO [facility] Last Admin: 11/19/18 21:57 Dose: 100 mg CBC, BMP 11/14/18 08:50 11/19/18 06:00 Physical exam awake/ morbidly obese s/p trach S1 S2 RRR Lungs ---decreased wheezing+ Abd- soft, non tender +++ edema-- better neuro--- awake a/p CHF decompensation-- continue with IV Lasix-- meds reviewed continue present care monitor lytes cardiology to follow Isolation precautions to continue will follow Problem List - Problems (1) Acute on chronic diastolic (congestive) heart failure Code(s): I50.33 - ACUTE ON CHRONIC DIASTOLIC (CONGESTIVE) HEART FAILURE (2) Atypical chest pain Code(s): R07.89 - OTHER CHEST PAIN (3) Volume overload Code(s): E87.70 - FLUID OVERLOAD, UNSPECIFIED (4) Bipolar 1 disorder Code(s): F31.9 - BIPOLAR DISORDER, UNSPECIFIED (5) Diabetes Code(s): E11.9 - TYPE 2 DIABETES MELLITUS WITHOUT COMPLICATIONS
--- NOTE | 2018-11-21 12:12 | PN ---
Progress Note, Physician History of Present Illness: pulmoary alert on vent support ac mode,-resp distress. pt hypotensive bp 85/44 - Current Medication List Current Medications: Active Medications Acetylcysteine (Mucomyst 20 Oral / Inh Use Only*) 200 mg NEB RQID [facility] Last Admin: 11/21/18 11:40 Dose: 200 mg Albuterol Sulfate (Ventolin 0.083% Nebulizer Soln -) 1 amp NEB RQID [facility] Last Admin: 11/21/18 11:40 Dose: 1 amp Apixaban (Eliquis -) 5 mg PO BID [facility] Last Admin: 11/21/18 10:35 Dose: 5 mg Aripiprazole (Abilify) 10 mg PO DAILY [facility] Last Admin: 11/21/18 10:35 Dose: 10 mg Aspirin (Asa -) 81 mg PO DAILY [facility] Last Admin: 11/21/18 10:35 Dose: 81 mg Atorvastatin Calcium (Lipitor -) 20 mg PO [facility] Last Admin: 11/20/18 22:01 Dose: 20 mg Cyclobenzaprine HCl (Flexeril -) 10 mg PO TID [facility] Last Admin: 11/21/18 05:28 Dose: 10 mg Docusate Sodium (Colace -) 100 mg PO [facility] Last Admin: 11/20/18 22:15 Dose: Not Given Escitalopram Oxalate (Lexapro -) 20 mg PO DAILY [facility] Last Admin: 11/21/18 10:35 Dose: 20 mg Furosemide (Lasix Injection -) 80 mg IVPUSH BID@0600,1400 [facility] Gabapentin (Neurontin -) 400 mg PO TID [facility] Last Admin: 11/21/18 05:27 Dose: 400 mg Levothyroxine Sodium (Synthroid -) 25 mcg PO DAILY@0700 [facility] Last Admin: 11/21/18 06:10 Dose: 25 mcg Lisinopril (Prinivil) 10 mg PO DAILY [facility] Last Admin: 11/21/18 10:36 Dose: Not Given Loperamide HCl (Imodium -) 2 mg PO Q8H PRN PRN Reason: DIARRHEA Last Admin: 11/20/18 14:50 Dose: 2 mg Lorazepam (Ativan -) 0.5 mg PO BID PRN PRN Reason: ANXIETY Last Admin: 11/20/18 22:02 Dose: 0.5 mg Metolazone (Zaroxolyn -) 5 mg PO DAILY@0530 [facility] Last Admin: 11/21/18 05:25 Dose: Not Given Mirtazapine (Remeron -) 15 mg PO [facility] Last Admin: 11/20/18 22:01 Dose: 15 mg Montelukast Sodium (Singulair -) 10 mg PO [facility] Last Admin: 11/20/18 21:59 Dose: 10 mg Multivitamins/Minerals/Vitamin C (Tab-A-Vit -) 1 tab PO DAILY [facility] Last Admin: 11/21/18 10:36 Dose: 1 tab Nitroglycerin (Nitrostat -) 0.4 mg SL Q5M PRN PRN Reason: FOR CHEST PAIN Pantoprazole Sodium (Protonix -) 40 mg PO DAILY [facility] Last Admin: 11/21/18 10:36 Dose: 40 mg Tramadol HCl (Ultram -) 100 mg PO Q6H PRN PRN Reason: PAIN LEVEL 6-10 Last Admin: 11/21/18 05:27 Dose: 100 mg Trazodone HCl (Desyrel -) 100 mg PO [facility] Last Admin: 11/20/18 21:59 Dose: 100 mg - Objective Vital Signs: Vital Signs Temperature 97.8 F 11/21/18 06:00 Pulse Rate 67 11/21/18 06:00 Respiratory Rate 20 11/21/18 09:55 Blood Pressure 85/44 L 11/21/18 06:00 O2 Sat by Pulse Oximetry (%) 96 11/20/18 21:00 Constitutional: Yes: Calm, Obese Eyes: Yes: WNL HENT: Yes: WNL Neck: Yes: Supple (trach) Cardiovascular: Yes: Regular Rate and Rhythm, S1, S2 Respiratory: Yes: Rhonchi (few rhonchi) Gastrointestinal: Yes: Normal Bowel Sounds, Soft Extremities: Yes: WNL Edema: Yes Labs: CBC, BMP 11/14/18 08:50 11/19/18 06:00 INR, PTT INR 1.09 (0.83-1.09) 11/07/18 21:20 Assessment/Plan A/P Acute on Chronic Diastolic Heart Failure Volume Overload Acute on Chronic Hypoxic and Hypercapneic Respiratory Failure COPD UTI Morbid Obesity h/o DVT Hypothyroidism Bipolar Disorder Depression - hold lasix - monitor bp - duplex lower extremities - monitor urine output, creatinine - daily weights - O2 to keep Spo2 >90% - inhaled bronchodilators - continue volume assist control - spontaneous breathing trials as tolerated when more euvolemic - anticoagulation - PO as tolerated Problem List - Problems (1) Acute on chronic respiratory failure with hypoxia and hypercapnia Code(s): J96.21 - ACUTE AND CHRONIC RESPIRATORY FAILURE WITH HYPOXIA; J96.22 - ACUTE AND CHRONIC RESPIRATORY FAILURE WITH HYPERCAPNIA (2) Acute on chronic diastolic (congestive) heart failure Code(s): I50.33 - ACUTE ON CHRONIC DIASTOLIC (CONGESTIVE) HEART FAILURE (3) Volume overload Code(s): E87.70 - FLUID OVERLOAD, UNSPECIFIED
[2018-11-21] MEDS: LORazepam 0.5 MG TABLET PO PRN (14:40)
[2018-11-21] MEDS: ATORVASTATIN CA 20 MG TABLET (FP) PO SCH (21:47)
[2018-11-21] MEDS: MONTELUKAST NA 10 MG TABLET PO SCH (21:47)
[2018-11-21] MEDS: MIRTAZAPINE 15 MG TABLET (FP) PO SCH (21:47)
[2018-11-21] MEDS: traZODone HCL 100 MG TABLET (FP) PO SCH (21:48)
[2018-11-21] MEDS: DOCUSATE SODIUM 100 MG CAPSULE (FP) PO SCH (21:50)
[2018-11-22] MEDS: METOLAZONE 5 MG TABLET PO SCH ×2 (05:35→05:47)
[2018-11-22] MEDS: CYCLOBENZAPRINE HCL 10 MG TABLET (FP) PO SCH ×3 (05:47→21:36)
[2018-11-22] MEDS: GABAPENTIN 400 MG CAPSULE (FP) PO SCH ×3 (05:47→21:37)
[2018-11-22] MEDS: LEVOTHYROXINE NA 25 MCG TABLET (FP) PO SCH (06:21)
[2018-11-22] MEDS: FUROSEMIDE 40 MG/4 ML INJECTABLE VIAL IVPUSH SCH ×2 (06:22→14:45)
[2018-11-22] MEDS: ALBUTEROL SO4 0.083% IH SOL 2.5 MG/3 ML VIAL.NEB. NEB SCH ×4 (07:10→20:00)
[2018-11-22] MEDS: ACETYLCYSTEINE 20% 200MG/ML 4 ML VIAL *FOR ORAL / INH USE ONLY NEB SCH ×4 (07:10→20:00)
[2018-11-22 07:52] LABS: BASO % 0.6 % (0-2.0); EOS % 2.5 % (0-4.5); HEMATOCRIT 26.5 % (32.4-45.2); LYMPH % 22.2 % (8-40); MCH 26.9 pg (25.7-33.7); MCHC 33.9 g/dl (32.0-36.0); MEAN CELL VOLUME 79.3 fl (80-96); MEAN PLT VOLUME 7.7 fl (7.5-11.1); MONO % 4.2 % (3.8-10.2); NEUT % 70.5 % (42.8-82.8); PLATELET COUNT 270 K/MM3 (134-434); RBC 3.35 M/mm3 (3.60-5.2); WHITE BLOOD COUNT 7.8 K/mm3 (4.0-10.0)
[2018-11-22 08:06] LABS: ALBUMIN 3.3 g/dl (3.4-5.0); ALK PHOS 86 U/L (45-117); ANION GAP 10 MMOL/L (8-16); BILIRUBIN,TOTAL 0.6 mg/dL (0.2-1); BLOOD UREA NITROGEN 38 mg/dL (7-18); CALCIUM 9.1 mg/dL (8.5-10.1); CHLORIDE 86 mmol/L (98-107); CO2 35 mmol/L (21-32); CREATININE 1.1 mg/dL (0.55-1.3); GLUCOSE,RANDOM 104 mg/dL (74-106); POTASSIUM 3.4 mmol/L (3.5-5.1); SGOT/AST 11 U/L (15-37); SGPT/ALT 19 U/L (13-61); SODIUM 131 mmol/L (136-145); TOT PROT 6.6 g/dl (6.4-8.2)
[2018-11-22] MEDS: ASPIRIN 81 MG CHEWABLE TABLETS PO SCH (10:58)
[2018-11-22] MEDS: MULTIVITAMINS (DAILY MVI) TABLET (FP) PO SCH (10:58)
[2018-11-22] MEDS: ESCITALOPRAM OXALATE 20 MG TABLET (FP) PO SCH (10:58)
[2018-11-22] MEDS: ARIPiprazole 10 MG TABLET PO SCH (10:59)
[2018-11-22] MEDS: traMADol HCL 50 MG TABLET PO PRN (10:59)
[2018-11-22] MEDS: APIXABAN 5 MG TABLET PO SCH ×2 (10:59→21:37)
[2018-11-22] MEDS: PANTOPRAZOLE 40 MG TABLET (FP) PO SCH (10:59)
[2018-11-22] MEDS: LISINOPRIL 10 MG TABLET (FP) PO SCH (10:59)
[2018-11-22] MEDS: LORazepam 0.5 MG TABLET PO PRN (11:02)
--- NOTE | 2018-11-22 12:02 | PN ---
Progress Note (short form) - Note Progress Note: PULMONARY Still with shortness of breath, cough, generalized swelling. No fevers or chills. Vital Signs Period Temp Pulse Resp BP Sys/Petersen Pulse Ox Last 24 Hr 97.6 F-98.8 F 64-78 20-27 91-137/45-59 97-97 Gen: vented, awake Heart: RRR Lung: distant breath sounds Abd: soft, nontender Ext: + edema CBC, BMP 11/22/18 06:30 11/22/18 06:30 Active Medications Acetylcysteine (Mucomyst 20 Oral / Inh Use Only*) 200 mg NEB RQID [facility] Last Admin: 11/22/18 11:32 Dose: 200 mg Albuterol Sulfate (Ventolin 0.083% Nebulizer Soln -) 1 amp NEB RQID [facility] Last Admin: 11/22/18 11:34 Dose: 1 amp Apixaban (Eliquis -) 5 mg PO BID [facility] Last Admin: 11/22/18 10:59 Dose: 5 mg Aripiprazole (Abilify) 10 mg PO DAILY [facility] Last Admin: 11/22/18 10:59 Dose: 10 mg Aspirin (Asa -) 81 mg PO DAILY [facility] Last Admin: 11/22/18 10:58 Dose: 81 mg Atorvastatin Calcium (Lipitor -) 20 mg PO [facility] Last Admin: 11/21/18 21:47 Dose: 20 mg Cyclobenzaprine HCl (Flexeril -) 10 mg PO TID [facility] Last Admin: 11/22/18 05:47 Dose: 10 mg Docusate Sodium (Colace -) 100 mg PO HS [facility] Last Admin: 11/21/18 21:50 Dose: Not Given Escitalopram Oxalate (Lexapro -) 20 mg PO DAILY [facility] Last Admin: 11/22/18 10:58 Dose: 20 mg Furosemide (Lasix Injection -) 80 mg IVPUSH BID@0600,1400 [facility] Last Admin: 11/22/18 06:22 Dose: 80 mg Gabapentin (Neurontin -) 400 mg PO TID [facility] Last Admin: 11/22/18 05:47 Dose: 400 mg Levothyroxine Sodium (Synthroid -) 25 mcg PO DAILY@0700 [facility] Last Admin: 11/22/18 06:21 Dose: 25 mcg Lisinopril (Prinivil) 10 mg PO DAILY [facility] Last Admin: 11/22/18 10:59 Dose: 10 mg Loperamide HCl (Imodium -) 2 mg PO Q8H PRN PRN Reason: DIARRHEA Last Admin: 11/20/18 14:50 Dose: 2 mg Lorazepam (Ativan -) 0.5 mg PO BID PRN PRN Reason: ANXIETY Last Admin: 11/22/18 11:02 Dose: 0.5 mg Metolazone (Zaroxolyn -) 5 mg PO DAILY@0530 [facility] Last Admin: 11/22/18 05:47 Dose: 5 mg Mirtazapine (Remeron -) 15 mg PO [facility] Last Admin: 11/21/18 21:47 Dose: 15 mg Montelukast Sodium (Singulair -) 10 mg PO [facility] Last Admin: 11/21/18 21:47 Dose: 10 mg Multivitamins/Minerals/Vitamin C (Tab-A-Vit -) 1 tab PO DAILY [facility] Last Admin: 11/22/18 10:58 Dose: 1 tab Nitroglycerin (Nitrostat -) 0.4 mg SL Q5M PRN PRN Reason: FOR CHEST PAIN Pantoprazole Sodium (Protonix -) 40 mg PO DAILY [facility] Last Admin: 11/22/18 10:59 Dose: 40 mg Tramadol HCl (Ultram -) 100 mg PO Q6H PRN PRN Reason: PAIN LEVEL 6-10 Last Admin: 11/22/18 10:59 Dose: 100 mg Trazodone HCl (Desyrel -) 100 mg PO [facility] Last Admin: 11/21/18 21:48 Dose: 100 mg A/P Acute on Chronic Diastolic Heart Failure Volume Overload Acute on Chronic Hypoxic and Hypercapneic Respiratory Failure COPD Morbid Obesity h/o DVT Hypothyroidism Bipolar Disorder Depression - continue lasix - monitor urine output, creatinine - daily weights - O2 to keep Spo2 >90% - inhaled bronchodilators - can defer systemic steroids at this time - continue volume assist control - spontaneous breathing trials as tolerated when more euvolemic - continue anticoagulation - PO as tolerated Problem List - Problems (1) Acute on chronic respiratory failure with hypoxia and hypercapnia Code(s): J96.21 - ACUTE AND CHRONIC RESPIRATORY FAILURE WITH HYPOXIA; J96.22 - ACUTE AND CHRONIC RESPIRATORY FAILURE WITH HYPERCAPNIA (2) Acute on chronic diastolic (congestive) heart failure Code(s): I50.33 - ACUTE ON CHRONIC DIASTOLIC (CONGESTIVE) HEART FAILURE (3) Volume overload Code(s): E87.70 - FLUID OVERLOAD, UNSPECIFIED
--- NOTE | 2018-11-22 12:17 | PN ---
Progress Note (short form) - Note Progress Note: Pt seen/ examined feels same remains vent dependent Generalized anasarca + Vital Signs Temp 97.6 F 11/22/18 11:10 Pulse 78 11/22/18 11:10 Resp 20 11/22/18 11:10 BP 137/52 L 11/22/18 11:10 Pulse Ox 97 11/22/18 10:00 Intake & Output 11/21/18 11/22/18 11/22/18 23:59 11:59 23:59 Intake Total 1974 400 Output Total 1500 3800 Balance 475 -3400 Weight 409 lb 11.2 oz Intake: Oral 1974 400 Output: Urine 1500 3800 [place] 1500 3800 Other: Voiding Method Indwelling Catheter Indwelling Catheter Bowel Movement No No Active Medications Acetylcysteine (Mucomyst 20 Oral / Inh Use Only*) 200 mg NEB RQID [facility] Last Admin: 11/22/18 11:32 Dose: 200 mg Albuterol Sulfate (Ventolin 0.083% Nebulizer Soln -) 1 amp NEB RQID [facility] Last Admin: 11/22/18 11:34 Dose: 1 amp Apixaban (Eliquis -) 5 mg PO BID [facility] Last Admin: 11/22/18 10:59 Dose: 5 mg Aripiprazole (Abilify) 10 mg PO DAILY [facility] Last Admin: 11/22/18 10:59 Dose: 10 mg Aspirin (Asa -) 81 mg PO DAILY [facility] Last Admin: 11/22/18 10:58 Dose: 81 mg Atorvastatin Calcium (Lipitor -) 20 mg PO [facility] Last Admin: 11/21/18 21:47 Dose: 20 mg Cyclobenzaprine HCl (Flexeril -) 10 mg PO TID [facility] Last Admin: 11/22/18 05:47 Dose: 10 mg Docusate Sodium (Colace -) 100 mg PO [facility] Last Admin: 11/21/18 21:50 Dose: Not Given Escitalopram Oxalate (Lexapro -) 20 mg PO DAILY [facility] Last Admin: 11/22/18 10:58 Dose: 20 mg Furosemide (Lasix Injection -) 80 mg IVPUSH BID@0600,1400 [facility] Last Admin: 11/22/18 06:22 Dose: 80 mg Gabapentin (Neurontin -) 400 mg PO TID [facility] Last Admin: 11/22/18 05:47 Dose: 400 mg Levothyroxine Sodium (Synthroid -) 25 mcg PO DAILY@0700 [facility] Last Admin: 11/22/18 06:21 Dose: 25 mcg Lisinopril (Prinivil) 10 mg PO DAILY [facility] Last Admin: 11/22/18 10:59 Dose: 10 mg Loperamide HCl (Imodium -) 2 mg PO Q8H PRN PRN Reason: DIARRHEA Last Admin: 11/20/18 14:50 Dose: 2 mg Lorazepam (Ativan -) 0.5 mg PO BID PRN PRN Reason: ANXIETY Last Admin: 11/22/18 11:02 Dose: 0.5 mg Metolazone (Zaroxolyn -) 5 mg PO DAILY@0530 [facility] Last Admin: 11/22/18 05:47 Dose: 5 mg Mirtazapine (Remeron -) 15 mg PO [facility] Last Admin: 11/21/18 21:47 Dose: 15 mg Montelukast Sodium (Singulair -) 10 mg PO [facility] Last Admin: 11/21/18 21:47 Dose: 10 mg Multivitamins/Minerals/Vitamin C (Tab-A-Vit -) 1 tab PO DAILY [facility] Last Admin: 11/22/18 10:58 Dose: 1 tab Nitroglycerin (Nitrostat -) 0.4 mg SL Q5M PRN PRN Reason: FOR CHEST PAIN Pantoprazole Sodium (Protonix -) 40 mg PO DAILY [facility] Last Admin: 11/22/18 10:59 Dose: 40 mg Potassium Chloride (Potassium Chloride Oral Liquid) 20 meq PO DAILY [facility] Tramadol HCl (Ultram -) 100 mg PO Q6H PRN PRN Reason: PAIN LEVEL 6-10 Last Admin: 11/22/18 10:59 Dose: 100 mg Trazodone HCl (Desyrel -) 100 mg PO [facility] Last Admin: 11/21/18 21:48 Dose: 100 mg CBC, BMP 11/22/18 06:30 11/22/18 06:30 Physical exam awake/ morbidly obese s/p trach S1 S2 RRR Lungs ---bilateral breath sounds Abd- soft, non tender +++ edema-- same -- neuro--- awake a/p CHF decompensation-- continue with IV Lasix-- meds reviewed continue present care monitor lytes cardiology to follow supplement k Isolation precautions to continue will follow Problem List - Problems (1) Acute on chronic diastolic (congestive) heart failure Code(s): I50.33 - ACUTE ON CHRONIC DIASTOLIC (CONGESTIVE) HEART FAILURE (2) Atypical chest pain Code(s): R07.89 - OTHER CHEST PAIN (3) Volume overload Code(s): E87.70 - FLUID OVERLOAD, UNSPECIFIED (4) Bipolar 1 disorder Code(s): F31.9 - BIPOLAR DISORDER, UNSPECIFIED (5) Diabetes Code(s): E11.9 - TYPE 2 DIABETES MELLITUS WITHOUT COMPLICATIONS
[2018-11-22] MEDS ORDERED: PT OWN MED DRAWER 7, Y5N ONE (13:44)
[2018-11-22] MEDS: POTASSIUM CHLORIDE ORAL LIQUID 20 MEQ/15 ML PO SCH (14:44)
[2018-11-22] MEDS: MIRTAZAPINE 15 MG TABLET (FP) PO SCH (21:36)
[2018-11-22] MEDS: DOCUSATE SODIUM 100 MG CAPSULE (FP) PO SCH (21:36)
[2018-11-22] MEDS: MONTELUKAST NA 10 MG TABLET PO SCH (21:36)
[2018-11-22] MEDS: traZODone HCL 100 MG TABLET (FP) PO SCH (21:37)
[2018-11-22] MEDS: ATORVASTATIN CA 20 MG TABLET (FP) PO SCH (21:37)
[2018-11-23] MEDS: METOLAZONE 5 MG TABLET PO SCH (05:30)
[2018-11-23] MEDS: LEVOTHYROXINE NA 25 MCG TABLET (FP) PO SCH (06:18)
[2018-11-23] MEDS: CYCLOBENZAPRINE HCL 10 MG TABLET (FP) PO SCH ×3 (06:18→23:05)
[2018-11-23] MEDS: GABAPENTIN 400 MG CAPSULE (FP) PO SCH ×3 (06:18→23:06)
[2018-11-23] MEDS: FUROSEMIDE 40 MG/4 ML INJECTABLE VIAL IVPUSH SCH ×2 (06:18→15:08)
[2018-11-23] MEDS: ALBUTEROL SO4 0.083% IH SOL 2.5 MG/3 ML VIAL.NEB. NEB SCH ×4 (08:00→20:30)
[2018-11-23] MEDS: ACETYLCYSTEINE 20% 200MG/ML 4 ML VIAL *FOR ORAL / INH USE ONLY NEB SCH ×4 (08:00→20:30)
[2018-11-23] MEDS: LISINOPRIL 10 MG TABLET (FP) PO SCH (10:12)
[2018-11-23] MEDS: ARIPiprazole 10 MG TABLET PO SCH (10:13)
[2018-11-23] MEDS: POTASSIUM CHLORIDE ORAL LIQUID 20 MEQ/15 ML PO SCH (10:13)
[2018-11-23] MEDS: LORazepam 0.5 MG TABLET PO PRN (10:13)
[2018-11-23] MEDS: traMADol HCL 50 MG TABLET PO PRN ×2 (10:13→23:04)
[2018-11-23] MEDS: ASPIRIN 81 MG CHEWABLE TABLETS PO SCH (10:13)
[2018-11-23] MEDS: APIXABAN 5 MG TABLET PO SCH ×2 (10:13→23:06)
[2018-11-23] MEDS: ESCITALOPRAM OXALATE 20 MG TABLET (FP) PO SCH (10:13)
[2018-11-23] MEDS: PANTOPRAZOLE 40 MG TABLET (FP) PO SCH (10:14)
[2018-11-23] MEDS: MULTIVITAMINS (DAILY MVI) TABLET (FP) PO SCH (10:14)
--- NOTE | 2018-11-23 12:20 | PN ---
Progress Note (short form) - Note Progress Note: PULMONARY Feels about the same. Diuresing well with lasix. Still with shortness of breath , cough, generalized swelling. No fevers or chills. Vital Signs Period Temp Pulse Resp BP Sys/Petersen Pulse Ox Last 24 Hr 98.2 F-99.2 F 67-81 18-23 90-108/42-65 97-99 Intake & Output 11/20/18 11/21/18 11/22/18 11/23/18 23:59 23:59 23:59 23:59 Intake Total 2250 2975 400 Output Total 7500 1900 5400 4000 Balance -5250 1075 -5000 -4000 Weight 189.783 kg 189.828 kg 185.837 kg Gen: vented, awake Heart: RRR Lung: distant breath sounds Abd: soft, nontender Ext: + edema CBC, BMP 11/22/18 06:30 11/22/18 06:30 Active Medications Acetylcysteine (Mucomyst 20 Oral / Inh Use Only*) 200 mg NEB RQID [facility] Last Admin: 11/23/18 08:00 Dose: Not Given Albuterol Sulfate (Ventolin 0.083% Nebulizer Soln -) 1 amp NEB RQID [facility] Last Admin: 11/23/18 08:00 Dose: 1 amp Apixaban (Eliquis -) 5 mg PO BID [facility] Last Admin: 11/23/18 10:13 Dose: 5 mg Aripiprazole (Abilify) 10 mg PO DAILY [facility] Last Admin: 11/23/18 10:13 Dose: 10 mg Aspirin (Asa -) 81 mg PO DAILY [facility] Last Admin: 11/23/18 10:13 Dose: 81 mg Atorvastatin Calcium (Lipitor -) 20 mg PO [facility] Last Admin: 11/22/18 21:37 Dose: 20 mg Cyclobenzaprine HCl (Flexeril -) 10 mg PO TID [facility] Last Admin: 11/23/18 06:18 Dose: 10 mg Docusate Sodium (Colace -) 100 mg PO [facility] Last Admin: 11/22/18 21:36 Dose: 100 mg Escitalopram Oxalate (Lexapro -) 20 mg PO DAILY [facility] Last Admin: 11/23/18 10:13 Dose: 20 mg Furosemide (Lasix Injection -) 80 mg IVPUSH BID@0600,1400 [facility] Last Admin: 11/23/18 06:18 Dose: 80 mg Gabapentin (Neurontin -) 400 mg PO TID [facility] Last Admin: 11/23/18 06:18 Dose: 400 mg Levothyroxine Sodium (Synthroid -) 25 mcg PO DAILY@0700 [facility] Last Admin: 11/23/18 06:18 Dose: 25 mcg Lisinopril (Prinivil) 10 mg PO DAILY [facility] Last Admin: 11/23/18 10:12 Dose: Not Given Loperamide HCl (Imodium -) 2 mg PO Q8H PRN PRN Reason: DIARRHEA Last Admin: 11/20/18 14:50 Dose: 2 mg Lorazepam (Ativan -) 0.5 mg PO BID PRN PRN Reason: ANXIETY Last Admin: 11/23/18 10:13 Dose: 0.5 mg Metolazone (Zaroxolyn -) 5 mg PO DAILY@0530 [facility] Last Admin: 11/23/18 05:30 Dose: 5 mg Mirtazapine (Remeron -) 15 mg PO [facility] Last Admin: 11/22/18 21:36 Dose: 15 mg Montelukast Sodium (Singulair -) 10 mg PO [facility] Last Admin: 11/22/18 21:36 Dose: 10 mg Multivitamins/Minerals/Vitamin C (Tab-A-Vit -) 1 tab PO DAILY [facility] Last Admin: 11/23/18 10:14 Dose: 1 tab Nitroglycerin (Nitrostat -) 0.4 mg SL Q5M PRN PRN Reason: FOR CHEST PAIN Pantoprazole Sodium (Protonix -) 40 mg PO DAILY [facility] Last Admin: 11/23/18 10:14 Dose: 40 mg Potassium Chloride (Potassium Chloride Oral Liquid) 20 meq PO DAILY [facility] Last Admin: 11/23/18 10:13 Dose: 20 meq Tramadol HCl (Ultram -) 100 mg PO Q6H PRN PRN Reason: PAIN LEVEL 6-10 Last Admin: 11/23/18 10:13 Dose: 100 mg Trazodone HCl (Desyrel -) 100 mg PO [facility] Last Admin: 11/22/18 21:37 Dose: 100 mg A/P Acute on Chronic Diastolic Heart Failure Volume Overload Acute on Chronic Hypoxic and Hypercapneic Respiratory Failure COPD Morbid Obesity h/o DVT Hypothyroidism Bipolar Disorder Depression - continue lasix - monitor urine output, creatinine - daily weights - O2 to keep Spo2 >90% - inhaled bronchodilators - can defer systemic steroids at this time - continue volume assist control - spontaneous breathing trials as tolerated when more euvolemic - continue anticoagulation - PO as tolerated Problem List - Problems (1) Acute on chronic respiratory failure with hypoxia and hypercapnia Code(s): J96.21 - ACUTE AND CHRONIC RESPIRATORY FAILURE WITH HYPOXIA; J96.22 - ACUTE AND CHRONIC RESPIRATORY FAILURE WITH HYPERCAPNIA (2) Acute on chronic diastolic (congestive) heart failure Code(s): I50.33 - ACUTE ON CHRONIC DIASTOLIC (CONGESTIVE) HEART FAILURE (3) Volume overload Code(s): E87.70 - FLUID OVERLOAD, UNSPECIFIED
--- NOTE | 2018-11-23 14:38 | PN ---
Progress Note (short form) - Note Progress Note: no distress still edema anasarca++ hard for her to breathe on vent Vital Signs - 24 hr 11/22/18 11/22/18 11/22/18 15:24 16:31 21:00 Temperature 98.4 F Pulse Rate 81 81 Respiratory 20 20 Rate Blood Pressure 108/42 L O2 Sat by Pulse 97 99 Oximetry (%) 11/22/18 11/22/18 11/23/18 21:13 23:30 00:02 Temperature 98.2 F Pulse Rate 67 Respiratory 18 20 20 Rate Blood Pressure 90/59 L O2 Sat by Pulse Oximetry (%) 11/23/18 11/23/18 11/23/18 03:00 05:53 06:45 Temperature 99.2 F Pulse Rate 67 Respiratory 18 20 20 Rate Blood Pressure 104/65 O2 Sat by Pulse Oximetry (%) 11/23/18 11/23/18 09:00 10:00 Temperature Pulse Rate Respiratory Rate Blood Pressure O2 Sat by Pulse 97 97 Oximetry (%) Current Medications Generic Name Dose Route Start Last Admin Trade Name Freq PRN Reason Stop Dose Admin Acetylcysteine 200 mg 11/15/18 12:00 11/23/18 08:00 Mucomyst 20 Oral / Inh Use Only* NEB Not Given RQID [facility] Albuterol Sulfate 1 amp 11/20/18 20:00 11/23/18 08:00 Ventolin 0.083% Nebulizer Soln - NEB 1 amp RQID [facility] Administration Apixaban 5 mg 11/10/18 11:39 11/23/18 10:13 Eliquis - PO 5 mg BID [facility] Administration Aripiprazole 10 mg 11/08/18 10:00 11/23/18 10:13 Abilify PO 10 mg DAILY [facility] Administration Aspirin 81 mg 11/08/18 10:00 11/23/18 10:13 Asa - PO 81 mg DAILY [facility] Administration Atorvastatin Calcium 20 mg 11/08/18 22:00 11/22/18 21:37 Lipitor - PO 20 mg HS [facility] Administration Cyclobenzaprine HCl 10 mg 11/17/18 07:00 11/23/18 06:18 Flexeril - PO 10 mg TID [facility] Administration Docusate Sodium 100 mg 11/08/18 22:00 11/22/18 21:36 Colace - PO 100 mg HS [facility] Administration Escitalopram Oxalate 20 mg 11/08/18 10:00 11/23/18 10:13 Lexapro - PO 20 mg DAILY [facility] Administration Furosemide 80 mg 11/21/18 14:00 11/23/18 06:18 Lasix Injection - IVPUSH 80 mg BID@0600,1400 [facility] Administration Gabapentin 400 mg 11/08/18 06:00 11/23/18 06:18 Neurontin - PO 400 mg TID [facility] Administration Levothyroxine Sodium 25 mcg 11/08/18 07:00 11/23/18 06:18 Synthroid - PO 25 mcg DAILY@0700 [facility] Administration Lisinopril 10 mg 11/08/18 10:00 11/23/18 10:12 Prinivil PO Not Given DAILY [facility] Loperamide HCl 2 mg 11/10/18 17:13 11/20/18 14:50 Imodium - PO 2 mg Q8H PRN Administration DIARRHEA Lorazepam 0.5 mg 11/19/18 15:10 11/23/18 10:13 Ativan - PO 0.5 mg BID PRN Administration ANXIETY Metolazone 5 mg 11/19/18 05:30 11/23/18 05:30 Zaroxolyn - PO 5 mg DAILY@0530 [facility] Administration Mirtazapine 15 mg 11/08/18 22:00 11/22/18 21:36 Remeron - PO 15 mg HS [facility] Administration Montelukast Sodium 10 mg 11/08/18 22:00 11/22/18 21:36 Singulair - PO 10 mg HS [facility] Administration Multivitamins/Minerals/Vitamin C 1 tab 11/08/18 10:00 11/23/18 10:14 Tab-A-Vit - PO 1 tab DAILY [facility] Administration Nitroglycerin 0.4 mg 11/08/18 02:28 Nitrostat - SL Q5M PRN FOR CHEST PAIN Pantoprazole Sodium 40 mg 11/08/18 10:00 11/23/18 10:14 Protonix - PO 40 mg DAILY [facility] Administration Potassium Chloride 20 meq 11/22/18 12:30 11/23/18 10:13 Potassium Chloride Oral Liquid PO 20 meq DAILY [facility] Administration Tramadol HCl 100 mg 11/19/18 15:12 11/23/18 10:13 Ultram - PO 100 mg Q6H PRN Administration PAIN LEVEL 6-10 Trazodone HCl 100 mg 11/08/18 22:00 11/22/18 21:37 Desyrel - PO 100 mg HS [facility] Administration weight 424 lbs-->426 lbs physical exam awake/ morbidly obese s/p trach S1 S2 RRR Lungs ---decreased wheezing+ Abd- soft, non tender +++ edema-- better neuro--- awake a/p CHF decompensation-- continue with IV Lasix-- increased to 80mg bid Cardiology follow up check i and o weigh pt daily no fried foods, restrict salt and fluid-- pt councelled echo-- EF 55-60% renal function stable on zaroxylin dc lisinopril as her BP is low UTI- chronic --was on chronic pete in [place] too for the last 2 months per pt due to sacral ulcer-- was changed 3 weeks ago-- urine culture- multiple organisms-- ID consulted ID eval appreciated -- no antibiotics strict isolation vent support ENT eval -- c/o trach pain --s/p endoscopy --tube changed-- pt feels better Pain -- increase tramadol - 2 tabs Problem List - Problems (1) Acute on chronic diastolic (congestive) heart failure Code(s): I50.33 - ACUTE ON CHRONIC DIASTOLIC (CONGESTIVE) HEART FAILURE (2) Atypical chest pain Code(s): R07.89 - OTHER CHEST PAIN (3) UTI (urinary tract infection) Code(s): N39.0 - URINARY TRACT INFECTION, SITE NOT SPECIFIED Qualifiers: Urinary tract infection type: catheter-associated UTI Indwelling urinary catheter type: indwelling urethral catheter Encounter type: initial encounter Qualified Code(s): T83.511A - Infection and inflammatory reaction due to indwelling urethral catheter, initial encounter; N39.0 - Urinary tract infection , site not specified (4) Volume overload Code(s): E87.70 - FLUID OVERLOAD, UNSPECIFIED
[2018-11-23] MEDS: traZODone HCL 100 MG TABLET (FP) PO SCH (23:06)
[2018-11-23] MEDS: ZOLPIDEM TARTRATE 5 MG TABLET PO PRN (23:06)
[2018-11-23] MEDS: ATORVASTATIN CA 20 MG TABLET (FP) PO SCH (23:06)
[2018-11-23] MEDS: MONTELUKAST NA 10 MG TABLET PO SCH (23:06)
[2018-11-23] MEDS: BUDESONIDE/FORMETEROL FUMARATE 160/4.5 mcg INHALER IH SCH (23:07)
[2018-11-23] MEDS: MIRTAZAPINE 15 MG TABLET (FP) PO SCH (23:08)
[2018-11-23] MEDS: DOCUSATE SODIUM 100 MG CAPSULE (FP) PO SCH (23:08)
[2018-11-24] MEDS: METOLAZONE 5 MG TABLET PO SCH (06:16)
[2018-11-24] MEDS: CYCLOBENZAPRINE HCL 10 MG TABLET (FP) PO SCH ×3 (07:02→21:51)
[2018-11-24] MEDS: traMADol HCL 50 MG TABLET PO PRN (07:02)
[2018-11-24] MEDS: GABAPENTIN 400 MG CAPSULE (FP) PO SCH ×3 (07:02→21:50)
[2018-11-24] MEDS: LEVOTHYROXINE NA 25 MCG TABLET (FP) PO SCH (07:03)
[2018-11-24] MEDS: FUROSEMIDE 40 MG/4 ML INJECTABLE VIAL IVPUSH SCH ×2 (07:03→15:25)
[2018-11-24 07:35] LABS: CALCIUM 9.5 mg/dL (8.5-10.1); POTASSIUM 3.9 mmol/L (3.5-5.1)
[2018-11-24] MEDS: ALBUTEROL SO4 0.083% IH SOL 2.5 MG/3 ML VIAL.NEB. NEB SCH ×4 (08:27→20:42)
[2018-11-24] MEDS: ACETYLCYSTEINE 20% 200MG/ML 4 ML VIAL *FOR ORAL / INH USE ONLY NEB SCH ×4 (08:27→20:42)
[2018-11-24 09:58] LABS: CREATININE 0.8 mg/dL (0.55-1.3)
[2018-11-24] MEDS: ASPIRIN 81 MG CHEWABLE TABLETS PO SCH (10:52)
[2018-11-24] MEDS: APIXABAN 5 MG TABLET PO SCH ×2 (10:52→21:50)
[2018-11-24] MEDS: PANTOPRAZOLE 40 MG TABLET (FP) PO SCH (10:52)
[2018-11-24] MEDS: ARIPiprazole 10 MG TABLET PO SCH (10:52)
[2018-11-24] MEDS: POTASSIUM CHLORIDE ORAL LIQUID 20 MEQ/15 ML PO SCH (10:52)
[2018-11-24] MEDS: MULTIVITAMINS (DAILY MVI) TABLET (FP) PO SCH (10:52)
[2018-11-24] MEDS: ESCITALOPRAM OXALATE 20 MG TABLET (FP) PO SCH (10:52)
[2018-11-24] MEDS: BUDESONIDE/FORMETEROL FUMARATE 160/4.5 mcg INHALER IH SCH ×2 (10:53→23:36)
[2018-11-24] MEDS ORDERED: SIMETHICONE 80 MG TAB.CHEW (FP) PO PRN (10:56)
--- NOTE | 2018-11-24 10:57 | PN ---
Progress Note (short form) - Note Progress Note: no distress still edema anasarca++ hard for her to breathe on vent Vital Signs - 24 hr 11/23/18 11/24/18 11/24/18 23:03 00:06 02:00 Temperature 98 F Pulse Rate 67 64 Respiratory 20 22 H 20 Rate Blood Pressure 100/48 L 95/48 L O2 Sat by Pulse Oximetry (%) 11/24/18 11/24/18 11/24/18 03:45 06:00 06:53 Temperature 97.5 F L Pulse Rate 88 68 Respiratory 26 H 20 16 Rate Blood Pressure 122/59 L O2 Sat by Pulse 98 Oximetry (%) 11/24/18 11/24/18 11/24/18 08:26 09:00 11:13 Temperature Pulse Rate 64 Respiratory 26 H 18 Rate Blood Pressure O2 Sat by Pulse 97 97 Oximetry (%) 11/24/18 11/24/18 11/24/18 15:21 16:08 17:00 Temperature 98.1 F 98.3 F Pulse Rate 83 74 Respiratory 18 16 16 Rate Blood Pressure 123/67 109/53 L O2 Sat by Pulse Oximetry (%) 11/24/18 20:40 Temperature Pulse Rate Respiratory 25 H Rate Blood Pressure O2 Sat by Pulse Oximetry (%) Current Medications Generic Name Dose Route Start Last Admin Trade Name Freq PRN Reason Stop Dose Admin Acetylcysteine 200 mg 11/15/18 12:00 11/24/18 20:42 Mucomyst 20 Oral / Inh Use Only* NEB 200 mg RQID [facility] Administration Albuterol Sulfate 1 amp 11/20/18 20:00 11/24/18 20:42 Ventolin 0.083% Nebulizer Soln - NEB 1 amp RQID [facility] Administration Apixaban 5 mg 11/10/18 11:39 11/24/18 21:50 Eliquis - PO 5 mg BID [facility] Administration Aripiprazole 10 mg 11/08/18 10:00 11/24/18 10:52 Abilify PO 10 mg DAILY [facility] Administration Aspirin 81 mg 11/08/18 10:00 11/24/18 10:52 Asa - PO 81 mg DAILY [facility] Administration Atorvastatin Calcium 20 mg 11/08/18 22:00 11/24/18 21:51 Lipitor - PO 20 mg HS [facility] Administration Budesonide/Formoterol Fumarate 2 puff 11/23/18 22:00 11/24/18 10:53 Symbicort 160/4.5mcg - IH 2 puff BID [facility] Administration Cyclobenzaprine HCl 10 mg 11/17/18 07:00 11/24/18 21:51 Flexeril - PO 10 mg TID [facility] Administration Docusate Sodium 100 mg 11/08/18 22:00 11/24/18 21:51 Colace - PO Not Given HS [facility] Escitalopram Oxalate 20 mg 11/08/18 10:00 11/24/18 10:52 Lexapro - PO 20 mg DAILY [facility] Administration Furosemide 80 mg 11/21/18 14:00 11/24/18 15:25 Lasix Injection - IVPUSH 80 mg BID@0600,1400 [facility] Administration Gabapentin 400 mg 11/08/18 06:00 11/24/18 21:50 Neurontin - PO 400 mg TID [facility] Administration Levothyroxine Sodium 25 mcg 11/08/18 07:00 11/24/18 07:03 Synthroid - PO 25 mcg DAILY@0700 [facility] Administration Loperamide HCl 2 mg 11/10/18 17:13 11/20/18 14:50 Imodium - PO 2 mg Q8H PRN Administration DIARRHEA Lorazepam 0.5 mg 11/19/18 15:10 11/23/18 10:13 Ativan - PO 0.5 mg BID PRN Administration ANXIETY Metolazone 5 mg 11/19/18 05:30 11/24/18 06:16 Zaroxolyn - PO 5 mg DAILY@0530 [facility] Administration Mirtazapine 15 mg 11/08/18 22:00 11/24/18 21:50 Remeron - PO 15 mg HS [facility] Administration Montelukast Sodium 10 mg 11/08/18 22:00 11/24/18 21:50 Singulair - PO 10 mg HS [facility] Administration Multivitamins/Minerals/Vitamin C 1 tab 11/08/18 10:00 11/24/18 10:52 Tab-A-Vit - PO 1 tab DAILY [facility] Administration Nitroglycerin 0.4 mg 11/08/18 02:28 Nitrostat - SL Q5M PRN FOR CHEST PAIN Pantoprazole Sodium 40 mg 11/08/18 10:00 11/24/18 10:52 Protonix - PO 40 mg DAILY [facility] Administration Potassium Chloride 20 meq 11/22/18 12:30 11/24/18 10:52 Potassium Chloride Oral Liquid PO 20 meq DAILY [facility] Administration Simethicone 80 mg 11/24/18 10:56 Mylicon - PO Q4H PRN DYSPEPSIA Tramadol HCl 100 mg 11/19/18 15:12 11/24/18 07:02 Ultram - PO 100 mg Q6H PRN Administration PAIN LEVEL 6-10 Trazodone HCl 100 mg 11/08/18 22:00 11/24/18 21:51 Desyrel - PO 100 mg HS [facility] Administration Zolpidem Tartrate 5 mg 11/23/18 18:20 11/24/18 21:52 Ambien - PO 5 mg HS PRN Administration INSOMNIA Laboratory Results - last 24 hr 11/24/18 06:00 Sodium 131 L Potassium 3.9 Chloride 89 L Carbon Dioxide 35 H Anion Gap 6 L BUN 45 H Creatinine 0.8 Est GFR (CKD-EPI)AfAm 97.55 Est GFR (CKD-EPI)NonAf 84.17 Random Glucose 93 Calcium 9.5 weight 424 lbs-->426 lbs physical exam awake/ morbidly obese s/p trach S1 S2 RRR Lungs ---decreased wheezing+ Abd- soft, non tender +++ edema-- better neuro--- awake a/p CHF decompensation-- continue with IV Lasix-- increased to 80mg bid Cardiology follow up check i and o weigh pt daily no fried foods, restrict salt and fluid-- pt counselled echo-- EF 55-60% renal function stable on zaroxylin dc lisinopril as her BP is low UTI- chronic --was on chronic pete in [place] too for the last 2 months per pt due to sacral ulcer-- was changed 3 weeks ago-- urine culture- multiple organisms-- ID consulted ID eval appreciated -- no antibiotics strict isolation vent support ENT eval -- c/o trach pain --s/p endoscopy --tube changed-- pt feels better Pain -- increase tramadol - 2 tabs Problem List - Problems (1) Acute on chronic diastolic (congestive) heart failure Code(s): I50.33 - ACUTE ON CHRONIC DIASTOLIC (CONGESTIVE) HEART FAILURE (2) Atypical chest pain Code(s): R07.89 - OTHER CHEST PAIN (3) UTI (urinary tract infection) Code(s): N39.0 - URINARY TRACT INFECTION, SITE NOT SPECIFIED Qualifiers: Urinary tract infection type: catheter-associated UTI Indwelling urinary catheter type: indwelling urethral catheter Encounter type: initial encounter Qualified Code(s): T83.511A - Infection and inflammatory reaction due to indwelling urethral catheter, initial encounter; N39.0 - Urinary tract infection , site not specified (4) Volume overload Code(s): E87.70 - FLUID OVERLOAD, UNSPECIFIED
--- NOTE | 2018-11-24 12:50 | PN ---
Progress Note, Physician History of Present Illness: PULMONARY ALERT,NO DISTRESS,-CP.-SOB - Current Medication List Current Medications: Active Medications Acetylcysteine (Mucomyst 20 Oral / Inh Use Only*) 200 mg NEB RQID [facility] Last Admin: 11/24/18 11:14 Dose: 200 mg Albuterol Sulfate (Ventolin 0.083% Nebulizer Soln -) 1 amp NEB RQID [facility] Last Admin: 11/24/18 11:14 Dose: 1 amp Apixaban (Eliquis -) 5 mg PO BID [facility] Last Admin: 11/24/18 10:52 Dose: 5 mg Aripiprazole (Abilify) 10 mg PO DAILY [facility] Last Admin: 11/24/18 10:52 Dose: 10 mg Aspirin (Asa -) 81 mg PO DAILY [facility] Last Admin: 11/24/18 10:52 Dose: 81 mg Atorvastatin Calcium (Lipitor -) 20 mg PO HS [facility] Last Admin: 11/23/18 23:06 Dose: 20 mg Budesonide/Formoterol Fumarate (Symbicort 160/4.5mcg -) 2 puff IH BID [facility] Last Admin: 11/24/18 10:53 Dose: 2 puff Cyclobenzaprine HCl (Flexeril -) 10 mg PO TID [facility] Last Admin: 11/24/18 07:02 Dose: 10 mg Docusate Sodium (Colace -) 100 mg PO HS [facility] Last Admin: 11/23/18 23:08 Dose: 100 mg Escitalopram Oxalate (Lexapro -) 20 mg PO DAILY [facility] Last Admin: 11/24/18 10:52 Dose: 20 mg Furosemide (Lasix Injection -) 80 mg IVPUSH BID@0600,1400 [facility] Last Admin: 11/24/18 07:03 Dose: 80 mg Gabapentin (Neurontin -) 400 mg PO TID [facility] Last Admin: 11/24/18 07:02 Dose: 400 mg Levothyroxine Sodium (Synthroid -) 25 mcg PO DAILY@0700 [facility] Last Admin: 11/24/18 07:03 Dose: 25 mcg Loperamide HCl (Imodium -) 2 mg PO Q8H PRN PRN Reason: DIARRHEA Last Admin: 11/20/18 14:50 Dose: 2 mg Lorazepam (Ativan -) 0.5 mg PO BID PRN PRN Reason: ANXIETY Last Admin: 11/23/18 10:13 Dose: 0.5 mg Metolazone (Zaroxolyn -) 5 mg PO DAILY@0530 [facility] Last Admin: 11/24/18 06:16 Dose: 5 mg Mirtazapine (Remeron -) 15 mg PO [facility] Last Admin: 11/23/18 23:08 Dose: 15 mg Montelukast Sodium (Singulair -) 10 mg PO [facility] Last Admin: 11/23/18 23:06 Dose: 10 mg Multivitamins/Minerals/Vitamin C (Tab-A-Vit -) 1 tab PO DAILY [facility] Last Admin: 11/24/18 10:52 Dose: 1 tab Nitroglycerin (Nitrostat -) 0.4 mg SL Q5M PRN PRN Reason: FOR CHEST PAIN Pantoprazole Sodium (Protonix -) 40 mg PO DAILY [facility] Last Admin: 11/24/18 10:52 Dose: 40 mg Potassium Chloride (Potassium Chloride Oral Liquid) 20 meq PO DAILY [facility] Last Admin: 11/24/18 10:52 Dose: 20 meq Simethicone (Mylicon -) 80 mg PO Q4H PRN PRN Reason: DYSPEPSIA Tramadol HCl (Ultram -) 100 mg PO Q6H PRN PRN Reason: PAIN LEVEL 6-10 Last Admin: 11/24/18 07:02 Dose: 100 mg Trazodone HCl (Desyrel -) 100 mg PO [facility] Last Admin: 11/23/18 23:06 Dose: 100 mg Zolpidem Tartrate (Ambien -) 5 mg PO PRN PRN Reason: INSOMNIA Last Admin: 11/23/18 23:06 Dose: 5 mg - Objective Vital Signs: Vital Signs Temperature 97.5 F L 11/24/18 06:00 Pulse Rate 64 11/24/18 08:26 Respiratory Rate 18 11/24/18 11:13 Blood Pressure 122/59 L 11/24/18 06:00 O2 Sat by Pulse Oximetry (%) 97 11/24/18 08:26 Constitutional: Yes: Well Nourished, Calm Eyes: Yes: WNL HENT: Yes: WNL Neck: Yes: Supple (TRACH) Cardiovascular: Yes: Regular Rate and Rhythm, S1, S2 Respiratory: Yes: Rhonchi (FEW SCATTERED RHONCHI) Gastrointestinal: Yes: Normal Bowel Sounds, Soft Extremities: Yes: WNL Edema: Yes Labs: CBC, BMP 11/24/18 06:00 Assessment/Plan A/P Acute on Chronic Diastolic Heart Failure Volume Overload Acute on Chronic Hypoxic and Hypercapneic Respiratory Failure COPD UTI Morbid Obesity h/o DVT Hypothyroidism Bipolar Disorder Depression - lasix - monitor bp - monitor urine output, creatinine - daily weights - O2 to keep Spo2 >90% - inhaled bronchodilators - continue volume assist control - spontaneous breathing trials as tolerated when more euvolemic - anticoagulation - PO as tolerated Problem List - Problems (1) Acute on chronic respiratory failure with hypoxia and hypercapnia Code(s): J96.21 - ACUTE AND CHRONIC RESPIRATORY FAILURE WITH HYPOXIA; J96.22 - ACUTE AND CHRONIC RESPIRATORY FAILURE WITH HYPERCAPNIA (2) Acute on chronic diastolic (congestive) heart failure Code(s): I50.33 - ACUTE ON CHRONIC DIASTOLIC (CONGESTIVE) HEART FAILURE (3) Volume overload Code(s): E87.70 - FLUID OVERLOAD, UNSPECIFIED
[2018-11-24] MEDS: MONTELUKAST NA 10 MG TABLET PO SCH (21:50)
[2018-11-24] MEDS: MIRTAZAPINE 15 MG TABLET (FP) PO SCH (21:50)
[2018-11-24] MEDS: DOCUSATE SODIUM 100 MG CAPSULE (FP) PO SCH (21:51)
[2018-11-24] MEDS: ATORVASTATIN CA 20 MG TABLET (FP) PO SCH (21:51)
[2018-11-24] MEDS: traZODone HCL 100 MG TABLET (FP) PO SCH (21:51)
[2018-11-24] MEDS: ZOLPIDEM TARTRATE 5 MG TABLET PO PRN (21:52)
[2018-11-25] MEDS: METOLAZONE 5 MG TABLET PO SCH (05:41)
[2018-11-25] MEDS: FUROSEMIDE 40 MG/4 ML INJECTABLE VIAL IVPUSH SCH ×2 (06:27→13:44)
[2018-11-25] MEDS: GABAPENTIN 400 MG CAPSULE (FP) PO SCH ×3 (06:27→22:01)
[2018-11-25] MEDS: CYCLOBENZAPRINE HCL 10 MG TABLET (FP) PO SCH ×3 (06:27→22:01)
[2018-11-25] MEDS: LEVOTHYROXINE NA 25 MCG TABLET (FP) PO SCH (06:27)
[2018-11-25] MEDS: ALBUTEROL SO4 0.083% IH SOL 2.5 MG/3 ML VIAL.NEB. NEB SCH ×3 (07:30→16:29)
[2018-11-25] MEDS: ACETYLCYSTEINE 20% 200MG/ML 4 ML VIAL *FOR ORAL / INH USE ONLY NEB SCH ×4 (07:30→20:31)
--- NOTE | 2018-11-25 10:03 | PN ---
Progress Note (short form) - Note Progress Note: PULMONARY Diuresing well with lasix. Still with shortness of breath, cough, generalized swelling. No fevers or chills. Vital Signs Period Temp Pulse Resp BP Sys/Petersen Pulse Ox Last 24 Hr 98.1 F-98.3 F 68-83 16-25 103-126/53-67 98 Intake & Output 11/22/18 11/23/18 11/24/18 11/25/18 23:59 23:59 23:59 23:59 Intake Total 400 1000 750 Output Total 5400 7900 6500 1999 Balance -5000 -6900 -5750 -1999 Weight 185.837 kg 184.385 kg 176.72 kg Gen: vented, awake Heart: RRR Lung: distant breath sounds Abd: soft, nontender Ext: + edema CBC, BMP 11/22/18 06:30 11/24/18 06:00 Active Medications Acetylcysteine (Mucomyst 20 Oral / Inh Use Only*) 200 mg NEB RQID [facility] Last Admin: 11/25/18 07:30 Dose: 200 mg Albuterol Sulfate (Ventolin 0.083% Nebulizer Soln -) 1 amp NEB RQID [facility] Last Admin: 11/25/18 07:30 Dose: 1 amp Apixaban (Eliquis -) 5 mg PO BID [facility] Last Admin: 11/24/18 21:50 Dose: 5 mg Aripiprazole (Abilify) 10 mg PO DAILY [facility] Last Admin: 11/24/18 10:52 Dose: 10 mg Aspirin (Asa -) 81 mg PO DAILY [facility] Last Admin: 11/24/18 10:52 Dose: 81 mg Atorvastatin Calcium (Lipitor -) [address] [facility] Last Admin: 11/24/18 21:51 Dose: 20 mg Budesonide/Formoterol Fumarate (Symbicort 160/4.5mcg -) 2 puff IH BID [facility] Last Admin: 11/24/18 23:36 Dose: 2 puff Cyclobenzaprine HCl (Flexeril -) 10 mg PO TID [facility] Last Admin: 11/25/18 06:27 Dose: 10 mg Docusate Sodium (Colace -) [address] [facility] Last Admin: 11/24/18 21:51 Dose: Not Given Escitalopram Oxalate (Lexapro -) 20 mg PO DAILY [facility] Last Admin: 11/24/18 10:52 Dose: 20 mg Furosemide (Lasix Injection -) 80 mg IVPUSH BID@0600,1400 [facility] Last Admin: 11/25/18 06:27 Dose: 80 mg Gabapentin (Neurontin -) 400 mg PO TID [facility] Last Admin: 11/25/18 06:27 Dose: 400 mg Levothyroxine Sodium (Synthroid -) 25 mcg PO DAILY@0700 [facility] Last Admin: 11/25/18 06:27 Dose: 25 mcg Loperamide HCl (Imodium -) 2 mg PO Q8H PRN PRN Reason: DIARRHEA Last Admin: 11/20/18 14:50 Dose: 2 mg Lorazepam (Ativan -) 0.5 mg PO BID PRN PRN Reason: ANXIETY Last Admin: 11/23/18 10:13 Dose: 0.5 mg Metolazone (Zaroxolyn -) 5 mg PO DAILY@0530 [facility] Last Admin: 11/25/18 05:41 Dose: 5 mg Mirtazapine (Remeron -) [address] [facility] Last Admin: 11/24/18 21:50 Dose: 15 mg Montelukast Sodium (Singulair -) [address] [facility] Last Admin: 11/24/18 21:50 Dose: 10 mg Multivitamins/Minerals/Vitamin C (Tab-A-Vit -) 1 tab PO DAILY [facility] Last Admin: 11/24/18 10:52 Dose: 1 tab Nitroglycerin (Nitrostat -) 0.4 mg SL Q5M PRN PRN Reason: FOR CHEST PAIN Pantoprazole Sodium (Protonix -) 40 mg PO DAILY [facility] Last Admin: 11/24/18 10:52 Dose: 40 mg Potassium Chloride (Potassium Chloride Oral Liquid) 20 meq PO DAILY [facility] Last Admin: 11/24/18 10:52 Dose: 20 meq Simethicone (Mylicon -) 80 mg PO Q4H PRN PRN Reason: DYSPEPSIA Tramadol HCl (Ultram -) 100 mg PO Q6H PRN PRN Reason: PAIN LEVEL 6-10 Last Admin: 11/24/18 07:02 Dose: 100 mg Trazodone HCl (Desyrel -) [address] [facility] Last Admin: 11/24/18 21:51 Dose: 100 mg Zolpidem Tartrate (Ambien -) 5 mg PO HS PRN PRN Reason: INSOMNIA Last Admin: 11/24/18 21:52 Dose: 5 mg A/P Acute on Chronic Diastolic Heart Failure Volume Overload Acute on Chronic Hypoxic and Hypercapneic Respiratory Failure COPD Morbid Obesity h/o DVT Hypothyroidism Bipolar Disorder Depression - continue lasix - monitor urine output, creatinine - daily weights - O2 to keep Spo2 >90% - inhaled bronchodilators - can defer systemic steroids at this time - spontaneous breathing trials as tolerated - can try trach collar in AM - continue anticoagulation - PO as tolerated Problem List - Problems (1) Acute on chronic respiratory failure with hypoxia and hypercapnia Code(s): J96.21 - ACUTE AND CHRONIC RESPIRATORY FAILURE WITH HYPOXIA; J96.22 - ACUTE AND CHRONIC RESPIRATORY FAILURE WITH HYPERCAPNIA (2) Acute on chronic diastolic (congestive) heart failure Code(s): I50.33 - ACUTE ON CHRONIC DIASTOLIC (CONGESTIVE) HEART FAILURE (3) Volume overload Code(s): E87.70 - FLUID OVERLOAD, UNSPECIFIED
[2018-11-25] MEDS ORDERED: PT OWN MED DRAWER 7, Y5N ONE (10:30)
[2018-11-25] MEDS: traMADol HCL 50 MG TABLET PO PRN (10:40)
[2018-11-25] MEDS: ARIPiprazole 10 MG TABLET PO SCH (10:41)
[2018-11-25] MEDS: MULTIVITAMINS (DAILY MVI) TABLET (FP) PO SCH (10:41)
[2018-11-25] MEDS: PANTOPRAZOLE 40 MG TABLET (FP) PO SCH (10:41)
[2018-11-25] MEDS: LORazepam 0.5 MG TABLET PO PRN (10:42)
[2018-11-25] MEDS: POTASSIUM CHLORIDE ORAL LIQUID 20 MEQ/15 ML PO SCH (10:42)
[2018-11-25] MEDS: ESCITALOPRAM OXALATE 20 MG TABLET (FP) PO SCH (10:42)
[2018-11-25] MEDS: ASPIRIN 81 MG CHEWABLE TABLETS PO SCH (10:42)
[2018-11-25] MEDS: APIXABAN 5 MG TABLET PO SCH ×2 (10:42→22:01)
[2018-11-25] MEDS: BUDESONIDE/FORMETEROL FUMARATE 160/4.5 mcg INHALER IH SCH ×2 (10:43→22:02)
--- NOTE | 2018-11-25 15:41 | DS ---
Physical Examination Vital Signs: Vital Signs Temperature 98.1 F 11/25/18 14:25 Pulse Rate 75 11/25/18 14:25 Respiratory Rate 18 11/25/18 14:25 Blood Pressure 118/52 L 11/25/18 14:25 O2 Sat by Pulse Oximetry (%) 98 11/25/18 10:00 Constitutional: Yes: No Distress, Calm Cardiovascular: Yes: Regular Rate and Rhythm Respiratory: Yes: Diminished Gastrointestinal: Yes: Normal Bowel Sounds, Soft, Abdomen, Obese. 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 Chest pain is intermittent and sharp, occurs at rest. Patient denied any subjective fevers. She reports that she is on trach collar usually and on vent intermittently - at night. Hospital course Patient was seen by pulmonology as well as cardiology Echocardiogram done-diastolic dysfunction, EF is 55-60% She was started on intravenous Lasix, no steroids, nebulizer treatments She is on ventilator management training 4 hours a day but is normally on trach collar in the daytime but she is unable to tolerate trach collar She is on IV Lasix 80 mg twice a day along with Zaroxolyn once daily Urine cultures were positive and was evaluated by infectious disease, advised no antibiotics at this time as it is colonized Patient to be transferred to LTAC facility for continuation of diuresis and weaning off ventilator in the daytime and placing her on trach collar at day, continue to use the ventilator at nighttime Renal function has been stable Spoke with sister about the plan Stable for transfer to facility final diagnosis- Acute on Chronic Diastolic Heart Failure Volume Overload Acute on Chronic Hypoxic and Hypercapneic Respiratory Failure COPD Morbid Obesity h/o DVT Hypothyroidism Bipolar Disorder Depression Condition: Good - Instructions Disposition: TRANSFER ACUTE CARE/OTHER HOSP - Home Medications Comprehensive Discharge Medication List: Ambulatory Orders Acetaminophen 1,000 mg PO Q6H PRN 10/18/17 Aripiprazole 10 mg PO DAILY 10/18/17 Aspirin 81 mg PO DAILY 10/18/17 Furosemide [Lasix -] 40 mg PO BID 10/18/17 Lactobacillus Acidophilus [Acidophilus] 1 each PO BID 10/18/17 Levothyroxine [Synthroid -] 25 mcg PO DAILY 10/18/17 Mirtazapine 15 mg PO HS 10/18/17 Sennosides [Senna -] 2 tab PO HS tablet 01/18/18 Docusate Sodium [Colace] 100 mg PO HS 01/24/18 Escitalopram Oxalate [Lexapro -] 20 mg PO DAILY 01/24/18 Polyethylene Glycol 3350 [Gavilax] 17 gm PO DAILY 01/24/18 Vit A/Vitamin D3/E/Aloe V/Zinc [Periguard Ointment] 1 applic TP BID 01/24/18 Pantoprazole Sodium [Protonix -] 40 mg PO DAILY #60 tablet.ec 05/20/18 Clotrimazole/Betamet Diprop [Lotrisone -] 1 applic TP BID 06/02/18 Apixaban [Eliquis -] 2.5 mg PO BID 08/25/18 Budesonide/Formeterol Fumarate [SYMBICORT 160/4.5mcg -] 2 inh PO BID 08/25/18 Gabapentin [Neurontin -] 400 mg PO Q8H 08/25/18 Montelukast Na [Singulair -] 10 mg PO HS 08/25/18 Sacubitril/Valsartan [Entresto 24 mg-26 mg Tablet] 1 each PO BID 08/25/18 traZODone HCL [Desyrel -] 100 mg PO HS 08/25/18 Albuterol 2.5/Ipratropium 0.5 [Duoneb -] 1 amp NEB Q6H PRN amp 08/30/18 Multivitamin [One-Daily Multi-Vitamin] 1 each PO DAILY #30 tablet 09/01/18 Nystatin/Triamcinolone Top Oin [Mycolog II -] 1 applic TP BID #30 applic Furosemide [Lasix -] 40 mg PO BID@0600,1400 11/07/18
[2018-11-25] MEDS ORDERED: SENNOSIDES 8.6MG TABLET (FP) PO PRN (15:55)
[2018-11-25] MEDS: ALBUTEROL SO4 0.083% IH SOL 2.5 MG/3 ML VIAL.NEB. NEB PRN (20:30)
[2018-11-25] MEDS: DOCUSATE SODIUM 100 MG CAPSULE (FP) PO SCH (22:00)
[2018-11-25] MEDS: traZODone HCL 100 MG TABLET (FP) PO SCH (22:01)
[2018-11-25] MEDS: MIRTAZAPINE 15 MG TABLET (FP) PO SCH (22:01)
[2018-11-25] MEDS: MONTELUKAST NA 10 MG TABLET PO SCH (22:01)
[2018-11-25] MEDS: ATORVASTATIN CA 20 MG TABLET (FP) PO SCH (22:01)
[2018-11-25] MEDS: ZOLPIDEM TARTRATE 5 MG TABLET PO PRN (22:01)
[2018-11-26] MEDS: METOLAZONE 5 MG TABLET PO SCH (05:37)
[2018-11-26] MEDS: CYCLOBENZAPRINE HCL 10 MG TABLET (FP) PO SCH ×2 (06:14→13:21)
[2018-11-26] MEDS: LEVOTHYROXINE NA 25 MCG TABLET (FP) PO SCH (06:14)
[2018-11-26] MEDS: GABAPENTIN 400 MG CAPSULE (FP) PO SCH ×2 (06:14→13:21)
[2018-11-26] MEDS: FUROSEMIDE 40 MG/4 ML INJECTABLE VIAL IVPUSH SCH ×2 (06:14→13:21)
[2018-11-26 07:31] LABS: BASO % 0.7 % (0-2.0); EOS % 3.1 % (0-4.5); HEMATOCRIT 29.1 % (32.4-45.2); HEMOGLOBIN 9.3 GM/dL (10.7-15.3); LYMPH % 23.4 % (8-40); MCH 25.7 pg (25.7-33.7); MCHC 31.8 g/dl (32.0-36.0); MEAN CELL VOLUME 80.7 fl (80-96); MEAN PLT VOLUME 7.3 fl (7.5-11.1); MONO % 4.5 % (3.8-10.2); NEUT % 68.3 % (42.8-82.8); PLATELET COUNT 319 K/MM3 (134-434); RBC 3.61 M/mm3 (3.60-5.2); RDW 15.1 % (11.6-15.6); WHITE BLOOD COUNT 7.6 K/mm3 (4.0-10.0)
[2018-11-26 07:33] LABS: CALCIUM 9.4 mg/dL (8.5-10.1); CREATININE 0.8 mg/dL (0.55-1.3); PHOSPHOROUS 4.4 mg/dL (2.5-4.9); POTASSIUM 3.1 mmol/L (3.5-5.1)
[2018-11-26] MEDS: ACETYLCYSTEINE 20% 200MG/ML 4 ML VIAL *FOR ORAL / INH USE ONLY NEB SCH ×2 (08:52→12:22)
[2018-11-26] MEDS: ALBUTEROL SO4 0.083% IH SOL 2.5 MG/3 ML VIAL.NEB. NEB PRN (08:52)
[2018-11-26] MEDS ORDERED: traMADol HCL 50 MG TABLET PO PRN (09:39)
[2018-11-26] MEDS ORDERED: LORazepam 0.5 MG TABLET PO PRN (09:40)
[2018-11-26] MEDS ORDERED: POTASSIUM CHLORIDE ORAL LIQUID 20 MEQ/15 ML PO ONE (09:45)
[2018-11-26] MEDS: ASPIRIN 81 MG CHEWABLE TABLETS PO SCH (10:27)
[2018-11-26] MEDS: ESCITALOPRAM OXALATE 20 MG TABLET (FP) PO SCH (10:27)
[2018-11-26] MEDS: MULTIVITAMINS (DAILY MVI) TABLET (FP) PO SCH (10:27)
[2018-11-26] MEDS: POTASSIUM CHLORIDE ORAL LIQUID 20 MEQ/15 ML PO SCH (10:27)
[2018-11-26] MEDS: ARIPiprazole 10 MG TABLET PO SCH (10:27)
[2018-11-26] MEDS: APIXABAN 5 MG TABLET PO SCH (10:27)
[2018-11-26] MEDS: PANTOPRAZOLE 40 MG TABLET (FP) PO SCH (10:28)
[2018-11-26] MEDS: BUDESONIDE/FORMETEROL FUMARATE 160/4.5 mcg INHALER IH SCH (10:30)
[2018-11-26] MEDS ORDERED: NYSTATIN 100,000 UNIT/GM TOPICAL CREAM 15 GM TUBE TP PRN (10:44)
[2018-11-26 13:45] VITALS: BP 136/60; PULSE 72; TEMP 98.4
== END 2018-11-26 14:29 | disposition short-term general hospital (02) | DRG 207 ==
LOC: JER 19:47 → JERBED 22:23 → OBSVTOIN 11-08 00:01 → J5S 11-08 21:28
PROVIDERS: ADMIT Internal Medicine; ATTEND Internal Medicine
PROC: 5A1955Z Respiratory Ventilation, Greater than 96 Consecutive Hours (ICD-10-PCS; principal; 2018-11-07)
PROC: 0B21XFZ Change Tracheostomy Device in Trachea, External Approach (ICD-10-PCS; 2018-11-17)
PROC: 0BJ08ZZ Inspection of Tracheobronchial Tree, Via Natural or Artificial Opening Endoscopic (ICD-10-PCS; 2018-11-17)
DX: J96.21 Acute and chronic respiratory failure with hypoxia (principal); I50.33 Acute on chronic diastolic (congestive) heart failure; N39.0 Urinary tract infection, site not specified; J44.1 Chronic obstructive pulmonary disease with (acute) exacerbation; Z68.45 Body mass index [BMI] 70 or greater, adult; T83.511A Infection and inflammatory reaction due to indwelling urethral catheter, initial encounter; J96.22 Acute and chronic respiratory failure with hypercapnia; I11.0 Hypertensive heart disease with heart failure; R60.1 Generalized edema; E66.01 Morbid (severe) obesity due to excess calories; E03.9 Hypothyroidism, unspecified; E78.5 Hyperlipidemia, unspecified; E11.9 Type 2 diabetes mellitus without complications; F31.9 Bipolar disorder, unspecified; R56.9 Unspecified convulsions; I45.19 Other right bundle-branch block; Z74.01 Bed confinement status; R00.1 Bradycardia, unspecified; R82.71 Bacteriuria; D64.9 Anemia, unspecified; E87.70 Fluid overload, unspecified; R07.89 Other chest pain; Z86.718 Personal history of other venous thrombosis and embolism; Z87.891 Personal history of nicotine dependence; Z93.0 Tracheostomy status; Z99.81 Dependence on supplemental oxygen; Z22.39 Carrier of other specified bacterial diseases
CPT/HCPCS: 36415; 36600; 71045-TC-FY; 80048; 80053; 81003; 82375; 82550; 82803; 83050; 83735; 83880; 84100; 84443; 84484; 85025; 85027; 85610; 85730; 87086; 87186; 93005; 93010; 93306-TC; 93970-TC; 94002; 94640; 99285-25; G0378

== ENCOUNTER 2019-02-28 13:56 | Inpatient (IN) | payer OTHER ==
--- NOTE | 2019-02-28 14:01 | PDOC ---
History of Present Illness - General Chief Complaint: Respiratory Stated Complaint: Respiratory Time Seen by Provider: 02/28/19 14:00 History Source: Patient Exam Limitations: No Limitations - History of Present Illness Initial Comments: Pt is a 53 yo F, presenting from [facility] via EMS with PMH of chronic respiratory disease (chronic vent, trach x1 year 2/2 long-term smoking), CHF ( 80 mg BID lasix), COPD, pneumonia, venous TBE (on eliquis), morbid obesity, HLD , hypothyroidism, and anemia, who is presenting with worsening SOB and productive cough x3 days. Pt states she woke up this morning and "couldn't breath". Pt denies any recent fevers/chills, headache, vision changes, syncope, chest pain, palpitations, nausea/vomiting, abdominal pain, urinary symptoms, diarrhea/constipation, or leg swelling. Allergies: NKDA PCP: Graciela Pulm: Tulio Social: Pt denies any cigarette, alcohol, or drug use. Pt denies any recent travel or sick contacts. Surgical: no relevant history. Family: no relevant history. 02/28/19 15:05 Past History - Travel Traveled outside of the country in the last 30 days: No Close contact w/someone who was outside of country & ill: No - Past Medical History Allergies/Adverse Reactions: Allergies Allergy/AdvReac Type Severity Reaction Status Date / Time No Known Allergies Allergy Verified 11/07/18 20:14 Home Medications: Ambulatory Orders Aripiprazole 10 mg PO DAILY 10/18/17 Aspirin 81 mg PO DAILY 10/18/17 Levothyroxine [Synthroid -] 25 mcg PO DAILY 10/18/17 Sennosides [Senna -] 2 tab PO HS tablet 01/18/18 Docusate Sodium [Colace] 100 mg PO HS 01/24/18 Escitalopram Oxalate [Lexapro -] 20 mg PO DAILY 01/24/18 Pantoprazole Sodium [Protonix -] 40 mg PO DAILY #60 tablet.ec 05/20/18 Budesonide/Formeterol Fumarate [SYMBICORT 160/4.5mcg -] 2 inh PO BID 08/25/18 Gabapentin [Neurontin -] 400 mg PO Q8H 08/25/18 Montelukast Na [Singulair -] 10 mg PO HS 08/25/18 traZODone HCL [Desyrel -] 100 mg PO HS 08/25/18 Albuterol 2.5/Ipratropium 0.5 [Duoneb -] 1 amp NEB Q6H PRN amp 08/30/18 Multivitamin [One-Daily Multi-Vitamin] 1 each PO DAILY #30 tablet 09/01/18 Nystatin/Triamcinolone Top Oin [Mycolog II -] 1 applic TP BID #30 applic Acetylcysteine Po/INH 20% [Mucomyst 20 Oral / INH Use Only*] 200 mg NEB RQID # 20 vial 11/25/18 Apixaban [Eliquis -] 5 mg PO BID #60 tablet 11/25/18 Budesonide/Formeterol Fumarate [SYMBICORT 160/4.5mcg -] 2 puff IH BID #30 inhaler 11/25/18 Cyclobenzaprine HCl [Flexeril -] 10 mg PO TID tablet 11/25/18 Furosemide Injection [Lasix Injection -] 80 mg IVPUSH BID@0600,1400 #30 vial 04/07 Metolazone [Zaroxolyn -] 5 mg PO DAILY@0530 #30 tablet 11/25/18 Potassium Chloride [Potassium Chloride Oral Liquid] 20 meq PO DAILY #20 cup 04/07 Simethicone [Mylicon -] 80 mg PO Q4H PRN #30 tab.chew 11/25/18 Zolpidem Tartrate [Ambien] 5 mg PO HS PRN #30 tablet MDD 1 11/25/18 traMADol HCL [Ultram -] 100 mg PO Q6H PRN #30 tablet MDD 4 11/25/18 Cardiac Disorders: (heart failure- 2013) COPD: Yes CHF: Yes Diabetes: Yes HTN: Yes Hypercholesterolemia: Yes Psychiatric Problems: Yes (bipolar) Seizures: Yes Thyroid Disease: Yes - Surgical History Appendectomy: No Gastric Stapling: No - Immunization History Immunization Up to Date: Yes - Suicide/Smoking/Psychosocial Hx Smoking Status: No Smoking History: Former smoker Have you smoked in the past 12 months: No Number of Cigarettes Smoked Daily: 5 If you are a former smoker, when did you quit?: 2017 'Breaking Loose' booklet given: 05/11/18 Hx Alcohol Use: No Drug/Substance Use Hx: No Substance Use Type: None Hx Substance Use Treatment: No Respiratory Specific PMHX - Complaint Specific PMHX Angina: No Bronchitis: No Pneumonia: Yes Pulmonary Embolus: No (venous TBE) TB (Tuberculosis): No Review of Systems - Review of Systems Able to Perform ROS?: Yes Is the patient limited Albanian proficient: No Constitutional: No: Chills, Diaphoresis, Fever, Loss of Appetite, Night Sweats HEENTM: No: Recent change in vision, Nose Congestion, Throat Pain, Difficulty Swallowing Respiratory: Yes: Cough, Shortness of Breath, SOB at Rest, Productive cough. No : Orthopnea, Wheezing, Hemoptysis Cardiac (ROS): No: Chest Pain, Edema, Irregular Heart Rate, Lightheadedness, Palpitations, Syncope, Chest Tightness ABD/GI: No: Constipated, Diarrhea, Nausea, Poor Appetite, Poor Fluid Intake, Vomiting : No: Burning, Dysuria, Frequency, Pain, Urgency Musculoskeletal: No: Back Pain, Joint Pain, Muscle Pain, Muscle Weakness Integumentary: No: Rash Neurological: No: Headache, Numbness, Dizziness, Other (pt bed bound at baseline ) Psychiatric: No: Sleep Pattern Change, Change in Appetite Endocrine: No: Increased Urine, Change in Weight Hematologic/Lymphatic: Yes: Anemia, Blood Clots (venous TBE). No: Easy Bleeding , Easy Bruising All Other Systems: Reviewed and Negative *Physical Exam - Physical Exam Comments: Vitals stable, pt afebrile. Pt in NAD, saturating 100% on the vent. Morbidly obese body habitus. Pt alert and oriented x3. silver solderer generally intact, muscular strength and sensation intact. No midline spinal tenderness, step-offs, or crepitus. Head normocephalic, atraumatic. Eyes PERRLA, EOMI. Oropharynx without erythema or exudates, no LAD b/l. No nasal congestion, hearing intact. Clear heart sounds, S1/S2, no JVD, b/l pedal edema, or heart murmur. Significantly reduced lung sounds (affected by pt body habitus) with coarse lung sounds throughout No abdominal or CVA tenderness to palpation, no rebound, no guarding. Abdomen soft, protuberant, and with normoactive bowel sounds. Skin without jaundice or rash. 02/28/19 14:39 02/28/19 15:14 ED Treatment Course - LABORATORY CBC & Chemistry Diagram: 02/28/19 15:07 02/28/19 15:07 Medical Decision Making - Medical Decision Making Pt was seen at bedside, also will be seen by attending Dr. Patterson. Pt presenting with complaints of worsening productive cough/SOB x3 days. Work-up for pneumonia vs pleural effusion. Pt has had VTE in the past, but is 100% on her normal vent settings, no increased LE swelling from baseline. No chest pain today, but will evaluate for ACS. Pt denying breathing treatments at this point. Will continue to reassess pt and monitor for symptomatic improvement. ECG: NSR (HR 78, CA 164, QRS 116, QTc 421), LAD with LVH. No TWIs or significant ST segment changes. No significant changes from prior ECG (11/07/2018 ). 02/28/19 14:39 CBC: WBC 15, anemia at baseline CMP with hypercapnia, BUN 23 -- providing IVF Pending chest x-ray and UA. Called radiology for x-ray. Provided decadron and duoneb breathing treatment. 02/28/19 16:17 UA sent Chest x-ray showed increased consolidation lower lobes with congestion Providing vanc, zosyn, azithro to cover for HAP Paged hospitalist team for admission 02/28/19 17:50 Pt admitted to hospitalist team (Dr. Tomlinson). pt lying comfortably. Paged respiratory again to assist with her suctioning and trach parts. 02/28/19 18:13 *DC/Admit/Observation/Transfer Diagnosis at time of Disposition: COPD exacerbation, Acute on chronic respiratory failure with hypoxia and hypercapnia Pneumonia Qualifiers: Pneumonia type: due to unspecified organism Laterality: right Lung location: lower lobe of lung Qualified Code(s): J18.1 - Lobar pneumonia, unspecified organism - Discharge Dispostion Condition at time of disposition: Stable Decision to Admit order: Yes - Referrals Referrals: Robert Owens [Primary Care Provider] - - Patient Instructions - Post Discharge Activity
[2019-02-28] MEDS ORDERED: ALBUTEROL SO4 2.5/IPRATROPIUM 0.5 INH SOL 3 ML VIAL.NEB. NEB ONE ×2 (14:39→23:46)
[2019-02-28] MEDS ORDERED: DEXAMETHASONE SOD PHOSPHATE 10 MG/1 ML VIAL ONE (14:39)
[2019-02-28 14:42] LABS: ARTERIAL BLD GAS O2 SATURATION 91.9 % (95-98); ARTERIAL BLOOD GAS BASE EXCESS 21.4 meq/l (-2-2); ARTERIAL BLOOD GAS PO2 65.1 mmHg (80-105); ARTERIAL BLOOD GAS pH 7.43 (7.35-7.45); CARBOXYHEMOGLOBIN 1.6 % (0-2)
[2019-02-28 14:45] LABS: ALLENS TEST POSITIVE
[2019-02-28 14:49] LABS: ARTERIAL BLOOD GAS PCO2 79.9 mmHg (35-45)
[2019-02-28 15:32] LABS: BASO % 0.2 % (0-2.0); HEMATOCRIT 34.2 % (32.4-45.2); HEMOGLOBIN 10.6 GM/dL (10.7-15.3); LYMPH % 5.1 % (8-40); MCH 24.5 pg (25.7-33.7); MEAN CELL VOLUME 79.1 fl (80-96); MEAN PLT VOLUME 7.3 fl (7.5-11.1); MONO % 1.6 % (3.8-10.2); NEUT % 93.1 % (42.8-82.8); PLATELET COUNT 356 K/MM3 (134-434); RBC 4.32 M/mm3 (3.60-5.2); RDW 17.3 % (11.6-15.6); WHITE BLOOD COUNT 15.8 K/mm3 (4.0-10.0)
[2019-02-28 15:48] LABS: INR 1.47 (0.83-1.09); PROTHROMBIN TIME (PATIENT) 17.4 SEC (9.7-13.0)
[2019-02-28 15:51] LABS: ACTIVATED PTT 37.8 SECONDS (25.2-36.5)
[2019-02-28 16:06] LABS: ALBUMIN 3.4 g/dl (3.4-5.0); ALK PHOS 88 U/L (45-117); ANION GAP 13 MMOL/L (8-16); BILIRUBIN,TOTAL 0.6 mg/dL (0.2-1); BLOOD UREA NITROGEN 23.1 mg/dL (7-18); CALCIUM 9.6 mg/dL (8.5-10.1); CHLORIDE 79 mmol/L (98-107); CO2 > 45 mmol/L (21-32); CREATININE 0.7 mg/dL (0.55-1.3); GLUCOSE,RANDOM 148 mg/dL (74-106); MAGNESIUM 2.1 mg/dL (1.8-2.4); N-TERMINAL BNP 51.8 pg/ml (5-125); SGOT/AST 63 U/L (15-37); SGPT/ALT 38 U/L (13-61); SODIUM 137 mmol/L (136-145); TOT PROT 8.1 g/dl (6.4-8.2)
[2019-02-28] MEDS ORDERED: SODIUM CHLORIDE 1,000 ML IV STA (16:08)
[2019-02-28] MEDS ORDERED: ACETAMINOPHEN 1000 MG/100 ML VIAL (NON FORMULARY) IVPB ONE (17:10)
[2019-02-28] MEDS ORDERED: ACETAMINOPHEN INJECTION 100 ML IVPB ONE (17:10)
--- NOTE | 2019-02-28 17:23 | PDOC ---
Documentation entered by Bret Rice SCRIBE, acting as scribe for Adrian Patterson MD. Adrian Patterson MD: This documentation has been prepared by the Dwayne yee Elijah, SCRIBE, under my direction and personally reviewed by me in its entirety. I confirm that the documentation accurately reflects all work, treatment, procedures, and medical decision making performed by me. Attending Attestation - Resident Resident Name: Vani Freed - ED Attending Attestation I have performed the following: I have examined & evaluated the patient, The case was reviewed & discussed with the resident, I agree w/resident's findings & plan, Exceptions are as noted - HPI HPI: 02/28/19 16:50 Patient is a 53 year old female with a significant past medical history of chronic respiratory disease (chronic vent, trach x1 year 2/2 long-term smoking) , CHF (80 mg BID lasix), COPD, pneumonia, venous TBE (on eliquis), morbid obesity, HLD, hypothyroidism, and anemia who presents to the ED via EMS with worsening SOB and productive cough lasting for x3 days. Patient reports that this morning she woke up not being able to breathe prompting her to come into the ED. Denies fever, chills, headache, nausea, vomiting and diarrhea. Allergies: NKA PCP: Dr. Owens Foreman/Pile Driving And Erection: Dr. Antunez - Physicial Exam PE: 02/28/19 16:50 Agree with Resident's exam - Medical Decision Making 02/28/19 17:21 53yo F, trach/vent dependent presents to the ED with SOB and cough. ABG with some hypoxia and chronic CO2 retention -> increased O2 on vent CXR with possible infiltrate, likely PNA +leukocytosis to 15.6 Pt covered empirically for HCAP given frequent admissions Anticipate admission 02/28/19 18:00 Case discussed with admitted TRAIN CONTROL ELECTRONIC TECHNICIAN Hernandez Billings, pt accepted for admission
[2019-02-28] MEDS ORDERED: VANCOMYCIN 1,500 MG in DEXTROSE 5%-WATER - 250 ML IVPB ONE (17:31)
[2019-02-28] MEDS ORDERED: PIPERACILLIN/TAZOB 3.375 GM 3.375 GM in DEXTROSE 5%-WATER - 50 ML IVPB ONE (17:32)
[2019-02-28] MEDS ORDERED: AZITHROMYCIN IVPB 500 MG in DEXTROSE 5%-WATER - 250 ML IVPB ONE (17:32)
[2019-02-28] MEDS ORDERED: PIPERACILLIN/TAZOB 3.375 GM 3.375 GM/50 ML BAG IVPB ONE (17:40)
[2019-02-28 18:05] LABS: EPI CELLS 2.9 /HPF (0-5/HPF); HYALINE CASTS 0 /lpf (0-8); URINE APPEARANCE CLEAR; URINE BACTERIA 1574.2 /hpf (NEGATIVE); URINE BILIRUBIN NEGATIVE (NEGATIVE); URINE COLOR YELLOW; URINE GLUCOSE (UA) NEGATIVE (NEGATIVE); URINE KETONE NEGATIVE (NEGATIVE); URINE LEUK ESTERASE TRACE (NEGATIVE); URINE NITRITE POSITIVE (NEGATIVE); URINE PROTEIN NEGATIVE (NEGATIVE); URINE RBC 1 /hpf (0-4); URINE UROBILINOGEN 0.2 mg/dL (0.2-1.0); URINE WBC 3 /hpf (0-5)
[2019-02-28] MEDS ORDERED: AZITHROMYCIN IVPB 500 MG/250 ML BAG IVPB ONE (18:46)
[2019-02-28 20:03] LABS: ANISOCYTOSIS 3+; MACROCYTOSIS 0; PLATELET ESTIMATE NORMAL
[2019-02-28] MEDS ORDERED: IPRATROPIUM BR 0.02% 0.5 MG/2.5 ML VIAL.NEB. NEB PRN (20:37)
[2019-02-28] MEDS ORDERED: ALBUTEROL SO4 0.083% IH SOL 2.5 MG/3 ML VIAL.NEB. NEB PRN (20:37)
[2019-02-28] MEDS ORDERED: SODIUM CHLORIDE 0.45% 1,000 ML IV SCH (20:45)
--- NOTE | 2019-02-28 20:55 | HP ---
CHIEF COMPLAINT: SOB & Cough PCP: Dr. Tomlinson HISTORY OF PRESENT ILLNESS: 53 year old female arrived from [facility] via EMS with PMH of chronic respiratory disease (chronic vent, trach x1 year 2/2 long- term smoking), CHF, COPD, pneumonia, venous TBE (on eliquis), morbid obesity, HLD, hypothyroidism, and anemia, who is presenting with worsening SOB and productive cough x3 days. Pt states she sob / cough has been getting worse for past 3 days. Patient denies any recent fevers/chills, headache, vision changes, syncope, chest pain, palpitations, nausea/vomiting, abdominal pain, urinary symptoms, diarrhea/constipation, or leg swelling. ER course was notable for: CXR: congestive changes , possible infiltrate ECG: NSR (HR 78, WI 164, QRS 116, QTc 421), LAD with LVH. No TWIs or significant ST segment changes. No significant changes from prior ECG ABG: hypoxia with chronic Co2 retention- continue with 02 on vent CBC: WBC 15 CMP: BUN 23 In ED given decadron and duoneb breathing treatment. In ED given vanc, zosyn, azithro to cover for HAP Recent Travel: PAST MEDICAL HISTORY: CHF, COPD, DM, HTN, HLD, Bipolar, Seizures, Hypothyroidism PAST SURGICAL HISTORY: tracheotomy Social History: Smoking: NO Alcohol: h/o of smoking quite in 2017 Drugs: NO Family History: Father (HTN); Mother ( HTN, DM) Allergies: No Known Allergies Allergy (Verified 11/07/18 20:14) HOME MEDICATIONS: Home Medications Medication Instructions Recorded Aripiprazole 10 mg PO DAILY 10/18/17 Aspirin 81 mg PO DAILY 10/18/17 Levothyroxine [Synthroid -] 25 mcg PO DAILY 10/18/17 Sennosides [Senna -] 2 tab PO HS tablet 01/18/18 Docusate Sodium [Colace] 100 mg PO HS 01/24/18 Escitalopram Oxalate [Lexapro -] 20 mg PO DAILY 01/24/18 Pantoprazole Sodium [Protonix -] 40 mg PO DAILY #60 tablet.ec 05/20/18 Budesonide/Formeterol Fumarate 2 inh PO BID 08/25/18 [SYMBICORT 160/4.5mcg -] Gabapentin [Neurontin -] 400 mg PO Q8H 08/25/18 Montelukast Na [Singulair -] 10 mg PO HS 08/25/18 traZODone HCL [Desyrel -] 100 mg PO HS 08/25/18 Albuterol 2.5/Ipratropium 0.5 1 amp NEB Q6H PRN amp 08/30/18 [Duoneb -] Multivitamin [One-Daily 1 each PO DAILY #30 tablet 09/01/18 Multi-Vitamin] Nystatin/Triamcinolone Top Oin 1 applic TP BID #30 applic 09/01/18 [Mycolog II -] Acetylcysteine Po/INH 20% 200 mg NEB RQID #20 vial 11/25/18 [Mucomyst 20 Oral / INH Use Only*] Apixaban [Eliquis -] 5 mg PO BID #60 tablet 11/25/18 Budesonide/Formeterol Fumarate 2 puff IH BID #30 inhaler 11/25/18 [SYMBICORT 160/4.5mcg -] Cyclobenzaprine HCl [Flexeril -] 10 mg PO TID tablet 11/25/18 Furosemide Injection [Lasix 80 mg IVPUSH BID@0600,1400 #30 vial 11/25/18 Injection -] Metolazone [Zaroxolyn -] 5 mg PO DAILY@0530 #30 tablet 11/25/18 Potassium Chloride [Potassium 20 meq PO DAILY #20 cup 11/25/18 Chloride Oral Liquid] Simethicone [Mylicon -] 80 mg PO Q4H PRN #30 tab.chew 11/25/18 Zolpidem Tartrate [Ambien] 5 mg PO HS PRN #30 tablet MDD 1 11/25/18 traMADol HCL [Ultram -] 100 mg PO Q6H PRN #30 tablet MDD 4 11/25/18 REVIEW OF SYSTEMS Constitutional: Absent: Chills, Fever, Loss of Appetite HEENT: Denies: Recent change in vision, Nose Congestion, Throat Pain, Difficulty Swallowing Respiratory: Yes: Cough, Shortness of Breath, SOB at Rest, Productive cough. Cardiac : Denies: Chest Pain, Edema, Irregular Heart Rate, Lightheadedness, Palpitations, Syncope, Chest Tightness GI: Denies: Constipated, Diarrhea, Nausea, Vomiting : Absent: Burning, Dysuria, Frequency, Pain, Urgency Musculoskeletal: Absent: Back Pain, Joint Pain, Muscle Pain, Muscle Weakness Integumentary: Absent: Rash Neurological: Absent: Headache, Numbness, Dizziness PHYSICAL EXAMINATION Vital Signs - 24 hr 02/28/19 02/28/19 02/28/19 13:59 14:00 14:29 Temperature 98.7 F Pulse Rate 95 H Respiratory 14 14 Rate Blood Pressure 119/59 L O2 Sat by Pulse 100 98 Oximetry (%) 02/28/19 02/28/19 14:39 16:49 Temperature Pulse Rate Respiratory 22 H 21 H Rate Blood Pressure O2 Sat by Pulse Oximetry (%) GENERAL: Awake, alert, and fully oriented, in no acute distress. HEAD: Normal with no signs of trauma. EYES: Pupils equal, round and reactive to light, extraocular movements intact, sclera anicteric, conjunctiva clear. No lid lag. EARS, NOSE, THROAT: Ears normal, nares patent, oropharynx clear without exudates. Moist mucous membranes. NECK: Normal range of motion, supple without lymphadenopathy, JVD, or masses. LUNGS: Breath sounds equal, clear to auscultation bilaterally. No wheezes, and no crackles. No accessory muscle use. HEART: Regular rate and rhythm, normal S1 and S2 without murmur, rub or gallop. ABDOMEN: Soft, nontender, not distended, normoactive bowel sounds, no guarding, no rebound, no masses. No hepatomegaly or splenomegaly. MUSCULOSKELETAL: Normal range of motion at all joints. No bony deformities or tenderness. No CVA tenderness. UPPER EXTREMITIES: 2+ pulses, warm, well-perfused. No cyanosis. No clubbing. No peripheral edema. LOWER EXTREMITIES: 2+ pulses, warm, well-perfused. No calf tenderness. No peripheral edema. NEUROLOGICAL: Cranial nerves II-XII intact. Normal speech. Normal gait. PSYCHIATRIC: Cooperative. Good eye contact. Appropriate mood and affect. SKIN: Warm, dry, normal turgor, no rashes or lesions noted, normal capillary refill. Laboratory Results - last 24 hr 02/28/19 02/28/19 02/28/19 14:20 15:07 15:07 WBC 15.8 H RBC 4.32 Hgb 10.6 L Hct 34.2 D MCV 79.1 L MCH 24.5 L MCHC 31.0 L RDW 17.3 H Plt Count 356 MPV 7.3 L Absolute Neuts (auto) 14.7 H Neutrophils % 93.1 H D Lymphocytes % 5.1 L D Monocytes % 1.6 L Eosinophils % 0.0 D Basophils % 0.2 Nucleated RBC % 0 PT with INR INR PTT (Actin FS) Anticoagulation Therapy No Result Required. Puncture Site Right radial ABG pH 7.43 ABG pCO2 at Pt Temp 79.9 H* ABG pO2 at Pt Temp 65.1 L ABG HCO3 52.2 H ABG O2 Sat (Measured) 91.9 L ABG O2 Content 20.7 ABG Base Excess 21.4 H Harris Test Positive Carboxyhemoglobin 1.6 Methemoglobin 0.7 O2 Delivery Device No Result Required. Oxygen Flow Rate 45 Vent Mode No Result Required. Vent Rate No Result Required. Mechanical Rate No Result Required. PEEP 5.0 Pressure Support Vent No Result Required. Sodium Potassium Chloride Carbon Dioxide Anion Gap BUN Creatinine Est GFR (CKD-EPI)AfAm Est GFR (CKD-EPI)NonAf Random Glucose Calcium Magnesium Total Bilirubin AST ALT Alkaline Phosphatase Creatine Kinase 23 L Troponin I < 0.02 B-Natriuretic Peptide Total Protein Albumin Urine Color Urine Appearance Urine pH Ur Specific Cove Urine Protein Urine Glucose (UA) Urine Ketones Urine Blood Urine Nitrite Urine Bilirubin Urine Urobilinogen Ur Leukocyte Esterase Urine WBC (Auto) Urine RBC (Auto) Urine Casts (Auto) U Epithel Cells (Auto) Urine Bacteria (Auto) 02/28/19 02/28/19 02/28/19 15:07 15:07 17:36 WBC RBC Hgb Hct MCV MCH MCHC RDW Plt Count MPV Absolute Neuts (auto) Neutrophils % Lymphocytes % Monocytes % Eosinophils % Basophils % Nucleated RBC % PT with INR 17.40 H INR 1.47 H PTT (Actin FS) 37.8 H Anticoagulation Therapy Puncture Site ABG pH ABG pCO2 at Pt Temp ABG pO2 at Pt Temp ABG HCO3 ABG O2 Sat (Measured) ABG O2 Content ABG Base Excess Harris Test Carboxyhemoglobin Methemoglobin O2 Delivery Device Oxygen Flow Rate Vent Mode Vent Rate Mechanical Rate PEEP Pressure Support Vent Sodium 137 Potassium 5.0 Chloride 79 L Carbon Dioxide > 45 H Anion Gap 13 BUN 23.1 H Creatinine 0.7 Est GFR (CKD-EPI)AfAm 114.65 Est GFR (CKD-EPI)NonAf 98.92 Random Glucose 148 H Calcium 9.6 Magnesium 2.1 Total Bilirubin 0.6 AST 63 H ALT 38 Alkaline Phosphatase 88 Creatine Kinase Troponin I B-Natriuretic Peptide 51.8 Total Protein 8.1 Albumin 3.4 Urine Color Yellow Urine Appearance Clear Urine pH 8.0 Ur Specific Cove 1.009 L Urine Protein Negative Urine Glucose (UA) Negative Urine Ketones Negative Urine Blood Negative Urine Nitrite Positive H Urine Bilirubin Negative Urine Urobilinogen 0.2 Ur Leukocyte Esterase Trace Urine WBC (Auto) 3 Urine RBC (Auto) 1 Urine Casts (Auto) 0 U Epithel Cells (Auto) 2.9 Urine Bacteria (Auto) 1574.2 ASSESSMENT/PLAN: 53 year old female with PMHx of CHF, COPD, DM, HTN, HLD, Bipolar, Seizures, Hypothyroidism arrived to ED form [place] with complaints of worsening productive cough/SOB x3 days. #Pneumonia #Acute on chronic respiratory failure with hypoxia and hypercapnia #Acute COPD exacerbation # ?UTI CXR: congestive changes , possible infiltrate ECG: NSR (HR 78, WI 164, QRS 116, QTc 421), LAD with LVH. No significant changes from prior ECG ABG: hypoxia with chronic Co2 retention- continue with 02 on vent CBC: WBC 15 CMP: BUN 23 In ED given decadron and duoneb breathing treatment. In ED given vanc, zosyn, azithro to cover for HAP - continue with vent support & trach care - continue with nebulizer q 4 hours - Continue with solu-medrol Q 8 hours - Continue with Zosyn daily pending ID follow up - follow up senior service technician consult - monitor spo2 closely - continue with IVF - follow up Urine culture - follow cbc, cmp, lactic acid in AM #CHF #HTN/HLD # venous TBE - continue with lasix and Zaroxolyn - Continue with eliquis # Bipolar disoder Continue with Aripiprazole 10 mg PO DAILY Continue with Escitalopram Oxalate 20 mg PO DAILY Continue with traZODone HCL 100 mg PO HS # Hypothyrodism - Continue with Levothyroxine 25 mcg PO DAILY # Constipation - Continue with Colace and senna # GERD - Continue with Protonix - Continue with Simethicone PO Q4H PRN # DM - monitor FSBS Problem List - Problem (1) Acute on chronic respiratory failure with hypoxia and hypercapnia Code(s): J96.21 - ACUTE AND CHRONIC RESPIRATORY FAILURE WITH HYPOXIA; J96.22 - ACUTE AND CHRONIC RESPIRATORY FAILURE WITH HYPERCAPNIA (2) Pneumonia Code(s): J18.9 - PNEUMONIA, UNSPECIFIED ORGANISM Qualifiers: Pneumonia type: due to unspecified organism Laterality: right Lung location: lower lobe of lung Qualified Code(s): J18.1 - Lobar pneumonia, unspecified organism (3) UTI (urinary tract infection) Code(s): N39.0 - URINARY TRACT INFECTION, SITE NOT SPECIFIED Qualifiers: Urinary tract infection type: catheter-associated UTI Indwelling urinary catheter type: indwelling urethral catheter Encounter type: initial encounter Qualified Code(s): T83.511A - Infection and inflammatory reaction due to indwelling urethral catheter, initial encounter; N39.0 - Urinary tract infection , site not specified (4) COPD exacerbation Code(s): J44.1 - CHRONIC OBSTRUCTIVE PULMONARY DISEASE W (ACUTE) EXACERBATION (5) Tracheostomy dependence Code(s): Z93.0 - TRACHEOSTOMY STATUS (6) HLD (hyperlipidemia) Code(s): E78.5 - HYPERLIPIDEMIA, UNSPECIFIED (7) Bipolar 1 disorder, depressed Code(s): F31.9 - BIPOLAR DISORDER, UNSPECIFIED (8) Hypothyroid Code(s): E03.9 - HYPOTHYROIDISM, UNSPECIFIED (9) GERD (gastroesophageal reflux disease) Code(s): K21.9 - GASTRO-ESOPHAGEAL REFLUX DISEASE WITHOUT ESOPHAGITIS (10) Constipation Code(s): K59.00 - CONSTIPATION, UNSPECIFIED (11) CHF (congestive heart failure) Code(s): I50.9 - HEART FAILURE, UNSPECIFIED (12) Morbid (severe) obesity due to excess calories Code(s): E66.01 - MORBID (SEVERE) OBESITY DUE TO EXCESS CALORIES Visit type - Emergency Visit Emergency Visit: Yes ED Registration Date: 02/28/19 Care time: The patient presented to the Emergency Department on the above date and was hospitalized for further evaluation of their emergent condition. - New Patient This patient is new to me today: Yes Date on this admission: 02/28/19 - Critical Care Critical Care patient: No
[2019-02-28] MEDS ORDERED: ACETAMINOPHEN 325 MG TABLET (FP) PO PRN (20:57)
[2019-02-28] MEDS ORDERED: ALBUTEROL SO4 2.5/IPRATROPIUM 0.5 INH SOL 3 ML VIAL.NEB. NEB PRN (22:26)
[2019-02-28] MEDS: traMADol HCL 50 MG TABLET PO SCH (22:58)
[2019-02-28 23:11] LABS: ARTERIAL BLD GAS O2 SATURATION 95.1 % (95-98); ARTERIAL BLOOD GAS BASE EXCESS 19.1 meq/l (-2-2); ARTERIAL BLOOD GAS PCO2 68.5 mmHg (35-45); ARTERIAL BLOOD GAS pH 7.44 (7.35-7.45)
[2019-02-28 23:18] LABS: ALLENS TEST POSITIVE
[2019-02-28] MEDS ORDERED: LORazepam 0.5 MG TABLET ONE (23:29)
[2019-02-28] MEDS: hydrOXYzine HCL 25 MG TABLET (FP) PO SCH (23:41)
[2019-02-28] MEDS: traZODone HCL 100 MG TABLET (FP) PO SCH (23:41)
[2019-02-28] MEDS: CYCLOBENZAPRINE HCL 10 MG TABLET (FP) PO SCH (23:41)
[2019-02-28] MEDS: APIXABAN 5 MG TABLET PO SCH (23:41)
[2019-02-28] MEDS: LORazepam 0.5 MG TABLET PO SCH (23:41)
[2019-02-28] MEDS: SENNOSIDES 8.6MG TABLET (FP) PO SCH (23:42)
[2019-02-28] MEDS: SIMETHICONE 80 MG TAB.CHEW (FP) PO SCH (23:42)
[2019-02-28] MEDS: ATORVASTATIN CA 10 MG TABLET (FP) PO SCH (23:42)
[2019-02-28] MEDS: GABAPENTIN 400 MG CAPSULE (FP) PO SCH (23:42)
[2019-03-01] MEDS ORDERED: PIPERACILLIN/TAZOBACTAM 3.375 GM VIAL IVPB ONE ×2 (02:17→09:16)
[2019-03-01] MEDS ORDERED: DEXTROSE 5%-WATER - 50 ML IVPB ONE ×2 (02:18→09:16)
[2019-03-01] MEDS: PIPERACILLIN/TAZOB 3.375 GM 3.375 GM in DEXTROSE 5%-WATER - 50 ML IVPB SCH ×4 (03:00→14:10)
[2019-03-01] MEDS: methylPREDNISolone NA SUCC 40 MG/1 ML VIAL IVPUSH SCH ×3 (03:00→19:27)
[2019-03-01] MEDS: GABAPENTIN 400 MG CAPSULE (FP) PO SCH ×3 (05:51→22:14)
[2019-03-01] MEDS: traMADol HCL 50 MG TABLET PO SCH ×3 (05:51→22:14)
[2019-03-01] MEDS: FUROSEMIDE 40 MG TABLET (FP) PO SCH ×2 (05:51→16:41)
[2019-03-01] MEDS: CYCLOBENZAPRINE HCL 10 MG TABLET (FP) PO SCH ×3 (05:51→22:15)
[2019-03-01] MEDS: hydrOXYzine HCL 25 MG TABLET (FP) PO SCH ×3 (05:52→22:16)
[2019-03-01] MEDS: ESCITALOPRAM OXALATE 20 MG TABLET (FP) PO SCH (10:28)
[2019-03-01] MEDS: PANTOPRAZOLE 40 MG TABLET (FP) PO SCH (10:28)
[2019-03-01] MEDS: ASPIRIN 81 MG CHEWABLE TABLETS PO SCH (10:28)
[2019-03-01] MEDS: SPIRONOLACTONE 25 MG TABLET (FP) PO SCH (10:28)
[2019-03-01] MEDS: FERROUS SO4 325 MG TABLET (FP) PO SCH (10:28)
[2019-03-01] MEDS: ARIPiprazole 10 MG TABLET PO SCH (10:29)
--- NOTE | 2019-03-01 10:42 | PN ---
Progress Note (short form) - Note Progress Note: ID consult dictated IMP/RECCD 53 yo female with morbid obesity, chronic resp failure with trach, COPD, CHF- admitted with worsening and increased sputum production she was started on 40 mg prednisone n 02/24 at the IN with no improvement alert no GI or symptoms states legs are about the same no fevers or chills pete placed in ED cxray unchanged from last admission 12/05 given vanco/zosyn/zith/decadron and duoneb in ED resting comfortably acute on chronic respiratory failure suspect COPD exacerbation cannot r/o component of CHF doubt pneumonia-but cannot rule out-cxray unchanged, suspect leukocytosis is due to steroids at IN would obtain cultures urinary antigens strict contact isolation for acinetobacter- dedicated equipment rocephin for now will d/w pulmonary consider d/c juan r Problem List - Problems (1) Acute on chronic respiratory failure with hypoxia and hypercapnia Code(s): J96.21 - ACUTE AND CHRONIC RESPIRATORY FAILURE WITH HYPOXIA; J96.22 - ACUTE AND CHRONIC RESPIRATORY FAILURE WITH HYPERCAPNIA (2) COPD exacerbation Code(s): J44.1 - CHRONIC OBSTRUCTIVE PULMONARY DISEASE W (ACUTE) EXACERBATION (3) CHF (congestive heart failure) Code(s): I50.9 - HEART FAILURE, UNSPECIFIED (4) Pneumonia Code(s): J18.9 - PNEUMONIA, UNSPECIFIED ORGANISM Qualifiers: Pneumonia type: due to unspecified organism Laterality: right Lung location: lower lobe of lung Qualified Code(s): J18.1 - Lobar pneumonia, unspecified organism (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
--- NOTE | 2019-03-01 11:12 | PN ---
Progress Note, Physician Chief Complaint: Acute on chronic respiratory failure UTI COPD exacerbation - Current Medication List Current Medications: Active Medications Acetaminophen (Tylenol -) 650 mg PO Q6H PRN PRN Reason: FEVER Albuterol/Ipratropium (Duoneb -) 1 amp NEB Q6H PRN PRN Reason: SHORTNESS OF BREATH Apixaban (Eliquis -) 5 mg PO BID [facility] Last Admin: 02/28/19 23:41 Dose: 5 mg Aripiprazole (Abilify) 10 mg PO DAILY [facility] Last Admin: 03/01/19 10:29 Dose: 10 mg Aspirin (Asa -) 81 mg PO DAILY [facility] Last Admin: 03/01/19 10:28 Dose: 81 mg Atorvastatin Calcium (Lipitor -) 10 mg PO HS [facility] Last Admin: 02/28/19 23:42 Dose: 10 mg Cyclobenzaprine HCl (Flexeril -) 10 mg PO TID [facility] Last Admin: 03/01/19 05:51 Dose: 10 mg Escitalopram Oxalate (Lexapro -) 20 mg PO DAILY [facility] Last Admin: 03/01/19 10:28 Dose: 20 mg Ferrous Sulfate (Feosol -) 325 mg PO DAILY [facility] Last Admin: 03/01/19 10:28 Dose: 325 mg Furosemide (Lasix -) 80 mg PO BIDLASIX [facility] Last Admin: 03/01/19 05:51 Dose: 80 mg Gabapentin (Neurontin -) 400 mg PO TID [facility] Last Admin: 03/01/19 05:51 Dose: 400 mg Hydroxyzine HCl (Atarax -) 25 mg PO TID [facility] Last Admin: 03/01/19 05:52 Dose: 25 mg Sodium Chloride (1/2 Normal Saline) 1,000 mls @ 75 mls/hr IV ASDIR [facility] Last Admin: 03/01/19 02:59 Dose: 75 mls/hr Ceftriaxone Sodium (Ceftriaxone 2 Gm-D5w Bag) 2 gm in 50 mls @ 100 mls/hr IVPB DAILY [facility]; Protocol Lorazepam (Ativan -) 0.5 mg PO HS [facility] Last Admin: 02/28/19 23:41 Dose: 0.5 mg Methylprednisolone Sodium Succinate (Solu-Medrol -) 40 mg IVPUSH Q8H-IV [facility] Last Admin: 03/01/19 10:28 Dose: 40 mg Metolazone (Zaroxolyn -) 2.5 mg PO DAILY@1330 [facility] Pantoprazole Sodium (Protonix -) 40 mg PO DAILY [facility] Last Admin: 03/01/19 10:28 Dose: 40 mg Senna (Senna -) 2 tab PO HS [facility] Last Admin: 02/28/19 23:42 Dose: 2 tab Simethicone (Mylicon -) 80 mg PO QID [facility] Last Admin: 02/28/19 23:42 Dose: 80 mg Spironolactone (Aldactone -) 25 mg PO DAILY [facility] Last Admin: 03/01/19 10:28 Dose: 25 mg Tramadol HCl (Ultram -) 50 mg PO Q8H [facility] Last Admin: 03/01/19 05:51 Dose: 50 mg Trazodone HCl (Desyrel -) 100 mg PO [facility] Last Admin: 02/28/19 23:41 Dose: 100 mg - Objective Vital Signs: Vital Signs Temperature 98.8 F 03/01/19 06:00 Pulse Rate 70 03/01/19 06:00 Respiratory Rate 17 03/01/19 09:00 Blood Pressure 110/71 03/01/19 06:00 O2 Sat by Pulse Oximetry (%) 98 03/01/19 01:30 Constitutional: Yes: Well Nourished, No Distress, Calm, Obese Cardiovascular: Yes: Regular Rate and Rhythm Respiratory: Yes: Mechanically Ventilated Gastrointestinal: Yes: Normal Bowel Sounds, Soft, Abdomen, Obese Genitourinary: Yes: Pete Present Musculoskeletal: Yes: Muscle Weakness Extremities: Yes: WNL Edema: No Peripheral Pulses WNL: Yes Neurological: Yes: Alert, Oriented Psychiatric: Yes: Alert, Oriented Labs: CBC, BMP 02/28/19 15:07 02/28/19 15:07 INR, PTT INR 1.47 (0.83-1.09) H 02/28/19 15:07 Problem List - Problems (1) Acute on chronic respiratory failure with hypoxia and hypercapnia Assessment/Plan: -pulmonary consult -[facility] vent -IV abx -afebrile -CXR questionable infiltrates -On medrol tapering dose -bronchodilators Code(s): J96.21 - ACUTE AND CHRONIC RESPIRATORY FAILURE WITH HYPOXIA; J96.22 - ACUTE AND CHRONIC RESPIRATORY FAILURE WITH HYPERCAPNIA (2) COPD exacerbation Assessment/Plan: -pulmonary consult -[facility] vent -IV abx -afebrile -CXR questionable infiltrates -On medrol tapering dose -bronchodilators Code(s): J44.1 - CHRONIC OBSTRUCTIVE PULMONARY DISEASE W (ACUTE) EXACERBATION (3) Anemia Assessment/Plan: -chronic -Check iron, thyroid, B 12, stool OB -monitor trend Code(s): D64.9 - ANEMIA, UNSPECIFIED (4) UTI (urinary tract infection) Assessment/Plan: -cultures pending -UA+ nitrites -On IV abx -ID on board -afebrile -D/C pete Code(s): N39.0 - URINARY TRACT INFECTION, SITE NOT SPECIFIED Qualifiers: Urinary tract infection type: catheter-associated UTI Indwelling urinary catheter type: indwelling urethral catheter Encounter type: initial encounter Qualified Code(s): T83.511A - Infection and inflammatory reaction due to indwelling urethral catheter, initial encounter; N39.0 - Urinary tract infection , site not specified Assessment/Plan see problem list
[2019-03-01] MEDS: APIXABAN 5 MG TABLET PO SCH ×2 (11:45→22:14)
[2019-03-01] MEDS: SIMETHICONE 80 MG TAB.CHEW (FP) PO SCH ×4 (11:45→22:14)
[2019-03-01 12:09] LABS: BILIRUBIN,TOTAL 0.4 mg/dL (0.2-1); BLOOD UREA NITROGEN 27.5 mg/dL (7-18); CREATININE 0.9 mg/dL (0.55-1.3); POTASSIUM 3.3 mmol/L (3.5-5.1)
--- NOTE | 2019-03-01 12:52 | EKG ---
Test Reason : Blood Pressure : / mmHG Vent. Rate : 078 BPM Atrial Rate : 078 BPM P-R Int : 164 ms QRS Dur : 116 ms QT Int : 370 ms P-R-T Axes : 051 -01 032 degrees QTc Int : 421 ms NORMAL SINUS RHYTHM LEFT VENTRICULAR HYPERTROPHY WITH QRS WIDENING NONSPECIFIC T WAVE ABNORMALITY ABNORMAL ECG WHEN COMPARED WITH ECG OF 07-NOV-2018 20:32, NO SIGNIFICANT CHANGE WAS FOUND Confirmed by MD Lobo, Donte ([id number]) on 03/01/2019 12:52:27 PM Referred By: Confirmed By:Donte Diamond MD
[2019-03-01] MEDS ORDERED: PT OWN MED DRAWER 7, Y5N ONE (12:58)
[2019-03-01 13:25] LABS: HEMATOCRIT 29.5 % (32.4-45.2); HEMOGLOBIN 9.2 GM/dL (10.7-15.3); MCH 24.5 pg (25.7-33.7); MCHC 31.2 g/dl (32.0-36.0); MEAN CELL VOLUME 78.7 fl (80-96); MEAN PLT VOLUME 7.6 fl (7.5-11.1); PLATELET COUNT 322 K/MM3 (134-434); RBC 3.75 M/mm3 (3.60-5.2); RDW 17.3 % (11.6-15.6); WHITE BLOOD COUNT 9.5 K/mm3 (4.0-10.0)
--- NOTE | 2019-03-01 13:27 | PN ---
Progress Note (short form) - Note Progress Note: PULMONARY CONSULTATION DICTATED 03/01/19
--- NOTE | 2019-03-01 13:36 | PN ---
Progress Note (short form) - Note Progress Note: PULMONARY CONSULTATION DICTATED 03/01/19 IMP ACUTE ON CHRONIC HYPOXEMIC/HYPERCAPNEIC RESPIRATORY FAILURE ADVANCED COPD WITH ACUTE EXACERBATION CHF ? PNEUMONIA MORBID OBESITY ANEMIA ELEVATED LACTATE LEVEL HYPOTHYROID HLD PLAN VENT SUPPORT ON AC MODE ABX PER ID LASIX MEDROL F/U CHEST X-RAYS STRICT I+OS TREND LACTATE CULTURES DR STEELE Problem List - Problems (1) Acute on chronic respiratory failure with hypoxia and hypercapnia Code(s): J96.21 - ACUTE AND CHRONIC RESPIRATORY FAILURE WITH HYPOXIA; J96.22 - ACUTE AND CHRONIC RESPIRATORY FAILURE WITH HYPERCAPNIA (2) Anemia Code(s): D64.9 - ANEMIA, UNSPECIFIED (3) Bipolar 1 disorder, depressed Code(s): F31.9 - BIPOLAR DISORDER, UNSPECIFIED (4) COPD exacerbation Code(s): J44.1 - CHRONIC OBSTRUCTIVE PULMONARY DISEASE W (ACUTE) EXACERBATION (5) Pneumonia Code(s): J18.9 - PNEUMONIA, UNSPECIFIED ORGANISM Qualifiers: Pneumonia type: due to unspecified organism Laterality: right Lung location: lower lobe of lung Qualified Code(s): J18.1 - Lobar pneumonia, unspecified organism (6) COPD exacerbation Code(s): J44.1 - CHRONIC OBSTRUCTIVE PULMONARY DISEASE W (ACUTE) EXACERBATION (7) Morbid obesity Code(s): E66.01 - MORBID (SEVERE) OBESITY DUE TO EXCESS CALORIES (8) Tracheostomy dependence Code(s): Z93.0 - TRACHEOSTOMY STATUS (9) GERD (gastroesophageal reflux disease) Code(s): K21.9 - GASTRO-ESOPHAGEAL REFLUX DISEASE WITHOUT ESOPHAGITIS (10) HLD (hyperlipidemia) Code(s): E78.5 - HYPERLIPIDEMIA, UNSPECIFIED (11) Hypothyroid Code(s): E03.9 - HYPOTHYROIDISM, UNSPECIFIED
--- NOTE | 2019-03-01 14:46 | CONS ---
PULMONARY CONSULTATION DATE OF CONSULTATION: 03/01/2019 REFERRING PHYSICIAN: Josie Rojo MD HISTORY OF PRESENT ILLNESS: The patient is a 53-year-old, white female known to me from previous hospitalizations with past medical history of chronic respiratory failure on tracheostomy collar during the day and chronic ventilatory support at night, advanced COPD O2 dependent, congestive heart failure, morbid obesity, recurrent pneumonias, hypothyroidism, hyperlipidemia, anemia, history of venous thromboembolism and maintained on Eliquis, resident of [facility], transferred to [facility] with complaint of increasing shortness of breath and chest congestion. The patient states a few days prior to admission, started having increasing shortness of breath, and noted having increasing tracheal secretions at times with blood clots, as well as yellow sputum. The day of admission, she developed increasing shortness of breath and increasing yellow sputum via tracheostomy. She was transferred to [facility]. She also complained of increasing shortness of breath. On admission, she was felt to have a possible pneumonia. She was placed on antibiotic therapy, as well as ventilatory support, transferred to medical respiratory unit for further management. She has a history of tobacco use; quit a few years ago. There is no history of occupational exposure to chemicals or fumes. There is no history of recent travel. PAST MEDICAL HISTORY: Again, includes chronic respiratory failure on ventilator at night and tracheostomy during the day; advanced COPD; chronic hypoxic, hypercapnic respiratory failure, secondary to long-term smoking; CHF; venous thromboembolism ; morbid obesity; hypertension; hyperlipidemia; hypothyroidism, anemia. REVIEW OF SYSTEMS: Positive shortness of breath. Positive sputum. No fever. No chills. Positive hemoptysis. No abdominal pain, lower extremity edema. CURRENT MEDICATIONS: Include aspirin, Ultram, Protonix, normal saline, Zaroxolyn, Lasix, Aldactone, Feosol, Lipitor, senna, DuoNeb, Ativan, Abilify, Desyrel, Lexapro, Eliquis, and Solu-Medrol. PHYSICAL EXAMINATION: General: The patient is a morbidly obese female, well-developed, awake, alert, currently in no acute distress on ventilator support. Vital Signs: She is afebrile, blood pressure 110/71, respiratory rate 18, O2 saturation is 93% on 45% FiO2. HEENT: Exam is normocephalic, atraumatic. Neck: Supple. Heart: Regular S1 and S2. Chest: Diminished breath sounds bilaterally Abdomen: Soft. Bowel sounds are positive. Extremities: Bilateral lower extremity edema. LABORATORY DATA: WBC is 15.8, hemoglobin 10.6, hematocrit 34.2, with a platelet count of 356,000. INR is 1.47. Blood gas: Initial pH 7.43, PCO2 of 79.9, PO2 of 65, bicarbonate of 52, and a saturation of 91; that was on FiO2 of 45% and PEEP of 5. I am not really sure exactly if that was on ventilator or not. Repeat later that evening on the at 2255: 7.44, PCO2 of 60, a PO2 of 87, bicarbonate 46, and saturation 95. Chemistry: BUN 27, creatinine 0.9, lactate level is 4.3. Chest x-ray: Poor inspiratory effort. Possible bibasilar infiltrates. IMPRESSION: Acute on chronic hypoxemic, hypercapnic respiratory failure, secondary to: 1. Advanced chronic obstructive pulmonary disease with acute exacerbation. 2. Congestive heart failure. 3. Questionable pneumonia versus upper respiratory infection. 4. Morbid obesity. 5. Anemia. 6. Elevated lactate level. 7. Hypothyroidism. 8. Hyperlipidemia. PLAN: Continue ventilator support and on assist-control mode. Tracheostomy collar as tolerated. Antibiotics as per Infectious Disease. Lasix, Solu-Medrol. Continue to follow up chest x-ray. Strict I's and O's. Trend lactate. Obtain cultures. LORA STEELE M.D. PRABHA/[id number] MTDD
[2019-03-01] MEDS: METOLAZONE 2.5 MG TABLET (FP) PO SCH (16:05)
[2019-03-01] MEDS: POTASSIUM CHLORIDE TABS 20 MEQ TABLET.ER (FP) PO SCH (16:07)
[2019-03-01] MEDS: SODIUM CHLORIDE 0.45% 1,000 ML IV SCH (16:41)
[2019-03-01] MEDS ORDERED: DEXTROSE 5%-WATER 100 ML IVPB ONE (19:17)
--- NOTE | 2019-03-01 19:25 | CONS ---
DATE OF CONSULTATION: DATE OF DICTATION: 03/01/2019 INFECTIOUS DISEASE CONSULTATION HISTORY OF PRESENT ILLNESS: This is a 53-year-old morbidly obese woman who resides at the detention. She has a history of chronic respiratory failure on trach collar during the day and ventilator at night. She has a history of CHF, recurrent pneumonia, hypothyroidism. She presents with complaints of increasing shortness of breath over the last several days. She was started on prednisone on the 8th at the detention for these symptoms. As well on the day of admission her Lasix dose was increased. She denies any worsening edema to her legs. She does note increasing shortness of breath. She denies any fever or chills. In the emergency room, she was felt to have possible pneumonia. She was treated with vancomycin, Zosyn, Zithromax, Decadron, and DuoNeb. She currently reports feeling well. She has no GI or symptoms. She is eating well. She states her legs are about the same and has had no fevers or chills. She reports the Carroll was placed in the emergency room. She has no known drug allergies. PAST MEDICAL HISTORY: Notable for CHF, COPD, diabetes, hypertension, hyperlipidemia, bipolar disorder, seizure disorder, hypothyroidism. She has a history of colonization with resistant Acinetobacter. SURGICAL HISTORY: Notable for tracheostomy. SOCIAL HISTORY: She is a former smoker. She resides in the detention. FAMILY HISTORY: Notable for father from pneumonia. Mother of COPD. REVIEW OF SYSTEMS: As per HPI. MEDICATION: Her medications at the detention include the prednisone, which she started recently, trazodone, Ultram, spironolactone, senna, Silvadene, Pulmicort nebulizer, Pravachol, potassium, pantoprazole, multivitamins, Singulair, Zaroxolyn, magnesium oxide, lorazepam, gabapentin, furosemide, ferrous sulfate, Lexapro, Flexeril, aspirin, aripiprazole, apixaban, , and acetaminophen. PHYSICAL EXAMINATION: GENERAL: She is resting comfortably in no distress whatsoever. VITAL SIGNS: Temperature 98.3, pulse is 69, blood pressure 146/81, respiratory rate 20. She is on the vent with FiO2 of 45%. HEENT: Normocephalic. Eyes are anicteric. She has a trach. LUNGS: Diminished breath sounds at the bases. HEART: Regular rate and rhythm. ABDOMEN: Soft, nontender. Cannot appreciate any organomegaly. EXTREMITIES: Notable for trace edema. Chest x-ray is essentially unchanged from her prior film from November. Her labs are notable for a white count of 15.8 with a hemoglobin of 10.6, platelets of 356. BUN and creatinine are 27.5 and 9 with normal LFTs. Her white count has improved from 15.8 to 9.5 this morning. IMPRESSION: In summary, this is a 53-year-old woman with acute on chronic respiratory failure. I suspect chronic obstructive pulmonary disease exacerbation, cannot rule out a component of congestive heart failure. I doubt pneumonia, but cannot rule out. Chest x-ray is unchanged. She may suspect leukocytosis due to steroids at the detention. Would obtain cultures, urinary antigens, strict isolation for resistant Acinetobacter with dedicated equipment. Mak for now. Will discuss with Pulmonary. Would consider a Carly. Further recommendations to follow. Cinthia [id number]
[2019-03-01] MEDS: CEFTRIAXONE 2 GM in DEXTROSE 5%-WATER 100 ML IVPB SCH (19:27)
[2019-03-01 20:26] LABS: BASO % 0.4 % (0-2.0); HEMATOCRIT 29.4 % (32.4-45.2); HEMOGLOBIN 9.3 GM/dL (10.7-15.3); LYMPH % 9.7 % (8-40); MCH 24.6 pg (25.7-33.7); MCHC 31.6 g/dl (32.0-36.0); MEAN CELL VOLUME 78.1 fl (80-96); MEAN PLT VOLUME 7.7 fl (7.5-11.1); MONO % 4.3 % (3.8-10.2); NEUT % 85.6 % (42.8-82.8); PLATELET COUNT 349 K/MM3 (134-434); RBC 3.76 M/mm3 (3.60-5.2); RDW 17.7 % (11.6-15.6); WHITE BLOOD COUNT 8.8 K/mm3 (4.0-10.0)
[2019-03-01 20:54] LABS: IRON SERUM 39 ug/dL (50-175); TOTAL IRON BINDING CAPACITY 394 ug/dL (250-450)
[2019-03-01 21:32] LABS: BILIRUBIN,TOTAL 0.3 mg/dL (0.2-1); CALCIUM 8.9 mg/dL (8.5-10.1); CREATININE 0.9 mg/dL (0.55-1.3); POTASSIUM 3.5 mmol/L (3.5-5.1); TOT PROT 6.9 g/dl (6.4-8.2)
[2019-03-01] MEDS ORDERED: INSULIN (NOVOLOG) ASPART 100 UNITS/ML 10ML VIAL SQ ONE (21:42)
[2019-03-01] MEDS: traZODone HCL 100 MG TABLET (FP) PO SCH (22:14)
[2019-03-01] MEDS: LORazepam 0.5 MG TABLET PO SCH (22:14)
[2019-03-01] MEDS: ATORVASTATIN CA 10 MG TABLET (FP) PO SCH (22:14)
[2019-03-01] MEDS: SENNOSIDES 8.6MG TABLET (FP) PO SCH (22:15)
[2019-03-02] MEDS: methylPREDNISolone NA SUCC 40 MG/1 ML VIAL IVPUSH SCH ×3 (02:45→17:41)
[2019-03-02] MEDS: SODIUM CHLORIDE 0.45% 1,000 ML IV SCH ×3 (05:12→20:35)
[2019-03-02] MEDS: FUROSEMIDE 40 MG TABLET (FP) PO SCH ×2 (06:15→14:58)
[2019-03-02] MEDS: traMADol HCL 50 MG TABLET PO SCH ×3 (06:15→21:34)
[2019-03-02] MEDS: GABAPENTIN 400 MG CAPSULE (FP) PO SCH ×3 (06:15→21:34)
[2019-03-02] MEDS: CYCLOBENZAPRINE HCL 10 MG TABLET (FP) PO SCH ×3 (06:16→21:35)
[2019-03-02] MEDS: hydrOXYzine HCL 25 MG TABLET (FP) PO SCH ×3 (06:16→21:36)
[2019-03-02] MEDS: INSULIN SLIDING SCALE (NOVOLOG) 1 VIAL SQ SCH ×2 (06:21→17:39)
[2019-03-02 07:32] LABS: BASO % 0.2 % (0-2.0); EOS % 0.1 % (0-4.5); HEMATOCRIT 29.6 % (32.4-45.2); HEMOGLOBIN 9.6 GM/dL (10.7-15.3); LYMPH % 11.9 % (8-40); MCH 25.1 pg (25.7-33.7); MCHC 32.3 g/dl (32.0-36.0); MEAN CELL VOLUME 77.6 fl (80-96); MEAN PLT VOLUME 7.5 fl (7.5-11.1); MONO % 3.5 % (3.8-10.2); NEUT % 84.3 % (42.8-82.8); PLATELET COUNT 346 K/MM3 (134-434); RBC 3.81 M/mm3 (3.60-5.2); RDW 17.4 % (11.6-15.6); WHITE BLOOD COUNT 8.2 K/mm3 (4.0-10.0)
[2019-03-02 08:03] LABS: BLOOD UREA NITROGEN 29.8 mg/dL (7-18); CREATININE 0.7 mg/dL (0.55-1.3)
[2019-03-02 08:04] LABS: ALBUMIN 3.2 g/dl (3.4-5.0); BILIRUBIN,TOTAL 0.5 mg/dL (0.2-1); CALCIUM 9.4 mg/dL (8.5-10.1); POTASSIUM 3.8 mmol/L (3.5-5.1); TOT PROT 7.4 g/dl (6.4-8.2)
[2019-03-02] MEDS ORDERED: DEXTROSE 5%-WATER 100 ML IVPB ONE (10:39)
[2019-03-02] MEDS: FERROUS SO4 325 MG TABLET (FP) PO SCH (10:48)
[2019-03-02] MEDS: PANTOPRAZOLE 40 MG TABLET (FP) PO SCH (10:48)
[2019-03-02] MEDS: APIXABAN 5 MG TABLET PO SCH ×2 (10:48→21:35)
[2019-03-02] MEDS: SIMETHICONE 80 MG TAB.CHEW (FP) PO SCH ×4 (10:48→21:37)
[2019-03-02] MEDS: ARIPiprazole 10 MG TABLET PO SCH (10:48)
[2019-03-02] MEDS: ESCITALOPRAM OXALATE 20 MG TABLET (FP) PO SCH (10:48)
[2019-03-02] MEDS: SPIRONOLACTONE 25 MG TABLET (FP) PO SCH (10:49)
[2019-03-02] MEDS: CEFTRIAXONE 2 GM in DEXTROSE 5%-WATER 100 ML IVPB SCH (10:49)
[2019-03-02] MEDS: POTASSIUM CHLORIDE TABS 20 MEQ TABLET.ER (FP) PO SCH (10:49)
[2019-03-02] MEDS: ASPIRIN 81 MG CHEWABLE TABLETS PO SCH (10:49)
--- NOTE | 2019-03-02 10:57 | PN ---
Progress Note, Physician Chief Complaint: Acute on chronic respiratory failure UTI COPD exacerbation History of Present Illness: NAD Seen by ID and Pulmonary Last CXR showed possible right infiltrative changes LA elevated, was getting IVF 1/2 NS at 100 ml/hr, however pt is on furosemide+ metolazone+spironolactone - Current Medication List Current Medications: Active Medications Acetaminophen (Tylenol -) 650 mg PO Q6H PRN PRN Reason: FEVER Albuterol/Ipratropium (Duoneb -) 1 amp NEB Q6H PRN PRN Reason: SHORTNESS OF BREATH Last Admin: 03/01/19 12:08 Dose: 1 amp Apixaban (Eliquis -) 5 mg PO BID [facility] Last Admin: 03/02/19 10:48 Dose: 5 mg Aripiprazole (Abilify) 10 mg PO DAILY [facility] Last Admin: 03/02/19 10:48 Dose: 10 mg Aspirin (Asa -) 81 mg PO DAILY [facility] Last Admin: 03/02/19 10:49 Dose: 81 mg Atorvastatin Calcium (Lipitor -) 10 mg PO HS [facility] Last Admin: 03/01/19 22:14 Dose: 10 mg Cyclobenzaprine HCl (Flexeril -) 10 mg PO TID [facility] Last Admin: 03/02/19 06:16 Dose: 10 mg Escitalopram Oxalate (Lexapro -) 20 mg PO DAILY [facility] Last Admin: 03/02/19 10:48 Dose: 20 mg Ferrous Sulfate (Feosol -) 325 mg PO DAILY [facility] Last Admin: 03/02/19 10:48 Dose: 325 mg Furosemide (Lasix -) 80 mg PO BIDLASIX [facility] Last Admin: 03/02/19 06:15 Dose: 80 mg Gabapentin (Neurontin -) 400 mg PO TID [facility] Last Admin: 03/02/19 06:15 Dose: 400 mg Hydroxyzine HCl (Atarax -) 25 mg PO TID [facility] Last Admin: 03/02/19 06:16 Dose: 25 mg Ceftriaxone Sodium 2 gm/ (Dextrose) 100 mls @ 200 mls/hr IVPB DAILY [facility]; Protocol Last Admin: 03/02/19 10:49 Dose: 200 mls/hr Sodium Chloride (1/2 Normal Saline) 1,000 mls @ 100 mls/hr IV ASDIR [facility] Last Admin: 03/02/19 05:12 Dose: 100 mls/hr Insulin Aspart (Novolog Vial Sliding Scale -) 1 vial SQ BIDAC [facility]; Protocol Last Admin: 03/02/19 06:21 Dose: 4 units Lorazepam (Ativan -) 0.5 mg PO [facility] Last Admin: 03/01/19 22:14 Dose: 0.5 mg Methylprednisolone Sodium Succinate (Solu-Medrol -) 40 mg IVPUSH Q8H-IV [facility] Last Admin: 03/02/19 10:48 Dose: 40 mg Metolazone (Zaroxolyn -) 2.5 mg PO DAILY@1330 [facility] Last Admin: 03/01/19 16:05 Dose: 2.5 mg Pantoprazole Sodium (Protonix -) 40 mg PO DAILY [facility] Last Admin: 03/02/19 10:48 Dose: 40 mg Potassium Chloride (K-Dur -) 40 meq PO DAILY [facility] Last Admin: 03/02/19 10:49 Dose: 40 meq Senna (Senna -) 2 tab PO [facility] Last Admin: 03/01/19 22:15 Dose: 2 tab Simethicone (Mylicon -) 80 mg PO QID [facility] Last Admin: 03/02/19 10:48 Dose: 80 mg Spironolactone (Aldactone -) 25 mg PO DAILY [facility] Last Admin: 03/02/19 10:49 Dose: 25 mg Tramadol HCl (Ultram -) 50 mg PO Q8H [facility] Last Admin: 03/02/19 06:15 Dose: 50 mg Trazodone HCl (Desyrel -) 100 mg PO [facility] Last Admin: 03/01/19 22:14 Dose: 100 mg - Objective Vital Signs: Vital Signs Temperature 97.8 F 03/02/19 10:46 Pulse Rate 69 03/02/19 10:46 Respiratory Rate 24 H 03/02/19 10:46 Blood Pressure 125/73 03/02/19 10:46 O2 Sat by Pulse Oximetry (%) 96 03/02/19 10:00 Constitutional: Yes: Well Nourished, No Distress, Calm, Obese Cardiovascular: Yes: Regular Rate and Rhythm Respiratory: Yes: Regular, Rhonchi (diffuse), Other (trach collar+ passy rolando) Gastrointestinal: Yes: WNL, Normal Bowel Sounds, Soft, Abdomen, Obese Genitourinary: Yes: Pete Present (refuses pete removal) Musculoskeletal: Yes: Muscle Weakness Extremities: Yes: WNL Edema: No Peripheral Pulses WNL: Yes Neurological: Yes: Alert, Oriented Psychiatric: Yes: Alert, Oriented Labs: CBC, BMP 03/02/19 07:00 03/02/19 07:00 INR, PTT INR 1.47 (0.83-1.09) H 02/28/19 15:07 Problem List - Problems (1) Acute on chronic respiratory failure with hypoxia and hypercapnia Assessment/Plan: -pulmonary consult -[facility] vent -IV abx -afebrile -CXR questionable infiltrates -On medrol tapering dose -bronchodilators -will have cardiology see pt as well due to pulmonary congestion -May use trach collar and passy rolando valve during the day Code(s): J96.21 - ACUTE AND CHRONIC RESPIRATORY FAILURE WITH HYPOXIA; J96.22 - ACUTE AND CHRONIC RESPIRATORY FAILURE WITH HYPERCAPNIA (2) COPD exacerbation Assessment/Plan: -pulmonary consult -[facility] vent -IV abx -afebrile -CXR questionable infiltrates -On medrol tapering dose -bronchodilators Code(s): J44.1 - CHRONIC OBSTRUCTIVE PULMONARY DISEASE W (ACUTE) EXACERBATION (3) Anemia Assessment/Plan: -chronic -Iron% low, already on Ferrous sulfate daily, will increase it to BID -thyroid, B 12-unremarkable -stool OB pending -monitor trend Code(s): D64.9 - ANEMIA, UNSPECIFIED (4) UTI (urinary tract infection) Assessment/Plan: -cultures: Microbiology 02/28/19 17:36 Urine - Urine - Catheterized Urine Culture - Preliminary Lactose Fermenting Neg Bacilli Non Lactose Fermenting Gnb -UA+ nitrites -On IV abx -ID on board -afebrile -pt refuses to d/c pete due to diuretics and large urinary output. Code(s): N39.0 - URINARY TRACT INFECTION, SITE NOT SPECIFIED Qualifiers: Urinary tract infection type: catheter-associated UTI Indwelling urinary catheter type: indwelling urethral catheter Encounter type: initial encounter Qualified Code(s): T83.511A - Infection and inflammatory reaction due to indwelling urethral catheter, initial encounter; N39.0 - Urinary tract infection , site not specified (5) Hyperglycemia Assessment/Plan: -2/2 to medrol -ISS -BGM AC HS -low calorie diabetic/low sodium diet Code(s): R73.9 - HYPERGLYCEMIA, UNSPECIFIED (6) Morbid obesity Assessment/Plan: -calorie controlled diet -RD consult Code(s): E66.01 - MORBID (SEVERE) OBESITY DUE TO EXCESS CALORIES (7) Lactic acidosis Assessment/Plan: -repeat LA pending -2/2 to UTI -Decrease IVF due to pulmonary congestion Code(s): E87.2 - ACIDOSIS Assessment/Plan see problem list
[2019-03-02] MEDS ORDERED: PT OWN MED DRAWER 7, Y5N ONE (12:51)
[2019-03-02] MEDS: METOLAZONE 2.5 MG TABLET (FP) PO SCH (13:05)
--- NOTE | 2019-03-02 14:06 | PN ---
Progress Note, Physician History of Present Illness: pulmonary alert,feeling better on trach collar,-resp distress - Current Medication List Current Medications: Active Medications Acetaminophen (Tylenol -) 650 mg PO Q6H PRN PRN Reason: FEVER Albuterol/Ipratropium (Duoneb -) 1 amp NEB Q6H PRN PRN Reason: SHORTNESS OF BREATH Last Admin: 03/01/19 12:08 Dose: 1 amp Apixaban (Eliquis -) 5 mg PO BID [facility] Last Admin: 03/02/19 10:48 Dose: 5 mg Aripiprazole (Abilify) 10 mg PO DAILY [facility] Last Admin: 03/02/19 10:48 Dose: 10 mg Aspirin (Asa -) 81 mg PO DAILY [facility] Last Admin: 03/02/19 10:49 Dose: 81 mg Atorvastatin Calcium (Lipitor -) 10 mg PO HS [facility] Last Admin: 03/01/19 22:14 Dose: 10 mg Cyclobenzaprine HCl (Flexeril -) 10 mg PO TID [facility] Last Admin: 03/02/19 06:16 Dose: 10 mg Escitalopram Oxalate (Lexapro -) 20 mg PO DAILY [facility] Last Admin: 03/02/19 10:48 Dose: 20 mg Ferrous Sulfate (Feosol -) 325 mg PO DAILY [facility] Last Admin: 03/02/19 10:48 Dose: 325 mg Furosemide (Lasix -) 80 mg PO BIDLASIX [facility] Last Admin: 03/02/19 06:15 Dose: 80 mg Gabapentin (Neurontin -) 400 mg PO TID [facility] Last Admin: 03/02/19 06:15 Dose: 400 mg Hydroxyzine HCl (Atarax -) 25 mg PO TID [facility] Last Admin: 03/02/19 06:16 Dose: 25 mg Ceftriaxone Sodium 2 gm/ (Dextrose) 100 mls @ 200 mls/hr IVPB DAILY [facility]; Protocol Last Admin: 03/02/19 10:49 Dose: 200 mls/hr Sodium Chloride (1/2 Normal Saline) 1,000 mls @ 100 mls/hr IV ASDIR [facility] Last Admin: 03/02/19 05:12 Dose: 100 mls/hr Insulin Aspart (Novolog Vial Sliding Scale -) 1 vial SQ BIDAC [facility]; Protocol Last Admin: 03/02/19 06:21 Dose: 4 units Lorazepam (Ativan -) 0.5 mg PO HS [facility] Last Admin: 03/01/19 22:14 Dose: 0.5 mg Methylprednisolone Sodium Succinate (Solu-Medrol -) 40 mg IVPUSH Q8H-IV [facility] Last Admin: 03/02/19 10:48 Dose: 40 mg Metolazone (Zaroxolyn -) 2.5 mg PO DAILY@1330 [facility] Last Admin: 03/02/19 13:05 Dose: 2.5 mg Pantoprazole Sodium (Protonix -) 40 mg PO DAILY [facility] Last Admin: 03/02/19 10:48 Dose: 40 mg Potassium Chloride (K-Dur -) 40 meq PO DAILY [facility] Last Admin: 03/02/19 10:49 Dose: 40 meq Senna (Senna -) 2 tab PO HS [facility] Last Admin: 03/01/19 22:15 Dose: 2 tab Simethicone (Mylicon -) 80 mg PO QID [facility] Last Admin: 03/02/19 10:48 Dose: 80 mg Spironolactone (Aldactone -) 25 mg PO DAILY [facility] Last Admin: 03/02/19 10:49 Dose: 25 mg Tramadol HCl (Ultram -) 50 mg PO Q8H [facility] Last Admin: 03/02/19 13:05 Dose: 50 mg Trazodone HCl (Desyrel -) 100 mg PO HS [facility] Last Admin: 03/01/19 22:14 Dose: 100 mg - Objective Vital Signs: Vital Signs Temperature 98 F 03/02/19 13:03 Pulse Rate 74 03/02/19 13:03 Respiratory Rate 24 H 03/02/19 13:03 Blood Pressure 114/62 03/02/19 13:03 O2 Sat by Pulse Oximetry (%) 96 03/02/19 10:00 Constitutional: Yes: Calm, Obese Eyes: Yes: WNL HENT: Yes: WNL Neck: Yes: Supple (trach) Cardiovascular: Yes: Regular Rate and Rhythm, S1, S2 Respiratory: Yes: Diminished Gastrointestinal: Yes: Normal Bowel Sounds, Soft Extremities: Yes: WNL Edema: No Labs: CBC, BMP 03/02/19 07:00 03/02/19 07:00 INR, PTT INR 1.47 (0.83-1.09) H 02/28/19 15:07 Problem List - Problems (1) Acute on chronic respiratory failure with hypoxia and hypercapnia Code(s): J96.21 - ACUTE AND CHRONIC RESPIRATORY FAILURE WITH HYPOXIA; J96.22 - ACUTE AND CHRONIC RESPIRATORY FAILURE WITH HYPERCAPNIA (2) Anemia Code(s): D64.9 - ANEMIA, UNSPECIFIED (3) Bipolar 1 disorder, depressed Code(s): F31.9 - BIPOLAR DISORDER, UNSPECIFIED (4) COPD exacerbation Code(s): J44.1 - CHRONIC OBSTRUCTIVE PULMONARY DISEASE W (ACUTE) EXACERBATION (5) Pneumonia Code(s): J18.9 - PNEUMONIA, UNSPECIFIED ORGANISM Qualifiers: Pneumonia type: due to unspecified organism Laterality: right Lung location: lower lobe of lung Qualified Code(s): J18.1 - Lobar pneumonia, unspecified organism (6) COPD exacerbation Code(s): J44.1 - CHRONIC OBSTRUCTIVE PULMONARY DISEASE W (ACUTE) EXACERBATION (7) Morbid obesity Code(s): E66.01 - MORBID (SEVERE) OBESITY DUE TO EXCESS CALORIES (8) Tracheostomy dependence Code(s): Z93.0 - TRACHEOSTOMY STATUS (9) GERD (gastroesophageal reflux disease) Code(s): K21.9 - GASTRO-ESOPHAGEAL REFLUX DISEASE WITHOUT ESOPHAGITIS (10) HLD (hyperlipidemia) Code(s): E78.5 - HYPERLIPIDEMIA, UNSPECIFIED (11) Hypothyroid Code(s): E03.9 - HYPOTHYROIDISM, UNSPECIFIED Assessment/Plan IMP ACUTE ON CHRONIC HYPOXEMIC/HYPERCAPNEIC RESPIRATORY FAILURE ADVANCED COPD WITH ACUTE EXACERBATION CHF ? PNEUMONIA MORBID OBESITY ANEMIA ELEVATED LACTATE LEVEL HYPOTHYROID HLD PLAN VENT SUPPORT ON AC MODE AT NIGHT AND PRN FOR INCREASED RESP DISTRESS TRACH COLLAR TOLERATE ABX PER ID LASIX MEDROL TAPER F/U CHEST X-RAYS STRICT I+OS TREND LACTATE DR STEELE Problem List - Problems (1) Acute on chronic respiratory failure with hypoxia and hypercapnia Code(s): J96.21 - ACUTE AND CHRONIC RESPIRATORY FAILURE WITH HYPOXIA; J96.22 - ACUTE AND CHRONIC RESPIRATORY FAILURE WITH HYPERCAPNIA (2) Anemia Code(s): D64.9 - ANEMIA, UNSPECIFIED (3) Bipolar 1 disorder, depressed Code(s): F31.9 - BIPOLAR DISORDER, UNSPECIFIED (4) COPD exacerbation Code(s): J44.1 - CHRONIC OBSTRUCTIVE PULMONARY DISEASE W (ACUTE) EXACERBATION (5) Pneumonia Code(s): J18.9 - PNEUMONIA, UNSPECIFIED ORGANISM Qualifiers: Pneumonia type: due to unspecified organism Laterality: right Lung location: lower lobe of lung Qualified Code(s): J18.1 - Lobar pneumonia, unspecified organism (6) COPD exacerbation Code(s): J44.1 - CHRONIC OBSTRUCTIVE PULMONARY DISEASE W (ACUTE) EXACERBATION (7) Morbid obesity Code(s): E66.01 - MORBID (SEVERE) OBESITY DUE TO EXCESS CALORIES (8) Tracheostomy dependence Code(s): Z93.0 - TRACHEOSTOMY STATUS (9) GERD (gastroesophageal reflux disease) Code(s): K21.9 - GASTRO-ESOPHAGEAL REFLUX DISEASE WITHOUT ESOPHAGITIS (10) HLD (hyperlipidemia) Code(s): E78.5 - HYPERLIPIDEMIA, UNSPECIFIED (11) Hypothyroid Code(s): E03.9 - HYPOTHYROIDISM, UNSPECIFIED
[2019-03-02 14:08] VITALS: BMI 78.5
--- NOTE | 2019-03-02 15:08 | CON.CARD ---
Consult Consult Specialty:: cardiology Referred by:: dr. Tomlinson Reason for Consultation:: chf - History of Present Illness Chief Complaint: sob History of Present Illness: 53 year old female with a PMH of a long prior history of smoking, tracheostomy about a year ago, dCHF, chronic hypercapnia, hypoxic respiratory failure, COPD, prior PNA, venous thromboembolism (on Eliquis), HLD, morbid obesity, and hypothyroidism, and extensive psychiatric history, admitted sob. pt seen and examined today in nad. states she is feeling better, still sob and coughing. states her edema is improved from prior admissions. no change in her chronic intermittent atypical chest pain - History Source History Provided By: Patient, Medical Record Limitations to Obtaining History: No Limitations - Past Medical History Pulmonary: Yes: COPD, O2 Dependent, Pneumonia Gastrointestinal: Yes: Other (colon polyps) Psych: Yes: Bipolar Endocrine: Yes: Diabetes Mellitus - Alcohol/Substance Use Hx Alcohol Use: No History of Substance Use: reports: Marijuana - Smoking History Smoking history: Former smoker Have you smoked in the past 12 months: No Aproximately how many cigarettes per day: 5 If you are a former smoker, when did you quit?: 2017 - Social History Usual Living Arrangement: Senior Care ADL: Support Services Occupation: disabled History of Recent Travel: No Home Medications - Allergies Allergies/Adverse Reactions: Allergies Allergy/AdvReac Type Severity Reaction Status Date / Time No Known Allergies Allergy Verified 11/07/18 20:14 - Home Medications Home Medications: Ambulatory Orders Acetaminophen [Pain Reliever] 1,000 mg PO QID 02/28/19 Acetylcysteine 100 mg IH TID 02/28/19 Apixaban [Eliquis] 5 mg PO BID 02/28/19 Aripiprazole 10 mg PO DAILY 02/28/19 Aspirin 81 mg PO DAILY 02/28/19 Cyclobenzaprine HCl [Flexeril 10 mg] 10 mg PO TID 02/28/19 Escitalopram Oxalate [Lexapro -] 20 mg PO DAILY 02/28/19 Ferrous Sulfate 325 mg PO DAILY 02/28/19 Furosemide 80 mg PO BID 02/28/19 Gabapentin 400 mg PO TID 02/28/19 Hydroxyzine Pamoate 25 mg PO TID 02/28/19 Lorazepam 0.5 mg PO HS 02/28/19 Magnesium Oxide 800 mg PO TID 02/28/19 Metolazone [Zaroxolyn -] 2.5 mg PO DAILY 02/28/19 Montelukast Sodium [Singulair] 10 mg PO HS 02/28/19 Multivitamins [Tab-A-Vit -] 1 tab PO DAILY 02/28/19 Pantoprazole Sodium 40 mg PO 02/28/19 Potassium Chloride 20 meq PO QID 02/28/19 Pravastatin Sodium [Pravachol (Nf)] 20 mg PO HS 02/28/19 Prednisone [Deltasone] 20 mg PO DAILY 02/28/19 Pulmicort 0.5 mg Nebulizer - 2 ml IH TID 02/28/19 Sennosides [Senna] 2 tab PO HS 02/28/19 Silver Sulfadiazine 1% Top Cr [Silvadene -] 1 applic TP BID 02/28/19 Simethicone 80 mg PO QID 02/28/19 Spironolactone [Aldactone] 25 mg PO DAILY 02/28/19 Zinc Oxide 20% Topical Oint 1 applic TP BID 02/28/19 traMADol HCL [Ultram] 50 mg PO Q8H 02/28/19 traZODone HCL [Trazodone HCl] 100 mg PO HS 02/28/19 Family Disease History - Family Disease History Family Disease History: Other: Father (: PNA), Mother (: COPD ) Review of Systems - Review of Systems Constitutional: reports: No Symptoms. denies: Chills, Diaphoresis, Fever, Lethargy, Loss of Appetite, Malaise, Night Sweats, Unintentional Wgt. Loss, Weakness, Other Eyes: denies: No Symptoms, Blind Spots, Blurred Vision, Double Vision, Eye Pain , Floaters, Photophobia, Recent Change in Vision, Other HENT: denies: No Symptoms, Difficult Swallowing, Ear Discharge, Ear Pain, Epistaxis, Gingival Bleeding, Hearing Loss, Mouth Swelling, Nasal Congestion, Ocular Prosthesis, Throat Pain, Toothache, Ringing in Ears, Other Neck: denies: No Symptoms, Decreased ROM, Lumps, Pain on Movement, Stiffness, Swollen Glands, Tenderness, Other Cardiovascular: reports: Edema, Shortness of Breath. denies: No Symptoms, Chest Pain, Palpitations, Other Respiratory: reports: Cough, Exercise Intolerance, Orthopnea, SOB, SOB on Exertion, Wheezing. denies: No Symptoms, Hemoptysis, PND, Snoring, Other Gastrointestinal: denies: No Symptoms, Abdominal Pain, Bloating, Constipation, Diarrhea, Dysphagia, Indigestion, Melena, Nausea, Rectal Bleeding, Vomiting, Vomiting Blood, Other Genitourinary: denies: No Symptoms, Burning, Discharge, Dysuria, Flank Pain, Frequency, Hematuria, Incontinence, Lesions, Menses, Pain, Testicular Mass, Testicular Pain, Testicular Swelling, Urgency, Vaginal Bleeding, Other Breasts: denies: No Symptoms Reported, See HPI, Breast Implants, Discharge from Nipple, Lumps, Pain, Skin Changes, Other Musculoskeletal: denies: No Symptoms, Back Pain, Crepitus, Decreased ROM, Extremity Pain, Joint Pain, Joint Swelling, Muscle Pain, Muscle Cramps, Muscle Weakness, Other Integumentary: denies: No Symptoms, Blister, Bruising, Change in Color, Eczema, Erythema, Incision, Lesions, Lump, Pallor, Pruritis, Rash, Wound, Other Neurological: denies: No Symptoms, Change in LOC, Change in Speech, Confusion, Dizziness, Headache, Incoordination, Numbness, Parasthesia, Pre-Existing Deficit , Seizure, Syncope, Tremors, Unsteady Gait, Weakness, Other Endocrine: denies: No Symptoms, Excessive Sweating, Flushing, Increased Hunger, Increased Thirst, Intolerance to Cold, Intolerance to Heat, Unexplained Weight Gain, Unexplained Weight Loss, Other Hematology/Lymphatic: denies: No Symptoms, Easily Bruised, Excessive Bleeding, Swollen Glands, Other Psychiatric: denies: No Symptoms, Altered Sleep Pattern, Anxiety, Depression, Hallucinations, Panic, Paranoia, Suicidal, Other - Risk Factors Known Risk Factors: Yes: Physical Inactivity Vital Signs: Vital Signs Temperature 98 F 03/02/19 13:03 Pulse Rate 70 03/02/19 14:55 Respiratory Rate 24 H 03/02/19 14:55 Blood Pressure 147/58 L 03/02/19 14:55 O2 Sat by Pulse Oximetry (%) 96 03/02/19 10:00 Constitutional: Yes: No Distress, Calm, Obese Eyes: Yes: Conjunctiva Clear, EOM Intact, PERRL Respiratory: Yes: Regular, Diminished, Rhonchi, Wheezes. No: SOB Gastrointestinal: Yes: Normal Bowel Sounds Cardiovascular: Yes: Regular Rate and Rhythm. No: Bradycardia, Tachycardia, Pulse Irregular, Gallop, Rub, Varicosities JVD: No Carotid Bruit: No PMI: Non-Displaced Heart Sounds: Yes: S1, S2. No: Split S2, S3, S4, Clicks, Gallop Murmur: No: Systolic Murmur Edema: Yes Edema: LLE: Trace, RLE: Trace Peripheral Pulses WNL: Yes Neurological: Yes: Alert, Oriented Psychiatric: Yes: Alert, Oriented - Other Data Labs, Other Data: CBC, BMP 03/02/19 07:00 03/02/19 07:00 INR, PTT INR 1.47 (0.83-1.09) H 02/28/19 15:07 Troponin, BNP 03/02/19 12:25 Troponin I < 0.02 Troponin, BNP 03/02/19 12:25 Troponin I < 0.02 ekg-nsr 78bpm Echo: Report Reviewed Imaging - Results Chest X-ray: Report Reviewed, Image Reviewed EKG: Report Reviewed, Image Reviewed Other: Report Reviewed, Image Reviewed Assessment/Plan SOB-acute on chronic respiratory failure, s/p trach, AE COPD, chronic diastolic CHF Echocardiogarm 11/08/18 TDS study EF 55-60% -developed pulm edema after fluid resuscitation -would cont current po Lasix regimen -hold IVF if possible -monitor strict I/os and daily weights, Keep O >I -monitor bun/creat, electrolytes and replete as needed -consider change to Torsemide PO 100 mg as an outpatient instead of PO Lasix because Torsemide has superior absorption as compared to Lasix. -cont metolazone
--- NOTE | 2019-03-02 17:03 | PN ---
Progress Note (short form) - Note Progress Note: feels great slept well on trach collar Vital Signs Period Temp Pulse Resp BP Sys/Petersen Pulse Ox Last 24 Hr 97.7 F-98.5 F 51-74 14-26 114-147/58-84 96-97 cor-rrr lungs decreased bs at bases abd soft ext trace edema CBC, BMP 03/02/19 07:00 03/02/19 07:00 Microbiology 03/01/19 16:00 Sputum - Endotrachea Suction/Ventilator Gram Stain - Final 03/01/19 13:45 Urine For Antigen Detection Legionella Antigen - Final 03/01/19 13:45 Urine For Antigen Detection Streptococcus pneumoniae Antigen (M - Final 02/28/19 17:36 Urine - Urine - Catheterized Urine Culture - Preliminary Lactose Fermenting Neg Bacilli Non Lactose Fermenting Gnb a/p acute on chronic respiratory failure suspect COPD exacerbation cannot r/o component of CHF doubt pneumonia-but cannot rule out-cxray unchanged, suspect leukocytosis is due to steroids at [place] continue rocephin suspect urine culture is colonization- ua is negative and she is asymptomatic strict contact isolation for acinetobacter- dedicated equipment consider d/c pete Problem List - Problems (1) Acute on chronic respiratory failure with hypoxia and hypercapnia Code(s): J96.21 - ACUTE AND CHRONIC RESPIRATORY FAILURE WITH HYPOXIA; J96.22 - ACUTE AND CHRONIC RESPIRATORY FAILURE WITH HYPERCAPNIA (2) COPD exacerbation Code(s): J44.1 - CHRONIC OBSTRUCTIVE PULMONARY DISEASE W (ACUTE) EXACERBATION (3) CHF (congestive heart failure) Code(s): I50.9 - HEART FAILURE, UNSPECIFIED (4) Pneumonia Code(s): J18.9 - PNEUMONIA, UNSPECIFIED ORGANISM Qualifiers: Pneumonia type: due to unspecified organism Laterality: right Lung location: lower lobe of lung Qualified Code(s): J18.1 - Lobar pneumonia, unspecified organism (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
[2019-03-02] MEDS ORDERED: INSULIN (NOVOLOG) ASPART 100 UNITS/ML 10ML VIAL ONE (17:37)
[2019-03-02] MEDS: traZODone HCL 100 MG TABLET (FP) PO SCH (21:34)
[2019-03-02] MEDS: ATORVASTATIN CA 10 MG TABLET (FP) PO SCH (21:35)
[2019-03-02] MEDS: LORazepam 0.5 MG TABLET PO SCH (21:36)
[2019-03-02] MEDS: SENNOSIDES 8.6MG TABLET (FP) PO SCH (21:39)
[2019-03-03] MEDS: methylPREDNISolone NA SUCC 40 MG/1 ML VIAL IVPUSH SCH ×3 (02:49→23:08)
[2019-03-03] MEDS: FUROSEMIDE 40 MG TABLET (FP) PO SCH ×2 (06:47→14:20)
[2019-03-03] MEDS: CYCLOBENZAPRINE HCL 10 MG TABLET (FP) PO SCH ×3 (06:47→23:08)
[2019-03-03] MEDS: GABAPENTIN 400 MG CAPSULE (FP) PO SCH ×3 (06:48→23:08)
[2019-03-03] MEDS: hydrOXYzine HCL 25 MG TABLET (FP) PO SCH ×3 (06:49→23:09)
[2019-03-03] MEDS: traMADol HCL 50 MG TABLET PO SCH ×3 (06:49→23:08)
[2019-03-03] MEDS: INSULIN SLIDING SCALE (NOVOLOG) 1 VIAL SQ SCH ×2 (06:51→17:30)
[2019-03-03 08:48] LABS: BASO % 0.1 % (0-2.0); HEMATOCRIT 33.3 % (32.4-45.2); HEMOGLOBIN 10.5 GM/dL (10.7-15.3); MCH 24.7 pg (25.7-33.7); MCHC 31.6 g/dl (32.0-36.0); MEAN CELL VOLUME 78.2 fl (80-96); MEAN PLT VOLUME 7.4 fl (7.5-11.1); MONO % 3.1 % (3.8-10.2); NEUT % 84.8 % (42.8-82.8); PLATELET COUNT 398 K/MM3 (134-434); RBC 4.26 M/mm3 (3.60-5.2); RDW 17.3 % (11.6-15.6); WHITE BLOOD COUNT 8.2 K/mm3 (4.0-10.0)
[2019-03-03 09:24] LABS: ALBUMIN 3.4 g/dl (3.4-5.0); BILIRUBIN,TOTAL 0.3 mg/dL (0.2-1); BLOOD UREA NITROGEN 34.2 mg/dL (7-18); CALCIUM 9.5 mg/dL (8.5-10.1); CREATININE 0.8 mg/dL (0.55-1.3); POTASSIUM 4.2 mmol/L (3.5-5.1); TOT PROT 7.6 g/dl (6.4-8.2)
[2019-03-03] MEDS ORDERED: DEXTROSE 5%-WATER 100 ML IVPB ONE (11:23)
[2019-03-03] MEDS: ASPIRIN 81 MG CHEWABLE TABLETS PO SCH (11:30)
[2019-03-03] MEDS: CEFTRIAXONE 2 GM in DEXTROSE 5%-WATER 100 ML IVPB SCH (11:30)
[2019-03-03] MEDS: APIXABAN 5 MG TABLET PO SCH ×2 (11:30→23:09)
[2019-03-03] MEDS: POTASSIUM CHLORIDE TABS 20 MEQ TABLET.ER (FP) PO SCH (11:30)
[2019-03-03] MEDS: ARIPiprazole 10 MG TABLET PO SCH (11:31)
[2019-03-03] MEDS: PANTOPRAZOLE 40 MG TABLET (FP) PO SCH (11:31)
[2019-03-03] MEDS: FERROUS SO4 325 MG TABLET (FP) PO SCH (11:31)
[2019-03-03] MEDS: ESCITALOPRAM OXALATE 20 MG TABLET (FP) PO SCH (11:32)
[2019-03-03] MEDS: SPIRONOLACTONE 25 MG TABLET (FP) PO SCH (11:32)
[2019-03-03] MEDS: SIMETHICONE 80 MG TAB.CHEW (FP) PO SCH ×4 (11:37→23:09)
--- NOTE | 2019-03-03 11:44 | PN ---
Progress Note, Physician Chief Complaint: patient does not want pete cath removed till she is dicharged feeling good wants to go home on iv abx - Current Medication List Current Medications: Active Medications Acetaminophen (Tylenol -) 650 mg PO Q6H PRN PRN Reason: FEVER Albuterol/Ipratropium (Duoneb -) 1 amp NEB Q6H PRN PRN Reason: SHORTNESS OF BREATH Last Admin: 03/01/19 12:08 Dose: 1 amp Apixaban (Eliquis -) 5 mg PO BID [facility] Last Admin: 03/03/19 11:30 Dose: 5 mg Aripiprazole (Abilify) 10 mg PO DAILY [facility] Last Admin: 03/03/19 11:31 Dose: 10 mg Aspirin (Asa -) 81 mg PO DAILY [facility] Last Admin: 03/03/19 11:30 Dose: 81 mg Atorvastatin Calcium (Lipitor -) 10 mg PO HS [facility] Last Admin: 03/02/19 21:35 Dose: 10 mg Cyclobenzaprine HCl (Flexeril -) 10 mg PO TID [facility] Last Admin: 03/03/19 06:47 Dose: 10 mg Escitalopram Oxalate (Lexapro -) 20 mg PO DAILY [facility] Last Admin: 03/03/19 11:32 Dose: 20 mg Ferrous Sulfate (Feosol -) 325 mg PO DAILY [facility] Last Admin: 03/03/19 11:31 Dose: 325 mg Furosemide (Lasix -) 80 mg PO BIDLASIX [facility] Last Admin: 03/03/19 06:47 Dose: 80 mg Gabapentin (Neurontin -) 400 mg PO TID [facility] Last Admin: 03/03/19 06:48 Dose: 400 mg Hydroxyzine HCl (Atarax -) 25 mg PO TID [facility] Last Admin: 03/03/19 06:49 Dose: 25 mg Ceftriaxone Sodium 2 gm/ (Dextrose) 100 mls @ 200 mls/hr IVPB DAILY [facility]; Protocol Last Admin: 03/03/19 11:30 Dose: 200 mls/hr Sodium Chloride (1/2 Normal Saline) 1,000 mls @ 50 mls/hr IV ASDIR [facility] Last Admin: 03/02/19 20:35 Dose: 50 mls/hr Insulin Aspart (Novolog Vial Sliding Scale -) 1 vial SQ BIDAC [facility]; Protocol Last Admin: 03/03/19 06:51 Dose: 2 units Lorazepam (Ativan -) 0.5 mg PO HS [facility] Last Admin: 03/02/19 21:36 Dose: 0.5 mg Methylprednisolone Sodium Succinate (Solu-Medrol -) 40 mg IVPUSH Q8H-IV [facility] Last Admin: 03/03/19 11:37 Dose: 40 mg Metolazone (Zaroxolyn -) 2.5 mg PO DAILY@1330 [facility] Last Admin: 03/02/19 13:05 Dose: 2.5 mg Pantoprazole Sodium (Protonix -) 40 mg PO DAILY [facility] Last Admin: 03/03/19 11:31 Dose: 40 mg Potassium Chloride (K-Dur -) 40 meq PO DAILY [facility] Last Admin: 03/03/19 11:30 Dose: 40 meq Senna (Senna -) 2 tab PO HS [facility] Last Admin: 03/02/19 21:39 Dose: 2 tab Simethicone (Mylicon -) 80 mg PO QID [facility] Last Admin: 03/03/19 11:37 Dose: 80 mg Spironolactone (Aldactone -) 25 mg PO DAILY [facility] Last Admin: 03/03/19 11:32 Dose: 25 mg Tramadol HCl (Ultram -) 50 mg PO Q8H [facility] Last Admin: 03/03/19 06:49 Dose: 50 mg Trazodone HCl (Desyrel -) 100 mg PO [facility] Last Admin: 03/02/19 21:34 Dose: 100 mg - Objective Vital Signs: Vital Signs Temperature 98.7 F 03/03/19 06:00 Pulse Rate 67 03/03/19 09:30 Respiratory Rate 24 H 03/03/19 06:30 Blood Pressure 142/78 03/03/19 06:00 O2 Sat by Pulse Oximetry (%) 94 L 03/03/19 09:30 Constitutional: Yes: Calm Neck: Yes: Other (trach) Cardiovascular: Yes: Regular Rate and Rhythm, S1, S2 Respiratory: Yes: Diminished, Other (trach collar) Gastrointestinal: Yes: Normal Bowel Sounds, Soft Edema: Yes Neurological: Yes: Alert, Oriented Labs: CBC, BMP 03/03/19 08:15 03/03/19 08:15 INR, PTT INR 1.47 (0.83-1.09) H 02/28/19 15:07 Problem List - Problems (1) Acute on chronic respiratory failure with hypoxia and hypercapnia Assessment/Plan: lasix bid with zaroxlyn to change to po torsemide 100mg po daily on discharge medrol taper to bid Code(s): J96.21 - ACUTE AND CHRONIC RESPIRATORY FAILURE WITH HYPOXIA; J96.22 - ACUTE AND CHRONIC RESPIRATORY FAILURE WITH HYPERCAPNIA (2) Leukocytosis Assessment/Plan: improving on rocephin Microbiology 03/01/19 16:00 Sputum - Endotrachea Suction/Ventilator Gram Stain - Final 03/01/19 16:00 Sputum - Endotrachea Suction/Ventilator Sputum Culture - Preliminary Lactose Fermenting Neg Bacilli Non Lactose Fermenting Gnb 02/28/19 17:36 Urine - Urine - Catheterized Urine Culture - Preliminary Lactose Fermenting Neg Bacilli Non Lactose Fermenting Gnb Code(s): D72.829 - ELEVATED WHITE BLOOD CELL COUNT, UNSPECIFIED (3) Thromboembolism Assessment/Plan: 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
--- NOTE | 2019-03-03 12:51 | PN ---
Progress Note, Physician History of Present Illness: PULMONARY ALERT,FEELING BETTER ON TRACH COLLAR,-SOB - Current Medication List Current Medications: Active Medications Acetaminophen (Tylenol -) 650 mg PO Q6H PRN PRN Reason: FEVER Albuterol/Ipratropium (Duoneb -) 1 amp NEB Q6H PRN PRN Reason: SHORTNESS OF BREATH Last Admin: 03/01/19 12:08 Dose: 1 amp Apixaban (Eliquis -) 5 mg PO BID [facility] Last Admin: 03/03/19 11:30 Dose: 5 mg Aripiprazole (Abilify) 10 mg PO DAILY [facility] Last Admin: 03/03/19 11:31 Dose: 10 mg Aspirin (Asa -) 81 mg PO DAILY [facility] Last Admin: 03/03/19 11:30 Dose: 81 mg Atorvastatin Calcium (Lipitor -) 10 mg PO HS [facility] Last Admin: 03/02/19 21:35 Dose: 10 mg Cyclobenzaprine HCl (Flexeril -) 10 mg PO TID [facility] Last Admin: 03/03/19 06:47 Dose: 10 mg Escitalopram Oxalate (Lexapro -) 20 mg PO DAILY [facility] Last Admin: 03/03/19 11:32 Dose: 20 mg Ferrous Sulfate (Feosol -) 325 mg PO DAILY [facility] Last Admin: 03/03/19 11:31 Dose: 325 mg Furosemide (Lasix -) 80 mg PO BIDLASIX [facility] Last Admin: 03/03/19 06:47 Dose: 80 mg Gabapentin (Neurontin -) 400 mg PO TID [facility] Last Admin: 03/03/19 06:48 Dose: 400 mg Hydroxyzine HCl (Atarax -) 25 mg PO TID [facility] Last Admin: 03/03/19 06:49 Dose: 25 mg Ceftriaxone Sodium 2 gm/ (Dextrose) 100 mls @ 200 mls/hr IVPB DAILY [facility]; Protocol Last Admin: 03/03/19 11:30 Dose: 200 mls/hr Sodium Chloride (1/2 Normal Saline) 1,000 mls @ 50 mls/hr IV ASDIR [facility] Last Admin: 03/02/19 20:35 Dose: 50 mls/hr Insulin Aspart (Novolog Vial Sliding Scale -) 1 vial SQ BIDAC [facility]; Protocol Last Admin: 03/03/19 06:51 Dose: 2 units Lorazepam (Ativan -) 0.5 mg PO HS [facility] Last Admin: 03/02/19 21:36 Dose: 0.5 mg Methylprednisolone Sodium Succinate (Solu-Medrol -) 40 mg IVPUSH BID [facility] Metolazone (Zaroxolyn -) 2.5 mg PO DAILY@1330 [facility] Last Admin: 03/02/19 13:05 Dose: 2.5 mg Pantoprazole Sodium (Protonix -) 40 mg PO DAILY [facility] Last Admin: 03/03/19 11:31 Dose: 40 mg Potassium Chloride (K-Dur -) 40 meq PO DAILY [facility] Last Admin: 03/03/19 11:30 Dose: 40 meq Senna (Senna -) 2 tab PO HS [facility] Last Admin: 03/02/19 21:39 Dose: 2 tab Simethicone (Mylicon -) 80 mg PO QID [facility] Last Admin: 03/03/19 11:37 Dose: 80 mg Spironolactone (Aldactone -) 25 mg PO DAILY [facility] Last Admin: 03/03/19 11:32 Dose: 25 mg Tramadol HCl (Ultram -) 50 mg PO Q8H [facility] Last Admin: 03/03/19 06:49 Dose: 50 mg Trazodone HCl (Desyrel -) 100 mg PO HS [facility] Last Admin: 03/02/19 21:34 Dose: 100 mg - Objective Vital Signs: Vital Signs Temperature 98.3 F 03/03/19 10:00 Pulse Rate 63 03/03/19 10:00 Respiratory Rate 18 03/03/19 10:00 Blood Pressure 143/71 03/03/19 10:00 O2 Sat by Pulse Oximetry (%) 94 L 03/03/19 09:30 Constitutional: Yes: Calm, Obese Eyes: Yes: WNL HENT: Yes: WNL Neck: Yes: Supple (TRACH) Cardiovascular: Yes: Regular Rate and Rhythm, S1, S2 Respiratory: Yes: Rhonchi (FEW RHONCHI) Gastrointestinal: Yes: Normal Bowel Sounds, Soft Extremities: Yes: WNL Edema: No Labs: CBC, BMP 03/03/19 08:15 03/03/19 08:15 INR, PTT INR 1.47 (0.83-1.09) H 02/28/19 15:07 Problem List - Problems (1) Acute on chronic respiratory failure with hypoxia and hypercapnia Code(s): J96.21 - ACUTE AND CHRONIC RESPIRATORY FAILURE WITH HYPOXIA; J96.22 - ACUTE AND CHRONIC RESPIRATORY FAILURE WITH HYPERCAPNIA (2) Anemia Code(s): D64.9 - ANEMIA, UNSPECIFIED (3) Bipolar 1 disorder, depressed Code(s): F31.9 - BIPOLAR DISORDER, UNSPECIFIED (4) COPD exacerbation Code(s): J44.1 - CHRONIC OBSTRUCTIVE PULMONARY DISEASE W (ACUTE) EXACERBATION (5) Pneumonia Code(s): J18.9 - PNEUMONIA, UNSPECIFIED ORGANISM Qualifiers: Pneumonia type: due to unspecified organism Laterality: right Lung location: lower lobe of lung Qualified Code(s): J18.1 - Lobar pneumonia, unspecified organism (6) COPD exacerbation Code(s): J44.1 - CHRONIC OBSTRUCTIVE PULMONARY DISEASE W (ACUTE) EXACERBATION (7) Morbid obesity Code(s): E66.01 - MORBID (SEVERE) OBESITY DUE TO EXCESS CALORIES (8) Tracheostomy dependence Code(s): Z93.0 - TRACHEOSTOMY STATUS (9) GERD (gastroesophageal reflux disease) Code(s): K21.9 - GASTRO-ESOPHAGEAL REFLUX DISEASE WITHOUT ESOPHAGITIS (10) HLD (hyperlipidemia) Code(s): E78.5 - HYPERLIPIDEMIA, UNSPECIFIED (11) Hypothyroid Code(s): E03.9 - HYPOTHYROIDISM, UNSPECIFIED Assessment/Plan IMP ACUTE ON CHRONIC HYPOXEMIC/HYPERCAPNEIC RESPIRATORY FAILURE ADVANCED COPD WITH ACUTE EXACERBATION IMPROVING CHF ? PNEUMONIA MORBID OBESITY ANEMIA ELEVATED LACTATE LEVEL TRENDING DOWN HYPOTHYROID HLD PLAN VENT SUPPORT ON AC MODE AT NIGHT AND PRN FOR INCREASED RESP DISTRESS TRACH COLLAR TOLERATE ABX PER ID LASIX MEDROL TAPER F/U CHEST X-RAYS STRICT I+OS TREND LACTATE DR STEELE Problem List - Problems (1) Acute on chronic respiratory failure with hypoxia and hypercapnia Code(s): J96.21 - ACUTE AND CHRONIC RESPIRATORY FAILURE WITH HYPOXIA; J96.22 - ACUTE AND CHRONIC RESPIRATORY FAILURE WITH HYPERCAPNIA (2) Anemia Code(s): D64.9 - ANEMIA, UNSPECIFIED (3) Bipolar 1 disorder, depressed Code(s): F31.9 - BIPOLAR DISORDER, UNSPECIFIED (4) COPD exacerbation Code(s): J44.1 - CHRONIC OBSTRUCTIVE PULMONARY DISEASE W (ACUTE) EXACERBATION (5) Pneumonia Code(s): J18.9 - PNEUMONIA, UNSPECIFIED ORGANISM Qualifiers: Pneumonia type: due to unspecified organism Laterality: right Lung location: lower lobe of lung Qualified Code(s): J18.1 - Lobar pneumonia, unspecified organism (6) COPD exacerbation Code(s): J44.1 - CHRONIC OBSTRUCTIVE PULMONARY DISEASE W (ACUTE) EXACERBATION (7) Morbid obesity Code(s): E66.01 - MORBID (SEVERE) OBESITY DUE TO EXCESS CALORIES (8) Tracheostomy dependence Code(s): Z93.0 - TRACHEOSTOMY STATUS (9) GERD (gastroesophageal reflux disease) Code(s): K21.9 - GASTRO-ESOPHAGEAL REFLUX DISEASE WITHOUT ESOPHAGITIS (10) HLD (hyperlipidemia) Code(s): E78.5 - HYPERLIPIDEMIA, UNSPECIFIED (11) Hypothyroid Code(s): E03.9 - HYPOTHYROIDISM, UNSPECIFIED
[2019-03-03] MEDS ORDERED: PT OWN MED DRAWER 7, Y5N ONE (13:04)
[2019-03-03] MEDS: METOLAZONE 2.5 MG TABLET (FP) PO SCH (13:07)
[2019-03-03] MEDS: POLYETHYLENE GLYCOL 3350 119 GM BTL PO SCH ×2 (14:18→23:09)
[2019-03-03] MEDS: SODIUM CHLORIDE 0.45% 1,000 ML IV SCH (14:37)
--- NOTE | 2019-03-03 19:59 | PN ---
Progress Note (short form) - Note Progress Note: feels great slept well on trach collar Vital Signs Period Temp Pulse Resp BP Sys/Petersen Pulse Ox Last 24 Hr 97.7 F-98.5 F 51-74 14-26 114-147/58-84 96-97 cor-rrr lungs decreased bs at bases abd soft ext trace edema CBC, BMP 03/02/19 07:00 03/02/19 07:00 Microbiology 03/01/19 16:00 Sputum - Endotrachea Suction/Ventilator Gram Stain - Final 03/01/19 13:45 Urine For Antigen Detection Legionella Antigen - Final 03/01/19 13:45 Urine For Antigen Detection Streptococcus pneumoniae Antigen (M - Final 02/28/19 17:36 Urine - Urine - Catheterized Urine Culture - Preliminary Lactose Fermenting Neg Bacilli Non Lactose Fermenting Gnb a/p acute on chronic respiratory failure suspect COPD exacerbation cannot r/o component of CHF doing well can switch to po ceftin 500 bid in am please call back if needed Problem List - Problems (1) Acute on chronic respiratory failure with hypoxia and hypercapnia Code(s): J96.21 - ACUTE AND CHRONIC RESPIRATORY FAILURE WITH HYPOXIA; J96.22 - ACUTE AND CHRONIC RESPIRATORY FAILURE WITH HYPERCAPNIA (2) COPD exacerbation Code(s): J44.1 - CHRONIC OBSTRUCTIVE PULMONARY DISEASE W (ACUTE) EXACERBATION (3) CHF (congestive heart failure) Code(s): I50.9 - HEART FAILURE, UNSPECIFIED (4) Pneumonia Code(s): J18.9 - PNEUMONIA, UNSPECIFIED ORGANISM Qualifiers: Pneumonia type: due to unspecified organism Laterality: right Lung location: lower lobe of lung Qualified Code(s): J18.1 - Lobar pneumonia, unspecified organism (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
[2019-03-03] MEDS: ATORVASTATIN CA 10 MG TABLET (FP) PO SCH (23:09)
[2019-03-03] MEDS: LORazepam 0.5 MG TABLET PO SCH (23:09)
[2019-03-03] MEDS: traZODone HCL 100 MG TABLET (FP) PO SCH (23:09)
[2019-03-03] MEDS: SENNOSIDES 8.6MG TABLET (FP) PO SCH (23:10)
[2019-03-04] MEDS: traMADol HCL 50 MG TABLET PO SCH ×2 (06:05→13:16)
[2019-03-04] MEDS: FUROSEMIDE 40 MG TABLET (FP) PO SCH ×2 (06:05→14:53)
[2019-03-04] MEDS: hydrOXYzine HCL 25 MG TABLET (FP) PO SCH ×2 (06:05→14:54)
[2019-03-04] MEDS: CYCLOBENZAPRINE HCL 10 MG TABLET (FP) PO SCH ×2 (06:05→14:53)
[2019-03-04] MEDS: INSULIN SLIDING SCALE (NOVOLOG) 1 VIAL SQ SCH ×2 (06:06→17:30)
[2019-03-04] MEDS: GABAPENTIN 400 MG CAPSULE (FP) PO SCH ×2 (06:06→14:54)
[2019-03-04 08:14] LABS: BASO % 0.1 % (0-2.0); EOS % 0.4 % (0-4.5); HEMATOCRIT 36.8 % (32.4-45.2); HEMOGLOBIN 11.8 GM/dL (10.7-15.3); LYMPH % 28.5 % (8-40); MCH 24.9 pg (25.7-33.7); MCHC 32.1 g/dl (32.0-36.0); MEAN CELL VOLUME 77.4 fl (80-96); MEAN PLT VOLUME 6.9 fl (7.5-11.1); MONO % 7.4 % (3.8-10.2); NEUT % 63.6 % (42.8-82.8); PLATELET COUNT 464 K/MM3 (134-434); RBC 4.76 M/mm3 (3.60-5.2); WHITE BLOOD COUNT 8.4 K/mm3 (4.0-10.0)
[2019-03-04 08:34] LABS: ALBUMIN 3.6 g/dl (3.4-5.0); BILIRUBIN,TOTAL 0.2 mg/dL (0.2-1); BLOOD UREA NITROGEN 35.1 mg/dL (7-18); CALCIUM 9.6 mg/dL (8.5-10.1); CREATININE 0.7 mg/dL (0.55-1.3); POTASSIUM 3.5 mmol/L (3.5-5.1); TOT PROT 7.9 g/dl (6.4-8.2)
[2019-03-04] MEDS ORDERED: DEXTROSE 5%-WATER 200 ML IVPB ONE (10:39)
[2019-03-04] MEDS: SIMETHICONE 80 MG TAB.CHEW (FP) PO SCH ×3 (10:55→17:30)
[2019-03-04] MEDS: methylPREDNISolone NA SUCC 40 MG/1 ML VIAL IVPUSH SCH (10:55)
[2019-03-04] MEDS: POTASSIUM CHLORIDE TABS 20 MEQ TABLET.ER (FP) PO SCH (10:56)
[2019-03-04] MEDS: SPIRONOLACTONE 25 MG TABLET (FP) PO SCH (10:56)
[2019-03-04] MEDS: FERROUS SO4 325 MG TABLET (FP) PO SCH (10:56)
[2019-03-04] MEDS: PANTOPRAZOLE 40 MG TABLET (FP) PO SCH (10:56)
[2019-03-04] MEDS: ASPIRIN 81 MG CHEWABLE TABLETS PO SCH (10:56)
[2019-03-04] MEDS: ESCITALOPRAM OXALATE 20 MG TABLET (FP) PO SCH (10:56)
[2019-03-04] MEDS: ARIPiprazole 10 MG TABLET PO SCH (10:56)
[2019-03-04] MEDS: APIXABAN 5 MG TABLET PO SCH (10:57)
[2019-03-04] MEDS: CEFTRIAXONE 2 GM in DEXTROSE 5%-WATER 100 ML IVPB SCH (10:59)
[2019-03-04] MEDS ORDERED: INSULIN (NOVOLOG) ASPART 100 UNITS/ML 10ML VIAL ONE ×2 (12:33→17:04)
--- NOTE | 2019-03-04 12:33 | DS ---
Physical Examination Vital Signs: Vital Signs Temperature 97.8 F 03/04/19 10:54 Pulse Rate 64 03/04/19 10:54 Respiratory Rate 24 H 03/04/19 10:54 Blood Pressure 142/68 03/04/19 10:54 O2 Sat by Pulse Oximetry (%) 98 03/04/19 08:39 Constitutional: Yes: Calm, Obese Neck: Yes: Other (trach) Cardiovascular: Yes: Regular Rate and Rhythm, S1, S2 Respiratory: Yes: CTA Bilaterally Gastrointestinal: Yes: Normal Bowel Sounds, Soft Neurological: Yes: Alert Labs: CBC, BMP 03/04/19 07:20 03/04/19 07:20 Discharge Summary Reason For Visit: OBSTRUCTIVE CHRONIC BRONCHITIS WITH EXACERBATION, Current Active Problems Acute on chronic respiratory failure with hypoxia and hypercapnia (Acute) Anemia (Acute) Bipolar 1 disorder, depressed (Acute) COPD exacerbation (Acute) Constipation (Acute) GERD (gastroesophageal reflux disease) (Acute) HLD (hyperlipidemia) (Acute) Hyperglycemia (Acute) Hypothyroid (Acute) Lactic acidosis (Acute) Leukocytosis (Acute) Pneumonia (Acute) Thromboembolism (Acute) Hospital Course: 53 year old female arrived from [facility] via EMS with PMH of chronic respiratory disease (chronic vent, trach x1 year 2/2 long-term smoking), CHF, COPD, pneumonia, venous TBE (on eliquis), morbid obesity, HLD, hypothyroidism, and anemia, who is presenting with worsening SOB and productive cough x3 days. Pt states she sob / cough has been getting worse for past 3 days. Patient denies any recent fevers/chills, headache, vision changes, syncope, chest pain, palpitations, nausea/vomiting, abdominal pain, urinary symptoms, diarrhea/constipation, or leg swelling. admitted for COPD exacerbtion abx iv medrol now improved inc WBC now normal and lactic acid normal as well Condition: Improved - Instructions Disposition: SNF FACILITY - Home Medications Comprehensive Discharge Medication List: Ambulatory Orders Acetaminophen [Pain Reliever] 1,000 mg PO QID 02/28/19 Acetylcysteine 100 mg IH TID 02/28/19 Apixaban [Eliquis] 5 mg PO BID 02/28/19 Aripiprazole 10 mg PO DAILY 02/28/19 Aspirin 81 mg PO DAILY 02/28/19 Cyclobenzaprine HCl [Flexeril 10 mg] 10 mg PO TID 02/28/19 Escitalopram Oxalate [Lexapro -] 20 mg PO DAILY 02/28/19 Ferrous Sulfate 325 mg PO DAILY 02/28/19 Furosemide 80 mg PO BID 02/28/19 Gabapentin 400 mg PO TID 02/28/19 Hydroxyzine Pamoate 25 mg PO TID 02/28/19 Lorazepam 0.5 mg PO HS 02/28/19 Magnesium Oxide 800 mg PO TID 02/28/19 Metolazone [Zaroxolyn -] 2.5 mg PO DAILY 02/28/19 Montelukast Sodium [Singulair] 10 mg PO HS 02/28/19 Multivitamins [Tab-A-Vit -] 1 tab PO DAILY 02/28/19 Pantoprazole Sodium 40 mg PO 02/28/19 Potassium Chloride 20 meq PO QID 02/28/19 Pravastatin Sodium [Pravachol (Nf)] 20 mg PO HS 02/28/19 Prednisone [Deltasone] 20 mg PO DAILY 02/28/19 Pulmicort 0.5 mg Nebulizer - 2 ml IH TID 02/28/19 Sennosides [Senna] 2 tab PO HS 02/28/19 Silver Sulfadiazine 1% Top Cr [Silvadene -] 1 applic TP BID 02/28/19 Simethicone 80 mg PO QID 02/28/19 Spironolactone [Aldactone] 25 mg PO DAILY 02/28/19 Zinc Oxide 20% Topical Oint 1 applic TP BID 02/28/19 traMADol HCL [Ultram] 50 mg PO Q8H 02/28/19 traZODone HCL [Trazodone HCl] 100 mg PO HS 02/28/19
[2019-03-04] MEDS: METOLAZONE 2.5 MG TABLET (FP) PO SCH (13:17)
[2019-03-04] MEDS: POLYETHYLENE GLYCOL 3350 119 GM BTL PO SCH (13:18)
--- NOTE | 2019-03-04 13:50 | PN ---
Progress Note, Physician History of Present Illness: PULMONARY ALERT COMFORTABLE ON TRACH COLLAR,-RESP DISTRESS - Current Medication List Current Medications: Active Medications Acetaminophen (Tylenol -) 650 mg PO Q6H PRN PRN Reason: FEVER Albuterol/Ipratropium (Duoneb -) 1 amp NEB Q6H PRN PRN Reason: SHORTNESS OF BREATH Last Admin: 03/01/19 12:08 Dose: 1 amp Apixaban (Eliquis -) 5 mg PO BID [facility] Last Admin: 03/04/19 10:57 Dose: 5 mg Aripiprazole (Abilify) 10 mg PO DAILY [facility] Last Admin: 03/04/19 10:56 Dose: 10 mg Aspirin (Asa -) 81 mg PO DAILY [facility] Last Admin: 03/04/19 10:56 Dose: 81 mg Atorvastatin Calcium (Lipitor -) 10 mg PO HS [facility] Last Admin: 03/03/19 23:09 Dose: 10 mg Cyclobenzaprine HCl (Flexeril -) 10 mg PO TID [facility] Last Admin: 03/04/19 06:05 Dose: 10 mg Escitalopram Oxalate (Lexapro -) 20 mg PO DAILY [facility] Last Admin: 03/04/19 10:56 Dose: 20 mg Ferrous Sulfate (Feosol -) 325 mg PO DAILY [facility] Last Admin: 03/04/19 10:56 Dose: 325 mg Furosemide (Lasix -) 80 mg PO BIDLASIX [facility] Last Admin: 03/04/19 06:05 Dose: 80 mg Gabapentin (Neurontin -) 400 mg PO TID [facility] Last Admin: 03/04/19 06:06 Dose: 400 mg Hydroxyzine HCl (Atarax -) 25 mg PO TID [facility] Last Admin: 03/04/19 06:05 Dose: 25 mg Sodium Chloride (1/2 Normal Saline) 1,000 mls @ 50 mls/hr IV ASDIR [facility] Last Admin: 03/03/19 14:37 Dose: 50 mls/hr Insulin Aspart (Novolog Vial Sliding Scale -) 1 vial SQ BIDAC [facility]; Protocol Last Admin: 03/04/19 06:06 Dose: Not Given Lorazepam (Ativan -) 0.5 mg PO HS [facility] Last Admin: 03/03/19 23:09 Dose: 0.5 mg Methylprednisolone Sodium Succinate (Solu-Medrol -) 40 mg IVPUSH DAILY [facility] Metolazone (Zaroxolyn -) 2.5 mg PO DAILY@1330 [facility] Last Admin: 03/04/19 13:17 Dose: 2.5 mg Pantoprazole Sodium (Protonix -) 40 mg PO DAILY [facility] Last Admin: 03/04/19 10:56 Dose: 40 mg Polyethylene Glycol (Miralax (For Daily Use) -) 17 gm PO BID [facility] Last Admin: 03/04/19 13:18 Dose: Not Given Potassium Chloride (K-Dur -) 40 meq PO DAILY [facility] Last Admin: 03/04/19 10:56 Dose: 40 meq Senna (Senna -) 2 tab PO HS [facility] Last Admin: 03/03/19 23:10 Dose: Not Given Simethicone (Mylicon -) 80 mg PO QID [facility] Last Admin: 03/04/19 13:19 Dose: 80 mg Spironolactone (Aldactone -) 25 mg PO DAILY [facility] Last Admin: 03/04/19 10:56 Dose: 25 mg Tramadol HCl (Ultram -) 50 mg PO Q8H [facility] Last Admin: 03/04/19 13:16 Dose: 50 mg Trazodone HCl (Desyrel -) 100 mg PO HS [facility] Last Admin: 03/03/19 23:09 Dose: 100 mg - Objective Vital Signs: Vital Signs Temperature 97.8 F 03/04/19 10:54 Pulse Rate 83 03/04/19 13:15 Respiratory Rate 24 H 03/04/19 13:15 Blood Pressure 154/76 03/04/19 13:15 O2 Sat by Pulse Oximetry (%) 98 03/04/19 08:39 Constitutional: Yes: Calm, Obese Eyes: Yes: WNL HENT: Yes: WNL Neck: Yes: Supple (TRACH) Cardiovascular: Yes: Regular Rate and Rhythm, S1, S2 Respiratory: Yes: CTA Bilaterally Gastrointestinal: Yes: Normal Bowel Sounds, Soft, Abdomen, Obese Extremities: Yes: WNL Edema: No Labs: CBC, BMP 03/04/19 07:20 03/04/19 07:20 INR, PTT INR 1.47 (0.83-1.09) H 02/28/19 15:07 Problem List - Problems (1) Acute on chronic respiratory failure with hypoxia and hypercapnia Code(s): J96.21 - ACUTE AND CHRONIC RESPIRATORY FAILURE WITH HYPOXIA; J96.22 - ACUTE AND CHRONIC RESPIRATORY FAILURE WITH HYPERCAPNIA (2) Anemia Code(s): D64.9 - ANEMIA, UNSPECIFIED (3) Bipolar 1 disorder, depressed Code(s): F31.9 - BIPOLAR DISORDER, UNSPECIFIED (4) COPD exacerbation Code(s): J44.1 - CHRONIC OBSTRUCTIVE PULMONARY DISEASE W (ACUTE) EXACERBATION (5) Pneumonia Code(s): J18.9 - PNEUMONIA, UNSPECIFIED ORGANISM Qualifiers: Pneumonia type: due to unspecified organism Laterality: right Lung location: lower lobe of lung Qualified Code(s): J18.1 - Lobar pneumonia, unspecified organism (6) COPD exacerbation Code(s): J44.1 - CHRONIC OBSTRUCTIVE PULMONARY DISEASE W (ACUTE) EXACERBATION (7) Morbid obesity Code(s): E66.01 - MORBID (SEVERE) OBESITY DUE TO EXCESS CALORIES (8) Tracheostomy dependence Code(s): Z93.0 - TRACHEOSTOMY STATUS (9) GERD (gastroesophageal reflux disease) Code(s): K21.9 - GASTRO-ESOPHAGEAL REFLUX DISEASE WITHOUT ESOPHAGITIS (10) HLD (hyperlipidemia) Code(s): E78.5 - HYPERLIPIDEMIA, UNSPECIFIED (11) Hypothyroid Code(s): E03.9 - HYPOTHYROIDISM, UNSPECIFIED Assessment/Plan IMP ACUTE ON CHRONIC HYPOXEMIC/HYPERCAPNEIC RESPIRATORY FAILURE ADVANCED COPD WITH ACUTE EXACERBATION IMPROVING CHF ? PNEUMONIA MORBID OBESITY ANEMIA ELEVATED LACTATE LEVEL TRENDING DOWN HYPOTHYROID HLD PLAN VENT SUPPORT ON AC MODE AT NIGHT TRACH COLLAR TRANSFER TO SNF DR STEELE Problem List - Problems (1) Acute on chronic respiratory failure with hypoxia and hypercapnia Code(s): J96.21 - ACUTE AND CHRONIC RESPIRATORY FAILURE WITH HYPOXIA; J96.22 - ACUTE AND CHRONIC RESPIRATORY FAILURE WITH HYPERCAPNIA (2) Anemia Code(s): D64.9 - ANEMIA, UNSPECIFIED (3) Bipolar 1 disorder, depressed Code(s): F31.9 - BIPOLAR DISORDER, UNSPECIFIED (4) COPD exacerbation Code(s): J44.1 - CHRONIC OBSTRUCTIVE PULMONARY DISEASE W (ACUTE) EXACERBATION (5) Pneumonia Code(s): J18.9 - PNEUMONIA, UNSPECIFIED ORGANISM Qualifiers: Pneumonia type: due to unspecified organism Laterality: right Lung location: lower lobe of lung Qualified Code(s): J18.1 - Lobar pneumonia, unspecified organism (6) COPD exacerbation Code(s): J44.1 - CHRONIC OBSTRUCTIVE PULMONARY DISEASE W (ACUTE) EXACERBATION (7) Morbid obesity Code(s): E66.01 - MORBID (SEVERE) OBESITY DUE TO EXCESS CALORIES (8) Tracheostomy dependence Code(s): Z93.0 - TRACHEOSTOMY STATUS (9) GERD (gastroesophageal reflux disease) Code(s): K21.9 - GASTRO-ESOPHAGEAL REFLUX DISEASE WITHOUT ESOPHAGITIS (10) HLD (hyperlipidemia) Code(s): E78.5 - HYPERLIPIDEMIA, UNSPECIFIED (11) Hypothyroid Code(s): E03.9 - HYPOTHYROIDISM, UNSPECIFIED
[2019-03-04] MEDS: SODIUM CHLORIDE 0.45% 1,000 ML IV SCH (14:55)
[2019-03-04 18:21] VITALS: BP 150/69; PULSE 66; TEMP 97.8
[2019-03-05] MEDS ORDERED: methylPREDNISolone NA SUCC 40 MG/1 ML VIAL IVPUSH SCH (10:00)
== END 2019-03-04 19:04 | DRG 208 ==
LOC: JER 13:56 → JERBED 17:38 → J5S 03-01 01:51
PROVIDERS: ADMIT Family Medicine; ATTEND Family Medicine
PROC: 5A1945Z Respiratory Ventilation, 24-96 Consecutive Hours (ICD-10-PCS; principal; 2019-02-28)
DX: J96.21 Acute and chronic respiratory failure with hypoxia (principal); J18.9 Pneumonia, unspecified organism; J44.1 Chronic obstructive pulmonary disease with (acute) exacerbation; Z68.45 Body mass index [BMI] 70 or greater, adult; I50.32 Chronic diastolic (congestive) heart failure; N39.0 Urinary tract infection, site not specified; I74.9 Embolism and thrombosis of unspecified artery; J96.22 Acute and chronic respiratory failure with hypercapnia; E78.5 Hyperlipidemia, unspecified; E03.9 Hypothyroidism, unspecified; E66.01 Morbid (severe) obesity due to excess calories; D64.9 Anemia, unspecified; F31.9 Bipolar disorder, unspecified; Z93.0 Tracheostomy status; K21.9 Gastro-esophageal reflux disease without esophagitis; K59.00 Constipation, unspecified; D72.829 Elevated white blood cell count, unspecified; E87.6 Hypokalemia
CPT/HCPCS: 36415; 36600; 71045-TC-FY; 80053; 81003; 82272; 82375; 82550; 82607; 82728; 82803; 82962; 83036; 83050; 83540; 83550; 83605; 83735; 83880; 84439; 84443; 84484; 85025; 85027; 85610; 85730; 87070; 87086; 87186; 87205; 87899; 93005; 93010; 94002; 94640; 99284-25; J0131; J7030

== ENCOUNTER 2019-04-20 10:44 | Emergency (ER) | payer OTHER ==
[2019-04-20 11:07] VITALS: PULSE 76; TEMP 98.4; BMI 64.7
[2019-04-20] MEDS ORDERED: VANCOMYCIN 1 GM in D5W (PRE-DOCKED) 1,000 MG/250 ML IVPB ONE (12:12)
--- NOTE | 2019-04-20 12:12 | PDOC ---
Documentation entered by Tonja Becker SCRIBE, acting as scribe for Amanda Dominguez MD. Amanda Dominguez MD: This documentation has been prepared by the Eugenio yee Adrianna, SCRIBE, under my direction and personally reviewed by me in its entirety. I confirm that the documentation accurately reflects all work, treatment, procedures, and medical decision making performed by me. History of Present Illness - General Stated Complaint: TRACH ISSUES - History of Present Illness Initial Comments: 54 Y F, PMH of chronic respiratory disease (chronic vent, trach x1 year 2/2 long -term smoking), CHF (80 mg BID lasix), COPD, pneumonia, venous TBE (on eliquis) , morbid obesity, HLD, hypothyroidism, and anemia, presenting from [facility] with pain at her trach site for the past week. Patient endorses pain at her trach site, and notes she feels like it is coming out. The skin around the trach site is irritated, and she states she has never had it changed in the past. She notes her bilateral lower extremities and bilateral hands are edematous secondary to her COPD. at facility earlier her saturations were 87%, and she wears trach shied/ venti mask with trach collar. size 7 tube. Denies fever, chills, nausea or vomit. Allergies: NKA, NKDA Surgical History: [facility] [place] Social History: [facility] resident. Former smoker (quit 2 years ago). Denies EtOH or illicit drug use PCP: Dr. Owens Strategic Development Manager: Dr. Antunez 04/20/19 12:02 Past History - Past Medical History Allergies/Adverse Reactions: Allergies Allergy/AdvReac Type Severity Reaction Status Date / Time No Known Allergies Allergy Verified 11/07/18 20:14 Home Medications: Ambulatory Orders Acetaminophen [Pain Reliever] 1,000 mg PO QID 02/28/19 Acetylcysteine 100 mg IH TID 02/28/19 Apixaban [Eliquis] 5 mg PO BID 02/28/19 Aripiprazole 10 mg PO DAILY 02/28/19 Aspirin 81 mg PO DAILY 02/28/19 Cyclobenzaprine HCl [Flexeril 10 mg] 10 mg PO TID 02/28/19 Escitalopram Oxalate [Lexapro -] 20 mg PO DAILY 02/28/19 Ferrous Sulfate 325 mg PO DAILY 02/28/19 Furosemide 80 mg PO BID 02/28/19 Gabapentin 400 mg PO TID 02/28/19 Hydroxyzine Pamoate 25 mg PO TID 02/28/19 Lorazepam 0.5 mg PO HS 02/28/19 Magnesium Oxide 800 mg PO TID 02/28/19 Metolazone [Zaroxolyn -] 2.5 mg PO DAILY 02/28/19 Montelukast Sodium [Singulair] 10 mg PO HS 02/28/19 Multivitamins [Multivit ([facility] Formulary)] 1 tab PO DAILY 02/28/19 Pantoprazole Sodium 40 mg PO 02/28/19 Pravastatin Sodium [Pravachol -] 20 mg PO HS 02/28/19 Pulmicort 0.5 mg Nebulizer - 2 ml IH TID 02/28/19 Sennosides [Senna -] 2 tab PO HS 02/28/19 Silver Sulfadiazine 1% Top Cr [Silvadene -] 1 applic TP BID 02/28/19 Simethicone 80 mg PO QID 02/28/19 Spironolactone [Aldactone] 25 mg PO DAILY 02/28/19 Zinc Oxide 20% Topical Oint 1 applic TP BID 02/28/19 traMADol HCL [Ultram -] 50 mg PO Q8H 02/28/19 traZODone HCL [Trazodone HCl] 100 mg PO HS 02/28/19 Cefuroxime Axetil [Ceftin -] 500 mg PO Q12H #20 tablet 03/04/19 Prednisone [Deltasone] 40 mg PO DAILY #10 tab 03/04/19 Cardiac Disorders: (heart failure- 2013) COPD: Yes CHF: Yes Diabetes: Yes HTN: Yes Hypercholesterolemia: Yes Psychiatric Problems: Yes (bipolar) Seizures: Yes Thyroid Disease: Yes - Surgical History Appendectomy: No Gastric Stapling: No - Immunization History Immunization Up to Date: Yes - Psycho Social/Smoking Cessation Hx Smoking Status: No Smoking History: Former smoker Have you smoked in the past 12 months: No Number of Cigarettes Smoked Daily: 5 If you are a former smoker, when did you quit?: 2017 'Breaking Loose' booklet given: 05/11/18 Hx Alcohol Use: No Drug/Substance Use Hx: No Substance Use Type: None Hx Substance Use Treatment: No Review of Systems - Review of Systems Comments:: GENERAL/CONSTITUTIONAL: No fever or chills. No weakness. HEAD, EYES, EARS, NOSE AND THROAT: No change in vision. No ear pain or discharge. No sore throat. CARDIOVASCULAR: No chest pain or shortness of breath. RESPIRATORY: +Pain and irritation at the trach site. No cough, wheezing, or hemoptysis. GASTROINTESTINAL: No nausea, vomiting, diarrhea or constipation. GENITOURINARY: No dysuria, frequency, or change in urination. MUSCULOSKELETAL: +Bilateral lower extremity edema. +Bilateral hand edema. No joint or muscle pain. No neck or back pain. SKIN: No rash NEUROLOGIC: No headache, vertigo, loss of consciousness, or change in strength/ sensation. ENDOCRINE: No increased thirst. No abnormal weight change. HEMATOLOGIC/LYMPHATIC: No anemia, easy bleeding, or history of blood clots. ALLERGIC/IMMUNOLOGIC: No hives or skin allergy. Constitutional: No: Chills, Diaphoresis, Fever HEENTM: Yes: Throat Pain. No: Eye Pain Respiratory: Yes: Cough, Shortness of Breath All Other Systems: Reviewed and Negative *Physical Exam - Vital Signs Last Vital Signs Temp Pulse Resp BP Pulse Ox 98.4 F 76 24 H 131/75 95 04/20/19 11:02 04/20/19 11:10 04/20/19 11:02 04/20/19 11:02 04/20/19 11:10 - Physical Exam General Appearance: No: Appropriately Dressed HEENT: positive: Other (trach in place out of stoma 1 cm. surrounding skin erythema, breakdown. no purulence. ) ED Treatment Course - LABORATORY CBC & Chemistry Diagram: 04/20/19 12:00 04/20/19 12:00 - RADIOLOGY Radiology Studies Ordered: Category Date Time Status CHEST X-RAY PORTABLE* [RAD] Stat Radiology 04/20/19 11:32 Ordered Medical Decision Making - Medical Decision Making 04/20/19 12:08 54 yo F h/o morbid obesity, copd, trach colloar trach for chronic resp failure copd here with needing trach changed. pt with difficult airway, size 7 tube. portex tube. pt with c/o pain at site. on exam skin warm and irritated. cellulitis. plan iv abx. will transfer pt as may require changing in OR concerns for infection, difficult airway, . 04/20/19 12:32 d/w transfer center at [facility] due to concerns for difficulty airway, pt may require trach change in or. will accept transfer, felt more appropriate for pt to go to ED at [facility]. 04/20/19 12:40 d/w [facility] accepted by ENT resident, awaiting name of attending. d/w DR Hodges in ED who accepted to ED. Discharge - Discharge Information Problems reviewed: Yes Clinical Impression/Diagnosis: Trachea displaced, Cellulitis Condition: Good Disposition: TRANSFER ACUTE CARE/OTHER HOSP - Follow up/Referral Referrals: Robert Owens [Primary Care Provider] - - Patient Discharge Instructions - Post Discharge Activity - Transfer to Acute Care Facility Receiving Facility Name: [facility]
[2019-04-20] MEDS ORDERED: PIPERACILLIN/TAZOB 3.375 GM 3.375 GM in DEXTROSE 5%-WATER - 50 ML IVPB ONE (12:13)
[2019-04-20 12:15] LABS: BASO % 0.6 % (0-2.0); EOS % 2.2 % (0-4.5); HEMATOCRIT 32.8 % (32.4-45.2); HEMOGLOBIN 10.4 GM/dL (10.7-15.3); LYMPH % 20.3 % (8-40); MCH 25.5 pg (25.7-33.7); MCHC 31.8 g/dl (32.0-36.0); MONO % 4.4 % (3.8-10.2); NEUT % 72.5 % (42.8-82.8); PLATELET COUNT 339 K/MM3 (134-434); RDW 17.2 % (11.6-15.6); WHITE BLOOD COUNT 8.6 K/mm3 (4.0-10.0)
[2019-04-20] MEDS ORDERED: PIPERACILLIN/TAZOB 3.375 GM 3.375 GM/50 ML BAG IVPB ONE (12:19)
[2019-04-20 12:37] LABS: INR 1.19 (0.83-1.09); PROTHROMBIN TIME (PATIENT) 14.1 SEC (9.7-13.0)
[2019-04-20 12:40] LABS: ACTIVATED PTT 33.1 SECONDS (25.2-36.5)
[2019-04-20 12:42] LABS: ALBUMIN 3.3 g/dl (3.4-5.0); BILIRUBIN,TOTAL 0.4 mg/dL (0.2-1); BLOOD UREA NITROGEN 20.7 mg/dL (7-18); CALCIUM 9.5 mg/dL (8.5-10.1); CREATININE 0.6 mg/dL (0.55-1.3); TOT PROT 7.1 g/dl (6.4-8.2)
[2019-04-20] MEDS ORDERED: ACETAMINOPHEN 325 MG TABLET (FP) ONE (13:00)
[2019-04-20] MEDS ORDERED: VANCOMYCIN 1 GRAM (PRE-DOCKED) 1,000 MG/250 ML BAG IVPB ONE (13:00)
[2019-04-20] MEDS ORDERED: ACETAMINOPHEN 1000 MG/100 ML VIAL (NON FORMULARY) IVPB ONE (13:00)
[2019-04-20] MEDS ORDERED: ALBUTEROL SO4 2.5/IPRATROPIUM 0.5 INH SOL 3 ML VIAL.NEB. NEB ONE ×2 (13:00)
[2019-04-20] MEDS ORDERED: ACETAMINOPHEN INJECTION 100 ML IVPB ONE (13:25)
[2019-04-20 16:35] VITALS: BP 103/46
== END 2019-04-20 14:09 | disposition short-term general hospital (02) ==
LOC: JER 10:44
DX: Z43.0 Encounter for attention to tracheostomy (principal); L03.90 Cellulitis, unspecified; J44.9 Chronic obstructive pulmonary disease, unspecified; J96.90 Respiratory failure, unspecified, unspecified whether with hypoxia or hypercapnia; E66.01 Morbid (severe) obesity due to excess calories; Z68.27 Body mass index [BMI] 27.0-27.9, adult; I10 Essential (primary) hypertension; E78.00 Pure hypercholesterolemia, unspecified; F31.9 Bipolar disorder, unspecified; R56.9 Unspecified convulsions; E07.9 Disorder of thyroid, unspecified; I50.9 Heart failure, unspecified
CPT/HCPCS: 36415; 71045-TC-FY; 80053; 83605; 85025; 85610; 85730; 87040; 99283-25; J0131

== ENCOUNTER 2019-04-29 14:00 | Emergency (ER) | payer OTHER ==
[2019-04-29 15:11] VITALS: BMI 71.0
--- NOTE | 2019-04-29 16:24 | PDOC ---
Documentation entered by Tonja Becker SCRIBE, acting as scribe for Jayson Whelan MD. Jayson Whelan MD: This documentation has been prepared by the Eugenio yee Adrianna, SCRIBE, under my direction and personally reviewed by me in its entirety. I confirm that the documentation accurately reflects all work, treatment, procedures, and medical decision making performed by me. Attending Attestation - Resident Resident Name: Dima Live - ED Attending Attestation I have performed the following: I have examined & evaluated the patient, The case was reviewed & discussed with the resident, I agree w/resident's findings & plan, Exceptions are as noted - HPI HPI: 04/29/19 16:25 54 F with h/o chronic respiratory disease (chronic vent, trach x1 year 2/2 long- term smoking), CHF (80 mg BID lasix), COPD, pneumonia, venous TBE (on eliquis), morbid obesity, HLD, hypothyroidism, and anemia, presenting from [facility] with bleeding and pain around trach. Pt was seen here last week with irritation to trach and was transferred to [facility], where she had her trach replaced. Pt states that since she was discharged from [facility], she has had persistent pain and mild bleeding from the trach. The bleeding acutely worsened today and pt reports coughing up clots. - Physicial Exam PE: 04/29/19 16:27 "GENERAL: Awake, alert, and fully oriented, in no acute distress. HEAD: No signs of trauma EYES: PERRLA, EOMI, sclera anicteric, conjunctiva clear ENT: + trach in place, no active bleeding, Auricles normal inspection, hearing grossly normal, nares patent, oropharynx clear without exudates. Moist mucosa NECK: Nontender, no stepoffs, Normal ROM, supple, no lymphadenopathy, JVD, or masses LUNGS: Breath sounds equal, clear to auscultation bilaterally. No wheezes, and no crackles HEART: Regular rate and rhythm, normal S1 and S2, no murmurs, rubs or gallops ABDOMEN: Soft, nontender, normoactive bowel sounds. No guarding, no rebound. No masses EXTREMITIES: Normal range of motion, no edema. No clubbing or cyanosis. No cords, erythema, or tenderness NEUROLOGICAL: Cranial nerves II through XII intact. 5/5 strength and sensation in all extremities, Normal speech, normal gait, normal cerebellar function SKIN: Warm, Dry, normal turgor, no rashes or lesions noted. - Medical Decision Making 04/29/19 16:28 54 F with pain and bleeding from trach. No active bleeding currently. Will need ENT evaluation. - Labs, coags, T&S - Michael Weinstein for ENT
--- NOTE | 2019-04-29 16:32 | PDOC ---
History of Present Illness - General Chief Complaint: Trach Tube Replacement Stated Complaint: G TUBE PROBLEM Time Seen by Provider: 04/29/19 15:45 History Source: Patient Exam Limitations: No Limitations Past History - Past Medical History Allergies/Adverse Reactions: Allergies Allergy/AdvReac Type Severity Reaction Status Date / Time No Known Allergies Allergy Verified 04/29/19 15:11 Home Medications: Ambulatory Orders Acetaminophen [Pain Reliever] 1,000 mg PO QID 02/28/19 Acetylcysteine 100 mg IH TID 02/28/19 Apixaban [Eliquis] 5 mg PO BID 02/28/19 Aripiprazole 10 mg PO DAILY 02/28/19 Aspirin 81 mg PO DAILY 02/28/19 Cyclobenzaprine HCl [Flexeril 10 mg] 10 mg PO TID 02/28/19 Escitalopram Oxalate [Lexapro -] 20 mg PO DAILY 02/28/19 Ferrous Sulfate 325 mg PO DAILY 02/28/19 Furosemide 80 mg PO BID 02/28/19 Gabapentin 400 mg PO TID 02/28/19 Hydroxyzine Pamoate 25 mg PO TID 02/28/19 Lorazepam 0.5 mg PO HS 02/28/19 Magnesium Oxide 800 mg PO TID 02/28/19 Metolazone [Zaroxolyn -] 2.5 mg PO DAILY 02/28/19 Montelukast Sodium [Singulair] 10 mg PO HS 02/28/19 Multivitamins [Multivit ([facility] Formulary)] 1 tab PO DAILY 02/28/19 Pantoprazole Sodium 40 mg PO 02/28/19 Pravastatin Sodium [Pravachol -] 20 mg PO HS 02/28/19 Pulmicort 0.5 mg Nebulizer - 2 ml IH TID 02/28/19 Sennosides [Senna -] 2 tab PO HS 02/28/19 Silver Sulfadiazine 1% Top Cr [Silvadene -] 1 applic TP BID 02/28/19 Simethicone 80 mg PO QID 02/28/19 Spironolactone [Aldactone] 25 mg PO DAILY 02/28/19 Zinc Oxide 20% Topical Oint 1 applic TP BID 02/28/19 traMADol HCL [Ultram -] 50 mg PO Q8H 02/28/19 traZODone HCL [Trazodone HCl] 100 mg PO HS 02/28/19 Cefuroxime Axetil [Ceftin -] 500 mg PO Q12H #20 tablet 03/04/19 Prednisone [Deltasone] 40 mg PO DAILY #10 tab 03/04/19 Cardiac Disorders: Yes (heart failure- 2013) COPD: Yes CHF: Yes Diabetes: Yes HTN: Yes Hypercholesterolemia: Yes Psychiatric Problems: Yes (bipolar) Seizures: Yes Thyroid Disease: Yes - Surgical History Appendectomy: No Gastric Stapling: No - Immunization History Immunization Up to Date: Yes - Psycho Social/Smoking Cessation Hx Smoking Status: No Smoking History: Never smoked Have you smoked in the past 12 months: No Number of Cigarettes Smoked Daily: 5 If you are a former smoker, when did you quit?: 2017 Information on smoking cessation initiated: No 'Breaking Loose' booklet given: 05/11/18 Hx Alcohol Use: No Drug/Substance Use Hx: No Substance Use Type: None Hx Substance Use Treatment: No Review of Systems - Review of Systems Able to Perform ROS?: Yes Is the patient limited Japanese proficient: No *Physical Exam - Vital Signs Last Vital Signs Temp Pulse Resp BP Pulse Ox 98.9 F 67 16 119/72 100 04/29/19 14:01 04/29/19 14:01 04/29/19 14:01 04/29/19 14:01 04/29/19 14:01 ED Treatment Course - LABORATORY CBC & Chemistry Diagram: 04/29/19 16:47 04/29/19 16:30 Medical Decision Making - Medical Decision Making 04/29/19 16:22 HPI: 54F PMH COPD, HLD, BPD, morbid obesity, tracheostomy BIBEMS from [facility] due to bleeding of tracheostomy. Pt states trach was replaced about a week ago, [facility] records indicate patient was transferred to [facility] on 04/21/19. Pt states trach has been bleeding since replacement but was a larger amount today. States she was passing clots. Currently ventilated. No respiratory distress. Pt states she feels well ventilated. PMH: see chart MED: see chart NKDA ROS: Denies f/c Endorsing fullness of b/l ears x 4 days Endorses bleeding from tracheostomy (primary complaint). Denies sob Denies chest pain Denies abdpain/n/v Denies dysuria/frequency PE: VS reviewed GEN: Obese, NAD, awake, alert, cooperative HEENT: NC/AT, EOMI, PERRLA. No facial asymmetry. Moist mucous membranes. weak voice. Supple neck w/ FROM. CV: S1/S2, RRR, no m/r/g. Limited exam 2/2 body habitus. LUNG: No active bleeding or blood at tracheostomy site. Ventilated. CTAB, no wheezes, rales, rhonchi. GI: Obese, soft, ndnt, +BS, no guarding, no rebound. Hernia present. EXTREMITIES: 2+ distal pulses. No LE edema. No obvious deformities of all extremities. SKIN: warm, dry, normal turgor PSYCH: normal mood and affect, normal speech MDM: 54F c/o bleeding at tracheostomy site w/ recent replacement approx 1 week ago. Trach site bleeding - not actively bleeding - concern for sentinel bleed or evolving fistula - patient ventilated, saturating well - Type and screen, CBC, CMP - Contact [facility] XFER - ENT 04/29/19 16:45 - Discussed patient case with [facility] ENT Dr. Dean and ED Dr. Chavez, accepted for transfer to [facility] under Dr. Dean - Tracheostomy suctioned no blood, no clots, no mucus EMS arrived approx 19:00 for transfer Discharge - Discharge Information Problems reviewed: Yes Clinical Impression/Diagnosis: Pain Condition: Guarded Disposition: TRANSFER ACUTE CARE/OTHER HOSP - Follow up/Referral Referrals: Robert Owens [Primary Care Provider] - - Patient Discharge Instructions - Post Discharge Activity
[2019-04-29 17:07] LABS: BASO % 1.2 % (0-2.0); EOS % 0.2 % (0-4.5); HEMATOCRIT 34.4 % (32.4-45.2); HEMOGLOBIN 10.6 GM/dL (10.7-15.3); LYMPH % 8.5 % (8-40); MCH 24.8 pg (25.7-33.7); MCHC 30.9 g/dl (32.0-36.0); MEAN CELL VOLUME 80.2 fl (80-96); MEAN PLT VOLUME 7.2 fl (7.5-11.1); MONO % 1.9 % (3.8-10.2); NEUT % 88.2 % (42.8-82.8); PLATELET COUNT 384 K/MM3 (134-434); RBC 4.29 M/mm3 (3.60-5.2); RDW 16.7 % (11.6-15.6); WHITE BLOOD COUNT 12.1 K/mm3 (4.0-10.0)
[2019-04-29 17:17] LABS: ALBUMIN 3.3 g/dl (3.4-5.0); BILIRUBIN,TOTAL 0.5 mg/dL (0.2-1); BLOOD UREA NITROGEN 21.7 mg/dL (7-18); CALCIUM 9.6 mg/dL (8.5-10.1); CREATININE 0.7 mg/dL (0.55-1.3); POTASSIUM 4.1 mmol/L (3.5-5.1); TOT PROT 7.2 g/dl (6.4-8.2)
[2019-04-29 19:35] VITALS: BP 126/69; PULSE 60; TEMP 98.7
== END 2019-04-29 20:05 | disposition short-term general hospital (02) ==
LOC: JER 14:00
DX: J95.01 Hemorrhage from tracheostomy stoma (principal); I11.0 Hypertensive heart disease with heart failure; I50.9 Heart failure, unspecified; J96.90 Respiratory failure, unspecified, unspecified whether with hypoxia or hypercapnia; E03.9 Hypothyroidism, unspecified; Z87.891 Personal history of nicotine dependence; J44.9 Chronic obstructive pulmonary disease, unspecified; E11.9 Type 2 diabetes mellitus without complications; G40.909 Epilepsy, unspecified, not intractable, without status epilepticus; F31.9 Bipolar disorder, unspecified; E78.00 Pure hypercholesterolemia, unspecified; I74.9 Embolism and thrombosis of unspecified artery; Z79.01 Long term (current) use of anticoagulants; E66.01 Morbid (severe) obesity due to excess calories; Z68.45 Body mass index [BMI] 70 or greater, adult; Z99.11 Dependence on respirator [ventilator] status
CPT/HCPCS: 36415; 71045-TC-FY; 80053; 85025; 86850; 86900; 86901; 99284-25